=== PATIENT | female | born 1955 | race African-American/Black ===

== ENCOUNTER 2018-03-04 00:37 | Observation (INO) | payer OTHER, MEDICARE ==
[2018-03-04] MEDS: VANCOMYCIN 2 GM in IV 1/2 NORMAL SALINE 500 ML IV (02:30)
[2018-03-04] MEDS: PIPERACILLIN/TAZOBACTAM 2.25 GM in IV NORMAL SALINE 50ML 50 ML IV (02:57)
[2018-03-04 02:59] LABS: ADD MAN DIFF? NO
[2018-03-04 03:10] LABS: ANION GAP 14 (6-14); BLOOD UREA NITROGEN 23 mg/dL (7-20); BUN/CREATININE RATIO 3 (6-20); CALCIUM 8.3 mg/dL (8.5-10.1); CARBON DIOXIDE 25 mmol/L (21-32); CHLORIDE 91 mmol/L (98-107); CREATININE 8.9 mg/dL (0.6-1.0); GFR 5.4; GLUCOSE 99 mg/dL (70-99); POTASSIUM 3.1 mmol/L (3.5-5.1); SODIUM 130 mmol/L (136-145)
[2018-03-04 03:16] LABS: ALBUMIN 2.6 g/dL (3.4-5.0); ALBUMIN/GLOBULIN RATIO 0.5 (1.0-1.7); ALK PHOS 208 U/L (46-116); ALT (SGPT) 28 U/L (14-59); AST (SGOT) 81 U/L (15-37); TOTAL PROTEIN 7.9 g/dL (6.4-8.2)
[2018-03-04 03:21] LABS: TROPONINI < 0.017 ng/mL (0.000-0.055)
[2018-03-04 03:22] LABS: LACTIC ACID 2.6 mmol/L (0.4-2.0); NT-PRO BNP 4986 pg/mL (0-124)
[2018-03-04 03:28] LABS: BASO % 1 % (0-3); EOS # 0.1 x10^3/uL (0.0-0.7); EOS % 3 % (0-3); HEMATOCRIT 24.4 % (36.0-47.0); HEMOGLOBIN 8.5 g/dL (12.0-15.5); LYMPH # 0.8 x10^3/uL (1.0-4.8); LYMPH % 22 % (24-48); MEAN CORPUSCULAR HEMOGLOBIN 36 pg (25-35); MEAN CORPUSCULAR HGB CONC 35 g/dL (31-37); MEAN CORPUSCULAR VOLUME 105 fL (79-100); MONO # 0.5 x10^3/uL (0.0-1.1); MONO % 12 % (0-9); NEUT # 2.4 x10^3uL (1.8-7.7); NEUT % 62 % (31-73); PLATELET COUNT 186 x10^3/uL (140-400); RED BLOOD COUNT 2.33 x10^6/uL (3.50-5.40); RED CELL DISTRIBUTION WIDTH 16.4 % (11.5-14.5); WHITE BLOOD COUNT 3.8 x10^3/uL (4.0-11.0)
[2018-03-04 03:41] LABS: PROCALCITONIN 1.23 ng/mL (0.00-0.10)
[2018-03-04] MEDS: VANCOMYCIN PER PHARMACY MC (03:44)
[2018-03-04 07:56] LABS: LACTIC ACID 2.1 mmol/L (0.4-2.0)
[2018-03-04] MEDS: LACTOBACILLUS RHAMNOSUS GG 1 CAPSULE. PO ×2 (08:56→21:29)
[2018-03-04] MEDS: ONDANSETRON PF 4 MG/2 ML VIAL. IV (12:30)
[2018-03-04] MEDS ORDERED: IV NORMAL SALINE 1000ML BAG 1,000 ML IV (14:52)
[2018-03-04] MEDS ORDERED: DIALYSIS PATIENT. MC ×2 (15:00)
[2018-03-04 16:10] LABS: LIPASE 302 U/L (73-393)
[2018-03-04 16:10] LABS: CHOLESTEROL 148 mg/dL (0-200); HDLC 85 mg/dL (40-60); LDLC 45 mg/dL (0-100); NON-HDL CHOLESTEROL 63 mg/dL (0-129); TRIGLYCERIDES 88 mg/dL (0-150); VLDLC 18 mg/dL (0-40)
[2018-03-04 16:25] LABS: CHOLESTEROL/HDL RATIO 1.7
[2018-03-04] MEDS: amLODIPine BESYLATE 10 MG TABLET PO (18:06)
[2018-03-04] MEDS: PANTOPRAZOLE 40 MG TABLET.DR. PO (18:06)
[2018-03-04] MEDS: fentaNYL PF VIAL 100 MCG/2 ML VIAL IV ×2 (18:07→18:43)
[2018-03-05] MEDS: ONDANSETRON PF 4 MG/2 ML VIAL. IV (02:56)
[2018-03-05 03:54] LABS: HEMATOCRIT 24.7 % (36.0-47.0); HEMOGLOBIN 8.5 g/dL (12.0-15.5); MEAN CORPUSCULAR HEMOGLOBIN 37 pg (25-35); MEAN CORPUSCULAR HGB CONC 35 g/dL (31-37); MEAN CORPUSCULAR VOLUME 106 fL (79-100); PLATELET COUNT 129 x10^3/uL (140-400); RED BLOOD COUNT 2.33 x10^6/uL (3.50-5.40); RED CELL DISTRIBUTION WIDTH 16.2 % (11.5-14.5); WHITE BLOOD COUNT 4.5 x10^3/uL (4.0-11.0)
[2018-03-05 05:32] LABS: ALBUMIN 2.4 g/dL (3.4-5.0); ALBUMIN/GLOBULIN RATIO 0.5 (1.0-1.7); ALK PHOS 167 U/L (46-116); ALT (SGPT) 26 U/L (14-59); ANION GAP 8 (6-14); AST (SGOT) 78 U/L (15-37); BLOOD UREA NITROGEN 10 mg/dL (7-20); BUN/CREATININE RATIO 2 (6-20); CALCIUM 8.3 mg/dL (8.5-10.1); CARBON DIOXIDE 30 mmol/L (21-32); CHLORIDE 99 mmol/L (98-107); CREATININE 4.5 mg/dL (0.6-1.0); GFR 11.9; GLUCOSE 85 mg/dL (70-99); LIPASE 306 U/L (73-393); POTASSIUM 3.9 mmol/L (3.5-5.1); SODIUM 137 mmol/L (136-145); TOTAL BILIRUBIN 1.2 mg/dL (0.2-1.0); TOTAL PROTEIN 7.3 g/dL (6.4-8.2)
[2018-03-05 07:38] LABS: SEDIMENTATION RATE 86 (0-25)
[2018-03-05] MEDS: LACTOBACILLUS RHAMNOSUS GG 1 CAPSULE. PO ×2 (09:47→20:56)
[2018-03-05] MEDS: PANTOPRAZOLE 40 MG TABLET.DR. PO (09:47)
[2018-03-05] MEDS: CARVEDILOL 12.5 MG TABLET. PO (09:47)
[2018-03-05] MEDS: amLODIPine BESYLATE 10 MG TABLET PO (09:47)
[2018-03-05] MEDS: fentaNYL PF VIAL 100 MCG/2 ML VIAL IV (21:21)
[2018-03-06] MEDS: VANCOMYCIN RANDOM LEVEL. MC (02:30)
[2018-03-06 04:53] LABS: ANION GAP 8 (6-14); BLOOD UREA NITROGEN 17 mg/dL (7-20); CALCIUM 8.9 mg/dL (8.5-10.1); CARBON DIOXIDE 31 mmol/L (21-32); CHLORIDE 98 mmol/L (98-107); GFR 8.6; GLUCOSE 108 mg/dL (70-99); POTASSIUM 3.3 mmol/L (3.5-5.1); SODIUM 137 mmol/L (136-145)
[2018-03-06] MEDS: CARVEDILOL 12.5 MG TABLET. PO (08:57)
[2018-03-06] MEDS: LACTOBACILLUS RHAMNOSUS GG 1 CAPSULE. PO (08:57)
[2018-03-06] MEDS: PANTOPRAZOLE 40 MG TABLET.DR. PO (08:58)
[2018-03-06] MEDS: amLODIPine BESYLATE 10 MG TABLET PO (08:58)
[2018-03-06] MEDS ORDERED: diphenhydrAMINE 50 MG/ML VIAL IV ×2 (09:00)
[2018-03-06] MEDS ORDERED: DIALYSIS PATIENT. MC (09:00)
[2018-03-06] MEDS ORDERED: IV NORMAL SALINE 1000ML BAG 1,000 ML IV (09:00)
[2018-03-06] MEDS: VANCOMYCIN PER PHARMACY MC (10:09)
[2018-03-06] MEDS ORDERED: VANCOMYCIN 500 MG in IV NORMAL SALINE 100ML 100 ML IV (16:00)
== END 2018-03-06 14:00 | disposition home or self-care (01) ==
LOC: ER 00:37 → 5 SOUTH 01:45
DX: K80.10 Calculus of gallbladder with chronic cholecystitis without obstruction (principal); N18.6 End stage renal disease; I12.0 Hypertensive chronic kidney disease with stage 5 chronic kidney disease or end stage renal disease; J18.9 Pneumonia, unspecified organism; K76.0 Fatty (change of) liver, not elsewhere classified; E11.22 Type 2 diabetes mellitus with diabetic chronic kidney disease; B19.20 Unspecified viral hepatitis C without hepatic coma; K21.9 Gastro-esophageal reflux disease without esophagitis; E78.5 Hyperlipidemia, unspecified; Z99.2 Dependence on renal dialysis
CPT/HCPCS: 36415; 71045; 74176; 76700; 80048; 80053; 80061; 80202; 83605; 83690; 83880; 84145; 84484; 85025; 85027; 85651; 87040; 93005; 96365; 96366; 96368; 96375; 96376; 99285-25; G0378; G0379; J2405; J2543; J3010; J3370

== ENCOUNTER 2018-03-10 14:41 | Emergency (ER) | payer MEDICARE, OTHER ==
[2018-03-10 15:51] LABS: FECAL OB PT POSITIVE (NEG); NEG OBC FOB NEG; POS OBC FOB POS
== END 2018-03-10 18:16 | disposition home or self-care (01) ==
LOC: ER 14:41
DX: K64.9 Unspecified hemorrhoids (principal); E11.9 Type 2 diabetes mellitus without complications; I10 Essential (primary) hypertension; N19 Unspecified kidney failure; Z99.2 Dependence on renal dialysis; Z90.710 Acquired absence of both cervix and uterus
CPT/HCPCS: 82274; 99283

== ENCOUNTER 2018-03-12 10:25 | Inpatient (IN) | payer OTHER, MEDICARE ==
[~2018-03-12 10:25] MED LIST: IV RINGERS,LACTATED 1000ML 1,000 ML IV; LIDOCAINE 1% PF 2 ML VIAL. ID; MORPHINE SULFATE 4 MG/ML DISP.SYRIN. IV; ONDANSETRON PF 4 MG/2 ML VIAL. IV; PROCHLORPERAZINE 10 MG/2 ML VIAL. IV; fentaNYL PF VIAL 100 MCG/2 ML VIAL IV
[2018-03-12 11:28] LABS: ADD MAN DIFF? NO
[2018-03-12] MEDS ORDERED: LIDOCAINE 1% Multi-Dose 50 ML VIAL. (11:37)
[2018-03-12 11:38] LABS: BASO # 0.1 x10^3/uL (0.0-0.2); BASO % 1 % (0-3); EOS # 0.1 x10^3/uL (0.0-0.7); EOS % 1 % (0-3); HEMATOCRIT 28.2 % (36.0-47.0); HEMOGLOBIN 9.8 g/dL (12.0-15.5); LYMPH # 1.1 x10^3/uL (1.0-4.8); LYMPH % 14 % (24-48); MEAN CORPUSCULAR HEMOGLOBIN 37 pg (25-35); MEAN CORPUSCULAR HGB CONC 35 g/dL (31-37); MEAN CORPUSCULAR VOLUME 106 fL (79-100); MONO # 0.6 x10^3/uL (0.0-1.1); MONO % 9 % (0-9); NEUT # 5.6 x10^3uL (1.8-7.7); NEUT % 75 % (31-73); PLATELET COUNT 180 x10^3/uL (140-400); RED BLOOD COUNT 2.65 x10^6/uL (3.50-5.40); RED CELL DISTRIBUTION WIDTH 15.7 % (11.5-14.5); WHITE BLOOD COUNT 7.5 x10^3/uL (4.0-11.0)
[2018-03-12 11:41] LABS: ANION GAP 9 (6-14); BLOOD UREA NITROGEN 14 mg/dL (7-20); CALCIUM 9.2 mg/dL (8.5-10.1); CARBON DIOXIDE 30 mmol/L (21-32); CHLORIDE 93 mmol/L (98-107); CREATININE 5.8 mg/dL (0.6-1.0); GFR 8.9; GLUCOSE 134 mg/dL (70-99); POTASSIUM 3.5 mmol/L (3.5-5.1); SODIUM 132 mmol/L (136-145)
[2018-03-12 11:47] LABS: ALBUMIN 3.1 g/dL (3.4-5.0); TOTAL BILIRUBIN 1.1 mg/dL (0.2-1.0)
[2018-03-12] MEDS ORDERED: SEVOFLURANE 61 TO 120 MINUTES. IH (11:51)
[2018-03-12] MEDS ORDERED: ROCURONIUM 50 MG/5 ML VIAL. (11:52)
[2018-03-12] MEDS ORDERED: MIDAZOLAM HCL/PF 2 MG/2 ML VIAL. (11:52)
[2018-03-12] MEDS ORDERED: NEOSTIGMINE METHYLSULFATE 5 MG/5 ML SYRINGE. (11:52)
[2018-03-12] MEDS ORDERED: GLYCOPYRROLATE 1 MG/5 ML VIAL. (11:52)
[2018-03-12] MEDS ORDERED: fentaNYL PF VIAL 100 MCG/2 ML VIAL (11:52)
[2018-03-12] MEDS ORDERED: PROPOFOL 20 ML IV (11:53)
[2018-03-12] MEDS ORDERED: LIDOCAINE 2% PF Vial for OR 5 ML VIAL. (11:53)
[2018-03-12] MEDS ORDERED: KETOROLAC 30 MG/ML INJ FOR OR. INJ (11:53)
[2018-03-12] MEDS ORDERED: DEXAMETHASONE SOD PHOS 20 MG/5 ML VIAL. (11:53)
[2018-03-12] MEDS ORDERED: ONDANSETRON PF 4 MG/2 ML VIAL. (11:53)
[2018-03-12 11:55] LABS: INR 1.2 (0.8-1.1); PARTIAL THROMBOPLASTIN TIME 29 SEC (24-38); PROTHROMBIN TIME PATIENT 14.4 SEC (11.7-14.0)
[2018-03-12] MEDS ORDERED: ceFAZolin 2GM PREMIX 2 GM/50 ML BAG IV (12:00)
[2018-03-12] MEDS: IV RINGERS,LACTATED 1000ML 1,000 ML IV (12:00)
[2018-03-12] MEDS: IOHEXOL 300 MG/ML 100ML VIAL. (14:45)
[2018-03-12] MEDS: BUPIVAC MPF-EPI 0.5%-1:200000 30 ML VIAL. INJ (14:45)
[2018-03-12] MEDS ORDERED: PHENYLEPHRINE in 0.9% NACL PF 1 MG/10 ML SYRINGE. IV (14:48)
[2018-03-12] MEDS: SURGICEL HEMOSTAT 4X8 EACH. (15:19)
[2018-03-12 16:06] LABS: POC GLUCOSE 120 mg/dL (70-99)
[2018-03-12] MEDS ORDERED: hydrALAZINE 20 MG/ML VIAL. (16:42)
[2018-03-12] MEDS: hydrALAZINE 20 MG/ML VIAL. IVP ×2 (16:45→17:07)
[2018-03-12] MEDS ORDERED: 0.9 % SODIUM CHLORIDE 10 ML DISP.SYRIN. IV (16:45)
[2018-03-12] MEDS ORDERED: diphenhydrAMINE 50 MG/ML VIAL IV (16:45)
[2018-03-12] MEDS ORDERED: MORPHINE SULFATE 2 MG/ML DISP.SYRIN. IV (16:45)
[2018-03-12] MEDS ORDERED: DEXTROSE 50% 25 GM / 50ML DISP.SYRIN. IV (16:45)
[2018-03-12] MEDS ORDERED: ONDANSETRON PF 4 MG/2 ML VIAL. IV (16:45)
[2018-03-12] MEDS: fentaNYL PF VIAL 100 MCG/2 ML VIAL IV (17:06)
[2018-03-12] MEDS: IV 1/2 NORMAL SALINE 1,000 ML IV (18:00)
[2018-03-12] MEDS: CARVEDILOL 12.5 MG TABLET. PO (18:14)
[2018-03-12] MEDS: HYDROcodone/APAP 5/325MG 1 TAB TABLET PO ×2 (18:15→22:23)
[2018-03-12 19:11] LABS: POC GLUCOSE 139 mg/dL (70-99)
[2018-03-12 20:26] LABS: POC GLUCOSE 141 mg/dL (70-99)
[2018-03-12] MEDS: LACTOBACILLUS RHAMNOSUS GG 1 CAPSULE. PO (22:23)
[2018-03-13] MEDS: PANTOPRAZOLE 40 MG TABLET.DR. PO (06:52)
[2018-03-13] MEDS: HYDROcodone/APAP 5/325MG 1 TAB TABLET PO ×3 (06:52→23:09)
[2018-03-13] MEDS: HEPARIN PF for SUB-Q USE 5,000 UNIT/0.5 ML VIAL. SQ ×3 (06:58→23:16)
[2018-03-13 08:19] LABS: POC GLUCOSE 134 mg/dL (70-99)
[2018-03-13] MEDS: LACTOBACILLUS RHAMNOSUS GG 1 CAPSULE. PO ×2 (08:55→21:32)
[2018-03-13] MEDS: CARVEDILOL 12.5 MG TABLET. PO ×2 (08:55→18:02)
[2018-03-13] MEDS: amLODIPine BESYLATE 10 MG TABLET PO (08:56)
[2018-03-13] MEDS ORDERED: NON FORMULARY ITEM (Metoprolol Succinate (Toprol Xl) 1 TAB) PO (09:00)
[2018-03-13] MEDS ORDERED: IV NORMAL SALINE 1000ML BAG 1,000 ML IV ×2 (12:20)
[2018-03-13 12:21] LABS: POC GLUCOSE 126 mg/dL (70-99)
[2018-03-13] MEDS ORDERED: DIALYSIS PATIENT. MC ×2 (12:30)
[2018-03-13] MEDS: IV 1/2 NORMAL SALINE 1,000 ML IV (14:00)
[2018-03-13] MEDS ORDERED: MORPHINE SULFATE 4 MG/ML DISP.SYRIN. IV (17:23)
[2018-03-13 18:27] LABS: POC GLUCOSE 117 mg/dL (70-99)
[2018-03-13] MEDS ORDERED: PHENYLEPH/MINERAL OIL/PETROLAT RECTAL OINTMENT 28GM TUBE. RC (19:45)
[2018-03-13] MEDS: diphenhydrAMINE HCL 25 MG CAPSULE PO (21:32)
[2018-03-14] MEDS: PANTOPRAZOLE 40 MG TABLET.DR. PO (06:15)
[2018-03-14] MEDS: HYDROcodone/APAP 5/325MG 1 TAB TABLET PO ×2 (06:16→10:30)
[2018-03-14] MEDS: HEPARIN PF for SUB-Q USE 5,000 UNIT/0.5 ML VIAL. SQ ×2 (06:19→14:00)
[2018-03-14] MEDS: CARVEDILOL 12.5 MG TABLET. PO (08:00)
[2018-03-14] MEDS: LACTOBACILLUS RHAMNOSUS GG 1 CAPSULE. PO (08:09)
[2018-03-14] MEDS: diphenhydrAMINE HCL 25 MG CAPSULE PO (08:09)
[2018-03-14] MEDS: amLODIPine BESYLATE 10 MG TABLET PO (09:12)
[2018-03-14] MEDS: IV 1/2 NORMAL SALINE 1,000 ML IV (10:00)
== END 2018-03-14 15:00 | disposition home or self-care (01) | DRG 417 ==
LOC: SURG 10:25 → 4 NORTH 17:42
PROC: 0FT44ZZ Resection of Gallbladder, Percutaneous Endoscopic Approach (ICD-10-PCS; principal; 2018-03-12 13:00)
DX: K80.20 Calculus of gallbladder without cholecystitis without obstruction (principal); N18.6 End stage renal disease; E11.22 Type 2 diabetes mellitus with diabetic chronic kidney disease; I12.0 Hypertensive chronic kidney disease with stage 5 chronic kidney disease or end stage renal disease; E78.5 Hyperlipidemia, unspecified; K21.9 Gastro-esophageal reflux disease without esophagitis; E66.9 Obesity, unspecified; E21.3 Hyperparathyroidism, unspecified; M06.9 Rheumatoid arthritis, unspecified; Z90.710 Acquired absence of both cervix and uterus; Z99.2 Dependence on renal dialysis
CPT/HCPCS: 36415; 80048; 82040; 82247; 82962; 85025; 85610; 85730; 88304; 97116-GP; 97162-GP; 97165-GO; A7015; J0360; J0690; J1100; J1885; J2250; J2370; J2405; J2704; J2710; J3010; J3490; J7030; Q0163; Q9967

== ENCOUNTER 2018-05-27 15:42 | Inpatient (IN) | payer OTHER ==
[2018-05-27 16:06] LABS: BILIRUBIN,URINE NEGATIVE (NEG); CLARITY,URINE TURBID; COLOR,URINE YELLOW; GLUCOSE,URINE NEGATIVE (NEG); NITRITE,URINE NEGATIVE (NEG); PROTEIN,URINE 100 mg/dL (NEG-TRACE); UROBILINOGEN,URINE 0.2 mg/dL (0.2 mg/dL)
[2018-05-27 16:13] LABS: BACTERIA,URINE MANY /HPF (0-FEW); SQUAMOUS EPITHELIAL CELL,UR MANY /LPF; WBC,URINE >40 /HPF (0-4)
[2018-05-27] MEDS: ONDANSETRON PF 4 MG/2 ML VIAL. IV (16:26)
[2018-05-27 16:32] LABS: ADD MAN DIFF? NO
[2018-05-27 16:36] LABS: BASO # 0.1 x10^3/uL (0.0-0.2); BASO % 1 % (0-3); EOS % 1 % (0-3); HEMOGLOBIN 11.3 g/dL (12.0-15.5); LYMPH # 0.9 x10^3/uL (1.0-4.8); LYMPH % 19 % (24-48); MEAN CORPUSCULAR HEMOGLOBIN 37 pg (25-35); MEAN CORPUSCULAR HGB CONC 34 g/dL (31-37); MEAN CORPUSCULAR VOLUME 110 fL (79-100); MONO # 0.4 x10^3/uL (0.0-1.1); MONO % 9 % (0-9); NEUT # 3.4 x10^3uL (1.8-7.7); NEUT % 71 % (31-73); PLATELET COUNT 178 x10^3/uL (140-400); RED BLOOD COUNT 3.01 x10^6/uL (3.50-5.40); WHITE BLOOD COUNT 4.8 x10^3/uL (4.0-11.0)
[2018-05-27 16:51] LABS: ANION GAP 12 (6-14); BLOOD UREA NITROGEN 17 mg/dL (7-20); BUN/CREATININE RATIO 2 (6-20); CALCIUM 9.3 mg/dL (8.5-10.1); CARBON DIOXIDE 28 mmol/L (21-32); CHLORIDE 87 mmol/L (98-107); CREATININE 7.8 mg/dL (0.6-1.0); GFR 6.3; GLUCOSE 103 mg/dL (70-99); POTASSIUM 3.8 mmol/L (3.5-5.1); SODIUM 127 mmol/L (136-145)
[2018-05-27 16:57] LABS: ALBUMIN 2.5 g/dL (3.4-5.0); ALBUMIN/GLOBULIN RATIO 0.4 (1.0-1.7); ALK PHOS 224 U/L (46-116); AST (SGOT) 59 U/L (15-37); TOTAL BILIRUBIN 0.7 mg/dL (0.2-1.0); TOTAL PROTEIN 8.1 g/dL (6.4-8.2)
[2018-05-27 17:15] LABS: ALT (SGPT) 25 U/L (14-59)
[2018-05-27] MEDS: fentaNYL PF VIAL 100 MCG/2 ML VIAL IV ×2 (17:25→21:38)
[2018-05-27] MEDS ORDERED: ACETAMINOPHEN 500 MG TABLET PO (17:30)
[2018-05-27] MEDS ORDERED: ONDANSETRON PF 4 MG/2 ML VIAL. IV (17:30)
[2018-05-27] MEDS ORDERED: LABETALOL 20 MG/4 ML DISP.SYRIN. IVP (17:30)
[2018-05-27] MEDS: IV NORMAL SALINE 1000ML BAG 1,000 ML IV (18:10)
[2018-05-27] MEDS: LACTOBACILLUS RHAMNOSUS GG 1 CAPSULE. PO (21:40)
[2018-05-28] MEDS: ACETAMINOPHEN/CODEINE 300/30MG TABLET. PO ×2 (00:38→08:53)
[2018-05-28] MEDS: IV NORMAL SALINE 1000ML BAG 1,000 ML IV ×3 (05:33→23:45)
[2018-05-28 06:37] LABS: ADD MAN DIFF? NO
[2018-05-28 07:03] LABS: ANION GAP 11 (6-14); BASO % 1 % (0-3); BLOOD UREA NITROGEN 21 mg/dL (7-20); CALCIUM 8.3 mg/dL (8.5-10.1); CARBON DIOXIDE 27 mmol/L (21-32); CHLORIDE 90 mmol/L (98-107); CREATININE 7.9 mg/dL (0.6-1.0); EOS # 0.1 x10^3/uL (0.0-0.7); EOS % 2 % (0-3); GFR 6.2; GLUCOSE 83 mg/dL (70-99); HEMATOCRIT 31.2 % (36.0-47.0); HEMOGLOBIN 10.8 g/dL (12.0-15.5); LYMPH % 25 % (24-48); MEAN CORPUSCULAR HEMOGLOBIN 38 pg (25-35); MEAN CORPUSCULAR HGB CONC 35 g/dL (31-37); MEAN CORPUSCULAR VOLUME 110 fL (79-100); MONO # 0.4 x10^3/uL (0.0-1.1); MONO % 11 % (0-9); NEUT # 2.4 x10^3uL (1.8-7.7); NEUT % 61 % (31-73); PLATELET COUNT 157 x10^3/uL (140-400); RED BLOOD COUNT 2.83 x10^6/uL (3.50-5.40); RED CELL DISTRIBUTION WIDTH 17.2 % (11.5-14.5); SODIUM 128 mmol/L (136-145)
[2018-05-28 08:07] LABS: ANISOCYTOSIS PRESENT
[2018-05-28 08:30] LABS: PLT ESTIMATE ADEQUATE (ADEQUATE)
[2018-05-28 08:40] LABS: POC GLUCOSE 82 mg/dL (70-99)
[2018-05-28] MEDS: amLODIPine BESYLATE 10 MG TABLET PO (08:53)
[2018-05-28] MEDS: LACTOBACILLUS RHAMNOSUS GG 1 CAPSULE. PO ×2 (08:53→20:45)
[2018-05-28] MEDS: PANTOPRAZOLE 40 MG TABLET.DR. PO (08:53)
[2018-05-28] MEDS: CARVEDILOL 12.5 MG TABLET. PO ×2 (08:54→17:01)
[2018-05-28] MEDS: HYDROcodone/APAP 5/325MG 1 TAB TABLET PO ×2 (08:58→19:54)
[2018-05-28] MEDS ORDERED: NON FORMULARY ITEM (Metoprolol Succinate (Toprol Xl) 1 TAB) PO (09:00)
[2018-05-28 12:11] LABS: POC GLUCOSE 125 mg/dL (70-99)
[2018-05-28] MEDS: cefTRIAXone IV Push 2 GM VIAL. IVP (17:02)
[2018-05-28 17:25] LABS: POC GLUCOSE 127 mg/dL (70-99)
[2018-05-28] MEDS ORDERED: CEFTRIAXONE SODIUM IV (17:30)
[2018-05-28] MEDS ORDERED: DEXTROSE 5% IV (17:30)
[2018-05-28 21:23] LABS: POC GLUCOSE 122 mg/dL (70-99)
[2018-05-29] MEDS: HYDROcodone/APAP 5/325MG 1 TAB TABLET PO ×2 (01:48→08:38)
[2018-05-29] MEDS: ONDANSETRON PF 4 MG/2 ML VIAL. IV (06:47)
[2018-05-29 07:50] LABS: ADD MAN DIFF? NO
[2018-05-29 08:10] LABS: BASO % 1 % (0-3); EOS # 0.1 x10^3/uL (0.0-0.7); EOS % 3 % (0-3); HEMATOCRIT 33.6 % (36.0-47.0); HEMOGLOBIN 11.3 g/dL (12.0-15.5); LYMPH # 0.7 x10^3/uL (1.0-4.8); LYMPH % 22 % (24-48); MEAN CORPUSCULAR HEMOGLOBIN 38 pg (25-35); MEAN CORPUSCULAR HGB CONC 34 g/dL (31-37); MEAN CORPUSCULAR VOLUME 112 fL (79-100); MONO # 0.3 x10^3/uL (0.0-1.1); MONO % 9 % (0-9); NEUT % 66 % (31-73); PLATELET COUNT 129 x10^3/uL (140-400); RED BLOOD COUNT 3.01 x10^6/uL (3.50-5.40); RED CELL DISTRIBUTION WIDTH 16.5 % (11.5-14.5)
[2018-05-29 08:18] LABS: ANION GAP 13 (6-14); BLOOD UREA NITROGEN 26 mg/dL (7-20); CALCIUM 8.2 mg/dL (8.5-10.1); CARBON DIOXIDE 22 mmol/L (21-32); CHLORIDE 93 mmol/L (98-107); CREATININE 8.5 mg/dL (0.6-1.0); GFR 5.7; GLUCOSE 109 mg/dL (70-99); POTASSIUM 3.8 mmol/L (3.5-5.1); SODIUM 128 mmol/L (136-145)
[2018-05-29] MEDS ORDERED: IV NORMAL SALINE 1000ML BAG 1,000 ML IV ×2 (08:23)
[2018-05-29] MEDS ORDERED: DIALYSIS PATIENT. MC (08:30)
[2018-05-29] MEDS ORDERED: diphenhydrAMINE 50 MG/ML VIAL IV ×2 (08:30)
[2018-05-29] MEDS ORDERED: 0.9 % SODIUM CHLORIDE 10 ML DISP.SYRIN. IV ×2 (08:30)
[2018-05-29] MEDS: PROCHLORPERAZINE 10 MG/2 ML VIAL. IV (08:37)
[2018-05-29] MEDS: PANTOPRAZOLE 40 MG TABLET.DR. PO (08:38)
[2018-05-29] MEDS: LACTOBACILLUS RHAMNOSUS GG 1 CAPSULE. PO ×2 (08:38→20:55)
[2018-05-29] MEDS: IV NORMAL SALINE 1000ML BAG 1,000 ML IV (09:45)
[2018-05-29 11:22] LABS: POC GLUCOSE 102 mg/dL (70-99)
[2018-05-29 11:25] LABS: POC GLUCOSE 98 mg/dL (70-99)
[2018-05-29] MEDS: amLODIPine BESYLATE 10 MG TABLET PO (14:32)
[2018-05-29] MEDS: CARVEDILOL 12.5 MG TABLET. PO ×2 (14:33→15:19)
[2018-05-29] MEDS: cefTRIAXone IV Push 2 GM VIAL. IVP (16:58)
[2018-05-29 17:15] LABS: POC GLUCOSE 124 mg/dL (70-99)
[2018-05-29] MEDS: BISACODYL 10 MG SUPP.RECT. PR (19:41)
[2018-05-29 21:11] LABS: POC GLUCOSE 77 mg/dL (70-99)
[2018-05-30] MEDS: HYDROcodone/APAP 5/325MG 1 TAB TABLET PO (01:36)
[2018-05-30 06:07] LABS: ADD MAN DIFF? NO
[2018-05-30 06:26] LABS: BASO % 1 % (0-3); EOS # 0.1 x10^3/uL (0.0-0.7); EOS % 2 % (0-3); HEMATOCRIT 29.4 % (36.0-47.0); HEMOGLOBIN 9.9 g/dL (12.0-15.5); LYMPH # 1.1 x10^3/uL (1.0-4.8); LYMPH % 22 % (24-48); MEAN CORPUSCULAR HEMOGLOBIN 38 pg (25-35); MEAN CORPUSCULAR HGB CONC 34 g/dL (31-37); MEAN CORPUSCULAR VOLUME 113 fL (79-100); MONO # 0.6 x10^3/uL (0.0-1.1); MONO % 12 % (0-9); NEUT % 63 % (31-73); PLATELET COUNT 107 x10^3/uL (140-400); RED BLOOD COUNT 2.61 x10^6/uL (3.50-5.40); RED CELL DISTRIBUTION WIDTH 16.7 % (11.5-14.5); WHITE BLOOD COUNT 4.8 x10^3/uL (4.0-11.0)
[2018-05-30 06:43] LABS: ANION GAP 7 (6-14); BLOOD UREA NITROGEN 12 mg/dL (7-20); CALCIUM 8.2 mg/dL (8.5-10.1); CARBON DIOXIDE 30 mmol/L (21-32); CHLORIDE 98 mmol/L (98-107); GFR 10.5; GLUCOSE 106 mg/dL (70-99); POTASSIUM 3.7 mmol/L (3.5-5.1); SODIUM 135 mmol/L (136-145)
[2018-05-30 08:21] LABS: POC GLUCOSE 101 mg/dL (70-99)
== END 2018-05-30 09:45 | disposition home or self-care (01) | DRG 689 ==
LOC: ER 15:42 → 6 SOUTH 17:23
PROC: 5A1D70Z Performance of Urinary Filtration, Intermittent, Less than 6 Hours Per Day (ICD-10-PCS; principal; 2018-05-29)
DX: N39.0 Urinary tract infection, site not specified (principal); N18.6 End stage renal disease; K22.6 Gastro-esophageal laceration-hemorrhage syndrome; K76.6 Portal hypertension; E87.1 Hypo-osmolality and hyponatremia; I12.0 Hypertensive chronic kidney disease with stage 5 chronic kidney disease or end stage renal disease; D63.1 Anemia in chronic kidney disease; E11.22 Type 2 diabetes mellitus with diabetic chronic kidney disease; E21.3 Hyperparathyroidism, unspecified; E66.9 Obesity, unspecified; E78.5 Hyperlipidemia, unspecified; E86.0 Dehydration; G89.29 Other chronic pain; I25.10 Atherosclerotic heart disease of native coronary artery without angina pectoris; K21.9 Gastro-esophageal reflux disease without esophagitis; K42.9 Umbilical hernia without obstruction or gangrene; K59.00 Constipation, unspecified; K74.60 Unspecified cirrhosis of liver; K76.0 Fatty (change of) liver, not elsewhere classified; M06.9 Rheumatoid arthritis, unspecified; N20.0 Calculus of kidney; Z68.34 Body mass index [BMI] 34.0-34.9, adult; Z83.3 Family history of diabetes mellitus; Z90.710 Acquired absence of both cervix and uterus; Z91.15 Patient's noncompliance with renal dialysis; Z99.2 Dependence on renal dialysis
CPT/HCPCS: 36415; 74176; 80048; 80053; 81001; 82533; 82962; 85025; 87086; 96361; 96365; 96366; 96375; 97161-GP; 97166-GO; 99285; 99285-25; J0690; J0696; J0780; J2405; J3010; J7030

== ENCOUNTER 2018-09-30 09:39 | Inpatient (IN) | payer OTHER ==
[~2018-09-30] VITALS: Ht 160 cm; Wt 82.6 kg
[~2018-09-30 09:39] MED LIST changes: +AMLO10TA6 PO; +AMOX1TAB61 PO; +CARV25TA PO; +CARV25TA2 PO; +CIPR250T30 PO; +FERR325T72 PO; +HYDR-2761 PO; -IV RINGERS,LACTATED 1000ML 1,000 ML IV; +LACT1CAP19 PO; -LIDOCAINE 1% PF 2 ML VIAL. ID; +METO-269 PO; -MORPHINE SULFATE 4 MG/ML DISP.SYRIN. IV; -ONDANSETRON PF 4 MG/2 ML VIAL. IV; +OXYC1TAB19 PO; +PANT40TA5 PO; +POLY17PO29 PO; -PROCHLORPERAZINE 10 MG/2 ML VIAL. IV; +Pantoprazole PO; +VIT1TABL57 PO; -fentaNYL PF VIAL 100 MCG/2 ML VIAL IV
--- NOTE | 2018-09-30 09:56 | PHYS DOC ---
Past Medical History Past Medical History: Diabetes-Type II, GI Bleed, Hypertension, Renal Failure, Other Additional Past Medical Histor: DIARRHEA Past Surgical History: Hysterectomy, Tonsillectomy Additional Past Surgical Histo: RT KNEE, SHUNT RIGHT CHEST, dialysis graft Alcohol Use: Occasionally Drug Use: None Adult General HPI HPI Patient is a 63-year-old female with a past history of hypertension, as well as ESRD on hemodialysis Saturday and Saturday. She states that for the past 24 hours she has had several episodes of vomiting and diarrhea, as well as abdominal distention and generalized abdominal discomfort. She has not had any bloody emesis or stools. She denies any chest pain or shortness of breath. She has not had any fevers or chills, and denies a cough. There are no alleviating or exacerbating factors to the patient's symptoms. The patient did, however, missed her last dialysis on Saturday. Her last actual dialysis session was this past . She was due for hemodialysis today. Review of Systems Review of Systems Constitutional: Denies fever or chills [] Eyes: Denies change in visual acuity, redness, or eye pain [] HENT: Denies nasal congestion or sore throat [] Respiratory: Denies cough or shortness of breath [] Cardiovascular: The patient denies any shortness of breath, chest pain, palpitations, or orthopnea [] GI: No additional information not addressed in HPI [] : Denies dysuria or hematuria [] Musculoskeletal: Denies back pain or joint pain [] Integument: Denies rash or skin lesions [] Neurologic: Denies headache, focal weakness or sensory changes [] Endocrine: Denies polyuria or polydipsia [] All other systems were reviewed and found to be within normal limits, except as documented in this note. Current Medications Current Medications Current Medications Medications (Trade) Dose Ordered Sig/Kimberly Start Time Stop Time Status Last Admin Dose Admin Iohexol (Omnipaque 300 Mg/ml) 60 ml 1X ONCE 09/30/18 10:45 09/30/18 10:47 DC 09/30/18 10:42 60 ML Ondansetron HCl (Zofran) 4 mg 1X ONCE 09/30/18 10:00 09/30/18 10:02 DC 09/30/18 10:13 4 MG Sodium Chloride 250 ml @ 250 mls/hr 1X ONCE 09/30/18 10:00 09/30/18 10:59 DC 09/30/18 10:13 250 MLS/HR Allergies Allergies Allergies Coded Allergies Type Severity Reaction Last Updated Verified No Known Drug Allergies 03/12/18 No Physical Exam Physical Exam PHYSICAL EXAM: CONSTITUTIONAL: Well developed, well nourished HEAD: normocephalic, atraumatic EENT: PERRL, EOMI. Conjunctivae normal color, sclerae non-icteric; moist mucous membranes. NECK: Supple, non-tender; no meningismus. LUNGS: Lungs CTA, breathing even and unlabored. Normal air movement. HEART: Regular rate and rhythm, no murmur CHEST: No deformity; non-tender ABDOMEN: The abdomen is soft, moderately distended, with slightly diminished and questionably high-pitched bowel sounds, diffusely tender, without focal tenderness, rebound, or guarding, no masses or bruits. EXTREM: Normal ROM; no deformity, no calf tenderness. Normal pulses palpable in all extremities. There is mild bilateral pedal edema. SKIN: No rash; no diaphoresis NEURO: Alert; normal speech and cognition; CN's grossly intact; strength grossly intact without focal deficit. BACK: No CVA TTP. Current Patient Data Vital Signs Vital Signs Date Time Temp Pulse Resp B/P (MAP) Pulse Ox O2 Delivery O2 Flow Rate FiO2 09/30/18 09:41 98.3 110 22 195/96 (129) 95 Room Air 98.3 Lab Values Laboratory Tests Test 09/30/18 10:03 09/30/18 10:45 POC Hemoglobin 10.2 g/dL (12-15) L POC Hematocrit 30 % (36-40) L POC Sodium 123 mmol/L (135-145) L POC Potassium 4.1 mmol/L (3.5-5.0) POC Chloride 84 mmol/L (98-110) L POC Total CO2 28 mmol/L (23-32) Anion Gap 17 mmol/L (6-14) H 13 (6-14) POC Blood Urea Nitrogen 40 mg/dL (8-26) H POC Creatinine 8.3 mg/dL (0.5-1.4) H Glucose Level 121 mg/dL (70-99) H 109 mg/dL (70-99) H POC Ionized Calcium (Hayde) 0.97 mmol/L (1.13-1.32) L White Blood Count 6.5 x10^3/uL (4.0-11.0) Red Blood Count 2.38 x10^6/uL (3.50-5.40) L Hemoglobin 9.3 g/dL (12.0-15.5) L Hematocrit 26.2 % (36.0-47.0) L Mean Corpuscular Volume 110 fL (79-100) H Mean Corpuscular Hemoglobin 39 pg (25-35) H Mean Corpuscular Hemoglobin Concent 35 g/dL (31-37) Red Cell Distribution Width 15.5 % (11.5-14.5) H Platelet Count 120 x10^3/uL (140-400) L Neutrophils (%) (Auto) 83 % (31-73) H Lymphocytes (%) (Auto) 8 % (24-48) L Monocytes (%) (Auto) 8 % (0-9) Eosinophils (%) (Auto) 0 % (0-3) Basophils (%) (Auto) 1 % (0-3) Neutrophils # (Auto) 5.4 x10^3uL (1.8-7.7) Lymphocytes # (Auto) 0.5 x10^3/uL (1.0-4.8) L Monocytes # (Auto) 0.5 x10^3/uL (0.0-1.1) Eosinophils # (Auto) 0.0 x10^3/uL (0.0-0.7) Basophils # (Auto) 0.0 x10^3/uL (0.0-0.2) Platelet Estimate Decreased (ADEQUATE) Large Platelets Occ Anisocytosis Slight Macrocytosis Slight Prothrombin Time 13.9 SEC (11.7-14.0) Prothrombin Time INR 1.1 (0.8-1.1) Sodium Level 124 mmol/L (136-145) L Potassium Level 3.8 mmol/L (3.5-5.1) Chloride Level 86 mmol/L (98-107) L Carbon Dioxide Level 25 mmol/L (21-32) Blood Urea Nitrogen 37 mg/dL (7-20) H Creatinine 8.1 mg/dL (0.6-1.0) H Estimated GFR (Cockcroft-Gault) 6.0 BUN/Creatinine Ratio 5 (6-20) L Calcium Level 8.6 mg/dL (8.5-10.1) Total Bilirubin 1.1 mg/dL (0.2-1.0) H Aspartate Amino Transferase (AST) 71 U/L (15-37) H Alanine Aminotransferase (ALT) 22 U/L (14-59) Alkaline Phosphatase 253 U/L (46-116) H Creatine Kinase 66 U/L (26-192) Creatine Kinase MB (Mass) 1.2 ng/mL (0.0-3.6) Creatine Kinase MB Relative Index % (0-4) Troponin I Quantitative < 0.017 ng/mL (0.000-0.055) Total Protein 8.3 g/dL (6.4-8.2) H Albumin 2.6 g/dL (3.4-5.0) L Albumin/Globulin Ratio 0.5 (1.0-1.7) L Lipase 118 U/L (73-393) Laboratory Tests 09/30/18 10:45 Laboratory Tests 09/30/18 10:03 09/30/18 10:45 EKG EKG [Sinus tachycardia at a rate of 108 bpm, normal axis, normal intervals, normal T waves, there are no acute ischemic ST/T changes] Radiology/Procedures Radiology/Procedures [PROCEDURE: PORTABLE CHEST 1V Portable chest, 09/30/2018: HISTORY: Weakness, nausea and vomiting Comparison is made to a study from 04/21/2018. The heart is at the upper limits of normal in size. There is calcific plaquing of the aorta. The pulmonary vascularity is at the upper limits of normal. No pulmonary infiltrate is seen. There is no evidence of pleural fluid. IMPRESSION: No acute cardiopulmonary abnormality is detected.] PROCEDURE: CT ABD PELV W/ IV CONTRST ONLY CT of the abdomen and pelvis with contrast, 09/30/2018: HISTORY: Abdominal pain, vomiting, diarrhea Multidetector CT imaging was performed following an IV bolus injection of iodinated contrast material. No oral contrast material was administered for this study. Comparison is made to an exam from 05/27/2018. Small bilateral pleural effusions have developed. The hepatic contour is irregular compatible with cirrhosis. No hepatic mass is evident. The gallbladder is surgically absent. There is a recanalized umbilical vein with mild anterior abdominal wall varices. There is minimal ascites in the abdomen and pelvis. No pancreatic mass is evident. The spleen is of normal size. The kidneys show no evidence of obstruction. There is a small nonobstructing calculus in the lower pole of the right kidney. There is mild bilateral perinephric edema, similar to that seen on 05/27/2018. Aortoiliac calcific plaquing is present without evidence of aneurysm. No abdominal or pelvic adenopathy is seen. The bowel loops are not dilated. A portion of the appendix is visualized and it is unremarkable. There is mild streaky edema in the mesentery. No free air is evident in the abdomen or pelvis. A small fat-containing umbilical hernia is again noted. There are moderate scattered degenerative changes in the spine. An intramedullary fermin is present in the right femur. IMPRESSION: 1. Small bilateral pleural effusions have developed. 2. Hepatic cirrhosis with recanalized umbilical vein collateral vessels in the anterior abdominal wall. 3. Mild streaky mesenteric edema with a small amount of ascites in the abdomen and pelvis likely secondary to liver disease with portal hypertension. 4. Nonobstructing right intrarenal calculus. 5. Small fat-containing umbilical hernia. Course & Med Decision Making Course & Med Decision Making Pertinent Labs and Imaging studies reviewed. (See chart for details) [11:30 AM:The patient's condition remains stable. I spoke with the hospitalist , who accepted the patient to the hospital for further evaluation and treatment. ] Dragon Disclaimer Dragon Disclaimer This electronic medical record was generated, in whole or in part, using a voice recognition dictation system. Departure Departure Impression: Primary Impression: Nausea vomiting and diarrhea Additional Impressions: Hyponatremia ESRD (end stage renal disease) Disposition: ADMITTED INPATIENT Admitting Physician: Douglas Jacobo Condition: STABLE Referrals: NO PCP (PCP) Problem Qualifiers JANETT GARCIA MD Sep 30, 2018 09:56
[2018-09-30] MEDS ORDERED: ONDANSETRON PF 4 MG/2 ML VIAL. IV ONE (10:00)
[2018-09-30] MEDS ORDERED: IV NORMAL SALINE 500ML BAG 250 ML IV ONE (10:00)
[2018-09-30 10:09] LABS: CREATININE ISTAT 8.3 mg/dL (0.5-1.4); HEMOGLOBIN ISTAT 10.2 g/dL (12-15); ION CA ISTAT 0.97 mmol/L (1.13-1.32); POTASSIUM ISTAT 4.1 mmol/L (3.5-5.0)
--- NOTE | 2018-09-30 10:11 | EKG ---
[facility] [address] [place] [address] Test Date: 2018-09-30 Test Time: 09:54:59 Pat Name: CESAR AGEE Department: Room: Gender: F Inspector Balance Bridge: DIANE : 1955 Requested By: JANETT GARCIA Order Number: [id number] Reading MD: Measurements Intervals Vanduser Rate: 108 P: 52 FL: 164 QRS: 51 QRSD: 78 T: 41 QT: 344 QTc: 465 Interpretive Statements SINUS TACHYCARDIA NO SPECIFIC ECG ABNORMALITIES RI6.01 No previous ECG available for comparison
--- NOTE | 2018-09-30 10:37 | RAD ---
Portable chest, 09/30/2018: HISTORY: Weakness, nausea and vomiting Comparison is made to a study from 04/21/2018. The heart is at the upper limits of normal in size. There is calcific plaquing of the aorta. The pulmonary vascularity is at the upper limits of normal. No pulmonary infiltrate is seen. There is no evidence of pleural fluid. IMPRESSION: No acute cardiopulmonary abnormality is detected. Electronically signed by: King Cordero MD (09/30/2018 10:33 AM) [facility]
[2018-09-30] MEDS ORDERED: IOHEXOL 300 MG/ML 100ML VIAL. IV ONE (10:45)
[2018-09-30 11:14] LABS: BASO % 1 % (0-3); EOS % 0 % (0-3); HEMATOCRIT 26.2 % (36.0-47.0); HEMOGLOBIN 9.3 g/dL (12.0-15.5); LYMPH # 0.5 x10^3/uL (1.0-4.8); LYMPH % 8 % (24-48); MEAN CORPUSCULAR HEMOGLOBIN 39 pg (25-35); MEAN CORPUSCULAR HGB CONC 35 g/dL (31-37); MEAN CORPUSCULAR VOLUME 110 fL (79-100); MONO # 0.5 x10^3/uL (0.0-1.1); MONO % 8 % (0-9); NEUT # 5.4 x10^3uL (1.8-7.7); NEUT % 83 % (31-73); PLATELET COUNT 120 x10^3/uL (140-400); RED BLOOD COUNT 2.38 x10^6/uL (3.50-5.40); RED CELL DISTRIBUTION WIDTH 15.5 % (11.5-14.5); WHITE BLOOD COUNT 6.5 x10^3/uL (4.0-11.0)
--- NOTE | 2018-09-30 11:23 | RAD ---
CT of the abdomen and pelvis with contrast, 09/30/2018: HISTORY: Abdominal pain, vomiting, diarrhea Multidetector CT imaging was performed following an IV bolus injection of iodinated contrast material. No oral contrast material was administered for this study. Comparison is made to an exam from 05/27/2018. Small bilateral pleural effusions have developed. The hepatic contour is irregular compatible with cirrhosis. No hepatic mass is evident. The gallbladder is surgically absent. There is a recanalized umbilical vein with mild anterior abdominal wall varices. There is minimal ascites in the abdomen and pelvis. No pancreatic mass is evident. The spleen is of normal size. The kidneys show no evidence of obstruction. There is a small nonobstructing calculus in the lower pole of the right kidney. There is mild bilateral perinephric edema, similar to that seen on 05/27/2018. Aortoiliac calcific plaquing is present without evidence of aneurysm. No abdominal or pelvic adenopathy is seen. The bowel loops are not dilated. A portion of the appendix is visualized and it is unremarkable. There is mild streaky edema in the mesentery. No free air is evident in the abdomen or pelvis. A small fat-containing umbilical hernia is again noted. There are moderate scattered degenerative changes in the spine. An intramedullary fermin is present in the right femur. IMPRESSION: 1. Small bilateral pleural effusions have developed. 2. Hepatic cirrhosis with recanalized umbilical vein collateral vessels in the anterior abdominal wall. 3. Mild streaky mesenteric edema with a small amount of ascites in the abdomen and pelvis likely secondary to liver disease with portal hypertension. 4. Nonobstructing right intrarenal calculus. 5. Small fat-containing umbilical hernia. PQRS Compliance Statement: One or more of the following individualized dose reduction techniques were utilized for this examination: 1. Automated exposure control 2. Adjustment of the mA and/or kV according to patient size 3. Use of iterative reconstruction technique Electronically signed by: King Cordero MD (09/30/2018 11:19 AM) [facility]
[2018-09-30 11:26] LABS: CALCIUM 8.6 mg/dL (8.5-10.1); CREATININE 8.1 mg/dL (0.6-1.0); POTASSIUM 3.8 mmol/L (3.5-5.1); PROTHROMBIN TIME PATIENT 13.9 SEC (11.7-14.0)
[2018-09-30 11:32] LABS: ALBUMIN 2.6 g/dL (3.4-5.0); TOTAL PROTEIN 8.3 g/dL (6.4-8.2)
[2018-09-30 11:33] LABS: ALBUMIN/GLOBULIN RATIO 0.5 (1.0-1.7); TOTAL BILIRUBIN 1.1 mg/dL (0.2-1.0)
[2018-09-30 11:45] LABS: CREATINE KINASE 66 U/L (26-192)
[2018-09-30 11:56] LABS: ANISOCYTOSIS SLIGHT; PLT ESTIMATE DECREASED (ADEQUATE)
--- NOTE | 2018-09-30 12:08 | HP ---
ADMIT DATE: 09/30/2018 CHIEF COMPLAINT: Severe episodes of abdominal pain and vomiting and diarrhea. End-stage renal disease, unable to dialyze. HISTORY OF PRESENT ILLNESS: The patient is a pleasant elderly female well known to our service. She basically is on dialysis and she has been having nausea, vomiting, diarrhea, was unable to tolerate dialysis. I think they did try, but she is just too ill. Rates her symptoms as 7/10. Has associated shortness of breath. She tried increasing her home meds, but that did not seem to help. She took some [id number] meds, that did not help either. Her last dialysis was Saturday. While in the ER, she was noted to be anemic with hemoglobin of 9.3 and hyponatremic with sodium of 123. Her BUN is 37, creatinine 8.1. Basically, she has severe hyponatremia and [id number] renal failure and anemia. We are going to admit the patient and consult Nephrology. PAST MEDICAL HISTORY: End-stage renal disease, on dialysis; diabetes; hypertension; hyperlipidemia; hysterectomy; tonsillectomy; right knee surgery; right chest shunt dialysis graft. ALLERGIES: None. FAMILY HISTORY: Diabetes and end-stage renal disease. SOCIAL HISTORY: She does not drink, smoke or take drugs. MEDICATIONS: Reviewed. She is on Augmentin, Coreg. Toprol, amlodipine, hydrocodone, Percocet, MiraLax, lactobacillus and Protonix. REVIEW OF SYSTEMS: GENERAL: No history of weight change, weakness or fevers. SKIN: No bruising, hair changes or rashes. EYES: No blurred, double or loss of vision. NOSE AND THROAT: No history of nosebleeds, hoarseness or sore throat. HEART: No history of palpitations, chest pain or shortness of breath on exertion. LUNGS: Denies cough, hemoptysis, wheezing or shortness of breath. GASTROINTESTINAL: She complains of severe abdominal pain. GENITOURINARY: No history of frequency, urgency, hesitancy or nocturia. NEUROLOGIC: Denies history of numbness, tingling, tremor or weakness. PSYCHIATRIC: No history of panic, anxiety or depression. ENDOCRINE: No history of heat or cold intolerance, polyuria or polydipsia. EXTREMITIES: Denies muscle weakness, joint pain, pain on walking or stiffness. PHYSICAL EXAMINATION: VITAL SIGNS: Temperature afebrile, pulse 90, respirations 18, blood pressure 200/110. GENERAL: She is alert, cooperative, complaining of abdominal pain. HEART: Normal S1, S2. LUNGS: Clear. ABDOMEN: Soft, distended, tender. EXTREMITIES: 1+ edema. SKIN: Frail and thin. No rashes. ENDOCRINE: No thyromegaly. LYMPHATICS: No cervical nodes. HEMATOPOIETIC: No bruising. GENITOURINARY: Normal. PSYCHIATRIC: She is depressed and anxious. NECK: No jugular venous distention. LABORATORY DATA: Sodium is 123. Hemoglobin is 9.3. BUN 37, creatinine 8.1. Glucose 109. ASSESSMENT AND PLAN: Severe abdominal pain, diarrhea, vomiting, hyponatremia, anemia and azotemia. The patient has been admitted. We will consult GI and Nephrology. Suspect she is going to need dialysis soon. Fluid restriction for now, p.r.n. morphine, p.r.n. Zofran. Home meds. Cardiac monitoring. Full code. CT of the abdomen and pelvis with contrast. Urine culture, serial cardiac enzymes, continuous pulse oximetry, p.r.n. Zofran, consult Cardiology. PROGNOSIS: Guarded. VIKAS GAMEZ DO DR: CAMMIE/danial JOB#: [id number] / [id number]
--- NOTE | 2018-09-30 14:03 | PDOC2 ---
GI CONSULT Reason For Consult: Abd pain HPI: HPI: 63 y/o female seen w/ Dr. Faulkner in the ER. Ill since Saturday w/ abd cramping, diarrhea, and "a little" vomiting. Precipitated by a few days of coughing, sneezy, aching. Missed dialysis on Saturday as a result. H/o GERD on Prilosec QD. Denies dysphagia. Typically no issues w/ diarrhea or constipation. Denies hematemesis and hematochezia but says stools look black. Cirrhosis on imaging (as below) - h/o heavy alcohol use and Hep C (genotype 1a - possibly failed treatment in the past). H/o C Diff. EGD (Dr. Faulkner) 04/2016 (for melena/anemia): Grade 1 esophagitis, small MW tear w/o meaningful bleeding, alcoholic gastritis. Last colonoscopy reportedly normal ~6 years ago @ . S/p cholecystectomy 02/2018 (Dr. Rowe). Saw GI for similar symptoms (missed dialysis, n/v, abd pain) in 05/2018 - quick improvement. PMH: PMH: HTN, HLD, ESRD on HD, GERD, C Diff, cirrhosis, RA, DM, hyperparathyroidism partial hysterectomy (lap assisted/vaginal), cholecystectomy FH: Family History: DM Social History: Smoke: No ALCOHOL: other (heavy in the past) Drugs: None ROS: GEN: Denies fevers, chills, sweats HEENT: Denies blurred vision, sore throat CV: Denies chest pain RESP: Denies shortness of air, cough GI: Per HPI : Denies hematuria, dysuria ENDO: Denies weight changes NEURO: Denies confusion, dizziness MSK: Denies weakness, joint pain/swelling SKIN: Denies jaundice, pruritus Vitals: Vitals: Vital Signs Date Time Temp Pulse Resp B/P (MAP) Pulse Ox O2 Delivery O2 Flow Rate FiO2 09/30/18 13:21 200/88 (125) Room Air 09/30/18 12:51 102 23 96 09/30/18 09:41 98.3 98.3 Labs: Labs: Laboratory Tests Test 09/30/18 10:03 09/30/18 10:45 Bedside Hemoglobin 10.2 g/dL (12-15) Bedside Hematocrit 30 % (36-40) Bedside Sodium 123 mmol/L (135-145) Bedside Potassium 4.1 mmol/L (3.5-5.0) Bedside Chloride 84 mmol/L (98-110) Bedside Total CO2 28 mmol/L (23-32) Anion Gap 17 mmol/L (6-14) 13 (6-14) Bedside Blood Urea Nitrogen 40 mg/dL (8-26) Bedside Creatinine 8.3 mg/dL (0.5-1.4) Glucose Level 121 mg/dL (70-99) 109 mg/dL (70-99) Bedside Ionized Calcium (Hayde) 0.97 mmol/L (1.13-1.32) White Blood Count 6.5 x10^3/uL (4.0-11.0) Red Blood Count 2.38 x10^6/uL (3.50-5.40) Hemoglobin 9.3 g/dL (12.0-15.5) Hematocrit 26.2 % (36.0-47.0) Mean Corpuscular Volume 110 fL (79-100) Mean Corpuscular Hemoglobin 39 pg (25-35) Mean Corpuscular Hemoglobin Concent 35 g/dL (31-37) Red Cell Distribution Width 15.5 % (11.5-14.5) Platelet Count 120 x10^3/uL (140-400) Neutrophils (%) (Auto) 83 % (31-73) Lymphocytes (%) (Auto) 8 % (24-48) Monocytes (%) (Auto) 8 % (0-9) Eosinophils (%) (Auto) 0 % (0-3) Basophils (%) (Auto) 1 % (0-3) Neutrophils # (Auto) 5.4 x10^3uL (1.8-7.7) Lymphocytes # (Auto) 0.5 x10^3/uL (1.0-4.8) Monocytes # (Auto) 0.5 x10^3/uL (0.0-1.1) Eosinophils # (Auto) 0.0 x10^3/uL (0.0-0.7) Basophils # (Auto) 0.0 x10^3/uL (0.0-0.2) Platelet Estimate Decreased (ADEQUATE) Large Platelets Occ Anisocytosis Slight Macrocytosis Slight Prothrombin Time 13.9 SEC (11.7-14.0) Prothromb Time International Ratio 1.1 (0.8-1.1) Sodium Level 124 mmol/L (136-145) Potassium Level 3.8 mmol/L (3.5-5.1) Chloride Level 86 mmol/L (98-107) Carbon Dioxide Level 25 mmol/L (21-32) Blood Urea Nitrogen 37 mg/dL (7-20) Creatinine 8.1 mg/dL (0.6-1.0) Estimated GFR (Cockcroft-Gault) 6.0 BUN/Creatinine Ratio 5 (6-20) Calcium Level 8.6 mg/dL (8.5-10.1) Total Bilirubin 1.1 mg/dL (0.2-1.0) Aspartate Amino Transf (AST/SGOT) 71 U/L (15-37) Alanine Aminotransferase (ALT/SGPT) 22 U/L (14-59) Alkaline Phosphatase 253 U/L (46-116) Creatine Kinase 66 U/L (26-192) Creatine Kinase MB (Mass) 1.2 ng/mL (0.0-3.6) Creatine Kinase MB Relative Index % (0-4) Troponin I Quantitative < 0.017 ng/mL (0.000-0.055) Total Protein 8.3 g/dL (6.4-8.2) Albumin 2.6 g/dL (3.4-5.0) Albumin/Globulin Ratio 0.5 (1.0-1.7) Lipase 118 U/L (73-393) Allergies: Coded Allergies: No Known Drug Allergies (Unverified , 03/12/18) Medications: Current Medications Medications (Trade) Dose Ordered Sig/Kimberly Route PRN Reason Start Time Stop Time Status Last Admin Dose Admin Ondansetron HCl (Zofran) 4 mg 1X ONCE IV 09/30/18 10:00 09/30/18 10:02 DC 09/30/18 10:13 Sodium Chloride 250 ml @ 250 mls/hr 1X ONCE IV 09/30/18 10:00 09/30/18 10:59 DC 09/30/18 10:13 Iohexol (Omnipaque 300 Mg/ml) 60 ml 1X ONCE IV 09/30/18 10:45 09/30/18 10:47 DC 09/30/18 10:42 Imaging: Imaging: CXR IMPRESSION: No acute cardiopulmonary abnormality is detected. CT A/P IMPRESSION: 1. Small bilateral pleural effusions have developed. 2. Hepatic cirrhosis with recanalized umbilical vein collateral vessels in the anterior abdominal wall. 3. Mild streaky mesenteric edema with a small amount of ascites in the abdomen and pelvis likely secondary to liver disease with portal hypertension. 4. Nonobstructing right intrarenal calculus. 5. Small fat-containing umbilical hernia. PE: GEN: uncomfortable HEENT: Atraumatic, PERRL LUNGS: CTAB HEART: RRR ABD: round, hyperactive BS, tender (epigastrium, periumbilical) EXTREMITY: No edema SKIN: No rashes, no jaundice NEURO/PSYCH: A & O 3 A/P: A/P: Vomiting, abd pain, diarrhea HTN ESRD on HD, hyponatremia - last dialyzed on 09/25 GERD - on PPI, last EGD 04/2016 CRC screen - reportedly normal @ [facility] ~6 years ago H/o C Diff S/p cholecystectomy Cirrhosis - alcohol, Hep C; portal hypertension on CT Chronic anemia - Hgb around average -- ?infectious/viral Supportive care, resume PPI. Has renal diet ordered - okay to try. IRIS SZYMANSKI Sep 30, 2018 14:03
[2018-09-30] MEDS ORDERED: IV NORMAL SALINE 1000ML BAG 1,000 ML IV PRN ×2 (14:30)
[2018-09-30 15:00] VITALS: BP 193/95
[2018-09-30] MEDS ORDERED: ONDANSETRON PF 4 MG/2 ML VIAL. IV PRN (15:30)
[2018-09-30] MEDS: HYDROcodone/APAP 5/325MG 1 TAB TABLET PO PRN ×2 (16:05→21:01)
[2018-09-30] MEDS: CARVEDILOL 12.5 MG TABLET. PO SCH (18:05)
[2018-09-30 19:00] VITALS: BP 150/70
[2018-09-30] MEDS ORDERED: DIALYSIS PATIENT. MC PRN ×2 (19:00)
[2018-09-30] MEDS ORDERED: ZOLPIDEM 5 MG TABLET. PO PRN (20:30)
[2018-09-30] MEDS: LACTOBACILLUS RHAMNOSUS GG 1 CAPSULE. PO SCH (21:01)
[2018-09-30 23:00] VITALS: BP 130/71
[2018-10-01 03:00] VITALS: BP 130/74
[2018-10-01 07:00] VITALS: BP 159/71
[2018-10-01] MEDS ORDERED: PANTOPRAZOLE 40 MG TABLET.DR. PO SCH (07:30)
[2018-10-01] MEDS ORDERED: METOPROLOL SUCC 24HR ER 50 MG TAB.ER.24H. PO SCH (09:00)
[2018-10-01] MEDS ORDERED: MORPHINE SULFATE 2 MG/ML VIAL. IV PRN (09:00)
[2018-10-01] MEDS ORDERED: traMADol 50 MG TABLET PO PRN (09:00)
[2018-10-01] MEDS ORDERED: DOCUSATE SODIUM 100 MG CAPSULE. PO PRN (09:00)
[2018-10-01] MEDS ORDERED: ACETAMINOPHEN 325 MG TABLET. PO PRN (09:00)
[2018-10-01] MEDS ORDERED: POLYETHYLENE GLYCOL 3350 17 GM PACKET. PO PRN (09:00)
[2018-10-01] MEDS ORDERED: ONDANSETRON PF 4 MG/2 ML VIAL. IV PRN (09:00)
--- NOTE | 2018-10-01 10:15 | PDOC ---
Subjective: Subjective: Tolerated some eggs and toast for breakfast w/o n/v. Some remaining abd pain but better. Still having diarrhea. Scratched some of the skin off around her hip. Objective: Objective: Watery diarrhea per RNAram Diff was sent. Reviewed notes - bedbugs at home? Vital Signs: Vital Signs Date Time Temp Pulse Resp B/P (MAP) Pulse Ox O2 Delivery O2 Flow Rate FiO2 10/01/18 07:00 97.5 76 18 159/71 (100) 97 Room Air 97.5 Labs: Laboratory Tests Test 09/30/18 10:45 09/30/18 16:48 09/30/18 20:47 10/01/18 07:26 White Blood Count 6.5 x10^3/uL Red Blood Count 2.38 x10^6/uL Hemoglobin 9.3 g/dL Hematocrit 26.2 % Mean Corpuscular Volume 110 fL Mean Corpuscular Hemoglobin 39 pg Mean Corpuscular Hemoglobin Concent 35 g/dL Red Cell Distribution Width 15.5 % Platelet Count 120 x10^3/uL Neutrophils (%) (Auto) 83 % Lymphocytes (%) (Auto) 8 % Monocytes (%) (Auto) 8 % Eosinophils (%) (Auto) 0 % Basophils (%) (Auto) 1 % Neutrophils # (Auto) 5.4 x10^3uL Lymphocytes # (Auto) 0.5 x10^3/uL Monocytes # (Auto) 0.5 x10^3/uL Eosinophils # (Auto) 0.0 x10^3/uL Basophils # (Auto) 0.0 x10^3/uL Platelet Estimate Decreased Large Platelets Occ Anisocytosis Slight Macrocytosis Slight Prothrombin Time 13.9 SEC Prothromb Time International Ratio 1.1 Sodium Level 124 mmol/L Potassium Level 3.8 mmol/L Chloride Level 86 mmol/L Carbon Dioxide Level 25 mmol/L Anion Gap 13 Blood Urea Nitrogen 37 mg/dL Creatinine 8.1 mg/dL Estimated GFR (Cockcroft-Gault) 6.0 BUN/Creatinine Ratio 5 Glucose Level 109 mg/dL Calcium Level 8.6 mg/dL Total Bilirubin 1.1 mg/dL Aspartate Amino Transf (AST/SGOT) 71 U/L Alanine Aminotransferase (ALT/SGPT) 22 U/L Alkaline Phosphatase 253 U/L Creatine Kinase 66 U/L Creatine Kinase MB (Mass) 1.2 ng/mL Creatine Kinase MB Relative Index % Troponin I Quantitative < 0.017 ng/mL Total Protein 8.3 g/dL Albumin 2.6 g/dL Albumin/Globulin Ratio 0.5 Lipase 118 U/L Hepatitis B Surface Antigen Nonreactive Hepatitis B Surface Antibody Nonreactive Glucose (Fingerstick) 91 mg/dL 117 mg/dL 110 mg/dL PE: GEN: NAD LUNGS: CTAB HEART: RRR ABD: NABS, S/ND/NT NEURO/PSYCH: A & O 3 A/P: Vomiting (resolved), abd pain (better), diarrhea (persists) ESRD on HD, HTN, chronic anemia -- Tolerating PO. Continue PPI, await C Diff. IRIS SZYMANSKI Oct 01, 2018 10:15
[2018-10-01] MEDS: CARVEDILOL 12.5 MG TABLET. PO SCH ×2 (10:29→17:28)
[2018-10-01] MEDS: PANTOPRAZOLE 40 MG TABLET.DR. PO SCH (10:29)
[2018-10-01] MEDS: amLODIPine BESYLATE 10 MG TABLET PO SCH (10:30)
[2018-10-01] MEDS: LACTOBACILLUS RHAMNOSUS GG 1 CAPSULE. PO SCH ×2 (10:30→21:01)
[2018-10-01] MEDS: diphenhydrAMINE HCL 25 MG CAPSULE PO PRN (10:31)
[2018-10-01 11:00] VITALS: BP 137/80
[2018-10-01] MEDS: ALBUTEROL SULFATE 2.5 MG/3 ML NEBU. NEB PRN (11:03)
[2018-10-01 11:15] LABS: BASO # 0.1 x10^3/uL (0.0-0.2); BASO % 1 % (0-3); EOS % 1 % (0-3); HEMATOCRIT 23.4 % (36.0-47.0); HEMOGLOBIN 8.1 g/dL (12.0-15.5); LYMPH # 0.6 x10^3/uL (1.0-4.8); LYMPH % 13 % (24-48); MEAN CORPUSCULAR HEMOGLOBIN 39 pg (25-35); MEAN CORPUSCULAR HGB CONC 35 g/dL (31-37); MEAN CORPUSCULAR VOLUME 111 fL (79-100); MONO # 0.4 x10^3/uL (0.0-1.1); MONO % 9 % (0-9); NEUT # 3.5 x10^3uL (1.8-7.7); NEUT % 77 % (31-73); PLATELET COUNT 91 x10^3/uL (140-400); RED CELL DISTRIBUTION WIDTH 15.3 % (11.5-14.5); WHITE BLOOD COUNT 4.6 x10^3/uL (4.0-11.0)
[2018-10-01 11:27] LABS: CALCIUM 8.6 mg/dL (8.5-10.1); CREATININE 6.2 mg/dL (0.6-1.0); GFR 8.2; POTASSIUM 4.2 mmol/L (3.5-5.1)
[2018-10-01] MEDS: HYDROcodone/APAP 5/325MG 1 TAB TABLET PO PRN ×2 (12:01→21:16)
--- NOTE | 2018-10-01 12:48 | PDOC ---
PROGRESS NOTES Chief Complaint Chief Complaint gastraenteritis with diarrhea, n/v, viral infection likely End-stage renal disease, on dialysis TTSat diabetes with diet control only hypertension; hyperlipidemia; morbid obesity h/o hep c, EARly cirrhosis plan: fu with gi, on renal diet already, has nausea today, watch closely cont HD tts cont home meds, on amlodipine , coreg, dc metoprolol cdiff pending dvt ppx FC desposition: home when better History of Present Illness History of Present Illness ROS: no fever, chills, sob or chest pain has some nausea, but eats regular food has 2 times looSE BM today, cdiff pending wanna go home Vitals Vitals Vital Signs Date Time Temp Pulse Resp B/P (MAP) Pulse Ox O2 Delivery O2 Flow Rate FiO2 10/01/18 12:01 20 97 Room Air 10/01/18 11:00 97.5 81 137/80 (99) 97.5 Physical Exam General: Alert, Oriented X3, Cooperative Heart: Regular rate, Normal S1, Normal S2 Lungs: Clear Abdomen: Normal bowel sounds, Soft, No tenderness Extremities: No clubbing, No cyanosis Skin: No rashes Labs LABS Laboratory Tests Test 09/30/18 16:48 09/30/18 20:47 10/01/18 07:26 10/01/18 10:50 Glucose (Fingerstick) 91 mg/dL (70-99) 117 mg/dL (70-99) 110 mg/dL (70-99) White Blood Count 4.6 x10^3/uL (4.0-11.0) Red Blood Count 2.10 x10^6/uL (3.50-5.40) Hemoglobin 8.1 g/dL (12.0-15.5) Hematocrit 23.4 % (36.0-47.0) Mean Corpuscular Volume 111 fL (79-100) Mean Corpuscular Hemoglobin 39 pg (25-35) Mean Corpuscular Hemoglobin Concent 35 g/dL (31-37) Red Cell Distribution Width 15.3 % (11.5-14.5) Platelet Count 91 x10^3/uL (140-400) Neutrophils (%) (Auto) 77 % (31-73) Lymphocytes (%) (Auto) 13 % (24-48) Monocytes (%) (Auto) 9 % (0-9) Eosinophils (%) (Auto) 1 % (0-3) Basophils (%) (Auto) 1 % (0-3) Neutrophils # (Auto) 3.5 x10^3uL (1.8-7.7) Lymphocytes # (Auto) 0.6 x10^3/uL (1.0-4.8) Monocytes # (Auto) 0.4 x10^3/uL (0.0-1.1) Eosinophils # (Auto) 0.0 x10^3/uL (0.0-0.7) Basophils # (Auto) 0.1 x10^3/uL (0.0-0.2) Sodium Level 135 mmol/L (136-145) Potassium Level 4.2 mmol/L (3.5-5.1) Chloride Level 97 mmol/L (98-107) Carbon Dioxide Level 30 mmol/L (21-32) Anion Gap 8 (6-14) Blood Urea Nitrogen 30 mg/dL (7-20) Creatinine 6.2 mg/dL (0.6-1.0) Estimated GFR (Cockcroft-Gault) 8.2 Glucose Level 112 mg/dL (70-99) Calcium Level 8.6 mg/dL (8.5-10.1) Test 10/01/18 11:16 Glucose (Fingerstick) 103 mg/dL (70-99) Assessment and Plan Assessmemt and Plan Problems Medical Problems: (1) ESRD (end stage renal disease) Status: Acute (2) Hyponatremia Status: Acute (3) Nausea vomiting and diarrhea Status: Acute Comment Review of Relevant I have reviewed the following items tamika (where applicable) has been applied. Labs Laboratory Tests Test 09/30/18 10:03 09/30/18 10:45 09/30/18 16:48 09/30/18 20:47 Bedside Hemoglobin 10.2 g/dL (12-15) Bedside Hematocrit 30 % (36-40) Bedside Sodium 123 mmol/L (135-145) Bedside Potassium 4.1 mmol/L (3.5-5.0) Bedside Chloride 84 mmol/L (98-110) Bedside Total CO2 28 mmol/L (23-32) Anion Gap 17 mmol/L (6-14) 13 (6-14) Bedside Blood Urea Nitrogen 40 mg/dL (8-26) Bedside Creatinine 8.3 mg/dL (0.5-1.4) Glucose Level 121 mg/dL (70-99) 109 mg/dL (70-99) Bedside Ionized Calcium (Hayde) 0.97 mmol/L (1.13-1.32) White Blood Count 6.5 x10^3/uL (4.0-11.0) Red Blood Count 2.38 x10^6/uL (3.50-5.40) Hemoglobin 9.3 g/dL (12.0-15.5) Hematocrit 26.2 % (36.0-47.0) Mean Corpuscular Volume 110 fL (79-100) Mean Corpuscular Hemoglobin 39 pg (25-35) Mean Corpuscular Hemoglobin Concent 35 g/dL (31-37) Red Cell Distribution Width 15.5 % (11.5-14.5) Platelet Count 120 x10^3/uL (140-400) Neutrophils (%) (Auto) 83 % (31-73) Lymphocytes (%) (Auto) 8 % (24-48) Monocytes (%) (Auto) 8 % (0-9) Eosinophils (%) (Auto) 0 % (0-3) Basophils (%) (Auto) 1 % (0-3) Neutrophils # (Auto) 5.4 x10^3uL (1.8-7.7) Lymphocytes # (Auto) 0.5 x10^3/uL (1.0-4.8) Monocytes # (Auto) 0.5 x10^3/uL (0.0-1.1) Eosinophils # (Auto) 0.0 x10^3/uL (0.0-0.7) Basophils # (Auto) 0.0 x10^3/uL (0.0-0.2) Platelet Estimate Decreased (ADEQUATE) Large Platelets Occ Anisocytosis Slight Macrocytosis Slight Prothrombin Time 13.9 SEC (11.7-14.0) Prothromb Time International Ratio 1.1 (0.8-1.1) Sodium Level 124 mmol/L (136-145) Potassium Level 3.8 mmol/L (3.5-5.1) Chloride Level 86 mmol/L (98-107) Carbon Dioxide Level 25 mmol/L (21-32) Blood Urea Nitrogen 37 mg/dL (7-20) Creatinine 8.1 mg/dL (0.6-1.0) Estimated GFR (Cockcroft-Gault) 6.0 BUN/Creatinine Ratio 5 (6-20) Calcium Level 8.6 mg/dL (8.5-10.1) Total Bilirubin 1.1 mg/dL (0.2-1.0) Aspartate Amino Transf (AST/SGOT) 71 U/L (15-37) Alanine Aminotransferase (ALT/SGPT) 22 U/L (14-59) Alkaline Phosphatase 253 U/L (46-116) Creatine Kinase 66 U/L (26-192) Creatine Kinase MB (Mass) 1.2 ng/mL (0.0-3.6) Creatine Kinase MB Relative Index % (0-4) Troponin I Quantitative < 0.017 ng/mL (0.000-0.055) Total Protein 8.3 g/dL (6.4-8.2) Albumin 2.6 g/dL (3.4-5.0) Albumin/Globulin Ratio 0.5 (1.0-1.7) Lipase 118 U/L (73-393) Hepatitis B Surface Antigen Nonreactive (Nonreactive) Hepatitis B Surface Antibody Nonreactive Glucose (Fingerstick) 91 mg/dL (70-99) 117 mg/dL (70-99) Test 10/01/18 07:26 10/01/18 10:50 10/01/18 11:16 Glucose (Fingerstick) 110 mg/dL (70-99) 103 mg/dL (70-99) White Blood Count 4.6 x10^3/uL (4.0-11.0) Red Blood Count 2.10 x10^6/uL (3.50-5.40) Hemoglobin 8.1 g/dL (12.0-15.5) Hematocrit 23.4 % (36.0-47.0) Mean Corpuscular Volume 111 fL (79-100) Mean Corpuscular Hemoglobin 39 pg (25-35) Mean Corpuscular Hemoglobin Concent 35 g/dL (31-37) Red Cell Distribution Width 15.3 % (11.5-14.5) Platelet Count 91 x10^3/uL (140-400) Neutrophils (%) (Auto) 77 % (31-73) Lymphocytes (%) (Auto) 13 % (24-48) Monocytes (%) (Auto) 9 % (0-9) Eosinophils (%) (Auto) 1 % (0-3) Basophils (%) (Auto) 1 % (0-3) Neutrophils # (Auto) 3.5 x10^3uL (1.8-7.7) Lymphocytes # (Auto) 0.6 x10^3/uL (1.0-4.8) Monocytes # (Auto) 0.4 x10^3/uL (0.0-1.1) Eosinophils # (Auto) 0.0 x10^3/uL (0.0-0.7) Basophils # (Auto) 0.1 x10^3/uL (0.0-0.2) Sodium Level 135 mmol/L (136-145) Potassium Level 4.2 mmol/L (3.5-5.1) Chloride Level 97 mmol/L (98-107) Carbon Dioxide Level 30 mmol/L (21-32) Anion Gap 8 (6-14) Blood Urea Nitrogen 30 mg/dL (7-20) Creatinine 6.2 mg/dL (0.6-1.0) Estimated GFR (Cockcroft-Gault) 8.2 Glucose Level 112 mg/dL (70-99) Calcium Level 8.6 mg/dL (8.5-10.1) Laboratory Tests Test 09/30/18 16:48 09/30/18 20:47 10/01/18 07:26 10/01/18 10:50 Glucose (Fingerstick) 91 mg/dL (70-99) 117 mg/dL (70-99) 110 mg/dL (70-99) White Blood Count 4.6 x10^3/uL (4.0-11.0) Red Blood Count 2.10 x10^6/uL (3.50-5.40) Hemoglobin 8.1 g/dL (12.0-15.5) Hematocrit 23.4 % (36.0-47.0) Mean Corpuscular Volume 111 fL (79-100) Mean Corpuscular Hemoglobin 39 pg (25-35) Mean Corpuscular Hemoglobin Concent 35 g/dL (31-37) Red Cell Distribution Width 15.3 % (11.5-14.5) Platelet Count 91 x10^3/uL (140-400) Neutrophils (%) (Auto) 77 % (31-73) Lymphocytes (%) (Auto) 13 % (24-48) Monocytes (%) (Auto) 9 % (0-9) Eosinophils (%) (Auto) 1 % (0-3) Basophils (%) (Auto) 1 % (0-3) Neutrophils # (Auto) 3.5 x10^3uL (1.8-7.7) Lymphocytes # (Auto) 0.6 x10^3/uL (1.0-4.8) Monocytes # (Auto) 0.4 x10^3/uL (0.0-1.1) Eosinophils # (Auto) 0.0 x10^3/uL (0.0-0.7) Basophils # (Auto) 0.1 x10^3/uL (0.0-0.2) Sodium Level 135 mmol/L (136-145) Potassium Level 4.2 mmol/L (3.5-5.1) Chloride Level 97 mmol/L (98-107) Carbon Dioxide Level 30 mmol/L (21-32) Anion Gap 8 (6-14) Blood Urea Nitrogen 30 mg/dL (7-20) Creatinine 6.2 mg/dL (0.6-1.0) Estimated GFR (Cockcroft-Gault) 8.2 Glucose Level 112 mg/dL (70-99) Calcium Level 8.6 mg/dL (8.5-10.1) Test 10/01/18 11:16 Glucose (Fingerstick) 103 mg/dL (70-99) Medications Current Medications Ondansetron HCl (Zofran) 4 mg 1X ONCE IV Last administered on 09/30/18at 10:13 ; Start 09/30/18 at 10:00; Stop 09/30/18 at 10:02; Status DC Sodium Chloride 250 ml @ 250 mls/hr 1X ONCE IV Last administered on at 10:13; Start 09/30/18 at 10:00; Stop 09/30/18 at 10:59; Status DC Iohexol (Omnipaque 300 Mg/ml) 60 ml 1X ONCE IV Last administered on 09/30/18at 10:42; Start 09/30/18 at 10:45; Stop 09/30/18 at 10:47; Status DC Pantoprazole Sodium (Protonix) 40 mg DAILYAC PO Last administered on 10/01/18at 10:29; Start 10/01/18 at 07:30 Acetaminophen/ Hydrocodone Bitart (Lortab 5/325) 1 tab PRN Q4HRS PRN PO PAIN Last administered on 10/01/18at 12:01; Start 09/30/18 at 15:30 Ondansetron HCl (Zofran) 4 mg PRN Q6HRS PRN IV NAUSEA/VOMITING Last administered on 09/30/18at 16:00; Start 09/30/18 at 15:30 Amlodipine Besylate (Norvasc) 10 mg DAILY PO Last administered on 10/01/18 10: 30; Start 10/01/18 at 09:00 Lactobacillus Rhamnosus (Culturelle) 1 cap BID PO Last administered on 10:30; Start 09/30/18 at 21:00 Carvedilol (Coreg) 25 mg BIDWMEALS PO Last administered on 10/01/18at 10:29; Start 09/30/18 at 17:00 Metoprolol Succinate (Toprol Xl) 50 mg DAILY PO ; Start 10/01/18 at 09:00; Stop 10/01/18 at 09:00; Status DC Polyethylene Glycol (miraLAX PACKET) 17 gm PRN DAILY PRN PO CONSTIPATION (2nd Choice); Start 10/01/18 at 09:00 Pantoprazole Sodium (Protonix) 40 mg DAILYAC PO ; Start 10/01/18 at 07:30; Status Cancel Sodium Chloride 1,000 ml @ 1,000 mls/hr Q1H PRN IV hypotension; Start 09/30/18 at 14:30; Stop 09/30/18 at 20:29; Status DC Sodium Chloride 1,000 ml @ 400 mls/hr Q2H30M PRN IV PATENCY; Start 09/30/18 at 14:30; Stop 10/01/18 at 02:29; Status DC Info (PHARMACY MONITORING -- do not chart) 1 each PRN DAILY PRN MC SEE COMMENTS ; Start 09/30/18 at 19:00 Info (PHARMACY MONITORING -- do not chart) 1 each PRN DAILY PRN MC SEE COMMENTS ; Start 09/30/18 at 19:00; Status UNV Zolpidem Tartrate (Ambien) 5 mg PRN QHS PRN PO INSOMNIA Last administered on at 21:01; Start 09/30/18 at 20:30 Acetaminophen (Tylenol) 650 mg PRN Q6HRS PRN PO FEVER; Start 10/01/18 at 09:00 Ondansetron HCl (Zofran) 4 mg PRN Q6HRS PRN IV NAUSEA/VOMITING; Start 10/01/18 at 09:00 Morphine Sulfate (Morphine Sulfate) 2 mg PRN Q2HR PRN IV MODERATE TO SEVERE PAIN; Start 10/01/18 at 09:00 Tramadol HCl (Ultram) 50 mg PRN Q6HRS PRN PO MILD TO MODERATE PAIN; Start 10/01 at 09:00 Docusate Sodium (Colace) 100 mg PRN DAILY PRN PO CONSTIPATION (1st Choice); Start 10/01/18 at 09:00 Diphenhydramine HCl (Benadryl) 25 mg PRN Q6HRS PRN PO ITCHING Last administered on 10/01/18at 10:31; Start 10/01/18 at 09:15 Albuterol Sulfate (Ventolin Neb Soln) 2.5 mg PRN Q4HRS PRN NEB SHORTNESS OF BREATH Last administered on 10/01/18at 11:03; Start 10/01/18 at 09:15 Active Scripts Active Culturelle (Lactobacillus Rhamnosus Gg) 1 Each Cap.sprink 1 Cap PO BID 14 Days [Pantoprazole] 40 MG Tablet.dr 40 Mg PO DAILYAC 30 Days Reported Miralax (Polyethylene Glycol 3350) 17 Gm Powd.pack 1 Packet PO PRN DAILY PRN Coreg (Carvedilol) 25 Mg Tablet 25 Mg PO BIDWMEALS Amlodipine Besylate 10 Mg Tablet 10 Mg PO DAILY Toprol Xl (Metoprolol Succinate) 50 Mg Tab.er.24h 1 Tab PO DAILY Vitals/I & O Vital Sign - Last 24 Hours 09/30/18 09/30/18 09/30/18 09/30/18 12:51 13:16 13:21 14:30 Pulse 102 Resp 23 B/P (MAP) 222/91 (134) 226/94 (138) 200/88 (125) Pulse Ox 96 O2 Delivery Room Air Room Air Room Air Room Air 12/409/30/18 09/30/18 09/30/18 15:00 16:05 18:05 19:00 Temp 98.2 98.2 98.2 98.2 Pulse 106 112 83 Resp 20 20 18 B/P (MAP) 193/95 (127) 190/80 150/70 (96) Pulse Ox 97 96 92 O2 Delivery Room Air Room Air Room Air 09/30/18 09/30/18 09/30/18 09/30/18 20:00 21:01 22:01 23:00 Temp 98.7 98.7 Pulse 83 Resp 16 16 18 B/P (MAP) 130/71 (90) Pulse Ox 96 94 94 O2 Delivery Room Air Room Air Room Air Room Air 10/01/18 10/01/18 10/01/18 10/01/18 03:00 07:00 10:29 10:30 Temp 97.8 97.5 97.8 97.5 Pulse 76 76 76 76 Resp 18 18 B/P (MAP) 130/74 (92) 159/71 (100) 159/71 159/71 Pulse Ox 97 97 O2 Delivery Room Air Room Air 10/01/18 10/01/18 10/01/18 11:00 11:05 12:01 Temp 97.5 97.5 Pulse 81 Resp 17 20 B/P (MAP) 137/80 (99) Pulse Ox 95 97 97 O2 Delivery Room Air Room Air Room Air Intake and Output 09/30/18 09/30/18 10/01/18 15:00 23:00 07:00 Intake Total 530 ml 120 ml Balance 530 ml 120 ml ALEX CASTRO MD Oct 01, 2018 12:48
[2018-10-01] MEDS: HEPARIN for SUB-Q USE 5,000 UNIT/ML VIAL. SQ SCH ×2 (14:00→21:01)
[2018-10-01 15:00] VITALS: BP 121/61
--- NOTE | 2018-10-01 16:02 | PDOC2 ---
CONSULT Date of Consult Date of Consult DATE: 10/01/18 TIME: 15:54 Reason for Consult Reason for Consult: ESRD Source Source: Chart review, Patient History of Present Illness Reason for Visit: 63 y/o AA female ESRD on HD TTS - presented with c/o bd cramping, diarrhea, and vomiting. She has been coughing, sneezy, aching for past few days . She Missed dialysis on Saturday as was not feeling well She was Dialyzed Yesterday . Currently No acute concerns She has Hx of GERD on Prilosec ,Cirrhosis on imaging - h/o heavy alcohol use and Hep C (genotype 1a - possibly failed treatment in the past). Past Medical History Cardiovascular: HTN, Hyperlipidemia Pulmonary: No pertinent hx GI: Constipation, GERD, GI bleed Heme/Onc: Anemia NOS Hepatobiliary: No pertinent hx, Hep A/B/C Psych: Addictions Rheumatologic: Rheumatoid arthritis Infectious disease: No pertinent hx Renal/: Chronic renal failure, Hematuria Endocrine: Diabetes, Hyperparathyroidism Past Surgical History Past Surgical History: Cholecystectomy, Tonsillectomy, Hysterectomy, Other Family History Family History: High Cholestrol, Hypertension, Family History Unknown Social History No ALCOHOL: other (heavy in the past) Drugs: None Current Problem List Problem List Problems Medical Problems: (1) ESRD (end stage renal disease) Status: Acute (2) Hyponatremia Status: Acute (3) Nausea vomiting and diarrhea Status: Acute Current Medications Current Medications Current Medications Ondansetron HCl (Zofran) 4 mg 1X ONCE IV Last administered on 09/30/18at 10:13 ; Start 09/30/18 at 10:00; Stop 09/30/18 at 10:02; Status DC Sodium Chloride 250 ml @ 250 mls/hr 1X ONCE IV Last administered on at 10:13; Start 09/30/18 at 10:00; Stop 09/30/18 at 10:59; Status DC Iohexol (Omnipaque 300 Mg/ml) 60 ml 1X ONCE IV Last administered on 09/30/18at 10:42; Start 09/30/18 at 10:45; Stop 09/30/18 at 10:47; Status DC Pantoprazole Sodium (Protonix) 40 mg DAILYAC PO Last administered on 10/01/18at 10:29; Start 10/01/18 at 07:30 Acetaminophen/ Hydrocodone Bitart (Lortab 5/325) 1 tab PRN Q4HRS PRN PO SEVERE PAIN Last administered on 10/01/18at 12:01; Start 09/30/18 at 15:30 Ondansetron HCl (Zofran) 4 mg PRN Q6HRS PRN IV NAUSEA/VOMITING Last administered on 09/30/18at 16:00; Start 09/30/18 at 15:30; Stop 10/01/18 at 14:13 ; Status DC Amlodipine Besylate (Norvasc) 10 mg DAILY PO Last administered on 10/01/18at 10: 30; Start 10/01/18 at 09:00 Lactobacillus Rhamnosus (Culturelle) 1 cap BID PO Last administered on at 10:30; Start 09/30/18 at 21:00 Carvedilol (Coreg) 25 mg BIDWMEALS PO Last administered on 10/01/18at 10:29; Start 09/30/18 at 17:00 Metoprolol Succinate (Toprol Xl) 50 mg DAILY PO ; Start 10/01/18 at 09:00; Stop 10/01/18 at 09:00; Status DC Polyethylene Glycol (miraLAX PACKET) 17 gm PRN DAILY PRN PO CONSTIPATION (2nd Choice); Start 10/01/18 at 09:00 Pantoprazole Sodium (Protonix) 40 mg DAILYAC PO ; Start 10/01/18 at 07:30; Status Cancel Sodium Chloride 1,000 ml @ 1,000 mls/hr Q1H PRN IV hypotension; Start 09/30/18 at 14:30; Stop 09/30/18 at 20:29; Status DC Sodium Chloride 1,000 ml @ 400 mls/hr Q2H30M PRN IV PATENCY; Start 09/30/18 at 14:30; Stop 10/01/18 at 02:29; Status DC Info (PHARMACY MONITORING -- do not chart) 1 each PRN DAILY PRN MC SEE COMMENTS ; Start 09/30/18 at 19:00 Info (PHARMACY MONITORING -- do not chart) 1 each PRN DAILY PRN MC SEE COMMENTS ; Start 09/30/18 at 19:00; Status UNV Zolpidem Tartrate (Ambien) 5 mg PRN QHS PRN PO INSOMNIA Last administered on at 21:01; Start 09/30/18 at 20:30 Acetaminophen (Tylenol) 650 mg PRN Q6HRS PRN PO FEVER; Start 10/01/18 at 09:00 Ondansetron HCl (Zofran) 4 mg PRN Q6HRS PRN IV NAUSEA/VOMITING; Start 10/01/18 at 09:00 Morphine Sulfate (Morphine Sulfate) 2 mg PRN Q2HR PRN IV MODERATE TO SEVERE PAIN; Start 10/01/18 at 09:00 Tramadol HCl (Ultram) 50 mg PRN Q6HRS PRN PO MILD TO MODERATE PAIN; Start 10/01 at 09:00 Docusate Sodium (Colace) 100 mg PRN DAILY PRN PO CONSTIPATION (1st Choice); Start 10/01/18 at 09:00 Diphenhydramine HCl (Benadryl) 25 mg PRN Q6HRS PRN PO ITCHING Last administered on 10/01/18at 10:31; Start 10/01/18 at 09:15 Albuterol Sulfate (Ventolin Neb Soln) 2.5 mg PRN Q4HRS PRN NEB SHORTNESS OF BREATH Last administered on 10/01/18at 11:03; Start 10/01/18 at 09:15 Heparin Sodium (Porcine) (Heparin Sodium) 5,000 unit Q8HRS SQ ; Start 10/01/18 at 14:00 Vancomycin HCl (Vancomycin Oral Solution) 125 mg [id number] PO ; Start 10/01/18 at 17:00 Vancomycin HCl (Vancomycin Oral Solution) 125 mg [id number] PO ; Start 10/01/18 at 17:00; Status UNV Active Scripts Active Culturelle (Lactobacillus Rhamnosus Gg) 1 Each Cap.sprink 1 Cap PO BID 14 Days [Pantoprazole] 40 MG Tablet.dr 40 Mg PO DAILYAC 30 Days Reported Miralax (Polyethylene Glycol 3350) 17 Gm Powd.pack 1 Packet PO PRN DAILY PRN Coreg (Carvedilol) 25 Mg Tablet 25 Mg PO BIDWMEALS Amlodipine Besylate 10 Mg Tablet 10 Mg PO DAILY Toprol Xl (Metoprolol Succinate) 50 Mg Tab.er.24h 1 Tab PO DAILY Allergies Allergies: Coded Allergies: No Known Drug Allergies (Unverified , 03/12/18) ROS Review of System As per HPI Physical Exam Physical Exam GENERAL: She is alert, nad HEART: Normal S1, S2. Neck Supple LUNGS: Clear. ABDOMEN: Soft, distended, tender. EXTREMITIES: trace edema. SKIN: No rashes. GENITOURINARY: No shaw NECK: No jugular venous distention. Vital Signs Vital Signs Date Time Temp Pulse Resp B/P (MAP) Pulse Ox O2 Delivery O2 Flow Rate FiO2 10/01/18 15:00 93.4 72 17 121/61 (81) 96 Room Air 93.4 Assessment & Plan ESRD- TTS Dialyzed Yesterday , missed her Last OP HD on saturday Labs Stable, cliniclaly stable HD Tomorrow as per her schedule Abdominal Pain /- GI following Diabetes - Diet controlled Hypertension; h/o hep c, EARly cirrhosis- Failed Treatment GI following ANemia - Aranesp as per protocol Hyponatremia- improved Mildly Low Na DW Pt and RN Labs Labs Laboratory Tests Test 09/30/18 10:03 09/30/18 10:45 09/30/18 16:48 09/30/18 20:47 Bedside Hemoglobin 10.2 g/dL (12-15) Bedside Hematocrit 30 % (36-40) Bedside Sodium 123 mmol/L (135-145) Bedside Potassium 4.1 mmol/L (3.5-5.0) Bedside Chloride 84 mmol/L (98-110) Bedside Total CO2 28 mmol/L (23-32) Anion Gap 17 mmol/L (6-14) 13 (6-14) Bedside Blood Urea Nitrogen 40 mg/dL (8-26) Bedside Creatinine 8.3 mg/dL (0.5-1.4) Glucose Level 121 mg/dL (70-99) 109 mg/dL (70-99) Bedside Ionized Calcium (Hayde) 0.97 mmol/L (1.13-1.32) White Blood Count 6.5 x10^3/uL (4.0-11.0) Red Blood Count 2.38 x10^6/uL (3.50-5.40) Hemoglobin 9.3 g/dL (12.0-15.5) Hematocrit 26.2 % (36.0-47.0) Mean Corpuscular Volume 110 fL (79-100) Mean Corpuscular Hemoglobin 39 pg (25-35) Mean Corpuscular Hemoglobin Concent 35 g/dL (31-37) Red Cell Distribution Width 15.5 % (11.5-14.5) Platelet Count 120 x10^3/uL (140-400) Neutrophils (%) (Auto) 83 % (31-73) Lymphocytes (%) (Auto) 8 % (24-48) Monocytes (%) (Auto) 8 % (0-9) Eosinophils (%) (Auto) 0 % (0-3) Basophils (%) (Auto) 1 % (0-3) Neutrophils # (Auto) 5.4 x10^3uL (1.8-7.7) Lymphocytes # (Auto) 0.5 x10^3/uL (1.0-4.8) Monocytes # (Auto) 0.5 x10^3/uL (0.0-1.1) Eosinophils # (Auto) 0.0 x10^3/uL (0.0-0.7) Basophils # (Auto) 0.0 x10^3/uL (0.0-0.2) Platelet Estimate Decreased (ADEQUATE) Large Platelets Occ Anisocytosis Slight Macrocytosis Slight Prothrombin Time 13.9 SEC (11.7-14.0) Prothromb Time International Ratio 1.1 (0.8-1.1) Sodium Level 124 mmol/L (136-145) Potassium Level 3.8 mmol/L (3.5-5.1) Chloride Level 86 mmol/L (98-107) Carbon Dioxide Level 25 mmol/L (21-32) Blood Urea Nitrogen 37 mg/dL (7-20) Creatinine 8.1 mg/dL (0.6-1.0) Estimated GFR (Cockcroft-Gault) 6.0 BUN/Creatinine Ratio 5 (6-20) Calcium Level 8.6 mg/dL (8.5-10.1) Total Bilirubin 1.1 mg/dL (0.2-1.0) Aspartate Amino Transf (AST/SGOT) 71 U/L (15-37) Alanine Aminotransferase (ALT/SGPT) 22 U/L (14-59) Alkaline Phosphatase 253 U/L (46-116) Creatine Kinase 66 U/L (26-192) Creatine Kinase MB (Mass) 1.2 ng/mL (0.0-3.6) Creatine Kinase MB Relative Index % (0-4) Troponin I Quantitative < 0.017 ng/mL (0.000-0.055) Total Protein 8.3 g/dL (6.4-8.2) Albumin 2.6 g/dL (3.4-5.0) Albumin/Globulin Ratio 0.5 (1.0-1.7) Lipase 118 U/L (73-393) Hepatitis B Surface Antigen Nonreactive (Nonreactive) Hepatitis B Surface Antibody Nonreactive Glucose (Fingerstick) 91 mg/dL (70-99) 117 mg/dL (70-99) Test 10/01/18 06:45 10/01/18 07:26 10/01/18 10:50 10/01/18 11:16 Clostridium difficile Toxin B Gene Positive (Negative) Glucose (Fingerstick) 110 mg/dL (70-99) 103 mg/dL (70-99) White Blood Count 4.6 x10^3/uL (4.0-11.0) Red Blood Count 2.10 x10^6/uL (3.50-5.40) Hemoglobin 8.1 g/dL (12.0-15.5) Hematocrit 23.4 % (36.0-47.0) Mean Corpuscular Volume 111 fL (79-100) Mean Corpuscular Hemoglobin 39 pg (25-35) Mean Corpuscular Hemoglobin Concent 35 g/dL (31-37) Red Cell Distribution Width 15.3 % (11.5-14.5) Platelet Count 91 x10^3/uL (140-400) Neutrophils (%) (Auto) 77 % (31-73) Lymphocytes (%) (Auto) 13 % (24-48) Monocytes (%) (Auto) 9 % (0-9) Eosinophils (%) (Auto) 1 % (0-3) Basophils (%) (Auto) 1 % (0-3) Neutrophils # (Auto) 3.5 x10^3uL (1.8-7.7) Lymphocytes # (Auto) 0.6 x10^3/uL (1.0-4.8) Monocytes # (Auto) 0.4 x10^3/uL (0.0-1.1) Eosinophils # (Auto) 0.0 x10^3/uL (0.0-0.7) Basophils # (Auto) 0.1 x10^3/uL (0.0-0.2) Sodium Level 135 mmol/L (136-145) Potassium Level 4.2 mmol/L (3.5-5.1) Chloride Level 97 mmol/L (98-107) Carbon Dioxide Level 30 mmol/L (21-32) Anion Gap 8 (6-14) Blood Urea Nitrogen 30 mg/dL (7-20) Creatinine 6.2 mg/dL (0.6-1.0) Estimated GFR (Cockcroft-Gault) 8.2 Glucose Level 112 mg/dL (70-99) Calcium Level 8.6 mg/dL (8.5-10.1) Laboratory Tests Test 09/30/18 16:48 09/30/18 20:47 10/01/18 06:45 10/01/18 07:26 Glucose (Fingerstick) 91 mg/dL (70-99) 117 mg/dL (70-99) 110 mg/dL (70-99) Clostridium difficile Toxin B Gene Positive (Negative) Test 10/01/18 10:50 10/01/18 11:16 White Blood Count 4.6 x10^3/uL (4.0-11.0) Red Blood Count 2.10 x10^6/uL (3.50-5.40) Hemoglobin 8.1 g/dL (12.0-15.5) Hematocrit 23.4 % (36.0-47.0) Mean Corpuscular Volume 111 fL (79-100) Mean Corpuscular Hemoglobin 39 pg (25-35) Mean Corpuscular Hemoglobin Concent 35 g/dL (31-37) Red Cell Distribution Width 15.3 % (11.5-14.5) Platelet Count 91 x10^3/uL (140-400) Neutrophils (%) (Auto) 77 % (31-73) Lymphocytes (%) (Auto) 13 % (24-48) Monocytes (%) (Auto) 9 % (0-9) Eosinophils (%) (Auto) 1 % (0-3) Basophils (%) (Auto) 1 % (0-3) Neutrophils # (Auto) 3.5 x10^3uL (1.8-7.7) Lymphocytes # (Auto) 0.6 x10^3/uL (1.0-4.8) Monocytes # (Auto) 0.4 x10^3/uL (0.0-1.1) Eosinophils # (Auto) 0.0 x10^3/uL (0.0-0.7) Basophils # (Auto) 0.1 x10^3/uL (0.0-0.2) Sodium Level 135 mmol/L (136-145) Potassium Level 4.2 mmol/L (3.5-5.1) Chloride Level 97 mmol/L (98-107) Carbon Dioxide Level 30 mmol/L (21-32) Anion Gap 8 (6-14) Blood Urea Nitrogen 30 mg/dL (7-20) Creatinine 6.2 mg/dL (0.6-1.0) Estimated GFR (Cockcroft-Gault) 8.2 Glucose Level 112 mg/dL (70-99) Calcium Level 8.6 mg/dL (8.5-10.1) Glucose (Fingerstick) 103 mg/dL (70-99) Review All relevant outside records, renal labs, imaging studies, telemetry/EKG's were reviewed. GINO TAN MD Oct 01, 2018 16:02
[2018-10-01] MEDS ORDERED: VANCOMYCIN 125 MG/2.5 ML ORAL SOLUTION. PO SCH (17:00)
[2018-10-01] MEDS: VANCOMYCIN 125 MG/2.5 ML ORAL SOLUTION. PO SCH ×2 (17:28→21:01)
[2018-10-01 19:00] VITALS: BP 103/61
[2018-10-01 23:00] VITALS: BP 109/57
[2018-10-02] MEDS: ALBUTEROL SULFATE 2.5 MG/3 ML NEBU. NEB PRN ×2 (02:00→13:04)
[2018-10-02 03:00] VITALS: BP 118/65
[2018-10-02 04:17] LABS: BASO % 1 % (0-3); EOS # 0.1 x10^3/uL (0.0-0.7); EOS % 2 % (0-3); HEMATOCRIT 23.6 % (36.0-47.0); HEMOGLOBIN 8.1 g/dL (12.0-15.5); LYMPH # 0.6 x10^3/uL (1.0-4.8); LYMPH % 14 % (24-48); MEAN CORPUSCULAR HEMOGLOBIN 38 pg (25-35); MEAN CORPUSCULAR HGB CONC 34 g/dL (31-37); MEAN CORPUSCULAR VOLUME 112 fL (79-100); MONO # 0.4 x10^3/uL (0.0-1.1); MONO % 10 % (0-9); NEUT # 3.1 x10^3uL (1.8-7.7); NEUT % 73 % (31-73); PLATELET COUNT 87 x10^3/uL (140-400); RED BLOOD COUNT 2.12 x10^6/uL (3.50-5.40); RED CELL DISTRIBUTION WIDTH 15.3 % (11.5-14.5); WHITE BLOOD COUNT 4.3 x10^3/uL (4.0-11.0)
[2018-10-02] MEDS: HEPARIN for SUB-Q USE 5,000 UNIT/ML VIAL. SQ SCH ×2 (04:18→12:40)
[2018-10-02] MEDS: diphenhydrAMINE HCL 25 MG CAPSULE PO PRN ×2 (04:18→10:02)
[2018-10-02 04:45] LABS: CALCIUM 8.5 mg/dL (8.5-10.1); CREATININE 7.1 mg/dL (0.6-1.0); POTASSIUM 4.1 mmol/L (3.5-5.1)
[2018-10-02 07:00] VITALS: BP 113/56
[2018-10-02] MEDS: PANTOPRAZOLE 40 MG TABLET.DR. PO SCH (07:40)
[2018-10-02] MEDS: CARVEDILOL 12.5 MG TABLET. PO SCH (08:00)
[2018-10-02] MEDS ORDERED: TRAM50TA PO (08:26)
[2018-10-02] MEDS ORDERED: VANC500V PO (08:26)
[2018-10-02] MEDS: LACTOBACILLUS RHAMNOSUS GG 1 CAPSULE. PO SCH (08:35)
[2018-10-02] MEDS: VANCOMYCIN 125 MG/2.5 ML ORAL SOLUTION. PO SCH ×2 (08:35→13:30)
[2018-10-02] MEDS: amLODIPine BESYLATE 10 MG TABLET PO SCH (09:00)
[2018-10-02] MEDS ORDERED: IV NORMAL SALINE 1000ML BAG 1,000 ML IV PRN ×2 (09:33)
[2018-10-02] MEDS ORDERED: DIALYSIS PATIENT. MC PRN (09:45)
--- NOTE | 2018-10-02 10:56 | PDOC ---
Subjective: Subjective: Feels better. Now says her sister was sick on Thanksgiving (n/v, diarrhea), wonders if she got sick from being around her. Tolerating PO, no n/v, less abd pain, diarrhea slowing. Objective: Objective: Per RN - possible DC. Vital Signs: Vital Signs Date Time Temp Pulse Resp B/P (MAP) Pulse Ox O2 Delivery O2 Flow Rate FiO2 10/02/18 08:00 Room Air 10/02/18 07:00 97.9 75 113/56 (75) 95 97.9 10/02/18 03:00 20 Labs: Laboratory Tests Test 10/01/18 11:16 10/01/18 20:12 Glucose (Fingerstick) 103 mg/dL (70-99) 127 mg/dL (70-99) PE: GEN: dialyzing LUNGS: CTAB HEART: RRR ABD: soft, less tender NEURO/PSYCH: A & O 3 A/P: C Diff - diarrhea slowing, on vanco GERD, Hep C/cirrhosis -- Improved GI-hernandez, DC per primary. ?change/stop PPI w/ recurrent C Diff IRIS SZYMANSKI Oct 02, 2018 10:56
--- NOTE | 2018-10-02 11:24 | PDOC ---
SUBJECTIVE ROS No complaints, seen on HD OBJECTIVE Vital Signs Vital Signs Date Time Temp Pulse Resp B/P (MAP) Pulse Ox O2 Delivery O2 Flow Rate FiO2 10/02/18 08:00 Room Air 10/02/18 07:00 97.9 75 113/56 (75) 95 97.9 10/02/18 03:00 20 I & 0 Intake and Output 10/02/18 07:00 Intake Total 1420 ml Balance 1420 ml Intake Oral 1420 ml # Voids 2 # Bowel Movements 1 PHYSICAL EXAM Physical Exam GENERAL: She is alert, nad HEART: Normal S1, S2. Neck Supple LUNGS: Clear. ABDOMEN: Soft, distended, tender. EXTREMITIES: trace edema. SKIN: No rashes. GENITOURINARY: No shaw NECK: No jugular venous distention. 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 COMMENT/RELEVANT DATA Meds Current Medications Medications (Trade) Dose Ordered Sig/Kimberly Start Time Stop Time Status Last Admin Dose Admin Acetaminophen (Tylenol) 650 mg PRN Q6HRS PRN 10/01/18 09:00 Acetaminophen/ Hydrocodone Bitart (Lortab 5/325) 1 tab PRN Q4HRS PRN 09/30/18 15:30 10/01/18 21:16 1 TAB Albuterol Sulfate (Ventolin Neb Soln) 2.5 mg PRN Q4HRS PRN 10/01/18 09:15 10/02/18 02:00 2.5 MG Amlodipine Besylate (Norvasc) 10 mg DAILY 10/01/18 09:00 10/01/18 10:30 10 MG Carvedilol (Coreg) 25 mg BIDWMEALS 09/30/18 17:00 10/01/18 17:28 25 MG Diphenhydramine HCl (Benadryl) 25 mg PRN Q6HRS PRN 10/01/18 09:15 10/02/18 10:02 25 MG Docusate Sodium (Colace) 100 mg PRN DAILY PRN 10/01/18 09:00 Heparin Sodium (Porcine) (Heparin Sodium) 5,000 unit Q8HRS 10/01/18 14:00 Info (PHARMACY MONITORING -- do not chart) 1 each PRN DAILY PRN 10/02/18 09:45 Iohexol (Omnipaque 300 Mg/ml) 60 ml 1X ONCE 09/30/18 10:45 09/30/18 10:47 DC 09/30/18 10:42 60 ML Lactobacillus Rhamnosus (Culturelle) 1 cap BID 09/30/18 21:00 10/02/18 08:35 1 CAP Metoprolol Succinate (Toprol Xl) 50 mg DAILY 10/01/18 09:00 10/01/18 09:00 DC Morphine Sulfate (Morphine Sulfate) 2 mg PRN Q2HR PRN 10/01/18 09:00 Ondansetron HCl (Zofran) 4 mg PRN Q6HRS PRN 10/01/18 09:00 Pantoprazole Sodium (Protonix) 40 mg DAILYAC 10/01/18 07:30 Cancel Polyethylene Glycol (miraLAX PACKET) 17 gm PRN DAILY PRN 10/01/18 09:00 Sodium Chloride 1,000 ml @ 400 mls/hr Q2H30M PRN 10/02/18 09:33 10/02/18 21:32 Tramadol HCl (Ultram) 50 mg PRN Q6HRS PRN 10/01/18 09:00 Vancomycin HCl (Vancomycin Oral Solution) 125 mg [id number] 10/01/18 17:00 UNV Zolpidem Tartrate (Ambien) 5 mg PRN QHS PRN 09/30/18 20:30 09/30/18 21:01 5 MG Lab Laboratory Tests Test 10/01/18 20:12 10/02/18 04:00 Glucose (Fingerstick) 127 mg/dL (70-99) White Blood Count 4.3 x10^3/uL (4.0-11.0) Red Blood Count 2.12 x10^6/uL (3.50-5.40) Hemoglobin 8.1 g/dL (12.0-15.5) Hematocrit 23.6 % (36.0-47.0) Mean Corpuscular Volume 112 fL (79-100) Mean Corpuscular Hemoglobin 38 pg (25-35) Mean Corpuscular Hemoglobin Concent 34 g/dL (31-37) Red Cell Distribution Width 15.3 % (11.5-14.5) Platelet Count 87 x10^3/uL (140-400) Neutrophils (%) (Auto) 73 % (31-73) Lymphocytes (%) (Auto) 14 % (24-48) Monocytes (%) (Auto) 10 % (0-9) Eosinophils (%) (Auto) 2 % (0-3) Basophils (%) (Auto) 1 % (0-3) Neutrophils # (Auto) 3.1 x10^3uL (1.8-7.7) Lymphocytes # (Auto) 0.6 x10^3/uL (1.0-4.8) Monocytes # (Auto) 0.4 x10^3/uL (0.0-1.1) Eosinophils # (Auto) 0.1 x10^3/uL (0.0-0.7) Basophils # (Auto) 0.0 x10^3/uL (0.0-0.2) Sodium Level 134 mmol/L (136-145) Potassium Level 4.1 mmol/L (3.5-5.1) Chloride Level 96 mmol/L (98-107) Carbon Dioxide Level 30 mmol/L (21-32) Anion Gap 8 (6-14) Blood Urea Nitrogen 39 mg/dL (7-20) Creatinine 7.1 mg/dL (0.6-1.0) Estimated GFR (Cockcroft-Gault) 7.0 Glucose Level 127 mg/dL (70-99) Calcium Level 8.5 mg/dL (8.5-10.1) Results All relevant outside records, renal labs, imaging studies, telemetry/EKG's were reviewed. GINO TAN MD Oct 02, 2018 11:24
--- NOTE | 2018-10-02 13:31 | PDOC3 ---
Discharge Summary [facility] Date of Admission: Sep 30, 2018 Discharge Date: Oct 02, 2018 Admitting Diagnosis gastraenteritis with diarrhea, n/v,cdiff colitis End-stage renal disease, on dialysis TTSat diabetes with diet control only hypertension; hyperlipidemia; morbid obesity h/o hep c, EARly cirrhosis Final Diagnosis CONSULTS gi Brief Hospital Course Ms. Fernandez is a 63 old F, on HD FOR ESRD, came for N/V, diarrhea. + cdiff. pt's diarrhea resolved from yesterday, no N/V, eats well. stable to go home, dc with vanco 125mg po qid x14ds. dc protonix since cdiff now. dc metoprolol , cont coreg and amlodipine. dc time 35min. General: Alert, Oriented X3, Cooperative Heart: Regular rate, Normal S1, Normal S2 Lungs: Clear Abdomen: Normal bowel sounds, Soft, No tenderness Extremities: No clubbing, No cyanosis Skin: No rashes Patient History: Family history: Diabetes mellitus (situation) G8 DAUGHTER G8 DAUGHTER Family history: Gastrointestinal disease (situation) 32 MOTHER ( of pancreatic cancer) Family history: Hypertension (situation) G8 BROTHER Disposition home CONDITION AT DISCHARGE: Improved, Stable Scheduled Amlodipine Besylate (Amlodipine Besylate), 10 MG PO DAILY, (Reported) Carvedilol (Coreg), 25 MG PO BIDWMEALS, (Reported) Lactobacillus Rhamnosus Gg (Culturelle), 1 CAP PO BID Vancomycin Hcl (Vancomycin Hcl), 125 MG PO [id number] Scheduled PRN Polyethylene Glycol 3350 (Miralax), 1 PACKET PO PRN DAILY PRN for CONSTIPATION, (Reported) Tramadol Hcl (Tramadol Hcl), 50 MG PO PRN Q6HRS PRN for MILD TO MODERATE PAIN Discontinued Medications Metoprolol Succinate (Toprol Xl), 1 TAB PO DAILY, (Reported) ALEX CASTRO MD Oct 02, 2018 13:31
[2018-10-02 15:00] VITALS: BP 105/49
== END 2018-10-02 15:45 | disposition home or self-care (01) | DRG 371 ==
LOC: ER 09:39 → 5 NORTH 11:40
PROVIDERS: ADMIT Internal Medicine; ATTEND Internal Medicine
PROC: 5A1D70Z Performance of Urinary Filtration, Intermittent, Less than 6 Hours Per Day (ICD-10-PCS; principal; 2018-10-01)
PROC: 5A1D70Z Performance of Urinary Filtration, Intermittent, Less than 6 Hours Per Day (ICD-10-PCS; 2018-10-01)
DX: A04.71 Enterocolitis due to Clostridium difficile, recurrent (principal); N18.6 End stage renal disease; K76.6 Portal hypertension; I12.0 Hypertensive chronic kidney disease with stage 5 chronic kidney disease or end stage renal disease; E87.1 Hypo-osmolality and hyponatremia; E11.22 Type 2 diabetes mellitus with diabetic chronic kidney disease; D64.9 Anemia, unspecified; K21.9 Gastro-esophageal reflux disease without esophagitis; E78.5 Hyperlipidemia, unspecified; M06.9 Rheumatoid arthritis, unspecified; B18.2 Chronic viral hepatitis C; K70.30 Alcoholic cirrhosis of liver without ascites; E21.3 Hyperparathyroidism, unspecified; E66.01 Morbid (severe) obesity due to excess calories; Z90.710 Acquired absence of both cervix and uterus; Z99.2 Dependence on renal dialysis; Z83.3 Family history of diabetes mellitus; Z91.15 Patient's noncompliance with renal dialysis; Z90.49 Acquired absence of other specified parts of digestive tract; Z87.19 Personal history of other diseases of the digestive system; Z82.49 Family history of ischemic heart disease and other diseases of the circulatory system; Z80.0 Family history of malignant neoplasm of digestive organs; Z68.32 Body mass index [BMI] 32.0-32.9, adult
CPT/HCPCS: 36415; 71045; 74177; 80047; 80048; 80053; 82553; 82962; 83690; 84484; 85025; 85610; 86706; 87340; 87493; 93005; 94640; 96374; J2405; J7040; J7613; Q0163; Q9967; 99285-25

== ENCOUNTER 2019-02-14 14:15 | Inpatient (IN) | payer OTHER ==
[~2019-02-14] VITALS: Ht 157.5 cm; Wt 82.7 kg
[2019-02-14] VITALS (8 sets, daily range): BP systolic 112–139; BP diastolic 48–77
[~2019-02-14 14:15] MED LIST changes: -AMLO10TA6 PO; +AMLO10TA8 PO; +CALC667T4 PO; +FOLI0.8T3 PO; +FOLI1TAB16 PO; +PANT20TA2 PO; +TRAM50TA PO; +VANC500V PO
[2019-02-14] MEDS ORDERED: ONDANSETRON PF 4 MG/2 ML VIAL. IV ONE (14:30)
[2019-02-14] MEDS ORDERED: PANTOPRAZOLE IV PUSH 40 MG VIAL. IVP ONE (14:30)
[2019-02-14] MEDS: fentaNYL PF VIAL 100 MCG/2 ML VIAL IV PRN ×3 (14:56→19:54)
[2019-02-14 14:58] LABS: BASO # 0.1 x10^3/uL (0.0-0.2); BASO % 1 % (0-3); EOS # 0.1 x10^3/uL (0.0-0.7); EOS % 1 % (0-3); LYMPH % 14 % (24-48); MEAN CORPUSCULAR HEMOGLOBIN 35 pg (25-35); MEAN CORPUSCULAR HGB CONC 34 g/dL (31-37); MEAN CORPUSCULAR VOLUME 104 fL (79-100); MONO # 0.8 x10^3/uL (0.0-1.1); MONO % 12 % (0-9); NEUT # 5.3 x10^3uL (1.8-7.7); NEUT % 73 % (31-73); PLATELET COUNT 198 x10^3/uL (140-400); RED CELL DISTRIBUTION WIDTH 16.7 % (11.5-14.5); WHITE BLOOD COUNT 7.3 x10^3/uL (4.0-11.0)
[2019-02-14 15:01] LABS: HEMATOCRIT 15.5 % (36.0-47.0); HEMOGLOBIN 5.2 g/dL (12.0-15.5)
[2019-02-14 15:08] LABS: CALCIUM 8.6 mg/dL (8.5-10.1); CREATININE 3.3 mg/dL (0.6-1.0); POTASSIUM 3.2 mmol/L (3.5-5.1); PROTHROMBIN TIME PATIENT 15.1 SEC (11.7-14.0)
[2019-02-14 15:14] LABS: ALBUMIN 2.5 g/dL (3.4-5.0); ALBUMIN/GLOBULIN RATIO 0.5 (1.0-1.7); MAGNESIUM 1.6 mg/dL (1.8-2.4); TOTAL BILIRUBIN 0.5 mg/dL (0.2-1.0); TOTAL PROTEIN 7.6 g/dL (6.4-8.2)
[2019-02-14] MEDS ORDERED: ONDANSETRON PF 4 MG/2 ML VIAL. IV PRN (15:30)
[2019-02-14] MEDS ORDERED: POTASSIUM CHLORIDE 20 MEQ TABLET.ER. PO ONE (15:30)
[2019-02-14] MEDS: PANTOPRAZOLE SODIUM IV DRIP 80 MG in IV NORMAL SALINE 100ML 100 ML IV SCH (15:38)
--- NOTE | 2019-02-14 15:53 | PDOC1 ---
History and Physical Date of Admission Date of Admission DATE: 02/14/19 TIME: 15:51 Identification/Chief Complaint Chief Complaint Hematemesis Source Source: Chart review, Patient History of Present Illness History of Present Illness Ms Fernandez is a 63yo F with PMHx HTN, HLD, ESRD on HD, GERD, C Diff, cirrhosis , RA, DM, hyperparathyroidism who p/w dark vomit and hematochezia. Found with hemoccult positive stool and Hb of 5.2 in ED. Says last dialyzed today where this occurred. Denies change in medications. No acute findings on CT. On PPI drip per ER. She is asking for a diet and pain medication but cannot localize any pain in her body. Past Medical History Cardiovascular: HTN, Hyperlipidemia Pulmonary: No pertinent hx GI: Constipation, GERD, GI bleed Heme/Onc: Anemia NOS Hepatobiliary: No pertinent hx, Hep A/B/C Psych: Addictions Rheumatologic: Rheumatoid arthritis Infectious disease: No pertinent hx Renal/: Chronic renal failure, Hematuria Endocrine: Diabetes, Hyperparathyroidism Past Surgical History Past Surgical History: Cholecystectomy, Tonsillectomy, Hysterectomy, Other Family History Family History: High Cholestrol, Hypertension, Family History Unknown Social History ALCOHOL: other Drugs: None Current Medications Current Medications Current Medications Fentanyl Citrate (Fentanyl 2ml Vial) 50 mcg PRN Q15MIN PRN IV PAIN GREATER THAN 3/10 Last administered on 02/14/19at 14:56; Start 02/14/19 at 14:30; Stop at 14:29 Pantoprazole Sodium (PROTONIX VIAL for IV PUSH) 40 mg 1X ONCE IVP Last administered on 02/14/19at 14:56; Start 02/14/19 at 14:30; Stop 02/14/19 at 14:36 ; Status DC Ondansetron HCl (Zofran) 4 mg 1X ONCE IV Last administered on 02/14/19at 14:56 ; Start 02/14/19 at 14:30; Stop 02/14/19 at 14:36; Status DC Potassium Chloride (Klor-Con) 40 meq 1X ONCE PO Last administered on at 15:41; Start 02/14/19 at 15:30; Stop 02/14/19 at 15:31; Status DC Pantoprazole Sodium 80 mg/ Sodium Chloride 100 ml @ 10 mls/hr Q10H IV Last administered on 02/14/19at 15:38; Start 02/14/19 at 15:30 Ondansetron HCl (Zofran) 4 mg PRN Q8HRS PRN IV NAUSEA/VOMITING; Start 02/14/19 at 15:30; Stop 02/15/19 at 15:29 Fentanyl Citrate (Fentanyl 2ml Vial) 50 mcg PRN Q4HRS PRN IV PAIN; Start at 15:30 Active Scripts Active Protonix (Pantoprazole Sodium) 20 Mg Tablet.dr 40 Tab PO DAILY Tramadol Hcl 50 Mg Tablet 50 Mg PO PRN Q6HRS PRN Vancomycin Hcl 500 Mg Vial 125 Mg PO [id number] 13 Days Culturelle (Lactobacillus Rhamnosus Gg) 1 Each Cap.sprink 1 Cap PO BID 14 Days Reported Nephro-Edward Tablet (Folic Acid/Vitamin B Comp W-C) 0.8 Mg Tablet 1 Tab PO DAILY Calcium Acetate 667 Mg Tablet 667 Mg PO TIDWMEALS Carvedilol 25 Mg Tablet 25 Mg PO BID Folic Acid 1 Mg Tablet 1 Mg PO DAILY Miralax (Polyethylene Glycol 3350) 17 Gm Powd.pack 1 Packet PO PRN DAILY PRN Amlodipine Besylate 10 Mg Tablet 10 Mg PO DAILY Allergies Allergies: Coded Allergies: I S O L A T I O N *CONTACT* (Verified Allergy, Unknown, 11/04/18) chronic C.diff acetaminophen (Verified Adverse Reaction, Intermediate, Nausea and Vomiting, 11/05/18) ROS General: YES: Fatigue, Malaise, Appetite; No: Chills, Night Sweats, Other PSYCHOLOGICAL ROS: YES: Anxiety; No: Behavioral Disorder, Concentration difficultie, Decreased libido, Depression, Disorientation, Hallucinations, Hostility, Irritablity, Memory difficulties, Mood Swings, Obsessive thoughts, Physical abuse, Sexual abuse, Sleep disturbances, Suicidal ideation, Other Eyes: No Blurry vision, No Decreased vision, No Double vision, No Dry eyes, No Excessive tearing, No Eye Pain, No Itchy Eyes, No Loss of vision, No Photophobia , No Scotomata, No Uses contacts, No Uses glasses, No Other HEENT: No: Heacaches, Visual Changes, Hearing change, Nasal congestion, Nasal discharge, Oral lesions, Sinus pain, Sore Throat, Epistaxis, Sneezing, Snoring, Tinnitus, Vertigo, Vocal changes, Other ALLERGY AND IMMUNOLOGY: No: Hives, Insect Bite Sensitivity, Itchy/Watery Eyes, Nasal Congestion, Post Nasal Drip, Seasonal Allergies, Other Hematological and Lymphatic: YES: Bleeding Problems, Blood Transfusions; No: Blood Clots, Brusing, Night Sweats, Pallor, Swollen Lymph Nodes, Other ENDOCRINE: No: Breast Changes, Galactorrhea, Hair Pattern Changes, Hot Flashes , Malaise/lethargy, Mood Swings, Palpitations, Polydipsia/polyuria, Skin Changes , Temperature Intolerance, Unexpected Weight Changes, Other Breast: No New/Changing Breast Lumps, No Nipple changes, No Nipple discharge, No Other Respiratory: No: Cough, Hemoptysis, Orthopnea, Pleuritic Pain, Shortness of breath, SOB with excertion, Sputum Changes, Stridor, Tachypnea, Wheezing, Other Cardiovascular: yes Chest Pain; No Palpitations, No Orthopnea, No Paroxysmal Noc. Dyspnea, No Edema, No Lt Headedness, No Other Gastrointestinal: Yes Nausea, Yes Vomiting, Yes Abdominal Pain, Yes Melena; No Diarrhea, No Constipation, No Hematochezia, No Other Genitourinary: No Dysuria, No Frequency, No Incontinence, No Hematuria, No Retention, No Discharge, No Urgency, No Pain, No Flank Pain, No Other, No , No , No , No , No , No , No Musculoskeletal: No Gait Disturbance, No Joint Pain, No Joint Stiffness, No Joint Swelling, No Muscle Pain, No Muscular Weakness, No Pain In:, No Swelling In:, No Other Neurological: No Behavorial Changes, No Bowel/Bladder ControlChng, No Confusion , No Dizziness, No Gait Disturbance, No Headaches, No Impaired Coord/balance, No Memory Loss, No Numbness/Tingling, No Seizures, No Speech Problems, No Tremors, No Visual Changes, No Weakness, No Other Skin: No Dry Skin, No Eczema, No Hair Changes, No Lumps, No Mole Changes, No Mottling, No Nail Changes, No Pruritus, No Rash, No Skin Lesion Changes, No Other, No Acne Physical Exam General: Alert, Oriented X3, Cooperative, No acute distress HEENT: Atraumatic, PERRLA, EOMI, Mucous membr. moist/pink Lungs: Clear to auscultation, Normal air movement Heart: S1S2, RRR, no gallops Abdomen: Normal bowel sounds, Soft, No tenderness, No hepatosplenomegaly, No masses Extremities: No clubbing, No cyanosis, No edema, Normal pulses, No tenderness/ swelling Skin: No rashes, No breakdown, No significant lesion Neuro: Normal gait, Normal speech, Strength at 5/5 X4 ext, Normal tone, Sensation intact, Cranial nerves 3-12 NL, Reflexes 2+ Psych/Mental Status: Mental status NL, Mood NL Vitals Vitals Vital Signs Date Time Temp Pulse Resp B/P (MAP) Pulse Ox O2 Delivery O2 Flow Rate FiO2 02/14/19 15:26 18 02/14/19 14:19 97.8 93 118/56 (76) 99 Room Air 97.8 Labs Labs Laboratory Tests Test 02/14/19 14:50 White Blood Count 7.3 x10^3/uL (4.0-11.0) Red Blood Count 1.50 x10^6/uL (3.50-5.40) Hemoglobin 5.2 g/dL (12.0-15.5) Hematocrit 15.5 % (36.0-47.0) Mean Corpuscular Volume 104 fL (79-100) Mean Corpuscular Hemoglobin 35 pg (25-35) Mean Corpuscular Hemoglobin Concent 34 g/dL (31-37) Red Cell Distribution Width 16.7 % (11.5-14.5) Platelet Count 198 x10^3/uL (140-400) Neutrophils (%) (Auto) 73 % (31-73) Lymphocytes (%) (Auto) 14 % (24-48) Monocytes (%) (Auto) 12 % (0-9) Eosinophils (%) (Auto) 1 % (0-3) Basophils (%) (Auto) 1 % (0-3) Neutrophils # (Auto) 5.3 x10^3uL (1.8-7.7) Lymphocytes # (Auto) 1.0 x10^3/uL (1.0-4.8) Monocytes # (Auto) 0.8 x10^3/uL (0.0-1.1) Eosinophils # (Auto) 0.1 x10^3/uL (0.0-0.7) Basophils # (Auto) 0.1 x10^3/uL (0.0-0.2) Prothrombin Time 15.1 SEC (11.7-14.0) Prothromb Time International Ratio 1.2 (0.8-1.1) Activated Partial Thromboplast Time 26 SEC (24-38) Sodium Level 134 mmol/L (136-145) Potassium Level 3.2 mmol/L (3.5-5.1) Chloride Level 93 mmol/L (98-107) Carbon Dioxide Level 33 mmol/L (21-32) Anion Gap 8 (6-14) Blood Urea Nitrogen 28 mg/dL (7-20) Creatinine 3.3 mg/dL (0.6-1.0) Estimated GFR (Cockcroft-Gault) 17.0 BUN/Creatinine Ratio 8 (6-20) Glucose Level 113 mg/dL (70-99) Calcium Level 8.6 mg/dL (8.5-10.1) Magnesium Level 1.6 mg/dL (1.8-2.4) Total Bilirubin 0.5 mg/dL (0.2-1.0) Aspartate Amino Transf (AST/SGOT) 45 U/L (15-37) Alanine Aminotransferase (ALT/SGPT) 15 U/L (14-59) Alkaline Phosphatase 153 U/L (46-116) Troponin I Quantitative 0.463 ng/mL (0.000-0.055) WT-Qvl-L-Type Natriuretic Peptide 57471 pg/mL (0-124) Total Protein 7.6 g/dL (6.4-8.2) Albumin 2.5 g/dL (3.4-5.0) Albumin/Globulin Ratio 0.5 (1.0-1.7) Lipase 119 U/L (73-393) Laboratory Tests Test 02/14/19 14:50 White Blood Count 7.3 x10^3/uL (4.0-11.0) Red Blood Count 1.50 x10^6/uL (3.50-5.40) Hemoglobin 5.2 g/dL (12.0-15.5) Hematocrit 15.5 % (36.0-47.0) Mean Corpuscular Volume 104 fL (79-100) Mean Corpuscular Hemoglobin 35 pg (25-35) Mean Corpuscular Hemoglobin Concent 34 g/dL (31-37) Red Cell Distribution Width 16.7 % (11.5-14.5) Platelet Count 198 x10^3/uL (140-400) Neutrophils (%) (Auto) 73 % (31-73) Lymphocytes (%) (Auto) 14 % (24-48) Monocytes (%) (Auto) 12 % (0-9) Eosinophils (%) (Auto) 1 % (0-3) Basophils (%) (Auto) 1 % (0-3) Neutrophils # (Auto) 5.3 x10^3uL (1.8-7.7) Lymphocytes # (Auto) 1.0 x10^3/uL (1.0-4.8) Monocytes # (Auto) 0.8 x10^3/uL (0.0-1.1) Eosinophils # (Auto) 0.1 x10^3/uL (0.0-0.7) Basophils # (Auto) 0.1 x10^3/uL (0.0-0.2) Prothrombin Time 15.1 SEC (11.7-14.0) Prothromb Time International Ratio 1.2 (0.8-1.1) Activated Partial Thromboplast Time 26 SEC (24-38) Sodium Level 134 mmol/L (136-145) Potassium Level 3.2 mmol/L (3.5-5.1) Chloride Level 93 mmol/L (98-107) Carbon Dioxide Level 33 mmol/L (21-32) Anion Gap 8 (6-14) Blood Urea Nitrogen 28 mg/dL (7-20) Creatinine 3.3 mg/dL (0.6-1.0) Estimated GFR (Cockcroft-Gault) 17.0 BUN/Creatinine Ratio 8 (6-20) Glucose Level 113 mg/dL (70-99) Calcium Level 8.6 mg/dL (8.5-10.1) Magnesium Level 1.6 mg/dL (1.8-2.4) Total Bilirubin 0.5 mg/dL (0.2-1.0) Aspartate Amino Transf (AST/SGOT) 45 U/L (15-37) Alanine Aminotransferase (ALT/SGPT) 15 U/L (14-59) Alkaline Phosphatase 153 U/L (46-116) Troponin I Quantitative 0.463 ng/mL (0.000-0.055) JO-Bta-A-Type Natriuretic Peptide 40931 pg/mL (0-124) Total Protein 7.6 g/dL (6.4-8.2) Albumin 2.5 g/dL (3.4-5.0) Albumin/Globulin Ratio 0.5 (1.0-1.7) Lipase 119 U/L (73-393) Images Images CT abdomen/pelvis - 1. No acute abdominal or pelvic abnormality. 2. Hepatic cirrhosis. 3. Stable nonobstructing right renal calculus. VTE Prophylaxis Ordered VTE Prophylaxis Devices: Yes VTE Pharmacological Prophylaxi: No Assessment/Plan Assessment/Plan A/P: Acute blood loss anemia - possibly multiple etiologies with h/o ETOH gastritis and cirrhosis, will consult GI. Cont PPI gtt. S/p 2u PRBC per ED ESRD on HD - will consult nephrology for dialysis inpatient H/o GERD on Prilosec QD. Denies dysphagia. Cirrhosis - h/o heavy alcohol use and Hep C (genotype 1a - possibly failed treatment in the past). Consulted GI H/o C Diff - will repeat toxin gene today H/o Rupal Hauser tear - S/p EGD (Dr. Faulkner) 04/2016 (for melena/anemia): Grade 1 esophagitis, alcoholic gastritis. For repeat EGD today likely Chronic anemia - Hgb usually in 8-9 range. HTN - will monitor HLD - stable, statin RA - will cont pain control DM - sliding scale, home meds Hyperparathyroidism - will defer to nephro for calcium, phos, vitamin d regulation FEN - Renal ADA, npo after midnight PPX - SCDs, ppi GTT FULL CODE Inpatient for acute blood loss for at least 2 midnights. MELY OLVERA MD Feb 14, 2019 15:52
--- NOTE | 2019-02-14 15:56 | RAD ---
PQRS Compliance Statement: One or more of the following individualized dose reduction techniques were utilized for this examination: 1. Automated exposure control 2. Adjustment of the mA and/or kV according to patient size 3. Use of iterative reconstruction technique CT ABDOMEN PELVIS WO CONTRAST Clinical Indication: LLQ pain, vomiting blood Comparison: CT abdomen and pelvis without contrast, March or 2018. Technique: Helical CT imaging of the abdomen and pelvis is performed without IV or oral contrast. Findings: Evaluation of solid organs and bowel is limited without oral and IV contrast, decreasing sensitivity for detection of pathology. Lung bases are clear. Calcified granulomas left lower lobe. Mitral valve prosthesis. Cardiac size normal. Cirrhotic liver. Recanalized paraumbilical vein. Cholecystectomy. No focal hepatic lesion, limited sensitivity with noncontrast CT. There are a few calcified granulomas in the spleen. Spleen size is normal. The pancreas is homogeneous. Adrenal glands normal. Nonobstructing right renal calculus redemonstrated. Moderate bilateral perinephric stranding. There is no hydronephrosis. Stomach unremarkable. No dilated small bowel. Small fat-containing umbilical hernia. No colon wall thickening. The appendix is normal. No abdominal adenopathy or free fluid. Urinary bladder is not well distended, otherwise normal. Hysterectomy. No pelvic free fluid. Intramedullary fermin of the right femur. Grade 1 anterolisthesis of L4 on L5. Vacuum disc phenomenon in the lumbar spine. IMPRESSION: 1. No acute abdominal or pelvic abnormality. 2. Hepatic cirrhosis. 3. Stable nonobstructing right renal calculus. Electronically signed by: Dilan Johnson MD (02/14/2019 3:53 PM) [facility] [place]
--- NOTE | 2019-02-14 16:06 | PHYS DOC ---
Past Medical History Past Medical History: Diabetes-Type II, High Cholesterol, Heart Disease, Hypertension, Renal Failure Additional Past Medical Histor: DIARRHEA Past Surgical History: Cholecystectomy Additional Past Surgical Histo: RT KNEE, SHUNT RIGHT CHEST, dialysis graft Alcohol Use: Occasionally Drug Use: None Adult General Chief Complaint Chief Complaint: ABDOMINAL PAIN HPI HPI Patient is a 63 year old female with a history of hypertension, diabetes type 2 end-stage renal disease on dialysis Saturday, , Saturday who presents today from dialysis, patient states 30 minutes before her session was over she started vomiting dark bloody emesis and developed left sided abdominal pain, patient describes the abdominal pain as mild and cramping. She states she's had similar episode before and had to be admitted and received some blood. Denies any bloody stools. Review of Systems Review of Systems Constitutional: Denies fever or chills [] Eyes: Denies change in visual acuity, redness, or eye pain [] HENT: Denies nasal congestion or sore throat [] Respiratory: Denies cough or shortness of breath [] Cardiovascular: No additional information not addressed in HPI [] GI: Reports vomiting blood. Reports left sided abdominal pain. Denies bloody stools or diarrhea [] : Denies dysuria or hematuria [] Musculoskeletal: Denies back pain or joint pain [] Integument: Denies rash or skin lesions [] Neurologic: Denies headache, focal weakness or sensory changes [] All other systems were reviewed and found to be within normal limits, except as documented in this note. Current Medications Current Medications Current Medications Medications (Trade) Dose Ordered Sig/Kimberly Start Time Stop Time Status Last Admin Dose Admin Fentanyl Citrate (Fentanyl 2ml Vial) 50 mcg PRN Q4HRS PRN 02/14/19 15:30 Ondansetron HCl (Zofran) 4 mg PRN Q8HRS PRN 02/14/19 15:30 02/15/19 15:29 Pantoprazole Sodium (PROTONIX VIAL for IV PUSH) 40 mg 1X ONCE 02/14/19 14:30 02/14/19 14:36 DC 02/14/19 14:56 40 MG Pantoprazole Sodium 80 mg/ Sodium Chloride 100 ml @ 10 mls/hr Q10H 02/14/19 15:30 02/14/19 15:38 10 MLS/HR Potassium Chloride (Klor-Con) 40 meq 1X ONCE 02/14/19 15:30 02/14/19 15:31 DC 02/14/19 15:41 40 MEQ Allergies Allergies Allergies Coded Allergies Type Severity Reaction Last Updated Verified I S O L A T I O N *CONTACT* Allergy Unknown 11/04/18 Yes acetaminophen Adverse Reaction Intermediate Nausea and Vomiting 11/05/18 Yes Physical Exam Physical Exam Constitutional: Well developed, well nourished, no acute distress, non-toxic appearance. [] HENT: Normocephalic, atraumatic, bilateral external ears normal, oropharynx moist, no oral exudates, nose normal. [] Exterior lips with dark emesis. Slight discoloration on the tongue suspicious of vomiting blood Eyes: PERRLA, EOMI, conjunctiva normal, no discharge. [] Neck: Normal range of motion, no tenderness, supple, no stridor. [] Cardiovascular:Heart rate regular rhythm, no murmur [] Lungs & Thorax: Bilateral breath sounds clear to auscultation [] Abdomen: Bowel sounds normal, soft, diffuse tenderness to the left side of the abdomen, no right upper quadrant or right lower quadrant tenderness, no masses, no pulsatile masses. [] Skin: Warm, dry, no erythema, no rash. [] Back: No tenderness, no CVA tenderness. [] Extremities: No tenderness, no cyanosis, no clubbing, ROM intact, no edema. [] Neurologic: Alert and oriented X 3, normal motor function, normal sensory function, no focal deficits noted. [] Psychologic: Affect normal, judgement normal, mood normal. [] Current Patient Data Vital Signs Vital Signs Date Time Temp Pulse Resp B/P (MAP) Pulse Ox O2 Delivery O2 Flow Rate FiO2 02/14/19 15:26 18 02/14/19 14:19 97.8 93 118/56 (76) 99 Room Air 97.8 Lab Values Laboratory Tests Test 02/14/19 14:50 White Blood Count 7.3 x10^3/uL (4.0-11.0) Red Blood Count 1.50 x10^6/uL (3.50-5.40) L Hemoglobin 5.2 g/dL (12.0-15.5) *L Hematocrit 15.5 % (36.0-47.0) *L Mean Corpuscular Volume 104 fL (79-100) H Mean Corpuscular Hemoglobin 35 pg (25-35) Mean Corpuscular Hemoglobin Concent 34 g/dL (31-37) Red Cell Distribution Width 16.7 % (11.5-14.5) H Platelet Count 198 x10^3/uL (140-400) Neutrophils (%) (Auto) 73 % (31-73) Lymphocytes (%) (Auto) 14 % (24-48) L Monocytes (%) (Auto) 12 % (0-9) H Eosinophils (%) (Auto) 1 % (0-3) Basophils (%) (Auto) 1 % (0-3) Neutrophils # (Auto) 5.3 x10^3uL (1.8-7.7) Lymphocytes # (Auto) 1.0 x10^3/uL (1.0-4.8) Monocytes # (Auto) 0.8 x10^3/uL (0.0-1.1) Eosinophils # (Auto) 0.1 x10^3/uL (0.0-0.7) Basophils # (Auto) 0.1 x10^3/uL (0.0-0.2) Prothrombin Time 15.1 SEC (11.7-14.0) H Prothrombin Time INR 1.2 (0.8-1.1) H PTT 26 SEC (24-38) Sodium Level 134 mmol/L (136-145) L Potassium Level 3.2 mmol/L (3.5-5.1) L Chloride Level 93 mmol/L (98-107) L Carbon Dioxide Level 33 mmol/L (21-32) H Anion Gap 8 (6-14) Blood Urea Nitrogen 28 mg/dL (7-20) H Creatinine 3.3 mg/dL (0.6-1.0) H Estimated GFR (Cockcroft-Gault) 17.0 BUN/Creatinine Ratio 8 (6-20) Glucose Level 113 mg/dL (70-99) H Calcium Level 8.6 mg/dL (8.5-10.1) Magnesium Level 1.6 mg/dL (1.8-2.4) L Total Bilirubin 0.5 mg/dL (0.2-1.0) Aspartate Amino Transferase (AST) 45 U/L (15-37) H Alanine Aminotransferase (ALT) 15 U/L (14-59) Alkaline Phosphatase 153 U/L (46-116) H Troponin I Quantitative 0.463 ng/mL (0.000-0.055) TK-Gdm-F-Type Natriuretic Peptide 10399 pg/mL (0-124) H Total Protein 7.6 g/dL (6.4-8.2) Albumin 2.5 g/dL (3.4-5.0) L Albumin/Globulin Ratio 0.5 (1.0-1.7) L Lipase 119 U/L (73-393) Laboratory Tests 02/14/19 14:50 Laboratory Tests 02/14/19 14:50 EKG EKG 15:[address] Chou sinus rate them heart rate 94 no STEMI[] Radiology/Procedures Radiology/Procedures []PROCEDURE: CT ABDOMEN PELVIS WO CONTRAST PQRS Compliance Statement: One or more of the following individualized dose reduction techniques were utilized for this examination: 1. Automated exposure control 2. Adjustment of the mA and/or kV according to patient size 3. Use of iterative reconstruction technique CT ABDOMEN PELVIS WO CONTRAST Clinical Indication: LLQ pain, vomiting blood Comparison: CT abdomen and pelvis without contrast, March or 2018. Technique: Helical CT imaging of the abdomen and pelvis is performed without IV or oral contrast. Findings: Evaluation of solid organs and bowel is limited without oral and IV contrast, decreasing sensitivity for detection of pathology. Lung bases are clear. Calcified granulomas left lower lobe. Mitral valve prosthesis. Cardiac size normal. Cirrhotic liver. Recanalized paraumbilical vein. Cholecystectomy. No focal hepatic lesion, limited sensitivity with noncontrast CT. There are a few calcified granulomas in the spleen. Spleen size is normal. The pancreas is homogeneous. Adrenal glands normal. Nonobstructing right renal calculus redemonstrated. Moderate bilateral perinephric stranding. There is no hydronephrosis. Stomach unremarkable. No dilated small bowel. Small fat-containing umbilical hernia. No colon wall thickening. The appendix is normal. No abdominal adenopathy or free fluid. Urinary bladder is not well distended, otherwise normal. Hysterectomy. No pelvic free fluid. Intramedullary fermin of the right femur. Grade 1 anterolisthesis of L4 on L5. Vacuum disc phenomenon in the lumbar spine. IMPRESSION: 1. No acute abdominal or pelvic abnormality. 2. Hepatic cirrhosis. 3. Stable nonobstructing right renal calculus. Electronically signed by: Dilan Johnson MD (02/14/2019 3:53 PM) [facility] [place] and SIGNED BY: DILAN JOHNSON MD DATE: 02/14/19 1553 Course & Med Decision Making Course & Med Decision Making Pertinent Labs and Imaging studies reviewed. (See chart for details) This is a 63-year-old female patient presenting to the ED today from dialysis for vomiting blood. On arrival to the ED lab work was done, patient was started on Protonix IV push. Hemoglobin 5.2 hematocrit 15.5, potassium 3.2, patient was given oral potassium replacement, creatinine 3.3, BUN 28. Troponin 0.463 patient has not chest pain no previous hx of elevated troponin CT of the abdomen and pelvic is negative for any acute findings. 2 units of blood were ordered, and Protonix drip. 15:[address] Mala BURTON who will follow-up with patient 15:28 spoke with Fredi 15:[address] Mcintyre who accepted patient for admission. Routine consult placed for nephrology Dragon Disclaimer Dragon Disclaimer This electronic medical record was generated, in whole or in part, using a voice recognition dictation system. Departure Departure Impression: Primary Impression: ESRD (end stage renal disease) on dialysis Additional Impressions: Anemia Elevated troponin Abdominal pain Disposition: 09 ADMITTED INPATIENT Condition: STABLE Referrals: UNKNOWN PCP NAME (PCP) Problem Qualifiers Additional Impressions: Anemia Anemia type: unspecified type Qualified Codes: D64.9 - Anemia, unspecified Abdominal pain Abdominal location: left lower quadrant Qualified Codes: R10.32 - Left lower quadrant pain ANNA MORENO [employer] Feb 14, 2019 16:06
--- NOTE | 2019-02-14 17:35 | NUR ---
Unable to obtain a line for blood administration after multiple attempts at insertion. Anesthesia paged to see if they would attempt to find access. They will be arriving shortly to attempt a peripheral.
--- NOTE | 2019-02-14 17:58 | NUR ---
Dilan from anesthesia here to see patient.
--- NOTE | 2019-02-14 18:01 | NUR ---
Spoke with Dr. Mcintyre by phone. Wants patient to be NPO except sips with meds. OK for central line if anesthesia is unable to obtain access for blood administration.
--- NOTE | 2019-02-14 23:42 | PDOC2 ---
CARDIOLOGY CONSULT NOTE CHEIF COMPLAINT: Elevated troponin evaluation per ER HPI: 63 y.o woman with pmhx as noted below presents to the hospital with hematemesis and severe anemia with Hgb of 5.2. For unclear reasons, a troponin was checked. Cardiology asked to see the patient to assess for ischemia. Patient at baseline is admitting to heavy alcohol use. She denies any chest pain. No syncope or palpitations. Does not recall any prior cardiac interventions. PMHX: ESRD HTN DLP Heavy alcohol use SOCHX: No smoking or illicit drug use. FAMHX: NC CURRENT MEDS: Current Medications Medications (Trade) Dose Ordered Sig/Kimberly Start Time Stop Time Status Last Admin Dose Admin Fentanyl Citrate (Fentanyl 2ml Vial) 50 mcg PRN Q4HRS PRN 02/14/19 15:30 02/14/19 19:54 50 MCG Ondansetron HCl (Zofran) 4 mg PRN Q8HRS PRN 02/14/19 15:30 02/15/19 15:29 Pantoprazole Sodium (PROTONIX VIAL for IV PUSH) 40 mg 1X ONCE 02/14/19 14:30 02/14/19 14:36 DC 02/14/19 14:56 40 MG Pantoprazole Sodium 80 mg/ Sodium Chloride 100 ml @ 10 mls/hr Q10H 02/14/19 15:30 02/14/19 15:38 10 MLS/HR Potassium Chloride (Klor-Con) 40 meq 1X ONCE 02/14/19 15:30 02/14/19 15:31 DC 02/14/19 15:41 40 MEQ ALLERGIES: Allergies Coded Allergies Type Severity Reaction Last Updated Verified I S O L A T I O N *CONTACT* Allergy Unknown 11/04/18 Yes acetaminophen Adverse Reaction Intermediate Nausea and Vomiting 11/05/18 Yes ROS: Negative unless otherwise noted above in HPI PHYSICAL EXAM: Vital Signs: Vital Signs Date Time Temp Pulse Resp B/P (MAP) Pulse Ox O2 Delivery O2 Flow Rate FiO2 02/14/19 23:00 100 17 127/50 (75) 98 Room Air 02/14/19 21:00 2.0 02/14/19 20:00 98.8 98.8 Physical Exam: GEN.: No apparent distress. Alert and oriented. HEENT: Head is normocephalic, atraumatic NECK: Supple. LUNGS: Clear to auscultation. HEART: RRR, S1, S2 present. Peripheral pulses intact, soft systolic murmur ABDOMEN: Soft, nontender. Positive bowel sounds. EXTREMITIES: Without any cyanosis. NEUROLOGIC: Normal speech, normal tone PSYCHIATRIC: Normal affect, normal mood. SKIN: No ulcerations DIAGNOSTIC TESTING: Trop at 0.4 EKG with non-specific st/t changes. Hgb less than 6 ASSESSMENT: 1. Elevated troponin - Type 2. 2. HTN 3. ESRD 4. Probable chronic diastolic HF 5. GIB 6. Alcohol abuse. PLAN: 1. Will obtain routine echo to rule out any significant CMP from her multiple risk factors. 2. Continue HD per renal team 3. No further troponins to be checked, discussed with nursing. Supportive care. If she has significant CMP, consider outpt w/u when anemia issues stabilized. Thanks GASTON JACKSON MD Feb 14, 2019 23:42
[2019-02-15] VITALS (29 sets, daily range): BP systolic 115–173; BP diastolic 40–74
[2019-02-15] MEDS: fentaNYL PF VIAL 100 MCG/2 ML VIAL IV PRN ×4 (01:45→20:21)
[2019-02-15] MEDS: PANTOPRAZOLE SODIUM IV DRIP 80 MG in IV NORMAL SALINE 100ML 100 ML IV SCH ×3 (02:30→21:30)
[2019-02-15 04:05] LABS: BASO # 0.1 x10^3/uL (0.0-0.2); BASO % 1 % (0-3); EOS # 0.1 x10^3/uL (0.0-0.7); EOS % 1 % (0-3); LYMPH # 1.2 x10^3/uL (1.0-4.8); LYMPH % 20 % (24-48); MEAN CORPUSCULAR HEMOGLOBIN 31 pg (25-35); MEAN CORPUSCULAR HGB CONC 34 g/dL (31-37); MEAN CORPUSCULAR VOLUME 92 fL (79-100); MONO # 0.6 x10^3/uL (0.0-1.1); MONO % 11 % (0-9); NEUT # 3.9 x10^3uL (1.8-7.7); NEUT % 67 % (31-73); PLATELET COUNT 157 x10^3/uL (140-400); RED BLOOD COUNT 2.06 x10^6/uL (3.50-5.40); RED CELL DISTRIBUTION WIDTH 24.4 % (11.5-14.5); WHITE BLOOD COUNT 5.9 x10^3/uL (4.0-11.0)
[2019-02-15 04:12] LABS: HEMATOCRIT 18.9 % (36.0-47.0); HEMOGLOBIN 6.4 g/dL (12.0-15.5)
[2019-02-15 04:17] LABS: ALBUMIN 2.1 g/dL (3.4-5.0); ALBUMIN/GLOBULIN RATIO 0.5 (1.0-1.7); CALCIUM 8.6 mg/dL (8.5-10.1); CREATININE 4.2 mg/dL (0.6-1.0); GFR 12.9; POTASSIUM 4.1 mmol/L (3.5-5.1); TOTAL BILIRUBIN 0.6 mg/dL (0.2-1.0); TOTAL PROTEIN 6.6 g/dL (6.4-8.2)
--- NOTE | 2019-02-15 04:25 | NUR ---
critically low H/H this morning, Dr Mcintyre paged and notified. no new orders at this time. will pass on in report, will continue to closely monitor.
--- NOTE | 2019-02-15 09:55 | PDOC ---
CARDIOLOGY PROGRESS NOTE SUBJECTIVE: No acute events overnight. Continues to have anemia despite transfusion. OBJECTIVE: Vital SIgns: Vital Signs Date Time Temp Pulse Resp B/P (MAP) Pulse Ox O2 Delivery O2 Flow Rate FiO2 02/15/19 09:00 93 16 144/50 (81) 94 Room Air 02/15/19 08:00 98.7 98.7 02/14/19 21:00 2.0 I & O Intake and Output 02/15/19 07:00 Intake Total 1157.5 ml Balance 1157.5 ml Intake Oral 0 ml IV Total 147.5 ml Blood Product 700 ml Blood Product IV Normal Saline Flush 310 ml Objective: Resting in bed comfortably. No acute distress Normal S1-S2 with a 3/6 systolic murmur unchanged from prior Soft abdomen No significant edema. Left upper extremity fistula is within normal limits. CURRENT MEDICATIONS: Current Medications Medications (Trade) Dose Ordered Sig/Kimberly Start Time Stop Time Status Last Admin Dose Admin Fentanyl Citrate (Fentanyl 2ml Vial) 50 mcg PRN Q4HRS PRN 02/14/19 15:30 02/15/19 01:45 50 MCG Ondansetron HCl (Zofran) 4 mg PRN Q8HRS PRN 02/14/19 15:30 02/15/19 15:29 Pantoprazole Sodium (PROTONIX VIAL for IV PUSH) 40 mg 1X ONCE 02/14/19 14:30 02/14/19 14:36 DC 02/14/19 14:56 40 MG Pantoprazole Sodium 80 mg/ Sodium Chloride 100 ml @ 10 mls/hr Q10H 02/14/19 15:30 02/15/19 08:54 10 MLS/HR Potassium Chloride (Klor-Con) 40 meq 1X ONCE 02/14/19 15:30 02/14/19 15:31 DC 02/14/19 15:41 40 MEQ DIAGNOSTIC TESTING: Hemoglobin 6.4 ASSESSMENT: 1. Anemia likely mixture of anemia of chronic disease and GI blood loss: Patient had an EGD in October 2018 at [facility] which revealed gastric ulcers 2. End-stage renal disease 3. Elevated troponin likely secondary to severe stress, type II 4. Hypertension currently well controlled PLAN: 1. Continue supportive care. Transfuse as needed to keep hemoglobin above 7. 2. Await echocardiogram. If echo is within normal limits no further cardiac intervention necessary. If she has significant LV dysfunction could consider ischemic evaluation in the form of stress test on an outpatient basis 3. When she's able to take oral medicines reinstate her antihypertensives when blood pressure and anemia more stable. We will follow along peripherally. Pls call with questions GASTON JACKSON MD Feb 15, 2019 09:55
--- NOTE | 2019-02-15 11:49 | PDOC2 ---
CONSULT Date of Consult Date of Consult DATE: 02/15/19 TIME: 11:47 Reason for Consult Reason for Consult: Hematemesis/chronic illness anemia Past Medical History Cardiovascular: HTN, Hyperlipidemia Pulmonary: No pertinent hx GI: Constipation, GERD, GI bleed Heme/Onc: Anemia NOS Hepatobiliary: No pertinent hx, Hep A/B/C Psych: Addictions Rheumatologic: Rheumatoid arthritis Infectious disease: No pertinent hx Renal/: Chronic renal failure, Hematuria Endocrine: Diabetes, Hyperparathyroidism Past Surgical History Past Surgical History: Cholecystectomy, Tonsillectomy, Hysterectomy, Other Family History Family History: High Cholestrol, Hypertension, Family History Unknown Social History ALCOHOL: other Drugs: None Current Problem List Problem List Problems Medical Problems: (1) Abdominal pain Status: Acute (2) Anemia Status: Acute (3) Elevated troponin Status: Acute Current Medications Current Medications Current Medications Fentanyl Citrate (Fentanyl 2ml Vial) 50 mcg PRN Q15MIN PRN IV PAIN GREATER THAN 3/10 Last administered on 02/14/19at 16:22; Start 02/14/19 at 14:30; Stop at 14:29 Pantoprazole Sodium (PROTONIX VIAL for IV PUSH) 40 mg 1X ONCE IVP Last administered on 02/14/19at 14:56; Start 02/14/19 at 14:30; Stop 02/14/19 at 14:36 ; Status DC Ondansetron HCl (Zofran) 4 mg 1X ONCE IV Last administered on 02/14/19at 14:56 ; Start 02/14/19 at 14:30; Stop 02/14/19 at 14:36; Status DC Potassium Chloride (Klor-Con) 40 meq 1X ONCE PO Last administered on at 15:41; Start 02/14/19 at 15:30; Stop 02/14/19 at 15:31; Status DC Pantoprazole Sodium 80 mg/ Sodium Chloride 100 ml @ 10 mls/hr Q10H IV Last administered on 02/15/19at 08:54; Start 02/14/19 at 15:30 Ondansetron HCl (Zofran) 4 mg PRN Q8HRS PRN IV NAUSEA/VOMITING; Start 02/14/19 at 15:30; Stop 02/15/19 at 15:29 Fentanyl Citrate (Fentanyl 2ml Vial) 50 mcg PRN Q4HRS PRN IV PAIN Last administered on 02/15/19at 11:37; Start 02/14/19 at 15:30 Active Scripts Active Protonix (Pantoprazole Sodium) 20 Mg Tablet.dr 40 Tab PO DAILY Tramadol Hcl 50 Mg Tablet 50 Mg PO PRN Q6HRS PRN Vancomycin Hcl 500 Mg Vial 125 Mg PO [id number] Days Culturelle (Lactobacillus Rhamnosus Gg) 1 Each Cap.sprink 1 Cap PO BID 14 Days Reported Nephro-Edward Tablet (Folic Acid/Vitamin B Comp W-C) 0.8 Mg Tablet 1 Tab PO DAILY Calcium Acetate 667 Mg Tablet 667 Mg PO TIDWMEALS Carvedilol 25 Mg Tablet 25 Mg PO BID Folic Acid 1 Mg Tablet 1 Mg PO DAILY Miralax (Polyethylene Glycol 3350) 17 Gm Powd.pack 1 Packet PO PRN DAILY PRN Amlodipine Besylate 10 Mg Tablet 10 Mg PO DAILY Allergies Allergies: Coded Allergies: I S O L A T I O N *CONTACT* (Verified Allergy, Unknown, 11/04/18) chronic C.diff acetaminophen (Verified Adverse Reaction, Intermediate, Nausea and Vomiting, 11/05/18) Vitals VITALS Vital Signs Date Time Temp Pulse Resp B/P (MAP) Pulse Ox O2 Delivery O2 Flow Rate FiO2 02/15/19 11:37 18 99 Room Air 02/15/19 11:00 99 136/62 (86) 02/15/19 08:00 98.7 98.7 02/14/19 21:00 2.0 Labs Labs Laboratory Tests Test 02/14/19 14:50 02/15/19 03:15 White Blood Count 7.3 x10^3/uL (4.0-11.0) 5.9 x10^3/uL (4.0-11.0) Red Blood Count 1.50 x10^6/uL (3.50-5.40) 2.06 x10^6/uL (3.50-5.40) Hemoglobin 5.2 g/dL (12.0-15.5) 6.4 g/dL (12.0-15.5) Hematocrit 15.5 % (36.0-47.0) 18.9 % (36.0-47.0) Mean Corpuscular Volume 104 fL (79-100) 92 fL (79-100) Mean Corpuscular Hemoglobin 35 pg (25-35) 31 pg (25-35) Mean Corpuscular Hemoglobin Concent 34 g/dL (31-37) 34 g/dL (31-37) Red Cell Distribution Width 16.7 % (11.5-14.5) 24.4 % (11.5-14.5) Platelet Count 198 x10^3/uL (140-400) 157 x10^3/uL (140-400) Neutrophils (%) (Auto) 73 % (31-73) 67 % (31-73) Lymphocytes (%) (Auto) 14 % (24-48) 20 % (24-48) Monocytes (%) (Auto) 12 % (0-9) 11 % (0-9) Eosinophils (%) (Auto) 1 % (0-3) 1 % (0-3) Basophils (%) (Auto) 1 % (0-3) 1 % (0-3) Neutrophils # (Auto) 5.3 x10^3uL (1.8-7.7) 3.9 x10^3uL (1.8-7.7) Lymphocytes # (Auto) 1.0 x10^3/uL (1.0-4.8) 1.2 x10^3/uL (1.0-4.8) Monocytes # (Auto) 0.8 x10^3/uL (0.0-1.1) 0.6 x10^3/uL (0.0-1.1) Eosinophils # (Auto) 0.1 x10^3/uL (0.0-0.7) 0.1 x10^3/uL (0.0-0.7) Basophils # (Auto) 0.1 x10^3/uL (0.0-0.2) 0.1 x10^3/uL (0.0-0.2) Prothrombin Time 15.1 SEC (11.7-14.0) Prothromb Time International Ratio 1.2 (0.8-1.1) Activated Partial Thromboplast Time 26 SEC (24-38) Sodium Level 134 mmol/L (136-145) 134 mmol/L (136-145) Potassium Level 3.2 mmol/L (3.5-5.1) 4.1 mmol/L (3.5-5.1) Chloride Level 93 mmol/L (98-107) 96 mmol/L (98-107) Carbon Dioxide Level 33 mmol/L (21-32) 33 mmol/L (21-32) Anion Gap 8 (6-14) 5 (6-14) Blood Urea Nitrogen 28 mg/dL (7-20) 37 mg/dL (7-20) Creatinine 3.3 mg/dL (0.6-1.0) 4.2 mg/dL (0.6-1.0) Estimated GFR (Cockcroft-Gault) 17.0 12.9 BUN/Creatinine Ratio 8 (6-20) 9 (6-20) Glucose Level 113 mg/dL (70-99) 88 mg/dL (70-99) Calcium Level 8.6 mg/dL (8.5-10.1) 8.6 mg/dL (8.5-10.1) Magnesium Level 1.6 mg/dL (1.8-2.4) Total Bilirubin 0.5 mg/dL (0.2-1.0) 0.6 mg/dL (0.2-1.0) Aspartate Amino Transf (AST/SGOT) 45 U/L (15-37) 40 U/L (15-37) Alanine Aminotransferase (ALT/SGPT) 15 U/L (14-59) 11 U/L (14-59) Alkaline Phosphatase 153 U/L (46-116) 122 U/L (46-116) Troponin I Quantitative 0.463 ng/mL (0.000-0.055) GS-Bmq-Y-Type Natriuretic Peptide 63489 pg/mL (0-124) Total Protein 7.6 g/dL (6.4-8.2) 6.6 g/dL (6.4-8.2) Albumin 2.5 g/dL (3.4-5.0) 2.1 g/dL (3.4-5.0) Albumin/Globulin Ratio 0.5 (1.0-1.7) 0.5 (1.0-1.7) Lipase 119 U/L (73-393) Laboratory Tests Test 02/14/19 14:50 02/15/19 03:15 White Blood Count 7.3 x10^3/uL (4.0-11.0) 5.9 x10^3/uL (4.0-11.0) Red Blood Count 1.50 x10^6/uL (3.50-5.40) 2.06 x10^6/uL (3.50-5.40) Hemoglobin 5.2 g/dL (12.0-15.5) 6.4 g/dL (12.0-15.5) Hematocrit 15.5 % (36.0-47.0) 18.9 % (36.0-47.0) Mean Corpuscular Volume 104 fL (79-100) 92 fL (79-100) Mean Corpuscular Hemoglobin 35 pg (25-35) 31 pg (25-35) Mean Corpuscular Hemoglobin Concent 34 g/dL (31-37) 34 g/dL (31-37) Red Cell Distribution Width 16.7 % (11.5-14.5) 24.4 % (11.5-14.5) Platelet Count 198 x10^3/uL (140-400) 157 x10^3/uL (140-400) Neutrophils (%) (Auto) 73 % (31-73) 67 % (31-73) Lymphocytes (%) (Auto) 14 % (24-48) 20 % (24-48) Monocytes (%) (Auto) 12 % (0-9) 11 % (0-9) Eosinophils (%) (Auto) 1 % (0-3) 1 % (0-3) Basophils (%) (Auto) 1 % (0-3) 1 % (0-3) Neutrophils # (Auto) 5.3 x10^3uL (1.8-7.7) 3.9 x10^3uL (1.8-7.7) Lymphocytes # (Auto) 1.0 x10^3/uL (1.0-4.8) 1.2 x10^3/uL (1.0-4.8) Monocytes # (Auto) 0.8 x10^3/uL (0.0-1.1) 0.6 x10^3/uL (0.0-1.1) Eosinophils # (Auto) 0.1 x10^3/uL (0.0-0.7) 0.1 x10^3/uL (0.0-0.7) Basophils # (Auto) 0.1 x10^3/uL (0.0-0.2) 0.1 x10^3/uL (0.0-0.2) Prothrombin Time 15.1 SEC (11.7-14.0) Prothromb Time International Ratio 1.2 (0.8-1.1) Activated Partial Thromboplast Time 26 SEC (24-38) Sodium Level 134 mmol/L (136-145) 134 mmol/L (136-145) Potassium Level 3.2 mmol/L (3.5-5.1) 4.1 mmol/L (3.5-5.1) Chloride Level 93 mmol/L (98-107) 96 mmol/L (98-107) Carbon Dioxide Level 33 mmol/L (21-32) 33 mmol/L (21-32) Anion Gap 8 (6-14) 5 (6-14) Blood Urea Nitrogen 28 mg/dL (7-20) 37 mg/dL (7-20) Creatinine 3.3 mg/dL (0.6-1.0) 4.2 mg/dL (0.6-1.0) Estimated GFR (Cockcroft-Gault) 17.0 12.9 BUN/Creatinine Ratio 8 (6-20) 9 (6-20) Glucose Level 113 mg/dL (70-99) 88 mg/dL (70-99) Calcium Level 8.6 mg/dL (8.5-10.1) 8.6 mg/dL (8.5-10.1) Magnesium Level 1.6 mg/dL (1.8-2.4) Total Bilirubin 0.5 mg/dL (0.2-1.0) 0.6 mg/dL (0.2-1.0) Aspartate Amino Transf (AST/SGOT) 45 U/L (15-37) 40 U/L (15-37) Alanine Aminotransferase (ALT/SGPT) 15 U/L (14-59) 11 U/L (14-59) Alkaline Phosphatase 153 U/L (46-116) 122 U/L (46-116) Troponin I Quantitative 0.463 ng/mL (0.000-0.055) VY-Ejj-G-Type Natriuretic Peptide 69587 pg/mL (0-124) Total Protein 7.6 g/dL (6.4-8.2) 6.6 g/dL (6.4-8.2) Albumin 2.5 g/dL (3.4-5.0) 2.1 g/dL (3.4-5.0) Albumin/Globulin Ratio 0.5 (1.0-1.7) 0.5 (1.0-1.7) Lipase 119 U/L (73-393) Assessment/Plan Assessment/Plan Hematemesis- with history ESRD and gastric uclers diagnosed in October at [facility]. Most likely UGI bleed. Recurrent ulcer off PPI therapy, varices, malignancy, and /or MW tear in differential. plan PPI therapy transfusions to maintian Hg >7 with increased troponin EGD Saturday per patient request Full note dictated SPENCER REYES MD Feb 15, 2019 11:49
--- NOTE | 2019-02-15 12:26 | PDOC ---
PROGRESS NOTES Chief Complaint Chief Complaint A/P: Acute blood loss anemia - possibly multiple etiologies with h/o ETOH gastritis and cirrhosis, will consult GI. Cont PPI gtt. S/p 2u PRBC per ED, will give further ESRD on HD - will consult nephrology for dialysis inpatient H/o GERD on Prilosec QD. Denies dysphagia. Cirrhosis - h/o heavy alcohol use and Hep C (genotype 1a - possibly failed treatment in the past). Consulted GI H/o C Diff - will repeat toxin gene today H/o Rupal Hauser tear - S/p EGD (Dr. Faulkner) 04/2016 (for melena/anemia): Grade 1 esophagitis, alcoholic gastritis. For repeat EGD tomorrow likely Chronic anemia - Hgb usually in 8-9 range. HTN - will monitor HLD - stable, statin RA - will cont pain control DM - sliding scale, home meds Hyperparathyroidism - will defer to nephro for calcium, phos, vitamin d regulation FEN - Renal ADA, npo after midnight PPX - SCDs, ppi GTT FULL CODE Inpatient for acute blood loss for at least 2 midnights. History of Present Illness History of Present Illness Ms Fernandez is a 63yo F with PMHx HTN, HLD, ESRD on HD, GERD, C Diff, cirrhosis , RA, DM, hyperparathyroidism who p/w dark vomit and hematochezia. Found with hemoccult positive stool and Hb of 5.2 in ED. Says last dialyzed today where this occurred. Denies change in medications. No acute findings on CT. On PPI drip per ER. She is asking for a diet and pain medication but cannot localize any pain in her body. Hb only up to 6 with transfusion x2. D/w nephrology, ok for 2 additional units with dialysis and NPO after midnight for EGD tomorrow. Vitals Vitals Vital Signs Date Time Temp Pulse Resp B/P (MAP) Pulse Ox O2 Delivery O2 Flow Rate FiO2 02/15/19 11:37 18 99 Room Air 02/15/19 11:00 99 136/62 (86) 02/15/19 08:00 98.7 98.7 02/14/19 21:00 2.0 Physical Exam General: Alert, Oriented X3, Cooperative, No acute distress Lungs: Clear Abdomen: Normal bowel sounds, Soft, No tenderness, No hepatosplenomegaly, No masses Extremities: No clubbing, No cyanosis, No edema, Normal pulses, No tenderness/ swelling Skin: No rashes, No breakdown, No significant lesion Labs LABS Laboratory Tests Test 02/14/19 14:50 02/15/19 03:15 White Blood Count 7.3 x10^3/uL (4.0-11.0) 5.9 x10^3/uL (4.0-11.0) Red Blood Count 1.50 x10^6/uL (3.50-5.40) 2.06 x10^6/uL (3.50-5.40) Hemoglobin 5.2 g/dL (12.0-15.5) 6.4 g/dL (12.0-15.5) Hematocrit 15.5 % (36.0-47.0) 18.9 % (36.0-47.0) Mean Corpuscular Volume 104 fL (79-100) 92 fL (79-100) Mean Corpuscular Hemoglobin 35 pg (25-35) 31 pg (25-35) Mean Corpuscular Hemoglobin Concent 34 g/dL (31-37) 34 g/dL (31-37) Red Cell Distribution Width 16.7 % (11.5-14.5) 24.4 % (11.5-14.5) Platelet Count 198 x10^3/uL (140-400) 157 x10^3/uL (140-400) Neutrophils (%) (Auto) 73 % (31-73) 67 % (31-73) Lymphocytes (%) (Auto) 14 % (24-48) 20 % (24-48) Monocytes (%) (Auto) 12 % (0-9) 11 % (0-9) Eosinophils (%) (Auto) 1 % (0-3) 1 % (0-3) Basophils (%) (Auto) 1 % (0-3) 1 % (0-3) Neutrophils # (Auto) 5.3 x10^3uL (1.8-7.7) 3.9 x10^3uL (1.8-7.7) Lymphocytes # (Auto) 1.0 x10^3/uL (1.0-4.8) 1.2 x10^3/uL (1.0-4.8) Monocytes # (Auto) 0.8 x10^3/uL (0.0-1.1) 0.6 x10^3/uL (0.0-1.1) Eosinophils # (Auto) 0.1 x10^3/uL (0.0-0.7) 0.1 x10^3/uL (0.0-0.7) Basophils # (Auto) 0.1 x10^3/uL (0.0-0.2) 0.1 x10^3/uL (0.0-0.2) Prothrombin Time 15.1 SEC (11.7-14.0) Prothromb Time International Ratio 1.2 (0.8-1.1) Activated Partial Thromboplast Time 26 SEC (24-38) Sodium Level 134 mmol/L (136-145) 134 mmol/L (136-145) Potassium Level 3.2 mmol/L (3.5-5.1) 4.1 mmol/L (3.5-5.1) Chloride Level 93 mmol/L (98-107) 96 mmol/L (98-107) Carbon Dioxide Level 33 mmol/L (21-32) 33 mmol/L (21-32) Anion Gap 8 (6-14) 5 (6-14) Blood Urea Nitrogen 28 mg/dL (7-20) 37 mg/dL (7-20) Creatinine 3.3 mg/dL (0.6-1.0) 4.2 mg/dL (0.6-1.0) Estimated GFR (Cockcroft-Gault) 17.0 12.9 BUN/Creatinine Ratio 8 (6-20) 9 (6-20) Glucose Level 113 mg/dL (70-99) 88 mg/dL (70-99) Calcium Level 8.6 mg/dL (8.5-10.1) 8.6 mg/dL (8.5-10.1) Magnesium Level 1.6 mg/dL (1.8-2.4) Total Bilirubin 0.5 mg/dL (0.2-1.0) 0.6 mg/dL (0.2-1.0) Aspartate Amino Transf (AST/SGOT) 45 U/L (15-37) 40 U/L (15-37) Alanine Aminotransferase (ALT/SGPT) 15 U/L (14-59) 11 U/L (14-59) Alkaline Phosphatase 153 U/L (46-116) 122 U/L (46-116) Troponin I Quantitative 0.463 ng/mL (0.000-0.055) LU-Qyr-W-Type Natriuretic Peptide 65239 pg/mL (0-124) Total Protein 7.6 g/dL (6.4-8.2) 6.6 g/dL (6.4-8.2) Albumin 2.5 g/dL (3.4-5.0) 2.1 g/dL (3.4-5.0) Albumin/Globulin Ratio 0.5 (1.0-1.7) 0.5 (1.0-1.7) Lipase 119 U/L (73-393) Assessment and Plan Assessmemt and Plan Problems Medical Problems: (1) Abdominal pain Status: Acute (2) Anemia Status: Acute (3) Elevated troponin Status: Acute Comment Review of Relevant I have reviewed the following items tamika (where applicable) has been applied. Labs Laboratory Tests Test 02/14/19 14:50 02/15/19 03:15 White Blood Count 7.3 x10^3/uL (4.0-11.0) 5.9 x10^3/uL (4.0-11.0) Red Blood Count 1.50 x10^6/uL (3.50-5.40) 2.06 x10^6/uL (3.50-5.40) Hemoglobin 5.2 g/dL (12.0-15.5) 6.4 g/dL (12.0-15.5) Hematocrit 15.5 % (36.0-47.0) 18.9 % (36.0-47.0) Mean Corpuscular Volume 104 fL (79-100) 92 fL (79-100) Mean Corpuscular Hemoglobin 35 pg (25-35) 31 pg (25-35) Mean Corpuscular Hemoglobin Concent 34 g/dL (31-37) 34 g/dL (31-37) Red Cell Distribution Width 16.7 % (11.5-14.5) 24.4 % (11.5-14.5) Platelet Count 198 x10^3/uL (140-400) 157 x10^3/uL (140-400) Neutrophils (%) (Auto) 73 % (31-73) 67 % (31-73) Lymphocytes (%) (Auto) 14 % (24-48) 20 % (24-48) Monocytes (%) (Auto) 12 % (0-9) 11 % (0-9) Eosinophils (%) (Auto) 1 % (0-3) 1 % (0-3) Basophils (%) (Auto) 1 % (0-3) 1 % (0-3) Neutrophils # (Auto) 5.3 x10^3uL (1.8-7.7) 3.9 x10^3uL (1.8-7.7) Lymphocytes # (Auto) 1.0 x10^3/uL (1.0-4.8) 1.2 x10^3/uL (1.0-4.8) Monocytes # (Auto) 0.8 x10^3/uL (0.0-1.1) 0.6 x10^3/uL (0.0-1.1) Eosinophils # (Auto) 0.1 x10^3/uL (0.0-0.7) 0.1 x10^3/uL (0.0-0.7) Basophils # (Auto) 0.1 x10^3/uL (0.0-0.2) 0.1 x10^3/uL (0.0-0.2) Prothrombin Time 15.1 SEC (11.7-14.0) Prothromb Time International Ratio 1.2 (0.8-1.1) Activated Partial Thromboplast Time 26 SEC (24-38) Sodium Level 134 mmol/L (136-145) 134 mmol/L (136-145) Potassium Level 3.2 mmol/L (3.5-5.1) 4.1 mmol/L (3.5-5.1) Chloride Level 93 mmol/L (98-107) 96 mmol/L (98-107) Carbon Dioxide Level 33 mmol/L (21-32) 33 mmol/L (21-32) Anion Gap 8 (6-14) 5 (6-14) Blood Urea Nitrogen 28 mg/dL (7-20) 37 mg/dL (7-20) Creatinine 3.3 mg/dL (0.6-1.0) 4.2 mg/dL (0.6-1.0) Estimated GFR (Cockcroft-Gault) 17.0 12.9 BUN/Creatinine Ratio 8 (6-20) 9 (6-20) Glucose Level 113 mg/dL (70-99) 88 mg/dL (70-99) Calcium Level 8.6 mg/dL (8.5-10.1) 8.6 mg/dL (8.5-10.1) Magnesium Level 1.6 mg/dL (1.8-2.4) Total Bilirubin 0.5 mg/dL (0.2-1.0) 0.6 mg/dL (0.2-1.0) Aspartate Amino Transf (AST/SGOT) 45 U/L (15-37) 40 U/L (15-37) Alanine Aminotransferase (ALT/SGPT) 15 U/L (14-59) 11 U/L (14-59) Alkaline Phosphatase 153 U/L (46-116) 122 U/L (46-116) Troponin I Quantitative 0.463 ng/mL (0.000-0.055) EX-Ttt-M-Type Natriuretic Peptide 13070 pg/mL (0-124) Total Protein 7.6 g/dL (6.4-8.2) 6.6 g/dL (6.4-8.2) Albumin 2.5 g/dL (3.4-5.0) 2.1 g/dL (3.4-5.0) Albumin/Globulin Ratio 0.5 (1.0-1.7) 0.5 (1.0-1.7) Lipase 119 U/L (73-393) Laboratory Tests Test 02/14/19 14:50 02/15/19 03:15 White Blood Count 7.3 x10^3/uL (4.0-11.0) 5.9 x10^3/uL (4.0-11.0) Red Blood Count 1.50 x10^6/uL (3.50-5.40) 2.06 x10^6/uL (3.50-5.40) Hemoglobin 5.2 g/dL (12.0-15.5) 6.4 g/dL (12.0-15.5) Hematocrit 15.5 % (36.0-47.0) 18.9 % (36.0-47.0) Mean Corpuscular Volume 104 fL (79-100) 92 fL (79-100) Mean Corpuscular Hemoglobin 35 pg (25-35) 31 pg (25-35) Mean Corpuscular Hemoglobin Concent 34 g/dL (31-37) 34 g/dL (31-37) Red Cell Distribution Width 16.7 % (11.5-14.5) 24.4 % (11.5-14.5) Platelet Count 198 x10^3/uL (140-400) 157 x10^3/uL (140-400) Neutrophils (%) (Auto) 73 % (31-73) 67 % (31-73) Lymphocytes (%) (Auto) 14 % (24-48) 20 % (24-48) Monocytes (%) (Auto) 12 % (0-9) 11 % (0-9) Eosinophils (%) (Auto) 1 % (0-3) 1 % (0-3) Basophils (%) (Auto) 1 % (0-3) 1 % (0-3) Neutrophils # (Auto) 5.3 x10^3uL (1.8-7.7) 3.9 x10^3uL (1.8-7.7) Lymphocytes # (Auto) 1.0 x10^3/uL (1.0-4.8) 1.2 x10^3/uL (1.0-4.8) Monocytes # (Auto) 0.8 x10^3/uL (0.0-1.1) 0.6 x10^3/uL (0.0-1.1) Eosinophils # (Auto) 0.1 x10^3/uL (0.0-0.7) 0.1 x10^3/uL (0.0-0.7) Basophils # (Auto) 0.1 x10^3/uL (0.0-0.2) 0.1 x10^3/uL (0.0-0.2) Prothrombin Time 15.1 SEC (11.7-14.0) Prothromb Time International Ratio 1.2 (0.8-1.1) Activated Partial Thromboplast Time 26 SEC (24-38) Sodium Level 134 mmol/L (136-145) 134 mmol/L (136-145) Potassium Level 3.2 mmol/L (3.5-5.1) 4.1 mmol/L (3.5-5.1) Chloride Level 93 mmol/L (98-107) 96 mmol/L (98-107) Carbon Dioxide Level 33 mmol/L (21-32) 33 mmol/L (21-32) Anion Gap 8 (6-14) 5 (6-14) Blood Urea Nitrogen 28 mg/dL (7-20) 37 mg/dL (7-20) Creatinine 3.3 mg/dL (0.6-1.0) 4.2 mg/dL (0.6-1.0) Estimated GFR (Cockcroft-Gault) 17.0 12.9 BUN/Creatinine Ratio 8 (6-20) 9 (6-20) Glucose Level 113 mg/dL (70-99) 88 mg/dL (70-99) Calcium Level 8.6 mg/dL (8.5-10.1) 8.6 mg/dL (8.5-10.1) Magnesium Level 1.6 mg/dL (1.8-2.4) Total Bilirubin 0.5 mg/dL (0.2-1.0) 0.6 mg/dL (0.2-1.0) Aspartate Amino Transf (AST/SGOT) 45 U/L (15-37) 40 U/L (15-37) Alanine Aminotransferase (ALT/SGPT) 15 U/L (14-59) 11 U/L (14-59) Alkaline Phosphatase 153 U/L (46-116) 122 U/L (46-116) Troponin I Quantitative 0.463 ng/mL (0.000-0.055) CS-Tcj-H-Type Natriuretic Peptide 83821 pg/mL (0-124) Total Protein 7.6 g/dL (6.4-8.2) 6.6 g/dL (6.4-8.2) Albumin 2.5 g/dL (3.4-5.0) 2.1 g/dL (3.4-5.0) Albumin/Globulin Ratio 0.5 (1.0-1.7) 0.5 (1.0-1.7) Lipase 119 U/L (73-393) Medications Current Medications Fentanyl Citrate (Fentanyl 2ml Vial) 50 mcg PRN Q15MIN PRN IV PAIN GREATER THAN 3/10 Last administered on 02/14/19at 16:22; Start 02/14/19 at 14:30; Stop at 14:29 Pantoprazole Sodium (PROTONIX VIAL for IV PUSH) 40 mg 1X ONCE IVP Last administered on 02/14/19at 14:56; Start 02/14/19 at 14:30; Stop 02/14/19 at 14:36 ; Status DC Ondansetron HCl (Zofran) 4 mg 1X ONCE IV Last administered on 02/14/19at 14:56 ; Start 02/14/19 at 14:30; Stop 02/14/19 at 14:36; Status DC Potassium Chloride (Klor-Con) 40 meq 1X ONCE PO Last administered on at 15:41; Start 02/14/19 at 15:30; Stop 02/14/19 at 15:31; Status DC Pantoprazole Sodium 80 mg/ Sodium Chloride 100 ml @ 10 mls/hr Q10H IV Last administered on 02/15/19at 08:54; Start 02/14/19 at 15:30 Ondansetron HCl (Zofran) 4 mg PRN Q8HRS PRN IV NAUSEA/VOMITING; Start 02/14/19 at 15:30; Stop 02/15/19 at 15:29 Fentanyl Citrate (Fentanyl 2ml Vial) 50 mcg PRN Q4HRS PRN IV PAIN Last administered on 02/15/19at 11:37; Start 02/14/19 at 15:30 Active Scripts Active Protonix (Pantoprazole Sodium) 20 Mg Tablet.dr 40 Tab PO DAILY Tramadol Hcl 50 Mg Tablet 50 Mg PO PRN Q6HRS PRN Vancomycin Hcl 500 Mg Vial 125 Mg PO [id number] 13 Days Culturelle (Lactobacillus Rhamnosus Gg) 1 Each Cap.sprink 1 Cap PO BID 14 Days Reported Nephro-Edward Tablet (Folic Acid/Vitamin B Comp W-C) 0.8 Mg Tablet 1 Tab PO DAILY Calcium Acetate 667 Mg Tablet 667 Mg PO TIDWMEALS Carvedilol 25 Mg Tablet 25 Mg PO BID Folic Acid 1 Mg Tablet 1 Mg PO DAILY Miralax (Polyethylene Glycol 3350) 17 Gm Powd.pack 1 Packet PO PRN DAILY PRN Amlodipine Besylate 10 Mg Tablet 10 Mg PO DAILY Vitals/I & O Vital Sign - Last 24 Hours 02/14/19 02/14/19 02/14/19 02/14/19 14:19 14:56 16:22 16:33 Temp 97.8 97.8 Pulse 93 93 Resp 18 18 16 18 B/P (MAP) 118/56 (76) 122/56 (78) Pulse Ox 99 100 O2 Delivery Room Air 02/14/19 02/14/19 02/14/19 02/14/19 16:51 17:00 18:00 18:41 Temp 98.3 98.3 98.3 98.3 Pulse 96 100 99 Resp 20 B/P (MAP) 129/69 (89) 120/50 (73) 112/48 Pulse Ox 100 96 O2 Delivery Room Air Room Air 02/14/19 02/14/19 02/14/19 02/14/19 19:00 19:54 20:00 20:33 Temp 98.8 98.8 Pulse 100 99 Resp 15 B/P (MAP) 139/52 (81) 137/77 (97) Pulse Ox 97 96 100 100 O2 Delivery Room Air Room Air Nasal Cannula O2 Flow Rate 2.0 2.0 02/14/19 02/14/19 02/14/19 02/15/19 21:00 22:00 23:00 00:00 Temp 98.5 98.5 Pulse 100 100 100 101 Resp 17 18 B/P (MAP) 112/49 (70) 128/56 (80) 127/50 (75) 125/58 (80) Pulse Ox 100 99 98 96 O2 Delivery Nasal Cannula Room Air Room Air Room Air O2 Flow Rate 2.0 02/15/19 02/15/19 02/15/19 02/15/19 01:00 01:45 02:00 02:30 Pulse 101 90 Resp 19 B/P (MAP) 135/60 (85) 115/40 (65) Pulse Ox 97 97 90 O2 Delivery Room Air Room Air Room Air Room Air 02/15/19 02/15/19 02/15/19 02/15/19 03:00 04:00 05:00 06:00 Temp 98.5 98.5 Pulse 96 96 96 96 Resp 17 22 20 16 B/P (MAP) 123/48 (73) 120/53 (75) 131/59 (83) 165/58 (93) Pulse Ox 96 96 99 98 O2 Delivery Room Air Room Air Room Air Room Air 02/15/19 02/15/19 02/15/19 02/15/19 07:00 08:00 09:00 10:00 Temp 98.7 98.7 Pulse 95 94 93 94 Resp 16 16 16 16 B/P (MAP) 153/45 (81) 145/59 (87) 144/50 (81) 119/65 (83) Pulse Ox 94 95 94 95 O2 Delivery Room Air Room Air Room Air Room Air 02/15/19 02/15/19 11:00 11:37 Pulse 99 Resp 19 18 B/P (MAP) 136/62 (86) Pulse Ox 100 99 O2 Delivery Room Air Room Air Intake and Output 02/14/19 02/14/19 02/15/19 15:00 23:00 07:00 Intake Total 310 ml 847.5 ml Balance 310 ml 847.5 ml MELY OLVERA MD Feb 15, 2019 12:26
--- NOTE | 2019-02-15 12:30 | EKG ---
[facility] [address] [place] [address] Test Date: 2019-02-14 Test Time: 15:06:19 Pat Name: CESAR AGEE Department: Room: 103 1 Gender: Female [employer]: : 1955 Requested By: ANNA MORENO Order Number: [id number] Reading MD: Kalin Rai MD Measurements Intervals [place] Rate: 94 P: 41 NM: 130 QRS: 41 QRSD: 74 T: 8 QT: 408 QTc: 516 Interpretive Statements SINUS RHYTHM NON-SPECIFIC ST/T CHANGES Electronically Signed On 02-20-2019 14:44:39 CDT by Kalin Rai MD
[2019-02-16] VITALS (18 sets, daily range): BP systolic 127–183; BP diastolic 54–81
--- NOTE | 2019-02-16 02:01 | CONS ---
DATE OF CONSULTATION: REASON FOR CONSULTATION: Renal failure with hematemesis. REQUESTING PHYSICIAN: Hospitalist. HISTORY OF PRESENT ILLNESS: This is a 63-year-old female with a history of end-stage renal disease secondary to diabetic nephropathy, hypertension and nephrosclerosis. She follows with Dr. Redd Mercado of our practice and undergoes dialysis on Saturday, and Saturday schedule. She now is admitted with hemoglobin of 5.2 in the setting of hematochezia and hematemesis. Specifics are difficult to ascertain as to how often this has happened. She has had one episode of prolonged bleeding at dialysis. She is undergoing transfusion of packed red blood cells. She did complete all but 30 minutes of her dialysis on the day prior to this consultation. The patient currently has no chest pain or shortness of breath. PAST MEDICAL HISTORY: 1. Diabetes mellitus. 2. Hypertension. 3. End-stage renal disease, hemodialysis dependent on Saturday, and Saturday. 4. Hyperlipidemia. 5. GE reflux disease. 6. Clostridium difficile colitis. 7. Cirrhosis. 8. Rheumatoid arthritis. 9. Secondary hyperparathyroidism, renal disease. 10. Chronic kidney disease. ALLERGIES: ACETAMINOPHEN, MEDICATIONS: Reviewed per medication list. FAMILY HISTORY: Noncontributory for renal disease. SOCIAL HISTORY: The patient resides with assistance from family. REVIEW OF SYSTEMS: No headache, sinus problem, nasal drainage, epistaxis, change in vision or hearing or difficulty swallowing. No fever, chills, cough, sputum production or hemoptysis. No chest pain, shortness of breath, PND, orthopnea, dyspnea on exertion. No abdominal pain. She has had hematemesis and hematochezia. No seizure or malignancies. PHYSICAL EXAMINATION: GENERAL APPEARANCE: The patient is awake and conversant. HEENT: Clear. NECK: No increased JVD. No thyromegaly, mass or adenopathy. LUNGS: Clear. CARDIAC: Without S3 or rub. ABDOMEN: Obese, bowel sounds present and nontender. EXTREMITIES: Trace lower extremity edema bilaterally. NEUROLOGIC: Nonfocal, nonlocalized. PSYCHIATRIC: Reduced attention to detail and appropriate affect. LABORATORY DATA: Hemoglobin currently 6.4, hematocrit 18.9. Potassium 4.1, CO2 of 33, creatinine 4.2 and GFR 12.9. IMPRESSION: 1. End-stage renal disease secondary to diabetic nephropathy, hypertension and nephrosclerosis -- dialysis dependent, Saturday, and Saturday. 2. Hematochezia and hematemesis with anemia. RECOMMENDATIONS: 1. Ongoing dialysis on Saturday, and Saturday. May need dialysis again tomorrow pending response to transfusion of packed red blood cells. 2. Transfuse packed red blood cells. 3. GI has been consulted and planning on endoscopy. HAYDER LEZAMA MD DR: DEREK/danial JOB#: [id number] / [id number]
[2019-02-16] MEDS: PANTOPRAZOLE SODIUM IV DRIP 80 MG in IV NORMAL SALINE 100ML 100 ML IV SCH (05:41)
[2019-02-16 06:42] LABS: BASO % 1 % (0-3); EOS # 0.1 x10^3/uL (0.0-0.7); EOS % 2 % (0-3); HEMATOCRIT 26.8 % (36.0-47.0); HEMOGLOBIN 9.2 g/dL (12.0-15.5); LYMPH # 0.9 x10^3/uL (1.0-4.8); LYMPH % 21 % (24-48); MEAN CORPUSCULAR HEMOGLOBIN 31 pg (25-35); MEAN CORPUSCULAR HGB CONC 34 g/dL (31-37); MEAN CORPUSCULAR VOLUME 92 fL (79-100); MONO # 0.5 x10^3/uL (0.0-1.1); MONO % 11 % (0-9); NEUT # 2.6 x10^3uL (1.8-7.7); NEUT % 65 % (31-73); PLATELET COUNT 176 x10^3/uL (140-400); RED BLOOD COUNT 2.93 x10^6/uL (3.50-5.40); RED CELL DISTRIBUTION WIDTH 20.9 % (11.5-14.5)
[2019-02-16 06:54] LABS: ALBUMIN 2.4 g/dL (3.4-5.0); ALBUMIN/GLOBULIN RATIO 0.5 (1.0-1.7); CREATININE 5.8 mg/dL (0.6-1.0); GFR 8.9; POTASSIUM 4.2 mmol/L (3.5-5.1); TOTAL BILIRUBIN 0.7 mg/dL (0.2-1.0); TOTAL PROTEIN 7.1 g/dL (6.4-8.2)
--- NOTE | 2019-02-16 07:31 | CONS ---
DATE OF CONSULTATION: 02/15/2019 REASON FOR CONSULTATION: Hematemesis and chronic illness anemia. HISTORY OF PRESENT ILLNESS: A 63-year-old -[place] female with past medical history significant for hypertension, hyperlipidemia, end-stage renal disease, C. diff, RA, diabetes, hypothyroidism and recently diagnosed gastric ulcers at in October is admitted to [facility] after two episodes of hematemesis one on and one yesterday with approximately 50 mL-75 mL of blood. She had been on her medicines until she ran out, has not had interval upper endoscopy to confirm healing. Denies any dysphagia or odynophagia. Denies any change in her weight or appetite, otherwise without additional complaints and requests to eat. PAST MEDICAL HISTORY: Hypertension, hyperlipidemia, rheumatoid arthritis, diabetes, hyperparathyroidism, history of gastric ulcers and end-stage renal disease. PAST SURGICAL HISTORY: Status post cholecystectomy, tonsillectomy, hysterectomy. FAMILY HISTORY: Significant for hyperlipidemia and hypertension. SOCIAL HISTORY: She is not a drinker or smoker at this time. MEDICATIONS: Include pantoprazole 80 mg drip, fentanyl. REVIEW OF SYSTEMS: As per records. PHYSICAL EXAMINATION: GENERAL: Reveals a well-nourished, well-developed -[place] female who is alert, cooperative, in no acute distress. VITAL SIGNS: Pulse is 94, blood pressure is 130/82 and respiratory rate is 18. HEENT: Reveals normocephalic and atraumatic head. Pupils and extraocular muscles are not tested. Sclerae anicteric. NECK: Supple. LUNGS: Clear. CARDIOVASCULAR: Reveals S1, S2 without S3, S4 or appreciable murmur. ABDOMEN: Reveals soft abdomen, normal bowel sounds, without appreciable hepatosplenomegaly. Multiple surgical incisions. EXTREMITIES: Reveals no cyanosis, clubbing or edema. LABORATORY STUDIES: Sodium 134, potassium 4.1, chloride 98, bicarbonate 33, BUN 37, creatinine 4.2, glucose is 88, calcium is 8.8, total bilirubin 0.6, AST of 40, ALT of 11, alkaline phosphatase 122. Troponin was 0.463. Total protein 6.6 and albumin 2.1. Hemoglobin 6.2, hematocrit 18.9, white count is 5.9 and platelet count is 157,000. INR is 1.2. CT of the abdomen and pelvis reveals cirrhosis, fat containing umbilical hernia and no evidence of varices. IMPRESSION: Hematemesis with chronic illness anemia, history of gastric ulcers, upper GI source is likely varices, peptic ulcer disease, malignancy, Stanley's, Rupal-Hauser tear all in differential. We will recommend PPI therapy, transfusional support to maintain hemoglobin greater than 7. Per the patient's request, EGD tomorrow as opposed to today that she is presently stable. Risks and benefits have been discussed with the patient including risk of hemorrhage and perforation. She is willing to proceed as scheduled. SPENCER REYES MD DR: NATALY/danial JOB#: [id number] / [id number] MELY Sexton MD
[2019-02-16 10:05] LABS: PLT ESTIMATE ADEQUATE (ADEQUATE); POLYCHROMASIA PRESENT
--- NOTE | 2019-02-16 10:18 | PDOC ---
PROGRESS NOTES Chief Complaint Chief Complaint Acute blood loss anemia - possibly multiple etiologies with h/o ETOH gastritis and cirrhosis, s/p PPI and BT ESRD on HD - H/o GERD and pUD - KU, on Prilosec QD. Cirrhosis - h/o heavy alcohol use and Hep C (genotype 1a - H/o C Diff - no diarrhea H/o Rupal Hauser tear - S/p EGD (Dr. Faulkner) 04/2016 (for melena/anemia): Grade 1 esophagitis, alcoholic gastritis. Chronic anemia - Hgb usually in 8-9 range. HTN - HLD - stable, statin RA - DM - sliding scale, home meds Hyperparathyroidism - in ESRD History of Present Illness History of Present Illness No complaints She ambulates with a walker and came from home She is agreeable to rehabilitation if needed She has been to rehabilitation before Blood pressure on the high side with mild tachycardia. ESRD numbers, sodium 132. Hemoglobin 9.2 better Troponin 0.4 BNP 1300 with no chest pain Not having diarrhea-history C. difficile Plan: EGD later candidate to transfer out of ICU pending EGD results Vitals Vitals Vital Signs Date Time Temp Pulse Resp B/P (MAP) Pulse Ox O2 Delivery O2 Flow Rate FiO2 02/16/19 09:00 93 20 156/68 (97) 97 Room Air 02/16/19 08:00 98.1 98.1 02/16/19 06:00 2.0 Physical Exam General: Alert, Oriented X3, Cooperative, No acute distress Lungs: Clear Abdomen: Normal bowel sounds, Soft, No tenderness, No hepatosplenomegaly, No masses Extremities: No clubbing, No cyanosis, No edema, Normal pulses, No tenderness/ swelling Skin: No rashes, No breakdown, No significant lesion Labs LABS Laboratory Tests Test 02/15/19 21:10 02/16/19 06:15 Hemoglobin 8.6 g/dL (12.0-15.5) 9.2 g/dL (12.0-15.5) White Blood Count 4.0 x10^3/uL (4.0-11.0) Red Blood Count 2.93 x10^6/uL (3.50-5.40) Hematocrit 26.8 % (36.0-47.0) Mean Corpuscular Volume 92 fL (79-100) Mean Corpuscular Hemoglobin 31 pg (25-35) Mean Corpuscular Hemoglobin Concent 34 g/dL (31-37) Red Cell Distribution Width 20.9 % (11.5-14.5) Platelet Count 176 x10^3/uL (140-400) Neutrophils (%) (Auto) 65 % (31-73) Lymphocytes (%) (Auto) 21 % (24-48) Monocytes (%) (Auto) 11 % (0-9) Eosinophils (%) (Auto) 2 % (0-3) Basophils (%) (Auto) 1 % (0-3) Neutrophils # (Auto) 2.6 x10^3uL (1.8-7.7) Lymphocytes # (Auto) 0.9 x10^3/uL (1.0-4.8) Monocytes # (Auto) 0.5 x10^3/uL (0.0-1.1) Eosinophils # (Auto) 0.1 x10^3/uL (0.0-0.7) Basophils # (Auto) 0.0 x10^3/uL (0.0-0.2) Platelet Estimate Adequate (ADEQUATE) Polychromasia Present Basophilic Stippling Present Sodium Level 132 mmol/L (136-145) Potassium Level 4.2 mmol/L (3.5-5.1) Chloride Level 94 mmol/L (98-107) Carbon Dioxide Level 31 mmol/L (21-32) Anion Gap 7 (6-14) Blood Urea Nitrogen 45 mg/dL (7-20) Creatinine 5.8 mg/dL (0.6-1.0) Estimated GFR (Cockcroft-Gault) 8.9 BUN/Creatinine Ratio 8 (6-20) Glucose Level 93 mg/dL (70-99) Calcium Level 9.0 mg/dL (8.5-10.1) Total Bilirubin 0.7 mg/dL (0.2-1.0) Aspartate Amino Transf (AST/SGOT) 42 U/L (15-37) Alanine Aminotransferase (ALT/SGPT) 11 U/L (14-59) Alkaline Phosphatase 125 U/L (46-116) Total Protein 7.1 g/dL (6.4-8.2) Albumin 2.4 g/dL (3.4-5.0) Albumin/Globulin Ratio 0.5 (1.0-1.7) Review of Systems Review of Systems A 14 point ROS was completed with the following noted as positive: Other systems reviewed and negative. \CONSTITUTIONAL: No fever or chills EYES: No recent changes SKIN: No rash or itching CARDIOVASCULAR: No chest pain, syncope, palpitations, or edema RESPIRATORY: No SOB or cough GASTROINTESTINAL: No nausea, vomiting or abdominal pain NEUROLOGICAL: No headaches or weakness ENDOCRINE: No cold or heat intolerance GENITOURINARY: No urgency or frequency of urination MUSCULOSKELETAL: No back pain or joint pain LYMPHATICS: No enlarged lymph nodes PSYCHIATRIC: No anxiety or depression Assessment and Plan Assessmemt and Plan Problems Medical Problems: (1) Abdominal pain Status: Acute (2) Anemia Status: Acute (3) Elevated troponin Status: Acute Comment Review of Relevant I have reviewed the following items tamika (where applicable) has been applied. Labs Laboratory Tests Test 02/14/19 14:50 02/14/19 16:55 02/15/19 03:15 02/15/19 21:10 White Blood Count 7.3 x10^3/uL (4.0-11.0) 5.9 x10^3/uL (4.0-11.0) Red Blood Count 1.50 x10^6/uL (3.50-5.40) 2.06 x10^6/uL (3.50-5.40) Hemoglobin 5.2 g/dL (12.0-15.5) 6.4 g/dL (12.0-15.5) 8.6 g/dL (12.0-15.5) Hematocrit 15.5 % (36.0-47.0) 18.9 % (36.0-47.0) Mean Corpuscular Volume 104 fL (79-100) 92 fL (79-100) Mean Corpuscular Hemoglobin 35 pg (25-35) 31 pg (25-35) Mean Corpuscular Hemoglobin Concent 34 g/dL (31-37) 34 g/dL (31-37) Red Cell Distribution Width 16.7 % (11.5-14.5) 24.4 % (11.5-14.5) Platelet Count 198 x10^3/uL (140-400) 157 x10^3/uL (140-400) Neutrophils (%) (Auto) 73 % (31-73) 67 % (31-73) Lymphocytes (%) (Auto) 14 % (24-48) 20 % (24-48) Monocytes (%) (Auto) 12 % (0-9) 11 % (0-9) Eosinophils (%) (Auto) 1 % (0-3) 1 % (0-3) Basophils (%) (Auto) 1 % (0-3) 1 % (0-3) Neutrophils # (Auto) 5.3 x10^3uL (1.8-7.7) 3.9 x10^3uL (1.8-7.7) Lymphocytes # (Auto) 1.0 x10^3/uL (1.0-4.8) 1.2 x10^3/uL (1.0-4.8) Monocytes # (Auto) 0.8 x10^3/uL (0.0-1.1) 0.6 x10^3/uL (0.0-1.1) Eosinophils # (Auto) 0.1 x10^3/uL (0.0-0.7) 0.1 x10^3/uL (0.0-0.7) Basophils # (Auto) 0.1 x10^3/uL (0.0-0.2) 0.1 x10^3/uL (0.0-0.2) Prothrombin Time 15.1 SEC (11.7-14.0) Prothromb Time International Ratio 1.2 (0.8-1.1) Activated Partial Thromboplast Time 26 SEC (24-38) Sodium Level 134 mmol/L (136-145) 134 mmol/L (136-145) Potassium Level 3.2 mmol/L (3.5-5.1) 4.1 mmol/L (3.5-5.1) Chloride Level 93 mmol/L (98-107) 96 mmol/L (98-107) Carbon Dioxide Level 33 mmol/L (21-32) 33 mmol/L (21-32) Anion Gap 8 (6-14) 5 (6-14) Blood Urea Nitrogen 28 mg/dL (7-20) 37 mg/dL (7-20) Creatinine 3.3 mg/dL (0.6-1.0) 4.2 mg/dL (0.6-1.0) Estimated GFR (Cockcroft-Gault) 17.0 12.9 BUN/Creatinine Ratio 8 (6-20) 9 (6-20) Glucose Level 113 mg/dL (70-99) 88 mg/dL (70-99) Calcium Level 8.6 mg/dL (8.5-10.1) 8.6 mg/dL (8.5-10.1) Magnesium Level 1.6 mg/dL (1.8-2.4) Total Bilirubin 0.5 mg/dL (0.2-1.0) 0.6 mg/dL (0.2-1.0) Aspartate Amino Transf (AST/SGOT) 45 U/L (15-37) 40 U/L (15-37) Alanine Aminotransferase (ALT/SGPT) 15 U/L (14-59) 11 U/L (14-59) Alkaline Phosphatase 153 U/L (46-116) 122 U/L (46-116) Troponin I Quantitative 0.463 ng/mL (0.000-0.055) CH-Usb-V-Type Natriuretic Peptide 55073 pg/mL (0-124) Total Protein 7.6 g/dL (6.4-8.2) 6.6 g/dL (6.4-8.2) Albumin 2.5 g/dL (3.4-5.0) 2.1 g/dL (3.4-5.0) Albumin/Globulin Ratio 0.5 (1.0-1.7) 0.5 (1.0-1.7) Lipase 119 U/L (73-393) Nasal Screen MRSA (PCR) Negative (Negative) Test 02/16/19 06:15 White Blood Count 4.0 x10^3/uL (4.0-11.0) Red Blood Count 2.93 x10^6/uL (3.50-5.40) Hemoglobin 9.2 g/dL (12.0-15.5) Hematocrit 26.8 % (36.0-47.0) Mean Corpuscular Volume 92 fL (79-100) Mean Corpuscular Hemoglobin 31 pg (25-35) Mean Corpuscular Hemoglobin Concent 34 g/dL (31-37) Red Cell Distribution Width 20.9 % (11.5-14.5) Platelet Count 176 x10^3/uL (140-400) Neutrophils (%) (Auto) 65 % (31-73) Lymphocytes (%) (Auto) 21 % (24-48) Monocytes (%) (Auto) 11 % (0-9) Eosinophils (%) (Auto) 2 % (0-3) Basophils (%) (Auto) 1 % (0-3) Neutrophils # (Auto) 2.6 x10^3uL (1.8-7.7) Lymphocytes # (Auto) 0.9 x10^3/uL (1.0-4.8) Monocytes # (Auto) 0.5 x10^3/uL (0.0-1.1) Eosinophils # (Auto) 0.1 x10^3/uL (0.0-0.7) Basophils # (Auto) 0.0 x10^3/uL (0.0-0.2) Platelet Estimate Adequate (ADEQUATE) Polychromasia Present Basophilic Stippling Present Sodium Level 132 mmol/L (136-145) Potassium Level 4.2 mmol/L (3.5-5.1) Chloride Level 94 mmol/L (98-107) Carbon Dioxide Level 31 mmol/L (21-32) Anion Gap 7 (6-14) Blood Urea Nitrogen 45 mg/dL (7-20) Creatinine 5.8 mg/dL (0.6-1.0) Estimated GFR (Cockcroft-Gault) 8.9 BUN/Creatinine Ratio 8 (6-20) Glucose Level 93 mg/dL (70-99) Calcium Level 9.0 mg/dL (8.5-10.1) Total Bilirubin 0.7 mg/dL (0.2-1.0) Aspartate Amino Transf (AST/SGOT) 42 U/L (15-37) Alanine Aminotransferase (ALT/SGPT) 11 U/L (14-59) Alkaline Phosphatase 125 U/L (46-116) Total Protein 7.1 g/dL (6.4-8.2) Albumin 2.4 g/dL (3.4-5.0) Albumin/Globulin Ratio 0.5 (1.0-1.7) Laboratory Tests Test 02/15/19 21:10 02/16/19 06:15 Hemoglobin 8.6 g/dL (12.0-15.5) 9.2 g/dL (12.0-15.5) White Blood Count 4.0 x10^3/uL (4.0-11.0) Red Blood Count 2.93 x10^6/uL (3.50-5.40) Hematocrit 26.8 % (36.0-47.0) Mean Corpuscular Volume 92 fL (79-100) Mean Corpuscular Hemoglobin 31 pg (25-35) Mean Corpuscular Hemoglobin Concent 34 g/dL (31-37) Red Cell Distribution Width 20.9 % (11.5-14.5) Platelet Count 176 x10^3/uL (140-400) Neutrophils (%) (Auto) 65 % (31-73) Lymphocytes (%) (Auto) 21 % (24-48) Monocytes (%) (Auto) 11 % (0-9) Eosinophils (%) (Auto) 2 % (0-3) Basophils (%) (Auto) 1 % (0-3) Neutrophils # (Auto) 2.6 x10^3uL (1.8-7.7) Lymphocytes # (Auto) 0.9 x10^3/uL (1.0-4.8) Monocytes # (Auto) 0.5 x10^3/uL (0.0-1.1) Eosinophils # (Auto) 0.1 x10^3/uL (0.0-0.7) Basophils # (Auto) 0.0 x10^3/uL (0.0-0.2) Platelet Estimate Adequate (ADEQUATE) Polychromasia Present Basophilic Stippling Present Sodium Level 132 mmol/L (136-145) Potassium Level 4.2 mmol/L (3.5-5.1) Chloride Level 94 mmol/L (98-107) Carbon Dioxide Level 31 mmol/L (21-32) Anion Gap 7 (6-14) Blood Urea Nitrogen 45 mg/dL (7-20) Creatinine 5.8 mg/dL (0.6-1.0) Estimated GFR (Cockcroft-Gault) 8.9 BUN/Creatinine Ratio 8 (6-20) Glucose Level 93 mg/dL (70-99) Calcium Level 9.0 mg/dL (8.5-10.1) Total Bilirubin 0.7 mg/dL (0.2-1.0) Aspartate Amino Transf (AST/SGOT) 42 U/L (15-37) Alanine Aminotransferase (ALT/SGPT) 11 U/L (14-59) Alkaline Phosphatase 125 U/L (46-116) Total Protein 7.1 g/dL (6.4-8.2) Albumin 2.4 g/dL (3.4-5.0) Albumin/Globulin Ratio 0.5 (1.0-1.7) Medications Current Medications Fentanyl Citrate (Fentanyl 2ml Vial) 50 mcg PRN Q15MIN PRN IV PAIN GREATER THAN 3/10 Last administered on 02/14/19 16:22; Start 02/14/19 at 14:30; Stop at 14:29; Status DC Pantoprazole Sodium (PROTONIX VIAL for IV PUSH) 40 mg 1X ONCE IVP Last administered on 02/14/19 14:56; Start 02/14/19 at 14:30; Stop 02/14/19 at 14:36 ; Status DC Ondansetron HCl (Zofran) 4 mg 1X ONCE IV Last administered on 02/14/19 14:56 ; Start 02/14/19 at 14:30; Stop 02/14/19 at 14:36; Status DC Potassium Chloride (Klor-Con) 40 meq 1X ONCE PO Last administered on at 15:41; Start 02/14/19 at 15:30; Stop 02/14/19 at 15:31; Status DC Pantoprazole Sodium 80 mg/ Sodium Chloride 100 ml @ 10 mls/hr Q10H IV Last administered on 02/16/19at 05:41; Start 02/14/19 at 15:30 Ondansetron HCl (Zofran) 4 mg PRN Q8HRS PRN IV NAUSEA/VOMITING; Start 02/14/19 at 15:30; Stop 02/15/19 at 15:29; Status DC Fentanyl Citrate (Fentanyl 2ml Vial) 50 mcg PRN Q4HRS PRN IV PAIN Last administered on 02/15/19at 20:21; Start 02/14/19 at 15:30 Active Scripts Active Protonix (Pantoprazole Sodium) 20 Mg Tablet.dr 40 Tab PO DAILY Tramadol Hcl 50 Mg Tablet 50 Mg PO PRN Q6HRS PRN Vancomycin Hcl 500 Mg Vial 125 Mg PO [id number] 13 Days Culturelle (Lactobacillus Rhamnosus Gg) 1 Each Cap.sprink 1 Cap PO BID 14 Days Reported Nephro-Edward Tablet (Folic Acid/Vitamin B Comp W-C) 0.8 Mg Tablet 1 Tab PO DAILY Calcium Acetate 667 Mg Tablet 667 Mg PO TIDWMEALS Carvedilol 25 Mg Tablet 25 Mg PO BID Folic Acid 1 Mg Tablet 1 Mg PO DAILY Miralax (Polyethylene Glycol 3350) 17 Gm Powd.pack 1 Packet PO PRN DAILY PRN Amlodipine Besylate 10 Mg Tablet 10 Mg PO DAILY Vitals/I & O Vital Sign - Last 24 Hours 02/15/19 02/15/19 02/15/19 02/15/19 11:00 11:37 12:00 13:00 Temp 98.6 98.6 Pulse 99 90 101 Resp 19 18 15 18 B/P (MAP) 136/62 (86) 136/62 (86) 128/72 (90) Pulse Ox 100 99 99 96 O2 Delivery Room Air Room Air Room Air Room Air 02/15/19 02/15/19 02/15/19 02/15/19 13:25 13:40 14:00 15:00 Temp 98.1 98.2 98.1 98.2 Pulse 93 93 92 93 Resp 18 16 16 18 B/P (MAP) 153/65 142/64 131/71 (91) 156/65 (95) Pulse Ox 96 96 O2 Delivery Room Air Room Air 02/15/19 02/15/19 02/15/19 02/15/19 16:00 16:02 16:13 16:16 Temp 98.1 98.1 98.1 98.1 Pulse 92 88 90 Resp 19 20 15 B/P (MAP) 160/72 (101) 161/58 157/67 Pulse Ox 94 96 O2 Delivery Room Air Room Air 02/15/19 02/15/19 02/15/19 02/15/19 16:30 16:32 17:00 18:00 Temp 98.2 98.2 Pulse 90 93 92 Resp 18 18 16 21 B/P (MAP) 167/58 167/56 (93) 165/52 (89) Pulse Ox 94 93 O2 Delivery Room Air Room Air 02/15/19 02/15/19 02/15/19 02/15/19 19:00 20:00 20:00 20:21 Temp 98.3 98.3 Pulse 87 90 Resp 21 15 B/P (MAP) 173/55 (94) 166/58 (94) Pulse Ox 97 99 97 O2 Delivery Room Air Room Air Room Air O2 Flow Rate 2.0 02/15/19 02/15/19 02/15/19 02/15/19 20:51 21:00 22:00 23:00 Pulse 88 85 88 Resp 24 B/P (MAP) 156/74 (101) 154/58 (90) 150/48 (82) Pulse Ox 98 97 98 98 O2 Delivery Nasal Cannula Nasal Cannula Nasal Cannula Nasal Cannula O2 Flow Rate 2.0 2.0 2.0 2.0 02/16/19 02/16/19 02/16/19 02/16/19 00:00 00:01 01:00 02:00 Temp 98.6 98.6 Pulse 89 88 90 Resp 15 30 18 B/P (MAP) 140/78 (98) 147/54 (85) 149/62 (91) Pulse Ox 99 95 95 O2 Delivery Nasal Cannula Nasal Cannula Nasal Cannula Nasal Cannula O2 Flow Rate 2.0 2.0 2.0 2.0 02/16/19 02/16/19 02/16/19 02/16/19 03:00 04:00 04:00 05:00 Pulse 88 92 92 Resp 18 24 16 B/P (MAP) 158/75 (102) 148/58 (88) 149/73 (98) Pulse Ox 95 94 96 O2 Delivery Nasal Cannula Nasal Cannula Nasal Cannula Nasal Cannula O2 Flow Rate 2.0 2.0 2.0 2.0 02/16/19 02/16/19 02/16/19 02/16/19 06:00 07:00 08:00 08:00 Temp 98.1 98.1 Pulse 91 93 90 Resp 16 18 20 B/P (MAP) 162/77 (105) 153/68 (96) 155/72 (99) Pulse Ox 96 94 96 O2 Delivery Nasal Cannula Room Air Room Air Room Air O2 Flow Rate 2.0 02/16/19 09:00 Pulse 93 Resp 20 B/P (MAP) 156/68 (97) Pulse Ox 97 O2 Delivery Room Air Intake and Output 02/15/19 02/15/19 02/16/19 15:00 23:00 07:00 Intake Total 0 ml 1554 ml 111 ml Output Total 0 ml Balance 0 ml 1554 ml 111 ml ELSY UNDERWOOD MD Feb 16, 2019 10:18
--- NOTE | 2019-02-16 11:06 | PDOC ---
Renal-Progress Notes Subjective Notes Notes FEELING BETTER History of Present Illness Hx of present illness STABLE Vitals Vitals Vital Signs Date Time Temp Pulse Resp B/P (MAP) Pulse Ox O2 Delivery O2 Flow Rate FiO2 02/16/19 10:00 92 24 155/77 (103) 96 Room Air 02/16/19 08:00 98.1 98.1 02/16/19 06:00 2.0 Weight Weight [ ] I.O. Intake and Output Intake and Output 02/16/19 06:59 Intake Total 1665 ml Output Total 0 ml Balance 1665 ml Intake Oral 0 ml IV Total 235 ml Blood Product 700 ml Blood Product IV Normal Saline Flush 730 ml Output Urine Total 0 ml Labs Labs Laboratory Tests Test 02/15/19 21:10 02/16/19 06:15 Hemoglobin 8.6 g/dL (12.0-15.5) 9.2 g/dL (12.0-15.5) White Blood Count 4.0 x10^3/uL (4.0-11.0) Red Blood Count 2.93 x10^6/uL (3.50-5.40) Hematocrit 26.8 % (36.0-47.0) Mean Corpuscular Volume 92 fL (79-100) Mean Corpuscular Hemoglobin 31 pg (25-35) Mean Corpuscular Hemoglobin Concent 34 g/dL (31-37) Red Cell Distribution Width 20.9 % (11.5-14.5) Platelet Count 176 x10^3/uL (140-400) Neutrophils (%) (Auto) 65 % (31-73) Lymphocytes (%) (Auto) 21 % (24-48) Monocytes (%) (Auto) 11 % (0-9) Eosinophils (%) (Auto) 2 % (0-3) Basophils (%) (Auto) 1 % (0-3) Neutrophils # (Auto) 2.6 x10^3uL (1.8-7.7) Lymphocytes # (Auto) 0.9 x10^3/uL (1.0-4.8) Monocytes # (Auto) 0.5 x10^3/uL (0.0-1.1) Eosinophils # (Auto) 0.1 x10^3/uL (0.0-0.7) Basophils # (Auto) 0.0 x10^3/uL (0.0-0.2) Platelet Estimate Adequate (ADEQUATE) Polychromasia Present Basophilic Stippling Present Sodium Level 132 mmol/L (136-145) Potassium Level 4.2 mmol/L (3.5-5.1) Chloride Level 94 mmol/L (98-107) Carbon Dioxide Level 31 mmol/L (21-32) Anion Gap 7 (6-14) Blood Urea Nitrogen 45 mg/dL (7-20) Creatinine 5.8 mg/dL (0.6-1.0) Estimated GFR (Cockcroft-Gault) 8.9 BUN/Creatinine Ratio 8 (6-20) Glucose Level 93 mg/dL (70-99) Calcium Level 9.0 mg/dL (8.5-10.1) Total Bilirubin 0.7 mg/dL (0.2-1.0) Aspartate Amino Transf (AST/SGOT) 42 U/L (15-37) Alanine Aminotransferase (ALT/SGPT) 11 U/L (14-59) Alkaline Phosphatase 125 U/L (46-116) Total Protein 7.1 g/dL (6.4-8.2) Albumin 2.4 g/dL (3.4-5.0) Albumin/Globulin Ratio 0.5 (1.0-1.7) Review of Systems Constitutional: yes: weakness, alert, oriented Ears/Nose/Throat: Yes: no symptom reported Eyes: Yes: no symptom reported Pulmonary: Yes no symptom reported Cardiovascular: Yes no symptom reported Gastrointestional: Yes: hematemesis Genitourinary: Yes: no symptom reported Musculoskeletal: Yes: muscle stiffness Skin: Yes no symptom reported Psychiatric/Neurological: Yes: no symptom reported Endocrine: Yes: no symptom reported Physical Exam General Appearance: no apparent distress Skin: warm Respiratory: decreased breath sounds Heart: S1S2 Abdomen: soft, bowel sounds present Genitourinary: bladder flat Extremities: pulses present Neurology: alert, oriented Assessment Assessment IMP ANEMIA DUE TO BLOOD LOSS ANEMIA OF ESRD DM II HTN LIVER CIRRHOSIS HEP C HX OFETOH ABUSE ESRD on HD - TTS PLAN GI EVAL ARANESP PRBC NEEDED HD TOMORROW UPDATED FAMILY LINNEA SHULTZ MD Feb 16, 2019 11:06
[2019-02-16] MEDS: fentaNYL PF VIAL 100 MCG/2 ML VIAL IV PRN ×3 (12:01→21:22)
[2019-02-16] MEDS ORDERED: LABETALOL 20 MG/4 ML DISP.SYRIN. IVP PRN (12:15)
[2019-02-16] MEDS ORDERED: IV NORMAL SALINE 1000ML BAG 1,000 ML IV SCH (13:45)
[2019-02-16] MEDS ORDERED: MIDAZOLAM HCL/PF 2 MG/2 ML VIAL. IV PRN (13:45)
[2019-02-16] MEDS ORDERED: LIDOCAINE 1% PF 2 ML VIAL. ID PRN (13:45)
[2019-02-16] MEDS ORDERED: fentaNYL PF VIAL 100 MCG/2 ML VIAL IV PRN ×2 (13:45)
[2019-02-16] MEDS ORDERED: PROPOFOL 20 ML IV ONE (14:28)
--- NOTE | 2019-02-16 14:59 | PDOC4 ---
PROCEDURE Procedure EGD Indication: hematemesis/melena Meds: per anesthesia Findings: E--Partly healed esophagitis distally. No varices. G--8-10mm ulcer posterior wall prepyloric area similar to October. No signs of recent bleeding. No varices. D--Patchy erythema, bulb. Second portion normal. Obdulio well. IMP: GERD Persistent , looks benign though and benign in October. REC: continue PPI, PO OK Can eat. random gastric level. Thanks. HAYDER MARLOW MD Feb 16, 2019 14:59
--- NOTE | 2019-02-16 16:03 | NUR ---
SS following for discharge planning. SS reviewed pt chart. Pt is from home and is currently on room air. No discharge needs noted at this time. SS will continue to follow for pending discharge needs.
[2019-02-16] MEDS ORDERED: hydrALAZINE 20 MG/ML VIAL. IVP PRN (17:00)
[2019-02-16] MEDS ORDERED: hydrALAZINE 20 MG/ML VIAL. IVP ONE (17:00)
[2019-02-16] MEDS ORDERED: cloNIDine HCL 0.1 MG TABLET PO PRN (17:00)
[2019-02-16] MEDS ORDERED: DARBEPOETIN ALFA 60 MCG/0.3 ML DISP.SYRIN. SQ SCH (21:00)
[2019-02-16] MEDS: TEMAZEPAM 7.5 MG CAPSULE PO PRN (22:56)
[2019-02-17 03:00] VITALS: BP 157/62
[2019-02-17 05:56] LABS: HEMATOCRIT 25.8 % (36.0-47.0); HEMOGLOBIN 8.8 g/dL (12.0-15.5); RED BLOOD COUNT 2.81 x10^6/uL (3.50-5.40); RED CELL DISTRIBUTION WIDTH 20.4 % (11.5-14.5); WHITE BLOOD COUNT 3.9 x10^3/uL (4.0-11.0)
[2019-02-17 06:06] LABS: CALCIUM 8.9 mg/dL (8.5-10.1); CREATININE 6.8 mg/dL (0.6-1.0); GFR 7.4; POTASSIUM 4.2 mmol/L (3.5-5.1)
[2019-02-17 07:00] VITALS: BP 164/74
[2019-02-17] MEDS: PANTOPRAZOLE 40 MG TABLET.DR. PO SCH (07:26)
[2019-02-17] MEDS ORDERED: IV NORMAL SALINE 1000ML BAG 1,000 ML IV PRN ×2 (07:44)
[2019-02-17] MEDS ORDERED: DIALYSIS PATIENT. MC PRN (07:45)
[2019-02-17] MEDS ORDERED: diphenhydrAMINE 50 MG/ML VIAL IV PRN ×2 (07:45)
--- NOTE | 2019-02-17 11:07 | PDOC ---
Subjective: Subjective: No bleeding, no pain. Tolerated "just liquids" yesterday. Loose stools. Objective: Objective: In C Diff precautions - can't see that C Diff ordered, 1 stool charted. Vital Signs: Vital Signs Date Time Temp Pulse Resp B/P (MAP) Pulse Ox O2 Delivery O2 Flow Rate FiO2 02/17/19 08:00 Room Air 2.0 02/17/19 07:00 97.8 85 18 164/74 (104) 94 97.8 Labs: Laboratory Tests Test 02/16/19 16:43 02/16/19 17:17 02/16/19 20:36 02/17/19 07:21 Glucose (Fingerstick) 68 mg/dL (70-99) 98 mg/dL (70-99) 92 mg/dL (70-99) 109 mg/dL (70-99) Imaging: EGD 02/16 E--Partly healed esophagitis distally. No varices. G--8-10mm ulcer posterior wall prepyloric area similar to October. No signs of recent bleeding. No varices. D--Patchy erythema, bulb. Second portion normal. IMP: GERD Persistent , looks benign though and benign in October. PE: GEN: dialyzing LUNGS: CTAB HEART: RRR ABD: NABS, S/ND/NT NEURO/PSYCH: A & O 3 A/P: Hematemesis/melena - no recurrence GERD, persistent - path benign in 10/2018, gastrin level pending Chronic anemia - stable Cirrhosis w/ h/o alcohol and Hep C H/o C Diff ESRD on HD -- Continue PPI, await gastrin, check C Diff. IRIS SZYMANSKI Feb 17, 2019 11:07
--- NOTE | 2019-02-17 11:25 | PDOC ---
PROGRESS NOTES Chief Complaint Chief Complaint Hematemesis History of Present Illness History of Present Illness The patient was seen in dialysis today. She is doing well. She has dialysis on Saturday, , and Saturdays. She denies any diarrhea (mostly just melena) or hematemesis currently. Vitals Vitals Vital Signs Date Time Temp Pulse Resp B/P (MAP) Pulse Ox O2 Delivery O2 Flow Rate FiO2 02/17/19 08:00 Room Air 2.0 02/17/19 07:00 97.8 85 18 164/74 (104) 94 97.8 Physical Exam General: Alert, Oriented X3, Cooperative, No acute distress Heart: Regular rate, Normal S1, Normal S2, No murmurs Lungs: Clear (No wheezes, rales, or rhonci) Abdomen: Soft, No tenderness, No masses Extremities: No edema, Normal pulses, No tenderness/swelling Skin: No rashes, No breakdown, No significant lesion Labs LABS Laboratory Tests Test 02/16/19 16:43 02/16/19 17:17 02/16/19 20:36 02/17/19 05:20 Glucose (Fingerstick) 68 mg/dL (70-99) 98 mg/dL (70-99) 92 mg/dL (70-99) White Blood Count 3.9 x10^3/uL (4.0-11.0) Red Blood Count 2.81 x10^6/uL (3.50-5.40) Hemoglobin 8.8 g/dL (12.0-15.5) Hematocrit 25.8 % (36.0-47.0) Mean Corpuscular Volume 92 fL (79-100) Mean Corpuscular Hemoglobin 31 pg (25-35) Mean Corpuscular Hemoglobin Concent 34 g/dL (31-37) Red Cell Distribution Width 20.4 % (11.5-14.5) Platelet Count 171 x10^3/uL (140-400) Sodium Level 134 mmol/L (136-145) Potassium Level 4.2 mmol/L (3.5-5.1) Chloride Level 96 mmol/L (98-107) Carbon Dioxide Level 30 mmol/L (21-32) Anion Gap 8 (6-14) Blood Urea Nitrogen 53 mg/dL (7-20) Creatinine 6.8 mg/dL (0.6-1.0) Estimated GFR (Cockcroft-Gault) 7.4 Glucose Level 114 mg/dL (70-99) Calcium Level 8.9 mg/dL (8.5-10.1) Test 02/17/19 07:21 Glucose (Fingerstick) 109 mg/dL (70-99) Review of Systems Review of Systems Patient is having melena. She denies fevers, chills, N/V, CP, SOB, and diarrhea. Assessment and Plan Assessmemt and Plan Problems Medical Problems: (1) Abdominal pain Status: Acute (2) Anemia Status: Acute (3) Elevated troponin Status: Acute Assessment: Acute blood loss anemia ESRD on HD H/o GERD and pUD Cirrhosis - h/o heavy alcohol use and Hep C (genotype 1a) H/o C Diff H/o Rupal Hauser tear - S/p EGD (Dr. Faulkner) 04/2016 (for melena/anemia): Grade 1 esophagitis, alcoholic gastritis. Chronic anemia - Hgb usually in 8-9 range. HTN HLD RA DM Hyperparathyroidism Plan: PPI Hemodialysis Tuesdays, , and Saturdays EGD showed 8-10mm stomach ulcer with no recent bleeding 02/16 Awaiting c diff results Trend Hgb (5.2 -> 6.4 -> 8.6 -> 9.2 -> 8.8 4 units of prbc given) Await gastrin level Nephrology consult GI consult PT/OT F/u labs Continue home meds DVT prophylaxis DC when ok with subspecialist Comment Review of Relevant I have reviewed the following items tamika (where applicable) has been applied. Labs Laboratory Tests Test 02/15/19 21:10 02/16/19 06:15 02/16/19 16:43 02/16/19 17:17 Hemoglobin 8.6 g/dL (12.0-15.5) 9.2 g/dL (12.0-15.5) White Blood Count 4.0 x10^3/uL (4.0-11.0) Red Blood Count 2.93 x10^6/uL (3.50-5.40) Hematocrit 26.8 % (36.0-47.0) Mean Corpuscular Volume 92 fL (79-100) Mean Corpuscular Hemoglobin 31 pg (25-35) Mean Corpuscular Hemoglobin Concent 34 g/dL (31-37) Red Cell Distribution Width 20.9 % (11.5-14.5) Platelet Count 176 x10^3/uL (140-400) Neutrophils (%) (Auto) 65 % (31-73) Lymphocytes (%) (Auto) 21 % (24-48) Monocytes (%) (Auto) 11 % (0-9) Eosinophils (%) (Auto) 2 % (0-3) Basophils (%) (Auto) 1 % (0-3) Neutrophils # (Auto) 2.6 x10^3uL (1.8-7.7) Lymphocytes # (Auto) 0.9 x10^3/uL (1.0-4.8) Monocytes # (Auto) 0.5 x10^3/uL (0.0-1.1) Eosinophils # (Auto) 0.1 x10^3/uL (0.0-0.7) Basophils # (Auto) 0.0 x10^3/uL (0.0-0.2) Platelet Estimate Adequate (ADEQUATE) Polychromasia Present Basophilic Stippling Present Sodium Level 132 mmol/L (136-145) Potassium Level 4.2 mmol/L (3.5-5.1) Chloride Level 94 mmol/L (98-107) Carbon Dioxide Level 31 mmol/L (21-32) Anion Gap 7 (6-14) Blood Urea Nitrogen 45 mg/dL (7-20) Creatinine 5.8 mg/dL (0.6-1.0) Estimated GFR (Cockcroft-Gault) 8.9 BUN/Creatinine Ratio 8 (6-20) Glucose Level 93 mg/dL (70-99) Calcium Level 9.0 mg/dL (8.5-10.1) Total Bilirubin 0.7 mg/dL (0.2-1.0) Aspartate Amino Transf (AST/SGOT) 42 U/L (15-37) Alanine Aminotransferase (ALT/SGPT) 11 U/L (14-59) Alkaline Phosphatase 125 U/L (46-116) Total Protein 7.1 g/dL (6.4-8.2) Albumin 2.4 g/dL (3.4-5.0) Albumin/Globulin Ratio 0.5 (1.0-1.7) Glucose (Fingerstick) 68 mg/dL (70-99) 98 mg/dL (70-99) Test 02/16/19 20:36 02/17/19 05:20 02/17/19 07:21 Glucose (Fingerstick) 92 mg/dL (70-99) 109 mg/dL (70-99) White Blood Count 3.9 x10^3/uL (4.0-11.0) Red Blood Count 2.81 x10^6/uL (3.50-5.40) Hemoglobin 8.8 g/dL (12.0-15.5) Hematocrit 25.8 % (36.0-47.0) Mean Corpuscular Volume 92 fL (79-100) Mean Corpuscular Hemoglobin 31 pg (25-35) Mean Corpuscular Hemoglobin Concent 34 g/dL (31-37) Red Cell Distribution Width 20.4 % (11.5-14.5) Platelet Count 171 x10^3/uL (140-400) Sodium Level 134 mmol/L (136-145) Potassium Level 4.2 mmol/L (3.5-5.1) Chloride Level 96 mmol/L (98-107) Carbon Dioxide Level 30 mmol/L (21-32) Anion Gap 8 (6-14) Blood Urea Nitrogen 53 mg/dL (7-20) Creatinine 6.8 mg/dL (0.6-1.0) Estimated GFR (Cockcroft-Gault) 7.4 Glucose Level 114 mg/dL (70-99) Calcium Level 8.9 mg/dL (8.5-10.1) Laboratory Tests Test 02/16/19 16:43 02/16/19 17:17 02/16/19 20:36 02/17/19 05:20 Glucose (Fingerstick) 68 mg/dL (70-99) 98 mg/dL (70-99) 92 mg/dL (70-99) White Blood Count 3.9 x10^3/uL (4.0-11.0) Red Blood Count 2.81 x10^6/uL (3.50-5.40) Hemoglobin 8.8 g/dL (12.0-15.5) Hematocrit 25.8 % (36.0-47.0) Mean Corpuscular Volume 92 fL (79-100) Mean Corpuscular Hemoglobin 31 pg (25-35) Mean Corpuscular Hemoglobin Concent 34 g/dL (31-37) Red Cell Distribution Width 20.4 % (11.5-14.5) Platelet Count 171 x10^3/uL (140-400) Sodium Level 134 mmol/L (136-145) Potassium Level 4.2 mmol/L (3.5-5.1) Chloride Level 96 mmol/L (98-107) Carbon Dioxide Level 30 mmol/L (21-32) Anion Gap 8 (6-14) Blood Urea Nitrogen 53 mg/dL (7-20) Creatinine 6.8 mg/dL (0.6-1.0) Estimated GFR (Cockcroft-Gault) 7.4 Glucose Level 114 mg/dL (70-99) Calcium Level 8.9 mg/dL (8.5-10.1) Test 02/17/19 07:21 Glucose (Fingerstick) 109 mg/dL (70-99) Medications Current Medications Fentanyl Citrate (Fentanyl 2ml Vial) 50 mcg PRN Q15MIN PRN IV PAIN GREATER THAN 3/10 Last administered on 02/14/19at 16:22; Start 02/14/19 at 14:30; Stop 02/15/19 at 14:29; Status DC Pantoprazole Sodium (PROTONIX VIAL for IV PUSH) 40 mg 1X ONCE IVP Last administered on 02/14/19at 14:56; Start 02/14/19 at 14:30; Stop 02/14/19 at 14:36; Status DC Ondansetron HCl (Zofran) 4 mg 1X ONCE IV Last administered on 02/14/19at 14:56; Start 02/14/19 at 14:30; Stop 02/14/19 at 14:36; Status DC Potassium Chloride (Klor-Con) 40 meq 1X ONCE PO Last administered on 02/14/19at 15:41; Start 02/14/19 at 15:30; Stop 02/14/19 at 15:31; Status DC Pantoprazole Sodium 80 mg/ Sodium Chloride 100 ml @ 10 mls/hr Q10H IV Last administered on 02/16/19at 05:41; Start 02/14/19 at 15:30; Stop 02/16/19 at 15:01; Status DC Ondansetron HCl (Zofran) 4 mg PRN Q8HRS PRN IV NAUSEA/VOMITING; Start 02/14/19 at 15:30; Stop 02/15/19 at 15:29; Status DC Fentanyl Citrate (Fentanyl 2ml Vial) 50 mcg PRN Q4HRS PRN IV PAIN Last administered on 02/16/19at 21:22; Start 02/14/19 at 15:30 Darbepoetin Bolivar (Aranesp) 60 mcg WEEKLYHS SQ Last administered on 02/16/19at 21:57; Start 02/16/19 at 21:00 Labetalol HCl (Normodyne Iv Push) 20 mg PRN Q4HRS PRN IVP HYPERTENSION, 2ND CHOICE; Start 02/16/19 at 12:15 Midazolam HCl (Versed) 2 mg PRN 1X PRN IV PRIOR TO PROCEDURE; Start 02/16/19 at 13:45; Stop 02/17/19 at 13:44 Fentanyl Citrate (Fentanyl 2ml Vial) 25 mcg PRN Q5MIN PRN IV X 2 DOSES FOR PAIN; Start 02/16/19 at 13:45; Stop 02/17/19 at 13:44 Fentanyl Citrate (Fentanyl 2ml Vial) 50 mcg PRN Q5MIN PRN IV X 2 DOSES FOR PAIN; Start 02/16/19 at 13:45; Stop 02/17/19 at 13:44 Sodium Chloride 1,000 ml @ 125 mls/hr Q8H IV Last administered on 02/16/19at 13:45; Start 02/16/19 at 13:45; Stop 02/17/19 at 01:44; Status DC Lidocaine HCl (Xylocaine-Mpf 1% 2ml Vial) 2 ml 1X PRN PRN ID IV START; Start 02/16/19 at 13:45; Stop 02/17/19 at 13:44 Propofol 20 ml @ As Directed STK-MED ONCE IV ; Start 02/16/19 at 14:28; Stop 02/16/19 at 14:29; Status DC Pantoprazole Sodium (Protonix) 40 mg DAILYAC PO Last administered on 02/17/19at 07:26; Start 02/17/19 at 07:30 Clonidine HCl (Catapres) 0.1 mg PRN Q1HR PRN PO HYPERTENSION, SEE COMMENTS Last administered on 02/16/19at 17:19; Start 02/16/19 at 17:00 Hydralazine HCl (Apresoline Inj) 10 mg PRN Q4HRS PRN IVP ELEVATED BP, 1ST CHOICE; Start 02/16/19 at 17:00 Hydralazine HCl (Apresoline Inj) 10 mg 1X ONCE IVP ; Start 02/16/19 at 17:00; Stop 02/16/19 at 17:13; Status DC Temazepam (Restoril) 7.5 mg PRN QHS PRN PO INSOMNIA Last administered on 02/16/19at 22:56; Start 02/16/19 at 22:30 Sodium Chloride 1,000 ml @ 1,000 mls/hr Q1H PRN IV hypotension; Start 02/17/19 at 07:44; Stop 02/17/19 at 13:43 Diphenhydramine HCl (Benadryl) 25 mg 1X PRN PRN IV ITCHING; Start 02/17/19 at 07:45; Stop 02/18/19 at 07:44 Diphenhydramine HCl (Benadryl) 25 mg 1X PRN PRN IV ITCHING; Start 02/17/19 at 07:45; Stop 02/18/19 at 07:44 Sodium Chloride 1,000 ml @ 400 mls/hr Q2H30M PRN IV PATENCY; Start 02/17/19 at 07:44; Stop 02/17/19 at 19:43 Info (PHARMACY MONITORING -- do not chart) 1 each PRN DAILY PRN MC SEE COMMENTS; Start 02/17/19 at 07:45 Active Scripts Active Protonix (Pantoprazole Sodium) 20 Mg Tablet.dr 40 Tab PO DAILY Tramadol Hcl 50 Mg Tablet 50 Mg PO PRN Q6HRS PRN Vancomycin Hcl 500 Mg Vial 125 Mg PO [id number] Days Culturelle (Lactobacillus Rhamnosus Gg) 1 Each Cap.sprink 1 Cap PO BID 14 Days Reported Nephro-Edward Tablet (Folic Acid/Vitamin B Comp W-C) 0.8 Mg Tablet 1 Tab PO DAILY Calcium Acetate 667 Mg Tablet 667 Mg PO TIDWMEALS Carvedilol 25 Mg Tablet 25 Mg PO BID Folic Acid 1 Mg Tablet 1 Mg PO DAILY Miralax (Polyethylene Glycol 3350) 17 Gm Powd.pack 1 Packet PO PRN DAILY PRN Amlodipine Besylate 10 Mg Tablet 10 Mg PO DAILY Vitals/I & O Vital Sign - Last 24 Hours 02/16/19 02/16/19 02/16/19 02/16/19 12:00 12:00 12:01 13:00 Temp 98.1 98.1 Pulse 92 90 Resp 16 35 B/P (MAP) 164/67 (99) 146/66 (92) Pulse Ox 94 99 98 O2 Delivery Room Air Room Air Room Air Room Air 02/16/19 02/16/19 02/16/19 02/16/19 13:40 13:44 14:58 15:05 Temp 97.8 98.7 97.8 98.7 Pulse 90 91 90 Resp 18 16 18 B/P (MAP) 187/79 155/70 Pulse Ox 93 99 99 O2 Delivery Room Air Nasal Cannula Nasal Cannula O2 Flow Rate 2.0 2 2 02/16/19 02/16/19 02/16/19 02/16/19 15:18 15:23 15:30 16:30 Temp 98.0 97.9 98.0 97.9 Pulse 89 90 88 89 Resp 16 16 18 18 B/P (MAP) 161/72 165/72 161/70 (100) 183/81 (115) Pulse Ox 97 97 97 94 O2 Delivery Room Air Room Air Room Air Room Air 02/16/19 02/16/19 02/16/19 02/16/19 17:19 17:20 18:00 19:00 Temp 98.8 98.8 Pulse 89 79 Resp 18 B/P (MAP) 183/81 127/57 (80) Pulse Ox 94 100 O2 Delivery Room Air Room Air O2 Flow Rate 2.0 2.0 02/16/19 02/16/19 02/16/19 02/16/19 20:00 21:22 21:52 23:00 Temp 98.6 98.6 Pulse 83 Resp 20 20 16 B/P (MAP) 139/61 (87) Pulse Ox 100 100 100 O2 Delivery Room Air Room Air Room Air Room Air 02/17/19 02/17/19 02/17/19 03:00 07:00 08:00 Temp 97.8 97.8 97.8 97.8 Pulse 89 85 Resp 18 18 B/P (MAP) 157/62 (93) 164/74 (104) Pulse Ox 100 94 O2 Delivery Room Air Room Air Room Air O2 Flow Rate 2.0 Intake and Output 4/22/19 4/22/19 4/23/19 14:59 22:59 06:59 Intake Total 0 ml 540 ml 0 ml Output Total 0 ml Balance 0 ml 540 ml 0 ml VIKAS GAMEZ III DO Feb 17, 2019 11:25
--- NOTE | 2019-02-17 12:12 | PDOC ---
Renal-Progress Notes Subjective Notes Notes FEELING TIRED History of Present Illness Hx of present illness STABLE Vitals Vitals Vital Signs Date Time Temp Pulse Resp B/P (MAP) Pulse Ox O2 Delivery O2 Flow Rate FiO2 02/17/19 08:00 Room Air 2.0 02/17/19 07:00 97.8 85 18 164/74 (104) 94 97.8 Weight Weight [ ] I.O. Intake and Output Intake and Output 02/17/19 07:00 Intake Total 540 ml Output Total 0 ml Balance 540 ml Intake Oral 540 ml Output Urine Total 0 ml # Voids 2 # Bowel Movements 1 Labs Labs Laboratory Tests Test 02/16/19 16:43 02/16/19 17:17 02/16/19 20:36 02/17/19 05:20 Glucose (Fingerstick) 68 mg/dL (70-99) 98 mg/dL (70-99) 92 mg/dL (70-99) White Blood Count 3.9 x10^3/uL (4.0-11.0) Red Blood Count 2.81 x10^6/uL (3.50-5.40) Hemoglobin 8.8 g/dL (12.0-15.5) Hematocrit 25.8 % (36.0-47.0) Mean Corpuscular Volume 92 fL (79-100) Mean Corpuscular Hemoglobin 31 pg (25-35) Mean Corpuscular Hemoglobin Concent 34 g/dL (31-37) Red Cell Distribution Width 20.4 % (11.5-14.5) Platelet Count 171 x10^3/uL (140-400) Sodium Level 134 mmol/L (136-145) Potassium Level 4.2 mmol/L (3.5-5.1) Chloride Level 96 mmol/L (98-107) Carbon Dioxide Level 30 mmol/L (21-32) Anion Gap 8 (6-14) Blood Urea Nitrogen 53 mg/dL (7-20) Creatinine 6.8 mg/dL (0.6-1.0) Estimated GFR (Cockcroft-Gault) 7.4 Glucose Level 114 mg/dL (70-99) Calcium Level 8.9 mg/dL (8.5-10.1) Test 02/17/19 07:21 Glucose (Fingerstick) 109 mg/dL (70-99) Review of Systems Constitutional: yes: weakness, alert, oriented Ears/Nose/Throat: Yes: no symptom reported Eyes: Yes: no symptom reported Pulmonary: Yes no symptom reported Cardiovascular: Yes no symptom reported Gastrointestional: Yes: hematemesis Genitourinary: Yes: no symptom reported Musculoskeletal: Yes: muscle stiffness Skin: Yes no symptom reported Psychiatric/Neurological: Yes: no symptom reported Endocrine: Yes: no symptom reported Physical Exam General Appearance: no apparent distress Skin: warm Respiratory: decreased breath sounds Heart: S1S2 Abdomen: soft, bowel sounds present Genitourinary: bladder flat Extremities: pulses present Neurology: alert, oriented Assessment Assessment IMP ANEMIA DUE TO BLOOD LOSS- ANEMIA OF ESRD DM II HTN LIVER CIRRHOSIS HEP C HX OFETOH ABUSE ESRD on HD - TTS PLAN GI EVAL ARANESP HD TODAY UF TO DW LINNEA SHULTZ MD Feb 17, 2019 12:12
[2019-02-17] MEDS: fentaNYL PF VIAL 100 MCG/2 ML VIAL IV PRN (13:08)
[2019-02-17 15:00] VITALS: BP 156/70
[2019-02-17 18:53] VITALS: BP 155/74
[2019-02-17] MEDS: TEMAZEPAM 7.5 MG CAPSULE PO PRN (22:06)
[2019-02-17 23:00] VITALS: BP 160/81
[2019-02-18] MEDS: fentaNYL PF VIAL 100 MCG/2 ML VIAL IV PRN ×2 (01:30→09:39)
[2019-02-18 02:52] VITALS: BP 156/73
[2019-02-18 07:00] VITALS: BP 151/76
[2019-02-18] MEDS: PANTOPRAZOLE 40 MG TABLET.DR. PO SCH (07:38)
[2019-02-18 08:26] LABS: BASO % 1 % (0-3); EOS # 0.1 x10^3/uL (0.0-0.7); EOS % 3 % (0-3); HEMATOCRIT 26.3 % (36.0-47.0); HEMOGLOBIN 9.1 g/dL (12.0-15.5); LYMPH # 0.7 x10^3/uL (1.0-4.8); LYMPH % 20 % (24-48); MEAN CORPUSCULAR HEMOGLOBIN 32 pg (25-35); MEAN CORPUSCULAR HGB CONC 35 g/dL (31-37); MEAN CORPUSCULAR VOLUME 93 fL (79-100); MONO # 0.5 x10^3/uL (0.0-1.1); MONO % 14 % (0-9); NEUT # 2.3 x10^3uL (1.8-7.7); NEUT % 63 % (31-73); PLATELET COUNT 159 x10^3/uL (140-400); RED BLOOD COUNT 2.85 x10^6/uL (3.50-5.40); RED CELL DISTRIBUTION WIDTH 20.1 % (11.5-14.5); WHITE BLOOD COUNT 3.7 x10^3/uL (4.0-11.0)
[2019-02-18 08:44] LABS: CREATININE 4.8 mg/dL (0.6-1.0); GFR 11.1; POTASSIUM 3.7 mmol/L (3.5-5.1)
[2019-02-18 10:48] VITALS: BP 156/72
--- NOTE | 2019-02-18 11:04 | PDOC ---
Subjective: Subjective: Having an echocardiogram. Doing better, eating okay. Objective: Vital Signs: Vital Signs Date Time Temp Pulse Resp B/P (MAP) Pulse Ox O2 Delivery O2 Flow Rate FiO2 02/18/19 10:48 98.3 85 18 156/72 (100) 93 Room Air 98.3 02/18/19 09:39 2.0 Labs: Laboratory Tests Test 02/17/19 16:50 02/18/19 07:15 02/18/19 07:43 Glucose (Fingerstick) 82 mg/dL 100 mg/dL White Blood Count 3.7 x10^3/uL Red Blood Count 2.85 x10^6/uL Hemoglobin 9.1 g/dL Hematocrit 26.3 % Mean Corpuscular Volume 93 fL Mean Corpuscular Hemoglobin 32 pg Mean Corpuscular Hemoglobin Concent 35 g/dL Red Cell Distribution Width 20.1 % Platelet Count 159 x10^3/uL Neutrophils (%) (Auto) 63 % Lymphocytes (%) (Auto) 20 % Monocytes (%) (Auto) 14 % Eosinophils (%) (Auto) 3 % Basophils (%) (Auto) 1 % Neutrophils # (Auto) 2.3 x10^3uL Lymphocytes # (Auto) 0.7 x10^3/uL Monocytes # (Auto) 0.5 x10^3/uL Eosinophils # (Auto) 0.1 x10^3/uL Basophils # (Auto) 0.0 x10^3/uL Sodium Level 137 mmol/L Potassium Level 3.7 mmol/L Chloride Level 97 mmol/L Carbon Dioxide Level 34 mmol/L Anion Gap 6 Blood Urea Nitrogen 22 mg/dL Creatinine 4.8 mg/dL Estimated GFR (Cockcroft-Gault) 11.1 Glucose Level 107 mg/dL Calcium Level 9.0 mg/dL Imaging: Echocardiogram 02/18 pending PE: GEN: NAD - having echocardiogram LUNGS: room air ABD: soft, non-tender NEURO/PSYCH: A & O 3 A/P: Hematemesis/melena - no recurrence, chronic anemia stable GERD, persistent on EGD 02/16 -- Gastrin level pending. Can cancel C Diff - no longer having diarrhea. Continue PPI. IRIS SZYMANSKI Feb 18, 2019 11:04
--- NOTE | 2019-02-18 12:07 | PDOC ---
PROGRESS NOTES Chief Complaint Chief Complaint Hematemesis History of Present Illness History of Present Illness The patient was seen sleeping in bed today. She is doing well. She denies any diarrhea or hematemesis currently. She has no complaints Vitals Vitals Vital Signs Date Time Temp Pulse Resp B/P (MAP) Pulse Ox O2 Delivery O2 Flow Rate FiO2 02/18/19 10:48 98.3 85 18 156/72 (100) 93 Room Air 98.3 02/18/19 09:39 2.0 Physical Exam General: Alert, Oriented X3, Cooperative, No acute distress Heart: Regular rate, Normal S1, Normal S2, No murmurs Lungs: Clear (No wheezes, rales, or rhonci) Abdomen: Soft, No tenderness, No masses Extremities: No edema, Normal pulses, No tenderness/swelling Skin: No rashes, No breakdown, No significant lesion Labs LABS Laboratory Tests Test 02/17/19 16:50 02/18/19 07:15 02/18/19 07:43 02/18/19 11:14 Glucose (Fingerstick) 82 mg/dL (70-99) 100 mg/dL (70-99) 151 mg/dL (70-99) White Blood Count 3.7 x10^3/uL (4.0-11.0) Red Blood Count 2.85 x10^6/uL (3.50-5.40) Hemoglobin 9.1 g/dL (12.0-15.5) Hematocrit 26.3 % (36.0-47.0) Mean Corpuscular Volume 93 fL (79-100) Mean Corpuscular Hemoglobin 32 pg (25-35) Mean Corpuscular Hemoglobin Concent 35 g/dL (31-37) Red Cell Distribution Width 20.1 % (11.5-14.5) Platelet Count 159 x10^3/uL (140-400) Neutrophils (%) (Auto) 63 % (31-73) Lymphocytes (%) (Auto) 20 % (24-48) Monocytes (%) (Auto) 14 % (0-9) Eosinophils (%) (Auto) 3 % (0-3) Basophils (%) (Auto) 1 % (0-3) Neutrophils # (Auto) 2.3 x10^3uL (1.8-7.7) Lymphocytes # (Auto) 0.7 x10^3/uL (1.0-4.8) Monocytes # (Auto) 0.5 x10^3/uL (0.0-1.1) Eosinophils # (Auto) 0.1 x10^3/uL (0.0-0.7) Basophils # (Auto) 0.0 x10^3/uL (0.0-0.2) Sodium Level 137 mmol/L (136-145) Potassium Level 3.7 mmol/L (3.5-5.1) Chloride Level 97 mmol/L (98-107) Carbon Dioxide Level 34 mmol/L (21-32) Anion Gap 6 (6-14) Blood Urea Nitrogen 22 mg/dL (7-20) Creatinine 4.8 mg/dL (0.6-1.0) Estimated GFR (Cockcroft-Gault) 11.1 Glucose Level 107 mg/dL (70-99) Calcium Level 9.0 mg/dL (8.5-10.1) Review of Systems Review of Systems Patient denies fevers, chills, N/V, CP, SOB, diarrhea. Assessment and Plan Assessmemt and Plan Problems Medical Problems: (1) Abdominal pain Status: Acute (2) Anemia Status: Acute (3) Elevated troponin Status: Acute Assessment: Acute blood loss anemia ESRD on HD Saturday, , Saturday H/o GERD and PUD Cirrhosis - h/o heavy alcohol use and Hep C (genotype 1a) H/o C Diff H/o Rupal Hauser tear - S/p EGD (Dr. Faulkner) 04/2016 (for melena/anemia): Grade 1 esophagitis, alcoholic gastritis. Chronic anemia - Hgb usually in 8-9 range. HTN HLD RA DM Hyperparathyroidism Plan: PPI Hemodialysis Tuesdays, , and Saturdays EGD showed 8-10mm stomach ulcer with no recent bleeding 02/16 C diff results canceled- patient is no longer having diarrhea Trend Hgb (5.2 -> 6.4 -> 8.6 -> 9.2 -> 8.8 -> 9.1 4 units of prbc given) Await gastrin level Nephrology consult GI consult PT/OT F/u labs Continue home meds DVT prophylaxis Comment Review of Relevant I have reviewed the following items tamika (where applicable) has been applied. Labs Laboratory Tests Test 02/16/19 16:43 02/16/19 17:17 02/16/19 20:36 02/17/19 05:20 Glucose (Fingerstick) 68 mg/dL (70-99) 98 mg/dL (70-99) 92 mg/dL (70-99) White Blood Count 3.9 x10^3/uL (4.0-11.0) Red Blood Count 2.81 x10^6/uL (3.50-5.40) Hemoglobin 8.8 g/dL (12.0-15.5) Hematocrit 25.8 % (36.0-47.0) Mean Corpuscular Volume 92 fL (79-100) Mean Corpuscular Hemoglobin 31 pg (25-35) Mean Corpuscular Hemoglobin Concent 34 g/dL (31-37) Red Cell Distribution Width 20.4 % (11.5-14.5) Platelet Count 171 x10^3/uL (140-400) Sodium Level 134 mmol/L (136-145) Potassium Level 4.2 mmol/L (3.5-5.1) Chloride Level 96 mmol/L (98-107) Carbon Dioxide Level 30 mmol/L (21-32) Anion Gap 8 (6-14) Blood Urea Nitrogen 53 mg/dL (7-20) Creatinine 6.8 mg/dL (0.6-1.0) Estimated GFR (Cockcroft-Gault) 7.4 Glucose Level 114 mg/dL (70-99) Calcium Level 8.9 mg/dL (8.5-10.1) Test 02/17/19 07:21 02/17/19 16:50 02/18/19 07:15 02/18/19 07:43 Glucose (Fingerstick) 109 mg/dL (70-99) 82 mg/dL (70-99) 100 mg/dL (70-99) White Blood Count 3.7 x10^3/uL (4.0-11.0) Red Blood Count 2.85 x10^6/uL (3.50-5.40) Hemoglobin 9.1 g/dL (12.0-15.5) Hematocrit 26.3 % (36.0-47.0) Mean Corpuscular Volume 93 fL (79-100) Mean Corpuscular Hemoglobin 32 pg (25-35) Mean Corpuscular Hemoglobin Concent 35 g/dL (31-37) Red Cell Distribution Width 20.1 % (11.5-14.5) Platelet Count 159 x10^3/uL (140-400) Neutrophils (%) (Auto) 63 % (31-73) Lymphocytes (%) (Auto) 20 % (24-48) Monocytes (%) (Auto) 14 % (0-9) Eosinophils (%) (Auto) 3 % (0-3) Basophils (%) (Auto) 1 % (0-3) Neutrophils # (Auto) 2.3 x10^3uL (1.8-7.7) Lymphocytes # (Auto) 0.7 x10^3/uL (1.0-4.8) Monocytes # (Auto) 0.5 x10^3/uL (0.0-1.1) Eosinophils # (Auto) 0.1 x10^3/uL (0.0-0.7) Basophils # (Auto) 0.0 x10^3/uL (0.0-0.2) Sodium Level 137 mmol/L (136-145) Potassium Level 3.7 mmol/L (3.5-5.1) Chloride Level 97 mmol/L (98-107) Carbon Dioxide Level 34 mmol/L (21-32) Anion Gap 6 (6-14) Blood Urea Nitrogen 22 mg/dL (7-20) Creatinine 4.8 mg/dL (0.6-1.0) Estimated GFR (Cockcroft-Gault) 11.1 Glucose Level 107 mg/dL (70-99) Calcium Level 9.0 mg/dL (8.5-10.1) Test 02/18/19 11:14 Glucose (Fingerstick) 151 mg/dL (70-99) Laboratory Tests Test 02/17/19 16:50 02/18/19 07:15 02/18/19 07:43 02/18/19 11:14 Glucose (Fingerstick) 82 mg/dL (70-99) 100 mg/dL (70-99) 151 mg/dL (70-99) White Blood Count 3.7 x10^3/uL (4.0-11.0) Red Blood Count 2.85 x10^6/uL (3.50-5.40) Hemoglobin 9.1 g/dL (12.0-15.5) Hematocrit 26.3 % (36.0-47.0) Mean Corpuscular Volume 93 fL (79-100) Mean Corpuscular Hemoglobin 32 pg (25-35) Mean Corpuscular Hemoglobin Concent 35 g/dL (31-37) Red Cell Distribution Width 20.1 % (11.5-14.5) Platelet Count 159 x10^3/uL (140-400) Neutrophils (%) (Auto) 63 % (31-73) Lymphocytes (%) (Auto) 20 % (24-48) Monocytes (%) (Auto) 14 % (0-9) Eosinophils (%) (Auto) 3 % (0-3) Basophils (%) (Auto) 1 % (0-3) Neutrophils # (Auto) 2.3 x10^3uL (1.8-7.7) Lymphocytes # (Auto) 0.7 x10^3/uL (1.0-4.8) Monocytes # (Auto) 0.5 x10^3/uL (0.0-1.1) Eosinophils # (Auto) 0.1 x10^3/uL (0.0-0.7) Basophils # (Auto) 0.0 x10^3/uL (0.0-0.2) Sodium Level 137 mmol/L (136-145) Potassium Level 3.7 mmol/L (3.5-5.1) Chloride Level 97 mmol/L (98-107) Carbon Dioxide Level 34 mmol/L (21-32) Anion Gap 6 (6-14) Blood Urea Nitrogen 22 mg/dL (7-20) Creatinine 4.8 mg/dL (0.6-1.0) Estimated GFR (Cockcroft-Gault) 11.1 Glucose Level 107 mg/dL (70-99) Calcium Level 9.0 mg/dL (8.5-10.1) Medications Current Medications Fentanyl Citrate (Fentanyl 2ml Vial) 50 mcg PRN Q15MIN PRN IV PAIN GREATER THAN 3/10 Last administered on 02/14/19at 16:22; Start 02/14/19 at 14:30; Stop 02/15/19 at 14:29; Status DC Pantoprazole Sodium (PROTONIX VIAL for IV PUSH) 40 mg 1X ONCE IVP Last administered on 02/14/19at 14:56; Start 02/14/19 at 14:30; Stop 02/14/19 at 14:36; Status DC Ondansetron HCl (Zofran) 4 mg 1X ONCE IV Last administered on 02/14/19at 14:56; Start 02/14/19 at 14:30; Stop 02/14/19 at 14:36; Status DC Potassium Chloride (Klor-Con) 40 meq 1X ONCE PO Last administered on 02/14/19at 15:41; Start 02/14/19 at 15:30; Stop 02/14/19 at 15:31; Status DC Pantoprazole Sodium 80 mg/ Sodium Chloride 100 ml @ 10 mls/hr Q10H IV Last administered on 02/16/19at 05:41; Start 02/14/19 at 15:30; Stop 02/16/19 at 15:01; Status DC Ondansetron HCl (Zofran) 4 mg PRN Q8HRS PRN IV NAUSEA/VOMITING; Start 02/14/19 at 15:30; Stop 02/15/19 at 15:29; Status DC Fentanyl Citrate (Fentanyl 2ml Vial) 50 mcg PRN Q4HRS PRN IV PAIN Last administered on 02/18/19at 09:39; Start 02/14/19 at 15:30 Darbepoetin Bolivar (Aranesp) 60 mcg WEEKLYHS SQ Last administered on 02/16/19at 21:57; Start 02/16/19 at 21:00 Labetalol HCl (Normodyne Iv Push) 20 mg PRN Q4HRS PRN IVP HYPERTENSION, 2ND CHOICE; Start 02/16/19 at 12:15 Midazolam HCl (Versed) 2 mg PRN 1X PRN IV PRIOR TO PROCEDURE; Start 02/16/19 at 13:45; Stop 02/17/19 at 13:44; Status DC Fentanyl Citrate (Fentanyl 2ml Vial) 25 mcg PRN Q5MIN PRN IV X 2 DOSES FOR PAIN; Start 02/16/19 at 13:45; Stop 02/17/19 at 13:44; Status DC Fentanyl Citrate (Fentanyl 2ml Vial) 50 mcg PRN Q5MIN PRN IV X 2 DOSES FOR PAIN; Start 02/16/19 at 13:45; Stop 02/17/19 at 13:44; Status DC Sodium Chloride 1,000 ml @ 125 mls/hr Q8H IV Last administered on 02/16/19at 13:45; Start 02/16/19 at 13:45; Stop 02/17/19 at 01:44; Status DC Lidocaine HCl (Xylocaine-Mpf 1% 2ml Vial) 2 ml 1X PRN PRN ID IV START; Start 02/16/19 at 13:45; Stop 02/17/19 at 13:44; Status DC Propofol 20 ml @ As Directed STK-MED ONCE IV ; Start 02/16/19 at 14:28; Stop 02/16/19 at 14:29; Status DC Pantoprazole Sodium (Protonix) 40 mg DAILYAC PO Last administered on 02/18/19at 07:38; Start 02/17/19 at 07:30 Clonidine HCl (Catapres) 0.1 mg PRN Q1HR PRN PO HYPERTENSION, SEE COMMENTS Last administered on 02/16/19at 17:19; Start 02/16/19 at 17:00 Hydralazine HCl (Apresoline Inj) 10 mg PRN Q4HRS PRN IVP ELEVATED BP, 1ST CHOICE; Start 02/16/19 at 17:00 Hydralazine HCl (Apresoline Inj) 10 mg 1X ONCE IVP ; Start 02/16/19 at 17:00; Stop 02/16/19 at 17:13; Status DC Temazepam (Restoril) 7.5 mg PRN QHS PRN PO INSOMNIA Last administered on 02/17/19at 22:06; Start 02/16/19 at 22:30 Sodium Chloride 1,000 ml @ 1,000 mls/hr Q1H PRN IV hypotension; Start 02/17/19 at 07:44; Stop 02/17/19 at 13:43; Status DC Diphenhydramine HCl (Benadryl) 25 mg 1X PRN PRN IV ITCHING; Start 02/17/19 at 07:45; Stop 02/18/19 at 07:44; Status DC Diphenhydramine HCl (Benadryl) 25 mg 1X PRN PRN IV ITCHING; Start 02/17/19 at 07:45; Stop 02/18/19 at 07:44; Status DC Sodium Chloride 1,000 ml @ 400 mls/hr Q2H30M PRN IV PATENCY; Start 02/17/19 at 07:44; Stop 02/17/19 at 19:43; Status DC Info (PHARMACY MONITORING -- do not chart) 1 each PRN DAILY PRN EPIFANIO VELEZ; Start 02/17/19 at 07:45 Active Scripts Active Protonix (Pantoprazole Sodium) 20 Mg Tablet.dr 40 Tab PO DAILY Tramadol Hcl 50 Mg Tablet 50 Mg PO PRN Q6HRS PRN Vancomycin Hcl 500 Mg Vial 125 Mg PO [id number] 13 Days Culturelle (Lactobacillus Rhamnosus Gg) 1 Each Cap.sprink 1 Cap PO BID 14 Days Reported Nephro-Edward Tablet (Folic Acid/Vitamin B Comp W-C) 0.8 Mg Tablet 1 Tab PO DAILY Calcium Acetate 667 Mg Tablet 667 Mg PO TIDWMEALS Carvedilol 25 Mg Tablet 25 Mg PO BID Folic Acid 1 Mg Tablet 1 Mg PO DAILY Miralax (Polyethylene Glycol 3350) 17 Gm Powd.pack 1 Packet PO PRN DAILY PRN Amlodipine Besylate 10 Mg Tablet 10 Mg PO DAILY Vitals/I & O Vital Sign - Last 24 Hours 02/17/19 02/17/19 02/17/19 02/17/19 13:08 15:00 18:53 20:00 Temp 97.8 97.8 97.8 97.8 Pulse 87 94 Resp 20 18 18 B/P (MAP) 156/70 (98) 155/74 (101) Pulse Ox 94 94 95 O2 Delivery Room Air Room Air Room Air Room Air O2 Flow Rate 2.0 02/17/19 02/18/19 02/18/19 02/18/19 23:00 01:30 02:52 07:00 Temp 98.6 97.5 98.6 97.5 Pulse 91 88 88 Resp 18 20 18 18 B/P (MAP) 160/81 (107) 156/73 (100) 151/76 (101) Pulse Ox 91 91 91 92 O2 Delivery Room Air Room Air Room Air Room Air O2 Flow Rate 2.0 2.0 02/18/19 02/18/19 02/18/19 08:07 09:39 10:48 Temp 98.3 98.3 Pulse 85 Resp 18 18 18 B/P (MAP) 156/72 (100) Pulse Ox 91 91 93 O2 Delivery Room Air Room Air Room Air O2 Flow Rate 2.0 2.0 Intake and Output 02/17/19 02/17/19 02/18/19 15:00 23:00 07:00 Intake Total 240 ml 50 ml Balance 240 ml 50 ml VIKAS GAMEZ III DO Feb 18, 2019 12:07
--- NOTE | 2019-02-18 12:29 | PDOC ---
Renal-Progress Notes Subjective Notes Notes STABLE History of Present Illness Hx of present illness IMPROVED Vitals Vitals Vital Signs Date Time Temp Pulse Resp B/P (MAP) Pulse Ox O2 Delivery O2 Flow Rate FiO2 02/18/19 10:48 98.3 85 18 156/72 (100) 93 Room Air 98.3 02/18/19 09:39 2.0 Weight Weight [ ] I.O. Intake and Output Intake and Output 02/18/19 07:00 Intake Total 290 ml Balance 290 ml Intake Oral 290 ml Labs Labs Laboratory Tests Test 02/17/19 16:50 02/18/19 07:15 02/18/19 07:43 02/18/19 11:14 Glucose (Fingerstick) 82 mg/dL (70-99) 100 mg/dL (70-99) 151 mg/dL (70-99) White Blood Count 3.7 x10^3/uL (4.0-11.0) Red Blood Count 2.85 x10^6/uL (3.50-5.40) Hemoglobin 9.1 g/dL (12.0-15.5) Hematocrit 26.3 % (36.0-47.0) Mean Corpuscular Volume 93 fL (79-100) Mean Corpuscular Hemoglobin 32 pg (25-35) Mean Corpuscular Hemoglobin Concent 35 g/dL (31-37) Red Cell Distribution Width 20.1 % (11.5-14.5) Platelet Count 159 x10^3/uL (140-400) Neutrophils (%) (Auto) 63 % (31-73) Lymphocytes (%) (Auto) 20 % (24-48) Monocytes (%) (Auto) 14 % (0-9) Eosinophils (%) (Auto) 3 % (0-3) Basophils (%) (Auto) 1 % (0-3) Neutrophils # (Auto) 2.3 x10^3uL (1.8-7.7) Lymphocytes # (Auto) 0.7 x10^3/uL (1.0-4.8) Monocytes # (Auto) 0.5 x10^3/uL (0.0-1.1) Eosinophils # (Auto) 0.1 x10^3/uL (0.0-0.7) Basophils # (Auto) 0.0 x10^3/uL (0.0-0.2) Sodium Level 137 mmol/L (136-145) Potassium Level 3.7 mmol/L (3.5-5.1) Chloride Level 97 mmol/L (98-107) Carbon Dioxide Level 34 mmol/L (21-32) Anion Gap 6 (6-14) Blood Urea Nitrogen 22 mg/dL (7-20) Creatinine 4.8 mg/dL (0.6-1.0) Estimated GFR (Cockcroft-Gault) 11.1 Glucose Level 107 mg/dL (70-99) Calcium Level 9.0 mg/dL (8.5-10.1) Review of Systems Constitutional: yes: weakness, alert, oriented Ears/Nose/Throat: Yes: no symptom reported Eyes: Yes: no symptom reported Pulmonary: Yes no symptom reported Cardiovascular: Yes no symptom reported Gastrointestional: Yes: hematemesis Genitourinary: Yes: no symptom reported Musculoskeletal: Yes: muscle stiffness Skin: Yes no symptom reported Psychiatric/Neurological: Yes: no symptom reported Endocrine: Yes: no symptom reported Physical Exam General Appearance: no apparent distress Skin: warm Respiratory: decreased breath sounds Heart: S1S2 Abdomen: soft, bowel sounds present Genitourinary: bladder flat Extremities: pulses present Neurology: alert, oriented Assessment Assessment IMP ANEMIA DUE TO BLOOD LOSS- ANEMIA OF ESRD-HGB STABLE DM II HTN LIVER CIRRHOSIS HEP C HX OFETOH ABUSE ESRD on HD - TTS PLAN GI EVAL ARANESP HD TOMORROW LINNEA SHULTZ MD Feb 18, 2019 12:29
--- NOTE | 2019-02-18 14:36 | CARD ---
MR#: [id number] Date of Study: 02/18/2019 Ordering Physician: GASTON JACKSON, Referring Physician: MELY OLVERA, Tech: Sunshine Sears APPROVED REPORT EXAM: Two-dimensional and M-mode echocardiogram with Doppler and color Doppler. Other Information Quality : AverageHR: 87bpm INDICATION Elevated Troponin 2D DIMENSIONS RVDd3.2 (2.9-3.5cm)Left Atrium(2D)3.6 (1.6-4.0cm) IVSd1.4 (0.7-1.1cm)Aortic Root(2D)2.7 (2.0-3.7cm) LVDd4.8 (3.9-5.9cm)LVOT Diameter1.8 (1.8-2.4cm) PWd1.0 (0.7-1.1cm)LVDs3.1 (2.5-4.0cm) FS (%) 36.1 %SV70.0 ml LVEF(%)65.7 (>50%) Aortic Valve AoV Peak Jeff.181.4cm/sAoV VTI37.5cm AO Peak GR.13.2mmHgLVOT VTI 24.20cm AO Mean GR.8mmHg Mitral Valve MV E Nedatkdo083.9cm/sMV DECEL [id number] MV A Zqozbgom182.1cm/sE/A Ratio1.6 TDI Lateral E' P. V7.92cm/sMedial E' P. V9.20cm/s E/Lateral E'19.9E/Medial E'17.2 Tricuspid Valve TR P. Iigeshgx844qg/sRAP [id number] TR Peak Gr.22dsJtCRQB34spVu Pulmonary Vein S1 Tsnpgbje53.5cm/sS2 Jxnwfugx98.21cm/s D2 Ejghodtk81.2cm/sPVa [id number] LEFT VENTRICLE The left ventricle is normal size. There is mild to moderate concentric left ventricular hypertrophy. The left ventricular systolic function is normal. The Ejection Fraction is 60-65%. There is normal L V segmental wall motion. The left ventricular diastolic function and filling is normal for age. RIGHT VENTRICLE The right ventricle is normal size. There is normal right ventricular wall thickness. The right ventr icular systolic function is normal. ATRIA The left atrium size is normal. The right atrium is mildly dilated. The interatrial septum is intact with no evidence for an atrial septal defect or patent foramen ovale as noted on 2-D or Doppler imagi ng. AORTIC VALVE The aortic valve is calcified but opens well. Doppler and Color Flow revealed trace aortic regurgitat ion. There is no significant aortic valvular stenosis. MITRAL VALVE The mitral valve is moderately thickened. There is no evidence of mitral valve prolapse. There is no mitral valve stenosis. Doppler and Color-flow revealed trace mitral regurgitation. TRICUSPID VALVE The tricuspid valve is normal in structure and function. Doppler and Color Flow revealed trace tricus pid regurgitation with an estimated PAP of 52 mmHg. There is moderate pulmonary hypertension. There i s no tricuspid valve stenosis. PULMONIC VALVE The pulmonary valve is normal in structure and function. Doppler and Color Flow revealed no pulmonic valvular regurgitation. GREAT VESSELS The aortic root is normal in size. The IVC is normal in size and collapses >50% with inspiration. PERICARDIAL EFFUSION There is no evidence of significant pericardial effusion. Critical Notification Critical Value: No <Conclusion> The left ventricular systolic function is normal. The Ejection Fraction is 60-65%. There is normal LV segmental wall motion. Trace mitral regurgitation. Trace tricuspid regurgitation with an estimated PAP of 52 mmHg. There is no evidence of significant pericardial effusion. Signed by : Binu Castro, Electronically Approved : 02/18/2019 14:35:25
[2019-02-18 15:00] VITALS: BP 158/68
[2019-02-18 19:00] VITALS: BP 171/71
[2019-02-18] MEDS: NYSTATIN TOPICAL POWDER 15GM BOTTLE. TP SCH (20:38)
[2019-02-18] MEDS: TEMAZEPAM 7.5 MG CAPSULE PO PRN (20:38)
[2019-02-18 22:39] VITALS: BP 161/74
[2019-02-19 03:00] VITALS: BP 176/80
[2019-02-19 04:22] LABS: BASO % 1 % (0-3); EOS # 0.1 x10^3/uL (0.0-0.7); EOS % 3 % (0-3); HEMATOCRIT 26.1 % (36.0-47.0); HEMOGLOBIN 8.5 g/dL (12.0-15.5); LYMPH # 0.8 x10^3/uL (1.0-4.8); LYMPH % 20 % (24-48); MEAN CORPUSCULAR HEMOGLOBIN 30 pg (25-35); MEAN CORPUSCULAR HGB CONC 33 g/dL (31-37); MEAN CORPUSCULAR VOLUME 93 fL (79-100); MONO # 0.5 x10^3/uL (0.0-1.1); MONO % 12 % (0-9); NEUT # 2.7 x10^3uL (1.8-7.7); NEUT % 64 % (31-73); PLATELET COUNT 155 x10^3/uL (140-400); RED BLOOD COUNT 2.81 x10^6/uL (3.50-5.40); RED CELL DISTRIBUTION WIDTH 20.1 % (11.5-14.5); WHITE BLOOD COUNT 4.2 x10^3/uL (4.0-11.0)
[2019-02-19 04:35] LABS: CALCIUM 8.8 mg/dL (8.5-10.1); CREATININE 5.6 mg/dL (0.6-1.0); GFR 9.3; POTASSIUM 3.6 mmol/L (3.5-5.1)
[2019-02-19 07:00] VITALS: BP 164/74
[2019-02-19] MEDS ORDERED: IV NORMAL SALINE 1000ML BAG 1,000 ML IV PRN ×2 (07:00)
[2019-02-19] MEDS: PANTOPRAZOLE 40 MG TABLET.DR. PO SCH (07:30)
[2019-02-19] MEDS: NYSTATIN TOPICAL POWDER 15GM BOTTLE. TP SCH (08:00)
[2019-02-19] MEDS ORDERED: DIALYSIS PATIENT. MC PRN ×2 (09:15)
--- NOTE | 2019-02-19 09:33 | PDOC ---
PROGRESS NOTES Chief Complaint Chief Complaint Hematemesis History of Present Illness History of Present Illness The patient was seen in hemodialysis today. She is doing well. She denies any diarrhea or hematemesis currently. She has no complaints Vitals Vitals Vital Signs Date Time Temp Pulse Resp B/P (MAP) Pulse Ox O2 Delivery O2 Flow Rate FiO2 02/19/19 07:00 98.5 91 14 164/74 (104) 95 Room Air 98.5 02/18/19 10:09 2.0 Physical Exam General: Alert, Oriented X3, Cooperative, No acute distress Heart: Regular rate, Normal S1, Normal S2, No murmurs Lungs: Clear (No wheezes, rales, or rhonci) Abdomen: Soft, No tenderness, No masses Extremities: No edema, Normal pulses, No tenderness/swelling Skin: No rashes, No breakdown, No significant lesion Labs LABS Laboratory Tests Test 02/18/19 11:14 02/18/19 16:24 02/18/19 20:26 02/19/19 03:10 Glucose (Fingerstick) 151 mg/dL (70-99) 84 mg/dL (70-99) 110 mg/dL (70-99) White Blood Count 4.2 x10^3/uL (4.0-11.0) Red Blood Count 2.81 x10^6/uL (3.50-5.40) Hemoglobin 8.5 g/dL (12.0-15.5) Hematocrit 26.1 % (36.0-47.0) Mean Corpuscular Volume 93 fL (79-100) Mean Corpuscular Hemoglobin 30 pg (25-35) Mean Corpuscular Hemoglobin Concent 33 g/dL (31-37) Red Cell Distribution Width 20.1 % (11.5-14.5) Platelet Count 155 x10^3/uL (140-400) Neutrophils (%) (Auto) 64 % (31-73) Lymphocytes (%) (Auto) 20 % (24-48) Monocytes (%) (Auto) 12 % (0-9) Eosinophils (%) (Auto) 3 % (0-3) Basophils (%) (Auto) 1 % (0-3) Neutrophils # (Auto) 2.7 x10^3uL (1.8-7.7) Lymphocytes # (Auto) 0.8 x10^3/uL (1.0-4.8) Monocytes # (Auto) 0.5 x10^3/uL (0.0-1.1) Eosinophils # (Auto) 0.1 x10^3/uL (0.0-0.7) Basophils # (Auto) 0.0 x10^3/uL (0.0-0.2) Sodium Level 134 mmol/L (136-145) Potassium Level 3.6 mmol/L (3.5-5.1) Chloride Level 96 mmol/L (98-107) Carbon Dioxide Level 32 mmol/L (21-32) Anion Gap 6 (6-14) Blood Urea Nitrogen 26 mg/dL (7-20) Creatinine 5.6 mg/dL (0.6-1.0) Estimated GFR (Cockcroft-Gault) 9.3 Glucose Level 100 mg/dL (70-99) Calcium Level 8.8 mg/dL (8.5-10.1) Test 02/19/19 07:16 Glucose (Fingerstick) 99 mg/dL (70-99) Review of Systems Review of Systems Patient denies fevers, chills, N/V, CP, SOB, diarrhea. Assessment and Plan Assessmemt and Plan Problems Medical Problems: (1) Abdominal pain Status: Acute (2) Anemia Status: Acute (3) Elevated troponin Status: Acute Assessment: Acute blood loss anemia ESRD on HD Saturday, , Saturday H/o GERD and PUD Cirrhosis - h/o heavy alcohol use and Hep C (genotype 1a) H/o C Diff H/o Rupal Hauser tear - S/p EGD (Dr. Faulkner) 04/2016 (for melena/anemia): Grade 1 esophagitis, alcoholic gastritis. Chronic anemia - Hgb usually in 8-9 range. HTN HLD RA DM Hyperparathyroidism Plan: PPI Hemodialysis Tuesdays, , and Saturdays EGD showed 8-10mm stomach ulcer with no recent bleeding 02/16, gastrin level 130 C diff results canceled- patient is no longer having diarrhea Trend Hgb (5.2 -> 6.4 -> 8.6 -> 9.2 -> 8.8 -> 9.1 -> 8.5 4 units of prbc given) on darbepoetin Echo- EF 60-65% Nephrology consult GI consult Soft diet PT/OT F/u labs Continue home meds DVT prophylaxis DC today if ok with subspecialists Comment Review of Relevant I have reviewed the following items tamika (where applicable) has been applied. Labs Laboratory Tests Test 02/17/19 16:50 02/18/19 07:15 02/18/19 07:43 02/18/19 11:14 Glucose (Fingerstick) 82 mg/dL (70-99) 100 mg/dL (70-99) 151 mg/dL (70-99) White Blood Count 3.7 x10^3/uL (4.0-11.0) Red Blood Count 2.85 x10^6/uL (3.50-5.40) Hemoglobin 9.1 g/dL (12.0-15.5) Hematocrit 26.3 % (36.0-47.0) Mean Corpuscular Volume 93 fL (79-100) Mean Corpuscular Hemoglobin 32 pg (25-35) Mean Corpuscular Hemoglobin Concent 35 g/dL (31-37) Red Cell Distribution Width 20.1 % (11.5-14.5) Platelet Count 159 x10^3/uL (140-400) Neutrophils (%) (Auto) 63 % (31-73) Lymphocytes (%) (Auto) 20 % (24-48) Monocytes (%) (Auto) 14 % (0-9) Eosinophils (%) (Auto) 3 % (0-3) Basophils (%) (Auto) 1 % (0-3) Neutrophils # (Auto) 2.3 x10^3uL (1.8-7.7) Lymphocytes # (Auto) 0.7 x10^3/uL (1.0-4.8) Monocytes # (Auto) 0.5 x10^3/uL (0.0-1.1) Eosinophils # (Auto) 0.1 x10^3/uL (0.0-0.7) Basophils # (Auto) 0.0 x10^3/uL (0.0-0.2) Sodium Level 137 mmol/L (136-145) Potassium Level 3.7 mmol/L (3.5-5.1) Chloride Level 97 mmol/L (98-107) Carbon Dioxide Level 34 mmol/L (21-32) Anion Gap 6 (6-14) Blood Urea Nitrogen 22 mg/dL (7-20) Creatinine 4.8 mg/dL (0.6-1.0) Estimated GFR (Cockcroft-Gault) 11.1 Glucose Level 107 mg/dL (70-99) Calcium Level 9.0 mg/dL (8.5-10.1) Test 02/18/19 16:24 02/18/19 20:26 02/19/19 03:10 02/19/19 07:16 Glucose (Fingerstick) 84 mg/dL (70-99) 110 mg/dL (70-99) 99 mg/dL (70-99) White Blood Count 4.2 x10^3/uL (4.0-11.0) Red Blood Count 2.81 x10^6/uL (3.50-5.40) Hemoglobin 8.5 g/dL (12.0-15.5) Hematocrit 26.1 % (36.0-47.0) Mean Corpuscular Volume 93 fL (79-100) Mean Corpuscular Hemoglobin 30 pg (25-35) Mean Corpuscular Hemoglobin Concent 33 g/dL (31-37) Red Cell Distribution Width 20.1 % (11.5-14.5) Platelet Count 155 x10^3/uL (140-400) Neutrophils (%) (Auto) 64 % (31-73) Lymphocytes (%) (Auto) 20 % (24-48) Monocytes (%) (Auto) 12 % (0-9) Eosinophils (%) (Auto) 3 % (0-3) Basophils (%) (Auto) 1 % (0-3) Neutrophils # (Auto) 2.7 x10^3uL (1.8-7.7) Lymphocytes # (Auto) 0.8 x10^3/uL (1.0-4.8) Monocytes # (Auto) 0.5 x10^3/uL (0.0-1.1) Eosinophils # (Auto) 0.1 x10^3/uL (0.0-0.7) Basophils # (Auto) 0.0 x10^3/uL (0.0-0.2) Sodium Level 134 mmol/L (136-145) Potassium Level 3.6 mmol/L (3.5-5.1) Chloride Level 96 mmol/L (98-107) Carbon Dioxide Level 32 mmol/L (21-32) Anion Gap 6 (6-14) Blood Urea Nitrogen 26 mg/dL (7-20) Creatinine 5.6 mg/dL (0.6-1.0) Estimated GFR (Cockcroft-Gault) 9.3 Glucose Level 100 mg/dL (70-99) Calcium Level 8.8 mg/dL (8.5-10.1) Laboratory Tests Test 02/18/19 11:14 02/18/19 16:24 02/18/19 20:26 02/19/19 03:10 Glucose (Fingerstick) 151 mg/dL (70-99) 84 mg/dL (70-99) 110 mg/dL (70-99) White Blood Count 4.2 x10^3/uL (4.0-11.0) Red Blood Count 2.81 x10^6/uL (3.50-5.40) Hemoglobin 8.5 g/dL (12.0-15.5) Hematocrit 26.1 % (36.0-47.0) Mean Corpuscular Volume 93 fL (79-100) Mean Corpuscular Hemoglobin 30 pg (25-35) Mean Corpuscular Hemoglobin Concent 33 g/dL (31-37) Red Cell Distribution Width 20.1 % (11.5-14.5) Platelet Count 155 x10^3/uL (140-400) Neutrophils (%) (Auto) 64 % (31-73) Lymphocytes (%) (Auto) 20 % (24-48) Monocytes (%) (Auto) 12 % (0-9) Eosinophils (%) (Auto) 3 % (0-3) Basophils (%) (Auto) 1 % (0-3) Neutrophils # (Auto) 2.7 x10^3uL (1.8-7.7) Lymphocytes # (Auto) 0.8 x10^3/uL (1.0-4.8) Monocytes # (Auto) 0.5 x10^3/uL (0.0-1.1) Eosinophils # (Auto) 0.1 x10^3/uL (0.0-0.7) Basophils # (Auto) 0.0 x10^3/uL (0.0-0.2) Sodium Level 134 mmol/L (136-145) Potassium Level 3.6 mmol/L (3.5-5.1) Chloride Level 96 mmol/L (98-107) Carbon Dioxide Level 32 mmol/L (21-32) Anion Gap 6 (6-14) Blood Urea Nitrogen 26 mg/dL (7-20) Creatinine 5.6 mg/dL (0.6-1.0) Estimated GFR (Cockcroft-Gault) 9.3 Glucose Level 100 mg/dL (70-99) Calcium Level 8.8 mg/dL (8.5-10.1) Test 02/19/19 07:16 Glucose (Fingerstick) 99 mg/dL (70-99) Medications Current Medications Fentanyl Citrate (Fentanyl 2ml Vial) 50 mcg PRN Q15MIN PRN IV PAIN GREATER THAN 3/10 Last administered on 02/14/19at 16:22; Start 02/14/19 at 14:30; Stop 02/15/19 at 14:29; Status DC Pantoprazole Sodium (PROTONIX VIAL for IV PUSH) 40 mg 1X ONCE IVP Last administered on 02/14/19at 14:56; Start 02/14/19 at 14:30; Stop 02/14/19 at 14:36; Status DC Ondansetron HCl (Zofran) 4 mg 1X ONCE IV Last administered on 02/14/19at 14:56; Start 02/14/19 at 14:30; Stop 02/14/19 at 14:36; Status DC Potassium Chloride (Klor-Con) 40 meq 1X ONCE PO Last administered on 02/14/19at 15:41; Start 02/14/19 at 15:30; Stop 02/14/19 at 15:31; Status DC Pantoprazole Sodium 80 mg/ Sodium Chloride 100 ml @ 10 mls/hr Q10H IV Last administered on 02/16/19at 05:41; Start 02/14/19 at 15:30; Stop 02/16/19 at 15:01; Status DC Ondansetron HCl (Zofran) 4 mg PRN Q8HRS PRN IV NAUSEA/VOMITING; Start 02/14/19 at 15:30; Stop 02/15/19 at 15:29; Status DC Fentanyl Citrate (Fentanyl 2ml Vial) 50 mcg PRN Q4HRS PRN IV PAIN Last administered on 02/18/19at 09:39; Start 02/14/19 at 15:30 Darbepoetin Bolivar (Aranesp) 60 mcg WEEKLYHS SQ Last administered on 02/16/19at 21:57; Start 02/16/19 at 21:00 Labetalol HCl (Normodyne Iv Push) 20 mg PRN Q4HRS PRN IVP HYPERTENSION, 2ND CHOICE; Start 02/16/19 at 12:15 Midazolam HCl (Versed) 2 mg PRN 1X PRN IV PRIOR TO PROCEDURE; Start 02/16/19 at 13:45; Stop 02/17/19 at 13:44; Status DC Fentanyl Citrate (Fentanyl 2ml Vial) 25 mcg PRN Q5MIN PRN IV X 2 DOSES FOR PAIN; Start 02/16/19 at 13:45; Stop 02/17/19 at 13:44; Status DC Fentanyl Citrate (Fentanyl 2ml Vial) 50 mcg PRN Q5MIN PRN IV X 2 DOSES FOR PAIN; Start 02/16/19 at 13:45; Stop 02/17/19 at 13:44; Status DC Sodium Chloride 1,000 ml @ 125 mls/hr Q8H IV Last administered on 02/16/19at 13:45; Start 02/16/19 at 13:45; Stop 02/17/19 at 01:44; Status DC Lidocaine HCl (Xylocaine-Mpf 1% 2ml Vial) 2 ml 1X PRN PRN ID IV START; Start 02/16/19 at 13:45; Stop 02/17/19 at 13:44; Status DC Propofol 20 ml @ As Directed STK-MED ONCE IV ; Start 02/16/19 at 14:28; Stop 02/16/19 at 14:29; Status DC Pantoprazole Sodium (Protonix) 40 mg DAILYAC PO Last administered on 02/18/19at 07:38; Start 02/17/19 at 07:30 Clonidine HCl (Catapres) 0.1 mg PRN Q1HR PRN PO HYPERTENSION, SEE COMMENTS Last administered on 02/16/19at 17:19; Start 02/16/19 at 17:00 Hydralazine HCl (Apresoline Inj) 10 mg PRN Q4HRS PRN IVP ELEVATED BP, 1ST CHOICE; Start 02/16/19 at 17:00 Hydralazine HCl (Apresoline Inj) 10 mg 1X ONCE IVP ; Start 02/16/19 at 17:00; Stop 02/16/19 at 17:13; Status DC Temazepam (Restoril) 7.5 mg PRN QHS PRN PO INSOMNIA Last administered on 02/18/19at 20:38; Start 02/16/19 at 22:30 Sodium Chloride 1,000 ml @ 1,000 mls/hr Q1H PRN IV hypotension; Start 02/17/19 at 07:44; Stop 02/17/19 at 13:43; Status DC Diphenhydramine HCl (Benadryl) 25 mg 1X PRN PRN IV ITCHING; Start 02/17/19 at 07:45; Stop 02/18/19 at 07:44; Status DC Diphenhydramine HCl (Benadryl) 25 mg 1X PRN PRN IV ITCHING; Start 02/17/19 at 07:45; Stop 02/18/19 at 07:44; Status DC Sodium Chloride 1,000 ml @ 400 mls/hr Q2H30M PRN IV PATENCY; Start 02/17/19 at 07:44; Stop 02/17/19 at 19:43; Status DC Info (PHARMACY MONITORING -- do not chart) 1 each PRN DAILY PRN MC SEE COMMENTS; Start 02/17/19 at 07:45 Nystatin (Nystop) 1 leonila BID TP Last administered on 02/18/19at 20:38; Start 02/18/19 at 21:00 Sodium Chloride 1,000 ml @ 1,000 mls/hr Q1H PRN IV hypotension; Start 02/19/19 at 07:00; Stop 02/19/19 at 12:59 Sodium Chloride 1,000 ml @ 400 mls/hr Q2H30M PRN IV PATENCY; Start 02/19/19 at 07:00; Stop 02/19/19 at 18:59 Info (PHARMACY MONITORING -- do not chart) 1 each PRN DAILY PRN MC SEE COMMENTS; Start 02/19/19 at 09:15; Status UNV Info (PHARMACY MONITORING -- do not chart) 1 each PRN DAILY PRN MC SEE COMMENTS; Start 02/19/19 at 09:15 Active Scripts Active Protonix (Pantoprazole Sodium) 20 Mg Tablet.dr 40 Tab PO DAILY Tramadol Hcl 50 Mg Tablet 50 Mg PO PRN Q6HRS PRN Vancomycin Hcl 500 Mg Vial 125 Mg PO [id number] 13 Days Culturelle (Lactobacillus Rhamnosus Gg) 1 Each Cap.sprink 1 Cap PO BID 14 Days Reported Nephro-Edward Tablet (Folic Acid/Vitamin B Comp W-C) 0.8 Mg Tablet 1 Tab PO DAILY Calcium Acetate 667 Mg Tablet 667 Mg PO TIDWMEALS Carvedilol 25 Mg Tablet 25 Mg PO BID Folic Acid 1 Mg Tablet 1 Mg PO DAILY Miralax (Polyethylene Glycol 3350) 17 Gm Powd.pack 1 Packet PO PRN DAILY PRN Amlodipine Besylate 10 Mg Tablet 10 Mg PO DAILY Vitals/I & O Vital Sign - Last 24 Hours 02/18/19 02/18/19 02/18/19 02/18/19 09:39 10:09 10:48 15:00 Temp 98.3 98.4 98.3 98.4 Pulse 85 92 Resp 18 18 18 18 B/P (MAP) 156/72 (100) 158/68 (98) Pulse Ox 91 93 93 96 O2 Delivery Room Air Room Air Room Air Room Air O2 Flow Rate 2.0 2.0 02/18/19 02/18/19 02/18/19 02/19/19 19:00 20:01 22:39 03:00 Temp 98.4 98.7 98.6 98.4 98.7 98.6 Pulse 92 92 94 Resp 18 18 18 B/P (MAP) 171/71 (104) 161/74 (103) 176/80 (112) Pulse Ox 94 91 94 O2 Delivery Room Air Room Air Room Air Room Air 02/19/19 07:00 Temp 98.5 98.5 Pulse 91 Resp 14 B/P (MAP) 164/74 (104) Pulse Ox 95 O2 Delivery Room Air Intake and Output 02/18/19 02/18/19 02/19/19 15:00 23:00 07:00 Intake Total 600 ml 640 ml 0 ml Balance 600 ml 640 ml 0 ml VIKAS GAMEZ III DO Feb 19, 2019 09:33
--- NOTE | 2019-02-19 10:41 | PDOC3 ---
[facility]-Discharge Summary Date of Admission: Date of Admission: Feb 14, 2019 Date of Discharge: Date of Discharge: Feb 19, 2019 Admission Diagnosis: Admitting Diagnosis: Hematemesis Problems: (1) Upper GI bleed (2) Back pain (3) Ureteral colic (4) Kidney stone (5) Essential hypertension (6) Hematuria (7) Fluid volume excess (8) Dyspnea (9) Edema (10) Dialysis AV fistula malfunction (11) ESRD (end stage renal disease) on dialysis (12) Cholelithiasis (13) Symptomatic cholelithiasis (14) Obesity (BMI 30.0-34.9) (15) End stage renal disease (16) Volume overload (17) C. difficile colitis (18) GI bleed (19) GI bleed Discharge Diagnosis: Discharge Diagnosis: Solving peptic ulcer disease (patient had a 1 cm peptic ulcer on EGD) Consults: Consults: GI Nephrology Procedures: Procedures: EGD and dialysis Hospital Course: Hospital Course: Mrs. Fernandez is an elderly -Turkmen female who is on dialysis she was admitted with hematemesis We consult GI and nephrology She was taken for EGD which did show a 1 cm recurrent peptic ulcer We also did dialysis We checked a gastrin level which was a little high at 130 This morning I saw her and examined her heart tones were normal her lungs were clear she was on dialysis and doing well I discussed case with the nurse overall she seems to be at her baseline with pain to discharge if okay with GI Disposition: Disposition/Orders: D/C to Home Activity: Activity: Resume previous activity Diet: Diet: Renal Medications: Home Meds Active Scripts Pantoprazole Sodium (PROTONIX) 20 Mg Tablet.dr, 40 TAB PO DAILY for PUD, #30 TAB Prov:ELSY UNDERWOOD MD 11/06/18 Tramadol Hcl (TRAMADOL HCL) 50 Mg Tablet, 50 MG PO PRN Q6HRS PRN for MILD TO MODERATE PAIN, #10 TAB Prov:ALEX CASTRO MD 10/02/18 Vancomycin Hcl (VANCOMYCIN HCL) 500 Mg Vial, 125 MG PO [id number] for cdiff for 13 Days, EACH Prov:ALEX CASTRO MD 10/02/18 Lactobacillus Rhamnosus Gg (CULTURELLE) 1 Each Cap.sprink, 1 CAP PO BID for 14 Days, #28 CAP Prov:NORA KNIGHT MD 03/06/18 Reported Medications Folic Acid/Vitamin B Comp W-C (NEPHRO-NAKUL TABLET) 0.8 Mg Tablet, 1 TAB PO DAILY for VITAMIN 11/03/18 Calcium Acetate (CALCIUM ACETATE) 667 Mg Tablet, 667 MG PO TIDWMEALS for PHOSPHORUS BINDER 11/03/18 Carvedilol (CARVEDILOL) 25 Mg Tablet, 25 MG PO BID for HYPERTENSION 11/03/18 Folic Acid (FOLIC ACID) 1 Mg Tablet, 1 MG PO DAILY for VITAMIN 11/03/18 Polyethylene Glycol 3350 (MIRALAX) 17 Gm Powd.pack, 1 PACKET PO PRN DAILY PRN for CONSTIPATION, #30 PACKET 3 Refills 05/30/18 Amlodipine Besylate (AMLODIPINE BESYLATE) 10 Mg Tablet, 10 MG PO DAILY for htn, TAB 09/28/16 Scheduled Amlodipine Besylate (Amlodipine Besylate), 10 MG PO DAILY, (Reported) Calcium Acetate (Calcium Acetate), 667 MG PO TIDWMEALS, (Reported) Carvedilol (Carvedilol), 25 MG PO BID, (Reported) Folic Acid (Folic Acid), 1 MG PO DAILY, (Reported) Folic Acid/Vitamin B Comp W-C (Nephro-Nakul Tablet), 1 TAB PO DAILY, (Reported) Lactobacillus Rhamnosus Gg (Culturelle), 1 CAP PO BID Pantoprazole Sodium (Protonix), 40 TAB PO DAILY Vancomycin Hcl (Vancomycin Hcl), 125 MG PO [id number] Scheduled PRN Polyethylene Glycol 3350 (Miralax), 1 PACKET PO PRN DAILY PRN for CONSTIPATION, (Reported) Tramadol Hcl (Tramadol Hcl), 50 MG PO PRN Q6HRS PRN for MILD TO MODERATE PAIN Total Time: Total Time: 36 minutes VIKAS GAMEZ III DO Feb 19, 2019 10:41
[2019-02-19 11:00] VITALS: BP 137/69
--- NOTE | 2019-02-19 11:52 | PDOC ---
Renal-Progress Notes Subjective Notes Notes FEELING BETTER History of Present Illness Hx of present illness BETTER, HGB STABLE AND IMPROVING Vitals Vitals Vital Signs Date Time Temp Pulse Resp B/P (MAP) Pulse Ox O2 Delivery O2 Flow Rate FiO2 02/19/19 08:00 Room Air 2.0 02/19/19 07:00 98.5 91 14 164/74 (104) 95 98.5 Weight Weight [ ] I.O. Intake and Output Intake and Output 02/19/19 07:00 Intake Total 1240 ml Balance 1240 ml Intake Oral 1240 ml Labs Labs Laboratory Tests Test 02/18/19 16:24 02/18/19 20:26 02/19/19 03:10 02/19/19 07:16 Glucose (Fingerstick) 84 mg/dL (70-99) 110 mg/dL (70-99) 99 mg/dL (70-99) White Blood Count 4.2 x10^3/uL (4.0-11.0) Red Blood Count 2.81 x10^6/uL (3.50-5.40) Hemoglobin 8.5 g/dL (12.0-15.5) Hematocrit 26.1 % (36.0-47.0) Mean Corpuscular Volume 93 fL (79-100) Mean Corpuscular Hemoglobin 30 pg (25-35) Mean Corpuscular Hemoglobin Concent 33 g/dL (31-37) Red Cell Distribution Width 20.1 % (11.5-14.5) Platelet Count 155 x10^3/uL (140-400) Neutrophils (%) (Auto) 64 % (31-73) Lymphocytes (%) (Auto) 20 % (24-48) Monocytes (%) (Auto) 12 % (0-9) Eosinophils (%) (Auto) 3 % (0-3) Basophils (%) (Auto) 1 % (0-3) Neutrophils # (Auto) 2.7 x10^3uL (1.8-7.7) Lymphocytes # (Auto) 0.8 x10^3/uL (1.0-4.8) Monocytes # (Auto) 0.5 x10^3/uL (0.0-1.1) Eosinophils # (Auto) 0.1 x10^3/uL (0.0-0.7) Basophils # (Auto) 0.0 x10^3/uL (0.0-0.2) Sodium Level 134 mmol/L (136-145) Potassium Level 3.6 mmol/L (3.5-5.1) Chloride Level 96 mmol/L (98-107) Carbon Dioxide Level 32 mmol/L (21-32) Anion Gap 6 (6-14) Blood Urea Nitrogen 26 mg/dL (7-20) Creatinine 5.6 mg/dL (0.6-1.0) Estimated GFR (Cockcroft-Gault) 9.3 Glucose Level 100 mg/dL (70-99) Calcium Level 8.8 mg/dL (8.5-10.1) Review of Systems Constitutional: yes: weakness, alert, oriented Ears/Nose/Throat: Yes: no symptom reported Eyes: Yes: no symptom reported Pulmonary: Yes no symptom reported Cardiovascular: Yes no symptom reported Gastrointestional: Yes: hematemesis Genitourinary: Yes: no symptom reported Musculoskeletal: Yes: muscle stiffness Skin: Yes no symptom reported Psychiatric/Neurological: Yes: no symptom reported Endocrine: Yes: no symptom reported Physical Exam General Appearance: no apparent distress Skin: warm Respiratory: decreased breath sounds Heart: S1S2 Abdomen: soft, bowel sounds present Genitourinary: bladder flat Extremities: pulses present Neurology: alert, oriented Assessment Assessment IMP ANEMIA DUE TO BLOOD LOSS- ANEMIA OF ESRD-HGB STABLE DM II HTN LIVER CIRRHOSIS HEP C HX OFETOH ABUSE ESRD on HD - TTS PLAN GI EVAL ARANESP HD TODAY UF TO DW LINNEA SHULTZ MD Feb 19, 2019 11:52
--- NOTE | 2019-02-19 11:56 | PDOC ---
Subjective: Subjective: Wants something to help her sleep. Had a little abd discomfort this morning that resolved. Going home today. Objective: Vital Signs: Vital Signs Date Time Temp Pulse Resp B/P (MAP) Pulse Ox O2 Delivery O2 Flow Rate FiO2 02/19/19 08:00 Room Air 2.0 02/19/19 07:00 98.5 91 14 164/74 (104) 95 98.5 Labs: Laboratory Tests Test 02/18/19 16:24 02/18/19 20:26 02/19/19 03:10 02/19/19 07:16 Glucose (Fingerstick) 84 mg/dL 110 mg/dL 99 mg/dL White Blood Count 4.2 x10^3/uL Red Blood Count 2.81 x10^6/uL Hemoglobin 8.5 g/dL Hematocrit 26.1 % Mean Corpuscular Volume 93 fL Mean Corpuscular Hemoglobin 30 pg Mean Corpuscular Hemoglobin Concent 33 g/dL Red Cell Distribution Width 20.1 % Platelet Count 155 x10^3/uL Neutrophils (%) (Auto) 64 % Lymphocytes (%) (Auto) 20 % Monocytes (%) (Auto) 12 % Eosinophils (%) (Auto) 3 % Basophils (%) (Auto) 1 % Neutrophils # (Auto) 2.7 x10^3uL Lymphocytes # (Auto) 0.8 x10^3/uL Monocytes # (Auto) 0.5 x10^3/uL Eosinophils # (Auto) 0.1 x10^3/uL Basophils # (Auto) 0.0 x10^3/uL Sodium Level 134 mmol/L Potassium Level 3.6 mmol/L Chloride Level 96 mmol/L Carbon Dioxide Level 32 mmol/L Anion Gap 6 Blood Urea Nitrogen 26 mg/dL Creatinine 5.6 mg/dL Estimated GFR (Cockcroft-Gault) 9.3 Glucose Level 100 mg/dL Calcium Level 8.8 mg/dL Test 02/19/19 11:34 Glucose (Fingerstick) 90 mg/dL Imaging: Echocardiogram <Conclusion> The left ventricular systolic function is normal. The Ejection Fraction is 60-65%. There is normal LV segmental wall motion. Trace mitral regurgitation. Trace tricuspid regurgitation with an estimated PAP of 52 mmHg. There is no evidence of significant pericardial effusion. PE: GEN: NAD - finished dialysis LUNGS: CTAB HEART: RRR ABD: NABS, S/ND/NT NEURO/PSYCH: A & O 3 A/P: GERD, persistent on EGD 02/16 - barely abnormal gastrin, ?PPI non-compliance -- Note discharge plans. Counseled re: use of PPI and left Rx w/ RN. IRIS SZYMANSKI Feb 19, 2019 11:56
--- NOTE | 2019-02-19 14:49 | NUR ---
Patient is dressed, IV discontinued without complications, ready to discharge, and is waiting on her ride. Called and spoke with the daughter Isabella [phone] who will be coming to pick her up shortly.
[2019-02-19 15:00] VITALS: BP 154/63
--- NOTE | 2019-02-19 15:20 | NUR ---
Patient was discharged in stable condition and escorted via wheelchair out of the facility for transport by private vehicle, accompanied by family.
== END 2019-02-19 15:20 | disposition home or self-care (01) | DRG 377 ==
LOC: ER 14:15 → 1 WEST ICU 15:42 → 5 NORTH 02-16 16:39
PROVIDERS: ADMIT Internal Medicine; ATTEND Internal Medicine
PROC: 30233N1 Transfusion of Nonautologous Red Blood Cells into Peripheral Vein, Percutaneous Approach (ICD-10-PCS; 2019-02-14)
PROC: 0DJ08ZZ Inspection of Upper Intestinal Tract, Via Natural or Artificial Opening Endoscopic (ICD-10-PCS; principal; 2019-02-16 15:00)
PROC: 5A1D70Z Performance of Urinary Filtration, Intermittent, Less than 6 Hours Per Day (ICD-10-PCS; 2019-02-17)
PROC: 5A1D70Z Performance of Urinary Filtration, Intermittent, Less than 6 Hours Per Day (ICD-10-PCS; 2019-02-19)
DX: K25.4 Chronic or unspecified gastric ulcer with hemorrhage (principal); N18.6 End stage renal disease; D62 Acute posthemorrhagic anemia; N25.81 Secondary hyperparathyroidism of renal origin; I12.0 Hypertensive chronic kidney disease with stage 5 chronic kidney disease or end stage renal disease; E11.22 Type 2 diabetes mellitus with diabetic chronic kidney disease; E11.21 Type 2 diabetes mellitus with diabetic nephropathy; E78.00 Pure hypercholesterolemia, unspecified; E78.5 Hyperlipidemia, unspecified; M06.9 Rheumatoid arthritis, unspecified; F10.10 Alcohol abuse, uncomplicated; E03.9 Hypothyroidism, unspecified; D63.1 Anemia in chronic kidney disease; B19.20 Unspecified viral hepatitis C without hepatic coma; Z90.49 Acquired absence of other specified parts of digestive tract; Z99.2 Dependence on renal dialysis; Z88.6 Allergy status to analgesic agent; Z90.710 Acquired absence of both cervix and uterus; Z82.49 Family history of ischemic heart disease and other diseases of the circulatory system; Z87.19 Personal history of other diseases of the digestive system; Z87.11 Personal history of peptic ulcer disease; Z91.19 Patient's noncompliance with other medical treatment and regimen; K70.30 Alcoholic cirrhosis of liver without ascites; K21.0 Gastro-esophageal reflux disease with esophagitis
CPT/HCPCS: 36415; 36430; 43235; 74176; 80048; 80053; 82941; 82962; 83690; 83735; 83880; 84484; 85018; 85025; 85027; 85610; 85730; 86850; 86900; 86901; 86920; 87641; 93005; 93306; 96374; 96375; 96376; C9113; J0881; J2405; J2704; J3010; J7030; P9016; 99285-25

== ENCOUNTER 2019-02-25 10:27 | Inpatient (IN) | payer OTHER ==
[~2019-02-25] VITALS: Ht 157.5 cm; Wt 84.9 kg
[2019-02-25] MEDS ORDERED: LIDO:MAALOX 1:1 20 ML SINGLE DOSE. PO STA (11:06)
[2019-02-25] MEDS ORDERED: fentaNYL PF VIAL 100 MCG/2 ML VIAL IV ONE (11:15)
[2019-02-25] MEDS ORDERED: ONDANSETRON PF 4 MG/2 ML VIAL. IV ONE (11:15)
[2019-02-25] MEDS ORDERED: DICYCLOMINE HCL 10 MG CAPSULE PO STA (11:16)
[2019-02-25 11:20] LABS: BASO % 1 % (0-3); EOS % 0 % (0-3); HEMATOCRIT 31.2 % (36.0-47.0); HEMOGLOBIN 10.2 g/dL (12.0-15.5); LYMPH # 0.5 x10^3/uL (1.0-4.8); LYMPH % 9 % (24-48); MEAN CORPUSCULAR HEMOGLOBIN 30 pg (25-35); MEAN CORPUSCULAR HGB CONC 33 g/dL (31-37); MEAN CORPUSCULAR VOLUME 93 fL (79-100); MONO # 0.3 x10^3/uL (0.0-1.1); MONO % 6 % (0-9); NEUT # 4.9 x10^3uL (1.8-7.7); NEUT % 85 % (31-73); PLATELET COUNT 200 x10^3/uL (140-400); RED BLOOD COUNT 3.37 x10^6/uL (3.50-5.40); WHITE BLOOD COUNT 5.8 x10^3/uL (4.0-11.0)
[2019-02-25 11:31] LABS: CREATININE 7.6 mg/dL (0.6-1.0); GFR 6.5; POTASSIUM 5.7 mmol/L (3.5-5.1)
[2019-02-25 11:42] LABS: ALBUMIN/GLOBULIN RATIO 0.5 (1.0-1.7); TOTAL BILIRUBIN 1.1 mg/dL (0.2-1.0); TOTAL PROTEIN 8.6 g/dL (6.4-8.2)
[2019-02-25] MEDS ORDERED: MORPHINE SULFATE 4 MG/ML VIAL. IV ONE (12:15)
--- NOTE | 2019-02-25 12:17 | RAD ---
CT study of the abdomen and pelvis without contrast Clinical indications: Acute abdominal pain and distention. At technique: Noncontrast helical CT scanning of the abdomen and pelvis performed. Without contrast, the sensitivity to detect organ pathology and GI tract pathology is decreased. PQRS compliance Statement One or more of the following individualized dose reduction techniques were utilized for this study: 1. Automated exposure control 2. Adjustment of the mA and/or kV according to patient size 3. Use of iterative reconstruction technique FINDINGS: The liver contour is corrugated which may be seen with cirrhosis. Recanalization of the umbilical vein this is seen. No hepatic mass is seen on this noncontrast study. The spleen measures 11.2 cm in length. The pancreas is homogeneous in appearance on this noncontrast study. There is peripancreatic edema which is new. The gallbladder is surgically absent. No extrahepatic biliary ductal dilatation is seen. No adrenal mass is evident. Small nonobstructing punctate stone of the lower pole right kidney is seen. No hydronephrosis or hydroureter is seen. Urinary bladder is not abnormally distended. Chronic perinephric inflammatory stranding is seen. No focal aneurysmal dilatation of the abdominal aorta is seen. No enlarged abdominal or pelvic lymphadenopathy is evident. There is a small amount of ascites present. This has developed since the previous study. There is wall thickening of the body of the stomach. However the stomach is not distended with air. No obstructive bowel pattern is evident. The colon is not distended. The appendix appears normal. Terminal ileum is unremarkable. No free air is seen. Small left-sided pleural effusion is seen. Associated left lung base atelectasis is seen. Cardiomegaly is evident. No lytic process is seen. IMPRESSION: New finding of peripancreatic inflammation and ascites. This may be seen with pancreatitis. 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 Wall thickening of the stomach and colon but the stomach and colon are not distended with air. Therefore, this may be secondary to gastritis or colitis or could be due to inadequate distention. No obstructive bowel pattern is evident. No free air is seen. Small left-sided pleural effusion and cardiomegaly. Electronically signed by: Bernardo Boswell MD (02/25/2019 12:14 PM) [id number]
[2019-02-25 12:43] LABS: BILIRUBIN,URINE NEGATIVE (NEG); CLARITY,URINE CLEAR; COLOR,URINE YELLOW; NITRITE,URINE NEGATIVE (NEG); PROTEIN,URINE 30 mg/dL (NEG-TRACE); UROBILINOGEN,URINE 0.2 mg/dL (0.2 mg/dL)
--- NOTE | 2019-02-25 12:47 | PDOC1 ---
History and Physical Date of Admission: Date of Admission DATE: 02/25/19 TIME: 12:42 Chief Complaint: Problems: (1) Anemia (2) Elevated troponin (3) Abdominal pain (4) ESRD (end stage renal disease) on dialysis (5) Cholelithiasis (6) Fluid volume excess (7) End stage renal disease (8) Kidney stone (9) Ureteral colic (10) Hematuria (11) Essential hypertension (12) Back pain (13) Dyspnea (14) Edema (15) GI bleed (16) GI bleed (17) Upper GI bleed (18) ESRD (end stage renal disease) on dialysis (19) Volume overload (20) C. difficile colitis (21) Symptomatic cholelithiasis (22) Obesity (BMI 30.0-34.9) (23) Dialysis AV fistula malfunction Chief Complain: Abdominal pain History of Present Illness: HPI: Mrs. Fernandez is a pleasant middle-aged -[place] female who presented to the ER with abdominal pain. She was on dialysis today and only got about mcc through and just really couldn't finish it When she presented to the ER which check some labs her potassium is high at 5.7 and she also has pancreatitis rates her symptoms as 10 out of 10 I discussed the case with the ER physician recommended patient consult GI and nephrology should be noted that she describes her pain as agonizing and food makes it worse. Past Medical/Surgical History: PMH/PSH: Hypertension hyperlipidemia ESRD GERD C. 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 Allergies: Allergies: Coded Allergies: I S O L A T I O N *CONTACT* (Verified Allergy, Unknown, 11/04/18) chronic C.diff acetaminophen (Verified Adverse Reaction, Intermediate, Nausea and Vomiting, 02/16/19) Family History: Family History: Hypertension Social History: Social Hisoty: She drinks at least a pint of gin every day she is a social smoker no drugs Current Medications: Current Medications Current Medications Ondansetron HCl (Zofran) 4 mg 1X ONCE IV Last administered on 02/25/19at 11:18; Start 02/25/19 at 11:15; Stop 02/25/19 at 11:16; Status DC Fentanyl Citrate (Fentanyl 2ml Vial) 50 mcg 1X ONCE IV Last administered on 02/25/19at 11:18; Start 02/25/19 at 11:15; Stop 02/25/19 at 11:16; Status DC Multi-Ingredient Mouthwash/Gargle (Gi Cocktail) 20 ml 1X STAT PO Last administered on 02/25/19at 11:18; Start 02/25/19 at 11:06; Stop 02/25/19 at 11:11; Status DC Dicyclomine HCl (Bentyl) 10 mg 1X STAT PO Last administered on 02/25/19at 12:19; Start 02/25/19 at 11:16; Stop 02/25/19 at 11:17; Status DC Morphine Sulfate (Morphine Sulfate) 4 mg 1X ONCE IV Last administered on 02/25/19at 12:20; Start 02/25/19 at 12:15; Stop 02/25/19 at 12:16; Status DC Active Scripts Active Protonix (Pantoprazole Sodium) 20 Mg Tablet.dr 40 Tab PO DAILY Tramadol Hcl 50 Mg Tablet 50 Mg PO PRN Q6HRS PRN Vancomycin Hcl 500 Mg Vial 125 Mg PO [id number] 13 Days Culturelle (Lactobacillus Rhamnosus Gg) 1 Each Cap.sprink 1 Cap PO BID 14 Days Reported Nephro-Edward Tablet (Folic Acid/Vitamin B Comp W-C) 0.8 Mg Tablet 1 Tab PO DAILY Calcium Acetate 667 Mg Tablet 667 Mg PO TIDWMEALS Carvedilol 25 Mg Tablet 25 Mg PO BID Folic Acid 1 Mg Tablet 1 Mg PO DAILY Miralax (Polyethylene Glycol 3350) 17 Gm Powd.pack 1 Packet PO PRN DAILY PRN Amlodipine Besylate 10 Mg Tablet 10 Mg PO DAILY ROS: Review of Systems Review of System REVIEW OF SYSTEMS: GENERAL: Denies weakness SKIN: No bruising, hair changes or rashes. EYES: No blurred, double or loss of vision. NOSE AND THROAT: No history of nosebleeds, hoarseness or sore throat. HEART: No history of palpitations, chest pain or shortness of breath on exertion. LUNGS: Denies cough, hemoptysis, wheezing or shortness of breath. GASTROINTESTINAL: Denies changes in appetite, nausea, vomiting, diarrhea or constipation. GENITOURINARY: No history of frequency, urgency, hesitancy or nocturia. NEUROLOGIC: Denies history of numbness, tingling, tremor or weakness. PSYCHIATRIC: No history of panic, anxiety or depression. ENDOCRINE: No history of heat or cold intolerance, polyuria or polydipsia. EXTREMITIES: Denies muscle weakness, joint pain, pain on walking or stiffness. Physical Exam: Vital Signs: Vital Signs Date Time Temp Pulse Resp B/P (MAP) Pulse Ox O2 Delivery O2 Flow Rate FiO2 02/25/19 10:35 98.3 99 20 197/87 (123) 99 Room Air 98.3 Physcial Exam: GEN.: No apparent distress. Alert and oriented. HEENT: Head is normocephalic, atraumatic NECK: Supple, no JVD LUNGS: Clear to auscultation without rhonchi or wheezing HEART: RRR, S1, S2 present. Peripheral pulses intact ABDOMEN: Soft, tender. Positive bowel sounds no organomegaly obese EXTREMITIES: Without any cyanosis, clubbing, or edema. Pedal pulses intact NEUROLOGIC: Normal speech, normal tone. A&O x 3 PSYCHIATRIC: Normal affect, normal mood. Stable SKIN: No ulcerations or rashes Labs: Labs: Laboratory Tests Test 02/25/19 10:50 White Blood Count 5.8 x10^3/uL (4.0-11.0) Red Blood Count 3.37 x10^6/uL (3.50-5.40) Hemoglobin 10.2 g/dL (12.0-15.5) Hematocrit 31.2 % (36.0-47.0) Mean Corpuscular Volume 93 fL (79-100) Mean Corpuscular Hemoglobin 30 pg (25-35) Mean Corpuscular Hemoglobin Concent 33 g/dL (31-37) Red Cell Distribution Width 20.0 % (11.5-14.5) Platelet Count 200 x10^3/uL (140-400) Neutrophils (%) (Auto) 85 % (31-73) Lymphocytes (%) (Auto) 9 % (24-48) Monocytes (%) (Auto) 6 % (0-9) Eosinophils (%) (Auto) 0 % (0-3) Basophils (%) (Auto) 1 % (0-3) Neutrophils # (Auto) 4.9 x10^3uL (1.8-7.7) Lymphocytes # (Auto) 0.5 x10^3/uL (1.0-4.8) Monocytes # (Auto) 0.3 x10^3/uL (0.0-1.1) Eosinophils # (Auto) 0.0 x10^3/uL (0.0-0.7) Basophils # (Auto) 0.0 x10^3/uL (0.0-0.2) Sodium Level 130 mmol/L (136-145) Potassium Level 5.7 mmol/L (3.5-5.1) Chloride Level 92 mmol/L (98-107) Carbon Dioxide Level 25 mmol/L (21-32) Anion Gap 13 (6-14) Blood Urea Nitrogen 35 mg/dL (7-20) Creatinine 7.6 mg/dL (0.6-1.0) Estimated GFR (Cockcroft-Gault) 6.5 BUN/Creatinine Ratio 5 (6-20) Glucose Level 117 mg/dL (70-99) Calcium Level 10.0 mg/dL (8.5-10.1) Total Bilirubin 1.1 mg/dL (0.2-1.0) Aspartate Amino Transf (AST/SGOT) 70 U/L (15-37) Alanine Aminotransferase (ALT/SGPT) 19 U/L (14-59) Alkaline Phosphatase 216 U/L (46-116) Troponin I Quantitative 0.019 ng/mL (0.000-0.055) Total Protein 8.6 g/dL (6.4-8.2) Albumin 3.0 g/dL (3.4-5.0) Albumin/Globulin Ratio 0.5 (1.0-1.7) Lipase 182 U/L (73-393) Laboratory Tests Test 02/25/19 10:50 White Blood Count 5.8 x10^3/uL (4.0-11.0) Red Blood Count 3.37 x10^6/uL (3.50-5.40) Hemoglobin 10.2 g/dL (12.0-15.5) Hematocrit 31.2 % (36.0-47.0) Mean Corpuscular Volume 93 fL (79-100) Mean Corpuscular Hemoglobin 30 pg (25-35) Mean Corpuscular Hemoglobin Concent 33 g/dL (31-37) Red Cell Distribution Width 20.0 % (11.5-14.5) Platelet Count 200 x10^3/uL (140-400) Neutrophils (%) (Auto) 85 % (31-73) Lymphocytes (%) (Auto) 9 % (24-48) Monocytes (%) (Auto) 6 % (0-9) Eosinophils (%) (Auto) 0 % (0-3) Basophils (%) (Auto) 1 % (0-3) Neutrophils # (Auto) 4.9 x10^3uL (1.8-7.7) Lymphocytes # (Auto) 0.5 x10^3/uL (1.0-4.8) Monocytes # (Auto) 0.3 x10^3/uL (0.0-1.1) Eosinophils # (Auto) 0.0 x10^3/uL (0.0-0.7) Basophils # (Auto) 0.0 x10^3/uL (0.0-0.2) Sodium Level 130 mmol/L (136-145) Potassium Level 5.7 mmol/L (3.5-5.1) Chloride Level 92 mmol/L (98-107) Carbon Dioxide Level 25 mmol/L (21-32) Anion Gap 13 (6-14) Blood Urea Nitrogen 35 mg/dL (7-20) Creatinine 7.6 mg/dL (0.6-1.0) Estimated GFR (Cockcroft-Gault) 6.5 BUN/Creatinine Ratio 5 (6-20) Glucose Level 117 mg/dL (70-99) Calcium Level 10.0 mg/dL (8.5-10.1) Total Bilirubin 1.1 mg/dL (0.2-1.0) Aspartate Amino Transf (AST/SGOT) 70 U/L (15-37) Alanine Aminotransferase (ALT/SGPT) 19 U/L (14-59) Alkaline Phosphatase 216 U/L (46-116) Troponin I Quantitative 0.019 ng/mL (0.000-0.055) Total Protein 8.6 g/dL (6.4-8.2) Albumin 3.0 g/dL (3.4-5.0) Albumin/Globulin Ratio 0.5 (1.0-1.7) Lipase 182 U/L (73-393) Assessment/Plan Assessment/Plan Hyperkalemia and pancreatitis secondary to alcohol abuse and LH female who has multiple comorbidities including end-stage renal disease on dialysis Plan Patient is being admitted to the medical floor with a air sampling and monitoring consult nephrology consult GI hemodialysis Saturday home meds frequent labs DVT prophylaxis full code long-term prognosis guarded VIKAS GAMEZ III DO February 25, 2019 12:47
[2019-02-25 12:55] LABS: BACTERIA,URINE FEW /HPF (0-FEW)
--- NOTE | 2019-02-25 12:56 | PDOC1 ---
History and Physical Date of Admission: Date of Admission DATE: 02/25/19 TIME: 12:50 Chief Complaint: Problems: (1) Cholelithiasis (2) Fluid volume excess (3) End stage renal disease (4) Kidney stone (5) Ureteral colic (6) Hematuria (7) Essential hypertension (8) Anemia (9) Back pain (10) Dyspnea (11) Edema (12) Abdominal pain (13) GI bleed (14) GI bleed (15) Upper GI bleed (16) Elevated troponin (17) ESRD (end stage renal disease) on dialysis (18) ESRD (end stage renal disease) on dialysis (19) Volume overload (20) C. difficile colitis (21) Symptomatic cholelithiasis (22) Obesity (BMI 30.0-34.9) (23) Dialysis AV fistula malfunction Chief Complain: Shortness of breath History of Present Illness: HPI: Mrs. 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 Her daughter states she put bleach on everything She presented to the ER with shortness of breath was given several rounds of breathing treatments but that didn't seem to work She is now been intubated We placed her on propofol at that dropped her pressure from 150-80 With now stopped that Her switching to Versed I discussed the case with ER physician and the family Patient is being admitted to the ICU on the vent with consultation to pulmonary medicine Past Medical/Surgical History: PMH/PSH: COPD multiple intubations stomach surgery Allergies: Allergies: Coded Allergies: I S O L A T I O N *CONTACT* (Verified Allergy, Unknown, 11/04/18) chronic C.diff acetaminophen (Verified Adverse Reaction, Intermediate, Nausea and Vomiting, 02/16/19) Family History: Family History: Diabetes Social History: Social Hisoty: She never smoked was exposed to a lot of chemicals including a lot of bleach her family thinks is what caused her COPD she does not drink or take drugs she has a significant other and he is here They have been together for greater than 40 years Current Medications: Current Medications Current Medications Ondansetron HCl (Zofran) 4 mg 1X ONCE IV Last administered on 02/25/19at 11:18; Start 02/25/19 at 11:15; Stop 02/25/19 at 11:16; Status DC Fentanyl Citrate (Fentanyl 2ml Vial) 50 mcg 1X ONCE IV Last administered on 02/25/19at 11:18; Start 02/25/19 at 11:15; Stop 02/25/19 at 11:16; Status DC Multi-Ingredient Mouthwash/Gargle (Gi Cocktail) 20 ml 1X STAT PO Last administered on 02/25/19at 11:18; Start 02/25/19 at 11:06; Stop 02/25/19 at 11:11; Status DC Dicyclomine HCl (Bentyl) 10 mg 1X STAT PO Last administered on 02/25/19at 12:19; Start 02/25/19 at 11:16; Stop 02/25/19 at 11:17; Status DC Morphine Sulfate (Morphine Sulfate) 4 mg 1X ONCE IV Last administered on 9at 12:20; Start 02/25/19 at 12:15; Stop 02/25/19 at 12:16; Status DC Active Scripts Active Protonix (Pantoprazole Sodium) 20 Mg Tablet.dr 40 Tab PO DAILY Tramadol Hcl 50 Mg Tablet 50 Mg PO PRN Q6HRS PRN Vancomycin Hcl 500 Mg Vial 125 Mg PO [id number] 13 Days Culturelle (Lactobacillus Rhamnosus Gg) 1 Each Cap.sprink 1 Cap PO BID 14 Days Reported Nephro-Edward Tablet (Folic Acid/Vitamin B Comp W-C) 0.8 Mg Tablet 1 Tab PO DAILY Calcium Acetate 667 Mg Tablet 667 Mg PO TIDWMEALS Carvedilol 25 Mg Tablet 25 Mg PO BID Folic Acid 1 Mg Tablet 1 Mg PO DAILY Miralax (Polyethylene Glycol 3350) 17 Gm Powd.pack 1 Packet PO PRN DAILY PRN Amlodipine Besylate 10 Mg Tablet 10 Mg PO DAILY ROS: Review of Systems Unable to obtain the patient is on the ventilator Physical Exam: Vital Signs: Vital Signs Date Time Temp Pulse Resp B/P (MAP) Pulse Ox O2 Delivery O2 Flow Rate FiO2 02/25/19 10:35 98.3 99 20 197/87 (123) 99 Room Air 98.3 Physcial Exam: GEN.: She is intubated HEENT: Head is normocephalic, atraumatic NECK: Supple, no JVD LUNGS: Diffuse wheezing HEART: RRR, S1, S2 present. Peripheral pulses intact ABDOMEN: Soft, nontender. Positive bowel sounds no organomegaly EXTREMITIES: Without any cyanosis, clubbing, or edema. Pedal pulses intact NEUROLOGIC: Sedated PSYCHIATRIC: Unable to assess SKIN: No ulcerations or rashes Labs: Labs: Laboratory Tests Test 02/25/19 10:50 White Blood Count 5.8 x10^3/uL (4.0-11.0) Red Blood Count 3.37 x10^6/uL (3.50-5.40) Hemoglobin 10.2 g/dL (12.0-15.5) Hematocrit 31.2 % (36.0-47.0) Mean Corpuscular Volume 93 fL (79-100) Mean Corpuscular Hemoglobin 30 pg (25-35) Mean Corpuscular Hemoglobin Concent 33 g/dL (31-37) Red Cell Distribution Width 20.0 % (11.5-14.5) Platelet Count 200 x10^3/uL (140-400) Neutrophils (%) (Auto) 85 % (31-73) Lymphocytes (%) (Auto) 9 % (24-48) Monocytes (%) (Auto) 6 % (0-9) Eosinophils (%) (Auto) 0 % (0-3) Basophils (%) (Auto) 1 % (0-3) Neutrophils # (Auto) 4.9 x10^3uL (1.8-7.7) Lymphocytes # (Auto) 0.5 x10^3/uL (1.0-4.8) Monocytes # (Auto) 0.3 x10^3/uL (0.0-1.1) Eosinophils # (Auto) 0.0 x10^3/uL (0.0-0.7) Basophils # (Auto) 0.0 x10^3/uL (0.0-0.2) Sodium Level 130 mmol/L (136-145) Potassium Level 5.7 mmol/L (3.5-5.1) Chloride Level 92 mmol/L (98-107) Carbon Dioxide Level 25 mmol/L (21-32) Anion Gap 13 (6-14) Blood Urea Nitrogen 35 mg/dL (7-20) Creatinine 7.6 mg/dL (0.6-1.0) Estimated GFR (Cockcroft-Gault) 6.5 BUN/Creatinine Ratio 5 (6-20) Glucose Level 117 mg/dL (70-99) Calcium Level 10.0 mg/dL (8.5-10.1) Total Bilirubin 1.1 mg/dL (0.2-1.0) Aspartate Amino Transf (AST/SGOT) 70 U/L (15-37) Alanine Aminotransferase (ALT/SGPT) 19 U/L (14-59) Alkaline Phosphatase 216 U/L (46-116) Troponin I Quantitative 0.019 ng/mL (0.000-0.055) Total Protein 8.6 g/dL (6.4-8.2) Albumin 3.0 g/dL (3.4-5.0) Albumin/Globulin Ratio 0.5 (1.0-1.7) Lipase 182 U/L (73-393) Laboratory Tests Test 02/25/19 10:50 White Blood Count 5.8 x10^3/uL (4.0-11.0) Red Blood Count 3.37 x10^6/uL (3.50-5.40) Hemoglobin 10.2 g/dL (12.0-15.5) Hematocrit 31.2 % (36.0-47.0) Mean Corpuscular Volume 93 fL (79-100) Mean Corpuscular Hemoglobin 30 pg (25-35) Mean Corpuscular Hemoglobin Concent 33 g/dL (31-37) Red Cell Distribution Width 20.0 % (11.5-14.5) Platelet Count 200 x10^3/uL (140-400) Neutrophils (%) (Auto) 85 % (31-73) Lymphocytes (%) (Auto) 9 % (24-48) Monocytes (%) (Auto) 6 % (0-9) Eosinophils (%) (Auto) 0 % (0-3) Basophils (%) (Auto) 1 % (0-3) Neutrophils # (Auto) 4.9 x10^3uL (1.8-7.7) Lymphocytes # (Auto) 0.5 x10^3/uL (1.0-4.8) Monocytes # (Auto) 0.3 x10^3/uL (0.0-1.1) Eosinophils # (Auto) 0.0 x10^3/uL (0.0-0.7) Basophils # (Auto) 0.0 x10^3/uL (0.0-0.2) Sodium Level 130 mmol/L (136-145) Potassium Level 5.7 mmol/L (3.5-5.1) Chloride Level 92 mmol/L (98-107) Carbon Dioxide Level 25 mmol/L (21-32) Anion Gap 13 (6-14) Blood Urea Nitrogen 35 mg/dL (7-20) Creatinine 7.6 mg/dL (0.6-1.0) Estimated GFR (Cockcroft-Gault) 6.5 BUN/Creatinine Ratio 5 (6-20) Glucose Level 117 mg/dL (70-99) Calcium Level 10.0 mg/dL (8.5-10.1) Total Bilirubin 1.1 mg/dL (0.2-1.0) Aspartate Amino Transf (AST/SGOT) 70 U/L (15-37) Alanine Aminotransferase (ALT/SGPT) 19 U/L (14-59) Alkaline Phosphatase 216 U/L (46-116) Troponin I Quantitative 0.019 ng/mL (0.000-0.055) Total Protein 8.6 g/dL (6.4-8.2) Albumin 3.0 g/dL (3.4-5.0) Albumin/Globulin Ratio 0.5 (1.0-1.7) Lipase 182 U/L (73-393) Images: Images Chest x-ray shows COPD Assessment/Plan Assessment/Plan Respiratory failure secondary to COPD Plan ICU admission Consult pulmonary IV steroids Duo nebs IV fluids Empiric IV antibiotics if pulmonary agrees Home meds Frequent labs Vent weaning This is a critically ill patient I discussed the case with the patient's significant other and daughter Total time 32 minutes VIKAS GAMEZ III, DO February 25, 2019 12:56
[2019-02-25] MEDS: MORPHINE SULFATE 4 MG/ML VIAL. IV PRN ×2 (13:29→15:40)
--- NOTE | 2019-02-25 14:23 | EKG ---
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
--- NOTE | 2019-02-25 14:26 | PDOC2 ---
GI CONSULT Reason For Consult: Pancreatitis HPI: HPI: 63 y/o female known to GI. Missed dialysis yesterday due to transportation issues, then developed diarrhea (can't really elaborate - currently on bedpan in ER, uncomfortable), nausea, and abd pain. We've seen her several times in the past for similar issues (n/v and abd pain after missing dialysis). H/o GERD - still not taking PPI - "they said one of my pills cost $103." Denies dysphagia, vomiting, hematochezia, melena, and constipation. EGD 04/2016 (for melena/anemia): Grade 1 esophagitis, small MW tear w/o me aningful bleeding, alcoholic gastritis. EGD 10/2018 (for hematemesis/melena): desquamating changes 25-35cm due to emesis, friability and erosions at 35cm/GEJ c/w with Grade B reflux esophagitis, no varices or MW tear, no gastric varices, no hiatal hernia, diffuse nodularity throughout stomach, 1 cm ulcer posterior wall mid-antrum with hematin staining - no clot, visible vessel, or active bleeding (and negative for H. pylori), non- specific erythema in duodenal bulb. EGD 02/16/19 (for hematemesis/melena): partly healed esophagitis distally, no varices, 8-10mm ulcer posterior wall prepyloric area similar to October - no signs of recent bleeding and no varices, patchy erythema in duodenal bulb, second portion normal. Gastrin level very minimally elevated - suspected non- compliance w/ PPI. I wrote her a prescription for pantoprazole 40mg QD w/ refills. Last colonoscopy reportedly normal <10 years ago @ . H/o cirrhosis - heavy alcohol use (says was drinking 1/2 pint of gin daily until last admission) and Hep C (genotype 1a - possibly failed treatment in the past). H/o C Diff. S/p cholecystectomy 02/2018 (Dr. Rowe). PMH: PMH: HTN, HLD, ESRD on HD, GERD, C Diff, cirrhosis, RA, DM, hyperparathyroidism partial hysterectomy (lap assisted/vaginal), cholecystectomy FH: Family History: No pertinent hx, DM Social History: Smoke: No ALCOHOL: heavy Drugs: None ROS: GEN: Denies fevers, chills, sweats HEENT: Denies blurred vision, sore throat CV: Denies chest pain RESP: Denies shortness of air, cough GI: Per HPI : Denies hematuria, dysuria ENDO: Denies weight changes NEURO: Denies confusion, dizziness MSK: Denies weakness, joint pain/swelling SKIN: Denies jaundice, pruritus Vitals: Vitals: Vital Signs Date Time Temp Pulse Resp B/P (MAP) Pulse Ox O2 Delivery O2 Flow Rate FiO2 02/25/19 10:35 98.3 99 20 197/87 (123) 99 Room Air 98.3 Labs: Labs: Laboratory Tests Test 02/25/19 10:50 02/25/19 12:20 White Blood Count 5.8 x10^3/uL (4.0-11.0) Red Blood Count 3.37 x10^6/uL (3.50-5.40) Hemoglobin 10.2 g/dL (12.0-15.5) Hematocrit 31.2 % (36.0-47.0) Mean Corpuscular Volume 93 fL (79-100) Mean Corpuscular Hemoglobin 30 pg (25-35) Mean Corpuscular Hemoglobin Concent 33 g/dL (31-37) Red Cell Distribution Width 20.0 % (11.5-14.5) Platelet Count 200 x10^3/uL (140-400) Neutrophils (%) (Auto) 85 % (31-73) Lymphocytes (%) (Auto) 9 % (24-48) Monocytes (%) (Auto) 6 % (0-9) Eosinophils (%) (Auto) 0 % (0-3) Basophils (%) (Auto) 1 % (0-3) Neutrophils # (Auto) 4.9 x10^3uL (1.8-7.7) Lymphocytes # (Auto) 0.5 x10^3/uL (1.0-4.8) Monocytes # (Auto) 0.3 x10^3/uL (0.0-1.1) Eosinophils # (Auto) 0.0 x10^3/uL (0.0-0.7) Basophils # (Auto) 0.0 x10^3/uL (0.0-0.2) Sodium Level 130 mmol/L (136-145) Potassium Level 5.7 mmol/L (3.5-5.1) Chloride Level 92 mmol/L (98-107) Carbon Dioxide Level 25 mmol/L (21-32) Anion Gap 13 (6-14) Blood Urea Nitrogen 35 mg/dL (7-20) Creatinine 7.6 mg/dL (0.6-1.0) Estimated GFR (Cockcroft-Gault) 6.5 BUN/Creatinine Ratio 5 (6-20) Glucose Level 117 mg/dL (70-99) Calcium Level 10.0 mg/dL (8.5-10.1) Total Bilirubin 1.1 mg/dL (0.2-1.0) Aspartate Amino Transf (AST/SGOT) 70 U/L (15-37) Alanine Aminotransferase (ALT/SGPT) 19 U/L (14-59) Alkaline Phosphatase 216 U/L (46-116) Troponin I Quantitative 0.019 ng/mL (0.000-0.055) Total Protein 8.6 g/dL (6.4-8.2) Albumin 3.0 g/dL (3.4-5.0) Albumin/Globulin Ratio 0.5 (1.0-1.7) Lipase 182 U/L (73-393) Urine Collection Type U cath Urine Color Yellow Urine Clarity Clear Urine pH 8.0 Urine Specific [place] 1.010 Urine Protein 30 mg/dL (NEG-TRACE) Urine Glucose (UA) Negative mg/dL (NEG) Urine Ketones (Stick) Negative mg/dL (NEG) Urine Blood Small (NEG) Urine Nitrite Negative (NEG) Urine Bilirubin Negative (NEG) Urine Urobilinogen Dipstick 0.2 mg/dL (0.2 mg/dL) Urine Leukocyte Esterase Moderate (NEG) Urine RBC 1-2 /HPF (0-2) Urine WBC 11-20 /HPF (0-4) Urine Bacteria Few /HPF (0-FEW) Allergies: Coded Allergies: I S O L A T I O N *CONTACT* (Verified Allergy, Unknown, 11/04/18) chronic C.diff acetaminophen (Verified Adverse Reaction, Intermediate, Nausea and Vomiting, 02/16/19) Medications: Current Medications Medications (Trade) Dose Ordered Sig/Kimberly Route PRN Reason Start Time Stop Time Status Last Admin Dose Admin Ondansetron HCl (Zofran) 4 mg 1X ONCE IV 02/25/19 11:15 02/25/19 11:16 DC 02/25/19 11:18 Fentanyl Citrate (Fentanyl 2ml Vial) 50 mcg 1X ONCE IV 02/25/19 11:15 02/25/19 11:16 DC 02/25/19 11:18 Multi-Ingredient Mouthwash/Gargle (Gi Cocktail) 20 ml 1X STAT PO 02/25/19 11:06 02/25/19 11:11 DC 02/25/19 11:18 Dicyclomine HCl (Bentyl) 10 mg 1X STAT PO 02/25/19 11:16 02/25/19 11:17 DC 02/25/19 12:19 Morphine Sulfate (Morphine Sulfate) 4 mg 1X ONCE IV 02/25/19 12:15 02/25/19 12:16 DC 02/25/19 12:20 Morphine Sulfate (Morphine Sulfate) 4 mg PRN Q2HR PRN IV PAIN 02/25/19 13:30 02/26/19 13:29 02/25/19 13:29 Imaging: Imaging: CT A/P w/o contrast 02/25/19 FINDINGS: The liver contour is corrugated which may be seen with cirrhosis. Recanalization of the umbilical vein this is seen. No hepatic mass is seen on this noncontrast study. The spleen measures 11.2 cm in length. The pancreas is homogeneous in appearance on this noncontrast study. There is peripancreatic edema which is new. The gallbladder is surgically absen t. No extrahepatic biliary ductal dilatation is seen. No adrenal mass is evident. Small nonobstructing punctate stone of the lower pole right kidney is seen. No hydronephrosis or hydroureter is seen. Urinary bladder is not abnormally distended. Chronic perinephric inflammatory stranding is seen. No focal aneurysmal dilatation of the abdominal aorta is seen. No enlarged abdominal or pelvic lymphadenopathy is evident. There is a small amount of ascites present. This has developed since the previous study. There is wall thickening of the body of the stomach. However the stomach is not distended with air. No obstructive bowel pattern is evident. The colon is not distended. The appendix appears normal. Terminal ileum is unremarkable. No free air is seen. Small left-sided pleural effusion is seen. Associated left lung base atelectasis is seen. Cardiomegaly is evident. No lytic process is seen. IMPRESSION: New finding of peripancreatic inflammation and ascites. This may be seen with pancreatitis. 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 Wall thickening of the stomach and colon but the stomach and colon are not distended with air. Therefore, this may be secondary to gastritis or colitis or could be due to inadequate distention. No obstructive bowel pattern is evident. No free air is seen. Small left-sided pleural effusion and cardiomegaly. PE: GEN: uncomfortable on bedpan in ER HEENT: Atraumatic, PERRL LUNGS: CTAB HEART: RRR ABD: distended, quiet, soft, tender epigastrium to LUQ, some periumbilical EXTREMITY: BLE edema SKIN: No rashes, no jaundice NEURO/PSYCH: A & O 3 A/P: A/P: Recurrent nausea, abd pain, diarrhea Abnormal CT - peripancreatic inflammation, ascites, wall thickening of the stomach and colon (reports says non distension vs gastritis/colitis) Chronic anemia - Hgb 10.5 compared to 8.5 when discharged last week HTN, ESRD on HD - missed dialysis yesterday GERD, - non-compliant w/ PPI, EGD last week Cirrhosis - alcohol (says last drink prior to last admission), Hep C CRC screen - reportedly UTD (<10 years ago @ [facility]) H/o C Diff S/p cholecystectomy -- Nausea and abd pain likely multi-factorial - non-compliance w/ dialysis, PPI, recent heavy alcohol use, etc. NPO for now, resume PPI (though in short supply so will give IV H2 beth). Can check C Diff if having diarrhea. ?dialysis today SEGUNDO-IRIS COOK February 25, 2019 14:26
[2019-02-25] MEDS: HYDROmorphone 2 MG/ML VIAL IV PRN (16:07)
--- NOTE | 2019-02-25 17:51 | PHYS DOC ---
Past Medical History Past Medical History: Diabetes-Type II, High Cholesterol, Heart Disease, Hypertension, Renal Failure Additional Past Medical Histor: DIARRHEA Past Surgical History: Cholecystectomy Additional Past Surgical Histo: RT KNEE, SHUNT RIGHT CHEST, dialysis graft Additional Information: past smoker Alcohol Use: Occasionally Drug Use: None Adult General Chief Complaint Chief Complaint: ABDOMINAL PAIN HPI HPI Patient is a 63-year-old female who presents to the ER with abdominal pain since 7 PM last night. Patient describes the pain as an achy pain and puts on a severity of 10 out of 10. She reports associated symptoms of nausea and diarrhea symptoms started at the same time. Has a history of ulcers and is also a dialysis patient. Patient did not go to dialysis yesterday when she normally gets it. She's also had her gallbladder taken out. Patient states that she was in the hospital here last week. Review of Systems Review of Systems Constitutional: Denies fever or chills [] Eyes: Denies change in visual acuity, redness, or eye pain [] HENT: Denies nasal congestion or sore throat [] Respiratory: Denies cough or shortness of breath [] Cardiovascular: Denies Chest pain or syncope. GI: Reports abdominal pain, nausea, and diarrhea [] : Denies dysuria or hematuria [] Musculoskeletal: Reports low back pain denies joint pain [] Integument: Denies rash or skin lesions [] Neurologic: Denies headache, focal weakness or sensory changes [] Endocrine: Denies polyuria or polydipsia [] Complete systems were reviewed and found to be within normal limits, except as documented in this note. Current Medications Current Medications Current Medications Medications (Trade) Dose Ordered Sig/Kimberly Start Time Stop Time Status Last Admin Dose Admin Dicyclomine HCl (Bentyl) 10 mg 1X STAT 02/25/19 11:16 02/25/19 11:17 DC 02/25/19 12:19 10 MG Fentanyl Citrate (Fentanyl 2ml Vial) 50 mcg 1X ONCE 02/25/19 11:15 02/25/19 11:16 DC 02/25/19 11:18 50 MCG Morphine Sulfate (Morphine Sulfate) 4 mg 1X ONCE 02/25/19 12:15 02/25/19 12:16 DC 02/25/19 12:20 4 MG Multi-Ingredient Mouthwash/Gargle (Gi Cocktail) 20 ml 1X STAT 02/25/19 11:06 02/25/19 11:11 DC 02/25/19 11:18 20 ML Ondansetron HCl (Zofran) 4 mg 1X ONCE 02/25/19 11:15 02/25/19 11:16 DC 02/25/19 11:18 4 MG Allergies Allergies Allergies Coded Allergies Type Severity Reaction Last Updated Verified I S O L A T I O N *CONTACT* Allergy Unknown 11/04/18 Yes acetaminophen Adverse Reaction Intermediate Nausea and Vomiting 02/16/19 Yes Physical Exam Physical Exam Constitutional: Well developed, well nourished, no acute distress, non-toxic appearance. [] HENT: Normocephalic, atraumatic, oropharynx dry, no oral exudates, nose normal. [] Eyes: PERRLA, EOMI, conjunctiva jaundiced, no discharge. [] Neck: Normal range of motion, no tenderness, supple, no stridor. [] Cardiovascular:Heart rate regular rhythm, no murmur [] Lungs & Thorax: Bilateral breath sounds clear to auscultation [] Abdomen: Bowel sounds hypoactive, distended, tenderness to the RUQ, no masses, no pulsatile masses. [] Skin: Warm, dry, no erythema, no rash. [] Back: Low back tenderness, no CVA tenderness. [] Extremities: No tenderness, no cyanosis, no clubbing, ROM intact, no edema. [] Neurologic: Alert and oriented X 3, normal motor function, normal sensory function, no focal deficits noted. [] Psychologic: Affect normal, judgement normal, mood normal. [] Current Patient Data Vital Signs Vital Signs Date Time Temp Pulse Resp B/P (MAP) Pulse Ox O2 Delivery O2 Flow Rate FiO2 02/25/19 12:00 96 190/81 (117) 95 Nasal Cannula 02/25/19 10:35 98.3 20 98.3 Lab Values Laboratory Tests Test 02/25/19 10:50 02/25/19 12:20 White Blood Count 5.8 x10^3/uL (4.0-11.0) Red Blood Count 3.37 x10^6/uL (3.50-5.40) L Hemoglobin 10.2 g/dL (12.0-15.5) L Hematocrit 31.2 % (36.0-47.0) L Mean Corpuscular Volume 93 fL (79-100) Mean Corpuscular Hemoglobin 30 pg (25-35) Mean Corpuscular Hemoglobin Concent 33 g/dL (31-37) Red Cell Distribution Width 20.0 % (11.5-14.5) H Platelet Count 200 x10^3/uL (140-400) Neutrophils (%) (Auto) 85 % (31-73) H Lymphocytes (%) (Auto) 9 % (24-48) L Monocytes (%) (Auto) 6 % (0-9) Eosinophils (%) (Auto) 0 % (0-3) Basophils (%) (Auto) 1 % (0-3) Neutrophils # (Auto) 4.9 x10^3uL (1.8-7.7) Lymphocytes # (Auto) 0.5 x10^3/uL (1.0-4.8) L Monocytes # (Auto) 0.3 x10^3/uL (0.0-1.1) Eosinophils # (Auto) 0.0 x10^3/uL (0.0-0.7) Basophils # (Auto) 0.0 x10^3/uL (0.0-0.2) Sodium Level 130 mmol/L (136-145) L Potassium Level 5.7 mmol/L (3.5-5.1) H Chloride Level 92 mmol/L (98-107) L Carbon Dioxide Level 25 mmol/L (21-32) Anion Gap 13 (6-14) Blood Urea Nitrogen 35 mg/dL (7-20) H Creatinine 7.6 mg/dL (0.6-1.0) H Estimated GFR (Cockcroft-Gault) 6.5 BUN/Creatinine Ratio 5 (6-20) L Glucose Level 117 mg/dL (70-99) H Calcium Level 10.0 mg/dL (8.5-10.1) Total Bilirubin 1.1 mg/dL (0.2-1.0) H Aspartate Amino Transferase (AST) 70 U/L (15-37) H Alanine Aminotransferase (ALT) 19 U/L (14-59) Alkaline Phosphatase 216 U/L (46-116) H Troponin I Quantitative 0.019 ng/mL (0.000-0.055) Total Protein 8.6 g/dL (6.4-8.2) H Albumin 3.0 g/dL (3.4-5.0) L Albumin/Globulin Ratio 0.5 (1.0-1.7) L Lipase 182 U/L (73-393) Urine Collection Type U cath Urine Color Yellow Urine Clarity Clear Urine pH 8.0 Urine Specific [place] 1.010 Urine Protein 30 mg/dL (NEG-TRACE) Urine Glucose (UA) Negative mg/dL (NEG) Urine Ketones (Stick) Negative mg/dL (NEG) Urine Blood Small (NEG) Urine Nitrite Negative (NEG) Urine Bilirubin Negative (NEG) Urine Urobilinogen Dipstick 0.2 mg/dL (0.2 mg/dL) Urine Leukocyte Esterase Moderate (NEG) Urine RBC 1-2 /HPF (0-2) Urine WBC 11-20 /HPF (0-4) Urine Bacteria Few /HPF (0-FEW) Urine Opiates Screen Neg (NEG) Urine Methadone Screen Neg (NEG) Urine Barbiturates Neg (NEG) Urine Phencyclidine Screen Neg (NEG) Urine Amphetamine/Methamphetamine Neg (NEG) Urine Benzodiazepines Screen Pos (NEG) Urine Cocaine Screen Neg (NEG) Urine Cannabinoids Screen Neg (NEG) Urine Ethyl Alcohol Neg (NEG) Laboratory Tests 02/25/19 10:50 Laboratory Tests 02/25/19 10:50 EKG EKG EKG interpreted by Dr. Jones. No STEMI noted. Sinus Tachycardia with rate of 101. [] Radiology/Procedures Radiology/Procedures []PATIENT: CESAR AGEE AACCOUNT: [id number]#: [id number] : 1955 LOCATION: ER AGE: 63 SEX: F EXAM STATUS: REG ER ORD. PHYSICIAN: HAYDER VIGIL APRN REASON: acute abd distention and pain PROCEDURE: CT ABDOMEN PELVIS WO CONTRAST CT study of the abdomen and pelvis without contrast Clinical indications: Acute abdominal pain and distention. At technique: Noncontrast helical CT scanning of the abdomen and pelvis performed. Without contrast, the sensitivity to detect organ pathology and GI tract pathology is decreased. PQRS compliance Statement One or more of the following individualized dose reduction techniques were utilized for this study: 1. Automated exposure control 2. Adjustment of the mA and/or kV according to patient size 3. Use of iterative reconstruction technique FINDINGS: The liver contour is corrugated which may be seen with cirrhosis. Recanalization of the umbilical vein this is seen. No hepatic mass is seen on this noncontrast study. The spleen measures 11.2 cm in length. The pancreas is homogeneous in appearance on this noncontrast study. There is peripancreatic edema which is new. The gallbladder is surgically absent. No extrahepatic biliary ductal dilatation is seen. No adrenal mass is evident. Small nonobstructing punctate stone of the lower pole right kidney is seen. No hydronephrosis or hydroureter is seen. Urinary bladder is not abnormally distended. Chronic perinephric inflammatory stranding is seen. No focal aneurysmal dilatation of the abdominal aorta is seen. No enlarged abdominal or pelvic lymphadenopathy is evident. There is a small amount of ascites present. This has developed since the previous study. There is wall thickening of the body of the stomach. However the stomach is not distended with air. No obstructive bowel pattern is evident. The colon is not distended. The appendix appears normal. Terminal ileum is unremarkable. No free air is seen. Small left-sided pleural effusion is seen. Associated left lung base atelectasis is seen. Cardiomegaly is evident. No lytic process is seen. IMPRESSION: New finding of peripancreatic inflammation and ascites. This may be seen with pancreatitis. 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 Wall thickening of the stomach and colon but the stomach and colon are not distended with air. Therefore, this may be secondary to gastritis or colitis or could be due to inadequate distention. No obstructive bowel pattern is evident. No free air is seen. Small left-sided pleural effusion and cardiomegaly. Electronically signed by: Bernardo Boswell MD (02/25/2019 12:14 PM) [id number] Course & Med Decision Making Course & Med Decision Making Pertinent Labs and Imaging studies reviewed. (See chart for details) Discussed with patient her symptoms. Will order labs, urine, CT w/o contrast due to kidney status. Will also give nausea and pain medication. Patient is agreeable to plan of care. Patient workup shows Hyperkalemia and Pancreatitis. Patient is agreeable to admission. Talked to Dr. Jacobo @ [id number]. Dr. Jacobo agrees to admission. Dragon Disclaimer Dragon Disclaimer This electronic medical record was generated, in whole or in part, using a voice recognition dictation system. Departure Departure Impression: Primary Impression: Hyperkalemia Additional Impression: Pancreatitis Disposition: 09 ADMITTED INPATIENT Condition: STABLE Referrals: UNKNOWN PCP NAME (PCP) Problem Qualifiers Additional Impression: Pancreatitis Chronicity: acute Pancreatitis type: alcohol induced Acute pancreatitis complication: unspecified Qualified Codes: K85.20 - Alcohol induced acute pancreatitis without necrosis or infection HAYDER VIGIL APRN February 25, 2019 17:51
[2019-02-25 18:34] LABS: BARBITURATES NEG (NEG); BENZODIAZEPINES POS (NEG); CANNABINOIDS NEG (NEG); COCAINE NEG (NEG); METHADONE NEG (NEG); OPIATES NEG (NEG); PHENCYCLIDINE NEG (NEG)
[2019-02-25 18:35] LABS: AMPHETAMINE/METHAMPHETAMINE NEG (NEG)
[2019-02-25 18:45] VITALS: BP 151/72
[2019-02-25] MEDS ORDERED: NAPR1TAB25 PO (20:37)
[2019-02-25] MEDS ORDERED: FAMOTIDINE 20 MG/2 ML VIAL IVP SCH (21:00)
[2019-02-25] MEDS: DEXTROSE 50% 25 GM / 50ML DISP.SYRIN. IV PRN (21:01)
[2019-02-25 23:13] VITALS: BP 130/66
[2019-02-26] MEDS: DEXTROSE 50% 25 GM / 50ML DISP.SYRIN. IV PRN ×2 (03:15→09:43)
[2019-02-26 03:46] VITALS: BP 142/70
[2019-02-26 04:18] LABS: HEMATOCRIT 26.6 % (36.0-47.0); HEMOGLOBIN 8.8 g/dL (12.0-15.5); RED BLOOD COUNT 2.87 x10^6/uL (3.50-5.40); RED CELL DISTRIBUTION WIDTH 19.5 % (11.5-14.5); WHITE BLOOD COUNT 4.4 x10^3/uL (4.0-11.0)
[2019-02-26 04:38] LABS: ALBUMIN 2.3 g/dL (3.4-5.0); ALBUMIN/GLOBULIN RATIO 0.5 (1.0-1.7); CREATININE 8.3 mg/dL (0.6-1.0); GFR 5.9; POTASSIUM 4.9 mmol/L (3.5-5.1); TOTAL BILIRUBIN 0.9 mg/dL (0.2-1.0); TOTAL PROTEIN 6.8 g/dL (6.4-8.2)
[2019-02-26 07:55] VITALS: BP 147/66
[2019-02-26] MEDS ORDERED: C.DIFF MED SCREEN BY RX. MC ONE (09:00)
--- NOTE | 2019-02-26 10:04 | PDOC2 ---
CONSULT Date of Consult Date of Consult DATE: 02/26/19 TIME: 09:45 Reason for Consult Reason for Consult: ESRD Source Source: Chart review, Patient History of Present Illness Reason for Visit: Pt is a 63 yo -[place] female who presented to the ER with abdominal pain. She reports that she is goes to dialysis TTS but missed Saturday as her ride didin't come to pick her up . She c/o diarrhea , nausea, and abd pain in the ED . Has been seen by GI in the past several times for similar issues (n/v and abd pain after missing dialysis). Denies any CP, SOB. No F/C. Past Medical History Cardiovascular: HTN, Hyperlipidemia Pulmonary: No pertinent hx GI: Constipation, GERD, GI bleed Heme/Onc: Anemia NOS Hepatobiliary: No pertinent hx, Hep A/B/C Psych: Addictions Rheumatologic: Rheumatoid arthritis Infectious disease: No pertinent hx Renal/: Chronic renal failure, Hematuria Endocrine: Diabetes, Hyperparathyroidism Past Surgical History Past Surgical History: Cholecystectomy, Tonsillectomy, Hysterectomy, Other Family History Family History: High Cholestrol, Hypertension, Family History Unknown Social History No ALCOHOL: heavy Drugs: None Current Medications Current Medications Current Medications Ondansetron HCl (Zofran) 4 mg 1X ONCE IV Last administered on 02/25/19at 11:18; Start 02/25/19 at 11:15; Stop 02/25/19 at 11:16; Status DC Fentanyl Citrate (Fentanyl 2ml Vial) 50 mcg 1X ONCE IV Last administered on 02/25/19at 11:18; Start 02/25/19 at 11:15; Stop 02/25/19 at 11:16; Status DC Multi-Ingredient Mouthwash/Gargle (Gi Cocktail) 20 ml 1X STAT PO Last administered on 02/25/19at 11:18; Start 02/25/19 at 11:06; Stop 02/25/19 at 11:11; Status DC Dicyclomine HCl (Bentyl) 10 mg 1X STAT PO Last administered on 02/25/19at 12:19; Start 02/25/19 at 11:16; Stop 02/25/19 at 11:17; Status DC Morphine Sulfate (Morphine Sulfate) 4 mg 1X ONCE IV Last administered on 02/25/19at 12:20; Start 02/25/19 at 12:15; Stop 02/25/19 at 12:16; Status DC Morphine Sulfate (Morphine Sulfate) 4 mg PRN Q2HR PRN IV PAIN Last administered on 02/25/19at 15:40; Start 02/25/19 at 13:30; Stop 02/26/19 at 13:29 Famotidine (Pepcid Vial) 20 mg QHS IVP Last administered on 02/25/19at 21:01; Start 02/25/19 at 21:00 Hydromorphone HCl (Dilaudid) 2 mg PRN Q4HRS PRN IV PAIN Last administered on 02/25/19at 16:07; Start 02/25/19 at 16:00 Dextrose (Dextrose 50%-Water Syringe) 12.5 gm PRN Q15MIN PRN IV SEE COMMENTS Last administered on 02/26/19at 09:43; Start 02/25/19 at 21:00 Pharmacy Consult (C.diff Med Screen By Rx) 1 each 1X ONCE MC Last administered on 02/26/19at 09:00; Start 02/26/19 at 09:00; Stop 02/26/19 at 09:01; Status DC Active Scripts Active Protonix (Pantoprazole Sodium) 20 Mg Tablet.dr 40 Tab PO DAILY Vancomycin Hcl 500 Mg Vial 125 Mg PO [id number] 13 Days Culturelle (Lactobacillus Rhamnosus Gg) 1 Each Cap.sprink 1 Cap PO BID 14 Days Reported Aleve Pm Caplet (Naproxen Na-Diphenhydramin HCl) 1 Each Tablet 1 Each PO HS PRN Nephro-Edward Tablet (Folic Acid/Vitamin B Comp W-C) 0.8 Mg Tablet 1 Tab PO DAILY Calcium Acetate 667 Mg Tablet 667 Mg PO TIDWMEALS Carvedilol 25 Mg Tablet 25 Mg PO BID Folic Acid 1 Mg Tablet 1 Mg PO DAILY Miralax (Polyethylene Glycol 3350) 17 Gm Powd.pack 1 Packet PO PRN DAILY PRN Amlodipine Besylate 10 Mg Tablet 10 Mg PO DAILY Allergies Allergies: Coded Allergies: I S O L A T I O N *CONTACT* (Verified Allergy, Unknown, 11/04/18) chronic C.diff acetaminophen (Verified Adverse Reaction, Intermediate, Nausea and Vomiting, 02/16/19) ROS Review of System As per HPI Physical Exam Physical Exam GEN: NAD HEEN: OM moist NECK: Supple, CVS: S1S2, RRR RESP: No Rales, No Rhonchi,No Acc. 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 Hyperkalemia- Mild Resolved Recurrent nausea,abd pain diarrhea- GI Following CT - peripancreatic inflammation, ascites, wall thickening of the stomach and colon Anemia - Hgb from 10.5 to 8.8 If GI huerta negative , start Aranesp q week HTN -On antihypertensives at Home GERD - non-compliant w/ PPI, /On Naproxen per home med list Cirrhosis - ETOH , Hep C Labs Labs Laboratory Tests Test 02/25/19 10:50 02/25/19 12:20 02/25/19 20:48 02/25/19 21:54 White Blood Count 5.8 x10^3/uL (4.0-11.0) Red Blood Count 3.37 x10^6/uL (3.50-5.40) Hemoglobin 10.2 g/dL (12.0-15.5) Hematocrit 31.2 % (36.0-47.0) Mean Corpuscular Volume 93 fL (79-100) Mean Corpuscular Hemoglobin 30 pg (25-35) Mean Corpuscular Hemoglobin Concent 33 g/dL (31-37) Red Cell Distribution Width 20.0 % (11.5-14.5) Platelet Count 200 x10^3/uL (140-400) Neutrophils (%) (Auto) 85 % (31-73) Lymphocytes (%) (Auto) 9 % (24-48) Monocytes (%) (Auto) 6 % (0-9) Eosinophils (%) (Auto) 0 % (0-3) Basophils (%) (Auto) 1 % (0-3) Neutrophils # (Auto) 4.9 x10^3uL (1.8-7.7) Lymphocytes # (Auto) 0.5 x10^3/uL (1.0-4.8) Monocytes # (Auto) 0.3 x10^3/uL (0.0-1.1) Eosinophils # (Auto) 0.0 x10^3/uL (0.0-0.7) Basophils # (Auto) 0.0 x10^3/uL (0.0-0.2) Sodium Level 130 mmol/L (136-145) Potassium Level 5.7 mmol/L (3.5-5.1) Chloride Level 92 mmol/L (98-107) Carbon Dioxide Level 25 mmol/L (21-32) Anion Gap 13 (6-14) Blood Urea Nitrogen 35 mg/dL (7-20) Creatinine 7.6 mg/dL (0.6-1.0) Estimated GFR (Cockcroft-Gault) 6.5 BUN/Creatinine Ratio 5 (6-20) Glucose Level 117 mg/dL (70-99) Calcium Level 10.0 mg/dL (8.5-10.1) Total Bilirubin 1.1 mg/dL (0.2-1.0) Aspartate Amino Transf (AST/SGOT) 70 U/L (15-37) Alanine Aminotransferase (ALT/SGPT) 19 U/L (14-59) Alkaline Phosphatase 216 U/L (46-116) Troponin I Quantitative 0.019 ng/mL (0.000-0.055) Total Protein 8.6 g/dL (6.4-8.2) Albumin 3.0 g/dL (3.4-5.0) Albumin/Globulin Ratio 0.5 (1.0-1.7) Lipase 182 U/L (73-393) Urine Collection Type U cath Urine Color Yellow Urine Clarity Clear Urine pH 8.0 Urine Specific Harriet 1.010 Urine Protein 30 mg/dL (NEG-TRACE) Urine Glucose (UA) Negative mg/dL (NEG) Urine Ketones (Stick) Negative mg/dL (NEG) Urine Blood Small (NEG) Urine Nitrite Negative (NEG) Urine Bilirubin Negative (NEG) Urine Urobilinogen Dipstick 0.2 mg/dL (0.2 mg/dL) Urine Leukocyte Esterase Moderate (NEG) Urine RBC 1-2 /HPF (0-2) Urine WBC 11-20 /HPF (0-4) Urine Bacteria Few /HPF (0-FEW) Urine Opiates Screen Neg (NEG) Urine Methadone Screen Neg (NEG) Urine Barbiturates Neg (NEG) Urine Phencyclidine Screen Neg (NEG) Urine Amphetamine/Methamphetamine Neg (NEG) Urine Benzodiazepines Screen Pos (NEG) Urine Cocaine Screen Neg (NEG) Urine Cannabinoids Screen Neg (NEG) Urine Ethyl Alcohol Neg (NEG) Glucose (Fingerstick) 69 mg/dL (70-99) 103 mg/dL (70-99) Test 02/26/19 03:02 02/26/19 03:55 02/26/19 08:32 Glucose (Fingerstick) 69 mg/dL (70-99) 66 mg/dL (70-99) White Blood Count 4.4 x10^3/uL (4.0-11.0) Red Blood Count 2.87 x10^6/uL (3.50-5.40) Hemoglobin 8.8 g/dL (12.0-15.5) Hematocrit 26.6 % (36.0-47.0) Mean Corpuscular Volume 93 fL (79-100) Mean Corpuscular Hemoglobin 31 pg (25-35) Mean Corpuscular Hemoglobin Concent 33 g/dL (31-37) Red Cell Distribution Width 19.5 % (11.5-14.5) Platelet Count 156 x10^3/uL (140-400) Sodium Level 132 mmol/L (136-145) Potassium Level 4.9 mmol/L (3.5-5.1) Chloride Level 96 mmol/L (98-107) Carbon Dioxide Level 28 mmol/L (21-32) Anion Gap 8 (6-14) Blood Urea Nitrogen 40 mg/dL (7-20) Creatinine 8.3 mg/dL (0.6-1.0) Estimated GFR (Cockcroft-Gault) 5.9 BUN/Creatinine Ratio 5 (6-20) Glucose Level 98 mg/dL (70-99) Calcium Level 9.0 mg/dL (8.5-10.1) Total Bilirubin 0.9 mg/dL (0.2-1.0) Aspartate Amino Transf (AST/SGOT) 44 U/L (15-37) Alanine Aminotransferase (ALT/SGPT) 15 U/L (14-59) Alkaline Phosphatase 155 U/L (46-116) Total Protein 6.8 g/dL (6.4-8.2) Albumin 2.3 g/dL (3.4-5.0) Albumin/Globulin Ratio 0.5 (1.0-1.7) Laboratory Tests Test 02/25/19 10:50 02/25/19 12:20 02/25/19 20:48 02/25/19 21:54 White Blood Count 5.8 x10^3/uL (4.0-11.0) Red Blood Count 3.37 x10^6/uL (3.50-5.40) Hemoglobin 10.2 g/dL (12.0-15.5) Hematocrit 31.2 % (36.0-47.0) Mean Corpuscular Volume 93 fL (79-100) Mean Corpuscular Hemoglobin 30 pg (25-35) Mean Corpuscular Hemoglobin Concent 33 g/dL (31-37) Red Cell Distribution Width 20.0 % (11.5-14.5) Platelet Count 200 x10^3/uL (140-400) Neutrophils (%) (Auto) 85 % (31-73) Lymphocytes (%) (Auto) 9 % (24-48) Monocytes (%) (Auto) 6 % (0-9) Eosinophils (%) (Auto) 0 % (0-3) Basophils (%) (Auto) 1 % (0-3) Neutrophils # (Auto) 4.9 x10^3uL (1.8-7.7) Lymphocytes # (Auto) 0.5 x10^3/uL (1.0-4.8) Monocytes # (Auto) 0.3 x10^3/uL (0.0-1.1) Eosinophils # (Auto) 0.0 x10^3/uL (0.0-0.7) Basophils # (Auto) 0.0 x10^3/uL (0.0-0.2) Sodium Level 130 mmol/L (136-145) Potassium Level 5.7 mmol/L (3.5-5.1) Chloride Level 92 mmol/L (98-107) Carbon Dioxide Level 25 mmol/L (21-32) Anion Gap 13 (6-14) Blood Urea Nitrogen 35 mg/dL (7-20) Creatinine 7.6 mg/dL (0.6-1.0) Estimated GFR (Cockcroft-Gault) 6.5 BUN/Creatinine Ratio 5 (6-20) Glucose Level 117 mg/dL (70-99) Calcium Level 10.0 mg/dL (8.5-10.1) Total Bilirubin 1.1 mg/dL (0.2-1.0) Aspartate Amino Transf (AST/SGOT) 70 U/L (15-37) Alanine Aminotransferase (ALT/SGPT) 19 U/L (14-59) Alkaline Phosphatase 216 U/L (46-116) Troponin I Quantitative 0.019 ng/mL (0.000-0.055) Total Protein 8.6 g/dL (6.4-8.2) Albumin 3.0 g/dL (3.4-5.0) Albumin/Globulin Ratio 0.5 (1.0-1.7) Lipase 182 U/L (73-393) Urine Collection Type U cath Urine Color Yellow Urine Clarity Clear Urine pH 8.0 Urine Specific Harriet 1.010 Urine Protein 30 mg/dL (NEG-TRACE) Urine Glucose (UA) Negative mg/dL (NEG) Urine Ketones (Stick) Negative mg/dL (NEG) Urine Blood Small (NEG) Urine Nitrite Negative (NEG) Urine Bilirubin Negative (NEG) Urine Urobilinogen Dipstick 0.2 mg/dL (0.2 mg/dL) Urine Leukocyte Esterase Moderate (NEG) Urine RBC 1-2 /HPF (0-2) Urine WBC 11-20 /HPF (0-4) Urine Bacteria Few /HPF (0-FEW) Urine Opiates Screen Neg (NEG) Urine Methadone Screen Neg (NEG) Urine Barbiturates Neg (NEG) Urine Phencyclidine Screen Neg (NEG) Urine Amphetamine/Methamphetamine Neg (NEG) Urine Benzodiazepines Screen Pos (NEG) Urine Cocaine Screen Neg (NEG) Urine Cannabinoids Screen Neg (NEG) Urine Ethyl Alcohol Neg (NEG) Glucose (Fingerstick) 69 mg/dL (70-99) 103 mg/dL (70-99) Test 02/26/19 03:02 02/26/19 03:55 02/26/19 08:32 Glucose (Fingerstick) 69 mg/dL (70-99) 66 mg/dL (70-99) White Blood Count 4.4 x10^3/uL (4.0-11.0) Red Blood Count 2.87 x10^6/uL (3.50-5.40) Hemoglobin 8.8 g/dL (12.0-15.5) Hematocrit 26.6 % (36.0-47.0) Mean Corpuscular Volume 93 fL (79-100) Mean Corpuscular Hemoglobin 31 pg (25-35) Mean Corpuscular Hemoglobin Concent 33 g/dL (31-37) Red Cell Distribution Width 19.5 % (11.5-14.5) Platelet Count 156 x10^3/uL (140-400) Sodium Level 132 mmol/L (136-145) Potassium Level 4.9 mmol/L (3.5-5.1) Chloride Level 96 mmol/L (98-107) Carbon Dioxide Level 28 mmol/L (21-32) Anion Gap 8 (6-14) Blood Urea Nitrogen 40 mg/dL (7-20) Creatinine 8.3 mg/dL (0.6-1.0) Estimated GFR (Cockcroft-Gault) 5.9 BUN/Creatinine Ratio 5 (6-20) Glucose Level 98 mg/dL (70-99) Calcium Level 9.0 mg/dL (8.5-10.1) Total Bilirubin 0.9 mg/dL (0.2-1.0) Aspartate Amino Transf (AST/SGOT) 44 U/L (15-37) Alanine Aminotransferase (ALT/SGPT) 15 U/L (14-59) Alkaline Phosphatase 155 U/L (46-116) Total Protein 6.8 g/dL (6.4-8.2) Albumin 2.3 g/dL (3.4-5.0) Albumin/Globulin Ratio 0.5 (1.0-1.7) Review All relevant outside records, renal labs, imaging studies, telemetry/EKG's were reviewed. Images Images CT abdomen-- The liver contour is corrugated which may be seen with cirrhosis. Recanalization of the umbilical vein this is seen. No hepatic mass is seen on this noncontrast study. The spleen measures 11.2 cm in length. The pancreas is homogeneous in appearance on this noncontrast study. There is peripancreatic edema which is new. The gallbladder is surgically absent. No extrahepatic biliary ductal dilatation is seen. No adrenal mass is evident. Small nonobstructing punctate stone of the lower pole right kidney is seen. No hydronephrosis or hydroureter is seen. Urinary bladder is not abnormally distended. Chronic perinephric inflammatory stranding is seen. No focal aneurysmal dilatation of the abdominal aorta is seen. No enlarged abdominal or pelvic lymphadenopathy is evident. There is a small amount of ascites present. This has developed since the previous study. There is wall thickening of the body of the stomach. However the stomach is not distended with air. No obstructive bowel pattern is evident. The colon is not distended. The appendix appears normal. Terminal ileum is unremarkable. No free air is seen. Small left-sided pleural effusion is seen. Associated left lung base atelectasis is seen. Cardiomegaly is evident. No lytic process is seen. IMPRESSION: New finding of peripancreatic inflammation and ascites. This may be seen with pancreatitis. 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 Wall thickening of the stomach and colon but the stomach and colon are not distended with air. Therefore, this may be secondary to gastritis or colitis or could be due to inadequate distention. No obstructive bowel pattern is evident. No free air is seen. Small left-sided pleural effusion and cardiomegaly. GINO TAN MD February 26, 2019 10:04
[2019-02-26 11:59] VITALS: BP 163/78
--- NOTE | 2019-02-26 12:35 | PDOC ---
Subjective: Subjective: Denies n/v, abd pain, and diarrhea. Has been NPO, wants "real food." Awaiting dialysis. Objective: Vital Signs: Vital Signs Date Time Temp Pulse Resp B/P (MAP) Pulse Ox O2 Delivery O2 Flow Rate FiO2 02/26/19 11:59 97.6 78 17 163/78 (106) 97 Room Air 97.6 Labs: Laboratory Tests Test 02/25/19 20:48 02/25/19 21:54 02/26/19 03:02 02/26/19 03:55 Glucose (Fingerstick) 69 mg/dL 103 mg/dL 69 mg/dL White Blood Count 4.4 x10^3/uL Red Blood Count 2.87 x10^6/uL Hemoglobin 8.8 g/dL Hematocrit 26.6 % Mean Corpuscular Volume 93 fL Mean Corpuscular Hemoglobin 31 pg Mean Corpuscular Hemoglobin Concent 33 g/dL Red Cell Distribution Width 19.5 % Platelet Count 156 x10^3/uL Sodium Level 132 mmol/L Potassium Level 4.9 mmol/L Chloride Level 96 mmol/L Carbon Dioxide Level 28 mmol/L Anion Gap 8 Blood Urea Nitrogen 40 mg/dL Creatinine 8.3 mg/dL Estimated GFR (Cockcroft-Gault) 5.9 BUN/Creatinine Ratio 5 Glucose Level 98 mg/dL Calcium Level 9.0 mg/dL Total Bilirubin 0.9 mg/dL Aspartate Amino Transf (AST/SGOT) 44 U/L Alanine Aminotransferase (ALT/SGPT) 15 U/L Alkaline Phosphatase 155 U/L Total Protein 6.8 g/dL Albumin 2.3 g/dL Albumin/Globulin Ratio 0.5 Test 02/26/19 08:32 02/26/19 11:54 Glucose (Fingerstick) 66 mg/dL 60 mg/dL PE: GEN: NAD - talking and laughing on the phone LUNGS: CTAB HEART: RRR ABD: soft, non-tender NEURO/PSYCH: A & O 3 A/P: Recurrent nausea, abd pain, diarrhea - quick resolution per usual when misses dialysis ?pancreatitis - h/o alcohol overuse H/o GERD and - non-compliant w/ PPI Chronic anemia - stable -- Okay for renal diet - d/w RN who will order now per pt request. PO PPI - could send home w/ Rx for omeprazole instead of pantoprazole. IRIS SZYMANSKI February 26, 2019 12:35
[2019-02-26] MEDS ORDERED: IV NORMAL SALINE 1000ML BAG 1,000 ML IV PRN ×2 (13:08)
[2019-02-26] MEDS ORDERED: DIALYSIS PATIENT. MC PRN ×5 (13:15)
[2019-02-26] MEDS ORDERED: ALBUMIN HUMAN 25% 200 ML IV PRN (13:15)
--- NOTE | 2019-02-26 13:33 | PDOC ---
PROGRESS NOTES Chief Complaint Chief Complaint Pancreatitis- Nausea, abdominal pain, diarrhea HTN, ESRD on HD - missed dialysis yesterday Chronic anemia GERD- non-compliant w/ PPI, EGD last week Cirrhosis H/o C Diff S/p cholecystectomy History of Present Illness History of Present Illness Patient seen and examined. Patient in NAD with largest complaint being hunger. Talked with patient about slowly advancing diet when GI states it is okay Vitals Vitals Vital Signs Date Time Temp Pulse Resp B/P (MAP) Pulse Ox O2 Delivery O2 Flow Rate FiO2 02/26/19 11:59 97.6 78 17 163/78 (106) 97 Room Air 97.6 Physical Exam General: Alert, Oriented X3, Cooperative, No acute distress Heart: Regular rate, Normal S1, Normal S2 Lungs: Clear Extremities: No clubbing, No cyanosis, No edema Skin: No rashes, No significant lesion Labs LABS Laboratory Tests Test 02/25/19 20:48 02/25/19 21:54 02/26/19 03:02 02/26/19 03:55 Glucose (Fingerstick) 69 mg/dL (70-99) 103 mg/dL (70-99) 69 mg/dL (70-99) White Blood Count 4.4 x10^3/uL (4.0-11.0) Red Blood Count 2.87 x10^6/uL (3.50-5.40) Hemoglobin 8.8 g/dL (12.0-15.5) Hematocrit 26.6 % (36.0-47.0) Mean Corpuscular Volume 93 fL (79-100) Mean Corpuscular Hemoglobin 31 pg (25-35) Mean Corpuscular Hemoglobin Concent 33 g/dL (31-37) Red Cell Distribution Width 19.5 % (11.5-14.5) Platelet Count 156 x10^3/uL (140-400) Sodium Level 132 mmol/L (136-145) Potassium Level 4.9 mmol/L (3.5-5.1) Chloride Level 96 mmol/L (98-107) Carbon Dioxide Level 28 mmol/L (21-32) Anion Gap 8 (6-14) Blood Urea Nitrogen 40 mg/dL (7-20) Creatinine 8.3 mg/dL (0.6-1.0) Estimated GFR (Cockcroft-Gault) 5.9 BUN/Creatinine Ratio 5 (6-20) Glucose Level 98 mg/dL (70-99) Calcium Level 9.0 mg/dL (8.5-10.1) Total Bilirubin 0.9 mg/dL (0.2-1.0) Aspartate Amino Transf (AST/SGOT) 44 U/L (15-37) Alanine Aminotransferase (ALT/SGPT) 15 U/L (14-59) Alkaline Phosphatase 155 U/L (46-116) Total Protein 6.8 g/dL (6.4-8.2) Albumin 2.3 g/dL (3.4-5.0) Albumin/Globulin Ratio 0.5 (1.0-1.7) Test 02/26/19 08:32 02/26/19 11:54 Glucose (Fingerstick) 66 mg/dL (70-99) 60 mg/dL (70-99) Review of Systems Review of Systems Patient complains of Hunger Patient denies CHU Assessment and Plan Assessmemt and Plan Assessment: Pancreatitis- Nausea, abdominal pain, diarrhea HTN, ESRD on HD - missed dialysis yesterday Chronic anemia GERD- non-compliant w/ PPI, EGD last week Cirrhosis H/o C Diff S/p cholecystectomy Plan: Pain management: IV Morphine 4mg prn Q2H, IV Hydromorphone 2mg Prn Q4H HD T,,S (Dialysis today) Labs w/ daily lipase PT/OT Hope to advance diet if GI agrees GI and Nephro are following Comment Review of Relevant I have reviewed the following items tamika (where applicable) has been applied. Labs Laboratory Tests Test 02/25/19 10:50 02/25/19 12:20 02/25/19 20:48 02/25/19 21:54 White Blood Count 5.8 x10^3/uL (4.0-11.0) Red Blood Count 3.37 x10^6/uL (3.50-5.40) Hemoglobin 10.2 g/dL (12.0-15.5) Hematocrit 31.2 % (36.0-47.0) Mean Corpuscular Volume 93 fL (79-100) Mean Corpuscular Hemoglobin 30 pg (25-35) Mean Corpuscular Hemoglobin Concent 33 g/dL (31-37) Red Cell Distribution Width 20.0 % (11.5-14.5) Platelet Count 200 x10^3/uL (140-400) Neutrophils (%) (Auto) 85 % (31-73) Lymphocytes (%) (Auto) 9 % (24-48) Monocytes (%) (Auto) 6 % (0-9) Eosinophils (%) (Auto) 0 % (0-3) Basophils (%) (Auto) 1 % (0-3) Neutrophils # (Auto) 4.9 x10^3uL (1.8-7.7) Lymphocytes # (Auto) 0.5 x10^3/uL (1.0-4.8) Monocytes # (Auto) 0.3 x10^3/uL (0.0-1.1) Eosinophils # (Auto) 0.0 x10^3/uL (0.0-0.7) Basophils # (Auto) 0.0 x10^3/uL (0.0-0.2) Sodium Level 130 mmol/L (136-145) Potassium Level 5.7 mmol/L (3.5-5.1) Chloride Level 92 mmol/L (98-107) Carbon Dioxide Level 25 mmol/L (21-32) Anion Gap 13 (6-14) Blood Urea Nitrogen 35 mg/dL (7-20) Creatinine 7.6 mg/dL (0.6-1.0) Estimated GFR (Cockcroft-Gault) 6.5 BUN/Creatinine Ratio 5 (6-20) Glucose Level 117 mg/dL (70-99) Calcium Level 10.0 mg/dL (8.5-10.1) Total Bilirubin 1.1 mg/dL (0.2-1.0) Aspartate Amino Transf (AST/SGOT) 70 U/L (15-37) Alanine Aminotransferase (ALT/SGPT) 19 U/L (14-59) Alkaline Phosphatase 216 U/L (46-116) Troponin I Quantitative 0.019 ng/mL (0.000-0.055) Total Protein 8.6 g/dL (6.4-8.2) Albumin 3.0 g/dL (3.4-5.0) Albumin/Globulin Ratio 0.5 (1.0-1.7) Lipase 182 U/L (73-393) Urine Collection Type U cath Urine Color Yellow Urine Clarity Clear Urine pH 8.0 Urine Specific [place] 1.010 Urine Protein 30 mg/dL (NEG-TRACE) Urine Glucose (UA) Negative mg/dL (NEG) Urine Ketones (Stick) Negative mg/dL (NEG) Urine Blood Small (NEG) Urine Nitrite Negative (NEG) Urine Bilirubin Negative (NEG) Urine Urobilinogen Dipstick 0.2 mg/dL (0.2 mg/dL) Urine Leukocyte Esterase Moderate (NEG) Urine RBC 1-2 /HPF (0-2) Urine WBC 11-20 /HPF (0-4) Urine Bacteria Few /HPF (0-FEW) Urine Opiates Screen Neg (NEG) Urine Methadone Screen Neg (NEG) Urine Barbiturates Neg (NEG) Urine Phencyclidine Screen Neg (NEG) Urine Amphetamine/Methamphetamine Neg (NEG) Urine Benzodiazepines Screen Pos (NEG) Urine Cocaine Screen Neg (NEG) Urine Cannabinoids Screen Neg (NEG) Urine Ethyl Alcohol Neg (NEG) Glucose (Fingerstick) 69 mg/dL (70-99) 103 mg/dL (70-99) Test 02/26/19 03:02 02/26/19 03:55 02/26/19 08:32 02/26/19 11:54 Glucose (Fingerstick) 69 mg/dL (70-99) 66 mg/dL (70-99) 60 mg/dL (70-99) White Blood Count 4.4 x10^3/uL (4.0-11.0) Red Blood Count 2.87 x10^6/uL (3.50-5.40) Hemoglobin 8.8 g/dL (12.0-15.5) Hematocrit 26.6 % (36.0-47.0) Mean Corpuscular Volume 93 fL (79-100) Mean Corpuscular Hemoglobin 31 pg (25-35) Mean Corpuscular Hemoglobin Concent 33 g/dL (31-37) Red Cell Distribution Width 19.5 % (11.5-14.5) Platelet Count 156 x10^3/uL (140-400) Sodium Level 132 mmol/L (136-145) Potassium Level 4.9 mmol/L (3.5-5.1) Chloride Level 96 mmol/L (98-107) Carbon Dioxide Level 28 mmol/L (21-32) Anion Gap 8 (6-14) Blood Urea Nitrogen 40 mg/dL (7-20) Creatinine 8.3 mg/dL (0.6-1.0) Estimated GFR (Cockcroft-Gault) 5.9 BUN/Creatinine Ratio 5 (6-20) Glucose Level 98 mg/dL (70-99) Calcium Level 9.0 mg/dL (8.5-10.1) Total Bilirubin 0.9 mg/dL (0.2-1.0) Aspartate Amino Transf (AST/SGOT) 44 U/L (15-37) Alanine Aminotransferase (ALT/SGPT) 15 U/L (14-59) Alkaline Phosphatase 155 U/L (46-116) Total Protein 6.8 g/dL (6.4-8.2) Albumin 2.3 g/dL (3.4-5.0) Albumin/Globulin Ratio 0.5 (1.0-1.7) Laboratory Tests Test 02/25/19 20:48 02/25/19 21:54 02/26/19 03:02 02/26/19 03:55 Glucose (Fingerstick) 69 mg/dL (70-99) 103 mg/dL (70-99) 69 mg/dL (70-99) White Blood Count 4.4 x10^3/uL (4.0-11.0) Red Blood Count 2.87 x10^6/uL (3.50-5.40) Hemoglobin 8.8 g/dL (12.0-15.5) Hematocrit 26.6 % (36.0-47.0) Mean Corpuscular Volume 93 fL (79-100) Mean Corpuscular Hemoglobin 31 pg (25-35) Mean Corpuscular Hemoglobin Concent 33 g/dL (31-37) Red Cell Distribution Width 19.5 % (11.5-14.5) Platelet Count 156 x10^3/uL (140-400) Sodium Level 132 mmol/L (136-145) Potassium Level 4.9 mmol/L (3.5-5.1) Chloride Level 96 mmol/L (98-107) Carbon Dioxide Level 28 mmol/L (21-32) Anion Gap 8 (6-14) Blood Urea Nitrogen 40 mg/dL (7-20) Creatinine 8.3 mg/dL (0.6-1.0) Estimated GFR (Cockcroft-Gault) 5.9 BUN/Creatinine Ratio 5 (6-20) Glucose Level 98 mg/dL (70-99) Calcium Level 9.0 mg/dL (8.5-10.1) Total Bilirubin 0.9 mg/dL (0.2-1.0) Aspartate Amino Transf (AST/SGOT) 44 U/L (15-37) Alanine Aminotransferase (ALT/SGPT) 15 U/L (14-59) Alkaline Phosphatase 155 U/L (46-116) Total Protein 6.8 g/dL (6.4-8.2) Albumin 2.3 g/dL (3.4-5.0) Albumin/Globulin Ratio 0.5 (1.0-1.7) Test 02/26/19 08:32 02/26/19 11:54 Glucose (Fingerstick) 66 mg/dL (70-99) 60 mg/dL (70-99) Medications Current Medications Ondansetron HCl (Zofran) 4 mg 1X ONCE IV Last administered on 02/25/19at 11:18; Start 02/25/19 at 11:15; Stop 02/25/19 at 11:16; Status DC Fentanyl Citrate (Fentanyl 2ml Vial) 50 mcg 1X ONCE IV Last administered on 02/25/19at 11:18; Start 02/25/19 at 11:15; Stop 02/25/19 at 11:16; Status DC Multi-Ingredient Mouthwash/Gargle (Gi Cocktail) 20 ml 1X STAT PO Last administered on 02/25/19at 11:18; Start 02/25/19 at 11:06; Stop 02/25/19 at 11:11; Status DC Dicyclomine HCl (Bentyl) 10 mg 1X STAT PO Last administered on 02/25/19at 12:19; Start 02/25/19 at 11:16; Stop 02/25/19 at 11:17; Status DC Morphine Sulfate (Morphine Sulfate) 4 mg 1X ONCE IV Last administered on 02/25/19at 12:20; Start 02/25/19 at 12:15; Stop 02/25/19 at 12:16; Status DC Morphine Sulfate (Morphine Sulfate) 4 mg PRN Q2HR PRN IV PAIN Last administered on 02/25/19at 15:40; Start 02/25/19 at 13:30; Stop 02/26/19 at 13:29 Famotidine (Pepcid Vial) 20 mg QHS IVP Last administered on 02/25/19at 21:01; Start 02/25/19 at 21:00; Stop 02/26/19 at 12:34; Status DC Hydromorphone HCl (Dilaudid) 2 mg PRN Q4HRS PRN IV PAIN Last administered on 02/25/19at 16:07; Start 02/25/19 at 16:00 Dextrose (Dextrose 50%-Water Syringe) 12.5 gm PRN Q15MIN PRN IV SEE COMMENTS Last administered on 02/26/19at 09:43; Start 02/25/19 at 21:00 Pharmacy Consult (C.diff Med Screen By Rx) 1 each 1X ONCE MC Last administered on 02/26/19at 09:00; Start 02/26/19 at 09:00; Stop 02/26/19 at 09:01; Status DC Pantoprazole Sodium (Protonix) 40 mg DAILYAC PO ; Start 02/26/19 at 13:00 Info (PHARMACY MONITORING -- do not chart) 1 each PRN DAILY PRN MC SEE COMMENTS; Start 02/26/19 at 13:15; Status UNV Info (PHARMACY MONITORING -- do not chart) 1 each PRN DAILY PRN MC SEE C OMMENTS; Start 02/26/19 at 13:15; Status UNV Info (PHARMACY MONITORING -- do not chart) 1 each PRN DAILY PRN MC SEE COMMENTS; Start 02/26/19 at 13:15; Status UNV Active Scripts Active Protonix (Pantoprazole Sodium) 20 Mg Tablet.dr 40 Tab PO DAILY Vancomycin Hcl 500 Mg Vial 125 Mg PO [id number] 13 Days Culturelle (Lactobacillus Rhamnosus Gg) 1 Each Cap.sprink 1 Cap PO BID 14 Days Reported Aleve Pm Caplet (Naproxen Na-Diphenhydramin HCl) 1 Each Tablet 1 Each PO HS PRN Nephro-Edwadr Tablet (Folic Acid/Vitamin B Comp W-C) 0.8 Mg Tablet 1 Tab PO DAILY Calcium Acetate 667 Mg Tablet 667 Mg PO TIDWMEALS Carvedilol 25 Mg Tablet 25 Mg PO BID Folic Acid 1 Mg Tablet 1 Mg PO DAILY Miralax (Polyethylene Glycol 3350) 17 Gm Powd.pack 1 Packet PO PRN DAILY PRN Amlodipine Besylate 10 Mg Tablet 10 Mg PO DAILY Vitals/I & O Vital Sign - Last 24 Hours 02/25/19 02/25/19 02/25/19 02/25/19 14:00 15:00 15:30 16:30 Pulse 98 100 100 92 B/P (MAP) 188/85 (119) 184/84 (117) 172/81 (111) 186/80 (115) Pulse Ox 96 95 95 O2 Delivery Nasal Cannula Nasal Cannula Nasal Cannula 02/25/19 02/25/19 02/25/19 02/25/19 17:00 18:00 18:45 20:10 Temp 97.6 97.6 Pulse 92 92 86 Resp 16 B/P (MAP) 175/71 (105) 149/65 (93) 151/72 (98) Pulse Ox 94 94 96 O2 Delivery Nasal Cannula Nasal Cannula Room Air Room Air 02/25/19 02/26/19 02/26/19 02/26/19 23:13 03:46 07:55 08:00 Temp 98.2 97.6 97.4 98.2 97.6 97.4 Pulse 83 78 80 Resp 16 20 16 B/P (MAP) 130/66 (87) 142/70 (94) 147/66 (93) Pulse Ox 100 98 97 O2 Delivery Room Air Room Air Room Air Room Air 02/26/19 11:59 Temp 97.6 97.6 Pulse 78 Resp 17 B/P (MAP) 163/78 (106) Pulse Ox 97 O2 Delivery Room Air Intake and Output 02/25/19 02/25/19 02/26/19 14:59 22:59 06:59 Intake Total 0 ml 20 ml Output Total 0 ml Balance 0 ml 20 ml VIKAS GAMEZ III DO February 26, 2019 13:33
[2019-02-26 17:08] VITALS: BP 143/68
[2019-02-26] MEDS: PANTOPRAZOLE 40 MG TABLET.DR. PO SCH (17:59)
[2019-02-26 19:00] VITALS: BP 151/66
[2019-02-26] MEDS: HYDROmorphone 2 MG/ML VIAL IV PRN (21:03)
[2019-02-26 23:00] VITALS: BP 129/65
[2019-02-27 03:00] VITALS: BP 129/72
[2019-02-27] MEDS: HYDROmorphone 2 MG/ML VIAL IV PRN ×2 (04:12→15:13)
[2019-02-27 04:53] LABS: BASO % 1 % (0-3); EOS # 0.1 x10^3/uL (0.0-0.7); EOS % 3 % (0-3); HEMATOCRIT 29.4 % (36.0-47.0); HEMOGLOBIN 9.5 g/dL (12.0-15.5); LYMPH # 0.8 x10^3/uL (1.0-4.8); LYMPH % 21 % (24-48); MEAN CORPUSCULAR HEMOGLOBIN 30 pg (25-35); MEAN CORPUSCULAR HGB CONC 32 g/dL (31-37); MEAN CORPUSCULAR VOLUME 93 fL (79-100); MONO # 0.4 x10^3/uL (0.0-1.1); MONO % 10 % (0-9); NEUT # 2.6 x10^3uL (1.8-7.7); NEUT % 65 % (31-73); PLATELET COUNT 144 x10^3/uL (140-400); RED BLOOD COUNT 3.15 x10^6/uL (3.50-5.40); RED CELL DISTRIBUTION WIDTH 19.6 % (11.5-14.5); WHITE BLOOD COUNT 3.9 x10^3/uL (4.0-11.0)
[2019-02-27 05:12] LABS: CALCIUM 8.6 mg/dL (8.5-10.1); CREATININE 6.3 mg/dL (0.6-1.0); GFR 8.1; POTASSIUM 4.8 mmol/L (3.5-5.1)
[2019-02-27 07:55] VITALS: BP 134/74
[2019-02-27] MEDS: PANTOPRAZOLE 40 MG TABLET.DR. PO SCH (08:19)
[2019-02-27 11:22] VITALS: BP 136/57
--- NOTE | 2019-02-27 12:17 | PDOC ---
PROGRESS NOTES Chief Complaint Chief Complaint Pancreatitis- Nausea, abdominal pain, diarrhea HTN, ESRD on HD - missed dialysis yesterday Chronic anemia GERD- non-compliant w/ PPI, EGD last week Cirrhosis H/o C Diff S/p cholecystectomy History of Present Illness History of Present Illness Patient seen and examined. Patient in NAD and pleasantly eating. Placed on Renal diet States she is feeling well with no complaints and desires to go home Vitals Vitals Vital Signs Date Time Temp Pulse Resp B/P (MAP) Pulse Ox O2 Delivery O2 Flow Rate FiO2 02/27/19 11:22 97.6 88 19 136/57 (83) 98 Room Air 97.6 Physical Exam General: Alert, Oriented X3, Cooperative, No acute distress Heart: Regular rate, Normal S1, Normal S2 Lungs: Clear Extremities: No clubbing, No cyanosis, No edema Skin: No rashes, No significant lesion Labs LABS Laboratory Tests Test 02/26/19 17:00 02/27/19 04:00 02/27/19 08:21 02/27/19 11:14 Glucose (Fingerstick) 76 mg/dL (70-99) 73 mg/dL (70-99) 88 mg/dL (70-99) White Blood Count 3.9 x10^3/uL (4.0-11.0) Red Blood Count 3.15 x10^6/uL (3.50-5.40) Hemoglobin 9.5 g/dL (12.0-15.5) Hematocrit 29.4 % (36.0-47.0) Mean Corpuscular Volume 93 fL (79-100) Mean Corpuscular Hemoglobin 30 pg (25-35) Mean Corpuscular Hemoglobin Concent 32 g/dL (31-37) Red Cell Distribution Width 19.6 % (11.5-14.5) Platelet Count 144 x10^3/uL (140-400) Neutrophils (%) (Auto) 65 % (31-73) Lymphocytes (%) (Auto) 21 % (24-48) Monocytes (%) (Auto) 10 % (0-9) Eosinophils (%) (Auto) 3 % (0-3) Basophils (%) (Auto) 1 % (0-3) Neutrophils # (Auto) 2.6 x10^3uL (1.8-7.7) Lymphocytes # (Auto) 0.8 x10^3/uL (1.0-4.8) Monocytes # (Auto) 0.4 x10^3/uL (0.0-1.1) Eosinophils # (Auto) 0.1 x10^3/uL (0.0-0.7) Basophils # (Auto) 0.0 x10^3/uL (0.0-0.2) Sodium Level 136 mmol/L (136-145) Potassium Level 4.8 mmol/L (3.5-5.1) Chloride Level 99 mmol/L (98-107) Carbon Dioxide Level 29 mmol/L (21-32) Anion Gap 8 (6-14) Blood Urea Nitrogen 24 mg/dL (7-20) Creatinine 6.3 mg/dL (0.6-1.0) Estimated GFR (Cockcroft-Gault) 8.1 Glucose Level 91 mg/dL (70-99) Calcium Level 8.6 mg/dL (8.5-10.1) Amylase Level 56 U/L (25-115) Review of Systems Review of Systems Denies abdominal pain Denies head ache Assessment and Plan Assessmemt and Plan Assessment: Pancreatitis- Nausea, abdominal pain, diarrhea HTN, ESRD on HD - missed dialysis yesterday Chronic anemia GERD- non-compliant w/ PPI, EGD last week Cirrhosis H/o C Diff S/p cholecystectomy Plan: Pain management: IV Morphine 4mg prn Q2H, IV Hydromorphone 2mg Prn Q4H HD T,TH,S (Dialysis today) Labs w/ daily lipase PT/OT Continue renal diet Discharge Dispo: Discharge today if GI and Nephro agree GI and Nephro are following Comment Review of Relevant I have reviewed the following items tamika (where applicable) has been applied. Labs Laboratory Tests Test 02/25/19 12:20 02/25/19 20:48 02/25/19 21:54 02/26/19 03:02 Urine Collection Type U cath Urine Color Yellow Urine Clarity Clear Urine pH 8.0 Urine Specific [place] 1.010 Urine Protein 30 mg/dL (NEG-TRACE) Urine Glucose (UA) Negative mg/dL (NEG) Urine Ketones (Stick) Negative mg/dL (NEG) Urine Blood Small (NEG) Urine Nitrite Negative (NEG) Urine Bilirubin Negative (NEG) Urine Urobilinogen Dipstick 0.2 mg/dL (0.2 mg/dL) Urine Leukocyte Esterase Moderate (NEG) Urine RBC 1-2 /HPF (0-2) Urine WBC 11-20 /HPF (0-4) Urine Bacteria Few /HPF (0-FEW) Urine Opiates Screen Neg (NEG) Urine Methadone Screen Neg (NEG) Urine Barbiturates Neg (NEG) Urine Phencyclidine Screen Neg (NEG) Urine Amphetamine/Methamphetamine Neg (NEG) Urine Benzodiazepines Screen Pos (NEG) Urine Cocaine Screen Neg (NEG) Urine Cannabinoids Screen Neg (NEG) Urine Ethyl Alcohol Neg (NEG) Glucose (Fingerstick) 69 mg/dL (70-99) 103 mg/dL (70-99) 69 mg/dL (70-99) Test 02/26/19 03:55 02/26/19 08:32 02/26/19 11:54 02/26/19 17:00 White Blood Count 4.4 x10^3/uL (4.0-11.0) Red Blood Count 2.87 x10^6/uL (3.50-5.40) Hemoglobin 8.8 g/dL (12.0-15.5) Hematocrit 26.6 % (36.0-47.0) Mean Corpuscular Volume 93 fL (79-100) Mean Corpuscular Hemoglobin 31 pg (25-35) Mean Corpuscular Hemoglobin Concent 33 g/dL (31-37) Red Cell Distribution Width 19.5 % (11.5-14.5) Platelet Count 156 x10^3/uL (140-400) Sodium Level 132 mmol/L (136-145) Potassium Level 4.9 mmol/L (3.5-5.1) Chloride Level 96 mmol/L (98-107) Carbon Dioxide Level 28 mmol/L (21-32) Anion Gap 8 (6-14) Blood Urea Nitrogen 40 mg/dL (7-20) Creatinine 8.3 mg/dL (0.6-1.0) Estimated GFR (Cockcroft-Gault) 5.9 BUN/Creatinine Ratio 5 (6-20) Glucose Level 98 mg/dL (70-99) Calcium Level 9.0 mg/dL (8.5-10.1) Total Bilirubin 0.9 mg/dL (0.2-1.0) Aspartate Amino Transf (AST/SGOT) 44 U/L (15-37) Alanine Aminotransferase (ALT/SGPT) 15 U/L (14-59) Alkaline Phosphatase 155 U/L (46-116) Total Protein 6.8 g/dL (6.4-8.2) Albumin 2.3 g/dL (3.4-5.0) Albumin/Globulin Ratio 0.5 (1.0-1.7) Glucose (Fingerstick) 66 mg/dL (70-99) 60 mg/dL (70-99) 76 mg/dL (70-99) Test 02/27/19 04:00 02/27/19 08:21 02/27/19 11:14 White Blood Count 3.9 x10^3/uL (4.0-11.0) Red Blood Count 3.15 x10^6/uL (3.50-5.40) Hemoglobin 9.5 g/dL (12.0-15.5) Hematocrit 29.4 % (36.0-47.0) Mean Corpuscular Volume 93 fL (79-100) Mean Corpuscular Hemoglobin 30 pg (25-35) Mean Corpuscular Hemoglobin Concent 32 g/dL (31-37) Red Cell Distribution Width 19.6 % (11.5-14.5) Platelet Count 144 x10^3/uL (140-400) Neutrophils (%) (Auto) 65 % (31-73) Lymphocytes (%) (Auto) 21 % (24-48) Monocytes (%) (Auto) 10 % (0-9) Eosinophils (%) (Auto) 3 % (0-3) Basophils (%) (Auto) 1 % (0-3) Neutrophils # (Auto) 2.6 x10^3uL (1.8-7.7) Lymphocytes # (Auto) 0.8 x10^3/uL (1.0-4.8) Monocytes # (Auto) 0.4 x10^3/uL (0.0-1.1) Eosinophils # (Auto) 0.1 x10^3/uL (0.0-0.7) Basophils # (Auto) 0.0 x10^3/uL (0.0-0.2) Sodium Level 136 mmol/L (136-145) Potassium Level 4.8 mmol/L (3.5-5.1) Chloride Level 99 mmol/L (98-107) Carbon Dioxide Level 29 mmol/L (21-32) Anion Gap 8 (6-14) Blood Urea Nitrogen 24 mg/dL (7-20) Creatinine 6.3 mg/dL (0.6-1.0) Estimated GFR (Cockcroft-Gault) 8.1 Glucose Level 91 mg/dL (70-99) Calcium Level 8.6 mg/dL (8.5-10.1) Amylase Level 56 U/L (25-115) Glucose (Fingerstick) 73 mg/dL (70-99) 88 mg/dL (70-99) Laboratory Tests Test 02/26/19 17:00 02/27/19 04:00 02/27/19 08:21 02/27/19 11:14 Glucose (Fingerstick) 76 mg/dL (70-99) 73 mg/dL (70-99) 88 mg/dL (70-99) White Blood Count 3.9 x10^3/uL (4.0-11.0) Red Blood Count 3.15 x10^6/uL (3.50-5.40) Hemoglobin 9.5 g/dL (12.0-15.5) Hematocrit 29.4 % (36.0-47.0) Mean Corpuscular Volume 93 fL (79-100) Mean Corpuscular Hemoglobin 30 pg (25-35) Mean Corpuscular Hemoglobin Concent 32 g/dL (31-37) Red Cell Distribution Width 19.6 % (11.5-14.5) Platelet Count 144 x10^3/uL (140-400) Neutrophils (%) (Auto) 65 % (31-73) Lymphocytes (%) (Auto) 21 % (24-48) Monocytes (%) (Auto) 10 % (0-9) Eosinophils (%) (Auto) 3 % (0-3) Basophils (%) (Auto) 1 % (0-3) Neutrophils # (Auto) 2.6 x10^3uL (1.8-7.7) Lymphocytes # (Auto) 0.8 x10^3/uL (1.0-4.8) Monocytes # (Auto) 0.4 x10^3/uL (0.0-1.1) Eosinophils # (Auto) 0.1 x10^3/uL (0.0-0.7) Basophils # (Auto) 0.0 x10^3/uL (0.0-0.2) Sodium Level 136 mmol/L (136-145) Potassium Level 4.8 mmol/L (3.5-5.1) Chloride Level 99 mmol/L (98-107) Carbon Dioxide Level 29 mmol/L (21-32) Anion Gap 8 (6-14) Blood Urea Nitrogen 24 mg/dL (7-20) Creatinine 6.3 mg/dL (0.6-1.0) Estimated GFR (Cockcroft-Gault) 8.1 Glucose Level 91 mg/dL (70-99) Calcium Level 8.6 mg/dL (8.5-10.1) Amylase Level 56 U/L (25-115) Medications Current Medications Ondansetron HCl (Zofran) 4 mg 1X ONCE IV Last administered on 02/25/19at 11:18; Start 02/25/19 at 11:15; Stop 02/25/19 at 11:16; Status DC Fentanyl Citrate (Fentanyl 2ml Vial) 50 mcg 1X ONCE IV Last administered on 02/25/19at 11:18; Start 02/25/19 at 11:15; Stop 02/25/19 at 11:16; Status DC Multi-Ingredient Mouthwash/Gargle (Gi Cocktail) 20 ml 1X STAT PO Last administered on 02/25/19at 11:18; Start 02/25/19 at 11:06; Stop 02/25/19 at 11:11; Status DC Dicyclomine HCl (Bentyl) 10 mg 1X STAT PO Last administered on 02/25/19at 12:19; Start 02/25/19 at 11:16; Stop 02/25/19 at 11:17; Status DC Morphine Sulfate (Morphine Sulfate) 4 mg 1X ONCE IV Last administered on 02/25/19at 12:20; Start 02/25/19 at 12:15; Stop 02/25/19 at 12:16; Status DC Morphine Sulfate (Morphine Sulfate) 4 mg PRN Q2HR PRN IV PAIN Last administered on 02/25/19at 15:40; Start 02/25/19 at 13:30; Stop 02/26/19 at 13:29; Status DC Famotidine (Pepcid Vial) 20 mg QHS IVP Last administered on 02/25/19at 21:01; Start 02/25/19 at 21:00; Stop 02/26/19 at 12:34; Status DC Hydromorphone HCl (Dilaudid) 2 mg PRN Q4HRS PRN IV PAIN Last administered on 02/27/19at 04:12; Start 02/25/19 at 16:00 Dextrose (Dextrose 50%-Water Syringe) 12.5 gm PRN Q15MIN PRN IV SEE COMMENTS Last administered on 02/26/19at 09:43; Start 02/25/19 at 21:00 Pharmacy Consult (C.diff Med Screen By Rx) 1 each 1X ONCE MC Last administered on 02/26/19at 09:00; Start 02/26/19 at 09:00; Stop 02/26/19 at 09:01; Status DC Pantoprazole Sodium (Protonix) 40 mg DAILYAC PO Last administered on 02/27/19at 08:19; Start 02/26/19 at 13:00 Info (PHARMACY MONITORING -- do not chart) 1 each PRN DAILY PRN MC SEE COMMENTS; Start 02/26/19 at 13:15 Info (PHARMACY MONITORING -- do not chart) 1 each PRN DAILY PRN MC SEE COMMENTS; Start 02/26/19 at 13:15; Status UNV Info (PHARMACY MONITORING -- do not chart) 1 each PRN DAILY PRN MC SEE COMMENTS; Start 02/26/19 at 13:15; Status UNV Sodium Chloride 1,000 ml @ 1,000 mls/hr Q1H PRN IV hypotension; Start 02/26/19 at 13:08; Stop 02/26/19 at 19:07; Status DC Albumin Human 200 ml @ 200 mls/hr 1X PRN PRN IV Hypotension; Start 02/26/19 at 13:15; Stop 02/26/19 at 19:14; Status DC Sodium Chloride 1,000 ml @ 400 mls/hr Q2H30M PRN IV PATENCY; Start 02/26/19 at 13:08; Stop 02/27/19 at 01:07; Status DC Info (PHARMACY MONITORING -- do not chart) 1 each PRN DAILY PRN MC SEE COMMENTS; Start 02/26/19 at 13:15; Status UNV Info (PHARMACY MONITORING -- do not chart) 1 each PRN DAILY PRN MC SEE COMMENTS; Start 02/26/19 at 13:15; Status UNV Active Scripts Active Protonix (Pantoprazole Sodium) 20 Mg Tablet.dr 40 Tab PO DAILY Vancomycin Hcl 500 Mg Vial 125 Mg PO [id number] 13 Days Culturelle (Lactobacillus Rhamnosus Gg) 1 Each Cap.sprink 1 Cap PO BID 14 Days Reported Aleve Pm Caplet (Naproxen Na-Diphenhydramin HCl) 1 Each Tablet 1 Each PO HS PRN Nephro-Edward Tablet (Folic Acid/Vitamin B Comp W-C) 0.8 Mg Tablet 1 Tab PO DAILY Calcium Acetate 667 Mg Tablet 667 Mg PO TIDWMEALS Carvedilol 25 Mg Tablet 25 Mg PO BID Folic Acid 1 Mg Tablet 1 Mg PO DAILY Miralax (Polyethylene Glycol 3350) 17 Gm Powd.pack 1 Packet PO PRN DAILY PRN Amlodipine Besylate 10 Mg Tablet 10 Mg PO DAILY Vitals/I & O Vital Sign - Last 24 Hours 02/26/19 02/26/19 02/26/19 02/26/19 17:08 19:00 19:45 21:03 Temp 97.7 97.5 97.7 97.5 Pulse 90 89 Resp 17 20 22 B/P (MAP) 143/68 (93) 151/66 (94) Pulse Ox 95 96 O2 Delivery Room Air Room Air Room Air Room Air 02/26/19 02/27/19 02/27/19 02/27/19 23:00 03:00 04:12 04:47 Temp 98.1 98.2 98.1 98.2 Pulse 83 85 Resp 18 18 14 16 B/P (MAP) 129/65 (86) 129/72 (91) Pulse Ox 96 97 O2 Delivery Room Air Room Air Room Air Room Air 02/27/19 02/27/19 07:55 11:22 Temp 97.7 97.6 97.7 97.6 Pulse 82 88 Resp 17 19 B/P (MAP) 134/74 (94) 136/57 (83) Pulse Ox 94 98 O2 Delivery Room Air Room Air Intake and Output 02/26/19 02/26/19 02/27/19 15:00 23:00 07:00 Intake Total 0 ml 200 ml 500 ml Output Total 0 ml Balance 0 ml 200 ml 500 ml CASTLE,NIAL K III DO February 27, 2019 12:17
--- NOTE | 2019-02-27 12:24 | NUR ---
SW following pt for anticipated dc needs. Chart reviewed. Pt lives at home alone and is on HD. Pt dialyzes at [facility] on Saturday, and Saturday at 1045. No other needs noted.
--- NOTE | 2019-02-27 15:02 | PDOC ---
G I PROGRESS NOTE Subjective Ate well w/o pain. Eager to go home. Physical Exam Lungs clear. RRR Abdomen soft, not tender nor distended. Review of Relevant I have reviewed the following items tamika (where applicable) has been applied. Labs Laboratory Tests Test 02/25/19 20:48 02/25/19 21:54 02/26/19 03:02 02/26/19 03:55 Glucose (Fingerstick) 69 mg/dL (70-99) 103 mg/dL (70-99) 69 mg/dL (70-99) White Blood Count 4.4 x10^3/uL (4.0-11.0) Red Blood Count 2.87 x10^6/uL (3.50-5.40) Hemoglobin 8.8 g/dL (12.0-15.5) Hematocrit 26.6 % (36.0-47.0) Mean Corpuscular Volume 93 fL (79-100) Mean Corpuscular Hemoglobin 31 pg (25-35) Mean Corpuscular Hemoglobin Concent 33 g/dL (31-37) Red Cell Distribution Width 19.5 % (11.5-14.5) Platelet Count 156 x10^3/uL (140-400) Sodium Level 132 mmol/L (136-145) Potassium Level 4.9 mmol/L (3.5-5.1) Chloride Level 96 mmol/L (98-107) Carbon Dioxide Level 28 mmol/L (21-32) Anion Gap 8 (6-14) Blood Urea Nitrogen 40 mg/dL (7-20) Creatinine 8.3 mg/dL (0.6-1.0) Estimated GFR (Cockcroft-Gault) 5.9 BUN/Creatinine Ratio 5 (6-20) Glucose Level 98 mg/dL (70-99) Calcium Level 9.0 mg/dL (8.5-10.1) Total Bilirubin 0.9 mg/dL (0.2-1.0) Aspartate Amino Transf (AST/SGOT) 44 U/L (15-37) Alanine Aminotransferase (ALT/SGPT) 15 U/L (14-59) Alkaline Phosphatase 155 U/L (46-116) Total Protein 6.8 g/dL (6.4-8.2) Albumin 2.3 g/dL (3.4-5.0) Albumin/Globulin Ratio 0.5 (1.0-1.7) Test 02/26/19 08:32 02/26/19 11:54 02/26/19 17:00 02/27/19 04:00 Glucose (Fingerstick) 66 mg/dL (70-99) 60 mg/dL (70-99) 76 mg/dL (70-99) White Blood Count 3.9 x10^3/uL (4.0-11.0) Red Blood Count 3.15 x10^6/uL (3.50-5.40) Hemoglobin 9.5 g/dL (12.0-15.5) Hematocrit 29.4 % (36.0-47.0) Mean Corpuscular Volume 93 fL (79-100) Mean Corpuscular Hemoglobin 30 pg (25-35) Mean Corpuscular Hemoglobin Concent 32 g/dL (31-37) Red Cell Distribution Width 19.6 % (11.5-14.5) Platelet Count 144 x10^3/uL (140-400) Neutrophils (%) (Auto) 65 % (31-73) Lymphocytes (%) (Auto) 21 % (24-48) Monocytes (%) (Auto) 10 % (0-9) Eosinophils (%) (Auto) 3 % (0-3) Basophils (%) (Auto) 1 % (0-3) Neutrophils # (Auto) 2.6 x10^3uL (1.8-7.7) Lymphocytes # (Auto) 0.8 x10^3/uL (1.0-4.8) Monocytes # (Auto) 0.4 x10^3/uL (0.0-1.1) Eosinophils # (Auto) 0.1 x10^3/uL (0.0-0.7) Basophils # (Auto) 0.0 x10^3/uL (0.0-0.2) Sodium Level 136 mmol/L (136-145) Potassium Level 4.8 mmol/L (3.5-5.1) Chloride Level 99 mmol/L (98-107) Carbon Dioxide Level 29 mmol/L (21-32) Anion Gap 8 (6-14) Blood Urea Nitrogen 24 mg/dL (7-20) Creatinine 6.3 mg/dL (0.6-1.0) Estimated GFR (Cockcroft-Gault) 8.1 Glucose Level 91 mg/dL (70-99) Calcium Level 8.6 mg/dL (8.5-10.1) Amylase Level 56 U/L (25-115) Test 02/27/19 08:21 02/27/19 11:14 Glucose (Fingerstick) 73 mg/dL (70-99) 88 mg/dL (70-99) Laboratory Tests Test 02/26/19 17:00 02/27/19 04:00 02/27/19 08:21 02/27/19 11:14 Glucose (Fingerstick) 76 mg/dL (70-99) 73 mg/dL (70-99) 88 mg/dL (70-99) White Blood Count 3.9 x10^3/uL (4.0-11.0) Red Blood Count 3.15 x10^6/uL (3.50-5.40) Hemoglobin 9.5 g/dL (12.0-15.5) Hematocrit 29.4 % (36.0-47.0) Mean Corpuscular Volume 93 fL (79-100) Mean Corpuscular Hemoglobin 30 pg (25-35) Mean Corpuscular Hemoglobin Concent 32 g/dL (31-37) Red Cell Distribution Width 19.6 % (11.5-14.5) Platelet Count 144 x10^3/uL (140-400) Neutrophils (%) (Auto) 65 % (31-73) Lymphocytes (%) (Auto) 21 % (24-48) Monocytes (%) (Auto) 10 % (0-9) Eosinophils (%) (Auto) 3 % (0-3) Basophils (%) (Auto) 1 % (0-3) Neutrophils # (Auto) 2.6 x10^3uL (1.8-7.7) Lymphocytes # (Auto) 0.8 x10^3/uL (1.0-4.8) Monocytes # (Auto) 0.4 x10^3/uL (0.0-1.1) Eosinophils # (Auto) 0.1 x10^3/uL (0.0-0.7) Basophils # (Auto) 0.0 x10^3/uL (0.0-0.2) Sodium Level 136 mmol/L (136-145) Potassium Level 4.8 mmol/L (3.5-5.1) Chloride Level 99 mmol/L (98-107) Carbon Dioxide Level 29 mmol/L (21-32) Anion Gap 8 (6-14) Blood Urea Nitrogen 24 mg/dL (7-20) Creatinine 6.3 mg/dL (0.6-1.0) Estimated GFR (Cockcroft-Gault) 8.1 Glucose Level 91 mg/dL (70-99) Calcium Level 8.6 mg/dL (8.5-10.1) Amylase Level 56 U/L (25-115) Vitals/I & O Vital Sign - Last 24 Hours 02/26/19 02/26/19 02/26/19 02/26/19 17:08 19:00 19:45 21:03 Temp 97.7 97.5 97.7 97.5 Pulse 90 89 Resp 17 20 22 B/P (MAP) 143/68 (93) 151/66 (94) Pulse Ox 95 96 O2 Delivery Room Air Room Air Room Air Room Air 02/26/19 02/27/19 02/27/19 02/27/19 23:00 03:00 04:12 04:47 Temp 98.1 98.2 98.1 98.2 Pulse 83 85 Resp 18 18 14 16 B/P (MAP) 129/65 (86) 129/72 (91) Pulse Ox 96 97 O2 Delivery Room Air Room Air Room Air Room Air 02/27/19 02/27/19 02/27/19 07:55 08:00 11:22 Temp 97.7 97.6 97.7 97.6 Pulse 82 88 Resp 17 19 B/P (MAP) 134/74 (94) 136/57 (83) Pulse Ox 94 98 O2 Delivery Room Air Room Air Room Air Intake and Output 02/26/19 02/26/19 02/27/19 14:59 22:59 06:59 Intake Total 0 ml 200 ml 500 ml Output Total 0 ml Balance 0 ml 200 ml 500 ml Assessment Abdominal pain, pancreatitis? Better regardless. Seems related to dialysis or lack thereof. Plan of Care Note Continue as now. OK to dismiss at your discretion. HAYDER MARLOW MD February 27, 2019 15:02
--- NOTE | 2019-02-27 17:20 | NUR ---
Discharge Note: CESAR AGEE [address] Discharge instructions and discharge home medications reviewed with patient and a copy given. All questions have been answered and understanding verbalized. The following instructions and handouts were given: Hemodialysis tomorrow as scheduled. Hyperkalemia handout. Do not take amlodipine and carvedilol prior to dialysis. FF up with PCP in a week. Discontinued lines and drains: peripheral IV intact, patient tolerated removal, no complications noted. Patient discharged to home accompanied by family member via wheelchair at 1715.
--- NOTE | 2019-02-27 20:36 | DS ---
DATE OF DISCHARGE: 02/27/2019 ADMISSION DIAGNOSES: Hyperkalemia, pancreatitis and end-stage renal disease. DISCHARGE DIAGNOSES: Resolving hyperkalemia, resolving pancreatitis, alcohol abuse (she quit drinking now, she was drinking gin), chronic back pain, edema, previous gastrointestinal bleed, end-stage renal disease on dialysis, volume overload, Clostridium difficile, cholelithiasis, obesity, arteriovenous shunt. CONSULTS: Nephrology. PROCEDURES: Dialysis. HOSPITAL COURSE: The patient is a pleasant middle-aged female who is on dialysis. She has been drinking gin. Basically, she presented with abdominal pain. She was noted to have pancreatitis with elevations of her lipase. She also had hyperkalemia of 5.7. She was admitted. We dialyzed her, gave her IV fluids and p.r.n. antiemetics. Over the past couple of days, she has returned to baseline. This morning, she was up, eaten scrambled eggs. States she wants to go home. Her heart tones were normal. Her lungs were clear. We plan to discharge with close outpatient followup. DISPOSITION: Home. ACTIVITY: As tolerated. DIET: Renal. MEDICATIONS: Please see the MRAD. I did just resume her home meds and we made no changes. TOTAL TIME: 31 minutes. VIKAS GAMEZ DO DR: CAMMIE/danial JOB#: [id number] / [id number]
== END 2019-02-27 17:00 | disposition home or self-care (01) | DRG 438 ==
LOC: ER 10:27 → ED HOLD 12:30 → 6 SOUTH 18:47
PROVIDERS: ADMIT Internal Medicine; ATTEND Internal Medicine
PROC: 5A1D70Z Performance of Urinary Filtration, Intermittent, Less than 6 Hours Per Day (ICD-10-PCS; principal; 2019-02-26)
DX: K85.20 Alcohol induced acute pancreatitis without necrosis or infection (principal); N18.6 End stage renal disease; I12.0 Hypertensive chronic kidney disease with stage 5 chronic kidney disease or end stage renal disease; R18.8 Other ascites; E87.5 Hyperkalemia; D64.9 Anemia, unspecified; E11.22 Type 2 diabetes mellitus with diabetic chronic kidney disease; K74.60 Unspecified cirrhosis of liver; E78.00 Pure hypercholesterolemia, unspecified; M06.9 Rheumatoid arthritis, unspecified; F10.10 Alcohol abuse, uncomplicated; E78.5 Hyperlipidemia, unspecified; K21.9 Gastro-esophageal reflux disease without esophagitis; B19.20 Unspecified viral hepatitis C without hepatic coma; E87.70 Fluid overload, unspecified; E21.3 Hyperparathyroidism, unspecified; G89.29 Other chronic pain; E66.9 Obesity, unspecified; Z91.19 Patient's noncompliance with other medical treatment and regimen; Z91.15 Patient's noncompliance with renal dialysis; Z99.2 Dependence on renal dialysis; Z90.49 Acquired absence of other specified parts of digestive tract; Z87.891 Personal history of nicotine dependence; Z88.6 Allergy status to analgesic agent; Z82.49 Family history of ischemic heart disease and other diseases of the circulatory system; Z90.711 Acquired absence of uterus with remaining cervical stump; Z87.19 Personal history of other diseases of the digestive system; Z68.34 Body mass index [BMI] 34.0-34.9, adult
CPT/HCPCS: 36415; 74176; 80048; 80053; 80307; 81001; 82150; 82962; 83690; 84484; 85025; 85027; 93005; 96374; 96375; 96376; J1170; J2270; J2405; J3010; J3490; J7042; 97535; 99285-25

== ENCOUNTER 2019-06-30 22:13 | Inpatient (IN) | payer OTHER, MEDICAID ==
[~2019-06-30] VITALS: Ht 157.5 cm; Wt 93.2 kg
[~2019-06-30 22:13] MED LIST changes: +NAPR1TAB25 PO; -PANT40TA5 PO; +PANT40TA77 PO
[2019-06-30 22:53] LABS: PROTHROMBIN TIME PATIENT 14.5 SEC (11.7-14.0)
[2019-06-30] MEDS ORDERED: PANTOPRAZOLE IV PUSH 40 MG VIAL. IVP ONE ×2 (23:00→23:45)
[2019-06-30] MEDS ORDERED: ONDANSETRON PF 4 MG/2 ML VIAL. IV ONE (23:00)
[2019-06-30 23:15] LABS: BASO % 1 % (0-3); EOS # 0.1 x10^3/uL (0.0-0.7); EOS % 2 % (0-3); LYMPH # 1.8 x10^3/uL (1.0-4.8); LYMPH % 21 % (24-48); MEAN CORPUSCULAR HEMOGLOBIN 34 pg (25-35); MEAN CORPUSCULAR HGB CONC 34 g/dL (31-37); MEAN CORPUSCULAR VOLUME 100 fL (79-100); MONO # 0.9 x10^3/uL (0.0-1.1); MONO % 10 % (0-9); NEUT # 5.8 x10^3/uL (1.8-7.7); NEUT % 67 % (31-73); PLATELET COUNT 233 x10^3/uL (140-400); RED BLOOD COUNT 1.33 x10^6/uL (3.50-5.40); RED CELL DISTRIBUTION WIDTH 21.8 % (11.5-14.5); WHITE BLOOD COUNT 8.7 x10^3/uL (4.0-11.0)
[2019-06-30 23:17] LABS: GASTRIC OB PAT POSITIVE (NEG)
[2019-06-30 23:19] LABS: HEMOGLOBIN 4.5 g/dL (12.0-15.5)
[2019-06-30 23:20] LABS: HEMATOCRIT 13.4 % (36.0-47.0)
[2019-06-30 23:24] LABS: FECAL OB PT POSITIVE (NEG)
[2019-06-30 23:27] LABS: CALCIUM 8.1 mg/dL (8.5-10.1); CREATININE 7.9 mg/dL (0.6-1.0); GFR 6.2; POTASSIUM 4.1 mmol/L (3.5-5.1)
[2019-06-30 23:32] LABS: ALBUMIN 2.3 g/dL (3.4-5.0); ALBUMIN/GLOBULIN RATIO 0.5 (1.0-1.7); TOTAL BILIRUBIN 0.4 mg/dL (0.2-1.0); TOTAL PROTEIN 6.5 g/dL (6.4-8.2)
[2019-06-30 23:57] LABS: ANISOCYTOSIS MOD; PLT ESTIMATE ADEQUATE (ADEQUATE); POLYCHROMASIA SLIGHT
[2019-07-01] VITALS (31 sets, daily range): BP systolic 95–180; BP diastolic 40–88
[2019-07-01] MEDS ORDERED: LIDOCAINE 2% 20 ML VIAL. ONE (01:27)
[2019-07-01] MEDS ORDERED: 0.9 % SOD CHL for STERILE FIELD 10 ML DISP.SYRIN. ONE ×2 (01:27→03:34)
[2019-07-01] MEDS ORDERED: fentaNYL PF VIAL 100 MCG/2 ML VIAL IM ONE (01:30)
--- NOTE | 2019-07-01 01:44 | PHYS DOC ---
Past Medical History Past Medical History: Diabetes-Type II, High Cholesterol, Heart Disease, Hypertension, Renal Failure Additional Past Medical Histor: DIARRHEA Past Surgical History: Cholecystectomy Additional Past Surgical Histo: RT KNEE, SHUNT RIGHT CHEST, dialysis graft Alcohol Use: Occasionally Drug Use: None Adult General Chief Complaint Chief Complaint: HEMATEMESIS/VOMITING BLOOD [facility] HPI Patient is a 64 year old female with history of end stage renal disease on hemodialysis previous GI bleeding who presents with complaining of vomiting blood. Patient states she had 2 episodes of vomiting blood prior to arrival to ER as a dark colored blood about half cup of blood during episodes of vomiting. Patient states she has had episodes of black stool for the last 5 days that usually happen once or twice a day without vomiting until today. Patient had history of blood transfusion and GI bleed previously. Patient denies chest pain, shortness of breath, fever and chills, focal neuro deficit. Patient complaining of chronic back pain and mild abdominal pain. Review of Systems Review of Systems Constitutional: Denies fever or chills [] Eyes: Denies change in visual acuity, redness, or eye pain [] HENT: Denies nasal congestion or sore throat [] Respiratory: Denies cough or shortness of breath [] Cardiovascular: No additional information not addressed in HPI [] GI: Denies abdominal pain, nausea, vomiting, bloody stools or diarrhea [] : Denies dysuria or hematuria [] Musculoskeletal: Denies back pain or joint pain [] Integument: Denies rash or skin lesions [] Neurologic: Denies headache, focal weakness or sensory changes [] Endocrine: Denies polyuria or polydipsia [] All other systems were reviewed and found to be within normal limits, except as documented in this note. Current Medications Current Medications Current Medications Medications (Trade) Dose Ordered Sig/Kimberly Start Time Stop Time Status Last Admin Dose Admin Ondansetron HCl (Zofran) 4 mg 1X ONCE 06/30/19 23:00 06/30/19 23:01 DC 07/01/19 05:25 4 MG Pantoprazole Sodium (PROTONIX VIAL for IV PUSH) 40 mg 1X ONCE 06/30/19 23:00 06/30/19 23:29 DC Allergies Allergies Allergies Coded Allergies Type Severity Reaction Last Updated Verified I S O L A T I O N *CONTACT* Allergy Unknown 11/04/18 Yes acetaminophen Adverse Reaction Intermediate Nausea and Vomiting 02/16/19 Yes Physical Exam Physical Exam Constitutional: Well developed, well nourished, no acute distress, non-toxic appearance. [] HENT: Normocephalic, atraumatic, bilateral external ears normal, oropharynx moist, no oral exudates, nose normal. [] Eyes: PERRLA, EOMI, conjunctiva normal, no discharge. [] Neck: Normal range of motion, no tenderness, supple, no stridor. [] Cardiovascular:Heart rate regular rhythm, no murmur [] Lungs & Thorax: Bilateral breath sounds clear to auscultation [] Abdomen: Bowel sounds normal, soft, no tenderness, no masses, no pulsatile masses. [] Skin: Warm, dry, no erythema, no rash. [] Back: No tenderness, no CVA tenderness. [] Extremities: No tenderness, no cyanosis, no clubbing, ROM intact, no edema. [] Neurologic: Alert and oriented X 3, normal motor function, normal sensory function, no focal deficits noted. [] Psychologic: Affect normal, judgement normal, mood normal. [] Current Patient Data Vital Signs Vital Signs Date Time Temp Pulse Resp B/P (MAP) Pulse Ox O2 Delivery O2 Flow Rate FiO2 06/30/19 22:13 98.2 90 20 121/77 (92) 95 Room Air 98.2 Lab Values Laboratory Tests Test 06/30/19 22:35 06/30/19 22:55 06/30/19 23:00 Prothrombin Time 14.5 SEC (11.7-14.0) H Prothrombin Time INR 1.2 (0.8-1.1) H Activated Partial Thromboplast Time 25 SEC (24-38) Gastric Fluid Occult Blood Positive (NEG) Stool Occult Blood Positive (NEG) White Blood Count 8.7 x10^3/uL (4.0-11.0) Red Blood Count 1.33 x10^6/uL (3.50-5.40) L Hemoglobin 4.5 g/dL (12.0-15.5) *L Hematocrit 13.4 % (36.0-47.0) *L Mean Corpuscular Volume 100 fL (79-100) Mean Corpuscular Hemoglobin 34 pg (25-35) Mean Corpuscular Hemoglobin Concent 34 g/dL (31-37) Red Cell Distribution Width 21.8 % (11.5-14.5) H Platelet Count 233 x10^3/uL (140-400) Neutrophils (%) (Auto) 67 % (31-73) Lymphocytes (%) (Auto) 21 % (24-48) L Monocytes (%) (Auto) 10 % (0-9) H Eosinophils (%) (Auto) 2 % (0-3) Basophils (%) (Auto) 1 % (0-3) Neutrophils # (Auto) 5.8 x10^3/uL (1.8-7.7) Lymphocytes # (Auto) 1.8 x10^3/uL (1.0-4.8) Monocytes # (Auto) 0.9 x10^3/uL (0.0-1.1) Eosinophils # (Auto) 0.1 x10^3/uL (0.0-0.7) Basophils # (Auto) 0.0 x10^3/uL (0.0-0.2) Platelet Estimate Adequate (ADEQUATE) Polychromasia Slight Anisocytosis Mod Sodium Level 132 mmol/L (136-145) L Potassium Level 4.1 mmol/L (3.5-5.1) Chloride Level 91 mmol/L (98-107) L Carbon Dioxide Level 29 mmol/L (21-32) Anion Gap 12 (6-14) Blood Urea Nitrogen 78 mg/dL (7-20) H Creatinine 7.9 mg/dL (0.6-1.0) H Estimated GFR (Cockcroft-Gault) 6.2 BUN/Creatinine Ratio 10 (6-20) Glucose Level 185 mg/dL (70-99) H Calcium Level 8.1 mg/dL (8.5-10.1) L Total Bilirubin 0.4 mg/dL (0.2-1.0) Aspartate Amino Transferase (AST) 54 U/L (15-37) H Alanine Aminotransferase (ALT) 19 U/L (14-59) Alkaline Phosphatase 220 U/L (46-116) H Total Protein 6.5 g/dL (6.4-8.2) Albumin 2.3 g/dL (3.4-5.0) L Albumin/Globulin Ratio 0.5 (1.0-1.7) L Laboratory Tests 06/30/19 23:00 Laboratory Tests 06/30/19 23:00 EKG EKG [] Radiology/Procedures Radiology/Procedures [][facility] [address] [place] [address] IMAGING REPORT Signed PATIENT: CESAR AGEE AACCOUNT: [id number] : 1955 LOCATION: [address] [place] [address] AGE: 64 SEX: F EXAM STATUS: ADM IN ORD. PHYSICIAN: RNEY NAVARRO MD REASON: abdominal pain and GI bleeding PROCEDURE: CT ABDOMEN PELVIS WO CONTRAST CT abdomen pelvis without contrast. HISTORY: Abdominal pain, GI bleeding CT scan of the abdomen and pelvis was done without contrast. There is mild linear atelectasis in the lung bases without other infiltrates. A liver lesion is not identified. The patient's had a cholecystectomy. Spleen is unremarkable. There is a 9 mm nodule in the left adrenal gland, an adrenal adenoma is most likely, the pattern is unchanged compared to the prior studies. There is no mass or hydronephrosis in the kidneys. There is a right renal calculus without change. Stomach is distended. There is no bowel obstruction. There is a hernia at the umbilicus. Appendix is normal. Patient's had a hysterectomy. There are degenerative change and facet arthritis in the lumbar spine. There is spinal stenosis at L4-5. There is a fracture with possible bony destructive at the pubic bone. There is a fracture the inferior pubic ramus. Pubic bone has changed compared to the CT from February. There are degenerative and hypertrophic changes in the lumbar spine. IMPRESSION: 1. Comminuted fracture versus pathologic fracture at the pubic bone on the right. 2. Distended stomach. 3. No other acute finding in the abdomen or pelvis. PQRS Compliance Statement: One or more of the following individualized dose reduction techniques were utilized for this examination: 1. Automated exposure control 2. Adjustment of the mA and/or kV according to patient size 3. Use of iterative reconstruction technique Electronically signed by: Darell Foss MD (07/01/2019 2:24 AM) [facility] DICTATED and SIGNED BY: DARELL FOSS MD DATE: 07/01/19 0224 Course & Med Decision Making Course & Med Decision Making Pertinent Labs and Imaging studies reviewed. (See chart for details) Evaluation of patient in ER showed 64-year-old female patient with complaining of episode of melena for 5 days and 2 episodes of hematemesis today. Patient had a stable vital signs. Tenderness of abdomen. Patient had 1 episodes of small amount of hematemesis and melena while she was in ER without drop of blood pressure or tachycardia. Patient did not have IV access with multiple tries. I tried to insert central line in right shoulder pain and unable to advance the guidewire in the jugular vein. On-call anesthesiologist Dr. Corral was consulted at 0330 and presented to ER and was not able to insert a central line also. Patient had another episode of hematemesis and melena without drop of b lood pressure or having tachycardia. Finally patient had peripheral IV line in the right AC with 18-gauge and had Protonix bolus and drip and blood transfusion. Patient did not get IV fluids because of renal failure on dialysis and lack of hypotension. She was alert and oriented while she was in ER. Patient was admitted to ICU. 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 Dennis was consulted at 00 31.Patient requiring admission for further evaluation and treatment. Discussed with Dr. Jacobo who is in agreement with admission. Discussed findings and plan with patient and family, who acknowledge understanding and agreement. Dragon Disclaimer Dragon Disclaimer This electronic medical record was generated, in whole or in part, using a voice recognition dictation system. Departure Departure Impression: Primary Impression: Upper GI bleeding Additional Impressions: Anemia ESRD (end stage renal disease) on dialysis Hyponatremia Hyperglycemia Hypoalbuminemia Disposition: ADMITTED INPATIENT Admitting Physician: BRYANT (Dr. Jacobo accepted admission) Condition: GUARDED Referrals: NO PCP (PCP) Critical Care Time Critical care time was 150 minutes exclusive of procedures. CENTRAL LINE INSERTION CENTRAL LINE INSERTION: Location: Right jugular vein Date of Insertion: 07/01/2019 at 0315 PICC Land Survey Technician?: No Central Line Indications: Poor peripheral access Hand Hygiene Performed?: Yes Maximal sterile barriers used: Mask, Sterile gown, Sterile gloves, Large sterile drape, Cap Skin Preperation: (Check All): Chlorhexidine gluconate Prep dry @ skin punture?: Yes Patient is less than 2 months: No Known allergy to CHG?: No Insertion Site: Jugular Antimicrobial catheter used?: No Central Line catheter type: Non-tunneled Successful Placement?: No (was able to puncture jugular vein but was not able to advaced the guide w) Problem Qualifiers Additional Impressions: Anemia Anemia type: unspecified type Qualified Codes: D64.9 - Anemia, unspecified RENY NAVARRO MD Jul 01, 2019 01:44
--- NOTE | 2019-07-01 02:27 | RAD ---
CT abdomen pelvis without contrast. HISTORY: Abdominal pain, GI bleeding CT scan of the abdomen and pelvis was done without contrast. There is mild linear atelectasis in the lung bases without other infiltrates. A liver lesion is not identified. The patient's had a cholecystectomy. Spleen is unremarkable. There is a 9 mm nodule in the left adrenal gland, an adrenal adenoma is most likely, the pattern is unchanged compared to the prior studies. There is no mass or hydronephrosis in the kidneys. There is a right renal calculus without change. Stomach is distended. There is no bowel obstruction. There is a hernia at the umbilicus. Appendix is normal. Patient's had a hysterectomy. There are degenerative change and facet arthritis in the lumbar spine. There is spinal stenosis at L4-5. There is a fracture with possible bony destructive at the pubic bone. There is a fracture the inferior pubic ramus. Pubic bone has changed compared to the CT from February. There are degenerative and hypertrophic changes in the lumbar spine. IMPRESSION: 1. Comminuted fracture versus pathologic fracture at the pubic bone on the right. 2. Distended stomach. 3. No other acute finding in the abdomen or pelvis. PQRS Compliance Statement: One or more of the following individualized dose reduction techniques were utilized for this examination: 1. Automated exposure control 2. Adjustment of the mA and/or kV according to patient size 3. Use of iterative reconstruction technique Electronically signed by: Darell Foss MD (07/01/2019 2:24 AM) [facility]
[2019-07-01] MEDS ORDERED: PANTOPRAZOLE IV PUSH 40 MG VIAL. IVP ONE (05:19)
[2019-07-01] MEDS ORDERED: ONDANSETRON PF 4 MG/2 ML VIAL. ONE (05:20)
[2019-07-01] MEDS: PANTOPRAZOLE SODIUM IV DRIP 80 MG in IV NORMAL SALINE 100ML 100 ML IV SCH ×2 (05:25→17:35)
[2019-07-01 05:35] LABS: RED BLOOD COUNT 1.02 x10^6/uL (3.50-5.40); RED CELL DISTRIBUTION WIDTH 21.9 % (11.5-14.5); WHITE BLOOD COUNT 7.1 x10^3/uL (4.0-11.0)
[2019-07-01 05:53] LABS: HEMOGLOBIN 3.5 g/dL (12.0-15.5)
[2019-07-01 05:54] LABS: HEMATOCRIT 10.3 % (36.0-47.0)
--- NOTE | 2019-07-01 07:22 | NUR ---
Pt arrived at 0550 to ICU on bed brought by 2 ED nurses. Transferred to bed in room 111 with 4x assist. Pt sleeping but arousable. A&Ox4. Pt receiving 1st unit of blood and Protonix IV at this time. VSS. Coarseness auscultated on expiration in all lobes. SPO2 99% on RA. Received call of critical Hgb, HCT. MD not paged; tranfusion order already in place. Pt has had no emesis or bowel movements since arrival to ICU. Pt oriented to room and call light is within reach. Received call from Dr. Medeiros. This RN updated MD on pt status. Received order to tranfuse blood until Hgb >7. Order entered into system. Will pass on to oncoming shift.
--- NOTE | 2019-07-01 08:37 | NUR ---
SS following for discharge planning. SS reviewed pt chart. Pt is from home and is currently on room air. Pt has OPHD in the community at [facility], Saturday, , and Saturdays. No discharge needs noted at this time. SS will continue to follow for discharge planning.
--- NOTE | 2019-07-01 09:39 | PDOC2 ---
GI CONSULT Reason For Consult: UGI bleed HPI: HPI: 64 y/o female known to us. Have seen several times in the past for diarrhea, n/v, abd pain, hematemesis, and melena - often after missing dialysis. D/w nurse and reviewed chart - admitted this time w/ hematemesis and melena. Has chronic anemia (hgb averages in 8-9 range); this time, Hgb 4.5 to 3.5 - has since transfused two units pRBCs, currently awaiting recheck of labs. Gastric and stool occult positive. Per pt (who falls asleep during interview - ill since Saturday, not sure about precipitating events, can't tell me when bleeding began, didn't go to dialysis Saturday or Saturday. H/o GERD - issues w/ PPI compliance in the past. Unclear if she takes now, but does recall "a little yellow one" (?pantoprazole). EGD 04/2016 (for melena/anemia): Grade 1 esophagitis, small MW tear w/o meaningful bleeding, alcoholic gastritis. EGD 10/2018 (for hematemesis/melena): desquamating changes 25-35cm due to emesis, friability and erosions at 35cm/GEJ c/w with Grade B reflux esophagitis, no varices or MW tear, no gastric varices, no hiatal hernia, diffuse nodularity throughout stomach, 1 cm ulcer posterior wall mid-antrum with hematin staining - no clot, visible vessel, or active bleeding (and negative for H. pylori), non- specific erythema in duodenal bulb. EGD 02/16/19 (for hematemesis/melena): partly healed esophagitis distally, no varices, 8-10mm ulcer posterior wall prepyloric area similar to October - no s igns of recent bleeding and no varices, patchy erythema in duodenal bulb, second portion normal. Gastrin level very minimally elevated - suspected non- compliance w/ PPI. I wrote her a prescription for pantoprazole 40mg QD w/ refills. Last colonoscopy reportedly normal <10 years ago @ . H/o cirrhosis - heavy alcohol use (two encounters ago told me was drinking 1/2 pint of gin daily) and Hep C (genotype 1a - possibly failed treatment in the past). H/o C Diff. S/p cholecystectomy 02/2018 (Dr. Rowe). PMH: PMH: HTN, HLD, ESRD on HD, GERD, , C Diff, cirrhosis, RA, DM, hyperparathyroidism, ?pancreatitis partial hysterectomy (lap assisted/vaginal), cholecystectomy FH: Family History: No pertinent hx, DM Social History: Smoke: No ALCOHOL: heavy Drugs: None ROS: Difficult to obtain. Vitals: Vitals: Vital Signs Date Time Temp Pulse Resp B/P (MAP) Pulse Ox O2 Delivery O2 Flow Rate FiO2 07/01/19 08:30 98.3 92 20 168/76 98.3 07/01/19 06:30 98 Room Air 07/01/19 04:50 2.0 Labs: Labs: Laboratory Tests Test 06/30/19 22:35 06/30/19 22:55 06/30/19 23:00 07/01/19 05:13 Prothrombin Time 14.5 SEC (11.7-14.0) Prothromb Time International Ratio 1.2 (0.8-1.1) Activated Partial Thromboplast Time 25 SEC (24-38) Gastric Fluid Occult Blood Positive (NEG) Stool Occult Blood Positive (NEG) White Blood Count 8.7 x10^3/uL (4.0-11.0) 7.1 x10^3/uL (4.0-11.0) Red Blood Count 1.33 x10^6/uL (3.50-5.40) 1.02 x10^6/uL (3.50-5.40) Hemoglobin 4.5 g/dL (12.0-15.5) 3.5 g/dL (12.0-15.5) Hematocrit 13.4 % (36.0-47.0) 10.3 % (36.0-47.0) Mean Corpuscular Volume 100 fL (79-100) 101 fL (79-100) Mean Corpuscular Hemoglobin 34 pg (25-35) 34 pg (25-35) Mean Corpuscular Hemoglobin Concent 34 g/dL (31-37) 34 g/dL (31-37) Red Cell Distribution Width 21.8 % (11.5-14.5) 21.9 % (11.5-14.5) Platelet Count 233 x10^3/uL (140-400) 196 x10^3/uL (140-400) Neutrophils (%) (Auto) 67 % (31-73) Lymphocytes (%) (Auto) 21 % (24-48) Monocytes (%) (Auto) 10 % (0-9) Eosinophils (%) (Auto) 2 % (0-3) Basophils (%) (Auto) 1 % (0-3) Neutrophils # (Auto) 5.8 x10^3/uL (1.8-7.7) Lymphocytes # (Auto) 1.8 x10^3/uL (1.0-4.8) Monocytes # (Auto) 0.9 x10^3/uL (0.0-1.1) Eosinophils # (Auto) 0.1 x10^3/uL (0.0-0.7) Basophils # (Auto) 0.0 x10^3/uL (0.0-0.2) Platelet Estimate Adequate (ADEQUATE) Polychromasia Slight Anisocytosis Mod Sodium Level 132 mmol/L (136-145) Potassium Level 4.1 mmol/L (3.5-5.1) Chloride Level 91 mmol/L (98-107) Carbon Dioxide Level 29 mmol/L (21-32) Anion Gap 12 (6-14) Blood Urea Nitrogen 78 mg/dL (7-20) Creatinine 7.9 mg/dL (0.6-1.0) Estimated GFR (Cockcroft-Gault) 6.2 BUN/Creatinine Ratio 10 (6-20) Glucose Level 185 mg/dL (70-99) Calcium Level 8.1 mg/dL (8.5-10.1) Total Bilirubin 0.4 mg/dL (0.2-1.0) Aspartate Amino Transf (AST/SGOT) 54 U/L (15-37) Alanine Aminotransferase (ALT/SGPT) 19 U/L (14-59) Alkaline Phosphatase 220 U/L (46-116) Total Protein 6.5 g/dL (6.4-8.2) Albumin 2.3 g/dL (3.4-5.0) Albumin/Globulin Ratio 0.5 (1.0-1.7) Allergies: Coded Allergies: I S O L A T I O N *CONTACT* (Verified Allergy, Unknown, 11/04/18) chronic C.diff acetaminophen (Verified Adverse Reaction, Intermediate, Nausea and Vomiting, 02/16/19) Medications: Current Medications Medications (Trade) Dose Ordered Sig/Kimberly Route PRN Reason Start Time Stop Time Status Last Admin Dose Admin Ondansetron HCl (Zofran) 4 mg 1X ONCE IV 06/30/19 23:00 06/30/19 23:01 DC 07/01/19 05:25 Pantoprazole Sodium (PROTONIX VIAL for IV PUSH) 80 mg 1X ONCE IVP 06/30/19 23:45 06/30/19 23:46 DC 07/01/19 05:25 Pantoprazole Sodium 80 mg/ Sodium Chloride 100 ml @ 10 mls/hr Q10H IV 07/01/19 00:00 07/02/19 00:00 07/01/19 05:25 Fentanyl Citrate (Fentanyl 2ml Vial) 50 mcg 1X ONCE IM 07/01/19 01:30 07/01/19 01:31 DC 07/01/19 05:25 Imaging: Imaging: CT A/P w/o contrast There is mild linear atelectasis in the lung bases without other infiltrates. A liver lesion is not identified. The patient's had a cholecystectomy. Spleen is unremarkable. There is a 9 mm nodule in the left adrenal gland, an adrenal adeno ma is most likely, the pattern is unchanged compared to the prior studies. There is no mass or hydronephrosis in the kidneys. There is a right renal calculus without change. Stomach is distended. There is no bowel obstruction. There is a hernia at the umbilicus. Appendix is normal. Patient's had a hysterectomy. There are degenerative change and facet arthritis in the lumbar spine. There is spinal stenosis at L4-5. There is a fracture with possible bony destructive at the pubic bone. There is a fracture the inferior pubic ramus. Pubic bone has changed compared to the CT from February. There are degenerative and hypertrophic changes in the lumbar spine. IMPRESSION: 1. Comminuted fracture versus pathologic fracture at the pubic bone on the right. 2. Distended stomach. 3. No other acute finding in the abdomen or pelvis. PE: GEN: NAD HEENT: Atraumatic, keeps eyes closed LUNGS: CTAB HEART: RRR ABD: NABS, S/ND, epigastric discomfort EXTREMITY: No edema SKIN: No rashes, no jaundice NEURO/PSYCH: drowsy A/P: A/P: Hematemesis, melena - h/o recurrent n/v, abd pain, and diarrhea Chronic anemia - Hgb worse this time ESRD on HD w/ non-compliance GERD, h/o - ?PPI compliance Cirrhosis - alcohol, Hep C CRC screen - reportedly UTD (<10 years @ [facility]) H/o C Diff S/p cholecystectomy -- Recurrent symptoms w/ several recent investigations - Hgb lower this time. Reviewed w/ Dr. Faulkner - EGD this morning. Await Hgb recheck and transfuse as needed. Continue PPI. IRIS SZYMANSKI Jul 01, 2019 09:39
--- NOTE | 2019-07-01 09:49 | PDOC2 ---
CONSULT Date of Consult Date of Consult DATE: 07/01/19 TIME: 09:39 Reason for Consult Reason for Consult: ESRD Source Source: Chart review History of Present Illness Reason for Visit: Patient is a 64 year old female with history of end stage renal disease on hemodialysis previous GI bleeding who presents with complaining of vomiting blood. Patient states she had 2 episodes of vomiting blood prior to arrival to ER as a dark colored blood about half cup of blood during episodes of vomiting. Patient states she has had episodes of black stool for the last 5 days that usually happen once or twice a day without vomiting until today. Patient had history of blood transfusion and GI bleed previously. Patient denies chest pain, shortness of breath, fever and chills, focal neuro deficit. Patient complaining of chronic back pain and mild abdominal pain. She missed HD Saturday, last HD was on Saturday . Hgb 4.5 in ED receiving PRBC Past Medical History Cardiovascular: HTN, Hyperlipidemia Pulmonary: No pertinent hx GI: Constipation, GERD, GI bleed Heme/Onc: Anemia NOS Hepatobiliary: No pertinent hx, Hep A/B/C Psych: Addictions Rheumatologic: Rheumatoid arthritis Infectious disease: No pertinent hx Renal/: Chronic renal failure, Hematuria Endocrine: Diabetes, Hyperparathyroidism Past Surgical History Past Surgical History: Cholecystectomy, Tonsillectomy, Hysterectomy, Other Family History Family History: High Cholestrol, Hypertension, Family History Unknown Social History ALCOHOL: heavy Drugs: None Current Problem List Problem List Problems Medical Problems: (1) Anemia Status: Acute (2) Hyperglycemia Status: Acute (3) Hypoalbuminemia Status: Acute (4) Hyponatremia Status: Acute (5) Upper GI bleeding Status: Acute Current Medications Current Medications Current Medications Ondansetron HCl (Zofran) 4 mg 1X ONCE IV Last administered on 07/01/19at 05:25; Start 06/30/19 at 23:00; Stop 06/30/19 at 23:01; Status DC Pantoprazole Sodium (PROTONIX VIAL for IV PUSH) 40 mg 1X ONCE IVP ; Start 06/30/19 at 23:00; Stop 06/30/19 at 23:29; Status DC Pantoprazole Sodium (PROTONIX VIAL for IV PUSH) 80 mg 1X ONCE IVP Last administered on 07/01/19at 05:25; Start 06/30/19 at 23:45; Stop 06/30/19 at 23:46; Status DC Pantoprazole Sodium 80 mg/ Sodium Chloride 100 ml @ 10 mls/hr Q10H IV Last administered on 07/01/19at 05:25; Start 07/01/19 at 00:00; Stop 07/02/19 at 00:00 Fentanyl Citrate (Fentanyl 2ml Vial) 50 mcg 1X ONCE IM Last administered on 07/01/19at 05:25; Start 07/01/19 at 01:30; Stop 07/01/19 at 01:31; Status DC Lidocaine HCl 20 ml STK-MED ONCE .ROUTE ; Start 07/01/19 at 01:27; Stop 07/01/19 at 01:27; Status DC Sodium Chloride (NORMAL SALINE FLUSH for STERILE FIELD) 10 ml STK-MED ONCE .ROUTE ; Start 07/01/19 at 01:27; Stop 07/01/19 at 01:27; Status DC Sodium Chloride (NORMAL SALINE FLUSH for STERILE FIELD) 10 ml STK-MED ONCE .ROUTE ; Start 07/01/19 at 03:34; Stop 07/01/19 at 03:36; Status DC Pantoprazole Sodium (PROTONIX VIAL for IV PUSH) 40 mg STK-MED ONCE IVP ; Start 07/01/19 at 05:19; Stop 07/01/19 at 05:20; Status DC Ondansetron HCl (Zofran) 4 mg STK-MED ONCE .ROUTE ; Start 07/01/19 at 05:20; Stop 07/01/19 at 05:20; Status DC Active Scripts Active Protonix (Pantoprazole Sodium) 20 Mg Tablet.dr 40 Tab PO DAILY Vancomycin Hcl 500 Mg Vial 125 Mg PO [id number] 13 Days Culturelle (Lactobacillus Rhamnosus Gg) 1 Each Cap.sprink 1 Cap PO BID 14 Days Reported Aleve Pm Caplet (Naproxen Na-Diphenhydramin HCl) 1 Each Tablet 1 Each PO HS PRN Nephro-Edward Tablet (Folic Acid/Vitamin B Comp W-C) 0.8 Mg Tablet 1 Tab PO DAILY Calcium Acetate 667 Mg Tablet 667 Mg PO TIDWMEALS Carvedilol 25 Mg Tablet 25 Mg PO BID Folic Acid 1 Mg Tablet 1 Mg PO DAILY Miralax (Polyethylene Glycol 3350) 17 Gm Powd.pack 1 Packet PO PRN DAILY PRN Amlodipine Besylate 10 Mg Tablet 10 Mg PO DAILY Allergies Allergies: Coded Allergies: I S O L A T I O N *CONTACT* (Verified Allergy, Unknown, 11/04/18) chronic C.diff acetaminophen (Verified Adverse Reaction, Intermediate, Nausea and Vomiting, 02/16/19) ROS Review of System Per HPI Physical Exam Physical Exam GEN: NAD HEEN: OM moist, On RA NECK: Supple, CVS: S1S2, RRR RESP: No Rales, No Rhonchi,No Acc. Muscle Use GI: BS + ve, NO Bruit, Non Tender, : No CVA tenderness, No Suprapubic Tenderness, No shaw NEURO- Grossly normal SKIN- No rash EXT- No edema Vital Signs Vital Signs Date Time Temp Pulse Resp B/P (MAP) Pulse Ox O2 Delivery O2 Flow Rate FiO2 07/01/19 08:30 98.3 92 20 168/76 98.3 07/01/19 06:30 98 Room Air 07/01/19 04:50 2.0 Assessment & Plan ESRD- On HD TTS Missed Saturday,Last HD was on Saturday Dialysis today as ordered, [facility] icer Severe Anemia - Hgb 4.5 , receiving PRBC Hematemesis GI Consulted ,Scope today HTN -On antihypertensives at Home GERD - non-compliant w/ PPI, /On Naproxen per home med list Cirrhosis - ETOH , Hep C Labs Labs Laboratory Tests Test 06/30/19 22:35 06/30/19 22:55 06/30/19 23:00 07/01/19 05:13 Prothrombin Time 14.5 SEC (11.7-14.0) Prothromb Time International Ratio 1.2 (0.8-1.1) Activated Partial Thromboplast Time 25 SEC (24-38) Gastric Fluid Occult Blood Positive (NEG) Stool Occult Blood Positive (NEG) White Blood Count 8.7 x10^3/uL (4.0-11.0) 7.1 x10^3/uL (4.0-11.0) Red Blood Count 1.33 x10^6/uL (3.50-5.40) 1.02 x10^6/uL (3.50-5.40) Hemoglobin 4.5 g/dL (12.0-15.5) 3.5 g/dL (12.0-15.5) Hematocrit 13.4 % (36.0-47.0) 10.3 % (36.0-47.0) Mean Corpuscular Volume 100 fL (79-100) 101 fL (79-100) Mean Corpuscular Hemoglobin 34 pg (25-35) 34 pg (25-35) Mean Corpuscular Hemoglobin Concent 34 g/dL (31-37) 34 g/dL (31-37) Red Cell Distribution Width 21.8 % (11.5-14.5) 21.9 % (11.5-14.5) Platelet Count 233 x10^3/uL (140-400) 196 x10^3/uL (140-400) Neutrophils (%) (Auto) 67 % (31-73) Lymphocytes (%) (Auto) 21 % (24-48) Monocytes (%) (Auto) 10 % (0-9) Eosinophils (%) (Auto) 2 % (0-3) Basophils (%) (Auto) 1 % (0-3) Neutrophils # (Auto) 5.8 x10^3/uL (1.8-7.7) Lymphocytes # (Auto) 1.8 x10^3/uL (1.0-4.8) Monocytes # (Auto) 0.9 x10^3/uL (0.0-1.1) Eosinophils # (Auto) 0.1 x10^3/uL (0.0-0.7) Basophils # (Auto) 0.0 x10^3/uL (0.0-0.2) Platelet Estimate Adequate (ADEQUATE) Polychromasia Slight Anisocytosis Mod Sodium Level 132 mmol/L (136-145) Potassium Level 4.1 mmol/L (3.5-5.1) Chloride Level 91 mmol/L (98-107) Carbon Dioxide Level 29 mmol/L (21-32) Anion Gap 12 (6-14) Blood Urea Nitrogen 78 mg/dL (7-20) Creatinine 7.9 mg/dL (0.6-1.0) Estimated GFR (Cockcroft-Gault) 6.2 BUN/Creatinine Ratio 10 (6-20) Glucose Level 185 mg/dL (70-99) Calcium Level 8.1 mg/dL (8.5-10.1) Total Bilirubin 0.4 mg/dL (0.2-1.0) Aspartate Amino Transf (AST/SGOT) 54 U/L (15-37) Alanine Aminotransferase (ALT/SGPT) 19 U/L (14-59) Alkaline Phosphatase 220 U/L (46-116) Total Protein 6.5 g/dL (6.4-8.2) Albumin 2.3 g/dL (3.4-5.0) Albumin/Globulin Ratio 0.5 (1.0-1.7) Laboratory Tests Test 06/30/19 22:35 06/30/19 22:55 06/30/19 23:00 07/01/19 05:13 Prothrombin Time 14.5 SEC (11.7-14.0) Prothromb Time International Ratio 1.2 (0.8-1.1) Activated Partial Thromboplast Time 25 SEC (24-38) Gastric Fluid Occult Blood Positive (NEG) Stool Occult Blood Positive (NEG) White Blood Count 8.7 x10^3/uL (4.0-11.0) 7.1 x10^3/uL (4.0-11.0) Red Blood Count 1.33 x10^6/uL (3.50-5.40) 1.02 x10^6/uL (3.50-5.40) Hemoglobin 4.5 g/dL (12.0-15.5) 3.5 g/dL (12.0-15.5) Hematocrit 13.4 % (36.0-47.0) 10.3 % (36.0-47.0) Mean Corpuscular Volume 100 fL (79-100) 101 fL (79-100) Mean Corpuscular Hemoglobin 34 pg (25-35) 34 pg (25-35) Mean Corpuscular Hemoglobin Concent 34 g/dL (31-37) 34 g/dL (31-37) Red Cell Distribution Width 21.8 % (11.5-14.5) 21.9 % (11.5-14.5) Platelet Count 233 x10^3/uL (140-400) 196 x10^3/uL (140-400) Neutrophils (%) (Auto) 67 % (31-73) Lymphocytes (%) (Auto) 21 % (24-48) Monocytes (%) (Auto) 10 % (0-9) Eosinophils (%) (Auto) 2 % (0-3) Basophils (%) (Auto) 1 % (0-3) Neutrophils # (Auto) 5.8 x10^3/uL (1.8-7.7) Lymphocytes # (Auto) 1.8 x10^3/uL (1.0-4.8) Monocytes # (Auto) 0.9 x10^3/uL (0.0-1.1) Eosinophils # (Auto) 0.1 x10^3/uL (0.0-0.7) Basophils # (Auto) 0.0 x10^3/uL (0.0-0.2) Platelet Estimate Adequate (ADEQUATE) Polychromasia Slight Anisocytosis Mod Sodium Level 132 mmol/L (136-145) Potassium Level 4.1 mmol/L (3.5-5.1) Chloride Level 91 mmol/L (98-107) Carbon Dioxide Level 29 mmol/L (21-32) Anion Gap 12 (6-14) Blood Urea Nitrogen 78 mg/dL (7-20) Creatinine 7.9 mg/dL (0.6-1.0) Estimated GFR (Cockcroft-Gault) 6.2 BUN/Creatinine Ratio 10 (6-20) Glucose Level 185 mg/dL (70-99) Calcium Level 8.1 mg/dL (8.5-10.1) Total Bilirubin 0.4 mg/dL (0.2-1.0) Aspartate Amino Transf (AST/SGOT) 54 U/L (15-37) Alanine Aminotransferase (ALT/SGPT) 19 U/L (14-59) Alkaline Phosphatase 220 U/L (46-116) Total Protein 6.5 g/dL (6.4-8.2) Albumin 2.3 g/dL (3.4-5.0) Albumin/Globulin Ratio 0.5 (1.0-1.7) Review All relevant outside records, renal labs, imaging studies, telemetry/EKG's were reviewed. GINO TAN MD Jul 01, 2019 09:49
--- NOTE | 2019-07-01 10:10 | PDOC1 ---
History and Physical Date of Admission Date of Admission DATE: 07/01/19 TIME: 10:08 Identification/Chief Complaint Chief Complaint SEEN IN ER 64 year old female with history of end stage renal disease on hemodialysis previous GI bleeding who presents with complaining of vomiting blood. Patient states she had 2 episodes of vomiting blood prior to arrival to ER as a dark colored blood about half cup of blood during episodes of vomiting. Patient states she has had episodes of black stool for the last 5 days that usually happen once or twice a day without vomiting EGD THIS AM PT ADMITS TO continued alcohol abuse Past Medical History Past Medical History Past Medical History Past Medical History Past Medical History: Diabetes-Type II, High Cholesterol, Heart Disease, Hypertension, Renal Failure Additional Past Medical Histor: DIARRHEA Past Surgical History: Cholecystectomy Additional Past Surgical Histo: RT KNEE, SHUNT RIGHT CHEST, dialysis graft Alcohol Use: Occasionally Drug Use: None FHX OBESITY PMH: PMH: HTN, HLD, ESRD on HD, GERD, , C Diff, cirrhosis, RA, DM, hyperparathyroidism, ?pancreatitis partial hysterectomy (lap assisted/vaginal), cholecystectomy FH: Family History: No pertinent hx, DM Social History: Smoke: No ALCOHOL: heavy Drugs: None Cardiovascular: HTN, Hyperlipidemia Pulmonary: No pertinent hx GI: Constipation, GERD, GI bleed Heme/Onc: Anemia NOS Hepatobiliary: No pertinent hx, Hep A/B/C Psych: Addictions Rheumatologic: Rheumatoid arthritis Infectious disease: No pertinent hx Renal/: Chronic renal failure, Hematuria Endocrine: Diabetes, Hyperparathyroidism Past Surgical History Past Surgical History: Cholecystectomy, Tonsillectomy, Hysterectomy, Other Family History Family History: Alcohol Abuse, High Cholestrol, Hypertension, Family History Unknown Social History Smoke: <1 pack per day ALCOHOL: heavy Drugs: None Current Problem List Problem List Problems Medical Problems: (1) Anemia Status: Acute (2) Hyperglycemia Status: Acute (3) Hypoalbuminemia Status: Acute (4) Hyponatremia Status: Acute (5) Upper GI bleeding Status: Acute Current Medications Current Medications Current Medications Ondansetron HCl (Zofran) 4 mg 1X ONCE IV Last administered on 07/01/19at 05:25; Start 06/30/19 at 23:00; Stop 06/30/19 at 23:01; Status DC Pantoprazole Sodium (PROTONIX VIAL for IV PUSH) 40 mg 1X ONCE IVP ; Start 06/30/19 at 23:00; Stop 06/30/19 at 23:29; Status DC Pantoprazole Sodium (PROTONIX VIAL for IV PUSH) 80 mg 1X ONCE IVP Last administered on 07/01/19at 05:25; Start 06/30/19 at 23:45; Stop 06/30/19 at 23:46; Status DC Pantoprazole Sodium 80 mg/ Sodium Chloride 100 ml @ 10 mls/hr Q10H IV Last administered on 07/01/19at 05:25; Start 07/01/19 at 00:00; Stop 07/02/19 at 00:00 Fentanyl Citrate (Fentanyl 2ml Vial) 50 mcg 1X ONCE IM Last administered on 07/01/19at 05:25; Start 07/01/19 at 01:30; Stop 07/01/19 at 01:31; Status DC Lidocaine HCl 20 ml STK-MED ONCE .ROUTE ; Start 07/01/19 at 01:27; Stop 07/01/19 at 01:27; Status DC Sodium Chloride (NORMAL SALINE FLUSH for STERILE FIELD) 10 ml STK-MED ONCE .ROUTE ; Start 07/01/19 at 01:27; Stop 07/01/19 at 01:27; Status DC Sodium Chloride (NORMAL SALINE FLUSH for STERILE FIELD) 10 ml STK-MED ONCE .ROUTE ; Start 07/01/19 at 03:34; Stop 07/01/19 at 03:36; Status DC Pantoprazole Sodium (PROTONIX VIAL for IV PUSH) 40 mg STK-MED ONCE IVP ; Start 07/01/19 at 05:19; Stop 07/01/19 at 05:20; Status DC Ondansetron HCl (Zofran) 4 mg STK-MED ONCE .ROUTE ; Start 07/01/19 at 05:20; Stop 07/01/19 at 05:20; Status DC Active Scripts Active Protonix (Pantoprazole Sodium) 20 Mg Tablet.dr 40 Tab PO DAILY Vancomycin Hcl 500 Mg Vial 125 Mg PO [id number] 13 Days Culturelle (Lactobacillus Rhamnosus Gg) 1 Each Cap.sprink 1 Cap PO BID 14 Days Reported Aleve Pm Caplet (Naproxen Na-Diphenhydramin HCl) 1 Each Tablet 1 Each PO HS PRN Nephro-Edward Tablet (Folic Acid/Vitamin B Comp W-C) 0.8 Mg Tablet 1 Tab PO DAILY Calcium Acetate 667 Mg Tablet 667 Mg PO TIDWMEALS Carvedilol 25 Mg Tablet 25 Mg PO BID Folic Acid 1 Mg Tablet 1 Mg PO DAILY Miralax (Polyethylene Glycol 3350) 17 Gm Powd.pack 1 Packet PO PRN DAILY PRN Amlodipine Besylate 10 Mg Tablet 10 Mg PO DAILY Allergies Allergies: Coded Allergies: I S O L A T I O N *CONTACT* (Verified Allergy, Unknown, 07/01/19) chronic C.diff acetaminophen (Verified Adverse Reaction, Intermediate, Nausea and Vomiting, 07/01/19) ROS Review of System Review of Systems Review of Systems Constitutional: Denies fever or chills [] Eyes: Denies change in visual acuity, redness, or eye pain [] HENT: Denies nasal congestion or sore throat [] Respiratory: Denies cough or shortness of breath [] Cardiovascular: No additional information not addressed in HPI [] GI: Denies abdominal pain, nausea, POS vomiting BLOOD , NO bloody stools or diarrhea [] : Denies dysuria or hematuria [] Musculoskeletal: Denies back pain or joint pain [] Integument: Denies rash or skin lesions [] Neurologic: Denies headache, focal weakness or sensory changes [] Endocrine: Denies polyuria or polydipsia [] 14 PT systems were reviewed and found to be within normal limits, except as documented General: YES: Fatigue PSYCHOLOGICAL ROS: YES: Anxiety Gastrointestinal: Yes Vomiting Musculoskeletal: Yes Gait Disturbance, Yes Joint Pain, Yes Joint Stiffness Neurological: Yes Dizziness, Yes Gait Disturbance Physical Exam Physical Exam Physical Exam Physical Exam Constitutional: Well developed, well nourished, no acute distress, non-toxic appearance. [] HENT: Normocephalic, atraumatic, bilateral external ears normal, oropharynx moist, no oral exudates, nose normal. [] Eyes: PERRLA, EOMI, conjunctiva normal, no discharge. [] Neck: Normal range of motion, no tenderness, supple, no stridor. [] Cardiovascular:Heart rate regular rhythm, no murmur [] Lungs & Thorax: Bilateral breath sounds clear to auscultation [] Abdomen: Bowel sounds normal, soft, no tenderness, no masses, no pulsatile mini s. [] Skin: Warm, dry, no erythema, no rash. [] Back: No tenderness, no CVA tenderness. [] Extremities: No tenderness, no cyanosis, no clubbing, ROM intact, no edema. [] Neurologic: Alert and oriented X 3, normal motor function, normal sensory function, no focal deficits noted. [] Psychologic: Affect normal, judgement normal, mood normal. [] General: Alert, Oriented X3, Cooperative, No acute distress HEENT: EOMI Lungs: Clear to auscultation, Normal air movement Heart: RRR Breasts: Not examined Abdomen: Soft PELVIC: Examination not indicated Neuro: Normal speech, Cranial nerves 3-12 NL Vitals Vitals Vital Signs Date Time Temp Pulse Resp B/P (MAP) Pulse Ox O2 Delivery O2 Flow Rate FiO2 07/01/19 08:30 98.3 92 20 168/76 98.3 07/01/19 06:30 98 Room Air 07/01/19 04:50 2.0 Labs Labs Laboratory Tests Test 06/30/19 22:35 06/30/19 22:55 06/30/19 23:00 07/01/19 05:13 Prothrombin Time 14.5 SEC (11.7-14.0) Prothromb Time International Ratio 1.2 (0.8-1.1) Activated Partial Thromboplast Time 25 SEC (24-38) Gastric Fluid Occult Blood Positive (NEG) Stool Occult Blood Positive (NEG) White Blood Count 8.7 x10^3/uL (4.0-11.0) 7.1 x10^3/uL (4.0-11.0) Red Blood Count 1.33 x10^6/uL (3.50-5.40) 1.02 x10^6/uL (3.50-5.40) Hemoglobin 4.5 g/dL (12.0-15.5) 3.5 g/dL (12.0-15.5) Hematocrit 13.4 % (36.0-47.0) 10.3 % (36.0-47.0) Mean Corpuscular Volume 100 fL (79-100) 101 fL (79-100) Mean Corpuscular Hemoglobin 34 pg (25-35) 34 pg (25-35) Mean Corpuscular Hemoglobin Concent 34 g/dL (31-37) 34 g/dL (31-37) Red Cell Distribution Width 21.8 % (11.5-14.5) 21.9 % (11.5-14.5) Platelet Count 233 x10^3/uL (140-400) 196 x10^3/uL (140-400) Neutrophils (%) (Auto) 67 % (31-73) Lymphocytes (%) (Auto) 21 % (24-48) Monocytes (%) (Auto) 10 % (0-9) Eosinophils (%) (Auto) 2 % (0-3) Basophils (%) (Auto) 1 % (0-3) Neutrophils # (Auto) 5.8 x10^3/uL (1.8-7.7) Lymphocytes # (Auto) 1.8 x10^3/uL (1.0-4.8) Monocytes # (Auto) 0.9 x10^3/uL (0.0-1.1) Eosinophils # (Auto) 0.1 x10^3/uL (0.0-0.7) Basophils # (Auto) 0.0 x10^3/uL (0.0-0.2) Platelet Estimate Adequate (ADEQUATE) Polychromasia Slight Anisocytosis Mod Sodium Level 132 mmol/L (136-145) Potassium Level 4.1 mmol/L (3.5-5.1) Chloride Level 91 mmol/L (98-107) Carbon Dioxide Level 29 mmol/L (21-32) Anion Gap 12 (6-14) Blood Urea Nitrogen 78 mg/dL (7-20) Creatinine 7.9 mg/dL (0.6-1.0) Estimated GFR (Cockcroft-Gault) 6.2 BUN/Creatinine Ratio 10 (6-20) Glucose Level 185 mg/dL (70-99) Calcium Level 8.1 mg/dL (8.5-10.1) Total Bilirubin 0.4 mg/dL (0.2-1.0) Aspartate Amino Transf (AST/SGOT) 54 U/L (15-37) Alanine Aminotransferase (ALT/SGPT) 19 U/L (14-59) Alkaline Phosphatase 220 U/L (46-116) Total Protein 6.5 g/dL (6.4-8.2) Albumin 2.3 g/dL (3.4-5.0) Albumin/Globulin Ratio 0.5 (1.0-1.7) Laboratory Tests Test 06/30/19 22:35 06/30/19 22:55 06/30/19 23:00 07/01/19 05:13 Prothrombin Time 14.5 SEC (11.7-14.0) Prothromb Time International Ratio 1.2 (0.8-1.1) Activated Partial Thromboplast Time 25 SEC (24-38) Gastric Fluid Occult Blood Positive (NEG) Stool Occult Blood Positive (NEG) White Blood Count 8.7 x10^3/uL (4.0-11.0) 7.1 x10^3/uL (4.0-11.0) Red Blood Count 1.33 x10^6/uL (3.50-5.40) 1.02 x10^6/uL (3.50-5.40) Hemoglobin 4.5 g/dL (12.0-15.5) 3.5 g/dL (12.0-15.5) Hematocrit 13.4 % (36.0-47.0) 10.3 % (36.0-47.0) Mean Corpuscular Volume 100 fL (79-100) 101 fL (79-100) Mean Corpuscular Hemoglobin 34 pg (25-35) 34 pg (25-35) Mean Corpuscular Hemoglobin Concent 34 g/dL (31-37) 34 g/dL (31-37) Red Cell Distribution Width 21.8 % (11.5-14.5) 21.9 % (11.5-14.5) Platelet Count 233 x10^3/uL (140-400) 196 x10^3/uL (140-400) Neutrophils (%) (Auto) 67 % (31-73) Lymphocytes (%) (Auto) 21 % (24-48) Monocytes (%) (Auto) 10 % (0-9) Eosinophils (%) (Auto) 2 % (0-3) Basophils (%) (Auto) 1 % (0-3) Neutrophils # (Auto) 5.8 x10^3/uL (1.8-7.7) Lymphocytes # (Auto) 1.8 x10^3/uL (1.0-4.8) Monocytes # (Auto) 0.9 x10^3/uL (0.0-1.1) Eosinophils # (Auto) 0.1 x10^3/uL (0.0-0.7) Basophils # (Auto) 0.0 x10^3/uL (0.0-0.2) Platelet Estimate Adequate (ADEQUATE) Polychromasia Slight Anisocytosis Mod Sodium Level 132 mmol/L (136-145) Potassium Level 4.1 mmol/L (3.5-5.1) Chloride Level 91 mmol/L (98-107) Carbon Dioxide Level 29 mmol/L (21-32) Anion Gap 12 (6-14) Blood Urea Nitrogen 78 mg/dL (7-20) Creatinine 7.9 mg/dL (0.6-1.0) Estimated GFR (Cockcroft-Gault) 6.2 BUN/Creatinine Ratio 10 (6-20) Glucose Level 185 mg/dL (70-99) Calcium Level 8.1 mg/dL (8.5-10.1) Total Bilirubin 0.4 mg/dL (0.2-1.0) Aspartate Amino Transf (AST/SGOT) 54 U/L (15-37) Alanine Aminotransferase (ALT/SGPT) 19 U/L (14-59) Alkaline Phosphatase 220 U/L (46-116) Total Protein 6.5 g/dL (6.4-8.2) Albumin 2.3 g/dL (3.4-5.0) Albumin/Globulin Ratio 0.5 (1.0-1.7) Images Images EXAM: Right knee, 2 views; bilateral knees, standing view. HISTORY: Pain. COMPARISON: None. FINDINGS: A frontal standing view both knees and lateral and sunrise views of the right knee are obtained. There is internal fixation of healed distal femoral metadiaphyseal and proximal tibial metaphyseal fractures. There is a healed proximal fibular fracture. No acute fracture is seen. There is bilateral medial and lateral compartment joint space narrowing and spurring. There is also right patellofemoral compartment spurring and a trace right knee effusion. There are vascular calcifications. There is suspected bone demineralization. There may be slight left genu varus. IMPRESSION: 1. Internal fixation of healed right distal femoral and proximal tibial fractures. 2. Mild bilateral knee osteoarthritis with suspected trace right knee effusion. Electronically signed by: Renetta Hardin MD (06/01/2019 4:34 PM) [place] [id number] DICTATED and SIGNED BY: RENETTA HARDIN MD DATE: 06/01/[address] abdomen pelvis without contrast. HISTORY: Abdominal pain, GI bleeding CT scan of the abdomen and pelvis was done without contrast. There is mild linear atelectasis in the lung bases without other infiltrates. A liver lesion is not identified. The patient's had a cholecystectomy. Spleen is unremarkable. There is a 9 mm nodule in the left adrenal gland, an adrenal adenoma is most likely, the pattern is unchanged compared to the prior studies. There is no mass or hydronephrosis in the kidneys. There is a right renal calculus without change. Stomach is distended. There is no bowel obstruction. There is a hernia at the umbilicus. Appendix is normal. Patient's had a hysterectomy. There are degenerative change and facet arthritis in the lumbar spine. There is spinal stenosis at L4-5. There is a fracture with possible bony destructive at the pubic bone. There is a fracture the inferior pubic ramus. Pubic bone has changed compared to the CT from February. There are degenerative and hypertrophic changes in the lumbar spine. IMPRESSION: 1. Comminuted fracture versus pathologic fracture at the pubic bone on the right. 2. Distended stomach. 3. No other acute finding in the abdomen or pelvis. VTE Prophylaxis Ordered VTE Prophylaxis Devices: Yes VTE Pharmacological Prophylaxi: Contraindicated Assessment/Plan Assessment/Plan IMPRESSION: ACUTE ugi bleeding, pre-pyloric ulcer Internal fixation of healed right distal femoral and proximal tibial fractures. Mild bilateral knee osteoarthritis with suspected trace right knee effusion. Comminuted fracture versus pathologic fracture at the pubic bone on the right. HX alcohol abuse (was drinking gin), chronic back pain, previous gastrointestinal bleed, end-stage renal disease on dialysis, HX Clostridium difficile, cholelithiasis, obesity, Trace tricuspid regurgitation with an estimated PAP of 52 mmHg. arteriovenous shunt.HX prepyloric ulcer with active "ooze"; unable to control endoscopically. Reflux PLAN : IR consulted to attempt embolization GD artery. Continue PPI NPO. ORTHO CONSULT alcohol withdrawal precautions protonix drip 114 MIN CC TIME ASHIA MOSS MD Jul 01, 2019 10:10
[2019-07-01 10:15] LABS: HEMATOCRIT 19.7 % (36.0-47.0); HEMOGLOBIN 6.9 g/dL (12.0-15.5)
[2019-07-01] MEDS ORDERED: IV RINGERS,LACTATED 1000ML 1,000 ML IV ONE (10:45)
[2019-07-01] MEDS: IV NORMAL SALINE 1000ML BAG 1,000 ML IV SCH ×2 (10:50→21:00)
[2019-07-01] MEDS ORDERED: EPINEPHrine SYRINGE 1 MG/10 ML SYRINGE SQ ONE (11:03)
--- NOTE | 2019-07-01 11:31 | PDOC4 ---
PROCEDURE Procedure EGD/epi/BICAP Indication: UGI bleeding Meds: per anesthesia Findings: E--Grade A reflux/no varices or M-W. G--Blood upper body/part of fundus. No varices seen. Prepyloric ulcer , posterior wall with clot/ooze from beneath. D--Blood in lumen, otherwise OK to second portion. --Placed clip near ulcer to tamika for IR. Epi injected around and into ulcer, maybe slowed some. Attempted BICAP, but only tangentially. Continued ooze. Further attempts abandoned. Obdulio. well. IMP: prepyloric ulcer with active "ooze"; unable to control endoscopically. Reflux REC: IR consulted to attempt embolization GD artery. Continue PPI NPO. HAYDER MARLOW MD Jul 01, 2019 11:31
[2019-07-01] MEDS ORDERED: EPINEPHrine SYRINGE 1 MG/10 ML SYRINGE ONE (11:53)
[2019-07-01] MEDS ORDERED: IOHEXOL 240 MG/ML 100 ML VIAL. ONE (12:01)
[2019-07-01] MEDS ORDERED: LIDOCAINE WITH 8.4% SOD BICARB 3 ML DISP.SYRIN. ONE (12:02)
[2019-07-01] MEDS ORDERED: HEPARIN for ARTERIAL LINE 1,500 ML ONE (12:02)
[2019-07-01] MEDS ORDERED: IOHEXOL 240 MG/ML 50ML VIAL. ONE ×2 (12:02→12:46)
[2019-07-01] MEDS ORDERED: IOHEXOL 300 MG/ML 100ML VIAL. ONE (13:03)
[2019-07-01 13:08] LABS: HEMATOCRIT 21.8 % (36.0-47.0); HEMOGLOBIN 7.8 g/dL (12.0-15.5); RED BLOOD COUNT 2.48 x10^6/uL (3.50-5.40); RED CELL DISTRIBUTION WIDTH 16.5 % (11.5-14.5); WHITE BLOOD COUNT 6.7 x10^3/uL (4.0-11.0)
[2019-07-01] MEDS ORDERED: LIDOCAINE WITH 8.4% SOD BICARB 3 ML DISP.SYRIN. IJ ONE (13:15)
[2019-07-01] MEDS ORDERED: CONTRAST GIVEN. MC PRN (13:15)
[2019-07-01] MEDS ORDERED: diphenhydrAMINE 50 MG/ML VIAL IVP PRN (13:15)
[2019-07-01] MEDS ORDERED: cloNIDine HCL 0.1 MG TABLET PO PRN (13:15)
[2019-07-01] MEDS ORDERED: 0.9 % SODIUM CHLORIDE 10 ML DISP.SYRIN. IV PRN (13:15)
[2019-07-01] MEDS ORDERED: ACETAMINOPHEN 325 MG TABLET. PO PRN (13:15)
[2019-07-01] MEDS ORDERED: LORazepam 1 MG TABLET PO PRN ×2 (13:15)
[2019-07-01] MEDS ORDERED: IOHEXOL 240 MG/ML 50ML VIAL. IART ONE (13:15)
[2019-07-01] MEDS ORDERED: HALOPERIDOL LACTATE 5 MG/ML VIAL. IVP PRN (13:15)
[2019-07-01] MEDS ORDERED: IOHEXOL 240 MG/ML 100 ML VIAL. INT ART ONE (13:15)
[2019-07-01] MEDS ORDERED: POLYETHYLENE GLYCOL 3350 17 GM PACKET. PO PRN (13:30)
[2019-07-01] MEDS ORDERED: fentaNYL PF VIAL 100 MCG/2 ML VIAL ONE (14:04)
[2019-07-01] MEDS ORDERED: fentaNYL PF VIAL 100 MCG/2 ML VIAL IV ONE (14:15)
[2019-07-01] MEDS: ONDANSETRON PF 4 MG/2 ML VIAL. IV PRN (15:32)
[2019-07-01 16:36] LABS: HEMATOCRIT 22.6 % (36.0-47.0); HEMOGLOBIN 7.8 g/dL (12.0-15.5)
[2019-07-01] MEDS: CALCIUM ACETATE 667 MG CAPSULE PO SCH (17:00)
[2019-07-01] MEDS: CARVEDILOL 12.5 MG TABLET. PO SCH (17:00)
[2019-07-01] MEDS: MULTIVIT INFUSN,ADULT 4,VIT K 10 ML, THIAMINE INJ 100 MG, FOLIC ACID INJ 1 MG in IV NOR... IV SCH (17:12)
[2019-07-01 18:03] LABS: BASO % 1 % (0-3); EOS % 0 % (0-3); HEMOGLOBIN 7.2 g/dL (12.0-15.5); LYMPH # 0.8 x10^3/uL (1.0-4.8); LYMPH % 10 % (24-48); MEAN CORPUSCULAR HEMOGLOBIN 31 pg (25-35); MEAN CORPUSCULAR HGB CONC 35 g/dL (31-37); MEAN CORPUSCULAR VOLUME 88 fL (79-100); MONO # 1.1 x10^3/uL (0.0-1.1); MONO % 14 % (0-9); NEUT # 6.4 x10^3/uL (1.8-7.7); NEUT % 76 % (31-73); PLATELET COUNT 175 x10^3/uL (140-400); RED BLOOD COUNT 2.32 x10^6/uL (3.50-5.40); RED CELL DISTRIBUTION WIDTH 17.1 % (11.5-14.5); WHITE BLOOD COUNT 8.5 x10^3/uL (4.0-11.0)
[2019-07-01 18:10] LABS: HEMATOCRIT 20.4 % (36.0-47.0)
[2019-07-01] MEDS: LACTOBACILLUS RHAMNOSUS GG 1 CAPSULE. PO SCH (20:09)
[2019-07-01 21:06] LABS: HEMATOCRIT 19.2 % (36.0-47.0); HEMOGLOBIN 6.7 g/dL (12.0-15.5)
[2019-07-02] VITALS (15 sets, daily range): BP systolic 104–184; BP diastolic 45–72
[2019-07-02] MEDS ORDERED: PANTOPRAZOLE SODIUM IV DRIP 80 MG in IV NORMAL SALINE 100ML 100 ML IV SCH (02:00)
[2019-07-02] MEDS: PANTOPRAZOLE SODIUM IV DRIP 80 MG in IV NORMAL SALINE 100ML 100 ML IV SCH (03:30)
[2019-07-02 04:55] LABS: BASO % 0 % (0-3); EOS % 0 % (0-3); HEMATOCRIT 21.8 % (36.0-47.0); HEMOGLOBIN 7.6 g/dL (12.0-15.5); LYMPH # 1.3 x10^3/uL (1.0-4.8); LYMPH % 11 % (24-48); MEAN CORPUSCULAR HEMOGLOBIN 31 pg (25-35); MEAN CORPUSCULAR HGB CONC 35 g/dL (31-37); MEAN CORPUSCULAR VOLUME 89 fL (79-100); MONO # 1.4 x10^3/uL (0.0-1.1); MONO % 12 % (0-9); NEUT % 77 % (31-73); PLATELET COUNT 154 x10^3/uL (140-400); RED BLOOD COUNT 2.44 x10^6/uL (3.50-5.40); RED CELL DISTRIBUTION WIDTH 16.4 % (11.5-14.5); WHITE BLOOD COUNT 11.8 x10^3/uL (4.0-11.0)
[2019-07-02 05:31] LABS: CALCIUM 7.5 mg/dL (8.5-10.1); CREATININE 8.9 mg/dL (0.6-1.0); GFR 5.4; PHOSPHORUS 5.7 mg/dL (2.6-4.7)
[2019-07-02 05:36] LABS: POTASSIUM 5.5 mmol/L (3.5-5.1)
[2019-07-02] MEDS ORDERED: IV NORMAL SALINE 1000ML BAG 1,000 ML IV PRN ×2 (07:00)
[2019-07-02] MEDS: CALCIUM ACETATE 667 MG CAPSULE PO SCH ×3 (08:00→17:42)
[2019-07-02] MEDS ORDERED: DIALYSIS PATIENT. MC PRN ×2 (08:15)
--- NOTE | 2019-07-02 08:39 | PDOC ---
PROGRESS NOTES History of Present Illness History of Present Illness IMPRESSION: 1. Comminuted fracture versus pathologic fracture at the pubic bone on the right. 2. Distended stomach. 3. No other acute finding in the abdomen or pelvis. VTE Prophylaxis Ordered VTE Prophylaxis Devices: Yes VTE Pharmacological Prophylaxi: Contraindicated Assessment/Plan Assessment/Plan IMPRESSION: ACUTE ugi bleeding, pre-pyloric ulcer Internal fixation of healed right distal femoral and proximal tibial fractures. Mild bilateral knee osteoarthritis with suspected trace right knee effusion. Comminuted fracture versus pathologic fracture at the pubic bone on the right. HX alcohol abuse (was drinking gin), chronic back pain, previous gastrointestinal bleed, end-stage renal disease on dialysis, HX Clostridium difficile, cholelithiasis, obesity, Trace tricuspid regurgitation with an estimated PAP of 52 mmHg. arteriovenous shunt.HX prepyloric ulcer with active "ooze"; unable to control endoscopically. hx Reflux PLAN : IR consulted to attempt embolization GD artery. Continue PPI NPO. ORTHO CONSULT pending alcohol withdrawal precautions protonix drip abdominal sono 37 MIN CC TIME Vitals Vitals Vital Signs Date Time Temp Pulse Resp B/P (MAP) Pulse Ox O2 Delivery O2 Flow Rate FiO2 07/02/19 07:49 Nasal Cannula 2.0 07/02/19 07:00 98.7 94 16 156/60 (92) 100 98.7 Physical Exam General: Alert, Oriented X3, Cooperative, No acute distress Heart: Regular rate Lungs: Clear Abdomen: Normal bowel sounds, Soft Extremities: No cyanosis Labs LABS ABDOMEN COMPLETE History: Abdominal pain Comparison: September 28, 2016 Findings: Multiple sonographic images of the abdomen are submitted. Pancreas is not well-visualized due to bowel gas. Pancreatic duct is visualized at 0.3 cm. There is coarsening of the echotexture of liver, no focal hepatic lesion demonstrated. Abdominal aorta is poorly visualized due to bowel gas, estimated distally at 1.4 cm. Right lobe of the liver measured 23 cm longitudinal. Gallbladder is present, likely mild pericholecystic fluid. There is some internal echogenicity likely due to cholelithiasis and sludge. Gallbladder wall is thickened up to 0.5 cm. Right kidney measured 10.4 x 4.7 x 5 cm, no hydronephrosis. Left kidney measured 9.1 x 5.1 x 4.4 cm, no hydronephrosis. There is a small hypoechoic lesion of the mid to inferior left kidney about 1.6 cm in size, more likely a cyst. Spleen is estimated at 10.6 cm. Common bile duct is within normal limits at 0.5 cm. Impression: 1. There is cholelithiasis and sludge, nonspecific gallbladder wall thickening which was present previously, although also pericholecystic fluid. Cholecystitis is not excluded. There is no significant biliary ductal dilatation. 2. There is hepatic steatosis and hepatomegaly. 3. There is probable small cyst of the left kidney. 4. There is nonspecific visualization pancreatic duct. Electronically signed by: Ed Rodriguez MD (03/04/2018 10:25 PM) [facility] EXAM: Two-dimensional and M-mode echocardiogram with Doppler and color Doppler. Other Information Quality : Average HR: 87bpm INDICATION Elevated Troponin 2D DIMENSIONS RVDd 3.2 (2.9-3.5cm) Left Atrium(2D) 3.6 (1.6-4.0cm) IVSd 1.4 (0.7-1.1cm) Aortic Root(2D) 2.7 (2.0-3.7cm) LVDd 4.8 (3.9-5.9cm) LVOT Diameter 1.8 (1.8-2.4cm) PWd 1.0 (0.7-1.1cm) LVDs 3.1 (2.5-4.0cm) FS (%) 36.1 % SV 70.0 ml LVEF(%) 65.7 (>50%) Aortic Valve AoV Peak Jeff. 181.4cm/s AoV VTI 37.5cm AO Peak GR. 13.2mmHg LVOT VTI 24.20cm AO Mean GR. 8mmHg Mitral Valve MV E Velocity 157.9cm/s MV DECEL TIME 167ms MV A Velocity 101.1cm/s E/A Ratio 1.6 TDI Lateral E' P. V 7.92cm/s Medial E' P. V 9.20cm/s E/Lateral E' 19.9 E/Medial E' 17.2 Tricuspid Valve TR P. Velocity 348cm/s RAP ESTIMATE 3mmHg TR Peak Gr. 49mmHg RVSP 52mmHg Pulmonary Vein S1 Velocity 51.5cm/s S2 Velocity 53.21cm/s D2 Velocity 53.2cm/s PVa duration 119msec LEFT VENTRICLE The left ventricle is normal size. There is mild to moderate concentric left ventricular hypertrophy. The left ventricular systolic function is normal. The Ejection Fraction is 60-65%. There is normal LV segmental wall motion. The left ventricular diastolic function and filling is normal for age. RIGHT VENTRICLE The right ventricle is normal size. There is normal right ventricular wall thickness. The right ventricular systolic function is normal. ATRIA The left atrium size is normal. The right atrium is mildly dilated. The interatrial septum is intact with no evidence for an atrial septal defect or patent foramen ovale as noted on 2-D or Doppler imaging. AORTIC VALVE The aortic valve is calcified but opens well. Doppler and Color Flow revealed trace aortic regurgitation. There is no significant aortic valvular stenosis. MITRAL VALVE The mitral valve is moderately thickened. There is no evidence of mitral valve prolapse. There is no mitral valve stenosis. Doppler and Color-flow revealed trace mitral regurgitation. TRICUSPID VALVE The tricuspid valve is normal in structure and function. Doppler and Color Flow revealed trace tricuspid regurgitation with an estimated PAP of 52 mmHg. There is moderate pulmonary hypertension. There is no tricuspid valve stenosis. PULMONIC VALVE The pulmonary valve is normal in structure and function. Doppler and Color Flow revealed no pulmonic valvular regurgitation. GREAT VESSELS The aortic root is normal in size. The IVC is normal in size and collapses >50% with inspiration. PERICARDIAL EFFUSION There is no evidence of significant pericardial effusion. Critical Notification Critical Value: No <Conclusion> The left ventricular systolic function is normal. The Ejection Fraction is 60-65%. There is normal LV segmental wall motion. Trace mitral regurgitation. Trace tricuspid regurgitation with an estimated PAP of 52 mmHg. There is no evidence of significant pericardial effusion. Signed by : Binu Castro, Electronically Approved : 02/18/2019 14:35:25 CT abdomen pelvis without contrast. HISTORY: Abdominal pain, GI bleeding CT scan of the abdomen and pelvis was done without contrast. There is mild linear atelectasis in the lung bases without other infiltrates. A liver lesion is not identified. The patient's had a cholecystectomy. Spleen is unremarkable. There is a 9 mm nodule in the left adrenal gland, an adrenal adenoma is most likely, the pattern is unchanged compared to the prior studies. There is no mass or hydronephrosis in the kidneys. There is a right renal calculus without change. Stomach is distended. There is no bowel obstruction. There is a hernia at the umbilicus. Appendix is normal. Patient's had a hysterectomy. There are degenerative change and facet arthritis in the lumbar spine. There is spinal stenosis at L4-5. There is a fracture with possible bony destructive at the pubic bone. There is a fracture the inferior pubic ramus. Pubic bone has changed compared to the CT from February. There are degenerative and hypertrophic changes in the lumbar spine. IMPRESSION: 1. Comminuted fracture versus pathologic fracture at the pubic bone on the right. 2. Distended stomach. 3. No other acute finding in the abdomen or pelvis. PQRS Compliance Statement: One or more of the following individualized dose reduction techniques were utilized for this examination: 1. Automated exposure control 2. Adjustment of the mA and/or kV according to patient size 3. Use of iterative reconstruction technique Electronically signed by: Darell Foss MD (07/01/2019 2:24 AM) [id number] Laboratory Tests Test 07/01/19 09:00 07/01/19 12:38 07/01/19 16:30 07/01/19 17:50 Hemoglobin 6.9 g/dL (12.0-15.5) 7.8 g/dL (12.0-15.5) 7.8 g/dL (12.0-15.5) 7.2 g/dL (12.0-15.5) Hematocrit 19.7 % (36.0-47.0) 21.8 % (36.0-47.0) 22.6 % (36.0-47.0) 20.4 % (36.0-47.0) White Blood Count 6.7 x10^3/uL (4.0-11.0) 8.5 x10^3/uL (4.0-11.0) Red Blood Count 2.48 x10^6/uL (3.50-5.40) 2.32 x10^6/uL (3.50-5.40) Mean Corpuscular Volume 88 fL (79-100) 88 fL (79-100) Mean Corpuscular Hemoglobin 31 pg (25-35) 31 pg (25-35) Mean Corpuscular Hemoglobin Concent 36 g/dL (31-37) 35 g/dL (31-37) Red Cell Distribution Width 16.5 % (11.5-14.5) 17.1 % (11.5-14.5) Platelet Count 166 x10^3/uL (140-400) 175 x10^3/uL (140-400) Neutrophils (%) (Auto) 76 % (31-73) Lymphocytes (%) (Auto) 10 % (24-48) Monocytes (%) (Auto) 14 % (0-9) Eosinophils (%) (Auto) 0 % (0-3) Basophils (%) (Auto) 1 % (0-3) Neutrophils # (Auto) 6.4 x10^3/uL (1.8-7.7) Lymphocytes # (Auto) 0.8 x10^3/uL (1.0-4.8) Monocytes # (Auto) 1.1 x10^3/uL (0.0-1.1) Eosinophils # (Auto) 0.0 x10^3/uL (0.0-0.7) Basophils # (Auto) 0.0 x10^3/uL (0.0-0.2) Test 07/01/19 20:50 07/02/19 04:30 Hemoglobin 6.7 g/dL (12.0-15.5) 7.6 g/dL (12.0-15.5) Hematocrit 19.2 % (36.0-47.0) 21.8 % (36.0-47.0) White Blood Count 11.8 x10^3/uL (4.0-11.0) Red Blood Count 2.44 x10^6/uL (3.50-5.40) Mean Corpuscular Volume 89 fL (79-100) Mean Corpuscular Hemoglobin 31 pg (25-35) Mean Corpuscular Hemoglobin Concent 35 g/dL (31-37) Red Cell Distribution Width 16.4 % (11.5-14.5) Platelet Count 154 x10^3/uL (140-400) Neutrophils (%) (Auto) 77 % (31-73) Lymphocytes (%) (Auto) 11 % (24-48) Monocytes (%) (Auto) 12 % (0-9) Eosinophils (%) (Auto) 0 % (0-3) Basophils (%) (Auto) 0 % (0-3) Neutrophils # (Auto) 9.0 x10^3/uL (1.8-7.7) Lymphocytes # (Auto) 1.3 x10^3/uL (1.0-4.8) Monocytes # (Auto) 1.4 x10^3/uL (0.0-1.1) Eosinophils # (Auto) 0.0 x10^3/uL (0.0-0.7) Basophils # (Auto) 0.0 x10^3/uL (0.0-0.2) Sodium Level 137 mmol/L (136-145) Potassium Level 5.5 mmol/L (3.5-5.1) Chloride Level 98 mmol/L (98-107) Carbon Dioxide Level 28 mmol/L (21-32) Anion Gap 11 (6-14) Blood Urea Nitrogen 115 mg/dL (7-20) Creatinine 8.9 mg/dL (0.6-1.0) Estimated GFR (Cockcroft-Gault) 5.4 Glucose Level 141 mg/dL (70-99) Calcium Level 7.5 mg/dL (8.5-10.1) Phosphorus Level 5.7 mg/dL (2.6-4.7) Albumin 2.0 g/dL (3.4-5.0) Assessment and Plan Assessmemt and Plan Problems Medical Problems: (1) Anemia Status: Acute (2) Hyperglycemia Status: Acute (3) Hypoalbuminemia Status: Acute (4) Hyponatremia Status: Acute (5) Upper GI bleeding Status: Acute Trace tricuspid regurgitation with an estimated PAP of 52 mmHg. Comment Review of Relevant I have reviewed the following items tamika (where applicable) has been applied. Labs Laboratory Tests Test 06/30/19 22:35 06/30/19 22:55 06/30/19 23:00 07/01/19 05:13 Prothrombin Time 14.5 SEC (11.7-14.0) Prothromb Time International Ratio 1.2 (0.8-1.1) Activated Partial Thromboplast Time 25 SEC (24-38) Gastric Fluid Occult Blood Positive (NEG) Stool Occult Blood Positive (NEG) White Blood Count 8.7 x10^3/uL (4.0-11.0) 7.1 x10^3/uL (4.0-11.0) Red Blood Count 1.33 x10^6/uL (3.50-5.40) 1.02 x10^6/uL (3.50-5.40) Hemoglobin 4.5 g/dL (12.0-15.5) 3.5 g/dL (12.0-15.5) Hematocrit 13.4 % (36.0-47.0) 10.3 % (36.0-47.0) Mean Corpuscular Volume 100 fL (79-100) 101 fL (79-100) Mean Corpuscular Hemoglobin 34 pg (25-35) 34 pg (25-35) Mean Corpuscular Hemoglobin Concent 34 g/dL (31-37) 34 g/dL (31-37) Red Cell Distribution Width 21.8 % (11.5-14.5) 21.9 % (11.5-14.5) Platelet Count 233 x10^3/uL (140-400) 196 x10^3/uL (140-400) Neutrophils (%) (Auto) 67 % (31-73) Lymphocytes (%) (Auto) 21 % (24-48) Monocytes (%) (Auto) 10 % (0-9) Eosinophils (%) (Auto) 2 % (0-3) Basophils (%) (Auto) 1 % (0-3) Neutrophils # (Auto) 5.8 x10^3/uL (1.8-7.7) Lymphocytes # (Auto) 1.8 x10^3/uL (1.0-4.8) Monocytes # (Auto) 0.9 x10^3/uL (0.0-1.1) Eosinophils # (Auto) 0.1 x10^3/uL (0.0-0.7) Basophils # (Auto) 0.0 x10^3/uL (0.0-0.2) Platelet Estimate Adequate (ADEQUATE) Polychromasia Slight Anisocytosis Mod Sodium Level 132 mmol/L (136-145) Potassium Level 4.1 mmol/L (3.5-5.1) Chloride Level 91 mmol/L (98-107) Carbon Dioxide Level 29 mmol/L (21-32) Anion Gap 12 (6-14) Blood Urea Nitrogen 78 mg/dL (7-20) Creatinine 7.9 mg/dL (0.6-1.0) Estimated GFR (Cockcroft-Gault) 6.2 BUN/Creatinine Ratio 10 (6-20) Glucose Level 185 mg/dL (70-99) Calcium Level 8.1 mg/dL (8.5-10.1) Total Bilirubin 0.4 mg/dL (0.2-1.0) Aspartate Amino Transf (AST/SGOT) 54 U/L (15-37) Alanine Aminotransferase (ALT/SGPT) 19 U/L (14-59) Alkaline Phosphatase 220 U/L (46-116) Total Protein 6.5 g/dL (6.4-8.2) Albumin 2.3 g/dL (3.4-5.0) Albumin/Globulin Ratio 0.5 (1.0-1.7) Test 07/01/19 09:00 07/01/19 12:38 07/01/19 16:30 07/01/19 17:50 Hemoglobin 6.9 g/dL (12.0-15.5) 7.8 g/dL (12.0-15.5) 7.8 g/dL (12.0-15.5) 7.2 g/dL (12.0-15.5) Hematocrit 19.7 % (36.0-47.0) 21.8 % (36.0-47.0) 22.6 % (36.0-47.0) 20.4 % (36.0-47.0) White Blood Count 6.7 x10^3/uL (4.0-11.0) 8.5 x10^3/uL (4.0-11.0) Red Blood Count 2.48 x10^6/uL (3.50-5.40) 2.32 x10^6/uL (3.50-5.40) Mean Corpuscular Volume 88 fL (79-100) 88 fL (79-100) Mean Corpuscular Hemoglobin 31 pg (25-35) 31 pg (25-35) Mean Corpuscular Hemoglobin Concent 36 g/dL (31-37) 35 g/dL (31-37) Red Cell Distribution Width 16.5 % (11.5-14.5) 17.1 % (11.5-14.5) Platelet Count 166 x10^3/uL (140-400) 175 x10^3/uL (140-400) Neutrophils (%) (Auto) 76 % (31-73) Lymphocytes (%) (Auto) 10 % (24-48) Monocytes (%) (Auto) 14 % (0-9) Eosinophils (%) (Auto) 0 % (0-3) Basophils (%) (Auto) 1 % (0-3) Neutrophils # (Auto) 6.4 x10^3/uL (1.8-7.7) Lymphocytes # (Auto) 0.8 x10^3/uL (1.0-4.8) Monocytes # (Auto) 1.1 x10^3/uL (0.0-1.1) Eosinophils # (Auto) 0.0 x10^3/uL (0.0-0.7) Basophils # (Auto) 0.0 x10^3/uL (0.0-0.2) Test 07/01/19 20:50 07/02/19 04:30 Hemoglobin 6.7 g/dL (12.0-15.5) 7.6 g/dL (12.0-15.5) Hematocrit 19.2 % (36.0-47.0) 21.8 % (36.0-47.0) White Blood Count 11.8 x10^3/uL (4.0-11.0) Red Blood Count 2.44 x10^6/uL (3.50-5.40) Mean Corpuscular Volume 89 fL (79-100) Mean Corpuscular Hemoglobin 31 pg (25-35) Mean Corpuscular Hemoglobin Concent 35 g/dL (31-37) Red Cell Distribution Width 16.4 % (11.5-14.5) Platelet Count 154 x10^3/uL (140-400) Neutrophils (%) (Auto) 77 % (31-73) Lymphocytes (%) (Auto) 11 % (24-48) Monocytes (%) (Auto) 12 % (0-9) Eosinophils (%) (Auto) 0 % (0-3) Basophils (%) (Auto) 0 % (0-3) Neutrophils # (Auto) 9.0 x10^3/uL (1.8-7.7) Lymphocytes # (Auto) 1.3 x10^3/uL (1.0-4.8) Monocytes # (Auto) 1.4 x10^3/uL (0.0-1.1) Eosinophils # (Auto) 0.0 x10^3/uL (0.0-0.7) Basophils # (Auto) 0.0 x10^3/uL (0.0-0.2) Sodium Level 137 mmol/L (136-145) Potassium Level 5.5 mmol/L (3.5-5.1) Chloride Level 98 mmol/L (98-107) Carbon Dioxide Level 28 mmol/L (21-32) Anion Gap 11 (6-14) Blood Urea Nitrogen 115 mg/dL (7-20) Creatinine 8.9 mg/dL (0.6-1.0) Estimated GFR (Cockcroft-Gault) 5.4 Glucose Level 141 mg/dL (70-99) Calcium Level 7.5 mg/dL (8.5-10.1) Phosphorus Level 5.7 mg/dL (2.6-4.7) Albumin 2.0 g/dL (3.4-5.0) Laboratory Tests Test 07/01/19 09:00 07/01/19 12:38 07/01/19 16:30 07/01/19 17:50 Hemoglobin 6.9 g/dL (12.0-15.5) 7.8 g/dL (12.0-15.5) 7.8 g/dL (12.0-15.5) 7.2 g/dL (12.0-15.5) Hematocrit 19.7 % (36.0-47.0) 21.8 % (36.0-47.0) 22.6 % (36.0-47.0) 20.4 % (36.0-47.0) White Blood Count 6.7 x10^3/uL (4.0-11.0) 8.5 x10^3/uL (4.0-11.0) Red Blood Count 2.48 x10^6/uL (3.50-5.40) 2.32 x10^6/uL (3.50-5.40) Mean Corpuscular Volume 88 fL (79-100) 88 fL (79-100) Mean Corpuscular Hemoglobin 31 pg (25-35) 31 pg (25-35) Mean Corpuscular Hemoglobin Concent 36 g/dL (31-37) 35 g/dL (31-37) Red Cell Distribution Width 16.5 % (11.5-14.5) 17.1 % (11.5-14.5) Platelet Count 166 x10^3/uL (140-400) 175 x10^3/uL (140-400) Neutrophils (%) (Auto) 76 % (31-73) Lymphocytes (%) (Auto) 10 % (24-48) Monocytes (%) (Auto) 14 % (0-9) Eosinophils (%) (Auto) 0 % (0-3) Basophils (%) (Auto) 1 % (0-3) Neutrophils # (Auto) 6.4 x10^3/uL (1.8-7.7) Lymphocytes # (Auto) 0.8 x10^3/uL (1.0-4.8) Monocytes # (Auto) 1.1 x10^3/uL (0.0-1.1) Eosinophils # (Auto) 0.0 x10^3/uL (0.0-0.7) Basophils # (Auto) 0.0 x10^3/uL (0.0-0.2) Test 07/01/19 20:50 07/02/19 04:30 Hemoglobin 6.7 g/dL (12.0-15.5) 7.6 g/dL (12.0-15.5) Hematocrit 19.2 % (36.0-47.0) 21.8 % (36.0-47.0) White Blood Count 11.8 x10^3/uL (4.0-11.0) Red Blood Count 2.44 x10^6/uL (3.50-5.40) Mean Corpuscular Volume 89 fL (79-100) Mean Corpuscular Hemoglobin 31 pg (25-35) Mean Corpuscular Hemoglobin Concent 35 g/dL (31-37) Red Cell Distribution Width 16.4 % (11.5-14.5) Platelet Count 154 x10^3/uL (140-400) Neutrophils (%) (Auto) 77 % (31-73) Lymphocytes (%) (Auto) 11 % (24-48) Monocytes (%) (Auto) 12 % (0-9) Eosinophils (%) (Auto) 0 % (0-3) Basophils (%) (Auto) 0 % (0-3) Neutrophils # (Auto) 9.0 x10^3/uL (1.8-7.7) Lymphocytes # (Auto) 1.3 x10^3/uL (1.0-4.8) Monocytes # (Auto) 1.4 x10^3/uL (0.0-1.1) Eosinophils # (Auto) 0.0 x10^3/uL (0.0-0.7) Basophils # (Auto) 0.0 x10^3/uL (0.0-0.2) Sodium Level 137 mmol/L (136-145) Potassium Level 5.5 mmol/L (3.5-5.1) Chloride Level 98 mmol/L (98-107) Carbon Dioxide Level 28 mmol/L (21-32) Anion Gap 11 (6-14) Blood Urea Nitrogen 115 mg/dL (7-20) Creatinine 8.9 mg/dL (0.6-1.0) Estimated GFR (Cockcroft-Gault) 5.4 Glucose Level 141 mg/dL (70-99) Calcium Level 7.5 mg/dL (8.5-10.1) Phosphorus Level 5.7 mg/dL (2.6-4.7) Albumin 2.0 g/dL (3.4-5.0) Medications Current Medications Ondansetron HCl (Zofran) 4 mg 1X ONCE IV Last administered on 07/01/19at 05:25; Start 06/30/19 at 23:00; Stop 06/30/19 at 23:01; Status DC Pantoprazole Sodium (PROTONIX VIAL for IV PUSH) 40 mg 1X ONCE IVP ; Start 06/30/19 at 23:00; Stop 06/30/19 at 23:29; Status DC Pantoprazole Sodium (PROTONIX VIAL for IV PUSH) 80 mg 1X ONCE IVP Last administered on 07/01/19at 05:25; Start 06/30/19 at 23:45; Stop 06/30/19 at 23:46; Status DC Pantoprazole Sodium 80 mg/ Sodium Chloride 100 ml @ 10 mls/hr Q10H IV Last administered on 07/01/19at 17:36; Start 07/01/19 at 00:00; Stop 07/01/19 at 20:24; Status DC Fentanyl Citrate (Fentanyl 2ml Vial) 50 mcg 1X ONCE IM Last administered on 07/01/19at 05:25; Start 07/01/19 at 01:30; Stop 07/01/19 at 01:31; Status DC Lidocaine HCl 20 ml STK-MED ONCE .ROUTE ; Start 07/01/19 at 01:27; Stop 07/01/19 at 01:27; Status DC Sodium Chloride (NORMAL SALINE FLUSH for STERILE FIELD) 10 ml STK-MED ONCE .ROUTE ; Start 07/01/19 at 01:27; Stop 07/01/19 at 01:27; Status DC Sodium Chloride (NORMAL SALINE FLUSH for STERILE FIELD) 10 ml STK-MED ONCE .ROUTE ; Start 07/01/19 at 03:34; Stop 07/01/19 at 03:36; Status DC Pantoprazole Sodium (PROTONIX VIAL for IV PUSH) 40 mg STK-MED ONCE IVP ; Start 07/01/19 at 05:19; Stop 07/01/19 at 05:20; Status DC Ondansetron HCl (Zofran) 4 mg STK-MED ONCE .ROUTE ; Start 07/01/19 at 05:20; Stop 07/01/19 at 05:20; Status DC Ringer's Solution 1,000 ml @ 75 mls/hr 1X ONCE IV ; Start 07/01/19 at 10:45; Stop 07/02/19 at 00:04; Status DC Sodium Chloride 1,000 ml @ 100 mls/hr Q10H IV Last administered on 07/01/19at 10:50; Start 07/01/19 at 11:00 Epinephrine HCl (EPINEPHrine SYRINGE) 6 mg STK-MED ONCE SQ Last administered on 07/01/19at 11:15; Start 07/01/19 at 11:03; Stop 07/01/19 at 11:15; Status DC Epinephrine HCl (EPINEPHrine SYRINGE) 1 mg STK-MED ONCE .ROUTE ; Start 07/01/19 at 11:53; Stop 07/01/19 at 11:53; Status DC Iohexol (Omnipaque 240 Mg/ml) 100 ml STK-MED ONCE .ROUTE ; Start 07/01/19 at 12:01; Stop 07/01/19 at 12:02; Status DC Lidocaine/Sodium Bicarbonate (Buffered Lidocaine 1%) 3 ml STK-MED ONCE .ROUTE ; Start 07/01/19 at 12:02; Stop 07/01/19 at 12:02; Status DC Heparin Sodium/ Sodium Chloride 1,500 ml @ As Directed STK-MED ONCE .ROUTE ; Start 07/01/19 at 12:02; Stop 07/01/19 at 12:02; Status DC Iohexol (Omnipaque 240 Mg/ml) 50 ml STK-MED ONCE .ROUTE ; Start 07/01/19 at 12:02; Stop 07/01/19 at 12:02; Status DC Iohexol (Omnipaque 240 Mg/ml) 50 ml STK-MED ONCE .ROUTE ; Start 07/01/19 at 12:46; Stop 07/01/19 at 12:46; Status DC Heparin Sodium/ Sodium Chloride (HEPARIN for ARTERIAL LINE FLUSH) 2,000 unit 1X ONCE IART Last administered on 07/01/19at 14:20; Start 07/01/19 at 13:15; Stop 07/01/19 at 13:17; Status DC Heparin Sodium/ Sodium Chloride (HEPARIN for ARTERIAL LINE FLUSH) 1,000 unit 1X ONCE IART Last administered on 07/01/19at 14:20; Start 07/01/19 at 13:15; Stop 07/01/19 at 13:17; Status DC Lidocaine/Sodium Bicarbonate (Buffered Lidocaine 1%) 3 ml 1X ONCE IJ Last administered on 07/01/19at 14:20; Start 07/01/19 at 13:15; Stop 07/01/19 at 13:17; Status DC Iohexol (Omnipaque 240 Mg/ml) 50 ml 1X ONCE IART ; Start 07/01/19 at 13:15; Stop 07/01/19 at 13:17; Status DC Iohexol (Omnipaque 240 Mg/ml) 100 ml 1X ONCE INT ART Last administered on 07/01/19at 14:20; Start 07/01/19 at 13:15; Stop 07/01/19 at 13:17; Status DC Iohexol (Omnipaque 300 Mg/ml) 100 ml STK-MED ONCE .ROUTE ; Start 07/01/19 at 13:03; Stop 07/01/19 at 13:03; Status DC Info (CONTRAST GIVEN -- Rx MONITORING) 1 each PRN DAILY PRN MC SEE COMMENTS; Start 07/01/19 at 13:15; Stop 07/03/19 at 13:14 Multivitamins 10 ml/Thiamine HCl 100 mg/Folic Acid 1 mg/Sodium Chloride 1,011.2 ml @ 100 mls/ hr DAILY IV Last administered on 07/01/19at 17:12; Start 07/01/19 at 14:00; Stop 07/05/19 at 19:07 Multivitamins (Thera M Plus) 1 tab DAILY PO ; Start 07/06/19 at 09:00 Folic Acid (Folic Acid) 1 mg DAILY PO ; Start 07/06/19 at 09:00 Thiamine HCl 100 mg/Dextrose 51 ml @ 100 mls/hr DAILY IV ; Start 07/06/19 at 09:00; Stop 07/10/19 at 09:31 Lorazepam (Ativan) 4 mg PRN Q1HR PRN PO For CIWA 8-14; Start 07/01/19 at 13:15 Lorazepam (Ativan) 8 mg PRN Q1HR PRN PO For CIWA 15 or greater; Start 07/01/19 at 13:15 Lorazepam (Ativan Inj) 2 mg PRN Q1HR PRN IV For CIWA 8-14 Last administered on 07/01/19at 17:12; Start 07/01/19 at 13:15 Lorazepam (Ativan Inj) 4 mg PRN Q1HR PRN IV For CIWA 15 or greater; Start 07/01/19 at 13:15 Haloperidol Lactate (Haldol Inj) 5 mg PRN Q4HRS PRN IVP Hallucinatns,Confusn,Delirium; Start 07/01/19 at 13:15 Diphenhydramine HCl (Benadryl) 25 mg PRN Q15MIN PRN IVP EPS symptoms 2'Haldol admin; Start 07/01/19 at 13:15 Clonidine HCl (Catapres) 0.1 mg PRN Q1HR PRN PO SBP > 180 or DBP > 100, MRX3; Start 07/01/19 at 13:15 Lorazepam (Ativan Inj) 2 mg PRN Q15MIN PRN IV SEE COMMENTS; Start 07/01/19 at 13:15 Lorazepam (Ativan Inj) 4 mg PRN Q15MIN PRN IV SEE COMMENTS; Start 07/01/19 at 13:15 Acetaminophen (Tylenol) 650 mg PRN Q6HRS PRN PO Headaches, Temp > 101.5'; Start 07/01/19 at 13:15 Lorazepam (Ativan Inj) 0.5 mg PRN Q6HRS PRN IV ANXIETY / AGITATION; Start at 13:15 Ondansetron HCl (Zofran) 4 mg PRN Q6HRS PRN IV NAUSEA/VOMITING Last administered on 07/01/19at 15:32; Start 07/01/19 at 13:15 Sodium Chloride (Normal Saline Flush) 3 ml QSHIFT PRN IV AFTER MEDS AND BLOOD DRAWS; Start 07/01/19 at 13:15 Lactobacillus Rhamnosus (Culturelle) 1 cap BID PO ; Start 07/01/19 at 21:00 Polyethylene Glycol (miraLAX PACKET) 17 gm PRN DAILY PRN PO CONSTIPATION; Start 07/01/19 at 13:30 Calcium Acetate (Phoslo) 667 mg TIDWMEALS PO ; Start 07/01/19 at 17:00 Carvedilol (Coreg) 25 mg BIDWMEALS PO ; Start 07/01/19 at 17:00 Fentanyl Citrate (Fentanyl 2ml Vial) 100 mcg STK-MED ONCE .ROUTE ; Start 07/01/19 at 14:04; Stop 07/01/19 at 14:04; Status DC Fentanyl Citrate (Fentanyl 2ml Vial) 100 mcg 1X ONCE IV ; Start 07/01/19 at 14:15; Stop 07/01/19 at 14:18; Status DC Pantoprazole Sodium 80 mg/ Sodium Chloride 100 ml @ 10 mls/hr Q10H IV Last administered on 07/02/19at 03:43; Start 07/02/19 at 02:00 Sodium Chloride 1,000 ml @ 1,000 mls/hr Q1H PRN IV hypotension; Start 07/02/19 at 07:00; Stop 07/02/19 at 12:59 Sodium Chloride 1,000 ml @ 400 mls/hr Q2H30M PRN IV PATENCY; Start 07/02/19 at 07:00; Stop 07/02/19 at 18:59 Info (PHARMACY MONITORING -- do not chart) 1 each PRN DAILY PRN MC SEE COMMENTS; Start 07/02/19 at 08:15; Status UNV Info (PHARMACY MONITORING -- do not chart) 1 each PRN DAILY PRN MC SEE COMMENTS; Start 07/02/19 at 08:15 Active Scripts Active Protonix (Pantoprazole Sodium) 20 Mg Tablet.dr 40 Tab PO DAILY Vancomycin Hcl 500 Mg Vial 125 Mg PO [id number] 13 Days Culturelle (Lactobacillus Rhamnosus Gg) 1 Each Cap.sprink 1 Cap PO BID 14 Days Reported Aleve Pm Caplet (Naproxen Na-Diphenhydramin HCl) 1 Each Tablet 1 Each PO HS PRN Nephro-Edward Tablet (Folic Acid/Vitamin B Comp W-C) 0.8 Mg Tablet 1 Tab PO DAILY Calcium Acetate 667 Mg Tablet 667 Mg PO TIDWMEALS Carvedilol 25 Mg Tablet 25 Mg PO BID Folic Acid 1 Mg Tablet 1 Mg PO DAILY Miralax (Polyethylene Glycol 3350) 17 Gm Powd.pack 1 Packet PO PRN DAILY PRN Amlodipine Besylate 10 Mg Tablet 10 Mg PO DAILY Vitals/I & O Vital Sign - Last 24 Hours 07/01/19 07/01/19 07/01/19 07/01/19 09:00 10:00 10:35 10:50 Temp 98.7 98.7 Pulse 92 92 89 Resp 20 B/P (MAP) 161/64 (96) 148/61 (90) 95/40 Pulse Ox 98 99 O2 Delivery Room Air Room Air Room Air O2 Flow Rate 2.0 07/01/19 07/01/19 07/01/19 07/01/19 11:22 11:37 11:52 12:00 Temp 98.0 98.0 Pulse 97 98 110 Resp 20 B/P (MAP) 167/74 171/64 174/74 Pulse Ox 97 99 94 O2 Delivery Nasal Cannula Nasal Cannula Nasal Cannula Nasal Cannula O2 Flow Rate 2 2.0 07/01/19 07/01/19 07/01/19 07/01/19 12:00 12:20 14:26 15:00 Temp 98.6 98.6 98.6 98.6 Pulse 94 93 97 94 Resp 16 18 B/P (MAP) 178/59 (98) 180/88 150/74 (99) Pulse Ox 99 100 O2 Delivery Nasal Cannula Nasal Cannula Nasal Cannula O2 Flow Rate 2.0 2.0 2.0 9/4/07/01/19 07/01/19 07/01/19 15:15 15:30 15:45 16:00 Temp 99.0 99.0 Pulse 94 94 94 94 Resp 16 16 18 B/P (MAP) 150/56 (87) 168/59 (95) 162/59 (93) 153/63 (93) Pulse Ox 100 99 100 100 O2 Delivery Nasal Cannula Nasal Cannula Nasal Cannula Nasal Cannula O2 Flow Rate 2.0 2.0 2.0 2.0 07/01/19 07/01/19 07/01/19 07/01/19 16:30 16:46 17:00 18:00 Pulse 94 94 100 Resp 18 28 B/P (MAP) 144/63 (90) 155/49 (84) 138/66 (90) Pulse Ox 100 100 100 O2 Delivery Nasal Cannula Nasal Cannula Nasal Cannula Nasal Cannula O2 Flow Rate 2.0 2.0 2.0 2.0 07/01/19 07/01/19 07/01/19 07/01/19 19:00 20:00 20:00 21:00 Temp 98.9 98.9 Pulse 101 102 101 Resp B/P (MAP) 152/54 (86) 137/54 (81) 166/53 (90) Pulse Ox 100 100 100 O2 Delivery Nasal Cannula Nasal Cannula Nasal Cannula Nasal Cannula O2 Flow Rate 2.0 2.0 2.0 2.0 07/01/19 07/01/19 07/01/19 07/01/19 22:00 22:00 22:15 23:00 Temp 98.8 98.8 98.8 98.8 98.8 98.8 Pulse 100 101 100 99 Resp B/P (MAP) 165/62 (96) 171/64 165/62 166/81 (109) Pulse Ox 100 100 O2 Delivery Nasal Cannula Nasal Cannula O2 Flow Rate 2.0 2.0 07/01/19 07/02/19 07/02/19 07/02/19 23:00 00:00 00:00 00:00 Temp 98.8 98.9 98.9 98.8 98.9 98.9 Pulse 99 98 98 Resp B/P (MAP) 166/81 164/72 164/72 (102) Pulse Ox 100 O2 Delivery Nasal Cannula Nasal Cannula O2 Flow Rate 2.0 2.0 07/02/19 07/02/19 07/02/19 07/02/19 01:00 01:00 02:00 03:00 Temp 98.5 98.5 98.5 98.5 Pulse 98 98 97 98 Resp 17 17 28 28 B/P (MAP) 168/69 (102) 168/69 184/69 (107) 163/58 (93) Pulse Ox 100 100 100 O2 Delivery Nasal Cannula Nasal Cannula Nasal Cannula O2 Flow Rate 2.0 2.0 2.0 07/02/19 07/02/19 07/02/19 07/02/19 04:00 04:00 05:00 06:00 Temp 98.6 98.6 Pulse 94 95 100 Resp 32 28 28 B/P (MAP) 167/69 (101) 152/60 (90) 150/58 (88) Pulse Ox 100 100 100 O2 Delivery Nasal Cannula Nasal Cannula Nasal Cannula Nasal Cannula O2 Flow Rate 2.0 2.0 2.0 2.0 07/02/19 07/02/19 07:00 07:49 Temp 98.7 98.7 Pulse 94 Resp 16 B/P (MAP) 156/60 (92) Pulse Ox 100 O2 Delivery Nasal Cannula Nasal Cannula O2 Flow Rate 2.0 2.0 Intake and Output 07/01/19 07/01/19 07/02/19 15:00 23:00 07:00 Intake Total 50 ml 1463 ml 0 ml Output Total 654 ml 1 ml Balance 50 ml 809 ml -1 ml ASHIA MOSS MD Jul 02, 2019 08:39
--- NOTE | 2019-07-02 08:58 | PDOC2 ---
CONSULT Date of Consult Date of Consult DATE: 07/02/19 TIME: 08:54 Reason for Consult Reason for Consult: Right-sided pelvis fracture Referring Physician Referring Physician: Amanda Identification/Chief Complaint Chief Complaint Unobtainable Source Source: Chart review History of Present Illness Reason for Visit: Patient is a 64-year-old female admitted for a new GI bleed. She has history of end-stage renal disease. She is not able to provide him information regarding any falls. She responds very minimally to questions. Past Medical History Cardiovascular: HTN, Hyperlipidemia Pulmonary: No pertinent hx GI: Constipation, GERD, GI bleed Heme/Onc: Anemia NOS Hepatobiliary: No pertinent hx, Hep A/B/C Psych: Addictions Rheumatologic: Rheumatoid arthritis Infectious disease: No pertinent hx Renal/: Chronic renal failure, Hematuria Endocrine: Diabetes, Hyperparathyroidism Past Surgical History Past Surgical History: Cholecystectomy, Tonsillectomy, Hysterectomy, Other Family History Family History: Alcohol Abuse, High Cholestrol, Hypertension, Family History Unknown Social History <1 pack per day ALCOHOL: heavy Drugs: None Current Problem List Problem List Problems Medical Problems: (1) Anemia Status: Acute (2) Hyperglycemia Status: Acute (3) Hypoalbuminemia Status: Acute (4) Hyponatremia Status: Acute (5) Upper GI bleeding Status: Acute Current Medications Current Medications Current Medications Ondansetron HCl (Zofran) 4 mg 1X ONCE IV Last administered on 07/01/19at 05:25; Start 06/30/19 at 23:00; Stop 06/30/19 at 23:01; Status DC Pantoprazole Sodium (PROTONIX VIAL for IV PUSH) 40 mg 1X ONCE IVP ; Start 06/30/19 at 23:00; Stop 06/30/19 at 23:29; Status DC Pantoprazole Sodium (PROTONIX VIAL for IV PUSH) 80 mg 1X ONCE IVP Last administered on 07/01/19at 05:25; Start 06/30/19 at 23:45; Stop 06/30/19 at 23:46; Status DC Pantoprazole Sodium 80 mg/ Sodium Chloride 100 ml @ 10 mls/hr Q10H IV Last administered on 07/01/19at 17:36; Start 07/01/19 at 00:00; Stop 07/01/19 at 20:24; Status DC Fentanyl Citrate (Fentanyl 2ml Vial) 50 mcg 1X ONCE IM Last administered on 07/01/19at 05:25; Start 07/01/19 at 01:30; Stop 07/01/19 at 01:31; Status DC Lidocaine HCl 20 ml STK-MED ONCE .ROUTE ; Start 07/01/19 at 01:27; Stop 07/01/19 at 01:27; Status DC Sodium Chloride (NORMAL SALINE FLUSH for STERILE FIELD) 10 ml STK-MED ONCE .ROUTE ; Start 07/01/19 at 01:27; Stop 07/01/19 at 01:27; Status DC Sodium Chloride (NORMAL SALINE FLUSH for STERILE FIELD) 10 ml STK-MED ONCE .ROUTE ; Start 07/01/19 at 03:34; Stop 07/01/19 at 03:36; Status DC Pantoprazole Sodium (PROTONIX VIAL for IV PUSH) 40 mg STK-MED ONCE IVP ; Start 07/01/19 at 05:19; Stop 07/01/19 at 05:20; Status DC Ondansetron HCl (Zofran) 4 mg STK-MED ONCE .ROUTE ; Start 07/01/19 at 05:20; Stop 07/01/19 at 05:20; Status DC Ringer's Solution 1,000 ml @ 75 mls/hr 1X ONCE IV ; Start 07/01/19 at 10:45; Stop 07/02/19 at 00:04; Status DC Sodium Chloride 1,000 ml @ 100 mls/hr Q10H IV Last administered on 07/01/19at 10:50; Start 07/01/19 at 11:00 Epinephrine HCl (EPINEPHrine SYRINGE) 6 mg STK-MED ONCE SQ Last administered on 07/01/19at 11:15; Start 07/01/19 at 11:03; Stop 07/01/19 at 11:15; Status DC Epinephrine HCl (EPINEPHrine SYRINGE) 1 mg STK-MED ONCE .ROUTE ; Start 07/01/19 at 11:53; Stop 07/01/19 at 11:53; Status DC Iohexol (Omnipaque 240 Mg/ml) 100 ml STK-MED ONCE .ROUTE ; Start 07/01/19 at 12:01; Stop 07/01/19 at 12:02; Status DC Lidocaine/Sodium Bicarbonate (Buffered Lidocaine 1%) 3 ml STK-MED ONCE .ROUTE ; Start 07/01/19 at 12:02; Stop 07/01/19 at 12:02; Status DC Heparin Sodium/ Sodium Chloride 1,500 ml @ As Directed STK-MED ONCE .ROUTE ; Start 07/01/19 at 12:02; Stop 07/01/19 at 12:02; Status DC Iohexol (Omnipaque 240 Mg/ml) 50 ml STK-MED ONCE .ROUTE ; Start 07/01/19 at 12:02; Stop 07/01/19 at 12:02; Status DC Iohexol (Omnipaque 240 Mg/ml) 50 ml STK-MED ONCE .ROUTE ; Start 07/01/19 at 12:46; Stop 07/01/19 at 12:46; Status DC Heparin Sodium/ Sodium Chloride (HEPARIN for ARTERIAL LINE FLUSH) 2,000 unit 1X ONCE IART Last administered on 07/01/19at 14:20; Start 07/01/19 at 13:15; Stop 07/01/19 at 13:17; Status DC Heparin Sodium/ Sodium Chloride (HEPARIN for ARTERIAL LINE FLUSH) 1,000 unit 1X ONCE IART Last administered on 07/01/19at 14:20; Start 07/01/19 at 13:15; Stop 07/01/19 at 13:17; Status DC Lidocaine/Sodium Bicarbonate (Buffered Lidocaine 1%) 3 ml 1X ONCE IJ Last administered on 07/01/19at 14:20; Start 07/01/19 at 13:15; Stop 07/01/19 at 13:17; Status DC Iohexol (Omnipaque 240 Mg/ml) 50 ml 1X ONCE IART ; Start 07/01/19 at 13:15; Stop 07/01/19 at 13:17; Status DC Iohexol (Omnipaque 240 Mg/ml) 100 ml 1X ONCE INT ART Last administered on 07/01/19at 14:20; Start 07/01/19 at 13:15; Stop 07/01/19 at 13:17; Status DC Iohexol (Omnipaque 300 Mg/ml) 100 ml STK-MED ONCE .ROUTE ; Start 07/01/19 at 13:03; Stop 07/01/19 at 13:03; Status DC Info (CONTRAST GIVEN -- Rx MONITORING) 1 each PRN DAILY PRN MC SEE COMMENTS; Start 07/01/19 at 13:15; Stop 07/03/19 at 13:14 Multivitamins 10 ml/Thiamine HCl 100 mg/Folic Acid 1 mg/Sodium Chloride 1,011.2 ml @ 100 mls/ hr DAILY IV Last administered on 07/01/19at 17:12; Start 07/01/19 at 14:00; Stop 07/05/19 at 19:07 Multivitamins (Thera M Plus) 1 tab DAILY PO ; Start 07/06/19 at 09:00 Folic Acid (Folic Acid) 1 mg DAILY PO ; Start 07/06/19 at 09:00 Thiamine HCl 100 mg/Dextrose 51 ml @ 100 mls/hr DAILY IV ; Start 07/06/19 at 09:00; Stop 07/10/19 at 09:31 Lorazepam (Ativan) 4 mg PRN Q1HR PRN PO For CIWA 8-14; Start 07/01/19 at 13:15 Lorazepam (Ativan) 8 mg PRN Q1HR PRN PO For CIWA 15 or greater; Start 07/01/19 at 13:15 Lorazepam (Ativan Inj) 2 mg PRN Q1HR PRN IV For CIWA 8-14 Last administered on 07/01/19at 17:12; Start 07/01/19 at 13:15 Lorazepam (Ativan Inj) 4 mg PRN Q1HR PRN IV For CIWA 15 or greater; Start 07/01/19 at 13:15 Haloperidol Lactate (Haldol Inj) 5 mg PRN Q4HRS PRN IVP Hallucinatns,Confusn,Delirium; Start 07/01/19 at 13:15 Diphenhydramine HCl (Benadryl) 25 mg PRN Q15MIN PRN IVP EPS symptoms 2'Haldol admin; Start 07/01/19 at 13:15 Clonidine HCl (Catapres) 0.1 mg PRN Q1HR PRN PO SBP > 180 or DBP > 100, MRX3; Start 07/01/19 at 13:15 Lorazepam (Ativan Inj) 2 mg PRN Q15MIN PRN IV SEE COMMENTS; Start 07/01/19 at 13:15 Lorazepam (Ativan Inj) 4 mg PRN Q15MIN PRN IV SEE COMMENTS; Start 07/01/19 at 13:15 Acetaminophen (Tylenol) 650 mg PRN Q6HRS PRN PO Headaches, Temp > 101.5'; Start 07/01/19 at 13:15 Lorazepam (Ativan Inj) 0.5 mg PRN Q6HRS PRN IV ANXIETY / AGITATION; Start 07/01/19 at 13:15 Ondansetron HCl (Zofran) 4 mg PRN Q6HRS PRN IV NAUSEA/VOMITING Last ad ministered on 07/01/19at 15:32; Start 07/01/19 at 13:15 Sodium Chloride (Normal Saline Flush) 3 ml QSHIFT PRN IV AFTER MEDS AND BLOOD DRAWS; Start 07/01/19 at 13:15 Lactobacillus Rhamnosus (Culturelle) 1 cap BID PO ; Start 07/01/19 at 21:00 Polyethylene Glycol (miraLAX PACKET) 17 gm PRN DAILY PRN PO CONSTIPATION; Start 07/01/19 at 13:30 Calcium Acetate (Phoslo) 667 mg TIDWMEALS PO ; Start 07/01/19 at 17:00 Carvedilol (Coreg) 25 mg BIDWMEALS PO ; Start 07/01/19 at 17:00 Fentanyl Citrate (Fentanyl 2ml Vial) 100 mcg STK-MED ONCE .ROUTE ; Start 07/01/19 at 14:04; Stop 07/01/19 at 14:04; Status DC Fentanyl Citrate (Fentanyl 2ml Vial) 100 mcg 1X ONCE IV ; Start 07/01/19 at 14:15; Stop 07/01/19 at 14:18; Status DC Pantoprazole Sodium 80 mg/ Sodium Chloride 100 ml @ 10 mls/hr Q10H IV Last administered on 07/02/19at 03:43; Start 07/02/19 at 02:00 Sodium Chloride 1,000 ml @ 1,000 mls/hr Q1H PRN IV hypotension; Start 07/02/19 at 07:00; Stop 07/02/19 at 12:59 Sodium Chloride 1,000 ml @ 400 mls/hr Q2H30M PRN IV PATENCY; Start 07/02/19 at 07:00; Stop 07/02/19 at 18:59 Info (PHARMACY MONITORING -- do not chart) 1 each PRN DAILY PRN MC SEE COMMENTS; Start 07/02/19 at 08:15; Status UNV Info (PHARMACY MONITORING -- do not chart) 1 each PRN DAILY PRN MC SEE COMMENTS; Start 07/02/19 at 08:15 Active Scripts Active Protonix (Pantoprazole Sodium) 20 Mg Tablet.dr 40 Tab PO DAILY Vancomycin Hcl 500 Mg Vial 125 Mg PO [id number] 13 Days Culturelle (Lactobacillus Rhamnosus Gg) 1 Each Cap.sprink 1 Cap PO BID 14 Days Reported Aleve Pm Caplet (Naproxen Na-Diphenhydramin HCl) 1 Each Tablet 1 Each PO HS PRN Nephro-Edward Tablet (Folic Acid/Vitamin B Comp W-C) 0.8 Mg Tablet 1 Tab PO DAILY Calcium Acetate 667 Mg Tablet 667 Mg PO TIDWMEALS Carvedilol 25 Mg Tablet 25 Mg PO BID Folic Acid 1 Mg Tablet 1 Mg PO DAILY Miralax (Polyethylene Glycol 3350) 17 Gm Powd.pack 1 Packet PO PRN DAILY PRN Amlodipine Besylate 10 Mg Tablet 10 Mg PO DAILY Allergies Allergies: Coded Allergies: I S O L A T I O N *CONTACT* (Verified Allergy, Unknown, 07/01/19) chronic C.diff acetaminophen (Verified Adverse Reaction, Intermediate, Nausea and Vomiting, 07/01/19) ROS Review of System Review of systems is unobtainable secondary to patient's drowsiness Physical Exam General: No acute distress, Other (she responds minimally to yes and no questions) HEENT: Atraumatic, EOMI Lungs: Other (respirations aren't labored with symmetric chest rise) Heart: Regular rate Abdomen: Soft, No tenderness Extremities: No edema, Other (dorsalis pedis 1+) Neuro: Strength at 5/5 X4 ext, Sensation intact Psych/Mental Status: Other (she is drowsy, she follows some simple commands and answers some yes and no questions, has trouble keeping her eyes open) MUSCULOSKELETAL: Other (examination of her bilateral lower extremities reveals no gross deformity. She has tenderness over her right hip region and lower abdomen. She has pain with moving the right hip. No tenderness to knees feet or ankles.) Vitals VITALS Vital Signs Date Time Temp Pulse Resp B/P (MAP) Pulse Ox O2 Delivery O2 Flow Rate FiO2 07/02/19 07:49 Nasal Cannula 2.0 07/02/19 07:00 98.7 94 16 156/60 (92) 100 98.7 Labs Labs Laboratory Tests Test 06/30/19 22:35 06/30/19 22:55 06/30/19 23:00 07/01/19 05:13 Prothrombin Time 14.5 SEC (11.7-14.0) Prothromb Time International Ratio 1.2 (0.8-1.1) Activated Partial Thromboplast Time 25 SEC (24-38) Gastric Fluid Occult Blood Positive (NEG) Stool Occult Blood Positive (NEG) White Blood Count 8.7 x10^3/uL (4.0-11.0) 7.1 x10^3/uL (4.0-11.0) Red Blood Count 1.33 x10^6/uL (3.50-5.40) 1.02 x10^6/uL (3.50-5.40) Hemoglobin 4.5 g/dL (12.0-15.5) 3.5 g/dL (12.0-15.5) Hematocrit 13.4 % (36.0-47.0) 10.3 % (36.0-47.0) Mean Corpuscular Volume 100 fL (79-100) 101 fL (79-100) Mean Corpuscular Hemoglobin 34 pg (25-35) 34 pg (25-35) Mean Corpuscular Hemoglobin Concent 34 g/dL (31-37) 34 g/dL (31-37) Red Cell Distribution Width 21.8 % (11.5-14.5) 21.9 % (11.5-14.5) Platelet Count 233 x10^3/uL (140-400) 196 x10^3/uL (140-400) Neutrophils (%) (Auto) 67 % (31-73) Lymphocytes (%) (Auto) 21 % (24-48) Monocytes (%) (Auto) 10 % (0-9) Eosinophils (%) (Auto) 2 % (0-3) Basophils (%) (Auto) 1 % (0-3) Neutrophils # (Auto) 5.8 x10^3/uL (1.8-7.7) Lymphocytes # (Auto) 1.8 x10^3/uL (1.0-4.8) Monocytes # (Auto) 0.9 x10^3/uL (0.0-1.1) Eosinophils # (Auto) 0.1 x10^3/uL (0.0-0.7) Basophils # (Auto) 0.0 x10^3/uL (0.0-0.2) Platelet Estimate Adequate (ADEQUATE) Polychromasia Slight Anisocytosis Mod Sodium Level 132 mmol/L (136-145) Potassium Level 4.1 mmol/L (3.5-5.1) Chloride Level 91 mmol/L (98-107) Carbon Dioxide Level 29 mmol/L (21-32) Anion Gap 12 (6-14) Blood Urea Nitrogen 78 mg/dL (7-20) Creatinine 7.9 mg/dL (0.6-1.0) Estimated GFR (Cockcroft-Gault) 6.2 BUN/Creatinine Ratio 10 (6-20) Glucose Level 185 mg/dL (70-99) Calcium Level 8.1 mg/dL (8.5-10.1) Total Bilirubin 0.4 mg/dL (0.2-1.0) Aspartate Amino Transf (AST/SGOT) 54 U/L (15-37) Alanine Aminotransferase (ALT/SGPT) 19 U/L (14-59) Alkaline Phosphatase 220 U/L (46-116) Total Protein 6.5 g/dL (6.4-8.2) Albumin 2.3 g/dL (3.4-5.0) Albumin/Globulin Ratio 0.5 (1.0-1.7) Test 07/01/19 09:00 07/01/19 12:38 07/01/19 16:30 07/01/19 17:50 Hemoglobin 6.9 g/dL (12.0-15.5) 7.8 g/dL (12.0-15.5) 7.8 g/dL (12.0-15.5) 7.2 g/dL (12.0-15.5) Hematocrit 19.7 % (36.0-47.0) 21.8 % (36.0-47.0) 22.6 % (36.0-47.0) 20.4 % (36.0-47.0) White Blood Count 6.7 x10^3/uL (4.0-11.0) 8.5 x10^3/uL (4.0-11.0) Red Blood Count 2.48 x10^6/uL (3.50-5.40) 2.32 x10^6/uL (3.50-5.40) Mean Corpuscular Volume 88 fL (79-100) 88 fL (79-100) Mean Corpuscular Hemoglobin 31 pg (25-35) 31 pg (25-35) Mean Corpuscular Hemoglobin Concent 36 g/dL (31-37) 35 g/dL (31-37) Red Cell Distribution Width 16.5 % (11.5-14.5) 17.1 % (11.5-14.5) Platelet Count 166 x10^3/uL (140-400) 175 x10^3/uL (140-400) Neutrophils (%) (Auto) 76 % (31-73) Lymphocytes (%) (Auto) 10 % (24-48) Monocytes (%) (Auto) 14 % (0-9) Eosinophils (%) (Auto) 0 % (0-3) Basophils (%) (Auto) 1 % (0-3) Neutrophils # (Auto) 6.4 x10^3/uL (1.8-7.7) Lymphocytes # (Auto) 0.8 x10^3/uL (1.0-4.8) Monocytes # (Auto) 1.1 x10^3/uL (0.0-1.1) Eosinophils # (Auto) 0.0 x10^3/uL (0.0-0.7) Basophils # (Auto) 0.0 x10^3/uL (0.0-0.2) Test 07/01/19 20:50 07/02/19 04:30 Hemoglobin 6.7 g/dL (12.0-15.5) 7.6 g/dL (12.0-15.5) Hematocrit 19.2 % (36.0-47.0) 21.8 % (36.0-47.0) White Blood Count 11.8 x10^3/uL (4.0-11.0) Red Blood Count 2.44 x10^6/uL (3.50-5.40) Mean Corpuscular Volume 89 fL (79-100) Mean Corpuscular Hemoglobin 31 pg (25-35) Mean Corpuscular Hemoglobin Concent 35 g/dL (31-37) Red Cell Distribution Width 16.4 % (11.5-14.5) Platelet Count 154 x10^3/uL (140-400) Neutrophils (%) (Auto) 77 % (31-73) Lymphocytes (%) (Auto) 11 % (24-48) Monocytes (%) (Auto) 12 % (0-9) Eosinophils (%) (Auto) 0 % (0-3) Basophils (%) (Auto) 0 % (0-3) Neutrophils # (Auto) 9.0 x10^3/uL (1.8-7.7) Lymphocytes # (Auto) 1.3 x10^3/uL (1.0-4.8) Monocytes # (Auto) 1.4 x10^3/uL (0.0-1.1) Eosinophils # (Auto) 0.0 x10^3/uL (0.0-0.7) Basophils # (Auto) 0.0 x10^3/uL (0.0-0.2) Sodium Level 137 mmol/L (136-145) Potassium Level 5.5 mmol/L (3.5-5.1) Chloride Level 98 mmol/L (98-107) Carbon Dioxide Level 28 mmol/L (21-32) Anion Gap 11 (6-14) Blood Urea Nitrogen 115 mg/dL (7-20) Creatinine 8.9 mg/dL (0.6-1.0) Estimated GFR (Cockcroft-Gault) 5.4 Glucose Level 141 mg/dL (70-99) Calcium Level 7.5 mg/dL (8.5-10.1) Phosphorus Level 5.7 mg/dL (2.6-4.7) Albumin 2.0 g/dL (3.4-5.0) Laboratory Tests Test 07/01/19 09:00 07/01/19 12:38 07/01/19 16:30 07/01/19 17:50 Hemoglobin 6.9 g/dL (12.0-15.5) 7.8 g/dL (12.0-15.5) 7.8 g/dL (12.0-15.5) 7.2 g/dL (12.0-15.5) Hematocrit 19.7 % (36.0-47.0) 21.8 % (36.0-47.0) 22.6 % (36.0-47.0) 20.4 % (36.0-47.0) White Blood Count 6.7 x10^3/uL (4.0-11.0) 8.5 x10^3/uL (4.0-11.0) Red Blood Count 2.48 x10^6/uL (3.50-5.40) 2.32 x10^6/uL (3.50-5.40) Mean Corpuscular Volume 88 fL (79-100) 88 fL (79-100) Mean Corpuscular Hemoglobin 31 pg (25-35) 31 pg (25-35) Mean Corpuscular Hemoglobin Concent 36 g/dL (31-37) 35 g/dL (31-37) Red Cell Distribution Width 16.5 % (11.5-14.5) 17.1 % (11.5-14.5) Platelet Count 166 x10^3/uL (140-400) 175 x10^3/uL (140-400) Neutrophils (%) (Auto) 76 % (31-73) Lymphocytes (%) (Auto) 10 % (24-48) Monocytes (%) (Auto) 14 % (0-9) Eosinophils (%) (Auto) 0 % (0-3) Basophils (%) (Auto) 1 % (0-3) Neutrophils # (Auto) 6.4 x10^3/uL (1.8-7.7) Lymphocytes # (Auto) 0.8 x10^3/uL (1.0-4.8) Monocytes # (Auto) 1.1 x10^3/uL (0.0-1.1) Eosinophils # (Auto) 0.0 x10^3/uL (0.0-0.7) Basophils # (Auto) 0.0 x10^3/uL (0.0-0.2) Test 07/01/19 20:50 07/02/19 04:30 Hemoglobin 6.7 g/dL (12.0-15.5) 7.6 g/dL (12.0-15.5) Hematocrit 19.2 % (36.0-47.0) 21.8 % (36.0-47.0) White Blood Count 11.8 x10^3/uL (4.0-11.0) Red Blood Count 2.44 x10^6/uL (3.50-5.40) Mean Corpuscular Volume 89 fL (79-100) Mean Corpuscular Hemoglobin 31 pg (25-35) Mean Corpuscular Hemoglobin Concent 35 g/dL (31-37) Red Cell Distribution Width 16.4 % (11.5-14.5) Platelet Count 154 x10^3/uL (140-400) Neutrophils (%) (Auto) 77 % (31-73) Lymphocytes (%) (Auto) 11 % (24-48) Monocytes (%) (Auto) 12 % (0-9) Eosinophils (%) (Auto) 0 % (0-3) Basophils (%) (Auto) 0 % (0-3) Neutrophils # (Auto) 9.0 x10^3/uL (1.8-7.7) Lymphocytes # (Auto) 1.3 x10^3/uL (1.0-4.8) Monocytes # (Auto) 1.4 x10^3/uL (0.0-1.1) Eosinophils # (Auto) 0.0 x10^3/uL (0.0-0.7) Basophils # (Auto) 0.0 x10^3/uL (0.0-0.2) Sodium Level 137 mmol/L (136-145) Potassium Level 5.5 mmol/L (3.5-5.1) Chloride Level 98 mmol/L (98-107) Carbon Dioxide Level 28 mmol/L (21-32) Anion Gap 11 (6-14) Blood Urea Nitrogen 115 mg/dL (7-20) Creatinine 8.9 mg/dL (0.6-1.0) Estimated GFR (Cockcroft-Gault) 5.4 Glucose Level 141 mg/dL (70-99) Calcium Level 7.5 mg/dL (8.5-10.1) Phosphorus Level 5.7 mg/dL (2.6-4.7) Albumin 2.0 g/dL (3.4-5.0) Images Images CAT scan was interpreted by myself. Report was reviewed. She has a right pubic rami fracture Assessment/Plan Assessment/Plan Closed right-sided pelvis fracture, pubic rami fracture. From my standpoint she can be mobilized and weightbearing as tolerated when this is appropriate. She can work with PT and OT, would anticipate using a walker, when she is able to do so from the other providers standpoints. She should follow up with me in clinic in 2 weeks. Please do not hesitate to call should you have any other questions or concerns ANIYAH MOREAU II, MD Jul 02, 2019 08:57
[2019-07-02] MEDS: MULTIVIT INFUSN,ADULT 4,VIT K 10 ML, THIAMINE INJ 100 MG, FOLIC ACID INJ 1 MG in IV NOR... IV SCH (09:03)
--- NOTE | 2019-07-02 09:53 | PDOC ---
SUBJECTIVE ROS Seen on HD, tolerating well IR consulted to attempt embolization GD artery. OBJECTIVE Vital Signs Vital Signs Date Time Temp Pulse Resp B/P (MAP) Pulse Ox O2 Delivery O2 Flow Rate FiO2 07/02/19 09:00 96 16 118/52 (74) 100 Nasal Cannula 2.0 07/02/19 07:00 98.7 98.7 I & 0 Intake and Output 07/02/19 07:00 Intake Total 1513 ml Output Total 655 ml Balance 858 ml Intake Oral 0 ml IV Total 233 ml Blood Product 1025 ml Blood Product IV Normal Saline Flush 255 ml Output Urine Total 1 ml Stool Total 4 ml Emesis 150 ml Estimated Blood Loss 500 ml # Voids 1 # Bowel Movements 2 PHYSICAL EXAM Physical Exam GEN: NAD HEEN: OM moist, On RA NECK: Supple, CVS: S1S2, RRR RESP: No Rales, No Rhonchi,No Acc. 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 IR consulted to attempt embolization GD artery. Closed right-sided pelvis fracture, pubic rami fracture. HTN -On antihypertensives at Home GERD - non-compliant w/ PPI, /On Naproxen per home med list Cirrhosis - ETOH , Hep C COMMENT/RELEVANT DATA Meds Current Medications Medications (Trade) Dose Ordered Sig/Kimberly Start Time Stop Time Status Last Admin Dose Admin Acetaminophen (Tylenol) 650 mg PRN Q6HRS PRN 07/01/19 13:15 Calcium Acetate (Phoslo) 667 mg TIDWMEALS 07/01/19 17:00 Carvedilol (Coreg) 25 mg BIDWMEALS 07/01/19 17:00 Clonidine HCl (Catapres) 0.1 mg PRN Q1HR PRN 07/01/19 13:15 Diphenhydramine HCl (Benadryl) 25 mg PRN Q15MIN PRN 07/01/19 13:15 Epinephrine HCl (EPINEPHrine SYRINGE) 1 mg STK-MED ONCE 07/01/19 11:53 07/01/19 11:53 DC Fentanyl Citrate (Fentanyl 2ml Vial) 100 mcg 1X ONCE 07/01/19 14:15 07/01/19 14:18 DC Folic Acid (Folic Acid) 1 mg DAILY 07/06/19 09:00 Haloperidol Lactate (Haldol Inj) 5 mg PRN Q4HRS PRN 07/01/19 13:15 Heparin Sodium/ Sodium Chloride (HEPARIN for ARTERIAL LINE FLUSH) 1,000 unit 1X ONCE 07/01/19 13:15 07/01/19 13:17 DC 07/01/19 14:20 1,000 UNIT Info (CONTRAST GIVEN -- Rx MONITORING) 1 each PRN DAILY PRN 07/01/19 13:15 07/03/19 13:14 Info (PHARMACY MONITORING -- do not chart) 1 each PRN DAILY PRN 07/02/19 08:15 Iohexol (Omnipaque 240 Mg/ml) 100 ml 1X ONCE 07/01/19 13:15 07/01/19 13:17 DC 07/01/19 14:20 82 ML Iohexol (Omnipaque 300 Mg/ml) 100 ml STK-MED ONCE 07/01/19 13:03 07/01/19 13:03 DC Lactobacillus Rhamnosus (Culturelle) 1 cap BID 07/01/19 21:00 Lidocaine HCl 20 ml STK-MED ONCE 07/01/19 01:27 07/01/19 01:27 DC Lidocaine/Sodium Bicarbonate (Buffered Lidocaine 1%) 3 ml 1X ONCE 07/01/19 13:15 07/01/19 13:17 DC 07/01/19 14:20 8 ML Lorazepam (Ativan Inj) 0.5 mg PRN Q6HRS PRN 07/01/19 13:15 Lorazepam (Ativan) 8 mg PRN Q1HR PRN 07/01/19 13:15 Multivitamins (Thera M Plus) 1 tab DAILY 07/06/19 09:00 Multivitamins 10 ml/Thiamine HCl 100 mg/Folic Acid 1 mg/Sodium Chloride 1,011.2 ml @ 100 mls/ hr DAILY 07/01/19 14:00 07/05/19 19:07 07/02/19 09:03 100 MLS/HR Ondansetron HCl (Zofran) 4 mg PRN Q6HRS PRN 07/01/19 13:15 07/01/19 15:32 4 MG Pantoprazole Sodium (PROTONIX VIAL for IV PUSH) 40 mg STK-MED ONCE 07/01/19 05:19 07/01/19 05:20 DC Pantoprazole Sodium 80 mg/ Sodium Chloride 100 ml @ 10 mls/hr Q10H 07/02/19 02:00 07/02/19 03:43 10 MLS/HR Polyethylene Glycol (miraLAX PACKET) 17 gm PRN DAILY PRN 07/01/19 13:30 Ringer's Solution 1,000 ml @ 75 mls/hr 1X ONCE 07/01/19 10:45 07/02/19 00:04 DC Sodium Chloride 1,000 ml @ 400 mls/hr Q2H30M PRN 07/02/19 07:00 07/02/19 18:59 Sodium Chloride (NORMAL SALINE FLUSH for STERILE FIELD) 10 ml STK-MED ONCE 07/01/19 03:34 07/01/19 03:36 DC Sodium Chloride (Normal Saline Flush) 3 ml QSHIFT PRN 07/01/19 13:15 Thiamine HCl 100 mg/Dextrose 51 ml @ 100 mls/hr DAILY 07/06/19 09:00 07/10/19 09:31 Lab Laboratory Tests Test 07/01/19 12:38 07/01/19 16:30 07/01/19 17:50 07/01/19 20:50 White Blood Count 6.7 x10^3/uL (4.0-11.0) 8.5 x10^3/uL (4.0-11.0) Red Blood Count 2.48 x10^6/uL (3.50-5.40) 2.32 x10^6/uL (3.50-5.40) Hemoglobin 7.8 g/dL (12.0-15.5) 7.8 g/dL (12.0-15.5) 7.2 g/dL (12.0-15.5) 6.7 g/dL (12.0-15.5) Hematocrit 21.8 % (36.0-47.0) 22.6 % (36.0-47.0) 20.4 % (36.0-47.0) 19.2 % (36.0-47.0) Mean Corpuscular Volume 88 fL (79-100) 88 fL (79-100) Mean Corpuscular Hemoglobin 31 pg (25-35) 31 pg (25-35) Mean Corpuscular Hemoglobin Concent 36 g/dL (31-37) 35 g/dL (31-37) Red Cell Distribution Width 16.5 % (11.5-14.5) 17.1 % (11.5-14.5) Platelet Count 166 x10^3/uL (140-400) 175 x10^3/uL (140-400) Neutrophils (%) (Auto) 76 % (31-73) Lymphocytes (%) (Auto) 10 % (24-48) Monocytes (%) (Auto) 14 % (0-9) Eosinophils (%) (Auto) 0 % (0-3) Basophils (%) (Auto) 1 % (0-3) Neutrophils # (Auto) 6.4 x10^3/uL (1.8-7.7) Lymphocytes # (Auto) 0.8 x10^3/uL (1.0-4.8) Monocytes # (Auto) 1.1 x10^3/uL (0.0-1.1) Eosinophils # (Auto) 0.0 x10^3/uL (0.0-0.7) Basophils # (Auto) 0.0 x10^3/uL (0.0-0.2) Test 07/02/19 04:30 White Blood Count 11.8 x10^3/uL (4.0-11.0) Red Blood Count 2.44 x10^6/uL (3.50-5.40) Hemoglobin 7.6 g/dL (12.0-15.5) Hematocrit 21.8 % (36.0-47.0) Mean Corpuscular Volume 89 fL (79-100) Mean Corpuscular Hemoglobin 31 pg (25-35) Mean Corpuscular Hemoglobin Concent 35 g/dL (31-37) Red Cell Distribution Width 16.4 % (11.5-14.5) Platelet Count 154 x10^3/uL (140-400) Neutrophils (%) (Auto) 77 % (31-73) Lymphocytes (%) (Auto) 11 % (24-48) Monocytes (%) (Auto) 12 % (0-9) Eosinophils (%) (Auto) 0 % (0-3) Basophils (%) (Auto) 0 % (0-3) Neutrophils # (Auto) 9.0 x10^3/uL (1.8-7.7) Lymphocytes # (Auto) 1.3 x10^3/uL (1.0-4.8) Monocytes # (Auto) 1.4 x10^3/uL (0.0-1.1) Eosinophils # (Auto) 0.0 x10^3/uL (0.0-0.7) Basophils # (Auto) 0.0 x10^3/uL (0.0-0.2) Sodium Level 137 mmol/L (136-145) Potassium Level 5.5 mmol/L (3.5-5.1) Chloride Level 98 mmol/L (98-107) Carbon Dioxide Level 28 mmol/L (21-32) Anion Gap 11 (6-14) Blood Urea Nitrogen 115 mg/dL (7-20) Creatinine 8.9 mg/dL (0.6-1.0) Estimated GFR (Cockcroft-Gault) 5.4 Glucose Level 141 mg/dL (70-99) Calcium Level 7.5 mg/dL (8.5-10.1) Phosphorus Level 5.7 mg/dL (2.6-4.7) Albumin 2.0 g/dL (3.4-5.0) Results All relevant outside records, renal labs, imaging studies, telemetry/EKG's were reviewed. GINO TAN MD Jul 02, 2019 09:53
--- NOTE | 2019-07-02 10:13 | PDOC ---
Subjective: Subjective: Feels okay. Objective: Objective: Nurse reports coiling w/ IR yesterday. No bleeding. Vital Signs: Vital Signs Date Time Temp Pulse Resp B/P (MAP) Pulse Ox O2 Delivery O2 Flow Rate FiO2 07/02/19 09:00 96 16 118/52 (74) 100 Nasal Cannula 2.0 07/02/19 07:00 98.7 98.7 Labs: Laboratory Tests Test 07/01/19 12:38 07/01/19 16:30 07/01/19 17:50 07/01/19 20:50 White Blood Count 6.7 x10^3/uL 8.5 x10^3/uL Red Blood Count 2.48 x10^6/uL 2.32 x10^6/uL Hemoglobin 7.8 g/dL 7.8 g/dL 7.2 g/dL 6.7 g/dL Hematocrit 21.8 % 22.6 % 20.4 % 19.2 % Mean Corpuscular Volume 88 fL 88 fL Mean Corpuscular Hemoglobin 31 pg 31 pg Mean Corpuscular Hemoglobin Concent 36 g/dL 35 g/dL Red Cell Distribution Width 16.5 % 17.1 % Platelet Count 166 x10^3/uL 175 x10^3/uL Neutrophils (%) (Auto) 76 % Lymphocytes (%) (Auto) 10 % Monocytes (%) (Auto) 14 % Eosinophils (%) (Auto) 0 % Basophils (%) (Auto) 1 % Neutrophils # (Auto) 6.4 x10^3/uL Lymphocytes # (Auto) 0.8 x10^3/uL Monocytes # (Auto) 1.1 x10^3/uL Eosinophils # (Auto) 0.0 x10^3/uL Basophils # (Auto) 0.0 x10^3/uL Test 07/02/19 04:30 White Blood Count 11.8 x10^3/uL Red Blood Count 2.44 x10^6/uL Hemoglobin 7.6 g/dL Hematocrit 21.8 % Mean Corpuscular Volume 89 fL Mean Corpuscular Hemoglobin 31 pg Mean Corpuscular Hemoglobin Concent 35 g/dL Red Cell Distribution Width 16.4 % Platelet Count 154 x10^3/uL Neutrophils (%) (Auto) 77 % Lymphocytes (%) (Auto) 11 % Monocytes (%) (Auto) 12 % Eosinophils (%) (Auto) 0 % Basophils (%) (Auto) 0 % Neutrophils # (Auto) 9.0 x10^3/uL Lymphocytes # (Auto) 1.3 x10^3/uL Monocytes # (Auto) 1.4 x10^3/uL Eosinophils # (Auto) 0.0 x10^3/uL Basophils # (Auto) 0.0 x10^3/uL Sodium Level 137 mmol/L Potassium Level 5.5 mmol/L Chloride Level 98 mmol/L Carbon Dioxide Level 28 mmol/L Anion Gap 11 Blood Urea Nitrogen 115 mg/dL Creatinine 8.9 mg/dL Estimated GFR (Cockcroft-Gault) 5.4 Glucose Level 141 mg/dL Calcium Level 7.5 mg/dL Phosphorus Level 5.7 mg/dL Albumin 2.0 g/dL Imaging: EGD 07/01 E--Grade A reflux/no varices or M-W. G--Blood upper body/part of fundus. No varices seen. Prepyloric ulcer , posterior wall with clot/ooze from beneath. D--Blood in lumen, otherwise OK to second portion. --Placed clip near ulcer to tamika for IR. Epi injected around and into ulcer, maybe slowed some. Attempted BICAP, but only tangentially. Continued ooze. Further attempts abandoned. IMP: prepyloric ulcer with active "ooze"; unable to control endoscopically. Reflux Visceral Angio 07/01 pending PE: GEN: dialyzing LUNGS: NC 2L HEART: RRR ABD: S/ND/NT NEURO/PSYCH: drowsy A/P: Hematemesis, melena - resolved Prepyloric ulcer w/ oozing s/p endotherapy, now s/p IR embolization Chronic anemia - Hgb improved w/ transfusions (4 units pRBCs so far) ESRD on HD, cirrhosis, GERD -- Reviewed w/ Dr. Kaushik rico for clears. IRIS SZYMANSKI Jul 02, 2019 10:13
[2019-07-02 11:12] LABS: BASO % 0 % (0-3); EOS % 1 % (0-3); HEMATOCRIT 21.2 % (36.0-47.0); HEMOGLOBIN 7.4 g/dL (12.0-15.5); LYMPH # 0.9 x10^3/uL (1.0-4.8); LYMPH % 9 % (24-48); MEAN CORPUSCULAR HEMOGLOBIN 31 pg (25-35); MEAN CORPUSCULAR HGB CONC 35 g/dL (31-37); MEAN CORPUSCULAR VOLUME 89 fL (79-100); MONO % 10 % (0-9); NEUT # 7.9 x10^3/uL (1.8-7.7); NEUT % 80 % (31-73); PLATELET COUNT 147 x10^3/uL (140-400); RED BLOOD COUNT 2.39 x10^6/uL (3.50-5.40); WHITE BLOOD COUNT 9.8 x10^3/uL (4.0-11.0)
[2019-07-02] MEDS: CARVEDILOL 12.5 MG TABLET. PO SCH ×2 (12:43→17:43)
[2019-07-02] MEDS: LACTOBACILLUS RHAMNOSUS GG 1 CAPSULE. PO SCH ×2 (12:43→21:00)
--- NOTE | 2019-07-02 17:00 | NUR ---
pt sitting in chair next to bed. pt has had 3 incontinent dark maroon colored stools. pt c/o being cold. pt with warm blanket on and sitting in sun shining through window.
[2019-07-03] VITALS (11 sets, daily range): BP systolic 104–135; BP diastolic 42–66
--- NOTE | 2019-07-03 00:30 | NUR ---
TRANSFER NOTE Pt arrived to room 582 via wheelchair accompanied by ICU staff. Pt transferred self to bed with no visible difficulty. Bed low, locked, call light within reach. Reviewed head to toe assessment by prior RN - agree with assessment. Pt has no complaints at this time. Will continue to monitor.
--- NOTE | 2019-07-03 04:59 | NUR ---
NURSING NOTE Pt complaining of pain. Offered ordered Tylenol. Pt accepted despite documented adverse reaction history. Continuing to monitor.
[2019-07-03] MEDS: fentaNYL PF VIAL 100 MCG/2 ML VIAL IV PRN ×2 (05:19→18:11)
[2019-07-03] MEDS: ONDANSETRON PF 4 MG/2 ML VIAL. IV PRN (05:19)
[2019-07-03 05:37] LABS: BASO % 1 % (0-3); EOS % 1 % (0-3); LYMPH # 0.8 x10^3/uL (1.0-4.8); LYMPH % 17 % (24-48); MEAN CORPUSCULAR HEMOGLOBIN 32 pg (25-35); MEAN CORPUSCULAR HGB CONC 35 g/dL (31-37); MEAN CORPUSCULAR VOLUME 91 fL (79-100); MONO # 0.6 x10^3/uL (0.0-1.1); MONO % 13 % (0-9); NEUT # 3.3 x10^3/uL (1.8-7.7); NEUT % 69 % (31-73); PLATELET COUNT 131 x10^3/uL (140-400); RED BLOOD COUNT 2.04 x10^6/uL (3.50-5.40); RED CELL DISTRIBUTION WIDTH 17.3 % (11.5-14.5); WHITE BLOOD COUNT 4.8 x10^3/uL (4.0-11.0)
[2019-07-03 05:42] LABS: HEMATOCRIT 18.6 % (36.0-47.0); HEMOGLOBIN 6.5 g/dL (12.0-15.5)
[2019-07-03 05:56] LABS: ALBUMIN/GLOBULIN RATIO 0.6 (1.0-1.7); CREATININE 4.8 mg/dL (0.6-1.0); POTASSIUM 3.9 mmol/L (3.5-5.1); TOTAL BILIRUBIN 0.5 mg/dL (0.2-1.0); TOTAL PROTEIN 5.3 g/dL (6.4-8.2)
[2019-07-03] MEDS: PANTOPRAZOLE 40 MG TABLET.DR. PO SCH (07:48)
[2019-07-03] MEDS: CALCIUM ACETATE 667 MG CAPSULE PO SCH ×3 (08:15→17:18)
[2019-07-03] MEDS: CARVEDILOL 12.5 MG TABLET. PO SCH ×2 (08:16→17:19)
[2019-07-03] MEDS: LACTOBACILLUS RHAMNOSUS GG 1 CAPSULE. PO SCH ×2 (08:16→21:06)
[2019-07-03] MEDS: HYDROcodone/APAP 5/325MG 1 TAB TABLET PO PRN ×2 (08:17→17:19)
[2019-07-03] MEDS: MULTIVIT INFUSN,ADULT 4,VIT K 10 ML, THIAMINE INJ 100 MG, FOLIC ACID INJ 1 MG in IV NOR... IV SCH (08:18)
--- NOTE | 2019-07-03 09:58 | NUR ---
Patient verb. understanding POC transfuse one unit packed red blood cells, S&S reaction to report. See orders and transfusion record. Blood infusing right should #18 gauge IV without difficulty.
--- NOTE | 2019-07-03 12:51 | PDOC ---
SUBJECTIVE ROS Stable, transferred out of ICU OBJECTIVE Vital Signs Vital Signs Date Time Temp Pulse Resp B/P (MAP) Pulse Ox O2 Delivery O2 Flow Rate FiO2 07/03/19 12:09 97.9 72 18 113/52 97.9 07/03/19 11:00 99 Room Air 07/03/19 03:00 2.0 I & 0 Intake and Output 07/03/19 06:59 Intake Total 1683 ml Output Total 0 ml Balance 1683 ml Intake Oral 360 ml IV Total 1323 ml Output Urine Total 0 ml # Bowel Movements 4 PHYSICAL EXAM Physical Exam GEN: NAD HEEN: OM moist, On RA NECK: Supple, CVS: S1S2, RRR RESP: No Rales, No Rhonchi,No Acc. Muscle Use GI: BS + ve, NO Bruit, Non Tender, : No CVA tenderness, No Suprapubic Tenderness, No shaw NEURO- Grossly normal SKIN- No rash EXT- No edema DIAGNOSIS/ASSESSMENT Assessment & Plan ESRD- On HD TTS No indication for HD today Severe Anemia - Hgb 4.5 at presentation ,post PRBC (x4) Hgb < 7 this am, PRBC today as well per primary UGI bleed - s/p EGD 07/01 Per GI- prepyloric ulcer with oozing s/p IR embolization Closed right-sided pelvis fracture, pubic rami fracture. HTN -On antihypertensives at Home GERD - non-compliant w/ PPI, /On Naproxen per home med list Cirrhosis - ETOH , Hep C COMMENT/RELEVANT DATA Meds Current Medications Medications (Trade) Dose Ordered Sig/Kimberly Start Time Stop Time Status Last Admin Dose Admin Acetaminophen (Tylenol) 650 mg PRN Q6HRS PRN 07/01/19 13:15 07/03/19 01:11 650 MG Acetaminophen/ Hydrocodone Bitart (Lortab 5/325) 1 tab PRN Q6HRS PRN 07/03/19 05:15 07/03/19 08:22 1 TAB Calcium Acetate (Phoslo) 667 mg TIDWMEALS 07/01/19 17:00 07/03/19 12:19 667 MG Carvedilol (Coreg) 25 mg BIDWMEALS 07/01/19 17:00 07/03/19 08:22 25 MG Clonidine HCl (Catapres) 0.1 mg PRN Q1HR PRN 07/01/19 13:15 Diphenhydramine HCl (Benadryl) 25 mg PRN Q15MIN PRN 07/01/19 13:15 Epinephrine HCl (EPINEPHrine SYRINGE) 1 mg STK-MED ONCE 07/01/19 11:53 07/01/19 11:53 DC Fentanyl Citrate (Fentanyl 2ml Vial) 25 mcg PRN Q4HRS PRN 07/03/19 05:15 07/03/19 05:19 25 MCG Folic Acid (Folic Acid) 1 mg DAILY 07/06/19 09:00 Haloperidol Lactate (Haldol Inj) 5 mg PRN Q4HRS PRN 07/01/19 13:15 Heparin Sodium/ Sodium Chloride (HEPARIN for ARTERIAL LINE FLUSH) 1,000 unit 1X ONCE 07/01/19 13:15 07/01/19 13:17 DC 07/01/19 14:20 1,000 UNIT Info (CONTRAST GIVEN -- Rx MONITORING) 1 each PRN DAILY PRN 07/01/19 13:15 07/03/19 13:14 Info (PHARMACY MONITORING -- do not chart) 1 each PRN DAILY PRN 07/02/19 08:15 Iohexol (Omnipaque 240 Mg/ml) 100 ml 1X ONCE 07/01/19 13:15 07/01/19 13:17 DC 07/01/19 14:20 82 ML Iohexol (Omnipaque 300 Mg/ml) 100 ml STK-MED ONCE 07/01/19 13:03 07/01/19 13:03 DC Lactobacillus Rhamnosus (Culturelle) 1 cap BID 07/01/19 21:00 07/03/19 08:22 1 CAP Lidocaine HCl 20 ml STK-MED ONCE 07/01/19 01:27 07/01/19 01:27 DC Lidocaine/Sodium Bicarbonate (Buffered Lidocaine 1%) 3 ml 1X ONCE 07/01/19 13:15 07/01/19 13:17 DC 07/01/19 14:20 8 ML Lorazepam (Ativan Inj) 0.5 mg PRN Q6HRS PRN 07/01/19 13:15 Lorazepam (Ativan) 8 mg PRN Q1HR PRN 07/01/19 13:15 Multivitamins (Thera M Plus) 1 tab DAILY 07/06/19 09:00 Multivitamins 10 ml/Thiamine HCl 100 mg/Folic Acid 1 mg/Sodium Chloride 1,011.2 ml @ 100 mls/ hr DAILY 07/01/19 14:00 07/05/19 19:07 07/03/19 08:22 100 MLS/HR Ondansetron HCl (Zofran) 4 mg PRN Q6HRS PRN 07/01/19 13:15 07/03/19 05:19 4 MG Pantoprazole Sodium (PROTONIX VIAL for IV PUSH) 40 mg STK-MED ONCE 07/01/19 05:19 07/01/19 05:20 DC Pantoprazole Sodium (Protonix) 40 mg DAILYAC 07/03/19 07:30 07/03/19 07:50 40 MG Pantoprazole Sodium 80 mg/ Sodium Chloride 100 ml @ 10 mls/hr Q10H 07/02/19 02:00 07/02/19 10:16 DC 07/02/19 03:43 10 MLS/HR Polyethylene Glycol (miraLAX PACKET) 17 gm PRN DAILY PRN 07/01/19 13:30 Ringer's Solution 1,000 ml @ 75 mls/hr 1X ONCE 07/01/19 10:45 07/02/19 00:04 DC Sodium Chloride 1,000 ml @ 400 mls/hr Q2H30M PRN 07/02/19 07:00 07/02/19 18:59 DC Sodium Chloride (NORMAL SALINE FLUSH for STERILE FIELD) 10 ml STK-MED ONCE 07/01/19 03:34 07/01/19 03:36 DC Sodium Chloride (Normal Saline Flush) 3 ml QSHIFT PRN 07/01/19 13:15 Thiamine HCl 100 mg/Dextrose 51 ml @ 100 mls/hr DAILY 07/06/19 09:00 07/10/19 09:31 Lab Laboratory Tests Test 07/02/19 17:08 07/03/19 05:05 07/03/19 08:19 07/03/19 11:20 Glucose (Fingerstick) 109 mg/dL (70-99) 121 mg/dL (70-99) 154 mg/dL (70-99) White Blood Count 4.8 x10^3/uL (4.0-11.0) Red Blood Count 2.04 x10^6/uL (3.50-5.40) Hemoglobin 6.5 g/dL (12.0-15.5) Hematocrit 18.6 % (36.0-47.0) Mean Corpuscular Volume 91 fL (79-100) Mean Corpuscular Hemoglobin 32 pg (25-35) Mean Corpuscular Hemoglobin Concent 35 g/dL (31-37) Red Cell Distribution Width 17.3 % (11.5-14.5) Platelet Count 131 x10^3/uL (140-400) Neutrophils (%) (Auto) 69 % (31-73) Lymphocytes (%) (Auto) 17 % (24-48) Monocytes (%) (Auto) 13 % (0-9) Eosinophils (%) (Auto) 1 % (0-3) Basophils (%) (Auto) 1 % (0-3) Neutrophils # (Auto) 3.3 x10^3/uL (1.8-7.7) Lymphocytes # (Auto) 0.8 x10^3/uL (1.0-4.8) Monocytes # (Auto) 0.6 x10^3/uL (0.0-1.1) Eosinophils # (Auto) 0.0 x10^3/uL (0.0-0.7) Basophils # (Auto) 0.0 x10^3/uL (0.0-0.2) Sodium Level 140 mmol/L (136-145) Potassium Level 3.9 mmol/L (3.5-5.1) Chloride Level 102 mmol/L (98-107) Carbon Dioxide Level 29 mmol/L (21-32) Anion Gap 9 (6-14) Blood Urea Nitrogen 44 mg/dL (7-20) Creatinine 4.8 mg/dL (0.6-1.0) Estimated GFR (Cockcroft-Gault) 11.0 BUN/Creatinine Ratio 9 (6-20) Glucose Level 124 mg/dL (70-99) Calcium Level 8.0 mg/dL (8.5-10.1) Phosphorus Level 4.7 mg/dL (2.6-4.7) Total Bilirubin 0.5 mg/dL (0.2-1.0) Aspartate Amino Transf (AST/SGOT) 41 U/L (15-37) Alanine Aminotransferase (ALT/SGPT) 11 U/L (14-59) Alkaline Phosphatase 129 U/L (46-116) Total Protein 5.3 g/dL (6.4-8.2) Albumin 2.0 g/dL (3.4-5.0) Albumin/Globulin Ratio 0.6 (1.0-1.7) Results All relevant outside records, renal labs, imaging studies, telemetry/EKG's were reviewed. GINO TAN MD Jul 03, 2019 12:51
--- NOTE | 2019-07-03 13:36 | NUR ---
See transfusion record, no reaction with transfusion one unit packed red blood cells.
--- NOTE | 2019-07-03 14:06 | PDOC ---
Subjective: Subjective: Feeling better. Thinks stooled after breakfast but was told was without blood. Objective: Objective: D/w nurse - transfused 1 unit, no bleeding, not having diarrhea but in C Diff precautions. CBC to rechecked later. Vital Signs: Vital Signs Date Time Temp Pulse Resp B/P (MAP) Pulse Ox O2 Delivery O2 Flow Rate FiO2 07/03/19 13:10 97.5 73 18 131/56 97.5 07/03/19 11:00 99 Room Air 07/03/19 03:00 2.0 Labs: Laboratory Tests Test 07/02/19 17:08 07/03/19 05:05 07/03/19 08:19 07/03/19 11:20 Glucose (Fingerstick) 109 mg/dL 121 mg/dL 154 mg/dL White Blood Count 4.8 x10^3/uL Red Blood Count 2.04 x10^6/uL Hemoglobin 6.5 g/dL Hematocrit 18.6 % Mean Corpuscular Volume 91 fL Mean Corpuscular Hemoglobin 32 pg Mean Corpuscular Hemoglobin Concent 35 g/dL Red Cell Distribution Width 17.3 % Platelet Count 131 x10^3/uL Neutrophils (%) (Auto) 69 % Lymphocytes (%) (Auto) 17 % Monocytes (%) (Auto) 13 % Eosinophils (%) (Auto) 1 % Basophils (%) (Auto) 1 % Neutrophils # (Auto) 3.3 x10^3/uL Lymphocytes # (Auto) 0.8 x10^3/uL Monocytes # (Auto) 0.6 x10^3/uL Eosinophils # (Auto) 0.0 x10^3/uL Basophils # (Auto) 0.0 x10^3/uL Sodium Level 140 mmol/L Potassium Level 3.9 mmol/L Chloride Level 102 mmol/L Carbon Dioxide Level 29 mmol/L Anion Gap 9 Blood Urea Nitrogen 44 mg/dL Creatinine 4.8 mg/dL Estimated GFR (Cockcroft-Gault) 11.0 BUN/Creatinine Ratio 9 Glucose Level 124 mg/dL Calcium Level 8.0 mg/dL Phosphorus Level 4.7 mg/dL Total Bilirubin 0.5 mg/dL Aspartate Amino Transf (AST/SGOT) 41 U/L Alanine Aminotransferase (ALT/SGPT) 11 U/L Alkaline Phosphatase 129 U/L Total Protein 5.3 g/dL Albumin 2.0 g/dL Albumin/Globulin Ratio 0.6 PE: GEN: NAD LUNGS: CTAB HEART: RRR ABD: soft, non-tender NEURO/PSYCH: A & O �3 - more awake today A/P: Hematemesis, melena - resolved Prepyloric ulcer w/ oozing s/p endotherapy and IR embolization Chronic anemia - transfused 5th unit this morning ESRD on HD, cirrhosis, GERD, h/o C Diff -- ?advance diet Is on PO PPI. IRIS SZYMANSKI Jul 03, 2019 14:06
--- NOTE | 2019-07-03 16:15 | PDOC ---
PROGRESS NOTES Chief Complaint Chief Complaint Assessment/Plan Pubic rami fracture - seen by ortho. this is not operative. Pain control ACUTE ugi bleeding, pre-pyloric ulcer Internal fixation of healed right distal femoral and proximal tibial fractures. Mild bilateral knee osteoarthritis with suspected trace right knee effusion. HX alcohol abuse (was drinking gin), Chronic back pain, Previous gastrointestinal bleed, End-stage renal disease on dialysis, She missed HD Saturday, last HD was on Saturday . HX Clostridium difficile, Cholelithiasis, Obesity, Trace tricuspid regurgitation with an estimated PAP of 52 mmHg. Arteriovenous shunt. PLAN : IR consulted to attempt embolization GD artery. Continue PPI NPO. ORTHO CONSULT pending alcohol withdrawal precautions protonix drip abdominal sono History of Present Illness History of Present Illness Ms Fernandez is a 64 year old female with history of end stage renal disease on hemodialysis previous GI bleeding who presents with complaining of vomiting blood. Patient states she had 2 episodes of vomiting blood prior to arrival to ER as a dark colored blood about half cup of blood during episodes of vomiting. Patient states she has had episodes of black stool for the last 5 days prior to admit that usually happen once or twice a day without vomiting. Hgb 4.5 in ED received PRBC and dialysis on 07/01. EGD found pre-pyloric ulcer oozing on 07/02/19. Hb below 7 this morning. Ordered 1u PRBC for dialysis. She is eating a bit of ice cream. Feels somewhat improved. No CP or SOB Vitals Vitals Vital Signs Date Time Temp Pulse Resp B/P (MAP) Pulse Ox O2 Delivery O2 Flow Rate FiO2 07/03/19 15:00 97.9 76 18 135/49 (77) 98 Room Air 97.9 07/03/19 03:00 2.0 Physical Exam General: Alert, Cooperative, No acute distress, Other (she responds minimally to yes and no questions) Heart: Regular rate Lungs: Clear Abdomen: Normal bowel sounds, Soft Extremities: No cyanosis Labs LABS Laboratory Tests Test 07/02/19 17:08 07/03/19 05:05 07/03/19 08:19 07/03/19 11:20 Glucose (Fingerstick) 109 mg/dL (70-99) 121 mg/dL (70-99) 154 mg/dL (70-99) White Blood Count 4.8 x10^3/uL (4.0-11.0) Red Blood Count 2.04 x10^6/uL (3.50-5.40) Hemoglobin 6.5 g/dL (12.0-15.5) Hematocrit 18.6 % (36.0-47.0) Mean Corpuscular Volume 91 fL (79-100) Mean Corpuscular Hemoglobin 32 pg (25-35) Mean Corpuscular Hemoglobin Concent 35 g/dL (31-37) Red Cell Distribution Width 17.3 % (11.5-14.5) Platelet Count 131 x10^3/uL (140-400) Neutrophils (%) (Auto) 69 % (31-73) Lymphocytes (%) (Auto) 17 % (24-48) Monocytes (%) (Auto) 13 % (0-9) Eosinophils (%) (Auto) 1 % (0-3) Basophils (%) (Auto) 1 % (0-3) Neutrophils # (Auto) 3.3 x10^3/uL (1.8-7.7) Lymphocytes # (Auto) 0.8 x10^3/uL (1.0-4.8) Monocytes # (Auto) 0.6 x10^3/uL (0.0-1.1) Eosinophils # (Auto) 0.0 x10^3/uL (0.0-0.7) Basophils # (Auto) 0.0 x10^3/uL (0.0-0.2) Sodium Level 140 mmol/L (136-145) Potassium Level 3.9 mmol/L (3.5-5.1) Chloride Level 102 mmol/L (98-107) Carbon Dioxide Level 29 mmol/L (21-32) Anion Gap 9 (6-14) Blood Urea Nitrogen 44 mg/dL (7-20) Creatinine 4.8 mg/dL (0.6-1.0) Estimated GFR (Cockcroft-Gault) 11.0 BUN/Creatinine Ratio 9 (6-20) Glucose Level 124 mg/dL (70-99) Calcium Level 8.0 mg/dL (8.5-10.1) Phosphorus Level 4.7 mg/dL (2.6-4.7) Total Bilirubin 0.5 mg/dL (0.2-1.0) Aspartate Amino Transf (AST/SGOT) 41 U/L (15-37) Alanine Aminotransferase (ALT/SGPT) 11 U/L (14-59) Alkaline Phosphatase 129 U/L (46-116) Total Protein 5.3 g/dL (6.4-8.2) Albumin 2.0 g/dL (3.4-5.0) Albumin/Globulin Ratio 0.6 (1.0-1.7) Assessment and Plan Assessmemt and Plan Problems Medical Problems: (1) Anemia Status: Chronic (2) Cirrhosis Status: Chronic (3) Hyperglycemia Status: Acute (4) Hypoalbuminemia Status: Acute (5) Hyponatremia Status: Acute Comment Review of Relevant I have reviewed the following items tamika (where applicable) has been applied. Labs Laboratory Tests Test 07/01/19 16:30 07/01/19 17:50 07/01/19 20:50 07/02/19 04:30 Hemoglobin 7.8 g/dL (12.0-15.5) 7.2 g/dL (12.0-15.5) 6.7 g/dL (12.0-15.5) 7.6 g/dL (12.0-15.5) Hematocrit 22.6 % (36.0-47.0) 20.4 % (36.0-47.0) 19.2 % (36.0-47.0) 21.8 % (36.0-47.0) White Blood Count 8.5 x10^3/uL (4.0-11.0) 11.8 x10^3/uL (4.0-11.0) Red Blood Count 2.32 x10^6/uL (3.50-5.40) 2.44 x10^6/uL (3.50-5.40) Mean Corpuscular Volume 88 fL (79-100) 89 fL (79-100) Mean Corpuscular Hemoglobin 31 pg (25-35) 31 pg (25-35) Mean Corpuscular Hemoglobin Concent 35 g/dL (31-37) 35 g/dL (31-37) Red Cell Distribution Width 17.1 % (11.5-14.5) 16.4 % (11.5-14.5) Platelet Count 175 x10^3/uL (140-400) 154 x10^3/uL (140-400) Neutrophils (%) (Auto) 76 % (31-73) 77 % (31-73) Lymphocytes (%) (Auto) 10 % (24-48) 11 % (24-48) Monocytes (%) (Auto) 14 % (0-9) 12 % (0-9) Eosinophils (%) (Auto) 0 % (0-3) 0 % (0-3) Basophils (%) (Auto) 1 % (0-3) 0 % (0-3) Neutrophils # (Auto) 6.4 x10^3/uL (1.8-7.7) 9.0 x10^3/uL (1.8-7.7) Lymphocytes # (Auto) 0.8 x10^3/uL (1.0-4.8) 1.3 x10^3/uL (1.0-4.8) Monocytes # (Auto) 1.1 x10^3/uL (0.0-1.1) 1.4 x10^3/uL (0.0-1.1) Eosinophils # (Auto) 0.0 x10^3/uL (0.0-0.7) 0.0 x10^3/uL (0.0-0.7) Basophils # (Auto) 0.0 x10^3/uL (0.0-0.2) 0.0 x10^3/uL (0.0-0.2) Sodium Level 137 mmol/L (136-145) Potassium Level 5.5 mmol/L (3.5-5.1) Chloride Level 98 mmol/L (98-107) Carbon Dioxide Level 28 mmol/L (21-32) Anion Gap 11 (6-14) Blood Urea Nitrogen 115 mg/dL (7-20) Creatinine 8.9 mg/dL (0.6-1.0) Estimated GFR (Cockcroft-Gault) 5.4 Glucose Level 141 mg/dL (70-99) Calcium Level 7.5 mg/dL (8.5-10.1) Phosphorus Level 5.7 mg/dL (2.6-4.7) Albumin 2.0 g/dL (3.4-5.0) Test 07/02/19 10:58 07/02/19 12:38 07/02/19 17:08 07/03/19 05:05 White Blood Count 9.8 x10^3/uL (4.0-11.0) 4.8 x10^3/uL (4.0-11.0) Red Blood Count 2.39 x10^6/uL (3.50-5.40) 2.04 x10^6/uL (3.50-5.40) Hemoglobin 7.4 g/dL (12.0-15.5) 6.5 g/dL (12.0-15.5) Hematocrit 21.2 % (36.0-47.0) 18.6 % (36.0-47.0) Mean Corpuscular Volume 89 fL (79-100) 91 fL (79-100) Mean Corpuscular Hemoglobin 31 pg (25-35) 32 pg (25-35) Mean Corpuscular Hemoglobin Concent 35 g/dL (31-37) 35 g/dL (31-37) Red Cell Distribution Width 17.0 % (11.5-14.5) 17.3 % (11.5-14.5) Platelet Count 147 x10^3/uL (140-400) 131 x10^3/uL (140-400) Neutrophils (%) (Auto) 80 % (31-73) 69 % (31-73) Lymphocytes (%) (Auto) 9 % (24-48) 17 % (24-48) Monocytes (%) (Auto) 10 % (0-9) 13 % (0-9) Eosinophils (%) (Auto) 1 % (0-3) 1 % (0-3) Basophils (%) (Auto) 0 % (0-3) 1 % (0-3) Neutrophils # (Auto) 7.9 x10^3/uL (1.8-7.7) 3.3 x10^3/uL (1.8-7.7) Lymphocytes # (Auto) 0.9 x10^3/uL (1.0-4.8) 0.8 x10^3/uL (1.0-4.8) Monocytes # (Auto) 1.0 x10^3/uL (0.0-1.1) 0.6 x10^3/uL (0.0-1.1) Eosinophils # (Auto) 0.0 x10^3/uL (0.0-0.7) 0.0 x10^3/uL (0.0-0.7) Basophils # (Auto) 0.0 x10^3/uL (0.0-0.2) 0.0 x10^3/uL (0.0-0.2) Glucose (Fingerstick) 95 mg/dL (70-99) 109 mg/dL (70-99) Sodium Level 140 mmol/L (136-145) Potassium Level 3.9 mmol/L (3.5-5.1) Chloride Level 102 mmol/L (98-107) Carbon Dioxide Level 29 mmol/L (21-32) Anion Gap 9 (6-14) Blood Urea Nitrogen 44 mg/dL (7-20) Creatinine 4.8 mg/dL (0.6-1.0) Estimated GFR (Cockcroft-Gault) 11.0 BUN/Creatinine Ratio 9 (6-20) Glucose Level 124 mg/dL (70-99) Calcium Level 8.0 mg/dL (8.5-10.1) Phosphorus Level 4.7 mg/dL (2.6-4.7) Total Bilirubin 0.5 mg/dL (0.2-1.0) Aspartate Amino Transf (AST/SGOT) 41 U/L (15-37) Alanine Aminotransferase (ALT/SGPT) 11 U/L (14-59) Alkaline Phosphatase 129 U/L (46-116) Total Protein 5.3 g/dL (6.4-8.2) Albumin 2.0 g/dL (3.4-5.0) Albumin/Globulin Ratio 0.6 (1.0-1.7) Test 07/03/19 08:19 07/03/19 11:20 Glucose (Fingerstick) 121 mg/dL (70-99) 154 mg/dL (70-99) Laboratory Tests Test 07/02/19 17:08 07/03/19 05:05 07/03/19 08:19 07/03/19 11:20 Glucose (Fingerstick) 109 mg/dL (70-99) 121 mg/dL (70-99) 154 mg/dL (70-99) White Blood Count 4.8 x10^3/uL (4.0-11.0) Red Blood Count 2.04 x10^6/uL (3.50-5.40) Hemoglobin 6.5 g/dL (12.0-15.5) Hematocrit 18.6 % (36.0-47.0) Mean Corpuscular Volume 91 fL (79-100) Mean Corpuscular Hemoglobin 32 pg (25-35) Mean Corpuscular Hemoglobin Concent 35 g/dL (31-37) Red Cell Distribution Width 17.3 % (11.5-14.5) Platelet Count 131 x10^3/uL (140-400) Neutrophils (%) (Auto) 69 % (31-73) Lymphocytes (%) (Auto) 17 % (24-48) Monocytes (%) (Auto) 13 % (0-9) Eosinophils (%) (Auto) 1 % (0-3) Basophils (%) (Auto) 1 % (0-3) Neutrophils # (Auto) 3.3 x10^3/uL (1.8-7.7) Lymphocytes # (Auto) 0.8 x10^3/uL (1.0-4.8) Monocytes # (Auto) 0.6 x10^3/uL (0.0-1.1) Eosinophils # (Auto) 0.0 x10^3/uL (0.0-0.7) Basophils # (Auto) 0.0 x10^3/uL (0.0-0.2) Sodium Level 140 mmol/L (136-145) Potassium Level 3.9 mmol/L (3.5-5.1) Chloride Level 102 mmol/L (98-107) Carbon Dioxide Level 29 mmol/L (21-32) Anion Gap 9 (6-14) Blood Urea Nitrogen 44 mg/dL (7-20) Creatinine 4.8 mg/dL (0.6-1.0) Estimated GFR (Cockcroft-Gault) 11.0 BUN/Creatinine Ratio 9 (6-20) Glucose Level 124 mg/dL (70-99) Calcium Level 8.0 mg/dL (8.5-10.1) Phosphorus Level 4.7 mg/dL (2.6-4.7) Total Bilirubin 0.5 mg/dL (0.2-1.0) Aspartate Amino Transf (AST/SGOT) 41 U/L (15-37) Alanine Aminotransferase (ALT/SGPT) 11 U/L (14-59) Alkaline Phosphatase 129 U/L (46-116) Total Protein 5.3 g/dL (6.4-8.2) Albumin 2.0 g/dL (3.4-5.0) Albumin/Globulin Ratio 0.6 (1.0-1.7) Medications Current Medications Ondansetron HCl (Zofran) 4 mg 1X ONCE IV Last administered on 07/01/19at 05:25; Start 06/30/19 at 23:00; Stop 06/30/19 at 23:01; Status DC Pantoprazole Sodium (PROTONIX VIAL for IV PUSH) 40 mg 1X ONCE IVP ; Start 06/30/19 at 23:00; Stop 06/30/19 at 23:29; Status DC Pantoprazole Sodium (PROTONIX VIAL for IV PUSH) 80 mg 1X ONCE IVP Last administered on 07/01/19at 05:25; Start 06/30/19 at 23:45; Stop 06/30/19 at 23:46; Status DC Pantoprazole Sodium 80 mg/ Sodium Chloride 100 ml @ 10 mls/hr Q10H IV Last administered on 07/01/19at 17:36; Start 07/01/19 at 00:00; Stop 07/01/19 at 20:24; Status DC Fentanyl Citrate (Fentanyl 2ml Vial) 50 mcg 1X ONCE IM Last administered on 07/01/19at 05:25; Start 07/01/19 at 01:30; Stop 07/01/19 at 01:31; Status DC Lidocaine HCl 20 ml STK-MED ONCE .ROUTE ; Start 07/01/19 at 01:27; Stop 07/01/19 at 01:27; Status DC Sodium Chloride (NORMAL SALINE FLUSH for STERILE FIELD) 10 ml STK-MED ONCE .ROUTE ; Start 07/01/19 at 01:27; Stop 07/01/19 at 01:27; Status DC Sodium Chloride (NORMAL SALINE FLUSH for STERILE FIELD) 10 ml STK-MED ONCE .R OUTE ; Start 07/01/19 at 03:34; Stop 07/01/19 at 03:36; Status DC Pantoprazole Sodium (PROTONIX VIAL for IV PUSH) 40 mg STK-MED ONCE IVP ; Start 07/01/19 at 05:19; Stop 07/01/19 at 05:20; Status DC Ondansetron HCl (Zofran) 4 mg STK-MED ONCE .ROUTE ; Start 07/01/19 at 05:20; Stop 07/01/19 at 05:20; Status DC Ringer's Solution 1,000 ml @ 75 mls/hr 1X ONCE IV ; Start 07/01/19 at 10:45; Stop 07/02/19 at 00:04; Status DC Sodium Chloride 1,000 ml @ 100 mls/hr Q10H IV Last administered on 07/01/19at 10:50; Start 07/01/19 at 11:00; Stop 07/02/19 at 09:28; Status DC Epinephrine HCl (EPINEPHrine SYRINGE) 6 mg STK-MED ONCE SQ Last administered on 07/01/19at 11:15; Start 07/01/19 at 11:03; Stop 07/01/19 at 11:15; Status DC Epinephrine HCl (EPINEPHrine SYRINGE) 1 mg STK-MED ONCE .ROUTE ; Start 07/01/19 at 11:53; Stop 07/01/19 at 11:53; Status DC Iohexol (Omnipaque 240 Mg/ml) 100 ml STK-MED ONCE .ROUTE ; Start 07/01/19 at 12:01; Stop 07/01/19 at 12:02; Status DC Lidocaine/Sodium Bicarbonate (Buffered Lidocaine 1%) 3 ml STK-MED ONCE .ROUTE ; Start 07/01/19 at 12:02; Stop 07/01/19 at 12:02; Status DC Heparin Sodium/ Sodium Chloride 1,500 ml @ As Directed STK-MED ONCE .ROUTE ; Start 07/01/19 at 12:02; Stop 07/01/19 at 12:02; Status DC Iohexol (Omnipaque 240 Mg/ml) 50 ml STK-MED ONCE .ROUTE ; Start 07/01/19 at 12:02; Stop 07/01/19 at 12:02; Status DC Iohexol (Omnipaque 240 Mg/ml) 50 ml STK-MED ONCE .ROUTE ; Start 07/01/19 at 12:46; Stop 07/01/19 at 12:46; Status DC Heparin Sodium/ Sodium Chloride (HEPARIN for ARTERIAL LINE FLUSH) 2,000 unit 1X ONCE IART Last administered on 07/01/19at 14:20; Start 07/01/19 at 13:15; Stop 07/01/19 at 13:17; Status DC Heparin Sodium/ Sodium Chloride (HEPARIN for ARTERIAL LINE FLUSH) 1,000 unit 1X ONCE IART Last administered on 07/01/19at 14:20; Start 07/01/19 at 13:15; Stop 07/01/19 at 13:17; Status DC Lidocaine/Sodium Bicarbonate (Buffered Lidocaine 1%) 3 ml 1X ONCE IJ Last administered on 07/01/19at 14:20; Start 07/01/19 at 13:15; Stop 07/01/19 at 13:17; Status DC Iohexol (Omnipaque 240 Mg/ml) 50 ml 1X ONCE IART ; Start 07/01/19 at 13:15; Stop 07/01/19 at 13:17; Status DC Iohexol (Omnipaque 240 Mg/ml) 100 ml 1X ONCE INT ART Last administered on 07/01/19at 14:20; Start 07/01/19 at 13:15; Stop 07/01/19 at 13:17; Status DC Iohexol (Omnipaque 300 Mg/ml) 100 ml STK-MED ONCE .ROUTE ; Start 07/01/19 at 13:03; Stop 07/01/19 at 13:03; Status DC Info (CONTRAST GIVEN -- Rx MONITORING) 1 each PRN DAILY PRN MC SEE COMMENTS; Start 07/01/19 at 13:15; Stop 07/03/19 at 13:14; Status DC Multivitamins 10 ml/Thiamine HCl 100 mg/Folic Acid 1 mg/Sodium Chloride 1,011.2 ml @ 100 mls/ hr DAILY IV Last administered on 07/03/19at 08:22; Start 07/01/19 at 14:00; Stop 07/05/19 at 19:07 Multivitamins (Thera M Plus) 1 tab DAILY PO ; Start 07/06/19 at 09:00 Folic Acid (Folic Acid) 1 mg DAILY PO ; Start 07/06/19 at 09:00 Thiamine HCl 100 mg/Dextrose 51 ml @ 100 mls/hr DAILY IV ; Start 07/06/19 at 09:00; Stop 07/10/19 at 09:31 Lorazepam (Ativan) 4 mg PRN Q1HR PRN PO For CIWA 8-14; Start 07/01/19 at 13:15 Lorazepam (Ativan) 8 mg PRN Q1HR PRN PO For CIWA 15 or greater; Start 07/01/19 at 13:15 Lorazepam (Ativan Inj) 2 mg PRN Q1HR PRN IV For CIWA 8-14 Last administered on 07/01/19at 17:12; Start 07/01/19 at 13:15 Lorazepam (Ativan Inj) 4 mg PRN Q1HR PRN IV For CIWA 15 or greater; Start 07/01/19 at 13:15 Haloperidol Lactate (Haldol Inj) 5 mg PRN Q4HRS PRN IVP Hallucinatns,Confusn,Delirium; Start 07/01/19 at 13:15 Diphenhydramine HCl (Benadryl) 25 mg PRN Q15MIN PRN IVP EPS symptoms 2'Haldol admin; Start 07/01/19 at 13:15 Clonidine HCl (Catapres) 0.1 mg PRN Q1HR PRN PO SBP > 180 or DBP > 100, MRX3; Start 07/01/19 at 13:15 Lorazepam (Ativan Inj) 2 mg PRN Q15MIN PRN IV SEE COMMENTS; Start 07/01/19 at 13:15 Lorazepam (Ativan Inj) 4 mg PRN Q15MIN PRN IV SEE COMMENTS; Start 07/01/19 at 13:15 Acetaminophen (Tylenol) 650 mg PRN Q6HRS PRN PO Headaches, Temp > 101.5' Last administered on 07/03/19at 01:11; Start 07/01/19 at 13:15 Lorazepam (Ativan Inj) 0.5 mg PRN Q6HRS PRN IV ANXIETY / AGITATION; Start 07/01/19 at 13:15 Ondansetron HCl (Zofran) 4 mg PRN Q6HRS PRN IV NAUSEA/VOMITING Last administered on 07/03/19at 05:19; Start 07/01/19 at 13:15 Sodium Chloride (Normal Saline Flush) 3 ml QSHIFT PRN IV AFTER MEDS AND BLOOD DRAWS; Start 07/01/19 at 13:15 Lactobacillus Rhamnosus (Culturelle) 1 cap BID PO Last administered on 07/03/19at 08:22; Start 07/01/19 at 21:00 Polyethylene Glycol (miraLAX PACKET) 17 gm PRN DAILY PRN PO CONSTIPATION; Start 07/01/19 at 13:30 Calcium Acetate (Phoslo) 667 mg TIDWMEALS PO Last administered on 07/03/19at 12:19; Start 07/01/19 at 17:00 Carvedilol (Coreg) 25 mg BIDWMEALS PO Last administered on 07/03/19at 08:22; Start 07/01/19 at 17:00 Fentanyl Citrate (Fentanyl 2ml Vial) 100 mcg STK-MED ONCE .ROUTE ; Start 07/01/19 at 14:04; Stop 07/01/19 at 14:04; Status DC Fentanyl Citrate (Fentanyl 2ml Vial) 100 mcg 1X ONCE IV ; Start 07/01/19 at 14:15; Stop 07/01/19 at 14:18; Status DC Pantoprazole Sodium 80 mg/ Sodium Chloride 100 ml @ 10 mls/hr Q10H IV Last administered on 07/02/19at 03:43; Start 07/02/19 at 02:00; Stop 07/02/19 at 10:16; Status DC Sodium Chloride 1,000 ml @ 1,000 mls/hr Q1H PRN IV hypotension; Start 07/02/19 at 07:00; Stop 07/02/19 at 12:59; Status DC Sodium Chloride 1,000 ml @ 400 mls/hr Q2H30M PRN IV PATENCY; Start 07/02/19 at 07:00; Stop 07/02/19 at 18:59; Status DC Info (PHARMACY MONITORING -- do not chart) 1 each PRN DAILY PRN MC SEE COMMENTS; Start 07/02/19 at 08:15; Status UNV Info (PHARMACY MONITORING -- do not chart) 1 each PRN DAILY PRN MC SEE COMMENTS; Start 07/02/19 at 08:15 Pantoprazole Sodium (Protonix) 40 mg DAILYAC PO Last administered on 07/03/19at 07:50; Start 07/03/19 at 07:30 Acetaminophen/ Hydrocodone Bitart (Lortab 5/325) 1 tab PRN Q6HRS PRN PO PAIN Last administered on 07/03/19at 08:22; Start 07/03/19 at 05:15 Fentanyl Citrate (Fentanyl 2ml Vial) 25 mcg PRN Q4HRS PRN IV SEVERE PAIN 7-10 L ast administered on 07/03/19at 05:19; Start 07/03/19 at 05:15 Active Scripts Active Protonix (Pantoprazole Sodium) 20 Mg Tablet.dr 40 Tab PO DAILY Vancomycin Hcl 500 Mg Vial 125 Mg PO [id number] 13 Days Culturelle (Lactobacillus Rhamnosus Gg) 1 Each Cap.sprink 1 Cap PO BID 14 Days Reported Aleve Pm Caplet (Naproxen Na-Diphenhydramin HCl) 1 Each Tablet 1 Each PO HS PRN Nephro-Edward Tablet (Folic Acid/Vitamin B Comp W-C) 0.8 Mg Tablet 1 Tab PO DAILY Calcium Acetate 667 Mg Tablet 667 Mg PO TIDWMEALS Carvedilol 25 Mg Tablet 25 Mg PO BID Folic Acid 1 Mg Tablet 1 Mg PO DAILY Miralax (Polyethylene Glycol 3350) 17 Gm Powd.pack 1 Packet PO PRN DAILY PRN Amlodipine Besylate 10 Mg Tablet 10 Mg PO DAILY Vitals/I & O Vital Sign - Last 24 Hours 07/02/19 07/02/19 07/02/19 07/02/19 17:43 19:00 20:00 23:00 Temp 98.4 98.4 Pulse 80 75 71 B/P (MAP) 132/51 111/45 (67) 104/47 (66) Pulse Ox 100 100 O2 Delivery Nasal Cannula Nasal Cannula Nasal Cannula O2 Flow Rate 2.0 2.0 2.0 07/03/19 07/03/19 07/03/19 07/03/19 03:00 05:19 06:28 07:00 Temp 98.0 98.1 98.0 98.1 Pulse 74 75 Resp 19 18 B/P (MAP) 116/55 (75) 128/66 (86) Pulse Ox 96 98 O2 Delivery Nasal Cannula Room Air Room Air Room Air O2 Flow Rate 2.0 07/03/19 07/03/19 07/03/19 07/03/19 08:00 08:22 08:22 09:54 Temp 98.1 98.1 Pulse 75 74 Resp 18 18 B/P (MAP) 116/42 O2 Delivery Room Air Room Air 07/03/19 07/03/19 07/03/19 07/03/19 10:09 10:29 11:00 11:09 Temp 96.8 97.9 97.9 96.8 97.9 97.9 Pulse 68 69 72 Resp 18 18 18 18 B/P (MAP) 112/46 130/52 (78) 120/54 Pulse Ox 99 O2 Delivery Room Air Room Air 07/03/19 07/03/19 07/03/19 12:09 13:10 15:00 Temp 97.9 97.5 97.9 97.9 97.5 97.9 Pulse 72 73 76 Resp 18 18 18 B/P (MAP) 113/52 131/56 135/49 (77) Pulse Ox 98 O2 Delivery Room Air Intake and Output 07/02/19 07/02/19 07/03/19 15:00 23:00 07:00 Intake Total 373 ml 1310 ml Output Total 0 ml Balance 373 ml [address] pelvis - 1. Comminuted fracture versus pathologic fracture at the pubic bone on the right. 2. Distended stomach. 3. No other acute finding in the abdomen or pelvis. MELY OLVERA MD Jul 03, 2019 16:15
[2019-07-03 19:39] LABS: BASO % 1 % (0-3); EOS # 0.1 x10^3/uL (0.0-0.7); EOS % 2 % (0-3); HEMOGLOBIN 7.1 g/dL (12.0-15.5); LYMPH # 0.7 x10^3/uL (1.0-4.8); LYMPH % 18 % (24-48); MEAN CORPUSCULAR HEMOGLOBIN 33 pg (25-35); MEAN CORPUSCULAR HGB CONC 35 g/dL (31-37); MEAN CORPUSCULAR VOLUME 93 fL (79-100); MONO # 0.6 x10^3/uL (0.0-1.1); MONO % 16 % (0-9); NEUT # 2.4 x10^3/uL (1.8-7.7); NEUT % 64 % (31-73); PLATELET COUNT 135 x10^3/uL (140-400); RED BLOOD COUNT 2.16 x10^6/uL (3.50-5.40); RED CELL DISTRIBUTION WIDTH 16.3 % (11.5-14.5); WHITE BLOOD COUNT 3.8 x10^3/uL (4.0-11.0)
[2019-07-03 19:47] LABS: HEMATOCRIT 20.1 % (36.0-47.0)
[2019-07-04] MEDS: HYDROcodone/APAP 5/325MG 1 TAB TABLET PO PRN (00:01)
[2019-07-04 03:00] VITALS: BP 120/54
[2019-07-04 06:47] LABS: BASO % 1 % (0-3); EOS # 0.1 x10^3/uL (0.0-0.7); EOS % 2 % (0-3); HEMOGLOBIN 7.1 g/dL (12.0-15.5); LYMPH # 0.8 x10^3/uL (1.0-4.8); LYMPH % 22 % (24-48); MEAN CORPUSCULAR HEMOGLOBIN 32 pg (25-35); MEAN CORPUSCULAR HGB CONC 35 g/dL (31-37); MEAN CORPUSCULAR VOLUME 93 fL (79-100); MONO # 0.5 x10^3/uL (0.0-1.1); MONO % 14 % (0-9); NEUT # 2.2 x10^3/uL (1.8-7.7); NEUT % 61 % (31-73); PLATELET COUNT 147 x10^3/uL (140-400); RED BLOOD COUNT 2.22 x10^6/uL (3.50-5.40); RED CELL DISTRIBUTION WIDTH 16.4 % (11.5-14.5); WHITE BLOOD COUNT 3.6 x10^3/uL (4.0-11.0)
[2019-07-04 07:00] VITALS: BP 122/57
[2019-07-04 07:02] LABS: HEMATOCRIT 20.7 % (36.0-47.0)
[2019-07-04 07:06] LABS: CALCIUM 7.7 mg/dL (8.5-10.1); CREATININE 5.9 mg/dL (0.6-1.0); GFR 8.7; PHOSPHORUS 5.5 mg/dL (2.6-4.7); POTASSIUM 4.1 mmol/L (3.5-5.1)
[2019-07-04] MEDS ORDERED: IV NORMAL SALINE 1000ML BAG 1,000 ML IV PRN ×4 (07:52→08:30)
[2019-07-04] MEDS: fentaNYL PF VIAL 100 MCG/2 ML VIAL IV PRN (07:59)
[2019-07-04] MEDS: CALCIUM ACETATE 667 MG CAPSULE PO SCH ×2 (08:00→13:16)
[2019-07-04] MEDS ORDERED: DIALYSIS PATIENT. MC PRN ×4 (08:00→09:00)
[2019-07-04] MEDS ORDERED: ALBUMIN HUMAN 25% 200 ML IV PRN ×2 (08:00→08:30)
[2019-07-04] MEDS ORDERED: diphenhydrAMINE 50 MG/ML VIAL IV PRN (08:30)
--- NOTE | 2019-07-04 11:20 | PDOC ---
Dialysis Progress Note Dialysis Note Dialysis Note Seen on Hemodialysis, tolerating treatment Okay for now Well Vitals on Hemodialysis: 114/54 69 afeb General Appearance: Awake: Alert Oriented x 2 Neck: No JVD or JVP Chest: CTA [place] Heart: S1 S2 Abdomen - Soft NTND Extremities - No Edema ESRD: Dialysis as below F 180 NR 3.5 Hrs 3 K 2.5 Ca 140 Na 35 HC03 Qb 350 + Qd 500+ Heparin 0 Units Uf 2 Kgs or to dry weight as tolerated May give 25-50 gms of 25% Albumin if needed to maintain Hemodynamic stability Treatment plan reviewed and discussed with inside polisher Vitals Vital Signs Vital Signs Date Time Temp Pulse Resp B/P (MAP) Pulse Ox O2 Delivery O2 Flow Rate FiO2 07/04/19 08:01 Room Air 07/04/19 07:00 97.9 74 18 122/57 (78) 100 97.9 07/03/19 03:00 2.0 Labs Last Labs Laboratory Tests Test 07/02/19 12:38 07/02/19 17:08 07/03/19 05:05 07/03/19 08:19 Glucose (Fingerstick) 95 mg/dL (70-99) 109 mg/dL (70-99) 121 mg/dL (70-99) White Blood Count 4.8 x10^3/uL (4.0-11.0) Red Blood Count 2.04 x10^6/uL (3.50-5.40) Hemoglobin 6.5 g/dL (12.0-15.5) Hematocrit 18.6 % (36.0-47.0) Mean Corpuscular Volume 91 fL (79-100) Mean Corpuscular Hemoglobin 32 pg (25-35) Mean Corpuscular Hemoglobin Concent 35 g/dL (31-37) Red Cell Distribution Width 17.3 % (11.5-14.5) Platelet Count 131 x10^3/uL (140-400) Neutrophils (%) (Auto) 69 % (31-73) Lymphocytes (%) (Auto) 17 % (24-48) Monocytes (%) (Auto) 13 % (0-9) Eosinophils (%) (Auto) 1 % (0-3) Basophils (%) (Auto) 1 % (0-3) Neutrophils # (Auto) 3.3 x10^3/uL (1.8-7.7) Lymphocytes # (Auto) 0.8 x10^3/uL (1.0-4.8) Monocytes # (Auto) 0.6 x10^3/uL (0.0-1.1) Eosinophils # (Auto) 0.0 x10^3/uL (0.0-0.7) Basophils # (Auto) 0.0 x10^3/uL (0.0-0.2) Sodium Level 140 mmol/L (136-145) Potassium Level 3.9 mmol/L (3.5-5.1) Chloride Level 102 mmol/L (98-107) Carbon Dioxide Level 29 mmol/L (21-32) Anion Gap 9 (6-14) Blood Urea Nitrogen 44 mg/dL (7-20) Creatinine 4.8 mg/dL (0.6-1.0) Estimated GFR (Cockcroft-Gault) 11.0 BUN/Creatinine Ratio 9 (6-20) Glucose Level 124 mg/dL (70-99) Calcium Level 8.0 mg/dL (8.5-10.1) Phosphorus Level 4.7 mg/dL (2.6-4.7) Total Bilirubin 0.5 mg/dL (0.2-1.0) Aspartate Amino Transf (AST/SGOT) 41 U/L (15-37) Alanine Aminotransferase (ALT/SGPT) 11 U/L (14-59) Alkaline Phosphatase 129 U/L (46-116) Total Protein 5.3 g/dL (6.4-8.2) Albumin 2.0 g/dL (3.4-5.0) Albumin/Globulin Ratio 0.6 (1.0-1.7) Test 07/03/19 11:20 07/03/19 16:40 07/03/19 19:00 07/03/19 20:43 Glucose (Fingerstick) 154 mg/dL (70-99) 130 mg/dL (70-99) 121 mg/dL (70-99) White Blood Count 3.8 x10^3/uL (4.0-11.0) Red Blood Count 2.16 x10^6/uL (3.50-5.40) Hemoglobin 7.1 g/dL (12.0-15.5) Hematocrit 20.1 % (36.0-47.0) Mean Corpuscular Volume 93 fL (79-100) Mean Corpuscular Hemoglobin 33 pg (25-35) Mean Corpuscular Hemoglobin Concent 35 g/dL (31-37) Red Cell Distribution Width 16.3 % (11.5-14.5) Platelet Count 135 x10^3/uL (140-400) Neutrophils (%) (Auto) 64 % (31-73) Lymphocytes (%) (Auto) 18 % (24-48) Monocytes (%) (Auto) 16 % (0-9) Eosinophils (%) (Auto) 2 % (0-3) Basophils (%) (Auto) 1 % (0-3) Neutrophils # (Auto) 2.4 x10^3/uL (1.8-7.7) Lymphocytes # (Auto) 0.7 x10^3/uL (1.0-4.8) Monocytes # (Auto) 0.6 x10^3/uL (0.0-1.1) Eosinophils # (Auto) 0.1 x10^3/uL (0.0-0.7) Basophils # (Auto) 0.0 x10^3/uL (0.0-0.2) Test 07/04/19 06:15 07/04/19 07:37 White Blood Count 3.6 x10^3/uL (4.0-11.0) Red Blood Count 2.22 x10^6/uL (3.50-5.40) Hemoglobin 7.1 g/dL (12.0-15.5) Hematocrit 20.7 % (36.0-47.0) Mean Corpuscular Volume 93 fL (79-100) Mean Corpuscular Hemoglobin 32 pg (25-35) Mean Corpuscular Hemoglobin Concent 35 g/dL (31-37) Red Cell Distribution Width 16.4 % (11.5-14.5) Platelet Count 147 x10^3/uL (140-400) Neutrophils (%) (Auto) 61 % (31-73) Lymphocytes (%) (Auto) 22 % (24-48) Monocytes (%) (Auto) 14 % (0-9) Eosinophils (%) (Auto) 2 % (0-3) Basophils (%) (Auto) 1 % (0-3) Neutrophils # (Auto) 2.2 x10^3/uL (1.8-7.7) Lymphocytes # (Auto) 0.8 x10^3/uL (1.0-4.8) Monocytes # (Auto) 0.5 x10^3/uL (0.0-1.1) Eosinophils # (Auto) 0.1 x10^3/uL (0.0-0.7) Basophils # (Auto) 0.0 x10^3/uL (0.0-0.2) Sodium Level 141 mmol/L (136-145) Potassium Level 4.1 mmol/L (3.5-5.1) Chloride Level 103 mmol/L (98-107) Carbon Dioxide Level 28 mmol/L (21-32) Anion Gap 10 (6-14) Blood Urea Nitrogen 47 mg/dL (7-20) Creatinine 5.9 mg/dL (0.6-1.0) Estimated GFR (Cockcroft-Gault) 8.7 Glucose Level 120 mg/dL (70-99) Calcium Level 7.7 mg/dL (8.5-10.1) Phosphorus Level 5.5 mg/dL (2.6-4.7) Albumin 2.0 g/dL (3.4-5.0) Glucose (Fingerstick) 121 mg/dL (70-99) Laboratory Tests Test 07/03/19 11:20 07/03/19 16:40 07/03/19 19:00 07/03/19 20:43 Glucose (Fingerstick) 154 mg/dL (70-99) 130 mg/dL (70-99) 121 mg/dL (70-99) White Blood Count 3.8 x10^3/uL (4.0-11.0) Red Blood Count 2.16 x10^6/uL (3.50-5.40) Hemoglobin 7.1 g/dL (12.0-15.5) Hematocrit 20.1 % (36.0-47.0) Mean Corpuscular Volume 93 fL (79-100) Mean Corpuscular Hemoglobin 33 pg (25-35) Mean Corpuscular Hemoglobin Concent 35 g/dL (31-37) Red Cell Distribution Width 16.3 % (11.5-14.5) Platelet Count 135 x10^3/uL (140-400) Neutrophils (%) (Auto) 64 % (31-73) Lymphocytes (%) (Auto) 18 % (24-48) Monocytes (%) (Auto) 16 % (0-9) Eosinophils (%) (Auto) 2 % (0-3) Basophils (%) (Auto) 1 % (0-3) Neutrophils # (Auto) 2.4 x10^3/uL (1.8-7.7) Lymphocytes # (Auto) 0.7 x10^3/uL (1.0-4.8) Monocytes # (Auto) 0.6 x10^3/uL (0.0-1.1) Eosinophils # (Auto) 0.1 x10^3/uL (0.0-0.7) Basophils # (Auto) 0.0 x10^3/uL (0.0-0.2) Test 07/04/19 06:15 07/04/19 07:37 White Blood Count 3.6 x10^3/uL (4.0-11.0) Red Blood Count 2.22 x10^6/uL (3.50-5.40) Hemoglobin 7.1 g/dL (12.0-15.5) Hematocrit 20.7 % (36.0-47.0) Mean Corpuscular Volume 93 fL (79-100) Mean Corpuscular Hemoglobin 32 pg (25-35) Mean Corpuscular Hemoglobin Concent 35 g/dL (31-37) Red Cell Distribution Width 16.4 % (11.5-14.5) Platelet Count 147 x10^3/uL (140-400) Neutrophils (%) (Auto) 61 % (31-73) Lymphocytes (%) (Auto) 22 % (24-48) Monocytes (%) (Auto) 14 % (0-9) Eosinophils (%) (Auto) 2 % (0-3) Basophils (%) (Auto) 1 % (0-3) Neutrophils # (Auto) 2.2 x10^3/uL (1.8-7.7) Lymphocytes # (Auto) 0.8 x10^3/uL (1.0-4.8) Monocytes # (Auto) 0.5 x10^3/uL (0.0-1.1) Eosinophils # (Auto) 0.1 x10^3/uL (0.0-0.7) Basophils # (Auto) 0.0 x10^3/uL (0.0-0.2) Sodium Level 141 mmol/L (136-145) Potassium Level 4.1 mmol/L (3.5-5.1) Chloride Level 103 mmol/L (98-107) Carbon Dioxide Level 28 mmol/L (21-32) Anion Gap 10 (6-14) Blood Urea Nitrogen 47 mg/dL (7-20) Creatinine 5.9 mg/dL (0.6-1.0) Estimated GFR (Cockcroft-Gault) 8.7 Glucose Level 120 mg/dL (70-99) Calcium Level 7.7 mg/dL (8.5-10.1) Phosphorus Level 5.5 mg/dL (2.6-4.7) Albumin 2.0 g/dL (3.4-5.0) Glucose (Fingerstick) 121 mg/dL (70-99) Assessment Assessment Problems Medical Problems: (1) Anemia Status: Chronic (2) Cirrhosis Status: Chronic (3) Hyperglycemia Status: Acute (4) Hypoalbuminemia Status: Acute (5) Hyponatremia Status: Acute Plan Plan of Care Problems Medical Problems: (1) Anemia Status: Chronic (2) Cirrhosis Status: Chronic (3) Hyperglycemia Status: Acute (4) Hypoalbuminemia Status: Acute (5) Hyponatremia Status: Acute PAYTON MORALES MD Jul 04, 2019 11:19
[2019-07-04 13:00] VITALS: BP 129/68
[2019-07-04] MEDS: LACTOBACILLUS RHAMNOSUS GG 1 CAPSULE. PO SCH (13:16)
[2019-07-04] MEDS: PANTOPRAZOLE 40 MG TABLET.DR. PO SCH (13:16)
[2019-07-04] MEDS: CARVEDILOL 12.5 MG TABLET. PO SCH (13:16)
[2019-07-04] MEDS: MULTIVIT INFUSN,ADULT 4,VIT K 10 ML, THIAMINE INJ 100 MG, FOLIC ACID INJ 1 MG in IV NOR... IV SCH (13:17)
[2019-07-04 14:33] LABS: BASO % 1 % (0-3); EOS % 1 % (0-3); HEMATOCRIT 21.9 % (36.0-47.0); HEMOGLOBIN 7.7 g/dL (12.0-15.5); LYMPH # 0.6 x10^3/uL (1.0-4.8); LYMPH % 17 % (24-48); MEAN CORPUSCULAR HEMOGLOBIN 32 pg (25-35); MEAN CORPUSCULAR HGB CONC 35 g/dL (31-37); MEAN CORPUSCULAR VOLUME 92 fL (79-100); MONO # 0.5 x10^3/uL (0.0-1.1); MONO % 13 % (0-9); NEUT # 2.5 x10^3/uL (1.8-7.7); NEUT % 69 % (31-73); PLATELET COUNT 161 x10^3/uL (140-400); RED BLOOD COUNT 2.37 x10^6/uL (3.50-5.40); RED CELL DISTRIBUTION WIDTH 16.6 % (11.5-14.5); WHITE BLOOD COUNT 3.6 x10^3/uL (4.0-11.0)
--- NOTE | 2019-07-04 14:53 | PDOC3 ---
Discharge Summary Visit Information Date of Admission: Jun 30, 2019 Date of Discharge: Jul 04, 2019 Admitting Diagnosis: Hematemesis Final Diagnosis Problems Medical Problems: (1) Anemia Status: Chronic (2) Cirrhosis Status: Chronic (3) Hyperglycemia Status: Acute (4) Hypoalbuminemia Status: Acute (5) Hyponatremia Status: Acute Brief Hospital Course Allergies Allergies Coded Allergies Type Severity Reaction Last Updated Verified I S O L A T I O N *CONTACT* Allergy Unknown 07/01/19 Yes acetaminophen Adverse Reaction Intermediate Nausea and Vomiting 07/01/19 Yes Vital Signs Vital Signs Date Time Temp Pulse Resp B/P (MAP) Pulse Ox O2 Delivery O2 Flow Rate FiO2 07/04/19 13:17 75 129/68 07/04/19 13:00 97.9 18 97 Room Air 97.9 Lab Results Laboratory Tests Test 07/02/19 17:08 07/03/19 05:05 07/03/19 08:19 07/03/19 11:20 Glucose (Fingerstick) 109 mg/dL (70-99) 121 mg/dL (70-99) 154 mg/dL (70-99) White Blood Count 4.8 x10^3/uL (4.0-11.0) Red Blood Count 2.04 x10^6/uL (3.50-5.40) Hemoglobin 6.5 g/dL (12.0-15.5) Hematocrit 18.6 % (36.0-47.0) Mean Corpuscular Volume 91 fL (79-100) Mean Corpuscular Hemoglobin 32 pg (25-35) Mean Corpuscular Hemoglobin Concent 35 g/dL (31-37) Red Cell Distribution Width 17.3 % (11.5-14.5) Platelet Count 131 x10^3/uL (140-400) Neutrophils (%) (Auto) 69 % (31-73) Lymphocytes (%) (Auto) 17 % (24-48) Monocytes (%) (Auto) 13 % (0-9) Eosinophils (%) (Auto) 1 % (0-3) Basophils (%) (Auto) 1 % (0-3) Neutrophils # (Auto) 3.3 x10^3/uL (1.8-7.7) Lymphocytes # (Auto) 0.8 x10^3/uL (1.0-4.8) Monocytes # (Auto) 0.6 x10^3/uL (0.0-1.1) Eosinophils # (Auto) 0.0 x10^3/uL (0.0-0.7) Basophils # (Auto) 0.0 x10^3/uL (0.0-0.2) Sodium Level 140 mmol/L (136-145) Potassium Level 3.9 mmol/L (3.5-5.1) Chloride Level 102 mmol/L (98-107) Carbon Dioxide Level 29 mmol/L (21-32) Anion Gap 9 (6-14) Blood Urea Nitrogen 44 mg/dL (7-20) Creatinine 4.8 mg/dL (0.6-1.0) Estimated GFR (Cockcroft-Gault) 11.0 BUN/Creatinine Ratio 9 (6-20) Glucose Level 124 mg/dL (70-99) Calcium Level 8.0 mg/dL (8.5-10.1) Phosphorus Level 4.7 mg/dL (2.6-4.7) Total Bilirubin 0.5 mg/dL (0.2-1.0) Aspartate Amino Transf (AST/SGOT) 41 U/L (15-37) Alanine Aminotransferase (ALT/SGPT) 11 U/L (14-59) Alkaline Phosphatase 129 U/L (46-116) Total Protein 5.3 g/dL (6.4-8.2) Albumin 2.0 g/dL (3.4-5.0) Albumin/Globulin Ratio 0.6 (1.0-1.7) Test 07/03/19 16:40 07/03/19 19:00 07/03/19 20:43 07/04/19 06:15 Glucose (Fingerstick) 130 mg/dL (70-99) 121 mg/dL (70-99) White Blood Count 3.8 x10^3/uL (4.0-11.0) 3.6 x10^3/uL (4.0-11.0) Red Blood Count 2.16 x10^6/uL (3.50-5.40) 2.22 x10^6/uL (3.50-5.40) Hemoglobin 7.1 g/dL (12.0-15.5) 7.1 g/dL (12.0-15.5) Hematocrit 20.1 % (36.0-47.0) 20.7 % (36.0-47.0) Mean Corpuscular Volume 93 fL (79-100) 93 fL (79-100) Mean Corpuscular Hemoglobin 33 pg (25-35) 32 pg (25-35) Mean Corpuscular Hemoglobin Concent 35 g/dL (31-37) 35 g/dL (31-37) Red Cell Distribution Width 16.3 % (11.5-14.5) 16.4 % (11.5-14.5) Platelet Count 135 x10^3/uL (140-400) 147 x10^3/uL (140-400) Neutrophils (%) (Auto) 64 % (31-73) 61 % (31-73) Lymphocytes (%) (Auto) 18 % (24-48) 22 % (24-48) Monocytes (%) (Auto) 16 % (0-9) 14 % (0-9) Eosinophils (%) (Auto) 2 % (0-3) 2 % (0-3) Basophils (%) (Auto) 1 % (0-3) 1 % (0-3) Neutrophils # (Auto) 2.4 x10^3/uL (1.8-7.7) 2.2 x10^3/uL (1.8-7.7) Lymphocytes # (Auto) 0.7 x10^3/uL (1.0-4.8) 0.8 x10^3/uL (1.0-4.8) Monocytes # (Auto) 0.6 x10^3/uL (0.0-1.1) 0.5 x10^3/uL (0.0-1.1) Eosinophils # (Auto) 0.1 x10^3/uL (0.0-0.7) 0.1 x10^3/uL (0.0-0.7) Basophils # (Auto) 0.0 x10^3/uL (0.0-0.2) 0.0 x10^3/uL (0.0-0.2) Sodium Level 141 mmol/L (136-145) Potassium Level 4.1 mmol/L (3.5-5.1) Chloride Level 103 mmol/L (98-107) Carbon Dioxide Level 28 mmol/L (21-32) Anion Gap 10 (6-14) Blood Urea Nitrogen 47 mg/dL (7-20) Creatinine 5.9 mg/dL (0.6-1.0) Estimated GFR (Cockcroft-Gault) 8.7 Glucose Level 120 mg/dL (70-99) Calcium Level 7.7 mg/dL (8.5-10.1) Phosphorus Level 5.5 mg/dL (2.6-4.7) Albumin 2.0 g/dL (3.4-5.0) Test 07/04/19 07:37 07/04/19 12:15 Glucose (Fingerstick) 121 mg/dL (70-99) White Blood Count 3.6 x10^3/uL (4.0-11.0) Red Blood Count 2.37 x10^6/uL (3.50-5.40) Hemoglobin 7.7 g/dL (12.0-15.5) Hematocrit 21.9 % (36.0-47.0) Mean Corpuscular Volume 92 fL (79-100) Mean Corpuscular Hemoglobin 32 pg (25-35) Mean Corpuscular Hemoglobin Concent 35 g/dL (31-37) Red Cell Distribution Width 16.6 % (11.5-14.5) Platelet Count 161 x10^3/uL (140-400) Neutrophils (%) (Auto) 69 % (31-73) Lymphocytes (%) (Auto) 17 % (24-48) Monocytes (%) (Auto) 13 % (0-9) Eosinophils (%) (Auto) 1 % (0-3) Basophils (%) (Auto) 1 % (0-3) Neutrophils # (Auto) 2.5 x10^3/uL (1.8-7.7) Lymphocytes # (Auto) 0.6 x10^3/uL (1.0-4.8) Monocytes # (Auto) 0.5 x10^3/uL (0.0-1.1) Eosinophils # (Auto) 0.0 x10^3/uL (0.0-0.7) Basophils # (Auto) 0.0 x10^3/uL (0.0-0.2) Laboratory Tests Test 07/03/19 16:40 07/03/19 19:00 9/6/19 20:43 07/04/19 06:15 Glucose (Fingerstick) 130 mg/dL (70-99) 121 mg/dL (70-99) White Blood Count 3.8 x10^3/uL (4.0-11.0) 3.6 x10^3/uL (4.0-11.0) Red Blood Count 2.16 x10^6/uL (3.50-5.40) 2.22 x10^6/uL (3.50-5.40) Hemoglobin 7.1 g/dL (12.0-15.5) 7.1 g/dL (12.0-15.5) Hematocrit 20.1 % (36.0-47.0) 20.7 % (36.0-47.0) Mean Corpuscular Volume 93 fL (79-100) 93 fL (79-100) Mean Corpuscular Hemoglobin 33 pg (25-35) 32 pg (25-35) Mean Corpuscular Hemoglobin Concent 35 g/dL (31-37) 35 g/dL (31-37) Red Cell Distribution Width 16.3 % (11.5-14.5) 16.4 % (11.5-14.5) Platelet Count 135 x10^3/uL (140-400) 147 x10^3/uL (140-400) Neutrophils (%) (Auto) 64 % (31-73) 61 % (31-73) Lymphocytes (%) (Auto) 18 % (24-48) 22 % (24-48) Monocytes (%) (Auto) 16 % (0-9) 14 % (0-9) Eosinophils (%) (Auto) 2 % (0-3) 2 % (0-3) Basophils (%) (Auto) 1 % (0-3) 1 % (0-3) Neutrophils # (Auto) 2.4 x10^3/uL (1.8-7.7) 2.2 x10^3/uL (1.8-7.7) Lymphocytes # (Auto) 0.7 x10^3/uL (1.0-4.8) 0.8 x10^3/uL (1.0-4.8) Monocytes # (Auto) 0.6 x10^3/uL (0.0-1.1) 0.5 x10^3/uL (0.0-1.1) Eosinophils # (Auto) 0.1 x10^3/uL (0.0-0.7) 0.1 x10^3/uL (0.0-0.7) Basophils # (Auto) 0.0 x10^3/uL (0.0-0.2) 0.0 x10^3/uL (0.0-0.2) Sodium Level 141 mmol/L (136-145) Potassium Level 4.1 mmol/L (3.5-5.1) Chloride Level 103 mmol/L (98-107) Carbon Dioxide Level 28 mmol/L (21-32) Anion Gap 10 (6-14) Blood Urea Nitrogen 47 mg/dL (7-20) Creatinine 5.9 mg/dL (0.6-1.0) Estimated GFR (Cockcroft-Gault) 8.7 Glucose Level 120 mg/dL (70-99) Calcium Level 7.7 mg/dL (8.5-10.1) Phosphorus Level 5.5 mg/dL (2.6-4.7) Albumin 2.0 g/dL (3.4-5.0) Test 07/04/19 07:37 07/04/19 12:15 Glucose (Fingerstick) 121 mg/dL (70-99) White Blood Count 3.6 x10^3/uL (4.0-11.0) Red Blood Count 2.37 x10^6/uL (3.50-5.40) Hemoglobin 7.7 g/dL (12.0-15.5) Hematocrit 21.9 % (36.0-47.0) Mean Corpuscular Volume 92 fL (79-100) Mean Corpuscular Hemoglobin 32 pg (25-35) Mean Corpuscular Hemoglobin Concent 35 g/dL (31-37) Red Cell Distribution Width 16.6 % (11.5-14.5) Platelet Count 161 x10^3/uL (140-400) Neutrophils (%) (Auto) 69 % (31-73) Lymphocytes (%) (Auto) 17 % (24-48) Monocytes (%) (Auto) 13 % (0-9) Eosinophils (%) (Auto) 1 % (0-3) Basophils (%) (Auto) 1 % (0-3) Neutrophils # (Auto) 2.5 x10^3/uL (1.8-7.7) Lymphocytes # (Auto) 0.6 x10^3/uL (1.0-4.8) Monocytes # (Auto) 0.5 x10^3/uL (0.0-1.1) Eosinophils # (Auto) 0.0 x10^3/uL (0.0-0.7) Basophils # (Auto) 0.0 x10^3/uL (0.0-0.2) Brief Hospital Course Ms Fernandez is a 64 year old female with history of end stage renal disease on hemodialysis previous GI bleeding who presents with complaining of vomiting blood. Patient states she had 2 episodes of vomiting blood prior to arrival to ER as a dark colored blood about half cup of blood during episodes of vomiting. Patient states she has had episodes of black stool for the last 5 days prior to admit that usually happen once or twice a day without vomiting. Hgb 4.5 in ED received PRBC and dialysis on 07/01. EGD found pre-pyloric ulcer oozing on 07/02/19. Hb to 7.7 this morning after dialysis. S/p 1u PRBC on 07/03. She is eating a bit of ice cream. Feels somewhat improved. No CP or SOB. Wishes to go home to see h er grandchild. Vitals Vital Signs Date Time Temp Pulse Resp B/P (MAP) Pulse Ox O2 Delivery O2 Flow Rate FiO2 07/03/19 15:00 97.9 76 18 135/49 (77) 98 Room Air 97.9 07/03/19 03:00 2.0 Physical Exam General: Alert, Cooperative, No acute distress, Other (she responds minimally to yes and no questions) Heart: Regular rate Lungs: Clear Abdomen: Normal bowel sounds, Soft Extremities: No cyanosis Pubic rami fracture - seen by ortho. this is not operative. Pain control ACUTE ugi bleeding, pre-pyloric ulcer Internal fixation of healed right distal femoral and proximal tibial fractures. Mild bilateral knee osteoarthritis with suspected trace right knee effusion. HX alcohol abuse (was drinking gin), Chronic back pain, Previous gastrointestinal bleed, End-stage renal disease on dialysis, She missed HD Saturday, last HD was on Saturday . HX Clostridium difficile, Cholelithiasis, Obesity, Trace tricuspid regurgitation with an estimated PAP of 52 mmHg. Arteriovenous shunt. Greater than 30 minutes spent on d/c Discharge Information Condition at Discharge: Improved Follow Up: Weeks (1) Disposition/Orders: D/C to Home Scheduled Amlodipine Besylate (Amlodipine Besylate) 10 Mg Tablet, 10 MG PO DAILY for htn, (Reported) Entered as Reported by: KRISS MOISE on 09/28/16 1356 Last Action: HELD on 07/01/191318 by ASHIA MOSS MD Calcium Acetate (Calcium Acetate) 667 Mg Tablet, 667 MG PO TIDWMEALS for PHOSPHORUS BINDER, (Reported) Entered as Reported by: HENRI MCCOY RN on 11/03/181202 Last Action: Converted on 07/01/191318 by ASHIA MOSS MD Carvedilol (Carvedilol) 25 Mg Tablet, 25 MG PO BID for HYPERTENSION, (Reported) Entered as Reported by: HENRI MCCOY RN on 11/03/181202 Last Action: Converted on 07/01/191318 by ASHIA MOSS MD Folic Acid (Folic Acid) 1 Mg Tablet, 1 MG PO DAILY for VITAMIN, (Reported) Entered as Reported by: HENRI MCCOY RN on 11/03/181202 Last Action: HELD on 07/01/191318 by ASHIA MOSS MD Folic Acid/Vitamin B Comp W-C (Nephro-Edward Tablet) 0.8 Mg Tablet, 1 TAB PO DAILY for VITAMIN, (Reported) Entered as Reported by: HENRI MCCOY RN on 11/03/181202 Last Action: HELD on 07/01/191318 by ASHIA MOSS MD Lactobacillus Rhamnosus Gg (Culturelle) 1 Each Cap.sprink, 1 CAP PO BID for 14 Days, #28 Prescribed by: NORA KNIGHT on 03/06/18 1039 Last Action: Continued on 07/01/191318 by ASHIA MOSS MD Pantoprazole Sodium (Protonix) 20 Mg Tablet.dr, 40 TAB PO DAILY for PUD, #30 Prescribed by: ELSY UNDERWOOD on 11/06/18 0902 Last Action: HELD on 07/01/191318 by ASHIA MOSS MD Vancomycin Hcl (Vancomycin Hcl) 500 Mg Vial, 125 MG PO [id number] for cdiff for 13 Days Prescribed by: ALEX CASTRO MD on 10/02/18 0826 Scheduled PRN Naproxen Na-Diphenhydramin HCl (Aleve Pm Caplet) 1 Each Tablet, 1 EACH PO HS PRN for INSOMNIA, (Reported) Entered as Reported by: ANAY ORANTES on 02/25/192036 Last Action: HELD on 07/01/191318 by ASHIA MOSS MD Polyethylene Glycol 3350 (Miralax) 17 Gm Powd.pack, 1 PACKET PO PRN DAILY PRN for CONSTIPATION, #30 Ref 3 (Reported) Entered as Reported by: Mat Retana on 05/30/18 0940 Last Action: Continued on 07/01/191318 by MD WADE CÁRDENAS CHRISTOPHER S MD Jul 04, 2019 14:53
[2019-07-04] MEDS ORDERED: HYDR-2761 PO (14:57)
[2019-07-04] MEDS ORDERED: PANT40TA77 PO (14:57)
[2019-07-04 15:00] VITALS: BP 131/48
--- NOTE | 2019-07-04 16:44 | NUR ---
Discharge Note: Patient was discharged home with self care. Patients IV was discontinued without any complications per RN. Patient was given discharge summary/instructions, follow-ups, prescriptions and educational material. Patient did not have any further questions or concerns. Patient was taken to main entrance via wheelchair with all personal belongings, accompanied by BRIDGET Elmore, where her family was waiting her to take her home.
[2019-07-06] MEDS ORDERED: FOLIC ACID 1 MG TABLET. PO SCH (09:00)
[2019-07-06] MEDS ORDERED: THIAMINE INJ 100 MG in IV DEXTROSE 5% 50 ML IV SCH (09:00)
[2019-07-06] MEDS ORDERED: MULTIVITAMIN with MINERAL TABLET. PO SCH (09:00)
== END 2019-07-04 16:51 | disposition home health service (06) | DRG 377 ==
LOC: ER 22:13 → 1 WEST ICU 23:30 → 5 SOUTH 07-03 00:20
PROVIDERS: ADMIT Internal Medicine; ATTEND Internal Medicine
PROC: 05HY33Z Insertion of Infusion Device into Upper Vein, Percutaneous Approach (ICD-10-PCS; 2019-06-30)
PROC: 3E0G8GC Introduction of Other Therapeutic Substance into Upper GI, Via Natural or Artificial Opening Endoscopic (ICD-10-PCS; 2019-07-01)
PROC: 0W3P8ZZ Control Bleeding in Gastrointestinal Tract, Via Natural or Artificial Opening Endoscopic (ICD-10-PCS; 2019-07-01)
PROC: 30233N1 Transfusion of Nonautologous Red Blood Cells into Peripheral Vein, Percutaneous Approach (ICD-10-PCS; principal; 2019-07-01 11:00)
PROC: 5A1D70Z Performance of Urinary Filtration, Intermittent, Less than 6 Hours Per Day (ICD-10-PCS; 2019-07-03)
PROC: 5A1D70Z Performance of Urinary Filtration, Intermittent, Less than 6 Hours Per Day (ICD-10-PCS; 2019-07-04)
DX: K25.0 Acute gastric ulcer with hemorrhage (principal); N18.6 End stage renal disease; M84.454A Pathological fracture, pelvis, initial encounter for fracture; E87.1 Hypo-osmolality and hyponatremia; I12.0 Hypertensive chronic kidney disease with stage 5 chronic kidney disease or end stage renal disease; J98.11 Atelectasis; M17.0 Bilateral primary osteoarthritis of knee; D64.9 Anemia, unspecified; E11.22 Type 2 diabetes mellitus with diabetic chronic kidney disease; E11.65 Type 2 diabetes mellitus with hyperglycemia; E21.3 Hyperparathyroidism, unspecified; E66.9 Obesity, unspecified; E78.00 Pure hypercholesterolemia, unspecified; F10.10 Alcohol abuse, uncomplicated; F17.210 Nicotine dependence, cigarettes, uncomplicated; G89.29 Other chronic pain; E78.5 Hyperlipidemia, unspecified; K21.0 Gastro-esophageal reflux disease with esophagitis; K25.4 Chronic or unspecified gastric ulcer with hemorrhage; K59.00 Constipation, unspecified; K74.60 Unspecified cirrhosis of liver; K76.0 Fatty (change of) liver, not elsewhere classified; K80.20 Calculus of gallbladder without cholecystitis without obstruction; M06.9 Rheumatoid arthritis, unspecified; M46.96 Unspecified inflammatory spondylopathy, lumbar region; N20.0 Calculus of kidney; N28.1 Cyst of kidney, acquired; Z87.11 Personal history of peptic ulcer disease; Z87.19 Personal history of other diseases of the digestive system; Z90.49 Acquired absence of other specified parts of digestive tract; Z90.711 Acquired absence of uterus with remaining cervical stump; Z99.2 Dependence on renal dialysis; Z88.8 Allergy status to other drugs, medicaments and biological substances; Z91.15 Patient's noncompliance with renal dialysis; Z68.37 Body mass index [BMI] 37.0-37.9, adult
CPT/HCPCS: 36415; 36556; 37244; 43255; 74176; 75726; 76937; 80053; 80069; 82271; 82274; 82962; 84100; 85014; 85018; 85025; 85027; 85610; 85730; 86850; 86900; 86901; 86920; 96372; 96374; 96375; 99292; C1713; C1760; C1769; C1887; C1892; C1894; C9113; G0269; J0171; J1644; J2060; J2405; J3010; J7030; P9016; Q9966; 97116; 99291-25; G0378

== ENCOUNTER 2019-07-21 08:16 | Inpatient (IN) | payer OTHER, MEDICAID ==
[~2019-07-21] VITALS: Ht 157.5 cm; Wt 94.0 kg
[2019-07-21] VITALS (24 sets, daily range): BP systolic 103–154; BP diastolic 47–68
[2019-07-21] MEDS ORDERED: PANTOPRAZOLE IV PUSH 40 MG VIAL. IVP ONE (08:30)
[2019-07-21] MEDS ORDERED: MORPHINE SULFATE 2 MG/ML VIAL. IV/SQ PRN (08:30)
--- NOTE | 2019-07-21 08:36 | PHYS DOC ---
Past Medical History Past Medical History: Diabetes-Type II, High Cholesterol, Heart Disease, Hypertension, Renal Failure Additional Past Medical Histor: DIARRHEA Past Surgical History: Cholecystectomy, Hysterectomy, Tonsillectomy Additional Past Surgical Histo: RT KNEE, SHUNT RIGHT CHEST, dialysis graft, RT femur repair with fermin Alcohol Use: Occasionally Drug Use: None Adult General Chief Complaint Chief Complaint: BLOODY STOOL HPI HPI Patient is a 64 year old female with history of diabetes type 2, hypertension, high cholesterol, end-stage kidney disease on dialysis Saturday last dialyzed on Saturday who presents to the ED today complaining of vomiting blood and rectal bleeding with clots that began this morning. Patient is complaining of mild diffuse abdominal pain worse on pushing her abdomen. She states she feels her abdomen is distended as well. Denies any fever. Denies any chest pain or shortness of breath. She states she had a similar episode around July 01, 2019 and they did an EGD which showed she had a bleeding ulcer. Review of Systems Review of Systems Constitutional: Denies fever or chills [] Eyes: Denies change in visual acuity, redness, or eye pain [] HENT: Denies nasal congestion or sore throat [] Respiratory: Denies cough or shortness of breath [] Cardiovascular: No additional information not addressed in HPI [] GI: Reports vomiting blood, rectal bleeding, generalized abdominal pain. : Denies dysuria or hematuria [] Musculoskeletal: Denies back pain or joint pain [] Integument: Denies rash or skin lesions [] Neurologic: Denies headache, focal weakness or sensory changes [] Endocrine: End-stage kidney disease on dialysis All other systems were reviewed and found to be within normal limits, except as documented in this note. Current Medications Current Medications Current Medications Medications (Trade) Dose Ordered Sig/Kimberly Start Time Stop Time Status Last Admin Dose Admin Morphine Sulfate (Morphine Sulfate) 2 mg PRN Q15MIN PRN 07/21/19 08:30 07/22/19 08:29 07/21/19 09:46 2 MG Ondansetron HCl (Zofran) 4 mg 1X ONCE 07/21/19 09:45 07/21/19 09:46 DC 07/21/19 09:46 4 MG Pantoprazole Sodium (PROTONIX VIAL for IV PUSH) 40 mg 1X ONCE 07/21/19 08:30 07/21/19 08:32 DC 07/21/19 09:18 40 MG Pantoprazole Sodium 80 mg/ Sodium Chloride 100 ml @ 10 mls/hr Q10H 07/21/19 09:45 07/21/19 10:06 10 MLS/HR Allergies Allergies Allergies Coded Allergies Type Severity Reaction Last Updated Verified I S O L A T I O N *CONTACT* Allergy Unknown 07/01/19 Yes acetaminophen Adverse Reaction Intermediate Nausea and Vomiting 07/01/19 Yes Physical Exam Physical Exam Constitutional: Well developed, well nourished, no acute distress, non-toxic appearance. [] HENT: Normocephalic, atraumatic, bilateral external ears normal, oropharynx moist, no oral exudates, nose normal. [] Eyes: PERRLA, EOMI, conjunctiva normal, no discharge. [] Neck: Normal range of motion, no tenderness, supple, no stridor. [] Cardiovascular:Heart rate regular rhythm, no murmur [] Lungs & Thorax: Bilateral breath sounds clear to auscultation [] Abdomen: Rounded distended abdomen. Bowel sounds normal, soft, diffuse tenderness throughout the abdomen, no masses, no pulsatile masses. [] Skin: Warm, dry, no erythema, no rash. Dialysis fistula noted on the left upper extremity with positive bruit and thrill Back: No tenderness, no CVA tenderness. [] Extremities: No tenderness, no cyanosis, no clubbing, ROM intact, no edema. [] Neurologic: Alert and oriented X 3, normal motor function, normal sensory function, no focal deficits noted. [] Psychologic: Affect normal, judgement normal, mood normal. [] Current Patient Data Vital Signs Vital Signs Date Time Temp Pulse Resp B/P (MAP) Pulse Ox O2 Delivery O2 Flow Rate FiO2 07/21/19 09:46 18 98 Room Air 07/21/19 09:40 73 131/60 (83) 07/21/19 08:22 97.9 97.9 Lab Values Laboratory Tests Test 07/21/19 08:55 07/21/19 09:15 Gastric Fluid Occult Blood Positive (NEG) White Blood Count 4.7 x10^3/uL (4.0-11.0) Red Blood Count 1.63 x10^6/uL (3.50-5.40) L Hemoglobin 5.4 g/dL (12.0-15.5) *L Hematocrit 16.0 % (36.0-47.0) *L Mean Corpuscular Volume 98 fL (79-100) Mean Corpuscular Hemoglobin 33 pg (25-35) Mean Corpuscular Hemoglobin Concent 34 g/dL (31-37) Red Cell Distribution Width 21.0 % (11.5-14.5) H Platelet Count 141 x10^3/uL (140-400) Neutrophils (%) (Auto) 70 % (31-73) Lymphocytes (%) (Auto) 17 % (24-48) L Monocytes (%) (Auto) 12 % (0-9) H Eosinophils (%) (Auto) 1 % (0-3) Basophils (%) (Auto) 1 % (0-3) Neutrophils # (Auto) 3.3 x10^3/uL (1.8-7.7) Lymphocytes # (Auto) 0.8 x10^3/uL (1.0-4.8) L Monocytes # (Auto) 0.5 x10^3/uL (0.0-1.1) Eosinophils # (Auto) 0.0 x10^3/uL (0.0-0.7) Basophils # (Auto) 0.0 x10^3/uL (0.0-0.2) Platelet Estimate Adequate (ADEQUATE) Polychromasia Present Anisocytosis Mod Macrocytosis Slight Prothrombin Time 16.1 SEC (11.7-14.0) H Prothrombin Time INR 1.3 (0.8-1.1) H Activated Partial Thromboplast Time 32 SEC (24-38) Sodium Level 134 mmol/L (136-145) L Potassium Level 6.4 mmol/L (3.5-5.1) *H Chloride Level 94 mmol/L (98-107) L Carbon Dioxide Level 29 mmol/L (21-32) Anion Gap 11 (6-14) Blood Urea Nitrogen 66 mg/dL (7-20) H Creatinine 10.6 mg/dL (0.6-1.0) H Estimated GFR (Cockcroft-Gault) 4.4 BUN/Creatinine Ratio 6 (6-20) Glucose Level 133 mg/dL (70-99) H Calcium Level 8.2 mg/dL (8.5-10.1) L Magnesium Level 1.8 mg/dL (1.8-2.4) Total Bilirubin 0.4 mg/dL (0.2-1.0) Aspartate Amino Transferase (AST) 33 U/L (15-37) Alanine Aminotransferase (ALT) 14 U/L (14-59) Alkaline Phosphatase 200 U/L (46-116) H Creatine Kinase 64 U/L (26-192) Creatine Kinase MB (Mass) 1.9 ng/mL (0.0-3.6) Creatine Kinase MB Relative Index % (0-4) Total Protein 6.2 g/dL (6.4-8.2) L Albumin 2.2 g/dL (3.4-5.0) L Albumin/Globulin Ratio 0.6 (1.0-1.7) L Lipase 127 U/L (73-393) Laboratory Tests 07/21/19 09:15 Laboratory Tests 07/21/19 09:15 EKG EKG [address] Jones sinus rhythm HR 78 no STEMI[] Radiology/Procedures Radiology/Procedures [] Course & Med Decision Making Course & Med Decision Making Pertinent Labs and Imaging studies reviewed. (See chart for details) This is a 64-year-old female patient presenting to the ED today complaining of rectal bleeding and vomiting blood that began this morning. Patient had a similar episode around July 01, 2019 EGD was done and she was noted to have a bleeding ulcer. Vitals on the ED temperature 97.9, heart rate and 5, respiration 20 room air, blood pressure 135/62, O2 sats 96%. CBC with a hemoglobin of 5.4, hematocrit 16.0-2 units of blood ordered CMP with potassium of 6.4, glucose 133, sodium 1, creatinine 10.6, BUN 66. Positive gastric content and fecal Hemoccult [address] Pride who accepted patient for admission [address] Kaushik BURTON, he requested we contact Thu AL and she can arrange with interventional radiology for upper GI series or bleeding scan 09-Thu AL was given the information When patient's potassium came back I contacted -concerning patient's potassium of 6.4, he requested patient to have dialysis before he can go for the GI scan Spoke with Thu AL again and informed her patient needs to be dialyzed before they can do a GI bleeding scan Dragon Disclaimer Dragon Disclaimer This electronic medical record was generated, in whole or in part, using a voice recognition dictation system. Departure Departure Impression: Primary Impression: Upper GI bleed Additional Impressions: Rectal bleeding Hyperkalemia ESRD (end stage renal disease) on dialysis Anemia Disposition: ADMITTED INPATIENT Condition: STABLE Referrals: NO PCP (PCP) Problem Qualifiers Additional Impressions: Anemia Anemia type: unspecified type Qualified Codes: D64.9 - Anemia, unspecified ANNA MORENO BINDERY MACHINE SETTER/SET UP OPERATOR Jul 21, 2019 08:36
--- NOTE | 2019-07-21 08:53 | EKG ---
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
[2019-07-21 09:11] LABS: GASTRIC OB PAT POSITIVE (NEG)
[2019-07-21 09:34] LABS: BASO % 1 % (0-3); EOS % 1 % (0-3); LYMPH # 0.8 x10^3/uL (1.0-4.8); LYMPH % 17 % (24-48); MEAN CORPUSCULAR HEMOGLOBIN 33 pg (25-35); MEAN CORPUSCULAR HGB CONC 34 g/dL (31-37); MEAN CORPUSCULAR VOLUME 98 fL (79-100); MONO # 0.5 x10^3/uL (0.0-1.1); MONO % 12 % (0-9); NEUT # 3.3 x10^3/uL (1.8-7.7); NEUT % 70 % (31-73); PLATELET COUNT 141 x10^3/uL (140-400); RED BLOOD COUNT 1.63 x10^6/uL (3.50-5.40); WHITE BLOOD COUNT 4.7 x10^3/uL (4.0-11.0)
[2019-07-21 09:39] LABS: HEMOGLOBIN 5.4 g/dL (12.0-15.5)
[2019-07-21 09:42] LABS: PROTHROMBIN TIME PATIENT 16.1 SEC (11.7-14.0)
[2019-07-21] MEDS ORDERED: ONDANSETRON PF 4 MG/2 ML VIAL. IV ONE (09:45)
[2019-07-21 09:50] LABS: ALBUMIN 2.2 g/dL (3.4-5.0); ALBUMIN/GLOBULIN RATIO 0.6 (1.0-1.7); CALCIUM 8.2 mg/dL (8.5-10.1); CREATININE 10.6 mg/dL (0.6-1.0); GFR 4.4; MAGNESIUM 1.8 mg/dL (1.8-2.4); TOTAL BILIRUBIN 0.4 mg/dL (0.2-1.0); TOTAL PROTEIN 6.2 g/dL (6.4-8.2)
[2019-07-21 09:52] LABS: POTASSIUM 6.4 mmol/L (3.5-5.1)
[2019-07-21 09:57] LABS: CREATINE KINASE 64 U/L (26-192)
[2019-07-21] MEDS: PANTOPRAZOLE SODIUM IV DRIP 80 MG in IV NORMAL SALINE 100ML 100 ML IV SCH ×2 (10:06→19:20)
--- NOTE | 2019-07-21 10:06 | RAD ---
Examination: CT ABDOMEN PELVIS WO CONTRAST History: Vomiting blood, bloody stools Comparison/Correlation: 07/01/2019 CT abdomen and pelvis without contrast Findings: Axial images of the abdomen and pelvis were obtained without contrast. Sagittal and coronal reformatted images were provided. The visualized bases are clear. Minimal perihepatic ascites is noted. Cholecystectomy is noted. Spleen is unremarkable. Liver is unremarkable. Surgical clips related artifact on the upper abdomen noted. Spleen is unremarkable. Pancreas is normal. Adrenal glands are normal. Right renal inferior pole 0.3 cm calyceal calculus is present. There are no radiopaque left collecting system calculi. Urinary bladder is mostly decompressed. No enlarged abdominal or pelvic lymph nodes. No bowel obstruction or extraluminal gas. No ascites or pelvic fluid. Anasarca suggested. Hysterectomy noted. Destructive findings of the right symphysis pubis noted similar to previous exam. Right inferior pubic ramus fracture is noted with callus formation in the interval. Slightly displaced appearance in the interval suggested. Multilevel vacuum phenomenon of the disc spaces of the lumbar spine noted. Spinal stenosis at L4-5. Impression: Minimal perihepatic ascites. No bowel obstruction or extraluminal gas. Nonobstructive right renal calculus. Obstructive findings involving the right symphysis pubis again seen. Right inferior pubic ramus fracture noted. PQRS Compliance Statement: One or more of the following individualized dose reduction techniques were utilized for this examination: 1. Automated exposure control 2. Adjustment of the mA and/or kV according to patient size 3. Use of iterative reconstruction technique Electronically signed by: Roger Solis MD (07/21/2019 10:03 AM) [facility]
[2019-07-21 10:07] LABS: PLT ESTIMATE ADEQUATE (ADEQUATE)
[2019-07-21 10:08] LABS: ANISOCYTOSIS MOD; POLYCHROMASIA PRESENT
--- NOTE | 2019-07-21 10:23 | PDOC2 ---
GI CONSULT Reason For Consult: GI bleed HPI: HPI: 64 y/o female well known to us. Have seen several times in the past for diarrhea, n/v, abd pain, hematemesis, and melena - often after missing dialysis. Earlier this month attempted endoscopic treatment for oozing prepyloric ulcer - ultimately had embolization of GDA and PDA w/ IR. Called by ER ANIMAL DAMAGE CONTROL AGENT Nessa this morning - reports GI bleed and possible need for IR involvement. Pt says she vomited red and black blood and started passing dark red blood per rectum at 5:00 a.m. Chronic anemia, Hgb 5.4 today, gastric and stool occult positive. Skipped dialysis on Saturday for back pain and nausea. BUN 66, Cr 10.6, K 6.4. H/o GERD - issues w/ compliance in the past, now says she's been taking pantoprazole QD - "I take whatever they give me." EGD 04/2016 (for melena/anemia): Grade 1 esophagitis, small MW tear w/o meaningful bleeding, alcoholic gastritis. EGD 10/2018 (for hematemesis/melena): desquamating changes 25-35cm due to emesis, friability and erosions at 35cm/GEJ c/w with Grade B reflux esophagitis, no varices or MW tear, no gastric varices, no hiatal hernia, diffuse nodularity throughout stomach, 1 cm ulcer posterior wall mid-antrum with hematin staining - no clot, visible vessel, or active bleeding (and negative for H. pylori), non- specific erythema in duodenal bulb. EGD 01/2019 (for hematemesis/melena): partly healed esophagitis distally, no varices, 8-10mm ulcer posterior wall prepyloric area similar to October - no signs of recent bleeding and no varices, patchy erythema in duodenal bulb, second portion normal. Gastrin level very minimally elevated - suspected non- compliance w/ PPI. I wrote her a prescription for pantoprazole 40mg QD w/ refills. EGD 07/01/19: Grade A reflux/no esophageal varices or M-W, blood upper body/part of fundus, no gastric varices, prepyloric ulcer - posterior wall with clot/ooze from beneath, blood in duodenal lumen. Placed clip near ulcer to tamika for IR. Epi injected around and into ulcer, maybe slowed some. Attempted BICAP, but only tangentially - continued ooze. Same day visceral angio w/ IR: coil embolization of the gastroduodenal artery and pancreaticoduodenal artery. Last colonoscopy reportedly normal <10 years ago @ [facility]. H/o cirrhosis - heavy alcohol use (?still drinking) and Hep C (genotype 1a - possibly failed treatment in the past). H/o C Diff. S/p cholecystectomy 02/2018 (Dr. Rowe). PMH: PMH: HTN, HLD, ESRD on HD, GERD, , C Diff, cirrhosis, RA, DM, hyperparathyroidism, ?pancreatitis partial hysterectomy (lap assisted/vaginal), cholecystectomy FH: Family History: No pertinent hx, DM Social History: Smoke: No ALCOHOL: other (ehavy in the past - ?still) Drugs: None ROS: Difficult to obtain. Vitals: Vitals: Vital Signs Date Time Temp Pulse Resp B/P (MAP) Pulse Ox O2 Delivery O2 Flow Rate FiO2 07/21/19 10:09 16 97 Room Air 07/21/19 09:40 73 131/60 (83) 07/21/19 08:22 97.9 97.9 Labs: Labs: Laboratory Tests Test 07/21/19 08:55 07/21/19 09:15 Gastric Fluid Occult Blood Positive (NEG) White Blood Count 4.7 x10^3/uL (4.0-11.0) Red Blood Count 1.63 x10^6/uL (3.50-5.40) Hemoglobin 5.4 g/dL (12.0-15.5) Hematocrit 16.0 % (36.0-47.0) Mean Corpuscular Volume 98 fL (79-100) Mean Corpuscular Hemoglobin 33 pg (25-35) Mean Corpuscular Hemoglobin Concent 34 g/dL (31-37) Red Cell Distribution Width 21.0 % (11.5-14.5) Platelet Count 141 x10^3/uL (140-400) Neutrophils (%) (Auto) 70 % (31-73) Lymphocytes (%) (Auto) 17 % (24-48) Monocytes (%) (Auto) 12 % (0-9) Eosinophils (%) (Auto) 1 % (0-3) Basophils (%) (Auto) 1 % (0-3) Neutrophils # (Auto) 3.3 x10^3/uL (1.8-7.7) Lymphocytes # (Auto) 0.8 x10^3/uL (1.0-4.8) Monocytes # (Auto) 0.5 x10^3/uL (0.0-1.1) Eosinophils # (Auto) 0.0 x10^3/uL (0.0-0.7) Basophils # (Auto) 0.0 x10^3/uL (0.0-0.2) Platelet Estimate Adequate (ADEQUATE) Polychromasia Present Anisocytosis Mod Macrocytosis Slight Prothrombin Time 16.1 SEC (11.7-14.0) Prothromb Time International Ratio 1.3 (0.8-1.1) Activated Partial Thromboplast Time 32 SEC (24-38) Sodium Level 134 mmol/L (136-145) Potassium Level 6.4 mmol/L (3.5-5.1) Chloride Level 94 mmol/L (98-107) Carbon Dioxide Level 29 mmol/L (21-32) Anion Gap 11 (6-14) Blood Urea Nitrogen 66 mg/dL (7-20) Creatinine 10.6 mg/dL (0.6-1.0) Estimated GFR (Cockcroft-Gault) 4.4 BUN/Creatinine Ratio 6 (6-20) Glucose Level 133 mg/dL (70-99) Calcium Level 8.2 mg/dL (8.5-10.1) Magnesium Level 1.8 mg/dL (1.8-2.4) Total Bilirubin 0.4 mg/dL (0.2-1.0) Aspartate Amino Transf (AST/SGOT) 33 U/L (15-37) Alanine Aminotransferase (ALT/SGPT) 14 U/L (14-59) Alkaline Phosphatase 200 U/L (46-116) Creatine Kinase 64 U/L (26-192) Creatine Kinase MB (Mass) 1.9 ng/mL (0.0-3.6) Creatine Kinase MB Relative Index % (0-4) Total Protein 6.2 g/dL (6.4-8.2) Albumin 2.2 g/dL (3.4-5.0) Albumin/Globulin Ratio 0.6 (1.0-1.7) Lipase 127 U/L (73-393) Allergies: Coded Allergies: I S O L A T I O N *CONTACT* (Verified Allergy, Unknown, 07/01/19) chronic C.diff acetaminophen (Verified Adverse Reaction, Intermediate, Nausea and Vomiting, 07/01/19) Medications: Current Medications Medications (Trade) Dose Ordered Sig/Kimberly Route PRN Reason Start Time Stop Time Status Last Admin Dose Admin Morphine Sulfate (Morphine Sulfate) 2 mg PRN Q15MIN PRN IV/SQ PAIN GREATER THAN 3/10 07/21/19 08:30 07/22/19 08:29 07/21/19 09:46 Pantoprazole Sodium (PROTONIX VIAL for IV PUSH) 40 mg 1X ONCE IVP 07/21/19 08:30 07/21/19 08:32 DC 07/21/19 09:18 Ondansetron HCl (Zofran) 4 mg 1X ONCE IV 07/21/19 09:45 07/21/19 09:46 DC 07/21/19 09:46 Pantoprazole Sodium 80 mg/ Sodium Chloride 100 ml @ 10 mls/hr Q10H IV 07/21/19 09:45 07/21/19 10:06 Imaging: Imaging: CT A/P 07/21 Impression: Minimal perihepatic ascites. No bowel obstruction or extraluminal gas. Nonobstructive right renal calculus. Obstructive findings involving the right symphysis pubis again seen. Right inferior pubic ramus fracture noted. PE: GEN: uncomfortable - staff cleaning her, getting her off of bed pa HEENT: Atraumatic, PERRLA LUNGS: room air HEART: RRR ABD: BS+, some distention, diffusely tender SKIN: No rashes, no jaundice NEURO/PSYCH: A & O 3, moaning, tearful A/P: A/P: Hematemesis, hematochezia/melena H/o prepyloric ulcer s/p endotherapy and IR embolization 07/01/19 Chronic anemia - Hgb worse this time ESRD on HD w/ non-compliance, hypokalemia GERD Cirrhosis - alcohol, Hep C CRC screen - reportedly UTD (<10 years @ [facility]) H/o C Diff S/p cholecystectomy -- D/w Dr. Faulkner and Haylie in IR who spoke w/ Dr. Garcia - no IR recs considering previous embolization of GDA and PDA - recommend urgent EGD. Initial plans for for bleeding scan STAT, admit to ICU, then EGD. Received another call from ER - Dr. Mercado recommends dialysis first w/ hyperkalemia so will hold on bleeding scan and EGD for now - tentatively plan for EGD around 4:00 p.m. today. D/w ICU nurses and GI lab. Agree w/ PPI. Has transfusion orders. IRIS SZYMANSKI Jul 21, 2019 10:23
[2019-07-21 10:39] LABS: FECAL OB PT POSITIVE (NEG)
--- NOTE | 2019-07-21 10:47 | HP ---
ADMIT DATE: 07/21/2019 CHIEF COMPLAINT: Hematemesis. HISTORY OF PRESENT ILLNESS: The patient is a pleasant elderly female who presented with hematemesis. It has been occurring for several hours. She also has bloody stools. When she got to the ER, her hemoglobin was 5.4. She also has end-stage renal disease and she is on dialysis on Saturday, and Saturday. I discussed the case with ER physician. We are going to admit the patient and consult GI and transfuse several units of blood. PAST MEDICAL HISTORY: End-stage renal disease, on dialysis; diabetes; hypertension; hyperlipidemia; cholecystectomy; hysterectomy; tonsillectomy; right knee surgery; right chest shunt dialysis graft; right femur repair with rods. ALLERGIES: TYLENOL. FAMILY HISTORY: Coronary disease. SOCIAL HISTORY: She does not drink, smoke or take drugs. MEDICATIONS: Reviewed. Please refer to the MRAD. REVIEW OF SYSTEMS: GENERAL: No history of weight change, weakness or fevers. SKIN: No bruising, hair changes or rashes. EYES: No blurred, double or loss of vision. NOSE AND THROAT: No history of nosebleeds, hoarseness or sore throat. HEART: No history of palpitations, chest pain or shortness of breath on exertion. LUNGS: Denies cough, hemoptysis, wheezing or shortness of breath. GASTROINTESTINAL: She complains of bloody stool and hematemesis. GENITOURINARY: No history of frequency, urgency, hesitancy or nocturia. NEUROLOGIC: Denies history of numbness, tingling, tremor or weakness. PSYCHIATRIC: No history of panic, anxiety or depression. ENDOCRINE: No history of heat or cold intolerance, polyuria or polydipsia. EXTREMITIES: Denies muscle weakness, joint pain, pain on walking or stiffness. PHYSICAL EXAMINATION: VITALS: Within normal limits and are stable. GENERAL: No apparent distress. Alert and oriented. HEENT: Head is normocephalic, atraumatic, pupils were equally round and reactive to light and accommodation. NECK: Supple, no JVD, no thyromegaly was noted. LUNGS: Clear to auscultation in all lung chaudhry without rhonchi or wheezing. HEART: RRR, S1, S2 present. Peripheral pulses intact, no obvious murmurs were noted. ABDOMEN: Soft, nontender. Positive bowel sounds no organomegaly, normal bowel sounds. EXTREMITIES: Without any cyanosis, clubbing, or edema. Pedal pulses intact, Homans sign is negative. NEUROLOGIC: Normal speech, normal tone. A & O x3, moves all extremities, no obvious focal deficits. PSYCHIATRIC: Normal affect, normal mood. Stable. SKIN: No ulcerations or rashes, good skin turgor, no jaundice. VASCULAR: Good capillary refill, neurovascular bundle appears to be intact. LABORATORY DATA: Hemoglobin is 5.4. Electrolytes: Sodium 144, potassium 6.4, chloride 94, bicarbonate 29, BUN 66, creatinine 10.6, glucose 132. Albumin is low at 2.2. ASSESSMENT AND PLAN: Gastrointestinal bleed with incidental finding of hyperkalemia, severe azotemia, chronic renal failure, on dialysis and malnutrition. The patient is being admitted. We will transfuse 2 units of packed red blood cells. Consult Gastroenterology. Consult Nephrology. Deep venous thrombosis prophylaxis. Home medications. Full code. PROGNOSIS: Guarded. VIKAS GAMEZ DO DR: CAMMIE/danial JOB#: [id number] / [id number]
[2019-07-21] MEDS ORDERED: HEPARIN for NUC MED 500 UNIT/5 ML DISP.SYRIN. IV ONE (11:00)
[2019-07-21] MEDS ORDERED: IV NORMAL SALINE 1000ML BAG 1,000 ML IV PRN (11:47)
[2019-07-21] MEDS ORDERED: DIALYSIS PATIENT. MC PRN ×2 (12:00)
[2019-07-21] MEDS ORDERED: ONDANSETRON PF 4 MG/2 ML VIAL. IV PRN ×2 (12:15)
[2019-07-21] MEDS: MORPHINE SULFATE 2 MG/ML VIAL. IV PRN ×2 (12:19→20:00)
--- NOTE | 2019-07-21 13:06 | PDOC2 ---
CONSULT Date of Consult Date of Consult DATE: 07/21/19 TIME: 13:02 Reason for Consult Reason for Consult: HIGH K AND ESRD Referring Physician Referring Physician: VERA Identification/Chief Complaint Chief Complaint THROWING UP BLOOD Source Source: Chart review, Patient History of Present Illness Reason for Visit: THIS IS A 64 YR OLD WITH HX OF THROWING UP BLOOD. HAS HX OF . HGB OF 5.4 AND K OF 6.4. SHE HAS ESRD AND IS ON HD ON TTS. ESRD IS DUE TO HTN. HEMODYNAMICALLY STABLE. LABS ARE C/W HER ESRD STATUS. SHE HAS HAD PROBLEMS WITH IN THE PAST. SOME SOB ALSO REPORTED. SHE HAS AN AVF FOR HD Past Medical History Cardiovascular: HTN, Hyperlipidemia Pulmonary: No pertinent hx GI: Constipation, GERD, GI bleed Heme/Onc: Anemia NOS Hepatobiliary: No pertinent hx, Hep A/B/C Psych: Addictions Rheumatologic: Rheumatoid arthritis Infectious disease: No pertinent hx Renal/: Chronic renal failure, Hematuria Endocrine: Diabetes, Hyperparathyroidism Past Surgical History Past Surgical History: Cholecystectomy, Tonsillectomy, Hysterectomy, Other Family History Family History: Alcohol Abuse, High Cholestrol, Hypertension, Family History Unknown Social History No ALCOHOL: other (ehavy in the past - ?still) Drugs: None Current Problem List Problem List Problems Medical Problems: (1) Anemia Status: Chronic (2) ESRD (end stage renal disease) on dialysis Status: Chronic (3) Rectal bleeding Status: Acute (4) Upper GI bleed Status: Acute Current Medications Current Medications Current Medications Morphine Sulfate (Morphine Sulfate) 2 mg PRN Q15MIN PRN IV/SQ PAIN GREATER THAN 3/10 Last administered on 07/21/19at 09:46; Start 07/21/19 at 08:30; Stop 07/21/19 at 12:07; Status DC Pantoprazole Sodium (PROTONIX VIAL for IV PUSH) 40 mg 1X ONCE IVP Last administered on 07/21/19at 09:18; Start 07/21/19 at 08:30; Stop 07/21/19 at 08:32; Status DC Ondansetron HCl (Zofran) 4 mg 1X ONCE IV Last administered on 07/21/19at 09:46; Start 07/21/19 at 09:45; Stop 07/21/19 at 09:46; Status DC Pantoprazole Sodium 80 mg/ Sodium Chloride 100 ml @ 10 mls/hr Q10H IV Last a dministered on 07/21/19at 10:06; Start 07/21/19 at 09:45 Heparin Sodium (Porcine) (HEPARIN for NUC MED) 100 unit 1X ONCE IV ; Start 07/21/19 at 11:00; Stop 07/21/19 at 11:01; Status DC Sodium Chloride 1,000 ml @ 1,000 mls/hr Q1H PRN IV hypotension; Start 07/21/19 at 11:47; Stop 07/21/19 at 17:46 Info (PHARMACY MONITORING -- do not chart) 1 each PRN DAILY PRN MC SEE COMMENTS; Start 07/21/19 at 12:00; Stop 07/21/19 at 12:12; Status DC Info (PHARMACY MONITORING -- do not chart) 1 each PRN DAILY PRN MC SEE COMMENTS; Start 07/21/19 at 12:00 Morphine Sulfate (Morphine Sulfate) 2 mg PRN Q2HR PRN IV PAIN Last administered on 07/21/19at 12:19; Start 07/21/19 at 12:15 Ondansetron HCl (Zofran) 4 mg PRN Q6HRS PRN IV NAUSEA/VOMITING; Start 07/21/19 at 12:15 Ondansetron HCl (Zofran) 4 mg PRN Q8HRS PRN IV NAUSEA/VOMITING; Start 07/21/19 at 12:15; Stop 07/22/19 at 12:14 Active Scripts Active Hydrocodone-Apap 5-325 (Hydrocodone Bit/Acetaminophen) 1 Tab Tablet 1 Tab PO PRN Q6HRS PRN 6 Days Pantoprazole Sodium (Pantoprazole Sodium) 40 Mg Tablet.dr 40 Mg PO DAILYAC 30 Days Culturelle (Lactobacillus Rhamnosus Gg) 1 Each Cap.sprink 1 Cap PO BID 14 Days Reported Nephro-Edward Tablet (Folic Acid/Vitamin B Comp W-C) 0.8 Mg Tablet 1 Tab PO DAILY Calcium Acetate 667 Mg Tablet 667 Mg PO TIDWMEALS Carvedilol 25 Mg Tablet 25 Mg PO BID Folic Acid 1 Mg Tablet 1 Mg PO DAILY Miralax (Polyethylene Glycol 3350) 17 Gm Powd.pack 1 Packet PO PRN DAILY PRN Allergies Allergies: Coded Allergies: I S O L A T I O N *CONTACT* (Verified Allergy, Unknown, 07/01/19) chronic C.diff acetaminophen (Verified Adverse Reaction, Intermediate, Nausea and Vomiting, 07/01/19) ROS General: YES: Fatigue, Malaise, Appetite HEENT: YES: Heacaches Respiratory: YES: Cough, Shortness of breath Cardiovascular: yes Orthopnea Gastrointestinal: Yes Nausea, Yes Vomiting Genitourinary: YES Other (ANURIA) Musculoskeletal: Yes Muscular Weakness Neurological: Yes Weakness Skin: Yes Dry Skin Physical Exam Physical Exam AV ACCESS HAS GOOD THRILL AND BRUIT General: Alert, Oriented X3, Cooperative, No acute distress HEENT: Atraumatic, PERRLA, EOMI Lungs: Clear to auscultation Heart: Regular rate, Normal S1, Normal S2 Abdomen: Normal bowel sounds, No tenderness Extremities: No clubbing Skin: No rashes Neuro: Normal speech, Sensation intact Psych/Mental Status: Mental status NL MUSCULOSKELETAL: No joint tenderness, No deformity, No swelling Vitals VITALS Vital Signs Date Time Temp Pulse Resp B/P (MAP) Pulse Ox O2 Delivery O2 Flow Rate FiO2 07/21/19 12:47 98.5 70 18 145/60 98.5 07/21/19 12:19 100 Room Air 07/21/19 11:38 98.0 Labs Labs Laboratory Tests Test 07/21/19 08:55 07/21/19 09:15 07/21/19 10:20 Gastric Fluid Occult Blood Positive (NEG) White Blood Count 4.7 x10^3/uL (4.0-11.0) Red Blood Count 1.63 x10^6/uL (3.50-5.40) Hemoglobin 5.4 g/dL (12.0-15.5) Hematocrit 16.0 % (36.0-47.0) Mean Corpuscular Volume 98 fL (79-100) Mean Corpuscular Hemoglobin 33 pg (25-35) Mean Corpuscular Hemoglobin Concent 34 g/dL (31-37) Red Cell Distribution Width 21.0 % (11.5-14.5) Platelet Count 141 x10^3/uL (140-400) Neutrophils (%) (Auto) 70 % (31-73) Lymphocytes (%) (Auto) 17 % (24-48) Monocytes (%) (Auto) 12 % (0-9) Eosinophils (%) (Auto) 1 % (0-3) Basophils (%) (Auto) 1 % (0-3) Neutrophils # (Auto) 3.3 x10^3/uL (1.8-7.7) Lymphocytes # (Auto) 0.8 x10^3/uL (1.0-4.8) Monocytes # (Auto) 0.5 x10^3/uL (0.0-1.1) Eosinophils # (Auto) 0.0 x10^3/uL (0.0-0.7) Basophils # (Auto) 0.0 x10^3/uL (0.0-0.2) Platelet Estimate Adequate (ADEQUATE) Polychromasia Present Anisocytosis Mod Macrocytosis Slight Prothrombin Time 16.1 SEC (11.7-14.0) Prothromb Time International Ratio 1.3 (0.8-1.1) Activated Partial Thromboplast Time 32 SEC (24-38) Sodium Level 134 mmol/L (136-145) Potassium Level 6.4 mmol/L (3.5-5.1) Chloride Level 94 mmol/L (98-107) Carbon Dioxide Level 29 mmol/L (21-32) Anion Gap 11 (6-14) Blood Urea Nitrogen 66 mg/dL (7-20) Creatinine 10.6 mg/dL (0.6-1.0) Estimated GFR (Cockcroft-Gault) 4.4 BUN/Creatinine Ratio 6 (6-20) Glucose Level 133 mg/dL (70-99) Calcium Level 8.2 mg/dL (8.5-10.1) Magnesium Level 1.8 mg/dL (1.8-2.4) Total Bilirubin 0.4 mg/dL (0.2-1.0) Aspartate Amino Transf (AST/SGOT) 33 U/L (15-37) Alanine Aminotransferase (ALT/SGPT) 14 U/L (14-59) Alkaline Phosphatase 200 U/L (46-116) Creatine Kinase 64 U/L (26-192) Creatine Kinase MB (Mass) 1.9 ng/mL (0.0-3.6) Creatine Kinase MB Relative Index % (0-4) Total Protein 6.2 g/dL (6.4-8.2) Albumin 2.2 g/dL (3.4-5.0) Albumin/Globulin Ratio 0.6 (1.0-1.7) Lipase 127 U/L (73-393) Stool Occult Blood Positive (NEG) Laboratory Tests Test 07/21/19 08:55 07/21/19 09:15 07/21/19 10:20 Gastric Fluid Occult Blood Positive (NEG) White Blood Count 4.7 x10^3/uL (4.0-11.0) Red Blood Count 1.63 x10^6/uL (3.50-5.40) Hemoglobin 5.4 g/dL (12.0-15.5) Hematocrit 16.0 % (36.0-47.0) Mean Corpuscular Volume 98 fL (79-100) Mean Corpuscular Hemoglobin 33 pg (25-35) Mean Corpuscular Hemoglobin Concent 34 g/dL (31-37) Red Cell Distribution Width 21.0 % (11.5-14.5) Platelet Count 141 x10^3/uL (140-400) Neutrophils (%) (Auto) 70 % (31-73) Lymphocytes (%) (Auto) 17 % (24-48) Monocytes (%) (Auto) 12 % (0-9) Eosinophils (%) (Auto) 1 % (0-3) Basophils (%) (Auto) 1 % (0-3) Neutrophils # (Auto) 3.3 x10^3/uL (1.8-7.7) Lymphocytes # (Auto) 0.8 x10^3/uL (1.0-4.8) Monocytes # (Auto) 0.5 x10^3/uL (0.0-1.1) Eosinophils # (Auto) 0.0 x10^3/uL (0.0-0.7) Basophils # (Auto) 0.0 x10^3/uL (0.0-0.2) Platelet Estimate Adequate (ADEQUATE) Polychromasia Present Anisocytosis Mod Macrocytosis Slight Prothrombin Time 16.1 SEC (11.7-14.0) Prothromb Time International Ratio 1.3 (0.8-1.1) Activated Partial Thromboplast Time 32 SEC (24-38) Sodium Level 134 mmol/L (136-145) Potassium Level 6.4 mmol/L (3.5-5.1) Chloride Level 94 mmol/L (98-107) Carbon Dioxide Level 29 mmol/L (21-32) Anion Gap 11 (6-14) Blood Urea Nitrogen 66 mg/dL (7-20) Creatinine 10.6 mg/dL (0.6-1.0) Estimated GFR (Cockcroft-Gault) 4.4 BUN/Creatinine Ratio 6 (6-20) Glucose Level 133 mg/dL (70-99) Calcium Level 8.2 mg/dL (8.5-10.1) Magnesium Level 1.8 mg/dL (1.8-2.4) Total Bilirubin 0.4 mg/dL (0.2-1.0) Aspartate Amino Transf (AST/SGOT) 33 U/L (15-37) Alanine Aminotransferase (ALT/SGPT) 14 U/L (14-59) Alkaline Phosphatase 200 U/L (46-116) Creatine Kinase 64 U/L (26-192) Creatine Kinase MB (Mass) 1.9 ng/mL (0.0-3.6) Creatine Kinase MB Relative Index % (0-4) Total Protein 6.2 g/dL (6.4-8.2) Albumin 2.2 g/dL (3.4-5.0) Albumin/Globulin Ratio 0.6 (1.0-1.7) Lipase 127 U/L (73-393) Stool Occult Blood Positive (NEG) Assessment/Plan Assessment/Plan IMP HYPERKALEMIA ANEMIA WITH GI BLEED ESRD HTN PLAN ARANESP HD TODAY UF TO DW PRBC GI EVAL AND TX HAVE D/W GI WILL FOLLOW LINNEA SHULTZ MD Jul 21, 2019 13:06
[2019-07-21 15:49] LABS: HEMOGLOBIN 6.8 g/dL (12.0-15.5)
[2019-07-21 15:50] LABS: HEMATOCRIT 19.3 % (36.0-47.0)
[2019-07-21] MEDS: IV RINGERS,LACTATED 1000ML 1,000 ML IV SCH (16:45)
[2019-07-21] MEDS ORDERED: MIDAZOLAM HCL/PF 5 MG/5 ML VIAL. ONE (17:14)
[2019-07-21] MEDS ORDERED: fentaNYL PF VIAL 100 MCG/2 ML VIAL ONE (17:14)
[2019-07-21] MEDS ORDERED: fentaNYL PF VIAL 100 MCG/2 ML VIAL IV ONE ×2 (17:35→17:38)
[2019-07-21] MEDS ORDERED: MIDAZOLAM HCL/PF 5 MG/5 ML VIAL. IV ONE ×2 (17:35→17:37)
--- NOTE | 2019-07-21 17:56 | PDOC4 ---
PROCEDURE Procedure EGD Indication: hematemesis/melena Meds: Fentanyl 50mcg, Versed 2mg IV Findings: E--Normal. No varices nor M-W tear. G--Old to fresher blood from proximal to distal. Oozing of blood from prepyloric area near site of prior ulcer. Unable to wash clean enough to visualize discrete site of bleeding. Seemed to be a hole breaching the mucosa at least, but with blood unable to clearly see. D--Blood from bulb to second portion, but no active bleeding site. Obdulio. well. \\ IMP: Bleeding again from prepyloric area; unable to visualize exact nature of lesion. Possible old, confined perf? To account for the "hole"? REC: NPO Continue PPI gtt, CT w/o contrast re: extraluminal air? Will discuss with IR and obtain surgical opinion. Monitor hemoglobin and transfuse prn. Has had prior not too abnormal gastrin, so not Z-E syndrome. HAYDER MARLOW MD Jul 21, 2019 17:56
[2019-07-21] MEDS ORDERED: IV DEXTROSE 5% 250 ML BAG. IV PRN (18:45)
--- NOTE | 2019-07-21 20:04 | PDOC2 ---
CONSULT Date of Consult Date of Consult DATE: 07/21/19 TIME: 19:58 Reason for Consult Reason for Consult: UGI bleed Referring Physician Referring Physician: Dr. Faulkner Identification/Chief Complaint Chief Complaint hematemesis Source Source: Chart review, Patient History of Present Illness Reason for Visit: 64 yo F admitted with upper GI bleed. Multiple recent episodes. Previously requiring IR embolization and multiple scopes. Noted to have blood in emesis and stool. Pt notes 2 shots of Etoh on 07/19 during game prior to problems. Currently reports doing well and denies pain except with movement. Past Medical History Cardiovascular: HTN, Hyperlipidemia Pulmonary: No pertinent hx GI: Constipation, GERD, GI bleed Heme/Onc: Anemia NOS Hepatobiliary: No pertinent hx, Hep A/B/C Psych: Addictions Rheumatologic: Rheumatoid arthritis Infectious disease: No pertinent hx Renal/: Chronic renal failure, Hematuria Endocrine: Diabetes, Hyperparathyroidism Past Surgical History Past Surgical History: Cholecystectomy, Tonsillectomy, Hysterectomy, Other Family History Family History: Alcohol Abuse, High Cholestrol, Hypertension, Family History Unknown Social History No ALCOHOL: heavy Drugs: None Current Problem List Problem List Problems Medical Problems: (1) Anemia Status: Chronic (2) ESRD (end stage renal disease) on dialysis Status: Chronic (3) Rectal bleeding Status: Acute (4) Upper GI bleed Status: Acute Current Medications Current Medications Current Medications Morphine Sulfate (Morphine Sulfate) 2 mg PRN Q15MIN PRN IV/SQ PAIN GREATER THAN 3/10 Last administered on 07/21/19at 09:46; Start 07/21/19 at 08:30; Stop 07/21/19 at 12:07; Status DC Pantoprazole Sodium (PROTONIX VIAL for IV PUSH) 40 mg 1X ONCE IVP Last administered on 07/21/19at 09:18; Start 07/21/19 at 08:30; Stop 07/21/19 at 08:32; Status DC Ondansetron HCl (Zofran) 4 mg 1X ONCE IV Last administered on 07/21/19at 09:46; Start 07/21/19 at 09:45; Stop 07/21/19 at 09:46; Status DC Pantoprazole Sodium 80 mg/ Sodium Chloride 100 ml @ 10 mls/hr Q10H IV Last administered on 07/21/19at 19:20; Start 07/21/19 at 09:45 Heparin Sodium (Porcine) (HEPARIN for NUC MED) 100 unit 1X ONCE IV ; Start 07/21/19 at 11:00; Stop 07/21/19 at 11:01; Status DC Sodium Chloride 1,000 ml @ 1,000 mls/hr Q1H PRN IV hypotension; Start 07/21/19 at 11:47; Stop 07/21/19 at 17:46; Status DC Info (PHARMACY MONITORING -- do not chart) 1 each PRN DAILY PRN MC SEE COMMENTS; Start 07/21/19 at 12:00; Stop 07/21/19 at 12:12; Status DC Info (PHARMACY MONITORING -- do not chart) 1 each PRN DAILY PRN MC SEE COMMENTS; Start 07/21/19 at 12:00 Morphine Sulfate (Morphine Sulfate) 2 mg PRN Q2HR PRN IV PAIN Last administered on 07/21/19at 12:19; Start 07/21/19 at 12:15 Ondansetron HCl (Zofran) 4 mg PRN Q6HRS PRN IV NAUSEA/VOMITING; Start 07/21/19 at 12:15 Ondansetron HCl (Zofran) 4 mg PRN Q8HRS PRN IV NAUSEA/VOMITING; Start 07/21/19 at 12:15; Stop 07/22/19 at 12:14 Darbepoetin [place] (ARANESP for DIALYSIS PTS) 60 mcg WEEKLYHS SQ ; Start 07/21/19 at 21:00 Ringer's Solution 1,000 ml @ 100 mls/hr Q10H IV ; Start 07/21/19 at 16:45 Midazolam HCl (Versed) 5 mg STK-MED ONCE .ROUTE ; Start 07/21/19 at 17:14; Stop 07/21/19 at 17:14; Status DC Fentanyl Citrate (Fentanyl 2ml Vial) 100 mcg STK-MED ONCE .ROUTE ; Start 07/21/19 at 17:14; Stop 07/21/19 at 17:14; Status DC Midazolam HCl (Versed) 5 mg STK-MED ONCE IV Last administered on 07/21/19at 17:37; Start 07/21/19 at 17:35; Stop 07/21/19 at 17:37; Status DC Fentanyl Citrate (Fentanyl 2ml Vial) 100 mcg STK-MED ONCE IV Last administered on 07/21/19at 17:37; Start 07/21/19 at 17:35; Stop 07/21/19 at 17:37; Status DC Midazolam HCl (Versed) 5 mg STK-MED ONCE IV Last administered on 07/21/19at 17:39; Start 07/21/19 at 17:37; Stop 07/21/19 at 17:39; Status DC Fentanyl Citrate (Fentanyl 2ml Vial) 100 mcg STK-MED ONCE IV Last administered on 07/21/19at 17:40; Start 07/21/19 at 17:38; Stop 07/21/19 at 17:40; Status DC Dextrose (Dextrose 50%-Water Syringe) 12.5 gm PRN Q15MIN PRN IV SEE COMMENTS; Start 07/21/19 at 18:45 Dextrose 250 ml PRN Q15MIN PRN IV SEE COMMENTS; Start 07/21/19 at 18:45 Active Scripts Active Hydrocodone-Apap 5-325 (Hydrocodone Bit/Acetaminophen) 1 Tab Tablet 1 Tab PO PRN Q6HRS PRN 6 Days Pantoprazole Sodium (Pantoprazole Sodium) 40 Mg Tablet.dr 40 Mg PO DAILYAC 30 Days Culturelle (Lactobacillus Rhamnosus Gg) 1 Each Cap.sprink 1 Cap PO BID 14 Days Reported Nephro-Edward Tablet (Folic Acid/Vitamin B Comp W-C) 0.8 Mg Tablet 1 Tab PO DAILY Calcium Acetate 667 Mg Tablet 667 Mg PO TIDWMEALS Carvedilol 25 Mg Tablet 25 Mg PO BID Folic Acid 1 Mg Tablet 1 Mg PO DAILY Miralax (Polyethylene Glycol 3350) 17 Gm Powd.pack 1 Packet PO PRN DAILY PRN Allergies Allergies: Coded Allergies: I S O L A T I O N *CONTACT* (Verified Allergy, Unknown, 07/21/19) chronic C.diff acetaminophen (Verified Adverse Reaction, Intermediate, Nausea and Vomiting, 07/21/19) ROS Gastrointestinal: Yes Vomiting Physical Exam General: Alert, Oriented X3, Cooperative, No acute distress HEENT: EOMI Lungs: Normal air movement Abdomen: Soft, No tenderness Extremities: No clubbing, No cyanosis Skin: No rashes, No breakdown Neuro: Normal speech, Sensation intact Psych/Mental Status: Mental status NL, Mood NL Vitals VITALS Vital Signs Date Time Temp Pulse Resp B/P (MAP) Pulse Ox O2 Delivery O2 Flow Rate FiO2 07/21/19 19:00 87 20 138/57 (84) 100 Nasal Cannula 2.0 07/21/19 18:02 99.1 99.1 Labs Labs Laboratory Tests Test 07/21/19 08:55 07/21/19 09:15 07/21/19 10:20 07/21/19 15:32 Gastric Fluid Occult Blood Positive (NEG) White Blood Count 4.7 x10^3/uL (4.0-11.0) Red Blood Count 1.63 x10^6/uL (3.50-5.40) Hemoglobin 5.4 g/dL (12.0-15.5) 6.8 g/dL (12.0-15.5) Hematocrit 16.0 % (36.0-47.0) 19.3 % (36.0-47.0) Mean Corpuscular Volume 98 fL (79-100) Mean Corpuscular Hemoglobin 33 pg (25-35) Mean Corpuscular Hemoglobin Concent 34 g/dL (31-37) 35 g/dL (31-37) Red Cell Distribution Width 21.0 % (11.5-14.5) Platelet Count 141 x10^3/uL (140-400) Neutrophils (%) (Auto) 70 % (31-73) Lymphocytes (%) (Auto) 17 % (24-48) Monocytes (%) (Auto) 12 % (0-9) Eosinophils (%) (Auto) 1 % (0-3) Basophils (%) (Auto) 1 % (0-3) Neutrophils # (Auto) 3.3 x10^3/uL (1.8-7.7) Lymphocytes # (Auto) 0.8 x10^3/uL (1.0-4.8) Monocytes # (Auto) 0.5 x10^3/uL (0.0-1.1) Eosinophils # (Auto) 0.0 x10^3/uL (0.0-0.7) Basophils # (Auto) 0.0 x10^3/uL (0.0-0.2) Platelet Estimate Adequate (ADEQUATE) Polychromasia Present Anisocytosis Mod Macrocytosis Slight Prothrombin Time 16.1 SEC (11.7-14.0) Prothromb Time International Ratio 1.3 (0.8-1.1) Activated Partial Thromboplast Time 32 SEC (24-38) Sodium Level 134 mmol/L (136-145) Potassium Level 6.4 mmol/L (3.5-5.1) Chloride Level 94 mmol/L (98-107) Carbon Dioxide Level 29 mmol/L (21-32) Anion Gap 11 (6-14) Blood Urea Nitrogen 66 mg/dL (7-20) Creatinine 10.6 mg/dL (0.6-1.0) Estimated GFR (Cockcroft-Gault) 4.4 BUN/Creatinine Ratio 6 (6-20) Glucose Level 133 mg/dL (70-99) Calcium Level 8.2 mg/dL (8.5-10.1) Magnesium Level 1.8 mg/dL (1.8-2.4) Total Bilirubin 0.4 mg/dL (0.2-1.0) Aspartate Amino Transf (AST/SGOT) 33 U/L (15-37) Alanine Aminotransferase (ALT/SGPT) 14 U/L (14-59) Alkaline Phosphatase 200 U/L (46-116) Creatine Kinase 64 U/L (26-192) Creatine Kinase MB (Mass) 1.9 ng/mL (0.0-3.6) Creatine Kinase MB Relative Index % (0-4) Total Protein 6.2 g/dL (6.4-8.2) Albumin 2.2 g/dL (3.4-5.0) Albumin/Globulin Ratio 0.6 (1.0-1.7) Lipase 127 U/L (73-393) Stool Occult Blood Positive (NEG) Test 07/21/19 18:07 Glucose (Fingerstick) 70 mg/dL (70-99) Laboratory Tests Test 07/21/19 08:55 07/21/19 09:15 07/21/19 10:20 07/21/19 15:32 Gastric Fluid Occult Blood Positive (NEG) White Blood Count 4.7 x10^3/uL (4.0-11.0) Red Blood Count 1.63 x10^6/uL (3.50-5.40) Hemoglobin 5.4 g/dL (12.0-15.5) 6.8 g/dL (12.0-15.5) Hematocrit 16.0 % (36.0-47.0) 19.3 % (36.0-47.0) Mean Corpuscular Volume 98 fL (79-100) Mean Corpuscular Hemoglobin 33 pg (25-35) Mean Corpuscular Hemoglobin Concent 34 g/dL (31-37) 35 g/dL (31-37) Red Cell Distribution Width 21.0 % (11.5-14.5) Platelet Count 141 x10^3/uL (140-400) Neutrophils (%) (Auto) 70 % (31-73) Lymphocytes (%) (Auto) 17 % (24-48) Monocytes (%) (Auto) 12 % (0-9) Eosinophils (%) (Auto) 1 % (0-3) Basophils (%) (Auto) 1 % (0-3) Neutrophils # (Auto) 3.3 x10^3/uL (1.8-7.7) Lymphocytes # (Auto) 0.8 x10^3/uL (1.0-4.8) Monocytes # (Auto) 0.5 x10^3/uL (0.0-1.1) Eosinophils # (Auto) 0.0 x10^3/uL (0.0-0.7) Basophils # (Auto) 0.0 x10^3/uL (0.0-0.2) Platelet Estimate Adequate (ADEQUATE) Polychromasia Present Anisocytosis Mod Macrocytosis Slight Prothrombin Time 16.1 SEC (11.7-14.0) Prothromb Time International Ratio 1.3 (0.8-1.1) Activated Partial Thromboplast Time 32 SEC (24-38) Sodium Level 134 mmol/L (136-145) Potassium Level 6.4 mmol/L (3.5-5.1) Chloride Level 94 mmol/L (98-107) Carbon Dioxide Level 29 mmol/L (21-32) Anion Gap 11 (6-14) Blood Urea Nitrogen 66 mg/dL (7-20) Creatinine 10.6 mg/dL (0.6-1.0) Estimated GFR (Cockcroft-Gault) 4.4 BUN/Creatinine Ratio 6 (6-20) Glucose Level 133 mg/dL (70-99) Calcium Level 8.2 mg/dL (8.5-10.1) Magnesium Level 1.8 mg/dL (1.8-2.4) Total Bilirubin 0.4 mg/dL (0.2-1.0) Aspartate Amino Transf (AST/SGOT) 33 U/L (15-37) Alanine Aminotransferase (ALT/SGPT) 14 U/L (14-59) Alkaline Phosphatase 200 U/L (46-116) Creatine Kinase 64 U/L (26-192) Creatine Kinase MB (Mass) 1.9 ng/mL (0.0-3.6) Creatine Kinase MB Relative Index % (0-4) Total Protein 6.2 g/dL (6.4-8.2) Albumin 2.2 g/dL (3.4-5.0) Albumin/Globulin Ratio 0.6 (1.0-1.7) Lipase 127 U/L (73-393) Stool Occult Blood Positive (NEG) Test 07/21/19 18:07 Glucose (Fingerstick) 70 mg/dL (70-99) Images Images EGD report reviewed-bleeding near pylorus, previous CT with concern for cirrhosis and portal hypertension Assessment/Plan Assessment/Plan UGI bleed agree with PPI and transfuse as needed with supportive care encouraged Etoh cessation. Suspect pt is poor surgical candidate, given cirrhosis. Also complicated by renal failure and obesity. Would avoid surgery, which would be antrectomy, if possible. Thanks for consult! LILLIE TERRY MD Jul 21, 2019 20:04
[2019-07-21] MEDS ORDERED: DARBEPOETIN ALFA 60 MCG/0.3 ML DISP.SYRIN. SQ SCH (21:00)
[2019-07-21] MEDS: HYDROmorphone 2 MG/ML VIAL IV PRN (22:08)
--- NOTE | 2019-07-21 23:02 | NUR ---
Dr. Clemente came and saw pt this evening at approx 2000 after receiving consult. MD stated we were going to correct pt labs and then further POC. MD asked to be updated with 2200 Hgb level. At approx 2130, pt was crying out in pain, rating it 9/10. Call placed to Dr. Jacobo. Received call back from on-call MD, Dr. Allred. Updated MD on pt status. Received order for Dilaudid 1mg PRN Q3hrs. Order entered into system. Pt incontinent of bowel and changed at approx 2200. Large amount of clotted blood passed in stool. Received call from lab at 2245 with critical Hgb of 6.3. Call placed to Dr. Clemente at approx 2251 per physician request and notified of Hgb. Received order to transfuse one more unit now then recheck Hgb in the am if no other major pt status changes occur. Order entered into system to transfuse unit. Continuing to monitor pt. Pt currently resting with eyes closed and call light within reach.
[2019-07-22] VITALS (31 sets, daily range): BP systolic 89–136; BP diastolic 43–66
[2019-07-22] MEDS: IV RINGERS,LACTATED 1000ML 1,000 ML IV SCH ×2 (02:45→14:36)
[2019-07-22 06:17] LABS: HEMOGLOBIN 7.2 g/dL (12.0-15.5); RED BLOOD COUNT 2.24 x10^6/uL (3.50-5.40); RED CELL DISTRIBUTION WIDTH 14.2 % (11.5-14.5); WHITE BLOOD COUNT 5.9 x10^3/uL (4.0-11.0)
[2019-07-22] MEDS: PANTOPRAZOLE SODIUM IV DRIP 80 MG in IV NORMAL SALINE 100ML 100 ML IV SCH ×2 (06:18→18:05)
[2019-07-22 06:32] LABS: CALCIUM 8.1 mg/dL (8.5-10.1); CREATININE 6.2 mg/dL (0.6-1.0); GFR 8.2; POTASSIUM 4.5 mmol/L (3.5-5.1)
[2019-07-22 07:02] LABS: HEMATOCRIT 20.8 % (36.0-47.0)
--- NOTE | 2019-07-22 07:10 | NUR ---
Received call with critical Hct of 20.[address] Clemente paged at 0705. returned call. Stated "Continue to watch patient. No need to transfuse blood at this time." Pt currently resting with eyes closed and call light within reach.
--- NOTE | 2019-07-22 10:20 | PDOC ---
Renal-Progress Notes Subjective Notes Notes HAS ABD PAIN History of Present Illness Hx of present illness STABLE Vitals Vitals Vital Signs Date Time Temp Pulse Resp B/P (MAP) Pulse Ox O2 Delivery O2 Flow Rate FiO2 07/22/19 08:00 83 18 98/52 (67) 100 Nasal Cannula 2.0 07/22/19 07:00 98.7 98.7 Weight Weight [ ] Stability Assess. Comments STABLE I.O. Intake and Output Intake and Output 07/22/19 07:00 Intake Total 2519.06 ml Output Total 0 ml Balance 2519.06 ml Intake Oral 0 ml IV Total 199.06 ml Blood Product 600 ml Blood Product IV Normal Saline Flush 1720 ml Output Urine Total 0 ml # Bowel Movements 2 Labs Labs Laboratory Tests Test 07/21/19 10:20 07/21/19 15:32 07/21/19 18:07 07/21/19 22:10 Stool Occult Blood Positive (NEG) Hemoglobin 6.8 g/dL (12.0-15.5) 6.3 g/dL (12.0-15.5) Hematocrit 19.3 % (36.0-47.0) Mean Corpuscular Hemoglobin Concent 35 g/dL (31-37) Glucose (Fingerstick) 70 mg/dL (70-99) Test 07/21/19 22:17 07/22/19 06:00 Glucose (Fingerstick) 115 mg/dL (70-99) White Blood Count 5.9 x10^3/uL (4.0-11.0) Red Blood Count 2.24 x10^6/uL (3.50-5.40) Hemoglobin 7.2 g/dL (12.0-15.5) Hematocrit 20.8 % (36.0-47.0) Mean Corpuscular Volume 93 fL (79-100) Mean Corpuscular Hemoglobin 32 pg (25-35) Mean Corpuscular Hemoglobin Concent 35 g/dL (31-37) Red Cell Distribution Width 14.2 % (11.5-14.5) Platelet Count 87 x10^3/uL (140-400) Sodium Level 138 mmol/L (136-145) Potassium Level 4.5 mmol/L (3.5-5.1) Chloride Level 102 mmol/L (98-107) Carbon Dioxide Level 32 mmol/L (21-32) Anion Gap 4 (6-14) Blood Urea Nitrogen 42 mg/dL (7-20) Creatinine 6.2 mg/dL (0.6-1.0) Estimated GFR (Cockcroft-Gault) 8.2 Glucose Level 99 mg/dL (70-99) Calcium Level 8.1 mg/dL (8.5-10.1) Review of Systems Constitutional: yes: alert, oriented Ears/Nose/Throat: Yes: no symptom reported Cardiovascular: Yes no symptom reported Gastrointestional: Yes: abdominal pain Genitourinary: Yes: no symptom reported Musculoskeletal: Yes: no symptom reported Skin: Yes no symptom reported Psychiatric/Neurological: Yes: no symptom reported Endocrine: Yes: no symptom reported Physical Exam General Appearance: no apparent distress Skin: warm Respiratory: bilateral CTA Heart: S1S2, RRR Abdomen: soft, bowel sounds present Extremities: pulses present Neurology: alert, oriented Assessment Assessment IMP HYPERKALEMIA-RESOLVED ANEMIA WITH GI BLEED ESRD HTN PLAN ARANESP HD TOMORROW PRBC NEEDED GI EVAL AND TX HAVE D/W GI SURGICAL EVALUATION WILL FOLLOW LINNEA SHULTZ MD Jul 22, 2019 10:20
[2019-07-22] MEDS: HYDROmorphone 2 MG/ML VIAL IV PRN ×2 (10:40→18:50)
--- NOTE | 2019-07-22 11:19 | PDOC ---
Subjective: Subjective: Crampy pain from navel to suprapubic area. Last episode of bleeding last night. Wants water. Feels better overall. Objective: Objective: Reviewed surgery note - UGI bleed Suspect pt is poor surgical candidate, given cirrhosis. Also complicated by renal failure and obesity. Would avoid surgery, which would be antrectomy, if possible. Vital Signs: Vital Signs Date Time Temp Pulse Resp B/P (MAP) Pulse Ox O2 Delivery O2 Flow Rate FiO2 07/22/19 08:00 83 18 98/52 (67) 100 Nasal Cannula 2.0 07/22/19 07:00 98.7 98.7 Labs: Laboratory Tests Test 07/21/19 15:32 07/21/19 18:07 07/21/19 22:10 07/21/19 22:17 Hemoglobin 6.8 g/dL 6.3 g/dL Hematocrit 19.3 % Mean Corpuscular Hemoglobin Concent 35 g/dL Glucose (Fingerstick) 70 mg/dL 115 mg/dL Test 07/22/19 06:00 White Blood Count 5.9 x10^3/uL Red Blood Count 2.24 x10^6/uL Hemoglobin 7.2 g/dL Hematocrit 20.8 % Mean Corpuscular Volume 93 fL Mean Corpuscular Hemoglobin 32 pg Mean Corpuscular Hemoglobin Concent 35 g/dL Red Cell Distribution Width 14.2 % Platelet Count 87 x10^3/uL Sodium Level 138 mmol/L Potassium Level 4.5 mmol/L Chloride Level 102 mmol/L Carbon Dioxide Level 32 mmol/L Anion Gap 4 Blood Urea Nitrogen 42 mg/dL Creatinine 6.2 mg/dL Estimated GFR (Cockcroft-Gault) 8.2 Glucose Level 99 mg/dL Calcium Level 8.1 mg/dL Imaging: EGD 07/21/19 E--Normal. No varices nor M-W tear. G--Old to fresher blood from proximal to distal. Oozing of blood from prepyloric area near site of prior ulcer. Unable to wash clean enough to visualize discrete site of bleeding. Seemed to be a hole breaching the mucosa at least, but with blood unable to clearly see. D--Blood from bulb to second portion, but no active bleeding site. IMP: Bleeding again from prepyloric area; unable to visualize exact nature of lesion. Possible old, confined perf? To account for the "hole"? REC: NPO Continue PPI gtt. Will discuss with IR and obtain surgical opinion. Monitor hemoglobin and transfuse prn. Has had prior not too abnormal gastrin, so not Z-E syndrome. Reviewed CT from this AM; no extraluminal air mentioned. PE: GEN: NAD LUNGS: NC 2L HEART: RRR ABD: soft, periumbilical discomfort - mild NEURO/PSYCH: A & O 3 A/P: Hematemesis, hematochezia/melena - ?slowing H/o prepyloric ulcer s/p endotherapy and IR embolization 07/01/19 - repeat EGD yesterday as above w/ bleeding again from prepyloric area w/ possible old, confined perf Chronic anemia - requiring transfusions ESRD on HD GERD, cirrhosis -- Continue NPO w/ PPI for now. IRIS SZYMANSKI Jul 22, 2019 11:18
--- NOTE | 2019-07-22 13:47 | PDOC ---
[employer] PROGRESS NOTE Chief Complaint Chief Complaint Upper GI bleed Hematemesis ESRD Obesity Cirrhosis History of Present Illness History of Present Illness 07/22/19 Pt was seen and examined in the ICU Was alert but weak DW RN No bleeding as of today Says that she drinks 2 shots of whiskey everyday Vitals/I&O Vitals/I&O: Vital Signs Date Time Temp Pulse Resp B/P (MAP) Pulse Ox O2 Delivery O2 Flow Rate FiO2 07/22/19 11:00 82 18 113/56 (75) 100 Nasal Cannula 2.0 07/22/19 07:00 98.7 98.7 I & O 07/21/19 07/21/19 07/22/19 15:00 23:00 07:00 Intake Total 1720 ml 680 ml 119.06 ml Output Total 0 ml 0 ml 0 ml Balance 1720 ml 680 ml 119.06 ml Physical Exam Physical Exam: General Appearance: no apparent distress Skin: warm Respiratory: bilateral CTA Heart: S1S2, RRR Abdomen: soft, bowel sounds present Extremities: pulses present Neurology: alert, oriented General: Alert, Oriented X3, Cooperative, No acute distress Heart: Regular rate, Normal S1, Normal S2 Lungs: Clear Abdomen: Soft, No tenderness Extremities: No clubbing, No cyanosis Skin: No rashes, No breakdown Labs Labs: Laboratory Tests Test 07/21/19 15:32 07/21/19 18:07 07/21/19 22:10 07/21/19 22:17 Hemoglobin 6.8 g/dL (12.0-15.5) 6.3 g/dL (12.0-15.5) Hematocrit 19.3 % (36.0-47.0) Mean Corpuscular Hemoglobin Concent 35 g/dL (31-37) Glucose (Fingerstick) 70 mg/dL (70-99) 115 mg/dL (70-99) Test 07/22/19 06:00 White Blood Count 5.9 x10^3/uL (4.0-11.0) Red Blood Count 2.24 x10^6/uL (3.50-5.40) Hemoglobin 7.2 g/dL (12.0-15.5) Hematocrit 20.8 % (36.0-47.0) Mean Corpuscular Volume 93 fL (79-100) Mean Corpuscular Hemoglobin 32 pg (25-35) Mean Corpuscular Hemoglobin Concent 35 g/dL (31-37) Red Cell Distribution Width 14.2 % (11.5-14.5) Platelet Count 87 x10^3/uL (140-400) Sodium Level 138 mmol/L (136-145) Potassium Level 4.5 mmol/L (3.5-5.1) Chloride Level 102 mmol/L (98-107) Carbon Dioxide Level 32 mmol/L (21-32) Anion Gap 4 (6-14) Blood Urea Nitrogen 42 mg/dL (7-20) Creatinine 6.2 mg/dL (0.6-1.0) Estimated GFR (Cockcroft-Gault) 8.2 Glucose Level 99 mg/dL (70-99) Calcium Level 8.1 mg/dL (8.5-10.1) Review of Systems Review of Systems: No nausea, no vomiting No chest pain, no shortness of breath Assessment and Plan Assessmemt and Plan Problems Medical Problems: (1) Anemia Status: Chronic (2) Cirrhosis Status: Chronic (3) ESRD (end stage renal disease) on dialysis Status: Chronic (4) Rectal bleeding Status: Acute (5) Upper GI bleed Status: Acute Assessment Hematemesis Upper GI bleed ESRD Cirrhosis Anemia Plan ICU monitoring Appreciate surgical consult Trend Hgb DVT prophylaxis Full code Monitor for EtOH withdrawal NPO Continue PPIs Consult GI Advise patient to avoid EtOH intake Comment Review of Relevant I have reviewed the following items tamika (where applicable) has been applied. Medications: Current Medications Medications (Trade) Dose Ordered Sig/Kimberly Route PRN Reason Start Time Stop Time Status Last Admin Dose Admin Darbepoetin [place] (ARANESP for DIALYSIS PTS) 60 mcg WEEKLYHS SQ 07/21/19 21:00 07/21/19 22:15 Midazolam HCl (Versed) 5 mg STK-MED ONCE IV 07/21/19 17:35 07/21/19 17:37 DC 07/21/19 17:37 Fentanyl Citrate (Fentanyl 2ml Vial) 100 mcg STK-MED ONCE IV 07/21/19 17:35 07/21/19 17:37 DC 07/21/19 17:37 Midazolam HCl (Versed) 5 mg STK-MED ONCE IV 07/21/19 17:37 07/21/19 17:39 DC 07/21/19 17:39 Fentanyl Citrate (Fentanyl 2ml Vial) 100 mcg STK-MED ONCE IV 07/21/19 17:38 07/21/19 17:40 DC 07/21/19 17:40 Hydromorphone HCl (Dilaudid) 1 mg PRN Q3HRS PRN IV PAIN 07/21/19 21:45 07/22/19 10:40 VIKAS GAMEZ III DO Jul 22, 2019 13:47
[2019-07-22] MEDS: NYSTATIN TOPICAL POWDER 15GM BOTTLE. TP SCH ×2 (14:30→21:17)
--- NOTE | 2019-07-22 14:36 | PDOC ---
SURGICAL PROGRESS NOTE Subjective Pt feels better today, no n/v Vital Signs Vital Signs Date Time Temp Pulse Resp B/P (MAP) Pulse Ox O2 Delivery O2 Flow Rate FiO2 07/22/19 11:00 82 18 113/56 (75) 100 Nasal Cannula 2.0 07/22/19 07:00 98.7 98.7 I&O Intake and Output 07/22/19 07:00 Intake Total 2519.06 ml Output Total 0 ml Balance 2519.06 ml Intake Oral 0 ml IV Total 199.06 ml Blood Product 600 ml Blood Product IV Normal Saline Flush 1720 ml Output Urine Total 0 ml # Bowel Movements 2 General: Alert, Oriented X3, Cooperative, No acute distress Abdomen: Soft, No tenderness Labs Laboratory Tests Test 07/21/19 08:55 07/21/19 09:15 07/21/19 10:20 07/21/19 15:32 Gastric Fluid Occult Blood Positive (NEG) White Blood Count 4.7 x10^3/uL (4.0-11.0) Red Blood Count 1.63 x10^6/uL (3.50-5.40) Hemoglobin 5.4 g/dL (12.0-15.5) 6.8 g/dL (12.0-15.5) Hematocrit 16.0 % (36.0-47.0) 19.3 % (36.0-47.0) Mean Corpuscular Volume 98 fL (79-100) Mean Corpuscular Hemoglobin 33 pg (25-35) Mean Corpuscular Hemoglobin Concent 34 g/dL (31-37) 35 g/dL (31-37) Red Cell Distribution Width 21.0 % (11.5-14.5) Platelet Count 141 x10^3/uL (140-400) Neutrophils (%) (Auto) 70 % (31-73) Lymphocytes (%) (Auto) 17 % (24-48) Monocytes (%) (Auto) 12 % (0-9) Eosinophils (%) (Auto) 1 % (0-3) Basophils (%) (Auto) 1 % (0-3) Neutrophils # (Auto) 3.3 x10^3/uL (1.8-7.7) Lymphocytes # (Auto) 0.8 x10^3/uL (1.0-4.8) Monocytes # (Auto) 0.5 x10^3/uL (0.0-1.1) Eosinophils # (Auto) 0.0 x10^3/uL (0.0-0.7) Basophils # (Auto) 0.0 x10^3/uL (0.0-0.2) Platelet Estimate Adequate (ADEQUATE) Polychromasia Present Anisocytosis Mod Macrocytosis Slight Prothrombin Time 16.1 SEC (11.7-14.0) Prothromb Time International Ratio 1.3 (0.8-1.1) Activated Partial Thromboplast Time 32 SEC (24-38) Sodium Level 134 mmol/L (136-145) Potassium Level 6.4 mmol/L (3.5-5.1) Chloride Level 94 mmol/L (98-107) Carbon Dioxide Level 29 mmol/L (21-32) Anion Gap 11 (6-14) Blood Urea Nitrogen 66 mg/dL (7-20) Creatinine 10.6 mg/dL (0.6-1.0) Estimated GFR (Cockcroft-Gault) 4.4 BUN/Creatinine Ratio 6 (6-20) Glucose Level 133 mg/dL (70-99) Calcium Level 8.2 mg/dL (8.5-10.1) Magnesium Level 1.8 mg/dL (1.8-2.4) Total Bilirubin 0.4 mg/dL (0.2-1.0) Aspartate Amino Transf (AST/SGOT) 33 U/L (15-37) Alanine Aminotransferase (ALT/SGPT) 14 U/L (14-59) Alkaline Phosphatase 200 U/L (46-116) Creatine Kinase 64 U/L (26-192) Creatine Kinase MB (Mass) 1.9 ng/mL (0.0-3.6) Creatine Kinase MB Relative Index % (0-4) Total Protein 6.2 g/dL (6.4-8.2) Albumin 2.2 g/dL (3.4-5.0) Albumin/Globulin Ratio 0.6 (1.0-1.7) Lipase 127 U/L (73-393) Stool Occult Blood Positive (NEG) Test 07/21/19 18:07 07/21/19 22:10 07/21/19 22:17 07/22/19 06:00 Glucose (Fingerstick) 70 mg/dL (70-99) 115 mg/dL (70-99) Hemoglobin 6.3 g/dL (12.0-15.5) 7.2 g/dL (12.0-15.5) White Blood Count 5.9 x10^3/uL (4.0-11.0) Red Blood Count 2.24 x10^6/uL (3.50-5.40) Hematocrit 20.8 % (36.0-47.0) Mean Corpuscular Volume 93 fL (79-100) Mean Corpuscular Hemoglobin 32 pg (25-35) Mean Corpuscular Hemoglobin Concent 35 g/dL (31-37) Red Cell Distribution Width 14.2 % (11.5-14.5) Platelet Count 87 x10^3/uL (140-400) Sodium Level 138 mmol/L (136-145) Potassium Level 4.5 mmol/L (3.5-5.1) Chloride Level 102 mmol/L (98-107) Carbon Dioxide Level 32 mmol/L (21-32) Anion Gap 4 (6-14) Blood Urea Nitrogen 42 mg/dL (7-20) Creatinine 6.2 mg/dL (0.6-1.0) Estimated GFR (Cockcroft-Gault) 8.2 Glucose Level 99 mg/dL (70-99) Calcium Level 8.1 mg/dL (8.5-10.1) Laboratory Tests Test 07/21/19 15:32 07/21/19 18:07 07/21/19 22:10 07/21/19 22:17 Hemoglobin 6.8 g/dL (12.0-15.5) 6.3 g/dL (12.0-15.5) Hematocrit 19.3 % (36.0-47.0) Mean Corpuscular Hemoglobin Concent 35 g/dL (31-37) Glucose (Fingerstick) 70 mg/dL (70-99) 115 mg/dL (70-99) Test 07/22/19 06:00 White Blood Count 5.9 x10^3/uL (4.0-11.0) Red Blood Count 2.24 x10^6/uL (3.50-5.40) Hemoglobin 7.2 g/dL (12.0-15.5) Hematocrit 20.8 % (36.0-47.0) Mean Corpuscular Volume 93 fL (79-100) Mean Corpuscular Hemoglobin 32 pg (25-35) Mean Corpuscular Hemoglobin Concent 35 g/dL (31-37) Red Cell Distribution Width 14.2 % (11.5-14.5) Platelet Count 87 x10^3/uL (140-400) Sodium Level 138 mmol/L (136-145) Potassium Level 4.5 mmol/L (3.5-5.1) Chloride Level 102 mmol/L (98-107) Carbon Dioxide Level 32 mmol/L (21-32) Anion Gap 4 (6-14) Blood Urea Nitrogen 42 mg/dL (7-20) Creatinine 6.2 mg/dL (0.6-1.0) Estimated GFR (Cockcroft-Gault) 8.2 Glucose Level 99 mg/dL (70-99) Calcium Level 8.1 mg/dL (8.5-10.1) Problem List Problems Medical Problems: (1) Anemia Status: Chronic (2) Cirrhosis Status: Chronic (3) ESRD (end stage renal disease) on dialysis Status: Chronic (4) Rectal bleeding Status: Acute (5) Upper GI bleed Status: Acute Assessment/Plan UGI bleeding appears to be improving cont supportive care no surgical plans currently LILLIE TERRY MD Jul 22, 2019 14:36
--- NOTE | 2019-07-22 15:38 | NUR ---
SS following for discharge planning. SS reviewed pt chart. Pt is from home and is currently on room air. Pt has OPHD in the community at [facility], Saturday, , and Saturdays. SS will continue to follow for discharge planning.
[2019-07-22 19:57] LABS: HEMOGLOBIN 6.9 g/dL (12.0-15.5)
--- NOTE | 2019-07-22 20:29 | NUR ---
Critical Hgb of 6.9 reported to this RN at approx 1958. Page sent out to Dr. Jacobo at 1999. Received call back at 2019. Updated MD on pt critical lab and condition. Received order to transfuse 1 unit PRBC at this time. Orders entered into system. Will transfuse blood as soon as available and continue to monitor pt. Pt currently resting with eyes closed and call light within reach.
[2019-07-22] MEDS: DEXTROSE 50% 25 GM / 50ML DISP.SYRIN. IV PRN (23:52)
[2019-07-23] VITALS (25 sets, daily range): BP systolic 101–153; BP diastolic 47–66
[2019-07-23] MEDS: HYDROmorphone 2 MG/ML VIAL IV PRN ×2 (00:21→19:08)
[2019-07-23 01:10] LABS: HEMATOCRIT 21.3 % (36.0-47.0); HEMOGLOBIN 7.3 g/dL (12.0-15.5); RED BLOOD COUNT 2.33 x10^6/uL (3.50-5.40); RED CELL DISTRIBUTION WIDTH 15.4 % (11.5-14.5); WHITE BLOOD COUNT 5.6 x10^3/uL (4.0-11.0)
[2019-07-23] MEDS: IV RINGERS,LACTATED 1000ML 1,000 ML IV SCH ×2 (04:46→14:33)
[2019-07-23] MEDS: PANTOPRAZOLE SODIUM IV DRIP 80 MG in IV NORMAL SALINE 100ML 100 ML IV SCH ×2 (04:58→17:30)
[2019-07-23 05:02] LABS: HEMATOCRIT 22.7 % (36.0-47.0); HEMOGLOBIN 7.8 g/dL (12.0-15.5); RED BLOOD COUNT 2.47 x10^6/uL (3.50-5.40); RED CELL DISTRIBUTION WIDTH 15.6 % (11.5-14.5); WHITE BLOOD COUNT 5.7 x10^3/uL (4.0-11.0)
[2019-07-23 05:12] LABS: CALCIUM 8.4 mg/dL (8.5-10.1); CREATININE 7.3 mg/dL (0.6-1.0); GFR 6.8; POTASSIUM 4.9 mmol/L (3.5-5.1)
[2019-07-23] MEDS: MORPHINE SULFATE 2 MG/ML VIAL. IV PRN ×3 (06:48→16:35)
--- NOTE | 2019-07-23 10:05 | PDOC ---
Subjective: Subjective: No pain, wants something to drink. Thinks bleeding slowing. Objective: Objective: D/w nurse - last night passed dark red blood - "running out of her" - then "smears" overnight. Vital Signs: Vital Signs Date Time Temp Pulse Resp B/P (MAP) Pulse Ox O2 Delivery O2 Flow Rate FiO2 07/23/19 07:00 81 16 119/59 (79) 100 Room Air 07/23/19 04:00 97.9 97.9 07/22/19 11:00 2.0 Labs: Laboratory Tests Test 07/22/19 19:45 07/22/19 23:47 07/23/19 00:09 07/23/19 00:50 Hemoglobin 6.9 g/dL 7.3 g/dL Hematocrit 20.0 % 21.3 % Mean Corpuscular Hemoglobin Concent 35 g/dL 34 g/dL Glucose (Fingerstick) 68 mg/dL 108 mg/dL White Blood Count 5.6 x10^3/uL Red Blood Count 2.33 x10^6/uL Mean Corpuscular Volume 92 fL Mean Corpuscular Hemoglobin 31 pg Red Cell Distribution Width 15.4 % Platelet Count 101 x10^3/uL Test 07/23/19 04:30 White Blood Count 5.7 x10^3/uL Red Blood Count 2.47 x10^6/uL Hemoglobin 7.8 g/dL Hematocrit 22.7 % Mean Corpuscular Volume 92 fL Mean Corpuscular Hemoglobin 31 pg Mean Corpuscular Hemoglobin Concent 34 g/dL Red Cell Distribution Width 15.6 % Platelet Count 112 x10^3/uL Sodium Level 139 mmol/L Potassium Level 4.9 mmol/L Chloride Level 101 mmol/L Carbon Dioxide Level 28 mmol/L Anion Gap 10 Blood Urea Nitrogen 52 mg/dL Creatinine 7.3 mg/dL Estimated GFR (Cockcroft-Gault) 6.8 Glucose Level 85 mg/dL Calcium Level 8.4 mg/dL PE: GEN: NAD - up to chair LUNGS: CTAB HEART: RRR ABD: round, soft, less tender NEURO/PSYCH: A & O 3 A/P: Hematochezia/melena - H/o prepyloric ulcer s/p endotherapy and IR embolization 07/01/19 - repeat EGD 07/21/29 w/ bleeding from prepyloric area w/ possible old/confined perf Chronic anemia - required 5 units pRBCs this admission ESRD on HD GERD, cirrhosis -- Continue ice chips and IV PPI for now, consider second-look EGD at some point. IRIS SZYMANSKI Jul 23, 2019 10:05
[2019-07-23] MEDS ORDERED: IV NORMAL SALINE 1000ML BAG 1,000 ML IV PRN ×2 (10:56)
[2019-07-23] MEDS ORDERED: DIALYSIS PATIENT. MC PRN ×2 (11:00)
--- NOTE | 2019-07-23 11:14 | PDOC ---
[employer] PROGRESS NOTE Chief Complaint Chief Complaint Upper GI bleed Hematemesis ESRD Obesity Cirrhosis History of Present Illness History of Present Illness 07/23/19 Pt was seen and examined in the ICU Pt was sitting up in chair and watching television Asked if she could have chicken broth DW RN Had occult blood in stool; needs to be kept NPO Approved transfer to medical floor 07/22/19 Pt was seen and examined in the ICU Was alert but weak DW RN No bleeding as of today Says that she drinks 2 shots of whiskey everyday Vitals/I&O Vitals/I&O: Vital Signs Date Time Temp Pulse Resp B/P (MAP) Pulse Ox O2 Delivery O2 Flow Rate FiO2 07/23/19 08:00 Room Air 07/23/19 07:00 81 16 119/59 (79) 100 07/23/19 04:00 97.9 97.9 07/22/19 11:00 2.0 I & O 07/22/19 07/22/19 07/23/19 15:00 23:00 07:00 Intake Total 0 ml 240 ml 1329.19 ml Output Total 0 ml 0 ml 0 ml Balance 0 ml 240 ml 1329.19 ml Physical Exam Physical Exam: General Appearance: no apparent distress Skin: warm Respiratory: bilateral CTA Heart: S1S2, RRR Abdomen: soft, bowel sounds present Extremities: pulses present Neurology: alert, oriented General: Alert, Oriented X3, Cooperative, No acute distress Heart: Regular rate, Normal S1, Normal S2 Lungs: Clear Abdomen: Soft, No tenderness Extremities: No clubbing, No cyanosis Skin: No rashes, No breakdown Labs Labs: Laboratory Tests Test 07/22/19 19:45 07/22/19 23:47 07/23/19 00:09 07/23/19 00:50 Hemoglobin 6.9 g/dL (12.0-15.5) 7.3 g/dL (12.0-15.5) Hematocrit 20.0 % (36.0-47.0) 21.3 % (36.0-47.0) Mean Corpuscular Hemoglobin Concent 35 g/dL (31-37) 34 g/dL (31-37) Glucose (Fingerstick) 68 mg/dL (70-99) 108 mg/dL (70-99) White Blood Count 5.6 x10^3/uL (4.0-11.0) Red Blood Count 2.33 x10^6/uL (3.50-5.40) Mean Corpuscular Volume 92 fL (79-100) Mean Corpuscular Hemoglobin 31 pg (25-35) Red Cell Distribution Width 15.4 % (11.5-14.5) Platelet Count 101 x10^3/uL (140-400) Test 07/23/19 04:30 White Blood Count 5.7 x10^3/uL (4.0-11.0) Red Blood Count 2.47 x10^6/uL (3.50-5.40) Hemoglobin 7.8 g/dL (12.0-15.5) Hematocrit 22.7 % (36.0-47.0) Mean Corpuscular Volume 92 fL (79-100) Mean Corpuscular Hemoglobin 31 pg (25-35) Mean Corpuscular Hemoglobin Concent 34 g/dL (31-37) Red Cell Distribution Width 15.6 % (11.5-14.5) Platelet Count 112 x10^3/uL (140-400) Sodium Level 139 mmol/L (136-145) Potassium Level 4.9 mmol/L (3.5-5.1) Chloride Level 101 mmol/L (98-107) Carbon Dioxide Level 28 mmol/L (21-32) Anion Gap 10 (6-14) Blood Urea Nitrogen 52 mg/dL (7-20) Creatinine 7.3 mg/dL (0.6-1.0) Estimated GFR (Cockcroft-Gault) 6.8 Glucose Level 85 mg/dL (70-99) Calcium Level 8.4 mg/dL (8.5-10.1) Review of Systems Review of Systems: No nausea, no vomiting No headache, no loss of vision Assessment and Plan Assessmemt and Plan Problems Medical Problems: (1) Anemia Status: Chronic (2) Cirrhosis Status: Chronic (3) ESRD (end stage renal disease) on dialysis Status: Chronic (4) Rectal bleeding Status: Acute (5) Upper GI bleed Status: Acute Assessment Upper GI bleed Cirrhosis ESRD Anemia Rectal bleeding Plan ICU monitoring Trend Hgb EtOH cessation NPO per GI Transfer to medical floor Continue monitoring Discharge when approved by GI Comment Review of Relevant I have reviewed the following items tamika (where applicable) has been applied. Medications: Current Medications Medications (Trade) Dose Ordered Sig/Kimberly Route PRN Reason Start Time Stop Time Status Last Admin Dose Admin Nystatin (Nystop) 1 leonila BID TP 07/22/19 12:00 07/22/19 21:17 VIKAS GAMEZ III DO Jul 23, 2019 11:14
[2019-07-23] MEDS: NYSTATIN TOPICAL POWDER 15GM BOTTLE. TP SCH ×2 (11:21→21:40)
--- NOTE | 2019-07-23 11:55 | PDOC ---
Renal-Progress Notes Subjective Notes Notes FEELING BETTER History of Present Illness Hx of present illness STABLE Vitals Vitals Vital Signs Date Time Temp Pulse Resp B/P (MAP) Pulse Ox O2 Delivery O2 Flow Rate FiO2 07/23/19 08:00 Room Air 07/23/19 07:00 81 16 119/59 (79) 100 07/23/19 04:00 97.9 97.9 07/22/19 11:00 2.0 Weight Weight [ ] I.O. Intake and Output Intake and Output 07/23/19 07:00 Intake Total 1569.19 ml Output Total 0 ml Balance 1569.19 ml Intake Oral 0 ml IV Total 1464.19 ml Blood Product IV Normal Saline Flush 105 ml Output Urine Total 0 ml # Bowel Movements 2 Labs Labs Laboratory Tests Test 07/22/19 19:45 07/22/19 23:47 07/23/19 00:09 07/23/19 00:50 Hemoglobin 6.9 g/dL (12.0-15.5) 7.3 g/dL (12.0-15.5) Hematocrit 20.0 % (36.0-47.0) 21.3 % (36.0-47.0) Mean Corpuscular Hemoglobin Concent 35 g/dL (31-37) 34 g/dL (31-37) Glucose (Fingerstick) 68 mg/dL (70-99) 108 mg/dL (70-99) White Blood Count 5.6 x10^3/uL (4.0-11.0) Red Blood Count 2.33 x10^6/uL (3.50-5.40) Mean Corpuscular Volume 92 fL (79-100) Mean Corpuscular Hemoglobin 31 pg (25-35) Red Cell Distribution Width 15.4 % (11.5-14.5) Platelet Count 101 x10^3/uL (140-400) Test 07/23/19 04:30 White Blood Count 5.7 x10^3/uL (4.0-11.0) Red Blood Count 2.47 x10^6/uL (3.50-5.40) Hemoglobin 7.8 g/dL (12.0-15.5) Hematocrit 22.7 % (36.0-47.0) Mean Corpuscular Volume 92 fL (79-100) Mean Corpuscular Hemoglobin 31 pg (25-35) Mean Corpuscular Hemoglobin Concent 34 g/dL (31-37) Red Cell Distribution Width 15.6 % (11.5-14.5) Platelet Count 112 x10^3/uL (140-400) Sodium Level 139 mmol/L (136-145) Potassium Level 4.9 mmol/L (3.5-5.1) Chloride Level 101 mmol/L (98-107) Carbon Dioxide Level 28 mmol/L (21-32) Anion Gap 10 (6-14) Blood Urea Nitrogen 52 mg/dL (7-20) Creatinine 7.3 mg/dL (0.6-1.0) Estimated GFR (Cockcroft-Gault) 6.8 Glucose Level 85 mg/dL (70-99) Calcium Level 8.4 mg/dL (8.5-10.1) Review of Systems Constitutional: yes: alert, oriented Ears/Nose/Throat: Yes: no symptom reported Cardiovascular: Yes no symptom reported Gastrointestional: Yes: abdominal pain Genitourinary: Yes: no symptom reported Musculoskeletal: Yes: no symptom reported Skin: Yes no symptom reported Psychiatric/Neurological: Yes: no symptom reported Endocrine: Yes: no symptom reported Physical Exam General Appearance: no apparent distress Skin: warm Respiratory: bilateral CTA Heart: S1S2, RRR Abdomen: soft, bowel sounds present Extremities: pulses present Neurology: alert, oriented Assessment Assessment IMP HYPERKALEMIA-RESOLVED ANEMIA WITH GI BLEED ESRD HTN PLAN ARANESP HD TODAY UF TO DW PRBC NEEDED GI EVAL AND TX HAVE D/W GI SURGICAL EVALUATION WILL FOLLOW LINNEA SHULTZ MD Jul 23, 2019 11:54
--- NOTE | 2019-07-23 12:03 | PDOC ---
SURGICAL PROGRESS NOTE Subjective Jae for Dr Clemente pt says she "feels a little better" than when she came in pain improved Vital Signs Vital Signs Date Time Temp Pulse Resp B/P (MAP) Pulse Ox O2 Delivery O2 Flow Rate FiO2 07/23/19 08:00 Room Air 07/23/19 07:00 81 16 119/59 (79) 100 07/23/19 04:00 97.9 97.9 07/22/19 11:00 2.0 I&O Intake and Output 07/23/19 06:59 Intake Total 1569.19 ml Output Total 0 ml Balance 1569.19 ml Intake Oral 0 ml IV Total 1464.19 ml Blood Product IV Normal Saline Flush 105 ml Output Urine Total 0 ml # Bowel Movements 2 General: Alert Abdomen: Soft, Other (minimally TTP) Labs Laboratory Tests Test 07/21/19 15:32 07/21/19 18:07 07/21/19 22:10 07/21/19 22:17 Hemoglobin 6.8 g/dL (12.0-15.5) 6.3 g/dL (12.0-15.5) Hematocrit 19.3 % (36.0-47.0) Mean Corpuscular Hemoglobin Concent 35 g/dL (31-37) Glucose (Fingerstick) 70 mg/dL (70-99) 115 mg/dL (70-99) Test 07/22/19 06:00 07/22/19 19:45 07/22/19 23:47 07/23/19 00:09 White Blood Count 5.9 x10^3/uL (4.0-11.0) Red Blood Count 2.24 x10^6/uL (3.50-5.40) Hemoglobin 7.2 g/dL (12.0-15.5) 6.9 g/dL (12.0-15.5) Hematocrit 20.8 % (36.0-47.0) 20.0 % (36.0-47.0) Mean Corpuscular Volume 93 fL (79-100) Mean Corpuscular Hemoglobin 32 pg (25-35) Mean Corpuscular Hemoglobin Concent 35 g/dL (31-37) 35 g/dL (31-37) Red Cell Distribution Width 14.2 % (11.5-14.5) Platelet Count 87 x10^3/uL (140-400) Sodium Level 138 mmol/L (136-145) Potassium Level 4.5 mmol/L (3.5-5.1) Chloride Level 102 mmol/L (98-107) Carbon Dioxide Level 32 mmol/L (21-32) Anion Gap 4 (6-14) Blood Urea Nitrogen 42 mg/dL (7-20) Creatinine 6.2 mg/dL (0.6-1.0) Estimated GFR (Cockcroft-Gault) 8.2 Glucose Level 99 mg/dL (70-99) Calcium Level 8.1 mg/dL (8.5-10.1) Glucose (Fingerstick) 68 mg/dL (70-99) 108 mg/dL (70-99) Test 07/23/19 00:50 07/23/19 04:30 White Blood Count 5.6 x10^3/uL (4.0-11.0) 5.7 x10^3/uL (4.0-11.0) Red Blood Count 2.33 x10^6/uL (3.50-5.40) 2.47 x10^6/uL (3.50-5.40) Hemoglobin 7.3 g/dL (12.0-15.5) 7.8 g/dL (12.0-15.5) Hematocrit 21.3 % (36.0-47.0) 22.7 % (36.0-47.0) Mean Corpuscular Volume 92 fL (79-100) 92 fL (79-100) Mean Corpuscular Hemoglobin 31 pg (25-35) 31 pg (25-35) Mean Corpuscular Hemoglobin Concent 34 g/dL (31-37) 34 g/dL (31-37) Red Cell Distribution Width 15.4 % (11.5-14.5) 15.6 % (11.5-14.5) Platelet Count 101 x10^3/uL (140-400) 112 x10^3/uL (140-400) Sodium Level 139 mmol/L (136-145) Potassium Level 4.9 mmol/L (3.5-5.1) Chloride Level 101 mmol/L (98-107) Carbon Dioxide Level 28 mmol/L (21-32) Anion Gap 10 (6-14) Blood Urea Nitrogen 52 mg/dL (7-20) Creatinine 7.3 mg/dL (0.6-1.0) Estimated GFR (Cockcroft-Gault) 6.8 Glucose Level 85 mg/dL (70-99) Calcium Level 8.4 mg/dL (8.5-10.1) Laboratory Tests Test 07/22/19 19:45 07/22/19 23:47 07/23/19 00:09 07/23/19 00:50 Hemoglobin 6.9 g/dL (12.0-15.5) 7.3 g/dL (12.0-15.5) Hematocrit 20.0 % (36.0-47.0) 21.3 % (36.0-47.0) Mean Corpuscular Hemoglobin Concent 35 g/dL (31-37) 34 g/dL (31-37) Glucose (Fingerstick) 68 mg/dL (70-99) 108 mg/dL (70-99) White Blood Count 5.6 x10^3/uL (4.0-11.0) Red Blood Count 2.33 x10^6/uL (3.50-5.40) Mean Corpuscular Volume 92 fL (79-100) Mean Corpuscular Hemoglobin 31 pg (25-35) Red Cell Distribution Width 15.4 % (11.5-14.5) Platelet Count 101 x10^3/uL (140-400) Test 07/23/19 04:30 White Blood Count 5.7 x10^3/uL (4.0-11.0) Red Blood Count 2.47 x10^6/uL (3.50-5.40) Hemoglobin 7.8 g/dL (12.0-15.5) Hematocrit 22.7 % (36.0-47.0) Mean Corpuscular Volume 92 fL (79-100) Mean Corpuscular Hemoglobin 31 pg (25-35) Mean Corpuscular Hemoglobin Concent 34 g/dL (31-37) Red Cell Distribution Width 15.6 % (11.5-14.5) Platelet Count 112 x10^3/uL (140-400) Sodium Level 139 mmol/L (136-145) Potassium Level 4.9 mmol/L (3.5-5.1) Chloride Level 101 mmol/L (98-107) Carbon Dioxide Level 28 mmol/L (21-32) Anion Gap 10 (6-14) Blood Urea Nitrogen 52 mg/dL (7-20) Creatinine 7.3 mg/dL (0.6-1.0) Estimated GFR (Cockcroft-Gault) 6.8 Glucose Level 85 mg/dL (70-99) Calcium Level 8.4 mg/dL (8.5-10.1) Problem List Problems Medical Problems: (1) Anemia Status: Chronic (2) Cirrhosis Status: Chronic (3) ESRD (end stage renal disease) on dialysis Status: Chronic (4) Rectal bleeding Status: Acute (5) Upper GI bleed Status: Acute Assessment/Plan UGI bleeding, probable PUD no new surgical recs continue supportive care JULIO BUSCH MD Jul 23, 2019 12:03
[2019-07-23] MEDS: DICLOFENAC SODIUM 1% TOPICAL GEL 100GM TUBE. TP SCH (18:34)
--- NOTE | 2019-07-23 19:22 | RAD ---
Indication:Pain and tingling. TECHNIQUE: 2 views of left hand COMPARISON: None FINDINGS/ impression: Osteopenia. No acute fracture or dislocation. 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 Vascular calcifications. Correlate for symptoms of peripheral arterial disease. Electronically signed by: Esteban Del Rio DO (07/23/2019 7:19 PM) [facility]
[2019-07-23] MEDS: DEXTROSE 50% 25 GM / 50ML DISP.SYRIN. IV PRN (23:39)
[2019-07-24] VITALS (16 sets, daily range): BP systolic 114–171; BP diastolic 43–67
[2019-07-24] MEDS: IV RINGERS,LACTATED 1000ML 1,000 ML IV SCH ×4 (00:38→14:45)
[2019-07-24] MEDS: PANTOPRAZOLE SODIUM IV DRIP 80 MG in IV NORMAL SALINE 100ML 100 ML IV SCH ×2 (05:11→07:45)
[2019-07-24 05:47] LABS: CALCIUM 8.3 mg/dL (8.5-10.1); CREATININE 4.3 mg/dL (0.6-1.0); GFR 12.5; POTASSIUM 4.1 mmol/L (3.5-5.1)
[2019-07-24 05:49] LABS: RED BLOOD COUNT 2.2 x10^6/uL (3.50-5.40); WHITE BLOOD COUNT 3.9 x10^3/uL (4.0-11.0)
[2019-07-24 05:58] LABS: HEMATOCRIT 20.4 % (36.0-47.0); HEMOGLOBIN 6.9 g/dL (12.0-15.5)
--- NOTE | 2019-07-24 06:12 | NUR ---
Critical hemoglobin of 6.9 called to this RN at 0561. Page sent out to Dr. Jacobo at 0545. Received call back from Dr. Jaiden MD on-call. Updated MD on pt diagnoses, status, and critical lab. Received order to transfuse 1 unit PRBCs and then recheck Hgb one hour after transfusion. Order entered into system. Pt updated on lab results. Pt currently resting in bed with call light within reach.
[2019-07-24] MEDS: DICLOFENAC SODIUM 1% TOPICAL GEL 100GM TUBE. TP SCH ×2 (08:48→20:40)
[2019-07-24] MEDS: HYDROmorphone 2 MG/ML VIAL IV PRN (08:48)
[2019-07-24] MEDS: NYSTATIN TOPICAL POWDER 15GM BOTTLE. TP SCH ×2 (08:48→20:39)
--- NOTE | 2019-07-24 10:14 | PDOC ---
SURGICAL PROGRESS NOTE Subjective Pt without c/o, feels better, no N/V, notes no bleeding, reports pain improved. Hungry. Vital Signs Vital Signs Date Time Temp Pulse Resp B/P (MAP) Pulse Ox O2 Delivery O2 Flow Rate FiO2 07/24/19 09:00 82 16 154/61 (92) 99 Room Air 07/24/19 09:00 98.5 98.5 I&O Intake and Output 07/24/19 07:00 Intake Total 2542.38 ml Output Total 0 ml Balance 2542.38 ml Intake Oral 0 ml IV Total 2542.38 ml Output Urine Total 0 ml General: Alert, Oriented X3, Cooperative, No acute distress Abdomen: Soft, No tenderness Labs Laboratory Tests Test 07/22/19 19:45 07/22/19 23:47 07/23/19 00:09 07/23/19 00:50 Hemoglobin 6.9 g/dL (12.0-15.5) 7.3 g/dL (12.0-15.5) Hematocrit 20.0 % (36.0-47.0) 21.3 % (36.0-47.0) Mean Corpuscular Hemoglobin Concent 35 g/dL (31-37) 34 g/dL (31-37) Glucose (Fingerstick) 68 mg/dL (70-99) 108 mg/dL (70-99) White Blood Count 5.6 x10^3/uL (4.0-11.0) Red Blood Count 2.33 x10^6/uL (3.50-5.40) Mean Corpuscular Volume 92 fL (79-100) Mean Corpuscular Hemoglobin 31 pg (25-35) Red Cell Distribution Width 15.4 % (11.5-14.5) Platelet Count 101 x10^3/uL (140-400) Test 07/23/19 04:30 07/23/19 23:31 07/24/19 00:17 07/24/19 05:00 White Blood Count 5.7 x10^3/uL (4.0-11.0) 3.9 x10^3/uL (4.0-11.0) Red Blood Count 2.47 x10^6/uL (3.50-5.40) 2.20 x10^6/uL (3.50-5.40) Hemoglobin 7.8 g/dL (12.0-15.5) 6.9 g/dL (12.0-15.5) Hematocrit 22.7 % (36.0-47.0) 20.4 % (36.0-47.0) Mean Corpuscular Volume 92 fL (79-100) 93 fL (79-100) Mean Corpuscular Hemoglobin 31 pg (25-35) 32 pg (25-35) Mean Corpuscular Hemoglobin Concent 34 g/dL (31-37) 34 g/dL (31-37) Red Cell Distribution Width 15.6 % (11.5-14.5) 16.0 % (11.5-14.5) Platelet Count 112 x10^3/uL (140-400) 103 x10^3/uL (140-400) Sodium Level 139 mmol/L (136-145) 138 mmol/L (136-145) Potassium Level 4.9 mmol/L (3.5-5.1) 4.1 mmol/L (3.5-5.1) Chloride Level 101 mmol/L (98-107) 100 mmol/L (98-107) Carbon Dioxide Level 28 mmol/L (21-32) 29 mmol/L (21-32) Anion Gap 10 (6-14) 9 (6-14) Blood Urea Nitrogen 52 mg/dL (7-20) 22 mg/dL (7-20) Creatinine 7.3 mg/dL (0.6-1.0) 4.3 mg/dL (0.6-1.0) Estimated GFR (Cockcroft-Gault) 6.8 12.5 Glucose Level 85 mg/dL (70-99) 79 mg/dL (70-99) Calcium Level 8.4 mg/dL (8.5-10.1) 8.3 mg/dL (8.5-10.1) Glucose (Fingerstick) 67 mg/dL (70-99) 89 mg/dL (70-99) Laboratory Tests Test 07/23/19 23:31 07/24/19 00:17 07/24/19 05:00 Glucose (Fingerstick) 67 mg/dL (70-99) 89 mg/dL (70-99) White Blood Count 3.9 x10^3/uL (4.0-11.0) Red Blood Count 2.20 x10^6/uL (3.50-5.40) Hemoglobin 6.9 g/dL (12.0-15.5) Hematocrit 20.4 % (36.0-47.0) Mean Corpuscular Volume 93 fL (79-100) Mean Corpuscular Hemoglobin 32 pg (25-35) Mean Corpuscular Hemoglobin Concent 34 g/dL (31-37) Red Cell Distribution Width 16.0 % (11.5-14.5) Platelet Count 103 x10^3/uL (140-400) Sodium Level 138 mmol/L (136-145) Potassium Level 4.1 mmol/L (3.5-5.1) Chloride Level 100 mmol/L (98-107) Carbon Dioxide Level 29 mmol/L (21-32) Anion Gap 9 (6-14) Blood Urea Nitrogen 22 mg/dL (7-20) Creatinine 4.3 mg/dL (0.6-1.0) Estimated GFR (Cockcroft-Gault) 12.5 Glucose Level 79 mg/dL (70-99) Calcium Level 8.3 mg/dL (8.5-10.1) Problem List Problems Medical Problems: (1) Anemia Status: Chronic (2) Cirrhosis Status: Chronic (3) ESRD (end stage renal disease) on dialysis Status: Chronic (4) Rectal bleeding Status: Acute (5) Upper GI bleed Status: Acute Assessment/Plan UGI bleed transfused again, but suspect mobilization of fluid, as clinically she appears improved. Will start clears and need to consider ADAT, once OK with GI. LILLIE TERRY MD Jul 24, 2019 10:14
--- NOTE | 2019-07-24 10:53 | PDOC ---
Subjective: Subjective: Feels better, just really hungry and wants food. Objective: Objective: Threatened to leave AMA so was given broth. No bleeding. Vital Signs: Vital Signs Date Time Temp Pulse Resp B/P (MAP) Pulse Ox O2 Delivery O2 Flow Rate FiO2 07/24/19 10:41 87 18 171/67 07/24/19 09:00 99 Room Air 07/24/19 09:00 98.5 98.5 Labs: Laboratory Tests Test 07/23/19 23:31 07/24/19 00:17 07/24/19 05:00 Glucose (Fingerstick) 67 mg/dL 89 mg/dL White Blood Count 3.9 x10^3/uL Red Blood Count 2.20 x10^6/uL Hemoglobin 6.9 g/dL Hematocrit 20.4 % Mean Corpuscular Volume 93 fL Mean Corpuscular Hemoglobin 32 pg Mean Corpuscular Hemoglobin Concent 34 g/dL Red Cell Distribution Width 16.0 % Platelet Count 103 x10^3/uL Sodium Level 138 mmol/L Potassium Level 4.1 mmol/L Chloride Level 100 mmol/L Carbon Dioxide Level 29 mmol/L Anion Gap 9 Blood Urea Nitrogen 22 mg/dL Creatinine 4.3 mg/dL Estimated GFR (Cockcroft-Gault) 12.5 Glucose Level 79 mg/dL Calcium Level 8.3 mg/dL PE: GEN: NAD, up to chair LUNGS: CTAB HEART: RRR ABD: S/ND/NT NEURO/PSYCH: A & O 3 A/P: Hematochezia/melena - resolved H/o prepyloric ulcer s/p endotherapy and IR embolization 07/01/19 - repeat EGD 07/21/29 w/ bleeding from prepyloric area w/ possible old/confined perf Chronic anemia - still needing transfusions ESRD on HD, GERD, cirrhosis (still drinks) -- Reviewed w/ Dr. Faulkner - back to NPO for EGD this afternoon. Okay to transfer out of ICU. IRIS SZYMANSKI Jul 24, 2019 10:53
[2019-07-24] MEDS ORDERED: POLYETHYLENE GLYCOL 3350 17 GM PACKET. PO PRN (11:15)
--- NOTE | 2019-07-24 11:24 | PDOC ---
Renal-Progress Notes Subjective Notes Notes FEELING BETTER History of Present Illness Hx of present illness IMPROVED Vitals Vitals Vital Signs Date Time Temp Pulse Resp B/P (MAP) Pulse Ox O2 Delivery O2 Flow Rate FiO2 07/24/19 10:41 87 18 171/67 07/24/19 10:00 99 Room Air 07/24/19 09:00 98.5 98.5 Weight Weight [ ] I.O. Intake and Output Intake and Output 07/24/19 07:00 Intake Total 2542.38 ml Output Total 0 ml Balance 2542.38 ml Intake Oral 0 ml IV Total 2542.38 ml Output Urine Total 0 ml Labs Labs Laboratory Tests Test 07/23/19 23:31 07/24/19 00:17 07/24/19 05:00 Glucose (Fingerstick) 67 mg/dL (70-99) 89 mg/dL (70-99) White Blood Count 3.9 x10^3/uL (4.0-11.0) Red Blood Count 2.20 x10^6/uL (3.50-5.40) Hemoglobin 6.9 g/dL (12.0-15.5) Hematocrit 20.4 % (36.0-47.0) Mean Corpuscular Volume 93 fL (79-100) Mean Corpuscular Hemoglobin 32 pg (25-35) Mean Corpuscular Hemoglobin Concent 34 g/dL (31-37) Red Cell Distribution Width 16.0 % (11.5-14.5) Platelet Count 103 x10^3/uL (140-400) Sodium Level 138 mmol/L (136-145) Potassium Level 4.1 mmol/L (3.5-5.1) Chloride Level 100 mmol/L (98-107) Carbon Dioxide Level 29 mmol/L (21-32) Anion Gap 9 (6-14) Blood Urea Nitrogen 22 mg/dL (7-20) Creatinine 4.3 mg/dL (0.6-1.0) Estimated GFR (Cockcroft-Gault) 12.5 Glucose Level 79 mg/dL (70-99) Calcium Level 8.3 mg/dL (8.5-10.1) Review of Systems Constitutional: yes: alert, oriented Ears/Nose/Throat: Yes: no symptom reported Cardiovascular: Yes no symptom reported Gastrointestional: Yes: abdominal pain Genitourinary: Yes: no symptom reported Musculoskeletal: Yes: no symptom reported Skin: Yes no symptom reported Psychiatric/Neurological: Yes: no symptom reported Endocrine: Yes: no symptom reported Physical Exam General Appearance: no apparent distress Skin: warm Respiratory: bilateral CTA Heart: S1S2, RRR Abdomen: soft, bowel sounds present Extremities: pulses present Neurology: alert, oriented Assessment Assessment IMP HYPERKALEMIA-RESOLVED ANEMIA WITH GI BLEED ESRD-TTS HTN PLAN ARANESP HD TOMORROW PRBC NEEDED GI EVAL AND TX WILL FOLLOW LINNEA SHULTZ MD Jul 24, 2019 11:24
[2019-07-24] MEDS: CARVEDILOL 12.5 MG TABLET. PO SCH ×2 (12:00→15:59)
[2019-07-24] MEDS: CALCIUM ACETATE 667 MG CAPSULE PO SCH ×2 (12:00→15:59)
[2019-07-24] MEDS: FOLIC ACID 1 MG TABLET. PO SCH (12:00)
[2019-07-24] MEDS: LACTOBACILLUS RHAMNOSUS GG 1 CAPSULE. PO SCH ×2 (12:00→20:39)
[2019-07-24] MEDS: FOLIC/VIT B COMP W-C (RENAL) TABLET. PO SCH (12:00)
--- NOTE | 2019-07-24 12:16 | PDOC ---
[facility] [facility] PROGRESS NOTE Chief Complaint Chief Complaint Upper GI bleed Hematemesis ESRD Obesity Cirrhosis History of Present Illness History of Present Illness 07/24/19 Pt was seen and examined in the ICU Pt was watching television while in chair Pt is scheduled for an EGD at 3pm today Charts and labs reviewed WBC is 3.9, down from 5.7 Hb is 6.9, down from 7.8 BUN is 22, down from 52 Cr is 4.3, down from 22 D/w RN 07/23/19 Pt was seen and examined in the ICU Pt was sitting up in chair and watching television Asked if she could have chicken broth EPI RN Had occult blood in stool; needs to be kept NPO Approved transfer to medical floor 07/22/19 Pt was seen and examined in the ICU Was alert but weak EPI RN No bleeding as of today Says that she drinks 2 shots of whiskey everyday Vitals/I&O Vitals/I&O: Vital Signs Date Time Temp Pulse Resp B/P (MAP) Pulse Ox O2 Delivery O2 Flow Rate FiO2 07/24/19 10:41 87 18 171/67 07/24/19 10:00 99 Room Air 07/24/19 09:00 98.5 98.5 I & O 0 07/23/19 07/23/19 07/24/19 15:00 23:00 07:00 Intake Total 0 ml 0 ml 2542.38 ml Output Total 0 ml 0 ml 0 ml Balance 0 ml 0 ml 2542.38 ml Physical Exam Physical Exam: General Appearance: no apparent distress Skin: warm Respiratory: bilateral CTA Heart: S1S2, RRR Abdomen: soft, bowel sounds present Extremities: pulses present Neurology: alert, oriented General: Alert, Oriented X3, Cooperative, No acute distress Heart: Regular rate, Normal S1, Normal S2 Lungs: Clear Abdomen: Soft, No tenderness Extremities: No clubbing, No cyanosis Skin: No rashes, No breakdown Labs Labs: Laboratory Tests Test 07/23/19 23:31 07/24/19 00:17 07/24/19 05:00 Glucose (Fingerstick) 67 mg/dL (70-99) 89 mg/dL (70-99) White Blood Count 3.9 x10^3/uL (4.0-11.0) Red Blood Count 2.20 x10^6/uL (3.50-5.40) Hemoglobin 6.9 g/dL (12.0-15.5) Hematocrit 20.4 % (36.0-47.0) Mean Corpuscular Volume 93 fL (79-100) Mean Corpuscular Hemoglobin 32 pg (25-35) Mean Corpuscular Hemoglobin Concent 34 g/dL (31-37) Red Cell Distribution Width 16.0 % (11.5-14.5) Platelet Count 103 x10^3/uL (140-400) Sodium Level 138 mmol/L (136-145) Potassium Level 4.1 mmol/L (3.5-5.1) Chloride Level 100 mmol/L (98-107) Carbon Dioxide Level 29 mmol/L (21-32) Anion Gap 9 (6-14) Blood Urea Nitrogen 22 mg/dL (7-20) Creatinine 4.3 mg/dL (0.6-1.0) Estimated GFR (Cockcroft-Gault) 12.5 Glucose Level 79 mg/dL (70-99) Calcium Level 8.3 mg/dL (8.5-10.1) Review of Systems Review of Systems: Pt denies CHU Pt denies fever Assessment and Plan Assessmemt and Plan Problems Medical Problems: (1) Anemia Status: Chronic (2) Cirrhosis Status: Chronic (3) ESRD (end stage renal disease) on dialysis Status: Chronic (4) Rectal bleeding Status: Acute (5) Upper GI bleed Status: Acute Assessment Upper GI bleed Cirrhosis ESRD Anemia Rectal bleeding Plan ICU monitoring Trend Hgb EtOH cessation NPO per GI HD per Nephro Home meds reconciled Continue monitoring Discharge when approved by GI Comment Review of Relevant I have reviewed the following items tamika (where applicable) has been applied. Medications: Current Medications Medications (Trade) Dose Ordered Sig/Kimberly Route PRN Reason Start Time Stop Time Status Last Admin Dose Admin Diclofenac Sodium (Voltaren) 1 leonila BID TP 07/23/19 21:00 07/24/19 08:48 Hydromorphone HCl (Dilaudid) 0.5 mg PRN Q1HR PRN IV pain 07/23/19 19:00 07/24/19 08:48 VIKAS GAMEZ III DO Jul 24, 2019 12:16
[2019-07-24] MEDS: MORPHINE SULFATE 2 MG/ML VIAL. IV PRN (12:56)
[2019-07-24] MEDS ORDERED: PROPOFOL 20 ML IV ONE (14:44)
[2019-07-24] MEDS ORDERED: IV NORMAL SALINE 1000ML BAG 1,000 ML IV SCH (14:45)
--- NOTE | 2019-07-24 15:01 | PDOC4 ---
PROCEDURE Procedure EGD/biopsies Indication: recurrent UGI bleeding/source unclear Meds: per anesthesia Findings: E--Healed reflux at 39 cm. G--clean-based ulcer, prepyloric in same location as last times. Biopsied rim, though appears w/o mass. Pylorus deformed, but passable. D--normal to second portion. Obdulio. well. IMP: Refractory ulcer, biopsies pending. Healed reflux. REC: Await biopsies. PO PPI bid. Would not go above full liquids this weekend. Seems ulcer will not be dealt with medically. Reconsider OR? Off the weekend. Dr. Jain covering. HAYDER MARLOW MD Jul 24, 2019 15:01
[2019-07-24] MEDS: PANTOPRAZOLE 40 MG TABLET.DR. PO SCH (15:59)
[2019-07-24] MEDS: HYDROcodone/APAP 5/325MG 1 TAB TABLET PO PRN ×2 (16:00→23:21)
[2019-07-24] MEDS ORDERED: diphenhydrAMINE HCL 25 MG CAPSULE PO PRN (21:15)
[2019-07-25] MEDS: IV RINGERS,LACTATED 1000ML 1,000 ML IV SCH ×2 (00:45→04:05)
[2019-07-25 03:00] VITALS: BP 114/50
[2019-07-25 05:41] LABS: BASO % 1 % (0-3); EOS # 0.1 x10^3/uL (0.0-0.7); EOS % 4 % (0-3); HEMATOCRIT 22.5 % (36.0-47.0); HEMOGLOBIN 7.6 g/dL (12.0-15.5); LYMPH # 0.7 x10^3/uL (1.0-4.8); LYMPH % 29 % (24-48); MEAN CORPUSCULAR HEMOGLOBIN 30 pg (25-35); MEAN CORPUSCULAR HGB CONC 34 g/dL (31-37); MEAN CORPUSCULAR VOLUME 91 fL (79-100); MONO # 0.3 x10^3/uL (0.0-1.1); MONO % 14 % (0-9); NEUT # 1.3 x10^3/uL (1.8-7.7); NEUT % 52 % (31-73); PLATELET COUNT 93 x10^3/uL (140-400); RED BLOOD COUNT 2.48 x10^6/uL (3.50-5.40); WHITE BLOOD COUNT 2.5 x10^3/uL (4.0-11.0)
[2019-07-25 05:57] LABS: CALCIUM 8.2 mg/dL (8.5-10.1); CREATININE 5.3 mg/dL (0.6-1.0); GFR 9.8; POTASSIUM 4.2 mmol/L (3.5-5.1)
[2019-07-25] MEDS: PANTOPRAZOLE 40 MG TABLET.DR. PO SCH ×2 (06:57→16:36)
[2019-07-25 07:00] VITALS: BP 199/51
[2019-07-25] MEDS ORDERED: PANTOPRAZOLE 40 MG TABLET.DR. PO SCH (07:30)
[2019-07-25] MEDS: CALCIUM ACETATE 667 MG CAPSULE PO SCH ×3 (08:00→17:00)
[2019-07-25] MEDS: HYDROcodone/APAP 5/325MG 1 TAB TABLET PO PRN ×3 (08:14→21:17)
[2019-07-25] MEDS ORDERED: DIALYSIS PATIENT. MC PRN ×2 (08:15)
--- NOTE | 2019-07-25 08:52 | PDOC ---
PROGRESS NOTES Chief Complaint Chief Complaint Upper GI bleed Hematemesis ESRD Obesity Cirrhosis History of Present Illness History of Present Illness 07/25/19 IMPRESSION Pt was seen and examined bedside Pt was watching television EGD 07/24 Charts and labs reviewed WBC is 3.9, down from 5.7 Hb is 7.6 D/w RN 38 MIN PT EXAM, CHART REVIEW, > 50% OF TIME SPENT WITH EXAM, CHART REVIEW, PT CARE COORDINATION 07/23/19 Pt was seen and examined in the ICU Pt was sitting up in chair and watching television Asked if she could have chicken broth DW RN Had occult blood in stool; needs to be kept NPO Approved transfer to medical floor 07/22/19 Pt was seen and examined in the ICU Was alert but weak EPI RN No bleeding as of today Says that she drinks 2 shots of whiskey everyday Procedure EGD/biopsies Indication: recurrent UGI bleeding/source unclear Meds: per anesthesia Findings: E--Healed reflux at 39 cm. G--clean-based ulcer, prepyloric in same location as last times. Biopsied rim, though appears w/o mass. Pylorus deformed, but passable. D--normal to second portion. Obdulio. well. IMP: Refractory ulcer, biopsies pending. Healed reflux. REC: Await biopsies. PO PPI bid. Would not go above full liquids this weekend. Seems ulcer will not be dealt with medically. Reconsider OR? surgery consulted Vitals Vitals Vital Signs Date Time Temp Pulse Resp B/P (MAP) Pulse Ox O2 Delivery O2 Flow Rate FiO2 07/25/19 08:14 20 94 Room Air 07/25/19 07:00 98.0 71 199/51 (100) 98.0 07/24/19 20:00 2.0 Physical Exam Physical Exam General Appearance: no apparent distress Skin: warm Respiratory: bilateral CTA Heart: S1S2, RRR Abdomen: soft, bowel sounds present Extremities: pulses present Neurology: alert, oriented General: Alert, Oriented X3, Cooperative, No acute distress Heart: Regular rate, Normal S1, Normal S2 Lungs: Clear Abdomen: Soft, No tenderness Extremities: No clubbing, No cyanosis Skin: No rashes, No breakdown Labs LABS Laboratory Tests Test 07/24/19 16:50 07/24/19 20:36 07/25/19 04:43 07/25/19 07:39 Glucose (Fingerstick) 103 mg/dL (70-99) 127 mg/dL (70-99) 108 mg/dL (70-99) White Blood Count 2.5 x10^3/uL (4.0-11.0) Red Blood Count 2.48 x10^6/uL (3.50-5.40) Hemoglobin 7.6 g/dL (12.0-15.5) Hematocrit 22.5 % (36.0-47.0) Mean Corpuscular Volume 91 fL (79-100) Mean Corpuscular Hemoglobin 30 pg (25-35) Mean Corpuscular Hemoglobin Concent 34 g/dL (31-37) Red Cell Distribution Width 17.0 % (11.5-14.5) Platelet Count 93 x10^3/uL (140-400) Neutrophils (%) (Auto) 52 % (31-73) Lymphocytes (%) (Auto) 29 % (24-48) Monocytes (%) (Auto) 14 % (0-9) Eosinophils (%) (Auto) 4 % (0-3) Basophils (%) (Auto) 1 % (0-3) Neutrophils # (Auto) 1.3 x10^3/uL (1.8-7.7) Lymphocytes # (Auto) 0.7 x10^3/uL (1.0-4.8) Monocytes # (Auto) 0.3 x10^3/uL (0.0-1.1) Eosinophils # (Auto) 0.1 x10^3/uL (0.0-0.7) Basophils # (Auto) 0.0 x10^3/uL (0.0-0.2) Sodium Level 138 mmol/L (136-145) Potassium Level 4.2 mmol/L (3.5-5.1) Chloride Level 103 mmol/L (98-107) Carbon Dioxide Level 29 mmol/L (21-32) Anion Gap 6 (6-14) Blood Urea Nitrogen 25 mg/dL (7-20) Creatinine 5.3 mg/dL (0.6-1.0) Estimated GFR (Cockcroft-Gault) 9.8 Glucose Level 100 mg/dL (70-99) Calcium Level 8.2 mg/dL (8.5-10.1) Assessment and Plan Assessmemt and Plan Problems Medical Problems: (1) Anemia Status: Chronic (2) Cirrhosis Status: Chronic (3) ESRD (end stage renal disease) on dialysis Status: Chronic (4) Rectal bleeding Status: Acute (5) Upper GI bleed Status: Acute Comment Review of Relevant I have reviewed the following items tamika (where applicable) has been applied. Labs Laboratory Tests Test 07/23/19 23:31 07/24/19 00:17 07/24/19 05:00 07/24/19 16:50 Glucose (Fingerstick) 67 mg/dL (70-99) 89 mg/dL (70-99) 103 mg/dL (70-99) White Blood Count 3.9 x10^3/uL (4.0-11.0) Red Blood Count 2.20 x10^6/uL (3.50-5.40) Hemoglobin 6.9 g/dL (12.0-15.5) Hematocrit 20.4 % (36.0-47.0) Mean Corpuscular Volume 93 fL (79-100) Mean Corpuscular Hemoglobin 32 pg (25-35) Mean Corpuscular Hemoglobin Concent 34 g/dL (31-37) Red Cell Distribution Width 16.0 % (11.5-14.5) Platelet Count 103 x10^3/uL (140-400) Sodium Level 138 mmol/L (136-145) Potassium Level 4.1 mmol/L (3.5-5.1) Chloride Level 100 mmol/L (98-107) Carbon Dioxide Level 29 mmol/L (21-32) Anion Gap 9 (6-14) Blood Urea Nitrogen 22 mg/dL (7-20) Creatinine 4.3 mg/dL (0.6-1.0) Estimated GFR (Cockcroft-Gault) 12.5 Glucose Level 79 mg/dL (70-99) Calcium Level 8.3 mg/dL (8.5-10.1) Test 07/24/19 20:36 07/25/19 04:43 07/25/19 07:39 Glucose (Fingerstick) 127 mg/dL (70-99) 108 mg/dL (70-99) White Blood Count 2.5 x10^3/uL (4.0-11.0) Red Blood Count 2.48 x10^6/uL (3.50-5.40) Hemoglobin 7.6 g/dL (12.0-15.5) Hematocrit 22.5 % (36.0-47.0) Mean Corpuscular Volume 91 fL (79-100) Mean Corpuscular Hemoglobin 30 pg (25-35) Mean Corpuscular Hemoglobin Concent 34 g/dL (31-37) Red Cell Distribution Width 17.0 % (11.5-14.5) Platelet Count 93 x10^3/uL (140-400) Neutrophils (%) (Auto) 52 % (31-73) Lymphocytes (%) (Auto) 29 % (24-48) Monocytes (%) (Auto) 14 % (0-9) Eosinophils (%) (Auto) 4 % (0-3) Basophils (%) (Auto) 1 % (0-3) Neutrophils # (Auto) 1.3 x10^3/uL (1.8-7.7) Lymphocytes # (Auto) 0.7 x10^3/uL (1.0-4.8) Monocytes # (Auto) 0.3 x10^3/uL (0.0-1.1) Eosinophils # (Auto) 0.1 x10^3/uL (0.0-0.7) Basophils # (Auto) 0.0 x10^3/uL (0.0-0.2) Sodium Level 138 mmol/L (136-145) Potassium Level 4.2 mmol/L (3.5-5.1) Chloride Level 103 mmol/L (98-107) Carbon Dioxide Level 29 mmol/L (21-32) Anion Gap 6 (6-14) Blood Urea Nitrogen 25 mg/dL (7-20) Creatinine 5.3 mg/dL (0.6-1.0) Estimated GFR (Cockcroft-Gault) 9.8 Glucose Level 100 mg/dL (70-99) Calcium Level 8.2 mg/dL (8.5-10.1) Laboratory Tests Test 07/24/19 16:50 07/24/19 20:36 07/25/19 04:43 07/25/19 07:39 Glucose (Fingerstick) 103 mg/dL (70-99) 127 mg/dL (70-99) 108 mg/dL (70-99) White Blood Count 2.5 x10^3/uL (4.0-11.0) Red Blood Count 2.48 x10^6/uL (3.50-5.40) Hemoglobin 7.6 g/dL (12.0-15.5) Hematocrit 22.5 % (36.0-47.0) Mean Corpuscular Volume 91 fL (79-100) Mean Corpuscular Hemoglobin 30 pg (25-35) Mean Corpuscular Hemoglobin Concent 34 g/dL (31-37) Red Cell Distribution Width 17.0 % (11.5-14.5) Platelet Count 93 x10^3/uL (140-400) Neutrophils (%) (Auto) 52 % (31-73) Lymphocytes (%) (Auto) 29 % (24-48) Monocytes (%) (Auto) 14 % (0-9) Eosinophils (%) (Auto) 4 % (0-3) Basophils (%) (Auto) 1 % (0-3) Neutrophils # (Auto) 1.3 x10^3/uL (1.8-7.7) Lymphocytes # (Auto) 0.7 x10^3/uL (1.0-4.8) Monocytes # (Auto) 0.3 x10^3/uL (0.0-1.1) Eosinophils # (Auto) 0.1 x10^3/uL (0.0-0.7) Basophils # (Auto) 0.0 x10^3/uL (0.0-0.2) Sodium Level 138 mmol/L (136-145) Potassium Level 4.2 mmol/L (3.5-5.1) Chloride Level 103 mmol/L (98-107) Carbon Dioxide Level 29 mmol/L (21-32) Anion Gap 6 (6-14) Blood Urea Nitrogen 25 mg/dL (7-20) Creatinine 5.3 mg/dL (0.6-1.0) Estimated GFR (Cockcroft-Gault) 9.8 Glucose Level 100 mg/dL (70-99) Calcium Level 8.2 mg/dL (8.5-10.1) Medications Current Medications Morphine Sulfate (Morphine Sulfate) 2 mg PRN Q15MIN PRN IV/SQ PAIN GREATER THAN 3/10 Last administered on 07/21/19at 09:46; Start 07/21/19 at 08:30; Stop 07/21/19 at 12:07; Status DC Pantoprazole Sodium (PROTONIX VIAL for IV PUSH) 40 mg 1X ONCE IVP Last administered on 07/21/19at 09:18; Start 07/21/19 at 08:30; Stop 07/21/19 at 08:32; Status DC Ondansetron HCl (Zofran) 4 mg 1X ONCE IV Last administered on 07/21/19at 09:46; Start 07/21/19 at 09:45; Stop 07/21/19 at 09:46; Status DC Pantoprazole Sodium 80 mg/ Sodium Chloride 100 ml @ 10 mls/hr Q10H IV Last administered on 07/24/19at 05:11; Start 07/21/19 at 09:45; Stop 07/24/19 at 15:05; Status DC Heparin Sodium (Porcine) (HEPARIN for NUC MED) 100 unit 1X ONCE IV ; Start 07/21/19 at 11:00; Stop 07/21/19 at 11:01; Status DC Sodium Chloride 1,000 ml @ 1,000 mls/hr Q1H PRN IV hypotension; Start 07/21/19 at 11:47; Stop 07/21/19 at 17:46; Status DC Info (PHARMACY MONITORING -- do not chart) 1 each PRN DAILY PRN MC SEE COMMENTS; Start 07/21/19 at 12:00; Stop 07/21/19 at 12:12; Status DC Info (PHARMACY MONITORING -- do not chart) 1 each PRN DAILY PRN MC SEE COMMENTS; Start 07/21/19 at 12:00 Morphine Sulfate (Morphine Sulfate) 2 mg PRN Q2HR PRN IV PAIN, 2ND CHOICE Last administered on 07/24/19at 12:56; Start 07/21/19 at 12:15 Ondansetron HCl (Zofran) 4 mg PRN Q6HRS PRN IV NAUSEA/VOMITING; Start 07/21/19 at 12:15 Ondansetron HCl (Zofran) 4 mg PRN Q8HRS PRN IV NAUSEA/VOMITING; Start 07/21/19 at 12:15; Stop 07/22/19 at 12:14; Status DC Darbepoetin [place] (ARANESP for DIALYSIS PTS) 60 mcg WEEKLYHS SQ Last administered on 07/21/19at 22:15; Start 07/21/19 at 21:00 Ringer's Solution 1,000 ml @ 100 mls/hr Q10H IV Last administered on 07/24/19at 00:38; Start 07/21/19 at 16:45; Stop 07/25/19 at 07:57; Status DC Midazolam HCl (Versed) 5 mg STK-MED ONCE .ROUTE ; Start 07/21/19 at 17:14; Stop 07/21/19 at 17:14; Status DC Fentanyl Citrate (Fentanyl 2ml Vial) 100 mcg STK-MED ONCE .ROUTE ; Start 07/21/19 at 17:14; Stop 07/21/19 at 17:14; Status DC Midazolam HCl (Versed) 5 mg STK-MED ONCE IV Last administered on 07/21/19at 17:37; Start 07/21/19 at 17:35; Stop 07/21/19 at 17:37; Status DC Fentanyl Citrate (Fentanyl 2ml Vial) 100 mcg STK-MED ONCE IV Last administered on 07/21/19at 17:37; Start 07/21/19 at 17:35; Stop 07/21/19 at 17:37; Status DC Midazolam HCl (Versed) 5 mg STK-MED ONCE IV Last administered on 07/21/19at 17:39; Start 07/21/19 at 17:37; Stop 07/21/19 at 17:39; Status DC Fentanyl Citrate (Fentanyl 2ml Vial) 100 mcg STK-MED ONCE IV Last administered on 07/21/19at 17:40; Start 07/21/19 at 17:38; Stop 07/21/19 at 17:40; Status DC Dextrose (Dextrose 50%-Water Syringe) 12.5 gm PRN Q15MIN PRN IV SEE COMMENTS Last administered on 07/23/19at 23:39; Start 07/21/19 at 18:45 Dextrose 250 ml PRN Q15MIN PRN IV SEE COMMENTS; Start 07/21/19 at 18:45 Hydromorphone HCl (Dilaudid) 1 mg PRN Q3HRS PRN IV PAIN, 1ST CHOICE Last administered on 07/23/19at 00:21; Start 07/21/19 at 21:45; Stop 07/23/19 at 18:58; Status DC Nystatin (Nystop) 1 leonila BID TP Last administered on 07/24/19at 20:39; Start 07/22/19 at 12:00 Sodium Chloride 1,000 ml @ 1,000 mls/hr Q1H PRN IV hypotension; Start 07/23/19 at 10:56; Stop 07/23/19 at 16:55; Status DC Sodium Chloride 1,000 ml @ 400 mls/hr Q2H30M PRN IV PATENCY; Start 07/23/19 at 10:56; Stop 07/23/19 at 22:55; Status DC Info (PHARMACY MONITORING -- do not chart) 1 each PRN DAILY PRN MC SEE COMMENTS; Start 07/23/19 at 11:00; Status UNV Info (PHARMACY MONITORING -- do not chart) 1 each PRN DAILY PRN MC SEE COMMENTS; Start 07/23/19 at 11:00; Status Cancel Diclofenac Sodium (Voltaren) 1 leonila BID TP Last administered on 07/24/19at 08:48; Start 07/23/19 at 21:00 Hydromorphone HCl (Dilaudid) 0.5 mg PRN Q1HR PRN IV pain Last administered on 07/24/19at 08:48; Start 07/23/19 at 19:00 Folic Acid (Folic Acid) 1 mg DAILY PO ; Start 07/24/19 at 12:00 Vitamin B Complex/ Vitamin C (Yara-Edward) 1 tab DAILY PO ; Start 07/24/19 at 12:00 Acetaminophen/ Hydrocodone Bitart (Lortab 5/325) 1 tab PRN Q6HRS PRN PO PAIN Last administered on 07/25/19at 08:14; Start 07/24/19 at 11:15 Lactobacillus Rhamnosus (Culturelle) 1 cap BID PO Last administered on 07/24/19at 20:39; Start 07/24/19 at 12:00 Pantoprazole Sodium (Protonix) 40 mg DAILYAC PO ; Start 07/25/19 at 07:30; Status UNV Polyethylene Glycol (miraLAX PACKET) 17 gm PRN DAILY PRN PO CONSTIPATION; Start 07/24/19 at 11:15 Calcium Acetate (Phoslo) 667 mg TIDWMEALS PO Last administered on 07/24/19at 15:59; Start 07/24/19 at 12:00 Carvedilol (Coreg) 25 mg BIDWMEALS PO Last administered on 07/24/19at 15:59; Start 07/24/19 at 12:00 Ringer's Solution 1,000 ml @ 75 mls/hr [id number] IV ; Start 07/24/19 at 14:45; Stop 07/25/19 at 07:57; Status DC Propofol 20 ml @ As Directed STK-MED ONCE IV ; Start 07/24/19 at 14:44; Stop 07/24/19 at 14:44; Status DC Sodium Chloride 1,000 ml @ 30 mls/hr Q24H IV Last administered on 07/24/19at 14:47; Start 07/24/19 at 14:45; Stop 07/25/19 at 07:57; Status DC Pantoprazole Sodium (Protonix) 40 mg BIDAC PO Last administered on 07/25/19at 06:57; Start 07/24/19 at 16:30 Diphenhydramine HCl (Benadryl) 50 mg PRN QHS PRN PO INSOMNIA; Start 07/24/19 at 21:15 Info (PHARMACY MONITORING -- do not chart) 1 each PRN DAILY PRN MC SEE COMMENTS; Start 07/25/19 at 08:15 Info (PHARMACY MONITORING -- do not chart) 1 each PRN DAILY PRN MC SEE COMMENTS; Start 07/25/19 at 08:15; Status UNV Active Scripts Active Hydrocodone-Apap 5-325 (Hydrocodone Bit/Acetaminophen) 1 Tab Tablet 1 Tab PO PRN Q6HRS PRN 6 Days Pantoprazole Sodium (Pantoprazole Sodium) 40 Mg Tablet.dr 40 Mg PO DAILYAC 30 Days Culturelle (Lactobacillus Rhamnosus Gg) 1 Each Cap.sprink 1 Cap PO BID 14 Days Reported Nephro-Edward Tablet (Folic Acid/Vitamin B Comp W-C) 0.8 Mg Tablet 1 Tab PO DAILY Calcium Acetate 667 Mg Tablet 667 Mg PO TIDWMEALS Carvedilol 25 Mg Tablet 25 Mg PO BID Folic Acid 1 Mg Tablet 1 Mg PO DAILY Miralax (Polyethylene Glycol 3350) 17 Gm Powd.pack 1 Packet PO PRN DAILY PRN Vitals/I & O Vital Sign - Last 24 Hours 07/24/19 07/24/19 07/24/19 07/24/19 09:00 09:00 10:00 10:41 Temp 98.5 98.5 Pulse 85 82 84 87 Resp 16 16 16 18 B/P (MAP) 154/61 154/61 (92) 171/67 (101) 171/67 Pulse Ox 99 99 O2 Delivery Room Air Room Air 07/24/19 07/24/19 07/24/19 07/24/19 12:00 12:56 13:33 14:13 Temp 98.5 98.5 Pulse 72 Resp 18 B/P (MAP) 139/66 (90) Pulse Ox 100 O2 Delivery Room Air Room Air Room Air Room Air 07/24/19 07/24/19 07/24/19 07/24/19 14:34 14:34 14:57 15:12 Temp 98.7 98.8 98.7 98.8 Pulse 84 83 84 Resp 18 18 18 B/P (MAP) 125/62 136/66 Pulse Ox 99 100 100 O2 Delivery Room Air Room Air Nasal Cannula O2 Flow Rate 2.0 3 3 07/24/19 07/24/19 07/24/19 07/24/19 15:19 15:59 16:00 17:27 Pulse 86 86 Resp 18 B/P (MAP) 148/68 148/68 Pulse Ox 98 O2 Delivery Room Air Room Air Room Air 07/24/19 07/24/19 07/24/19 07/24/19 19:00 20:00 23:00 23:21 Temp 98.4 98.4 98.4 98.4 Pulse 68 68 Resp 18 18 20 B/P (MAP) 119/58 (78) 114/43 (66) Pulse Ox 97 94 97 O2 Delivery Room Air Room Air Room Air Room Air O2 Flow Rate 2.0 07/25/19 07/25/19 07/25/19 07/25/19 00:21 03:00 07:00 08:14 Temp 98.4 98.0 98.4 98.0 Pulse 71 Resp 16 18 18 20 B/P (MAP) 114/50 (71) 199/51 (100) Pulse Ox 94 94 92 94 O2 Delivery Room Air Room Air Room Air Room Air Intake and Output 07/24/19 07/24/19 07/25/19 14:59 22:59 06:59 Intake Total 515 ml 250 ml 120 ml Output Total 0 ml 0 ml Balance 515 ml 250 ml 120 ml ASHIA MOSS MD Jul 25, 2019 08:52
--- NOTE | 2019-07-25 11:21 | PDOC ---
GI PROGRESS NOTES Date Date/Time DATE: 07/25/19 TIME: 11:17 Subjective Subjective in dialysis feels alittle better tolerating diet EGD yesterday- no further bleeding but persistant ulcer Objective Vitals Vital Signs Date Time Temp Pulse Resp B/P (MAP) Pulse Ox O2 Delivery O2 Flow Rate FiO2 07/25/19 08:14 20 94 Room Air 07/25/19 07:00 98.0 71 18 199/51 (100) 92 Room Air 98.0 07/25/19 03:00 98.4 18 114/50 (71) 94 Room Air 98.4 07/25/19 00:21 16 94 Room Air 07/24/19 23:21 20 97 Room Air 07/24/19 23:00 98.4 68 18 114/43 (66) 94 Room Air 98.4 07/24/19 20:00 Room Air 2.0 07/24/19 19:00 98.4 68 18 119/58 (78) 97 Room Air 98.4 07/24/19 17:27 Room Air 07/24/19 16:00 Room Air 07/24/19 15:59 86 148/68 07/24/19 15:19 86 18 148/68 98 Room Air 07/24/19 15:12 84 18 136/66 100 Nasal Cannula 3 07/24/19 14:57 98.8 83 18 125/62 100 Room Air 3 98.8 07/24/19 14:34 98.7 84 18 99 98.7 07/24/19 14:34 Room Air 2.0 07/24/19 14:13 Room Air 07/24/19 13:33 Room Air 07/24/19 12:56 Room Air 07/24/19 12:00 98.5 72 18 139/66 (90) 100 Room Air 98.5 Labs Labs Laboratory Tests Test 07/24/19 16:50 07/24/19 20:36 07/25/19 04:43 07/25/19 07:39 Glucose (Fingerstick) 103 mg/dL (70-99) 127 mg/dL (70-99) 108 mg/dL (70-99) White Blood Count 2.5 x10^3/uL (4.0-11.0) Red Blood Count 2.48 x10^6/uL (3.50-5.40) Hemoglobin 7.6 g/dL (12.0-15.5) Hematocrit 22.5 % (36.0-47.0) Mean Corpuscular Volume 91 fL (79-100) Mean Corpuscular Hemoglobin 30 pg (25-35) Mean Corpuscular Hemoglobin Concent 34 g/dL (31-37) Red Cell Distribution Width 17.0 % (11.5-14.5) Platelet Count 93 x10^3/uL (140-400) Neutrophils (%) (Auto) 52 % (31-73) Lymphocytes (%) (Auto) 29 % (24-48) Monocytes (%) (Auto) 14 % (0-9) Eosinophils (%) (Auto) 4 % (0-3) Basophils (%) (Auto) 1 % (0-3) Neutrophils # (Auto) 1.3 x10^3/uL (1.8-7.7) Lymphocytes # (Auto) 0.7 x10^3/uL (1.0-4.8) Monocytes # (Auto) 0.3 x10^3/uL (0.0-1.1) Eosinophils # (Auto) 0.1 x10^3/uL (0.0-0.7) Basophils # (Auto) 0.0 x10^3/uL (0.0-0.2) Sodium Level 138 mmol/L (136-145) Potassium Level 4.2 mmol/L (3.5-5.1) Chloride Level 103 mmol/L (98-107) Carbon Dioxide Level 29 mmol/L (21-32) Anion Gap 6 (6-14) Blood Urea Nitrogen 25 mg/dL (7-20) Creatinine 5.3 mg/dL (0.6-1.0) Estimated GFR (Cockcroft-Gault) 9.8 Glucose Level 100 mg/dL (70-99) Calcium Level 8.2 mg/dL (8.5-10.1) Physical Exam Physical Exam chest- clear cor- RRR abd- soft NON tender good bowel sounds Assessment Assessment recurrent no healing pre-pyloric gastric ulcer- with negative bx in Oct,. and IR embolization a few weeks ago for recurrent bleeding from ulcer- Hgb stable today- awaiting repeat bx results- looking for other reasons for poor healing ulcer- but clearly chronic med issues, ESRD, cirrhosis, alcohol and non compliance high on the list Plan Plan continue present plans CARLOS MCCALL MD Jul 25, 2019 11:21
--- NOTE | 2019-07-25 12:37 | PDOC ---
JUAN RAMON AARON VESSEL LINER 07/25/19 1237: SURGICAL PROGRESS NOTE Subjective back from dialysis ate some liquids Vital Signs Vital Signs Date Time Temp Pulse Resp B/P (MAP) Pulse Ox O2 Delivery O2 Flow Rate FiO2 07/25/19 08:14 20 94 Room Air 07/25/19 07:00 98.0 71 199/51 (100) 98.0 07/24/19 20:00 2.0 I&O Intake and Output 07/25/19 07:00 Intake Total 885 ml Output Total 0 ml Balance 885 ml Intake Oral 420 ml IV Total 100 ml Blood Product IV Normal Saline Flush 365 ml Output Urine Total 0 ml General: Alert, Oriented X3, Cooperative, No acute distress Abdomen: Soft, Other (ND) Labs Laboratory Tests Test 07/23/19 23:31 07/24/19 00:17 07/24/19 05:00 07/24/19 16:50 Glucose (Fingerstick) 67 mg/dL (70-99) 89 mg/dL (70-99) 103 mg/dL (70-99) White Blood Count 3.9 x10^3/uL (4.0-11.0) Red Blood Count 2.20 x10^6/uL (3.50-5.40) Hemoglobin 6.9 g/dL (12.0-15.5) Hematocrit 20.4 % (36.0-47.0) Mean Corpuscular Volume 93 fL (79-100) Mean Corpuscular Hemoglobin 32 pg (25-35) Mean Corpuscular Hemoglobin Concent 34 g/dL (31-37) Red Cell Distribution Width 16.0 % (11.5-14.5) Platelet Count 103 x10^3/uL (140-400) Sodium Level 138 mmol/L (136-145) Potassium Level 4.1 mmol/L (3.5-5.1) Chloride Level 100 mmol/L (98-107) Carbon Dioxide Level 29 mmol/L (21-32) Anion Gap 9 (6-14) Blood Urea Nitrogen 22 mg/dL (7-20) Creatinine 4.3 mg/dL (0.6-1.0) Estimated GFR (Cockcroft-Gault) 12.5 Glucose Level 79 mg/dL (70-99) Calcium Level 8.3 mg/dL (8.5-10.1) Test 07/24/19 20:36 07/25/19 04:43 07/25/19 07:39 Glucose (Fingerstick) 127 mg/dL (70-99) 108 mg/dL (70-99) White Blood Count 2.5 x10^3/uL (4.0-11.0) Red Blood Count 2.48 x10^6/uL (3.50-5.40) Hemoglobin 7.6 g/dL (12.0-15.5) Hematocrit 22.5 % (36.0-47.0) Mean Corpuscular Volume 91 fL (79-100) Mean Corpuscular Hemoglobin 30 pg (25-35) Mean Corpuscular Hemoglobin Concent 34 g/dL (31-37) Red Cell Distribution Width 17.0 % (11.5-14.5) Platelet Count 93 x10^3/uL (140-400) Neutrophils (%) (Auto) 52 % (31-73) Lymphocytes (%) (Auto) 29 % (24-48) Monocytes (%) (Auto) 14 % (0-9) Eosinophils (%) (Auto) 4 % (0-3) Basophils (%) (Auto) 1 % (0-3) Neutrophils # (Auto) 1.3 x10^3/uL (1.8-7.7) Lymphocytes # (Auto) 0.7 x10^3/uL (1.0-4.8) Monocytes # (Auto) 0.3 x10^3/uL (0.0-1.1) Eosinophils # (Auto) 0.1 x10^3/uL (0.0-0.7) Basophils # (Auto) 0.0 x10^3/uL (0.0-0.2) Sodium Level 138 mmol/L (136-145) Potassium Level 4.2 mmol/L (3.5-5.1) Chloride Level 103 mmol/L (98-107) Carbon Dioxide Level 29 mmol/L (21-32) Anion Gap 6 (6-14) Blood Urea Nitrogen 25 mg/dL (7-20) Creatinine 5.3 mg/dL (0.6-1.0) Estimated GFR (Cockcroft-Gault) 9.8 Glucose Level 100 mg/dL (70-99) Calcium Level 8.2 mg/dL (8.5-10.1) Laboratory Tests Test 07/24/19 16:50 07/24/19 20:36 07/25/19 04:43 07/25/19 07:39 Glucose (Fingerstick) 103 mg/dL (70-99) 127 mg/dL (70-99) 108 mg/dL (70-99) White Blood Count 2.5 x10^3/uL (4.0-11.0) Red Blood Count 2.48 x10^6/uL (3.50-5.40) Hemoglobin 7.6 g/dL (12.0-15.5) Hematocrit 22.5 % (36.0-47.0) Mean Corpuscular Volume 91 fL (79-100) Mean Corpuscular Hemoglobin 30 pg (25-35) Mean Corpuscular Hemoglobin Concent 34 g/dL (31-37) Red Cell Distribution Width 17.0 % (11.5-14.5) Platelet Count 93 x10^3/uL (140-400) Neutrophils (%) (Auto) 52 % (31-73) Lymphocytes (%) (Auto) 29 % (24-48) Monocytes (%) (Auto) 14 % (0-9) Eosinophils (%) (Auto) 4 % (0-3) Basophils (%) (Auto) 1 % (0-3) Neutrophils # (Auto) 1.3 x10^3/uL (1.8-7.7) Lymphocytes # (Auto) 0.7 x10^3/uL (1.0-4.8) Monocytes # (Auto) 0.3 x10^3/uL (0.0-1.1) Eosinophils # (Auto) 0.1 x10^3/uL (0.0-0.7) Basophils # (Auto) 0.0 x10^3/uL (0.0-0.2) Sodium Level 138 mmol/L (136-145) Potassium Level 4.2 mmol/L (3.5-5.1) Chloride Level 103 mmol/L (98-107) Carbon Dioxide Level 29 mmol/L (21-32) Anion Gap 6 (6-14) Blood Urea Nitrogen 25 mg/dL (7-20) Creatinine 5.3 mg/dL (0.6-1.0) Estimated GFR (Cockcroft-Gault) 9.8 Glucose Level 100 mg/dL (70-99) Calcium Level 8.2 mg/dL (8.5-10.1) Problem List Problems Medical Problems: (1) Anemia Status: Chronic (2) Cirrhosis Status: Chronic (3) ESRD (end stage renal disease) on dialysis Status: Chronic (4) Rectal bleeding Status: Acute (5) Upper GI bleed Status: Acute Assessment/Plan supportive measures hgb improved some LILLIE TERRY MD 07/25/192139: SURGICAL PROGRESS NOTE Assessment/Plan Pt seen and examined. Agree with Ms. Aaron's note Pt taiwo clears, denies pain, hungry abd soft, ND, NTTP cont care per GI pt is poor surgical candidate. JUAN RAMON AARON APRN Jul 25, 2019 12:37 LILLIE TERRY MD Jul 25, 2019 21:40
[2019-07-25] MEDS: LACTOBACILLUS RHAMNOSUS GG 1 CAPSULE. PO SCH ×2 (13:53→21:16)
[2019-07-25] MEDS: CARVEDILOL 12.5 MG TABLET. PO SCH ×2 (13:53→17:00)
[2019-07-25] MEDS: FOLIC ACID 1 MG TABLET. PO SCH (13:54)
[2019-07-25] MEDS: NYSTATIN TOPICAL POWDER 15GM BOTTLE. TP SCH ×2 (13:54→21:16)
[2019-07-25] MEDS: FOLIC/VIT B COMP W-C (RENAL) TABLET. PO SCH (13:54)
[2019-07-25] MEDS: DICLOFENAC SODIUM 1% TOPICAL GEL 100GM TUBE. TP SCH ×2 (13:55→21:17)
[2019-07-25 15:00] VITALS: BP 125/78
--- NOTE | 2019-07-25 15:02 | PDOC ---
PROGRESS NOTES Subjective Subjective SEEN IN FOLLOW UP OF ESRD Objective Objective Vital Signs Date Time Temp Pulse Resp B/P (MAP) Pulse Ox O2 Delivery O2 Flow Rate FiO2 07/25/19 13:53 71 199/51 07/25/19 08:14 20 94 Room Air 07/25/19 07:00 98.0 98.0 07/24/19 20:00 2.0 Intake and Output 07/25/19 07:00 Intake Total 885 ml Output Total 0 ml Balance 885 ml Intake Oral 420 ml IV Total 100 ml Blood Product IV Normal Saline Flush 365 ml Output Urine Total 0 ml Physical Exam Abdomen: Normal bowel sounds, Soft, No tenderness, No hepatosplenomegaly, No masses Heart: Regular rate, Normal S1, Normal S2, No murmurs, Gallops Extremities: No clubbing, No cyanosis, No edema, Normal pulses, No tenderness/swelling General: Alert, Oriented X3, Cooperative, No acute distress Lungs: Clear to auscultation, Normal air movement Psych/Mental Status: Mental status NL, Mood NL Diagnosis RENAL FAILURE: ESRD Assessment Assessment Problems Medical Problems: (1) Anemia Status: Chronic (2) Cirrhosis Status: Chronic (3) ESRD (end stage renal disease) on dialysis Status: Chronic (4) Rectal bleeding Status: Acute (5) Upper GI bleed Status: Acute Plan Plan of Care DIALYSIS TODAY AND TOLERATED WELL. CONT TREATMENT OF GI BLEED Comment Review of Relevant I have reviewed the following items tamika (where applicable) has been applied. Labs Laboratory Tests Test 07/23/19 23:31 07/24/19 00:17 07/24/19 05:00 07/24/19 16:50 Glucose (Fingerstick) 67 mg/dL (70-99) 89 mg/dL (70-99) 103 mg/dL (70-99) White Blood Count 3.9 x10^3/uL (4.0-11.0) Red Blood Count 2.20 x10^6/uL (3.50-5.40) Hemoglobin 6.9 g/dL (12.0-15.5) Hematocrit 20.4 % (36.0-47.0) Mean Corpuscular Volume 93 fL (79-100) Mean Corpuscular Hemoglobin 32 pg (25-35) Mean Corpuscular Hemoglobin Concent 34 g/dL (31-37) Red Cell Distribution Width 16.0 % (11.5-14.5) Platelet Count 103 x10^3/uL (140-400) Sodium Level 138 mmol/L (136-145) Potassium Level 4.1 mmol/L (3.5-5.1) Chloride Level 100 mmol/L (98-107) Carbon Dioxide Level 29 mmol/L (21-32) Anion Gap 9 (6-14) Blood Urea Nitrogen 22 mg/dL (7-20) Creatinine 4.3 mg/dL (0.6-1.0) Estimated GFR (Cockcroft-Gault) 12.5 Glucose Level 79 mg/dL (70-99) Calcium Level 8.3 mg/dL (8.5-10.1) Test 07/24/19 20:36 07/25/19 04:43 07/25/19 07:39 Glucose (Fingerstick) 127 mg/dL (70-99) 108 mg/dL (70-99) White Blood Count 2.5 x10^3/uL (4.0-11.0) Red Blood Count 2.48 x10^6/uL (3.50-5.40) Hemoglobin 7.6 g/dL (12.0-15.5) Hematocrit 22.5 % (36.0-47.0) Mean Corpuscular Volume 91 fL (79-100) Mean Corpuscular Hemoglobin 30 pg (25-35) Mean Corpuscular Hemoglobin Concent 34 g/dL (31-37) Red Cell Distribution Width 17.0 % (11.5-14.5) Platelet Count 93 x10^3/uL (140-400) Neutrophils (%) (Auto) 52 % (31-73) Lymphocytes (%) (Auto) 29 % (24-48) Monocytes (%) (Auto) 14 % (0-9) Eosinophils (%) (Auto) 4 % (0-3) Basophils (%) (Auto) 1 % (0-3) Neutrophils # (Auto) 1.3 x10^3/uL (1.8-7.7) Lymphocytes # (Auto) 0.7 x10^3/uL (1.0-4.8) Monocytes # (Auto) 0.3 x10^3/uL (0.0-1.1) Eosinophils # (Auto) 0.1 x10^3/uL (0.0-0.7) Basophils # (Auto) 0.0 x10^3/uL (0.0-0.2) Sodium Level 138 mmol/L (136-145) Potassium Level 4.2 mmol/L (3.5-5.1) Chloride Level 103 mmol/L (98-107) Carbon Dioxide Level 29 mmol/L (21-32) Anion Gap 6 (6-14) Blood Urea Nitrogen 25 mg/dL (7-20) Creatinine 5.3 mg/dL (0.6-1.0) Estimated GFR (Cockcroft-Gault) 9.8 Glucose Level 100 mg/dL (70-99) Calcium Level 8.2 mg/dL (8.5-10.1) Laboratory Tests Test 07/24/19 16:50 07/24/19 20:36 07/25/19 04:43 07/25/19 07:39 Glucose (Fingerstick) 103 mg/dL (70-99) 127 mg/dL (70-99) 108 mg/dL (70-99) White Blood Count 2.5 x10^3/uL (4.0-11.0) Red Blood Count 2.48 x10^6/uL (3.50-5.40) Hemoglobin 7.6 g/dL (12.0-15.5) Hematocrit 22.5 % (36.0-47.0) Mean Corpuscular Volume 91 fL (79-100) Mean Corpuscular Hemoglobin 30 pg (25-35) Mean Corpuscular Hemoglobin Concent 34 g/dL (31-37) Red Cell Distribution Width 17.0 % (11.5-14.5) Platelet Count 93 x10^3/uL (140-400) Neutrophils (%) (Auto) 52 % (31-73) Lymphocytes (%) (Auto) 29 % (24-48) Monocytes (%) (Auto) 14 % (0-9) Eosinophils (%) (Auto) 4 % (0-3) Basophils (%) (Auto) 1 % (0-3) Neutrophils # (Auto) 1.3 x10^3/uL (1.8-7.7) Lymphocytes # (Auto) 0.7 x10^3/uL (1.0-4.8) Monocytes # (Auto) 0.3 x10^3/uL (0.0-1.1) Eosinophils # (Auto) 0.1 x10^3/uL (0.0-0.7) Basophils # (Auto) 0.0 x10^3/uL (0.0-0.2) Sodium Level 138 mmol/L (136-145) Potassium Level 4.2 mmol/L (3.5-5.1) Chloride Level 103 mmol/L (98-107) Carbon Dioxide Level 29 mmol/L (21-32) Anion Gap 6 (6-14) Blood Urea Nitrogen 25 mg/dL (7-20) Creatinine 5.3 mg/dL (0.6-1.0) Estimated GFR (Cockcroft-Gault) 9.8 Glucose Level 100 mg/dL (70-99) Calcium Level 8.2 mg/dL (8.5-10.1) Medications Current Medications Morphine Sulfate (Morphine Sulfate) 2 mg PRN Q15MIN PRN IV/SQ PAIN GREATER THAN 3/10 Last administered on 07/21/19at 09:46; Start 07/21/19 at 08:30; Stop 07/21/19 at 12:07; Status DC Pantoprazole Sodium (PROTONIX VIAL for IV PUSH) 40 mg 1X ONCE IVP Last administered on 07/21/19at 09:18; Start 07/21/19 at 08:30; Stop 07/21/19 at 08:32; Status DC Ondansetron HCl (Zofran) 4 mg 1X ONCE IV Last administered on 07/21/19at 09:46; Start 07/21/19 at 09:45; Stop 07/21/19 at 09:46; Status DC Pantoprazole Sodium 80 mg/ Sodium Chloride 100 ml @ 10 mls/hr Q10H IV Last administered on 07/24/19at 05:11; Start 07/21/19 at 09:45; Stop 07/24/19 at 15:05; Status DC Heparin Sodium (Porcine) (HEPARIN for NUC MED) 100 unit 1X ONCE IV ; Start 07/21/19 at 11:00; Stop 07/21/19 at 11:01; Status DC Sodium Chloride 1,000 ml @ 1,000 mls/hr Q1H PRN IV hypotension; Start 07/21/19 at 11:47; Stop 07/21/19 at 17:46; Status DC Info (PHARMACY MONITORING -- do not chart) 1 each PRN DAILY PRN MC SEE COMMENTS; Start 07/21/19 at 12:00; Stop 07/21/19 at 12:12; Status DC Info (PHARMACY MONITORING -- do not chart) 1 each PRN DAILY PRN MC SEE COMMENTS; Start 07/21/19 at 12:00 Morphine Sulfate (Morphine Sulfate) 2 mg PRN Q2HR PRN IV PAIN, 2ND CHOICE Last administered on 07/24/19at 12:56; Start 07/21/19 at 12:15 Ondansetron HCl (Zofran) 4 mg PRN Q6HRS PRN IV NAUSEA/VOMITING; Start 07/21/19 at 12:15 Ondansetron HCl (Zofran) 4 mg PRN Q8HRS PRN IV NAUSEA/VOMITING; Start 07/21/19 at 12:15; Stop 07/22/19 at 12:14; Status DC Darbepoetin [place] (ARANESP for DIALYSIS PTS) 60 mcg WEEKLYHS SQ Last administered on 07/21/19at 22:15; Start 07/21/19 at 21:00 Ringer's Solution 1,000 ml @ 100 mls/hr Q10H IV Last administered on 07/24/19at 00:38; Start 07/21/19 at 16:45; Stop 07/25/19 at 07:57; Status DC Midazolam HCl (Versed) 5 mg STK-MED ONCE .ROUTE ; Start 07/21/19 at 17:14; Stop 07/21/19 at 17:14; Status DC Fentanyl Citrate (Fentanyl 2ml Vial) 100 mcg STK-MED ONCE .ROUTE ; Start 07/21/19 at 17:14; Stop 07/21/19 at 17:14; Status DC Midazolam HCl (Versed) 5 mg STK-MED ONCE IV Last administered on 07/21/19at 17:37; Start 07/21/19 at 17:35; Stop 07/21/19 at 17:37; Status DC Fentanyl Citrate (Fentanyl 2ml Vial) 100 mcg STK-MED ONCE IV Last administered on 07/21/19at 17:37; Start 07/21/19 at 17:35; Stop 07/21/19 at 17:37; Status DC Midazolam HCl (Versed) 5 mg STK-MED ONCE IV Last administered on 07/21/19at 17:39; Start 07/21/19 at 17:37; Stop 07/21/19 at 17:39; Status DC Fentanyl Citrate (Fentanyl 2ml Vial) 100 mcg STK-MED ONCE IV Last administered on 07/21/19at 17:40; Start 07/21/19 at 17:38; Stop 07/21/19 at 17:40; Status DC Dextrose (Dextrose 50%-Water Syringe) 12.5 gm PRN Q15MIN PRN IV SEE COMMENTS Last administered on 07/23/19at 23:39; Start 07/21/19 at 18:45 Dextrose 250 ml PRN Q15MIN PRN IV SEE COMMENTS; Start 07/21/19 at 18:45 Hydromorphone HCl (Dilaudid) 1 mg PRN Q3HRS PRN IV PAIN, 1ST CHOICE Last administered on 07/23/19at 00:21; Start 07/21/19 at 21:45; Stop 07/23/19 at 18:58; Status DC Nystatin (Nystop) 1 leonila BID TP Last administered on 07/25/19at 13:54; Start 07/22/19 at 12:00 Sodium Chloride 1,000 ml @ 1,000 mls/hr Q1H PRN IV hypotension; Start 07/23/19 at 10:56; Stop 07/23/19 at 16:55; Status DC Sodium Chloride 1,000 ml @ 400 mls/hr Q2H30M PRN IV PATENCY; Start 07/23/19 at 10:56; Stop 07/23/19 at 22:55; Status DC Info (PHARMACY MONITORING -- do not chart) 1 each PRN DAILY PRN MC SEE COMMENTS; Start 07/23/19 at 11:00; Status UNV Info (PHARMACY MONITORING -- do not chart) 1 each PRN DAILY PRN MC SEE COMMENTS; Start 07/23/19 at 11:00; Status Cancel Diclofenac Sodium (Voltaren) 1 leonila BID TP Last administered on 07/25/19at 13:55; Start 07/23/19 at 21:00 Hydromorphone HCl (Dilaudid) 0.5 mg PRN Q1HR PRN IV pain Last administered on at 08:48; Start 07/23/19 at 19:00 Folic Acid (Folic Acid) 1 mg DAILY PO Last administered on 07/25/19at 13:54; Start 07/24/19 at 12:00 Vitamin B Complex/ Vitamin C (Yara-Edward) 1 tab DAILY PO Last administered on 07/25/19at 13:54; Start 07/24/19 at 12:00 Acetaminophen/ Hydrocodone Bitart (Lortab 5/325) 1 tab PRN Q6HRS PRN PO PAIN Last administered on 07/25/19at 08:14; Start 07/24/19 at 11:15 Lactobacillus Rhamnosus (Culturelle) 1 cap BID PO Last administered on 07/25/19 13:53; Start 07/24/19 at 12:00 Pantoprazole Sodium (Protonix) 40 mg DAILYAC PO ; Start 07/25/19 at 07:30; Status UNV Polyethylene Glycol (miraLAX PACKET) 17 gm PRN DAILY PRN PO CONSTIPATION; Start 07/24/19 at 11:15 Calcium Acetate (Phoslo) 667 mg TIDWMEALS PO Last administered on 07/24/19at 15:59; Start 07/24/19 at 12:00 Carvedilol (Coreg) 25 mg BIDWMEALS PO Last administered on 07/25/19at 13:53; Start 07/24/19 at 12:00 Ringer's Solution 1,000 ml @ 75 mls/hr [id number] IV ; Start 07/24/19 at 14:45; Stop 07/25/19 at 07:57; Status DC Propofol 20 ml @ As Directed STK-MED ONCE IV ; Start 07/24/19 at 14:44; Stop 07/24/19 at 14:44; Status DC Sodium Chloride 1,000 ml @ 30 mls/hr Q24H IV Last administered on 07/24/19at 14:47; Start 07/24/19 at 14:45; Stop 07/25/19 at 07:57; Status DC Pantoprazole Sodium (Protonix) 40 mg BIDAC PO Last administered on 07/25/19at 06:57; Start 07/24/19 at 16:30 Diphenhydramine HCl (Benadryl) 50 mg PRN QHS PRN PO INSOMNIA; Start 07/24/19 at 21:15 Info (PHARMACY MONITORING -- do not chart) 1 each PRN DAILY PRN MC SEE COMMENTS; Start 07/25/19 at 08:15 Info (PHARMACY MONITORING -- do not chart) 1 each PRN DAILY PRN MC SEE COMMENTS; Start 07/25/19 at 08:15; Status UNV Active Scripts Active Hydrocodone-Apap 5-325 (Hydrocodone Bit/Acetaminophen) 1 Tab Tablet 1 Tab PO PRN Q6HRS PRN 6 Days Pantoprazole Sodium (Pantoprazole Sodium) 40 Mg Tablet.dr 40 Mg PO DAILYAC 30 Days Culturelle (Lactobacillus Rhamnosus Gg) 1 Each Cap.sprink 1 Cap PO BID 14 Days Reported Nephro-Edward Tablet (Folic Acid/Vitamin B Comp W-C) 0.8 Mg Tablet 1 Tab PO DAILY Calcium Acetate 667 Mg Tablet 667 Mg PO TIDWMEALS Carvedilol 25 Mg Tablet 25 Mg PO BID Folic Acid 1 Mg Tablet 1 Mg PO DAILY Miralax (Polyethylene Glycol 3350) 17 Gm Powd.pack 1 Packet PO PRN DAILY PRN Vitals/I & O Vital Sign - Last 24 Hours 07/24/19 07/24/19 07/24/19 07/24/19 15:12 15:19 15:59 16:00 Pulse 84 86 86 Resp 18 18 B/P (MAP) 136/66 148/68 148/68 Pulse Ox 100 98 O2 Delivery Nasal Cannula Room Air Room Air O2 Flow Rate 3 07/24/19 07/24/19 07/24/19 07/24/19 17:27 19:00 20:00 23:00 Temp 98.4 98.4 98.4 98.4 Pulse 68 68 Resp 18 18 B/P (MAP) 119/58 (78) 114/43 (66) Pulse Ox 97 94 O2 Delivery Room Air Room Air Room Air Room Air O2 Flow Rate 2.0 07/24/19 07/25/19 07/25/19 07/25/19 23:21 00:21 03:00 07:00 Temp 98.4 98.0 98.4 98.0 Pulse 71 Resp 20 16 18 18 B/P (MAP) 114/50 (71) 199/51 (100) Pulse Ox 97 94 94 92 O2 Delivery Room Air Room Air Room Air Room Air 07/25/19 07/25/19 08:14 13:53 Pulse 71 Resp 20 B/P (MAP) 199/51 Pulse Ox 94 O2 Delivery Room Air Intake and Output 07/24/19 07/24/19 07/25/19 15:00 23:00 07:00 Intake Total 515 ml 250 ml 120 ml Output Total 0 ml 0 ml Balance 515 ml 250 ml 120 ml HAYDER LEZAMA MD Jul 25, 2019 15:02
[2019-07-25] MEDS: MORPHINE SULFATE 2 MG/ML VIAL. IV PRN (16:41)
[2019-07-25 19:00] VITALS: BP 118/38
[2019-07-25 23:00] VITALS: BP 126/49
[2019-07-26 03:06] VITALS: BP 136/54
[2019-07-26 05:37] LABS: BASO % 1 % (0-3); EOS # 0.1 x10^3/uL (0.0-0.7); EOS % 4 % (0-3); HEMATOCRIT 24.1 % (36.0-47.0); HEMOGLOBIN 8.1 g/dL (12.0-15.5); LYMPH # 0.7 x10^3/uL (1.0-4.8); LYMPH % 32 % (24-48); MEAN CORPUSCULAR HEMOGLOBIN 31 pg (25-35); MEAN CORPUSCULAR HGB CONC 34 g/dL (31-37); MEAN CORPUSCULAR VOLUME 92 fL (79-100); MONO # 0.3 x10^3/uL (0.0-1.1); MONO % 14 % (0-9); NEUT # 1.1 x10^3/uL (1.8-7.7); NEUT % 50 % (31-73); PLATELET COUNT 100 x10^3/uL (140-400); RED BLOOD COUNT 2.63 x10^6/uL (3.50-5.40); RED CELL DISTRIBUTION WIDTH 17.5 % (11.5-14.5); WHITE BLOOD COUNT 2.2 x10^3/uL (4.0-11.0)
[2019-07-26 05:55] LABS: ALBUMIN 2.2 g/dL (3.4-5.0); CALCIUM 8.4 mg/dL (8.5-10.1); CREATININE 3.8 mg/dL (0.6-1.0); GFR 14.4; PHOSPHORUS 3.7 mg/dL (2.6-4.7); POTASSIUM 3.8 mmol/L (3.5-5.1)
[2019-07-26 07:00] VITALS: BP 123/52
[2019-07-26] MEDS: PANTOPRAZOLE 40 MG TABLET.DR. PO SCH ×2 (07:21→16:55)
[2019-07-26] MEDS: FOLIC/VIT B COMP W-C (RENAL) TABLET. PO SCH (08:43)
[2019-07-26] MEDS: CARVEDILOL 12.5 MG TABLET. PO SCH ×2 (08:43→16:56)
[2019-07-26] MEDS: CALCIUM ACETATE 667 MG CAPSULE PO SCH ×3 (08:43→16:55)
[2019-07-26] MEDS: FOLIC ACID 1 MG TABLET. PO SCH (08:43)
[2019-07-26] MEDS: LACTOBACILLUS RHAMNOSUS GG 1 CAPSULE. PO SCH ×2 (08:43→20:34)
[2019-07-26] MEDS: HYDROcodone/APAP 5/325MG 1 TAB TABLET PO PRN ×2 (08:43→14:59)
[2019-07-26] MEDS: NYSTATIN TOPICAL POWDER 15GM BOTTLE. TP SCH ×3 (08:44→20:34)
[2019-07-26] MEDS: DICLOFENAC SODIUM 1% TOPICAL GEL 100GM TUBE. TP SCH ×2 (08:44→20:34)
--- NOTE | 2019-07-26 09:21 | PDOC ---
SURGICAL PROGRESS NOTE Subjective Pt without c/o, except for hunger, taiwo clears, no n/v, pain resolved. Vital Signs Vital Signs Date Time Temp Pulse Resp B/P (MAP) Pulse Ox O2 Delivery O2 Flow Rate FiO2 07/26/19 08:43 71 123/52 07/26/19 08:43 Room Air 07/26/19 07:00 97.8 18 96 97.8 07/25/19 08:00 2.0 I&O Intake and Output 07/26/19 07:00 Intake Total 720 ml Output Total 0 ml Balance 720 ml Intake Oral 720 ml Output Urine Total 0 ml # Voids 1 # Bowel Movements 1 General: Alert, Oriented X3, Cooperative, No acute distress Abdomen: Soft, No tenderness Labs Laboratory Tests Test 07/24/19 16:50 07/24/19 20:36 07/25/19 04:43 07/25/19 07:39 Glucose (Fingerstick) 103 mg/dL (70-99) 127 mg/dL (70-99) 108 mg/dL (70-99) White Blood Count 2.5 x10^3/uL (4.0-11.0) Red Blood Count 2.48 x10^6/uL (3.50-5.40) Hemoglobin 7.6 g/dL (12.0-15.5) Hematocrit 22.5 % (36.0-47.0) Mean Corpuscular Volume 91 fL (79-100) Mean Corpuscular Hemoglobin 30 pg (25-35) Mean Corpuscular Hemoglobin Concent 34 g/dL (31-37) Red Cell Distribution Width 17.0 % (11.5-14.5) Platelet Count 93 x10^3/uL (140-400) Neutrophils (%) (Auto) 52 % (31-73) Lymphocytes (%) (Auto) 29 % (24-48) Monocytes (%) (Auto) 14 % (0-9) Eosinophils (%) (Auto) 4 % (0-3) Basophils (%) (Auto) 1 % (0-3) Neutrophils # (Auto) 1.3 x10^3/uL (1.8-7.7) Lymphocytes # (Auto) 0.7 x10^3/uL (1.0-4.8) Monocytes # (Auto) 0.3 x10^3/uL (0.0-1.1) Eosinophils # (Auto) 0.1 x10^3/uL (0.0-0.7) Basophils # (Auto) 0.0 x10^3/uL (0.0-0.2) Sodium Level 138 mmol/L (136-145) Potassium Level 4.2 mmol/L (3.5-5.1) Chloride Level 103 mmol/L (98-107) Carbon Dioxide Level 29 mmol/L (21-32) Anion Gap 6 (6-14) Blood Urea Nitrogen 25 mg/dL (7-20) Creatinine 5.3 mg/dL (0.6-1.0) Estimated GFR (Cockcroft-Gault) 9.8 Glucose Level 100 mg/dL (70-99) Calcium Level 8.2 mg/dL (8.5-10.1) Test 07/25/19 16:46 07/25/19 20:27 07/26/19 04:15 07/26/19 07:34 Glucose (Fingerstick) 109 mg/dL (70-99) 159 mg/dL (70-99) 85 mg/dL (70-99) White Blood Count 2.2 x10^3/uL (4.0-11.0) Red Blood Count 2.63 x10^6/uL (3.50-5.40) Hemoglobin 8.1 g/dL (12.0-15.5) Hematocrit 24.1 % (36.0-47.0) Mean Corpuscular Volume 92 fL (79-100) Mean Corpuscular Hemoglobin 31 pg (25-35) Mean Corpuscular Hemoglobin Concent 34 g/dL (31-37) Red Cell Distribution Width 17.5 % (11.5-14.5) Platelet Count 100 x10^3/uL (140-400) Neutrophils (%) (Auto) 50 % (31-73) Lymphocytes (%) (Auto) 32 % (24-48) Monocytes (%) (Auto) 14 % (0-9) Eosinophils (%) (Auto) 4 % (0-3) Basophils (%) (Auto) 1 % (0-3) Neutrophils # (Auto) 1.1 x10^3/uL (1.8-7.7) Lymphocytes # (Auto) 0.7 x10^3/uL (1.0-4.8) Monocytes # (Auto) 0.3 x10^3/uL (0.0-1.1) Eosinophils # (Auto) 0.1 x10^3/uL (0.0-0.7) Basophils # (Auto) 0.0 x10^3/uL (0.0-0.2) Sodium Level 142 mmol/L (136-145) Potassium Level 3.8 mmol/L (3.5-5.1) Chloride Level 104 mmol/L (98-107) Carbon Dioxide Level 31 mmol/L (21-32) Anion Gap 7 (6-14) Blood Urea Nitrogen 13 mg/dL (7-20) Creatinine 3.8 mg/dL (0.6-1.0) Estimated GFR (Cockcroft-Gault) 14.4 Glucose Level 91 mg/dL (70-99) Calcium Level 8.4 mg/dL (8.5-10.1) Phosphorus Level 3.7 mg/dL (2.6-4.7) Albumin 2.2 g/dL (3.4-5.0) Laboratory Tests Test 07/25/19 16:46 07/25/19 20:27 07/26/19 04:15 07/26/19 07:34 Glucose (Fingerstick) 109 mg/dL (70-99) 159 mg/dL (70-99) 85 mg/dL (70-99) White Blood Count 2.2 x10^3/uL (4.0-11.0) Red Blood Count 2.63 x10^6/uL (3.50-5.40) Hemoglobin 8.1 g/dL (12.0-15.5) Hematocrit 24.1 % (36.0-47.0) Mean Corpuscular Volume 92 fL (79-100) Mean Corpuscular Hemoglobin 31 pg (25-35) Mean Corpuscular Hemoglobin Concent 34 g/dL (31-37) Red Cell Distribution Width 17.5 % (11.5-14.5) Platelet Count 100 x10^3/uL (140-400) Neutrophils (%) (Auto) 50 % (31-73) Lymphocytes (%) (Auto) 32 % (24-48) Monocytes (%) (Auto) 14 % (0-9) Eosinophils (%) (Auto) 4 % (0-3) Basophils (%) (Auto) 1 % (0-3) Neutrophils # (Auto) 1.1 x10^3/uL (1.8-7.7) Lymphocytes # (Auto) 0.7 x10^3/uL (1.0-4.8) Monocytes # (Auto) 0.3 x10^3/uL (0.0-1.1) Eosinophils # (Auto) 0.1 x10^3/uL (0.0-0.7) Basophils # (Auto) 0.0 x10^3/uL (0.0-0.2) Sodium Level 142 mmol/L (136-145) Potassium Level 3.8 mmol/L (3.5-5.1) Chloride Level 104 mmol/L (98-107) Carbon Dioxide Level 31 mmol/L (21-32) Anion Gap 7 (6-14) Blood Urea Nitrogen 13 mg/dL (7-20) Creatinine 3.8 mg/dL (0.6-1.0) Estimated GFR (Cockcroft-Gault) 14.4 Glucose Level 91 mg/dL (70-99) Calcium Level 8.4 mg/dL (8.5-10.1) Phosphorus Level 3.7 mg/dL (2.6-4.7) Albumin 2.2 g/dL (3.4-5.0) Problem List Problems Medical Problems: (1) Anemia Status: Chronic (2) Cirrhosis Status: Chronic (3) ESRD (end stage renal disease) on dialysis Status: Chronic (4) Rectal bleeding Status: Acute (5) Upper GI bleed Status: Acute Assessment/Plan UGI, appears stabilized clinically and by labs. Will start soft diet, given several days of low nutrition cont PPI pt is poor surgical candidate, given concern for liver disease. LILLIE TERRY MD Jul 26, 2019 09:21
--- NOTE | 2019-07-26 10:45 | PDOC ---
PROGRESS NOTES Chief Complaint Chief Complaint Upper GI bleed Hematemesis ESRD Obesity Cirrhosis History of Present Illness History of Present Illness 07/26/19 IMPRESSION Pt was seen and examined bedside Pt was watching television EGD 07/24 Charts and labs reviewed WBC is 3.9, down from 5.7 Hb is 8.1 await bx D/w RN cont PPI pt is poor surgical candidate, given concern for liver disease. 28 MIN PT EXAM, CHART REVIEW, > 50% OF TIME SPENT WITH EXAM, CHART REVIEW, PT CARE COORDINATION 07/23/19 Pt was seen and examined in the ICU Pt was sitting up in chair and watching television Asked if she could have chicken broth EPI RN Had occult blood in stool; needs to be kept NPO Approved transfer to medical floor 07/22/19 Pt was seen and examined in the ICU Was alert but weak EPI RN No bleeding as of today Says that she drinks 2 shots of whiskey everyday Procedure EGD/biopsies Indication: recurrent UGI bleeding/source unclear Meds: per anesthesia Findings: E--Healed reflux at 39 cm. G--clean-based ulcer, prepyloric in same location as last times. Biopsied rim, though appears w/o mass. Pylorus deformed, but passable. D--normal to second portion. Obdulio. well. IMP: Refractory ulcer, biopsies pending. Healed reflux. REC: Await biopsies. PO PPI bid. Would not go above full liquids this weekend. Seems ulcer will not be dealt with medically. Reconsider OR? surgery consulted Vitals Vitals Vital Signs Date Time Temp Pulse Resp B/P (MAP) Pulse Ox O2 Delivery O2 Flow Rate FiO2 07/26/19 08:43 71 123/52 07/26/19 08:43 Room Air 07/26/19 07:00 97.8 18 96 97.8 07/25/19 08:00 2.0 Physical Exam Physical Exam General Appearance: no apparent distress Skin: warm Respiratory: bilateral CTA Heart: S1S2, RRR Abdomen: soft, bowel sounds present Extremities: pulses present Neurology: alert, oriented General: Alert, Oriented X3, Cooperative, No acute distress Heart: Regular rate, Normal S1, Normal S2, No murmurs, Gallops Lungs: Clear Abdomen: Normal bowel sounds, Soft, No tenderness Extremities: No clubbing, No cyanosis, No edema, Normal pulses, No tenderness/swelling Skin: No rashes, No breakdown Labs LABS Laboratory Tests Test 07/25/19 16:46 07/25/19 20:27 07/26/19 04:15 07/26/19 07:34 Glucose (Fingerstick) 109 mg/dL (70-99) 159 mg/dL (70-99) 85 mg/dL (70-99) White Blood Count 2.2 x10^3/uL (4.0-11.0) Red Blood Count 2.63 x10^6/uL (3.50-5.40) Hemoglobin 8.1 g/dL (12.0-15.5) Hematocrit 24.1 % (36.0-47.0) Mean Corpuscular Volume 92 fL (79-100) Mean Corpuscular Hemoglobin 31 pg (25-35) Mean Corpuscular Hemoglobin Concent 34 g/dL (31-37) Red Cell Distribution Width 17.5 % (11.5-14.5) Platelet Count 100 x10^3/uL (140-400) Neutrophils (%) (Auto) 50 % (31-73) Lymphocytes (%) (Auto) 32 % (24-48) Monocytes (%) (Auto) 14 % (0-9) Eosinophils (%) (Auto) 4 % (0-3) Basophils (%) (Auto) 1 % (0-3) Neutrophils # (Auto) 1.1 x10^3/uL (1.8-7.7) Lymphocytes # (Auto) 0.7 x10^3/uL (1.0-4.8) Monocytes # (Auto) 0.3 x10^3/uL (0.0-1.1) Eosinophils # (Auto) 0.1 x10^3/uL (0.0-0.7) Basophils # (Auto) 0.0 x10^3/uL (0.0-0.2) Sodium Level 142 mmol/L (136-145) Potassium Level 3.8 mmol/L (3.5-5.1) Chloride Level 104 mmol/L (98-107) Carbon Dioxide Level 31 mmol/L (21-32) Anion Gap 7 (6-14) Blood Urea Nitrogen 13 mg/dL (7-20) Creatinine 3.8 mg/dL (0.6-1.0) Estimated GFR (Cockcroft-Gault) 14.4 Glucose Level 91 mg/dL (70-99) Calcium Level 8.4 mg/dL (8.5-10.1) Phosphorus Level 3.7 mg/dL (2.6-4.7) Albumin 2.2 g/dL (3.4-5.0) Assessment and Plan Assessmemt and Plan Problems Medical Problems: (1) Anemia Status: Chronic (2) Cirrhosis Status: Chronic (3) ESRD (end stage renal disease) on dialysis Status: Chronic (4) Rectal bleeding Status: Acute (5) Upper GI bleed Status: Acute Comment Review of Relevant I have reviewed the following items tamika (where applicable) has been applied. Labs Laboratory Tests Test 07/24/19 16:50 07/24/19 20:36 07/25/19 04:43 07/25/19 07:39 Glucose (Fingerstick) 103 mg/dL (70-99) 127 mg/dL (70-99) 108 mg/dL (70-99) White Blood Count 2.5 x10^3/uL (4.0-11.0) Red Blood Count 2.48 x10^6/uL (3.50-5.40) Hemoglobin 7.6 g/dL (12.0-15.5) Hematocrit 22.5 % (36.0-47.0) Mean Corpuscular Volume 91 fL (79-100) Mean Corpuscular Hemoglobin 30 pg (25-35) Mean Corpuscular Hemoglobin Concent 34 g/dL (31-37) Red Cell Distribution Width 17.0 % (11.5-14.5) Platelet Count 93 x10^3/uL (140-400) Neutrophils (%) (Auto) 52 % (31-73) Lymphocytes (%) (Auto) 29 % (24-48) Monocytes (%) (Auto) 14 % (0-9) Eosinophils (%) (Auto) 4 % (0-3) Basophils (%) (Auto) 1 % (0-3) Neutrophils # (Auto) 1.3 x10^3/uL (1.8-7.7) Lymphocytes # (Auto) 0.7 x10^3/uL (1.0-4.8) Monocytes # (Auto) 0.3 x10^3/uL (0.0-1.1) Eosinophils # (Auto) 0.1 x10^3/uL (0.0-0.7) Basophils # (Auto) 0.0 x10^3/uL (0.0-0.2) Sodium Level 138 mmol/L (136-145) Potassium Level 4.2 mmol/L (3.5-5.1) Chloride Level 103 mmol/L (98-107) Carbon Dioxide Level 29 mmol/L (21-32) Anion Gap 6 (6-14) Blood Urea Nitrogen 25 mg/dL (7-20) Creatinine 5.3 mg/dL (0.6-1.0) Estimated GFR (Cockcroft-Gault) 9.8 Glucose Level 100 mg/dL (70-99) Calcium Level 8.2 mg/dL (8.5-10.1) Test 07/25/19 16:46 07/25/19 20:27 07/26/19 04:15 07/26/19 07:34 Glucose (Fingerstick) 109 mg/dL (70-99) 159 mg/dL (70-99) 85 mg/dL (70-99) White Blood Count 2.2 x10^3/uL (4.0-11.0) Red Blood Count 2.63 x10^6/uL (3.50-5.40) Hemoglobin 8.1 g/dL (12.0-15.5) Hematocrit 24.1 % (36.0-47.0) Mean Corpuscular Volume 92 fL (79-100) Mean Corpuscular Hemoglobin 31 pg (25-35) Mean Corpuscular Hemoglobin Concent 34 g/dL (31-37) Red Cell Distribution Width 17.5 % (11.5-14.5) Platelet Count 100 x10^3/uL (140-400) Neutrophils (%) (Auto) 50 % (31-73) Lymphocytes (%) (Auto) 32 % (24-48) Monocytes (%) (Auto) 14 % (0-9) Eosinophils (%) (Auto) 4 % (0-3) Basophils (%) (Auto) 1 % (0-3) Neutrophils # (Auto) 1.1 x10^3/uL (1.8-7.7) Lymphocytes # (Auto) 0.7 x10^3/uL (1.0-4.8) Monocytes # (Auto) 0.3 x10^3/uL (0.0-1.1) Eosinophils # (Auto) 0.1 x10^3/uL (0.0-0.7) Basophils # (Auto) 0.0 x10^3/uL (0.0-0.2) Sodium Level 142 mmol/L (136-145) Potassium Level 3.8 mmol/L (3.5-5.1) Chloride Level 104 mmol/L (98-107) Carbon Dioxide Level 31 mmol/L (21-32) Anion Gap 7 (6-14) Blood Urea Nitrogen 13 mg/dL (7-20) Creatinine 3.8 mg/dL (0.6-1.0) Estimated GFR (Cockcroft-Gault) 14.4 Glucose Level 91 mg/dL (70-99) Calcium Level 8.4 mg/dL (8.5-10.1) Phosphorus Level 3.7 mg/dL (2.6-4.7) Albumin 2.2 g/dL (3.4-5.0) Laboratory Tests Test 07/25/19 16:46 07/25/19 20:27 07/26/19 04:15 07/26/19 07:34 Glucose (Fingerstick) 109 mg/dL (70-99) 159 mg/dL (70-99) 85 mg/dL (70-99) White Blood Count 2.2 x10^3/uL (4.0-11.0) Red Blood Count 2.63 x10^6/uL (3.50-5.40) Hemoglobin 8.1 g/dL (12.0-15.5) Hematocrit 24.1 % (36.0-47.0) Mean Corpuscular Volume 92 fL (79-100) Mean Corpuscular Hemoglobin 31 pg (25-35) Mean Corpuscular Hemoglobin Concent 34 g/dL (31-37) Red Cell Distribution Width 17.5 % (11.5-14.5) Platelet Count 100 x10^3/uL (140-400) Neutrophils (%) (Auto) 50 % (31-73) Lymphocytes (%) (Auto) 32 % (24-48) Monocytes (%) (Auto) 14 % (0-9) Eosinophils (%) (Auto) 4 % (0-3) Basophils (%) (Auto) 1 % (0-3) Neutrophils # (Auto) 1.1 x10^3/uL (1.8-7.7) Lymphocytes # (Auto) 0.7 x10^3/uL (1.0-4.8) Monocytes # (Auto) 0.3 x10^3/uL (0.0-1.1) Eosinophils # (Auto) 0.1 x10^3/uL (0.0-0.7) Basophils # (Auto) 0.0 x10^3/uL (0.0-0.2) Sodium Level 142 mmol/L (136-145) Potassium Level 3.8 mmol/L (3.5-5.1) Chloride Level 104 mmol/L (98-107) Carbon Dioxide Level 31 mmol/L (21-32) Anion Gap 7 (6-14) Blood Urea Nitrogen 13 mg/dL (7-20) Creatinine 3.8 mg/dL (0.6-1.0) Estimated GFR (Cockcroft-Gault) 14.4 Glucose Level 91 mg/dL (70-99) Calcium Level 8.4 mg/dL (8.5-10.1) Phosphorus Level 3.7 mg/dL (2.6-4.7) Albumin 2.2 g/dL (3.4-5.0) Medications Current Medications Morphine Sulfate (Morphine Sulfate) 2 mg PRN Q15MIN PRN IV/SQ PAIN GREATER THAN 3/10 Last administered on 07/21/19at 09:46; Start 07/21/19 at 08:30; Stop 07/21/19 at 12:07; Status DC Pantoprazole Sodium (PROTONIX VIAL for IV PUSH) 40 mg 1X ONCE IVP Last administered on 07/21/19at 09:18; Start 07/21/19 at 08:30; Stop 07/21/19 at 08:32; Status DC Ondansetron HCl (Zofran) 4 mg 1X ONCE IV Last administered on 07/21/19at 09:46; Start 07/21/19 at 09:45; Stop 07/21/19 at 09:46; Status DC Pantoprazole Sodium 80 mg/ Sodium Chloride 100 ml @ 10 mls/hr Q10H IV Last administered on 07/24/19at 05:11; Start 07/21/19 at 09:45; Stop 07/24/19 at 15:05; Status DC Heparin Sodium (Porcine) (HEPARIN for NUC MED) 100 unit 1X ONCE IV ; Start 07/21/19 at 11:00; Stop 07/21/19 at 11:01; Status DC Sodium Chloride 1,000 ml @ 1,000 mls/hr Q1H PRN IV hypotension; Start 07/21/19 at 11:47; Stop 07/21/19 at 17:46; Status DC Info (PHARMACY MONITORING -- do not chart) 1 each PRN DAILY PRN MC SEE COMMENTS; Start 07/21/19 at 12:00; Stop 07/21/19 at 12:12; Status DC Info (PHARMACY MONITORING -- do not chart) 1 each PRN DAILY PRN MC SEE COMMENTS; Start 07/21/19 at 12:00; Stop 07/25/19 at 16:28; Status DC Morphine Sulfate (Morphine Sulfate) 2 mg PRN Q2HR PRN IV PAIN, 2ND CHOICE Last administered on 07/25/19at 16:41; Start 07/21/19 at 12:15 Ondansetron HCl (Zofran) 4 mg PRN Q6HRS PRN IV NAUSEA/VOMITING; Start 07/21/19 at 12:15 Ondansetron HCl (Zofran) 4 mg PRN Q8HRS PRN IV NAUSEA/VOMITING; Start 07/21/19 at 12:15; Stop 07/22/19 at 12:14; Status DC Darbepoetin [place] (ARANESP for DIALYSIS PTS) 60 mcg WEEKLYHS SQ Last adm inistered on 07/21/19at 22:15; Start 07/21/19 at 21:00 Ringer's Solution 1,000 ml @ 100 mls/hr Q10H IV Last administered on 07/24/19at 00:38; Start 07/21/19 at 16:45; Stop 07/25/19 at 07:57; Status DC Midazolam HCl (Versed) 5 mg STK-MED ONCE .ROUTE ; Start 07/21/19 at 17:14; Stop 07/21/19 at 17:14; Status DC Fentanyl Citrate (Fentanyl 2ml Vial) 100 mcg STK-MED ONCE .ROUTE ; Start 07/21/19 at 17:14; Stop 07/21/19 at 17:14; Status DC Midazolam HCl (Versed) 5 mg STK-MED ONCE IV Last administered on 07/21/19at 17:37; Start 07/21/19 at 17:35; Stop 07/21/19 at 17:37; Status DC Fentanyl Citrate (Fentanyl 2ml Vial) 100 mcg STK-MED ONCE IV Last administered on 07/21/19at 17:37; Start 07/21/19 at 17:35; Stop 07/21/19 at 17:37; Status DC Midazolam HCl (Versed) 5 mg STK-MED ONCE IV Last administered on 07/21/19at 17:39; Start 07/21/19 at 17:37; Stop 07/21/19 at 17:39; Status DC Fentanyl Citrate (Fentanyl 2ml Vial) 100 mcg STK-MED ONCE IV Last administered on 07/21/19at 17:40; Start 07/21/19 at 17:38; Stop 07/21/19 at 17:40; Status DC Dextrose (Dextrose 50%-Water Syringe) 12.5 gm PRN Q15MIN PRN IV SEE COMMENTS Last administered on 07/23/19at 23:39; Start 07/21/19 at 18:45 Dextrose 250 ml PRN Q15MIN PRN IV SEE COMMENTS; Start 07/21/19 at 18:45 Hydromorphone HCl (Dilaudid) 1 mg PRN Q3HRS PRN IV PAIN, 1ST CHOICE Last administered on 07/23/19at 00:21; Start 07/21/19 at 21:45; Stop 07/23/19 at 1 8:58; Status DC Nystatin (Nystop) 1 leonila BID TP Last administered on 07/25/19at 21:16; Start 07/22/19 at 12:00 Sodium Chloride 1,000 ml @ 1,000 mls/hr Q1H PRN IV hypotension; Start 07/23/19 at 10:56; Stop 07/23/19 at 16:55; Status DC Sodium Chloride 1,000 ml @ 400 mls/hr Q2H30M PRN IV PATENCY; Start 07/23/19 at 10:56; Stop 07/23/19 at 22:55; Status DC Info (PHARMACY MONITORING -- do not chart) 1 each PRN DAILY PRN MC SEE COMMENTS; Start 07/23/19 at 11:00; Status UNV Info (PHARMACY MONITORING -- do not chart) 1 each PRN DAILY PRN MC SEE COMMENTS; Start 07/23/19 at 11:00; Status Cancel Diclofenac Sodium (Voltaren) 1 leonila BID TP Last administered on 07/26/19 08:44; Start 07/23/19 at 21:00 Hydromorphone HCl (Dilaudid) 0.5 mg PRN Q1HR PRN IV pain Last administered on 07/24/19 08:48; Start 07/23/19 at 19:00 Folic Acid (Folic Acid) 1 mg DAILY PO Last administered on 07/26/19 08:43; Start 07/24/19 at 12:00 Vitamin B Complex/ Vitamin C (Yara-Edward) 1 tab DAILY PO Last administered on 07/26/19 08:43; Start 07/24/19 at 12:00 Acetaminophen/ Hydrocodone Bitart (Lortab 5/325) 1 tab PRN Q6HRS PRN PO PAIN Last administered on 07/26/19 08:43; Start 07/24/19 at 11:15 Lactobacillus Rhamnosus (Culturelle) 1 cap BID PO Last administered on 07/26/19 08:43; Start 07/24/19 at 12:00 Pantoprazole Sodium (Protonix) 40 mg DAILYAC PO ; Start 07/25/19 at 07:30; Status UNV Polyethylene Glycol (miraLAX PACKET) 17 gm PRN DAILY PRN PO CONSTIPATION; Start 07/24/19 at 11:15 Calcium Acetate (Phoslo) 667 mg TIDWMEALS PO Last administered on 07/26/19 08:43; Start 07/24/19 at 12:00 Carvedilol (Coreg) 25 mg BIDWMEALS PO Last administered on 07/26/19 08:43; Start 07/24/19 at 12:00 Ringer's Solution 1,000 ml @ 75 mls/hr [id number] IV ; Start 07/24/19 at 14:45; Stop 07/25/19 at 07:57; Status DC Propofol 20 ml @ As Directed STK-MED ONCE IV ; Start 07/24/19 at 14:44; Stop 07/24/19 at 14:44; Status DC Sodium Chloride 1,000 ml @ 30 mls/hr Q24H IV Last administered on 07/24/19at 14:47; Start 07/24/19 at 14:45; Stop 07/25/19 at 07:57; Status DC Pantoprazole Sodium (Protonix) 40 mg BIDAC PO Last administered on 07/26/19at 07:21; Start 07/24/19 at 16:30 Diphenhydramine HCl (Benadryl) 50 mg PRN QHS PRN PO INSOMNIA Last administered on 07/25/19at 21:19; Start 07/24/19 at 21:15 Info (PHARMACY MONITORING -- do not chart) 1 each PRN DAILY PRN MC SEE COMMENTS; Start 07/25/19 at 08:15 Info (PHARMACY MONITORING -- do not chart) 1 each PRN DAILY PRN MC SEE COMMENTS; Start 07/25/19 at 08:15; Status UNV Active Scripts Active Hydrocodone-Apap 5-325 (Hydrocodone Bit/Acetaminophen) 1 Tab Tablet 1 Tab PO PRN Q6HRS PRN 6 Days Pantoprazole Sodium (Pantoprazole Sodium) 40 Mg Tablet.dr 40 Mg PO DAILYAC 30 Days Culturelle (Lactobacillus Rhamnosus Gg) 1 Each Cap.sprink 1 Cap PO BID 14 Days Reported Nephro-Edward Tablet (Folic Acid/Vitamin B Comp W-C) 0.8 Mg Tablet 1 Tab PO DAILY Calcium Acetate 667 Mg Tablet 667 Mg PO TIDWMEALS Carvedilol 25 Mg Tablet 25 Mg PO BID Folic Acid 1 Mg Tablet 1 Mg PO DAILY Miralax (Polyethylene Glycol 3350) 17 Gm Powd.pack 1 Packet PO PRN DAILY PRN Vitals/I & O Vital Sign - Last 24 Hours 07/25/19 07/25/19 07/25/19 07/25/19 13:53 15:00 15:06 16:06 Temp 98.1 98.1 Pulse 71 65 Resp 18 20 20 B/P (MAP) 199/51 125/78 (94) Pulse Ox 98 94 94 O2 Delivery Room Air Room Air Room Air 07/25/19 07/25/19 07/25/19 07/25/19 16:41 17:00 17:11 19:00 Temp 97.5 97.5 Pulse 65 71 Resp 20 20 20 B/P (MAP) 125/78 118/38 (64) Pulse Ox 94 94 96 O2 Delivery Room Air Room Air Room Air 07/25/19 07/25/19 07/25/19 07/25/19 19:00 20:00 21:17 22:17 Temp 97.5 97.5 Pulse 71 Resp 20 20 20 B/P (MAP) 118/38 (64) Pulse Ox 96 98 O2 Delivery Room Air Room Air Room Air 07/25/19 07/26/19 07/26/19 07/26/19 23:00 03:06 07:00 08:43 Temp 98.3 98.4 97.8 98.3 98.4 97.8 Pulse 66 70 71 Resp 20 20 18 B/P (MAP) 126/49 (74) 136/54 (81) 123/52 (75) Pulse Ox 98 98 96 O2 Delivery Room Air Room Air Room Air Room Air 07/26/19 08:43 Pulse 71 B/P (MAP) 123/52 Intake and Output 07/25/19 07/25/19 07/26/19 15:00 23:00 07:00 Intake Total 600 ml 120 ml Output Total 0 ml Balance 600 ml 120 ml 0 ml ASHIA MOSS MD Jul 26, 2019 10:45
[2019-07-26 11:00] VITALS: BP 117/56
--- NOTE | 2019-07-26 11:01 | PDOC ---
GI PROGRESS NOTES Date Date/Time DATE: 07/26/19 TIME: 11:00 Subjective Subjective In her room, feeling well and tolerating diet. No further overt bleeding reported Objective Vitals Vital Signs Date Time Temp Pulse Resp B/P (MAP) Pulse Ox O2 Delivery O2 Flow Rate FiO2 07/26/19 08:43 71 123/52 07/26/19 08:43 Room Air 07/26/19 07:00 97.8 71 18 123/52 (75) 96 Room Air 97.8 07/26/19 03:06 98.4 70 20 136/54 (81) 98 Room Air 98.4 07/25/19 23:00 98.3 66 20 126/49 (74) 98 Room Air 98.3 07/25/19 22:17 20 98 Room Air 07/25/19 21:17 20 96 Room Air 07/25/19 20:00 Room Air 07/25/19 19:00 97.5 71 20 118/38 (64) 97.5 07/25/19 19:00 97.5 71 20 118/38 (64) 96 Room Air 97.5 07/25/19 17:11 20 94 Room Air 07/25/19 17:00 65 125/78 07/25/19 16:41 20 94 Room Air 07/25/19 16:06 20 94 Room Air 07/25/19 15:06 20 94 Room Air 07/25/19 15:00 98.1 65 18 125/78 (94) 98 Room Air 98.1 07/25/19 13:53 71 199/51 Labs Labs Laboratory Tests Test 07/25/19 16:46 07/25/19 20:27 07/26/19 04:15 07/26/19 07:34 Glucose (Fingerstick) 109 mg/dL (70-99) 159 mg/dL (70-99) 85 mg/dL (70-99) White Blood Count 2.2 x10^3/uL (4.0-11.0) Red Blood Count 2.63 x10^6/uL (3.50-5.40) Hemoglobin 8.1 g/dL (12.0-15.5) Hematocrit 24.1 % (36.0-47.0) Mean Corpuscular Volume 92 fL (79-100) Mean Corpuscular Hemoglobin 31 pg (25-35) Mean Corpuscular Hemoglobin Concent 34 g/dL (31-37) Red Cell Distribution Width 17.5 % (11.5-14.5) Platelet Count 100 x10^3/uL (140-400) Neutrophils (%) (Auto) 50 % (31-73) Lymphocytes (%) (Auto) 32 % (24-48) Monocytes (%) (Auto) 14 % (0-9) Eosinophils (%) (Auto) 4 % (0-3) Basophils (%) (Auto) 1 % (0-3) Neutrophils # (Auto) 1.1 x10^3/uL (1.8-7.7) Lymphocytes # (Auto) 0.7 x10^3/uL (1.0-4.8) Monocytes # (Auto) 0.3 x10^3/uL (0.0-1.1) Eosinophils # (Auto) 0.1 x10^3/uL (0.0-0.7) Basophils # (Auto) 0.0 x10^3/uL (0.0-0.2) Sodium Level 142 mmol/L (136-145) Potassium Level 3.8 mmol/L (3.5-5.1) Chloride Level 104 mmol/L (98-107) Carbon Dioxide Level 31 mmol/L (21-32) Anion Gap 7 (6-14) Blood Urea Nitrogen 13 mg/dL (7-20) Creatinine 3.8 mg/dL (0.6-1.0) Estimated GFR (Cockcroft-Gault) 14.4 Glucose Level 91 mg/dL (70-99) Calcium Level 8.4 mg/dL (8.5-10.1) Phosphorus Level 3.7 mg/dL (2.6-4.7) Albumin 2.2 g/dL (3.4-5.0) Physical Exam Physical Exam chest- clear cor- RRR abd- soft NON tender good bowel sounds Assessment Assessment recurrent no healing pre-pyloric gastric ulcer- with negative bx in Oct,. and IR embolization a few weeks ago for recurrent bleeding from ulcer- Hgb stable today- awaiting repeat bx results- looking for other reasons for poor healing ulcer- but clearly chronic med issues, ESRD, cirrhosis, alcohol and non compliance high on the list Clinically stable without obvious rebleeding at the present time. Plan Plan continue present plans CARLOS MCCALL MD Jul 26, 2019 11:01
[2019-07-26 15:00] VITALS: BP 130/66
[2019-07-26] MEDS: MORPHINE SULFATE 2 MG/ML VIAL. IV PRN (17:01)
[2019-07-26 19:00] VITALS: BP 125/78
[2019-07-26 23:00] VITALS: BP 125/78
[2019-07-27] MEDS: MORPHINE SULFATE 2 MG/ML VIAL. IV PRN (00:57)
[2019-07-27 03:00] VITALS: BP 130/56
[2019-07-27 07:00] VITALS: BP 147/56
[2019-07-27] MEDS: PANTOPRAZOLE 40 MG TABLET.DR. PO SCH (07:20)
[2019-07-27 07:27] LABS: BASO % 1 % (0-3); EOS # 0.1 x10^3/uL (0.0-0.7); EOS % 4 % (0-3); HEMATOCRIT 25.2 % (36.0-47.0); HEMOGLOBIN 8.4 g/dL (12.0-15.5); LYMPH # 0.8 x10^3/uL (1.0-4.8); LYMPH % 29 % (24-48); MEAN CORPUSCULAR HEMOGLOBIN 31 pg (25-35); MEAN CORPUSCULAR HGB CONC 33 g/dL (31-37); MEAN CORPUSCULAR VOLUME 93 fL (79-100); MONO # 0.4 x10^3/uL (0.0-1.1); MONO % 15 % (0-9); NEUT # 1.5 x10^3/uL (1.8-7.7); NEUT % 51 % (31-73); PLATELET COUNT 107 x10^3/uL (140-400); RED BLOOD COUNT 2.72 x10^6/uL (3.50-5.40); WHITE BLOOD COUNT 2.9 x10^3/uL (4.0-11.0)
[2019-07-27] MEDS: CARVEDILOL 12.5 MG TABLET. PO SCH (08:18)
[2019-07-27] MEDS: FOLIC ACID 1 MG TABLET. PO SCH (08:18)
[2019-07-27] MEDS: CALCIUM ACETATE 667 MG CAPSULE PO SCH ×2 (08:18→11:54)
[2019-07-27] MEDS: NYSTATIN TOPICAL POWDER 15GM BOTTLE. TP SCH (08:18)
[2019-07-27] MEDS: FOLIC/VIT B COMP W-C (RENAL) TABLET. PO SCH (08:18)
[2019-07-27] MEDS: LACTOBACILLUS RHAMNOSUS GG 1 CAPSULE. PO SCH (08:18)
--- NOTE | 2019-07-27 08:38 | PDOC ---
PROGRESS NOTES Chief Complaint Chief Complaint Upper GI bleed active bleeding in the stomach, adjacent to endoscopic clips. Subsequent coil embolization of the gastroduodenal artery and pancreaticoduodenal artery supplying this area of the stomach 07/09/19 Hematemesis ESRD Obesity Cirrhosis nonhealing ulcer hypoglycemia 07/27, monitor History of Present Illness History of Present Illness 07/27/19 IMPRESSION Pt was seen and examined bedside Pt was watching television EGD 07/24 Charts and labs reviewed WBC is 3.9, down from 5.7 Hb is 8.1 await bx active bleeding in the stomach, adjacent to endoscopic clips. Subsequent coil embolization of the gastroduodenal artery and pancreaticoduodenal artery supplying this area of the stomach 07/09 hypoglycemia noted cont PPI continue accuchecks pt is poor surgical candidate, given /// liver disease. 26 MIN PT EXAM, CHART REVIEW, > 50% OF TIME SPENT WITH EXAM, CHART REVIEW, PT CARE COORDINATION 07/23/19 Pt was seen and examined in the ICU Pt was sitting up in chair and watching television Asked if she could have chicken broth EPI RN Had occult blood in stool; needs to be kept NPO Approved transfer to medical floor 07/22/19 Pt was seen and examined in the ICU Was alert but weak EPI RN No bleeding as of today Says that she drinks 2 shots of whiskey everyday Procedure EGD/biopsies Indication: recurrent UGI bleeding/source unclear Meds: per anesthesia Findings: E--Healed reflux at 39 cm. G--clean-based ulcer, prepyloric in same location as last times. Biopsied rim, though appears w/o mass. Pylorus deformed, but passable. D--normal to second portion. Obdulio. well. IMP: Refractory ulcer, biopsies pending. Healed reflux. REC: Await biopsies. PO PPI bid. Would not go above full liquids this weekend. Seems ulcer will not be dealt with medically. Reconsider OR? surgery consulted Vitals Vitals Vital Signs Date Time Temp Pulse Resp B/P (MAP) Pulse Ox O2 Delivery O2 Flow Rate FiO2 07/27/19 08:18 76 147/56 07/27/19 07:00 97.9 18 96 Room Air 97.9 07/26/19 23:00 2.0 Physical Exam Physical Exam General Appearance: no apparent distress Skin: warm Respiratory: bilateral CTA Heart: S1S2, RRR Abdomen: soft, bowel sounds present Extremities: pulses present Neurology: alert, oriented General: Alert, Oriented X3, Cooperative, No acute distress Heart: Regular rate, Normal S1, Normal S2, No murmurs, Gallops Lungs: Clear Abdomen: Normal bowel sounds, Soft, No tenderness Extremities: No clubbing, No cyanosis, No edema, Normal pulses, No tenderness/swelling Skin: No rashes, No breakdown Labs LABS SEX: F EXAM STATUS: DIS IN ORD. PHYSICIAN: HAYDER MARLOW MD REASON: Bleeding prepyloric ulcer/failure of endoscopic treatment PROCEDURE: [id number] ANGIO [facility]ISCER[facility] 07/02/2019 6:40 AM Procedure: 1. Mesenteric angiography 2. Coil embolization of the gastroduodenal artery proximal pancreaticoduodenal artery Clinical Indication: Bleeding prepyloric ulcer/failure of endoscopic treatment Discussion: The procedure was explained in its entirety to the patient or the patients designated abrasives sales representative by a member of the treatment team, including a discussion of the risks, benefits and commonly accepted alternatives to the procedure, as well as the expected consequences of no therapy whatsoever. Discussion of the risks included, but was not limited to, those that are most frequent and those that are rare but possibly severe or life-threatening, as well as the possibility of unforeseen complications. All elements of maximal sterile barrier technique including the use of a cap, mask, sterile gown, sterile gloves, large sterile sheet, appropriate hand hygiene, and 2% chlorhexidine for cutaneous antisepsis (or acceptable alternative antiseptic per current guidelines) were followed for this procedure. The right groin was prepped and draped using the aforementioned sterile technique. Ultrasound evaluation demonstrates the right common femoral artery to be patent. 1% lidocaine was administered for local anesthesia. The right common femoral artery was accessed under direct ultrasound guidance, using micropuncture technique. A 5 Cambodian vascular sheath was placed. Reference ultrasound images were saved medical record. A Cobra 2 catheter was used to select to the celiac artery. Angiography was performed which is grossly unremarkable. Tortuous course of the gastroduodenal artery was noted. A microcatheter was used to select the gastroduodenal artery. Angiography was performed again demonstrating a possible small focus of extravasation adjacent to the endoscopically placed clip projecting over the expected region of the distal stomach. The microcatheter was advanced into the pancreaticoduodenal artery and subsequent angiograms obtained. These demonstrated active extravasation sedation of contrast surrounding the clip consistent with active GI bleeding. Supplying the gastroduodenal and pancreaticoduodenal arteries were embolized with coils. No further bleeding was identified. Collateralization between the SMA and gastroduodenal artery was identified. SMA injection was performed again no active bleeding was identified. Catheters and sheaths were removed. A closure device was used to achieve hemostasis the right common femoral puncture site. Sterile dressings were applied. No immediate complications were identified. Total fluoroscopy time: 24.6 min Dose area product: 717 Gycm2 The procedures performed under conscious sedation including continuous cardiopulmonary monitoring via dedicated sedation nurse. [id number] sedation time: 85 minutes Impression: Active bleeding in the stomach, adjacent to endoscopic clips. Subsequent coil embolization of the gastroduodenal artery and pancreaticoduodenal artery supplying this area of the stomach DICTATED and SIGNED BY: DIONISIO NOVAK MD DATE: 07/09/191424 Laboratory Tests Test 07/26/19 10:36 07/26/19 15:54 07/26/19 20:34 07/27/19 06:30 Glucose (Fingerstick) 112 mg/dL (70-99) 114 mg/dL (70-99) 141 mg/dL (70-99) White Blood Count 2.9 x10^3/uL (4.0-11.0) Red Blood Count 2.72 x10^6/uL (3.50-5.40) Hemoglobin 8.4 g/dL (12.0-15.5) Hematocrit 25.2 % (36.0-47.0) Mean Corpuscular Volume 93 fL (79-100) Mean Corpuscular Hemoglobin 31 pg (25-35) Mean Corpuscular Hemoglobin Concent 33 g/dL (31-37) Red Cell Distribution Width 18.0 % (11.5-14.5) Platelet Count 107 x10^3/uL (140-400) Neutrophils (%) (Auto) 51 % (31-73) Lymphocytes (%) (Auto) 29 % (24-48) Monocytes (%) (Auto) 15 % (0-9) Eosinophils (%) (Auto) 4 % (0-3) Basophils (%) (Auto) 1 % (0-3) Neutrophils # (Auto) 1.5 x10^3/uL (1.8-7.7) Lymphocytes # (Auto) 0.8 x10^3/uL (1.0-4.8) Monocytes # (Auto) 0.4 x10^3/uL (0.0-1.1) Eosinophils # (Auto) 0.1 x10^3/uL (0.0-0.7) Basophils # (Auto) 0.0 x10^3/uL (0.0-0.2) Test 07/27/19 07:39 Glucose (Fingerstick) 61 mg/dL (70-99) Assessment and Plan Assessmemt and Plan Problems Medical Problems: (1) Anemia Status: Chronic (2) Cirrhosis Status: Chronic (3) ESRD (end stage renal disease) on dialysis Status: Chronic (4) Rectal bleeding Status: Acute (5) Upper GI bleed Status: Acute Comment Review of Relevant I have reviewed the following items tamika (where applicable) has been applied. Labs Laboratory Tests Test 07/25/19 16:46 07/25/19 20:27 07/26/19 04:15 07/26/19 07:34 Glucose (Fingerstick) 109 mg/dL (70-99) 159 mg/dL (70-99) 85 mg/dL (70-99) White Blood Count 2.2 x10^3/uL (4.0-11.0) Red Blood Count 2.63 x10^6/uL (3.50-5.40) Hemoglobin 8.1 g/dL (12.0-15.5) Hematocrit 24.1 % (36.0-47.0) Mean Corpuscular Volume 92 fL (79-100) Mean Corpuscular Hemoglobin 31 pg (25-35) Mean Corpuscular Hemoglobin Concent 34 g/dL (31-37) Red Cell Distribution Width 17.5 % (11.5-14.5) Platelet Count 100 x10^3/uL (140-400) Neutrophils (%) (Auto) 50 % (31-73) Lymphocytes (%) (Auto) 32 % (24-48) Monocytes (%) (Auto) 14 % (0-9) Eosinophils (%) (Auto) 4 % (0-3) Basophils (%) (Auto) 1 % (0-3) Neutrophils # (Auto) 1.1 x10^3/uL (1.8-7.7) Lymphocytes # (Auto) 0.7 x10^3/uL (1.0-4.8) Monocytes # (Auto) 0.3 x10^3/uL (0.0-1.1) Eosinophils # (Auto) 0.1 x10^3/uL (0.0-0.7) Basophils # (Auto) 0.0 x10^3/uL (0.0-0.2) Sodium Level 142 mmol/L (136-145) Potassium Level 3.8 mmol/L (3.5-5.1) Chloride Level 104 mmol/L (98-107) Carbon Dioxide Level 31 mmol/L (21-32) Anion Gap 7 (6-14) Blood Urea Nitrogen 13 mg/dL (7-20) Creatinine 3.8 mg/dL (0.6-1.0) Estimated GFR (Cockcroft-Gault) 14.4 Glucose Level 91 mg/dL (70-99) Calcium Level 8.4 mg/dL (8.5-10.1) Phosphorus Level 3.7 mg/dL (2.6-4.7) Albumin 2.2 g/dL (3.4-5.0) Test 07/26/19 10:36 07/26/19 15:54 07/26/19 20:34 07/27/19 06:30 Glucose (Fingerstick) 112 mg/dL (70-99) 114 mg/dL (70-99) 141 mg/dL (70-99) White Blood Count 2.9 x10^3/uL (4.0-11.0) Red Blood Count 2.72 x10^6/uL (3.50-5.40) Hemoglobin 8.4 g/dL (12.0-15.5) Hematocrit 25.2 % (36.0-47.0) Mean Corpuscular Volume 93 fL (79-100) Mean Corpuscular Hemoglobin 31 pg (25-35) Mean Corpuscular Hemoglobin Concent 33 g/dL (31-37) Red Cell Distribution Width 18.0 % (11.5-14.5) Platelet Count 107 x10^3/uL (140-400) Neutrophils (%) (Auto) 51 % (31-73) Lymphocytes (%) (Auto) 29 % (24-48) Monocytes (%) (Auto) 15 % (0-9) Eosinophils (%) (Auto) 4 % (0-3) Basophils (%) (Auto) 1 % (0-3) Neutrophils # (Auto) 1.5 x10^3/uL (1.8-7.7) Lymphocytes # (Auto) 0.8 x10^3/uL (1.0-4.8) Monocytes # (Auto) 0.4 x10^3/uL (0.0-1.1) Eosinophils # (Auto) 0.1 x10^3/uL (0.0-0.7) Basophils # (Auto) 0.0 x10^3/uL (0.0-0.2) Test 07/27/19 07:39 Glucose (Fingerstick) 61 mg/dL (70-99) Laboratory Tests Test 07/26/19 10:36 07/26/19 15:54 07/26/19 20:34 07/27/19 06:30 Glucose (Fingerstick) 112 mg/dL (70-99) 114 mg/dL (70-99) 141 mg/dL (70-99) White Blood Count 2.9 x10^3/uL (4.0-11.0) Red Blood Count 2.72 x10^6/uL (3.50-5.40) Hemoglobin 8.4 g/dL (12.0-15.5) Hematocrit 25.2 % (36.0-47.0) Mean Corpuscular Volume 93 fL (79-100) Mean Corpuscular Hemoglobin 31 pg (25-35) Mean Corpuscular Hemoglobin Concent 33 g/dL (31-37) Red Cell Distribution Width 18.0 % (11.5-14.5) Platelet Count 107 x10^3/uL (140-400) Neutrophils (%) (Auto) 51 % (31-73) Lymphocytes (%) (Auto) 29 % (24-48) Monocytes (%) (Auto) 15 % (0-9) Eosinophils (%) (Auto) 4 % (0-3) Basophils (%) (Auto) 1 % (0-3) Neutrophils # (Auto) 1.5 x10^3/uL (1.8-7.7) Lymphocytes # (Auto) 0.8 x10^3/uL (1.0-4.8) Monocytes # (Auto) 0.4 x10^3/uL (0.0-1.1) Eosinophils # (Auto) 0.1 x10^3/uL (0.0-0.7) Basophils # (Auto) 0.0 x10^3/uL (0.0-0.2) Test 07/27/19 07:39 Glucose (Fingerstick) 61 mg/dL (70-99) Medications Current Medications Morphine Sulfate (Morphine Sulfate) 2 mg PRN Q15MIN PRN IV/SQ PAIN GREATER THAN 3/10 Last administered on 07/21/19at 09:46; Start 07/21/19 at 08:30; Stop 07/21/19 at 12:07; Status DC Pantoprazole Sodium (PROTONIX VIAL for IV PUSH) 40 mg 1X ONCE IVP Last administered on 07/21/19at 09:18; Start 07/21/19 at 08:30; Stop 07/21/19 at 08:32; Status DC Ondansetron HCl (Zofran) 4 mg 1X ONCE IV Last administered on 07/21/19at 09:46; Start 07/21/19 at 09:45; Stop 07/21/19 at 09:46; Status DC Pantoprazole Sodium 80 mg/ Sodium Chloride 100 ml @ 10 mls/hr Q10H IV Last administered on 07/24/19at 05:11; Start 07/21/19 at 09:45; Stop 07/24/19 at 15:05; Status DC Heparin Sodium (Porcine) (HEPARIN for NUC MED) 100 unit 1X ONCE IV ; Start 07/21/19 at 11:00; Stop 07/21/19 at 11:01; Status DC Sodium Chloride 1,000 ml @ 1,000 mls/hr Q1H PRN IV hypotension; Start 07/21/19 at 11:47; Stop 07/21/19 at 17:46; Status DC Info (PHARMACY MONITORING -- do not chart) 1 each PRN DAILY PRN MC SEE COMMENTS; Start 07/21/19 at 12:00; Stop 07/21/19 at 12:12; Status DC Info (PHARMACY MONITORING -- do not chart) 1 each PRN DAILY PRN MC SEE COMMENTS; Start 07/21/19 at 12:00; Stop 07/25/19 at 16:28; Status DC Morphine Sulfate (Morphine Sulfate) 2 mg PRN Q2HR PRN IV PAIN, 2ND CHOICE Last administered on 07/27/19at 00:57; Start 07/21/19 at 12:15 Ondansetron HCl (Zofran) 4 mg PRN Q6HRS PRN IV NAUSEA/VOMITING Last administered on 07/27/19at 00:47; Start 07/21/19 at 12:15 Ondansetron HCl (Zofran) 4 mg PRN Q8HRS PRN IV NAUSEA/VOMITING; Start 07/21/19 at 12:15; Stop 07/22/19 at 12:14; Status DC Darbepoetin [place] (ARANESP for DIALYSIS PTS) 60 mcg WEEKLYHS SQ Last administered on 07/21/19at 22:15; Start 07/21/19 at 21:00 Ringer's Solution 1,000 ml @ 100 mls/hr Q10H IV Last administered on 07/24/19at 00:38; Start 07/21/19 at 16:45; Stop 07/25/19 at 07:57; Status DC Midazolam HCl (Versed) 5 mg STK-MED ONCE .ROUTE ; Start 07/21/19 at 17:14; Stop 07/21/19 at 17:14; Status DC Fentanyl Citrate (Fentanyl 2ml Vial) 100 mcg STK-MED ONCE .ROUTE ; Start 07/21/19 at 17:14; Stop 07/21/19 at 17:14; Status DC Midazolam HCl (Versed) 5 mg STK-MED ONCE IV Last administered on 07/21/19at 17:37; Start 07/21/19 at 17:35; Stop 07/21/19 at 17:37; Status DC Fentanyl Citrate (Fentanyl 2ml Vial) 100 mcg STK-MED ONCE IV Last administered on 07/21/19at 17:37; Start 07/21/19 at 17:35; Stop 07/21/19 at 17:37; Status DC Midazolam HCl (Versed) 5 mg STK-MED ONCE IV Last administered on 07/21/19at 17:39; Start 07/21/19 at 17:37; Stop 07/21/19 at 17:39; Status DC Fentanyl Citrate (Fentanyl 2ml Vial) 100 mcg STK-MED ONCE IV Last administered on 07/21/19at 17:40; Start 07/21/19 at 17:38; Stop 07/21/19 at 17:40; Status DC Dextrose (Dextrose 50%-Water Syringe) 12.5 gm PRN Q15MIN PRN IV SEE COMMENTS Last administered on 07/23/19at 23:39; Start 07/21/19 at 18:45 Dextrose 250 ml PRN Q15MIN PRN IV SEE COMMENTS; Start 07/21/19 at 18:45 Hydromorphone HCl (Dilaudid) 1 mg PRN Q3HRS PRN IV PAIN, 1ST CHOICE Last administered on 07/23/19at 00:21; Start 07/21/19 at 21:45; Stop 07/23/19 at 18:58; Status DC Nystatin (Nystop) 1 leonila BID TP Last administered on 07/27/19at 08:18; Start 07/22/19 at 12:00 Sodium Chloride 1,000 ml @ 1,000 mls/hr Q1H PRN IV hypotension; Start 07/23/19 at 10:56; Stop 07/23/19 at 16:55; Status DC Sodium Chloride 1,000 ml @ 400 mls/hr Q2H30M PRN IV PATENCY; Start 07/23/19 at 10:56; Stop 07/23/19 at 22:55; Status DC Info (PHARMACY MONITORING -- do not chart) 1 each PRN DAILY PRN MC SEE COMMENTS; Start 07/23/19 at 11:00; Status UNV Info (PHARMACY MONITORING -- do not chart) 1 each PRN DAILY PRN MC SEE COMMENTS; Start 07/23/19 at 11:00; Status Cancel Diclofenac Sodium (Voltaren) 1 leonila BID TP Last administered on 07/26/19at 20:34; Start 07/23/19 at 21:00 Hydromorphone HCl (Dilaudid) 0.5 mg PRN Q1HR PRN IV pain Last administered on 07/24/19at 08:48; Start 07/23/19 at 19:00 Folic Acid (Folic Acid) 1 mg DAILY PO Last administered on 07/27/19at 08:18; Start 07/24/19 at 12:00 Vitamin B Complex/ Vitamin C (Yara-Edward) 1 tab DAILY PO Last administered on 07/27/19 08:18; Start 07/24/19 at 12:00 Acetaminophen/ Hydrocodone Bitart (Lortab 5/325) 1 tab PRN Q6HRS PRN PO PAIN Last administered on 07/26/19 14:59; Start 07/24/19 at 11:15 Lactobacillus Rhamnosus (Culturelle) 1 cap BID PO Last administered on 07/27/19 08:18; Start 07/24/19 at 12:00 Pantoprazole Sodium (Protonix) 40 mg DAILYAC PO ; Start 07/25/19 at 07:30; Status UNV Polyethylene Glycol (miraLAX PACKET) 17 gm PRN DAILY PRN PO CONSTIPATION; Start 07/24/19 at 11:15 Calcium Acetate (Phoslo) 667 mg TIDWMEALS PO Last administered on 07/27/19 08:18; Start 07/24/19 at 12:00 Carvedilol (Coreg) 25 mg BIDWMEALS PO Last administered on 07/27/19 08:18; Start 07/24/19 at 12:00 Ringer's Solution 1,000 ml @ 75 mls/hr [id number] IV ; Start 07/24/19 at 14:45; Stop 07/25/19 at 07:57; Status DC Propofol 20 ml @ As Directed STK-MED ONCE IV ; Start 07/24/19 at 14:44; Stop 07/24/19 at 14:44; Status DC Sodium Chloride 1,000 ml @ 30 mls/hr Q24H IV Last administered on 07/24/19at 14:47; Start 07/24/19 at 14:45; Stop 07/25/19 at 07:57; Status DC Pantoprazole Sodium (Protonix) 40 mg BIDAC PO Last administered on 07/27/19 07:20; Start 07/24/19 at 16:30 Diphenhydramine HCl (Benadryl) 50 mg PRN QHS PRN PO INSOMNIA Last administered on 07/25/19at 21:19; Start 07/24/19 at 21:15 Info (PHARMACY MONITORING -- do not chart) 1 each PRN DAILY PRN MC SEE COMMENTS; Start 07/25/19 at 08:15 Info (PHARMACY MONITORING -- do not chart) 1 each PRN DAILY PRN MC SEE COMMENTS; Start 07/25/19 at 08:15; Status UNV Active Scripts Active Hydrocodone-Apap 5-325 (Hydrocodone Bit/Acetaminophen) 1 Tab Tablet 1 Tab PO PRN Q6HRS PRN 6 Days Pantoprazole Sodium (Pantoprazole Sodium) 40 Mg Tablet.dr 40 Mg PO DAILYAC 30 Days Culturelle (Lactobacillus Rhamnosus Gg) 1 Each Cap.sprink 1 Cap PO BID 14 Days Reported Nephro-Edward Tablet (Folic Acid/Vitamin B Comp W-C) 0.8 Mg Tablet 1 Tab PO DAILY Calcium Acetate 667 Mg Tablet 667 Mg PO TIDWMEALS Carvedilol 25 Mg Tablet 25 Mg PO BID Folic Acid 1 Mg Tablet 1 Mg PO DAILY Miralax (Polyethylene Glycol 3350) 17 Gm Powd.pack 1 Packet PO PRN DAILY PRN Vitals/I & O Vital Sign - Last 24 Hours 07/26/19 07/26/19 07/26/19 07/26/19 08:43 08:43 09:43 11:00 Temp 98.1 98.1 Pulse 71 63 Resp 18 B/P (MAP) 123/52 117/56 (76) Pulse Ox 99 O2 Delivery Room Air Room Air Room Air 07/26/19 07/26/19 07/26/19 07/26/19 14:59 15:00 16:56 17:01 Temp 97.3 97.3 Pulse 71 71 Resp 18 B/P (MAP) 130/66 (87) 130/66 Pulse Ox 97 O2 Delivery Room Air Room Air Room Air 07/26/19 07/26/19 07/26/19 07/26/19 17:31 19:00 20:00 23:00 Temp 98.0 98.0 98.0 98.0 Pulse 68 68 Resp 18 18 B/P (MAP) 125/78 (94) 125/78 (94) Pulse Ox 97 97 O2 Delivery Room Air Room Air Room Air Room Air O2 Flow Rate 2.0 07/27/19 07/27/19 07/27/19 07/27/19 00:57 01:27 03:00 07:00 Temp 98.6 97.9 98.6 97.9 Pulse 69 76 Resp 18 18 18 18 B/P (MAP) 130/56 (80) 147/56 (86) Pulse Ox 97 96 96 96 O2 Delivery Room Air Room Air Room Air Room Air 07/27/19 08:18 Pulse 76 B/P (MAP) 147/56 Intake and Output 0 07/26/19 07/26/19 07/27/19 15:00 23:00 07:00 Intake Total 420 ml 120 ml 240 ml Balance 420 ml 120 ml 240 ml ASHIA MOSS MD Jul 27, 2019 08:38
[2019-07-27] MEDS: DICLOFENAC SODIUM 1% TOPICAL GEL 100GM TUBE. TP SCH (09:50)
--- NOTE | 2019-07-27 09:51 | PDOC ---
SURGICAL PROGRESS NOTE Subjective Pt appears to be doing well, taiwo diet, no evidence of bleeding Vital Signs Vital Signs Date Time Temp Pulse Resp B/P (MAP) Pulse Ox O2 Delivery O2 Flow Rate FiO2 07/27/19 08:18 76 147/56 07/27/19 08:00 Room Air 07/27/19 07:00 97.9 18 96 97.9 07/26/19 23:00 2.0 I&O Intake and Output 07/27/19 07:00 Intake Total 780 ml Balance 780 ml Intake Oral 780 ml # Voids 1 General: Alert, Oriented X3, Cooperative, No acute distress Abdomen: Soft, No tenderness Labs Laboratory Tests Test 07/25/19 16:46 07/25/19 20:27 07/26/19 04:15 07/26/19 07:34 Glucose (Fingerstick) 109 mg/dL (70-99) 159 mg/dL (70-99) 85 mg/dL (70-99) White Blood Count 2.2 x10^3/uL (4.0-11.0) Red Blood Count 2.63 x10^6/uL (3.50-5.40) Hemoglobin 8.1 g/dL (12.0-15.5) Hematocrit 24.1 % (36.0-47.0) Mean Corpuscular Volume 92 fL (79-100) Mean Corpuscular Hemoglobin 31 pg (25-35) Mean Corpuscular Hemoglobin Concent 34 g/dL (31-37) Red Cell Distribution Width 17.5 % (11.5-14.5) Platelet Count 100 x10^3/uL (140-400) Neutrophils (%) (Auto) 50 % (31-73) Lymphocytes (%) (Auto) 32 % (24-48) Monocytes (%) (Auto) 14 % (0-9) Eosinophils (%) (Auto) 4 % (0-3) Basophils (%) (Auto) 1 % (0-3) Neutrophils # (Auto) 1.1 x10^3/uL (1.8-7.7) Lymphocytes # (Auto) 0.7 x10^3/uL (1.0-4.8) Monocytes # (Auto) 0.3 x10^3/uL (0.0-1.1) Eosinophils # (Auto) 0.1 x10^3/uL (0.0-0.7) Basophils # (Auto) 0.0 x10^3/uL (0.0-0.2) Sodium Level 142 mmol/L (136-145) Potassium Level 3.8 mmol/L (3.5-5.1) Chloride Level 104 mmol/L (98-107) Carbon Dioxide Level 31 mmol/L (21-32) Anion Gap 7 (6-14) Blood Urea Nitrogen 13 mg/dL (7-20) Creatinine 3.8 mg/dL (0.6-1.0) Estimated GFR (Cockcroft-Gault) 14.4 Glucose Level 91 mg/dL (70-99) Calcium Level 8.4 mg/dL (8.5-10.1) Phosphorus Level 3.7 mg/dL (2.6-4.7) Albumin 2.2 g/dL (3.4-5.0) Test 07/26/19 10:36 07/26/19 15:54 07/26/19 20:34 07/27/19 06:30 Glucose (Fingerstick) 112 mg/dL (70-99) 114 mg/dL (70-99) 141 mg/dL (70-99) White Blood Count 2.9 x10^3/uL (4.0-11.0) Red Blood Count 2.72 x10^6/uL (3.50-5.40) Hemoglobin 8.4 g/dL (12.0-15.5) Hematocrit 25.2 % (36.0-47.0) Mean Corpuscular Volume 93 fL (79-100) Mean Corpuscular Hemoglobin 31 pg (25-35) Mean Corpuscular Hemoglobin Concent 33 g/dL (31-37) Red Cell Distribution Width 18.0 % (11.5-14.5) Platelet Count 107 x10^3/uL (140-400) Neutrophils (%) (Auto) 51 % (31-73) Lymphocytes (%) (Auto) 29 % (24-48) Monocytes (%) (Auto) 15 % (0-9) Eosinophils (%) (Auto) 4 % (0-3) Basophils (%) (Auto) 1 % (0-3) Neutrophils # (Auto) 1.5 x10^3/uL (1.8-7.7) Lymphocytes # (Auto) 0.8 x10^3/uL (1.0-4.8) Monocytes # (Auto) 0.4 x10^3/uL (0.0-1.1) Eosinophils # (Auto) 0.1 x10^3/uL (0.0-0.7) Basophils # (Auto) 0.0 x10^3/uL (0.0-0.2) Test 07/27/19 07:39 07/27/19 09:08 Glucose (Fingerstick) 61 mg/dL (70-99) 187 mg/dL (70-99) Laboratory Tests Test 07/26/19 10:36 07/26/19 15:54 07/26/19 20:34 07/27/19 06:30 Glucose (Fingerstick) 112 mg/dL (70-99) 114 mg/dL (70-99) 141 mg/dL (70-99) White Blood Count 2.9 x10^3/uL (4.0-11.0) Red Blood Count 2.72 x10^6/uL (3.50-5.40) Hemoglobin 8.4 g/dL (12.0-15.5) Hematocrit 25.2 % (36.0-47.0) Mean Corpuscular Volume 93 fL (79-100) Mean Corpuscular Hemoglobin 31 pg (25-35) Mean Corpuscular Hemoglobin Concent 33 g/dL (31-37) Red Cell Distribution Width 18.0 % (11.5-14.5) Platelet Count 107 x10^3/uL (140-400) Neutrophils (%) (Auto) 51 % (31-73) Lymphocytes (%) (Auto) 29 % (24-48) Monocytes (%) (Auto) 15 % (0-9) Eosinophils (%) (Auto) 4 % (0-3) Basophils (%) (Auto) 1 % (0-3) Neutrophils # (Auto) 1.5 x10^3/uL (1.8-7.7) Lymphocytes # (Auto) 0.8 x10^3/uL (1.0-4.8) Monocytes # (Auto) 0.4 x10^3/uL (0.0-1.1) Eosinophils # (Auto) 0.1 x10^3/uL (0.0-0.7) Basophils # (Auto) 0.0 x10^3/uL (0.0-0.2) Test 07/27/19 07:39 07/27/19 09:08 Glucose (Fingerstick) 61 mg/dL (70-99) 187 mg/dL (70-99) Problem List Problems Medical Problems: (1) Anemia Status: Chronic (2) Cirrhosis Status: Chronic (3) ESRD (end stage renal disease) on dialysis Status: Chronic (4) Rectal bleeding Status: Acute (5) Upper GI bleed Status: Acute Assessment/Plan UGI bleed appears stabilized. OK to work on d/c pt is poor surgical candidate LILLIE TERRY MD Jul 27, 2019 09:51
[2019-07-27 11:00] VITALS: BP 127/54
--- NOTE | 2019-07-27 11:34 | PDOC ---
Subjective: Subjective: Had a dark stool. Feeling better, tolerating diet. Asks what surgery would involve. Using Voltaren on hands, also has some right lower back pain. Objective: Vital Signs: Vital Signs Date Time Temp Pulse Resp B/P (MAP) Pulse Ox O2 Delivery O2 Flow Rate FiO2 07/27/19 08:18 76 147/56 07/27/19 08:00 Room Air 07/27/19 07:00 97.9 18 96 97.9 07/26/19 23:00 2.0 Labs: Laboratory Tests Test 07/26/19 15:54 07/26/19 20:34 07/27/19 06:30 07/27/19 07:39 Glucose (Fingerstick) 114 mg/dL 141 mg/dL 61 mg/dL White Blood Count 2.9 x10^3/uL Red Blood Count 2.72 x10^6/uL Hemoglobin 8.4 g/dL Hematocrit 25.2 % Mean Corpuscular Volume 93 fL Mean Corpuscular Hemoglobin 31 pg Mean Corpuscular Hemoglobin Concent 33 g/dL Red Cell Distribution Width 18.0 % Platelet Count 107 x10^3/uL Neutrophils (%) (Auto) 51 % Lymphocytes (%) (Auto) 29 % Monocytes (%) (Auto) 15 % Eosinophils (%) (Auto) 4 % Basophils (%) (Auto) 1 % Neutrophils # (Auto) 1.5 x10^3/uL Lymphocytes # (Auto) 0.8 x10^3/uL Monocytes # (Auto) 0.4 x10^3/uL Eosinophils # (Auto) 0.1 x10^3/uL Basophils # (Auto) 0.0 x10^3/uL Test 07/27/19 09:08 Glucose (Fingerstick) 187 mg/dL Imaging: EGD 07/24 E--Healed reflux at 39 cm. G--clean-based ulcer, prepyloric in same location as last times. Biopsied rim, though appears w/o mass. Pylorus deformed, but passable. D--normal to second portion. IMP: Refractory ulcer, biopsies pending. Healed reflux. REC: Await biopsies. PO PPI bid. Would not go above full liquids this weekend. Seems ulcer will not be dealt with medically. Reconsider OR? PE: GEN: NAD LUNGS: CTAB HEART: RRR ABD: S/ND/NT NEURO/PSYCH: A & O 3 A/P: Recurrent/non-healing pre-pyloric gastric ulcer - two admissions this month for bleeding (three EGDs and previous IR embolization), on BID PPI here ESRD on HD, GERD, cirrhosis (Hep C, alcohol - still drinks) -- Bleeding resolving, Hgb improved. Path pending. Dr. Clemente following - poor surgical candidate. ?another option besides Voltaren/NSAID for pain - defer to primary SEGUNDO-IRIS COOK Jul 27, 2019 11:34
--- NOTE | 2019-07-27 13:35 | PDOC3 ---
Discharge Summary Date of Admission: Jul 21, 2019 Date of Discharge: Jul 27, 2019 Follow-Up: 3-5 days Admitting Diagnosis comment: discharge dx pt insists on d/c today despite low glucose earlier 07/27 Chief Complaint Upper GI bleed active bleeding in the stomach, adjacent to endoscopic clips. Subsequent coil embolization of the gastroduodenal artery and pancreaticoduodenal artery supplying this area of the stomach 07/09/19 Hematemesis ESRD Obesity Cirrhosis nonhealing ulcer hypoglycemia 07/27, monitor History of Present Illness History of Present Illness 07/27/19 IMPRESSION Pt was seen and examined bedside Pt was watching television EGD 07/24 Charts and labs reviewed WBC is 3.9, down from 5.7 Hb is 8.1 await bx active bleeding in the stomach, adjacent to endoscopic clips. Subsequent coil embolization of the gastroduodenal artery and pancreaticoduodenal artery supplying this area of the stomach 07/09 hypoglycemia noted cont PPI continue accuchecks pt is poor surgical candidate, given /// liver disease. 26 MIN PT EXAM, CHART REVIEW d/c planning , > 50% OF TIME SPENT WITH EXAM, CHART REVIEW, PT CARE COORDINATION 07/23/19 Pt was seen and examined in the ICU Pt was sitting up in chair and watching television Asked if she could have chicken broth EPI RN Had occult blood in stool; needs to be kept NPO Approved transfer to medical floor 07/22/19 Pt was seen and examined in the ICU Was alert but weak EPI RN No bleeding as of today Says that she drinks 2 shots of whiskey everyday Procedure EGD/biopsies Indication: recurrent UGI bleeding/source unclear Meds: per anesthesia Findings: E--Healed reflux at 39 cm. G--clean-based ulcer, prepyloric in same location as last times. Biopsied rim, though appears w/o mass. Pylorus deformed, but passable. D--normal to second portion. Obdulio. well. IMP: Refractory ulcer, biopsies pending. Healed reflux. REC: Await biopsies. PO PPI bid. Would not go above full liquids this weekend. Seems ulcer will not be dealt with medically. Reconsider OR? surgery consulted Vitals Vitals Vital Signs Date Time Temp Pulse Resp B/P (MAP) Pulse Ox O2 Delivery O2 Flow Rate FiO2 07/27/19 08:18 76 147/56 9/30/19 07:00 97.9 18 96 Room Air 97.9 07/26/19 23:00 2.0 Physical Exam Physical Exam General Appearance: no apparent distress Skin: warm Respiratory: bilateral CTA Heart: S1S2, RRR Abdomen: soft, bowel sounds present Extremities: pulses present Neurology: alert, oriented General: Alert, Oriented X3, Cooperative, No acute distress Heart: Regular rate, Normal S1, Normal S2, No murmurs, Gallops Lungs: Clear Abdomen: Normal bowel sounds, Soft, No tenderness Extremities: No clubbing, No cyanosis, No edema, Normal pulses, No tenderness/swelling Skin: No rashes, No breakdown Labs LABS SEX: F EXAM STATUS: DIS IN ORD. PHYSICIAN: HAYDER MARLOW MD REASON: Bleeding prepyloric ulcer/failure of endoscopic treatment PROCEDURE: [id number] ANGIO VISCER[facility] 07/02/2019 6:40 AM Procedure: 1. Mesenteric angiography 2. Coil embolization of the gastroduodenal artery proximal pancreaticoduodenal artery Clinical Indication: Bleeding prepyloric ulcer/failure of endoscopic treatment Discussion: The procedure was explained in its entirety to the patient or the patients designated wine sales representative by a member of the treatment team, including a discussion of the risks, benefits and commonly accepted alternatives to the procedure, as well as the expected consequences of no therapy whatsoever. Discussion of the risks included, but was not limited to, those that are most frequent and those that are rare but possibly severe or life-threatening, as well as the possibility of unforeseen complications. All elements of maximal sterile barrier technique including the use of a cap, mask, sterile gown, sterile gloves, large sterile sheet, appropriate hand hygiene, and 2% chlorhexidine for cutaneous antisepsis (or acceptable alternative antiseptic per current guidelines) were followed for this procedure. The right groin was prepped and draped using the aforementioned sterile technique. Ultrasound evaluation demonstrates the right common femoral artery to be patent. 1% lidocaine was administered for local anesthesia. The right common femoral artery was accessed under direct ultrasound guidance, using micropuncture technique. A 5 Sinhala vascular sheath was placed. Reference ultrasound images were saved medical record. A Cobra 2 catheter was used to select to the celiac artery. Angiography was performed which is grossly unremarkable. Tortuous course of the gastroduodenal artery was noted. A microcatheter was used to select the gastroduodenal artery. Angiography was performed again demonstrating a possible small focus of extravasation adjacent to the endoscopically placed clip projecting over the expected region of the distal stomach. The microcatheter was advanced into the pancreaticoduodenal artery and subsequent angiograms obtained. These demonstrated active extravasation sedation of contrast surrounding the clip consistent with active GI bleeding. Supplying the gastroduodenal and pancreaticoduodenal arteries were embolized with coils. No further bleeding was identified. Collateralization between the SMA and gastroduodenal artery was identified. SMA injection was performed again no active bleeding was identified. Catheters and sheaths were removed. A closure device was used to achieve hemostasis the right common femoral puncture site. Sterile dressings were applied. No immediate complications were identified. Total fluoroscopy time: 24.6 min Dose area product: 717 Gycm2 The procedures performed under conscious sedation including continuous cardiopulmonary monitoring via dedicated sedation nurse. Icau-re-glde sedation time: 85 minutes Impression: Active bleeding in the stomach, adjacent to endoscopic clips. Subsequent coil embolization of the gastroduodenal artery and pancreaticoduodenal artery supplying this area of the stomach FINAL DIAGNOSIS Problems Medical Problems: (1) Anemia Status: Chronic (2) Cirrhosis Status: Chronic (3) ESRD (end stage renal disease) on dialysis Status: Chronic (4) Rectal bleeding Status: Acute (5) Upper GI bleed Status: Acute Brief Hospital Course Ms. Fernandez is a 64 old [sex] who presented with [active gi bleed ] CONDITION AT DISCHARGE: Improved Discharge Medications Current Medications Morphine Sulfate (Morphine Sulfate) 2 mg PRN Q15MIN PRN IV/SQ PAIN GREATER THAN 3/10 Last administered on 07/21/19at 09:46; Start 07/21/19 at 08:30; Stop 07/21/19 at 12:07; Status DC Pantoprazole Sodium (PROTONIX VIAL for IV PUSH) 40 mg 1X ONCE IVP Last administered on 07/21/19at 09:18; Start 07/21/19 at 08:30; Stop 07/21/19 at 08:32; Status DC Ondansetron HCl (Zofran) 4 mg 1X ONCE IV Last administered on 07/21/19at 09:46; Start 07/21/19 at 09:45; Stop 07/21/19 at 09:46; Status DC Pantoprazole Sodium 80 mg/ Sodium Chloride 100 ml @ 10 mls/hr Q10H IV Last administered on 07/24/19at 05:11; Start 07/21/19 at 09:45; Stop 07/24/19 at 15:05; Status DC Heparin Sodium (Porcine) (HEPARIN for NUC MED) 100 unit 1X ONCE IV ; Start 07/21/19 at 11:00; Stop 07/21/19 at 11:01; Status DC Sodium Chloride 1,000 ml @ 1,000 mls/hr Q1H PRN IV hypotension; Start 07/21/19 at 11:47; Stop 07/21/19 at 17:46; Status DC Info (PHARMACY MONITORING -- do not chart) 1 each PRN DAILY PRN MC SEE COMMENTS; Start 07/21/19 at 12:00; Stop 07/21/19 at 12:12; Status DC Info (PHARMACY MONITORING -- do not chart) 1 each PRN DAILY PRN MC SEE COMMENTS; Start 07/21/19 at 12:00; Stop 07/25/19 at 16:28; Status DC Morphine Sulfate (Morphine Sulfate) 2 mg PRN Q2HR PRN IV PAIN, 2ND CHOICE Last administered on 07/27/19at 00:57; Start 07/21/19 at 12:15 Ondansetron HCl (Zofran) 4 mg PRN Q6HRS PRN IV NAUSEA/VOMITING Last administered on 07/27/19at 00:47; Start 07/21/19 at 12:15 Ondansetron HCl (Zofran) 4 mg PRN Q8HRS PRN IV NAUSEA/VOMITING; Start 07/21/19 at 12:15; Stop 07/22/19 at 12:14; Status DC Darbepoetin Bol[place]ar (ARANESP for DIALYSIS PTS) 60 mcg WEEKLYHS SQ Last administered on 07/21/19at 22:15; Start 07/21/19 at 21:00 Ringer's Solution 1,000 ml @ 100 mls/hr Q10H IV Last administered on 07/24/19at 00:38; Start 07/21/19 at 16:45; Stop 07/25/19 at 07:57; Status DC Midazolam HCl (Versed) 5 mg STK-MED ONCE .ROUTE ; Start 07/21/19 at 17:14; Stop 07/21/19 at 17:14; Status DC Fentanyl Citrate (Fentanyl 2ml Vial) 100 mcg STK-MED ONCE .ROUTE ; Start 07/21/19 at 17:14; Stop 07/21/19 at 17:14; Status DC Midazolam HCl (Versed) 5 mg STK-MED ONCE IV Last administered on 07/21/19at 17:37; Start 07/21/19 at 17:35; Stop 07/21/19 at 17:37; Status DC Fentanyl Citrate (Fentanyl 2ml Vial) 100 mcg STK-MED ONCE IV Last administered on 07/21/19at 17:37; Start 07/21/19 at 17:35; Stop 07/21/19 at 17:37; Status DC Midazolam HCl (Versed) 5 mg STK-MED ONCE IV Last administered on 07/21/19at 17:39; Start 07/21/19 at 17:37; Stop 07/21/19 at 17:39; Status DC Fentanyl Citrate (Fentanyl 2ml Vial) 100 mcg STK-MED ONCE IV Last administered on 07/21/19at 17:40; Start 07/21/19 at 17:38; Stop 07/21/19 at 17:40; Status DC Dextrose (Dextrose 50%-Water Syringe) 12.5 gm PRN Q15MIN PRN IV SEE COMMENTS Last administered on 07/23/19at 23:39; Start 07/21/19 at 18:45 Dextrose 250 ml PRN Q15MIN PRN IV SEE COMMENTS; Start 07/21/19 at 18:45 Hydromorphone HCl (Dilaudid) 1 mg PRN Q3HRS PRN IV PAIN, 1ST CHOICE Last administered on 07/23/19at 00:21; Start 07/21/19 at 21:45; Stop 07/23/19 at 18:58; Status DC Nystatin (Nystop) 1 leonila BID TP Last administered on 07/27/19at 08:18; Start 07/22/19 at 12:00 Sodium Chloride 1,000 ml @ 1,000 mls/hr Q1H PRN IV hypotension; Start 07/23/19 at 10:56; Stop 07/23/19 at 16:55; Status DC Sodium Chloride 1,000 ml @ 400 mls/hr Q2H30M PRN IV PATENCY; Start 07/23/19 at 10:56; Stop 07/23/19 at 22:55; Status DC Info (PHARMACY MONITORING -- do not chart) 1 each PRN DAILY PRN MC SEE COMMENTS; Start 07/23/19 at 11:00; Status UNV Info (PHARMACY MONITORING -- do not chart) 1 each PRN DAILY PRN MC SEE COMMENTS; Start 07/23/19 at 11:00; Status Cancel Diclofenac Sodium (Voltaren) 1 leonila BID TP Last administered on 07/27/19at 09:50; Start 07/23/19 at 21:00 Hydromorphone HCl (Dilaudid) 0.5 mg PRN Q1HR PRN IV pain Last administered on 07/24/19 08:48; Start 07/23/19 at 19:00 Folic Acid (Folic Acid) 1 mg DAILY PO Last administered on 07/27/19 08:18; Start 07/24/19 at 12:00 Vitamin B Complex/ Vitamin C (Yara-Edward) 1 tab DAILY PO Last administered on 07/27/19 08:18; Start 07/24/19 at 12:00 Acetaminophen/ Hydrocodone Bitart (Lortab 5/325) 1 tab PRN Q6HRS PRN PO PAIN Last administered on 07/26/19 14:59; Start 07/24/19 at 11:15 Lactobacillus Rhamnosus (Culturelle) 1 cap BID PO Last administered on 07/27/19 08:18; Start 07/24/19 at 12:00 Pantoprazole Sodium (Protonix) 40 mg DAILYAC PO ; Start 07/25/19 at 07:30; Status UNV Polyethylene Glycol (miraLAX PACKET) 17 gm PRN DAILY PRN PO CONSTIPATION; Start 07/24/19 at 11:15 Calcium Acetate (Phoslo) 667 mg TIDWMEALS PO Last administered on 07/27/19 11:54; Start 07/24/19 at 12:00 Carvedilol (Coreg) 25 mg BIDWMEALS PO Last administered on 07/27/19 08:18; Start 07/24/19 at 12:00 Ringer's Solution 1,000 ml @ 75 mls/hr [id number] IV ; Start 07/24/19 at 14:45; Stop 07/25/19 at 07:57; Status DC Propofol 20 ml @ As Directed STK-MED ONCE IV ; Start 07/24/19 at 14:44; Stop 07/24/19 at 14:44; Status DC Sodium Chloride 1,000 ml @ 30 mls/hr Q24H IV Last administered on 07/24/19at 14:47; Start 07/24/19 at 14:45; Stop 07/25/19 at 07:57; Status DC Pantoprazole Sodium (Protonix) 40 mg BIDAC PO Last administered on 07/27/19at 07:20; Start 07/24/19 at 16:30 Diphenhydramine HCl (Benadryl) 50 mg PRN QHS PRN PO INSOMNIA Last administered on 07/25/19at 21:19; Start 07/24/19 at 21:15 Info (PHARMACY MONITORING -- do not chart) 1 each PRN DAILY PRN MC SEE COMMENTS; Start 07/25/19 at 08:15 Info (PHARMACY MONITORING -- do not chart) 1 each PRN DAILY PRN MC SEE COMMENTS; Start 07/25/19 at 08:15; Status UNV Active Scripts Active Hydrocodone-Apap 5-325 (Hydrocodone Bit/Acetaminophen) 1 Tab Tablet 1 Tab PO PRN Q6HRS PRN 6 Days Pantoprazole Sodium (Pantoprazole Sodium) 40 Mg Tablet.dr 40 Mg PO DAILYAC 30 Days Culturelle (Lactobacillus Rhamnosus Gg) 1 Each Cap.sprink 1 Cap PO BID 14 Days Reported Nephro-Edward Tablet (Folic Acid/Vitamin B Comp W-C) 0.8 Mg Tablet 1 Tab PO DAILY Calcium Acetate 667 Mg Tablet 667 Mg PO TIDWMEALS Carvedilol 25 Mg Tablet 25 Mg PO BID Folic Acid 1 Mg Tablet 1 Mg PO DAILY Miralax (Polyethylene Glycol 3350) 17 Gm Powd.pack 1 Packet PO PRN DAILY PRN Vital Signs Vital Signs Date Time Temp Pulse Resp B/P (MAP) Pulse Ox O2 Delivery O2 Flow Rate FiO2 07/27/19 11:00 97.9 98 18 127/54 (78) 96 Room Air 97.9 07/26/19 23:00 2.0 Labs Laboratory Tests Test 07/25/19 16:46 07/25/19 20:27 07/26/19 04:15 07/26/19 07:34 Glucose (Fingerstick) 109 mg/dL (70-99) 159 mg/dL (70-99) 85 mg/dL (70-99) White Blood Count 2.2 x10^3/uL (4.0-11.0) Red Blood Count 2.63 x10^6/uL (3.50-5.40) Hemoglobin 8.1 g/dL (12.0-15.5) Hematocrit 24.1 % (36.0-47.0) Mean Corpuscular Volume 92 fL (79-100) Mean Corpuscular Hemoglobin 31 pg (25-35) Mean Corpuscular Hemoglobin Concent 34 g/dL (31-37) Red Cell Distribution Width 17.5 % (11.5-14.5) Platelet Count 100 x10^3/uL (140-400) Neutrophils (%) (Auto) 50 % (31-73) Lymphocytes (%) (Auto) 32 % (24-48) Monocytes (%) (Auto) 14 % (0-9) Eosinophils (%) (Auto) 4 % (0-3) Basophils (%) (Auto) 1 % (0-3) Neutrophils # (Auto) 1.1 x10^3/uL (1.8-7.7) Lymphocytes # (Auto) 0.7 x10^3/uL (1.0-4.8) Monocytes # (Auto) 0.3 x10^3/uL (0.0-1.1) Eosinophils # (Auto) 0.1 x10^3/uL (0.0-0.7) Basophils # (Auto) 0.0 x10^3/uL (0.0-0.2) Sodium Level 142 mmol/L (136-145) Potassium Level 3.8 mmol/L (3.5-5.1) Chloride Level 104 mmol/L (98-107) Carbon Dioxide Level 31 mmol/L (21-32) Anion Gap 7 (6-14) Blood Urea Nitrogen 13 mg/dL (7-20) Creatinine 3.8 mg/dL (0.6-1.0) Estimated GFR (Cockcroft-Gault) 14.4 Glucose Level 91 mg/dL (70-99) Calcium Level 8.4 mg/dL (8.5-10.1) Phosphorus Level 3.7 mg/dL (2.6-4.7) Albumin 2.2 g/dL (3.4-5.0) Test 07/26/19 10:36 07/26/19 15:54 07/26/19 20:34 07/27/19 06:30 Glucose (Fingerstick) 112 mg/dL (70-99) 114 mg/dL (70-99) 141 mg/dL (70-99) White Blood Count 2.9 x10^3/uL (4.0-11.0) Red Blood Count 2.72 x10^6/uL (3.50-5.40) Hemoglobin 8.4 g/dL (12.0-15.5) Hematocrit 25.2 % (36.0-47.0) Mean Corpuscular Volume 93 fL (79-100) Mean Corpuscular Hemoglobin 31 pg (25-35) Mean Corpuscular Hemoglobin Concent 33 g/dL (31-37) Red Cell Distribution Width 18.0 % (11.5-14.5) Platelet Count 107 x10^3/uL (140-400) Neutrophils (%) (Auto) 51 % (31-73) Lymphocytes (%) (Auto) 29 % (24-48) Monocytes (%) (Auto) 15 % (0-9) Eosinophils (%) (Auto) 4 % (0-3) Basophils (%) (Auto) 1 % (0-3) Neutrophils # (Auto) 1.5 x10^3/uL (1.8-7.7) Lymphocytes # (Auto) 0.8 x10^3/uL (1.0-4.8) Monocytes # (Auto) 0.4 x10^3/uL (0.0-1.1) Eosinophils # (Auto) 0.1 x10^3/uL (0.0-0.7) Basophils # (Auto) 0.0 x10^3/uL (0.0-0.2) Test 07/27/19 07:39 07/27/19 09:08 07/27/19 11:31 Glucose (Fingerstick) 61 mg/dL (70-99) 187 mg/dL (70-99) 141 mg/dL (70-99) Laboratory Tests Test 07/26/19 15:54 07/26/19 20:34 07/27/19 06:30 07/27/19 07:39 Glucose (Fingerstick) 114 mg/dL (70-99) 141 mg/dL (70-99) 61 mg/dL (70-99) White Blood Count 2.9 x10^3/uL (4.0-11.0) Red Blood Count 2.72 x10^6/uL (3.50-5.40) Hemoglobin 8.4 g/dL (12.0-15.5) Hematocrit 25.2 % (36.0-47.0) Mean Corpuscular Volume 93 fL (79-100) Mean Corpuscular Hemoglobin 31 pg (25-35) Mean Corpuscular Hemoglobin Concent 33 g/dL (31-37) Red Cell Distribution Width 18.0 % (11.5-14.5) Platelet Count 107 x10^3/uL (140-400) Neutrophils (%) (Auto) 51 % (31-73) Lymphocytes (%) (Auto) 29 % (24-48) Monocytes (%) (Auto) 15 % (0-9) Eosinophils (%) (Auto) 4 % (0-3) Basophils (%) (Auto) 1 % (0-3) Neutrophils # (Auto) 1.5 x10^3/uL (1.8-7.7) Lymphocytes # (Auto) 0.8 x10^3/uL (1.0-4.8) Monocytes # (Auto) 0.4 x10^3/uL (0.0-1.1) Eosinophils # (Auto) 0.1 x10^3/uL (0.0-0.7) Basophils # (Auto) 0.0 x10^3/uL (0.0-0.2) Test 07/27/19 09:08 07/27/19 11:31 Glucose (Fingerstick) 187 mg/dL (70-99) 141 mg/dL (70-99) Allergies Allergies Coded Allergies Type Severity Reaction Last Updated Verified acetaminophen Adverse Reaction Intermediate Nausea and Vomiting 07/24/19 Yes Disposition/Orders: D/C to Home, D/C to Home w/ HH Patient Instructions d./c planning 26 min ASHIA MOSS MD Jul 27, 2019 13:35
[2019-07-27] MEDS ORDERED: NYST60PO TP (13:36)
--- NOTE | 2019-07-27 13:39 | SNU/HH DC ---
DISCHARGE WITH HOME HEALTH DISCHARGE INFORMATION: Final Diagnosis: Problems Medical Problems: (1) Anemia Status: Chronic (2) Cirrhosis Status: Chronic (3) ESRD (end stage renal disease) on dialysis Status: Chronic (4) Rectal bleeding Status: Acute (5) Upper GI bleed Status: Acute Condition on Discharge: Stable CODE STATUS: Code Status: Full HOME HEALTH: Face to Face: I certify this patient is under my care and that I, or a nurse practitioner or physician's graduate research assistant working with me, had a face to face encounter that meets the physician face to face encounter requirements with this patient on []. RN For Eval/Treatment: Yes Physical Therapy For: Evalulation/Treatment Occupational Therapy For: Evaluation/Treatment Home Health Aide For: Self-care RAIL TRANSPORTATION TABELER For: Community Resources Pt Meets Homebound Status: Unsteady balance w/ amb,, Fatigue w/ amb. POST DISCHARGE ORDERS: Activity Instructions for Disc: Activity as tolerated Weight Bearing Status after Di: As tolerated DIET AFTER DISCHARGE: ADA Wound/Incision Care: No wound care needed CHECKS AFTER DISCHARGE: Checks after discharge: Check blood press - daily, Check blood sugar, ac/hs, Check your Temp as needed, Weigh Yourself Daily TREATMENT/EQUIPMENT ORDERS: Adaptive Equipment Issued: None CERTIFICATION STATEMENT: Certification Statement: Certification Statement: Based on the above finding, I certify that this patient is confined to the home and needs intermittent half-way care, physical therapy and/or speech therapy, or continues to need occupational therapy.~ This patient is under my care, and I have initiated the establishment of the plan of care.~ This patient will be followed by myself or a community physician who will periodically review the plan of care. Home Meds Active Scripts Nystatin (NYSTOP) 60 Gm Powder, 1 DAWNA TP BID for rash for 14 Days, #60 MISC Prov:ASHIA MOSS MD 07/27/19 Pantoprazole Sodium (PANTOPRAZOLE SODIUM ) 40 Mg Tablet.dr, 40 MG PO DAILYAC for Bleeding ulcer for 30 Days, #30 TAB.SR 5 Refills Prov:MELY OLVERA MD 07/04/19 Lactobacillus Rhamnosus Gg (CULTURELLE) 1 Each Cap.sprink, 1 CAP PO BID for 14 Days, #28 CAP Prov:NORA KNIGHT MD 03/06/18 Reported Medications Folic Acid/Vitamin B Comp W-C (NEPHRO-NAKUL TABLET) 0.8 Mg Tablet, 1 TAB PO DAILY for VITAMIN 11/03/18 Calcium Acetate (CALCIUM ACETATE) 667 Mg Tablet, 667 MG PO TIDWMEALS for PHOSPHORUS BINDER 11/03/18 Carvedilol (CARVEDILOL) 25 Mg Tablet, 25 MG PO BID for HYPERTENSION 11/03/18 Folic Acid (FOLIC ACID) 1 Mg Tablet, 1 MG PO DAILY for VITAMIN 11/03/18 Polyethylene Glycol 3350 (MIRALAX) 17 Gm Powd.pack, 1 PACKET PO PRN DAILY PRN for CONSTIPATION, #30 PACKET 3 Refills 05/30/18 Discontinued Scripts Hydrocodone Bit/Acetaminophen (HYDROCODONE-APAP 5-325 ) 1 Tab Tablet, 1 TAB PO PRN Q6HRS PRN for PAIN for 6 Days, #15 TAB Prov:MELY OLVERA MD 07/04/19 ASHIA MOSS MD Jul 27, 2019 13:39
[2019-07-27] MEDS: HYDROcodone/APAP 5/325MG 1 TAB TABLET PO PRN (14:06)
--- NOTE | 2019-07-27 16:06 | NUR ---
Discharge Note: [facility] [address] Discharge instructions and discharge home medications reviewed with Patient and a copy given. All questions have been answered and understanding verbalized. The following instructions and handouts were given: discharge instructions, education and follow up recommendations. Discontinued lines and drains: Peripheral IV discontinued intact. Patient discharged to Home w/services with self in cab via Wheelchair off unit by VACUUM METALIZER OPERATOR.
--- NOTE | 2019-07-28 15:07 | PATHOLOGY ---
[facility] Accession Number: [id number] . 01 Material submitted: . stomach - GASTRIC ULCER BIOPSY . 01 Clinical history: . GI bleed . 02 Diagnosis: Gastric biopsies, gastric ulcer: - Reactive gastropathy with focal mild acute and chronic inflammation. (JPM:bettye; 07/28/2019) QMS 07/28/2019 0916 Local . 02 Comment: Sections of the gastric ulcer biopsy reveal segments of gastric antral mucosa which show foveolar hyperplasia, focal edema, and focal mild acute and chronic inflammation. A properly controlled immunoperoxidase stain for Helicobacter is negative for Helicobacter organisms. The findings are consistent with a reactive gastropathy showing focal mild acute and chronic inflammation. There is no evidence of malignancy. (JPM:bettye; 07/28/2019) . . Special stain performed: Immunoperoxidase stain for Helicobacter. . 02 Electronically signed: . Huy Guidry MD, Pathologist NPI- [id number] . 01 Gross description: . The specimen is received in formalin, labeled "Jim, Pam, gastric ulcer" and consists of multiple fragments of soft sandoval tissue measuring 1.2 x 0.6 x 0.3 cm in aggregate which are entirely submitted in A1. (SDY; 07/27/2019) SYU/SYU 07/28/2019 0913 Local . 02 Pathologist provided ICD-10: K29.00, K29.50, K31.9 . 02 CPT . 767440, F64418 Specimen Comment: A courtesy copy of this report has been sent to Specimen Comment: [phone], , . Specimen Comment: Report sent to ,DR GAMEZ / DR MORENO Specimen Comment: Report sent to Performed at: 01 [facility] [address], [place], [place] [id number] MD Toro Santos MD Phone: [phone] Performed at: 02 [facility] [address] [place], [place] [id number] MD Huy Guidry MD Phone: [phone]
[2019-09-08] MEDS ORDERED: HYDR-2761 PO (13:00)
== END 2019-07-27 16:08 | disposition home health service (06) | DRG 377 ==
LOC: ER 08:16 → ED HOLD 09:50 → 1 WEST ICU 12:28 → 5 SOUTH 07-24 12:45
PROVIDERS: ADMIT Internal Medicine; ATTEND Internal Medicine
PROC: 30233N1 Transfusion of Nonautologous Red Blood Cells into Peripheral Vein, Percutaneous Approach (ICD-10-PCS; 2019-07-21)
PROC: 5A1D70Z Performance of Urinary Filtration, Intermittent, Less than 6 Hours Per Day (ICD-10-PCS; 2019-07-21)
PROC: 0DJ08ZZ Inspection of Upper Intestinal Tract, Via Natural or Artificial Opening Endoscopic (ICD-10-PCS; principal; 2019-07-21 16:30)
PROC: 5A1D70Z Performance of Urinary Filtration, Intermittent, Less than 6 Hours Per Day (ICD-10-PCS; 2019-07-23)
PROC: 0DB68ZX Excision of Stomach, Via Natural or Artificial Opening Endoscopic, Diagnostic (ICD-10-PCS; 2019-07-24)
PROC: 5A1D70Z Performance of Urinary Filtration, Intermittent, Less than 6 Hours Per Day (ICD-10-PCS; 2019-07-25)
PROC: 5A1D70Z Performance of Urinary Filtration, Intermittent, Less than 6 Hours Per Day (ICD-10-PCS; 2019-07-27)
DX: K25.4 Chronic or unspecified gastric ulcer with hemorrhage (principal); N18.6 End stage renal disease; S32.591A Other specified fracture of right pubis, initial encounter for closed fracture; E46 Unspecified protein-calorie malnutrition; I12.0 Hypertensive chronic kidney disease with stage 5 chronic kidney disease or end stage renal disease; E78.00 Pure hypercholesterolemia, unspecified; E11.22 Type 2 diabetes mellitus with diabetic chronic kidney disease; E78.5 Hyperlipidemia, unspecified; E87.5 Hyperkalemia; K21.0 Gastro-esophageal reflux disease with esophagitis; N20.0 Calculus of kidney; D64.9 Anemia, unspecified; M06.9 Rheumatoid arthritis, unspecified; E21.3 Hyperparathyroidism, unspecified; E11.649 Type 2 diabetes mellitus with hypoglycemia without coma; K74.60 Unspecified cirrhosis of liver; E66.9 Obesity, unspecified; B19.20 Unspecified viral hepatitis C without hepatic coma; Z68.37 Body mass index [BMI] 37.0-37.9, adult; Z88.8 Allergy status to other drugs, medicaments and biological substances; Z90.711 Acquired absence of uterus with remaining cervical stump; Z99.2 Dependence on renal dialysis; Z91.19 Patient's noncompliance with other medical treatment and regimen
CPT/HCPCS: 36415; 43235; 43239; 73120; 74176; 80048; 80053; 80069; 82271; 82274; 82553; 82962; 83690; 83735; 85014; 85018; 85025; 85027; 85610; 85730; 86850; 86900; 86901; 86920; 88305; 88342; 93005; 96374; 96375; C9113; G0500; J0882; J1170; J2250; J2270; J2405; J2704; J3010; J7030; J7042; J7120; P9016; Q0163; 99285-25; G0378

== ENCOUNTER 2019-09-21 16:03 | Inpatient (IN) | payer OTHER, MEDICAID ==
[~2019-09-21] VITALS: Ht 157.5 cm; Wt 83.9 kg
[2019-09-21] VITALS (7 sets, daily range): BP systolic 187–199; BP diastolic 80–90
[~2019-09-21 16:03] MED LIST changes: +NYST60PO TP
--- NOTE | 2019-09-21 16:53 | PHYS DOC ---
Past Medical History Past Medical History: Diabetes-Type II, High Cholesterol, Heart Disease, Hypertension, Renal Failure Additional Past Medical Histor: DIARRHEA Past Surgical History: Cholecystectomy, Hysterectomy, Tonsillectomy Additional Past Surgical Histo: RT KNEE, SHUNT RIGHT CHEST, dialysis graft, RT femur repair with fermin Alcohol Use: Occasionally Drug Use: None Adult General Chief Complaint Chief Complaint: ABDOMINAL PAIN HPI HPI Patient is a 64 year old female who presents with nausea and abdominal pain that started yesterday around 6 clock p.m. However the patient states that she does still this chronically. The patient is a dialysis patient and also has a history of bleeding ulcers. Patient rates her pain as 10 out of 10 in severity. The patient states that she's been feeling nauseous been unable to throw up. States that she last had dialysis on Saturday. The patient was supposed go to dialysis today but did not go. Patient also states she did not take her medications today. Review of Systems Review of Systems Constitutional: Denies fever or chills [] Eyes: Denies change in visual acuity, redness, or eye pain [] HENT: Denies nasal congestion or sore throat [] Respiratory: Denies cough or shortness of breath [] Cardiovascular: No additional information not addressed in HPI [] GI: Reports abdominal pain, nausea, Denies vomiting, bloody stools or diarrhea [] : Denies dysuria or hematuria [] Musculoskeletal: Denies back pain or joint pain [] Integument: Denies rash or skin lesions [] Neurologic: Denies headache, focal weakness or sensory changes [] Endocrine: Denies polyuria or polydipsia [] Complete systems were reviewed and found to be within normal limits, except as documented in this note. Current Medications Current Medications Current Medications Medications (Trade) Dose Ordered Sig/Kimberly Start Time Stop Time Status Last Admin Dose Admin Fentanyl Citrate (Fentanyl 2ml Vial) 50 mcg PRN Q1HR PRN 09/21/19 19:00 09/22/19 18:59 Labetalol HCl (Normodyne Iv Push) 20 mg 1X STAT 09/21/19 18:51 09/21/19 18:52 DC 09/21/19 19:12 20 MG Ondansetron HCl (Zofran) 4 mg PRN Q8HRS PRN 09/21/19 19:00 09/22/19 18:59 Allergies Allergies Allergies Coded Allergies Type Severity Reaction Last Updated Verified acetaminophen Adverse Reaction Intermediate Nausea and Vomiting 07/24/19 Yes Physical Exam Physical Exam Constitutional: Well developed, well nourished, no acute distress, non-toxic appearance. [] HENT: Normocephalic, atraumatic, bilateral external ears normal, oropharynx moist, no oral exudates, nose normal. [] Eyes: PERRLA, EOMI, conjunctiva normal, no discharge. [] Neck: Normal range of motion, no tenderness, supple, no stridor. [] Cardiovascular:Heart rate regular rhythm, no murmur [] Lungs & Thorax: Bilateral breath sounds clear to auscultation [] Abdomen: Bowel sounds normal, soft, diffuse tenderness, no masses, no pulsatile masses. [] Skin: Warm, dry, no erythema, no rash. [] Back: No tenderness, no CVA tenderness. [] Extremities: No tenderness, no cyanosis, no clubbing, ROM intact, no edema. [] Neurologic: Alert and oriented X 3, normal motor function, normal sensory function, no focal deficits noted. [] Psychologic: Affect normal, judgement normal, mood normal. [] Current Patient Data Vital Signs Vital Signs Date Time Temp Pulse Resp B/P (MAP) Pulse Ox O2 Delivery O2 Flow Rate FiO2 09/21/19 19:12 93 221/94 09/21/19 19:02 Room Air 09/21/19 16:20 98.2 16 96 98.2 Lab Values Laboratory Tests Test 09/21/19 16:26 09/21/19 17:30 White Blood Count 3.3 x10^3/uL (4.0-11.0) L Red Blood Count 2.12 x10^6/uL (3.50-5.40) L Hemoglobin 6.5 g/dL (12.0-15.5) *L Hematocrit 20.0 % (36.0-47.0) *L Mean Corpuscular Volume 94 fL (79-100) Mean Corpuscular Hemoglobin 31 pg (25-35) Mean Corpuscular Hemoglobin Concent 33 g/dL (31-37) Red Cell Distribution Width 18.6 % (11.5-14.5) H Platelet Count 192 x10^3/uL (140-400) Neutrophils (%) (Auto) 77 % (31-73) H Lymphocytes (%) (Auto) 13 % (24-48) L Monocytes (%) (Auto) 9 % (0-9) Eosinophils (%) (Auto) 0 % (0-3) Basophils (%) (Auto) 1 % (0-3) Neutrophils # (Auto) 2.5 x10^3/uL (1.8-7.7) Lymphocytes # (Auto) 0.4 x10^3/uL (1.0-4.8) L Monocytes # (Auto) 0.3 x10^3/uL (0.0-1.1) Eosinophils # (Auto) 0.0 x10^3/uL (0.0-0.7) Basophils # (Auto) 0.0 x10^3/uL (0.0-0.2) Lactic Acid Level 1.2 mmol/L (0.4-2.0) Troponin I Quantitative < 0.017 ng/mL (0.000-0.055) Sodium Level 132 mmol/L (136-145) L Potassium Level 3.6 mmol/L (3.5-5.1) Chloride Level 90 mmol/L (98-107) L Carbon Dioxide Level 32 mmol/L (21-32) Anion Gap 10 (6-14) Blood Urea Nitrogen 31 mg/dL (7-20) H Creatinine 5.4 mg/dL (0.6-1.0) H Estimated GFR (Cockcroft-Gault) 9.6 BUN/Creatinine Ratio 6 (6-20) Glucose Level 118 mg/dL (70-99) H Calcium Level 9.3 mg/dL (8.5-10.1) Total Bilirubin 0.8 mg/dL (0.2-1.0) Aspartate Amino Transferase (AST) 46 U/L (15-37) H Alanine Aminotransferase (ALT) 18 U/L (14-59) Alkaline Phosphatase 164 U/L (46-116) H Total Protein 8.8 g/dL (6.4-8.2) H Albumin 3.4 g/dL (3.4-5.0) Albumin/Globulin Ratio 0.6 (1.0-1.7) L Lipase 127 U/L (73-393) Laboratory Tests 09/21/19 16:26 Laboratory Tests 09/21/19 17:30 EKG EKG EKG interpreted by Dr. Deysi Ace with rate of 95, No STEMI. Radiology/Procedures Radiology/Procedures [][facility] [address] [place] [address] IMAGING REPORT Signed PATIENT: CESAR AGEECOUNT: [id number] : 1955 LOCATION: ER AGE: 64 SEX: F EXAM STATUS: REG ER ORD. PHYSICIAN: HAYDER VIGIL APRN REASON: nausea, abdominal pain. PROCEDURE: CT ABDOMEN PELVIS WO CONTRAST Exam: CT abdomen and pelvis without contrast INDICATION: Nausea, abdominal pain TECHNIQUE: Sequential axial images through the abdomen and pelvis obtained without IV contrast. Sagittal and coronal reformatted images were reconstructed from the axial data and reviewed. Comparisons: 09/06/2019 FINDINGS: Heart is enlarged. No pericardial effusion. Mitral annular calcifications are noted. No pericardial effusion. Linear bandlike opacities are noted at the lung bases bilaterally, likely representing atelectasis. Small bilateral pleural effusions. Evaluation of the solid organs is limited secondary to noncontrast technique. Question micronodular contour the liver. Liver is enlarged. Spleen and adrenals are unremarkable. Diffuse inflammatory changes surrounding the pancreas. No discrete fluid collection is identified. No perinephric inflammation or hydronephrosis. Nonobstructing 3 mm calculus at the mid right kidney. No ureteral calculi. Bladder is decompressed not well evaluated. Uterus is absent. No abnormal adnexal mass. Abdominal aorta has a normal course and caliber. Several calcified right common iliac lymph nodes are noted. Redemonstration of fracture deformity at the right pubis and inferior pubic rami. No suspicious osseous lesions or acute fractures. IMPRESSION: 1. Redemonstrated inflammatory changes surrounding the pancreas favored represent edematous pancreatitis. No discrete peripancreatic fluid collection is identified. 2. Moderate amount of free fluid within the abdomen, may be reactive to the prior process. Question micronodular contour the liver. Correlate with LFTs this may relate to underlying cirrhosis. 3. Redemonstration of fracture deformity involving the right pubic ramus. 4. Other stable chronic findings described above. Exposure: One or more of the following in the visualized dose reduction techniques were utilized for this examination: 1. Automated exposure control 2. Adjustment of the MA and/or KV according to patient size 3. Use of iterative of reconstructive technique Electronically signed by: Ross Hirsch MD (09/21/2019 5:36 PM) [facility] DICTATED and SIGNED BY: ROSS HIRSCH MD DATE: 09/21/19 1734 Course & Med Decision Making Course & Med Decision Making Pertinent Labs and Imaging studies reviewed. (See chart for details) Will get CT w/o contrast (Dialysis patient), labs, and UA. Will give supportive care. CT: IMPRESSION: 1. Redemonstrated inflammatory changes surrounding the pancreas favored represent edematous pancreatitis. No discrete peripancreatic fluid collection is identified. 2. Moderate amount of free fluid within the abdomen, may be reactive to the prior process. Question micronodular contour the liver. Correlate with LFTs this may relate to underlying cirrhosis. 3. Redemonstration of fracture deformity involving the right pubic ramus. 4. Other stable chronic findings described above. Labs: WBC 3.3, Lactic 1.2, Lipase 127, AST 46, Hemoglobin is 6.5 Although lipase is negative based on clinical symptoms and CT patient appears to have edematous pancreatitis. Will page Nephrology to determine plan of care on patient. Nephrology recommends 1 unit of blood and dialysis tomorrow. Discussed with Dr. Mcintyre who accepts admission. Dragon Disclaimer Dragon Disclaimer This electronic medical record was generated, in whole or in part, using a voice recognition dictation system. Departure Departure Impression: Primary Impression: Acute pancreatitis Additional Impressions: Missed dialysis Accelerated hypertension Anemia Disposition: 09 ADMITTED INPATIENT Admitting Physician: HIMS Condition: GUARDED Referrals: NO PCP (PCP) Problem Qualifiers Additional Impressions: Anemia Anemia type: unspecified type Qualified Codes: D64.9 - Anemia, unspecified HAYDER VIGIL MANAGER [facility] Sep 21, 2019 16:53
[2019-09-21 16:59] LABS: BASO % 1 % (0-3); EOS % 0 % (0-3); LYMPH # 0.4 x10^3/uL (1.0-4.8); LYMPH % 13 % (24-48); MEAN CORPUSCULAR HEMOGLOBIN 31 pg (25-35); MEAN CORPUSCULAR HGB CONC 33 g/dL (31-37); MEAN CORPUSCULAR VOLUME 94 fL (79-100); MONO # 0.3 x10^3/uL (0.0-1.1); MONO % 9 % (0-9); NEUT # 2.5 x10^3/uL (1.8-7.7); NEUT % 77 % (31-73); PLATELET COUNT 192 x10^3/uL (140-400); RED BLOOD COUNT 2.12 x10^6/uL (3.50-5.40); RED CELL DISTRIBUTION WIDTH 18.6 % (11.5-14.5); WHITE BLOOD COUNT 3.3 x10^3/uL (4.0-11.0)
[2019-09-21] MEDS ORDERED: fentaNYL PF VIAL 100 MCG/2 ML VIAL IV ONE (17:00)
[2019-09-21] MEDS ORDERED: ONDANSETRON PF 4 MG/2 ML VIAL. IV ONE (17:00)
[2019-09-21 17:05] LABS: HEMOGLOBIN 6.5 g/dL (12.0-15.5)
--- NOTE | 2019-09-21 17:39 | RAD ---
Exam: CT abdomen and pelvis without contrast INDICATION: Nausea, abdominal pain TECHNIQUE: Sequential axial images through the abdomen and pelvis obtained without IV contrast. Sagittal and coronal reformatted images were reconstructed from the axial data and reviewed. Comparisons: 09/06/2019 FINDINGS: Heart is enlarged. No pericardial effusion. Mitral annular calcifications are noted. No pericardial effusion. Linear bandlike opacities are noted at the lung bases bilaterally, likely representing atelectasis. Small bilateral pleural effusions. Evaluation of the solid organs is limited secondary to noncontrast technique. Question micronodular contour the liver. Liver is enlarged. Spleen and adrenals are unremarkable. Diffuse inflammatory changes surrounding the pancreas. No discrete fluid collection is identified. No perinephric inflammation or hydronephrosis. Nonobstructing 3 mm calculus at the mid right kidney. No ureteral calculi. Bladder is decompressed not well evaluated. Uterus is absent. No abnormal adnexal mass. Abdominal aorta has a normal course and caliber. Several calcified right common iliac lymph nodes are noted. Redemonstration of fracture deformity at the right pubis and inferior pubic rami. No suspicious osseous lesions or acute fractures. IMPRESSION: 1. Redemonstrated inflammatory changes surrounding the pancreas favored represent edematous pancreatitis. No discrete peripancreatic fluid collection is identified. 2. Moderate amount of free fluid within the abdomen, may be reactive to the prior process. Question micronodular contour the liver. Correlate with LFTs this may relate to underlying cirrhosis. 3. Redemonstration of fracture deformity involving the right pubic ramus. 4. Other stable chronic findings described above. Exposure: One or more of the following in the visualized dose reduction techniques were utilized for this examination: 1. Automated exposure control 2. Adjustment of the MA and/or KV according to patient size 3. Use of iterative of reconstructive technique Electronically signed by: Ross Vergara MD (09/21/2019 5:36 PM) [facility] [id number]
[2019-09-21 17:47] LABS: CALCIUM 9.3 mg/dL (8.5-10.1); CREATININE 5.4 mg/dL (0.6-1.0); GFR 9.6; POTASSIUM 3.6 mmol/L (3.5-5.1)
[2019-09-21 18:01] LABS: ALBUMIN 3.4 g/dL (3.4-5.0); ALBUMIN/GLOBULIN RATIO 0.6 (1.0-1.7); TOTAL BILIRUBIN 0.8 mg/dL (0.2-1.0); TOTAL PROTEIN 8.8 g/dL (6.4-8.2)
[2019-09-21] MEDS ORDERED: fentaNYL PF VIAL 100 MCG/2 ML VIAL IV STA (18:33)
[2019-09-21] MEDS ORDERED: LABETALOL 20 MG/4 ML DISP.SYRIN. IVP STA (18:51)
[2019-09-21] MEDS ORDERED: ONDANSETRON PF 4 MG/2 ML VIAL. IV PRN (19:00)
--- NOTE | 2019-09-21 19:15 | EKG ---
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
[2019-09-21] MEDS ORDERED: POLYETHYLENE GLYCOL 3350 17 GM PACKET. PO PRN (21:15)
--- NOTE | 2019-09-21 22:00 | NUR ---
The patient, CESAR AGEE, 64 y/o, F admitted by MELY OLVERA MD, was given written information regarding hospital policies, unit procedures and contact persons. Valuables were checked and noted. Patient denies pain at this time. Patient is currently laying in bed with eyes closed. 1 unit of blood is currently hanging, it was started in the ED. This RN will continue to monitor the patient at this time.
--- NOTE | 2019-09-21 23:47 | RAD ---
PA and lateral chest radiographs 09/21/2019 CLINCAL HISTORY: Epigastric pain. PA and lateral digital radiographs of the chest were obtained. Comparison study is dated 11/03/2018. The cardiac silhouette is mildly enlarged. The thoracic aorta is tortuous. Atherosclerotic calcification of the thoracic aorta is seen. There are small bilateral pleural effusions. Prominence of the pulmonary vasculature and interstitial markings in both lungs is seen consistent with mild to moderate CHF. No pneumothorax is noted. Degenerative changes are seen involving the thoracic spine. Surgical clips are seen within the upper abdomen. IMPRESSION: Findings consistent with mild to moderate CHF. Electronically signed by: Leonardo Guerrero MD (09/21/2019 11:44 PM) [facility]
[2019-09-22] MEDS: fentaNYL PF VIAL 100 MCG/2 ML VIAL IV PRN ×5 (00:45→17:42)
[2019-09-22 00:48] VITALS: BP 167/77
[2019-09-22 03:55] VITALS: BP 191/88
[2019-09-22 07:00] VITALS: BP 171/83
[2019-09-22] MEDS ORDERED: PANTOPRAZOLE 40 MG TABLET.DR. PO SCH (07:30)
[2019-09-22] MEDS: CALCIUM ACETATE 667 MG CAPSULE PO SCH ×3 (08:00→17:00)
[2019-09-22] MEDS: CARVEDILOL 12.5 MG TABLET. PO SCH ×2 (08:00→17:00)
--- NOTE | 2019-09-22 08:13 | PDOC1 ---
History and Physical Date of Admission Date of Admission DATE: 09/22/19 TIME: 08:13 Identification/Chief Complaint Chief Complaint SEEN IN ER , 64 year old female who presents with nausea and abdominal pain that started yesterday around 6 clock p.m 09/21. However the patient states that she does still this chronically. The patient is a dialysis patient and also has a history of bleeding ulcers. Patient rates her pain as 10 out of 10 in severity. The patient states that she's been feeling nauseous been unable to throw up. States that she last had dialysis on Saturday. The patient was supposed go to dialysis 09/21 but did not go DRANK GIN THIS WEEKEND Past Medical History Past Medical History Past Medical History Past Medical History Past Medical History: Diabetes-Type II, High Cholesterol, Heart Disease, Hypertension, Renal Failure Additional Past Medical Histor: DIARRHEA Past Surgical History: Cholecystectomy, Hysterectomy, Tonsillectomy Additional Past Surgical Histo: RT KNEE, SHUNT RIGHT CHEST, dialysis graft, RT femur repair with fermin Alcohol Use: Occasionally Drug Use: None FHX HTN Cardiovascular: HTN, Hyperlipidemia Pulmonary: No pertinent hx GI: Constipation, GERD, GI bleed Heme/Onc: Anemia NOS Hepatobiliary: No pertinent hx, Hep A/B/C Psych: Addictions Rheumatologic: Rheumatoid arthritis Infectious disease: No pertinent hx Renal/: Chronic renal failure, Hematuria Endocrine: Diabetes, Hyperparathyroidism Past Surgical History Past Surgical History: Cholecystectomy, Tonsillectomy, Hysterectomy, Other Family History Family History: Alcohol Abuse, High Cholestrol, Hypertension, Family History Unknown Social History Smoke: No ALCOHOL: occassional Drugs: None Current Problem List Problem List Problems Medical Problems: (1) Accelerated hypertension Status: Acute (2) Acute pancreatitis Status: Acute (3) Anemia Status: Chronic (4) Missed dialysis Status: Acute Current Medications Current Medications Current Medications Ondansetron HCl (Zofran) 4 mg 1X ONCE IV Last administered on 09/21/19at 17:04; Start 09/21/19 at 17:00; Stop 09/21/19 at 17:01; Status DC Fentanyl Citrate (Fentanyl 2ml Vial) 50 mcg 1X ONCE IV Last administered on 09/21/19at 17:04; Start 09/21/19 at 17:00; Stop 09/21/19 at 17:01; Status DC Fentanyl Citrate (Fentanyl 2ml Vial) 50 mcg 1X STAT IV Last administered on 09/21/19at 19:02; Start 09/21/19 at 18:33; Stop 09/21/19 at 18:36; Status DC Labetalol HCl (Normodyne Iv Push) 20 mg 1X STAT IVP Last administered on 09/21/19at 19:12; Start 09/21/19 at 18:51; Stop 09/21/19 at 18:52; Status DC Ondansetron HCl (Zofran) 4 mg PRN Q8HRS PRN IV NAUSEA/VOMITING Last administered on 09/22/19at 04:57; Start 09/21/19 at 19:00; Stop 09/22/19 at 18:59 Fentanyl Citrate (Fentanyl 2ml Vial) 50 mcg PRN Q1HR PRN IV PAIN Last administered on 09/22/19at 05:58; Start 09/21/19 at 19:00; Stop 09/22/19 at 18:59 Folic Acid (Folic Acid) 1 mg DAILY PO ; Start 09/22/19 at 09:00 Vitamin B Complex/ Vitamin C (Yara-Edward) 1 tab DAILY PO ; Start 09/22/19 at 09:00 Lactobacillus Rhamnosus (Culturelle) 1 cap BID PO ; Start 09/22/19 at 09:00 Pantoprazole Sodium (Protonix) 40 mg DAILYAC PO ; Start 09/22/19 at 07:30 Polyethylene Glycol (miraLAX PACKET) 17 gm PRN DAILY PRN PO CONSTIPATION 1ST CHOICE; Start 09/21/19 at 21:15 Carvedilol (Coreg) 25 mg BIDWMEALS PO ; Start 09/22/19 at 08:00 Calcium Acetate (Phoslo) 667 mg TIDWMEALS PO ; Start 09/22/19 at 08:00 Active Scripts Active Pantoprazole Sodium (Pantoprazole Sodium) 40 Mg Tablet.dr 40 Mg PO DAILYAC 30 Days Culturelle (Lactobacillus Rhamnosus Gg) 1 Each Cap.sprink 1 Cap PO BID 14 Days Reported Nephro-Edward Tablet (Folic Acid/Vitamin B Comp W-C) 0.8 Mg Tablet 1 Tab PO DAILY Calcium Acetate 667 Mg Tablet 667 Mg PO TIDWMEALS Carvedilol 25 Mg Tablet 25 Mg PO BID Folic Acid 1 Mg Tablet 1 Mg PO DAILY Miralax (Polyethylene Glycol 3350) 17 Gm Powd.pack 1 Packet PO PRN DAILY PRN Allergies Allergies: Coded Allergies: acetaminophen (Verified Adverse Reaction, Intermediate, Nausea and Vomiting, 07/24/19) ROS Review of System Review of Systems Review of Systems Constitutional: Denies fever or chills [] Eyes: Denies change in visual acuity, redness, or eye pain [] HENT: Denies nasal congestion or sore throat [] Respiratory: Denies cough or shortness of breath [] Cardiovascular: No additional information not addressed in HPI [] GI: Reports abdominal pain, nausea, Denies vomiting, bloody stools or diarrhea [] : Denies dysuria or hematuria [] Musculoskeletal: Denies back pain or joint pain [] Integument: Denies rash or skin lesions [] Neurologic: Denies headache, focal weakness or sensory changes [] Endocrine: Denies polyuria or polydipsia [] 14 PT systems were reviewed and found to be within normal limits, except as documented ALLERGY AND IMMUNOLOGY: No: Hives, Insect Bite Sensitivity, Itchy/Watery Eyes, Nasal Congestion, Post Nasal Drip, Seasonal Allergies, Other Physical Exam Physical Exam Physical Exam Physical Exam Constitutional: Well developed, well nourished, no acute distress, non-toxic appearance. [] HENT: Normocephalic, atraumatic, bilateral external ears normal, oropharynx moist, no oral exudates, nose normal. [] Eyes: PERRLA, EOMI, conjunctiva normal, no discharge. [] Neck: Normal range of motion, no tenderness, supple, no stridor. [] Cardiovascular:Heart rate regular rhythm, no murmur [] Lungs & Thorax: Bilateral breath sounds clear to auscultation [] Abdomen: Bowel sounds normal, soft, diffuse tenderness, no masses, no pulsatile masses. [] Skin: Warm, dry, no erythema, no rash. [] Back: No tenderness, no CVA tenderness. [] Extremities: No tenderness, no cyanosis, no clubbing, ROM intact, no edema. [] Neurologic: Alert and oriented X 3, normal motor function, normal sensory function, no focal deficits noted. [] Psychologic: Affect normal, judgement normal, mood normal. [] General: Alert, Oriented X3, Cooperative, No acute distress HEENT: EOMI Lungs: Normal air movement Heart: no thrills Breasts: Not examined Rectal Exam: not examined Neuro: Normal speech, Cranial nerves 3-12 NL Psych/Mental Status: Mental status NL, Mood NL Vitals Vitals Vital Signs Date Time Temp Pulse Resp B/P (MAP) Pulse Ox O2 Delivery O2 Flow Rate FiO2 09/22/19 07:00 98.4 90 18 171/83 (112) 94 Nasal Cannula 2.0 98.4 Labs Labs Laboratory Tests Test 09/21/19 16:26 09/21/19 17:30 White Blood Count 3.3 x10^3/uL (4.0-11.0) Red Blood Count 2.12 x10^6/uL (3.50-5.40) Hemoglobin 6.5 g/dL (12.0-15.5) Hematocrit 20.0 % (36.0-47.0) Mean Corpuscular Volume 94 fL (79-100) Mean Corpuscular Hemoglobin 31 pg (25-35) Mean Corpuscular Hemoglobin Concent 33 g/dL (31-37) Red Cell Distribution Width 18.6 % (11.5-14.5) Platelet Count 192 x10^3/uL (140-400) Neutrophils (%) (Auto) 77 % (31-73) Lymphocytes (%) (Auto) 13 % (24-48) Monocytes (%) (Auto) 9 % (0-9) Eosinophils (%) (Auto) 0 % (0-3) Basophils (%) (Auto) 1 % (0-3) Neutrophils # (Auto) 2.5 x10^3/uL (1.8-7.7) Lymphocytes # (Auto) 0.4 x10^3/uL (1.0-4.8) Monocytes # (Auto) 0.3 x10^3/uL (0.0-1.1) Eosinophils # (Auto) 0.0 x10^3/uL (0.0-0.7) Basophils # (Auto) 0.0 x10^3/uL (0.0-0.2) Lactic Acid Level 1.2 mmol/L (0.4-2.0) Troponin I Quantitative < 0.017 ng/mL (0.000-0.055) Sodium Level 132 mmol/L (136-145) Potassium Level 3.6 mmol/L (3.5-5.1) Chloride Level 90 mmol/L (98-107) Carbon Dioxide Level 32 mmol/L (21-32) Anion Gap 10 (6-14) Blood Urea Nitrogen 31 mg/dL (7-20) Creatinine 5.4 mg/dL (0.6-1.0) Estimated GFR (Cockcroft-Gault) 9.6 BUN/Creatinine Ratio 6 (6-20) Glucose Level 118 mg/dL (70-99) Calcium Level 9.3 mg/dL (8.5-10.1) Total Bilirubin 0.8 mg/dL (0.2-1.0) Aspartate Amino Transf (AST/SGOT) 46 U/L (15-37) Alanine Aminotransferase (ALT/SGPT) 18 U/L (14-59) Alkaline Phosphatase 164 U/L (46-116) Total Protein 8.8 g/dL (6.4-8.2) Albumin 3.4 g/dL (3.4-5.0) Albumin/Globulin Ratio 0.6 (1.0-1.7) Lipase 127 U/L (73-393) Laboratory Tests Test 09/21/19 16:26 09/21/19 17:30 White Blood Count 3.3 x10^3/uL (4.0-11.0) Red Blood Count 2.12 x10^6/uL (3.50-5.40) Hemoglobin 6.5 g/dL (12.0-15.5) Hematocrit 20.0 % (36.0-47.0) Mean Corpuscular Volume 94 fL (79-100) Mean Corpuscular Hemoglobin 31 pg (25-35) Mean Corpuscular Hemoglobin Concent 33 g/dL (31-37) Red Cell Distribution Width 18.6 % (11.5-14.5) Platelet Count 192 x10^3/uL (140-400) Neutrophils (%) (Auto) 77 % (31-73) Lymphocytes (%) (Auto) 13 % (24-48) Monocytes (%) (Auto) 9 % (0-9) Eosinophils (%) (Auto) 0 % (0-3) Basophils (%) (Auto) 1 % (0-3) Neutrophils # (Auto) 2.5 x10^3/uL (1.8-7.7) Lymphocytes # (Auto) 0.4 x10^3/uL (1.0-4.8) Monocytes # (Auto) 0.3 x10^3/uL (0.0-1.1) Eosinophils # (Auto) 0.0 x10^3/uL (0.0-0.7) Basophils # (Auto) 0.0 x10^3/uL (0.0-0.2) Lactic Acid Level 1.2 mmol/L (0.4-2.0) Troponin I Quantitative < 0.017 ng/mL (0.000-0.055) Sodium Level 132 mmol/L (136-145) Potassium Level 3.6 mmol/L (3.5-5.1) Chloride Level 90 mmol/L (98-107) Carbon Dioxide Level 32 mmol/L (21-32) Anion Gap 10 (6-14) Blood Urea Nitrogen 31 mg/dL (7-20) Creatinine 5.4 mg/dL (0.6-1.0) Estimated GFR (Cockcroft-Gault) 9.6 BUN/Creatinine Ratio 6 (6-20) Glucose Level 118 mg/dL (70-99) Calcium Level 9.3 mg/dL (8.5-10.1) Total Bilirubin 0.8 mg/dL (0.2-1.0) Aspartate Amino Transf (AST/SGOT) 46 U/L (15-37) Alanine Aminotransferase (ALT/SGPT) 18 U/L (14-59) Alkaline Phosphatase 164 U/L (46-116) Total Protein 8.8 g/dL (6.4-8.2) Albumin 3.4 g/dL (3.4-5.0) Albumin/Globulin Ratio 0.6 (1.0-1.7) Lipase 127 U/L (73-393) Images Images INDICATION: Nausea, abdominal pain TECHNIQUE: Sequential axial images through the abdomen and pelvis obtained without IV contrast. Sagittal and coronal reformatted images were reconstructed from the axial data and reviewed. Comparisons: 09/06/2019 FINDINGS: Heart is enlarged. No pericardial effusion. Mitral annular calcifications are noted. No pericardial effusion. Linear bandlike opacities are noted at the lung bases bilaterally, likely representing atelectasis. Small bilateral pleural effusions. Evaluation of the solid organs is limited secondary to noncontrast technique. Question micronodular contour the liver. Liver is enlarged. Spleen and adrenals are unremarkable. Diffuse inflammatory changes surrounding the pancreas. No discrete fluid collection is identified. No perinephric inflammation or hydronephrosis. Nonobstructing 3 mm calculus at the mid right kidney. No ureteral calculi. Bladder is decompressed not well evaluated. Uterus is absent. No abnormal adnexal mass. Abdominal aorta has a normal course and caliber. Several calcified right common iliac lymph nodes are noted. Redemonstration of fracture deformity at the right pubis and inferior pubic rami. No suspicious osseous lesions or acute fractures. IMPRESSION: 1. Redemonstrated inflammatory changes surrounding the pancreas favored represent edematous pancreatitis. No discrete peripancreatic fluid collection is identified. 2. Moderate amount of free fluid within the abdomen, may be reactive to the prior process. Question micronodular contour the liver. Correlate with LFTs this may relate to underlying cirrhosis. 3. Redemonstration of fracture deformity involving the right pubic ramus. 4. Other stable chronic findings described above. Exposure: One or more of the following in the visualized dose reduction techniques were utilized for this examination: 1. Automated exposure control 2. Adjustment of the MA and/or KV according to patient size 3. Use of iterative of reconstructive technique Electronically signed by: Ross Vergara MD (09/21/2019 5:36 PM) [facility] VTE Prophylaxis Ordered VTE Prophylaxis Devices: Contraindicated VTE Pharmacological Prophylaxi: Contraindicated Assessment/Plan Assessment/Plan Impression: Acute pancreatitis ON CT ABD inflammatory changes surrounding the pancreas favored represent edematous pancreatitis. No discrete peripancreatic fluid collection is identified. Moderate amount of free fluid within the abdomen, may be reactive to the prior process. Question micronodular contour the liver. Correlate with LFTs this may relate to underlying cirrhosis. fracture deformity involving the right pubic ramus. NAUSEA., INTRACTABLE ESRD ON DIALYSIS Missed dialysis 09/21 Accelerated hypertension Anemia R SHOULDER PAIN CXR consistent with mild to moderate CHF.POA ADMITTED NEPHROLOGY CONSULT GI CONSULT DVT PROPHYLAXIIS BP CONTROL DIALYSIS SHANNON GI REST ORTHO CONSULT 56 MIN PT EXAM, CHART REVIEW, > 50% OF TIME SPENT WITH EXAM, CHART REVIEW, PT CARE COORDINATION ASHIA MOSS MD Sep 22, 2019 08:13
[2019-09-22] MEDS: FOLIC ACID 1 MG TABLET. PO SCH (08:22)
[2019-09-22] MEDS: FOLIC/VIT B COMP W-C (RENAL) TABLET. PO SCH (08:22)
[2019-09-22] MEDS: LACTOBACILLUS RHAMNOSUS GG 1 CAPSULE. PO SCH ×2 (08:22→21:23)
--- NOTE | 2019-09-22 08:25 | NUR ---
C/O severe pain to left shoulder, unable to rate, crying, restless. Movement intact, states fingers are numb, severe pain with movement. Thrill and bruit at shunt site present. States it is swollen this morning which is a new symptom for her. States fentanyl is not working. Will advise provider. Will continue to monitor.
[2019-09-22 09:22] LABS: BASO % 1 % (0-3); EOS % 1 % (0-3); HEMATOCRIT 21.6 % (36.0-47.0); HEMOGLOBIN 7.3 g/dL (12.0-15.5); LYMPH # 0.6 x10^3/uL (1.0-4.8); LYMPH % 16 % (24-48); MEAN CORPUSCULAR HEMOGLOBIN 31 pg (25-35); MEAN CORPUSCULAR HGB CONC 34 g/dL (31-37); MEAN CORPUSCULAR VOLUME 92 fL (79-100); MONO # 0.4 x10^3/uL (0.0-1.1); MONO % 11 % (0-9); NEUT # 2.6 x10^3/uL (1.8-7.7); NEUT % 72 % (31-73); PLATELET COUNT 146 x10^3/uL (140-400); RED BLOOD COUNT 2.36 x10^6/uL (3.50-5.40); RED CELL DISTRIBUTION WIDTH 19.4 % (11.5-14.5); WHITE BLOOD COUNT 3.5 x10^3/uL (4.0-11.0)
[2019-09-22 09:48] LABS: ALBUMIN 3.3 g/dL (3.4-5.0); ALBUMIN/GLOBULIN RATIO 0.6 (1.0-1.7); CALCIUM 9.2 mg/dL (8.5-10.1); CREATININE 6.4 mg/dL (0.6-1.0); GFR 7.9; POTASSIUM 3.9 mmol/L (3.5-5.1); TOTAL BILIRUBIN 0.8 mg/dL (0.2-1.0); TOTAL PROTEIN 8.4 g/dL (6.4-8.2)
--- NOTE | 2019-09-22 10:08 | PDOC2 ---
GI CONSULT Reason For Consult: Acute pancreatitis HPI: HPI: 64 y/o female well known to us. Have seen many times in the past for diarrhea, n/v, abd pain - often after missing dialysis. This time, drank on Saturday which "probably set it all off" - abd pain and nausea - missed dialysis, didn't take meds "except I've been taking my stomach pill," has a headache, has been hypertensive. Currently very uncomfortable, wants something different for pain. NO bleeding. EGD 04/2016 (for melena/anemia): Grade 1 esophagitis, small MW tear w/o meaningful bleeding, alcoholic gastritis. EGD 10/2018 (for hematemesis/melena): desquamating changes 25-35cm due to emesis, friability and erosions at 35cm/GEJ c/w with Grade B reflux esophagitis, no varices or MW tear, no gastric varices, no hiatal hernia, diffuse nodularity throughout stomach, 1 cm ulcer posterior wall mid-antrum with hematin staining - no clot, visible vessel, or active bleeding (and negative for H. pylori), non- specific erythema in duodenal bulb. EGD 01/2019 (for hematemesis/melena): partly healed esophagitis distally, no varices, 8-10mm ulcer posterior wall prepyloric area similar to October - no signs of recent bleeding and no varices, patchy erythema in duodenal bulb, second portion normal. Gastrin level very minimally elevated - suspected non- compliance w/ PPI. I wrote her a prescription for pantoprazole 40mg QD w/ refills. EGD 07/01/19: Grade A reflux/no esophageal varices or M-W, blood upper body/part of fundus, no gastric varices, prepyloric ulcer - posterior wall with clot/ooze from beneath, blood in duodenal lumen. Placed clip near ulcer to tamika for IR. Epi injected around and into ulcer, maybe slowed some. Attempted BICAP, but only tangentially - continued ooze. Same day visceral angio w/ IR: coil embolization of the gastroduodenal artery and pancreaticoduodenal artery. EGD 07/21/19: bleeding again from prepyloric area; unable to visualize exact nature of lesion, possible old/confined perf? EGD 07/24/19: healed reflux, refractory prepyloric ulcer (no H. pylori or malignancy on biopsy), deformed pylorus, normal duodenum. Last colonoscopy reportedly normal <10 years ago @ [facility]. H/o cirrhosis - heavy alcohol use (still drinking) and Hep C (genotype 1a - possibly failed treatment in the past). H/o C Diff. S/p cholecystectomy 02/2018 (Dr. Rowe). H/o pancreatitis on past imaging. PMH: PMH: HTN, HLD, ESRD on HD, RA, DM, hyperparathyroidism partial hysterectomy (lap assisted/vaginal) FH: Family History: No pertinent hx, DM Social History: ALCOHOL: other Drugs: None ROS: Per HPI. Vitals: Vitals: Vital Signs Date Time Temp Pulse Resp B/P (MAP) Pulse Ox O2 Delivery O2 Flow Rate FiO2 09/22/19 07:00 98.4 90 18 171/83 (112) 94 Nasal Cannula 2.0 98.4 Labs: Labs: Laboratory Tests Test 09/21/19 16:26 09/21/19 17:30 09/22/19 09:00 White Blood Count 3.3 x10^3/uL (4.0-11.0) 3.5 x10^3/uL (4.0-11.0) Red Blood Count 2.12 x10^6/uL (3.50-5.40) 2.36 x10^6/uL (3.50-5.40) Hemoglobin 6.5 g/dL (12.0-15.5) 7.3 g/dL (12.0-15.5) Hematocrit 20.0 % (36.0-47.0) 21.6 % (36.0-47.0) Mean Corpuscular Volume 94 fL (79-100) 92 fL (79-100) Mean Corpuscular Hemoglobin 31 pg (25-35) 31 pg (25-35) Mean Corpuscular Hemoglobin Concent 33 g/dL (31-37) 34 g/dL (31-37) Red Cell Distribution Width 18.6 % (11.5-14.5) 19.4 % (11.5-14.5) Platelet Count 192 x10^3/uL (140-400) 146 x10^3/uL (140-400) Neutrophils (%) (Auto) 77 % (31-73) 72 % (31-73) Lymphocytes (%) (Auto) 13 % (24-48) 16 % (24-48) Monocytes (%) (Auto) 9 % (0-9) 11 % (0-9) Eosinophils (%) (Auto) 0 % (0-3) 1 % (0-3) Basophils (%) (Auto) 1 % (0-3) 1 % (0-3) Neutrophils # (Auto) 2.5 x10^3/uL (1.8-7.7) 2.6 x10^3/uL (1.8-7.7) Lymphocytes # (Auto) 0.4 x10^3/uL (1.0-4.8) 0.6 x10^3/uL (1.0-4.8) Monocytes # (Auto) 0.3 x10^3/uL (0.0-1.1) 0.4 x10^3/uL (0.0-1.1) Eosinophils # (Auto) 0.0 x10^3/uL (0.0-0.7) 0.0 x10^3/uL (0.0-0.7) Basophils # (Auto) 0.0 x10^3/uL (0.0-0.2) 0.0 x10^3/uL (0.0-0.2) Lactic Acid Level 1.2 mmol/L (0.4-2.0) Troponin I Quantitative < 0.017 ng/mL (0.000-0.055) Sodium Level 132 mmol/L (136-145) 132 mmol/L (136-145) Potassium Level 3.6 mmol/L (3.5-5.1) 3.9 mmol/L (3.5-5.1) Chloride Level 90 mmol/L (98-107) 90 mmol/L (98-107) Carbon Dioxide Level 32 mmol/L (21-32) 30 mmol/L (21-32) Anion Gap 10 (6-14) 12 (6-14) Blood Urea Nitrogen 31 mg/dL (7-20) 37 mg/dL (7-20) Creatinine 5.4 mg/dL (0.6-1.0) 6.4 mg/dL (0.6-1.0) Estimated GFR (Cockcroft-Gault) 9.6 7.9 BUN/Creatinine Ratio 6 (6-20) 6 (6-20) Glucose Level 118 mg/dL (70-99) 117 mg/dL (70-99) Calcium Level 9.3 mg/dL (8.5-10.1) 9.2 mg/dL (8.5-10.1) Total Bilirubin 0.8 mg/dL (0.2-1.0) 0.8 mg/dL (0.2-1.0) Aspartate Amino Transf (AST/SGOT) 46 U/L (15-37) 41 U/L (15-37) Alanine Aminotransferase (ALT/SGPT) 18 U/L (14-59) 17 U/L (14-59) Alkaline Phosphatase 164 U/L (46-116) 141 U/L (46-116) Total Protein 8.8 g/dL (6.4-8.2) 8.4 g/dL (6.4-8.2) Albumin 3.4 g/dL (3.4-5.0) 3.3 g/dL (3.4-5.0) Albumin/Globulin Ratio 0.6 (1.0-1.7) 0.6 (1.0-1.7) Lipase 127 U/L (73-393) Allergies: Coded Allergies: acetaminophen (Verified Adverse Reaction, Intermediate, Nausea and Vomiting, 07/24/19) Medications: Current Medications Medications (Trade) Dose Ordered Sig/Kimberly Route PRN Reason Start Time Stop Time Status Last Admin Dose Admin Ondansetron HCl (Zofran) 4 mg 1X ONCE IV 09/21/19 17:00 09/21/19 17:01 DC 09/21/19 17:04 Fentanyl Citrate (Fentanyl 2ml Vial) 50 mcg 1X ONCE IV 09/21/19 17:00 09/21/19 17:01 DC 09/21/19 17:04 Fentanyl Citrate (Fentanyl 2ml Vial) 50 mcg 1X STAT IV 09/21/19 18:33 09/21/19 18:36 DC 09/21/19 19:02 Labetalol HCl (Normodyne Iv Push) 20 mg 1X STAT IVP 09/21/19 18:51 09/21/19 18:52 DC 09/21/19 19:12 Ondansetron HCl (Zofran) 4 mg PRN Q8HRS PRN IV NAUSEA/VOMITING 09/21/19 19:00 09/22/19 18:59 09/22/19 04:57 Fentanyl Citrate (Fentanyl 2ml Vial) 50 mcg PRN Q1HR PRN IV PAIN 09/21/19 19:00 09/22/19 18:59 09/22/19 05:58 Imaging: Imaging: CT A/P IMPRESSION: 1. Redemonstrated inflammatory changes surrounding the pancreas favored represent edematous pancreatitis. No discrete peripancreatic fluid collection is identified. 2. Moderate amount of free fluid within the abdomen, may be reactive to the prior process. Question micronodular contour the liver. Correlate with LFTs this may relate to underlying cirrhosis. 3. Redemonstration of fracture deformity involving the right pubic ramus. 4. Other stable chronic findings described above. PE: GEN: uncomfortable HEENT: Atraumatic, PERRL LUNGS: CTAB HEART: RRR ABD: some distention, soft, epigastric to LUQ discomfort EXTREMITY: No edema SKIN: No rashes, no jaundice NEURO/PSYCH: A & O 3 A/P: A/P: Abd pain, nausea Chronic anemia, HTN, ESRD on HD, non-compliance Abnormal CT - inflammatory changes surrounding the pancreas GERD, refractory PUD Cirrhosis - alcohol, Hep C CRC screen - reportedly <10 years ago @ [facility] H/o C Diff S/p cholecystectomy -- Asked nurse to call primary re: IVF. Might keep to sips of water for now until pain/nausea improved. IV PPI for now. ?HD today IRIS SZYMANSKI Sep 22, 2019 10:08
[2019-09-22 11:00] VITALS: BP 165/63
[2019-09-22] MEDS: PANTOPRAZOLE IV PUSH 40 MG VIAL. IVP SCH (11:49)
--- NOTE | 2019-09-22 12:06 | PDOC2 ---
CONSULT Date of Consult Date of Consult DATE: 09/22/19 TIME: 12:00 Reason for Consult Reason for Consult: ESRD Referring Physician Referring Physician: WADE Source Source: Chart review, Patient History of Present Illness Reason for Visit: THIS IS A 64 YR OLD ESRD PT. WAS TO HAVE HD YESTERDAY BUT DID NOT GO AND CAME HERE DUE TO ABD PAIN AND NAUSEA. HAS HAD HX OF PANCREATITIS. APPARENTLY DRANK THIS WEEKEND. HAS HAD HX OF ANEMIA OF BLOOD LOSS WELL. GI EVALUATION IS ONGOING. HAS AV ACCESS LEFT ARM FOR HER HD. BP WAS ALSO VERY HIGH ON ADMIT DUE TO NOT TAKING HER MEDICATIONS. HAS HX OF NON COMPLIANCE WITH MEDS AND HD. LABS ARE C/W HER ESRD. ESRD DUE TO HTN AND DM II Past Medical History Cardiovascular: HTN, Hyperlipidemia Pulmonary: No pertinent hx GI: Constipation, GERD, GI bleed Heme/Onc: Anemia NOS Hepatobiliary: No pertinent hx, Hep A/B/C Psych: Addictions Rheumatologic: Rheumatoid arthritis Infectious disease: No pertinent hx Renal/: Chronic renal failure, Hematuria Endocrine: Diabetes, Hyperparathyroidism Past Surgical History Past Surgical History: Cholecystectomy, Tonsillectomy, Hysterectomy, Other Family History Family History: Alcohol Abuse, High Cholestrol, Hypertension, Family History Unknown Social History ALCOHOL: other Drugs: None Current Problem List Problem List Problems Medical Problems: (1) Accelerated hypertension Status: Acute (2) Acute pancreatitis Status: Acute (3) Anemia Status: Chronic (4) Missed dialysis Status: Acute Current Medications Current Medications Current Medications Ondansetron HCl (Zofran) 4 mg 1X ONCE IV Last administered on 09/21/19at 17:04; Start 09/21/19 at 17:00; Stop 09/21/19 at 17:01; Status DC Fentanyl Citrate (Fentanyl 2ml Vial) 50 mcg 1X ONCE IV Last administered on 09/21/19at 17:04; Start 09/21/19 at 17:00; Stop 09/21/19 at 17:01; Status DC Fentanyl Citrate (Fentanyl 2ml Vial) 50 mcg 1X STAT IV Last administered on 09/21/19at 19:02; Start 09/21/19 at 18:33; Stop 09/21/19 at 18:36; Status DC Labetalol HCl (Normodyne Iv Push) 20 mg 1X STAT IVP Last administered on 09/21/19at 19:12; Start 09/21/19 at 18:51; Stop 09/21/19 at 18:52; Status DC Ondansetron HCl (Zofran) 4 mg PRN Q8HRS PRN IV NAUSEA/VOMITING Last administered on 09/22/19at 04:57; Start 09/21/19 at 19:00; Stop 09/22/19 at 18:59 Fentanyl Citrate (Fentanyl 2ml Vial) 50 mcg PRN Q1HR PRN IV PAIN Last admi nistered on 09/22/19at 11:46; Start 09/21/19 at 19:00; Stop 09/22/19 at 18:59 Folic Acid (Folic Acid) 1 mg DAILY PO ; Start 09/22/19 at 09:00 Vitamin B Complex/ Vitamin C (Yara-Edward) 1 tab DAILY PO ; Start 09/22/19 at 09:00 Lactobacillus Rhamnosus (Culturelle) 1 cap BID PO ; Start 09/22/19 at 09:00 Pantoprazole Sodium (Protonix) 40 mg DAILYAC PO ; Start 09/22/19 at 07:30; St op 09/22/19 at 10:40; Status DC Polyethylene Glycol (miraLAX PACKET) 17 gm PRN DAILY PRN PO CONSTIPATION 1ST CHOICE; Start 09/21/19 at 21:15 Carvedilol (Coreg) 25 mg BIDWMEALS PO ; Start 09/22/19 at 08:00 Calcium Acetate (Phoslo) 667 mg TIDWMEALS PO ; Start 09/22/19 at 08:00 Pantoprazole Sodium (PROTONIX VIAL for IV PUSH) 40 mg DAILYAC IVP Last administered on 09/22/19at 11:49; Start 09/22/19 at 11:30 Active Scripts Active Pantoprazole Sodium (Pantoprazole Sodium) 40 Mg Tablet.dr 40 Mg PO DAILYAC 30 Days Culturelle (Lactobacillus Rhamnosus Gg) 1 Each Cap.sprink 1 Cap PO BID 14 Days Reported Nephro-Edward Tablet (Folic Acid/Vitamin B Comp W-C) 0.8 Mg Tablet 1 Tab PO DAILY Calcium Acetate 667 Mg Tablet 667 Mg PO TIDWMEALS Carvedilol 25 Mg Tablet 25 Mg PO BID Folic Acid 1 Mg Tablet 1 Mg PO DAILY Miralax (Polyethylene Glycol 3350) 17 Gm Powd.pack 1 Packet PO PRN DAILY PRN Allergies Allergies: Coded Allergies: acetaminophen (Verified Adverse Reaction, Intermediate, Nausea and Vomiting, 07/24/19) ROS General: YES: Fatigue, Malaise, Appetite PSYCHOLOGICAL ROS: YES: Depression Eyes: Yes Decreased vision HEENT: YES: Heacaches Respiratory: YES: Cough Gastrointestinal: Yes Nausea, Yes Abdominal Pain Genitourinary: YES Other (ANURIA) Musculoskeletal: Yes Muscular Weakness Neurological: Yes Weakness Skin: Yes Dry Skin Physical Exam Physical Exam AV ACCESS WITH GOOD THRILL AND BRUIT General: Alert, Cooperative, mild distress HEENT: Atraumatic, PERRLA Lungs: Clear to auscultation Heart: Regular rate Abdomen: Normal bowel sounds, Other (EPIGASTRIC PAIN ON PALPATION) Extremities: No clubbing Skin: No breakdown Neuro: Normal speech, Cranial nerves 3-12 NL MUSCULOSKELETAL: No deformity, No swelling Vitals VITALS Vital Signs Date Time Temp Pulse Resp B/P (MAP) Pulse Ox O2 Delivery O2 Flow Rate FiO2 09/22/19 11:46 24 Room Air 09/22/19 11:00 98.4 88 165/63 (97) 94 2.0 98.4 Labs Labs Laboratory Tests Test 09/21/19 16:26 09/21/19 17:30 09/22/19 09:00 White Blood Count 3.3 x10^3/uL (4.0-11.0) 3.5 x10^3/uL (4.0-11.0) Red Blood Count 2.12 x10^6/uL (3.50-5.40) 2.36 x10^6/uL (3.50-5.40) Hemoglobin 6.5 g/dL (12.0-15.5) 7.3 g/dL (12.0-15.5) Hematocrit 20.0 % (36.0-47.0) 21.6 % (36.0-47.0) Mean Corpuscular Volume 94 fL (79-100) 92 fL (79-100) Mean Corpuscular Hemoglobin 31 pg (25-35) 31 pg (25-35) Mean Corpuscular Hemoglobin Concent 33 g/dL (31-37) 34 g/dL (31-37) Red Cell Distribution Width 18.6 % (11.5-14.5) 19.4 % (11.5-14.5) Platelet Count 192 x10^3/uL (140-400) 146 x10^3/uL (140-400) Neutrophils (%) (Auto) 77 % (31-73) 72 % (31-73) Lymphocytes (%) (Auto) 13 % (24-48) 16 % (24-48) Monocytes (%) (Auto) 9 % (0-9) 11 % (0-9) Eosinophils (%) (Auto) 0 % (0-3) 1 % (0-3) Basophils (%) (Auto) 1 % (0-3) 1 % (0-3) Neutrophils # (Auto) 2.5 x10^3/uL (1.8-7.7) 2.6 x10^3/uL (1.8-7.7) Lymphocytes # (Auto) 0.4 x10^3/uL (1.0-4.8) 0.6 x10^3/uL (1.0-4.8) Monocytes # (Auto) 0.3 x10^3/uL (0.0-1.1) 0.4 x10^3/uL (0.0-1.1) Eosinophils # (Auto) 0.0 x10^3/uL (0.0-0.7) 0.0 x10^3/uL (0.0-0.7) Basophils # (Auto) 0.0 x10^3/uL (0.0-0.2) 0.0 x10^3/uL (0.0-0.2) Lactic Acid Level 1.2 mmol/L (0.4-2.0) Troponin I Quantitative < 0.017 ng/mL (0.000-0.055) Sodium Level 132 mmol/L (136-145) 132 mmol/L (136-145) Potassium Level 3.6 mmol/L (3.5-5.1) 3.9 mmol/L (3.5-5.1) Chloride Level 90 mmol/L (98-107) 90 mmol/L (98-107) Carbon Dioxide Level 32 mmol/L (21-32) 30 mmol/L (21-32) Anion Gap 10 (6-14) 12 (6-14) Blood Urea Nitrogen 31 mg/dL (7-20) 37 mg/dL (7-20) Creatinine 5.4 mg/dL (0.6-1.0) 6.4 mg/dL (0.6-1.0) Estimated GFR (Cockcroft-Gault) 9.6 7.9 BUN/Creatinine Ratio 6 (6-20) 6 (6-20) Glucose Level 118 mg/dL (70-99) 117 mg/dL (70-99) Calcium Level 9.3 mg/dL (8.5-10.1) 9.2 mg/dL (8.5-10.1) Total Bilirubin 0.8 mg/dL (0.2-1.0) 0.8 mg/dL (0.2-1.0) Aspartate Amino Transf (AST/SGOT) 46 U/L (15-37) 41 U/L (15-37) Alanine Aminotransferase (ALT/SGPT) 18 U/L (14-59) 17 U/L (14-59) Alkaline Phosphatase 164 U/L (46-116) 141 U/L (46-116) Total Protein 8.8 g/dL (6.4-8.2) 8.4 g/dL (6.4-8.2) Albumin 3.4 g/dL (3.4-5.0) 3.3 g/dL (3.4-5.0) Albumin/Globulin Ratio 0.6 (1.0-1.7) 0.6 (1.0-1.7) Lipase 127 U/L (73-393) Laboratory Tests Test 09/21/19 16:26 09/21/19 17:30 09/22/19 09:00 White Blood Count 3.3 x10^3/uL (4.0-11.0) 3.5 x10^3/uL (4.0-11.0) Red Blood Count 2.12 x10^6/uL (3.50-5.40) 2.36 x10^6/uL (3.50-5.40) Hemoglobin 6.5 g/dL (12.0-15.5) 7.3 g/dL (12.0-15.5) Hematocrit 20.0 % (36.0-47.0) 21.6 % (36.0-47.0) Mean Corpuscular Volume 94 fL (79-100) 92 fL (79-100) Mean Corpuscular Hemoglobin 31 pg (25-35) 31 pg (25-35) Mean Corpuscular Hemoglobin Concent 33 g/dL (31-37) 34 g/dL (31-37) Red Cell Distribution Width 18.6 % (11.5-14.5) 19.4 % (11.5-14.5) Platelet Count 192 x10^3/uL (140-400) 146 x10^3/uL (140-400) Neutrophils (%) (Auto) 77 % (31-73) 72 % (31-73) Lymphocytes (%) (Auto) 13 % (24-48) 16 % (24-48) Monocytes (%) (Auto) 9 % (0-9) 11 % (0-9) Eosinophils (%) (Auto) 0 % (0-3) 1 % (0-3) Basophils (%) (Auto) 1 % (0-3) 1 % (0-3) Neutrophils # (Auto) 2.5 x10^3/uL (1.8-7.7) 2.6 x10^3/uL (1.8-7.7) Lymphocytes # (Auto) 0.4 x10^3/uL (1.0-4.8) 0.6 x10^3/uL (1.0-4.8) Monocytes # (Auto) 0.3 x10^3/uL (0.0-1.1) 0.4 x10^3/uL (0.0-1.1) Eosinophils # (Auto) 0.0 x10^3/uL (0.0-0.7) 0.0 x10^3/uL (0.0-0.7) Basophils # (Auto) 0.0 x10^3/uL (0.0-0.2) 0.0 x10^3/uL (0.0-0.2) Lactic Acid Level 1.2 mmol/L (0.4-2.0) Troponin I Quantitative < 0.017 ng/mL (0.000-0.055) Sodium Level 132 mmol/L (136-145) 132 mmol/L (136-145) Potassium Level 3.6 mmol/L (3.5-5.1) 3.9 mmol/L (3.5-5.1) Chloride Level 90 mmol/L (98-107) 90 mmol/L (98-107) Carbon Dioxide Level 32 mmol/L (21-32) 30 mmol/L (21-32) Anion Gap 10 (6-14) 12 (6-14) Blood Urea Nitrogen 31 mg/dL (7-20) 37 mg/dL (7-20) Creatinine 5.4 mg/dL (0.6-1.0) 6.4 mg/dL (0.6-1.0) Estimated GFR (Cockcroft-Gault) 9.6 7.9 BUN/Creatinine Ratio 6 (6-20) 6 (6-20) Glucose Level 118 mg/dL (70-99) 117 mg/dL (70-99) Calcium Level 9.3 mg/dL (8.5-10.1) 9.2 mg/dL (8.5-10.1) Total Bilirubin 0.8 mg/dL (0.2-1.0) 0.8 mg/dL (0.2-1.0) Aspartate Amino Transf (AST/SGOT) 46 U/L (15-37) 41 U/L (15-37) Alanine Aminotransferase (ALT/SGPT) 18 U/L (14-59) 17 U/L (14-59) Alkaline Phosphatase 164 U/L (46-116) 141 U/L (46-116) Total Protein 8.8 g/dL (6.4-8.2) 8.4 g/dL (6.4-8.2) Albumin 3.4 g/dL (3.4-5.0) 3.3 g/dL (3.4-5.0) Albumin/Globulin Ratio 0.6 (1.0-1.7) 0.6 (1.0-1.7) Lipase 127 U/L (73-393) Assessment/Plan Assessment/Plan IMP ESRD ANEMIA ABD PAIN AND NAUSEA ETOH ABUSE PROB PANCREATITIS VS GASTRITIS CIRRHOSIS PLAN GI EVAL AND TX CHECK IRON START ARANESP HD TODAY UF TO DW WILL FOLLOW LINNEA SHULTZ MD Sep 22, 2019 12:05
[2019-09-22] MEDS ORDERED: BARIUM SULFATE 60% 355 ML SUSP PO ONE (13:00)
[2019-09-22] MEDS ORDERED: IV NORMAL SALINE 1000ML BAG 1,000 ML IV PRN ×2 (14:10)
[2019-09-22] MEDS ORDERED: DIALYSIS PATIENT. MC PRN ×2 (14:15)
[2019-09-22] MEDS ORDERED: ALBUMIN HUMAN 25% 200 ML IV PRN (14:15)
--- NOTE | 2019-09-22 15:26 | RAD ---
EXAM: 3 Views Left Shoulder DATE: 09/22/2019 3:42 PM INDICATION: Left shoulder pain, decreased range of motion. COMPARISON: No Prior FINDINGS: There is no evidence for acute fracture or dislocation. AC joint is congruent. Glenohumeral joint degenerative changes are seen with subchondral cystic change and inferior projecting osteophytes.. Humeral head is not high riding. IMPRESSION: 1. No acute fracture or dislocation. 2. Severe left glenohumeral joint osteoarthritis with prominent subchondral cystic change and inferior projecting osteophytes. Electronically signed by: Jarod Hawkins MD (09/22/2019 3:23 PM) [id number]
--- NOTE | 2019-09-22 16:20 | NUR ---
SW following pt for dc planning. Chart reviewed and spoke with HD RN at [facility], , fax: [phone] on , , S. Pt is also a readmit <30days, hx of non compliance. Pt apparently had missed HD on 09/21 and Drank gin. Pt has chronic ETOH use. SW will continue to follow.
--- NOTE | 2019-09-22 18:55 | RAD ---
Study: CR upper GI series with air/barium - no KUB INDICATION: Persistent prepyloric ulcer. Concern for penetration or perforation. COMPARISON: Correlation is made to the CT abdomen/pelvis from 09/21/2019 TECHNIQUE: Real-time fluoroscopic evaluation of the upper GI tract from the esophagus through the ligament of Treitz. Watered-down barium was administered. The patient was imaged in multiple projections both upright and supine/prone. FINDINGS: Fluoroscopy time: 2.3 minutes Fluoroscopic dose: 89.9 mGy No mucosal abnormality, stricture or mass was seen throughout the esophagus. No large hiatal hernia. No significant reflux of contrast from the stomach into the esophagus during the study was visualized. Maintained stripping wave with clearance of ingested contrast rapidly from the esophagus into the stomach. Vascular coils noted along the undersurface of the distal stomach in the region of the antrum/pylorus. Real-time evaluation of the stomach and duodenum revealed no extravasation of ingested contrast to suggest a perforated ulcer. No outpouching of contrast was definitively seen to suggest a perforating ulceration as well. The distal antrum/pyloric region was not seen to distend normally throughout the course of the study which could represent a manifestation of edematous/inflamed mucosa. Despite this finding, contrast passed normally and rapidly into the duodenum and into the proximal small bowel. IMPRESSION: 1. No fluoroscopic evidence for a perforated or penetrating gastric ulcer. Diminished luminal caliber at the distal antrum/pylorus raising the question of edematous/heaped up mucosa in this region but without associated stenosis as contrast passed normally into the duodenum. 2. No concerning abnormality throughout the esophagus Electronically signed by: KEHINDE STEWART MD (09/22/2019 6:52 PM) [facility]
[2019-09-22 19:30] VITALS: BP 177/78
[2019-09-22] MEDS ORDERED: DARBEPOETIN ALFA 60 MCG/0.3 ML DISP.SYRIN. SQ SCH (21:00)
[2019-09-22] MEDS: fentaNYL PF VIAL 100 MCG/2 ML VIAL IVP PRN (21:23)
[2019-09-22 23:00] VITALS: BP 170/73
[2019-09-23] MEDS: fentaNYL PF VIAL 100 MCG/2 ML VIAL IVP PRN ×8 (00:19→21:59)
[2019-09-23 03:00] VITALS: BP 187/79
[2019-09-23 04:04] LABS: HEMATOCRIT 21.2 % (36.0-47.0); HEMOGLOBIN 7.1 g/dL (12.0-15.5); RED BLOOD COUNT 2.25 x10^6/uL (3.50-5.40); RED CELL DISTRIBUTION WIDTH 19.8 % (11.5-14.5); WHITE BLOOD COUNT 3.1 x10^3/uL (4.0-11.0)
[2019-09-23 04:24] LABS: CALCIUM 8.9 mg/dL (8.5-10.1); CREATININE 3.4 mg/dL (0.6-1.0); GFR 16.4
[2019-09-23 04:36] LABS: BILIRUBIN,URINE NEGATIVE (NEG); CLARITY,URINE CLOUDY; COLOR,URINE YELLOW; NITRITE,URINE NEGATIVE (NEG); PH,URINE 7.5; PROTEIN,URINE 100 mg/dL (NEG-TRACE); UROBILINOGEN,URINE 0.2 mg/dL (0.2 mg/dL)
[2019-09-23 04:55] LABS: SQUAMOUS EPITHELIAL CELL,UR MANY /LPF
[2019-09-23 04:56] LABS: BACTERIA,URINE MANY /HPF (0-FEW); WBC,URINE 20-40 /HPF (0-4)
[2019-09-23 05:00] VITALS: BP 184/74
[2019-09-23] MEDS ORDERED: hydrALAZINE 20 MG/ML VIAL. IVP ONE (05:00)
[2019-09-23 07:00] VITALS: BP_SYST 104; BP_SYST 113; BP_DIAS 69; BP_DIAS 74
[2019-09-23] MEDS ORDERED: IV NORMAL SALINE 1000ML BAG 1,000 ML IV PRN ×2 (07:00)
--- NOTE | 2019-09-23 07:38 | PDOC2 ---
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 Referring Physician Referring Physician: Dr Donahue Identification/Chief Complaint Chief Complaint Orthopedic complaint of right shoulder pain Source Source: Chart review, Patient History of Present Illness Reason for Visit: No history of injury to left shoulder. Past Medical History Cardiovascular: HTN, Hyperlipidemia Pulmonary: No pertinent hx GI: Constipation, GERD, GI bleed Heme/Onc: Anemia NOS Hepatobiliary: No pertinent hx, Hep A/B/C Psych: Addictions Rheumatologic: Rheumatoid arthritis Infectious disease: No pertinent hx Renal/: Chronic renal failure, Hematuria Endocrine: Diabetes, Hyperparathyroidism Past Surgical History Past Surgical History: Cholecystectomy, Tonsillectomy, Hysterectomy, Other Family History Family History: Alcohol Abuse, High Cholestrol, Hypertension, Family History Unknown Social History No ALCOHOL: occassional Drugs: None Current Problem List Problem List Problems Medical Problems: (1) Accelerated hypertension Status: Acute (2) Acute pancreatitis Status: Acute (3) Anemia Status: Chronic (4) Missed dialysis Status: Acute Current Medications Current Medications Current Medications Ondansetron HCl (Zofran) 4 mg 1X ONCE IV Last administered on 09/21/19at 17:04; Start 09/21/19 at 17:00; Stop 09/21/19 at 17:01; Status DC Fentanyl Citrate (Fentanyl 2ml Vial) 50 mcg 1X ONCE IV Last administered on 09/21/19at 17:04; Start 09/21/19 at 17:00; Stop 09/21/19 at 17:01; Status DC Fentanyl Citrate (Fentanyl 2ml Vial) 50 mcg 1X STAT IV Last administered on 09/21/19at 19:02; Start 09/21/19 at 18:33; Stop 09/21/19 at 18:36; Status DC Labetalol HCl (Normodyne Iv Push) 20 mg 1X STAT IVP Last administered on 09/21/19at 19:12; Start 09/21/19 at 18:51; Stop 09/21/19 at 18:52; Status DC Ondansetron HCl (Zofran) 4 mg PRN Q8HRS PRN IV NAUSEA/VOMITING Last admini stered on 09/22/19at 04:57; Start 09/21/19 at 19:00; Stop 09/22/19 at 18:59; Status DC Fentanyl Citrate (Fentanyl 2ml Vial) 50 mcg PRN Q1HR PRN IV PAIN Last administered on 09/22/19at 17:42; Start 09/21/19 at 19:00; Stop 09/22/19 at 18:59; Status DC Folic Acid (Folic Acid) 1 mg DAILY PO ; Start 09/22/19 at 09:00 Vitamin B Complex/ Vitamin C (Yara-Edward) 1 tab DAILY PO ; Start 09/22/19 at 09:00 Lactobacillus Rhamnosus (Culturelle) 1 cap BID PO Last administered on 09/22/19at 21:23; Start 09/22/19 at 09:00 Pantoprazole Sodium (Protonix) 40 mg DAILYAC PO ; Start 09/22/19 at 07:30; Stop 09/22/19 at 10:40; Status DC Polyethylene Glycol (miraLAX PACKET) 17 gm PRN DAILY PRN PO CONSTIPATION 1ST CHOICE; Start 09/21/19 at 21:15 Carvedilol (Coreg) 25 mg BIDWMEALS PO ; Start 09/22/19 at 08:00 Calcium Acetate (Phoslo) 667 mg TIDWMEALS PO ; Start 09/22/19 at 08:00 Pantoprazole Sodium (PROTONIX VIAL for IV PUSH) 40 mg DAILYAC IVP Last administered on 09/22/19at 11:49; Start 09/22/19 at 11:30 Darbepoetin Bol[place]ar (ARANESP for DIALYSIS PTS) 60 mcg WEEKLYHS SQ Last administered on 09/22/19at 18:08; Start 09/22/19 at 21:00 Barium Sulfate (Liquid E-Z Paque) 355 ml 1X ONCE PO Last administered on 09/22/19at 13:00; Start 09/22/19 at 13:00; Stop 09/22/19 at 13:01; Status DC Sodium Chloride 1,000 ml @ 1,000 mls/hr Q1H PRN IV hypotension; Start 09/22/19 at 14:10; Stop 09/22/19 at 20:09; Status DC Albumin Human 200 ml @ 200 mls/hr 1X PRN PRN IV Hypotension; Start 09/22/19 at 14:15 Sodium Chloride 1,000 ml @ 400 mls/hr Q2H30M PRN IV PATENCY; Start 09/22/19 at 14:10; Stop 09/23/19 at 02:09; Status DC Info (PHARMACY MONITORING -- do not chart) 1 each PRN DAILY PRN MC SEE COMMENTS; Start 09/22/19 at 14:15; Status UNV Info (PHARMACY MONITORING -- do not chart) 1 each PRN DAILY PRN MC SEE COMMENTS; Start 09/22/19 at 14:15 Fentanyl Citrate (Fentanyl 2ml Vial) 50 mcg PRN Q1HR PRN IVP SEVERE PAIN 7-10 Last administered on 09/23/19at 04:17; Start 09/22/19 at 21:00 Hydralazine HCl (Apresoline Inj) 10 mg 1X ONCE IVP Last administered on 09/23/19at 05:00; Start 09/23/19 at 05:00; Stop 09/23/19 at 05:01; Status DC Active Scripts Active Pantoprazole Sodium (Pantoprazole Sodium) 40 Mg Tablet.dr 40 Mg PO DAILYAC 30 Days Culturelle (Lactobacillus Rhamnosus Gg) 1 Each Cap.sprink 1 Cap PO BID 14 Days Reported Nephro-Edward Tablet (Folic Acid/Vitamin B Comp W-C) 0.8 Mg Tablet 1 Tab PO DAILY Calcium Acetate 667 Mg Tablet 667 Mg PO TIDWMEALS Carvedilol 25 Mg Tablet 25 Mg PO BID Folic Acid 1 Mg Tablet 1 Mg PO DAILY Miralax (Polyethylene Glycol 3350) 17 Gm Powd.pack 1 Packet PO PRN DAILY PRN Allergies Allergies: Coded Allergies: acetaminophen (Verified Adverse Reaction, Intermediate, Nausea and Vomiting, 07/24/19) Physical Exam General: Alert, Oriented X3 MUSCULOSKELETAL: Abnormal exam of left (Left shoilder pain on movement only. No tenderness to palpation. Patient points to lateral left shoulder globally for pain area. Patient has pain with attemplted abduction and forward flexion and belly press test. Decreased strength against resisted abduction. Patient with RTC symptoms not tender over the A/C joint) Vitals VITALS Vital Signs Date Time Temp Pulse Resp B/P (MAP) Pulse Ox O2 Delivery O2 Flow Rate FiO2 09/23/19 05:00 70 184/74 (110) 09/23/19 04:47 93 Nasal Cannula 09/23/19 04:17 19 11/27/19 03:00 98.4 98.4 09/22/19 11:00 2.0 Labs Labs Laboratory Tests Test 09/21/19 16:26 09/21/19 17:30 09/22/19 09:00 09/23/19 03:20 White Blood Count 3.3 x10^3/uL (4.0-11.0) 3.5 x10^3/uL (4.0-11.0) 3.1 x10^3/uL (4.0-11.0) Red Blood Count 2.12 x10^6/uL (3.50-5.40) 2.36 x10^6/uL (3.50-5.40) 2.25 x10^6/uL (3.50-5.40) Hemoglobin 6.5 g/dL (12.0-15.5) 7.3 g/dL (12.0-15.5) 7.1 g/dL (12.0-15.5) Hematocrit 20.0 % (36.0-47.0) 21.6 % (36.0-47.0) 21.2 % (36.0-47.0) Mean Corpuscular Volume 94 fL (79-100) 92 fL (79-100) 94 fL (79-100) Mean Corpuscular Hemoglobin 31 pg (25-35) 31 pg (25-35) 32 pg (25-35) Mean Corpuscular Hemoglobin Concent 33 g/dL (31-37) 34 g/dL (31-37) 34 g/dL (31-37) Red Cell Distribution Width 18.6 % (11.5-14.5) 19.4 % (11.5-14.5) 19.8 % (11.5-14.5) Platelet Count 192 x10^3/uL (140-400) 146 x10^3/uL (140-400) 146 x10^3/uL (140-400) Neutrophils (%) (Auto) 77 % (31-73) 72 % (31-73) Lymphocytes (%) (Auto) 13 % (24-48) 16 % (24-48) Monocytes (%) (Auto) 9 % (0-9) 11 % (0-9) Eosinophils (%) (Auto) 0 % (0-3) 1 % (0-3) Basophils (%) (Auto) 1 % (0-3) 1 % (0-3) Neutrophils # (Auto) 2.5 x10^3/uL (1.8-7.7) 2.6 x10^3/uL (1.8-7.7) Lymphocytes # (Auto) 0.4 x10^3/uL (1.0-4.8) 0.6 x10^3/uL (1.0-4.8) Monocytes # (Auto) 0.3 x10^3/uL (0.0-1.1) 0.4 x10^3/uL (0.0-1.1) Eosinophils # (Auto) 0.0 x10^3/uL (0.0-0.7) 0.0 x10^3/uL (0.0-0.7) Basophils # (Auto) 0.0 x10^3/uL (0.0-0.2) 0.0 x10^3/uL (0.0-0.2) Lactic Acid Level 1.2 mmol/L (0.4-2.0) Troponin I Quantitative < 0.017 ng/mL (0.000-0.055) Sodium Level 132 mmol/L (136-145) 132 mmol/L (136-145) 135 mmol/L (136-145) Potassium Level 3.6 mmol/L (3.5-5.1) 3.9 mmol/L (3.5-5.1) 4.0 mmol/L (3.5-5.1) Chloride Level 90 mmol/L (98-107) 90 mmol/L (98-107) 96 mmol/L (98-107) Carbon Dioxide Level 32 mmol/L (21-32) 30 mmol/L (21-32) 32 mmol/L (21-32) Anion Gap 10 (6-14) 12 (6-14) 7 (6-14) Blood Urea Nitrogen 31 mg/dL (7-20) 37 mg/dL (7-20) 15 mg/dL (7-20) Creatinine 5.4 mg/dL (0.6-1.0) 6.4 mg/dL (0.6-1.0) 3.4 mg/dL (0.6-1.0) Estimated GFR (Cockcroft-Gault) 9.6 7.9 16.4 BUN/Creatinine Ratio 6 (6-20) 6 (6-20) Glucose Level 118 mg/dL (70-99) 117 mg/dL (70-99) 104 mg/dL (70-99) Calcium Level 9.3 mg/dL (8.5-10.1) 9.2 mg/dL (8.5-10.1) 8.9 mg/dL (8.5-10.1) Total Bilirubin 0.8 mg/dL (0.2-1.0) 0.8 mg/dL (0.2-1.0) Aspartate Amino Transf (AST/SGOT) 46 U/L (15-37) 41 U/L (15-37) Alanine Aminotransferase (ALT/SGPT) 18 U/L (14-59) 17 U/L (14-59) Alkaline Phosphatase 164 U/L (46-116) 141 U/L (46-116) Total Protein 8.8 g/dL (6.4-8.2) 8.4 g/dL (6.4-8.2) Albumin 3.4 g/dL (3.4-5.0) 3.3 g/dL (3.4-5.0) Albumin/Globulin Ratio 0.6 (1.0-1.7) 0.6 (1.0-1.7) Lipase 127 U/L (73-393) Iron Level 37 ug/dL (50-170) Total Iron Binding Capacity 232 ug/dL (250-450) Iron Saturation 16 % (15-34) Test 09/23/19 03:30 Urine Collection Type Unknown Urine Color Yellow Urine Clarity Cloudy Urine pH 7.5 Urine Specific [place] 1.010 Urine Protein 100 mg/dL (NEG-TRACE) Urine Glucose (UA) Negative mg/dL (NEG) Urine Ketones (Stick) Negative mg/dL (NEG) Urine Blood Large (NEG) Urine Nitrite Negative (NEG) Urine Bilirubin Negative (NEG) Urine Urobilinogen Dipstick 0.2 mg/dL (0.2 mg/dL) Urine Leukocyte Esterase Large (NEG) Urine RBC 6-10 /HPF (0-2) Urine WBC 20-40 /HPF (0-4) Urine Squamous Epithelial Cells Many /LPF Urine Bacteria Many /HPF (0-FEW) Urine Mucus Slight /LPF Laboratory Tests Test 09/22/19 09:00 09/23/19 03:20 09/23/19 03:30 White Blood Count 3.5 x10^3/uL (4.0-11.0) 3.1 x10^3/uL (4.0-11.0) Red Blood Count 2.36 x10^6/uL (3.50-5.40) 2.25 x10^6/uL (3.50-5.40) Hemoglobin 7.3 g/dL (12.0-15.5) 7.1 g/dL (12.0-15.5) Hematocrit 21.6 % (36.0-47.0) 21.2 % (36.0-47.0) Mean Corpuscular Volume 92 fL (79-100) 94 fL (79-100) Mean Corpuscular Hemoglobin 31 pg (25-35) 32 pg (25-35) Mean Corpuscular Hemoglobin Concent 34 g/dL (31-37) 34 g/dL (31-37) Red Cell Distribution Width 19.4 % (11.5-14.5) 19.8 % (11.5-14.5) Platelet Count 146 x10^3/uL (140-400) 146 x10^3/uL (140-400) Neutrophils (%) (Auto) 72 % (31-73) Lymphocytes (%) (Auto) 16 % (24-48) Monocytes (%) (Auto) 11 % (0-9) Eosinophils (%) (Auto) 1 % (0-3) Basophils (%) (Auto) 1 % (0-3) Neutrophils # (Auto) 2.6 x10^3/uL (1.8-7.7) Lymphocytes # (Auto) 0.6 x10^3/uL (1.0-4.8) Monocytes # (Auto) 0.4 x10^3/uL (0.0-1.1) Eosinophils # (Auto) 0.0 x10^3/uL (0.0-0.7) Basophils # (Auto) 0.0 x10^3/uL (0.0-0.2) Sodium Level 132 mmol/L (136-145) 135 mmol/L (136-145) Potassium Level 3.9 mmol/L (3.5-5.1) 4.0 mmol/L (3.5-5.1) Chloride Level 90 mmol/L (98-107) 96 mmol/L (98-107) Carbon Dioxide Level 30 mmol/L (21-32) 32 mmol/L (21-32) Anion Gap 12 (6-14) 7 (6-14) Blood Urea Nitrogen 37 mg/dL (7-20) 15 mg/dL (7-20) Creatinine 6.4 mg/dL (0.6-1.0) 3.4 mg/dL (0.6-1.0) Estimated GFR (Cockcroft-Gault) 7.9 16.4 BUN/Creatinine Ratio 6 (6-20) Glucose Level 117 mg/dL (70-99) 104 mg/dL (70-99) Calcium Level 9.2 mg/dL (8.5-10.1) 8.9 mg/dL (8.5-10.1) Total Bilirubin 0.8 mg/dL (0.2-1.0) Aspartate Amino Transf (AST/SGOT) 41 U/L (15-37) Alanine Aminotransferase (ALT/SGPT) 17 U/L (14-59) Alkaline Phosphatase 141 U/L (46-116) Total Protein 8.4 g/dL (6.4-8.2) Albumin 3.3 g/dL (3.4-5.0) Albumin/Globulin Ratio 0.6 (1.0-1.7) Iron Level 37 ug/dL (50-170) Total Iron Binding Capacity 232 ug/dL (250-450) Iron Saturation 16 % (15-34) Urine Collection Type Unknown Urine Color Yellow Urine Clarity Cloudy Urine pH 7.5 Urine Specific [place] 1.010 Urine Protein 100 mg/dL (NEG-TRACE) Urine Glucose (UA) Negative mg/dL (NEG) Urine Ketones (Stick) Negative mg/dL (NEG) Urine Blood Large (NEG) Urine Nitrite Negative (NEG) Urine Bilirubin Negative (NEG) Urine Urobilinogen Dipstick 0.2 mg/dL (0.2 mg/dL) Urine Leukocyte Esterase Large (NEG) Urine RBC 6-10 /HPF (0-2) Urine WBC 20-40 /HPF (0-4) Urine Squamous Epithelial Cells Many /LPF Urine Bacteria Many /HPF (0-FEW) Urine Mucus Slight /LPF Images Images Studies show old healing pubic rami fracture from fall in December. Left shoulder with degenerative changes in glenohumeral joint, with humeral head positioned appropriately. No fracture or dislocation. Assessment/Plan Assessment/Plan Patient unable to fully participate in examination of left shoulder r/t abdominal pain. Possible rotator cuff strain vs tear. Would need MRI for further evaluation. Would recommend steroid injection to evaluate pain relief with physical therapy for increased strength and ROM. Will discuss with Dr Min for injection. ANIYAH MIN II, MD 09/23/19 0957: CONSULT History of Present Illness Reason for Visit: Patient complaining more of left shoulder pain lately, diffuse, worse with any movement. Shes had this for awhile now, but worse lately. She has not had any treatment to her shoulder yet. pain doesnt radiate Physical Exam General: No acute distress HEENT: Atraumatic, EOMI Lungs: Other (resp unlabored wit hsymm chest rise) Heart: Regular rate Abdomen: Normal bowel sounds, Soft Extremities: Normal pulses Neuro: Normal speech, Strength at 5/5 X4 ext, Sensation intact Psych/Mental Status: Mental status NL, Mood NL Assessment/Plan Assessment/Plan Patient seen and examined by myself. Imaging reviewed by myself. F/u in clinic for injection once recovered TAMEKA SZYMANSKI APRN Sep 23, 2019 07:38 ANIYAH MIN II, MD Sep 23, 2019 09:57
--- NOTE | 2019-09-23 07:48 | PDOC ---
PROGRESS NOTES History of Present Illness History of Present Illness VTE Prophylaxis Ordered VTE Prophylaxis Devices: Contraindicated VTE Pharmacological Prophylaxi: Contraindicated Assessment/Plan Assessment/Plan Impression: Acute pancreatitis ON CT ABD inflammatory changes surrounding the pancreas favored represent edematous pancreatitis. No discrete peripancreatic fluid collection is identified. Moderate amount of free fluid within the abdomen, may be reactive to the prior process. Question micronodular contour the liver. Correlate with LFTs this may relate to underlying cirrhosis. fracture deformity involving the right pubic ramus. NAUSEA., INTRACTABLE ESRD ON DIALYSIS Missed dialysis 09/21 Accelerated hypertension Anemia R SHOULDER PAIN CXR consistent with mild to moderate CHF.POA ADMITTED NEPHROLOGY CONSULT GI CONSULT DVT PROPHYLAXIIS BP CONTROL DIALYSIS SHANNON GI REST ORTHO CONSULT UGI w/o GOO or evidence for perf/penetration of ulcer 38 MIN PT EXAM, CHART REVIEW, > 50% OF TIME SPENT WITH EXAM, CHART REVIEW, PT CARE COORDINATION Vitals Vitals Vital Signs Date Time Temp Pulse Resp B/P (MAP) Pulse Ox O2 Delivery O2 Flow Rate FiO2 09/23/19 05:00 70 184/74 (110) 09/23/19 04:47 93 Nasal Cannula 09/23/19 04:17 19 09/23/19 03:00 98.4 98.4 09/22/19 11:00 2.0 Physical Exam General: Alert, Oriented X3 Heart: Regular rate Lungs: Clear Abdomen: Normal bowel sounds, Other Extremities: No clubbing Skin: No breakdown Labs LABS Laboratory Tests Test 09/22/19 09:00 09/23/19 03:20 09/23/19 03:30 White Blood Count 3.5 x10^3/uL (4.0-11.0) 3.1 x10^3/uL (4.0-11.0) Red Blood Count 2.36 x10^6/uL (3.50-5.40) 2.25 x10^6/uL (3.50-5.40) Hemoglobin 7.3 g/dL (12.0-15.5) 7.1 g/dL (12.0-15.5) Hematocrit 21.6 % (36.0-47.0) 21.2 % (36.0-47.0) Mean Corpuscular Volume 92 fL (79-100) 94 fL (79-100) Mean Corpuscular Hemoglobin 31 pg (25-35) 32 pg (25-35) Mean Corpuscular Hemoglobin Concent 34 g/dL (31-37) 34 g/dL (31-37) Red Cell Distribution Width 19.4 % (11.5-14.5) 19.8 % (11.5-14.5) Platelet Count 146 x10^3/uL (140-400) 146 x10^3/uL (140-400) Neutrophils (%) (Auto) 72 % (31-73) Lymphocytes (%) (Auto) 16 % (24-48) Monocytes (%) (Auto) 11 % (0-9) Eosinophils (%) (Auto) 1 % (0-3) Basophils (%) (Auto) 1 % (0-3) Neutrophils # (Auto) 2.6 x10^3/uL (1.8-7.7) Lymphocytes # (Auto) 0.6 x10^3/uL (1.0-4.8) Monocytes # (Auto) 0.4 x10^3/uL (0.0-1.1) Eosinophils # (Auto) 0.0 x10^3/uL (0.0-0.7) Basophils # (Auto) 0.0 x10^3/uL (0.0-0.2) Sodium Level 132 mmol/L (136-145) 135 mmol/L (136-145) Potassium Level 3.9 mmol/L (3.5-5.1) 4.0 mmol/L (3.5-5.1) Chloride Level 90 mmol/L (98-107) 96 mmol/L (98-107) Carbon Dioxide Level 30 mmol/L (21-32) 32 mmol/L (21-32) Anion Gap 12 (6-14) 7 (6-14) Blood Urea Nitrogen 37 mg/dL (7-20) 15 mg/dL (7-20) Creatinine 6.4 mg/dL (0.6-1.0) 3.4 mg/dL (0.6-1.0) Estimated GFR (Cockcroft-Gault) 7.9 16.4 BUN/Creatinine Ratio 6 (6-20) Glucose Level 117 mg/dL (70-99) 104 mg/dL (70-99) Calcium Level 9.2 mg/dL (8.5-10.1) 8.9 mg/dL (8.5-10.1) Total Bilirubin 0.8 mg/dL (0.2-1.0) Aspartate Amino Transf (AST/SGOT) 41 U/L (15-37) Alanine Aminotransferase (ALT/SGPT) 17 U/L (14-59) Alkaline Phosphatase 141 U/L (46-116) Total Protein 8.4 g/dL (6.4-8.2) Albumin 3.3 g/dL (3.4-5.0) Albumin/Globulin Ratio 0.6 (1.0-1.7) Iron Level 37 ug/dL (50-170) Total Iron Binding Capacity 232 ug/dL (250-450) Iron Saturation 16 % (15-34) Urine Collection Type Unknown Urine Color Yellow Urine Clarity Cloudy Urine pH 7.5 Urine Specific [place] 1.010 Urine Protein 100 mg/dL (NEG-TRACE) Urine Glucose (UA) Negative mg/dL (NEG) Urine Ketones (Stick) Negative mg/dL (NEG) Urine Blood Large (NEG) Urine Nitrite Negative (NEG) Urine Bilirubin Negative (NEG) Urine Urobilinogen Dipstick 0.2 mg/dL (0.2 mg/dL) Urine Leukocyte Esterase Large (NEG) Urine RBC 6-10 /HPF (0-2) Urine WBC 20-40 /HPF (0-4) Urine Squamous Epithelial Cells Many /LPF Urine Bacteria Many /HPF (0-FEW) Urine Mucus Slight /LPF Assessment and Plan Assessmemt and Plan Problems Medical Problems: (1) Accelerated hypertension Status: Acute (2) Acute pancreatitis Status: Acute (3) Anemia Status: Chronic (4) Missed dialysis Status: Acute Comment Review of Relevant I have reviewed the following items tamika (where applicable) has been applied. Labs Laboratory Tests Test 09/21/19 16:26 09/21/19 17:30 09/22/19 09:00 09/23/19 03:20 White Blood Count 3.3 x10^3/uL (4.0-11.0) 3.5 x10^3/uL (4.0-11.0) 3.1 x10^3/uL (4.0-11.0) Red Blood Count 2.12 x10^6/uL (3.50-5.40) 2.36 x10^6/uL (3.50-5.40) 2.25 x10^6/uL (3.50-5.40) Hemoglobin 6.5 g/dL (12.0-15.5) 7.3 g/dL (12.0-15.5) 7.1 g/dL (12.0-15.5) Hematocrit 20.0 % (36.0-47.0) 21.6 % (36.0-47.0) 21.2 % (36.0-47.0) Mean Corpuscular Volume 94 fL (79-100) 92 fL (79-100) 94 fL (79-100) Mean Corpuscular Hemoglobin 31 pg (25-35) 31 pg (25-35) 32 pg (25-35) Mean Corpuscular Hemoglobin Concent 33 g/dL (31-37) 34 g/dL (31-37) 34 g/dL (31-37) Red Cell Distribution Width 18.6 % (11.5-14.5) 19.4 % (11.5-14.5) 19.8 % (11.5-14.5) Platelet Count 192 x10^3/uL (140-400) 146 x10^3/uL (140-400) 146 x10^3/uL (140-400) Neutrophils (%) (Auto) 77 % (31-73) 72 % (31-73) Lymphocytes (%) (Auto) 13 % (24-48) 16 % (24-48) Monocytes (%) (Auto) 9 % (0-9) 11 % (0-9) Eosinophils (%) (Auto) 0 % (0-3) 1 % (0-3) Basophils (%) (Auto) 1 % (0-3) 1 % (0-3) Neutrophils # (Auto) 2.5 x10^3/uL (1.8-7.7) 2.6 x10^3/uL (1.8-7.7) Lymphocytes # (Auto) 0.4 x10^3/uL (1.0-4.8) 0.6 x10^3/uL (1.0-4.8) Monocytes # (Auto) 0.3 x10^3/uL (0.0-1.1) 0.4 x10^3/uL (0.0-1.1) Eosinophils # (Auto) 0.0 x10^3/uL (0.0-0.7) 0.0 x10^3/uL (0.0-0.7) Basophils # (Auto) 0.0 x10^3/uL (0.0-0.2) 0.0 x10^3/uL (0.0-0.2) Lactic Acid Level 1.2 mmol/L (0.4-2.0) Troponin I Quantitative < 0.017 ng/mL (0.000-0.055) Sodium Level 132 mmol/L (136-145) 132 mmol/L (136-145) 135 mmol/L (136-145) Potassium Level 3.6 mmol/L (3.5-5.1) 3.9 mmol/L (3.5-5.1) 4.0 mmol/L (3.5-5.1) Chloride Level 90 mmol/L (98-107) 90 mmol/L (98-107) 96 mmol/L (98-107) Carbon Dioxide Level 32 mmol/L (21-32) 30 mmol/L (21-32) 32 mmol/L (21-32) Anion Gap 10 (6-14) 12 (6-14) 7 (6-14) Blood Urea Nitrogen 31 mg/dL (7-20) 37 mg/dL (7-20) 15 mg/dL (7-20) Creatinine 5.4 mg/dL (0.6-1.0) 6.4 mg/dL (0.6-1.0) 3.4 mg/dL (0.6-1.0) Estimated GFR (Cockcroft-Gault) 9.6 7.9 16.4 BUN/Creatinine Ratio 6 (6-20) 6 (6-20) Glucose Level 118 mg/dL (70-99) 117 mg/dL (70-99) 104 mg/dL (70-99) Calcium Level 9.3 mg/dL (8.5-10.1) 9.2 mg/dL (8.5-10.1) 8.9 mg/dL (8.5-10.1) Total Bilirubin 0.8 mg/dL (0.2-1.0) 0.8 mg/dL (0.2-1.0) Aspartate Amino Transf (AST/SGOT) 46 U/L (15-37) 41 U/L (15-37) Alanine Aminotransferase (ALT/SGPT) 18 U/L (14-59) 17 U/L (14-59) Alkaline Phosphatase 164 U/L (46-116) 141 U/L (46-116) Total Protein 8.8 g/dL (6.4-8.2) 8.4 g/dL (6.4-8.2) Albumin 3.4 g/dL (3.4-5.0) 3.3 g/dL (3.4-5.0) Albumin/Globulin Ratio 0.6 (1.0-1.7) 0.6 (1.0-1.7) Lipase 127 U/L (73-393) Iron Level 37 ug/dL (50-170) Total Iron Binding Capacity 232 ug/dL (250-450) Iron Saturation 16 % (15-34) Test 09/23/19 03:30 Urine Collection Type Unknown Urine Color Yellow Urine Clarity Cloudy Urine pH 7.5 Urine Specific [place] 1.010 Urine Protein 100 mg/dL (NEG-TRACE) Urine Glucose (UA) Negative mg/dL (NEG) Urine Ketones (Stick) Negative mg/dL (NEG) Urine Blood Large (NEG) Urine Nitrite Negative (NEG) Urine Bilirubin Negative (NEG) Urine Urobilinogen Dipstick 0.2 mg/dL (0.2 mg/dL) Urine Leukocyte Esterase Large (NEG) Urine RBC 6-10 /HPF (0-2) Urine WBC 20-40 /HPF (0-4) Urine Squamous Epithelial Cells Many /LPF Urine Bacteria Many /HPF (0-FEW) Urine Mucus Slight /LPF Laboratory Tests Test 09/22/19 09:00 09/23/19 03:20 09/23/19 03:30 White Blood Count 3.5 x10^3/uL (4.0-11.0) 3.1 x10^3/uL (4.0-11.0) Red Blood Count 2.36 x10^6/uL (3.50-5.40) 2.25 x10^6/uL (3.50-5.40) Hemoglobin 7.3 g/dL (12.0-15.5) 7.1 g/dL (12.0-15.5) Hematocrit 21.6 % (36.0-47.0) 21.2 % (36.0-47.0) Mean Corpuscular Volume 92 fL (79-100) 94 fL (79-100) Mean Corpuscular Hemoglobin 31 pg (25-35) 32 pg (25-35) Mean Corpuscular Hemoglobin Concent 34 g/dL (31-37) 34 g/dL (31-37) Red Cell Distribution Width 19.4 % (11.5-14.5) 19.8 % (11.5-14.5) Platelet Count 146 x10^3/uL (140-400) 146 x10^3/uL (140-400) Neutrophils (%) (Auto) 72 % (31-73) Lymphocytes (%) (Auto) 16 % (24-48) Monocytes (%) (Auto) 11 % (0-9) Eosinophils (%) (Auto) 1 % (0-3) Basophils (%) (Auto) 1 % (0-3) Neutrophils # (Auto) 2.6 x10^3/uL (1.8-7.7) Lymphocytes # (Auto) 0.6 x10^3/uL (1.0-4.8) Monocytes # (Auto) 0.4 x10^3/uL (0.0-1.1) Eosinophils # (Auto) 0.0 x10^3/uL (0.0-0.7) Basophils # (Auto) 0.0 x10^3/uL (0.0-0.2) Sodium Level 132 mmol/L (136-145) 135 mmol/L (136-145) Potassium Level 3.9 mmol/L (3.5-5.1) 4.0 mmol/L (3.5-5.1) Chloride Level 90 mmol/L (98-107) 96 mmol/L (98-107) Carbon Dioxide Level 30 mmol/L (21-32) 32 mmol/L (21-32) Anion Gap 12 (6-14) 7 (6-14) Blood Urea Nitrogen 37 mg/dL (7-20) 15 mg/dL (7-20) Creatinine 6.4 mg/dL (0.6-1.0) 3.4 mg/dL (0.6-1.0) Estimated GFR (Cockcroft-Gault) 7.9 16.4 BUN/Creatinine Ratio 6 (6-20) Glucose Level 117 mg/dL (70-99) 104 mg/dL (70-99) Calcium Level 9.2 mg/dL (8.5-10.1) 8.9 mg/dL (8.5-10.1) Total Bilirubin 0.8 mg/dL (0.2-1.0) Aspartate Amino Transf (AST/SGOT) 41 U/L (15-37) Alanine Aminotransferase (ALT/SGPT) 17 U/L (14-59) Alkaline Phosphatase 141 U/L (46-116) Total Protein 8.4 g/dL (6.4-8.2) Albumin 3.3 g/dL (3.4-5.0) Albumin/Globulin Ratio 0.6 (1.0-1.7) Iron Level 37 ug/dL (50-170) Total Iron Binding Capacity 232 ug/dL (250-450) Iron Saturation 16 % (15-34) Urine Collection Type Unknown Urine Color Yellow Urine Clarity Cloudy Urine pH 7.5 Urine Specific [place] 1.010 Urine Protein 100 mg/dL (NEG-TRACE) Urine Glucose (UA) Negative mg/dL (NEG) Urine Ketones (Stick) Negative mg/dL (NEG) Urine Blood Large (NEG) Urine Nitrite Negative (NEG) Urine Bilirubin Negative (NEG) Urine Urobilinogen Dipstick 0.2 mg/dL (0.2 mg/dL) Urine Leukocyte Esterase Large (NEG) Urine RBC 6-10 /HPF (0-2) Urine WBC 20-40 /HPF (0-4) Urine Squamous Epithelial Cells Many /LPF Urine Bacteria Many /HPF (0-FEW) Urine Mucus Slight /LPF Medications Current Medications Ondansetron HCl (Zofran) 4 mg 1X ONCE IV Last administered on 09/21/19at 17:04; Start 09/21/19 at 17:00; Stop 09/21/19 at 17:01; Status DC Fentanyl Citrate (Fentanyl 2ml Vial) 50 mcg 1X ONCE IV Last administered on 09/21/19at 17:04; Start 09/21/19 at 17:00; Stop 09/21/19 at 17:01; Status DC Fentanyl Citrate (Fentanyl 2ml Vial) 50 mcg 1X STAT IV Last administered on 09/21/19 19:02; Start 09/21/19 at 18:33; Stop 09/21/19 at 18:36; Status DC Labetalol HCl (Normodyne Iv Push) 20 mg 1X STAT IVP Last administered on 09/21/19at 19:12; Start 09/21/19 at 18:51; Stop 09/21/19 at 18:52; Status DC Ondansetron HCl (Zofran) 4 mg PRN Q8HRS PRN IV NAUSEA/VOMITING Last administered on 09/22/19at 04:57; Start 09/21/19 at 19:00; Stop 09/22/19 at 18:59; Status DC Fentanyl Citrate (Fentanyl 2ml Vial) 50 mcg PRN Q1HR PRN IV PAIN Last administered on 09/22/19at 17:42; Start 09/21/19 at 19:00; Stop 09/22/19 at 18:59; Status DC Folic Acid (Folic Acid) 1 mg DAILY PO ; Start 09/22/19 at 09:00 Vitamin B Complex/ Vitamin C (Yara-Edward) 1 tab DAILY PO ; Start 09/22/19 at 09:00 Lactobacillus Rhamnosus (Culturelle) 1 cap BID PO Last administered on 11/22/18at 21:23; Start 09/22/19 at 09:00 Pantoprazole Sodium (Protonix) 40 mg DAILYAC PO ; Start 09/22/19 at 07:30; Stop 09/22/19 at 10:40; Status DC Polyethylene Glycol (miraLAX PACKET) 17 gm PRN DAILY PRN PO CONSTIPATION 1ST CHOICE; Start 09/21/19 at 21:15 Carvedilol (Coreg) 25 mg BIDWMEALS PO ; Start 09/22/19 at 08:00 Calcium Acetate (Phoslo) 667 mg TIDWMEALS PO ; Start 09/22/19 at 08:00 Pantoprazole Sodium (PROTONIX VIAL for IV PUSH) 40 mg DAILYAC IVP Last administered on 09/22/19at 11:49; Start 09/22/19 at 11:30 Darbepoetin [place] (ARANESP for DIALYSIS PTS) 60 mcg WEEKLYHS SQ Last administered on 09/22/19at 18:08; Start 09/22/19 at 21:00 Barium Sulfate (Liquid E-Z Paque) 355 ml 1X ONCE PO Last administered on 09/22/19at 13:00; Start 09/22/19 at 13:00; Stop 09/22/19 at 13:01; Status DC Sodium Chloride 1,000 ml @ 1,000 mls/hr Q1H PRN IV hypotension; Start 09/22/19 at 14:10; Stop 09/22/19 at 20:09; Status DC Albumin Human 200 ml @ 200 mls/hr 1X PRN PRN IV Hypotension; Start 09/22/19 at 14:15 Sodium Chloride 1,000 ml @ 400 mls/hr Q2H30M PRN IV PATENCY; Start 09/22/19 at 14:10; Stop 09/23/19 at 02:09; Status DC Info (PHARMACY MONITORING -- do not chart) 1 each PRN DAILY PRN MC SEE COMMENTS; Start 09/22/19 at 14:15; Status UNV Info (PHARMACY MONITORING -- do not chart) 1 each PRN DAILY PRN MC SEE COMMENTS; Start 09/22/19 at 14:15 Fentanyl Citrate (Fentanyl 2ml Vial) 50 mcg PRN Q1HR PRN IVP SEVERE PAIN 7-10 Last administered on 09/23/19at 04:17; Start 09/22/19 at 21:00 Hydralazine HCl (Apresoline Inj) 10 mg 1X ONCE IVP Last administered on 09/23/19at 05:00; Start 09/23/19 at 05:00; Stop 09/23/19 at 05:01; Status DC Active Scripts Active Pantoprazole Sodium (Pantoprazole Sodium) 40 Mg Tablet.dr 40 Mg PO DAILYAC 30 Days Culturelle (Lactobacillus Rhamnosus Gg) 1 Each Cap.sprink 1 Cap PO BID 14 Days Reported Nephro-Edward Tablet (Folic Acid/Vitamin B Comp W-C) 0.8 Mg Tablet 1 Tab PO DAILY Calcium Acetate 667 Mg Tablet 667 Mg PO TIDWMEALS Carvedilol 25 Mg Tablet 25 Mg PO BID Folic Acid 1 Mg Tablet 1 Mg PO DAILY Miralax (Polyethylene Glycol 3350) 17 Gm Powd.pack 1 Packet PO PRN DAILY PRN Vitals/I & O Vital Sign - Last 24 Hours 11/26/19 11/26/19 11/26/19 11/26/19 11:00 11:46 12:16 15:54 Temp 98.4 98.4 Pulse 88 Resp 18 24 20 16 B/P (MAP) 165/63 (97) Pulse Ox 94 O2 Delivery Nasal Cannula Room Air Room Air Room Air O2 Flow Rate 2.0 09/22/19 09/22/19 09/22/19 09/22/19 17:42 18:06 19:30 21:23 Temp 98.6 98.6 Pulse 90 Resp 18 14 18 B/P (MAP) 177/78 (111) Pulse Ox 99 99 93 94 O2 Delivery Room Air Room Air Room Air Room Air 09/22/19 09/22/19 09/23/19 09/23/19 21:53 23:00 00:19 00:49 Temp 98.3 98.3 Pulse 89 Resp 19 18 B/P (MAP) 170/73 (105) Pulse Ox 94 95 95 95 O2 Delivery Nasal Cannula Room Air Nasal Cannula Nasal Cannula 09/23/19 09/23/19 09/23/19 09/23/19 03:00 04:17 04:47 05:00 Temp 98.4 98.4 Pulse 89 70 Resp 18 19 B/P (MAP) 187/79 (115) 184/74 Pulse Ox 92 93 O2 Delivery Room Air Nasal Cannula 09/23/19 05:00 Pulse 70 B/P (MAP) 184/74 (110) Intake and Output 09/22/19 09/22/19 09/23/19 15:00 23:00 07:00 Intake Total 0 ml 0 ml Output Total 50 ml Balance 0 ml -50 ml ASHIA MOSS MD Sep 23, 2019 07:48
[2019-09-23] MEDS: PANTOPRAZOLE IV PUSH 40 MG VIAL. IVP SCH (07:53)
[2019-09-23] MEDS ORDERED: methylPREDNISolone ACETATE 80 MG/ML VIAL. INT ART ONE (08:00)
[2019-09-23] MEDS: CALCIUM ACETATE 667 MG CAPSULE PO SCH ×3 (08:00→18:13)
[2019-09-23] MEDS ORDERED: LIDOCAINE 1% PF 5 ML VIAL. INJ ONE (08:00)
[2019-09-23] MEDS ORDERED: DIALYSIS PATIENT. MC PRN ×2 (10:30)
--- NOTE | 2019-09-23 10:42 | PDOC ---
Subjective: Subjective: Didn't eat yesterday, hungry today, still has stomach pain - has moved lower to middle of abdomen. Constant, some nausea. Shoulder pain. Objective: Objective: D/w dialysis nurse - abd pain overnight per floor nurse, now having more shoulder pain than abd pain. Vital Signs: Vital Signs Date Time Temp Pulse Resp B/P (MAP) Pulse Ox O2 Delivery O2 Flow Rate FiO2 09/23/19 09:28 18 100 Room Air 09/23/19 07:00 98.4 95 104/74 (84) 98.4 09/22/19 11:00 2.0 Labs: Laboratory Tests Test 09/23/19 03:20 09/23/19 03:30 White Blood Count 3.1 x10^3/uL Red Blood Count 2.25 x10^6/uL Hemoglobin 7.1 g/dL Hematocrit 21.2 % Mean Corpuscular Volume 94 fL Mean Corpuscular Hemoglobin 32 pg Mean Corpuscular Hemoglobin Concent 34 g/dL Red Cell Distribution Width 19.8 % Platelet Count 146 x10^3/uL Sodium Level 135 mmol/L Potassium Level 4.0 mmol/L Chloride Level 96 mmol/L Carbon Dioxide Level 32 mmol/L Anion Gap 7 Blood Urea Nitrogen 15 mg/dL Creatinine 3.4 mg/dL Estimated GFR (Cockcroft-Gault) 16.4 Glucose Level 104 mg/dL Calcium Level 8.9 mg/dL Iron Level 37 ug/dL Total Iron Binding Capacity 232 ug/dL Iron Saturation 16 % Urine Collection Type Unknown Urine Color Yellow Urine Clarity Cloudy Urine pH 7.5 Urine Specific [place] 1.010 Urine Protein 100 mg/dL Urine Glucose (UA) Negative mg/dL Urine Ketones (Stick) Negative mg/dL Urine Blood Large Urine Nitrite Negative Urine Bilirubin Negative Urine Urobilinogen Dipstick 0.2 mg/dL Urine Leukocyte Esterase Large Urine RBC 6-10 /HPF Urine WBC 20-40 /HPF Urine Squamous Epithelial Cells Many /LPF Urine Bacteria Many /HPF Urine Mucus Slight /LPF Imaging: UGI IMPRESSION: 1. No fluoroscopic evidence for a perforated or penetrating gastric ulcer. Diminished luminal caliber at the distal antrum/pylorus raising the question of edematous/heaped up mucosa in this region but without associated stenosis as contrast passed normally into the duodenum. 2. No concerning abnormality throughout the esophagus. Shoulder X-Ray IMPRESSION: 1. No acute fracture or dislocation. 2. Severe left glenohumeral joint osteoarthritis with prominent subchondral cystic change and inferior projecting osteophytes. PE: GEN: dialyzing LUNGS: room air HEART: RRR ABD: quiet BS, soft, vaguely tender periumbilical NEURO/PSYCH: A & O 3, was asleep A/P: Abd pain, nausea H/o PUD, GERD, ?pancreatitis, cirrhosis Left shoulder pain Chronic anemia, ESRD on HD -- She'd like to try some liquids, will order clears. Continue PPI. IRIS SZYMANSKI Sep 23, 2019 10:42
--- NOTE | 2019-09-23 11:55 | PDOC ---
Renal-Progress Notes Subjective Notes Notes BETTER BUT STILL HAS SOME ABD PAIN History of Present Illness Hx of present illness STABLE Vitals Vitals Vital Signs Date Time Temp Pulse Resp B/P (MAP) Pulse Ox O2 Delivery O2 Flow Rate FiO2 09/23/19 11:32 18 100 09/23/19 09:28 Room Air 09/23/19 07:00 98.4 95 104/74 (84) 98.4 09/22/19 11:00 2.0 Weight Weight [ ] I.O. Intake and Output Intake and Output 09/23/19 07:00 Intake Total 0 ml Output Total 50 ml Balance -50 ml Intake Oral 0 ml Output Urine Total 50 ml Labs Labs Laboratory Tests Test 09/23/19 03:20 09/23/19 03:30 White Blood Count 3.1 x10^3/uL (4.0-11.0) Red Blood Count 2.25 x10^6/uL (3.50-5.40) Hemoglobin 7.1 g/dL (12.0-15.5) Hematocrit 21.2 % (36.0-47.0) Mean Corpuscular Volume 94 fL (79-100) Mean Corpuscular Hemoglobin 32 pg (25-35) Mean Corpuscular Hemoglobin Concent 34 g/dL (31-37) Red Cell Distribution Width 19.8 % (11.5-14.5) Platelet Count 146 x10^3/uL (140-400) Sodium Level 135 mmol/L (136-145) Potassium Level 4.0 mmol/L (3.5-5.1) Chloride Level 96 mmol/L (98-107) Carbon Dioxide Level 32 mmol/L (21-32) Anion Gap 7 (6-14) Blood Urea Nitrogen 15 mg/dL (7-20) Creatinine 3.4 mg/dL (0.6-1.0) Estimated GFR (Cockcroft-Gault) 16.4 Glucose Level 104 mg/dL (70-99) Calcium Level 8.9 mg/dL (8.5-10.1) Iron Level 37 ug/dL (50-170) Total Iron Binding Capacity 232 ug/dL (250-450) Iron Saturation 16 % (15-34) Urine Collection Type Unknown Urine Color Yellow Urine Clarity Cloudy Urine pH 7.5 Urine Specific [place] 1.010 Urine Protein 100 mg/dL (NEG-TRACE) Urine Glucose (UA) Negative mg/dL (NEG) Urine Ketones (Stick) Negative mg/dL (NEG) Urine Blood Large (NEG) Urine Nitrite Negative (NEG) Urine Bilirubin Negative (NEG) Urine Urobilinogen Dipstick 0.2 mg/dL (0.2 mg/dL) Urine Leukocyte Esterase Large (NEG) Urine RBC 6-10 /HPF (0-2) Urine WBC 20-40 /HPF (0-4) Urine Squamous Epithelial Cells Many /LPF Urine Bacteria Many /HPF (0-FEW) Urine Mucus Slight /LPF Review of Systems Constitutional: yes: malaise, weakness, alert Ears/Nose/Throat: Yes: no symptom reported Eyes: Yes: no symptom reported Pulmonary: Yes no symptom reported Cardiovascular: Yes no symptom reported Gastrointestional: Yes: epigastric pain Genitourinary: Yes: no symptom reported Musculoskeletal: Yes: no symptom reported Skin: Yes no symptom reported Endocrine: Yes: no symptom reported Physical Exam General Appearance: no apparent distress Skin: warm Respiratory: bilateral CTA Heart: S1S2 Abdomen: soft, bowel sounds present Genitourinary: bladder flat Extremities: pulses present Neurology: alert, oriented Assessment Assessment IMP ESRD ANEMIA ABD PAIN AND NAUSEA ETOH ABUSE PROB PANCREATITIS VS GASTRITIS CIRRHOSIS PLAN GI EVAL AND TX STARTED ARANESP HD TODAY UF TO DW WILL FOLLOW ENC COMPLIANCE ENC ETOH ABSTINENCE LINNEA SHULTZ MD Sep 23, 2019 11:55
[2019-09-23] MEDS: CARVEDILOL 12.5 MG TABLET. PO SCH ×2 (13:10→18:13)
[2019-09-23] MEDS: FOLIC/VIT B COMP W-C (RENAL) TABLET. PO SCH (13:10)
[2019-09-23] MEDS: FOLIC ACID 1 MG TABLET. PO SCH (13:11)
[2019-09-23] MEDS: LACTOBACILLUS RHAMNOSUS GG 1 CAPSULE. PO SCH ×2 (13:11→22:00)
[2019-09-23] MEDS ORDERED: hydrALAZINE 20 MG/ML VIAL. IVP PRN (14:30)
[2019-09-23 15:00] VITALS: BP 144/48
[2019-09-23 19:45] VITALS: BP 140/53
[2019-09-23 23:44] VITALS: BP 136/48
[2019-09-24] MEDS: fentaNYL PF VIAL 100 MCG/2 ML VIAL IVP PRN ×4 (00:56→17:30)
[2019-09-24 03:48] VITALS: BP 149/65
[2019-09-24] MEDS: PANTOPRAZOLE IV PUSH 40 MG VIAL. IVP SCH (05:58)
[2019-09-24 07:00] VITALS: BP 146/60
--- NOTE | 2019-09-24 08:21 | PDOC ---
PROGRESS NOTES History of Present Illness History of Present Illness VTE Prophylaxis Ordered VTE Prophylaxis Devices: Contraindicated VTE Pharmacological Prophylaxi: Contraindicated Assessment/Plan Assessment/Plan Impression: Acute pancreatitis ON CT ABD inflammatory changes surrounding the pancreas favored represent edematous pancreatitis. No discrete peripancreatic fluid collection is identified. Moderate amount of free fluid within the abdomen, may be reactive to the prior process. Question micronodular contour the liver. Correlate with LFTs this may relate to underlying cirrhosis. fracture deformity involving the right pubic ramus. NAUSEA., INTRACTABLE ESRD ON DIALYSIS Missed dialysis 09/21 Accelerated hypertension Anemia R SHOULDER PAIN CXR consistent with mild to moderate CHF.POA INTRACTABLE PAIN PRE-PYLORIC ULCER ugi -swallow No fluoroscopic evidence for a perforated or penetrating gastric ulcer.Diminished luminal caliber at the distal antrum/pylorus raising the question of edematous/heaped up mucosa in this region but without associated stenosis as contrast passed normally into the duodenum. ADMITTED NEPHROLOGY CONSULT GI CONSULT DVT PROPHYLAXIIS BP CONTROL DIALYSIS [facility] GI REST ORTHO CONSULT UGI w/o GOO or evidence for perf/penetration of ulcer IV PAIN CONTROL 37 MIN PT EXAM, CHART REVIEW, > 50% OF TIME SPENT WITH EXAM, CHART REVIEW, PT CARE COORDINATION Vitals Vitals Vital Signs Date Time Temp Pulse Resp B/P (MAP) Pulse Ox O2 Delivery O2 Flow Rate FiO2 09/24/19 07:00 98.2 88 20 146/60 (88) 97 Room Air 98.2 09/23/19 19:32 2.0 Physical Exam General: No acute distress Heart: Regular rate Lungs: Clear Abdomen: Normal bowel sounds, Soft Extremities: Normal pulses Skin: No breakdown Labs LABS Study: CR upper GI series with air/barium - no KUB INDICATION: Persistent prepyloric ulcer. Concern for penetration or perforation. COMPARISON: Correlation is made to the CT abdomen/pelvis from 09/21/2019 TECHNIQUE: Real-time fluoroscopic evaluation of the upper GI tract from the esophagus through the ligament of Treitz. Watered-down barium was administered. The patient was imaged in multiple projections both upright and supine/prone. FINDINGS: Fluoroscopy time: 2.3 minutes Fluoroscopic dose: 89.9 mGy No mucosal abnormality, stricture or mass was seen throughout the esophagus. No large hiatal hernia. No significant reflux of contrast from the stomach into the esophagus during the study was visualized. Maintained stripping wave with clearance of ingested contrast rapidly from the esophagus into the stomach. Vascular coils noted along the undersurface of the distal stomach in the region of the antrum/pylorus. Real-time evaluation of the stomach and duodenum revealed no extravasation of ingested contrast to suggest a perforated ulcer. No outpouching of contrast was definitively seen to suggest a perforating ulceration as well. The distal antrum/pyloric region was not seen to distend normally throughout the course of the study which could represent a manifestation of edematous/inflamed mucosa. Despite this finding, contrast passed normally and rapidly into the duodenum and into the proximal small bowel. IMPRESSION: 1. No fluoroscopic evidence for a perforated or penetrating gastric ulcer. Diminished luminal caliber at the distal antrum/pylorus raising the question of edematous/heaped up mucosa in this region but without associated stenosis as contrast passed normally into the duodenum. 2. No concerning abnormality throughout the esophagus Electronically signed by: KEHINDE STEWART MD (09/22/2019 6:52 PM) [facility] DICTATED and SIGNED BY: KEHINDE STEWART MD DATE: 09/22/191851 Assessment and Plan Assessmemt and Plan Problems Medical Problems: (1) Accelerated hypertension Status: Acute (2) Acute pancreatitis Status: Acute (3) Anemia Status: Chronic (4) Missed dialysis Status: Acute Comment Review of Relevant I have reviewed the following items tamika (where applicable) has been applied. Labs Laboratory Tests Test 09/22/19 09:00 09/23/19 03:20 09/23/19 03:30 White Blood Count 3.5 x10^3/uL (4.0-11.0) 3.1 x10^3/uL (4.0-11.0) Red Blood Count 2.36 x10^6/uL (3.50-5.40) 2.25 x10^6/uL (3.50-5.40) Hemoglobin 7.3 g/dL (12.0-15.5) 7.1 g/dL (12.0-15.5) Hematocrit 21.6 % (36.0-47.0) 21.2 % (36.0-47.0) Mean Corpuscular Volume 92 fL (79-100) 94 fL (79-100) Mean Corpuscular Hemoglobin 31 pg (25-35) 32 pg (25-35) Mean Corpuscular Hemoglobin Concent 34 g/dL (31-37) 34 g/dL (31-37) Red Cell Distribution Width 19.4 % (11.5-14.5) 19.8 % (11.5-14.5) Platelet Count 146 x10^3/uL (140-400) 146 x10^3/uL (140-400) Neutrophils (%) (Auto) 72 % (31-73) Lymphocytes (%) (Auto) 16 % (24-48) Monocytes (%) (Auto) 11 % (0-9) Eosinophils (%) (Auto) 1 % (0-3) Basophils (%) (Auto) 1 % (0-3) Neutrophils # (Auto) 2.6 x10^3/uL (1.8-7.7) Lymphocytes # (Auto) 0.6 x10^3/uL (1.0-4.8) Monocytes # (Auto) 0.4 x10^3/uL (0.0-1.1) Eosinophils # (Auto) 0.0 x10^3/uL (0.0-0.7) Basophils # (Auto) 0.0 x10^3/uL (0.0-0.2) Sodium Level 132 mmol/L (136-145) 135 mmol/L (136-145) Potassium Level 3.9 mmol/L (3.5-5.1) 4.0 mmol/L (3.5-5.1) Chloride Level 90 mmol/L (98-107) 96 mmol/L (98-107) Carbon Dioxide Level 30 mmol/L (21-32) 32 mmol/L (21-32) Anion Gap 12 (6-14) 7 (6-14) Blood Urea Nitrogen 37 mg/dL (7-20) 15 mg/dL (7-20) Creatinine 6.4 mg/dL (0.6-1.0) 3.4 mg/dL (0.6-1.0) Estimated GFR (Cockcroft-Gault) 7.9 16.4 BUN/Creatinine Ratio 6 (6-20) Glucose Level 117 mg/dL (70-99) 104 mg/dL (70-99) Calcium Level 9.2 mg/dL (8.5-10.1) 8.9 mg/dL (8.5-10.1) Total Bilirubin 0.8 mg/dL (0.2-1.0) Aspartate Amino Transf (AST/SGOT) 41 U/L (15-37) Alanine Aminotransferase (ALT/SGPT) 17 U/L (14-59) Alkaline Phosphatase 141 U/L (46-116) Total Protein 8.4 g/dL (6.4-8.2) Albumin 3.3 g/dL (3.4-5.0) Albumin/Globulin Ratio 0.6 (1.0-1.7) Iron Level 37 ug/dL (50-170) Total Iron Binding Capacity 232 ug/dL (250-450) Iron Saturation 16 % (15-34) Urine Collection Type Unknown Urine Color Yellow Urine Clarity Cloudy Urine pH 7.5 Urine Specific [place] 1.010 Urine Protein 100 mg/dL (NEG-TRACE) Urine Glucose (UA) Negative mg/dL (NEG) Urine Ketones (Stick) Negative mg/dL (NEG) Urine Blood Large (NEG) Urine Nitrite Negative (NEG) Urine Bilirubin Negative (NEG) Urine Urobilinogen Dipstick 0.2 mg/dL (0.2 mg/dL) Urine Leukocyte Esterase Large (NEG) Urine RBC 6-10 /HPF (0-2) Urine WBC 20-40 /HPF (0-4) Urine Squamous Epithelial Cells Many /LPF Urine Bacteria Many /HPF (0-FEW) Urine Mucus Slight /LPF Medications Current Medications Ondansetron HCl (Zofran) 4 mg 1X ONCE IV Last administered on 09/21/19at 17:04; Start 09/21/19 at 17:00; Stop 09/21/19 at 17:01; Status DC Fentanyl Citrate (Fentanyl 2ml Vial) 50 mcg 1X ONCE IV Last administered on 09/21/19at 17:04; Start 09/21/19 at 17:00; Stop 09/21/19 at 17:01; Status DC Fentanyl Citrate (Fentanyl 2ml Vial) 50 mcg 1X STAT IV Last administered on 09/21/19at 19:02; Start 09/21/19 at 18:33; Stop 09/21/19 at 18:36; Status DC Labetalol HCl (Normodyne Iv Push) 20 mg 1X STAT IVP Last administered on 09/21/19at 19:12; Start 09/21/19 at 18:51; Stop 09/21/19 at 18:52; Status DC Ondansetron HCl (Zofran) 4 mg PRN Q8HRS PRN IV NAUSEA/VOMITING Last administered on 09/22/19 04:57; Start 09/21/19 at 19:00; Stop 09/22/19 at 18:59; Status DC Fentanyl Citrate (Fentanyl 2ml Vial) 50 mcg PRN Q1HR PRN IV PAIN Last administered on 09/22/19 17:42; Start 09/21/19 at 19:00; Stop 09/22/19 at 18:59; Status DC Folic Acid (Folic Acid) 1 mg DAILY PO Last administered on 09/23/19 13:11; Start 09/22/19 at 09:00 Vitamin B Complex/ Vitamin C (Yara-Edward) 1 tab DAILY PO Last administered on 09/23/19 13:10; Start 09/22/19 at 09:00 Lactobacillus Rhamnosus (Culturelle) 1 cap BID PO Last administered on 09/23/19 22:00; Start 09/22/19 at 09:00 Pantoprazole Sodium (Protonix) 40 mg DAILYAC PO ; Start 09/22/19 at 07:30; Stop 09/22/19 at 10:40; Status DC Polyethylene Glycol (miraLAX PACKET) 17 gm PRN DAILY PRN PO CONSTIPATION 1ST CHOICE; Start 09/21/19 at 21:15 Carvedilol (Coreg) 25 mg BIDWMEALS PO Last administered on 09/23/19 18:13; Start 09/22/19 at 08:00 Calcium Acetate (Phoslo) 667 mg TIDWMEALS PO Last administered on 09/23/19 18:13; Start 09/22/19 at 08:00 Pantoprazole Sodium (PROTONIX VIAL for IV PUSH) 40 mg DAILYAC IVP Last administered on 09/24/19 05:58; Start 09/22/19 at 11:30 Darbepoetin Bolivar (ARANESP for DIALYSIS PTS) 60 mcg WEEKLYHS SQ Last administered on 09/22/19 18:08; Start 09/22/19 at 21:00 Barium Sulfate (Liquid E-Z Paque) 355 ml 1X ONCE PO Last administered on 11/26/19at 13:00; Start 09/22/19 at 13:00; Stop 09/22/19 at 13:01; Status DC Sodium Chloride 1,000 ml @ 1,000 mls/hr Q1H PRN IV hypotension; Start 09/22/19 at 14:10; Stop 09/22/19 at 20:09; Status DC Albumin Human 200 ml @ 200 mls/hr 1X PRN PRN IV Hypotension; Start 09/22/19 at 14:15 Sodium Chloride 1,000 ml @ 400 mls/hr Q2H30M PRN IV PATENCY; Start 09/22/19 at 14:10; Stop 09/23/19 at 02:09; Status DC Info (PHARMACY MONITORING -- do not chart) 1 each PRN DAILY PRN MC SEE COMMENTS; Start 09/22/19 at 14:15; Status UNV Info (PHARMACY MONITORING -- do not chart) 1 each PRN DAILY PRN MC SEE COMMENTS; Start 09/22/19 at 14:15 Fentanyl Citrate (Fentanyl 2ml Vial) 50 mcg PRN Q1HR PRN IVP SEVERE PAIN 7-10 Last administered on 09/23/19at 11:32; Start 09/22/19 at 21:00; Stop 09/23/19 at 14:29; Status DC Hydralazine HCl (Apresoline Inj) 10 mg 1X ONCE IVP Last administered on 08/29 05/15at 05:00; Start 09/23/19 at 05:00; Stop 09/23/19 at 05:01; Status DC Methylprednisolone Acetate (DEPO-Medrol 80MG VIAL) 80 mg 1X ONCE INT ART ; Start 09/23/19 at 08:00; Stop 09/23/19 at 08:09; Status DC Lidocaine HCl (Xylocaine-Mpf 1% 5ml Vial) 5 ml 1X ONCE INJ ; Start 09/23/19 at 08:00; Stop 09/23/19 at 08:09; Status DC Sodium Chloride 1,000 ml @ 1,000 mls/hr Q1H PRN IV hypotension; Start 09/23/19 at 07:00; Stop 09/23/19 at 12:59; Status DC Sodium Chloride 1,000 ml @ 400 mls/hr Q2H30M PRN IV PATENCY; Start 09/23/19 at 07:00; Stop 09/23/19 at 18:59; Status DC Info (PHARMACY MONITORING -- do not chart) 1 each PRN DAILY PRN MC SEE COMMENTS; Start 09/23/19 at 10:30; Status UNV Info (PHARMACY MONITORING -- do not chart) 1 each PRN DAILY PRN MC SEE COMMENTS; Start 09/23/19 at 10:30; Status UNV Fentanyl Citrate (Fentanyl 2ml Vial) 75 mcg PRN Q3HRS PRN IVP PAIN Last administered on 09/24/19at 00:56; Start 09/23/19 at 14:30 Hydralazine HCl (Apresoline Inj) 10 mg PRN Q4HRS PRN IVP ELEVATED BP, SEE COMMENTS; Start 09/23/19 at 14:30 Active Scripts Active Pantoprazole Sodium (Pantoprazole Sodium) 40 Mg Tablet.dr 40 Mg PO DAILYAC 30 Days Culturelle (Lactobacillus Rhamnosus Gg) 1 Each Cap.sprink 1 Cap PO BID 14 Days Reported Nephro-Edward Tablet (Folic Acid/Vitamin B Comp W-C) 0.8 Mg Tablet 1 Tab PO DAILY Calcium Acetate 667 Mg Tablet 667 Mg PO TIDWMEALS Carvedilol 25 Mg Tablet 25 Mg PO BID Folic Acid 1 Mg Tablet 1 Mg PO DAILY Miralax (Polyethylene Glycol 3350) 17 Gm Powd.pack 1 Packet PO PRN DAILY PRN Vitals/I & O Vital Sign - Last 24 Hours 09/23/19 09/23/19 09/23/19 09/23/19 09:22 09:28 10:00 11:32 Resp 18 18 16 18 Pulse Ox 100 100 100 O2 Delivery Room Air Room Air Room Air 09/23/19 09/23/19 09/23/19 09/23/19 12:02 13:10 14:38 15:00 Temp 98.4 98.4 Pulse 95 71 Resp 17 17 18 B/P (MAP) 104/74 144/48 (80) Pulse Ox 96 O2 Delivery Room Air Room Air Room Air 09/23/19 09/23/19 09/23/19 09/23/19 15:10 18:13 18:14 18:50 Pulse 71 Resp 16 17 16 B/P (MAP) 144/48 O2 Delivery Room Air Room Air 09/23/19 09/23/19 09/23/19 09/23/19 19:32 19:45 21:59 22:19 Temp 99.0 99.0 Pulse 74 Resp 20 B/P (MAP) 140/53 (82) Pulse Ox 94 O2 Delivery Nasal Cannula Room Air Room Air Room Air O2 Flow Rate 2.0 09/23/19 09/24/19 09/24/19 09/24/19 23:44 00:56 01:14 03:48 Temp 98.5 98.5 98.5 98.5 Pulse 68 72 Resp 20 20 B/P (MAP) 136/48 (77) 149/65 (93) Pulse Ox 96 94 O2 Delivery Room Air Room Air Room Air Room Air 09/24/19 07:00 Temp 98.2 98.2 Pulse 88 Resp 20 B/P (MAP) 146/60 (88) Pulse Ox 97 O2 Delivery Room Air Intake and Output 09/23/19 09/23/19 09/24/19 15:00 23:00 07:00 Intake Total 200 ml 540 ml Balance 200 ml 540 ml ASHIA MOSS MD Sep 24, 2019 08:21
[2019-09-24] MEDS: LACTOBACILLUS RHAMNOSUS GG 1 CAPSULE. PO SCH ×2 (08:26→21:43)
[2019-09-24] MEDS: FOLIC/VIT B COMP W-C (RENAL) TABLET. PO SCH (08:26)
[2019-09-24] MEDS: CALCIUM ACETATE 667 MG CAPSULE PO SCH ×3 (08:26→17:29)
[2019-09-24] MEDS: FOLIC ACID 1 MG TABLET. PO SCH (08:27)
[2019-09-24] MEDS: CARVEDILOL 12.5 MG TABLET. PO SCH ×2 (08:27→17:29)
--- NOTE | 2019-09-24 10:48 | PDOC ---
SUBJECTIVE ROS Follow-up for ESRD on hemodialysis Saturday Patient tells me she has no complaints and wants to go home today for Thanksgiving CVS: no Orthopnea, no CP RESP: no SOB, no CORTES GI: no Nausea, no Vomiting : no Dysuria, no Urgency OBJECTIVE Vital Signs Vital Signs Date Time Temp Pulse Resp B/P (MAP) Pulse Ox O2 Delivery O2 Flow Rate FiO2 09/24/19 09:06 97 Room Air 09/24/19 08:27 88 146/60 09/24/19 07:00 98.2 20 98.2 09/23/19 19:32 2.0 I & 0 Intake and Output 09/24/19 07:00 Intake Total 740 ml Balance 740 ml Intake Oral 740 ml # Voids 2 # Bowel Movements 3 PHYSICAL EXAM Physical Exam GEN: Awake, Oriented x 3, In no distress EYES: Vision Unchanged, Conjunctiva Normal EN: No EN Drainage, Mucous Membranes moist NECK: no JVD, no JVP, Supple, no Thyromegaly CVS: S1S2, soft Murmur, No Gallop, No Rub,no Edema RESP: no Rales, no Rhonchi,no Acc. Muscle Use GI: BS + ve, NO Bruit, Non Tender, Non Distended : no CVA tenderness, no Suprapubic Tenderness DIAGNOSIS/ASSESSMENT Assessment & Plan ESRD: Current fluid and E-lyte status does not necessitate emergent need for dialysis. Will re-evaluate for dialysis in the am and continue on TTSat schedule. Patient was dialyzed yesterday and will be going to outpatient dialysis on Saturday ANEMIA; continue Aranap as ordered, Transfuse with next HD as needed. She may benefit from IV iron also HTN: Current BP meds as reviewed. See orders for changes. BONE & MINERAL: Follow phosphorus levels and alter binder regimen as needed. Discussed Plan of Care with family [] at bedside [] over the phone COMMENT/RELEVANT DATA Meds Current Medications Medications (Trade) Dose Ordered Sig/Kimberly Start Time Stop Time Status Last Admin Dose Admin Albumin Human 200 ml @ 200 mls/hr 1X PRN PRN 09/22/19 14:15 Barium Sulfate (Liquid E-Z Paque) 355 ml 1X ONCE 09/22/19 13:00 09/22/19 13:01 DC 09/22/19 13:00 355 ML Calcium Acetate (Phoslo) 667 mg TIDWMEALS 09/22/19 08:00 09/24/19 08:26 667 MG Carvedilol (Coreg) 25 mg BIDWMEALS 09/22/19 08:00 09/24/19 08:27 25 MG Darbepoetin Bolivar (ARANESP for DIALYSIS PTS) 60 mcg WEEKLYHS 09/22/19 21:00 09/22/19 18:08 60 MCG Fentanyl Citrate (Fentanyl 2ml Vial) 75 mcg PRN Q3HRS PRN 09/23/19 14:30 09/24/19 08:32 75 MCG Folic Acid (Folic Acid) 1 mg DAILY 09/22/19 09:00 09/24/19 08:27 1 MG Hydralazine HCl (Apresoline Inj) 10 mg PRN Q4HRS PRN 09/23/19 14:30 Info (PHARMACY MONITORING -- do not chart) 1 each PRN DAILY PRN 09/23/19 10:30 UNV Labetalol HCl (Normodyne Iv Push) 20 mg 1X STAT 09/21/19 18:51 09/21/19 18:52 DC 09/21/19 19:12 20 MG Lactobacillus Rhamnosus (Culturelle) 1 cap BID 09/22/19 09:00 09/24/19 08:26 1 CAP Lidocaine HCl (Xylocaine-Mpf 1% 5ml Vial) 5 ml 1X ONCE 09/23/19 08:00 09/23/19 08:09 DC Methylprednisolone Acetate (DEPO-Medrol 80MG VIAL) 80 mg 1X ONCE 09/23/19 08:00 09/23/19 08:09 DC Ondansetron HCl (Zofran) 4 mg PRN Q8HRS PRN 09/21/19 19:00 09/22/19 18:59 DC 09/22/19 04:57 4 MG Pantoprazole Sodium (PROTONIX VIAL for IV PUSH) 40 mg DAILYAC 09/22/19 11:30 09/24/19 05:58 40 MG Pantoprazole Sodium (Protonix) 40 mg DAILYAC 09/22/19 07:30 09/22/19 10:40 DC Polyethylene Glycol (miraLAX PACKET) 17 gm PRN DAILY PRN 09/21/19 21:15 Sodium Chloride 1,000 ml @ 400 mls/hr Q2H30M PRN 09/23/19 07:00 09/23/19 18:59 DC Vitamin B Complex/ Vitamin C (Yara-Edward) 1 tab DAILY 09/22/19 09:00 09/24/19 08:26 1 TAB Results All relevant outside records, renal labs, imaging studies, telemetry/EKG's were reviewed. PAYTON MORALES MD Sep 24, 2019 10:48
[2019-09-24 10:58] VITALS: BP 139/37
[2019-09-24 14:49] VITALS: BP 153/69
[2019-09-24 19:40] VITALS: BP 149/54
[2019-09-24 23:30] VITALS: BP 152/56
[2019-09-25] MEDS ORDERED: ALBUTEROL SULFATE 2.5 MG/3 ML NEBU. NEB PRN (01:00)
[2019-09-25] MEDS ORDERED: traZODone 50 MG TABLET. PO PRN (02:45)
[2019-09-25 03:45] VITALS: BP 121/49
[2019-09-25 05:47] LABS: BASO % 1 % (0-3); EOS # 0.1 x10^3/uL (0.0-0.7); EOS % 4 % (0-3); LYMPH # 0.5 x10^3/uL (1.0-4.8); LYMPH % 22 % (24-48); MEAN CORPUSCULAR HEMOGLOBIN 31 pg (25-35); MEAN CORPUSCULAR HGB CONC 33 g/dL (31-37); MEAN CORPUSCULAR VOLUME 96 fL (79-100); MONO # 0.4 x10^3/uL (0.0-1.1); MONO % 15 % (0-9); NEUT # 1.4 x10^3/uL (1.8-7.7); NEUT % 58 % (31-73); PLATELET COUNT 128 x10^3/uL (140-400); RED BLOOD COUNT 2.14 x10^6/uL (3.50-5.40); RED CELL DISTRIBUTION WIDTH 19.8 % (11.5-14.5); WHITE BLOOD COUNT 2.4 x10^3/uL (4.0-11.0)
[2019-09-25 05:57] LABS: HEMATOCRIT 20.5 % (36.0-47.0); HEMOGLOBIN 6.7 g/dL (12.0-15.5)
[2019-09-25 06:07] LABS: ALBUMIN 3.1 g/dL (3.4-5.0); ALBUMIN/GLOBULIN RATIO 0.6 (1.0-1.7); CALCIUM 9.1 mg/dL (8.5-10.1); CREATININE 4.3 mg/dL (0.6-1.0); GFR 12.5; POTASSIUM 3.8 mmol/L (3.5-5.1); TOTAL BILIRUBIN 0.5 mg/dL (0.2-1.0); TOTAL PROTEIN 8.2 g/dL (6.4-8.2)
--- NOTE | 2019-09-25 07:32 | PDOC ---
PROGRESS NOTES History of Present Illness History of Present Illness VTE Prophylaxis Ordered VTE Prophylaxis Devices: Contraindicated VTE Pharmacological Prophylaxi: Contraindicated Assessment/Plan Assessment/Plan Impression: Acute pancreatitis ON CT ABD inflammatory changes surrounding the pancreas favored represent edematous pancreatitis. No discrete peripancreatic fluid collection is identified. Moderate amount of free fluid within the abdomen, may be reactive to the prior process. Question micronodular contour the liver. Correlate with LFTs this may relate to underlying cirrhosis. fracture deformity involving the right pubic ramus. NAUSEA., INTRACTABLE ESRD ON DIALYSIS Missed dialysis 09/21 Accelerated hypertension Anemia R SHOULDER PAIN CXR consistent with mild to moderate CHF.POA INTRACTABLE PAIN PRE-PYLORIC ULCER ugi -swallow No fluoroscopic evidence for a perforated or penetrating gastric ulcer.Diminished luminal caliber at the distal antrum/pylorus raising the question of edematous/heaped up mucosa in this region but without associated stenosis as contrast passed normally into the duodenum. WORSENING ANEMIA, TRANSFUSION 09/25 ADMITTED NEPHROLOGY CONSULT GI CONSULT DVT PROPHYLAXIIS BP CONTROL DIALYSIS SHANNON GI REST ORTHO CONSULT UGI w/o GOO or evidence for perf/penetration of ulcer IV PAIN CONTROL 38 MIN PT EXAM, CHART REVIEW, > 50% OF TIME SPENT WITH EXAM, CHART REVIEW, PT CARE COORDINATION Vitals Vitals Vital Signs Date Time Temp Pulse Resp B/P (MAP) Pulse Ox O2 Delivery O2 Flow Rate FiO2 09/25/19 03:45 97.7 71 18 121/49 (73) 96 Room Air 97.7 09/24/19 19:30 2.0 Physical Exam General: No acute distress Heart: Regular rate Lungs: Clear Abdomen: Normal bowel sounds, Soft Extremities: Normal pulses Skin: No breakdown Labs LABS Laboratory Tests Test 09/25/19 04:43 09/25/19 04:45 Sodium Level 137 mmol/L (136-145) Potassium Level 3.8 mmol/L (3.5-5.1) Chloride Level 98 mmol/L (98-107) Carbon Dioxide Level 31 mmol/L (21-32) Anion Gap 8 (6-14) Blood Urea Nitrogen 18 mg/dL (7-20) Creatinine 4.3 mg/dL (0.6-1.0) Estimated GFR (Cockcroft-Gault) 12.5 BUN/Creatinine Ratio 4 (6-20) Glucose Level 108 mg/dL (70-99) Calcium Level 9.1 mg/dL (8.5-10.1) Total Bilirubin 0.5 mg/dL (0.2-1.0) Aspartate Amino Transf (AST/SGOT) 31 U/L (15-37) Alanine Aminotransferase (ALT/SGPT) 13 U/L (14-59) Alkaline Phosphatase 130 U/L (46-116) Total Protein 8.2 g/dL (6.4-8.2) Albumin 3.1 g/dL (3.4-5.0) Albumin/Globulin Ratio 0.6 (1.0-1.7) White Blood Count 2.4 x10^3/uL (4.0-11.0) Red Blood Count 2.14 x10^6/uL (3.50-5.40) Hemoglobin 6.7 g/dL (12.0-15.5) Hematocrit 20.5 % (36.0-47.0) Mean Corpuscular Volume 96 fL (79-100) Mean Corpuscular Hemoglobin 31 pg (25-35) Mean Corpuscular Hemoglobin Concent 33 g/dL (31-37) Red Cell Distribution Width 19.8 % (11.5-14.5) Platelet Count 128 x10^3/uL (140-400) Neutrophils (%) (Auto) 58 % (31-73) Lymphocytes (%) (Auto) 22 % (24-48) Monocytes (%) (Auto) 15 % (0-9) Eosinophils (%) (Auto) 4 % (0-3) Basophils (%) (Auto) 1 % (0-3) Neutrophils # (Auto) 1.4 x10^3/uL (1.8-7.7) Lymphocytes # (Auto) 0.5 x10^3/uL (1.0-4.8) Monocytes # (Auto) 0.4 x10^3/uL (0.0-1.1) Eosinophils # (Auto) 0.1 x10^3/uL (0.0-0.7) Basophils # (Auto) 0.0 x10^3/uL (0.0-0.2) Assessment and Plan Assessmemt and Plan Problems Medical Problems: (1) Accelerated hypertension Status: Acute (2) Acute pancreatitis Status: Acute (3) Anemia Status: Chronic (4) Missed dialysis Status: Acute Comment Review of Relevant I have reviewed the following items tamika (where applicable) has been applied. Labs Laboratory Tests Test 09/25/19 04:43 09/25/19 04:45 Sodium Level 137 mmol/L (136-145) Potassium Level 3.8 mmol/L (3.5-5.1) Chloride Level 98 mmol/L (98-107) Carbon Dioxide Level 31 mmol/L (21-32) Anion Gap 8 (6-14) Blood Urea Nitrogen 18 mg/dL (7-20) Creatinine 4.3 mg/dL (0.6-1.0) Estimated GFR (Cockcroft-Gault) 12.5 BUN/Creatinine Ratio 4 (6-20) Glucose Level 108 mg/dL (70-99) Calcium Level 9.1 mg/dL (8.5-10.1) Total Bilirubin 0.5 mg/dL (0.2-1.0) Aspartate Amino Transf (AST/SGOT) 31 U/L (15-37) Alanine Aminotransferase (ALT/SGPT) 13 U/L (14-59) Alkaline Phosphatase 130 U/L (46-116) Total Protein 8.2 g/dL (6.4-8.2) Albumin 3.1 g/dL (3.4-5.0) Albumin/Globulin Ratio 0.6 (1.0-1.7) White Blood Count 2.4 x10^3/uL (4.0-11.0) Red Blood Count 2.14 x10^6/uL (3.50-5.40) Hemoglobin 6.7 g/dL (12.0-15.5) Hematocrit 20.5 % (36.0-47.0) Mean Corpuscular Volume 96 fL (79-100) Mean Corpuscular Hemoglobin 31 pg (25-35) Mean Corpuscular Hemoglobin Concent 33 g/dL (31-37) Red Cell Distribution Width 19.8 % (11.5-14.5) Platelet Count 128 x10^3/uL (140-400) Neutrophils (%) (Auto) 58 % (31-73) Lymphocytes (%) (Auto) 22 % (24-48) Monocytes (%) (Auto) 15 % (0-9) Eosinophils (%) (Auto) 4 % (0-3) Basophils (%) (Auto) 1 % (0-3) Neutrophils # (Auto) 1.4 x10^3/uL (1.8-7.7) Lymphocytes # (Auto) 0.5 x10^3/uL (1.0-4.8) Monocytes # (Auto) 0.4 x10^3/uL (0.0-1.1) Eosinophils # (Auto) 0.1 x10^3/uL (0.0-0.7) Basophils # (Auto) 0.0 x10^3/uL (0.0-0.2) Laboratory Tests Test 09/25/19 04:43 09/25/19 04:45 Sodium Level 137 mmol/L (136-145) Potassium Level 3.8 mmol/L (3.5-5.1) Chloride Level 98 mmol/L (98-107) Carbon Dioxide Level 31 mmol/L (21-32) Anion Gap 8 (6-14) Blood Urea Nitrogen 18 mg/dL (7-20) Creatinine 4.3 mg/dL (0.6-1.0) Estimated GFR (Cockcroft-Gault) 12.5 BUN/Creatinine Ratio 4 (6-20) Glucose Level 108 mg/dL (70-99) Calcium Level 9.1 mg/dL (8.5-10.1) Total Bilirubin 0.5 mg/dL (0.2-1.0) Aspartate Amino Transf (AST/SGOT) 31 U/L (15-37) Alanine Aminotransferase (ALT/SGPT) 13 U/L (14-59) Alkaline Phosphatase 130 U/L (46-116) Total Protein 8.2 g/dL (6.4-8.2) Albumin 3.1 g/dL (3.4-5.0) Albumin/Globulin Ratio 0.6 (1.0-1.7) White Blood Count 2.4 x10^3/uL (4.0-11.0) Red Blood Count 2.14 x10^6/uL (3.50-5.40) Hemoglobin 6.7 g/dL (12.0-15.5) Hematocrit 20.5 % (36.0-47.0) Mean Corpuscular Volume 96 fL (79-100) Mean Corpuscular Hemoglobin 31 pg (25-35) Mean Corpuscular Hemoglobin Concent 33 g/dL (31-37) Red Cell Distribution Width 19.8 % (11.5-14.5) Platelet Count 128 x10^3/uL (140-400) Neutrophils (%) (Auto) 58 % (31-73) Lymphocytes (%) (Auto) 22 % (24-48) Monocytes (%) (Auto) 15 % (0-9) Eosinophils (%) (Auto) 4 % (0-3) Basophils (%) (Auto) 1 % (0-3) Neutrophils # (Auto) 1.4 x10^3/uL (1.8-7.7) Lymphocytes # (Auto) 0.5 x10^3/uL (1.0-4.8) Monocytes # (Auto) 0.4 x10^3/uL (0.0-1.1) Eosinophils # (Auto) 0.1 x10^3/uL (0.0-0.7) Basophils # (Auto) 0.0 x10^3/uL (0.0-0.2) Microbiology 09/23/19 Urine Culture - Final, Complete 09/23/19 Urine Culture Result 1 (SANJUANITA) - Final, Complete Medications Current Medications Ondansetron HCl (Zofran) 4 mg 1X ONCE IV Last administered on 09/21/19at 17:04; Start 09/21/19 at 17:00; Stop 09/21/19 at 17:01; Status DC Fentanyl Citrate (Fentanyl 2ml Vial) 50 mcg 1X ONCE IV Last administered on 09/21/19at 17:04; Start 09/21/19 at 17:00; Stop 09/21/19 at 17:01; Status DC Fentanyl Citrate (Fentanyl 2ml Vial) 50 mcg 1X STAT IV Last administered on 09/21/19at 19:02; Start 09/21/19 at 18:33; Stop 09/21/19 at 18:36; Status DC Labetalol HCl (Normodyne Iv Push) 20 mg 1X STAT IVP Last administered on 09/21/19at 19:12; Start 09/21/19 at 18:51; Stop 09/21/19 at 18:52; Status DC Ondansetron HCl (Zofran) 4 mg PRN Q8HRS PRN IV NAUSEA/VOMITING Last administered on 09/22/19at 04:57; Start 09/21/19 at 19:00; Stop 09/22/19 at 18:59; Status DC Fentanyl Citrate (Fentanyl 2ml Vial) 50 mcg PRN Q1HR PRN IV PAIN Last administered on 09/22/19 17:42; Start 09/21/19 at 19:00; Stop 09/22/19 at 18:59; Status DC Folic Acid (Folic Acid) 1 mg DAILY PO Last administered on 09/24/19 08:27; Start 09/22/19 at 09:00 Vitamin B Complex/ Vitamin C (Yara-Edward) 1 tab DAILY PO Last administered on 09/24/19 08:26; Start 09/22/19 at 09:00 Lactobacillus Rhamnosus (Culturelle) 1 cap BID PO Last administered on 09/24/19 21:43; Start 09/22/19 at 09:00 Pantoprazole Sodium (Protonix) 40 mg DAILYAC PO ; Start 09/22/19 at 07:30; Stop 09/22/19 at 10:40; Status DC Polyethylene Glycol (miraLAX PACKET) 17 gm PRN DAILY PRN PO CONSTIPATION 1ST CHOICE; Start 09/21/19 at 21:15 Carvedilol (Coreg) 25 mg BIDWMEALS PO Last administered on 09/24/19 17:29; Start 09/22/19 at 08:00 Calcium Acetate (Phoslo) 667 mg TIDWMEALS PO Last administered on 09/24/19 17:29; Start 09/22/19 at 08:00 Pantoprazole Sodium (PROTONIX VIAL for IV PUSH) 40 mg DAILYAC IVP Last administered on 09/24/19at 05:58; Start 09/22/19 at 11:30 Darbepoetin Bolivar (ARANESP for DIALYSIS PTS) 60 mcg WEEKLYHS SQ Last administered on 09/22/19 18:08; Start 09/22/19 at 21:00 Barium Sulfate (Liquid E-Z Paque) 355 ml 1X ONCE PO Last administered on 09/22/19at 13:00; Start 09/22/19 at 13:00; Stop 09/22/19 at 13:01; Status DC Sodium Chloride 1,000 ml @ 1,000 mls/hr Q1H PRN IV hypotension; Start 09/22/19 at 14:10; Stop 09/22/19 at 20:09; Status DC Albumin Human 200 ml @ 200 mls/hr 1X PRN PRN IV Hypotension; Start 09/22/19 at 14:15 Sodium Chloride 1,000 ml @ 400 mls/hr Q2H30M PRN IV PATENCY; Start 09/22/19 at 14:10; Stop 09/23/19 at 02:09; Status DC Info (PHARMACY MONITORING -- do not chart) 1 each PRN DAILY PRN MC SEE COMMENTS; Start 09/22/19 at 14:15; Status UNV Info (PHARMACY MONITORING -- do not chart) 1 each PRN DAILY PRN MC SEE COMMENTS; Start 09/22/19 at 14:15 Fentanyl Citrate (Fentanyl 2ml Vial) 50 mcg PRN Q1HR PRN IVP SEVERE PAIN 7-10 Last administered on 09/23/19at 11:32; Start 09/22/19 at 21:00; Stop 09/23/19 at 14:29; Status DC Hydralazine HCl (Apresoline Inj) 10 mg 1X ONCE IVP Last administered on 09/23/19at 05:00; Start 09/23/19 at 05:00; Stop 09/23/19 at 05:01; Status DC Methylprednisolone Acetate (DEPO-Medrol 80MG VIAL) 80 mg 1X ONCE INT ART ; St art 09/23/19 at 08:00; Stop 09/23/19 at 08:09; Status DC Lidocaine HCl (Xylocaine-Mpf 1% 5ml Vial) 5 ml 1X ONCE INJ ; Start 09/23/19 at 08:00; Stop 09/23/19 at 08:09; Status DC Sodium Chloride 1,000 ml @ 1,000 mls/hr Q1H PRN IV hypotension; Start 09/23/19 at 07:00; Stop 09/23/19 at 12:59; Status DC Sodium Chloride 1,000 ml @ 400 mls/hr Q2H30M PRN IV PATENCY; Start 09/23/19 at 07:00; Stop 09/23/19 at 18:59; Status DC Info (PHARMACY MONITORING -- do not chart) 1 each PRN DAILY PRN MC SEE JYOTI TS; Start 09/23/19 at 10:30; Status UNV Info (PHARMACY MONITORING -- do not chart) 1 each PRN DAILY PRN MC SEE COMMENTS; Start 09/23/19 at 10:30; Status UNV Fentanyl Citrate (Fentanyl 2ml Vial) 75 mcg PRN Q3HRS PRN IVP PAIN Last administered on 09/24/19at 17:30; Start 09/23/19 at 14:30 Hydralazine HCl (Apresoline Inj) 10 mg PRN Q4HRS PRN IVP ELEVATED BP, SEE COMMENTS; Start 09/23/19 at 14:30 Trazodone HCl (Desyrel) 150 mg QHS PO ; Start 09/25/19 at 21:00 Albuterol Sulfate (Ventolin Neb Soln) 2.5 mg PRN Q2HRS PRN NEB SOB / WHILE AWAKE; Start 09/25/19 at 01:00 Trazodone HCl (Desyrel) 150 mg 1X PRN PO HICCUPS Last administered on 09/25/19at 02:52; Start 09/25/19 at 02:45 Active Scripts Active Pantoprazole Sodium (Pantoprazole Sodium) 40 Mg Tablet.dr 40 Mg PO DAILYAC 30 Days Culturelle (Lactobacillus Rhamnosus Gg) 1 Each Cap.sprink 1 Cap PO BID 14 Days Reported Nephro-Edward Tablet (Folic Acid/Vitamin B Comp W-C) 0.8 Mg Tablet 1 Tab PO DAILY Calcium Acetate 667 Mg Tablet 667 Mg PO TIDWMEALS Carvedilol 25 Mg Tablet 25 Mg PO BID Folic Acid 1 Mg Tablet 1 Mg PO DAILY Miralax (Polyethylene Glycol 3350) 17 Gm Powd.pack 1 Packet PO PRN DAILY PRN Vitals/I & O Vital Sign - Last 24 Hours 09/24/19 09/24/19 09/24/19 09/24/19 08:00 08:27 08:32 09:06 Pulse 88 B/P (MAP) 146/60 Pulse Ox 97 97 O2 Delivery Room Air Room Air Room Air 09/24/19 09/24/19 09/24/19 09/24/19 10:58 12:01 12:34 14:49 Temp 98.4 98.5 98.4 98.5 Pulse 71 81 Resp 20 18 B/P (MAP) 139/37 (71) 153/69 (97) Pulse Ox 97 97 97 98 O2 Delivery Room Air Room Air Room Air Room Air 09/24/19 09/24/19 09/24/1919 17:29 17:30 18:08 19:30 Pulse 81 B/P (MAP) 153/69 Pulse Ox 98 98 O2 Delivery Room Air Room Air Nasal Cannula O2 Flow Rate 2.0 09/24/19 09/24/19 09/25/19 19:40 23:30 03:45 Temp 99.0 98.4 97.7 99.0 98.4 97.7 Pulse 71 70 71 Resp 18 18 18 B/P (MAP) 149/54 (85) 152/56 (88) 121/49 (73) Pulse Ox 95 100 96 O2 Delivery Room Air Room Air Room Air Intake and Output 09/24/19 09/24/19 09/25/19 15:00 23:00 07:00 Intake Total 480 ml 500 ml 550 ml Balance 480 ml 500 ml 550 ml ASHIA MOSS MD Sep 25, 2019 07:32
[2019-09-25 07:41] VITALS: BP 166/59
[2019-09-25] MEDS: CALCIUM ACETATE 667 MG CAPSULE PO SCH ×3 (08:21→16:31)
[2019-09-25] MEDS: FOLIC/VIT B COMP W-C (RENAL) TABLET. PO SCH (08:21)
[2019-09-25] MEDS: LACTOBACILLUS RHAMNOSUS GG 1 CAPSULE. PO SCH ×2 (08:21→19:58)
[2019-09-25] MEDS: CARVEDILOL 12.5 MG TABLET. PO SCH ×2 (08:21→16:32)
[2019-09-25] MEDS: FOLIC ACID 1 MG TABLET. PO SCH (08:22)
[2019-09-25] MEDS: PANTOPRAZOLE IV PUSH 40 MG VIAL. IVP SCH (08:22)
[2019-09-25] MEDS: fentaNYL PF VIAL 100 MCG/2 ML VIAL IVP PRN ×3 (08:27→19:58)
[2019-09-25 10:56] VITALS: BP 122/42
--- NOTE | 2019-09-25 13:22 | PDOC ---
SUBJECTIVE ROS Follow-up for ESRD on hemodialysis Saturday Patient denies signs of active bleeding CVS: no Orthopnea, no CP RESP: no SOB, no CORTES GI: no Nausea, no Vomiting : no Dysuria, no Urgency OBJECTIVE Vital Signs Vital Signs Date Time Temp Pulse Resp B/P (MAP) Pulse Ox O2 Delivery O2 Flow Rate FiO2 09/25/19 12:38 Room Air 09/25/19 10:56 98.6 65 18 122/42 (68) 97 98.6 09/24/19 19:30 2.0 I & 0 Intake and Output 09/25/19 07:00 Intake Total 1530 ml Balance 1530 ml Intake Oral 1530 ml # Voids 2 PHYSICAL EXAM Physical Exam GEN: Awake, Oriented x 3, In no distress EYES: Vision Unchanged, Conjunctiva Normal EN: No EN Drainage, Mucous Membranes moist NECK: no JVD, no JVP, Supple, no Thyromegaly CVS: S1S2, soft Murmur, No Gallop, No Rub,no Edema RESP: no Rales, no Rhonchi,no Acc. Muscle Use GI: BS + ve, NO Bruit, Non Tender, Non Distended : no CVA tenderness, no Suprapubic Tenderness DIAGNOSIS/ASSESSMENT Assessment & Plan ESRD: Current fluid and E-lyte status does not necessitate emergent need for dialysis. Will re-evaluate for dialysis in the am and continue on TTSat schedule. ANEMIA in the setting of ESRD; evaluation for blood loss will be deferred to GI and primary team. continue Aranap as ordered, Transfuse with next HD as needed. She may benefit from IV iron also HTN: Current BP meds as reviewed. See orders for changes. BONE & MINERAL: Follow phosphorus levels and alter binder regimen as needed. Discussed Plan of Care with patient at bedside DIAGNOSIS/ASSESSMENT Assessment & Plan ESRD/ARF: Current fluid and E-lyte status does not necessitate emergent need for dialysis. Will re-evaluate for dialysis in the am and continue on [] schedule. ANEMIA; [] Aranap as ordered, [] Transfuse [] with next HD as needed HTN: Current BP meds as reviewed. See orders for changes. BONE & MINERAL: [] Discussed Plan of Care with family [] at bedside [] over the phone COMMENT/RELEVANT DATA Meds Current Medications Medications (Trade) Dose Ordered Sig/Kimberly Start Time Stop Time Status Last Admin Dose Admin Albumin Human 200 ml @ 200 mls/hr 1X PRN PRN 09/22/19 14:15 Albuterol Sulfate (Ventolin Neb Soln) 2.5 mg PRN Q2HRS PRN 09/25/19 01:00 Barium Sulfate (Liquid E-Z Paque) 355 ml 1X ONCE 09/22/19 13:00 09/22/19 13:01 DC 09/22/19 13:00 355 ML Calcium Acetate (Phoslo) 667 mg TIDWMEALS 09/22/19 08:00 09/25/19 12:37 667 MG Carvedilol (Coreg) 25 mg BIDWMEALS 09/22/19 08:00 09/25/19 08:21 25 MG Darbepoetin Bolivar (ARANESP for DIALYSIS PTS) 60 mcg WEEKLYHS 09/22/19 21:00 09/22/19 18:08 60 MCG Fentanyl Citrate (Fentanyl 2ml Vial) 75 mcg PRN Q3HRS PRN 09/23/19 14:30 09/25/19 12:38 75 MCG Folic Acid (Folic Acid) 1 mg DAILY 09/22/19 09:00 09/25/19 08:22 1 MG Hydralazine HCl (Apresoline Inj) 10 mg PRN Q4HRS PRN 09/23/19 14:30 Info (PHARMACY MONITORING -- do not chart) 1 each PRN DAILY PRN 09/23/19 10:30 UNV Labetalol HCl (Normodyne Iv Push) 20 mg 1X STAT 09/21/19 18:51 09/21/19 18:52 DC 09/21/19 19:12 20 MG Lactobacillus Rhamnosus (Culturelle) 1 cap BID 09/22/19 09:00 09/25/19 08:21 1 CAP Lidocaine HCl (Xylocaine-Mpf 1% 5ml Vial) 5 ml 1X ONCE 09/23/19 08:00 09/23/19 08:09 DC Methylprednisolone Acetate (DEPO-Medrol 80MG VIAL) 80 mg 1X ONCE 09/23/19 08:00 09/23/19 08:09 DC Ondansetron HCl (Zofran) 4 mg PRN Q8HRS PRN 09/21/19 19:00 09/22/19 18:59 DC 09/22/19 04:57 4 MG Pantoprazole Sodium (PROTONIX VIAL for IV PUSH) 40 mg DAILYAC 09/22/19 11:30 09/25/19 08:22 40 MG Pantoprazole Sodium (Protonix) 40 mg DAILYAC 09/22/19 07:30 09/22/19 10:40 DC Polyethylene Glycol (miraLAX PACKET) 17 gm PRN DAILY PRN 09/21/19 21:15 Sodium Chloride 1,000 ml @ 400 mls/hr Q2H30M PRN 09/23/19 07:00 09/23/19 18:59 DC Trazodone HCl (Desyrel) 150 mg 1X PRN 09/25/19 02:45 09/25/19 02:52 150 MG Vitamin B Complex/ Vitamin C (Yara-Edward) 1 tab DAILY 09/22/19 09:00 09/25/19 08:21 1 TAB Lab Laboratory Tests Test 09/25/19 04:43 09/25/19 04:45 Sodium Level 137 mmol/L (136-145) Potassium Level 3.8 mmol/L (3.5-5.1) Chloride Level 98 mmol/L (98-107) Carbon Dioxide Level 31 mmol/L (21-32) Anion Gap 8 (6-14) Blood Urea Nitrogen 18 mg/dL (7-20) Creatinine 4.3 mg/dL (0.6-1.0) Estimated GFR (Cockcroft-Gault) 12.5 BUN/Creatinine Ratio 4 (6-20) Glucose Level 108 mg/dL (70-99) Calcium Level 9.1 mg/dL (8.5-10.1) Total Bilirubin 0.5 mg/dL (0.2-1.0) Aspartate Amino Transf (AST/SGOT) 31 U/L (15-37) Alanine Aminotransferase (ALT/SGPT) 13 U/L (14-59) Alkaline Phosphatase 130 U/L (46-116) Total Protein 8.2 g/dL (6.4-8.2) Albumin 3.1 g/dL (3.4-5.0) Albumin/Globulin Ratio 0.6 (1.0-1.7) White Blood Count 2.4 x10^3/uL (4.0-11.0) Red Blood Count 2.14 x10^6/uL (3.50-5.40) Hemoglobin 6.7 g/dL (12.0-15.5) Hematocrit 20.5 % (36.0-47.0) Mean Corpuscular Volume 96 fL (79-100) Mean Corpuscular Hemoglobin 31 pg (25-35) Mean Corpuscular Hemoglobin Concent 33 g/dL (31-37) Red Cell Distribution Width 19.8 % (11.5-14.5) Platelet Count 128 x10^3/uL (140-400) Neutrophils (%) (Auto) 58 % (31-73) Lymphocytes (%) (Auto) 22 % (24-48) Monocytes (%) (Auto) 15 % (0-9) Eosinophils (%) (Auto) 4 % (0-3) Basophils (%) (Auto) 1 % (0-3) Neutrophils # (Auto) 1.4 x10^3/uL (1.8-7.7) Lymphocytes # (Auto) 0.5 x10^3/uL (1.0-4.8) Monocytes # (Auto) 0.4 x10^3/uL (0.0-1.1) Eosinophils # (Auto) 0.1 x10^3/uL (0.0-0.7) Basophils # (Auto) 0.0 x10^3/uL (0.0-0.2) Results All relevant outside records, renal labs, imaging studies, telemetry/EKG's were reviewed. PAYTON MORALES MD Sep 25, 2019 13:22
[2019-09-25 15:15] VITALS: BP 147/64
[2019-09-25] MEDS: HYDROcodone/APAP 7.5/325MG 1 TAB TABLET PO PRN (15:15)
[2019-09-25 19:10] VITALS: BP 154/66
[2019-09-25] MEDS: traZODone 50 MG TABLET. PO SCH (19:59)
[2019-09-25 23:29] VITALS: BP 151/72
[2019-09-26] VITALS (8 sets, daily range): BP systolic 138–169; BP diastolic 45–74
[2019-09-26] MEDS: HYDROcodone/APAP 7.5/325MG 1 TAB TABLET PO PRN ×3 (03:28→20:18)
[2019-09-26] MEDS: fentaNYL PF VIAL 100 MCG/2 ML VIAL IVP PRN ×3 (09:01→17:31)
[2019-09-26] MEDS ORDERED: IV NORMAL SALINE 1000ML BAG 1,000 ML IV PRN ×2 (09:24)
[2019-09-26] MEDS ORDERED: DIALYSIS PATIENT. MC PRN (09:30)
[2019-09-26] MEDS ORDERED: ALBUMIN HUMAN 25% 200 ML IV PRN (09:30)
[2019-09-26 09:33] LABS: ALBUMIN 3.1 g/dL (3.4-5.0); CALCIUM 8.8 mg/dL (8.5-10.1); CREATININE 6.1 mg/dL (0.6-1.0); GFR 8.4; PHOSPHORUS 3.6 mg/dL (2.6-4.7); POTASSIUM 4.1 mmol/L (3.5-5.1)
--- NOTE | 2019-09-26 09:33 | PDOC ---
Dialysis Progress Note Dialysis Note Dialysis Note Seen on Hemodialysis, tolerating treatment Well so far Vitals on Hemodialysis: 128/65 66 96.8 General Appearance: Awake: Alert Oriented x 2-3 Neck: No JVD or JVP Chest: CTA [place] Heart: S1 S2 Abdomen - Soft NTND Extremities - No Edema ESRD: Dialysis as below F 180 NR 3.5 Hrs 3 K 2.5 Ca 140 Na 30 HC03 Qb 350 + Qd 500+ Heparin 0 Units Uf 2 Kgs or to dry weight as tolerated Transfuse 1-2 Units PRCBC's on HD May give 25-50 gms of 25% Albumin if needed to maintain Hemodynamic stability Treatment plan reviewed and discussed with research and development engineer Vitals Vital Signs Vital Signs Date Time Temp Pulse Resp B/P (MAP) Pulse Ox O2 Delivery O2 Flow Rate FiO2 09/26/19 09:01 94 Room Air 2.0 09/26/19 07:00 98.0 67 14 150/53 (85) 98.0 Labs Last Labs Laboratory Tests Test 09/25/19 04:43 09/25/19 04:45 Sodium Level 137 mmol/L (136-145) Potassium Level 3.8 mmol/L (3.5-5.1) Chloride Level 98 mmol/L (98-107) Carbon Dioxide Level 31 mmol/L (21-32) Anion Gap 8 (6-14) Blood Urea Nitrogen 18 mg/dL (7-20) Creatinine 4.3 mg/dL (0.6-1.0) Estimated GFR (Cockcroft-Gault) 12.5 BUN/Creatinine Ratio 4 (6-20) Glucose Level 108 mg/dL (70-99) Calcium Level 9.1 mg/dL (8.5-10.1) Total Bilirubin 0.5 mg/dL (0.2-1.0) Aspartate Amino Transf (AST/SGOT) 31 U/L (15-37) Alanine Aminotransferase (ALT/SGPT) 13 U/L (14-59) Alkaline Phosphatase 130 U/L (46-116) Total Protein 8.2 g/dL (6.4-8.2) Albumin 3.1 g/dL (3.4-5.0) Albumin/Globulin Ratio 0.6 (1.0-1.7) White Blood Count 2.4 x10^3/uL (4.0-11.0) Red Blood Count 2.14 x10^6/uL (3.50-5.40) Hemoglobin 6.7 g/dL (12.0-15.5) Hematocrit 20.5 % (36.0-47.0) Mean Corpuscular Volume 96 fL (79-100) Mean Corpuscular Hemoglobin 31 pg (25-35) Mean Corpuscular Hemoglobin Concent 33 g/dL (31-37) Red Cell Distribution Width 19.8 % (11.5-14.5) Platelet Count 128 x10^3/uL (140-400) Neutrophils (%) (Auto) 58 % (31-73) Lymphocytes (%) (Auto) 22 % (24-48) Monocytes (%) (Auto) 15 % (0-9) Eosinophils (%) (Auto) 4 % (0-3) Basophils (%) (Auto) 1 % (0-3) Neutrophils # (Auto) 1.4 x10^3/uL (1.8-7.7) Lymphocytes # (Auto) 0.5 x10^3/uL (1.0-4.8) Monocytes # (Auto) 0.4 x10^3/uL (0.0-1.1) Eosinophils # (Auto) 0.1 x10^3/uL (0.0-0.7) Basophils # (Auto) 0.0 x10^3/uL (0.0-0.2) Assessment Assessment Problems Medical Problems: (1) Accelerated hypertension Status: Acute (2) Acute pancreatitis Status: Acute (3) Anemia Status: Chronic (4) Missed dialysis Status: Acute Plan Plan of Care Problems Medical Problems: (1) Accelerated hypertension Status: Acute (2) Acute pancreatitis Status: Acute (3) Anemia Status: Chronic (4) Missed dialysis Status: Acute PAYTON MORALES MD Sep 26, 2019 09:33
[2019-09-26 09:50] LABS: BASO # 0.1 x10^3/uL (0.0-0.2); BASO % 2 % (0-3); EOS # 0.1 x10^3/uL (0.0-0.7); EOS % 3 % (0-3); HEMATOCRIT 21.2 % (36.0-47.0); LYMPH # 0.6 x10^3/uL (1.0-4.8); LYMPH % 21 % (24-48); MEAN CORPUSCULAR HEMOGLOBIN 31 pg (25-35); MEAN CORPUSCULAR HGB CONC 32 g/dL (31-37); MEAN CORPUSCULAR VOLUME 95 fL (79-100); MONO # 0.3 x10^3/uL (0.0-1.1); MONO % 11 % (0-9); NEUT # 1.7 x10^3/uL (1.8-7.7); NEUT % 63 % (31-73); PLATELET COUNT 127 x10^3/uL (140-400); RED BLOOD COUNT 2.22 x10^6/uL (3.50-5.40); RED CELL DISTRIBUTION WIDTH 19.6 % (11.5-14.5); WHITE BLOOD COUNT 2.7 x10^3/uL (4.0-11.0)
[2019-09-26 09:58] LABS: HEMOGLOBIN 6.9 g/dL (12.0-15.5)
--- NOTE | 2019-09-26 11:23 | PDOC ---
PROGRESS NOTES History of Present Illness History of Present Illness VTE Prophylaxis Ordered VTE Prophylaxis Devices: Contraindicated VTE Pharmacological Prophylaxi: Contraindicated Assessment/Plan Assessment/Plan Impression: Acute pancreatitis ON CT ABD inflammatory changes surrounding the pancreas favored represent edematous pancreatitis. No discrete peripancreatic fluid collection is identified. Moderate amount of free fluid within the abdomen, may be reactive to the prior process. Question micronodular contour the liver. Correlate with LFTs this may relate to underlying cirrhosis. fracture deformity involving the right pubic ramus. NAUSEA., INTRACTABLE ESRD ON DIALYSIS Missed dialysis 09/21 Accelerated hypertension Anemia R SHOULDER PAIN CXR consistent with mild to moderate CHF.POA INTRACTABLE PAIN PRE-PYLORIC ULCER ugi -swallow No fluoroscopic evidence for a perforated or penetrating gastric ulcer.Diminished luminal caliber at the distal antrum/pylorus raising the question of edematous/heaped up mucosa in this region but without associated stenosis as contrast passed normally into the duodenum. WORSENING ANEMIA, TRANSFUSION 09/26 ADMITTED NEPHROLOGY CONSULT GI CONSULT DVT PROPHYLAXIIS BP CONTROL DIALYSIS SHANNON GI REST ORTHO CONSULT UGI w/o GOO or evidence for perf/penetration of ulcer IV PAIN CONTROL TRANSFUSE TODAY 1 UNIT PRBC'S 39 MIN PT EXAM, CHART REVIEW, > 50% OF TIME SPENT WITH EXAM, CHART REVIEW, PT CARE COORDINATION Vitals Vitals Vital Signs Date Time Temp Pulse Resp B/P (MAP) Pulse Ox O2 Delivery O2 Flow Rate FiO2 09/26/19 09:01 94 Room Air 2.0 09/26/19 07:00 98.0 67 14 150/53 (85) 98.0 Physical Exam General: Alert, Oriented X3, Cooperative, No acute distress, mild distress Heart: Regular rate, Normal S1 Lungs: Clear Abdomen: Normal bowel sounds, Soft Extremities: Normal pulses Skin: No breakdown Labs LABS MAZIN GALLEGO MD ORDERED: URINE CULTURE Procedure Result URINE CULTURE Final Final report URINE CULTURE RES 1 Final Comment Mixed urogenital lowell 50,000-100,000 colony forming units per mL Performed at: - [facility] [place] [address], [place], [place] [id number] Lapel Padder Blindstitch: TAMIE Julio MD, Phone: [phone] Laboratory Tests Test 09/26/19 07:05 White Blood Count 2.7 x10^3/uL (4.0-11.0) Red Blood Count 2.22 x10^6/uL (3.50-5.40) Hemoglobin 6.9 g/dL (12.0-15.5) Hematocrit 21.2 % (36.0-47.0) Mean Corpuscular Volume 95 fL (79-100) Mean Corpuscular Hemoglobin 31 pg (25-35) Mean Corpuscular Hemoglobin Concent 32 g/dL (31-37) Red Cell Distribution Width 19.6 % (11.5-14.5) Platelet Count 127 x10^3/uL (140-400) Neutrophils (%) (Auto) 63 % (31-73) Lymphocytes (%) (Auto) 21 % (24-48) Monocytes (%) (Auto) 11 % (0-9) Eosinophils (%) (Auto) 3 % (0-3) Basophils (%) (Auto) 2 % (0-3) Neutrophils # (Auto) 1.7 x10^3/uL (1.8-7.7) Lymphocytes # (Auto) 0.6 x10^3/uL (1.0-4.8) Monocytes # (Auto) 0.3 x10^3/uL (0.0-1.1) Eosinophils # (Auto) 0.1 x10^3/uL (0.0-0.7) Basophils # (Auto) 0.1 x10^3/uL (0.0-0.2) Sodium Level 136 mmol/L (136-145) Potassium Level 4.1 mmol/L (3.5-5.1) Chloride Level 98 mmol/L (98-107) Carbon Dioxide Level 28 mmol/L (21-32) Anion Gap 10 (6-14) Blood Urea Nitrogen 26 mg/dL (7-20) Creatinine 6.1 mg/dL (0.6-1.0) Estimated GFR (Cockcroft-Gault) 8.4 Glucose Level 165 mg/dL (70-99) Calcium Level 8.8 mg/dL (8.5-10.1) Phosphorus Level 3.6 mg/dL (2.6-4.7) Albumin 3.1 g/dL (3.4-5.0) Assessment and Plan Assessmemt and Plan Problems Medical Problems: (1) Accelerated hypertension Status: Acute (2) Acute pancreatitis Status: Acute (3) Anemia Status: Chronic (4) Missed dialysis Status: Acute Comment Review of Relevant I have reviewed the following items tamika (where applicable) has been applied. Labs Laboratory Tests Test 09/25/19 04:43 09/25/19 04:45 09/26/19 07:05 Sodium Level 137 mmol/L (136-145) 136 mmol/L (136-145) Potassium Level 3.8 mmol/L (3.5-5.1) 4.1 mmol/L (3.5-5.1) Chloride Level 98 mmol/L (98-107) 98 mmol/L (98-107) Carbon Dioxide Level 31 mmol/L (21-32) 28 mmol/L (21-32) Anion Gap 8 (6-14) 10 (6-14) Blood Urea Nitrogen 18 mg/dL (7-20) 26 mg/dL (7-20) Creatinine 4.3 mg/dL (0.6-1.0) 6.1 mg/dL (0.6-1.0) Estimated GFR (Cockcroft-Gault) 12.5 8.4 BUN/Creatinine Ratio 4 (6-20) Glucose Level 108 mg/dL (70-99) 165 mg/dL (70-99) Calcium Level 9.1 mg/dL (8.5-10.1) 8.8 mg/dL (8.5-10.1) Total Bilirubin 0.5 mg/dL (0.2-1.0) Aspartate Amino Transf (AST/SGOT) 31 U/L (15-37) Alanine Aminotransferase (ALT/SGPT) 13 U/L (14-59) Alkaline Phosphatase 130 U/L (46-116) Total Protein 8.2 g/dL (6.4-8.2) Albumin 3.1 g/dL (3.4-5.0) 3.1 g/dL (3.4-5.0) Albumin/Globulin Ratio 0.6 (1.0-1.7) White Blood Count 2.4 x10^3/uL (4.0-11.0) 2.7 x10^3/uL (4.0-11.0) Red Blood Count 2.14 x10^6/uL (3.50-5.40) 2.22 x10^6/uL (3.50-5.40) Hemoglobin 6.7 g/dL (12.0-15.5) 6.9 g/dL (12.0-15.5) Hematocrit 20.5 % (36.0-47.0) 21.2 % (36.0-47.0) Mean Corpuscular Volume 96 fL (79-100) 95 fL (79-100) Mean Corpuscular Hemoglobin 31 pg (25-35) 31 pg (25-35) Mean Corpuscular Hemoglobin Concent 33 g/dL (31-37) 32 g/dL (31-37) Red Cell Distribution Width 19.8 % (11.5-14.5) 19.6 % (11.5-14.5) Platelet Count 128 x10^3/uL (140-400) 127 x10^3/uL (140-400) Neutrophils (%) (Auto) 58 % (31-73) 63 % (31-73) Lymphocytes (%) (Auto) 22 % (24-48) 21 % (24-48) Monocytes (%) (Auto) 15 % (0-9) 11 % (0-9) Eosinophils (%) (Auto) 4 % (0-3) 3 % (0-3) Basophils (%) (Auto) 1 % (0-3) 2 % (0-3) Neutrophils # (Auto) 1.4 x10^3/uL (1.8-7.7) 1.7 x10^3/uL (1.8-7.7) Lymphocytes # (Auto) 0.5 x10^3/uL (1.0-4.8) 0.6 x10^3/uL (1.0-4.8) Monocytes # (Auto) 0.4 x10^3/uL (0.0-1.1) 0.3 x10^3/uL (0.0-1.1) Eosinophils # (Auto) 0.1 x10^3/uL (0.0-0.7) 0.1 x10^3/uL (0.0-0.7) Basophils # (Auto) 0.0 x10^3/uL (0.0-0.2) 0.1 x10^3/uL (0.0-0.2) Phosphorus Level 3.6 mg/dL (2.6-4.7) Laboratory Tests Test 09/26/19 07:05 White Blood Count 2.7 x10^3/uL (4.0-11.0) Red Blood Count 2.22 x10^6/uL (3.50-5.40) Hemoglobin 6.9 g/dL (12.0-15.5) Hematocrit 21.2 % (36.0-47.0) Mean Corpuscular Volume 95 fL (79-100) Mean Corpuscular Hemoglobin 31 pg (25-35) Mean Corpuscular Hemoglobin Concent 32 g/dL (31-37) Red Cell Distribution Width 19.6 % (11.5-14.5) Platelet Count 127 x10^3/uL (140-400) Neutrophils (%) (Auto) 63 % (31-73) Lymphocytes (%) (Auto) 21 % (24-48) Monocytes (%) (Auto) 11 % (0-9) Eosinophils (%) (Auto) 3 % (0-3) Basophils (%) (Auto) 2 % (0-3) Neutrophils # (Auto) 1.7 x10^3/uL (1.8-7.7) Lymphocytes # (Auto) 0.6 x10^3/uL (1.0-4.8) Monocytes # (Auto) 0.3 x10^3/uL (0.0-1.1) Eosinophils # (Auto) 0.1 x10^3/uL (0.0-0.7) Basophils # (Auto) 0.1 x10^3/uL (0.0-0.2) Sodium Level 136 mmol/L (136-145) Potassium Level 4.1 mmol/L (3.5-5.1) Chloride Level 98 mmol/L (98-107) Carbon Dioxide Level 28 mmol/L (21-32) Anion Gap 10 (6-14) Blood Urea Nitrogen 26 mg/dL (7-20) Creatinine 6.1 mg/dL (0.6-1.0) Estimated GFR (Cockcroft-Gault) 8.4 Glucose Level 165 mg/dL (70-99) Calcium Level 8.8 mg/dL (8.5-10.1) Phosphorus Level 3.6 mg/dL (2.6-4.7) Albumin 3.1 g/dL (3.4-5.0) Microbiology 09/23/19 Urine Culture - Final, Complete 09/23/19 Urine Culture Result 1 (SANJUANITA) - Final, Complete Medications Current Medications Ondansetron HCl (Zofran) 4 mg 1X ONCE IV Last administered on 09/21/19at 17:04; Start 09/21/19 at 17:00; Stop 09/21/19 at 17:01; Status DC Fentanyl Citrate (Fentanyl 2ml Vial) 50 mcg 1X ONCE IV Last administered on 09/21/19at 17:04; Start 09/21/19 at 17:00; Stop 09/21/19 at 17:01; Status DC Fentanyl Citrate (Fentanyl 2ml Vial) 50 mcg 1X STAT IV Last administered on 09/21/19at 19:02; Start 09/21/19 at 18:33; Stop 09/21/19 at 18:36; Status DC Labetalol HCl (Normodyne Iv Push) 20 mg 1X STAT IVP Last administered on 09/21/19at 19:12; Start 09/21/19 at 18:51; Stop 09/21/19 at 18:52; Status DC Ondansetron HCl (Zofran) 4 mg PRN Q8HRS PRN IV NAUSEA/VOMITING Last administered on 09/22/19 04:57; Start 09/21/19 at 19:00; Stop 09/22/19 at 18:59; Status DC Fentanyl Citrate (Fentanyl 2ml Vial) 50 mcg PRN Q1HR PRN IV PAIN Last administered on 09/22/19 17:42; Start 09/21/19 at 19:00; Stop 09/22/19 at 18:59; Status DC Folic Acid (Folic Acid) 1 mg DAILY PO Last administered on 09/25/19 08:22; Start 09/22/19 at 09:00 Vitamin B Complex/ Vitamin C (Yara-Edward) 1 tab DAILY PO Last administered on 09/25/19 08:21; Start 09/22/19 at 09:00 Lactobacillus Rhamnosus (Culturelle) 1 cap BID PO Last administered on 09/25/19 19:58; Start 09/22/19 at 09:00 Pantoprazole Sodium (Protonix) 40 mg DAILYAC PO ; Start 09/22/19 at 07:30; Stop 09/22/19 at 10:40; Status DC Polyethylene Glycol (miraLAX PACKET) 17 gm PRN DAILY PRN PO CONSTIPATION 1ST CHOICE Last administered on 09/26/19 03:41; Start 09/21/19 at 21:15 Carvedilol (Coreg) 25 mg BIDWMEALS PO Last administered on 09/25/19 16:32; Start 09/22/19 at 08:00 Calcium Acetate (Phoslo) 667 mg TIDWMEALS PO Last administered on 09/25/19 16:31; Start 09/22/19 at 08:00 Pantoprazole Sodium (PROTONIX VIAL for IV PUSH) 40 mg DAILYAC IVP Last administered on 09/25/19 08:22; Start 09/22/19 at 11:30 Darbepoetin Bolivar (ARANESP for DIALYSIS PTS) 60 mcg WEEKLYHS SQ Last administered on 09/22/19 18:08; Start 09/22/19 at 21:00 Barium Sulfate (Liquid E-Z Paque) 355 ml 1X ONCE PO Last administered on 09/22/19at 13:00; Start 09/22/19 at 13:00; Stop 09/22/19 at 13:01; Status DC Sodium Chloride 1,000 ml @ 1,000 mls/hr Q1H PRN IV hypotension; Start 09/22/19 at 14:10; Stop 09/22/19 at 20:09; Status DC Albumin Human 200 ml @ 200 mls/hr 1X PRN PRN IV Hypotension; Start 09/22/19 at 14:15 Sodium Chloride 1,000 ml @ 400 mls/hr Q2H30M PRN IV PATENCY; Start 09/22/19 at 14:10; Stop 09/23/19 at 02:09; Status DC Info (PHARMACY MONITORING -- do not chart) 1 each PRN DAILY PRN MC SEE COMMENTS; Start 09/22/19 at 14:15; Status UNV Info (PHARMACY MONITORING -- do not chart) 1 each PRN DAILY PRN MC SEE COMME NTS; Start 09/22/19 at 14:15 Fentanyl Citrate (Fentanyl 2ml Vial) 50 mcg PRN Q1HR PRN IVP SEVERE PAIN 7-10 Last administered on 09/23/19at 11:32; Start 09/22/19 at 21:00; Stop 09/23/19 at 14:29; Status DC Hydralazine HCl (Apresoline Inj) 10 mg 1X ONCE IVP Last administered on 09/23/19at 05:00; Start 09/23/19 at 05:00; Stop 09/23/19 at 05:01; Status DC Methylprednisolone Acetate (DEPO-Medrol 80MG VIAL) 80 mg 1X ONCE INT ART ; Start 09/23/19 at 08:00; Stop 09/23/19 at 08:09; Status DC Lidocaine HCl (Xylocaine-Mpf 1% 5ml Vial) 5 ml 1X ONCE INJ ; Start 09/23/19 at 08:00; Stop 09/23/19 at 08:09; Status DC Sodium Chloride 1,000 ml @ 1,000 mls/hr Q1H PRN IV hypotension; Start 09/23/19 at 07:00; Stop 09/23/19 at 12:59; Status DC Sodium Chloride 1,000 ml @ 400 mls/hr Q2H30M PRN IV PATENCY; Start 09/23/19 at 07:00; Stop 09/23/19 at 18:59; Status DC Info (PHARMACY MONITORING -- do not chart) 1 each PRN DAILY PRN MC SEE COMMENTS; Start 09/23/19 at 10:30; Status UNV Info (PHARMACY MONITORING -- do not chart) 1 each PRN DAILY PRN MC SEE COMMENTS; Start 09/23/19 at 10:30; Status UNV Fentanyl Citrate (Fentanyl 2ml Vial) 75 mcg PRN Q3HRS PRN IVP PAIN Last administered on 09/26/19at 09:01; Start 09/23/19 at 14:30 Hydralazine HCl (Apresoline Inj) 10 mg PRN Q4HRS PRN IVP ELEVATED BP, SEE COMMENTS; Start 09/23/19 at 14:30 Trazodone HCl (Desyrel) 150 mg QHS PO Last administered on 09/25/19at 19:59; Start 09/25/19 at 21:00 Albuterol Sulfate (Ventolin Neb Soln) 2.5 mg PRN Q2HRS PRN NEB SOB / WHILE AWAKE; Start 09/25/19 at 01:00 Trazodone HCl (Desyrel) 150 mg 1X PRN PO HICCUPS Last administered on 09/25/19at 02:52; Start 09/25/19 at 02:45 Acetaminophen/ Hydrocodone Bitart (Lortab 7.5/325) 1 tab PRN Q6HRS PRN PO MODERATE PAIN Last administered on 09/26/19at 03:28; Start 09/25/19 at 14:00 Sodium Chloride 1,000 ml @ 1,000 mls/hr Q1H PRN IV hypotension; Start 09/26/19 at 09:24; Stop 09/26/19 at 15:23 Albumin Human 200 ml @ 200 mls/hr 1X PRN PRN IV Hypotension; Start 09/26/19 at 09:30; Stop 09/26/19 at 15:29 Sodium Chloride 1,000 ml @ 400 mls/hr Q2H30M PRN IV PATENCY; Start 09/26/19 at 09:24; Stop 09/26/19 at 21:23 Info (PHARMACY MONITORING -- do not chart) 1 each PRN DAILY PRN MC SEE COMMENTS; Start 09/26/19 at 09:30 Active Scripts Active Pantoprazole Sodium (Pantoprazole Sodium) 40 Mg Tablet.dr 40 Mg PO DAILYAC 30 Days Culturelle (Lactobacillus Rhamnosus Gg) 1 Each Cap.sprink 1 Cap PO BID 14 Days Reported Nephro-Edward Tablet (Folic Acid/Vitamin B Comp W-C) 0.8 Mg Tablet 1 Tab PO DAILY Calcium Acetate 667 Mg Tablet 667 Mg PO TIDWMEALS Carvedilol 25 Mg Tablet 25 Mg PO BID Folic Acid 1 Mg Tablet 1 Mg PO DAILY Miralax (Polyethylene Glycol 3350) 17 Gm Powd.pack 1 Packet PO PRN DAILY PRN Vitals/I & O Vital Sign - Last 24 Hours 09/25/19 09/25/19 09/25/19 09/25/19 12:38 13:08 15:15 15:15 Temp 98.8 98.8 Pulse 91 Resp 18 B/P (MAP) 147/64 (91) Pulse Ox 96 O2 Delivery Room Air Room Air Room Air Room Air 09/25/19 09/25/19 09/25/19 09/25/19 16:15 16:32 19:10 20:00 Temp 98.2 98.2 Pulse 91 72 Resp 20 B/P (MAP) 147/64 154/66 (95) Pulse Ox 93 O2 Delivery Room Air Room Air Room Air 09/25/19 09/25/19 09/26/19 09/26/19 20:28 23:29 03:37 05:08 Temp 98.7 98.7 98.7 98.7 Pulse 70 71 Resp 18 20 B/P (MAP) 151/72 (98) 138/74 (95) Pulse Ox 93 92 99 O2 Delivery Room Air Room Air Room Air 09/26/19 09/26/19 07:00 09:01 Temp 98.0 98.0 Pulse 67 Resp 14 B/P (MAP) 150/53 (85) Pulse Ox 94 94 O2 Delivery Nasal Cannula Room Air O2 Flow Rate 2.0 Intake and Output 09/25/19 09/25/19 09/26/19 15:00 23:00 07:00 Intake Total 600 ml 400 ml 300 ml Balance 600 ml 400 ml 300 ml ASHIA MOSS MD Sep 26, 2019 11:23
[2019-09-26] MEDS: CALCIUM ACETATE 667 MG CAPSULE PO SCH ×3 (12:00→17:31)
[2019-09-26] MEDS: PANTOPRAZOLE IV PUSH 40 MG VIAL. IVP SCH (13:32)
[2019-09-26] MEDS: FOLIC/VIT B COMP W-C (RENAL) TABLET. PO SCH (13:32)
[2019-09-26] MEDS: LACTOBACILLUS RHAMNOSUS GG 1 CAPSULE. PO SCH ×2 (13:33→20:18)
[2019-09-26] MEDS: CARVEDILOL 12.5 MG TABLET. PO SCH ×2 (13:33→17:31)
[2019-09-26] MEDS: FOLIC ACID 1 MG TABLET. PO SCH (13:34)
--- NOTE | 2019-09-26 13:50 | PDOC ---
G I PROGRESS NOTE Subjective Seen in dialysis. Denies abd pain, N, V. Wonders when can go home. Physical Exam Lungs clear. RRR Abdomen soft, not tender nor distended. Review of Relevant I have reviewed the following items tamika (where applicable) has been applied. Labs Laboratory Tests Test 09/25/19 04:43 09/25/19 04:45 09/26/19 07:05 Sodium Level 137 mmol/L (136-145) 136 mmol/L (136-145) Potassium Level 3.8 mmol/L (3.5-5.1) 4.1 mmol/L (3.5-5.1) Chloride Level 98 mmol/L (98-107) 98 mmol/L (98-107) Carbon Dioxide Level 31 mmol/L (21-32) 28 mmol/L (21-32) Anion Gap 8 (6-14) 10 (6-14) Blood Urea Nitrogen 18 mg/dL (7-20) 26 mg/dL (7-20) Creatinine 4.3 mg/dL (0.6-1.0) 6.1 mg/dL (0.6-1.0) Estimated GFR (Cockcroft-Gault) 12.5 8.4 BUN/Creatinine Ratio 4 (6-20) Glucose Level 108 mg/dL (70-99) 165 mg/dL (70-99) Calcium Level 9.1 mg/dL (8.5-10.1) 8.8 mg/dL (8.5-10.1) Total Bilirubin 0.5 mg/dL (0.2-1.0) Aspartate Amino Transf (AST/SGOT) 31 U/L (15-37) Alanine Aminotransferase (ALT/SGPT) 13 U/L (14-59) Alkaline Phosphatase 130 U/L (46-116) Total Protein 8.2 g/dL (6.4-8.2) Albumin 3.1 g/dL (3.4-5.0) 3.1 g/dL (3.4-5.0) Albumin/Globulin Ratio 0.6 (1.0-1.7) White Blood Count 2.4 x10^3/uL (4.0-11.0) 2.7 x10^3/uL (4.0-11.0) Red Blood Count 2.14 x10^6/uL (3.50-5.40) 2.22 x10^6/uL (3.50-5.40) Hemoglobin 6.7 g/dL (12.0-15.5) 6.9 g/dL (12.0-15.5) Hematocrit 20.5 % (36.0-47.0) 21.2 % (36.0-47.0) Mean Corpuscular Volume 96 fL (79-100) 95 fL (79-100) Mean Corpuscular Hemoglobin 31 pg (25-35) 31 pg (25-35) Mean Corpuscular Hemoglobin Concent 33 g/dL (31-37) 32 g/dL (31-37) Red Cell Distribution Width 19.8 % (11.5-14.5) 19.6 % (11.5-14.5) Platelet Count 128 x10^3/uL (140-400) 127 x10^3/uL (140-400) Neutrophils (%) (Auto) 58 % (31-73) 63 % (31-73) Lymphocytes (%) (Auto) 22 % (24-48) 21 % (24-48) Monocytes (%) (Auto) 15 % (0-9) 11 % (0-9) Eosinophils (%) (Auto) 4 % (0-3) 3 % (0-3) Basophils (%) (Auto) 1 % (0-3) 2 % (0-3) Neutrophils # (Auto) 1.4 x10^3/uL (1.8-7.7) 1.7 x10^3/uL (1.8-7.7) Lymphocytes # (Auto) 0.5 x10^3/uL (1.0-4.8) 0.6 x10^3/uL (1.0-4.8) Monocytes # (Auto) 0.4 x10^3/uL (0.0-1.1) 0.3 x10^3/uL (0.0-1.1) Eosinophils # (Auto) 0.1 x10^3/uL (0.0-0.7) 0.1 x10^3/uL (0.0-0.7) Basophils # (Auto) 0.0 x10^3/uL (0.0-0.2) 0.1 x10^3/uL (0.0-0.2) Phosphorus Level 3.6 mg/dL (2.6-4.7) Laboratory Tests Test 09/26/19 07:05 White Blood Count 2.7 x10^3/uL (4.0-11.0) Red Blood Count 2.22 x10^6/uL (3.50-5.40) Hemoglobin 6.9 g/dL (12.0-15.5) Hematocrit 21.2 % (36.0-47.0) Mean Corpuscular Volume 95 fL (79-100) Mean Corpuscular Hemoglobin 31 pg (25-35) Mean Corpuscular Hemoglobin Concent 32 g/dL (31-37) Red Cell Distribution Width 19.6 % (11.5-14.5) Platelet Count 127 x10^3/uL (140-400) Neutrophils (%) (Auto) 63 % (31-73) Lymphocytes (%) (Auto) 21 % (24-48) Monocytes (%) (Auto) 11 % (0-9) Eosinophils (%) (Auto) 3 % (0-3) Basophils (%) (Auto) 2 % (0-3) Neutrophils # (Auto) 1.7 x10^3/uL (1.8-7.7) Lymphocytes # (Auto) 0.6 x10^3/uL (1.0-4.8) Monocytes # (Auto) 0.3 x10^3/uL (0.0-1.1) Eosinophils # (Auto) 0.1 x10^3/uL (0.0-0.7) Basophils # (Auto) 0.1 x10^3/uL (0.0-0.2) Sodium Level 136 mmol/L (136-145) Potassium Level 4.1 mmol/L (3.5-5.1) Chloride Level 98 mmol/L (98-107) Carbon Dioxide Level 28 mmol/L (21-32) Anion Gap 10 (6-14) Blood Urea Nitrogen 26 mg/dL (7-20) Creatinine 6.1 mg/dL (0.6-1.0) Estimated GFR (Cockcroft-Gault) 8.4 Glucose Level 165 mg/dL (70-99) Calcium Level 8.8 mg/dL (8.5-10.1) Phosphorus Level 3.6 mg/dL (2.6-4.7) Albumin 3.1 g/dL (3.4-5.0) Microbiology 09/23/19 Urine Culture - Final, Complete 09/23/19 Urine Culture Result 1 (SANJUANITA) - Final, Complete Vitals/I & O Vital Sign - Last 24 Hours 09/25/19 09/25/19 09/25/19 09/25/19 15:15 15:15 16:15 16:32 Temp 98.8 98.8 Pulse 91 91 Resp 18 B/P (MAP) 147/64 (91) 147/64 Pulse Ox 96 O2 Delivery Room Air Room Air Room Air 09/25/19 09/25/19 09/25/19 09/25/19 19:10 20:00 20:28 23:29 Temp 98.2 98.7 98.2 98.7 Pulse 72 70 Resp 20 18 B/P (MAP) 154/66 (95) 151/72 (98) Pulse Ox 93 93 92 O2 Delivery Room Air Room Air Room Air 09/26/19 09/26/19 09/26/19 09/26/19 03:37 05:08 07:00 08:00 Temp 98.7 98.0 98.7 98.0 Pulse 71 67 Resp 20 14 B/P (MAP) 138/74 (95) 150/53 (85) Pulse Ox 99 94 O2 Delivery Room Air Room Air Nasal Cannula Room Air O2 Flow Rate 2.0 09/26/19 09/26/19 09/26/19 09/26/19 09:01 11:00 11:39 12:00 Temp 99.3 98.0 98.0 99.3 98.0 98.0 Pulse 69 64 65 Resp 18 20 20 B/P (MAP) 163/57 (92) 169/71 154/69 Pulse Ox 94 96 O2 Delivery Room Air O2 Flow Rate 2.0 09/26/19 09/26/19 09/26/19 13:33 13:35 13:41 Pulse 65 B/P (MAP) 154/69 Pulse Ox 94 96 O2 Delivery Room Air Room Air O2 Flow Rate 2.0 2.0 Intake and Output 09/25/19 09/25/19 09/26/19 15:00 23:00 07:00 Intake Total 600 ml 400 ml 300 ml Balance 600 ml 400 ml 300 ml Problem List Problems Medical Problems: (1) Accelerated hypertension Status: Acute (2) Acute pancreatitis Status: Acute (3) Anemia Status: Chronic (4) Missed dialysis Status: Acute Assessment Pancreatitis? Maybe, but better regardless. , seems stable on PPI. H/o HCV/cirrhosis on imaging. Plan of Care: Continue current Tx, Mgmt Plan of Care Note Po PPI. Home at your discretion. Would appreciate f/u with me w/in the month after discharge. HAYDER MARLOW MD Sep 26, 2019 13:50
[2019-09-26] MEDS: PANTOPRAZOLE 40 MG TABLET.DR. PO SCH (17:31)
[2019-09-26] MEDS: traZODone 50 MG TABLET. PO SCH (20:18)
[2019-09-27 03:30] VITALS: BP 153/67
[2019-09-27 05:27] LABS: BASO % 1 % (0-3); EOS # 0.1 x10^3/uL (0.0-0.7); EOS % 4 % (0-3); HEMOGLOBIN 7.9 g/dL (12.0-15.5); LYMPH # 0.6 x10^3/uL (1.0-4.8); LYMPH % 21 % (24-48); MEAN CORPUSCULAR HEMOGLOBIN 31 pg (25-35); MEAN CORPUSCULAR HGB CONC 33 g/dL (31-37); MEAN CORPUSCULAR VOLUME 94 fL (79-100); MONO # 0.3 x10^3/uL (0.0-1.1); MONO % 13 % (0-9); NEUT # 1.6 x10^3/uL (1.8-7.7); NEUT % 61 % (31-73); PLATELET COUNT 107 x10^3/uL (140-400); RED BLOOD COUNT 2.55 x10^6/uL (3.50-5.40); RED CELL DISTRIBUTION WIDTH 19.8 % (11.5-14.5); WHITE BLOOD COUNT 2.7 x10^3/uL (4.0-11.0)
[2019-09-27 05:41] LABS: ALBUMIN/GLOBULIN RATIO 0.6 (1.0-1.7); CALCIUM 9.1 mg/dL (8.5-10.1); CREATININE 4.1 mg/dL (0.6-1.0); GFR 13.2; POTASSIUM 4.1 mmol/L (3.5-5.1); TOTAL BILIRUBIN 0.5 mg/dL (0.2-1.0); TOTAL PROTEIN 8.1 g/dL (6.4-8.2)
[2019-09-27] MEDS ORDERED: ONDANSETRON PF 4 MG/2 ML VIAL. IVP PRN (06:15)
[2019-09-27] MEDS: fentaNYL PF VIAL 100 MCG/2 ML VIAL IVP PRN ×2 (06:17→15:42)
[2019-09-27 07:00] VITALS: BP 136/46
[2019-09-27] MEDS: LACTOBACILLUS RHAMNOSUS GG 1 CAPSULE. PO SCH (07:58)
[2019-09-27] MEDS: FOLIC/VIT B COMP W-C (RENAL) TABLET. PO SCH (07:59)
[2019-09-27] MEDS: FOLIC ACID 1 MG TABLET. PO SCH (07:59)
[2019-09-27] MEDS: CALCIUM ACETATE 667 MG CAPSULE PO SCH ×2 (07:59→12:09)
[2019-09-27] MEDS: PANTOPRAZOLE 40 MG TABLET.DR. PO SCH (07:59)
[2019-09-27] MEDS: CARVEDILOL 12.5 MG TABLET. PO SCH (08:03)
--- NOTE | 2019-09-27 08:35 | PDOC ---
PROGRESS NOTES History of Present Illness History of Present Illness VTE Prophylaxis Ordered VTE Prophylaxis Devices: Contraindicated VTE Pharmacological Prophylaxi: Contraindicated DISCHARGE DX Assessment/Plan Impression: Acute pancreatitis ON CT ABD inflammatory changes surrounding the pancreas favored represent edematous pancreatitis. No discrete peripancreatic fluid collection is identified. Moderate amount of free fluid within the abdomen, may be reactive to the prior process. Question micronodular contour the liver. Correlate with LFTs this may relate to underlying cirrhosis. fracture deformity involving the right pubic ramus. NAUSEA., INTRACTABLE RESOLVED 09/27 ESRD ON DIALYSIS Missed dialysis 09/21 Accelerated hypertension Anemia R SHOULDER PAIN CXR consistent with mild to moderate CHF.POA INTRACTABLE PAIN PRE-PYLORIC ULCER ugi -swallow No fluoroscopic evidence for a perforated or penetrating gastric ulcer.Diminished luminal caliber at the distal antrum/pylorus raising the question of edematous/heaped up mucosa in this region but without a ssociated stenosis as contrast passed normally into the duodenum. WORSENING ANEMIA, TRANSFUSION 09/26 ADMITTED NEPHROLOGY CONSULT GI CONSULT DVT PROPHYLAXIIS BP CONTROL DIALYSIS [facility] GI REST ORTHO CONSULT UGI w/o GOO or evidence for perf/penetration of ulcer IV PAIN CONTROL TRANSFUSE 09/26 1 UNIT PR[facility]'S 35 MIN PT EXAM, CHART REVIEW D/C PLANNING TIME , > 50% OF TIME SPENT WITH EXAM, CHART REVIEW, PT CARE COORDINATION Vitals Vitals Vital Signs Date Time Temp Pulse Resp B/P (MAP) Pulse Ox O2 Delivery O2 Flow Rate FiO2 09/27/19 08:03 60 136/46 09/27/19 06:47 16 Nasal Cannula 09/27/19 06:17 95 09/27/19 03:30 97.5 97.5 09/26/19 21:37 2.0 Physical Exam General: Alert, Oriented X3, Cooperative, No acute distress, mild distress Heart: Regular rate, Normal S1 Lungs: Clear Abdomen: Normal bowel sounds, Soft Extremities: Normal pulses Skin: No breakdown Labs LABS Laboratory Tests Test 09/27/19 04:45 White Blood Count 2.7 x10^3/uL (4.0-11.0) Red Blood Count 2.55 x10^6/uL (3.50-5.40) Hemoglobin 7.9 g/dL (12.0-15.5) Hematocrit 24.0 % (36.0-47.0) Mean Corpuscular Volume 94 fL (79-100) Mean Corpuscular Hemoglobin 31 pg (25-35) Mean Corpuscular Hemoglobin Concent 33 g/dL (31-37) Red Cell Distribution Width 19.8 % (11.5-14.5) Platelet Count 107 x10^3/uL (140-400) Neutrophils (%) (Auto) 61 % (31-73) Lymphocytes (%) (Auto) 21 % (24-48) Monocytes (%) (Auto) 13 % (0-9) Eosinophils (%) (Auto) 4 % (0-3) Basophils (%) (Auto) 1 % (0-3) Neutrophils # (Auto) 1.6 x10^3/uL (1.8-7.7) Lymphocytes # (Auto) 0.6 x10^3/uL (1.0-4.8) Monocytes # (Auto) 0.3 x10^3/uL (0.0-1.1) Eosinophils # (Auto) 0.1 x10^3/uL (0.0-0.7) Basophils # (Auto) 0.0 x10^3/uL (0.0-0.2) Sodium Level 136 mmol/L (136-145) Potassium Level 4.1 mmol/L (3.5-5.1) Chloride Level 100 mmol/L (98-107) Carbon Dioxide Level 28 mmol/L (21-32) Anion Gap 8 (6-14) Blood Urea Nitrogen 15 mg/dL (7-20) Creatinine 4.1 mg/dL (0.6-1.0) Estimated GFR (Cockcroft-Gault) 13.2 BUN/Creatinine Ratio 4 (6-20) Glucose Level 127 mg/dL (70-99) Calcium Level 9.1 mg/dL (8.5-10.1) Total Bilirubin 0.5 mg/dL (0.2-1.0) Aspartate Amino Transf (AST/SGOT) 33 U/L (15-37) Alanine Aminotransferase (ALT/SGPT) 14 U/L (14-59) Alkaline Phosphatase 136 U/L (46-116) Total Protein 8.1 g/dL (6.4-8.2) Albumin 3.0 g/dL (3.4-5.0) Albumin/Globulin Ratio 0.6 (1.0-1.7) Assessment and Plan Assessmemt and Plan Problems Medical Problems: (1) Accelerated hypertension Status: Acute (2) Acute pancreatitis Status: Acute (3) Anemia Status: Chronic (4) Missed dialysis Status: Acute Comment Review of Relevant I have reviewed the following items tamika (where applicable) has been applied. Labs Laboratory Tests Test 09/26/19 07:05 09/27/19 04:45 White Blood Count 2.7 x10^3/uL (4.0-11.0) 2.7 x10^3/uL (4.0-11.0) Red Blood Count 2.22 x10^6/uL (3.50-5.40) 2.55 x10^6/uL (3.50-5.40) Hemoglobin 6.9 g/dL (12.0-15.5) 7.9 g/dL (12.0-15.5) Hematocrit 21.2 % (36.0-47.0) 24.0 % (36.0-47.0) Mean Corpuscular Volume 95 fL (79-100) 94 fL (79-100) Mean Corpuscular Hemoglobin 31 pg (25-35) 31 pg (25-35) Mean Corpuscular Hemoglobin Concent 32 g/dL (31-37) 33 g/dL (31-37) Red Cell Distribution Width 19.6 % (11.5-14.5) 19.8 % (11.5-14.5) Platelet Count 127 x10^3/uL (140-400) 107 x10^3/uL (140-400) Neutrophils (%) (Auto) 63 % (31-73) 61 % (31-73) Lymphocytes (%) (Auto) 21 % (24-48) 21 % (24-48) Monocytes (%) (Auto) 11 % (0-9) 13 % (0-9) Eosinophils (%) (Auto) 3 % (0-3) 4 % (0-3) Basophils (%) (Auto) 2 % (0-3) 1 % (0-3) Neutrophils # (Auto) 1.7 x10^3/uL (1.8-7.7) 1.6 x10^3/uL (1.8-7.7) Lymphocytes # (Auto) 0.6 x10^3/uL (1.0-4.8) 0.6 x10^3/uL (1.0-4.8) Monocytes # (Auto) 0.3 x10^3/uL (0.0-1.1) 0.3 x10^3/uL (0.0-1.1) Eosinophils # (Auto) 0.1 x10^3/uL (0.0-0.7) 0.1 x10^3/uL (0.0-0.7) Basophils # (Auto) 0.1 x10^3/uL (0.0-0.2) 0.0 x10^3/uL (0.0-0.2) Sodium Level 136 mmol/L (136-145) 136 mmol/L (136-145) Potassium Level 4.1 mmol/L (3.5-5.1) 4.1 mmol/L (3.5-5.1) Chloride Level 98 mmol/L (98-107) 100 mmol/L (98-107) Carbon Dioxide Level 28 mmol/L (21-32) 28 mmol/L (21-32) Anion Gap 10 (6-14) 8 (6-14) Blood Urea Nitrogen 26 mg/dL (7-20) 15 mg/dL (7-20) Creatinine 6.1 mg/dL (0.6-1.0) 4.1 mg/dL (0.6-1.0) Estimated GFR (Cockcroft-Gault) 8.4 13.2 Glucose Level 165 mg/dL (70-99) 127 mg/dL (70-99) Calcium Level 8.8 mg/dL (8.5-10.1) 9.1 mg/dL (8.5-10.1) Phosphorus Level 3.6 mg/dL (2.6-4.7) Albumin 3.1 g/dL (3.4-5.0) 3.0 g/dL (3.4-5.0) BUN/Creatinine Ratio 4 (6-20) Total Bilirubin 0.5 mg/dL (0.2-1.0) Aspartate Amino Transf (AST/SGOT) 33 U/L (15-37) Alanine Aminotransferase (ALT/SGPT) 14 U/L (14-59) Alkaline Phosphatase 136 U/L (46-116) Total Protein 8.1 g/dL (6.4-8.2) Albumin/Globulin Ratio 0.6 (1.0-1.7) Laboratory Tests Test 09/27/19 04:45 White Blood Count 2.7 x10^3/uL (4.0-11.0) Red Blood Count 2.55 x10^6/uL (3.50-5.40) Hemoglobin 7.9 g/dL (12.0-15.5) Hematocrit 24.0 % (36.0-47.0) Mean Corpuscular Volume 94 fL (79-100) Mean Corpuscular Hemoglobin 31 pg (25-35) Mean Corpuscular Hemoglobin Concent 33 g/dL (31-37) Red Cell Distribution Width 19.8 % (11.5-14.5) Platelet Count 107 x10^3/uL (140-400) Neutrophils (%) (Auto) 61 % (31-73) Lymphocytes (%) (Auto) 21 % (24-48) Monocytes (%) (Auto) 13 % (0-9) Eosinophils (%) (Auto) 4 % (0-3) Basophils (%) (Auto) 1 % (0-3) Neutrophils # (Auto) 1.6 x10^3/uL (1.8-7.7) Lymphocytes # (Auto) 0.6 x10^3/uL (1.0-4.8) Monocytes # (Auto) 0.3 x10^3/uL (0.0-1.1) Eosinophils # (Auto) 0.1 x10^3/uL (0.0-0.7) Basophils # (Auto) 0.0 x10^3/uL (0.0-0.2) Sodium Level 136 mmol/L (136-145) Potassium Level 4.1 mmol/L (3.5-5.1) Chloride Level 100 mmol/L (98-107) Carbon Dioxide Level 28 mmol/L (21-32) Anion Gap 8 (6-14) Blood Urea Nitrogen 15 mg/dL (7-20) Creatinine 4.1 mg/dL (0.6-1.0) Estimated GFR (Cockcroft-Gault) 13.2 BUN/Creatinine Ratio 4 (6-20) Glucose Level 127 mg/dL (70-99) Calcium Level 9.1 mg/dL (8.5-10.1) Total Bilirubin 0.5 mg/dL (0.2-1.0) Aspartate Amino Transf (AST/SGOT) 33 U/L (15-37) Alanine Aminotransferase (ALT/SGPT) 14 U/L (14-59) Alkaline Phosphatase 136 U/L (46-116) Total Protein 8.1 g/dL (6.4-8.2) Albumin 3.0 g/dL (3.4-5.0) Albumin/Globulin Ratio 0.6 (1.0-1.7) Microbiology 09/23/19 Urine Culture - Final, Complete 09/23/19 Urine Culture Result 1 (SANJUANITA) - Final, Complete Medications Current Medications Ondansetron HCl (Zofran) 4 mg 1X ONCE IV Last administered on 09/21/19at 17:04; Start 09/21/19 at 17:00; Stop 09/21/19 at 17:01; Status DC Fentanyl Citrate (Fentanyl 2ml Vial) 50 mcg 1X ONCE IV Last administered on 09/21/19at 17:04; Start 09/21/19 at 17:00; Stop 09/21/19 at 17:01; Status DC Fentanyl Citrate (Fentanyl 2ml Vial) 50 mcg 1X STAT IV Last administered on 09/21/19at 19:02; Start 09/21/19 at 18:33; Stop 09/21/19 at 18:36; Status DC Labetalol HCl (Normodyne Iv Push) 20 mg 1X STAT IVP Last administered on 09/21/19at 19:12; Start 09/21/19 at 18:51; Stop 09/21/19 at 18:52; Status DC Ondansetron HCl (Zofran) 4 mg PRN Q8HRS PRN IV NAUSEA/VOMITING Last administered on 09/22/19at 04:57; Start 09/21/19 at 19:00; Stop 09/22/19 at 18:59; Status DC Fentanyl Citrate (Fentanyl 2ml Vial) 50 mcg PRN Q1HR PRN IV PAIN Last administered on 09/22/19at 17:42; Start 09/21/19 at 19:00; Stop 09/22/19 at 18:59; Status DC Folic Acid (Folic Acid) 1 mg DAILY PO Last administered on 09/27/19 07:59; Start 09/22/19 at 09:00 Vitamin B Complex/ Vitamin C (Yara-Edward) 1 tab DAILY PO Last administered on 09/27/19 07:59; Start 09/22/19 at 09:00 Lactobacillus Rhamnosus (Culturelle) 1 cap BID PO Last administered on 09/27/19 07:58; Start 09/22/19 at 09:00 Pantoprazole Sodium (Protonix) 40 mg DAILYAC PO ; Start 09/22/19 at 07:30; Stop 09/22/19 at 10:40; Status DC Polyethylene Glycol (miraLAX PACKET) 17 gm PRN DAILY PRN PO CONSTIPATION 1ST CHOICE Last administered on 09/26/19 03:41; Start 09/21/19 at 21:15 Carvedilol (Coreg) 25 mg BIDWMEALS PO Last administered on 09/27/19 08:03; Start 09/22/19 at 08:00 Calcium Acetate (Phoslo) 667 mg TIDWMEALS PO Last administered on 09/27/19 07:59; Start 09/22/19 at 08:00 Pantoprazole Sodium (PROTONIX VIAL for IV PUSH) 40 mg DAILYAC IVP Last administered on 09/26/19at 13:32; Start 09/22/19 at 11:30; Stop 09/26/19 at 13:51; Status DC Darbepoetin Bol[place]ar (ARANESP for DIALYSIS PTS) 60 mcg WEEKLYHS SQ Last administered on 09/22/19at 18:08; Start 09/22/19 at 21:00 Barium Sulfate (Liquid E-Z Paque) 355 ml 1X ONCE PO Last administered on 09/22/19at 13:00; Start 09/22/19 at 13:00; Stop 09/22/19 at 13:01; Status DC Sodium Chloride 1,000 ml @ 1,000 mls/hr Q1H PRN IV hypotension; Start 09/22/19 at 14:10; Stop 09/22/19 at 20:09; Status DC Albumin Human 200 ml @ 200 mls/hr 1X PRN PRN IV Hypotension; Start 09/22/19 at 14:15 Sodium Chloride 1,000 ml @ 400 mls/hr Q2H30M PRN IV PATENCY; Start 09/22/19 at 14:10; Stop 09/23/19 at 02:09; Status DC Info (PHARMACY MONITORING -- do not chart) 1 each PRN DAILY PRN MC SEE COMMENTS; Start 09/22/19 at 14:15; Status UNV Info (PHARMACY MONITORING -- do not chart) 1 each PRN DAILY PRN MC SEE COMMENTS; Start 09/22/19 at 14:15 Fentanyl Citrate (Fentanyl 2ml Vial) 50 mcg PRN Q1HR PRN IVP SEVERE PAIN 7-10 Last administered on 09/23/19at 11:32; Start 09/22/19 at 21:00; Stop 09/23/19 at 14:29; Status DC Hydralazine HCl (Apresoline Inj) 10 mg 1X ONCE IVP Last administered on 09/23/19at 05:00; Start 09/23/19 at 05:00; Stop 09/23/19 at 05:01; Status DC Methylprednisolone Acetate (DEPO-Medrol 80MG VIAL) 80 mg 1X ONCE INT ART ; Start 09/23/19 at 08:00; Stop 09/23/19 at 08:09; Status DC Lidocaine HCl (Xylocaine-Mpf 1% 5ml Vial) 5 ml 1X ONCE INJ ; Start 09/23/19 at 08:00; Stop 09/23/19 at 08:09; Status DC Sodium Chloride 1,000 ml @ 1,000 mls/hr Q1H PRN IV hypotension; Start 09/23/19 at 07:00; Stop 09/23/19 at 12:59; Status DC Sodium Chloride 1,000 ml @ 400 mls/hr Q2H30M PRN IV PATENCY; Start 09/23/19 at 07:00; Stop 09/23/19 at 18:59; Status DC Info (PHARMACY MONITORING -- do not chart) 1 each PRN DAILY PRN MC SEE COMMENTS; Start 09/23/19 at 10:30; Status UNV Info (PHARMACY MONITORING -- do not chart) 1 each PRN DAILY PRN MC SEE COMMENTS; Start 09/23/19 at 10:30; Status UNV Fentanyl Citrate (Fentanyl 2ml Vial) 75 mcg PRN Q3HRS PRN IVP PAIN Last admini stered on 09/27/19at 06:17; Start 09/23/19 at 14:30 Hydralazine HCl (Apresoline Inj) 10 mg PRN Q4HRS PRN IVP ELEVATED BP, SEE C OMMENTS; Start 09/23/19 at 14:30 Trazodone HCl (Desyrel) 150 mg QHS PO Last administered on 09/26/19at 20:18; Start 09/25/19 at 21:00 Albuterol Sulfate (Ventolin Neb Soln) 2.5 mg PRN Q2HRS PRN NEB SOB / WHILE AWAKE; Start 09/25/19 at 01:00 Trazodone HCl (Desyrel) 150 mg 1X PRN PO HICCUPS Last administered on 09/25/19at 02:52; Start 09/25/19 at 02:45 Acetaminophen/ Hydrocodone Bitart (Lortab 7.5/325) 1 tab PRN Q6HRS PRN PO MODERATE PAIN Last administered on 09/26/19at 20:18; Start 09/25/19 at 14:00 Sodium Chloride 1,000 ml @ 1,000 mls/hr Q1H PRN IV hypotension; Start 09/26/19 at 09:24; Stop 09/26/19 at 15:23; Status DC Albumin Human 200 ml @ 200 mls/hr 1X PRN PRN IV Hypotension; Start 09/26/19 at 09:30; Stop 09/26/19 at 15:29; Status DC Sodium Chloride 1,000 ml @ 400 mls/hr Q2H30M PRN IV PATENCY; Start 09/26/19 at 09:24; Stop 09/26/19 at 21:23; Status DC Info (PHARMACY MONITORING -- do not chart) 1 each PRN DAILY PRN MC SEE COMMENTS; Start 09/26/19 at 09:30 Pantoprazole Sodium (Protonix) 40 mg BIDAC PO Last administered on 09/27/19at 07:59; Start 09/26/19 at 16:30 Ondansetron HCl (Zofran) 4 mg PRN Q4HRS PRN IVP NAUSEA/VOMITING Last administered on 09/27/19at 06:17; Start 09/27/19 at 06:15 Active Scripts Active Pantoprazole Sodium (Pantoprazole Sodium) 40 Mg Tablet.dr 40 Mg PO DAILYAC 30 Days Culturelle (Lactobacillus Rhamnosus Gg) 1 Each Cap.sprink 1 Cap PO BID 14 Days Reported Nephro-Edward Tablet (Folic Acid/Vitamin B Comp W-C) 0.8 Mg Tablet 1 Tab PO DAILY Calcium Acetate 667 Mg Tablet 667 Mg PO TIDWMEALS Carvedilol 25 Mg Tablet 25 Mg PO BID Folic Acid 1 Mg Tablet 1 Mg PO DAILY Miralax (Polyethylene Glycol 3350) 17 Gm Powd.pack 1 Packet PO PRN DAILY PRN Vitals/I & O Vital Sign - Last 24 Hours 09/26/19 09/26/19 09/26/19 09/26/19 09:01 11:00 11:39 12:00 Temp 99.3 98.0 98.0 99.3 98.0 98.0 Pulse 69 64 65 Resp 18 20 20 B/P (MAP) 163/57 (92) 169/71 154/69 Pulse Ox 94 96 O2 Delivery Room Air O2 Flow Rate 2.0 09/26/19 09/26/19 09/26/19 09/26/19 13:33 13:35 13:41 15:00 Temp 98.0 98.0 Pulse 65 66 Resp 16 B/P (MAP) 154/69 146/67 (93) Pulse Ox 94 96 95 O2 Delivery Room Air Room Air Room Air O2 Flow Rate 2.0 2.0 09/26/19 09/26/19 09/26/19 09/26/19 17:31 17:31 19:05 20:00 Temp 98.4 98.4 Pulse 66 63 Resp 18 B/P (MAP) 146/67 147/45 (79) Pulse Ox 95 99 O2 Delivery Room Air Room Air Room Air O2 Flow Rate 2.0 09/26/19 09/26/19 09/26/19 09/27/19 20:18 21:37 23:15 03:30 Temp 98.4 97.5 98.4 97.5 Pulse 63 66 Resp 18 16 18 18 B/P (MAP) 143/53 (83) 153/67 (95) Pulse Ox 95 95 94 95 O2 Delivery Room Air Nasal Cannula Room Air Room Air O2 Flow Rate 2.0 2.0 09/27/19 09/27/19 09/27/19 06:17 06:47 08:03 Pulse 60 Resp 18 16 B/P (MAP) 136/46 Pulse Ox 95 O2 Delivery Room Air Nasal Cannula Intake and Output 09/26/19 09/26/19 09/27/19 15:00 23:00 07:00 Intake Total 50 ml 100 ml 150 ml Balance 50 ml 100 ml 150 ml ASHIA MOSS MD Sep 27, 2019 08:34
[2019-09-27 11:00] VITALS: BP 135/54
[2019-09-27] MEDS ORDERED: MAGNESIUM SULFATE 2GM 50 ML IV PRN (12:15)
--- NOTE | 2019-09-27 14:07 | PDOC ---
G I PROGRESS NOTE Subjective No GI complaints. Eating and stooling per her. Would love to go home. Physical Exam Lungs clear. RRR Abdomen soft, not tender nor distended. Review of Relevant I have reviewed the following items tamika (where applicable) has been applied. Labs Laboratory Tests Test 09/26/19 07:05 09/27/19 04:45 White Blood Count 2.7 x10^3/uL (4.0-11.0) 2.7 x10^3/uL (4.0-11.0) Red Blood Count 2.22 x10^6/uL (3.50-5.40) 2.55 x10^6/uL (3.50-5.40) Hemoglobin 6.9 g/dL (12.0-15.5) 7.9 g/dL (12.0-15.5) Hematocrit 21.2 % (36.0-47.0) 24.0 % (36.0-47.0) Mean Corpuscular Volume 95 fL (79-100) 94 fL (79-100) Mean Corpuscular Hemoglobin 31 pg (25-35) 31 pg (25-35) Mean Corpuscular Hemoglobin Concent 32 g/dL (31-37) 33 g/dL (31-37) Red Cell Distribution Width 19.6 % (11.5-14.5) 19.8 % (11.5-14.5) Platelet Count 127 x10^3/uL (140-400) 107 x10^3/uL (140-400) Neutrophils (%) (Auto) 63 % (31-73) 61 % (31-73) Lymphocytes (%) (Auto) 21 % (24-48) 21 % (24-48) Monocytes (%) (Auto) 11 % (0-9) 13 % (0-9) Eosinophils (%) (Auto) 3 % (0-3) 4 % (0-3) Basophils (%) (Auto) 2 % (0-3) 1 % (0-3) Neutrophils # (Auto) 1.7 x10^3/uL (1.8-7.7) 1.6 x10^3/uL (1.8-7.7) Lymphocytes # (Auto) 0.6 x10^3/uL (1.0-4.8) 0.6 x10^3/uL (1.0-4.8) Monocytes # (Auto) 0.3 x10^3/uL (0.0-1.1) 0.3 x10^3/uL (0.0-1.1) Eosinophils # (Auto) 0.1 x10^3/uL (0.0-0.7) 0.1 x10^3/uL (0.0-0.7) Basophils # (Auto) 0.1 x10^3/uL (0.0-0.2) 0.0 x10^3/uL (0.0-0.2) Sodium Level 136 mmol/L (136-145) 136 mmol/L (136-145) Potassium Level 4.1 mmol/L (3.5-5.1) 4.1 mmol/L (3.5-5.1) Chloride Level 98 mmol/L (98-107) 100 mmol/L (98-107) Carbon Dioxide Level 28 mmol/L (21-32) 28 mmol/L (21-32) Anion Gap 10 (6-14) 8 (6-14) Blood Urea Nitrogen 26 mg/dL (7-20) 15 mg/dL (7-20) Creatinine 6.1 mg/dL (0.6-1.0) 4.1 mg/dL (0.6-1.0) Estimated GFR (Cockcroft-Gault) 8.4 13.2 Glucose Level 165 mg/dL (70-99) 127 mg/dL (70-99) Calcium Level 8.8 mg/dL (8.5-10.1) 9.1 mg/dL (8.5-10.1) Phosphorus Level 3.6 mg/dL (2.6-4.7) Albumin 3.1 g/dL (3.4-5.0) 3.0 g/dL (3.4-5.0) BUN/Creatinine Ratio 4 (6-20) Total Bilirubin 0.5 mg/dL (0.2-1.0) Aspartate Amino Transf (AST/SGOT) 33 U/L (15-37) Alanine Aminotransferase (ALT/SGPT) 14 U/L (14-59) Alkaline Phosphatase 136 U/L (46-116) Total Protein 8.1 g/dL (6.4-8.2) Albumin/Globulin Ratio 0.6 (1.0-1.7) Laboratory Tests Test 09/27/19 04:45 White Blood Count 2.7 x10^3/uL (4.0-11.0) Red Blood Count 2.55 x10^6/uL (3.50-5.40) Hemoglobin 7.9 g/dL (12.0-15.5) Hematocrit 24.0 % (36.0-47.0) Mean Corpuscular Volume 94 fL (79-100) Mean Corpuscular Hemoglobin 31 pg (25-35) Mean Corpuscular Hemoglobin Concent 33 g/dL (31-37) Red Cell Distribution Width 19.8 % (11.5-14.5) Platelet Count 107 x10^3/uL (140-400) Neutrophils (%) (Auto) 61 % (31-73) Lymphocytes (%) (Auto) 21 % (24-48) Monocytes (%) (Auto) 13 % (0-9) Eosinophils (%) (Auto) 4 % (0-3) Basophils (%) (Auto) 1 % (0-3) Neutrophils # (Auto) 1.6 x10^3/uL (1.8-7.7) Lymphocytes # (Auto) 0.6 x10^3/uL (1.0-4.8) Monocytes # (Auto) 0.3 x10^3/uL (0.0-1.1) Eosinophils # (Auto) 0.1 x10^3/uL (0.0-0.7) Basophils # (Auto) 0.0 x10^3/uL (0.0-0.2) Sodium Level 136 mmol/L (136-145) Potassium Level 4.1 mmol/L (3.5-5.1) Chloride Level 100 mmol/L (98-107) Carbon Dioxide Level 28 mmol/L (21-32) Anion Gap 8 (6-14) Blood Urea Nitrogen 15 mg/dL (7-20) Creatinine 4.1 mg/dL (0.6-1.0) Estimated GFR (Cockcroft-Gault) 13.2 BUN/Creatinine Ratio 4 (6-20) Glucose Level 127 mg/dL (70-99) Calcium Level 9.1 mg/dL (8.5-10.1) Total Bilirubin 0.5 mg/dL (0.2-1.0) Aspartate Amino Transf (AST/SGOT) 33 U/L (15-37) Alanine Aminotransferase (ALT/SGPT) 14 U/L (14-59) Alkaline Phosphatase 136 U/L (46-116) Total Protein 8.1 g/dL (6.4-8.2) Albumin 3.0 g/dL (3.4-5.0) Albumin/Globulin Ratio 0.6 (1.0-1.7) Microbiology 09/23/19 Urine Culture - Final, Complete 09/23/19 Urine Culture Result 1 (SANJUANITA) - Final, Complete Vitals/I & O Vital Sign - Last 24 Hours 09/26/19 09/26/19 09/26/19 09/26/19 15:00 17:31 17:31 19:05 Temp 98.0 98.4 98.0 98.4 Pulse 66 66 63 Resp 16 18 B/P (MAP) 146/67 (93) 146/67 147/45 (79) Pulse Ox 95 95 99 O2 Delivery Room Air Room Air Room Air O2 Flow Rate 2.0 09/26/19 09/26/19 09/26/19 09/26/19 20:00 20:18 21:37 23:15 Temp 98.4 98.4 Pulse 63 Resp 18 16 18 B/P (MAP) 143/53 (83) Pulse Ox 95 95 94 O2 Delivery Room Air Room Air Nasal Cannula Room Air O2 Flow Rate 2.0 2.0 09/27/19 09/27/19 09/27/19 09/27/19 03:30 06:17 06:47 07:00 Temp 97.5 97.9 97.5 97.9 Pulse 66 59 Resp 18 18 16 16 B/P (MAP) 153/67 (95) 136/46 (76) Pulse Ox 95 95 96 O2 Delivery Room Air Room Air Nasal Cannula Nasal Cannula 09/27/19 09/27/19 09/27/19 08:00 08:03 11:00 Temp 97.8 97.8 Pulse 60 65 Resp 16 B/P (MAP) 136/46 135/54 (81) Pulse Ox 96 O2 Delivery Room Air Nasal Cannula O2 Flow Rate 2.0 Intake and Output 09/26/19 09/26/19 09/27/19 15:00 23:00 07:00 Intake Total 50 ml 100 ml 150 ml Balance 50 ml 100 ml 150 ml Problem List Problems Medical Problems: (1) Accelerated hypertension Status: Acute (2) Acute pancreatitis Status: Acute (3) Anemia Status: Chronic (4) Missed dialysis Status: Acute Assessment Pancreatitis, clinically resolved. , stable on PPI. Plan of Care: Continue current Tx, Mgmt Plan of Care Note From our standpoint, could go home any time. HAYDER MARLOW MD Sep 27, 2019 14:07
[2019-09-27] MEDS: HYDROcodone/APAP 7.5/325MG 1 TAB TABLET PO PRN (14:18)
[2019-09-27 15:00] VITALS: BP 138/47
--- NOTE | 2019-09-27 15:59 | PDOC3 ---
Discharge Summary Date of Admission: Sep 21, 2019 Date of Discharge: Sep 27, 2019 Follow-Up: 1-2 days Admitting Diagnosis comment: DISCHARGE DX Assessment/Plan Impression: Acute pancreatitis ON CT ABD inflammatory changes surrounding the pancreas favored represent edematous pancreatitis. No discrete peripancreatic fluid collection is identified. Moderate amount of free fluid within the abdomen, may be reactive to the prior process. Question micronodular contour the liver. Correlate with LFTs this may relate to underlying cirrhosis. fracture deformity involving the right pubic ramus. NAUSEA., INTRACTABLE RESOLVED 09/27 ESRD ON DIALYSIS Missed dialysis 09/21 Accelerated hypertension Anemia R SHOULDER PAIN CXR consistent with mild to moderate CHF.POA INTRACTABLE PAIN PRE-PYLORIC ULCER ugi -swallow No fluoroscopic evidence for a perforated or penetrating gastric ulcer.Diminished luminal caliber at the distal antrum/pylorus raising the question of edematous/heaped up mucosa in this region but without associated stenosis as contrast passed normally into the duodenum. WORSENING ANEMIA, TRANSFUSION 09/26 ADMITTED NEPHROLOGY CONSULT GI CONSULT DVT PROPHYLAXIIS BP CONTROL DIALYSIS [facility] GI REST ORTHO CONSULT UGI w/o GOO or evidence for perf/penetration of ulcer IV PAIN CONTROL TRANSFUSE 09/26 1 UNIT PRBC'S 35 MIN PT EXAM, CHART REVIEW D/C PLANNING TIME , > 50% OF TIME SPENT WITH EXAM, CHART REVIEW, PT CARE COORDINATION Vitals Vitals Vital Signs Date Time Temp Pulse Resp B/P (MAP) Pulse Ox O2 Delivery O2 Flow Rate FiO2 09/27/19 08:03 60 136/46 09/27/19 06:47 16 Nasal Cannula 09/27/19 06:17 95 09/27/19 03:30 97.5 97.5 09/26/19 21:37 2.0 Physical Exam General: Alert, Oriented X3, Cooperative, No acute distress, NO distress Heart: Regular rate, Normal S1 Lungs: Clear Abdomen: Normal bowel sounds, Soft Extremities: Normal pulses Skin: No breakdown FINAL DIAGNOSIS Problems Medical Problems: (1) Accelerated hypertension Status: Acute (2) Acute pancreatitis Status: Acute (3) Anemia Status: Chronic (4) Missed dialysis Status: Acute Brief Hospital Course Ms. Fernandez is a 64 old [sex] who presented with [ ACUTE PANCREATITIS] CONDITION AT DISCHARGE: Improved Discharge Medications Current Medications Ondansetron HCl (Zofran) 4 mg 1X ONCE IV Last administered on 09/21/19 17:04; Start 09/21/19 at 17:00; Stop 09/21/19 at 17:01; Status DC Fentanyl Citrate (Fentanyl 2ml Vial) 50 mcg 1X ONCE IV Last administered on 09/21/19 17:04; Start 09/21/19 at 17:00; Stop 09/21/19 at 17:01; Status DC Fentanyl Citrate (Fentanyl 2ml Vial) 50 mcg 1X STAT IV Last administered on 09/21/19 19:02; Start 09/21/19 at 18:33; Stop 09/21/19 at 18:36; Status DC Labetalol HCl (Normodyne Iv Push) 20 mg 1X STAT IVP Last administered on 09/21/19 19:12; Start 09/21/19 at 18:51; Stop 09/21/19 at 18:52; Status DC Ondansetron HCl (Zofran) 4 mg PRN Q8HRS PRN IV NAUSEA/VOMITING Last administered on 09/22/19 04:57; Start 09/21/19 at 19:00; Stop 09/22/19 at 18:59; Status DC Fentanyl Citrate (Fentanyl 2ml Vial) 50 mcg PRN Q1HR PRN IV PAIN Last administered on 09/22/19 17:42; Start 09/21/19 at 19:00; Stop 09/22/19 at 18:59; Status DC Folic Acid (Folic Acid) 1 mg DAILY PO Last administered on 09/27/19 07:59; Start 09/22/19 at 09:00 Vitamin B Complex/ Vitamin C (Yara-Edward) 1 tab DAILY PO Last administered on 09/27/19 07:59; Start 09/22/19 at 09:00 Lactobacillus Rhamnosus (Culturelle) 1 cap BID PO Last administered on 09/27/19 07:58; Start 09/22/19 at 09:00 Pantoprazole Sodium (Protonix) 40 mg DAILYAC PO ; Start 09/22/19 at 07:30; Stop 09/22/19 at 10:40; Status DC Polyethylene Glycol (miraLAX PACKET) 17 gm PRN DAILY PRN PO CONSTIPATION 1ST CHOICE Last administered on 09/26/19at 03:41; Start 09/21/19 at 21:15 Carvedilol (Coreg) 25 mg BIDWMEALS PO Last administered on 09/27/19at 08:03; Start 09/22/19 at 08:00 Calcium Acetate (Phoslo) 667 mg TIDWMEALS PO Last administered on 09/27/19at 12:09; Start 09/22/19 at 08:00 Pantoprazole Sodium (PROTONIX VIAL for IV PUSH) 40 mg DAILYAC IVP Last administered on 09/26/19at 13:32; Start 09/22/19 at 11:30; Stop 09/26/19 at 13:51; Status DC Darbepoetin Bol[place]ar (ARANESP for DIALYSIS PTS) 60 mcg WEEKLYHS SQ Last administered on 09/22/19at 18:08; Start 09/22/19 at 21:00 Barium Sulfate (Liquid E-Z Paque) 355 ml 1X ONCE PO Last administered on 09/22/19at 13:00; Start 09/22/19 at 13:00; Stop 09/22/19 at 13:01; Status DC Sodium Chloride 1,000 ml @ 1,000 mls/hr Q1H PRN IV hypotension; Start 09/22/19 at 14:10; Stop 09/22/19 at 20:09; Status DC Albumin Human 200 ml @ 200 mls/hr 1X PRN PRN IV Hypotension; Start 09/22/19 at 14:15 Sodium Chloride 1,000 ml @ 400 mls/hr Q2H30M PRN IV PATENCY; Start 09/22/19 at 14:10; Stop 09/23/19 at 02:09; Status DC Info (PHARMACY MONITORING -- do not chart) 1 each PRN DAILY PRN MC SEE JYOTI TS; Start 09/22/19 at 14:15; Status UNV Info (PHARMACY MONITORING -- do not chart) 1 each PRN DAILY PRN MC SEE COMMENTS; Start 09/22/19 at 14:15; Stop 09/27/19 at 14:59; Status DC Fentanyl Citrate (Fentanyl 2ml Vial) 50 mcg PRN Q1HR PRN IVP SEVERE PAIN 7-10 Last administered on 09/23/19at 11:32; Start 09/22/19 at 21:00; Stop 09/23/19 at 14:29; Status DC Hydralazine HCl (Apresoline Inj) 10 mg 1X ONCE IVP Last administered on 09/23/19at 05:00; Start 09/23/19 at 05:00; Stop 09/23/19 at 05:01; Status DC Methylprednisolone Acetate (DEPO-Medrol 80MG VIAL) 80 mg 1X ONCE INT ART ; Start 09/23/19 at 08:00; Stop 09/23/19 at 08:09; Status DC Lidocaine HCl (Xylocaine-Mpf 1% 5ml Vial) 5 ml 1X ONCE INJ ; Start 09/23/19 at 08:00; Stop 09/23/19 at 08:09; Status DC Sodium Chloride 1,000 ml @ 1,000 mls/hr Q1H PRN IV hypotension; Start 09/23/19 at 07:00; Stop 09/23/19 at 12:59; Status DC Sodium Chloride 1,000 ml @ 400 mls/hr Q2H30M PRN IV PATENCY; Start 09/23/19 at 07:00; Stop 09/23/19 at 18:59; Status DC Info (PHARMACY MONITORING -- do not chart) 1 each PRN DAILY PRN MC SEE COMMENTS; Start 09/23/19 at 10:30; Status UNV Info (PHARMACY MONITORING -- do not chart) 1 each PRN DAILY PRN MC SEE COMMENTS; Start 09/23/19 at 10:30; Status UNV Fentanyl Citrate (Fentanyl 2ml Vial) 75 mcg PRN Q3HRS PRN IVP PAIN Last administered on 09/27/19at 15:42; Start 09/23/19 at 14:30 Hydralazine HCl (Apresoline Inj) 10 mg PRN Q4HRS PRN IVP ELEVATED BP, SEE COMMENTS; Start 09/23/19 at 14:30 Trazodone HCl (Desyrel) 150 mg QHS PO Last administered on 09/26/19at 20:18; Start 09/25/19 at 21:00 Albuterol Sulfate (Ventolin Neb Soln) 2.5 mg PRN Q2HRS PRN NEB SOB / WHILE AWAKE; Start 09/25/19 at 01:00 Trazodone HCl (Desyrel) 150 mg 1X PRN PO HICCUPS Last administered on 09/25/19at 02:52; Start 09/25/19 at 02:45 Acetaminophen/ Hydrocodone Bitart (Lortab 7.5/325) 1 tab PRN Q6HRS PRN PO MODERATE PAIN Last administered on 09/27/19at 14:18; Start 09/25/19 at 14:00 Sodium Chloride 1,000 ml @ 1,000 mls/hr Q1H PRN IV hypotension; Start 09/26/19 at 09:24; Stop 09/26/19 at 15:23; Status DC Albumin Human 200 ml @ 200 mls/hr 1X PRN PRN IV Hypotension; Start 09/26/19 at 09:30; Stop 09/26/19 at 15:29; Status DC Sodium Chloride 1,000 ml @ 400 mls/hr Q2H30M PRN IV PATENCY; Start 09/26/19 at 09:24; Stop 09/26/19 at 21:23; Status DC Info (PHARMACY MONITORING -- do not chart) 1 each PRN DAILY PRN MC SEE COMMENTS; Start 09/26/19 at 09:30 Pantoprazole Sodium (Protonix) 40 mg BIDAC PO Last administered on 09/27/19at 07:59; Start 09/26/19 at 16:30 Ondansetron HCl (Zofran) 4 mg PRN Q4HRS PRN IVP NAUSEA/VOMITING Last administered on 09/27/19at 06:17; Start 09/27/19 at 06:15 Magnesium Sulfate 50 ml @ 25 mls/hr PRN DAILY PRN IV for Mag < 1.7 on am labs; Start 09/27/19 at 12:15 Active Scripts Active Pantoprazole Sodium (Pantoprazole Sodium) 40 Mg Tablet.dr 40 Mg PO DAILYAC 30 Days Culturelle (Lactobacillus Rhamnosus Gg) 1 Each Cap.sprink 1 Cap PO BID 14 Days Reported Nephro-Edward Tablet (Folic Acid/Vitamin B Comp W-C) 0.8 Mg Tablet 1 Tab PO DAILY Calcium Acetate 667 Mg Tablet 667 Mg PO TIDWMEALS Carvedilol 25 Mg Tablet 25 Mg PO BID Folic Acid 1 Mg Tablet 1 Mg PO DAILY Miralax (Polyethylene Glycol 3350) 17 Gm Powd.pack 1 Packet PO PRN DAILY PRN Vital Signs Vital Signs Date Time Temp Pulse Resp B/P (MAP) Pulse Ox O2 Delivery O2 Flow Rate FiO2 09/27/19 15:00 98.0 65 16 138/47 (77) 97 BiPAP/CPAP 98.0 09/27/19 08:00 2.0 Labs Laboratory Tests Test 09/26/19 07:05 09/27/19 04:45 White Blood Count 2.7 x10^3/uL (4.0-11.0) 2.7 x10^3/uL (4.0-11.0) Red Blood Count 2.22 x10^6/uL (3.50-5.40) 2.55 x10^6/uL (3.50-5.40) Hemoglobin 6.9 g/dL (12.0-15.5) 7.9 g/dL (12.0-15.5) Hematocrit 21.2 % (36.0-47.0) 24.0 % (36.0-47.0) Mean Corpuscular Volume 95 fL (79-100) 94 fL (79-100) Mean Corpuscular Hemoglobin 31 pg (25-35) 31 pg (25-35) Mean Corpuscular Hemoglobin Concent 32 g/dL (31-37) 33 g/dL (31-37) Red Cell Distribution Width 19.6 % (11.5-14.5) 19.8 % (11.5-14.5) Platelet Count 127 x10^3/uL (140-400) 107 x10^3/uL (140-400) Neutrophils (%) (Auto) 63 % (31-73) 61 % (31-73) Lymphocytes (%) (Auto) 21 % (24-48) 21 % (24-48) Monocytes (%) (Auto) 11 % (0-9) 13 % (0-9) Eosinophils (%) (Auto) 3 % (0-3) 4 % (0-3) Basophils (%) (Auto) 2 % (0-3) 1 % (0-3) Neutrophils # (Auto) 1.7 x10^3/uL (1.8-7.7) 1.6 x10^3/uL (1.8-7.7) Lymphocytes # (Auto) 0.6 x10^3/uL (1.0-4.8) 0.6 x10^3/uL (1.0-4.8) Monocytes # (Auto) 0.3 x10^3/uL (0.0-1.1) 0.3 x10^3/uL (0.0-1.1) Eosinophils # (Auto) 0.1 x10^3/uL (0.0-0.7) 0.1 x10^3/uL (0.0-0.7) Basophils # (Auto) 0.1 x10^3/uL (0.0-0.2) 0.0 x10^3/uL (0.0-0.2) Sodium Level 136 mmol/L (136-145) 136 mmol/L (136-145) Potassium Level 4.1 mmol/L (3.5-5.1) 4.1 mmol/L (3.5-5.1) Chloride Level 98 mmol/L (98-107) 100 mmol/L (98-107) Carbon Dioxide Level 28 mmol/L (21-32) 28 mmol/L (21-32) Anion Gap 10 (6-14) 8 (6-14) Blood Urea Nitrogen 26 mg/dL (7-20) 15 mg/dL (7-20) Creatinine 6.1 mg/dL (0.6-1.0) 4.1 mg/dL (0.6-1.0) Estimated GFR (Cockcroft-Gault) 8.4 13.2 Glucose Level 165 mg/dL (70-99) 127 mg/dL (70-99) Calcium Level 8.8 mg/dL (8.5-10.1) 9.1 mg/dL (8.5-10.1) Phosphorus Level 3.6 mg/dL (2.6-4.7) Albumin 3.1 g/dL (3.4-5.0) 3.0 g/dL (3.4-5.0) BUN/Creatinine Ratio 4 (6-20) Total Bilirubin 0.5 mg/dL (0.2-1.0) Aspartate Amino Transf (AST/SGOT) 33 U/L (15-37) Alanine Aminotransferase (ALT/SGPT) 14 U/L (14-59) Alkaline Phosphatase 136 U/L (46-116) Total Protein 8.1 g/dL (6.4-8.2) Albumin/Globulin Ratio 0.6 (1.0-1.7) Laboratory Tests Test 09/27/19 04:45 White Blood Count 2.7 x10^3/uL (4.0-11.0) Red Blood Count 2.55 x10^6/uL (3.50-5.40) Hemoglobin 7.9 g/dL (12.0-15.5) Hematocrit 24.0 % (36.0-47.0) Mean Corpuscular Volume 94 fL (79-100) Mean Corpuscular Hemoglobin 31 pg (25-35) Mean Corpuscular Hemoglobin Concent 33 g/dL (31-37) Red Cell Distribution Width 19.8 % (11.5-14.5) Platelet Count 107 x10^3/uL (140-400) Neutrophils (%) (Auto) 61 % (31-73) Lymphocytes (%) (Auto) 21 % (24-48) Monocytes (%) (Auto) 13 % (0-9) Eosinophils (%) (Auto) 4 % (0-3) Basophils (%) (Auto) 1 % (0-3) Neutrophils # (Auto) 1.6 x10^3/uL (1.8-7.7) Lymphocytes # (Auto) 0.6 x10^3/uL (1.0-4.8) Monocytes # (Auto) 0.3 x10^3/uL (0.0-1.1) Eosinophils # (Auto) 0.1 x10^3/uL (0.0-0.7) Basophils # (Auto) 0.0 x10^3/uL (0.0-0.2) Sodium Level 136 mmol/L (136-145) Potassium Level 4.1 mmol/L (3.5-5.1) Chloride Level 100 mmol/L (98-107) Carbon Dioxide Level 28 mmol/L (21-32) Anion Gap 8 (6-14) Blood Urea Nitrogen 15 mg/dL (7-20) Creatinine 4.1 mg/dL (0.6-1.0) Estimated GFR (Cockcroft-Gault) 13.2 BUN/Creatinine Ratio 4 (6-20) Glucose Level 127 mg/dL (70-99) Calcium Level 9.1 mg/dL (8.5-10.1) Total Bilirubin 0.5 mg/dL (0.2-1.0) Aspartate Amino Transf (AST/SGOT) 33 U/L (15-37) Alanine Aminotransferase (ALT/SGPT) 14 U/L (14-59) Alkaline Phosphatase 136 U/L (46-116) Total Protein 8.1 g/dL (6.4-8.2) Albumin 3.0 g/dL (3.4-5.0) Albumin/Globulin Ratio 0.6 (1.0-1.7) Allergies Allergies Coded Allergies Type Severity Reaction Last Updated Verified acetaminophen Adverse Reaction Intermediate Nausea and Vomiting 07/24/19 Yes Disposition/Orders: D/C to Home Patient Instructions D/C PLANNING 35 MIN ASHIA MOSS MD Sep 27, 2019 15:59
[2019-09-27] MEDS ORDERED: ALBU2.5V8 NEB (16:01)
--- NOTE | 2019-09-27 16:02 | DISCH ---
DISCHARGE INSTRUCTIONS Condition on Discharge Condition on Discharge: Stable Activity After Discharge Activity Instructions for Disc: Activity as tolerated Lifting Instructions after Dis: No heavy lifting, No pulling or pushing, Add. restrict see below Exercise Instruction after Dis: Exercise per therapy, Progress as tolerated Driving Instructions after Dis: Do not drive today Weight Bearing Status after Di: As tolerated Diet after Discharge Diet after Discharge: Renal Dialysis, Diabetic No Calorie Level Diet Texture: Regular Liquid Texture: Thin Liquid Swallowing Supervision: None needed Wound Incision Care Wound/Incision Care: No wound care needed Checks after Discharge Checks after discharge: Check blood press - daily, Check blood sugar, ac/hs, Check your Temp as needed, Weigh Yourself Daily Contacting the DR. after DC Call your doctor for: If your condition worsens Treatment/Equipment after DC Adaptive Equipment Issued: None ASHIA MOSS MD Sep 27, 2019 16:02
--- NOTE | 2019-09-27 17:00 | NUR ---
Discharge Note: CESAR AGEE [address] [place] [address] Discharge instructions and discharge home medications reviewed with Patient and a copy given. All questions have been answered and understanding verbalized. The following instructions and handouts were given: f/u with Dr. Mni and Dr. Faulkner within a month. Continue dialysis as scheduled. Discontinued lines and drains: Peripheral IV intact. Patient discharged to Home or Self Care with Family Member via Wheelchair.
== END 2019-09-27 17:00 | disposition home or self-care (01) | DRG 438 ==
LOC: ER 16:03 → ED HOLD 19:13 → 6 SOUTH 21:49
PROVIDERS: ADMIT Internal Medicine; ATTEND Internal Medicine
PROC: 30233N1 Transfusion of Nonautologous Red Blood Cells into Peripheral Vein, Percutaneous Approach (ICD-10-PCS; 2019-09-21)
PROC: 5A1D70Z Performance of Urinary Filtration, Intermittent, Less than 6 Hours Per Day (ICD-10-PCS; 2019-09-22)
PROC: 5A1D70Z Performance of Urinary Filtration, Intermittent, Less than 6 Hours Per Day (ICD-10-PCS; principal; 2019-09-23)
PROC: 5A1D70Z Performance of Urinary Filtration, Intermittent, Less than 6 Hours Per Day (ICD-10-PCS; 2019-09-26)
DX: K85.90 Acute pancreatitis without necrosis or infection, unspecified (principal); N18.6 End stage renal disease; I13.2 Hypertensive heart and chronic kidney disease with heart failure and with stage 5 chronic kidney disease, or end stage renal disease; F10.10 Alcohol abuse, uncomplicated; Z88.8 Allergy status to other drugs, medicaments and biological substances; Z79.899 Other long term (current) drug therapy; D64.9 Anemia, unspecified; E11.22 Type 2 diabetes mellitus with diabetic chronic kidney disease; E21.3 Hyperparathyroidism, unspecified; Z99.2 Dependence on renal dialysis; E78.00 Pure hypercholesterolemia, unspecified; E78.5 Hyperlipidemia, unspecified; I50.9 Heart failure, unspecified; K74.60 Unspecified cirrhosis of liver; M06.9 Rheumatoid arthritis, unspecified; M19.012 Primary osteoarthritis, left shoulder; Z82.49 Family history of ischemic heart disease and other diseases of the circulatory system; Z87.11 Personal history of peptic ulcer disease; Z87.19 Personal history of other diseases of the digestive system; Z90.49 Acquired absence of other specified parts of digestive tract; Z90.711 Acquired absence of uterus with remaining cervical stump; Z91.14 Patient's other noncompliance with medication regimen; K21.9 Gastro-esophageal reflux disease without esophagitis
CPT/HCPCS: 36415; 36430; 71046; 73030; 74176; 74246; 80048; 80053; 80069; 81001; 83540; 83550; 83605; 83690; 84484; 85025; 85027; 86850; 86900; 86901; 86920; 87086; 93005; 96374; 96375; C9113; J0360; J0882; J2405; J3010; J3490; P9016; 99285-25; G0378

== ENCOUNTER → 2019-12-10 | Outpatient (CLI) | payer OTHER, MEDICAID ==
[2019-12-10] VITALS (8 sets, daily range): BP systolic 163–201; BP diastolic 70–82
[~2019-12-10] VITALS: Ht 157.5 cm; Wt 78.5 kg
[~2019-12-10] MED LIST changes: +ALBU2.5V8 NEB; +OMEP40CA45
[2019-12-10 12:45] LABS: HEMATOCRIT 18.7 % (36.0-47.0); HEMOGLOBIN 6.3 g/dL (12.0-15.5)
--- NOTE | 2019-12-10 16:14 | NUR ---
patient came late today at 1130, her appts have been scheduled for the last 3 days in earlier am but she has not kept scheduled appts for blood transfusions because of ride transportation problems. today patients ride says he needs to leave in an hour and will not be able to come back tonight nor bring her tomorrow. i called Dr Mercado who says patient is symptomatic with fatique and needs 2 units of blood today, his orders to take her to emergency dept to be admitted under hospitalist with dx of severe anemia todays hemoglobin is 6.3. Emergency Dept.denied admission because of current diagnosis and situation. blood units now ready in Blood bank for transfusion, pt brought back to Outpatient Dept and transfusions started. ride home arrangements will be assessed later, cab voucher can be obtained if needed.
== END | disposition home or self-care (01) ==
LOC: LAB 11:55
PROVIDERS: ATTEND Nurse Practitioner Adult Health
DX: D64.9 Anemia, unspecified (principal); I13.2 Hypertensive heart and chronic kidney disease with heart failure and with stage 5 chronic kidney disease, or end stage renal disease; E11.22 Type 2 diabetes mellitus with diabetic chronic kidney disease; N18.6 End stage renal disease; I50.32 Chronic diastolic (congestive) heart failure; R53.83 Other fatigue; K21.9 Gastro-esophageal reflux disease without esophagitis; E78.5 Hyperlipidemia, unspecified; E78.00 Pure hypercholesterolemia, unspecified; G89.29 Other chronic pain; E66.9 Obesity, unspecified; Z68.31 Body mass index [BMI] 31.0-31.9, adult; Z90.710 Acquired absence of both cervix and uterus; Z90.49 Acquired absence of other specified parts of digestive tract; Z99.2 Dependence on renal dialysis
CPT/HCPCS: 36415; 36430; 85014; 85018; 86850; 86900; 86901; 86920; P9016

== ENCOUNTER 2020-03-05 14:54 | Inpatient (IN) | payer MEDICARE, MEDICAID ==
[~2020-03-05] VITALS: Ht 157.5 cm; Wt 84.9 kg
[~2020-03-05 14:54] MED LIST changes: +ACET500T68 PO
[2020-03-05 16:09] LABS: BASO % 1 % (0-3); EOS % 3 % (0-3); LYMPH # 0.5 x10^3/uL (1.0-4.8); LYMPH % 24 % (24-48); MEAN CORPUSCULAR HEMOGLOBIN 33 pg (25-35); MEAN CORPUSCULAR HGB CONC 33 g/dL (31-37); MEAN CORPUSCULAR VOLUME 99 fL (79-100); MONO % 16 % (0-9); NEUT # 1.2 x10^3/uL (1.8-7.7); NEUT % 57 % (31-73); PLATELET COUNT 162 x10^3/uL (140-400); RED BLOOD COUNT 1.77 x10^6/uL (3.50-5.40); RED CELL DISTRIBUTION WIDTH 18.9 % (11.5-14.5); WHITE BLOOD COUNT 2.1 x10^3/uL (4.0-11.0)
[2020-03-05 16:10] LABS: EOS # 0.1 x10^3/uL (0.0-0.7); MONO # 0.3 x10^3/uL (0.0-1.1)
[2020-03-05 16:11] LABS: HEMATOCRIT 17.5 % (36.0-47.0); HEMOGLOBIN 5.8 g/dL (12.0-15.5)
[2020-03-05 16:21] LABS: ALBUMIN/GLOBULIN RATIO 0.6 (1.0-1.7); TOTAL PROTEIN 8.1 g/dL (6.4-8.2)
[2020-03-05 16:22] LABS: CREATININE 6.2 mg/dL (0.6-1.0); GFR 8.2; POTASSIUM 3.6 mmol/L (3.5-5.1); TOTAL BILIRUBIN 0.5 mg/dL (0.2-1.0)
--- NOTE | 2020-03-05 16:36 | PHYS DOC ---
Past Medical History Past Medical History: Anemia, Diabetes-Type II, GERD, GI Bleed, Hypertension, Kidney Stone, Pancreatitis, Pneumonia, Renal Failure, Other Additional Past Medical Histor: Ulcers,ESRD,C-DIFF,CIRRHOSIS Past Surgical History: Cholecystectomy, Other Additional Past Surgical Histo: dialysis shunt ulcers Smoking Status: Never Smoker Alcohol Use: None Drug Use: None General Adult EDM: Chief Complaint: ABNORMAL LABS HPI: HPI: Patient is a 64-year-old female with multiple medical problems including chronic reoccurring anemia with end-stage renal disease on dialysis who presents secondary to low blood count. Patient states she was at her dialysis session today and they sent her out because her blood count was too low. She denies any shortness of breath. She is not had any palpitations dyspnea on exertion or orthopnea. [] Review of Systems: Review of Systems: Constitutional: Denies fever or chills. [] Eyes: Denies change in visual acuity. [] HENT: Denies nasal congestion or sore throat. [] Respiratory: Denies cough or shortness of breath. [] Cardiovascular: Denies chest pain or edema. [] GI: Denies any melena hematemesis or hematochezia. [] : Denies dysuria. [] Musculoskeletal: Denies back pain or joint pain. [] Integument: Denies rash. [] Neurologic: Denies headache, focal weakness or sensory changes. [] Endocrine: Denies polyuria or polydipsia. [] Lymphatic: Denies swollen glands. [] Psychiatric: Reports anxiety [] Heart Score: Risk Factors: Risk Factors: DM, Current or recent (<one month) smoker, HTN, HLP, family history of CAD, obesity. Risk Scores: Score 0 - 3: 2.5% MACE over next 6 weeks - Discharge Home Score 4 - 6: 20.3% MACE over next 6 weeks - Admit for Clinical Observation Score 7 - 10: 72.7% MACE over next 6 weeks - Early Invasive Strategies Allergies: Allergies: Allergies Coded Allergies Type Severity Reaction Last Updated Verified No Known Drug Allergies 12/30/19 No Physical Exam: PE: Constitutional: Frail female who appears older than her stated age [] HENT: Normocephalic, atraumatic, bilateral external ears normal, oropharynx moist, no oral exudates, nose normal. [] Eyes: PERRLA, EOMI, conjunctiva normal, no discharge. [] Neck: Normal range of motion, no tenderness, supple, no stridor. [] Cardiovascular:Heart rate regular rhythm, no murmur [] Lungs & Thorax: Bilateral breath sounds clear to auscultation [] Abdomen: Morbidly obese bowel sounds normal, soft, no tenderness, no masses, no pulsatile masses. [] Skin: Warm, dry, no erythema, no rash. [] Back: No tenderness, no CVA tenderness. [] Extremities: No tenderness, no cyanosis, no clubbing, ROM intact, no edema. [] Neurologic: Alert and oriented X 3, normal motor function, normal sensory funct ion, no focal deficits noted. [] Psychologic: Anxious l. [] Current Patient Data: Labs: Laboratory Tests Test 03/05/20 15:26 White Blood Count 2.1 x10^3/uL (4.0-11.0) L Red Blood Count 1.77 x10^6/uL (3.50-5.40) L Hemoglobin 5.8 g/dL (12.0-15.5) *L Hematocrit 17.5 % (36.0-47.0) *L Mean Corpuscular Volume 99 fL (79-100) Mean Corpuscular Hemoglobin 33 pg (25-35) Mean Corpuscular Hemoglobin Concent 33 g/dL (31-37) Red Cell Distribution Width 18.9 % (11.5-14.5) H Platelet Count 162 x10^3/uL (140-400) Neutrophils (%) (Auto) 57 % (31-73) Lymphocytes (%) (Auto) 24 % (24-48) Monocytes (%) (Auto) 16 % (0-9) H Eosinophils (%) (Auto) 3 % (0-3) Basophils (%) (Auto) 1 % (0-3) Neutrophils # (Auto) 1.2 x10^3/uL (1.8-7.7) L Lymphocytes # (Auto) 0.5 x10^3/uL (1.0-4.8) L Monocytes # (Auto) 0.3 x10^3/uL (0.0-1.1) Eosinophils # (Auto) 0.1 x10^3/uL (0.0-0.7) Basophils # (Auto) 0.0 x10^3/uL (0.0-0.2) Sodium Level 137 mmol/L (136-145) Potassium Level 3.6 mmol/L (3.5-5.1) Chloride Level 95 mmol/L (98-107) L Carbon Dioxide Level 31 mmol/L (21-32) Anion Gap 11 (6-14) Blood Urea Nitrogen 51 mg/dL (7-20) H Creatinine 6.2 mg/dL (0.6-1.0) H Estimated GFR (Cockcroft-Gault) 8.2 BUN/Creatinine Ratio 8 (6-20) Glucose Level 132 mg/dL (70-99) H Calcium Level 9.0 mg/dL (8.5-10.1) Total Bilirubin 0.5 mg/dL (0.2-1.0) Aspartate Amino Transferase (AST) 36 U/L (15-37) Alanine Aminotransferase (ALT) 14 U/L (14-59) Alkaline Phosphatase 181 U/L (46-116) H Total Protein 8.1 g/dL (6.4-8.2) Albumin 3.0 g/dL (3.4-5.0) L Albumin/Globulin Ratio 0.6 (1.0-1.7) L Laboratory Tests 03/05/20 15:26 Laboratory Tests 03/05/20 15:26 EKG: EKG: [] Radiology/Procedures: Radiology/Procedures: [] Course & Med Decision Making: Course & Med Decision Making Pertinent Labs and Imaging studies reviewed. (See chart for details) [] Dragon Disclaimer: Rishi Disclaimer: This electronic medical record was generated, in whole or in part, using a voice recognition dictation system. Departure Departure Impression: Primary Impression: Symptomatic anemia Additional Impression: ESRD (end stage renal disease) on dialysis Disposition: ADMITTED INPATIENT Admitting Physician: BRYANT Condition: STABLE Referrals: NO PCP (PCP) HENRY ESTEVES DO March 05, 2020 16:36
[2020-03-05] MEDS ORDERED: ONDANSETRON PF 4 MG/2 ML VIAL. IV PRN ×2 (16:45→17:00)
[2020-03-05] MEDS ORDERED: ACETAMINOPHEN 325 MG TABLET. PO PRN ×2 (16:45→17:00)
[2020-03-05] MEDS ORDERED: ZOLPIDEM 5 MG TABLET. PO PRN (17:00)
[2020-03-05] MEDS ORDERED: guaiFENesin ORAL 200 MG/10 ML LIQUID. PO PRN (17:00)
[2020-03-05] MEDS ORDERED: LORazepam 0.5 MG TABLET PO PRN (17:00)
[2020-03-05] MEDS ORDERED: DOCUSATE SODIUM 100 MG CAPSULE. PO PRN (17:00)
[2020-03-05] MEDS ORDERED: ACETAMINOPHEN 500 MG TABLET PO PRN (17:00)
[2020-03-05] MEDS ORDERED: ALBUTEROL SULFATE 2.5 MG/3 ML NEBU. NEB PRN ×2 (17:00)
[2020-03-05 17:59] VITALS: BP 109/76
[2020-03-05] MEDS: oxyCODONE/APAP 7.5/325 1 TAB TABLET PO PRN (18:26)
[2020-03-05] MEDS ORDERED: FOLI0.4T2 PO (18:47)
[2020-03-05] MEDS ORDERED: CARV25TA2 PO (18:48)
[2020-03-05 19:00] VITALS: BP 133/82
[2020-03-05] MEDS: CARVEDILOL 12.5 MG TABLET. PO SCH (21:40)
[2020-03-05 22:16] VITALS: BP 128/59
[2020-03-05 23:09] VITALS: BP 150/59
[2020-03-05 23:17] VITALS: BP 150/59
[2020-03-06] VITALS (13 sets, daily range): BP systolic 125–166; BP diastolic 53–77
[2020-03-06] MEDS: oxyCODONE/APAP 7.5/325 1 TAB TABLET PO PRN ×4 (01:39→21:01)
--- NOTE | 2020-03-06 04:48 | PDOC1 ---
History and Physical Date of Admission Date of Admission 03/05/2020 Identification/Chief Complaint Chief Complaint I was sent here Source Source: Chart review, Patient History of Present Illness History of Present Illness Patient is a 64 year old female with multiple comorbidities who was in her usual state of health and was going to her dialysis as scheduled when she was prompted to come to the ER for abnormal labs. She was found to have an anemia below 6 grams of hemoglobin reason why we were asked to admit the patient. She did not receive dialysis today, she does not have symptoms of pica, no headache no buzzing in the ears, no shortness of breath, no palpitations, no chest pain, no abdominal pain, no hematemesis, no hematochezia, no evidence of bleeding has been reported by the patient She is sittingon the bed in no acute distress. Plan of care discussed with isabell bonds and nursing staff at bedside. Discussed over the phone with nephrology reimbursement consultant. ER history : General Adult EDM: Chief Complaint: ABNORMAL LABS HPI: HPI: Patient is a 64-year-old female with multiple medical problems including chronic reoccurring anemia with end-stage renal disease on dialysis who presents secondary to low blood count. Patient states she was at her dialysis session today and they sent her out because her blood count was too low. She denies any shortness of breath. She is not had any palpitations dyspnea on exertion or orthopnea. [] Past Medical History Cardiovascular: HTN, Hyperlipidemia Pulmonary: No pertinent hx GI: Constipation, GERD, GI bleed Heme/Onc: Anemia NOS Hepatobiliary: No pertinent hx, Hep A/B/C Psych: Addictions Rheumatologic: Rheumatoid arthritis Infectious disease: No pertinent hx Renal/: Chronic renal failure, Hematuria Endocrine: Diabetes, Hyperparathyroidism Past Surgical History Past Surgical History: Cholecystectomy, Tonsillectomy, Hysterectomy, Other Family History Family History: Alcohol Abuse, High Cholestrol, Hypertension, Family History Unknown Social History ALCOHOL: other Drugs: None Current Problem List Problem List Problems Medical Problems: (1) ESRD (end stage renal disease) on dialysis Status: Chronic (2) Symptomatic anemia Status: Acute Current Medications Current Medications Current Medications Medications (Trade) Dose Ordered Sig/Kimberly Start Time Stop Time Status Last Admin Dose Admin Acetaminophen (Tylenol) 500 mg PRN Q6HRS PRN 03/05/20 17:00 UNV Albuterol Sulfate (Ventolin Neb Soln) 2.5 mg PRN Q2HRS PRN 03/05/20 17:00 Carvedilol (Coreg) 25 mg BIDWMEALS 03/05/20 20:00 03/05/20 21:40 25 MG Docusate Sodium (Colace) 100 mg PRN BID PRN 03/05/20 17:00 Folic Acid (Folic Acid) 1 mg DAILY 03/06/20 09:00 Guaifenesin (Robitussin) 200 mg PRN Q4HRS PRN 03/05/20 17:00 Lorazepam (Ativan) 0.5 mg PRN Q4HRS PRN 03/05/20 17:00 Ondansetron HCl (Zofran) 4 mg PRN Q4HRS PRN 03/05/20 17:00 Oxycodone/ Acetaminophen (Percocet 7.5/ 325) 1 tab PRN QID PRN 03/05/20 17:00 03/06/20 01:39 1 TAB Pantoprazole Sodium (Protonix) 40 mg DAILYAC 03/06/20 07:30 Zolpidem Tartrate (Ambien) 5 mg PRN QHS PRN 03/05/20 17:00 Allergies Allergies Allergies Coded Allergies Type Severity Reaction Last Updated Verified No Known Drug Allergies 12/30/19 No ROS Review of System CONSTITUTIONAL: No fever or chills EYES: No recent changes SKIN: No rash or itching CARDIOVASCULAR: No chest pain, syncope, palpitations, or edema RESPIRATORY: No SOB or cough GASTROINTESTINAL: No nausea, vomiting or abdominal pain NEUROLOGICAL: No headaches or weakness ENDOCRINE: No cold or heat intolerance GENITOURINARY: No urgency or frequency of urination MUSCULOSKELETAL: No back pain or joint pain LYMPHATICS: No enlarged lymph nodes PSYCHIATRIC: No anxiety or depression Physical Exam Physical Exam GEN.: No apparent distress. Alert and oriented. HEENT: Head is normocephalic, atraumatic NECK: Supple. LUNGS: Clear to auscultation. HEART: RRR, S1, S2 present. Peripheral pulses intact ABDOMEN: Soft, nontender. Positive bowel sounds. EXTREMITIES: Without any cyanosis. NEUROLOGIC: Normal speech, normal tone PSYCHIATRIC: Normal affect, normal mood. SKIN: No ulcerations Vitals Vitals Vital Signs Date Time Temp Pulse Resp B/P (MAP) Pulse Ox O2 Delivery O2 Flow Rate FiO2 03/06/20 02:46 Room Air 03/06/20 02:45 98.2 67 16 157/77 (103) 98 98.2 Labs Labs Laboratory Tests Test 03/05/20 15:26 03/05/20 20:10 White Blood Count 2.1 x10^3/uL (4.0-11.0) Red Blood Count 1.77 x10^6/uL (3.50-5.40) Hemoglobin 5.8 g/dL (12.0-15.5) Hematocrit 17.5 % (36.0-47.0) Mean Corpuscular Volume 99 fL (79-100) Mean Corpuscular Hemoglobin 33 pg (25-35) Mean Corpuscular Hemoglobin Concent 33 g/dL (31-37) Red Cell Distribution Width 18.9 % (11.5-14.5) Platelet Count 162 x10^3/uL (140-400) Neutrophils (%) (Auto) 57 % (31-73) Lymphocytes (%) (Auto) 24 % (24-48) Monocytes (%) (Auto) 16 % (0-9) Eosinophils (%) (Auto) 3 % (0-3) Basophils (%) (Auto) 1 % (0-3) Neutrophils # (Auto) 1.2 x10^3/uL (1.8-7.7) Lymphocytes # (Auto) 0.5 x10^3/uL (1.0-4.8) Monocytes # (Auto) 0.3 x10^3/uL (0.0-1.1) Eosinophils # (Auto) 0.1 x10^3/uL (0.0-0.7) Basophils # (Auto) 0.0 x10^3/uL (0.0-0.2) Sodium Level 137 mmol/L (136-145) Potassium Level 3.6 mmol/L (3.5-5.1) Chloride Level 95 mmol/L (98-107) Carbon Dioxide Level 31 mmol/L (21-32) Anion Gap 11 (6-14) Blood Urea Nitrogen 51 mg/dL (7-20) Creatinine 6.2 mg/dL (0.6-1.0) Estimated GFR (Cockcroft-Gault) 8.2 BUN/Creatinine Ratio 8 (6-20) Glucose Level 132 mg/dL (70-99) Calcium Level 9.0 mg/dL (8.5-10.1) Total Bilirubin 0.5 mg/dL (0.2-1.0) Aspartate Amino Transf (AST/SGOT) 36 U/L (15-37) Alanine Aminotransferase (ALT/SGPT) 14 U/L (14-59) Alkaline Phosphatase 181 U/L (46-116) Total Protein 8.1 g/dL (6.4-8.2) Albumin 3.0 g/dL (3.4-5.0) Albumin/Globulin Ratio 0.6 (1.0-1.7) Glucose (Fingerstick) 134 mg/dL (70-99) Laboratory Tests Test 03/05/20 15:26 03/05/20 20:10 White Blood Count 2.1 x10^3/uL (4.0-11.0) Red Blood Count 1.77 x10^6/uL (3.50-5.40) Hemoglobin 5.8 g/dL (12.0-15.5) Hematocrit 17.5 % (36.0-47.0) Mean Corpuscular Volume 99 fL (79-100) Mean Corpuscular Hemoglobin 33 pg (25-35) Mean Corpuscular Hemoglobin Concent 33 g/dL (31-37) Red Cell Distribution Width 18.9 % (11.5-14.5) Platelet Count 162 x10^3/uL (140-400) Neutrophils (%) (Auto) 57 % (31-73) Lymphocytes (%) (Auto) 24 % (24-48) Monocytes (%) (Auto) 16 % (0-9) Eosinophils (%) (Auto) 3 % (0-3) Basophils (%) (Auto) 1 % (0-3) Neutrophils # (Auto) 1.2 x10^3/uL (1.8-7.7) Lymphocytes # (Auto) 0.5 x10^3/uL (1.0-4.8) Monocytes # (Auto) 0.3 x10^3/uL (0.0-1.1) Eosinophils # (Auto) 0.1 x10^3/uL (0.0-0.7) Basophils # (Auto) 0.0 x10^3/uL (0.0-0.2) Sodium Level 137 mmol/L (136-145) Potassium Level 3.6 mmol/L (3.5-5.1) Chloride Level 95 mmol/L (98-107) Carbon Dioxide Level 31 mmol/L (21-32) Anion Gap 11 (6-14) Blood Urea Nitrogen 51 mg/dL (7-20) Creatinine 6.2 mg/dL (0.6-1.0) Estimated GFR (Cockcroft-Gault) 8.2 BUN/Creatinine Ratio 8 (6-20) Glucose Level 132 mg/dL (70-99) Calcium Level 9.0 mg/dL (8.5-10.1) Total Bilirubin 0.5 mg/dL (0.2-1.0) Aspartate Amino Transf (AST/SGOT) 36 U/L (15-37) Alanine Aminotransferase (ALT/SGPT) 14 U/L (14-59) Alkaline Phosphatase 181 U/L (46-116) Total Protein 8.1 g/dL (6.4-8.2) Albumin 3.0 g/dL (3.4-5.0) Albumin/Globulin Ratio 0.6 (1.0-1.7) Glucose (Fingerstick) 134 mg/dL (70-99) VTE Prophylaxis Ordered VTE Prophylaxis Devices: Yes VTE Pharmacological Prophylaxi: No Assessment/Plan Assessment/Plan Microcytic Anemia most likely iron deficiency, doubt hemolytic anemia, may need to check levels of vitamin b12, patient iron profile was not requested since it will be skewed in light of his transfusion History of Diabetes-Type II, History of GERD and GI Bleed currently asymptomatic Essential Hypertension, History of Ulcers, ESRD on HD Plan: admit to medical floor transfuse 2 units of PRBCs dialysis as per nephrology resume home medications further recommendations based on clinical course labs after transfusion reassess in the am DVT prophylaxis: SCD AJ FELTON MD March 06, 2020 04:47
[2020-03-06 07:22] LABS: BASO % 1 % (0-3); EOS # 0.1 x10^3/uL (0.0-0.7); EOS % 3 % (0-3); LYMPH # 0.5 x10^3/uL (1.0-4.8); LYMPH % 27 % (24-48); MEAN CORPUSCULAR HEMOGLOBIN 32 pg (25-35); MEAN CORPUSCULAR HGB CONC 34 g/dL (31-37); MEAN CORPUSCULAR VOLUME 96 fL (79-100); MONO # 0.3 x10^3/uL (0.0-1.1); MONO % 13 % (0-9); NEUT # 1.1 x10^3/uL (1.8-7.7); NEUT % 56 % (31-73); PLATELET COUNT 147 x10^3/uL (140-400); RED BLOOD COUNT 1.94 x10^6/uL (3.50-5.40)
[2020-03-06 07:27] LABS: ALBUMIN 2.8 g/dL (3.4-5.0); ALBUMIN/GLOBULIN RATIO 0.6 (1.0-1.7); CALCIUM 8.9 mg/dL (8.5-10.1); CREATININE 6.7 mg/dL (0.6-1.0); GFR 7.5; POTASSIUM 3.7 mmol/L (3.5-5.1); TOTAL BILIRUBIN 0.6 mg/dL (0.2-1.0); TOTAL PROTEIN 7.5 g/dL (6.4-8.2)
[2020-03-06 07:31] LABS: HEMATOCRIT 18.7 % (36.0-47.0); HEMOGLOBIN 6.3 g/dL (12.0-15.5)
[2020-03-06] MEDS: PANTOPRAZOLE 40 MG TABLET.DR. PO SCH (09:28)
[2020-03-06] MEDS: FOLIC ACID 1 MG TABLET. PO SCH (09:29)
[2020-03-06] MEDS: CARVEDILOL 12.5 MG TABLET. PO SCH ×2 (09:29→17:28)
--- NOTE | 2020-03-06 10:22 | PDOC ---
PROGRESS NOTES History of Present Illness History of Present Illness VTE Prophylaxis Ordered VTE Prophylaxis Devices: Yes VTE Pharmacological Prophylaxi: No impression ==== Assessment/Plan Microcytic Anemia most likely iron deficiency, doubt hemolytic anemia, may need to check levels of vitamin b12, patient iron profile was not requested since it will be skewed in light of his transfusion History of Diabetes-Type II, History of GERD and GI Bleed currently asymptomatic Essential Hypertension, History of Ulcers, ESRD on HD Plan: admit transfuse 2 units of PRBCs dialysis as per nephrology home medications labs after transfusion reassess in the am DVT prophylaxis: SCD D/W RN Vitals Vitals Vital Signs Date Time Temp Pulse Resp B/P (MAP) Pulse Ox O2 Delivery O2 Flow Rate FiO2 03/06/20 09:42 97.6 65 16 141/62 97.6 03/06/20 09:28 Room Air 03/06/20 07:00 98 Physical Exam Physical Exam HEENT: Head is normocephalic, atraumatic NECK: Supple. LUNGS: Clear to auscultation. HEART: RRR, S1, S2 present. Peripheral pulses intact ABDOMEN: Soft, nontender. Positive bowel sounds. EXTREMITIES: Without any cyanosis. NEUROLOGIC: Normal speech, normal tone PSYCHIATRIC: Normal affect, normal mood. SKIN: No ulcerations General: Alert, Oriented X3, Cooperative, No acute distress Heart: Regular rate Lungs: Wheezing Abdomen: Soft, No tenderness Extremities: No cyanosis Labs LABS Laboratory Tests Test 03/05/20 15:26 03/05/20 20:10 03/06/20 05:40 03/06/20 07:08 White Blood Count 2.1 x10^3/uL (4.0-11.0) 2.0 x10^3/uL (4.0-11.0) Red Blood Count 1.77 x10^6/uL (3.50-5.40) 1.94 x10^6/uL (3.50-5.40) Hemoglobin 5.8 g/dL (12.0-15.5) 6.3 g/dL (12.0-15.5) Hematocrit 17.5 % (36.0-47.0) 18.7 % (36.0-47.0) Mean Corpuscular Volume 99 fL (79-100) 96 fL (79-100) Mean Corpuscular Hemoglobin 33 pg (25-35) 32 pg (25-35) Mean Corpuscular Hemoglobin Concent 33 g/dL (31-37) 34 g/dL (31-37) Red Cell Distribution Width 18.9 % (11.5-14.5) 19.0 % (11.5-14.5) Platelet Count 162 x10^3/uL (140-400) 147 x10^3/uL (140-400) Neutrophils (%) (Auto) 57 % (31-73) 56 % (31-73) Lymphocytes (%) (Auto) 24 % (24-48) 27 % (24-48) Monocytes (%) (Auto) 16 % (0-9) 13 % (0-9) Eosinophils (%) (Auto) 3 % (0-3) 3 % (0-3) Basophils (%) (Auto) 1 % (0-3) 1 % (0-3) Neutrophils # (Auto) 1.2 x10^3/uL (1.8-7.7) 1.1 x10^3/uL (1.8-7.7) Lymphocytes # (Auto) 0.5 x10^3/uL (1.0-4.8) 0.5 x10^3/uL (1.0-4.8) Monocytes # (Auto) 0.3 x10^3/uL (0.0-1.1) 0.3 x10^3/uL (0.0-1.1) Eosinophils # (Auto) 0.1 x10^3/uL (0.0-0.7) 0.1 x10^3/uL (0.0-0.7) Basophils # (Auto) 0.0 x10^3/uL (0.0-0.2) 0.0 x10^3/uL (0.0-0.2) Sodium Level 137 mmol/L (136-145) 135 mmol/L (136-145) Potassium Level 3.6 mmol/L (3.5-5.1) 3.7 mmol/L (3.5-5.1) Chloride Level 95 mmol/L (98-107) 94 mmol/L (98-107) Carbon Dioxide Level 31 mmol/L (21-32) 28 mmol/L (21-32) Anion Gap 11 (6-14) 13 (6-14) Blood Urea Nitrogen 51 mg/dL (7-20) 58 mg/dL (7-20) Creatinine 6.2 mg/dL (0.6-1.0) 6.7 mg/dL (0.6-1.0) Estimated GFR (Cockcroft-Gault) 8.2 7.5 BUN/Creatinine Ratio 8 (6-20) 9 (6-20) Glucose Level 132 mg/dL (70-99) 113 mg/dL (70-99) Calcium Level 9.0 mg/dL (8.5-10.1) 8.9 mg/dL (8.5-10.1) Total Bilirubin 0.5 mg/dL (0.2-1.0) 0.6 mg/dL (0.2-1.0) Aspartate Amino Transf (AST/SGOT) 36 U/L (15-37) 30 U/L (15-37) Alanine Aminotransferase (ALT/SGPT) 14 U/L (14-59) 12 U/L (14-59) Alkaline Phosphatase 181 U/L (46-116) 145 U/L (46-116) Total Protein 8.1 g/dL (6.4-8.2) 7.5 g/dL (6.4-8.2) Albumin 3.0 g/dL (3.4-5.0) 2.8 g/dL (3.4-5.0) Albumin/Globulin Ratio 0.6 (1.0-1.7) 0.6 (1.0-1.7) Glucose (Fingerstick) 134 mg/dL (70-99) 113 mg/dL (70-99) Assessment and Plan Assessmemt and Plan Problems Medical Problems: (1) ESRD (end stage renal disease) on dialysis Status: Chronic (2) Symptomatic anemia Status: Acute Comment Review of Relevant I have reviewed the following items tamika (where applicable) has been applied. Labs Laboratory Tests Test 03/05/20 15:26 03/05/20 20:10 03/06/20 05:40 03/06/20 07:08 White Blood Count 2.1 x10^3/uL (4.0-11.0) 2.0 x10^3/uL (4.0-11.0) Red Blood Count 1.77 x10^6/uL (3.50-5.40) 1.94 x10^6/uL (3.50-5.40) Hemoglobin 5.8 g/dL (12.0-15.5) 6.3 g/dL (12.0-15.5) Hematocrit 17.5 % (36.0-47.0) 18.7 % (36.0-47.0) Mean Corpuscular Volume 99 fL (79-100) 96 fL (79-100) Mean Corpuscular Hemoglobin 33 pg (25-35) 32 pg (25-35) Mean Corpuscular Hemoglobin Concent 33 g/dL (31-37) 34 g/dL (31-37) Red Cell Distribution Width 18.9 % (11.5-14.5) 19.0 % (11.5-14.5) Platelet Count 162 x10^3/uL (140-400) 147 x10^3/uL (140-400) Neutrophils (%) (Auto) 57 % (31-73) 56 % (31-73) Lymphocytes (%) (Auto) 24 % (24-48) 27 % (24-48) Monocytes (%) (Auto) 16 % (0-9) 13 % (0-9) Eosinophils (%) (Auto) 3 % (0-3) 3 % (0-3) Basophils (%) (Auto) 1 % (0-3) 1 % (0-3) Neutrophils # (Auto) 1.2 x10^3/uL (1.8-7.7) 1.1 x10^3/uL (1.8-7.7) Lymphocytes # (Auto) 0.5 x10^3/uL (1.0-4.8) 0.5 x10^3/uL (1.0-4.8) Monocytes # (Auto) 0.3 x10^3/uL (0.0-1.1) 0.3 x10^3/uL (0.0-1.1) Eosinophils # (Auto) 0.1 x10^3/uL (0.0-0.7) 0.1 x10^3/uL (0.0-0.7) Basophils # (Auto) 0.0 x10^3/uL (0.0-0.2) 0.0 x10^3/uL (0.0-0.2) Sodium Level 137 mmol/L (136-145) 135 mmol/L (136-145) Potassium Level 3.6 mmol/L (3.5-5.1) 3.7 mmol/L (3.5-5.1) Chloride Level 95 mmol/L (98-107) 94 mmol/L (98-107) Carbon Dioxide Level 31 mmol/L (21-32) 28 mmol/L (21-32) Anion Gap 11 (6-14) 13 (6-14) Blood Urea Nitrogen 51 mg/dL (7-20) 58 mg/dL (7-20) Creatinine 6.2 mg/dL (0.6-1.0) 6.7 mg/dL (0.6-1.0) Estimated GFR (Cockcroft-Gault) 8.2 7.5 BUN/Creatinine Ratio 8 (6-20) 9 (6-20) Glucose Level 132 mg/dL (70-99) 113 mg/dL (70-99) Calcium Level 9.0 mg/dL (8.5-10.1) 8.9 mg/dL (8.5-10.1) Total Bilirubin 0.5 mg/dL (0.2-1.0) 0.6 mg/dL (0.2-1.0) Aspartate Amino Transf (AST/SGOT) 36 U/L (15-37) 30 U/L (15-37) Alanine Aminotransferase (ALT/SGPT) 14 U/L (14-59) 12 U/L (14-59) Alkaline Phosphatase 181 U/L (46-116) 145 U/L (46-116) Total Protein 8.1 g/dL (6.4-8.2) 7.5 g/dL (6.4-8.2) Albumin 3.0 g/dL (3.4-5.0) 2.8 g/dL (3.4-5.0) Albumin/Globulin Ratio 0.6 (1.0-1.7) 0.6 (1.0-1.7) Glucose (Fingerstick) 134 mg/dL (70-99) 113 mg/dL (70-99) Laboratory Tests Test 03/05/20 15:26 5/9/20 20:10 03/06/20 05:40 03/06/20 07:08 White Blood Count 2.1 x10^3/uL (4.0-11.0) 2.0 x10^3/uL (4.0-11.0) Red Blood Count 1.77 x10^6/uL (3.50-5.40) 1.94 x10^6/uL (3.50-5.40) Hemoglobin 5.8 g/dL (12.0-15.5) 6.3 g/dL (12.0-15.5) Hematocrit 17.5 % (36.0-47.0) 18.7 % (36.0-47.0) Mean Corpuscular Volume 99 fL (79-100) 96 fL (79-100) Mean Corpuscular Hemoglobin 33 pg (25-35) 32 pg (25-35) Mean Corpuscular Hemoglobin Concent 33 g/dL (31-37) 34 g/dL (31-37) Red Cell Distribution Width 18.9 % (11.5-14.5) 19.0 % (11.5-14.5) Platelet Count 162 x10^3/uL (140-400) 147 x10^3/uL (140-400) Neutrophils (%) (Auto) 57 % (31-73) 56 % (31-73) Lymphocytes (%) (Auto) 24 % (24-48) 27 % (24-48) Monocytes (%) (Auto) 16 % (0-9) 13 % (0-9) Eosinophils (%) (Auto) 3 % (0-3) 3 % (0-3) Basophils (%) (Auto) 1 % (0-3) 1 % (0-3) Neutrophils # (Auto) 1.2 x10^3/uL (1.8-7.7) 1.1 x10^3/uL (1.8-7.7) Lymphocytes # (Auto) 0.5 x10^3/uL (1.0-4.8) 0.5 x10^3/uL (1.0-4.8) Monocytes # (Auto) 0.3 x10^3/uL (0.0-1.1) 0.3 x10^3/uL (0.0-1.1) Eosinophils # (Auto) 0.1 x10^3/uL (0.0-0.7) 0.1 x10^3/uL (0.0-0.7) Basophils # (Auto) 0.0 x10^3/uL (0.0-0.2) 0.0 x10^3/uL (0.0-0.2) Sodium Level 137 mmol/L (136-145) 135 mmol/L (136-145) Potassium Level 3.6 mmol/L (3.5-5.1) 3.7 mmol/L (3.5-5.1) Chloride Level 95 mmol/L (98-107) 94 mmol/L (98-107) Carbon Dioxide Level 31 mmol/L (21-32) 28 mmol/L (21-32) Anion Gap 11 (6-14) 13 (6-14) Blood Urea Nitrogen 51 mg/dL (7-20) 58 mg/dL (7-20) Creatinine 6.2 mg/dL (0.6-1.0) 6.7 mg/dL (0.6-1.0) Estimated GFR (Cockcroft-Gault) 8.2 7.5 BUN/Creatinine Ratio 8 (6-20) 9 (6-20) Glucose Level 132 mg/dL (70-99) 113 mg/dL (70-99) Calcium Level 9.0 mg/dL (8.5-10.1) 8.9 mg/dL (8.5-10.1) Total Bilirubin 0.5 mg/dL (0.2-1.0) 0.6 mg/dL (0.2-1.0) Aspartate Amino Transf (AST/SGOT) 36 U/L (15-37) 30 U/L (15-37) Alanine Aminotransferase (ALT/SGPT) 14 U/L (14-59) 12 U/L (14-59) Alkaline Phosphatase 181 U/L (46-116) 145 U/L (46-116) Total Protein 8.1 g/dL (6.4-8.2) 7.5 g/dL (6.4-8.2) Albumin 3.0 g/dL (3.4-5.0) 2.8 g/dL (3.4-5.0) Albumin/Globulin Ratio 0.6 (1.0-1.7) 0.6 (1.0-1.7) Glucose (Fingerstick) 134 mg/dL (70-99) 113 mg/dL (70-99) Medications Current Medications Ondansetron HCl (Zofran) 4 mg PRN Q8HRS PRN IV NAUSEA/VOMITING; Start 03/05/20 at 16:45; Stop 03/05/20 at 17:01; Status DC Acetaminophen (Tylenol) 650 mg PRN Q4HRS PRN PO FEVER > 100.3'F; Start 03/05/20 at 16:45; Stop 03/05/20 at 17:01; Status DC Ondansetron HCl (Zofran) 4 mg PRN Q4HRS PRN IV NAUSEA/VOMITING; Start 03/05/20 at 17:00 Zolpidem Tartrate (Ambien) 5 mg PRN QHS PRN PO INSOMNIA; Start 03/05/20 at 17:00 Acetaminophen (Tylenol) 650 mg PRN Q4HRS PRN PO TEMP OVER 100.4F OR MILD PAIN; Start 03/05/20 at 17:00 Docusate Sodium (Colace) 100 mg PRN BID PRN PO CONSTIPATION; Start 03/05/20 at 17:00 Albuterol Sulfate (Ventolin Neb Soln) 2.5 mg PRN Q4HRS PRN NEB SHORTNESS OF BREATH; Start 03/05/20 at 17:00; Stop 03/05/20 at 17:02; Status DC Guaifenesin (Robitussin) 200 mg PRN Q4HRS PRN PO COUGH; Start 03/05/20 at 17:00 Lorazepam (Ativan) 0.5 mg PRN Q4HRS PRN PO ANXIETY / AGITATION; Start 03/05/20 at 17:00 Acetaminophen (Tylenol) 500 mg PRN Q6HRS PRN PO pain or fever; Start 03/05/20 at 17:00; Status UNV Albuterol Sulfate (Ventolin Neb Soln) 2.5 mg PRN Q2HRS PRN NEB SOB / WHILE AWAKE; Start 03/05/20 at 17:00 Oxycodone/ Acetaminophen (Percocet 7.5/ 325) 1 tab PRN QID PRN PO PAIN Last administered on 03/06/20 09:28; Start 03/05/20 at 17:00 Pantoprazole Sodium (Protonix) 40 mg DAILYAC PO Last administered on 03/06/20 09:28; Start 03/06/20 at 07:30 Carvedilol (Coreg) 25 mg BIDWMEALS PO Last administered on 03/06/20 09:29; Start 03/05/20 at 20:00 Folic Acid (Folic Acid) 1 mg DAILY PO Last administered on 03/06/20at 09:29; Start 03/06/20 at 09:00 Active Scripts Active Proair Hfa (Albuterol Sulfate) 8.5 Gm Hfa.aer.ad 2.5 Mg NEB PRN Q2HRS PRN 30 Days Pantoprazole Sodium (Pantoprazole Sodium) 40 Mg Tablet.dr 40 Mg PO DAILYAC 30 Days Reported Carvedilol 25 Mg Tablet 25 Mg PO BIDWMEALS Folic Acid 0.4 Mg Tablet 0.4 Mg PO DAILY Acetaminophen 500 Mg Tablet 1 Tab PO PRN Q6HRS PRN 15 Days Percocet 7.5-325 Mg Tablet (Oxycodone/Acetaminophen) 1 Each Tablet 1 Tab PO PRN QID PRN MDD 3 Tablet(s) 5 Days Vitals/I & O Vital Sign - Last 24 Hours 03/05/20 03/05/20 03/05/20 03/05/20 15:05 17:59 18:26 19:00 Temp 98.1 98.0 98.7 98.1 98.0 98.7 Pulse 72 68 67 Resp 20 18 18 B/P (MAP) 117/62 (80) 109/76 (87) 133/82 (99) Pulse Ox 98 97 98 O2 Delivery Room Air Room Air Room Air Room Air 03/05/20 03/05/20 03/05/20 03/05/20 20:00 20:27 21:40 22:16 Temp 97.8 97.8 Pulse 66 63 Resp 16 B/P (MAP) 143/72 128/59 Pulse Ox 100 O2 Delivery Room Air Room Air 03/05/20 03/05/20 03/06/20 03/06/20 23:09 23:17 00:24 01:23 Temp 98.0 98.0 97.9 97.7 98.0 98.0 97.9 97.7 Pulse 64 64 63 66 Resp 16 16 14 18 B/P (MAP) 150/59 (89) 150/59 125/53 133/62 Pulse Ox 98 O2 Delivery Room Air 03/06/20 03/06/20 03/06/20 03/06/20 01:39 02:24 02:45 02:46 Temp 98.2 98.2 98.2 98.2 Pulse 67 67 Resp 16 16 B/P (MAP) 157/77 157/77 (103) Pulse Ox 98 O2 Delivery Room Air Room Air Room Air 03/06/20 03/06/20 03/06/20 03/06/20 07:00 09:26 09:28 09:29 Temp 97.8 97.7 97.8 97.7 Pulse 69 70 70 Resp 18 16 B/P (MAP) 133/62 (85) 152/71 152/71 Pulse Ox 98 O2 Delivery Room Air Room Air 03/06/20 09:42 Temp 97.6 97.6 Pulse 65 Resp 16 B/P (MAP) 141/62 Intake and Output 03/05/20 03/05/20 03/06/20 15:00 23:00 07:00 Intake Total 315 ml 650 ml Balance 315 ml 650 ml ASHIA MOSS MD March 06, 2020 10:21
[2020-03-06 15:24] LABS: HEMATOCRIT 21.5 % (36.0-47.0); HEMOGLOBIN 7.3 g/dL (12.0-15.5)
--- NOTE | 2020-03-06 19:06 | CONS ---
DATE OF CONSULTATION: REQUESTING PHYSICIAN: Hospitalist. REASON FOR CONSULTATION: End-stage renal disease for ongoing dialysis. HISTORY OF PRESENT ILLNESS: A 64-year-old female with history of end-stage renal disease in the setting of diabetes, diabetic nephropathy and hypertensive nephrosclerosis. She presented to the hospital with low hemoglobin. She received 2 units of packed red blood cells. She will need ongoing evaluation and management of comorbidities associated with dialysis with end-stage renal disease as well as ongoing dialysis. PAST MEDICAL HISTORY: Diabetes mellitus, hypertension, end-stage renal disease, hemodialysis dependent, anemia of chronic kidney disease, secondary hyperparathyroidism, renal disease, rheumatoid arthritis, hyperlipidemia, GE reflux disease, and constipation. ALLERGIES: None. MEDICATIONS: Reviewed per medication list. FAMILY HISTORY: Noncontributory. SOCIAL HISTORY: The patient resides with assistance. REVIEW OF SYSTEMS: No headache, sinus problem, nasal drainage, epistaxis, change in vision or hearing. No difficulty swallowing. No fever, chills, cough, sputum production, or hemoptysis. No abdominal pain. No nausea, vomiting, diarrhea. No upper or lower gastrointestinal blood loss. No seizures or malignancies. PHYSICAL EXAMINATION: GENERAL APPEARANCE: The patient is awake, conversant, appropriate. HEENT: Clear. NECK: No increased JVD. No thyromegaly, mass, or adenopathy. LUNGS: Clear. CARDIAC: Without S3 or rub. ABDOMEN: Soft, nontender, no bruits. EXTREMITIES: Without edema. NEUROLOGIC: Nonfocal, nonlocalized. PSYCHIATRIC: Good attention to detail, appropriate affect. LABORATORY DATA: Hemoglobin 6, hematocrit 18.7, platelets are 147, white count 2, potassium 3.7, creatinine 6.7, and GFR 7.5. IMPRESSION: 1. End-stage renal disease secondary to diabetes mellitus and hypertension, nephrosclerosis, hemodialysis dependent, Saturday, and Saturday. 2. Anemia -- No active gastrointestinal bleeding. Certainly has underlying anemia of chronic kidney disease, but has been on erythropoietic agents. RECOMMENDATIONS: 1. Ongoing dialysis Saturday, and Saturday. We will also dialyze tomorrow for missed treatment. 2. Transfuse 2 units of packed red blood cells tomorrow with dialysis. 3. Consider GI evaluation. HAYDER LEZAMA MD DR: DEREK/danial JOB#: [id number] / [id number]
[2020-03-07 03:00] VITALS: BP 124/65
[2020-03-07 04:58] LABS: BASO % 1 % (0-3); EOS # 0.1 x10^3/uL (0.0-0.7); EOS % 3 % (0-3); HEMATOCRIT 22.7 % (36.0-47.0); HEMOGLOBIN 7.7 g/dL (12.0-15.5); LYMPH # 0.6 x10^3/uL (1.0-4.8); LYMPH % 27 % (24-48); MEAN CORPUSCULAR HEMOGLOBIN 33 pg (25-35); MEAN CORPUSCULAR HGB CONC 34 g/dL (31-37); MEAN CORPUSCULAR VOLUME 96 fL (79-100); MONO # 0.3 x10^3/uL (0.0-1.1); MONO % 13 % (0-9); NEUT # 1.2 x10^3/uL (1.8-7.7); NEUT % 57 % (31-73); PLATELET COUNT 137 x10^3/uL (140-400); RED BLOOD COUNT 2.36 x10^6/uL (3.50-5.40); RED CELL DISTRIBUTION WIDTH 19.6 % (11.5-14.5); WHITE BLOOD COUNT 2.1 x10^3/uL (4.0-11.0)
[2020-03-07 05:32] LABS: ALBUMIN 2.9 g/dL (3.4-5.0); CREATININE 7.2 mg/dL (0.6-1.0); GFR 6.9
[2020-03-07 07:00] VITALS: BP 146/72
[2020-03-07] MEDS: PANTOPRAZOLE 40 MG TABLET.DR. PO SCH (07:30)
[2020-03-07] MEDS ORDERED: IV NORMAL SALINE 1000ML BAG 1,000 ML IV PRN ×2 (07:44)
[2020-03-07] MEDS: CARVEDILOL 12.5 MG TABLET. PO SCH ×2 (07:45→15:22)
[2020-03-07] MEDS ORDERED: ACETAMINOPHEN 500 MG TABLET PO PRN (07:45)
[2020-03-07] MEDS: FOLIC ACID 1 MG TABLET. PO SCH (07:45)
[2020-03-07] MEDS ORDERED: diphenhydrAMINE 50 MG/ML VIAL IV PRN ×2 (07:45)
[2020-03-07] MEDS ORDERED: DIALYSIS PATIENT. MC PRN (07:45)
--- NOTE | 2020-03-07 08:34 | NUR ---
SW following. Discussed with RN, pt from home does dialysis at [facility] (ph: [phone], fax: [phone]) Saturday, , Saturday. ANITA advised RN pt will need a COVID-19 test before being able to return to [facility]. Will have COVID swab today. SW will continue to follow.
[2020-03-07] MEDS: oxyCODONE/APAP 7.5/325 1 TAB TABLET PO PRN ×3 (08:41→21:14)
--- NOTE | 2020-03-07 10:04 | PDOC ---
SUBJECTIVE ROS Seen on HD, No complaints OBJECTIVE Vital Signs Vital Signs Date Time Temp Pulse Resp B/P (MAP) Pulse Ox O2 Delivery O2 Flow Rate FiO2 03/07/20 08:41 98 Room Air 03/07/20 07:00 97.7 63 18 146/72 (96) 97.7 I & 0 Intake and Output 03/07/20 07:00 Intake Total 1690 ml Balance 1690 ml Intake Oral 1340 ml Blood Product IV Normal Saline Flush 350 ml PHYSICAL EXAM Physical Exam GEN.: No apparent distress. HEENT: OM moist NECK: Supple. LUNGS: Clear to auscultation, non labored HEART: RRR, S1, S2 present. ABDOMEN: Soft, nontender. Positive bowel sounds. EXTREMITIES: No LE edema NEUROLOGIC: grossly normal SKIN: No rash No CVA or SP tenderness, No Carbajal DIAGNOSIS/ASSESSMENT Assessment & Plan ESRD 2/ 2 DM and HTN, On TTS schedule HD not done on Sat OP unit 2/2 Low Hgb , seen on HD today , tolerating well, Discussed with Kesha Anemia -- No active gastrointestinal bleeding, s/p PRBC Gets OSMIN as out patient on Dialysis Diabetes-Type II, History of GERD and GI Bleed Essential Hypertension- stable, antihypertensives COMMENT/RELEVANT DATA Meds Current Medications Medications (Trade) Dose Ordered Sig/Kimberly Start Time Stop Time Status Last Admin Dose Admin Acetaminophen (Tylenol) 500 mg 1X PRN PRN 03/07/20 07:45 03/08/20 07:44 Albuterol Sulfate (Ventolin Neb Soln) 2.5 mg PRN Q2HRS PRN 03/05/20 17:00 Carvedilol (Coreg) 25 mg BIDWMEALS 03/05/20 20:00 03/06/20 17:28 25 MG Diphenhydramine HCl (Benadryl) 25 mg 1X PRN PRN 03/07/20 07:45 03/08/20 07:44 Docusate Sodium (Colace) 100 mg PRN BID PRN 03/05/20 17:00 Folic Acid (Folic Acid) 1 mg DAILY 03/06/20 09:00 03/06/20 09:29 1 MG Guaifenesin (Robitussin) 200 mg PRN Q4HRS PRN 03/05/20 17:00 Info (PHARMACY MONITORING -- do not chart) 1 each PRN DAILY PRN 03/07/20 07:45 Lorazepam (Ativan) 0.5 mg PRN Q4HRS PRN 03/05/20 17:00 Ondansetron HCl (Zofran) 4 mg PRN Q4HRS PRN 03/05/20 17:00 03/06/20 14:30 4 MG Oxycodone/ Acetaminophen (Percocet 7.5/ 325) 1 tab PRN QID PRN 03/05/20 17:00 03/07/20 08:41 1 TAB Pantoprazole Sodium (Protonix) 40 mg DAILYAC 03/06/20 07:30 03/06/20 09:28 40 MG Sodium Chloride 1,000 ml @ 400 mls/hr Q2H30M PRN 03/07/20 07:44 03/07/20 19:43 Zolpidem Tartrate (Ambien) 5 mg PRN QHS PRN 03/05/20 17:00 Lab Laboratory Tests Test 03/06/20 11:25 03/06/20 14:50 03/06/20 16:37 03/06/20 19:59 Glucose (Fingerstick) 123 mg/dL (70-99) 92 mg/dL (70-99) 122 mg/dL (70-99) Hemoglobin 7.3 g/dL (12.0-15.5) Hematocrit 21.5 % (36.0-47.0) Mean Corpuscular Hemoglobin Concent 34 g/dL (31-37) Test 03/07/20 02:50 03/07/20 06:57 White Blood Count 2.1 x10^3/uL (4.0-11.0) Red Blood Count 2.36 x10^6/uL (3.50-5.40) Hemoglobin 7.7 g/dL (12.0-15.5) Hematocrit 22.7 % (36.0-47.0) Mean Corpuscular Volume 96 fL (79-100) Mean Corpuscular Hemoglobin 33 pg (25-35) Mean Corpuscular Hemoglobin Concent 34 g/dL (31-37) Red Cell Distribution Width 19.6 % (11.5-14.5) Platelet Count 137 x10^3/uL (140-400) Neutrophils (%) (Auto) 57 % (31-73) Lymphocytes (%) (Auto) 27 % (24-48) Monocytes (%) (Auto) 13 % (0-9) Eosinophils (%) (Auto) 3 % (0-3) Basophils (%) (Auto) 1 % (0-3) Neutrophils # (Auto) 1.2 x10^3/uL (1.8-7.7) Lymphocytes # (Auto) 0.6 x10^3/uL (1.0-4.8) Monocytes # (Auto) 0.3 x10^3/uL (0.0-1.1) Eosinophils # (Auto) 0.1 x10^3/uL (0.0-0.7) Basophils # (Auto) 0.0 x10^3/uL (0.0-0.2) Sodium Level 134 mmol/L (136-145) Potassium Level 4.0 mmol/L (3.5-5.1) Chloride Level 93 mmol/L (98-107) Carbon Dioxide Level 27 mmol/L (21-32) Anion Gap 14 (6-14) Blood Urea Nitrogen 62 mg/dL (7-20) Creatinine 7.2 mg/dL (0.6-1.0) Estimated GFR (Cockcroft-Gault) 6.9 Glucose Level 93 mg/dL (70-99) Calcium Level 9.0 mg/dL (8.5-10.1) Phosphorus Level 6.0 mg/dL (2.6-4.7) Albumin 2.9 g/dL (3.4-5.0) Glucose (Fingerstick) 100 mg/dL (70-99) Results All relevant outside records, renal labs, imaging studies, telemetry/EKG's were reviewed. GINO TAN MD March 07, 2020 10:04
--- NOTE | 2020-03-07 10:54 | PDOC ---
PROGRESS NOTES History of Present Illness History of Present Illness VTE Prophylaxis Ordered VTE Prophylaxis Devices: Yes VTE Pharmacological Prophylaxi: No impression ==== Assessment/Plan Microcytic Anemia most likely iron deficiency, doubt hemolytic anemia, may need to check levels of vitamin b12, patient iron profile was not requested since it will be skewed in light of his transfusion History of Diabetes-Type II, History of GERD and GI Bleed currently asymptomatic Essential Hypertension, History of Ulcers, ESRD on HD Plan: admit transfuse 2 units of PRBCs dialysis as per nephrology home medications labs after transfusion reassess in the am DVT prophylaxis: SCD GI CONSULT 37 min pt exam, chart review, > 50% of time spent with exam, chart review, pt care coordination D/W RN Vitals Vitals Vital Signs Date Time Temp Pulse Resp B/P (MAP) Pulse Ox O2 Delivery O2 Flow Rate FiO2 03/07/20 08:41 98 Room Air 03/07/20 07:00 97.7 63 18 146/72 (96) 97.7 Physical Exam Physical Exam HEENT: Head is normocephalic, atraumatic NECK: Supple. LUNGS: Clear to auscultation. HEART: RRR, S1, S2 present. Peripheral pulses intact ABDOMEN: Soft, nontender. Positive bowel sounds. EXTREMITIES: Without any cyanosis. NEUROLOGIC: Normal speech, normal tone PSYCHIATRIC: Normal affect, normal mood. SKIN: No ulcerations General: Alert, Oriented X3, Cooperative, No acute distress Heart: Regular rate, Normal S1 Lungs: Clear, Wheezing Abdomen: Soft, No tenderness Extremities: No clubbing, No cyanosis Skin: No significant lesion Labs LABS Laboratory Tests Test 03/06/20 11:25 03/06/20 14:50 03/06/20 16:37 03/06/20 19:59 Glucose (Fingerstick) 123 mg/dL (70-99) 92 mg/dL (70-99) 122 mg/dL (70-99) Hemoglobin 7.3 g/dL (12.0-15.5) Hematocrit 21.5 % (36.0-47.0) Mean Corpuscular Hemoglobin Concent 34 g/dL (31-37) Test 03/07/20 02:50 03/07/20 06:57 White Blood Count 2.1 x10^3/uL (4.0-11.0) Red Blood Count 2.36 x10^6/uL (3.50-5.40) Hemoglobin 7.7 g/dL (12.0-15.5) Hematocrit 22.7 % (36.0-47.0) Mean Corpuscular Volume 96 fL (79-100) Mean Corpuscular Hemoglobin 33 pg (25-35) Mean Corpuscular Hemoglobin Concent 34 g/dL (31-37) Red Cell Distribution Width 19.6 % (11.5-14.5) Platelet Count 137 x10^3/uL (140-400) Neutrophils (%) (Auto) 57 % (31-73) Lymphocytes (%) (Auto) 27 % (24-48) Monocytes (%) (Auto) 13 % (0-9) Eosinophils (%) (Auto) 3 % (0-3) Basophils (%) (Auto) 1 % (0-3) Neutrophils # (Auto) 1.2 x10^3/uL (1.8-7.7) Lymphocytes # (Auto) 0.6 x10^3/uL (1.0-4.8) Monocytes # (Auto) 0.3 x10^3/uL (0.0-1.1) Eosinophils # (Auto) 0.1 x10^3/uL (0.0-0.7) Basophils # (Auto) 0.0 x10^3/uL (0.0-0.2) Sodium Level 134 mmol/L (136-145) Potassium Level 4.0 mmol/L (3.5-5.1) Chloride Level 93 mmol/L (98-107) Carbon Dioxide Level 27 mmol/L (21-32) Anion Gap 14 (6-14) Blood Urea Nitrogen 62 mg/dL (7-20) Creatinine 7.2 mg/dL (0.6-1.0) Estimated GFR (Cockcroft-Gault) 6.9 Glucose Level 93 mg/dL (70-99) Calcium Level 9.0 mg/dL (8.5-10.1) Phosphorus Level 6.0 mg/dL (2.6-4.7) Albumin 2.9 g/dL (3.4-5.0) Glucose (Fingerstick) 100 mg/dL (70-99) Assessment and Plan Assessmemt and Plan Problems Medical Problems: (1) ESRD (end stage renal disease) on dialysis Status: Chronic (2) Symptomatic anemia Status: Acute Comment Review of Relevant I have reviewed the following items tamika (where applicable) has been applied. Labs Laboratory Tests Test 03/05/20 15:26 03/05/20 20:10 03/06/20 05:40 03/06/20 07:08 White Blood Count 2.1 x10^3/uL (4.0-11.0) 2.0 x10^3/uL (4.0-11.0) Red Blood Count 1.77 x10^6/uL (3.50-5.40) 1.94 x10^6/uL (3.50-5.40) Hemoglobin 5.8 g/dL (12.0-15.5) 6.3 g/dL (12.0-15.5) Hematocrit 17.5 % (36.0-47.0) 18.7 % (36.0-47.0) Mean Corpuscular Volume 99 fL (79-100) 96 fL (79-100) Mean Corpuscular Hemoglobin 33 pg (25-35) 32 pg (25-35) Mean Corpuscular Hemoglobin Concent 33 g/dL (31-37) 34 g/dL (31-37) Red Cell Distribution Width 18.9 % (11.5-14.5) 19.0 % (11.5-14.5) Platelet Count 162 x10^3/uL (140-400) 147 x10^3/uL (140-400) Neutrophils (%) (Auto) 57 % (31-73) 56 % (31-73) Lymphocytes (%) (Auto) 24 % (24-48) 27 % (24-48) Monocytes (%) (Auto) 16 % (0-9) 13 % (0-9) Eosinophils (%) (Auto) 3 % (0-3) 3 % (0-3) Basophils (%) (Auto) 1 % (0-3) 1 % (0-3) Neutrophils # (Auto) 1.2 x10^3/uL (1.8-7.7) 1.1 x10^3/uL (1.8-7.7) Lymphocytes # (Auto) 0.5 x10^3/uL (1.0-4.8) 0.5 x10^3/uL (1.0-4.8) Monocytes # (Auto) 0.3 x10^3/uL (0.0-1.1) 0.3 x10^3/uL (0.0-1.1) Eosinophils # (Auto) 0.1 x10^3/uL (0.0-0.7) 0.1 x10^3/uL (0.0-0.7) Basophils # (Auto) 0.0 x10^3/uL (0.0-0.2) 0.0 x10^3/uL (0.0-0.2) Sodium Level 137 mmol/L (136-145) 135 mmol/L (136-145) Potassium Level 3.6 mmol/L (3.5-5.1) 3.7 mmol/L (3.5-5.1) Chloride Level 95 mmol/L (98-107) 94 mmol/L (98-107) Carbon Dioxide Level 31 mmol/L (21-32) 28 mmol/L (21-32) Anion Gap 11 (6-14) 13 (6-14) Blood Urea Nitrogen 51 mg/dL (7-20) 58 mg/dL (7-20) Creatinine 6.2 mg/dL (0.6-1.0) 6.7 mg/dL (0.6-1.0) Estimated GFR (Cockcroft-Gault) 8.2 7.5 BUN/Creatinine Ratio 8 (6-20) 9 (6-20) Glucose Level 132 mg/dL (70-99) 113 mg/dL (70-99) Calcium Level 9.0 mg/dL (8.5-10.1) 8.9 mg/dL (8.5-10.1) Total Bilirubin 0.5 mg/dL (0.2-1.0) 0.6 mg/dL (0.2-1.0) Aspartate Amino Transf (AST/SGOT) 36 U/L (15-37) 30 U/L (15-37) Alanine Aminotransferase (ALT/SGPT) 14 U/L (14-59) 12 U/L (14-59) Alkaline Phosphatase 181 U/L (46-116) 145 U/L (46-116) Total Protein 8.1 g/dL (6.4-8.2) 7.5 g/dL (6.4-8.2) Albumin 3.0 g/dL (3.4-5.0) 2.8 g/dL (3.4-5.0) Albumin/Globulin Ratio 0.6 (1.0-1.7) 0.6 (1.0-1.7) Glucose (Fingerstick) 134 mg/dL (70-99) 113 mg/dL (70-99) Test 03/06/20 11:25 03/06/20 14:50 03/06/20 16:37 03/06/20 19:59 Glucose (Fingerstick) 123 mg/dL (70-99) 92 mg/dL (70-99) 122 mg/dL (70-99) Hemoglobin 7.3 g/dL (12.0-15.5) Hematocrit 21.5 % (36.0-47.0) Mean Corpuscular Hemoglobin Concent 34 g/dL (31-37) Test 03/07/20 02:50 03/07/20 06:57 White Blood Count 2.1 x10^3/uL (4.0-11.0) Red Blood Count 2.36 x10^6/uL (3.50-5.40) Hemoglobin 7.7 g/dL (12.0-15.5) Hematocrit 22.7 % (36.0-47.0) Mean Corpuscular Volume 96 fL (79-100) Mean Corpuscular Hemoglobin 33 pg (25-35) Mean Corpuscular Hemoglobin Concent 34 g/dL (31-37) Red Cell Distribution Width 19.6 % (11.5-14.5) Platelet Count 137 x10^3/uL (140-400) Neutrophils (%) (Auto) 57 % (31-73) Lymphocytes (%) (Auto) 27 % (24-48) Monocytes (%) (Auto) 13 % (0-9) Eosinophils (%) (Auto) 3 % (0-3) Basophils (%) (Auto) 1 % (0-3) Neutrophils # (Auto) 1.2 x10^3/uL (1.8-7.7) Lymphocytes # (Auto) 0.6 x10^3/uL (1.0-4.8) Monocytes # (Auto) 0.3 x10^3/uL (0.0-1.1) Eosinophils # (Auto) 0.1 x10^3/uL (0.0-0.7) Basophils # (Auto) 0.0 x10^3/uL (0.0-0.2) Sodium Level 134 mmol/L (136-145) Potassium Level 4.0 mmol/L (3.5-5.1) Chloride Level 93 mmol/L (98-107) Carbon Dioxide Level 27 mmol/L (21-32) Anion Gap 14 (6-14) Blood Urea Nitrogen 62 mg/dL (7-20) Creatinine 7.2 mg/dL (0.6-1.0) Estimated GFR (Cockcroft-Gault) 6.9 Glucose Level 93 mg/dL (70-99) Calcium Level 9.0 mg/dL (8.5-10.1) Phosphorus Level 6.0 mg/dL (2.6-4.7) Albumin 2.9 g/dL (3.4-5.0) Glucose (Fingerstick) 100 mg/dL (70-99) Laboratory Tests Test 03/06/20 11:25 03/06/20 14:50 03/06/20 16:37 03/06/20 19:59 Glucose (Fingerstick) 123 mg/dL (70-99) 92 mg/dL (70-99) 122 mg/dL (70-99) Hemoglobin 7.3 g/dL (12.0-15.5) Hematocrit 21.5 % (36.0-47.0) Mean Corpuscular Hemoglobin Concent 34 g/dL (31-37) Test 03/07/20 02:50 03/07/20 06:57 White Blood Count 2.1 x10^3/uL (4.0-11.0) Red Blood Count 2.36 x10^6/uL (3.50-5.40) Hemoglobin 7.7 g/dL (12.0-15.5) Hematocrit 22.7 % (36.0-47.0) Mean Corpuscular Volume 96 fL (79-100) Mean Corpuscular Hemoglobin 33 pg (25-35) Mean Corpuscular Hemoglobin Concent 34 g/dL (31-37) Red Cell Distribution Width 19.6 % (11.5-14.5) Platelet Count 137 x10^3/uL (140-400) Neutrophils (%) (Auto) 57 % (31-73) Lymphocytes (%) (Auto) 27 % (24-48) Monocytes (%) (Auto) 13 % (0-9) Eosinophils (%) (Auto) 3 % (0-3) Basophils (%) (Auto) 1 % (0-3) Neutrophils # (Auto) 1.2 x10^3/uL (1.8-7.7) Lymphocytes # (Auto) 0.6 x10^3/uL (1.0-4.8) Monocytes # (Auto) 0.3 x10^3/uL (0.0-1.1) Eosinophils # (Auto) 0.1 x10^3/uL (0.0-0.7) Basophils # (Auto) 0.0 x10^3/uL (0.0-0.2) Sodium Level 134 mmol/L (136-145) Potassium Level 4.0 mmol/L (3.5-5.1) Chloride Level 93 mmol/L (98-107) Carbon Dioxide Level 27 mmol/L (21-32) Anion Gap 14 (6-14) Blood Urea Nitrogen 62 mg/dL (7-20) Creatinine 7.2 mg/dL (0.6-1.0) Estimated GFR (Cockcroft-Gault) 6.9 Glucose Level 93 mg/dL (70-99) Calcium Level 9.0 mg/dL (8.5-10.1) Phosphorus Level 6.0 mg/dL (2.6-4.7) Albumin 2.9 g/dL (3.4-5.0) Glucose (Fingerstick) 100 mg/dL (70-99) Medications Current Medications Ondansetron HCl (Zofran) 4 mg PRN Q8HRS PRN IV NAUSEA/VOMITING; Start 03/05/20 at 16:45; Stop 03/05/20 at 17:01; Status DC Acetaminophen (Tylenol) 650 mg PRN Q4HRS PRN PO FEVER > 100.3'F; Start 03/05/20 at 16:45; Stop 03/05/20 at 17:01; Status DC Ondansetron HCl (Zofran) 4 mg PRN Q4HRS PRN IV NAUSEA/VOMITING Last administered on 03/06/20at 14:30; Start 03/05/20 at 17:00 Zolpidem Tartrate (Ambien) 5 mg PRN QHS PRN PO INSOMNIA; Start 03/05/20 at 17:00 Acetaminophen (Tylenol) 650 mg PRN Q4HRS PRN PO TEMP OVER 100.4F OR MILD PAIN; Start 03/05/20 at 17:00 Docusate Sodium (Colace) 100 mg PRN BID PRN PO CONSTIPATION; Start 03/05/20 at 17:00 Albuterol Sulfate (Ventolin Neb Soln) 2.5 mg PRN Q4HRS PRN NEB SHORTNESS OF BREATH; Start 03/05/20 at 17:00; Stop 03/05/20 at 17:02; Status DC Guaifenesin (Robitussin) 200 mg PRN Q4HRS PRN PO COUGH; Start 03/05/20 at 17:00 Lorazepam (Ativan) 0.5 mg PRN Q4HRS PRN PO ANXIETY / AGITATION; Start 03/05/20 at 17:00 Acetaminophen (Tylenol) 500 mg PRN Q6HRS PRN PO pain or fever; Start 03/05/20 at 17:00; Status UNV Albuterol Sulfate (Ventolin Neb Soln) 2.5 mg PRN Q2HRS PRN NEB SOB / WHILE AWAKE; Start 03/05/20 at 17:00 Oxycodone/ Acetaminophen (Percocet 7.5/ 325) 1 tab PRN QID PRN PO MODERATE - SEVERE PAIN Last administered on 03/07/20at 08:41; Start 03/05/20 at 17:00 Pantoprazole Sodium (Protonix) 40 mg DAILYAC PO Last administered on 03/06/20at 09:28; Start 03/06/20 at 07:30 Carvedilol (Coreg) 25 mg BIDWMEALS PO Last administered on 03/06/20at 17:28; Start 03/05/20 at 20:00 Folic Acid (Folic Acid) 1 mg DAILY PO Last administered on 03/06/20at 09:29; Start 03/06/20 at 09:00 Sodium Chloride 1,000 ml @ 1,000 mls/hr Q1H PRN IV hypotension; Start 03/07/20 at 07:44; Stop 03/07/20 at 13:43 Acetaminophen (Tylenol) 500 mg 1X PRN PRN PO MILD PAIN / TEMP > 100.3'F; Start 03/07/20 at 07:45; Stop 03/08/20 at 07:44 Diphenhydramine HCl (Benadryl) 25 mg 1X PRN PRN IV ITCHING; Start 03/07/20 at 07:45; Stop 03/08/20 at 07:44 Diphenhydramine HCl (Benadryl) 25 mg 1X PRN PRN IV ITCHING; Start 03/07/20 at 07:45; Stop 03/08/20 at 07:44 Sodium Chloride 1,000 ml @ 400 mls/hr Q2H30M PRN IV PATENCY; Start 03/07/20 at 07:44; Stop 03/07/20 at 19:43 Info (PHARMACY MONITORING -- do not chart) 1 each PRN DAILY PRN MC SEE COMMENTS; Start 03/07/20 at 07:45 Active Scripts Active Proair Hfa (Albuterol Sulfate) 8.5 Gm Hfa.aer.ad 2.5 Mg NEB PRN Q2HRS PRN 30 Days Pantoprazole Sodium (Pantoprazole Sodium) 40 Mg Tablet.dr 40 Mg PO DAILYAC 30 Days Reported Carvedilol 25 Mg Tablet 25 Mg PO BIDWMEALS Folic Acid 0.4 Mg Tablet 0.4 Mg PO DAILY Acetaminophen 500 Mg Tablet 1 Tab PO PRN Q6HRS PRN 15 Days Percocet 7.5-325 Mg Tablet (Oxycodone/Acetaminophen) 1 Each Tablet 1 Tab PO PRN QID PRN MDD 3 Tablet(s) 5 Days Vitals/I & O Vital Sign - Last 24 Hours 03/06/20 03/06/20 03/06/20 03/06/20 11:00 12:24 13:09 14:09 Temp 97.7 97.8 97.7 97.8 Pulse 72 65 Resp 18 16 B/P (MAP) 141/62 (88) 146/72 Pulse Ox 99 O2 Delivery Room Air Room Air Room Air 03/06/20 03/06/20 03/06/20 03/06/20 15:00 17:28 19:00 21:01 Temp 97.7 98.9 97.7 98.9 Pulse 70 70 67 Resp 18 18 17 B/P (MAP) 140/64 (89) 140/64 146/77 (100) Pulse Ox 99 99 99 O2 Delivery Room Air Room Air Room Air 03/06/20 03/06/20 03/07/20 03/07/20 22:01 23:00 03:00 07:00 Temp 98.9 97.3 97.7 98.9 97.3 97.7 Pulse 65 60 63 Resp 18 18 18 B/P (MAP) 140/60 (86) 124/65 (84) 146/72 (96) Pulse Ox 99 97 99 98 O2 Delivery Room Air Room Air Room Air Room Air 03/07/20 08:41 Pulse Ox 98 O2 Delivery Room Air Intake and Output 0 03/06/20 03/06/20 03/07/20 15:00 23:00 07:00 Intake Total 950 ml 540 ml 200 ml Balance 950 ml 540 ml 200 ml ASHIA MOSS MD March 07, 2020 10:54
--- NOTE | 2020-03-07 13:38 | PDOC2 ---
GI CONSULT Reason For Consult: Marked anemia HPI: HPI: 64 y/o female who we've seen many times. See GI consult from 02/11/20. Here since 03/05. Advised to go to ER based on dialysis labs, was told she needed a transfusion and then could go home. Really needs to go home today - supposed to have a phone meeting about social security - not sure what time she was told to call in because she left the paper at home, has been trying to call all morning. Does not want to stay for COVID testing needed prior to next HD. (Was negative last admission on 02/15/20). GI-hernandez has no complaints. Denies hematochezia, melena, n/v, abd pain, and diarrhea. Taking pantoprazole BID and using Benadryl for sleep instead of NSAID. PMH: PMH: HTN, HLD, ESRD on HD, RA, DM, hyperparathyroidism, OA partial hysterectomy FH: Family History: DM Social History: Smoke: No ALCOHOL: other (heavy in the past) Drugs: None ROS: GEN: Denies fevers, chills, sweats HEENT: Denies blurred vision, sore throat CV: Denies chest pain RESP: Denies shortness of air, cough GI: Per HPI : Denies hematuria, dysuria ENDO: Denies weight changes NEURO: Denies confusion, dizziness MSK: Denies weakness, joint pain/swelling SKIN: Denies jaundice, pruritus Vitals: Vitals: Vital Signs Date Time Temp Pulse Resp B/P (MAP) Pulse Ox O2 Delivery O2 Flow Rate FiO2 03/07/20 08:41 98 Room Air 03/07/20 07:00 97.7 63 18 146/72 (96) 97.7 Labs: Labs: Laboratory Tests Test 03/06/20 14:50 03/06/20 16:37 03/06/20 19:59 03/07/20 02:50 Hemoglobin 7.3 g/dL (12.0-15.5) 7.7 g/dL (12.0-15.5) Hematocrit 21.5 % (36.0-47.0) 22.7 % (36.0-47.0) Mean Corpuscular Hemoglobin Concent 34 g/dL (31-37) 34 g/dL (31-37) Glucose (Fingerstick) 92 mg/dL (70-99) 122 mg/dL (70-99) White Blood Count 2.1 x10^3/uL (4.0-11.0) Red Blood Count 2.38 x10^6/uL (3.50-5.70) Mean Corpuscular Volume 96 fL (79-100) Mean Corpuscular Hemoglobin 33 pg (25-35) Red Cell Distribution Width 19.6 % (11.5-14.5) Platelet Count 137 x10^3/uL (140-400) Neutrophils (%) (Auto) 57 % (31-73) Lymphocytes (%) (Auto) 27 % (24-48) Monocytes (%) (Auto) 13 % (0-9) Eosinophils (%) (Auto) 3 % (0-3) Basophils (%) (Auto) 1 % (0-3) Neutrophils # (Auto) 1.2 x10^3/uL (1.8-7.7) Lymphocytes # (Auto) 0.6 x10^3/uL (1.0-4.8) Monocytes # (Auto) 0.3 x10^3/uL (0.0-1.1) Eosinophils # (Auto) 0.1 x10^3/uL (0.0-0.7) Basophils # (Auto) 0.0 x10^3/uL (0.0-0.2) Absolute Reticulocyte Count 0.063 x10^6/uL (0.020-0.120) Percent Reticulocyte Count 2.7 % (0.5-2.3) Immature Reticulocyte Fraction 0.55 (0.20-0.60) Sodium Level 134 mmol/L (136-145) Potassium Level 4.0 mmol/L (3.5-5.1) Chloride Level 93 mmol/L (98-107) Carbon Dioxide Level 27 mmol/L (21-32) Anion Gap 14 (6-14) Blood Urea Nitrogen 62 mg/dL (7-20) Creatinine 7.2 mg/dL (0.6-1.0) Estimated GFR (Cockcroft-Gault) 6.9 Glucose Level 93 mg/dL (70-99) Calcium Level 9.0 mg/dL (8.5-10.1) Phosphorus Level 6.0 mg/dL (2.6-4.7) Albumin 2.9 g/dL (3.4-5.0) Test 03/07/20 06:57 Glucose (Fingerstick) 100 mg/dL (70-99) Allergies: Coded Allergies: No Known Drug Allergies (Unverified , 12/30/19) Imaging: Imaging: - PE: GEN: NAD, eating lunch - burger w/ double meat, broccoli, salad, cake - asks for a lemon [place] pop HEENT: Atraumatic, PERRL LUNGS: CTAB HEART: RRR ABD: NABS, S/ND/NT EXTREMITY: No edema SKIN: No rashes, no jaundice NEURO/PSYCH: A & O 3 A/P: A/P: Chronic anemia H/o recurrent UGI bleeding, refractory ulcer - H. pylori negative x 2, last endotherapy 01/11, past GDA embolization and surgical evals GERD, cirrhosis, Hep C, h/o C Diff, h/o pancreatitis CRC screen - last colonoscopy unremarkable at [facility] in 2019 ESRD on HD, h/o alcohol overuse, h/o NSAID use -- No obvious GI bleeding. Hgb improved w/ transfusions. Continue PPI. Defer her issues re: COVID testing and desire to DC to Dr. Patel. IRIS SZYMANSKI March 07, 2020 13:38
--- NOTE | 2020-03-07 13:49 | NUR ---
Received new order to test patient for Covid 19. Notified patient and she said "no, I'm not doing that". I educated her on the reasoning why she would need to be tested so she could attend dialysis when she discharges. Patient stated "I will think about it, I'll let you know, I'm not sure". Housing Director will continue to follow up with patient. Addendum: 03/07/20 at 1419 by BRIDGET CARSON RN Patient stated "I will take that test now". Housing Director obtained Covid 19 test and delivered to the lab.
[2020-03-07 14:50] VITALS: BP 145/81
[2020-03-07 19:00] VITALS: BP 131/45
[2020-03-07 23:00] VITALS: BP 127/55
[2020-03-08 03:00] VITALS: BP 134/55
[2020-03-08 04:48] LABS: BASO % 1 % (0-3); EOS # 0.1 x10^3/uL (0.0-0.7); EOS % 3 % (0-3); HEMATOCRIT 22.8 % (36.0-47.0); HEMOGLOBIN 7.6 g/dL (12.0-15.5); LYMPH # 0.5 x10^3/uL (1.0-4.8); LYMPH % 23 % (24-48); MEAN CORPUSCULAR HEMOGLOBIN 33 pg (25-35); MEAN CORPUSCULAR HGB CONC 33 g/dL (31-37); MEAN CORPUSCULAR VOLUME 98 fL (79-100); MONO # 0.3 x10^3/uL (0.0-1.1); MONO % 16 % (0-9); NEUT # 1.2 x10^3/uL (1.8-7.7); NEUT % 57 % (31-73); PLATELET COUNT 123 x10^3/uL (140-400); RED BLOOD COUNT 2.34 x10^6/uL (3.50-5.40); RED CELL DISTRIBUTION WIDTH 19.3 % (11.5-14.5)
[2020-03-08 05:15] LABS: ALBUMIN 2.9 g/dL (3.4-5.0); ALBUMIN/GLOBULIN RATIO 0.6 (1.0-1.7); CREATININE 4.5 mg/dL (0.6-1.0); GFR 11.9; POTASSIUM 3.9 mmol/L (3.5-5.1); TOTAL BILIRUBIN 0.5 mg/dL (0.2-1.0)
[2020-03-08] MEDS: PANTOPRAZOLE 40 MG TABLET.DR. PO SCH ×2 (06:33→09:05)
[2020-03-08 07:25] VITALS: BP 132/67
[2020-03-08] MEDS: FOLIC ACID 1 MG TABLET. PO SCH (09:05)
[2020-03-08] MEDS: CARVEDILOL 12.5 MG TABLET. PO SCH ×2 (09:06→16:53)
--- NOTE | 2020-03-08 09:40 | NUR ---
SW following. Discussed with RN, dialysis today. Awaiting COVID-19 result for return to dialysis at [facility], [place], [place] (ph: [phone], fax: [phone]). Pt having shoulder xrays today too. Pt wanting to go home. SW will continue to follow.
--- NOTE | 2020-03-08 09:53 | PDOC2 ---
CONSULT Date of Consult Date of Consult DATE: 03/08/20 TIME: 08:55 Consult: Hematology oncology, Dr. Carter Reason: Anemia HPI: She is a 64-year-old female with anemia, severe, chronic, admitted from HD due to Hb <7, improved w/ 2 unit transfusion, assoc w/ shoulder pain but no anemia sx. though plt and wbc low. She remains off NSAIDs, she did not f/u w/ her [facility] PCM though he called to get her scheduled. Past medical history: ASCUS History of hepatitis C Hepatitis A immune Cirrhosis Immature platelet fraction has been increased in the past Elevated IgG with negative SPEP and UPEP's in the past most recently 2014 Hypothyroidism Hypertension and diabetes versus cast nephropathy causing end-stage renal disease on dialysis Anemia with frequent transfusions and mild pancytopenia Obesity History of C. difficile Hyperparathyroidism History of alcohol and drug abuse Stanley's esophagus Anemia of renal insufficiency Rheumatoid arthritis GERD Hypertension Hyperlipidemia Carpal tunnel Varices with banding in the past Diabetes mellitus Depression and anxiety Dementia History of menorrhagia in the past History of pancreatitis insomnia Surgical history: EGD, many, in May 2019 she had NSAID induced ulcer Colonoscopy, 2019 Kidney biopsy Tonsillectomy Knee surgery Partial hysterectomy Right femur fracture surgery IR angio coil in the past Hemodialysis fistula section Allergies: No known drug allergies Medications: See list attached Family history: Mom with unknown cancer, father with lung cancer, also diabetes and hypertension and hyperlipidemia run in the family Social history: History of heavy alcohol in the past, no tobacco, lives at home, grandkids visit, now occas wine on celebrations Review of systems: She denies any bleeding, does have trouble sleeping, shoulder pain, itching, o/w rest of 10 pt ROS is negative. Physical exam: Vitals: reviewed, no fevers Gen: NAD, elderly black female, sitting in chair HEENT: some teething missing, nc/at Nodes: no palp LNs neck or axilla Lungs: breathing comfortably on RA w/ no resp distress Cardiac: RRR Abd: s/nt/nd Ext: edema BLE, symmetric skin: warm, dry Psych: pleasant mood and affect Neuro: A&Ox3 Labs: CBC shows wbc 2.0, Hb 7.6, plt 123, MCV 98 retic 2.7 ANC 1200 ALC 500 Cr 4.5 H. pylori negative in the stool May 2019 B12 470 recently ARNOLD negative in the past Normal folate in 2018 SPEP negative 2019 TSH 5.5 in Apr ferr 322, sat 10% in Apr Hemoglobin has been as low as 4.2 in the past Radiology: Chest x-ray shows chronic interstitial prominence, stable cardiac silhouette on Jan Labs and radiology reviewed, case discussed with patient, records reviewed in [facility] and her case was discussed with her PCM at recently Assessment and plan: She is a 64-year-old female with chronic recurrent anemia and many transfusions, >35 units of blood at least since January 2019, she also has a history of GI bleeding and in May 2019 NSAID induced ulcer and was told to stop NSAIDs and i do believe now, she is likely avoiding NSAIDs but now has pancytopenia mild, BMBx recommended, she declines today Anemia: f/u CBCs through nephro (unreliable f/u w/ PCM, she doesn't return appt requests), TSH sl elev, defer to primary, Fe sat low, defer epo and Fe to nephro since she's on HD, offered bone marrow biopsy again today, but she declines today, will think about it. History of GI bleeding in the past: Recommend no NSAIDs, GI is involved, defer scopes to them as needed End-stage renal disease: On dialysis, rec getting iron and Aranesp per nephrology Disposition: today? she may f/u w/ me prn, i do rec BMBx, she declines, tomorrow is my last day here, can work w/ new heme docs here or call [phone] to schedule and BMBx and f/u w/ me if she is amenable, i wrote my number on her board thank you kindly and please do not hesitate to call w/ further ?s. Past Medical History Cardiovascular: HTN, Hyperlipidemia Pulmonary: No pertinent hx GI: Constipation, GERD, GI bleed Heme/Onc: Anemia NOS Hepatobiliary: No pertinent hx, Hep A/B/C Psych: Addictions Rheumatologic: Rheumatoid arthritis Infectious disease: No pertinent hx Renal/: Chronic renal failure, Hematuria Endocrine: Diabetes, Hyperparathyroidism Past Surgical History Past Surgical History: Cholecystectomy, Tonsillectomy, Hysterectomy, Other Family History Family History: Alcohol Abuse, High Cholestrol, Hypertension, Family History Unknown Social History No ALCOHOL: other (heavy in the past) Drugs: None Current Problem List Problem List Problems Medical Problems: (1) ESRD (end stage renal disease) on dialysis Status: Chronic (2) Symptomatic anemia Status: Acute Current Medications Current Medications Current Medications Ondansetron HCl (Zofran) 4 mg PRN Q8HRS PRN IV NAUSEA/VOMITING; Start 03/05/20 at 16:45; Stop 03/05/20 at 17:01; Status DC Acetaminophen (Tylenol) 650 mg PRN Q4HRS PRN PO FEVER > 100.3'F; Start 03/05/20 at 16:45; Stop 03/05/20 at 17:01; Status DC Ondansetron HCl (Zofran) 4 mg PRN Q4HRS PRN IV NAUSEA/VOMITING Last administered on 03/06/20at 14:30; Start 03/05/20 at 17:00 Zolpidem Tartrate (Ambien) 5 mg PRN QHS PRN PO INSOMNIA; Start 03/05/20 at 17:00 Acetaminophen (Tylenol) 650 mg PRN Q4HRS PRN PO TEMP OVER 100.4F OR MILD PAIN; Start 03/05/20 at 17:00 Docusate Sodium (Colace) 100 mg PRN BID PRN PO CONSTIPATION; Start 03/05/20 at 17:00 Albuterol Sulfate (Ventolin Neb Soln) 2.5 mg PRN Q4HRS PRN NEB SHORTNESS OF BREATH; Start 03/05/20 at 17:00; Stop 03/05/20 at 17:02; Status DC Guaifenesin (Robitussin) 200 mg PRN Q4HRS PRN PO COUGH; Start 03/05/20 at 17:00 Lorazepam (Ativan) 0.5 mg PRN Q4HRS PRN PO ANXIETY / AGITATION; Start 03/05/20 at 17:00 Acetaminophen (Tylenol) 500 mg PRN Q6HRS PRN PO pain or fever; Start 03/05/20 at 17:00; Status UNV Albuterol Sulfate (Ventolin Neb Soln) 2.5 mg PRN Q2HRS PRN NEB SOB / WHILE AWAKE; Start 03/05/20 at 17:00 Oxycodone/ Acetaminophen (Percocet 7.5/ 325) 1 tab PRN QID PRN PO MODERATE - SEVERE PAIN Last administered on 03/07/20at 21:14; Start 03/05/20 at 17:00 Pantoprazole Sodium (Protonix) 40 mg DAILYAC PO Last administered on 03/08/20at 06:33; Start 03/06/20 at 07:30 Carvedilol (Coreg) 25 mg BIDWMEALS PO Last administered on 03/07/20at 15:22; Start 03/05/20 at 20:00 Folic Acid (Folic Acid) 1 mg DAILY PO Last administered on 03/06/20at 09:29; Start 03/06/20 at 09:00 Sodium Chloride 1,000 ml @ 1,000 mls/hr Q1H PRN IV hypotension; Start 03/07/20 at 07:44; Stop 03/07/20 at 13:43; Status DC Acetaminophen (Tylenol) 500 mg 1X PRN PRN PO MILD PAIN / TEMP > 100.3'F; Start 03/07/20 at 07:45; Stop 03/08/20 at 07:44; Status DC Diphenhydramine HCl (Benadryl) 25 mg 1X PRN PRN IV ITCHING; Start 03/07/20 at 07:45; Stop 03/08/20 at 07:44; Status DC Diphenhydramine HCl (Benadryl) 25 mg 1X PRN PRN IV ITCHING; Start 03/07/20 at 07:45; Stop 03/08/20 at 07:44; Status DC Sodium Chloride 1,000 ml @ 400 mls/hr Q2H30M PRN IV PATENCY; Start 03/07/20 at 07:44; Stop 03/07/20 at 19:43; Status DC Info (PHARMACY MONITORING -- do not chart) 1 each PRN DAILY PRN MC SEE COMMENTS; Start 03/07/20 at 07:45 Active Scripts Active Proair Hfa (Albuterol Sulfate) 8.5 Gm Hfa.aer.ad 2.5 Mg NEB PRN Q2HRS PRN 30 D ays Pantoprazole Sodium (Pantoprazole Sodium) 40 Mg Tablet.dr 40 Mg PO DAILYAC 30 Days Reported Carvedilol 25 Mg Tablet 25 Mg PO BIDWMEALS Folic Acid 0.4 Mg Tablet 0.4 Mg PO DAILY Acetaminophen 500 Mg Tablet 1 Tab PO PRN Q6HRS PRN 15 Days Percocet 7.5-325 Mg Tablet (Oxycodone/Acetaminophen) 1 Each Tablet 1 Tab PO PRN QID PRN MDD 3 Tablet(s) 5 Days Allergies Allergies: Coded Allergies: No Known Drug Allergies (Unverified , 12/30/19) Vitals VITALS Vital Signs Date Time Temp Pulse Resp B/P (MAP) Pulse Ox O2 Delivery O2 Flow Rate FiO2 03/08/20 07:58 98 Room Air 03/08/20 07:25 98.3 66 16 132/67 (88) 98.3 Labs Labs Laboratory Tests Test 03/06/20 11:25 03/06/20 14:50 03/06/20 16:37 03/06/20 19:59 Glucose (Fingerstick) 123 mg/dL (70-99) 92 mg/dL (70-99) 122 mg/dL (70-99) Hemoglobin 7.3 g/dL (12.0-15.5) Hematocrit 21.5 % (36.0-47.0) Mean Corpuscular Hemoglobin Concent 34 g/dL (31-37) Test 03/07/20 02:50 03/07/20 06:57 03/07/20 16:41 03/07/20 21:49 White Blood Count 2.1 x10^3/uL (4.0-11.0) Red Blood Count 2.38 x10^6/uL (3.50-5.70) Hemoglobin 7.7 g/dL (12.0-15.5) Hematocrit 22.7 % (36.0-47.0) Mean Corpuscular Volume 96 fL (79-100) Mean Corpuscular Hemoglobin 33 pg (25-35) Mean Corpuscular Hemoglobin Concent 34 g/dL (31-37) Red Cell Distribution Width 19.6 % (11.5-14.5) Platelet Count 137 x10^3/uL (140-400) Neutrophils (%) (Auto) 57 % (31-73) Lymphocytes (%) (Auto) 27 % (24-48) Monocytes (%) (Auto) 13 % (0-9) Eosinophils (%) (Auto) 3 % (0-3) Basophils (%) (Auto) 1 % (0-3) Neutrophils # (Auto) 1.2 x10^3/uL (1.8-7.7) Lymphocytes # (Auto) 0.6 x10^3/uL (1.0-4.8) Monocytes # (Auto) 0.3 x10^3/uL (0.0-1.1) Eosinophils # (Auto) 0.1 x10^3/uL (0.0-0.7) Basophils # (Auto) 0.0 x10^3/uL (0.0-0.2) Absolute Reticulocyte Count 0.063 x10^6/uL (0.020-0.120) Percent Reticulocyte Count 2.7 % (0.5-2.3) Immature Reticulocyte Fraction 0.55 (0.20-0.60) Sodium Level 134 mmol/L (136-145) Potassium Level 4.0 mmol/L (3.5-5.1) Chloride Level 93 mmol/L (98-107) Carbon Dioxide Level 27 mmol/L (21-32) Anion Gap 14 (6-14) Blood Urea Nitrogen 62 mg/dL (7-20) Creatinine 7.2 mg/dL (0.6-1.0) Estimated GFR (Cockcroft-Gault) 6.9 Glucose Level 93 mg/dL (70-99) Calcium Level 9.0 mg/dL (8.5-10.1) Phosphorus Level 6.0 mg/dL (2.6-4.7) Albumin 2.9 g/dL (3.4-5.0) Glucose (Fingerstick) 100 mg/dL (70-99) 159 mg/dL (70-99) 118 mg/dL (70-99) Test 03/08/20 03:50 03/08/20 07:25 White Blood Count 2.0 x10^3/uL (4.0-11.0) Red Blood Count 2.34 x10^6/uL (3.50-5.40) Hemoglobin 7.6 g/dL (12.0-15.5) Hematocrit 22.8 % (36.0-47.0) Mean Corpuscular Volume 98 fL (79-100) Mean Corpuscular Hemoglobin 33 pg (25-35) Mean Corpuscular Hemoglobin Concent 33 g/dL (31-37) Red Cell Distribution Width 19.3 % (11.5-14.5) Platelet Count 123 x10^3/uL (140-400) Neutrophils (%) (Auto) 57 % (31-73) Lymphocytes (%) (Auto) 23 % (24-48) Monocytes (%) (Auto) 16 % (0-9) Eosinophils (%) (Auto) 3 % (0-3) Basophils (%) (Auto) 1 % (0-3) Neutrophils # (Auto) 1.2 x10^3/uL (1.8-7.7) Lymphocytes # (Auto) 0.5 x10^3/uL (1.0-4.8) Monocytes # (Auto) 0.3 x10^3/uL (0.0-1.1) Eosinophils # (Auto) 0.1 x10^3/uL (0.0-0.7) Basophils # (Auto) 0.0 x10^3/uL (0.0-0.2) Sodium Level 136 mmol/L (136-145) Potassium Level 3.9 mmol/L (3.5-5.1) Chloride Level 96 mmol/L (98-107) Carbon Dioxide Level 32 mmol/L (21-32) Anion Gap 8 (6-14) Blood Urea Nitrogen 27 mg/dL (7-20) Creatinine 4.5 mg/dL (0.6-1.0) Estimated GFR (Cockcroft-Gault) 11.9 BUN/Creatinine Ratio 6 (6-20) Glucose Level 115 mg/dL (70-99) Calcium Level 9.0 mg/dL (8.5-10.1) Total Bilirubin 0.5 mg/dL (0.2-1.0) Aspartate Amino Transf (AST/SGOT) 31 U/L (15-37) Alanine Aminotransferase (ALT/SGPT) 12 U/L (14-59) Alkaline Phosphatase 162 U/L (46-116) Total Protein 8.0 g/dL (6.4-8.2) Albumin 2.9 g/dL (3.4-5.0) Albumin/Globulin Ratio 0.6 (1.0-1.7) Glucose (Fingerstick) 121 mg/dL (70-99) Laboratory Tests Test 03/07/20 16:41 03/07/20 21:49 03/08/20 03:50 03/08/20 07:25 Glucose (Fingerstick) 159 mg/dL (70-99) 118 mg/dL (70-99) 121 mg/dL (70-99) White Blood Count 2.0 x10^3/uL (4.0-11.0) Red Blood Count 2.34 x10^6/uL (3.50-5.40) Hemoglobin 7.6 g/dL (12.0-15.5) Hematocrit 22.8 % (36.0-47.0) Mean Corpuscular Volume 98 fL (79-100) Mean Corpuscular Hemoglobin 33 pg (25-35) Mean Corpuscular Hemoglobin Concent 33 g/dL (31-37) Red Cell Distribution Width 19.3 % (11.5-14.5) Platelet Count 123 x10^3/uL (140-400) Neutrophils (%) (Auto) 57 % (31-73) Lymphocytes (%) (Auto) 23 % (24-48) Monocytes (%) (Auto) 16 % (0-9) Eosinophils (%) (Auto) 3 % (0-3) Basophils (%) (Auto) 1 % (0-3) Neutrophils # (Auto) 1.2 x10^3/uL (1.8-7.7) Lymphocytes # (Auto) 0.5 x10^3/uL (1.0-4.8) Monocytes # (Auto) 0.3 x10^3/uL (0.0-1.1) Eosinophils # (Auto) 0.1 x10^3/uL (0.0-0.7) Basophils # (Auto) 0.0 x10^3/uL (0.0-0.2) Sodium Level 136 mmol/L (136-145) Potassium Level 3.9 mmol/L (3.5-5.1) Chloride Level 96 mmol/L (98-107) Carbon Dioxide Level 32 mmol/L (21-32) Anion Gap 8 (6-14) Blood Urea Nitrogen 27 mg/dL (7-20) Creatinine 4.5 mg/dL (0.6-1.0) Estimated GFR (Cockcroft-Gault) 11.9 BUN/Creatinine Ratio 6 (6-20) Glucose Level 115 mg/dL (70-99) Calcium Level 9.0 mg/dL (8.5-10.1) Total Bilirubin 0.5 mg/dL (0.2-1.0) Aspartate Amino Transf (AST/SGOT) 31 U/L (15-37) Alanine Aminotransferase (ALT/SGPT) 12 U/L (14-59) Alkaline Phosphatase 162 U/L (46-116) Total Protein 8.0 g/dL (6.4-8.2) Albumin 2.9 g/dL (3.4-5.0) Albumin/Globulin Ratio 0.6 (1.0-1.7) JESSICA CARTER MD March 08, 2020 09:52
--- NOTE | 2020-03-08 10:11 | PDOC ---
Subjective: Subjective: Still without GI complaints. Says she's going home today and considering bone biopsy. Objective: Vital Signs: Vital Signs Date Time Temp Pulse Resp B/P (MAP) Pulse Ox O2 Delivery O2 Flow Rate FiO2 03/08/20 09:06 66 132/67 03/08/20 07:58 98 Room Air 03/08/20 07:25 98.3 16 98.3 Labs: Laboratory Tests Test 03/07/20 16:41 03/07/20 21:49 03/08/20 03:50 03/08/20 07:25 Glucose (Fingerstick) 159 mg/dL 118 mg/dL 121 mg/dL White Blood Count 2.0 x10^3/uL Red Blood Count 2.34 x10^6/uL Hemoglobin 7.6 g/dL Hematocrit 22.8 % Mean Corpuscular Volume 98 fL Mean Corpuscular Hemoglobin 33 pg Mean Corpuscular Hemoglobin Concent 33 g/dL Red Cell Distribution Width 19.3 % Platelet Count 123 x10^3/uL Neutrophils (%) (Auto) 57 % Lymphocytes (%) (Auto) 23 % Monocytes (%) (Auto) 16 % Eosinophils (%) (Auto) 3 % Basophils (%) (Auto) 1 % Neutrophils # (Auto) 1.2 x10^3/uL Lymphocytes # (Auto) 0.5 x10^3/uL Monocytes # (Auto) 0.3 x10^3/uL Eosinophils # (Auto) 0.1 x10^3/uL Basophils # (Auto) 0.0 x10^3/uL Sodium Level 136 mmol/L Potassium Level 3.9 mmol/L Chloride Level 96 mmol/L Carbon Dioxide Level 32 mmol/L Anion Gap 8 Blood Urea Nitrogen 27 mg/dL Creatinine 4.5 mg/dL Estimated GFR (Cockcroft-Gault) 11.9 BUN/Creatinine Ratio 6 Glucose Level 115 mg/dL Calcium Level 9.0 mg/dL Total Bilirubin 0.5 mg/dL Aspartate Amino Transf (AST/SGOT) 31 U/L Alanine Aminotransferase (ALT/SGPT) 12 U/L Alkaline Phosphatase 162 U/L Total Protein 8.0 g/dL Albumin 2.9 g/dL Albumin/Globulin Ratio 0.6 Imaging: Shoulder X-Ray pending PE: GEN: NAD, dressed and in recliner LUNGS: CTAB HEART: RRR ABD: S/ND/NT NEURO/PSYCH: A & O 3 A/P: Chronic anemia H/o recurrent UGI bleeding, PUD -- DC per primary on PPI and iron. Hemodynamically unstable?: No Is patient in severe pain?: No Is NPO status required?: No IRIS SZYMANSKI March 08, 2020 10:11
[2020-03-08 10:39] VITALS: BP 131/55
[2020-03-08] MEDS: oxyCODONE/APAP 7.5/325 1 TAB TABLET PO PRN (10:40)
[2020-03-08] MEDS ORDERED: FERR325T72 PO (10:50)
--- NOTE | 2020-03-08 10:50 | RAD ---
SHOULDER BILAT 2+V History: Pain Technique: 3 views bilateral shoulders. Comparison: September 22, 2019. Findings: Left shoulder: Severe left glenohumeral DJD, similar compared to prior. Mild left acromioclavicular DJD. Lucent lesion within the left humeral head, may relate to subchondral cystic changes. Normal alignment of the left glenohumeral and acromioclavicular joints. No fracture. Soft tissues unremarkable. Right shoulder: Mild right acromioclavicular and glenohumeral DJD. Normal alignment of the right glenohumeral and acromioclavicular joints. No fracture. Soft tissues unremarkable. Impression: 1. No acute osseous abnormalities. 2. Severe left and mild right glenohumeral DJD. 3. Mild bilateral acromioclavicular DJD. Electronically signed by: Ori Colin DO (03/08/2020 10:47 AM) [id number]
--- NOTE | 2020-03-08 10:56 | NUR ---
IP: Pt is COVID negative.
--- NOTE | 2020-03-08 10:57 | PDOC3 ---
Discharge Summary Visit Information Date of Admission: March 06, 2020 Date of Discharge: March 08, 2020 Final Diagnosis Problems Medical Problems: (1) ESRD (end stage renal disease) on dialysis Status: Chronic (2) Symptomatic anemia Status: Acute Brief Hospital Course Allergies Allergies Coded Allergies Type Severity Reaction Last Updated Verified No Known Drug Allergies 12/30/19 No Vital Signs GENERAL: No apparent distress. Alert and oriented. HEENT: Head normocephalic, atraumatic. NECK: Supple LUNGS: Clear to auscultation. HEART: RRR, S1, S2 present, pulses intact ABDOMEN: Soft, positive bowel sounds. EXTREMITIES: No cyanosis or edema. NEUROLOGIC: Normal speech, normal tone PSYCHIATRIC: Normal affect, normal mood. SKIN: No ulceration. Vital Signs Date Time Temp Pulse Resp B/P (MAP) Pulse Ox O2 Delivery O2 Flow Rate FiO2 03/08/20 10:40 98 Room Air 03/08/20 10:39 98.5 67 17 131/55 (80) 98.5 Lab Results Laboratory Tests Test 03/06/20 11:25 03/06/20 14:50 03/06/20 16:37 03/06/20 19:59 Glucose (Fingerstick) 123 mg/dL (70-99) 92 mg/dL (70-99) 122 mg/dL (70-99) Hemoglobin 7.3 g/dL (12.0-15.5) Hematocrit 21.5 % (36.0-47.0) Mean Corpuscular Hemoglobin Concent 34 g/dL (31-37) Test 03/07/20 02:50 03/07/20 06:57 03/07/20 16:41 03/07/20 21:49 White Blood Count 2.1 x10^3/uL (4.0-11.0) Red Blood Count 2.38 x10^6/uL (3.50-5.70) Hemoglobin 7.7 g/dL (12.0-15.5) Hematocrit 22.7 % (36.0-47.0) Mean Corpuscular Volume 96 fL (79-100) Mean Corpuscular Hemoglobin 33 pg (25-35) Mean Corpuscular Hemoglobin Concent 34 g/dL (31-37) Red Cell Distribution Width 19.6 % (11.5-14.5) Platelet Count 137 x10^3/uL (140-400) Neutrophils (%) (Auto) 57 % (31-73) Lymphocytes (%) (Auto) 27 % (24-48) Monocytes (%) (Auto) 13 % (0-9) Eosinophils (%) (Auto) 3 % (0-3) Basophils (%) (Auto) 1 % (0-3) Neutrophils # (Auto) 1.2 x10^3/uL (1.8-7.7) Lymphocytes # (Auto) 0.6 x10^3/uL (1.0-4.8) Monocytes # (Auto) 0.3 x10^3/uL (0.0-1.1) Eosinophils # (Auto) 0.1 x10^3/uL (0.0-0.7) Basophils # (Auto) 0.0 x10^3/uL (0.0-0.2) Absolute Reticulocyte Count 0.063 x10^6/uL (0.020-0.120) Percent Reticulocyte Count 2.7 % (0.5-2.3) Immature Reticulocyte Fraction 0.55 (0.20-0.60) Sodium Level 134 mmol/L (136-145) Potassium Level 4.0 mmol/L (3.5-5.1) Chloride Level 93 mmol/L (98-107) Carbon Dioxide Level 27 mmol/L (21-32) Anion Gap 14 (6-14) Blood Urea Nitrogen 62 mg/dL (7-20) Creatinine 7.2 mg/dL (0.6-1.0) Estimated GFR (Cockcroft-Gault) 6.9 Glucose Level 93 mg/dL (70-99) Calcium Level 9.0 mg/dL (8.5-10.1) Phosphorus Level 6.0 mg/dL (2.6-4.7) Albumin 2.9 g/dL (3.4-5.0) Glucose (Fingerstick) 100 mg/dL (70-99) 159 mg/dL (70-99) 118 mg/dL (70-99) Test 03/08/20 03:50 03/08/20 07:25 White Blood Count 2.0 x10^3/uL (4.0-11.0) Red Blood Count 2.34 x10^6/uL (3.50-5.40) Hemoglobin 7.6 g/dL (12.0-15.5) Hematocrit 22.8 % (36.0-47.0) Mean Corpuscular Volume 98 fL (79-100) Mean Corpuscular Hemoglobin 33 pg (25-35) Mean Corpuscular Hemoglobin Concent 33 g/dL (31-37) Red Cell Distribution Width 19.3 % (11.5-14.5) Platelet Count 123 x10^3/uL (140-400) Neutrophils (%) (Auto) 57 % (31-73) Lymphocytes (%) (Auto) 23 % (24-48) Monocytes (%) (Auto) 16 % (0-9) Eosinophils (%) (Auto) 3 % (0-3) Basophils (%) (Auto) 1 % (0-3) Neutrophils # (Auto) 1.2 x10^3/uL (1.8-7.7) Lymphocytes # (Auto) 0.5 x10^3/uL (1.0-4.8) Monocytes # (Auto) 0.3 x10^3/uL (0.0-1.1) Eosinophils # (Auto) 0.1 x10^3/uL (0.0-0.7) Basophils # (Auto) 0.0 x10^3/uL (0.0-0.2) Sodium Level 136 mmol/L (136-145) Potassium Level 3.9 mmol/L (3.5-5.1) Chloride Level 96 mmol/L (98-107) Carbon Dioxide Level 32 mmol/L (21-32) Anion Gap 8 (6-14) Blood Urea Nitrogen 27 mg/dL (7-20) Creatinine 4.5 mg/dL (0.6-1.0) Estimated GFR (Cockcroft-Gault) 11.9 BUN/Creatinine Ratio 6 (6-20) Glucose Level 115 mg/dL (70-99) Calcium Level 9.0 mg/dL (8.5-10.1) Total Bilirubin 0.5 mg/dL (0.2-1.0) Aspartate Amino Transf (AST/SGOT) 31 U/L (15-37) Alanine Aminotransferase (ALT/SGPT) 12 U/L (14-59) Alkaline Phosphatase 162 U/L (46-116) Total Protein 8.0 g/dL (6.4-8.2) Albumin 2.9 g/dL (3.4-5.0) Albumin/Globulin Ratio 0.6 (1.0-1.7) Glucose (Fingerstick) 121 mg/dL (70-99) Laboratory Tests Test 03/07/20 16:41 03/07/20 21:49 03/08/20 03:50 03/08/20 07:25 Glucose (Fingerstick) 159 mg/dL (70-99) 118 mg/dL (70-99) 121 mg/dL (70-99) White Blood Count 2.0 x10^3/uL (4.0-11.0) Red Blood Count 2.34 x10^6/uL (3.50-5.40) Hemoglobin 7.6 g/dL (12.0-15.5) Hematocrit 22.8 % (36.0-47.0) Mean Corpuscular Volume 98 fL (79-100) Mean Corpuscular Hemoglobin 33 pg (25-35) Mean Corpuscular Hemoglobin Concent 33 g/dL (31-37) Red Cell Distribution Width 19.3 % (11.5-14.5) Platelet Count 123 x10^3/uL (140-400) Neutrophils (%) (Auto) 57 % (31-73) Lymphocytes (%) (Auto) 23 % (24-48) Monocytes (%) (Auto) 16 % (0-9) Eosinophils (%) (Auto) 3 % (0-3) Basophils (%) (Auto) 1 % (0-3) Neutrophils # (Auto) 1.2 x10^3/uL (1.8-7.7) Lymphocytes # (Auto) 0.5 x10^3/uL (1.0-4.8) Monocytes # (Auto) 0.3 x10^3/uL (0.0-1.1) Eosinophils # (Auto) 0.1 x10^3/uL (0.0-0.7) Basophils # (Auto) 0.0 x10^3/uL (0.0-0.2) Sodium Level 136 mmol/L (136-145) Potassium Level 3.9 mmol/L (3.5-5.1) Chloride Level 96 mmol/L (98-107) Carbon Dioxide Level 32 mmol/L (21-32) Anion Gap 8 (6-14) Blood Urea Nitrogen 27 mg/dL (7-20) Creatinine 4.5 mg/dL (0.6-1.0) Estimated GFR (Cockcroft-Gault) 11.9 BUN/Creatinine Ratio 6 (6-20) Glucose Level 115 mg/dL (70-99) Calcium Level 9.0 mg/dL (8.5-10.1) Total Bilirubin 0.5 mg/dL (0.2-1.0) Aspartate Amino Transf (AST/SGOT) 31 U/L (15-37) Alanine Aminotransferase (ALT/SGPT) 12 U/L (14-59) Alkaline Phosphatase 162 U/L (46-116) Total Protein 8.0 g/dL (6.4-8.2) Albumin 2.9 g/dL (3.4-5.0) Albumin/Globulin Ratio 0.6 (1.0-1.7) Brief Hospital Course 64-year-old female with chronic recurrent anemia and many transfusions, >35 units of blood at least since January 2019, she also has a history of GI bleeding and in May 2019 NSAID induced ulcer and was told to stop NSAIDs and i do believe now, she is likely avoiding NSAIDs. noted to have pancytopenia. patient received 2 units of blood during hospitalization here. Hb imprved to 7.6 after transfusion. defer to nephro regarding EPO. will provide with iron at discharge. she is to continue PPI therapy. seen by GI and no plans for scope. patient got HD while hospitalized. oncology saw patient and patient declined bone marrow bx. will follow up as outpatient. home meds restarted. noted sightly elevated TSH, will need to repeat as outpatient. patient reports bilateral shoulder pain and xray ordered prior to discharge. patient will be discharged following HD today with outpatient onc follow up. needs repeat Hb as outpatient. script for iron sent to pharmacy. apprec gi and onc consulations. stable for dc home. Discharge Information Condition at Discharge: Stable Disposition/Orders: D/C to Home Scheduled Carvedilol (Carvedilol) 25 Mg Tablet, 25 MG PO BIDWMEALS for CARDIAC, (Reported) Entered as Reported by: MY NÚÑEZ on 03/05/201847 Last Action: Converted on 03/05/201847 by MY NÚÑEZ Ferrous Sulfate (Feosol) 325 Mg Tablet, 325 MG PO BIDWMEALS for anemia for 60 Days, #120 Prescribed by: BERNARDO NG MD on 03/08/20 1050 Folic Acid (Folic Acid) 0.4 Mg Tablet, 0.4 MG PO DAILY for supplement, (Reported) Entered as Reported by: MY NÚÑEZ on 03/05/201846 Last Action: Converted on 03/05/201847 by MY NÚÑEZ Pantoprazole Sodium (Pantoprazole Sodium ) 40 Mg Tablet.dr, 40 MG PO DAILYAC for Bleeding ulcer for 30 Days, #30 Ref 5 Prescribed by: MELY OLVERA MD on 07/04/19 1457 Last Action: Continued on 03/05/201658 by AJ FELTON MD Scheduled PRN Acetaminophen (Acetaminophen) 500 Mg Tablet, 1 TAB PO PRN Q6HRS PRN for pain or fever for 15 Days, #60 Ref 0 (Reported) Entered as Reported by: VIOLETTA LINARES on 12/30/19 1038 Last Action: Continued on 03/05/201658 by AJ FELTON MD Albuterol Sulfate (Proair Hfa) 8.5 Gm Hfa.aer.ad, 2.5 MG NEB PRN Q2HRS PRN for SOB / WHILE AWAKE for 30 Days, #30 Prescribed by: ASHIA MOSS MD on 09/27/19 1601 Last Action: Continued on 03/05/201658 by AJ FELTON MD Oxycodone/Apap 7.5-325 (Percocet 7.5-325 Mg Tablet ) 1 Each Tablet, 1 TAB PO PRN QID PRN for PAIN MDD 3 Tablet(s) for 5 Days, #15 Ref 0 (Reported) Entered as Reported by: GILA GUTHRIE RN on 11/11/19 0566 Last Action: Continued on 03/05/201658 by AJ FELTON MD Hemodynamically unstable?: No Is patient in severe pain?: No Is NPO status required?: No BERNARDO NG MD March 08, 2020 10:57
[2020-03-08] MEDS ORDERED: IV NORMAL SALINE 1000ML BAG 1,000 ML IV PRN ×2 (11:00)
[2020-03-08] MEDS ORDERED: ALBUMIN HUMAN 25% 200 ML IV PRN (11:00)
[2020-03-08] MEDS ORDERED: DIALYSIS PATIENT. MC PRN ×2 (11:00)
--- NOTE | 2020-03-08 14:07 | PDOC ---
SUBJECTIVE ROS Seen on HD, No complaints OBJECTIVE Vital Signs Vital Signs Date Time Temp Pulse Resp B/P (MAP) Pulse Ox O2 Delivery O2 Flow Rate FiO2 03/08/20 11:32 98 Room Air 03/08/20 10:39 98.5 67 17 131/55 (80) 98.5 I & 0 Intake and Output 03/08/20 07:00 Intake Total 650 ml Balance 650 ml Intake Oral 650 ml PHYSICAL EXAM Physical Exam GEN.: No apparent distress. HEENT: OM moist NECK: Supple. LUNGS: Clear to auscultation, non labored HEART: RRR, S1, S2 present. ABDOMEN: Soft, nontender. Positive bowel sounds. EXTREMITIES: No LE edema NEUROLOGIC: grossly normal SKIN: No rash No CVA or SP tenderness, No Carbajal DIAGNOSIS/ASSESSMENT Assessment & Plan ESRD 2/ 2 DM and HTN, On TTS schedule seen on HD t , tolerating well, Discussed with Kesha Anemia -- No active gastrointestinal bleeding, s/p PRBC Gets OSMIN as out patient on Dialysis Diabetes-Type II, History of GERD and GI Bleed Essential Hypertension- stable, antihypertensives COMMENT/RELEVANT DATA Meds Current Medications Medications (Trade) Dose Ordered Sig/Kimberly Start Time Stop Time Status Last Admin Dose Admin Acetaminophen (Tylenol) 500 mg 1X PRN PRN 03/07/20 07:45 03/08/20 07:44 DC Albumin Human 200 ml @ 200 mls/hr 1X PRN PRN 03/08/20 11:00 03/08/20 16:59 Albuterol Sulfate (Ventolin Neb Soln) 2.5 mg PRN Q2HRS PRN 03/05/20 17:00 Carvedilol (Coreg) 25 mg BIDWMEALS 03/05/20 20:00 03/08/20 09:06 25 MG Diphenhydramine HCl (Benadryl) 25 mg 1X PRN PRN 03/07/20 07:45 03/08/20 07:44 DC Docusate Sodium (Colace) 100 mg PRN BID PRN 03/05/20 17:00 Ferrous Sulfate (Feosol) 325 mg BIDWMEALS 03/08/20 17:00 Folic Acid (Folic Acid) 1 mg DAILY 03/06/20 09:00 03/08/20 09:05 1 MG Guaifenesin (Robitussin) 200 mg PRN Q4HRS PRN 03/05/20 17:00 Info (PHARMACY MONITORING -- do not chart) 1 each PRN DAILY PRN 03/08/20 11:00 Lorazepam (Ativan) 0.5 mg PRN Q4HRS PRN 03/05/20 17:00 Ondansetron HCl (Zofran) 4 mg PRN Q4HRS PRN 03/05/20 17:00 03/06/20 14:30 4 MG Oxycodone/ Acetaminophen (Percocet 7.5/ 325) 1 tab PRN QID PRN 03/05/20 17:00 03/08/20 10:40 1 TAB Pantoprazole Sodium (Protonix) 40 mg DAILYAC 03/06/20 07:30 03/08/20 09:05 40 MG Sodium Chloride 1,000 ml @ 400 mls/hr Q2H30M PRN 03/08/20 11:00 03/08/20 22:59 Zolpidem Tartrate (Ambien) 5 mg PRN QHS PRN 03/05/20 17:00 Lab Laboratory Tests Test 03/07/20 14:10 03/07/20 16:41 03/07/20 21:49 03/08/20 03:50 Coronavirus (COVID-19)(PCR) See separate report Glucose (Fingerstick) 159 mg/dL (70-99) 118 mg/dL (70-99) White Blood Count 2.0 x10^3/uL (4.0-11.0) Red Blood Count 2.34 x10^6/uL (3.50-5.40) Hemoglobin 7.6 g/dL (12.0-15.5) Hematocrit 22.8 % (36.0-47.0) Mean Corpuscular Volume 98 fL (79-100) Mean Corpuscular Hemoglobin 33 pg (25-35) Mean Corpuscular Hemoglobin Concent 33 g/dL (31-37) Red Cell Distribution Width 19.3 % (11.5-14.5) Platelet Count 123 x10^3/uL (140-400) Neutrophils (%) (Auto) 57 % (31-73) Lymphocytes (%) (Auto) 23 % (24-48) Monocytes (%) (Auto) 16 % (0-9) Eosinophils (%) (Auto) 3 % (0-3) Basophils (%) (Auto) 1 % (0-3) Neutrophils # (Auto) 1.2 x10^3/uL (1.8-7.7) Lymphocytes # (Auto) 0.5 x10^3/uL (1.0-4.8) Monocytes # (Auto) 0.3 x10^3/uL (0.0-1.1) Eosinophils # (Auto) 0.1 x10^3/uL (0.0-0.7) Basophils # (Auto) 0.0 x10^3/uL (0.0-0.2) Sodium Level 136 mmol/L (136-145) Potassium Level 3.9 mmol/L (3.5-5.1) Chloride Level 96 mmol/L (98-107) Carbon Dioxide Level 32 mmol/L (21-32) Anion Gap 8 (6-14) Blood Urea Nitrogen 27 mg/dL (7-20) Creatinine 4.5 mg/dL (0.6-1.0) Estimated GFR (Cockcroft-Gault) 11.9 BUN/Creatinine Ratio 6 (6-20) Glucose Level 115 mg/dL (70-99) Calcium Level 9.0 mg/dL (8.5-10.1) Total Bilirubin 0.5 mg/dL (0.2-1.0) Aspartate Amino Transf (AST/SGOT) 31 U/L (15-37) Alanine Aminotransferase (ALT/SGPT) 12 U/L (14-59) Alkaline Phosphatase 162 U/L (46-116) Total Protein 8.0 g/dL (6.4-8.2) Albumin 2.9 g/dL (3.4-5.0) Albumin/Globulin Ratio 0.6 (1.0-1.7) Test 03/08/20 07:25 03/08/20 11:13 Glucose (Fingerstick) 121 mg/dL (70-99) 86 mg/dL (70-99) Results All relevant outside records, renal labs, imaging studies, telemetry/EKG's were reviewed. GINO TAN MD March 08, 2020 14:07
[2020-03-08] MEDS ORDERED: FERROUS SULFATE 325 MG TABLET. PO SCH (17:00)
--- NOTE | 2020-03-08 17:35 | NUR ---
Discharge Note: CESAR AGEE [place] Discharge instructions and discharge home medications reviewed with Patient and a copy given. All questions have been answered and understanding verbalized. The following instructions and handouts were given: information about follow up appointments, medications, plan of care, etc. Discontinued lines and drains: IV line in right forearm removed, catheter tip intact. Patient discharged to home with self care with family member, wheelchair used for mobility to discharge vehicle.
== END 2020-03-08 17:35 | disposition home or self-care (01) | DRG 808 ==
LOC: ER 14:54 → 4 NORTH 16:30 → OBSVTOIN 03-06 22:57
PROVIDERS: ADMIT Internal Medicine; ATTEND Internal Medicine
PROC: 30233N1 Transfusion of Nonautologous Red Blood Cells into Peripheral Vein, Percutaneous Approach (ICD-10-PCS; principal; 2020-03-06)
PROC: 5A1D70Z Performance of Urinary Filtration, Intermittent, Less than 6 Hours Per Day (ICD-10-PCS; 2020-03-07)
PROC: 5A1D70Z Performance of Urinary Filtration, Intermittent, Less than 6 Hours Per Day (ICD-10-PCS; 2020-03-08)
DX: D61.818 Other pancytopenia (principal); N18.6 End stage renal disease; I12.0 Hypertensive chronic kidney disease with stage 5 chronic kidney disease or end stage renal disease; N25.81 Secondary hyperparathyroidism of renal origin; D63.1 Anemia in chronic kidney disease; D72.819 Decreased white blood cell count, unspecified; E11.22 Type 2 diabetes mellitus with diabetic chronic kidney disease; E78.5 Hyperlipidemia, unspecified; F03.90 Unspecified dementia, unspecified severity, without behavioral disturbance, psychotic disturbance, mood disturbance, and anxiety; K22.70 Barrett's esophagus without dysplasia; K74.60 Unspecified cirrhosis of liver; M06.9 Rheumatoid arthritis, unspecified; Z83.3 Family history of diabetes mellitus; Z87.11 Personal history of peptic ulcer disease; Z87.442 Personal history of urinary calculi; Z90.711 Acquired absence of uterus with remaining cervical stump; Z99.2 Dependence on renal dialysis; E66.9 Obesity, unspecified; F32.9 Major depressive disorder, single episode, unspecified; F41.9 Anxiety disorder, unspecified; K21.9 Gastro-esophageal reflux disease without esophagitis; Z20.828 Contact with and (suspected) exposure to other viral communicable diseases
CPT/HCPCS: 36415; 80053; 80069; 82962; 85014; 85018; 85025; 85045; 86850; 86900; 86901; 86920; 87635; 94760; 99285; G0378; G0379; J2405; P9016; 73030-50

== ENCOUNTER 2020-04-04 08:24 | Inpatient (IN) | payer MEDICARE, MEDICAID ==
[~2020-04-04] VITALS: Ht 157.5 cm; Wt 86.4 kg
[2020-04-04] VITALS (10 sets, daily range): BP systolic 99–171; BP diastolic 42–74
[~2020-04-04 08:24] MED LIST changes: +FOLI0.4T2 PO
--- NOTE | 2020-04-04 08:54 | EKG ---
[facility] [address] [place] [address] Test Date: 2020-04-04 Test Time: 08:47:19 Pat Name: CESAR AGEE Department: Room: Gender: F [employer]: : 1955 Requested By: PAM PERALTA Order Number: [id number] Reading MD: Mitchel Vidal Measurements Intervals Warren Rate: 87 P: 90 CT: 186 QRS: 60 QRSD: 82 T: 16 QT: 376 QTc: 453 Interpretive Statements SINUS RHYTHM NONSPECIFIC ST-T WAVE CHANGES. Electronically Signed On 04-08-2020 15:59:59 CDT by Mitchel Vidal
[2020-04-04 09:02] LABS: BASO % 1 % (0-3); EOS % 2 % (0-3); LYMPH # 0.5 x10^3/uL (1.0-4.8); LYMPH % 20 % (24-48); MEAN CORPUSCULAR HEMOGLOBIN 35 pg (25-35); MEAN CORPUSCULAR HGB CONC 34 g/dL (31-37); MEAN CORPUSCULAR VOLUME 102 fL (79-100); MONO # 0.3 x10^3/uL (0.0-1.1); MONO % 11 % (0-9); NEUT # 1.7 x10^3/uL (1.8-7.7); NEUT % 66 % (31-73); PLATELET COUNT 154 x10^3/uL (140-400); RED BLOOD COUNT 1.33 x10^6/uL (3.50-5.40); RED CELL DISTRIBUTION WIDTH 21.4 % (11.5-14.5); WHITE BLOOD COUNT 2.6 x10^3/uL (4.0-11.0)
[2020-04-04 09:16] LABS: CALCIUM 8.8 mg/dL (8.5-10.1); CREATININE 8.4 mg/dL (0.6-1.0); GFR 5.8; POTASSIUM 4.9 mmol/L (3.5-5.1)
[2020-04-04 09:22] LABS: ALBUMIN 3.1 g/dL (3.4-5.0); ALBUMIN/GLOBULIN RATIO 0.6 (1.0-1.7); TOTAL BILIRUBIN 0.4 mg/dL (0.2-1.0); TOTAL PROTEIN 7.9 g/dL (6.4-8.2)
[2020-04-04 09:23] LABS: HEMATOCRIT 13.7 % (36.0-47.0); HEMOGLOBIN 4.7 g/dL (12.0-15.5)
--- NOTE | 2020-04-04 09:40 | RAD ---
EXAM: 3 Views Left Shoulder DATE: 04/04/2020 9:06 AM INDICATION: fall / Spl. Instructions: / History: COMPARISON: 09/22/2019 FINDINGS: There is no evidence for acute fracture or dislocation. AC joint is congruent. There is heterogeneous sclerosis of the left humeral head lucencies of the articular surface. In addition there is lucency within the glenoid. Humeral head is not high riding. Heart is enlarged. Aortic calcifications are seen. IMPRESSION: 1. No acute fracture or dislocation. 2. Large lucencies within the left humeral head and glenoid are favored to represent degenerative cystic change. However given the relatively rapid change compared to prior examination 09/22/2019, underlying infectious or erosive arthropathy is also a consideration. Electronically signed by: Jarod Hawkins MD (04/04/2020 9:37 AM) [id number]
--- NOTE | 2020-04-04 09:44 | RAD ---
AP portable chest radiograph 04/04/2020 Clinical History: Shortness of breath. An AP erect portable digital radiograph of the chest was obtained. Comparison study is dated 02/11/2020. The cardiac silhouette is mildly enlarged. The thoracic aorta is tortuous. Atherosclerotic calcification thoracic aorta is seen. No acute pulmonary infiltrate is noted. No pneumothorax or pleural effusion is seen. The osseous structures are unchanged. Impression: Cardiomegaly. No acute pulmonary infiltrate is seen. Electronically signed by: Leonardo Guerrero MD (04/04/2020 9:41 AM) [id number]
[2020-04-04 10:30] LABS: PROTHROMBIN TIME PATIENT 15.7 SEC (11.7-14.0)
--- NOTE | 2020-04-04 10:33 | PHYS DOC ---
Past Medical History Past Medical History: Anemia, Diabetes-Type II, GERD, GI Bleed, Hypertension, Kidney Stone, Pancreatitis, Pneumonia, Renal Failure, Other Additional Past Medical Histor: Ulcers,ESRD,C-DIFF,CIRRHOSIS Past Surgical History: Cholecystectomy, Other Additional Past Surgical Histo: dialysis shunt ulcers Smoking Status: Never Smoker Alcohol Use: Rarely Drug Use: None General Adult EDM: Chief Complaint: MULTIPLE COMPLAINTS HPI: HPI: 64-year-old female pmh esrd (MWF), DM, anemia (chronic and iron def), HTN and gerd, presents to the ED with multiple complaints including generalized weakness, exertional shortness of breath, with a fall on Saturday and complains of left shoulder pain. Patient states she missed dialysis on Saturday due to the fall. Ambulates with a walker. Reports she did not hit her head or lose consciousness. Has no routine primary care physician. Patient states "I feel so bad I just cannot move." States she started having dark stools yesterday. Poor historian-does not think she's on AC. EMR was reviewed and patient was discharged from the hospital March 08 for symptomatic anemia, has received over 35 blood transfusions in her lifetime. Does have a history of a GI bleed. ROS: Denies associated fever, chills, cough, hemoptysis, unilateral leg swelling, chest pain or pressure, nausea, vomiting, hematemesis, hematochezia, back pain, abdominal pain, headache, neck pain, syncope, diaphoresis. Review of Systems: Review of Systems: Constitutional: Denies fever or chills. [] Eyes: Denies change in visual acuity. [] HENT: Denies nasal congestion or sore throat. [] Respiratory: Denies cough or shortness of breath. [] Cardiovascular: Denies chest pain or edema. [] GI: Denies abdominal pain, nausea, vomiting, bloody stools or diarrhea. [] : Denies dysuria. [] Musculoskeletal: Denies back pain or joint pain. [] Integument: Denies rash. [] Neurologic: Denies headache, focal weakness or sensory changes. [] Endocrine: Denies polyuria or polydipsia. [] Lymphatic: Denies swollen glands. [] Psychiatric: Denies depression or anxiety. [] Heart Score: Risk Factors: Risk Factors: DM, Current or recent (<one month) smoker, HTN, HLP, family history of CAD, obesity. Risk Scores: Score 0 - 3: 2.5% MACE over next 6 weeks - Discharge Home Score 4 - 6: 20.3% MACE over next 6 weeks - Admit for Clinical Observation Score 7 - 10: 72.7% MACE over next 6 weeks - Early Invasive Strategies Allergies: Allergies: Allergies Coded Allergies Type Severity Reaction Last Updated Verified No Known Drug Allergies 12/30/19 No Physical Exam: PE: Constitutional: resting comfortably, non-toxic appearance, HENT: Normocephalic, atraumatic, bilateral external ears normal, oropharynx moist, no oral exudates, nose normal. [] Eyes: EOMI, conjunctiva normal, no discharge. [] Neck: Normal range of motion, no tenderness, supple, no stridor. [] Cardiovascular:Heart rate regular rhythm, no murmur [] Lungs & Thorax: Bilateral breath sounds clear to auscultation [] Abdomen: Bowel sounds normal, soft, no tenderness, no masses, no pulsatile masses. [] Skin: Warm, dry, no erythema, no rash. [] Back: No tenderness, no CVA tenderness. [] Extremities: No tenderness, no cyanosis, no clubbing, ROM intact, no edema. [] Neurologic: Alert and oriented X 3, normal motor function, normal sensory function, no focal deficits noted. [] Psychologic: Affect normal, judgement normal, mood normal. [] : External rectal exam normal, dark brown stool with ADONIS-scant in rectal vault Current Patient Data: Labs: Laboratory Tests Test 04/04/20 08:45 White Blood Count 2.6 x10^3/uL (4.0-11.0) L Red Blood Count 1.33 x10^6/uL (3.50-5.40) L Hemoglobin 4.7 g/dL (12.0-15.5) *L Hematocrit 13.7 % (36.0-47.0) *L Mean Corpuscular Volume 102 fL (79-100) H Mean Corpuscular Hemoglobin 35 pg (25-35) Mean Corpuscular Hemoglobin Concent 34 g/dL (31-37) Red Cell Distribution Width 21.4 % (11.5-14.5) H Platelet Count 154 x10^3/uL (140-400) Neutrophils (%) (Auto) 66 % (31-73) Lymphocytes (%) (Auto) 20 % (24-48) L Monocytes (%) (Auto) 11 % (0-9) H Eosinophils (%) (Auto) 2 % (0-3) Basophils (%) (Auto) 1 % (0-3) Neutrophils # (Auto) 1.7 x10^3/uL (1.8-7.7) L Lymphocytes # (Auto) 0.5 x10^3/uL (1.0-4.8) L Monocytes # (Auto) 0.3 x10^3/uL (0.0-1.1) Eosinophils # (Auto) 0.0 x10^3/uL (0.0-0.7) Basophils # (Auto) 0.0 x10^3/uL (0.0-0.2) Platelet Estimate Pending Sodium Level 128 mmol/L (136-145) L Potassium Level 4.9 mmol/L (3.5-5.1) Chloride Level 87 mmol/L (98-107) L Carbon Dioxide Level 28 mmol/L (21-32) Anion Gap 13 (6-14) Blood Urea Nitrogen 80 mg/dL (7-20) H Creatinine 8.4 mg/dL (0.6-1.0) H Estimated GFR (Cockcroft-Gault) 5.8 BUN/Creatinine Ratio 10 (6-20) Glucose Level 118 mg/dL (70-99) H Calcium Level 8.8 mg/dL (8.5-10.1) Total Bilirubin 0.4 mg/dL (0.2-1.0) Aspartate Amino Transferase (AST) 34 U/L (15-37) Alanine Aminotransferase (ALT) 14 U/L (14-59) Alkaline Phosphatase 153 U/L (46-116) H Creatine Kinase 102 U/L (26-192) Troponin I Quantitative 0.091 ng/mL (0.000-0.055) VZ-Yug-M-Type Natriuretic Peptide 87042 pg/mL (0-124) H Total Protein 7.9 g/dL (6.4-8.2) Albumin 3.1 g/dL (3.4-5.0) L Albumin/Globulin Ratio 0.6 (1.0-1.7) L Laboratory Tests 04/04/20 08:45 Laboratory Tests 04/04/20 08:45 Vital Signs: Vital Signs Date Time Temp Pulse Resp B/P (MAP) Pulse Ox O2 Delivery O2 Flow Rate FiO2 04/04/20 08:52 98.7 85 18 195/78 (117) 100 Room Air 98.7 EKG: EKG: Sinus rhythm at 87 bpm, no axis deviation, normal intervals, T wave inversion lead III, no ST elevations or ST depressions Radiology/Procedures: Radiology/Procedures: [ IMAGING REPORT Signed PATIENT: CESAR AGEE AACCOUNT: [id number] : 1955 LOCATION: ER AGE: 65 SEX: F EXAM STATUS: REG ER ORD. PHYSICIAN: PAM PERALTA DO REASON: soa PROCEDURE: PORTABLE CHEST 1V AP portable chest radiograph 04/04/2020 Clinical History: Shortness of breath. An AP erect portable digital radiograph of the chest was obtained. Comparison study is dated 02/11/2020. The cardiac silhouette is mildly enlarged. The thoracic aorta is tortuous. Atherosclerotic calcification thoracic aorta is seen. No acute pulmonary infiltrate is noted. No pneumothorax or pleural effusion is seen. The osseous structures are unchanged. Impression: Cardiomegaly. No acute pulmonary infiltrate is seen. Electronically signed by: Leonardo Guerrero MD (04/04/2020 9:41 AM) [id number] DICTATED and SIGNED BY: LEONARDO GUERRERO MD DATE: 04/04/20 0941 MAGING REPORT Signed PATIENT: CESAR AGEE AACCOUNT: [id number] : 1955 LOCATION: ER AGE: 65 SEX: F EXAM STATUS: REG ER ORD. PHYSICIAN: PAM PERALTA DO REASON: fall PROCEDURE: SHOULDER 2+V LEFT EXAM: 3 Views Left Shoulder DATE: 04/04/2020 9:06 AM INDICATION: fall / Spl. Instructions: / History: COMPARISON: 09/22/2019 FINDINGS: There is no evidence for acute fracture or dislocation. AC joint is congruent. There is heterogeneous sclerosis of the left humeral head lucencies of the articular surface. In addition there is lucency within the glenoid. Humeral head is not high riding. Heart is enlarged. Aortic calcifications are seen. IMPRESSION: 1. No acute fracture or dislocation. 2. Large lucencies within the left humeral head and glenoid are favored to represent degenerative cystic change. However given the relatively rapid change compared to prior examination 09/22/2019, underlying infectious or erosive arthropathy is also a consideration. Electronically signed by: Jarod Kaur MD (04/04/2020 9:37 AM) [id number] DICTATED and SIGNED BY: JAROD KAUR MD DATE: 04/04/20 0937 Impression: Concern for significant symptomatic anemia, blood products ordered in the ED, occult positive -will monitor for GIB (no active bleeding). Patient hemodynamically stable with unremarkable potassium in the setting of esrd, missed dialysis 2 days ago. CXR w/no fluid overload but cardiomegaly. Will admit for further medical management. Patient agrees with this plan was stable at time of admission. Course & Med Decision Making: Course & Med Decision Making Pertinent Labs and Imaging studies reviewed. (See chart for details) Concern for symptomatic anemia, decreased from prior admission. There is also an elevated troponin which is increased from prior (patient has no active chest pain), BNP is decreased from prior. Chest x-ray shows cardiomegaly. Occult stool signs, has no active GI bleed. Stool was dark in color. 2Uprbcs ordered and pending. Will admit to the telemetry unit for further care. Dragon Disclaimer: Dragon Disclaimer: This electronic medical record was generated, in whole or in part, using a voice recognition dictation system. Departure Departure Impression: Primary Impression: Macrocytic anemia Additional Impressions: Elevated troponin Cardiomegaly Occult blood positive stool Disposition: ADMITTED INPATIENT Admitting Physician: HIMS Condition: GUARDED Referrals: NO PCP (PCP) Justicifation of Admission Dx: Justifications for Admission: Justification of Admission Dx: Comment: (symptomatic anemia w/troponin elevation, GIB and cardiomegaly) PAM PERALTA DO Apr 04, 2020 10:33
[2020-04-04 11:15] LABS: ANISOCYTOSIS MOD; SCHISTOCYTES OCC
--- NOTE | 2020-04-04 11:23 | PDOC1 ---
History and Physical Date of Admission Date of Admission DATE: 04/04/20 TIME: 11:20 Identification/Chief Complaint Chief Complaint Weakness Source Source: Patient History of Present Illness History of Present Illness Ms Fernandez is a 64 yo F w/ PMHx ESRD on HD TuThSa, PUD with previous GI bleeding, hypertension, hyperlipidemia, GERD, constipation, rheumatoid arthri tis, diabetes, hyperparathyroidism, hep C, cirrhosis, and alcohol abuse p/w weakness, exertional shortness of breath with a fall on , complains of left shoulder pain. Patient states she missed dialysis on Saturday due to the fall. Ambulates with a walker. Reports she did not hit her head or lose consciousness. Has no routine primary care physician. Patient states "I feel so bad I just cannot move." States she started having dark stools yesterday. Hb 4.7 in ED, Na 128, BNP > 160K, called for admission for further care Past Medical History Cardiovascular: HTN, Hyperlipidemia Pulmonary: No pertinent hx GI: Constipation, GERD, GI bleed Heme/Onc: Anemia NOS Hepatobiliary: No pertinent hx, Hep A/B/C Psych: Addictions Rheumatologic: Rheumatoid arthritis Infectious disease: No pertinent hx Renal/: Chronic renal failure, Hematuria Endocrine: Diabetes, Hyperparathyroidism Past Surgical History Past Surgical History: Cholecystectomy, Tonsillectomy, Hysterectomy, Other Family History Family History: Alcohol Abuse, High Cholestrol, Hypertension, Family History Unknown Social History Smoke: No ALCOHOL: other Drugs: None Current Problem List Problem List Problems Medical Problems: (1) Cardiomegaly Status: Acute (2) Elevated troponin Status: Acute (3) Macrocytic anemia Status: Acute Current Medications Current Medications Active Scripts Active Feosol (Ferrous Sulfate) 325 Mg Tablet 325 Mg PO BIDWMEALS 60 Days Proair Hfa (Albuterol Sulfate) 8.5 Gm Hfa.aer.ad 2.5 Mg NEB PRN Q2HRS PRN 30 Days Pantoprazole Sodium (Pantoprazole Sodium) 40 Mg Tablet.dr 40 Mg PO DAILYAC 30 Days Reported Carvedilol 25 Mg Tablet 25 Mg PO BIDWMEALS Folic Acid 0.4 Mg Tablet 0.4 Mg PO DAILY Acetaminophen 500 Mg Tablet 1 Tab PO PRN Q6HRS PRN 15 Days Percocet 7.5-325 Mg Tablet (Oxycodone/Acetaminophen) 1 Each Tablet 1 Tab PO PRN QID PRN MDD 3 Tablet(s) 5 Days Allergies Allergies: Coded Allergies: No Known Drug Allergies (Unverified , 12/30/19) ROS General: YES: Fatigue, Malaise; No: Chills, Night Sweats, Appetite, Other PSYCHOLOGICAL ROS: YES: Anxiety; No: Behavioral Disorder, Concentration difficultie, Decreased libido, Depression, Disorientation, Hallucinations, Hostility, Irritablity, Memory difficulties, Mood Swings, Obsessive thoughts, Physical abuse, Sexual abuse, Sleep disturbances, Suicidal ideation, Other Eyes: No Blurry vision, No Decreased vision, No Double vision, No Dry eyes, No Excessive tearing, No Eye Pain, No Itchy Eyes, No Loss of vision, No Ph otophobia, No Scotomata, No Uses contacts, No Uses glasses, No Other HEENT: No: Heacaches, Visual Changes, Hearing change, Nasal congestion, Nasal discharge, Oral lesions, Sinus pain, Sore Throat, Epistaxis, Sneezing, Snoring, Tinnitus, Vertigo, Vocal changes, Other ALLERGY AND IMMUNOLOGY: No: Hives, Insect Bite Sensitivity, Itchy/Watery Eyes, Nasal Congestion, Post Nasal Drip, Seasonal Allergies, Other Hematological and Lymphatic: YES: Blood Transfusions; No: Bleeding Problems, Blood Clots, Brusing, Night Sweats, Pallor, Swollen Lymph Nodes, Other ENDOCRINE: No: Breast Changes, Galactorrhea, Hair Pattern Changes, Hot Flashes, Malaise/lethargy, Mood Swings, Palpitations, Polydipsia/polyuria, Skin Changes, Temperature Intolerance, Unexpected Weight Changes, Other Breast: No New/Changing Breast Lumps, No Nipple changes, No Nipple discharge, No Other Respiratory: No: Cough, Hemoptysis, Orthopnea, Pleuritic Pain, Shortness of breath, SOB with excertion, Sputum Changes, Stridor, Tachypnea, Wheezing, Other Cardiovascular: No Chest Pain, No Palpitations, No Orthopnea, No Paroxysmal Noc. Dyspnea, No Edema, No Lt Headedness, No Other Gastrointestinal: Yes Nausea, Yes Abdominal Pain, Yes Melena; No Vomiting, No Diarrhea, No Constipation, No Hematochezia, No Other Genitourinary: No Dysuria, No Frequency, No Incontinence, No Hematuria, No Retention, No Discharge, No Urgency, No Pain, No Flank Pain, No Other, No , No , No , No , No , No , No Musculoskeletal: No Gait Disturbance, No Joint Pain, No Joint Stiffness, No Joint Swelling, No Muscle Pain, No Muscular Weakness, No Pain In:, No Swelling In:, No Other Neurological: Yes Confusion, Yes Dizziness, Yes Gait Disturbance; No Behavorial Changes, No Bowel/Bladder ControlChng, No Headaches, No Impaired Coord/balance, No Memory Loss, No Numbness/Tingling, No Seizures, No Speech Problems, No Tremors, No Visual Changes, No Weakness, No Other Skin: No Dry Skin, No Eczema, No Hair Changes, No Lumps, No Mole Changes, No Mottling, No Nail Changes, No Pruritus, No Rash, No Skin Lesion Changes, No Other, No Acne Physical Exam General: Alert, Oriented X3, Cooperative, mild distress HEENT: Atraumatic, PERRLA, EOMI, Mucous membr. moist/pink Lungs: Clear to auscultation, Normal air movement Heart: S1S2, RRR, no thrills, no rubs Abdomen: Normal bowel sounds, Soft, No hepatosplenomegaly, No masses, Other (Epigastric tenderness) Extremities: No clubbing, No cyanosis, No edema, Normal pulses, No tenderness/swelling Skin: No rashes, No breakdown, No significant lesion Neuro: Normal speech, Strength at 5/5 X4 ext, Normal tone, Sensation intact, Cranial nerves 3-12 NL, Reflexes 2+ Psych/Mental Status: Mental status NL, Mood NL Vitals Vitals Vital Signs Date Time Temp Pulse Resp B/P (MAP) Pulse Ox O2 Delivery O2 Flow Rate FiO2 04/04/20 08:52 98.7 85 18 195/78 (117) 100 Room Air 98.7 Labs Labs Laboratory Tests Test 04/04/20 08:45 White Blood Count 2.6 x10^3/uL (4.0-11.0) Red Blood Count 1.33 x10^6/uL (3.50-5.40) Hemoglobin 4.7 g/dL (12.0-15.5) Hematocrit 13.7 % (36.0-47.0) Mean Corpuscular Volume 102 fL (79-100) Mean Corpuscular Hemoglobin 35 pg (25-35) Mean Corpuscular Hemoglobin Concent 34 g/dL (31-37) Red Cell Distribution Width 21.4 % (11.5-14.5) Platelet Count 154 x10^3/uL (140-400) Neutrophils (%) (Auto) 66 % (31-73) Lymphocytes (%) (Auto) 20 % (24-48) Monocytes (%) (Auto) 11 % (0-9) Eosinophils (%) (Auto) 2 % (0-3) Basophils (%) (Auto) 1 % (0-3) Neutrophils # (Auto) 1.7 x10^3/uL (1.8-7.7) Lymphocytes # (Auto) 0.5 x10^3/uL (1.0-4.8) Monocytes # (Auto) 0.3 x10^3/uL (0.0-1.1) Eosinophils # (Auto) 0.0 x10^3/uL (0.0-0.7) Basophils # (Auto) 0.0 x10^3/uL (0.0-0.2) Large Platelets Few Anisocytosis Mod Schistocytes Occ Prothrombin Time 15.7 SEC (11.7-14.0) Prothromb Time International Ratio 1.3 (0.8-1.1) Sodium Level 128 mmol/L (136-145) Potassium Level 4.9 mmol/L (3.5-5.1) Chloride Level 87 mmol/L (98-107) Carbon Dioxide Level 28 mmol/L (21-32) Anion Gap 13 (6-14) Blood Urea Nitrogen 80 mg/dL (7-20) Creatinine 8.4 mg/dL (0.6-1.0) Estimated GFR (Cockcroft-Gault) 5.8 BUN/Creatinine Ratio 10 (6-20) Glucose Level 118 mg/dL (70-99) Calcium Level 8.8 mg/dL (8.5-10.1) Total Bilirubin 0.4 mg/dL (0.2-1.0) Aspartate Amino Transf (AST/SGOT) 34 U/L (15-37) Alanine Aminotransferase (ALT/SGPT) 14 U/L (14-59) Alkaline Phosphatase 153 U/L (46-116) Creatine Kinase 102 U/L (26-192) Troponin I Quantitative 0.091 ng/mL (0.000-0.055) CP-See-P-Type Natriuretic Peptide 06630 pg/mL (0-124) Total Protein 7.9 g/dL (6.4-8.2) Albumin 3.1 g/dL (3.4-5.0) Albumin/Globulin Ratio 0.6 (1.0-1.7) Laboratory Tests Test 04/04/20 08:45 White Blood Count 2.6 x10^3/uL (4.0-11.0) Red Blood Count 1.33 x10^6/uL (3.50-5.40) Hemoglobin 4.7 g/dL (12.0-15.5) Hematocrit 13.7 % (36.0-47.0) Mean Corpuscular Volume 102 fL (79-100) Mean Corpuscular Hemoglobin 35 pg (25-35) Mean Corpuscular Hemoglobin Concent 34 g/dL (31-37) Red Cell Distribution Width 21.4 % (11.5-14.5) Platelet Count 154 x10^3/uL (140-400) Neutrophils (%) (Auto) 66 % (31-73) Lymphocytes (%) (Auto) 20 % (24-48) Monocytes (%) (Auto) 11 % (0-9) Eosinophils (%) (Auto) 2 % (0-3) Basophils (%) (Auto) 1 % (0-3) Neutrophils # (Auto) 1.7 x10^3/uL (1.8-7.7) Lymphocytes # (Auto) 0.5 x10^3/uL (1.0-4.8) Monocytes # (Auto) 0.3 x10^3/uL (0.0-1.1) Eosinophils # (Auto) 0.0 x10^3/uL (0.0-0.7) Basophils # (Auto) 0.0 x10^3/uL (0.0-0.2) Large Platelets Few Anisocytosis Mod Schistocytes Occ Prothrombin Time 15.7 SEC (11.7-14.0) Prothromb Time International Ratio 1.3 (0.8-1.1) Sodium Level 128 mmol/L (136-145) Potassium Level 4.9 mmol/L (3.5-5.1) Chloride Level 87 mmol/L (98-107) Carbon Dioxide Level 28 mmol/L (21-32) Anion Gap 13 (6-14) Blood Urea Nitrogen 80 mg/dL (7-20) Creatinine 8.4 mg/dL (0.6-1.0) Estimated GFR (Cockcroft-Gault) 5.8 BUN/Creatinine Ratio 10 (6-20) Glucose Level 118 mg/dL (70-99) Calcium Level 8.8 mg/dL (8.5-10.1) Total Bilirubin 0.4 mg/dL (0.2-1.0) Aspartate Amino Transf (AST/SGOT) 34 U/L (15-37) Alanine Aminotransferase (ALT/SGPT) 14 U/L (14-59) Alkaline Phosphatase 153 U/L (46-116) Creatine Kinase 102 U/L (26-192) Troponin I Quantitative 0.091 ng/mL (0.000-0.055) MB-Btv-W-Type Natriuretic Peptide 02260 pg/mL (0-124) Total Protein 7.9 g/dL (6.4-8.2) Albumin 3.1 g/dL (3.4-5.0) Albumin/Globulin Ratio 0.6 (1.0-1.7) Images Images CXR 04/04/20 Impression: Cardiomegaly. No acute pulmonary infiltrate is seen. Shoulder X-Ray 04/04/20 IMPRESSION: 1. No acute fracture or dislocation. 2. Large lucencies within the left humeral head and glenoid are favored to represent degenerative cystic change. However given the relatively rapid change compared to prior examination 09/22/2019, underlying infectious or erosive arthropathy is also a consideration. VTE Prophylaxis Ordered VTE Prophylaxis Devices: No VTE Pharmacological Prophylaxi: Contraindicated Assessment/Plan Assessment/Plan A/P: Shortness of breath - likely related to mild uremia, fluid overload, symptomatic anemia. Acute anemia - Hb 4.7. continuing GI bleed. 2u PRBC ordered End-stage renal disease on dialysis - Nephrology consulted H/o pancreatitis, alcoholic - wine drinker Mild bilateral knee osteoarthritis with suspected trace right knee effusion. Chronic back pain Previous gastrointestinal bleed HX Clostridium difficile Cholelithiasis Obesity Trace tricuspid regurgitation with an estimated PAP of 52 mmHg. Arteriovenous shunt Moderate protein calorie malnutrition - Albumin 2.8 Back and shoulder pain s/p fall - PT evaluation +Hemoccult H/o recurrent UGI bleeding, refractory ulcer - H. pylori negative x 2, last endotherapy 01/12/20 (has had 7 EGDs since 2016), past GDA embolization (poor surgical candidate) GERD cirrhosis Hep C FEN - Renal PPX - SCDs FULL CODE Dispo - inpatient Justicifation of Admission Dx: Justifications for Admission: Justification of Admission Dx: Yes Chronic Renal Failure: Hemodynamic Instability MELY OLVERA MD Apr 04, 2020 11:23
[2020-04-04 11:25] LABS: PLT ESTIMATE ADEQUATE (ADEQUATE)
[2020-04-04 11:39] LABS: FECAL OB PT POSITIVE (NEG)
[2020-04-04] MEDS ORDERED: MORPHINE SULFATE 4 MG/ML VIAL. ONE (11:54)
[2020-04-04] MEDS ORDERED: MORPHINE SULFATE 4 MG/ML VIAL. IV ONE (12:00)
[2020-04-04] MEDS ORDERED: ACETAMINOPHEN 500 MG TABLET PO PRN (14:30)
[2020-04-04] MEDS ORDERED: ALBUTEROL SULFATE 2.5 MG/3 ML NEBU. NEB PRN (14:30)
--- NOTE | 2020-04-04 15:20 | PDOC2 ---
GI CONSULT Reason For Consult: Hemoccult positive HPI: HPI: 64 y/o female who we've seen many times. Extensive GI eval documented per past notes. Last dialyzed on 03/31/20, was told she needed a transfusion then. On 04/02, fell over onto her back on carpet. Didn't go to dialysis that day because her back and shoulders hurt too much after fall. Then she couldn't find any non-NSAID pain medication to take so she took a couple Advil P.M. that night. At some point (first says 04/01, then 04/03) she noticed dark stools that possibly recurred the next day. Stools are always dark and formed because she has been taking iron, but now are dark and loose. No n/v but not eating because everything hurts. Abdomen is also sore - thinks that started after she fell. No hematochezia. "I'm taking everything I'm supposed to" - tells me taking pantoprazole BID. Wants some ice chips and a permanent fix to this problem. PMH: PMH: HTN, HLD, ESRD on HD, RA, DM, hyperparathyroidism, OA partial hysterectomy FH: Family History: DM Social History: Smoke: No ALCOHOL: other (h/o overuse - today says two drinks on her birthday) Drugs: None ROS: GEN: Denies fevers, chills, sweats HEENT: Denies blurred vision, sore throat CV: Denies chest pain RESP: Denies shortness of air, cough GI: Per HPI : Denies hematuria, dysuria ENDO: Denies weight changes NEURO: Denies confusion, dizziness MSK: shoulder and back pain SKIN: Denies jaundice, pruritus Vitals: Vitals: Vital Signs Date Time Temp Pulse Resp B/P (MAP) Pulse Ox O2 Delivery O2 Flow Rate FiO2 04/04/20 13:19 97.7 80 18 122/49 (73) 95 Room Air 97.7 Labs: Labs: Laboratory Tests Test 04/04/20 08:45 04/04/20 11:05 White Blood Count 2.6 x10^3/uL (4.0-11.0) Red Blood Count 1.33 x10^6/uL (3.50-5.40) Hemoglobin 4.7 g/dL (12.0-15.5) Hematocrit 13.7 % (36.0-47.0) Mean Corpuscular Volume 102 fL (79-100) Mean Corpuscular Hemoglobin 35 pg (25-35) Mean Corpuscular Hemoglobin Concent 34 g/dL (31-37) Red Cell Distribution Width 21.4 % (11.5-14.5) Platelet Count 154 x10^3/uL (140-400) Neutrophils (%) (Auto) 66 % (31-73) Lymphocytes (%) (Auto) 20 % (24-48) Monocytes (%) (Auto) 11 % (0-9) Eosinophils (%) (Auto) 2 % (0-3) Basophils (%) (Auto) 1 % (0-3) Neutrophils # (Auto) 1.7 x10^3/uL (1.8-7.7) Lymphocytes # (Auto) 0.5 x10^3/uL (1.0-4.8) Monocytes # (Auto) 0.3 x10^3/uL (0.0-1.1) Eosinophils # (Auto) 0.0 x10^3/uL (0.0-0.7) Basophils # (Auto) 0.0 x10^3/uL (0.0-0.2) Platelet Estimate Adequate (ADEQUATE) Large Platelets Few Anisocytosis Mod Schistocytes Occ Prothrombin Time 15.7 SEC (11.7-14.0) Prothromb Time International Ratio 1.3 (0.8-1.1) Sodium Level 128 mmol/L (136-145) Potassium Level 4.9 mmol/L (3.5-5.1) Chloride Level 87 mmol/L (98-107) Carbon Dioxide Level 28 mmol/L (21-32) Anion Gap 13 (6-14) Blood Urea Nitrogen 80 mg/dL (7-20) Creatinine 8.4 mg/dL (0.6-1.0) Estimated GFR (Cockcroft-Gault) 5.8 BUN/Creatinine Ratio 10 (6-20) Glucose Level 118 mg/dL (70-99) Calcium Level 8.8 mg/dL (8.5-10.1) Total Bilirubin 0.4 mg/dL (0.2-1.0) Aspartate Amino Transf (AST/SGOT) 34 U/L (15-37) Alanine Aminotransferase (ALT/SGPT) 14 U/L (14-59) Alkaline Phosphatase 153 U/L (46-116) Creatine Kinase 102 U/L (26-192) Troponin I Quantitative 0.091 ng/mL (0.000-0.055) ZH-Mrn-T-Type Natriuretic Peptide 79866 pg/mL (0-124) Total Protein 7.9 g/dL (6.4-8.2) Albumin 3.1 g/dL (3.4-5.0) Albumin/Globulin Ratio 0.6 (1.0-1.7) Stool Occult Blood Positive (NEG) Allergies: Coded Allergies: No Known Drug Allergies (Unverified , 12/30/19) Medications: Current Medications Medications (Trade) Dose Ordered Sig/Kimberly Route PRN Reason Start Time Stop Time Status Last Admin Dose Admin Morphine Sulfate (Morphine Sulfate) 8 mg 1X ONCE IV 04/04/20 12:00 04/04/20 12:01 DC 04/04/20 11:56 Imaging: Imaging: CXR 04/04/20 Impression: Cardiomegaly. No acute pulmonary infiltrate is seen. Shoulder X-Ray 04/04/20 IMPRESSION: 1. No acute fracture or dislocation. 2. Large lucencies within the left humeral head and glenoid are favored to represent degenerative cystic change. However given the relatively rapid change compared to prior examination 09/22/2019, underlying infectious or erosive arthropathy is also a consideration. PE: GEN: NAD, was asleep holding cell phone when I walked in HEENT: Atraumatic, PERRL LUNGS: CTAB anteriorly HEART: RRR ABD: NABS, some distention, diffuse vague tenderness though worst in RUQ/epigastrium EXTREMITY: No edema SKIN: No rashes, no jaundice NEURO/PSYCH: A & O 3 A/P: A/P: Back and shoulder pain s/p fall Dark stools (on iron), +Hemoccult (7/7 times since 2016), chronic anemia (worse - Hgb 4.7), chronic abdominal pain H/o recurrent UGI bleeding, refractory ulcer - H. pylori negative x 2, last endotherapy 01/12/20 (has had 7 EGDs since 2016), past GDA embolization by and surgical evals (poor surgical candidate) GERD, cirrhosis, Hep C, h/o C Diff, h/o pancreatitis CRC screen - last colonoscopy unremarkable at [facility] in 2018 ESRD on HD (h/o non-compliance, missed dialysis 04/02/20), h/o alcohol overuse (still drinks some), NSAID use -- D/w Dr. Faulkner. Transfusion in process. Monitor Hgb and for over bleeding. Agree w/ PPI - will increase to BID. No immediate plans to re-scope. Okay to try clears and observe. As discussed many times in the past, stop NSAIDs. IRIS SZYMANSKI Apr 04, 2020 15:20
[2020-04-04] MEDS ORDERED: diphenhydrAMINE 50 MG/ML VIAL IVP ONE (17:15)
[2020-04-04] MEDS: FERROUS SULFATE 325 MG TABLET. PO SCH (18:32)
[2020-04-04] MEDS: CARVEDILOL 12.5 MG TABLET. PO SCH (18:32)
[2020-04-04] MEDS: PANTOPRAZOLE 40 MG TABLET.DR. PO SCH (18:32)
[2020-04-05] VITALS (9 sets, daily range): BP systolic 86–144; BP diastolic 36–75
[2020-04-05] MEDS: oxyCODONE/APAP 7.5/325 1 TAB TABLET PO PRN ×3 (02:11→21:47)
[2020-04-05] MEDS ORDERED: diphenhydrAMINE HCL 25 MG CAPSULE PO PRN (02:15)
[2020-04-05] MEDS ORDERED: diphenhydrAMINE HCL 25 MG CAPSULE PO ONE (02:15)
[2020-04-05 05:43] LABS: BASO % 1 % (0-3); EOS % 1 % (0-3); LYMPH # 0.4 x10^3/uL (1.0-4.8); LYMPH % 19 % (24-48); MEAN CORPUSCULAR HEMOGLOBIN 33 pg (25-35); MEAN CORPUSCULAR HGB CONC 34 g/dL (31-37); MEAN CORPUSCULAR VOLUME 96 fL (79-100); MONO # 0.3 x10^3/uL (0.0-1.1); MONO % 15 % (0-9); NEUT # 1.4 x10^3/uL (1.8-7.7); NEUT % 64 % (31-73); PLATELET COUNT 130 x10^3/uL (140-400); RED BLOOD COUNT 1.84 x10^6/uL (3.50-5.40); RED CELL DISTRIBUTION WIDTH 21.4 % (11.5-14.5); WHITE BLOOD COUNT 2.2 x10^3/uL (4.0-11.0)
[2020-04-05 05:49] LABS: HEMOGLOBIN 6.1 g/dL (12.0-15.5)
[2020-04-05 05:50] LABS: CALCIUM 8.6 mg/dL (8.5-10.1); GFR 5.3; HEMATOCRIT 17.7 % (36.0-47.0)
[2020-04-05] MEDS ORDERED: IV NORMAL SALINE 1000ML BAG 1,000 ML IV PRN ×2 (07:02)
[2020-04-05] MEDS ORDERED: ACETAMINOPHEN 500 MG TABLET PO PRN (07:15)
[2020-04-05] MEDS ORDERED: DIALYSIS PATIENT. MC PRN ×2 (07:15)
[2020-04-05] MEDS ORDERED: diphenhydrAMINE 50 MG/ML VIAL IV PRN ×2 (07:15)
[2020-04-05] MEDS ORDERED: ALBUMIN HUMAN 25% 200 ML IV PRN (07:15)
[2020-04-05] MEDS ORDERED: PANTOPRAZOLE 40 MG TABLET.DR. PO SCH (07:30)
--- NOTE | 2020-04-05 10:47 | PDOC ---
Subjective: Subjective: No bleeding, no stools. Shoulder still hurts. Abdomen is better. Objective: Objective: No bleeding per nurse, plans for transfusion during dialysis. Vital Signs: Vital Signs Date Time Temp Pulse Resp B/P (MAP) Pulse Ox O2 Delivery O2 Flow Rate FiO2 04/05/20 10:33 97.9 66 16 138/72 97.9 04/05/20 07:54 94 Room Air Labs: Laboratory Tests Test 04/04/20 11:05 04/04/20 16:46 04/04/20 19:43 04/05/20 05:05 Stool Occult Blood Positive Glucose (Fingerstick) 72 mg/dL 112 mg/dL White Blood Count 2.2 x10^3/uL Red Blood Count 1.84 x10^6/uL Hemoglobin 6.1 g/dL Hematocrit 17.7 % Mean Corpuscular Volume 96 fL Mean Corpuscular Hemoglobin 33 pg Mean Corpuscular Hemoglobin Concent 34 g/dL Red Cell Distribution Width 21.4 % Platelet Count 130 x10^3/uL Neutrophils (%) (Auto) 64 % Lymphocytes (%) (Auto) 19 % Monocytes (%) (Auto) 15 % Eosinophils (%) (Auto) 1 % Basophils (%) (Auto) 1 % Neutrophils # (Auto) 1.4 x10^3/uL Lymphocytes # (Auto) 0.4 x10^3/uL Monocytes # (Auto) 0.3 x10^3/uL Eosinophils # (Auto) 0.0 x10^3/uL Basophils # (Auto) 0.0 x10^3/uL Sodium Level 129 mmol/L Potassium Level 5.0 mmol/L Chloride Level 89 mmol/L Carbon Dioxide Level 26 mmol/L Anion Gap 14 Blood Urea Nitrogen 86 mg/dL Creatinine 9.0 mg/dL Estimated GFR (Cockcroft-Gault) 5.3 Glucose Level 118 mg/dL Calcium Level 8.6 mg/dL Test 04/05/20 07:32 Glucose (Fingerstick) 103 mg/dL PE: GEN: dialyzing, was resting but then talking on the phone LUNGS: CTAB HEART: RRR ABD: less discomfort today NEURO/PSYCH: A & O 3 A/P: Chronic anemia, recurrent UGI bleeding/refractory ulcer - "dark stool" prior to admission, no recurrence Shoulder pain, chronic abd pain (better) ESRD on HD, non-compliance -- Continue same for now (BID PPI, clears), will review w/ Dr. Faulkner. Justicifation of Admission Dx: Justifications for Admission: Justification of Admission Dx: Yes Chronic Renal Failure: Hemodynamic Instability IRIS SZYMANSKI Apr 05, 2020 10:47
--- NOTE | 2020-04-05 11:48 | PDOC2 ---
CONSULT Date of Consult Date of Consult DATE: 04/05/20 TIME: 11:43 Reason for Consult Reason for Consult: ESRD AND ANEMIA Referring Physician Referring Physician: WADE Identification/Chief Complaint Chief Complaint SOB Source Source: Chart review History of Present Illness Reason for Visit: THIS IS A 64 YR OLD BF WITH ESRD ON TTS. HAS NOT BEEN TO HD SINCE SATURDAY AND MISSED HER SAT TX. HAS SOME NON COMPLIANCE. ESRD IS DUE TO DM II AND HTN. HAS SOB AND HGB OF 4.7 ON ADMIT. HAS HAD UGI BLEED. LABS ARE C/W ESRD Past Medical History Cardiovascular: HTN, Hyperlipidemia Pulmonary: No pertinent hx GI: Constipation, GERD, GI bleed Heme/Onc: Anemia NOS Hepatobiliary: No pertinent hx, Hep A/B/C Psych: Addictions Rheumatologic: Rheumatoid arthritis Infectious disease: No pertinent hx Renal/: Chronic renal failure, Hematuria Endocrine: Diabetes, Hyperparathyroidism Past Surgical History Past Surgical History: Cholecystectomy, Tonsillectomy, Hysterectomy, Other Family History Family History: Alcohol Abuse, High Cholestrol, Hypertension, Family History Unknown Social History No ALCOHOL: other (h/o overuse - today says two drinks on her birthday) Drugs: None Current Problem List Problem List Problems Medical Problems: (1) Cardiomegaly Status: Acute (2) Elevated troponin Status: Acute (3) Macrocytic anemia Status: Acute (4) Occult blood positive stool Status: Acute Current Medications Current Medications Current Medications Morphine Sulfate (Morphine Sulfate) 8 mg 1X ONCE IV Last administered on 04/04/20at 11:56; Start 04/04/20 at 12:00; Stop 04/04/20 at 12:01; Status DC Morphine Sulfate (Morphine Sulfate) 4 mg STK-MED ONCE .ROUTE ; Start 04/04/20 at 11:54; Stop 04/04/20 at 11:55; Status DC Acetaminophen (Tylenol) 500 mg PRN Q6HRS PRN PO MILD PAIN, FEVER; Start 04/04/20 at 14:30 Albuterol Sulfate (Ventolin Neb Soln) 2.5 mg PRN Q2HRS PRN NEB SOB / WHILE AWAKE; Start 04/04/20 at 14:30 Ferrous Sulfate (Feosol) 325 mg BIDWMEALS PO Last administered on 04/04/20at 18:32; Start 04/04/20 at 17:00 Oxycodone/ Acetaminophen (Percocet 7.5/ 325) 1 tab PRN QID PRN PO MODERATE- SEVERE PAIN Last administered on 04/05/20at 02:11; Start 04/04/20 at 14:30 Pantoprazole Sodium (Protonix) 40 mg DAILYAC PO ; Start 04/05/20 at 07:30; Stop 04/04/20 at 15:21; Status DC Carvedilol (Coreg) 25 mg BIDWMEALS PO Last administered on 04/04/20at 18:32; Start 04/04/20 at 17:00 Folic Acid (Folic Acid) 1 mg DAILY PO ; Start 04/05/20 at 09:00 Pantoprazole Sodium (Protonix) 40 mg BIDAC PO Last administered on 04/04/20at 18:32; Start 04/04/20 at 16:30 Diphenhydramine HCl (Benadryl) 25 mg 1X ONCE IVP ; Start 04/04/20 at 17:15; Stop 04/04/20 at 17:16; Status DC Diphenhydramine HCl (Benadryl) 50 mg 1X ONCE PO Last administered on 04/05/20at 02:10; Start 04/05/20 at 02:15; Stop 04/05/20 at 02:16; Status DC Diphenhydramine HCl (Benadryl) 25 mg PRN Q6HRS PRN PO ITCHING; Start 04/05/20 at 02:15 Sodium Chloride 1,000 ml @ 1,000 mls/hr Q1H PRN IV hypotension; Start 04/05/20 at 07:02; Stop 04/05/20 at 13:01 Albumin Human 200 ml @ 200 mls/hr 1X PRN PRN IV Hypotension; Start 04/05/20 at 07:15; Stop 04/05/20 at 13:14 Acetaminophen (Tylenol) 500 mg 1X PRN PRN PO MILD PAIN / TEMP > 100.3'F; Start 04/05/20 at 07:15; Stop 04/06/20 at 07:14 Diphenhydramine HCl (Benadryl) 25 mg 1X PRN PRN IV ITCHING; Start 04/05/20 at 07:15; Stop 04/06/20 at 07:14 Diphenhydramine HCl (Benadryl) 25 mg 1X PRN PRN IV ITCHING; Start 04/05/20 at 07:15; Stop 04/06/20 at 07:14 Sodium Chloride 1,000 ml @ 400 mls/hr Q2H30M PRN IV PATENCY; Start 04/05/20 at 07:02; Stop 04/05/20 at 19:01 Info (PHARMACY MONITORING -- do not chart) 1 each PRN DAILY PRN MC SEE COMMENTS; Start 04/05/20 at 07:15; Status UNV Info (PHARMACY MONITORING -- do not chart) 1 each PRN DAILY PRN MC SEE COMMENT S; Start 04/05/20 at 07:15 Active Scripts Active Feosol (Ferrous Sulfate) 325 Mg Tablet 325 Mg PO BIDWMEALS 60 Days Proair Hfa (Albuterol Sulfate) 8.5 Gm Hfa.aer.ad 2.5 Mg NEB PRN Q2HRS PRN 30 Days Pantoprazole Sodium (Pantoprazole Sodium) 40 Mg Tablet.dr 40 Mg PO DAILYAC 30 Days Reported Carvedilol 25 Mg Tablet 25 Mg PO BIDWMEALS Folic Acid 0.4 Mg Tablet 0.4 Mg PO DAILY Acetaminophen 500 Mg Tablet 1 Tab PO PRN Q6HRS PRN 15 Days Percocet 7.5-325 Mg Tablet (Oxycodone/Acetaminophen) 1 Each Tablet 1 Tab PO PRN QID PRN MDD 3 Tablet(s) 5 Days Allergies Allergies: Coded Allergies: No Known Drug Allergies (Unverified , 12/30/19) ROS General: YES: Fatigue, Malaise, Appetite Eyes: Yes Decreased vision HEENT: YES: Heacaches Respiratory: YES: Cough, Shortness of breath Gastrointestinal: Yes Nausea, Yes Abdominal Pain Genitourinary: YES Other (ANURIA) Musculoskeletal: Yes Muscular Weakness Neurological: Yes Confusion, Yes Weakness Skin: Yes Dry Skin Physical Exam General: Alert, Oriented X3, Cooperative, mild distress HEENT: PERRLA, EOMI, Mucous membr. moist/pink Lungs: Clear to auscultation Heart: Regular rate Abdomen: Normal bowel sounds, Soft, No tenderness Extremities: No cyanosis Skin: No breakdown Neuro: Normal speech Psych/Mental Status: Mental status NL, Mood NL MUSCULOSKELETAL: No joint tenderness, No deformity Vitals VITALS Vital Signs Date Time Temp Pulse Resp B/P (MAP) Pulse Ox O2 Delivery O2 Flow Rate FiO2 6/9/20 10:33 97.9 66 16 138/72 97.9 04/05/20 08:00 Room Air 04/05/20 07:54 94 Labs Labs Laboratory Tests Test 04/04/20 08:45 04/04/20 11:05 04/04/20 16:46 04/04/20 19:43 White Blood Count 2.6 x10^3/uL (4.0-11.0) Red Blood Count 1.33 x10^6/uL (3.50-5.40) Hemoglobin 4.7 g/dL (12.0-15.5) Hematocrit 13.7 % (36.0-47.0) Mean Corpuscular Volume 102 fL (79-100) Mean Corpuscular Hemoglobin 35 pg (25-35) Mean Corpuscular Hemoglobin Concent 34 g/dL (31-37) Red Cell Distribution Width 21.4 % (11.5-14.5) Platelet Count 154 x10^3/uL (140-400) Neutrophils (%) (Auto) 66 % (31-73) Lymphocytes (%) (Auto) 20 % (24-48) Monocytes (%) (Auto) 11 % (0-9) Eosinophils (%) (Auto) 2 % (0-3) Basophils (%) (Auto) 1 % (0-3) Neutrophils # (Auto) 1.7 x10^3/uL (1.8-7.7) Lymphocytes # (Auto) 0.5 x10^3/uL (1.0-4.8) Monocytes # (Auto) 0.3 x10^3/uL (0.0-1.1) Eosinophils # (Auto) 0.0 x10^3/uL (0.0-0.7) Basophils # (Auto) 0.0 x10^3/uL (0.0-0.2) Platelet Estimate Adequate (ADEQUATE) Large Platelets Few Anisocytosis Mod Schistocytes Occ Prothrombin Time 15.7 SEC (11.7-14.0) Prothromb Time International Ratio 1.3 (0.8-1.1) Sodium Level 128 mmol/L (136-145) Potassium Level 4.9 mmol/L (3.5-5.1) Chloride Level 87 mmol/L (98-107) Carbon Dioxide Level 28 mmol/L (21-32) Anion Gap 13 (6-14) Blood Urea Nitrogen 80 mg/dL (7-20) Creatinine 8.4 mg/dL (0.6-1.0) Estimated GFR (Cockcroft-Gault) 5.8 BUN/Creatinine Ratio 10 (6-20) Glucose Level 118 mg/dL (70-99) Calcium Level 8.8 mg/dL (8.5-10.1) Total Bilirubin 0.4 mg/dL (0.2-1.0) Aspartate Amino Transf (AST/SGOT) 34 U/L (15-37) Alanine Aminotransferase (ALT/SGPT) 14 U/L (14-59) Alkaline Phosphatase 153 U/L (46-116) Creatine Kinase 102 U/L (26-192) Troponin I Quantitative 0.091 ng/mL (0.000-0.055) SU-Jpt-[id number]-Type Natriuretic Peptide 52067 pg/mL (0-124) Total Protein 7.9 g/dL (6.4-8.2) Albumin 3.1 g/dL (3.4-5.0) Albumin/Globulin Ratio 0.6 (1.0-1.7) Stool Occult Blood Positive (NEG) Glucose (Fingerstick) 72 mg/dL (70-99) 112 mg/dL (70-99) Test 04/05/20 05:05 04/05/20 07:32 White Blood Count 2.2 x10^3/uL (4.0-11.0) Red Blood Count 1.84 x10^6/uL (3.50-5.40) Hemoglobin 6.1 g/dL (12.0-15.5) Hematocrit 17.7 % (36.0-47.0) Mean Corpuscular Volume 96 fL (79-100) Mean Corpuscular Hemoglobin 33 pg (25-35) Mean Corpuscular Hemoglobin Concent 34 g/dL (31-37) Red Cell Distribution Width 21.4 % (11.5-14.5) Platelet Count 130 x10^3/uL (140-400) Neutrophils (%) (Auto) 64 % (31-73) Lymphocytes (%) (Auto) 19 % (24-48) Monocytes (%) (Auto) 15 % (0-9) Eosinophils (%) (Auto) 1 % (0-3) Basophils (%) (Auto) 1 % (0-3) Neutrophils # (Auto) 1.4 x10^3/uL (1.8-7.7) Lymphocytes # (Auto) 0.4 x10^3/uL (1.0-4.8) Monocytes # (Auto) 0.3 x10^3/uL (0.0-1.1) Eosinophils # (Auto) 0.0 x10^3/uL (0.0-0.7) Basophils # (Auto) 0.0 x10^3/uL (0.0-0.2) Sodium Level 129 mmol/L (136-145) Potassium Level 5.0 mmol/L (3.5-5.1) Chloride Level 89 mmol/L (98-107) Carbon Dioxide Level 26 mmol/L (21-32) Anion Gap 14 (6-14) Blood Urea Nitrogen 86 mg/dL (7-20) Creatinine 9.0 mg/dL (0.6-1.0) Estimated GFR (Cockcroft-Gault) 5.3 Glucose Level 118 mg/dL (70-99) Calcium Level 8.6 mg/dL (8.5-10.1) Glucose (Fingerstick) 103 mg/dL (70-99) Laboratory Tests Test 04/04/20 16:46 04/04/20 19:43 04/05/20 05:05 04/05/20 07:32 Glucose (Fingerstick) 72 mg/dL (70-99) 112 mg/dL (70-99) 103 mg/dL (70-99) White Blood Count 2.2 x10^3/uL (4.0-11.0) Red Blood Count 1.84 x10^6/uL (3.50-5.40) Hemoglobin 6.1 g/dL (12.0-15.5) Hematocrit 17.7 % (36.0-47.0) Mean Corpuscular Volume 96 fL (79-100) Mean Corpuscular Hemoglobin 33 pg (25-35) Mean Corpuscular Hemoglobin Concent 34 g/dL (31-37) Red Cell Distribution Width 21.4 % (11.5-14.5) Platelet Count 130 x10^3/uL (140-400) Neutrophils (%) (Auto) 64 % (31-73) Lymphocytes (%) (Auto) 19 % (24-48) Monocytes (%) (Auto) 15 % (0-9) Eosinophils (%) (Auto) 1 % (0-3) Basophils (%) (Auto) 1 % (0-3) Neutrophils # (Auto) 1.4 x10^3/uL (1.8-7.7) Lymphocytes # (Auto) 0.4 x10^3/uL (1.0-4.8) Monocytes # (Auto) 0.3 x10^3/uL (0.0-1.1) Eosinophils # (Auto) 0.0 x10^3/uL (0.0-0.7) Basophils # (Auto) 0.0 x10^3/uL (0.0-0.2) Sodium Level 129 mmol/L (136-145) Potassium Level 5.0 mmol/L (3.5-5.1) Chloride Level 89 mmol/L (98-107) Carbon Dioxide Level 26 mmol/L (21-32) Anion Gap 14 (6-14) Blood Urea Nitrogen 86 mg/dL (7-20) Creatinine 9.0 mg/dL (0.6-1.0) Estimated GFR (Cockcroft-Gault) 5.3 Glucose Level 118 mg/dL (70-99) Calcium Level 8.6 mg/dL (8.5-10.1) Assessment/Plan Assessment/Plan IMP ESRD ANEMIA OF BLOOD LOSS-UGI ANEMIA OF ESRD NON COMPLIANCE DM II HTN DSYPNEA DUE TO ANEMIA PLAN HD TODAY UF TO DW PRBC MICHEAL CARMICHAEL WILL FOLLOW LINNEA SHULTZ MD Apr 05, 2020 11:48
[2020-04-05] MEDS: PANTOPRAZOLE 40 MG TABLET.DR. PO SCH ×2 (13:00→17:10)
[2020-04-05] MEDS: FERROUS SULFATE 325 MG TABLET. PO SCH ×2 (13:00→17:10)
[2020-04-05] MEDS: FOLIC ACID 1 MG TABLET. PO SCH (13:00)
[2020-04-05] MEDS: CARVEDILOL 12.5 MG TABLET. PO SCH ×2 (13:01→17:10)
--- NOTE | 2020-04-05 15:26 | PDOC ---
PROGRESS NOTES Chief Complaint Chief Complaint Shortness of breath - likely related to mild uremia, fluid overload, symptomatic anemia. Acute anemia - Hb 4.7. continuing GI bleed. 2u PRBC ordered End-stage renal disease on dialysis - Nephrology consulted H/o pancreatitis, alcoholic - wine drinker Mild bilateral knee osteoarthritis with suspected trace right knee effusion. Chronic back pain Previous gastrointestinal bleed HX Clostridium difficile Cholelithiasis Obesity Trace tricuspid regurgitation with an estimated PAP of 52 mmHg. Arteriovenous shunt Moderate protein calorie malnutrition - Albumin 2.8 Back and shoulder pain s/p fall - PT evaluation +Hemoccult H/o recurrent UGI bleeding, refractory ulcer - H. pylori negative x 2, last endotherapy 01/12/20 (has had 7 EGDs since 2016), past GDA embolization (poor surgical candidate) GERD cirrhosis Hep C FEN - Renal PPX - SCDs FULL CODE Dispo - inpatient History of Present Illness History of Present Illness Ms Fernandez is a 64 yo F w/ PMHx ESRD on HD TuThSa, PUD with previous GI bleeding, hypertension, hyperlipidemia, GERD, constipation, rheumatoid arthritis, diabetes, hyperparathyroidism, hep C, cirrhosis, and alcohol abuse p/w weakness, exertional shortness of breath with a fall on Saturday's, complains of left shoulder pain. Patient states she missed dialysis on Saturday due to the fall. Ambulates with a walker. Reports she did not hit her head or lose consciousness. Has no routine primary care physician. Patient states "I feel so bad I just cannot move." States she started having dark stools yesterday. Hb 4.7 in ED, Na 128, BNP > 160K, called for admission for further care 04/05/2020 Patient receiving 1 unit of packed red blood cell during dialysis. She denies chest pain she does feel weak tolerating dialysis well. Seems to be fluid overloaded and she will have at least 2 L taken off today. No complaints during my visit, GI testing consultant recommendations greatly appreciated, at this time there is no evidence of active bleeding and she has had significant GI work-up in the past with no evidence of active bleeding. Nephrology consultation has also been noted and appreciated Vitals Vitals Vital Signs Date Time Temp Pulse Resp B/P (MAP) Pulse Ox O2 Delivery O2 Flow Rate FiO2 04/05/20 15:05 98.1 70 20 144/71 (95) 96 Room Air 98.1 Physical Exam General: Alert, Oriented X3, Cooperative, mild distress Heart: Regular rate Lungs: Clear, Wheezing Abdomen: Normal bowel sounds, Soft, No tenderness Extremities: No cyanosis Skin: No breakdown Labs LABS Laboratory Tests Test 04/04/20 16:46 04/04/20 19:43 04/05/20 05:05 04/05/20 07:32 Glucose (Fingerstick) 72 mg/dL (70-99) 112 mg/dL (70-99) 103 mg/dL (70-99) White Blood Count 2.2 x10^3/uL (4.0-11.0) Red Blood Count 1.84 x10^6/uL (3.50-5.40) Hemoglobin 6.1 g/dL (12.0-15.5) Hematocrit 17.7 % (36.0-47.0) Mean Corpuscular Volume 96 fL (79-100) Mean Corpuscular Hemoglobin 33 pg (25-35) Mean Corpuscular Hemoglobin Concent 34 g/dL (31-37) Red Cell Distribution Width 21.4 % (11.5-14.5) Platelet Count 130 x10^3/uL (140-400) Neutrophils (%) (Auto) 64 % (31-73) Lymphocytes (%) (Auto) 19 % (24-48) Monocytes (%) (Auto) 15 % (0-9) Eosinophils (%) (Auto) 1 % (0-3) Basophils (%) (Auto) 1 % (0-3) Neutrophils # (Auto) 1.4 x10^3/uL (1.8-7.7) Lymphocytes # (Auto) 0.4 x10^3/uL (1.0-4.8) Monocytes # (Auto) 0.3 x10^3/uL (0.0-1.1) Eosinophils # (Auto) 0.0 x10^3/uL (0.0-0.7) Basophils # (Auto) 0.0 x10^3/uL (0.0-0.2) Sodium Level 129 mmol/L (136-145) Potassium Level 5.0 mmol/L (3.5-5.1) Chloride Level 89 mmol/L (98-107) Carbon Dioxide Level 26 mmol/L (21-32) Anion Gap 14 (6-14) Blood Urea Nitrogen 86 mg/dL (7-20) Creatinine 9.0 mg/dL (0.6-1.0) Estimated GFR (Cockcroft-Gault) 5.3 Glucose Level 118 mg/dL (70-99) Calcium Level 8.6 mg/dL (8.5-10.1) Review of Systems Review of Systems Positive as per HPI otherwise 10 point review of system is negative Assessment and Plan Assessmemt and Plan Problems Medical Problems: (1) Cardiomegaly Status: Acute (2) Elevated troponin Status: Acute (3) Macrocytic anemia Status: Acute (4) Occult blood positive stool Status: Acute Comment Review of Relevant I have reviewed the following items tamika (where applicable) has been applied. Labs Laboratory Tests Test 04/04/20 08:45 04/04/20 11:05 04/04/20 16:46 04/04/20 19:43 White Blood Count 2.6 x10^3/uL (4.0-11.0) Red Blood Count 1.33 x10^6/uL (3.50-5.40) Hemoglobin 4.7 g/dL (12.0-15.5) Hematocrit 13.7 % (36.0-47.0) Mean Corpuscular Volume 102 fL (79-100) Mean Corpuscular Hemoglobin 35 pg (25-35) Mean Corpuscular Hemoglobin Concent 34 g/dL (31-37) Red Cell Distribution Width 21.4 % (11.5-14.5) Platelet Count 154 x10^3/uL (140-400) Neutrophils (%) (Auto) 66 % (31-73) Lymphocytes (%) (Auto) 20 % (24-48) Monocytes (%) (Auto) 11 % (0-9) Eosinophils (%) (Auto) 2 % (0-3) Basophils (%) (Auto) 1 % (0-3) Neutrophils # (Auto) 1.7 x10^3/uL (1.8-7.7) Lymphocytes # (Auto) 0.5 x10^3/uL (1.0-4.8) Monocytes # (Auto) 0.3 x10^3/uL (0.0-1.1) Eosinophils # (Auto) 0.0 x10^3/uL (0.0-0.7) Basophils # (Auto) 0.0 x10^3/uL (0.0-0.2) Platelet Estimate Adequate (ADEQUATE) Large Platelets Few Anisocytosis Mod Schistocytes Occ Prothrombin Time 15.7 SEC (11.7-14.0) Prothromb Time International Ratio 1.3 (0.8-1.1) Sodium Level 128 mmol/L (136-145) Potassium Level 4.9 mmol/L (3.5-5.1) Chloride Level 87 mmol/L (98-107) Carbon Dioxide Level 28 mmol/L (21-32) Anion Gap 13 (6-14) Blood Urea Nitrogen 80 mg/dL (7-20) Creatinine 8.4 mg/dL (0.6-1.0) Estimated GFR (Cockcroft-Gault) 5.8 BUN/Creatinine Ratio 10 (6-20) Glucose Level 118 mg/dL (70-99) Calcium Level 8.8 mg/dL (8.5-10.1) Total Bilirubin 0.4 mg/dL (0.2-1.0) Aspartate Amino Transf (AST/SGOT) 34 U/L (15-37) Alanine Aminotransferase (ALT/SGPT) 14 U/L (14-59) Alkaline Phosphatase 153 U/L (46-116) Creatine Kinase 102 U/L (26-192) Troponin I Quantitative 0.091 ng/mL (0.000-0.055) VV-Boa-Q-Type Natriuretic Peptide 93086 pg/mL (0-124) Total Protein 7.9 g/dL (6.4-8.2) Albumin 3.1 g/dL (3.4-5.0) Albumin/Globulin Ratio 0.6 (1.0-1.7) Stool Occult Blood Positive (NEG) Glucose (Fingerstick) 72 mg/dL (70-99) 112 mg/dL (70-99) Test 04/05/20 05:05 04/05/20 07:32 White Blood Count 2.2 x10^3/uL (4.0-11.0) Red Blood Count 1.84 x10^6/uL (3.50-5.40) Hemoglobin 6.1 g/dL (12.0-15.5) Hematocrit 17.7 % (36.0-47.0) Mean Corpuscular Volume 96 fL (79-100) Mean Corpuscular Hemoglobin 33 pg (25-35) Mean Corpuscular Hemoglobin Concent 34 g/dL (31-37) Red Cell Distribution Width 21.4 % (11.5-14.5) Platelet Count 130 x10^3/uL (140-400) Neutrophils (%) (Auto) 64 % (31-73) Lymphocytes (%) (Auto) 19 % (24-48) Monocytes (%) (Auto) 15 % (0-9) Eosinophils (%) (Auto) 1 % (0-3) Basophils (%) (Auto) 1 % (0-3) Neutrophils # (Auto) 1.4 x10^3/uL (1.8-7.7) Lymphocytes # (Auto) 0.4 x10^3/uL (1.0-4.8) Monocytes # (Auto) 0.3 x10^3/uL (0.0-1.1) Eosinophils # (Auto) 0.0 x10^3/uL (0.0-0.7) Basophils # (Auto) 0.0 x10^3/uL (0.0-0.2) Sodium Level 129 mmol/L (136-145) Potassium Level 5.0 mmol/L (3.5-5.1) Chloride Level 89 mmol/L (98-107) Carbon Dioxide Level 26 mmol/L (21-32) Anion Gap 14 (6-14) Blood Urea Nitrogen 86 mg/dL (7-20) Creatinine 9.0 mg/dL (0.6-1.0) Estimated GFR (Cockcroft-Gault) 5.3 Glucose Level 118 mg/dL (70-99) Calcium Level 8.6 mg/dL (8.5-10.1) Glucose (Fingerstick) 103 mg/dL (70-99) Laboratory Tests Test 04/04/20 16:46 04/04/20 19:43 04/05/20 05:05 04/05/20 07:32 Glucose (Fingerstick) 72 mg/dL (70-99) 112 mg/dL (70-99) 103 mg/dL (70-99) White Blood Count 2.2 x10^3/uL (4.0-11.0) Red Blood Count 1.84 x10^6/uL (3.50-5.40) Hemoglobin 6.1 g/dL (12.0-15.5) Hematocrit 17.7 % (36.0-47.0) Mean Corpuscular Volume 96 fL (79-100) Mean Corpuscular Hemoglobin 33 pg (25-35) Mean Corpuscular Hemoglobin Concent 34 g/dL (31-37) Red Cell Distribution Width 21.4 % (11.5-14.5) Platelet Count 130 x10^3/uL (140-400) Neutrophils (%) (Auto) 64 % (31-73) Lymphocytes (%) (Auto) 19 % (24-48) Monocytes (%) (Auto) 15 % (0-9) Eosinophils (%) (Auto) 1 % (0-3) Basophils (%) (Auto) 1 % (0-3) Neutrophils # (Auto) 1.4 x10^3/uL (1.8-7.7) Lymphocytes # (Auto) 0.4 x10^3/uL (1.0-4.8) Monocytes # (Auto) 0.3 x10^3/uL (0.0-1.1) Eosinophils # (Auto) 0.0 x10^3/uL (0.0-0.7) Basophils # (Auto) 0.0 x10^3/uL (0.0-0.2) Sodium Level 129 mmol/L (136-145) Potassium Level 5.0 mmol/L (3.5-5.1) Chloride Level 89 mmol/L (98-107) Carbon Dioxide Level 26 mmol/L (21-32) Anion Gap 14 (6-14) Blood Urea Nitrogen 86 mg/dL (7-20) Creatinine 9.0 mg/dL (0.6-1.0) Estimated GFR (Cockcroft-Gault) 5.3 Glucose Level 118 mg/dL (70-99) Calcium Level 8.6 mg/dL (8.5-10.1) Medications Current Medications Morphine Sulfate (Morphine Sulfate) 8 mg 1X ONCE IV Last administered on 04/04/20at 11:56; Start 04/04/20 at 12:00; Stop 04/04/20 at 12:01; Status DC Morphine Sulfate (Morphine Sulfate) 4 mg STK-MED ONCE .ROUTE ; Start 04/04/20 at 11:54; Stop 04/04/20 at 11:55; Status DC Acetaminophen (Tylenol) 500 mg PRN Q6HRS PRN PO MILD PAIN, FEVER; Start 04/04/20 at 14:30 Albuterol Sulfate (Ventolin Neb Soln) 2.5 mg PRN Q2HRS PRN NEB SOB / WHILE AWAKE; Start 04/04/20 at 14:30 Ferrous Sulfate (Feosol) 325 mg BIDWMEALS PO Last administered on 04/05/20at 13:00; Start 04/04/20 at 17:00 Oxycodone/ Acetaminophen (Percocet 7.5/ 325) 1 tab PRN QID PRN PO MODERATE- SEVERE PAIN Last administered on 04/05/20at 14:34; Start 04/04/20 at 14:30 Pantoprazole Sodium (Protonix) 40 mg DAILYAC PO ; Start 04/05/20 at 07:30; Stop 04/04/20 at 15:21; Status DC Carvedilol (Coreg) 25 mg BIDWMEALS PO Last administered on 04/05/20at 13:01; Start 04/04/20 at 17:00 Folic Acid (Folic Acid) 1 mg DAILY PO Last administered on 04/05/20at 13:00; Start 04/05/20 at 09:00 Pantoprazole Sodium (Protonix) 40 mg BIDAC PO Last administered on 04/05/20at 13:00; Start 04/04/20 at 16:30 Diphenhydramine HCl (Benadryl) 25 mg 1X ONCE IVP ; Start 04/04/20 at 17:15; Stop 04/04/20 at 17:16; Status DC Diphenhydramine HCl (Benadryl) 50 mg 1X ONCE PO Last administered on 04/05/20at 02:10; Start 04/05/20 at 02:15; Stop 04/05/20 at 02:16; Status DC Diphenhydramine HCl (Benadryl) 25 mg PRN Q6HRS PRN PO ITCHING; Start 04/05/20 at 02:15 Sodium Chloride 1,000 ml @ 1,000 mls/hr Q1H PRN IV hypotension; Start 04/05/20 at 07:02; Stop 04/05/20 at 13:01; Status DC Albumin Human 200 ml @ 200 mls/hr 1X PRN PRN IV Hypotension; Start 04/05/20 at 07:15; Stop 04/05/20 at 13:14; Status DC Acetaminophen (Tylenol) 500 mg 1X PRN PRN PO MILD PAIN / TEMP > 100.3'F; Start 04/05/20 at 07:15; Stop 04/06/20 at 07:14 Diphenhydramine HCl (Benadryl) 25 mg 1X PRN PRN IV ITCHING; Start 04/05/20 at 07:15; Stop 04/06/20 at 07:14 Diphenhydramine HCl (Benadryl) 25 mg 1X PRN PRN IV ITCHING; Start 04/05/20 at 07:15; Stop 04/06/20 at 07:14 Sodium Chloride 1,000 ml @ 400 mls/hr Q2H30M PRN IV PATENCY; Start 04/05/20 at 07:02; Stop 04/05/20 at 19:01 Info (PHARMACY MONITORING -- do not chart) 1 each PRN DAILY PRN MC SEE COMMENTS; Start 04/05/20 at 07:15; Status UNV Info (PHARMACY MONITORING -- do not chart) 1 each PRN DAILY PRN MC SEE COMMENTS; Start 04/05/20 at 07:15 Darbepoetin [place] (ARANESP for DIALYSIS PTS) 60 mcg WEEKLYHS SQ ; Start 04/05/20 at 21:00 Active Scripts Active Feosol (Ferrous Sulfate) 325 Mg Tablet 325 Mg PO BIDWMEALS 60 Days Proair Hfa (Albuterol Sulfate) 8.5 Gm Hfa.aer.ad 2.5 Mg NEB PRN Q2HRS PRN 30 Days Pantoprazole Sodium (Pantoprazole Sodium) 40 Mg Tablet.dr 40 Mg PO DAILYAC 30 Days Reported Carvedilol 25 Mg Tablet 25 Mg PO BIDWMEALS Folic Acid 0.4 Mg Tablet 0.4 Mg PO DAILY Acetaminophen 500 Mg Tablet 1 Tab PO PRN Q6HRS PRN 15 Days Percocet 7.5-325 Mg Tablet (Oxycodone/Acetaminophen) 1 Each Tablet 1 Tab PO PRN QID PRN MDD 3 Tablet(s) 5 Days Vitals/I & O Vital Sign - Last 24 Hours 04/04/20 04/04/20 04/04/20/8/20 15:27 16:55 17:33 18:29 Temp 98.4 98.2 98.5 97.3 98.4 98.2 98.5 97.3 Pulse 76 78 78 81 Resp 18 18 B/P (MAP) 130/50 (76) 150/42 127/53 131/58 Pulse Ox 99 O2 Delivery Room Air 04/04/20 04/04/20 04/04/20 04/04/20 18:32 19:00 19:29 20:05 Temp 97.7 98.3 97.7 98.3 Pulse 81 76 69 Resp 18 B/P (MAP) 131/58 117/59 (78) 116/54 Pulse Ox 100 O2 Delivery Room Air Room Air 04/04/20 04/05/20 04/05/20 04/05/20 23:00 03:00 07:54 08:00 Temp 97.4 97.9 98.2 97.4 97.9 98.2 Pulse 66 63 91 Resp 18 B/P (MAP) 99/46 (63) 99/46 (63) 86/46 (59) Pulse Ox 100 95 94 O2 Delivery Room Air Room Air Room Air Room Air 04/05/20 04/05/20 04/05/20 04/05/20 08:35 08:52 09:10 10:33 Temp 97.4 97.9 97.7 97.9 97.4 97.9 97.7 97.9 Pulse 63 64 62 66 Resp 20 20 20 16 B/P (MAP) 114/75 107/65 106/62 138/72 04/05/20 04/05/20 13:01 15:05 Temp 98.1 98.1 Pulse 71 70 Resp 20 B/P (MAP) 136/31 144/71 (95) Pulse Ox 96 O2 Delivery Room Air Intake and Output 04/04/20 04/04/20 04/05/20 15:00 23:00 07:00 Intake Total 295 ml 736 ml Output Total 0 ml Balance 295 ml 736 ml 0 ml AJ FELTON MD Apr 05, 2020 15:26
[2020-04-05] MEDS ORDERED: tiZANidine 4 MG TABLET. PO PRN (15:30)
[2020-04-05] MEDS: MORPHINE SULFATE 2 MG/ML VIAL. IV PRN (15:36)
--- NOTE | 2020-04-05 17:35 | PDOC2 ---
CONSULT Date of Consult Date of Consult DATE: 04/05/20 TIME: 16:56 Reason for Consult Reason for Consult: Pancytopenia Referring Physician Referring Physician: VIELKA Goff Identification/Chief Complaint Chief Complaint Pancytopenia Source Source: Chart review, Patient History of Present Illness Reason for Visit: Mrs. Pam Fernandez is a 65 year-old female with PMH of ESRD, chronic iron- deficiency anemia, HTN, GERD, who presented to [facility] ED on 04/04/2020. She had complaints of generalized weakness, exertional shortness of breath, left shoulder pain secondary to fall on 04/02/2020. She denied hitting her head or loss of consciousness. She reported having dark stools on 04/03/2020. Per review of EMR, Pam was discharged from [facility] on 03/08/2020 for symptomatic anemia. She has reportedly received 35 blood transfusions in her lifetime. EGD by Dr. Branden Faulkner was performed on 07/21/19. It showed healed reflux at 39 cm, clean-based ulcer of prepyloric antrum, pylorus deformed, but passable. Biopsy was obtained. Pathology showed reactive gastropathy with focal mild acute and chronic inflammation. EGD was performed on 01/12/2020. It showed grade B esophagitis with some friability at GEJ. No varices. Ulcer in posterior wall of prepyloric antrum with minor amount of fresh blood in this area. Per review of EMR, Pam has had 7 EGDs since 2016, last on 01/12/[address] Branden Faulkner. She has history of recurrent UGI bleeding, refractory ulcer H. pylori negative x 2. Her last colonoscopy in 2019 at was reportedly unremarkable. Pam has been taking oral iron daily. Her Hgb was 4.7 on 04/04/2020 upon presentation to [facility]. She received transfusion 2 unit PRBCs on 04/04/2020, with improvement in Hgb up to 6.1 on 04/05/2020. She received an addition 1 unit PRBC's today, 04/05/2020. Today, Pam is being seen at the request of VIELKA Goff. Pam is being seen via telecommunications platform today. She reports feeling tired and weak. However, reports some mild improvement since receiving blood transfusions on 04/04/2020 and again today. Reports she has been on dialysis for a little more than 5 years. Denies any chest pains. Denies any nausea or vomiting. Denies any abdominal pain. Denies fevers, chills, or other signs of infection. Past Medical History Cardiovascular: HTN, Hyperlipidemia Pulmonary: No pertinent hx GI: Constipation, GERD, GI bleed Heme/Onc: Anemia NOS Hepatobiliary: No pertinent hx, Hep A/B/C Psych: Addictions Rheumatologic: Rheumatoid arthritis Infectious disease: No pertinent hx Renal/: Chronic renal failure, Hematuria Endocrine: Diabetes, Hyperparathyroidism Past Surgical History Past Surgical History: Cholecystectomy, Tonsillectomy, Hysterectomy, Other Family History Family History: Alcohol Abuse, High Cholestrol, Hypertension, Family History Unknown Social History No ALCOHOL: other (h/o overuse - today says two drinks on her birthday) Drugs: None Current Problem List Problem List Problems Medical Problems: (1) Cardiomegaly Status: Acute (2) Elevated troponin Status: Acute (3) Macrocytic anemia Status: Acute (4) Occult blood positive stool Status: Acute Current Medications Current Medications Current Medications Morphine Sulfate (Morphine Sulfate) 8 mg 1X ONCE IV Last administered on 04/04/20at 11:56; Start 04/04/20 at 12:00; Stop 04/04/20 at 12:01; Status DC Morphine Sulfate (Morphine Sulfate) 4 mg STK-MED ONCE .ROUTE ; Start 04/04/20 at 11:54; Stop 04/04/20 at 11:55; Status DC Acetaminophen (Tylenol) 500 mg PRN Q6HRS PRN PO MILD PAIN, FEVER; Start 04/04/20 at 14:30 Albuterol Sulfate (Ventolin Neb Soln) 2.5 mg PRN Q2HRS PRN NEB SOB / WHILE AWAKE; Start 04/04/20 at 14:30 Ferrous Sulfate (Feosol) 325 mg BIDWMEALS PO Last administered on 04/05/20at 13:00; Start 04/04/20 at 17:00 Oxycodone/ Acetaminophen (Percocet 7.5/ 325) 1 tab PRN QID PRN PO MODERATE- SEVERE PAIN Last administered on 04/05/20at 14:34; Start 04/04/20 at 14:30 Pantoprazole Sodium (Protonix) 40 mg DAILYAC PO ; Start 04/05/20 at 07:30; Stop 04/04/20 at 15:21; Status DC Carvedilol (Coreg) 25 mg BIDWMEALS PO Last administered on 04/05/20at 13:01; Start 04/04/20 at 17:00 Folic Acid (Folic Acid) 1 mg DAILY PO Last administered on 04/05/20at 13:00; Start 04/05/20 at 09:00 Pantoprazole Sodium (Protonix) 40 mg BIDAC PO Last administered on 04/05/20at 13:00; Start 04/04/20 at 16:30 Diphenhydramine HCl (Benadryl) 25 mg 1X ONCE IVP ; Start 04/04/20 at 17:15; Stop 04/04/20 at 17:16; Status DC Diphenhydramine HCl (Benadryl) 50 mg 1X ONCE PO Last administered on 04/05/20at 02:10; Start 04/05/20 at 02:15; Stop 04/05/20 at 02:16; Status DC Diphenhydramine HCl (Benadryl) 25 mg PRN Q6HRS PRN PO ITCHING; Start 04/05/20 at 02:15 Sodium Chloride 1,000 ml @ 1,000 mls/hr Q1H PRN IV hypotension; Start 04/05/20 at 07:02; Stop 04/05/20 at 13:01; Status DC Albumin Human 200 ml @ 200 mls/hr 1X PRN PRN IV Hypotension; Start 04/05/20 at 07:15; Stop 04/05/20 at 13:14; Status DC Acetaminophen (Tylenol) 500 mg 1X PRN PRN PO MILD PAIN / TEMP > 100.3'F; Start 04/05/20 at 07:15; Stop 04/06/20 at 07:14 Diphenhydramine HCl (Benadryl) 25 mg 1X PRN PRN IV ITCHING; Start 04/05/20 at 07:15; Stop 04/06/20 at 07:14 Diphenhydramine HCl (Benadryl) 25 mg 1X PRN PRN IV ITCHING; Start 04/05/20 at 07:15; Stop 04/06/20 at 07:14 Sodium Chloride 1,000 ml @ 400 mls/hr Q2H30M PRN IV PATENCY; Start 04/05/20 at 07:02; Stop 04/05/20 at 19:01 Info (PHARMACY MONITORING -- do not chart) 1 each PRN DAILY PRN MC SEE COMM ENTS; Start 04/05/20 at 07:15; Status UNV Info (PHARMACY MONITORING -- do not chart) 1 each PRN DAILY PRN MC SEE COMMENTS; Start 04/05/20 at 07:15 Darbepoetin [place] (ARANESP for DIALYSIS PTS) 60 mcg WEEKLYHS SQ ; Start 04/05/20 at 21:00 Morphine Sulfate (Morphine Sulfate) 2 mg PRN Q2HR PRN IV PAIN Last administered on 04/05/20at 15:36; Start 04/05/20 at 15:30 Tizanidine HCl (Zanaflex) 4 mg PRN Q8HRS PRN PO MUSCLE SPASMS; Start 04/05/20 at 15:30 Active Scripts Active Feosol (Ferrous Sulfate) 325 Mg Tablet 325 Mg PO BIDWMEALS 60 Days Proair Hfa (Albuterol Sulfate) 8.5 Gm Hfa.aer.ad 2.5 Mg NEB PRN Q2HRS PRN 30 Days Pantoprazole Sodium (Pantoprazole Sodium) 40 Mg Tablet.dr 40 Mg PO DAILYAC 30 Days Reported Carvedilol 25 Mg Tablet 25 Mg PO BIDWMEALS Folic Acid 0.4 Mg Tablet 0.4 Mg PO DAILY Acetaminophen 500 Mg Tablet 1 Tab PO PRN Q6HRS PRN 15 Days Percocet 7.5-325 Mg Tablet (Oxycodone/Acetaminophen) 1 Each Tablet 1 Tab PO PRN QID PRN MDD 3 Tablet(s) 5 Days Allergies Allergies: Coded Allergies: No Known Drug Allergies (Unverified , 12/30/19) Physical Exam General: Alert HEENT: Atraumatic Lungs: Clear to auscultation Heart: Regular rate Skin: No rashes, No breakdown, No significant lesion Neuro: Normal gait, Normal speech Psych/Mental Status: Mental status NL Vitals VITALS Vital Signs Date Time Temp Pulse Resp B/P (MAP) Pulse Ox O2 Delivery O2 Flow Rate FiO2 04/05/20 15:05 98.1 70 20 144/71 (95) 96 Room Air 98.1 Labs Labs Laboratory Tests Test 04/04/20 08:45 04/04/20 11:05 04/04/20 16:46 04/04/20 19:43 White Blood Count 2.6 x10^3/uL (4.0-11.0) Red Blood Count 1.33 x10^6/uL (3.50-5.40) Hemoglobin 4.7 g/dL (12.0-15.5) Hematocrit 13.7 % (36.0-47.0) Mean Corpuscular Volume 102 fL (79-100) Mean Corpuscular Hemoglobin 35 pg (25-35) Mean Corpuscular Hemoglobin Concent 34 g/dL (31-37) Red Cell Distribution Width 21.4 % (11.5-14.5) Platelet Count 154 x10^3/uL (140-400) Neutrophils (%) (Auto) 66 % (31-73) Lymphocytes (%) (Auto) 20 % (24-48) Monocytes (%) (Auto) 11 % (0-9) Eosinophils (%) (Auto) 2 % (0-3) Basophils (%) (Auto) 1 % (0-3) Neutrophils # (Auto) 1.7 x10^3/uL (1.8-7.7) Lymphocytes # (Auto) 0.5 x10^3/uL (1.0-4.8) Monocytes # (Auto) 0.3 x10^3/uL (0.0-1.1) Eosinophils # (Auto) 0.0 x10^3/uL (0.0-0.7) Basophils # (Auto) 0.0 x10^3/uL (0.0-0.2) Platelet Estimate Adequate (ADEQUATE) Large Platelets Few Anisocytosis Mod Schistocytes Occ Prothrombin Time 15.7 SEC (11.7-14.0) Prothromb Time International Ratio 1.3 (0.8-1.1) Sodium Level 128 mmol/L (136-145) Potassium Level 4.9 mmol/L (3.5-5.1) Chloride Level 87 mmol/L (98-107) Carbon Dioxide Level 28 mmol/L (21-32) Anion Gap 13 (6-14) Blood Urea Nitrogen 80 mg/dL (7-20) Creatinine 8.4 mg/dL (0.6-1.0) Estimated GFR (Cockcroft-Gault) 5.8 BUN/Creatinine Ratio 10 (6-20) Glucose Level 118 mg/dL (70-99) Calcium Level 8.8 mg/dL (8.5-10.1) Total Bilirubin 0.4 mg/dL (0.2-1.0) Aspartate Amino Transf (AST/SGOT) 34 U/L (15-37) Alanine Aminotransferase (ALT/SGPT) 14 U/L (14-59) Alkaline Phosphatase 153 U/L (46-116) Creatine Kinase 102 U/L (26-192) Troponin I Quantitative 0.091 ng/mL (0.000-0.055) VQ-Bul-W-Type Natriuretic Peptide 54512 pg/mL (0-124) Total Protein 7.9 g/dL (6.4-8.2) Albumin 3.1 g/dL (3.4-5.0) Albumin/Globulin Ratio 0.6 (1.0-1.7) Stool Occult Blood Positive (NEG) Glucose (Fingerstick) 72 mg/dL (70-99) 112 mg/dL (70-99) Test 04/05/20 05:05 04/05/20 07:32 04/05/20 16:06 White Blood Count 2.2 x10^3/uL (4.0-11.0) Red Blood Count 1.84 x10^6/uL (3.50-5.40) Hemoglobin 6.1 g/dL (12.0-15.5) Hematocrit 17.7 % (36.0-47.0) Mean Corpuscular Volume 96 fL (79-100) Mean Corpuscular Hemoglobin 33 pg (25-35) Mean Corpuscular Hemoglobin Concent 34 g/dL (31-37) Red Cell Distribution Width 21.4 % (11.5-14.5) Platelet Count 130 x10^3/uL (140-400) Neutrophils (%) (Auto) 64 % (31-73) Lymphocytes (%) (Auto) 19 % (24-48) Monocytes (%) (Auto) 15 % (0-9) Eosinophils (%) (Auto) 1 % (0-3) Basophils (%) (Auto) 1 % (0-3) Neutrophils # (Auto) 1.4 x10^3/uL (1.8-7.7) Lymphocytes # (Auto) 0.4 x10^3/uL (1.0-4.8) Monocytes # (Auto) 0.3 x10^3/uL (0.0-1.1) Eosinophils # (Auto) 0.0 x10^3/uL (0.0-0.7) Basophils # (Auto) 0.0 x10^3/uL (0.0-0.2) Sodium Level 129 mmol/L (136-145) Potassium Level 5.0 mmol/L (3.5-5.1) Chloride Level 89 mmol/L (98-107) Carbon Dioxide Level 26 mmol/L (21-32) Anion Gap 14 (6-14) Blood Urea Nitrogen 86 mg/dL (7-20) Creatinine 9.0 mg/dL (0.6-1.0) Estimated GFR (Cockcroft-Gault) 5.3 Glucose Level 118 mg/dL (70-99) Calcium Level 8.6 mg/dL (8.5-10.1) Glucose (Fingerstick) 103 mg/dL (70-99) 129 mg/dL (70-99) Laboratory Tests Test 04/04/20 19:43 04/05/20 05:05 04/05/20 07:32 04/05/20 16:06 Glucose (Fingerstick) 112 mg/dL (70-99) 103 mg/dL (70-99) 129 mg/dL (70-99) White Blood Count 2.2 x10^3/uL (4.0-11.0) Red Blood Count 1.84 x10^6/uL (3.50-5.40) Hemoglobin 6.1 g/dL (12.0-15.5) Hematocrit 17.7 % (36.0-47.0) Mean Corpuscular Volume 96 fL (79-100) Mean Corpuscular Hemoglobin 33 pg (25-35) Mean Corpuscular Hemoglobin Concent 34 g/dL (31-37) Red Cell Distribution Width 21.4 % (11.5-14.5) Platelet Count 130 x10^3/uL (140-400) Neutrophils (%) (Auto) 64 % (31-73) Lymphocytes (%) (Auto) 19 % (24-48) Monocytes (%) (Auto) 15 % (0-9) Eosinophils (%) (Auto) 1 % (0-3) Basophils (%) (Auto) 1 % (0-3) Neutrophils # (Auto) 1.4 x10^3/uL (1.8-7.7) Lymphocytes # (Auto) 0.4 x10^3/uL (1.0-4.8) Monocytes # (Auto) 0.3 x10^3/uL (0.0-1.1) Eosinophils # (Auto) 0.0 x10^3/uL (0.0-0.7) Basophils # (Auto) 0.0 x10^3/uL (0.0-0.2) Sodium Level 129 mmol/L (136-145) Potassium Level 5.0 mmol/L (3.5-5.1) Chloride Level 89 mmol/L (98-107) Carbon Dioxide Level 26 mmol/L (21-32) Anion Gap 14 (6-14) Blood Urea Nitrogen 86 mg/dL (7-20) Creatinine 9.0 mg/dL (0.6-1.0) Estimated GFR (Cockcroft-Gault) 5.3 Glucose Level 118 mg/dL (70-99) Calcium Level 8.6 mg/dL (8.5-10.1) Images Images 04/04/2020 3 Views Left Shoulder DATE: 04/04/2020 9:06 AM INDICATION: fall / Spl. Instructions: / History: COMPARISON: 09/22/2019 There is no evidence for acute fracture or dislocation. AC joint is congruent. There is heterogeneous sclerosis of the left humeral head lucencies of the articular surface. In addition there is lucency within the glenoid. Humeral head is not high riding. Heart is enlarged. Aortic calcifications are seen. IMPRESSION: 1. No acute fracture or dislocation. 2. Large lucencies within the left humeral head and glenoid are favored to represent degenerative cystic change. However given the relatively rapid change compared to prior examination 09/22/2019, underlying infectious or erosive arthropathy is also a consideration. 04/04/2020 AP portable chest radiograph 04/04/2020 Clinical History: Shortness of breath. An AP erect portable digital radiograph of the chest was obtained. Comparison study is dated 02/11/2020. The cardiac silhouette is mildly enlarged. The thoracic aorta is tortuous. Atherosclerotic calcification thoracic aorta is seen. No acute pulmonary infiltrate is noted. No pneumothorax or pleural effusion is seen. The osseous structures are unchanged. Impression: Cardiomegaly. No acute pulmonary infiltrate is seen. 03/08/2020 SHOULDER BILAT 2+V History: Pain Comparison: September 22, 2019. Left shoulder: Severe left glenohumeral DJD, similar compared to prior. Mild left acromioclavicular DJD. Lucent lesion within the left humeral head, may relate to subchondral cystic changes. Normal alignment of the left glenohumeral and acromioclavicular joints. No fracture. Soft tissues unremarkable. Right shoulder: Mild right acromioclavicular and glenohumeral DJD. Normal alignment of the right glenohumeral and acromioclavicular joints. No fracture. Soft tissues unremarkable. Impression: 1. No acute osseous abnormalities. 2. Severe left and mild right glenohumeral DJD. 3. Mild bilateral acromioclavicular DJD. 12/29/2019 CT ABDOMEN PELVIS WO CONTRAST Indication: Abdominal pain. Exposure: One or more of the following individualized dose reduction techniques were utilized for this examination: 1. Automated exposure control 2. Adjustment of the mA and/or kV according to patient size 3. Use of iterative reconstruction technique. Comparison: None are available. Evaluation of solid viscera, bowel and vasculature is compromised by the no ncontrast technique. Comparison: 09/21/2019. FINDINGS: Heart size is enlarged. Mild atelectasis or infiltrate in the right lung base. Mitral annular calcifications are again noted. No evidence of pericardial effusion. No focal hepatic lesion is seen. Liver again appears to be enlarged at 18.5 cm cephalocaudal. Spleen appears unremarkable. Pancreas is difficult to separate fr om some adjacent unopacified bowel loops, no definite pancreatic attenuation abnormality. There is stranding in the fat around the pancreas without fluid collection. No evidence of adrenal mass. Kidneys demonstrate no significant hydronephrosis. Small nonobstructive right lower pole renal calculus is again identified. Stranding in the perinephric fat is again seen bilaterally. Gallbladder is surgically absent. The aorta is calcified, without evidence of an aneurysm. No evidence of pathologic lymph node enlargement. There is distention of the inferior vena cava. Mild wall thickening of the duodenum, similar to the prior study. No significant small bowel distention. No evidence of acute colitis. Mild ascites is identified, although less than what was seen on the prior study. The ascites has a simple appearance with measurement of 17 Hounsfield units. Urinary bladder is not well distended but grossly unremarkable. There is diffuse stranding within the peritoneal fat, somewhat similar finding was seen previously. There is also generalized fascial thickening. Diffuse stranding within the subcutaneous fat. Vertebral body height and alignment are stable. Degenerative spondylosis. Ununited fractures of the right pubic rami and pubic bone are again identified. IMPRESSION: 1. Diffuse stranding throughout the peritoneal, retroperitoneal and subcutaneous fat, with fascial thickening, mild ascites and IVC distention. Note this is similar to what was seen on the prior study. Nonspecific, could be due to generalized edema or inflammatory process. Correlate for right ventricular failure. Note that inflammatory process such as pancreatitis or pyelonephritis could be considered depending on clinical concern. 2. Mild wall thickening of the duodenum, similar to prior study. 3. Mild infiltrate or atelectasis in lung bases. 4. Cardiomegaly again seen. 5. Nonobstructive right lower pole renal calculus is again seen. 09/22/19 Study: CR upper GI series with air/barium - no KUB INDICATION: Persistent prepyloric ulcer. Concern for penetration or perforation. COMPARISON: Correlation is made to the CT abdomen/pelvis from 09/21/2019. No mucosal abnormality, stricture or mass was seen throughout the esophagus. No large hiatal hernia. No significant reflux of contrast from the stomach into the esophagus during the study was visualized. Maintained stripping wave with clearance of ingested contrast rapidly from the esophagus into the stomach. Vascular coils noted along the undersurface of the distal stomach in the region of the antrum/pylorus. Real-time evaluation of the stomach and duodenum revealed no extravasation of ingested contrast to suggest a perforated ulcer. No outpouching of contrast was definitively seen to suggest a perforating ulceration as well. The distal antrum/pyloric region was not seen to distend normally throughout the course of the study which could represent a manifestation of edematous/inflamed mucosa. Despite this finding, contrast passed normally and rapidly into the duodenum and into the proximal small bowel. IMPRESSION: 1. No fluoroscopic evidence for a perforated or penetrating gastric ulcer. Diminished luminal caliber at the distal antrum/pylorus raising the question of edematous/heaped up mucosa in this region but without associated stenosis as contrast passed normally into the duodenum. 2. No concerning abnormality throughout the esophagus Assessment/Plan Assessment/Plan 65 year-old female with macrocytic anemia and evidence of upper GI bleeding in this patient with history of liver cirrhosis, ESRD, hepatitis C, alcohol abuse, obesity, and other chronic conditions. Iron saturation of 10% (serum iron 25, TIBC 258 as of 01/2020) is suggestive for iron deficiency. Elevated ferritin of 322 from 01/2020 is consistent with inflammation. In the past the patient had M-spike of 0 and normal vitamin B12 level. Differential diagnosis for macrocytic anemia is broad and includes liver disease, alcohol use, hemolysis, multiple myeloma, vitamin B12/folate defic iency, and others. Patients leukopenia and thrombocytopenia are secondary to liver cirrhosis. PLAN: 1. MMA, DUNG, serum VALENTINO/light chains, reticulocyte count, EPO level, LDH, and haptoglobin, next available. 2. CBC and folate on next visit. 3. Follow-up at [facility] in 2 weeks. Thank you for the opportunity to see your patient. Please call with any questions or concerns. Ryan Perez MD. [phone]. AFSHIN PEREZ MD Apr 05, 2020 17:35
[2020-04-05] MEDS ORDERED: DARBEPOETIN ALFA 60 MCG/0.3 ML DISP.SYRIN. SQ SCH (21:00)
[2020-04-06 03:12] VITALS: BP 99/40
[2020-04-06 03:44] LABS: RED BLOOD COUNT 2.11 x10^6/uL (3.50-5.40); RED CELL DISTRIBUTION WIDTH 21.3 % (11.5-14.5); WHITE BLOOD COUNT 2.4 x10^3/uL (4.0-11.0)
[2020-04-06 03:52] LABS: CALCIUM 8.4 mg/dL (8.5-10.1); CREATININE 5.8 mg/dL (0.6-1.0); GFR 8.8; POTASSIUM 3.9 mmol/L (3.5-5.1)
[2020-04-06 04:16] LABS: HEMATOCRIT 20.3 % (36.0-47.0)
[2020-04-06 07:48] VITALS: BP 110/53
[2020-04-06] MEDS: CARVEDILOL 12.5 MG TABLET. PO SCH ×2 (09:16→18:12)
[2020-04-06] MEDS: FERROUS SULFATE 325 MG TABLET. PO SCH ×2 (09:16→18:12)
[2020-04-06] MEDS: oxyCODONE/APAP 7.5/325 1 TAB TABLET PO PRN ×2 (09:16→18:15)
[2020-04-06] MEDS: FOLIC ACID 1 MG TABLET. PO SCH (09:16)
[2020-04-06] MEDS: PANTOPRAZOLE 40 MG TABLET.DR. PO SCH ×2 (09:16→18:13)
--- NOTE | 2020-04-06 09:55 | PDOC ---
Subjective: Subjective: Just got out of the shower, trying to get warm. Stooled yesterday, thinks it was dark. Eating some. Thinks press hand talked to her nurse. Objective: Objective: D/w nurse - plan is to recheck labs tomorrow and possibly DC after dialysis and follow-up w/ hematology as outpt. Reviewed hematology note: Differential diagnosis for macrocytic anemia is broad and includes liver disease, alcohol use, hemolysis, multiple myeloma, vitamin B12/folate deficiency, and others. Patients leukopenia and thrombocytopenia are secondary to liver cirrhosis. PLAN: 1. MMA, DUNG, serum VALENTINO/light chains, reticulocyte count, EPO level, LDH, and haptoglobin, next available. 2. CBC and folate on next visit. 3. Follow-up at [facility] in 2 weeks. Vital Signs: Vital Signs Date Time Temp Pulse Resp B/P (MAP) Pulse Ox O2 Delivery O2 Flow Rate FiO2 04/06/20 09:16 65 110/53 04/06/20 09:16 Room Air 04/06/20 07:48 98.3 18 96 98.3 Labs: Laboratory Tests Test 04/05/20 16:06 04/05/20 18:00 04/05/20 20:29 04/06/20 02:50 Glucose (Fingerstick) 129 mg/dL 130 mg/dL Red Blood Count 2.14 x10^6/uL 2.11 x10^6/uL Absolute Reticulocyte Count 0.084 x10^6/uL Percent Reticulocyte Count 3.9 % Immature Reticulocyte Fraction 0.43 Lactate Dehydrogenase 201 U/L White Blood Count 2.4 x10^3/uL Hemoglobin 7.0 g/dL Hematocrit 20.3 % Mean Corpuscular Volume 96 fL Mean Corpuscular Hemoglobin 33 pg Mean Corpuscular Hemoglobin Concent 35 g/dL Red Cell Distribution Width 21.3 % Platelet Count 130 x10^3/uL Sodium Level 135 mmol/L Potassium Level 3.9 mmol/L Chloride Level 96 mmol/L Carbon Dioxide Level 30 mmol/L Anion Gap 9 Blood Urea Nitrogen 40 mg/dL Creatinine 5.8 mg/dL Estimated GFR (Cockcroft-Gault) 8.8 Glucose Level 131 mg/dL Calcium Level 8.4 mg/dL Test 04/06/20 07:26 Glucose (Fingerstick) 129 mg/dL PE: GEN: NAD, in recliner LUNGS: CTAB anteriorly HEART: RRR ABD: mild discomfort upper abdomen NEURO/PSYCH: A & O 3, not too talkative today A/P: Chronic anemia, recurrent UGI bleeding/refractory ulcer ESRD on HD -- Continue PPI, other per Dr. Faulkner. Justicifation of Admission Dx: Justifications for Admission: Justification of Admission Dx: Yes Chronic Renal Failure: Hemodynamic Instability IRIS SZYMANSKI Apr 06, 2020 09:55
--- NOTE | 2020-04-06 11:56 | PDOC ---
Renal-Progress Notes Subjective Notes Notes NO NEW COMPLAINTS History of Present Illness Hx of present illness STABLE Vitals Vitals Vital Signs Date Time Temp Pulse Resp B/P (MAP) Pulse Ox O2 Delivery O2 Flow Rate FiO2 04/06/20 09:16 65 110/53 04/06/20 09:16 Room Air 04/06/20 07:48 98.3 18 96 98.3 Weight Weight [ ] I.O. Intake and Output Intake and Output 04/06/20 07:00 Intake Total 1250 ml Output Total 0 ml Balance 1250 ml Intake Oral 950 ml Blood Product IV Normal Saline Flush 300 ml Output Urine Total 0 ml # Voids 1 # Bowel Movements 1 Labs Labs Laboratory Tests Test 04/05/20 16:06 04/05/20 18:00 04/05/20 20:29 04/06/20 02:50 Glucose (Fingerstick) 129 mg/dL (70-99) 130 mg/dL (70-99) Red Blood Count 2.14 x10^6/uL (3.50-5.70) 2.11 x10^6/uL (3.50-5.40) Absolute Reticulocyte Count 0.084 x10^6/uL (0.020-0.120) Percent Reticulocyte Count 3.9 % (0.5-2.3) Immature Reticulocyte Fraction 0.43 (0.20-0.60) Lactate Dehydrogenase 201 U/L (81-234) White Blood Count 2.4 x10^3/uL (4.0-11.0) Hemoglobin 7.0 g/dL (12.0-15.5) Hematocrit 20.3 % (36.0-47.0) Mean Corpuscular Volume 96 fL (79-100) Mean Corpuscular Hemoglobin 33 pg (25-35) Mean Corpuscular Hemoglobin Concent 35 g/dL (31-37) Red Cell Distribution Width 21.3 % (11.5-14.5) Platelet Count 130 x10^3/uL (140-400) Sodium Level 135 mmol/L (136-145) Potassium Level 3.9 mmol/L (3.5-5.1) Chloride Level 96 mmol/L (98-107) Carbon Dioxide Level 30 mmol/L (21-32) Anion Gap 9 (6-14) Blood Urea Nitrogen 40 mg/dL (7-20) Creatinine 5.8 mg/dL (0.6-1.0) Estimated GFR (Cockcroft-Gault) 8.8 Glucose Level 131 mg/dL (70-99) Calcium Level 8.4 mg/dL (8.5-10.1) Test 04/06/20 07:26 04/06/20 11:43 Glucose (Fingerstick) 129 mg/dL (70-99) 96 mg/dL (70-99) Review of Systems Constitutional: yes: weakness, alert, oriented Ears/Nose/Throat: Yes: no symptom reported Eyes: Yes: no symptom reported Pulmonary: Yes no symptom reported Cardiovascular: Yes no symptom reported Gastrointestional: Yes: nausea, melena Genitourinary: Yes: no symptom reported Musculoskeletal: Yes: no symptom reported Skin: Yes no symptom reported Psychiatric/Neurological: Yes: no symptom reported Endocrine: Yes: no symptom reported, flushing Physical Exam General Appearance: no apparent distress Skin: warm Respiratory: bilateral CTA Heart: S1S2 Abdomen: bowel sounds present Genitourinary: bladder flat Extremities: pulses present Neurology: alert Assessment Assessment IMP ESRD ANEMIA OF BLOOD LOSS-UGI ANEMIA OF ESRD NON COMPLIANCE DM II HTN DSYPNEA DUE TO ANEMIA PLAN HD TTS PRBC NEEDED PANCYTOPENIA W/U HEME EVAL GI EVAL AMOL WILL FOLLOW LINNEA SHULTZ MD Apr 06, 2020 11:56
[2020-04-06 11:59] VITALS: BP 99/39
--- NOTE | 2020-04-06 12:45 | PDOC ---
PROGRESS NOTES Chief Complaint Chief Complaint Shortness of breath - likely related to mild uremia, fluid overload, symptomatic anemia. Acute anemia - Hb 4.7. continuing GI bleed. 2u PRBC ordered End-stage renal disease on dialysis - Nephrology consulted H/o pancreatitis, alcoholic - wine drinker Mild bilateral knee osteoarthritis with suspected trace right knee effusion. Chronic back pain Previous gastrointestinal bleed HX Clostridium difficile Cholelithiasis Obesity Trace tricuspid regurgitation with an estimated PAP of 52 mmHg. Arteriovenous shunt Moderate protein calorie malnutrition - Albumin 2.8 Back and shoulder pain s/p fall - PT evaluation +Hemoccult H/o recurrent UGI bleeding, refractory ulcer - H. pylori negative x 2, last endotherapy 01/12/20 (has had 7 EGDs since 2016), past GDA embolization (poor surgical candidate) GERD cirrhosis Hep C FEN - Renal PPX - SCDs FULL CODE Dispo -home in the morning after dialysis if hemoglobin remains stable, GI does not plan endoscopies in light of abscence of active bleeding. History of Present Illness History of Present Illness Ms Fernandez is a 64 yo F w/ PMHx ESRD on HD TuThSa, PUD with previous GI bleeding, hypertension, hyperlipidemia, GERD, constipation, rheumatoid arthritis, diabetes, hyperparathyroidism, hep C, cirrhosis, and alcohol abuse p/w weakness, exertional shortness of breath with a fall on Saturday's, complains of left shoulder pain. Patient states she missed dialysis on Saturday due to the fall. Ambulates with a walker. Reports she did not hit her head or lose consciousness. Has no routine primary care physician. Patient states "I feel so bad I just cannot move." States she started having dark stools yesterday. Hb 4.7 in ED, Na 128, BNP > 160K, called for admission for further care 04/05/2020 Patient receiving 1 unit of packed red blood cell during dialysis. She denies chest pain she does feel weak tolerating dialysis well. Seems to be fluid overloaded and she will have at least 2 L taken off today. No complaints during my visit, GI sap ppm consultant recommendations greatly appreciated, at this time there is no evidence of active bleeding and she has had significant GI work-up in the past with no evidence of active bleeding. Nephrology consultation has also been noted and appreciated 04/06/2020 No acute events reported overnight, case discussed with nursing staff patient in no acute distress no complaints during my visit hemoglobin noted, patient will stay 1 more night labs in the morning hemodialysis in the morning if no further needs for transfusion she may be discharged after her treatment Vitals Vitals Vital Signs Date Time Temp Pulse Resp B/P (MAP) Pulse Ox O2 Delivery O2 Flow Rate FiO2 04/06/20 11:59 97.5 64 18 99/39 (59) 97 Room Air 97.5 Physical Exam General: Alert Heart: Regular rate Lungs: Clear, Wheezing Abdomen: Normal bowel sounds, Soft, No tenderness Extremities: No cyanosis Skin: No rashes, No breakdown, No significant lesion Labs LABS Laboratory Tests Test 04/05/20 16:06 04/05/20 18:00 04/05/20 20:29 04/06/20 02:50 Glucose (Fingerstick) 129 mg/dL (70-99) 130 mg/dL (70-99) Red Blood Count 2.14 x10^6/uL (3.50-5.70) 2.11 x10^6/uL (3.50-5.40) Absolute Reticulocyte Count 0.084 x10^6/uL (0.020-0.120) Percent Reticulocyte Count 3.9 % (0.5-2.3) Immature Reticulocyte Fraction 0.43 (0.20-0.60) Lactate Dehydrogenase 201 U/L (81-234) White Blood Count 2.4 x10^3/uL (4.0-11.0) Hemoglobin 7.0 g/dL (12.0-15.5) Hematocrit 20.3 % (36.0-47.0) Mean Corpuscular Volume 96 fL (79-100) Mean Corpuscular Hemoglobin 33 pg (25-35) Mean Corpuscular Hemoglobin Concent 35 g/dL (31-37) Red Cell Distribution Width 21.3 % (11.5-14.5) Platelet Count 130 x10^3/uL (140-400) Sodium Level 135 mmol/L (136-145) Potassium Level 3.9 mmol/L (3.5-5.1) Chloride Level 96 mmol/L (98-107) Carbon Dioxide Level 30 mmol/L (21-32) Anion Gap 9 (6-14) Blood Urea Nitrogen 40 mg/dL (7-20) Creatinine 5.8 mg/dL (0.6-1.0) Estimated GFR (Cockcroft-Gault) 8.8 Glucose Level 131 mg/dL (70-99) Calcium Level 8.4 mg/dL (8.5-10.1) Test 04/06/20 07:26 04/06/20 11:43 Glucose (Fingerstick) 129 mg/dL (70-99) 96 mg/dL (70-99) Assessment and Plan Assessmemt and Plan Problems Medical Problems: (1) Cardiomegaly Status: Acute (2) Elevated troponin Status: Acute (3) Macrocytic anemia Status: Acute (4) Occult blood positive stool Status: Acute Comment Review of Relevant I have reviewed the following items tamika (where applicable) has been applied. Labs Laboratory Tests Test 04/04/20 16:46 04/04/20 19:43 04/05/20 05:05 04/05/20 07:32 Glucose (Fingerstick) 72 mg/dL (70-99) 112 mg/dL (70-99) 103 mg/dL (70-99) White Blood Count 2.2 x10^3/uL (4.0-11.0) Red Blood Count 1.84 x10^6/uL (3.50-5.40) Hemoglobin 6.1 g/dL (12.0-15.5) Hematocrit 17.7 % (36.0-47.0) Mean Corpuscular Volume 96 fL (79-100) Mean Corpuscular Hemoglobin 33 pg (25-35) Mean Corpuscular Hemoglobin Concent 34 g/dL (31-37) Red Cell Distribution Width 21.4 % (11.5-14.5) Platelet Count 130 x10^3/uL (140-400) Neutrophils (%) (Auto) 64 % (31-73) Lymphocytes (%) (Auto) 19 % (24-48) Monocytes (%) (Auto) 15 % (0-9) Eosinophils (%) (Auto) 1 % (0-3) Basophils (%) (Auto) 1 % (0-3) Neutrophils # (Auto) 1.4 x10^3/uL (1.8-7.7) Lymphocytes # (Auto) 0.4 x10^3/uL (1.0-4.8) Monocytes # (Auto) 0.3 x10^3/uL (0.0-1.1) Eosinophils # (Auto) 0.0 x10^3/uL (0.0-0.7) Basophils # (Auto) 0.0 x10^3/uL (0.0-0.2) Sodium Level 129 mmol/L (136-145) Potassium Level 5.0 mmol/L (3.5-5.1) Chloride Level 89 mmol/L (98-107) Carbon Dioxide Level 26 mmol/L (21-32) Anion Gap 14 (6-14) Blood Urea Nitrogen 86 mg/dL (7-20) Creatinine 9.0 mg/dL (0.6-1.0) Estimated GFR (Cockcroft-Gault) 5.3 Glucose Level 118 mg/dL (70-99) Calcium Level 8.6 mg/dL (8.5-10.1) Test 04/05/20 16:06 04/05/20 18:00 04/05/20 20:29 04/06/20 02:50 Glucose (Fingerstick) 129 mg/dL (70-99) 130 mg/dL (70-99) Red Blood Count 2.14 x10^6/uL (3.50-5.70) 2.11 x10^6/uL (3.50-5.40) Absolute Reticulocyte Count 0.084 x10^6/uL (0.020-0.120) Percent Reticulocyte Count 3.9 % (0.5-2.3) Immature Reticulocyte Fraction 0.43 (0.20-0.60) Lactate Dehydrogenase 201 U/L (81-234) White Blood Count 2.4 x10^3/uL (4.0-11.0) Hemoglobin 7.0 g/dL (12.0-15.5) Hematocrit 20.3 % (36.0-47.0) Mean Corpuscular Volume 96 fL (79-100) Mean Corpuscular Hemoglobin 33 pg (25-35) Mean Corpuscular Hemoglobin Concent 35 g/dL (31-37) Red Cell Distribution Width 21.3 % (11.5-14.5) Platelet Count 130 x10^3/uL (140-400) Sodium Level 135 mmol/L (136-145) Potassium Level 3.9 mmol/L (3.5-5.1) Chloride Level 96 mmol/L (98-107) Carbon Dioxide Level 30 mmol/L (21-32) Anion Gap 9 (6-14) Blood Urea Nitrogen 40 mg/dL (7-20) Creatinine 5.8 mg/dL (0.6-1.0) Estimated GFR (Cockcroft-Gault) 8.8 Glucose Level 131 mg/dL (70-99) Calcium Level 8.4 mg/dL (8.5-10.1) Test 04/06/20 07:26 04/06/20 11:43 Glucose (Fingerstick) 129 mg/dL (70-99) 96 mg/dL (70-99) Laboratory Tests Test 04/05/20 16:06 04/05/20 18:00 04/05/20 20:29 04/06/20 02:50 Glucose (Fingerstick) 129 mg/dL (70-99) 130 mg/dL (70-99) Red Blood Count 2.14 x10^6/uL (3.50-5.70) 2.11 x10^6/uL (3.50-5.40) Absolute Reticulocyte Count 0.084 x10^6/uL (0.020-0.120) Percent Reticulocyte Count 3.9 % (0.5-2.3) Immature Reticulocyte Fraction 0.43 (0.20-0.60) Lactate Dehydrogenase 201 U/L (81-234) White Blood Count 2.4 x10^3/uL (4.0-11.0) Hemoglobin 7.0 g/dL (12.0-15.5) Hematocrit 20.3 % (36.0-47.0) Mean Corpuscular Volume 96 fL (79-100) Mean Corpuscular Hemoglobin 33 pg (25-35) Mean Corpuscular Hemoglobin Concent 35 g/dL (31-37) Red Cell Distribution Width 21.3 % (11.5-14.5) Platelet Count 130 x10^3/uL (140-400) Sodium Level 135 mmol/L (136-145) Potassium Level 3.9 mmol/L (3.5-5.1) Chloride Level 96 mmol/L (98-107) Carbon Dioxide Level 30 mmol/L (21-32) Anion Gap 9 (6-14) Blood Urea Nitrogen 40 mg/dL (7-20) Creatinine 5.8 mg/dL (0.6-1.0) Estimated GFR (Cockcroft-Gault) 8.8 Glucose Level 131 mg/dL (70-99) Calcium Level 8.4 mg/dL (8.5-10.1) Test 04/06/20 07:26 04/06/20 11:43 Glucose (Fingerstick) 129 mg/dL (70-99) 96 mg/dL (70-99) Medications Current Medications Morphine Sulfate (Morphine Sulfate) 8 mg 1X ONCE IV Last administered on 04/04/20at 11:56; Start 04/04/20 at 12:00; Stop 04/04/20 at 12:01; Status DC Morphine Sulfate (Morphine Sulfate) 4 mg STK-MED ONCE .ROUTE ; Start 04/04/20 at 11:54; Stop 04/04/20 at 11:55; Status DC Acetaminophen (Tylenol) 500 mg PRN Q6HRS PRN PO MILD PAIN, FEVER; Start 04/04/20 at 14:30 Albuterol Sulfate (Ventolin Neb Soln) 2.5 mg PRN Q2HRS PRN NEB SOB / WHILE AWAKE; Start 04/04/20 at 14:30 Ferrous Sulfate (Feosol) 325 mg BIDWMEALS PO Last administered on 04/06/20at 09:16; Start 04/04/20 at 17:00 Oxycodone/ Acetaminophen (Percocet 7.5/ 325) 1 tab PRN QID PRN PO MODERATE- SEVERE PAIN Last administered on 04/06/20at 09:16; Start 04/04/20 at 14:30 Pantoprazole Sodium (Protonix) 40 mg DAILYAC PO ; Start 04/05/20 at 07:30; Stop 04/04/20 at 15:21; Status DC Carvedilol (Coreg) 25 mg BIDWMEALS PO Last administered on 04/06/20at 09:16; Start 04/04/20 at 17:00 Folic Acid (Folic Acid) 1 mg DAILY PO Last administered on 04/06/20at 09:16; Start 04/05/20 at 09:00 Pantoprazole Sodium (Protonix) 40 mg BIDAC PO Last administered on 04/06/20at 09:16; Start 04/04/20 at 16:30 Diphenhydramine HCl (Benadryl) 25 mg 1X ONCE IVP ; Start 04/04/20 at 17:15; Stop 04/04/20 at 17:16; Status DC Diphenhydramine HCl (Benadryl) 50 mg 1X ONCE PO Last administered on 04/05/20at 02:10; Start 04/05/20 at 02:15; Stop 04/05/20 at 02:16; Status DC Diphenhydramine HCl (Benadryl) 25 mg PRN Q6HRS PRN PO ITCHING; Start 04/05/20 at 02:15 Sodium Chloride 1,000 ml @ 1,000 mls/hr Q1H PRN IV hypotension; Start 04/05/20 at 07:02; Stop 04/05/20 at 13:01; Status DC Albumin Human 200 ml @ 200 mls/hr 1X PRN PRN IV Hypotension; Start 04/05/20 at 07:15; Stop 04/05/20 at 13:14; Status DC Acetaminophen (Tylenol) 500 mg 1X PRN PRN PO MILD PAIN / TEMP > 100.3'F; Start 04/05/20 at 07:15; Stop 04/06/20 at 07:14; Status DC Diphenhydramine HCl (Benadryl) 25 mg 1X PRN PRN IV ITCHING; Start 04/05/20 at 07:15; Stop 04/06/20 at 07:14; Status DC Diphenhydramine HCl (Benadryl) 25 mg 1X PRN PRN IV ITCHING; Start 04/05/20 at 07:15; Stop 04/06/20 at 07:14; Status DC Sodium Chloride 1,000 ml @ 400 mls/hr Q2H30M PRN IV PATENCY; Start 04/05/20 at 07:02; Stop 04/05/20 at 19:01; Status DC Info (PHARMACY MONITORING -- do not chart) 1 each PRN DAILY PRN MC SEE COMMENTS; Start 04/05/20 at 07:15; Status UNV Info (PHARMACY MONITORING -- do not chart) 1 each PRN DAILY PRN MC SEE COMMENTS; Start 04/05/20 at 07:15 Darbepoetin [place] (ARANESP for DIALYSIS PTS) 60 mcg WEEKLYHS SQ Last admini stered on 04/05/20at 21:48; Start 04/05/20 at 21:00 Morphine Sulfate (Morphine Sulfate) 2 mg PRN Q2HR PRN IV PAIN Last administered on 04/05/20at 15:36; Start 04/05/20 at 15:30 Tizanidine HCl (Zanaflex) 4 mg PRN Q8HRS PRN PO MUSCLE SPASMS; Start 04/05/20 at 15:30 Active Scripts Active Feosol (Ferrous Sulfate) 325 Mg Tablet 325 Mg PO BIDWMEALS 60 Days Proair Hfa (Albuterol Sulfate) 8.5 Gm Hfa.aer.ad 2.5 Mg NEB PRN Q2HRS PRN 30 Days Pantoprazole Sodium (Pantoprazole Sodium) 40 Mg Tablet.dr 40 Mg PO DAILYAC 30 Days Reported Carvedilol 25 Mg Tablet 25 Mg PO BIDWMEALS Folic Acid 0.4 Mg Tablet 0.4 Mg PO DAILY Acetaminophen 500 Mg Tablet 1 Tab PO PRN Q6HRS PRN 15 Days Percocet 7.5-325 Mg Tablet (Oxycodone/Acetaminophen) 1 Each Tablet 1 Tab PO PRN QID PRN MDD 3 Tablet(s) 5 Days Vitals/I & O Vital Sign - Last 24 Hours 04/05/20 04/05/20 04/05/20 04/05/20 13:01 15:05 17:10 19:51 Temp 98.1 98.0 98.1 98.0 Pulse 71 70 70 71 Resp 20 20 B/P (MAP) 136/31 144/71 (95) 144/71 100/45 (63) Pulse Ox 96 98 O2 Delivery Room Air Room Air 04/05/20 04/05/20 04/06/20 04/06/20 20:05 23:39 03:12 07:48 Temp 98.0 98.1 98.3 98.0 98.1 98.3 Pulse 71 70 65 Resp 18 20 18 B/P (MAP) 92/36 (54) 99/40 (59) 110/53 (72) Pulse Ox 97 98 96 O2 Delivery Room Air Room Air Room Air Room Air 04/06/20 04/06/20 04/06/20 09:16 09:16 11:59 Temp 97.5 97.5 Pulse 65 64 Resp 18 B/P (MAP) 110/53 99/39 (59) Pulse Ox 97 O2 Delivery Room Air Room Air Intake and Output 04/05/20 04/05/20 04/06/20 15:00 23:00 07:00 Intake Total 400 ml 750 ml 100 ml Output Total 0 ml Balance 400 ml 750 ml 100 ml AJ FELTON MD Apr 06, 2020 12:45
[2020-04-06 15:46] VITALS: BP 117/53
[2020-04-06 19:40] VITALS: BP 132/59
[2020-04-06] MEDS: MORPHINE SULFATE 2 MG/ML VIAL. IV PRN (19:55)
[2020-04-06 23:17] VITALS: BP 120/80
[2020-04-07 03:40] VITALS: BP 116/71
[2020-04-07 04:28] LABS: RED BLOOD COUNT 2.03 x10^6/uL (3.50-5.40); RED CELL DISTRIBUTION WIDTH 20.6 % (11.5-14.5); WHITE BLOOD COUNT 2.2 x10^3/uL (4.0-11.0)
[2020-04-07 04:41] LABS: CALCIUM 8.4 mg/dL (8.5-10.1); CREATININE 6.7 mg/dL (0.6-1.0); GFR 7.5; POTASSIUM 4.1 mmol/L (3.5-5.1)
[2020-04-07 05:11] LABS: HEMOGLOBIN 6.7 g/dL (12.0-15.5)
[2020-04-07 05:12] LABS: HEMATOCRIT 19.6 % (36.0-47.0)
[2020-04-07] MEDS: PANTOPRAZOLE 40 MG TABLET.DR. PO SCH (07:30)
[2020-04-07 07:48] VITALS: BP 109/47
[2020-04-07] MEDS: FERROUS SULFATE 325 MG TABLET. PO SCH (08:00)
[2020-04-07] MEDS: CARVEDILOL 12.5 MG TABLET. PO SCH (08:00)
[2020-04-07] MEDS: MORPHINE SULFATE 2 MG/ML VIAL. IV PRN ×2 (08:20→12:36)
[2020-04-07] MEDS ORDERED: IV NORMAL SALINE 1000ML BAG 1,000 ML IV PRN ×2 (08:23)
[2020-04-07] MEDS ORDERED: DIALYSIS PATIENT. MC PRN (08:30)
[2020-04-07] MEDS ORDERED: diphenhydrAMINE 50 MG/ML VIAL IV PRN ×2 (08:30)
[2020-04-07] MEDS: FOLIC ACID 1 MG TABLET. PO SCH (09:00)
--- NOTE | 2020-04-07 11:06 | PDOC ---
Renal-Progress Notes Subjective Notes Notes FEELING BETTER History of Present Illness Hx of present illness STABLE Vitals Vitals Vital Signs Date Time Temp Pulse Resp B/P (MAP) Pulse Ox O2 Delivery O2 Flow Rate FiO2 04/07/20 08:20 12 Room Air 04/07/20 07:48 97.6 58 109/47 (67) 98 97.6 Weight Weight [ ] I.O. Intake and Output Intake and Output 04/07/20 07:00 Intake Total 1690 ml Balance 1690 ml Intake Oral 1690 ml # Voids 1 Labs Labs Laboratory Tests Test 04/06/20 11:43 04/06/20 17:02 04/06/20 20:46 04/07/20 03:16 Glucose (Fingerstick) 96 mg/dL (70-99) 114 mg/dL (70-99) 132 mg/dL (70-99) White Blood Count 2.2 x10^3/uL (4.0-11.0) Red Blood Count 2.03 x10^6/uL (3.50-5.40) Hemoglobin 6.7 g/dL (12.0-15.5) Hematocrit 19.6 % (36.0-47.0) Mean Corpuscular Volume 97 fL (79-100) Mean Corpuscular Hemoglobin 33 pg (25-35) Mean Corpuscular Hemoglobin Concent 34 g/dL (31-37) Red Cell Distribution Width 20.6 % (11.5-14.5) Platelet Count 121 x10^3/uL (140-400) Sodium Level 133 mmol/L (136-145) Potassium Level 4.1 mmol/L (3.5-5.1) Chloride Level 94 mmol/L (98-107) Carbon Dioxide Level 29 mmol/L (21-32) Anion Gap 10 (6-14) Blood Urea Nitrogen 50 mg/dL (7-20) Creatinine 6.7 mg/dL (0.6-1.0) Estimated GFR (Cockcroft-Gault) 7.5 Glucose Level 125 mg/dL (70-99) Calcium Level 8.4 mg/dL (8.5-10.1) Iron Level 19 ug/dL (50-170) Total Iron Binding Capacity 266 ug/dL (250-450) Iron Saturation 7 % (15-34) Test 6/11/20 07:20 Glucose (Fingerstick) 120 mg/dL (70-99) Review of Systems Constitutional: yes: weakness, alert, oriented Ears/Nose/Throat: Yes: no symptom reported Eyes: Yes: no symptom reported Pulmonary: Yes no symptom reported Cardiovascular: Yes no symptom reported Gastrointestional: Yes: nausea, melena Genitourinary: Yes: no symptom reported Musculoskeletal: Yes: no symptom reported Skin: Yes no symptom reported Psychiatric/Neurological: Yes: no symptom reported Endocrine: Yes: no symptom reported, flushing Physical Exam General Appearance: no apparent distress Skin: warm Respiratory: bilateral CTA Heart: S1S2 Abdomen: bowel sounds present Genitourinary: bladder flat Extremities: pulses present Neurology: alert Assessment Assessment IMP ESRD ANEMIA OF BLOOD LOSS-UGI ANEMIA OF ESRD NON COMPLIANCE DM II HTN DSYPNEA DUE TO ANEMIA PLAN HD TODAY UF TO DW PRBC TODAY PANCYTOPENIA W/U HEME EVAL GI EVAL YANP WILL FOLLOW LINNEA SHULTZ MD Apr 07, 2020 11:06
[2020-04-07 11:10] VITALS: BP 94/46
[2020-04-07 11:28] VITALS: BP 103/45
--- NOTE | 2020-04-07 11:34 | PDOC ---
[employer] PROGRESS NOTE Chief Complaint Chief Complaint Shortness of breath - likely related to mild uremia, fluid overload, symptomatic anemia. Acute anemia - Hb 4.7. continuing GI bleed. 2u PRBC ordered End-stage renal disease on dialysis - Nephrology consulted H/o pancreatitis, alcoholic - wine drinker Mild bilateral knee osteoarthritis with suspected trace right knee effusion. Chronic back pain Previous gastrointestinal bleed HX Clostridium difficile Cholelithiasis Obesity Trace tricuspid regurgitation with an estimated PAP of 52 mmHg. Arteriovenous shunt Moderate protein calorie malnutrition - Albumin 2.8 Back and shoulder pain s/p fall - PT evaluation +Hemoccult H/o recurrent UGI bleeding, refractory ulcer - H. pylori negative x 2, last endotherapy 01/12/20 (has had 7 EGDs since 2016), past GDA embolization (poor surgical candidate) GERD cirrhosis Hep C History of Present Illness History of Present Illness 04/07/2020 Patient seen and examined Chart reviewed She is currently on dialysis Discussed with RN Ms Fernandez is a 64 yo F w/ PMHx ESRD on HD TuThSa, PUD with previous GI bleeding, hypertension, hyperlipidemia, GERD, constipation, rheumatoid arthritis, diabetes, hyperparathyroidism, hep C, cirrhosis, and alcohol abuse p/w weakness, exertional shortness of breath with a fall on Saturday's, complains of left shoulder pain. Patient states she missed dialysis on Saturday due to the fall. Ambulates with a walker. Reports she did not hit her head or lose consciousness. Has no routine primary care physician. Patient states "I feel so bad I just cannot move." States she started having dark stools yesterday. Hb 4.7 in ED, Na 128, BNP > 160K, called for admission for further care 04/05/2020 Patient receiving 1 unit of packed red blood cell during dialysis. She denies chest pain she does feel weak tolerating dialysis well. Seems to be fluid overloaded and she will have at least 2 L taken off today. No complaints during my visit, GI erp implementation consultant recommendations greatly appreciated, at this time there is no evidence of active bleeding and she has had significant GI work-up in the past with no evidence of active bleeding. Nephrology consultation has also been noted and appreciated 04/06/2020 No acute events reported overnight, case discussed with nursing staff patient in no acute distress no complaints during my visit hemoglobin noted, patient will stay 1 more night labs in the morning hemodialysis in the morning if no further needs for transfusion she may be discharged after her treatment Vitals/I&O Vitals/I&O: Vital Signs Date Time Temp Pulse Resp B/P (MAP) Pulse Ox O2 Delivery O2 Flow Rate FiO2 04/07/20 11:10 97.6 66 16 94/46 97.6 04/07/20 08:20 Room Air 04/07/20 07:48 98 I & O 04/06/20 04/06/20 04/07/20 15:00 23:00 07:00 Intake Total 600 ml 500 ml 590 ml Balance 600 ml 500 ml 590 ml Physical Exam General: Alert Heart: Regular rate Lungs: Clear, Wheezing Abdomen: Normal bowel sounds, Soft, No tenderness Extremities: No cyanosis Skin: No rashes, No breakdown, No significant lesion Labs Labs: Laboratory Tests Test 04/06/20 11:43 04/06/20 17:02 04/06/20 20:46 04/07/20 03:16 Glucose (Fingerstick) 96 mg/dL (70-99) 114 mg/dL (70-99) 132 mg/dL (70-99) White Blood Count 2.2 x10^3/uL (4.0-11.0) Red Blood Count 2.03 x10^6/uL (3.50-5.40) Hemoglobin 6.7 g/dL (12.0-15.5) Hematocrit 19.6 % (36.0-47.0) Mean Corpuscular Volume 97 fL (79-100) Mean Corpuscular Hemoglobin 33 pg (25-35) Mean Corpuscular Hemoglobin Concent 34 g/dL (31-37) Red Cell Distribution Width 20.6 % (11.5-14.5) Platelet Count 121 x10^3/uL (140-400) Sodium Level 133 mmol/L (136-145) Potassium Level 4.1 mmol/L (3.5-5.1) Chloride Level 94 mmol/L (98-107) Carbon Dioxide Level 29 mmol/L (21-32) Anion Gap 10 (6-14) Blood Urea Nitrogen 50 mg/dL (7-20) Creatinine 6.7 mg/dL (0.6-1.0) Estimated GFR (Cockcroft-Gault) 7.5 Glucose Level 125 mg/dL (70-99) Calcium Level 8.4 mg/dL (8.5-10.1) Iron Level 19 ug/dL (50-170) Total Iron Binding Capacity 266 ug/dL (250-450) Iron Saturation 7 % (15-34) Test 04/07/20 07:20 Glucose (Fingerstick) 120 mg/dL (70-99) Assessment and Plan Assessmemt and Plan Problems Medical Problems: (1) Cardiomegaly Status: Acute (2) Elevated troponin Status: Acute (3) Macrocytic anemia Status: Acute (4) Occult blood positive stool Status: Acute Shortness of breath - likely related to mild uremia, fluid overload, symptomatic anemia. Acute anemia - Hb 4.7. continuing GI bleed. 2u PRBC ordered End-stage renal disease on dialysis - Nephrology consulted H/o pancreatitis, alcoholic - wine drinker Mild bilateral knee osteoarthritis with suspected trace right knee effusion. Chronic back pain Previous gastrointestinal bleed HX Clostridium difficile Cholelithiasis Obesity Trace tricuspid regurgitation with an estimated PAP of 52 mmHg. Arteriovenous shunt Moderate protein calorie malnutrition - Albumin 2.8 Back and shoulder pain s/p fall - PT evaluation +Hemoccult H/o recurrent UGI bleeding, refractory ulcer - H. pylori negative x 2, last endotherapy 01/12/20 (has had 7 EGDs since 2016), past GDA embolization (poor surgical candidate) GERD cirrhosis Hep C Might need bone marrow biopsy Long-term prognosis guarded Comment Review of Relevant I have reviewed the following items tamika (where applicable) has been applied. Justicifation of Admission Dx: Justifications for Admission: Justification of Admission Dx: Yes Chronic Renal Failure: Hemodynamic Instability VIKAS GAMEZ III DO Apr 07, 2020 11:34
--- NOTE | 2020-04-07 12:26 | PDOC ---
Subjective: Subjective: Seems confused about bone marrow biopsy plans - says was explained too quickly. No bleeding. Legs and shoulders hurt. Objective: Vital Signs: Vital Signs Date Time Temp Pulse Resp B/P (MAP) Pulse Ox O2 Delivery O2 Flow Rate FiO2 04/07/20 11:28 97.6 65 16 103/45 97.6 04/07/20 08:20 Room Air 04/07/20 07:48 98 Labs: Laboratory Tests Test 04/06/20 17:02 04/06/20 20:46 04/07/20 03:16 04/07/20 07:20 Glucose (Fingerstick) 114 mg/dL 132 mg/dL 120 mg/dL White Blood Count 2.2 x10^3/uL Red Blood Count 2.03 x10^6/uL Hemoglobin 6.7 g/dL Hematocrit 19.6 % Mean Corpuscular Volume 97 fL Mean Corpuscular Hemoglobin 33 pg Mean Corpuscular Hemoglobin Concent 34 g/dL Red Cell Distribution Width 20.6 % Platelet Count 121 x10^3/uL Sodium Level 133 mmol/L Potassium Level 4.1 mmol/L Chloride Level 94 mmol/L Carbon Dioxide Level 29 mmol/L Anion Gap 10 Blood Urea Nitrogen 50 mg/dL Creatinine 6.7 mg/dL Estimated GFR (Cockcroft-Gault) 7.5 Glucose Level 125 mg/dL Calcium Level 8.4 mg/dL Iron Level 19 ug/dL Total Iron Binding Capacity 266 ug/dL Iron Saturation 7 % PE: GEN: dialyzing and transfusing, tearful LUNGS: CTAB HEART: RRR ABD: non-tender NEURO/PSYCH: A & O 3 A/P: Chronic anemia/pancytopenia, recurrent UGI bleeding/refractory ulcer ESRD on HD, cirrhosis -- Not having a good day but GI issues stable. Continue iron and PPI. Justicifation of Admission Dx: Justifications for Admission: Justification of Admission Dx: Yes Chronic Renal Failure: Hemodynamic Instability IRIS SZYMANSKI Apr 07, 2020 12:26
[2020-04-07 12:30] VITALS: BP 108/58
[2020-04-07 14:11] LABS: KAPPA FREE 449.4 mg/L (3.3-19.4); KAPPA LAMBDA RATIO 1.33 (0.26-1.65); LAMBDA FREE 337.5 mg/L (5.7-26.3)
[2020-04-07 15:27] VITALS: BP 114/51
--- NOTE | 2020-04-08 08:50 | DS ---
DATE OF DISCHARGE: 04/07/2020 ADMISSION DIAGNOSES: Anemia and end-stage renal disease. DISCHARGE DIAGNOSES: Resolving anemia, chronic end-stage renal disease, diabetes, hypertension and hyperlipidemia. HOSPITAL COURSE: The patient is a pleasant elderly female who is on dialysis. She presented with anemia. There is some concern that she could have a bone marrow suppression disease of some type. We did transfuse her. We consulted Oncology. We were considering a bone marrow biopsy yesterday. I saw and examined her. She was on dialysis and doing well. Then, later in the afternoon, the nurse called me and explained that she wanted to leave AMA. VIKAS GAMEZ DO DR: CAMMIE/danial JOB#: [id number] / [id number]
[2020-04-08 14:11] LABS: COMMENT IMMUNOFIX SERUM Note: (.); IMMUNOGLOBULIN A 463 mg/dL (87-352); IMMUNOGLOBULIN G 1993 mg/dL (586-1602); IMMUNOGLOBULIN M 135 mg/dL (26-217)
[2020-04-12 17:10] LABS: METHYLMALONIC ACID 413 nmol/L (0-378)
== END 2020-04-07 15:45 | disposition left against medical advice (07) | DRG 808 ==
LOC: ER 08:24 → 6 SOUTH 11:22
PROVIDERS: ADMIT Internal Medicine; ATTEND Internal Medicine
PROC: 30233N1 Transfusion of Nonautologous Red Blood Cells into Peripheral Vein, Percutaneous Approach (ICD-10-PCS; 2020-04-04)
PROC: 5A1D70Z Performance of Urinary Filtration, Intermittent, Less than 6 Hours Per Day (ICD-10-PCS; principal; 2020-04-05)
PROC: 5A1D70Z Performance of Urinary Filtration, Intermittent, Less than 6 Hours Per Day (ICD-10-PCS; 2020-04-05)
DX: D61.818 Other pancytopenia (principal); N18.6 End stage renal disease; K25.4 Chronic or unspecified gastric ulcer with hemorrhage; E44.0 Moderate protein-calorie malnutrition; I13.11 Hypertensive heart and chronic kidney disease without heart failure, with stage 5 chronic kidney disease, or end stage renal disease; J98.11 Atelectasis; R18.8 Other ascites; D62 Acute posthemorrhagic anemia; Z20.828 Contact with and (suspected) exposure to other viral communicable diseases; B19.20 Unspecified viral hepatitis C without hepatic coma; E11.22 Type 2 diabetes mellitus with diabetic chronic kidney disease; E78.5 Hyperlipidemia, unspecified; E21.3 Hyperparathyroidism, unspecified; K74.60 Unspecified cirrhosis of liver; E66.9 Obesity, unspecified; R79.89 Other specified abnormal findings of blood chemistry; E87.70 Fluid overload, unspecified; G89.29 Other chronic pain; M54.9 Dorsalgia, unspecified; F10.10 Alcohol abuse, uncomplicated; K59.00 Constipation, unspecified; D63.1 Anemia in chronic kidney disease; K21.0 Gastro-esophageal reflux disease with esophagitis; K31.9 Disease of stomach and duodenum, unspecified; M06.9 Rheumatoid arthritis, unspecified; M25.512 Pain in left shoulder; I07.1 Rheumatic tricuspid insufficiency; M17.0 Bilateral primary osteoarthritis of knee; M19.011 Primary osteoarthritis, right shoulder; N20.0 Calculus of kidney; Z99.2 Dependence on renal dialysis; Z87.01 Personal history of pneumonia (recurrent); Z91.19 Patient's noncompliance with other medical treatment and regimen; Z90.711 Acquired absence of uterus with remaining cervical stump; Z87.11 Personal history of peptic ulcer disease; Z87.442 Personal history of urinary calculi; Z83.3 Family history of diabetes mellitus; Z90.49 Acquired absence of other specified parts of digestive tract
CPT/HCPCS: 36415; 71045; 73030; 80048; 80053; 82274; 82550; 82668; 82784; 82962; 83010; 83520; 83540; 83550; 83615; 83880; 83921; 84484; 85025; 85027; 85045; 85610; 86334; 86850; 86880; 86900; 86901; 86920; 93005; 96374; J0882; J2270; P9016; 99285-25; G0378; Q0163

== ENCOUNTER 2020-04-08 22:28 | Inpatient (IN) | payer MEDICARE, MEDICAID ==
[~2020-04-08] VITALS: Ht 157.5 cm; Wt 87.6 kg
[2020-04-08] MEDS ORDERED: ONDANSETRON PF 4 MG/2 ML VIAL. IVP ONE ×2 (23:00→23:30)
[2020-04-08] MEDS ORDERED: IV NORMAL SALINE 1000ML BAG 1,000 ML IV SCH (23:30)
[2020-04-08 23:31] LABS: BASO % 1 % (0-3); EOS # 0.1 x10^3/uL (0.0-0.7); EOS % 2 % (0-3); HEMATOCRIT 26.1 % (36.0-47.0); HEMOGLOBIN 8.8 g/dL (12.0-15.5); LYMPH # 0.6 x10^3/uL (1.0-4.8); LYMPH % 23 % (24-48); MEAN CORPUSCULAR HEMOGLOBIN 33 pg (25-35); MEAN CORPUSCULAR HGB CONC 34 g/dL (31-37); MEAN CORPUSCULAR VOLUME 97 fL (79-100); MONO # 0.4 x10^3/uL (0.0-1.1); MONO % 14 % (0-9); NEUT # 1.5 x10^3/uL (1.8-7.7); NEUT % 59 % (31-73); PLATELET COUNT 117 x10^3/uL (140-400); RED BLOOD COUNT 2.69 x10^6/uL (3.50-5.40); WHITE BLOOD COUNT 2.5 x10^3/uL (4.0-11.0)
[2020-04-08] MEDS: MORPHINE SULFATE 4 MG/ML VIAL. IV/SQ PRN (23:32)
--- NOTE | 2020-04-08 23:49 | PHYS DOC ---
Past Medical History Past Medical History: Anemia, Diabetes-Type II, GERD, GI Bleed, Hypertension, Kidney Stone, Pancreatitis, Pneumonia, Renal Failure, Other Additional Past Medical Histor: Ulcers,ESRD,C-DIFF,CIRRHOSIS Past Surgical History: Cholecystectomy, Other Additional Past Surgical Histo: dialysis shunt ulcers Smoking Status: Never Smoker Alcohol Use: Rarely Additional Information: PT TOOK 2 SHOTS OF WHISKEY Drug Use: None General Adult EDM: Chief Complaint: NAUSEA/VOMITING/DIARRHA HPI: HPI: Patient is a 65 year old female who presents with complaint of mid abdominal pain that started yesterday. Patient states that she hurts pretty much everywhere but the pain is worse in her abdomen. She does indicate that it radiates into her back. She states that she has been very nauseated but has not been able to vomit. She denies any diarrhea. She also denies any fever. Patient states that she has no chest pain or shortness of breath. [] Review of Systems: Review of Systems: Constitutional: Denies fever or chills. [] Respiratory: Denies cough or shortness of breath. [] Cardiovascular: Denies chest pain or edema. [] GI: Complains of mid abdominal pain with nausea and vomiting. Denies diarrhea. [] Musculoskeletal: Complains of back pain. [] Integument: Denies rash. [] Neurologic: Denies headache, focal weakness or sensory changes. [] A full 10 point review of systems has been reviewed and is otherwise negative. Heart Score: Risk Factors: Risk Factors: DM, Current or recent (<one month) smoker, HTN, HLP, family history of CAD, obesity. Risk Scores: Score 0 - 3: 2.5% MACE over next 6 weeks - Discharge Home Score 4 - 6: 20.3% MACE over next 6 weeks - Admit for Clinical Observation Score 7 - 10: 72.7% MACE over next 6 weeks - Early Invasive Strategies Current Medications: Current Medications Medications (Trade) Dose Ordered Sig/Kimberly Start Time Stop Time Status Last Admin Dose Admin Morphine Sulfate (Morphine Sulfate) 4 mg PRN Q15MIN PRN 04/08/20 23:30 04/09/20 23:29 04/08/20 23:32 4 MG Ondansetron HCl (Zofran) 4 mg 1X ONCE 04/08/20 23:30 04/08/20 23:31 DC Sodium Chloride 1,000 ml @ 1,000 mls/hr Q1H 04/08/20 23:30 04/09/20 00:29 04/08/20 23:32 1,000 MLS/HR Allergies: Allergies: Allergies Coded Allergies Type Severity Reaction Last Updated Verified No Known Drug Allergies 12/30/19 No Physical Exam: PE: Constitutional: Well developed, well nourished, no acute distress, non-toxic appearance. [] HENT: Normocephalic, atraumatic, bilateral external ears normal, oropharynx moist, no oral exudates, nose normal. [] Eyes: PERRLA, EOMI, conjunctiva normal, no discharge. [] Neck: Normal range of motion, no tenderness, supple, no stridor. [] Cardiovascular: Regular rate and rhythm [] Lungs & Thorax: Bilateral breath sounds clear to auscultation [] Abdomen: Bowel sounds normal, soft, with diffuse tenderness. [] Skin: Warm, dry, no erythema, no rash. [] Extremities: No tenderness, no cyanosis, no clubbing, ROM intact. [] Neurologic: Alert and oriented X 3, no focal deficits noted. [] Current Patient Data: Vital Signs: Vital Signs Date Time Temp Pulse Resp B/P (MAP) Pulse Ox O2 Delivery O2 Flow Rate FiO2 04/08/20 23:32 16 98 Room Air 04/08/20 22:28 98.5 190/81 (117) 98.5 EKG: EKG: [] Radiology/Procedures: Radiology/Procedures: [] Impression: PROCEDURE: CT ABDOMEN PELVIS WO CONTRAST INDICATION: Reason: abd pain / Spl. Instructions: / History: COMPARISON: December 2019 TECHNIQUE: Axial CT images obtained through the abdomen and pelvis without contrast. Limited assessment of solid organ structures and vasculature secondary to lack of intravenous contrast.. One or more of the following individualized dose reduction techniques were utilized for this examination: 1. Automated exposure control; 2. Adjustment of the mA and/or kV according to patient size; 3. Use of iterative reconstruction technique. FINDINGS: Calcifications of the mitral valve. The heart is enlarged. Severe calcific atherosclerosis. Small fat-containing left inguinal hernia. Free fluid is identified within the abdomen and pelvis. No intrahepatic bile duct dilation. Liver prominent in size. Postcholecystectomy with somewhat nodular contour. Poor evaluation for mass given lack of contrast. Haziness of the fat adjacent to the pancreas. Pancreatic parenchyma is poorly evaluated on noncontrast imaging. Metallic density structures in the upper abdomen. Could be from surgical clips and embolization coils at the patient has a history of embolization. Calcified granulomas of the spleen. No left-sided hydronephrosis. Haziness to the fat adjacent to the decompressed urinary bladder. No right-sided hydronephrosis. The suspected appendix is partially seen and doesn't appear grossly dilated proximally. There is a suspected umbilical hernia with some edema within. Edema in the subcutaneous soft tissues of the anterior abdominal wall. Postoperative changes to the right proximal femur with intramedullary fermin. There are some unhealed pelvis fractures. Degenerative changes in the spine. Multilevel central canal and neural foraminal stenosis. Grade 1 anterolisthesis of L4 on 5. Mild wedging of L1, T12, T11, T9 vertebral bodies. IMPRESSION: * Free fluid is seen within the abdomen and pelvis and appears increased from prior. * There is edema in the fat adjacent to the pancreas. There is edema elsewhere as well therefore this could be systemic in nature but would correlate with symptoms to ensure this is not secondary to pancreatitis. * Severe degenerative changes of the spine with multilevel central canal and neural foraminal stenosis. * Old pelvic fractures are again seen. * There is some edema adjacent to the urinary bladder. Cystitis is not excluded. Electronically signed by: Marco Gallardo MD (04/09/2020 2:25 AM) Course & Med Decision Making: Course & Med Decision Making Pertinent Labs and Imaging studies reviewed. (See chart for details) [] Rishi Disclaimer: Rishi Disclaimer: This electronic medical record was generated, in whole or in part, using a voice recognition dictation system. Departure Departure Impression: Primary Impression: Coffee ground emesis Additional Impression: End stage renal disease Disposition: ADMITTED INPATIENT Admitting Physician: HIMFelipe Condition: IMPROVED Referrals: NO PCP (PCP) Justicifation of Admission Dx: Justifications for Admission: Justification of Admission Dx: Comment: (Coffee ground emesis) Chronic Renal Failure: Hemodynamic Instability KAREN TRACY Jr. DO Apr 08, 2020 23:49
[2020-04-08 23:59] LABS: CALCIUM 8.6 mg/dL (8.5-10.1); CREATININE 5.1 mg/dL (0.6-1.0); GFR 10.2; POTASSIUM 4.1 mmol/L (3.5-5.1)
[2020-04-09 00:04] LABS: ALBUMIN 3.2 g/dL (3.4-5.0); ALBUMIN/GLOBULIN RATIO 0.6 (1.0-1.7); TOTAL BILIRUBIN 0.5 mg/dL (0.2-1.0); TOTAL PROTEIN 8.2 g/dL (6.4-8.2)
--- NOTE | 2020-04-09 01:16 | RAD ---
INDICATION: Reason: abd pain / Spl. Instructions: / History: COMPARISON: April 04, 2020 FINDINGS: Single view of chest obtained. Enlarged cardiomediastinal Silhouette with poststernotomy changes. Degenerative changes left shoulder. Left lung base is obscured by overlying cardiac silhouette. No definite consolidation elsewhere in the lungs. IMPRESSION: * Enlarged cardiac mediastinal silhouette which can be seen with cardiomegaly and/or pericardial effusion. * No definite focal airspace consolidation Electronically signed by: Marco Gallardo MD (04/09/2020 1:14 AM) [id number]
[2020-04-09] MEDS: MORPHINE SULFATE 4 MG/ML VIAL. IV/SQ PRN (01:52)
[2020-04-09] MEDS ORDERED: PANTOPRAZOLE IV PUSH 40 MG VIAL. IVP ONE (02:15)
--- NOTE | 2020-04-09 02:28 | RAD ---
INDICATION: Reason: abd pain / Spl. Instructions: / History: COMPARISON: December 2019 TECHNIQUE: Axial CT images obtained through the abdomen and pelvis without contrast. Limited assessment of solid organ structures and vasculature secondary to lack of intravenous contrast.. One or more of the following individualized dose reduction techniques were utilized for this examination: 1. Automated exposure control; 2. Adjustment of the mA and/or kV according to patient size; 3. Use of iterative reconstruction technique. FINDINGS: Calcifications of the mitral valve. The heart is enlarged. Severe calcific atherosclerosis. Small fat-containing left inguinal hernia. Free fluid is identified within the abdomen and pelvis. No intrahepatic bile duct dilation. Liver prominent in size. Postcholecystectomy with somewhat nodular contour. Poor evaluation for mass given lack of contrast. Haziness of the fat adjacent to the pancreas. Pancreatic parenchyma is poorly evaluated on noncontrast imaging. Metallic density structures in the upper abdomen. Could be from surgical clips and embolization coils at the patient has a history of embolization. Calcified granulomas of the spleen. No left-sided hydronephrosis. Haziness to the fat adjacent to the decompressed urinary bladder. No right-sided hydronephrosis. The suspected appendix is partially seen and doesn't appear grossly dilated proximally. There is a suspected umbilical hernia with some edema within. Edema in the subcutaneous soft tissues of the anterior abdominal wall. Postoperative changes to the right proximal femur with intramedullary fermin. There are some unhealed pelvis fractures. Degenerative changes in the spine. Multilevel central canal and neural foraminal stenosis. Grade 1 anterolisthesis of L4 on 5. Mild wedging of L1, T12, T11, T9 vertebral bodies. IMPRESSION: * Free fluid is seen within the abdomen and pelvis and appears increased from prior. * There is edema in the fat adjacent to the pancreas. There is edema elsewhere as well therefore this could be systemic in nature but would correlate with symptoms to ensure this is not secondary to pancreatitis. * Severe degenerative changes of the spine with multilevel central canal and neural foraminal stenosis. * Old pelvic fractures are again seen. * There is some edema adjacent to the urinary bladder. Cystitis is not excluded. Electronically signed by: Marco Gallardo MD (04/09/2020 2:25 AM) [id number]
[2020-04-09] MEDS ORDERED: ONDANSETRON PF 4 MG/2 ML VIAL. IV PRN (04:30)
[2020-04-09 07:19] VITALS: BP 126/93
[2020-04-09] MEDS ORDERED: DIALYSIS PATIENT. MC PRN ×2 (08:00)
[2020-04-09] MEDS ORDERED: IV NORMAL SALINE 1000ML BAG 1,000 ML IV PRN ×2 (08:00)
[2020-04-09] MEDS ORDERED: ALBUMIN HUMAN 25% 200 ML IV PRN (08:00)
[2020-04-09] MEDS: MORPHINE SULFATE 2 MG/ML VIAL. IV PRN ×3 (08:30→22:19)
--- NOTE | 2020-04-09 08:40 | PDOC2 ---
CONSULT Date of Consult Date of Consult DATE: 04/09/20 TIME: 08:36 History of Present Illness Reason for Visit: This is a 65-year-old patient well-known to the GI service with a history of end-stage renal disease on dialysis and refractory recurrent gastric antral ulcer with bleeding. She is underwent a number of endoscopies the last of which was in December. She had embolization therapy back in June of last year which was currently not clinically effective and has required numerous transfusions. She used to be on NSAIDs but stopped them months ago. She presently presents with recurrent weakness, aching pain all over, and some epigastric pain. She also describes chronic nausea and in the emergency room apparently had a small amount of coffee-ground emesis. Her hemoglobins usually run around 8 g and are presently stable. She denies any recurrent hematemesis or melena. She states she is compliant with her medication regimen. Past Medical History Cardiovascular: HTN, Hyperlipidemia Pulmonary: No pertinent hx GI: Constipation, GERD, GI bleed Heme/Onc: Anemia NOS Hepatobiliary: No pertinent hx, Hep A/B/C Psych: Addictions Rheumatologic: Rheumatoid arthritis Infectious disease: No pertinent hx Renal/: Chronic renal failure, Hematuria Endocrine: Diabetes, Hyperparathyroidism Past Surgical History Past Surgical History: Cholecystectomy, Tonsillectomy, Hysterectomy, Other Family History Family History: Alcohol Abuse, High Cholestrol, Hypertension, Family History Unknown Social History ALCOHOL: other Drugs: None Current Problem List Problem List Problems Medical Problems: (1) Coffee ground emesis Status: Acute (2) End stage renal disease Status: Acute Current Medications Current Medications Current Medications Ondansetron HCl (Zofran) 4 mg 1X ONCE IVP Last administered on 04/08/20at 23:08; Start 04/08/20 at 23:00; Stop 04/08/20 at 23:22; Status DC Morphine Sulfate (Morphine Sulfate) 4 mg PRN Q15MIN PRN IV/SQ PAIN GREATER THAN 3/10 Last administered on 04/09/20at 01:52; Start 04/08/20 at 23:30; Stop 04/09/20 at 23:29 Sodium Chloride 1,000 ml @ 1,000 mls/hr Q1H IV Last administered on 04/08/20at 23:32; Start 04/08/20 at 23:30; Stop 04/09/20 at 00:29; Status DC Ondansetron HCl (Zofran) 4 mg 1X ONCE IVP Last administered on 04/08/20at 01:50; Start 04/08/20 at 23:30; Stop 04/08/20 at 23:31; Status DC Pantoprazole Sodium (PROTONIX VIAL for IV PUSH) 40 mg 1X ONCE IVP Last administered on 04/09/20at 02:15; Start 04/09/20 at 02:15; Stop 04/09/20 at 02:16; Status DC Ondansetron HCl (Zofran) 4 mg PRN Q8HRS PRN IV NAUSEA/VOMITING; Start 04/09/20 at 04:30; Stop 04/10/20 at 04:29 Morphine Sulfate (Morphine Sulfate) 2 mg PRN Q2HR PRN IV PAIN Last administered on 04/09/20at 08:30; Start 04/09/20 at 04:30; Stop 04/10/20 at 04:29 Active Scripts Active Feosol (Ferrous Sulfate) 325 Mg Tablet 325 Mg PO BIDWMEALS 60 Days Proair Hfa (Albuterol Sulfate) 8.5 Gm Hfa.aer.ad 2.5 Mg NEB PRN Q2HRS PRN 30 Days Pantoprazole Sodium (Pantoprazole Sodium) 40 Mg Tablet.dr 40 Mg PO DAILYAC 30 Days Reported Carvedilol 25 Mg Tablet 25 Mg PO BIDWMEALS Folic Acid 0.4 Mg Tablet 0.4 Mg PO DAILY Acetaminophen 500 Mg Tablet 1 Tab PO PRN Q6HRS PRN 15 Days Percocet 7.5-325 Mg Tablet (Oxycodone/Acetaminophen) 1 Each Tablet 1 Tab PO PRN QID PRN MDD 3 Tablet(s) 5 Days Allergies Allergies: Coded Allergies: No Known Drug Allergies (Unverified , 12/30/19) Physical Exam General: Alert, Oriented X3 HEENT: PERRLA Lungs: Clear to auscultation Heart: Regular rate, Normal S1, Normal S2 Abdomen: Normal bowel sounds, Soft, No hepatosplenomegaly, Other (Mild epigastric tenderness) Extremities: No clubbing Neuro: Normal gait Psych/Mental Status: Mental status NL Vitals VITALS Vital Signs Date Time Temp Pulse Resp B/P (MAP) Pulse Ox O2 Delivery O2 Flow Rate FiO2 04/09/20 07:19 98.0 74 20 126/93 (104) 96 Room Air 98.0 Labs Labs Laboratory Tests Test 04/08/20 23:00 White Blood Count 2.5 x10^3/uL (4.0-11.0) Red Blood Count 2.69 x10^6/uL (3.50-5.40) Hemoglobin 8.8 g/dL (12.0-15.5) Hematocrit 26.1 % (36.0-47.0) Mean Corpuscular Volume 97 fL (79-100) Mean Corpuscular Hemoglobin 33 pg (25-35) Mean Corpuscular Hemoglobin Concent 34 g/dL (31-37) Red Cell Distribution Width 20.0 % (11.5-14.5) Platelet Count 117 x10^3/uL (140-400) Neutrophils (%) (Auto) 59 % (31-73) Lymphocytes (%) (Auto) 23 % (24-48) Monocytes (%) (Auto) 14 % (0-9) Eosinophils (%) (Auto) 2 % (0-3) Basophils (%) (Auto) 1 % (0-3) Neutrophils # (Auto) 1.5 x10^3/uL (1.8-7.7) Lymphocytes # (Auto) 0.6 x10^3/uL (1.0-4.8) Monocytes # (Auto) 0.4 x10^3/uL (0.0-1.1) Eosinophils # (Auto) 0.1 x10^3/uL (0.0-0.7) Basophils # (Auto) 0.0 x10^3/uL (0.0-0.2) Sodium Level 132 mmol/L (136-145) Potassium Level 4.1 mmol/L (3.5-5.1) Chloride Level 94 mmol/L (98-107) Carbon Dioxide Level 28 mmol/L (21-32) Anion Gap 10 (6-14) Blood Urea Nitrogen 34 mg/dL (7-20) Creatinine 5.1 mg/dL (0.6-1.0) Estimated GFR (Cockcroft-Gault) 10.2 BUN/Creatinine Ratio 7 (6-20) Glucose Level 118 mg/dL (70-99) Calcium Level 8.6 mg/dL (8.5-10.1) Total Bilirubin 0.5 mg/dL (0.2-1.0) Aspartate Amino Transf (AST/SGOT) 41 U/L (15-37) Alanine Aminotransferase (ALT/SGPT) 17 U/L (14-59) Alkaline Phosphatase 124 U/L (46-116) Total Protein 8.2 g/dL (6.4-8.2) Albumin 3.2 g/dL (3.4-5.0) Albumin/Globulin Ratio 0.6 (1.0-1.7) Lipase 194 U/L (73-393) Laboratory Tests Test 04/08/20 23:00 White Blood Count 2.5 x10^3/uL (4.0-11.0) Red Blood Count 2.69 x10^6/uL (3.50-5.40) Hemoglobin 8.8 g/dL (12.0-15.5) Hematocrit 26.1 % (36.0-47.0) Mean Corpuscular Volume 97 fL (79-100) Mean Corpuscular Hemoglobin 33 pg (25-35) Mean Corpuscular Hemoglobin Concent 34 g/dL (31-37) Red Cell Distribution Width 20.0 % (11.5-14.5) Platelet Count 117 x10^3/uL (140-400) Neutrophils (%) (Auto) 59 % (31-73) Lymphocytes (%) (Auto) 23 % (24-48) Monocytes (%) (Auto) 14 % (0-9) Eosinophils (%) (Auto) 2 % (0-3) Basophils (%) (Auto) 1 % (0-3) Neutrophils # (Auto) 1.5 x10^3/uL (1.8-7.7) Lymphocytes # (Auto) 0.6 x10^3/uL (1.0-4.8) Monocytes # (Auto) 0.4 x10^3/uL (0.0-1.1) Eosinophils # (Auto) 0.1 x10^3/uL (0.0-0.7) Basophils # (Auto) 0.0 x10^3/uL (0.0-0.2) Sodium Level 132 mmol/L (136-145) Potassium Level 4.1 mmol/L (3.5-5.1) Chloride Level 94 mmol/L (98-107) Carbon Dioxide Level 28 mmol/L (21-32) Anion Gap 10 (6-14) Blood Urea Nitrogen 34 mg/dL (7-20) Creatinine 5.1 mg/dL (0.6-1.0) Estimated GFR (Cockcroft-Gault) 10.2 BUN/Creatinine Ratio 7 (6-20) Glucose Level 118 mg/dL (70-99) Calcium Level 8.6 mg/dL (8.5-10.1) Total Bilirubin 0.5 mg/dL (0.2-1.0) Aspartate Amino Transf (AST/SGOT) 41 U/L (15-37) Alanine Aminotransferase (ALT/SGPT) 17 U/L (14-59) Alkaline Phosphatase 124 U/L (46-116) Total Protein 8.2 g/dL (6.4-8.2) Albumin 3.2 g/dL (3.4-5.0) Albumin/Globulin Ratio 0.6 (1.0-1.7) Lipase 194 U/L (73-393) Assessment/Plan Assessment/Plan Epigastric pain with nausea. This is a chronic problem for her but now is associated with some small volume of coffee-ground emesis. She is known to have a recurrent unhealing gastric ulcer but has been stable over the past few months. In the past she has had significant amount of upper GI bleeding requiring numerous endoscopies and interventional radiology with embolization to try to control the bleeding. Her last bleeding episode was in December. She now presents with some low volume coffee-ground emesis and a stable hemoglobin. Her main complaint is epigastric pain generalized pain and nausea. Likely the epigastric discomfort is from her recurrent and persistent ulcer disease. Plan: Monitor her hemoglobins. We will not proceed with endoscopy now unless her bleeding becomes more urgent. This is in part related to the complexity of her prior history and the difficulty in treating this difficult to find ulcer on previous endoscopy. PPI therapy and will add Carafate Liquid diet as tolerated CARLOS MCCALL MD Apr 09, 2020 08:40
[2020-04-09] MEDS: PANTOPRAZOLE IV PUSH 40 MG VIAL. IVP SCH ×2 (10:01→20:45)
[2020-04-09] MEDS: SUCRALFATE 1 GM TABLET. PO SCH ×2 (10:02→20:45)
--- NOTE | 2020-04-09 13:14 | HP ---
ADMIT DATE: 04/09/2020 CHIEF COMPLAINT: Nausea, vomiting, diarrhea, abdominal pain. HISTORY OF PRESENT ILLNESS: The patient is a pleasant 65-year-old female well known to my service. She just left AMA a couple of days ago. She is on dialysis and now she has developed pancytopenia. She was supposed to be staying here to get a bone marrow biopsy, but she left AMA. I think she was scared. Basically now she is failing to thrive. She has got abdominal pain, nausea, vomiting. She is weak, the pain radiates to her back. She rates it at a 9/10. I discussed the case with ER physician. We are going to admit the patient and get her dialyzed and we are going to consult GI and Hematology/Oncology. PAST MEDICAL HISTORY: Pancytopenia (she is supposed to have a bone marrow biopsy, but has been quite scared to get that done), end-stage renal disease, recurrent GI bleeds and she has had numerous endoscopies. She had an embolization done recently in June of last year, hypertension, hyperlipidemia, constipation, GERD, anemia, hep A, B and C, rheumatoid arthritis, hematuria, diabetes, hyperparathyroidism, previous addictions according to the chart. ALLERGIES: None. FAMILY HISTORY: Diabetes. SOCIAL HISTORY: She does not currently drink, smoke or take drugs. She is retired. MEDICATIONS: Reviewed, please refer to the MRAD. REVIEW OF SYSTEMS: GENERAL: She complains of weakness. SKIN: No bruising, hair changes or rashes. EYES: No blurred, double or loss of vision. NOSE AND THROAT: No history of nosebleeds, hoarseness or sore throat. HEART: No history of palpitations, chest pain or shortness of breath on exertion. LUNGS: Denies cough, hemoptysis, wheezing or shortness of breath. GASTROINTESTINAL: She complains of abdominal pain and nausea and vomiting, diarrhea. GENITOURINARY: No history of frequency, urgency, hesitancy or nocturia. NEUROLOGIC: Denies history of numbness, tingling, tremor or weakness. PSYCHIATRIC: No history of panic, anxiety or depression. ENDOCRINE: No history of heat or cold intolerance, polyuria or polydipsia. EXTREMITIES: Denies muscle weakness, joint pain, pain on walking or stiffness. PHYSICAL EXAMINATION: VITALS: Within normal limits and are stable. GENERAL: No apparent distress. Alert and oriented. HEENT: Normal cephalic atraumatic, external auditory canals are patent EYES: Extraocular muscles are intact, pupils are equally round and reactive to light and accommodation MUSCULOSKELETAL: Well developed, well nourished, good range of motion ENDOCRINE: No thyromegaly was palpated LYMPHATICS: No cervical chain or axillary nodes were noted HEMATOPOIETIC: No bruising NECK: Supple, no JVD, no thyromegaly was noted. LUNGS: Clear to auscultation in all lung chaudhry without rhonchi or wheezing. HEART: RRR, S1, S2 present. Peripheral pulses intact, no obvious murmurs were noted. ABDOMEN: Soft, nontender. Positive bowel sounds no organomegaly, normal bowel sounds. EXTREMITIES: Without any cyanosis, clubbing, or edema. Pedal pulses intact, Homans sign is negative. NEUROLOGIC: Normal speech, normal tone. A & O x3, moves all extremities, no obvious focal deficits. PSYCHIATRIC: Normal affect, normal mood. Stable. SKIN: No ulcerations or rashes, good skin turgor, no jaundice. VASCULAR: Good capillary refill, neurovascular bundle appears to be intact. LABORATORY DATA: White count is low at 2.5. Hemoglobin is low at 8.8, platelets are low at 117. Sodium is low at 132, BUN and creatinine are high at 34 and 5.1 respectively. Glucose 118. ASSESSMENT AND PLAN: Acute on chronic anemia with a prior history of gastrointestinal bleeds, but now she has pancytopenia. Suspect she could have some bone marrow pathology. The patient is being admitted. We will consult Hematology/Oncology to consider a bone marrow biopsy. Consult Nephrology for dialysis management. Consult GI. Proton pump inhibitors, home meds, DVT prophylaxis. Full code. Trend hemoglobin. PROGNOSIS: Guarded. BRANDENL Kassie GAMEZ DO DR: CAMMIE/danial JOB#: [id number] / [id number]
[2020-04-09 15:36] VITALS: BP 115/44
--- NOTE | 2020-04-09 18:42 | PDOC2 ---
CONSULT Date of Consult Date of Consult DATE: 04/09/20 TIME: 17:36 Reason for Consult Reason for Consult: Pancytopenia Referring Physician Referring Physician: Douglas Jacobo MD Identification/Chief Complaint Chief Complaint Anemia due to GIB Source Source: Chart review, Patient History of Present Illness Reason for Visit: GIB Past Medical History Cardiovascular: HTN, Hyperlipidemia Pulmonary: No pertinent hx GI: Constipation, GERD, GI bleed, Peptic Ulcer disease, Other Heme/Onc: Anemia NOS Hepatobiliary: Cirrhosis, Hep A/B/C, Other (ascites) Psych: Addictions Rheumatologic: Rheumatoid arthritis Infectious disease: No pertinent hx Renal/: Chronic renal failure, Hematuria Endocrine: Diabetes, Hyperparathyroidism Past Surgical History Past Surgical History: Cholecystectomy, Tonsillectomy, Hysterectomy, Other Family History Family History: Alcohol Abuse, Cancer (mother - pancreatic cancer), High Cholestrol, Hypertension, Family History Unknown Social History ALCOHOL: heavy Drugs: None Domestic Violence: Neg Current Problem List Problem List Problems Medical Problems: (1) Coffee ground emesis Status: Acute (2) End stage renal disease Status: Acute Current Medications Current Medications Current Medications Ondansetron HCl (Zofran) 4 mg 1X ONCE IVP Last administered on 04/08/20at 23:08; Start 04/08/20 at 23:00; Stop 04/08/20 at 23:22; Status DC Morphine Sulfate (Morphine Sulfate) 4 mg PRN Q15MIN PRN IV/SQ PAIN GREATER THAN 3/10 Last administered on 04/09/20at 01:52; Start 04/08/20 at 23:30; Stop 04/09/20 at 11:28; Status DC Sodium Chloride 1,000 ml @ 1,000 mls/hr Q1H IV Last administered on 04/08/20at 23:32; Start 04/08/20 at 23:30; Stop 04/09/20 at 00:29; Status DC Ondansetron HCl (Zofran) 4 mg 1X ONCE IVP Last administered on 04/08/20at 01:50; Start 04/08/20 at 23:30; Stop 04/08/20 at 23:31; Status DC Pantoprazole Sodium (PROTONIX VIAL for IV PUSH) 40 mg 1X ONCE IVP Last administered on 04/09/20at 02:15; Start 04/09/20 at 02:15; Stop 04/09/20 at 02:16; Status DC Ondansetron HCl (Zofran) 4 mg PRN Q8HRS PRN IV NAUSEA/VOMITING; Start 04/09/20 at 04:30; Stop 04/10/20 at 04:29 Morphine Sulfate (Morphine Sulfate) 2 mg PRN Q2HR PRN IV PAIN Last administered on 04/09/20at 08:30; Start 04/09/20 at 04:30; Stop 04/10/20 at 04:29 Pantoprazole Sodium (PROTONIX VIAL for IV PUSH) 40 mg BID IVP Last administered on 04/09/20at 10:01; Start 04/09/20 at 09:00 Sucralfate (Carafate) 1 gm BID PO Last administered on 04/09/20at 10:02; Start 04/09/20 at 09:00 Sodium Chloride 1,000 ml @ 1,000 mls/hr Q1H PRN IV hypotension; Start 04/09/20 at 08:00; Stop 04/09/20 at 13:59; Status DC Albumin Human 200 ml @ 200 mls/hr 1X PRN PRN IV Hypotension; Start 04/09/20 at 08:00; Stop 04/09/20 at 13:59; Status DC Sodium Chloride 1,000 ml @ 400 mls/hr Q2H30M PRN IV PATENCY; Start 04/09/20 at 08:00; Stop 04/09/20 at 19:59 Info (PHARMACY MONITORING -- do not chart) 1 each PRN DAILY PRN MC SEE COM MENTS; Start 04/09/20 at 08:00 Info (PHARMACY MONITORING -- do not chart) 1 each PRN DAILY PRN MC SEE COMMENTS; Start 04/09/20 at 08:00 Active Scripts Active Proair Hfa (Albuterol Sulfate) 8.5 Gm Hfa.aer.ad 2.5 Mg NEB PRN Q2HRS PRN 30 Days Pantoprazole Sodium (Pantoprazole Sodium) 40 Mg Tablet.dr 40 Mg PO DAILYAC 30 Days Reported Carvedilol 25 Mg Tablet 25 Mg PO BIDWMEALS Folic Acid 0.4 Mg Tablet 0.4 Mg PO DAILY Acetaminophen 500 Mg Tablet 1 Tab PO PRN Q6HRS PRN 15 Days Allergies Allergies: Coded Allergies: No Known Drug Allergies (Unverified , 3/4/20) Vitals VITALS Vital Signs Date Time Temp Pulse Resp B/P (MAP) Pulse Ox O2 Delivery O2 Flow Rate FiO2 04/09/20 15:36 98.0 77 18 115/44 (67) 97 Room Air 98.0 Labs Labs Laboratory Tests Test 04/08/20 23:00 White Blood Count 2.5 x10^3/uL (4.0-11.0) Red Blood Count 2.69 x10^6/uL (3.50-5.40) Hemoglobin 8.8 g/dL (12.0-15.5) Hematocrit 26.1 % (36.0-47.0) Mean Corpuscular Volume 97 fL (79-100) Mean Corpuscular Hemoglobin 33 pg (25-35) Mean Corpuscular Hemoglobin Concent 34 g/dL (31-37) Red Cell Distribution Width 20.0 % (11.5-14.5) Platelet Count 117 x10^3/uL (140-400) Neutrophils (%) (Auto) 59 % (31-73) Lymphocytes (%) (Auto) 23 % (24-48) Monocytes (%) (Auto) 14 % (0-9) Eosinophils (%) (Auto) 2 % (0-3) Basophils (%) (Auto) 1 % (0-3) Neutrophils # (Auto) 1.5 x10^3/uL (1.8-7.7) Lymphocytes # (Auto) 0.6 x10^3/uL (1.0-4.8) Monocytes # (Auto) 0.4 x10^3/uL (0.0-1.1) Eosinophils # (Auto) 0.1 x10^3/uL (0.0-0.7) Basophils # (Auto) 0.0 x10^3/uL (0.0-0.2) Sodium Level 132 mmol/L (136-145) Potassium Level 4.1 mmol/L (3.5-5.1) Chloride Level 94 mmol/L (98-107) Carbon Dioxide Level 28 mmol/L (21-32) Anion Gap 10 (6-14) Blood Urea Nitrogen 34 mg/dL (7-20) Creatinine 5.1 mg/dL (0.6-1.0) Estimated GFR (Cockcroft-Gault) 10.2 BUN/Creatinine Ratio 7 (6-20) Glucose Level 118 mg/dL (70-99) Calcium Level 8.6 mg/dL (8.5-10.1) Total Bilirubin 0.5 mg/dL (0.2-1.0) Aspartate Amino Transf (AST/SGOT) 41 U/L (15-37) Alanine Aminotransferase (ALT/SGPT) 17 U/L (14-59) Alkaline Phosphatase 124 U/L (46-116) Total Protein 8.2 g/dL (6.4-8.2) Albumin 3.2 g/dL (3.4-5.0) Albumin/Globulin Ratio 0.6 (1.0-1.7) Lipase 194 U/L (73-393) Laboratory Tests Test 04/08/20 23:00 White Blood Count 2.5 x10^3/uL (4.0-11.0) Red Blood Count 2.69 x10^6/uL (3.50-5.40) Hemoglobin 8.8 g/dL (12.0-15.5) Hematocrit 26.1 % (36.0-47.0) Mean Corpuscular Volume 97 fL (79-100) Mean Corpuscular Hemoglobin 33 pg (25-35) Mean Corpuscular Hemoglobin Concent 34 g/dL (31-37) Red Cell Distribution Width 20.0 % (11.5-14.5) Platelet Count 117 x10^3/uL (140-400) Neutrophils (%) (Auto) 59 % (31-73) Lymphocytes (%) (Auto) 23 % (24-48) Monocytes (%) (Auto) 14 % (0-9) Eosinophils (%) (Auto) 2 % (0-3) Basophils (%) (Auto) 1 % (0-3) Neutrophils # (Auto) 1.5 x10^3/uL (1.8-7.7) Lymphocytes # (Auto) 0.6 x10^3/uL (1.0-4.8) Monocytes # (Auto) 0.4 x10^3/uL (0.0-1.1) Eosinophils # (Auto) 0.1 x10^3/uL (0.0-0.7) Basophils # (Auto) 0.0 x10^3/uL (0.0-0.2) Sodium Level 132 mmol/L (136-145) Potassium Level 4.1 mmol/L (3.5-5.1) Chloride Level 94 mmol/L (98-107) Carbon Dioxide Level 28 mmol/L (21-32) Anion Gap 10 (6-14) Blood Urea Nitrogen 34 mg/dL (7-20) Creatinine 5.1 mg/dL (0.6-1.0) Estimated GFR (Cockcroft-Gault) 10.2 BUN/Creatinine Ratio 7 (6-20) Glucose Level 118 mg/dL (70-99) Calcium Level 8.6 mg/dL (8.5-10.1) Total Bilirubin 0.5 mg/dL (0.2-1.0) Aspartate Amino Transf (AST/SGOT) 41 U/L (15-37) Alanine Aminotransferase (ALT/SGPT) 17 U/L (14-59) Alkaline Phosphatase 124 U/L (46-116) Total Protein 8.2 g/dL (6.4-8.2) Albumin 3.2 g/dL (3.4-5.0) Albumin/Globulin Ratio 0.6 (1.0-1.7) Lipase 194 U/L (73-393) Assessment/Plan Assessment/Plan 65 year-old female with pancytopenia, macrocytic anemia due to hepatitis C, liver cirrhosis and alcohol abuse. The patient has had intermittent pancytopenia with platelets ranging from 95 to 200 since at least 2015. Intermittent character of cytopenias is consistent with periods of ETOH intake. Downward trend in blood counts over the past several years is consistent with progressive liver disease, as evidenced by nodular liver contour and ascites on 04/09/[address] CT. Untreated hepatitis C is frequently associated with cytopenias. Low yield from bone marrow biopsy based on alternative explanation for etiology of pancytopenia/macrocytosis as above and principle of Occam's razor. Markedly elevated IgG, kappa and lambda light chains in 03/2020, ESR 100 in 10/2019, elevated ferritin of 322 from 01/2020 are consistent with significant inflammation/activation of the immune system as a response to untreated hep C. Recurrent upper GI bleeding at least since in this patient with history of PUD, MW tears, alcoholic gastritis. Has been evaluated by GI and surgery, conservative management was recommended. Iron saturation of 10% (serum iron 25, TIBC 258 as of 01/2020) and 7% in 03/2020 is consistent with iron deficiency. No evidence of hemolysis based on normal LDH/haptoglobin. No multiple myeloma or vitamin B12 deficiency based on recent labs. PLAN: 1. Symptom management with PPI bid and transfusions as it has been done. 2. Would hold off on bone marrow biopsy based on the above. 3. Unlikely that patient would be able to undergo hep C treatment course. 4. 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 5. NH placement might help with compliance. Thank you for the opportunity to see your patient. Please call with any questions or concerns. Ryan Perez MD. [phone]. AFSHIN PEREZ MD Apr 09, 2020 18:42
[2020-04-09 19:01] VITALS: BP 125/52
--- NOTE | 2020-04-09 19:39 | CONS ---
DATE OF CONSULTATION: 04/09/2020 REQUESTING PHYSICIAN: Hospitalist. REASON FOR CONSULTATION: Renal failure. HISTORY OF PRESENT ILLNESS: This is a 65-year-old female with end-stage renal disease secondary to diabetes mellitus and hypertensive nephrosclerosis. The patient had recurrent and refractory gastric antral ulcer bleeding. She has had multiple endoscopies as well as embolization. She is currently admitted with recurrent coffee-ground emesis. She will need ongoing dialysis and management of comorbidities associated with end-stage renal disease. PAST MEDICAL AND SURGICAL HISTORY: Diabetes mellitus, hypertension, end-stage renal disease, hemodialysis dependent, anemia of chronic kidney disease, anemia of gastrointestinal blood loss, secondary hyperparathyroidism of renal disease, hyperlipidemia, GE reflux disease, rheumatoid arthritis, cholecystectomy, tonsillectomy, hysterectomy. ALLERGIES: None. MEDICATIONS: Reviewed per med list. FAMILY HISTORY: Noncontributory. SOCIAL HISTORY: The patient resides with assistance. REVIEW OF SYSTEMS: No headache, sinus problem, nasal drainage, epistaxis, change in vision or hearing. No difficulty swallowing. No fever, chills, cough, sputum production, or hemoptysis. No chest pain, shortness of breath, PND, orthopnea, dyspnea on exertion. No abdominal pain. No nausea. She has had coffee-ground emesis. No seizures or malignancies. PHYSICAL EXAMINATION: GENERAL APPEARANCE: The patient is awake, conversant, appropriate. HEENT: Clear. NECK: No increased JVD. No thyromegaly, mass, or adenopathy. LUNGS: Clear. CARDIAC: Without S3 or rub. ABDOMEN: Soft, nontender, no bruits. EXTREMITIES: Without edema. NEUROLOGIC: Nonfocal, nonlocalized. PSYCHIATRIC: Fair attention to detail, appropriate affect. LABORATORY DATA: Hemoglobin 8.8, hematocrit 26, white count is 2.5, platelets are 117. Sodium 132, potassium 4.1, chloride 94, CO2 of 28, BUN 34, creatinine 5.1, GFR 10.2. IMPRESSION: 1. End-stage renal disease secondary to diabetic nephropathy. 2. Recurrent gastrointestinal hemorrhage. 3. Anemia of chronic kidney disease and acute blood loss. RECOMMENDATIONS: 1. Ongoing dialysis. Dialysis today. 2. GI evaluation as you are doing. We will follow. HAYDER LEZAMA MD DR: DEREK/danial JOB#: [id number] / [id number]
[2020-04-09 22:51] VITALS: BP 121/53
[2020-04-10 03:30] VITALS: BP 130/55
[2020-04-10 05:14] LABS: BASO % 1 % (0-3); EOS # 0.1 x10^3/uL (0.0-0.7); EOS % 3 % (0-3); HEMOGLOBIN 7.7 g/dL (12.0-15.5); LYMPH # 0.6 x10^3/uL (1.0-4.8); LYMPH % 30 % (24-48); MEAN CORPUSCULAR HEMOGLOBIN 33 pg (25-35); MEAN CORPUSCULAR HGB CONC 34 g/dL (31-37); MEAN CORPUSCULAR VOLUME 97 fL (79-100); MONO # 0.3 x10^3/uL (0.0-1.1); MONO % 16 % (0-9); NEUT % 49 % (31-73); PLATELET COUNT 86 x10^3/uL (140-400); RED BLOOD COUNT 2.36 x10^6/uL (3.50-5.40)
[2020-04-10 05:35] LABS: CALCIUM 8.7 mg/dL (8.5-10.1); CREATININE 3.7 mg/dL (0.6-1.0); GFR 14.8; POTASSIUM 3.6 mmol/L (3.5-5.1)
[2020-04-10 07:00] VITALS: BP 128/53
[2020-04-10] MEDS: SUCRALFATE 1 GM TABLET. PO SCH ×2 (08:04→20:40)
[2020-04-10] MEDS: HYDROcodone/APAP 5/325MG 1 TAB TABLET PO PRN ×3 (08:05→20:40)
[2020-04-10] MEDS: PANTOPRAZOLE IV PUSH 40 MG VIAL. IVP SCH (09:00)
[2020-04-10 11:00] VITALS: BP 164/78
--- NOTE | 2020-04-10 11:13 | PDOC ---
[facility] [facility] PROGRESS NOTE Chief Complaint Chief Complaint GI bleed History of alcohol issues Chronic hep C Pancytopenia End-stage renal disease on dialysis Recurrent GI bleeds and she has had numerous endoscopies. She had an embolization done recently in June of last year, hypertension, hyperlipidemia, constipation, GERD, anemia, hep A, B and C, rheumatoid arthritis, hematuria, diabetes, hyperparathyroidism, previous addictions according to the chart. History of Present Illness History of Present Illness 04/10/2020 Patient seen and examined Discussed with RN Chart reviewed Appreciate subspecialist input Bone marrow is on hold for now as we think this might be all secondary to chronic hep C and alcohol and end-stage renal disease Vitals/I&O Vitals/I&O: Vital Signs Date Time Temp Pulse Resp B/P (MAP) Pulse Ox O2 Delivery O2 Flow Rate FiO2 04/10/20 08:00 Room Air 04/10/20 07:00 98.2 73 18 128/53 (78) 96 98.2 I & O 04/09/20 04/09/20 04/10/20 15:00 23:00 07:00 Intake Total 0 ml 600 ml 200 ml Output Total 0 ml Balance 0 ml 600 ml 200 ml Physical Exam General: Alert, Oriented X3 Heart: Regular rate, Normal S1, Normal S2 Lungs: Clear, Wheezing Abdomen: Normal bowel sounds, Soft, No hepatosplenomegaly, Other (Mild epigastric tenderness) Extremities: No clubbing Labs Labs: Laboratory Tests Test 04/10/20 03:35 White Blood Count 2.0 x10^3/uL (4.0-11.0) Red Blood Count 2.36 x10^6/uL (3.50-5.40) Hemoglobin 7.7 g/dL (12.0-15.5) Hematocrit 23.0 % (36.0-47.0) Mean Corpuscular Volume 97 fL (79-100) Mean Corpuscular Hemoglobin 33 pg (25-35) Mean Corpuscular Hemoglobin Concent 34 g/dL (31-37) Red Cell Distribution Width 20.0 % (11.5-14.5) Platelet Count 86 x10^3/uL (140-400) Neutrophils (%) (Auto) 49 % (31-73) Lymphocytes (%) (Auto) 30 % (24-48) Monocytes (%) (Auto) 16 % (0-9) Eosinophils (%) (Auto) 3 % (0-3) Basophils (%) (Auto) 1 % (0-3) Neutrophils # (Auto) 1.0 x10^3/uL (1.8-7.7) Lymphocytes # (Auto) 0.6 x10^3/uL (1.0-4.8) Monocytes # (Auto) 0.3 x10^3/uL (0.0-1.1) Eosinophils # (Auto) 0.1 x10^3/uL (0.0-0.7) Basophils # (Auto) 0.0 x10^3/uL (0.0-0.2) Sodium Level 140 mmol/L (136-145) Potassium Level 3.6 mmol/L (3.5-5.1) Chloride Level 102 mmol/L (98-107) Carbon Dioxide Level 29 mmol/L (21-32) Anion Gap 9 (6-14) Blood Urea Nitrogen 18 mg/dL (7-20) Creatinine 3.7 mg/dL (0.6-1.0) Estimated GFR (Cockcroft-Gault) 14.8 Glucose Level 96 mg/dL (70-99) Calcium Level 8.7 mg/dL (8.5-10.1) Assessment and Plan Assessmemt and Plan Problems Medical Problems: (1) Coffee ground emesis Status: Acute (2) End stage renal disease Status: Acute GI bleed History of alcohol issues Chronic hep C Pancytopenia End-stage renal disease on dialysis Recurrent GI bleeds and she has had numerous endoscopies. She had an embolization done recently in June of last year, hypertension, hyperlipidemia, constipation, GERD, anemia, hep A, B and C, rheumatoid arthritis, hematuria, diabetes, hyperparathyroidism, previous addictions according to the chart. Plan PRN transfusions Trend hemoglobin We are holding off on bone marrow for now as we suspect this might all be secondary to hep C alcohol and chronic end-stage liver disease Home meds DVT prophylaxis Full code Appreciate subspecialist input Long-term prognosis guarded Comment Review of Relevant I have reviewed the following items tamika (where applicable) has been applied. Medications: Current Medications Medications (Trade) Dose Ordered Sig/Kimberly Route PRN Reason Start Time Stop Time Status Last Admin Dose Admin Acetaminophen/ Hydrocodone Bitart (Lortab 5/325) 1 tab PRN Q6HRS PRN PO PAIN 04/10/20 06:30 04/10/20 08:05 Justicifation of Admission Dx: Justifications for Admission: Justification of Admission Dx: Yes Chronic Renal Failure: Hemodynamic Instability VIKAS GAMEZ III DO Apr 10, 2020 11:13
--- NOTE | 2020-04-10 14:43 | PDOC ---
GI PROGRESS NOTES Date Date/Time DATE: 04/10/20 TIME: 14:42 Subjective Subjective Resting today. No further hematemesis reported. Objective Vitals Vital Signs Date Time Temp Pulse Resp B/P (MAP) Pulse Ox O2 Delivery O2 Flow Rate FiO2 04/10/20 14:02 Room Air 04/10/20 11:00 98.0 71 18 164/78 (106) 100 Room Air 98.0 04/10/20 08:00 Room Air 04/10/20 07:00 98.2 73 18 128/53 (78) 96 Room Air 98.2 04/10/20 03:30 98.1 78 21 130/55 (80) 97 Room Air 98.1 04/09/20 22:51 98.2 72 16 121/53 (75) 100 98.2 04/09/20 22:19 100 Room Air 04/09/20 20:00 Room Air 04/09/20 19:01 98.2 72 16 125/52 (76) 100 Room Air 98.2 04/09/20 18:15 Room Air 04/09/20 15:36 98.0 77 18 115/44 (67) 97 Room Air 98.0 Labs Labs Laboratory Tests Test 04/10/20 03:35 White Blood Count 2.0 x10^3/uL (4.0-11.0) Red Blood Count 2.36 x10^6/uL (3.50-5.40) Hemoglobin 7.7 g/dL (12.0-15.5) Hematocrit 23.0 % (36.0-47.0) Mean Corpuscular Volume 97 fL (79-100) Mean Corpuscular Hemoglobin 33 pg (25-35) Mean Corpuscular Hemoglobin Concent 34 g/dL (31-37) Red Cell Distribution Width 20.0 % (11.5-14.5) Platelet Count 86 x10^3/uL (140-400) Neutrophils (%) (Auto) 49 % (31-73) Lymphocytes (%) (Auto) 30 % (24-48) Monocytes (%) (Auto) 16 % (0-9) Eosinophils (%) (Auto) 3 % (0-3) Basophils (%) (Auto) 1 % (0-3) Neutrophils # (Auto) 1.0 x10^3/uL (1.8-7.7) Lymphocytes # (Auto) 0.6 x10^3/uL (1.0-4.8) Monocytes # (Auto) 0.3 x10^3/uL (0.0-1.1) Eosinophils # (Auto) 0.1 x10^3/uL (0.0-0.7) Basophils # (Auto) 0.0 x10^3/uL (0.0-0.2) Sodium Level 140 mmol/L (136-145) Potassium Level 3.6 mmol/L (3.5-5.1) Chloride Level 102 mmol/L (98-107) Carbon Dioxide Level 29 mmol/L (21-32) Anion Gap 9 (6-14) Blood Urea Nitrogen 18 mg/dL (7-20) Creatinine 3.7 mg/dL (0.6-1.0) Estimated GFR (Cockcroft-Gault) 14.8 Glucose Level 96 mg/dL (70-99) Calcium Level 8.7 mg/dL (8.5-10.1) Assessment Assessment Hematemesis. Likely resolved probably in part from persistent gastritis and pep tic disease with superimposed liver disease. Fortunately appears to have stopped. History of recurring and persistent gastric ulcer. History of chronic anemia. In part from chronic GI blood loss, end-stage renal disease and cirrhosis. Plan Plan Continue PPI and Carafate therapy with close monitoring. Justicifation of Admission Dx: Justifications for Admission: Justification of Admission Dx: Yes Chronic Renal Failure: Hemodynamic Instability CARLOS MCCALL MD Apr 10, 2020 14:43
[2020-04-10 15:00] VITALS: BP 136/61
[2020-04-10] MEDS: CARVEDILOL 12.5 MG TABLET. PO SCH (17:10)
[2020-04-10] MEDS: FERROUS SULFATE 325 MG TABLET. PO SCH (17:11)
[2020-04-10 19:41] VITALS: BP 119/75
[2020-04-10 23:42] VITALS: BP 123/54
[2020-04-11 03:09] VITALS: BP 123/61
[2020-04-11] MEDS: HYDROcodone/APAP 5/325MG 1 TAB TABLET PO PRN ×2 (03:12→09:33)
--- NOTE | 2020-04-11 06:16 | EKG ---
[facility] [address] [place] [address] Test Date: 2020-04-08 Test Time: 22:37:57 Pat Name: CESAR AGEE Department: Room: 650 1 Gender: F Cerner Analyst: : 1955 Requested By: KAREN TRACY Order Number: [id number] Reading MD: Kalin Rai MD Measurements Intervals [place] Rate: 89 P: 41 NH: 158 QRS: 58 QRSD: 80 T: 11 QT: 372 QTc: 454 Interpretive Statements SINUS RHYTHM NON-SPECIFIC ST/T CHANGES Electronically Signed On 04-11-2020 13:17:37 CDT by Kalin Rai MD
[2020-04-11] MEDS ORDERED: PANTOPRAZOLE 40 MG TABLET.DR. PO SCH ×2 (07:30)
[2020-04-11 07:35] VITALS: BP 126/43
[2020-04-11] MEDS: SUCRALFATE 1 GM TABLET. PO SCH (08:20)
[2020-04-11] MEDS: CARVEDILOL 12.5 MG TABLET. PO SCH (08:21)
[2020-04-11] MEDS: FERROUS SULFATE 325 MG TABLET. PO SCH (08:21)
[2020-04-11] MEDS ORDERED: FOLIC ACID 1 MG TABLET. PO SCH (09:00)
--- NOTE | 2020-04-11 09:38 | SNU/HH DC ---
DISCHARGE WITH HOME HEALTH DISCHARGE INFORMATION: Final Diagnosis: Problems Medical Problems: (1) Coffee ground emesis Status: Acute (2) End stage renal disease Status: Acute Condition on Discharge: Stable CODE STATUS: Code Status: Full HOME HEALTH: Face to Face: I certify this patient is under my care and that I, or a nurse practitioner or physician's liaison inspection laboratory assistant working with me, had a face to face encounter that meets the physician face to face encounter requirements with this patient on []. Medical Complications: Other (ESRD) Intermediate For: Assess & Educate Safety RN For Eval/Treatment: Yes Physical Therapy For: Evalulation/Treatment Occupational Therapy For: Evaluation/Treatment Home Health Aide For: Self-care [employer] WEIGHMASTER For: Community Resources Pt Meets Homebound Status: Poor coordination w/ amb. POST DISCHARGE ORDERS: Activity Instructions for Disc: Other, see below Weight Bearing Status after Di: Other, see below DIET AFTER DISCHARGE: ADA Wound/Incision Care: No wound care needed CHECKS AFTER DISCHARGE: Checks after discharge: Check blood press - daily, Check blood sugar, ac/hs, Check your Temp as needed, Weigh Yourself Daily TREATMENT/EQUIPMENT ORDERS: Adaptive Equipment Issued: None CERTIFICATION STATEMENT: Certification Statement: Certification Statement: Based on the above finding, I certify that this patient is confined to the home and needs intermittent fdc care, physical therapy and/or speech therapy, or continues to need occupational therapy.~ This patient is under my care, and I have initiated the establishment of the plan of care.~ This patient will be followed by myself or a community physician who will periodically review the plan of care. Home Meds Active Scripts Ferrous Sulfate (FEOSOL) 325 Mg Tablet, 325 MG PO BIDWMEALS for anemia for 60 Days, #120 TAB Prov:BERNARDO NG MD 03/08/20 Albuterol Sulfate (Proair Hfa) 8.5 Gm Hfa.aer.ad, 2.5 MG NEB PRN Q2HRS PRN for SOB / WHILE AWAKE for 30 Days, #30 INHALER Prov:ASHIA MOSS MD 09/27/19 Pantoprazole Sodium (PANTOPRAZOLE SODIUM ) 40 Mg Tablet.dr, 40 MG PO DAILYAC for Bleeding ulcer for 30 Days, #30 TAB.SR 5 Refills Prov:MELY OLVERA MD 07/04/19 Reported Medications Carvedilol (CARVEDILOL) 25 Mg Tablet, 25 MG PO BIDWMEALS for CARDIAC, TAB 03/05/20 Folic Acid (FOLIC ACID) 0.4 Mg Tablet, 0.4 MG PO DAILY for supplement, TAB 03/05/20 Acetaminophen (ACETAMINOPHEN) 500 Mg Tablet, 1 TAB PO PRN Q6HRS PRN for pain or fever for 15 Days, #60 TAB 0 Refills 12/30/19 Discontinued Reported Medications Oxycodone/Apap 7.5-325 (PERCOCET 7.5-325 MG TABLET ) 1 Each Tablet, 1 TAB PO PRN QID PRN for PAIN MDD 3 Tablet(s) for 5 Days, #15 TAB 0 Refills 11/11/19 VIKAS GAMEZ III DO Apr 11, 2020 09:38
--- NOTE | 2020-04-11 09:39 | SNU/HH DC ---
DISCHARGE ORDERS DISCHARGE INFORMATION: FINAL DIAGNOSIS Problems Medical Problems: (1) Coffee ground emesis Status: Acute (2) End stage renal disease Status: Acute CONDITION ON DISCHARGE: Stable CODE STATUS: Code Status: Full LONG-TERM: SNF STAY <30 DAYS: Yes HOSPICE: HOSPICE: No HOSPICE EVAL & TREAT: No LTAC: ADMIT TO LTAC: No POST DISCHARGE ORDERS: ACTIVITY ORDERS: Other, see below WEIGHT BEARING STATUS: Other, see below DIET AFTER DISCHARGE: ADA WOUND/INCISION CARE: No wound care needed CHECKS AFTER DISCHARGE: CHECKS AFTER DISCHARGE: Check blood press - daily, Check blood sugar, ac/hs, Check your Temp as needed, Weigh Yourself Daily TREATMENT/EQUIPMENT ORDERS: ADAPTIVE EQUIPMENT NEEDED: None Physical Therapy For: Evalulation/Treatment Occupational Therapy For: Evaluation/Treatment Speech Language Pathology For: Evaluation/Treatment DISCHARGE MEDICATIONS: Home Meds Active Scripts Ferrous Sulfate (FEOSOL) 325 Mg Tablet, 325 MG PO BIDWMEALS for anemia for 60 Days, #120 TAB Prov:BERNARDO NG MD 03/08/20 Albuterol Sulfate (Proair Hfa) 8.5 Gm Hfa.aer.ad, 2.5 MG NEB PRN Q2HRS PRN for SOB / WHILE AWAKE for 30 Days, #30 INHALER Prov:ASHIA MOSS MD 09/27/19 Pantoprazole Sodium (PANTOPRAZOLE SODIUM ) 40 Mg Tablet.dr, 40 MG PO DAILYAC for Bleeding ulcer for 30 Days, #30 TAB.SR 5 Refills Prov:MELY OLVERA MD 07/04/19 Reported Medications Carvedilol (CARVEDILOL) 25 Mg Tablet, 25 MG PO BIDWMEALS for CARDIAC, TAB 03/05/20 Folic Acid (FOLIC ACID) 0.4 Mg Tablet, 0.4 MG PO DAILY for supplement, TAB 03/05/20 Acetaminophen (ACETAMINOPHEN) 500 Mg Tablet, 1 TAB PO PRN Q6HRS PRN for pain or fever for 15 Days, #60 TAB 0 Refills 12/30/19 Discontinued Reported Medications Oxycodone/Apap 7.5-325 (PERCOCET 7.5-325 MG TABLET ) 1 Each Tablet, 1 TAB PO PRN QID PRN for PAIN MDD 3 Tablet(s) for 5 Days, #15 TAB 0 Refills 11/11/19 VIKAS GAMEZ III DO Apr 11, 2020 09:39
--- NOTE | 2020-04-11 10:45 | NUR ---
SW following for discharge planning. Reviewed chart and coordinated care with RN and Dr. Jacobo. SW familiar with this pt from previous admissions. Pt lives at home alone with HCBS through the [facility]. Pt goes to dialysis on Saturday, , Saturday at [facility], ; fax [phone]. Pt on room air. Pt to discharge home today, 04/11/2020. SW called [facility] to inform them of pt's discharge with resumption of out-patient dialysis. No further SW needs at this time.
--- NOTE | 2020-04-11 10:50 | DS ---
DATE OF DISCHARGE: 04/11/2020 ADMISSION DIAGNOSIS: Recurrent gastrointestinal bleed. DISCHARGE DIAGNOSES: Resolving gastrointestinal bleed; end-stage renal disease, on dialysis; diabetes; hyperlipidemia; hypertension; pancytopenia (we think this is from chronic hepatitis C and alcohol); history of cardiac embolization in June of last year; hypertension; constipation; GERD; anemia; chronic hepatitis C; rheumatoid arthritis; hematuria; diabetes; hyperparathyroidism; and previous addictions. CONSULTS: Hematology/Oncology, Nephrology, and GI. PROCEDURES: None. HOSPITAL COURSE: The patient is a pleasant elderly female who is on dialysis. She has multiple comorbidities. She has been admitted several times recently. In fact, she left against medical advice a few days ago prior to this admit. Once again, she had some GI bleeding. We trended her hemoglobin. We consulted GI. We got her dialyzed. I also consulted Heme/Onc to consider a bone marrow biopsy, but they feel like her pancytopenia is probably secondary to hepatitis C and alcohol. Overall, she is at her baseline. This morning, I saw her and examined her. Heart tones are normal. Lungs are clear. We plan to discharge with close outpatient followup. DISPOSITION: Home. ACTIVITY: As tolerated. DIET: Low sodium. MEDICATIONS: Please see MRAD. TOTAL TIME: 32 minutes. VIKAS GAMEZ DO DR: CAMMIE/danial JOB#: [id number] / [id number]
--- NOTE | 2020-04-11 11:24 | PDOC ---
Subjective: Subjective: Called by Dr. Jacobo this morning - says no plans for bone marrow biopsy, wondering about DC. Pt tells me she came to [facility] for nausea. Denies bleeding - "they said I did in the ER but I didn't see it." Would like something other than clears - doesn't like broth. Would also like some pain medication for her shoulders - says Lortab didn't help. Objective: Vital Signs: Vital Signs Date Time Temp Pulse Resp B/P (MAP) Pulse Ox O2 Delivery O2 Flow Rate FiO2 04/11/20 10:53 99 Room Air 04/11/20 08:21 66 126/43 04/11/20 07:35 98.3 18 98.3 PE: GEN: NAD, up in chair eating winston crackers LUNGS: CTAB HEART: RRR ABD: S/ND/NT NEURO/PSYCH: A & O 3 A/P: Chronic anemia, ?coffee-ground emesis - Hgb stable/around baseline for her, no evidence of recurrent bleeding H/o recurrent UGI bleeding, refractory ulcer - H. pylori negative x 2, last endotherapy 01/12/20 (has had 7 EGDs since 2016), past GDA embolization by and surgical evals (poor surgical candidate) GERD, cirrhosis, Hep C, h/o C Diff, h/o pancreatitis CRC screen - last colonoscopy unremarkable at in 2019 ESRD on HD (h/o non-compliance, missed dialysis 04/02/20), h/o alcohol overuse (still drinks some) Shoulder pain, h/o NSAID use -- D/w Dr. Faulkner - okay to ADAT and consider DC per GI - d/w nurse. Pain control per Dr. Jacobo - prefer no NSAIDs. Continue PPI and iron +/- sucralfate. Justicifation of Admission Dx: Justifications for Admission: Justification of Admission Dx: Yes Chronic Renal Failure: Hemodynamic Instability IRIS SZYMANSKI Apr 11, 2020 11:24
[2020-04-11 11:26] VITALS: BP 142/50
--- NOTE | 2020-04-11 13:15 | PDOC ---
SUBJECTIVE ROS No complaints, eating lunch, wants to go home OBJECTIVE Vital Signs Vital Signs Date Time Temp Pulse Resp B/P (MAP) Pulse Ox O2 Delivery O2 Flow Rate FiO2 04/11/20 11:26 98.3 62 18 142/50 (80) 97 Room Air 98.3 I & 0 Intake and Output 04/11/20 07:00 Intake Total 110 ml Output Total 0 ml Balance 110 ml Intake Oral 110 ml Output Urine Total 0 ml # Voids 2 PHYSICAL EXAM Physical Exam GEN.: No apparent distress. HEENT: OM moist NECK: Supple. LUNGS: Clear to auscultation, non labored HEART: RRR, S1, S2 present. ABDOMEN: Soft, nontender. Positive bowel sounds. EXTREMITIES: No LE edema NEUROLOGIC: grossly normal SKIN: No rash No CVA or SP tenderness, No Carbajal DIAGNOSIS/ASSESSMENT Assessment & Plan ESRD 2/ 2 DM and HTN, On TTS schedule No indication for HD today Resume HD at OP unit tomorrow if dced ?coffee-ground emesis - Hgb stable/around baseline for her, no evidence of recurrent bleeding H/o recurrent UGI bleeding, refractory ulcer - H. pylori negative x 2, last endotherapy 01/12/20 (has had 7 EGDs since 2016), past GDA embolization by and surgical evals (poor surgical candidate) GERD, cirrhosis, Hep C, h/o C Diff, h/o pancreatitis Anemia -- No active gastrointestinal bleeding, Diabetes-Type II, History of GERD and GI Bleed Essential Hypertension- stable, antihypertensives COMMENT/RELEVANT DATA Meds Current Medications Medications (Trade) Dose Ordered Sig/Kimberly Start Time Stop Time Status Last Admin Dose Admin Acetaminophen/ Hydrocodone Bitart (Lortab 5/325) 1 tab PRN Q6HRS PRN 04/10/20 06:30 04/11/20 09:33 1 TAB Albumin Human 200 ml @ 200 mls/hr 1X PRN PRN 04/09/20 08:00 04/09/20 13:59 DC Carvedilol (Coreg) 25 mg BIDWMEALS 04/10/20 17:00 04/11/20 08:21 25 MG Ferrous Sulfate (Feosol) 325 mg BIDWMEALS 04/10/20 17:00 04/11/20 08:21 325 MG Folic Acid (Folic Acid) 1 mg DAILY 04/11/20 09:00 04/11/20 08:22 1 MG Info (PHARMACY MONITORING -- do not chart) 1 each PRN DAILY PRN 04/09/20 08:00 Morphine Sulfate (Morphine Sulfate) 2 mg PRN Q2HR PRN 04/09/20 04:30 04/10/20 04:29 DC 04/09/20 22:19 2 MG Ondansetron HCl (Zofran) 4 mg PRN Q8HRS PRN 04/09/20 04:30 04/10/20 04:29 DC Pantoprazole Sodium (PROTONIX VIAL for IV PUSH) 40 mg BID 04/09/20 09:00 04/10/20 11:02 DC 04/09/20 20:45 40 MG Pantoprazole Sodium (Protonix) 40 mg DAILYAC 04/11/20 07:30 04/11/20 07:32 40 MG Sodium Chloride 1,000 ml @ 400 mls/hr Q2H30M PRN 04/09/20 08:00 04/09/20 19:59 DC Sucralfate (Carafate) 1 gm BID 04/09/20 09:00 04/11/20 08:20 1 GM Results All relevant outside records, renal labs, imaging studies, telemetry/EKG's were reviewed. Justicifation of Admission Dx: Justifications for Admission: Justification of Admission Dx: Yes Chronic Renal Failure: Hemodynamic Instability GINO TAN MD Apr 11, 2020 13:15
--- NOTE | 2020-04-11 13:17 | NUR ---
Discharge Note: CESAR AGEE [address] Discharge instructions and discharge home medications reviewed with Patient and a copy given. All questions have been answered and understanding verbalized. The following instructions and handouts were given: discharge instructions, education and follow up recommendations. Discontinued lines and drains: peripheral IV discontinued by prior RN intact. Patient discharged to Home or Self Care with Family Member via Wheelchair off unit by this RN.
== END 2020-04-11 13:18 | disposition home or self-care (01) | DRG 377 ==
LOC: ER 22:28 → 6 SOUTH 04-09 05:12
PROVIDERS: ADMIT Internal Medicine; ATTEND Internal Medicine
PROC: 5A1D70Z Performance of Urinary Filtration, Intermittent, Less than 6 Hours Per Day (ICD-10-PCS; principal; 2020-04-09)
DX: K29.71 Gastritis, unspecified, with bleeding (principal); N18.6 End stage renal disease; D61.818 Other pancytopenia; I12.0 Hypertensive chronic kidney disease with stage 5 chronic kidney disease or end stage renal disease; N25.81 Secondary hyperparathyroidism of renal origin; E21.3 Hyperparathyroidism, unspecified; B18.2 Chronic viral hepatitis C; E11.22 Type 2 diabetes mellitus with diabetic chronic kidney disease; E11.21 Type 2 diabetes mellitus with diabetic nephropathy; E78.5 Hyperlipidemia, unspecified; F10.10 Alcohol abuse, uncomplicated; K21.9 Gastro-esophageal reflux disease without esophagitis; R62.7 Adult failure to thrive; K74.60 Unspecified cirrhosis of liver; M06.9 Rheumatoid arthritis, unspecified; Z80.0 Family history of malignant neoplasm of digestive organs; Z83.3 Family history of diabetes mellitus; Z87.19 Personal history of other diseases of the digestive system; Z87.442 Personal history of urinary calculi; Z87.01 Personal history of pneumonia (recurrent); Z90.710 Acquired absence of both cervix and uterus; Z91.19 Patient's noncompliance with other medical treatment and regimen; Z99.2 Dependence on renal dialysis; Z68.35 Body mass index [BMI] 35.0-35.9, adult; Z90.49 Acquired absence of other specified parts of digestive tract
CPT/HCPCS: 36415; 71045; 74176; 80048; 80053; 83690; 85025; 93005; 96361; 96374; 96375; 96376; 99285; C9113; J2270; J2405; J7030; G0378

== ENCOUNTER 2020-05-26 17:54 | Inpatient (IN) | payer MEDICARE, MEDICAID ==
[~2020-05-26] VITALS: Ht 157.5 cm; Wt 82.4 kg
[2020-05-26 18:33] LABS: BASO % 1 % (0-3); EOS % 0 % (0-3); LYMPH # 0.2 x10^3/uL (1.0-4.8); LYMPH % 16 % (24-48); MEAN CORPUSCULAR HEMOGLOBIN 33 pg (25-35); MEAN CORPUSCULAR HGB CONC 33 g/dL (31-37); MEAN CORPUSCULAR VOLUME 99 fL (79-100); MONO # 0.3 x10^3/uL (0.0-1.1); MONO % 21 % (0-9); NEUT # 0.8 x10^3/uL (1.8-7.7); NEUT % 62 % (31-73); PLATELET COUNT 109 x10^3/uL (140-400); RED BLOOD COUNT 2.08 x10^6/uL (3.50-5.40); RED CELL DISTRIBUTION WIDTH 18.7 % (11.5-14.5)
--- NOTE | 2020-05-26 18:34 | PHYS DOC ---
Past Medical History Past Medical History: Anemia, Diabetes-Type II, GERD, GI Bleed, Hypertension, Kidney Stone, Pancreatitis, Pneumonia, Renal Failure, Other Additional Past Medical Histor: Ulcers,ESRD,C-DIFF,CIRRHOSIS Past Surgical History: Cholecystectomy, Other Additional Past Surgical Histo: dialysis shunt ulcers Smoking Status: Never Smoker Alcohol Use: Rarely Drug Use: None General Adult EDM: Chief Complaint: FEVER HPI: HPI: Patient is a 65 year old female who presents with diffuse body aches that started this morning. Patient tested positive for hernandez virus last week. She went to dialysis this morning feeling achy which got progressively worse during dialysis. She is unsure if she has been running fevers. She has not been ill up until today despite being positive for the virus. She denies any other symptoms that accompany this. She denies any shortness of breath or cough. She does not have any numbness or weakness Review of Systems: Review of Systems: General: Denies fever, chills, sweats, fatigue Eyes: Denies drainage, blurred vision, eye redness HENT: Denies rhinorrhea, sore throat, earache Respiratory: Denies cough, shortness of breath, wheezing Cardiac: Denies edema, palpitations, chest pain GI: Denies abdominal pain, Nausea, vomiting MSK: Denies back pain, neck pain Skin: Denies rash, jaundice Neuro: Denies headache, dizziness Psychiatric: Denies SI/HI Heart Score: Risk Factors: Risk Factors: DM, Current or recent (<one month) smoker, HTN, HLP, family history of CAD, obesity. Risk Scores: Score 0 - 3: 2.5% MACE over next 6 weeks - Discharge Home Score 4 - 6: 20.3% MACE over next 6 weeks - Admit for Clinical Observation Score 7 - 10: 72.7% MACE over next 6 weeks - Early Invasive Strategies Allergies: Allergies: Allergies Coded Allergies Type Severity Reaction Last Updated Verified No Known Drug Allergies 05/11/20 No Physical Exam: PE: General: Awake, alert, mild distress. Well Nourished, well hydrated. Cooperative HEENT: Atraumatic, EOMI, PERRL, airway patent, moist oral mucosa Neck: Supple, trachea midline Respiratory: CTA bilaterally, normal effort, no wheezing/crackles CV: RRR, no murmur, cap refill <2 GI: Soft, nondistended, nontender, no masses MSK: No obvious deformities Skin: Warm, dry, intact Neuro: A&O x3, speech NL, sensory and motor grossly intact, no focal deficits Psych: Normal affect, normal mood, not suicidal or homicidal EKG: EKG: [] Radiology/Procedures: Radiology/Procedures: [] Course & Med Decision Making: Course & Med Decision Making Pertinent Labs and Imaging studies reviewed. (See chart for details) Patient is a 65-year-old female who presents to the emergency room with diffuse body aches. Patient has known novel coronavirus 19. Risk stratifying work-up was ordered including chest x-ray, d-dimer, CPK, CRP, LDH, troponin, ferritin, CBC, CMP. She was given medication for her body aches. Patient is anemic, however this appears to be chronic. There is no signs of acute bleeding. She has a low white blood cell count as well. Patient does have a chronically low white blood cell count. This may be worse than usual due to her ongoing coronavirus. Due to concern of COVID-19 I have discussed the importance of quarantining with the patient. I have discussed with them that they should avoid grocery stores, gas stations, pharmacies, work, friends/family's homes. I discussed with him that it is important that they do not expose themselves to anyone else for the next 14 days. Chest x-ray [] show infiltrates at this time and patient [] be treated with empiric antibiotics. I have discussed with the patient the course of the illness and we have discussed strict return precautions. At this time patient does not need admission as they are stable, however it is possible that they may get worse over the next few days and we have discussed the importance of coming back if they develop severe shortness of breath or any other symptoms that they are concerned about. Patient's test results and vitals while in the ED were fully reviewed and discussed with the patient. Patient is stable and at this time does not need admission to the hospital. We have discussed strict return precautions and the importance of following up with their Primary Care Physician. Patient stated understanding and was given an opportunity to ask any questions. Elvison Disclaimer: Dragfanny Disclaimer: This electronic medical record was generated, in whole or in part, using a voice recognition dictation system. COVID-19 Patient Risks: Age 65 or older: Yes Sign of co-morbidity: Yes Exp to person + for COVID: Yes Travel from affected area: No PPE Use: Full PPE with N95 mask or PAPR: Yes Departure Departure Impression: Primary Impression: Coronavirus infection Additional Impression: ESRD (end stage renal disease) on dialysis Disposition: HOME, SELF-CARE Referrals: NO PCP (PCP) Patient Instructions: Myalgia, Adult Additional Instructions: Thank you for visiting [facility]. We appreciate you trusting us with your care. If any additional problems come up please don't hesitate to return to visit us. Follow up with your primary care provider so they can plan additional care if needed and know about the problem that you had today. If symptoms worsen come back to the Emergency Department. Any concerning symptoms that start such as chest pain, shortness of air, weakness or numbness on one side of the body, running high fevers or any other concerning symptoms return to the ER. You have a viral syndrome which may include symptoms like muscle aches, fevers, chills, runny nose, cough, sneezing, sore throat, nausea, vomiting, or diarrhea. One of the potential viruses that you may have is SARS-CoV-2, the virus that causes COVID-19, also known as the Coronavirus. You are just as likely to have a different viral infection such as the common cold, flu, etc. Most patients with the Coronavirus have mild symptoms and recover on their own. Resting, staying hydrated, and sleep based on known cases can be helpful. As of todays visit, you are well enough to go home and treat your symptoms with oral fluids and over the counter medications. Please follow the following precautions at home: 1. Stay home except to get medical care. 2. As advised by the CDC, we recommend that you stay in your home and minimize contact with other people. We do not want you to spread the infection. 3. Those who are older or have significant medical issues may have more severe symptoms from this infection. We recommend self-isolation FOR AT LEAST 7 DAYS after your 1st day of symptoms. AFTER you feel better please wait AT LEAST ANOTHER WEEK before returning to regular activities and being around other people. 4. IF you become sicker and have difficulty breathing, chest pain, are unable to eat/drink, severe vomiting, diarrhea, or weakness you may need to return to the Emergency Department. 5. You should restrict activities outside of your home, except for getting medical care. DO NOT go to work, school, or public areas. Avoid using public t ransportation, ride sharing, or taxis. 6. Separate yourself from other people in your home. You should use a separate bathroom if possible. 7. Avoid sharing personal household items such as dishes, cups, eating utensils, towels, etc. 8. Clean all high touch surfaces every day (door knobs, counter tops, etc). Use a household cleaning spray or wipe per label instructions. 9. Clean your hands often. Wash your hands with soap and water for at least 20 seconds. 10. Cover your mouth and nose when you cough or sneeze. 11. Throw used tissues in the trash and immediately wash your hands. For additional resources please visit the CDC website or the [facility] ([phone]), you may also call 211 for further information. Scripts Hydrocodone/Apap 5-325 (NORCO 5-325 TABLET) 1 Each Tablet 1 TAB PO PRN Q6HRS PRN for PAIN, #10 TAB 0 Refills Prov: AKIKO BENSON MD 05/26/20 Justicifation of Admission Dx: Justifications for Admission: Justification of Admission Dx: Yes Chronic Renal Failure: Hemodynamic Instability AKIKO BENSON MD May 26, 2020 18:34
[2020-05-26 18:43] LABS: HEMATOCRIT 20.7 % (36.0-47.0); HEMOGLOBIN 6.8 g/dL (12.0-15.5); WHITE BLOOD COUNT 1.3 x10^3/uL (4.0-11.0)
[2020-05-26] MEDS ORDERED: MORPHINE SULFATE 10 MG/ML VIAL. IV ONE (18:45)
[2020-05-26 18:49] LABS: CREATININE 3.8 mg/dL (0.6-1.0); GFR 14.4
[2020-05-26 18:53] LABS: ALBUMIN 3.1 g/dL (3.4-5.0); ALBUMIN/GLOBULIN RATIO 0.6 (1.0-1.7); C-REACTIVE PROTEIN 30.7 mg/L (0-3.3); TOTAL BILIRUBIN 0.6 mg/dL (0.2-1.0); TOTAL PROTEIN 8.2 g/dL (6.4-8.2)
[2020-05-26 19:24] LABS: % LYMPHS 16 % (24-48); % MONOS 14 % (0-10); % SEGS 70 % (35-66)
[2020-05-26 19:25] LABS: ANISOCYTOSIS SLIGHT; PLT ESTIMATE DECREASED (ADEQUATE); TARGET CELLS OCC
[2020-05-26 19:26] LABS: POIKILOCYTOSIS SLIGHT; SCHISTOCYTES OCC
--- NOTE | 2020-05-26 19:33 | RAD ---
Exam: Chest one view INDICATION: Cough, Covid? TECHNIQUE: Frontal view of the chest Comparisons: 04/09/2020 FINDINGS: The cardiomediastinal silhouette and pulmonary vessels are within normal limits. Patchy areas of airspace disease bilaterally. No pleural effusion. IMPRESSION: Patchy bilateral airspace disease may represent infectious or inflammatory process. Could be seen in setting of atypical/viral pneumonia. Electronically signed by: Ross Vergara MD (05/26/2020 7:31 PM) [id number]
[2020-05-26] MEDS ORDERED: CARVEDILOL 6.25 MG TABLET. PO ONE (20:30)
[2020-05-26] MEDS ORDERED: HYDR-3164 PO (20:31)
[2020-05-26] MEDS ORDERED: ONDANSETRON PF 4 MG/2 ML VIAL. ONE (20:56)
[2020-05-27] VITALS (10 sets, daily range): BP systolic 146–186; BP diastolic 65–85
[2020-05-27 05:07] LABS: BASO % 1 % (0-3); EOS % 0 % (0-3); LYMPH # 0.4 x10^3/uL (1.0-4.8); LYMPH % 26 % (24-48); MEAN CORPUSCULAR HEMOGLOBIN 33 pg (25-35); MEAN CORPUSCULAR HGB CONC 33 g/dL (31-37); MEAN CORPUSCULAR VOLUME 99 fL (79-100); MONO # 0.4 x10^3/uL (0.0-1.1); MONO % 27 % (0-9); NEUT # 0.6 x10^3/uL (1.8-7.7); NEUT % 46 % (31-73); PLATELET COUNT 111 x10^3/uL (140-400); RED BLOOD COUNT 2.06 x10^6/uL (3.50-5.40); RED CELL DISTRIBUTION WIDTH 18.7 % (11.5-14.5)
[2020-05-27 05:09] LABS: HEMATOCRIT 20.4 % (36.0-47.0); HEMOGLOBIN 6.7 g/dL (12.0-15.5); WHITE BLOOD COUNT 1.4 x10^3/uL (4.0-11.0)
[2020-05-27 05:31] LABS: ALBUMIN 2.7 g/dL (3.4-5.0); ALBUMIN/GLOBULIN RATIO 0.6 (1.0-1.7); CALCIUM 8.9 mg/dL (8.5-10.1); CREATININE 4.3 mg/dL (0.6-1.0); GFR 12.5; POTASSIUM 4.2 mmol/L (3.5-5.1); TOTAL BILIRUBIN 0.5 mg/dL (0.2-1.0); TOTAL PROTEIN 7.4 g/dL (6.4-8.2)
[2020-05-27] MEDS: traMADol 50 MG TABLET PO PRN ×3 (09:14→21:28)
--- NOTE | 2020-05-27 11:26 | PDOC2 ---
CONSULT Date of Consult Date of Consult DATE: 05/27/20 TIME: 11:21 Reason for Consult Reason for Consult: ESRD Referring Physician Referring Physician: VERA Identification/Chief Complaint Chief Complaint BODY ACHES Source Source: Chart review, Patient History of Present Illness Reason for Visit: THIS IS A 65 YR OLD WITH ESRD AND ON OP HD TTS. HAS KNOWN COVID 09 POS TEST AND HAD BEEN IN A COHORTED HD UNIT. ADMITTED WITH WEAKNESS AND BODY ACHES. SOME SOB. IMAGING POS FOR PATCHY INFILTRATES CONCERNING FOR PNEUMONIA. LABS ARE C/W ESRD. ALSO NOTED TO HAVE PANCYTOPENIA. DENIED ANY FEVERS. HAS HGB OF 6.7 AND A HX OF CHRONIC GI BLEED WELL. ESRD IS DUE TO HTN Past Medical History Cardiovascular: HTN, Hyperlipidemia Pulmonary: No pertinent hx GI: Constipation, GERD, GI bleed, Peptic Ulcer disease, Other Heme/Onc: Anemia NOS Hepatobiliary: Cirrhosis, Hep A/B/C, Other Psych: Addictions Rheumatologic: Rheumatoid arthritis Infectious disease: No pertinent hx Renal/: Chronic renal failure, Hematuria Endocrine: Diabetes, Hyperparathyroidism Past Surgical History Past Surgical History: Cholecystectomy, Tonsillectomy, Hysterectomy, Other Family History Family History: Alcohol Abuse, Cancer, High Cholestrol, Hypertension, Family History Unknown Social History ALCOHOL: heavy Drugs: None Domestic Violence: Neg Current Problem List Problem List Problems Medical Problems: (1) Coronavirus infection Status: Acute (2) ESRD (end stage renal disease) on dialysis Status: Chronic Current Medications Current Medications Current Medications Morphine Sulfate (Morphine Sulfate) 5 mg 1X ONCE IV Last administered on 05/26/20at 19:07; Start 05/26/20 at 18:45; Stop 05/26/20 at 18:46; Status DC Carvedilol (Coreg) 6.25 mg 1X ONCE PO Last administered on 05/26/20at 20:54; Start 05/26/20 at 20:30; Stop 05/26/20 at 20:31; Status DC Ondansetron HCl (Zofran) 4 mg STK-MED ONCE .ROUTE ; Start 05/26/20 at 20:56; Stop 05/26/20 at 20:56; Status DC Acetaminophen (Tylenol) 650 mg PRN Q6HRS PRN PO FEVER > 100.3'F; Start 05/27/20 at 01:15 Tramadol HCl (Ultram) 50 mg PRN Q6HRS PRN PO MILD TO MODERATE PAIN Last administered on 05/27/20at 09:14; Start 05/27/20 at 08:45 Active Scripts Active [place] 5-325 Tablet (Acetaminophen/Hydrocodone Bitart) 1 Each Tablet 1 Tab PO PRN Q6HRS PRN Feosol (Ferrous Sulfate) 325 Mg Tablet 325 Mg PO BIDWMEALS 60 Days Proair Hfa (Albuterol Sulfate) 8.5 Gm Hfa.aer.ad 2.5 Mg NEB PRN Q2HRS PRN 30 Days Pantoprazole Sodium (Pantoprazole Sodium) 40 Mg Tablet.dr 40 Mg PO DAILYAC 30 Days Reported Carvedilol 25 Mg Tablet 25 Mg PO BIDWMEALS Folic Acid 0.4 Mg Tablet 0.4 Mg PO DAILY Acetaminophen 500 Mg Tablet 1 Tab PO PRN Q6HRS PRN 15 Days Allergies Allergies: Coded Allergies: No Known Drug Allergies (Unverified , 05/11/20) ROS General: YES: Chills, Fatigue PSYCHOLOGICAL ROS: YES: Anxiety Eyes: Yes Decreased vision ALLERGY AND IMMUNOLOGY: YES: Seasonal Allergies Respiratory: YES: Cough, Shortness of breath Gastrointestinal: Yes Nausea, Yes Constipation Genitourinary: YES Other (ANURIA) Neurological: Yes Weakness Skin: Yes Dry Skin Physical Exam General: Alert, Oriented X3, Cooperative, No acute distress HEENT: Atraumatic, PERRLA Lungs: Other (DECREAED AT BASES) Heart: Regular rate Abdomen: Normal bowel sounds, Soft, No tenderness Extremities: No clubbing Skin: No breakdown Neuro: Normal speech Psych/Mental Status: Mental status NL, Mood NL MUSCULOSKELETAL: No joint tenderness, No deformity, No swelling Vitals VITALS Vital Signs Date Time Temp Pulse Resp B/P (MAP) Pulse Ox O2 Delivery O2 Flow Rate FiO2 05/27/20 11:00 83 21 146/65 (92) 94 Room Air 05/27/20 11:00 98.4 98.4 05/27/20 09:14 1.0 Labs Labs Laboratory Tests Test 05/26/20 18:20 05/27/20 04:30 05/27/20 04:50 White Blood Count 1.3 x10^3/uL (4.0-11.0) 1.4 x10^3/uL (4.0-11.0) Red Blood Count 2.08 x10^6/uL (3.50-5.40) 2.06 x10^6/uL (3.50-5.40) Hemoglobin 6.8 g/dL (12.0-15.5) 6.7 g/dL (12.0-15.5) Hematocrit 20.7 % (36.0-47.0) 20.4 % (36.0-47.0) Mean Corpuscular Volume 99 fL (79-100) 99 fL (79-100) Mean Corpuscular Hemoglobin 33 pg (25-35) 33 pg (25-35) Mean Corpuscular Hemoglobin Concent 33 g/dL (31-37) 33 g/dL (31-37) Red Cell Distribution Width 18.7 % (11.5-14.5) 18.7 % (11.5-14.5) Platelet Count 109 x10^3/uL (140-400) 111 x10^3/uL (140-400) Neutrophils (%) (Auto) 62 % (31-73) 46 % (31-73) Lymphocytes (%) (Auto) 16 % (24-48) 26 % (24-48) Monocytes (%) (Auto) 21 % (0-9) 27 % (0-9) Eosinophils (%) (Auto) 0 % (0-3) 0 % (0-3) Basophils (%) (Auto) 1 % (0-3) 1 % (0-3) Neutrophils # (Auto) 0.8 x10^3/uL (1.8-7.7) 0.6 x10^3/uL (1.8-7.7) Lymphocytes # (Auto) 0.2 x10^3/uL (1.0-4.8) 0.4 x10^3/uL (1.0-4.8) Monocytes # (Auto) 0.3 x10^3/uL (0.0-1.1) 0.4 x10^3/uL (0.0-1.1) Eosinophils # (Auto) 0.0 x10^3/uL (0.0-0.7) 0.0 x10^3/uL (0.0-0.7) Basophils # (Auto) 0.0 x10^3/uL (0.0-0.2) 0.0 x10^3/uL (0.0-0.2) Segmented Neutrophils % 70 % (35-66) Lymphocytes % 16 % (24-48) Monocytes % 14 % (0-10) Platelet Estimate Decreased (ADEQUATE) Large Platelets Few Poikilocytosis Slight Anisocytosis Slight Macrocytosis Slight Target Cells Occ Schistocytes Occ D-Dimer (Nikki) 2.88 ug/mlFEU (0.00-0.50) Sodium Level 133 mmol/L (136-145) 133 mmol/L (136-145) Potassium Level 4.0 mmol/L (3.5-5.1) 4.2 mmol/L (3.5-5.1) Chloride Level 93 mmol/L (98-107) 96 mmol/L (98-107) Carbon Dioxide Level 32 mmol/L (21-32) 30 mmol/L (21-32) Anion Gap 8 (6-14) 7 (6-14) Blood Urea Nitrogen 21 mg/dL (7-20) 23 mg/dL (7-20) Creatinine 3.8 mg/dL (0.6-1.0) 4.3 mg/dL (0.6-1.0) Estimated GFR (Cockcroft-Gault) 14.4 12.5 BUN/Creatinine Ratio 6 (6-20) 5 (6-20) Glucose Level 134 mg/dL (70-99) 101 mg/dL (70-99) Calcium Level 9.0 mg/dL (8.5-10.1) 8.9 mg/dL (8.5-10.1) Total Bilirubin 0.6 mg/dL (0.2-1.0) 0.5 mg/dL (0.2-1.0) Aspartate Amino Transf (AST/SGOT) 30 U/L (15-37) 25 U/L (15-37) Alanine Aminotransferase (ALT/SGPT) 7 U/L (14-59) 7 U/L (14-59) Alkaline Phosphatase 117 U/L (46-116) 97 U/L (46-116) Lactate Dehydrogenase 231 U/L (81-234) Creatine Kinase 73 U/L (26-192) Troponin I Quantitative 0.020 ng/mL (0.000-0.055) C-Reactive Protein, Quantitative 30.7 mg/L (0-3.3) XS-[id number]-G-Type Natriuretic Peptide > 47653 pg/mL (0-124) Total Protein 8.2 g/dL (6.4-8.2) 7.4 g/dL (6.4-8.2) Albumin 3.1 g/dL (3.4-5.0) 2.7 g/dL (3.4-5.0) Albumin/Globulin Ratio 0.6 (1.0-1.7) 0.6 (1.0-1.7) Laboratory Tests Test 05/26/20 18:20 05/27/20 04:30 05/27/20 04:50 White Blood Count 1.3 x10^3/uL (4.0-11.0) 1.4 x10^3/uL (4.0-11.0) Red Blood Count 2.08 x10^6/uL (3.50-5.40) 2.06 x10^6/uL (3.50-5.40) Hemoglobin 6.8 g/dL (12.0-15.5) 6.7 g/dL (12.0-15.5) Hematocrit 20.7 % (36.0-47.0) 20.4 % (36.0-47.0) Mean Corpuscular Volume 99 fL (79-100) 99 fL (79-100) Mean Corpuscular Hemoglobin 33 pg (25-35) 33 pg (25-35) Mean Corpuscular Hemoglobin Concent 33 g/dL (31-37) 33 g/dL (31-37) Red Cell Distribution Width 18.7 % (11.5-14.5) 18.7 % (11.5-14.5) Platelet Count 109 x10^3/uL (140-400) 111 x10^3/uL (140-400) Neutrophils (%) (Auto) 62 % (31-73) 46 % (31-73) Lymphocytes (%) (Auto) 16 % (24-48) 26 % (24-48) Monocytes (%) (Auto) 21 % (0-9) 27 % (0-9) Eosinophils (%) (Auto) 0 % (0-3) 0 % (0-3) Basophils (%) (Auto) 1 % (0-3) 1 % (0-3) Neutrophils # (Auto) 0.8 x10^3/uL (1.8-7.7) 0.6 x10^3/uL (1.8-7.7) Lymphocytes # (Auto) 0.2 x10^3/uL (1.0-4.8) 0.4 x10^3/uL (1.0-4.8) Monocytes # (Auto) 0.3 x10^3/uL (0.0-1.1) 0.4 x10^3/uL (0.0-1.1) Eosinophils # (Auto) 0.0 x10^3/uL (0.0-0.7) 0.0 x10^3/uL (0.0-0.7) Basophils # (Auto) 0.0 x10^3/uL (0.0-0.2) 0.0 x10^3/uL (0.0-0.2) Segmented Neutrophils % 70 % (35-66) Lymphocytes % 16 % (24-48) Monocytes % 14 % (0-10) Platelet Estimate Decreased (ADEQUATE) Large Platelets Few Poikilocytosis Slight Anisocytosis Slight Macrocytosis Slight Target Cells Occ Schistocytes Occ D-Dimer (Nikki) 2.88 ug/mlFEU (0.00-0.50) Sodium Level 133 mmol/L (136-145) 133 mmol/L (136-145) Potassium Level 4.0 mmol/L (3.5-5.1) 4.2 mmol/L (3.5-5.1) Chloride Level 93 mmol/L (98-107) 96 mmol/L (98-107) Carbon Dioxide Level 32 mmol/L (21-32) 30 mmol/L (21-32) Anion Gap 8 (6-14) 7 (6-14) Blood Urea Nitrogen 21 mg/dL (7-20) 23 mg/dL (7-20) Creatinine 3.8 mg/dL (0.6-1.0) 4.3 mg/dL (0.6-1.0) Estimated GFR (Cockcroft-Gault) 14.4 12.5 BUN/Creatinine Ratio 6 (6-20) 5 (6-20) Glucose Level 134 mg/dL (70-99) 101 mg/dL (70-99) Calcium Level 9.0 mg/dL (8.5-10.1) 8.9 mg/dL (8.5-10.1) Total Bilirubin 0.6 mg/dL (0.2-1.0) 0.5 mg/dL (0.2-1.0) Aspartate Amino Transf (AST/SGOT) 30 U/L (15-37) 25 U/L (15-37) Alanine Aminotransferase (ALT/SGPT) 7 U/L (14-59) 7 U/L (14-59) Alkaline Phosphatase 117 U/L (46-116) 97 U/L (46-116) Lactate Dehydrogenase 231 U/L (81-234) Creatine Kinase 73 U/L (26-192) Troponin I Quantitative 0.020 ng/mL (0.000-0.055) C-Reactive Protein, Quantitative 30.7 mg/L (0-3.3) ME-Rqb-J-Type Natriuretic Peptide > 83829 pg/mL (0-124) Total Protein 8.2 g/dL (6.4-8.2) 7.4 g/dL (6.4-8.2) Albumin 3.1 g/dL (3.4-5.0) 2.7 g/dL (3.4-5.0) Albumin/Globulin Ratio 0.6 (1.0-1.7) 0.6 (1.0-1.7) Assessment/Plan Assessment/Plan IMP ESRD-TTS ANEMIA CHRONIC GI BLEED PANCYTOPENIA COVID 19 POS PROB PNEUMONIA PLAN ID EVAL AND TX CONSIDER HEME/ONC EVAL START OSMIN CONSIDER GI EVAL HD TOMORROW LINNEA SHULTZ MD May 27, 2020 11:26
[2020-05-27] MEDS ORDERED: PIP/TAZO PER PHARMACY MC PRN (12:00)
--- NOTE | 2020-05-27 13:19 | PDOC ---
Infectious Disease Note Vital Sign Vital Signs Vital Signs Date Time Temp Pulse Resp B/P (MAP) Pulse Ox O2 Delivery O2 Flow Rate FiO2 05/27/20 11:00 83 21 146/65 (92) 94 Room Air 05/27/20 11:00 98.4 98.4 05/27/20 09:14 1.0 Labs Lab Laboratory Tests Test 05/26/20 18:20 05/27/20 04:30 05/27/20 04:50 White Blood Count 1.3 x10^3/uL (4.0-11.0) 1.4 x10^3/uL (4.0-11.0) Red Blood Count 2.08 x10^6/uL (3.50-5.40) 2.06 x10^6/uL (3.50-5.40) Hemoglobin 6.8 g/dL (12.0-15.5) 6.7 g/dL (12.0-15.5) Hematocrit 20.7 % (36.0-47.0) 20.4 % (36.0-47.0) Mean Corpuscular Volume 99 fL (79-100) 99 fL (79-100) Mean Corpuscular Hemoglobin 33 pg (25-35) 33 pg (25-35) Mean Corpuscular Hemoglobin Concent 33 g/dL (31-37) 33 g/dL (31-37) Red Cell Distribution Width 18.7 % (11.5-14.5) 18.7 % (11.5-14.5) Platelet Count 109 x10^3/uL (140-400) 111 x10^3/uL (140-400) Neutrophils (%) (Auto) 62 % (31-73) 46 % (31-73) Lymphocytes (%) (Auto) 16 % (24-48) 26 % (24-48) Monocytes (%) (Auto) 21 % (0-9) 27 % (0-9) Eosinophils (%) (Auto) 0 % (0-3) 0 % (0-3) Basophils (%) (Auto) 1 % (0-3) 1 % (0-3) Neutrophils # (Auto) 0.8 x10^3/uL (1.8-7.7) 0.6 x10^3/uL (1.8-7.7) Lymphocytes # (Auto) 0.2 x10^3/uL (1.0-4.8) 0.4 x10^3/uL (1.0-4.8) Monocytes # (Auto) 0.3 x10^3/uL (0.0-1.1) 0.4 x10^3/uL (0.0-1.1) Eosinophils # (Auto) 0.0 x10^3/uL (0.0-0.7) 0.0 x10^3/uL (0.0-0.7) Basophils # (Auto) 0.0 x10^3/uL (0.0-0.2) 0.0 x10^3/uL (0.0-0.2) Segmented Neutrophils % 70 % (35-66) Lymphocytes % 16 % (24-48) Monocytes % 14 % (0-10) Platelet Estimate Decreased (ADEQUATE) Large Platelets Few Poikilocytosis Slight Anisocytosis Slight Macrocytosis Slight Target Cells Occ Schistocytes Occ D-Dimer (Nikki) 2.88 ug/mlFEU (0.00-0.50) Sodium Level 133 mmol/L (136-145) 133 mmol/L (136-145) Potassium Level 4.0 mmol/L (3.5-5.1) 4.2 mmol/L (3.5-5.1) Chloride Level 93 mmol/L (98-107) 96 mmol/L (98-107) Carbon Dioxide Level 32 mmol/L (21-32) 30 mmol/L (21-32) Anion Gap 8 (6-14) 7 (6-14) Blood Urea Nitrogen 21 mg/dL (7-20) 23 mg/dL (7-20) Creatinine 3.8 mg/dL (0.6-1.0) 4.3 mg/dL (0.6-1.0) Estimated GFR (Cockcroft-Gault) 14.4 12.5 BUN/Creatinine Ratio 6 (6-20) 5 (6-20) Glucose Level 134 mg/dL (70-99) 101 mg/dL (70-99) Calcium Level 9.0 mg/dL (8.5-10.1) 8.9 mg/dL (8.5-10.1) Total Bilirubin 0.6 mg/dL (0.2-1.0) 0.5 mg/dL (0.2-1.0) Aspartate Amino Transf (AST/SGOT) 30 U/L (15-37) 25 U/L (15-37) Alanine Aminotransferase (ALT/SGPT) 7 U/L (14-59) 7 U/L (14-59) Alkaline Phosphatase 117 U/L (46-116) 97 U/L (46-116) Lactate Dehydrogenase 231 U/L (81-234) Creatine Kinase 73 U/L (26-192) Troponin I Quantitative 0.020 ng/mL (0.000-0.055) C-Reactive Protein, Quantitative 30.7 mg/L (0-3.3) OZ-Piu-Q-Type Natriuretic Peptide > 89931 pg/mL (0-124) Total Protein 8.2 g/dL (6.4-8.2) 7.4 g/dL (6.4-8.2) Albumin 3.1 g/dL (3.4-5.0) 2.7 g/dL (3.4-5.0) Albumin/Globulin Ratio 0.6 (1.0-1.7) 0.6 (1.0-1.7) Objective Assessment Fever Pancytopenia - does have a h/o - just finished PRBCs Reported COVID + - on rm air CKD on HD HTN H/o anemia requiring transfusions - states w/u in progress Cirrhosis Plan Plan of Care S/p PRBCs and better Cont Zosyn F/u response F/u labs Anemia per primary If requires 02 may need pulm eval and/or steroids Thank you # [id number] BECKY METZGER MD May 27, 2020 13:19
[2020-05-27] MEDS: PIPERACILLIN/TAZOBACTAM 2.25 GM in IV NORMAL SALINE 50ML 50 ML IV SCH ×2 (13:46→21:27)
[2020-05-27] MEDS: ACETAMINOPHEN 325 MG TABLET. PO PRN ×2 (13:46→19:32)
--- NOTE | 2020-05-27 13:53 | HP ---
ADMIT DATE: 05/27/2020 CHIEF COMPLAINT: Fever. HISTORY OF PRESENT ILLNESS: The patient is a pleasant 65-year-old female well known to my service. She is on dialysis and has multiple medical issues. Over the past couple of months, I have admitted her several times today she presented with fever. She tested positive for COVID week ago apparently many people in her family have it as well. When she went to dialysis yesterday, she was feeling achy and felt worse with dialysis. I discussed the case with ER physician. We are concerned that she might be having worsening COVID symptoms. We are going to admit the patient and get her dialyzed and consult Infectious Disease as well. PAST MEDICAL HISTORY: End-stage renal disease, on dialysis; anemia, diabetes, hypotension, kidney stones, pancreatitis, pneumonia, C. diff, cirrhosis, cholecystectomy, dialysis shunt, chronic pancytopenia. ALLERGIES: None. FAMILY HISTORY: Diabetes. SOCIAL HISTORY: She does not drink, smoke or take drugs. MEDICATIONS: Reviewed, please refer to the MRAD. REVIEW OF SYSTEMS: GENERAL: She complains of fevers. SKIN: No bruising, hair changes or rashes. EYES: No blurred, double or loss of vision. NOSE AND THROAT: No history of nosebleeds, hoarseness or sore throat. HEART: No history of palpitations, chest pain or shortness of breath on exertion. LUNGS: Denies cough, hemoptysis, wheezing or shortness of breath. GASTROINTESTINAL: Denies changes in appetite, nausea, vomiting, diarrhea or constipation. GENITOURINARY: No history of frequency, urgency, hesitancy or nocturia. NEUROLOGIC: Denies history of numbness, tingling, tremor or weakness. PSYCHIATRIC: No history of panic, anxiety or depression. ENDOCRINE: No history of heat or cold intolerance, polyuria or polydipsia. EXTREMITIES: Denies muscle weakness, joint pain, pain on walking or stiffness. PHYSICAL EXAMINATION: VITALS: Within normal limits and are stable. GENERAL: No apparent distress. Alert and oriented. HEENT: Normal cephalic atraumatic, external auditory canals are patent EYES: Extraocular muscles are intact, pupils are equally round and reactive to light and accommodation MUSCULOSKELETAL: Well developed, well nourished, good range of motion ENDOCRINE: No thyromegaly was palpated LYMPHATICS: No cervical chain or axillary nodes were noted HEMATOPOIETIC: No bruising NECK: Supple, no JVD, no thyromegaly was noted. LUNGS: Clear to auscultation in all lung chaudhry without rhonchi or wheezing. HEART: RRR, S1, S2 present. Peripheral pulses intact, no obvious murmurs were noted. ABDOMEN: Soft, nontender. Positive bowel sounds no organomegaly, normal bowel sounds. EXTREMITIES: Without any cyanosis, clubbing, or edema. Pedal pulses intact, Homans sign is negative. NEUROLOGIC: Normal speech, normal tone. A & O x3, moves all extremities, no obvious focal deficits. PSYCHIATRIC: Normal affect, normal mood. Stable. SKIN: No ulcerations or rashes, good skin turgor, no jaundice. VASCULAR: Good capillary refill, neurovascular bundle appears to be intact. LABORATORY DATA: White count 1.4, hemoglobin 6.7, platelets 111. Electrolytes: Sodium 133, potassium 4.2, chloride 96, bicarbonate 30, BUN 23, creatinine 4.3, glucose 101. D-dimer is high at 2.88. Chest x-ray shows patchy bilateral airspace disease may represent infectious or inflammatory process could be seen with atypical viral pneumonia. ASSESSMENT AND PLAN: Fevers and abnormal chest x-ray in a middle-aged female who has multiple comorbidities and who actually was tested positive for COVID within the past week or so. I will admit her to the COVID unit. Respiratory isolation. Consult ID. Consult Nephrology. IV antibiotics, breathing treatments, oxygen, consider steroids and remdesivir and plasma, but we will await Infectious Disease input. Trend labs. LONG-TERM PROGNOSIS: Guarded. VIKAS GAMEZ DO DR: CAMMIE/danial JOB#: [id number] / [id number]
--- NOTE | 2020-05-27 16:20 | CONS ---
DATE OF CONSULTATION: 05/27/2020 INFECTIOUS DISEASE CONSULTATION NOTE LOCATION: The patient is in room #669. REQUESTING PHYSICIAN: Dr. Mercado. REASON FOR CONSULTATION: COVID positive pancytopenia. HISTORY OF PRESENT ILLNESS: The patient is a 65-year-old female with a history of chronic kidney disease, on hemodialysis; also has complications with cirrhosis and anemia; states she is in the process of having this figured out. She states she finished dialysis yesterday, then had an acute onset of generalized aches and fatigue, states she had a fever, also had developed a headache. She presented to [facility], was found to have a temperature of 99.9 with a blood pressure of 195/84, but did increase up to the 200s systolic. Additionally, she was pancytopenic with a white count of 1.3. She had mild elevation of alkaline phosphatase and her NT-pro was greater than 35,000. She was admitted to the hospital. She has now received packed red blood cells and is feeling better; still has mild headache, but this is improving. She has no nausea. Aches are improved. Appetite is better. She has not lost any sense of taste or smell and she did have a loose stool that resolved as well. PAST MEDICAL HISTORY: Positive for hypertension, hyperlipidemia, obesity, constipation, gastroesophageal reflux disease, gastrointestinal bleed, peptic ulcers, anemia, cirrhosis, hepatitis, rheumatoid arthritis, chronic renal failure, hematuria, diabetes, hyperparathyroidism, and history of urinary tract infections. PAST SURGICAL HISTORY: Positive for left upper extremity arteriovenous shunt, cholecystectomy, tonsillectomy, and hysterectomy. REVIEW OF SYSTEMS: Otherwise negative. ALLERGIES: No known drug allergies. SOCIAL HISTORY: Has a history of heavy alcohol abuse in the past. FAMILY HISTORY: Positive for alcohol abuse, cancer, hypercholesterolemia, and hypertension. CURRENT MEDICATIONS: Include Zosyn 2.25 intravenous every 8 hours, Coreg, darbepoetin, and Ultram. PHYSICAL EXAMINATION: VITAL SIGNS: Temperature is 98.4, pulse 83, respiration is 20, blood pressure 146/65, and satting 94% on room air. CONSTITUTIONAL: She is sitting upright in bed. She is cooperative. She is pleasant. She is in no acute distress. HEENT: She has normal pupils, muddy sclera. Oral cavity: Oropharynx was clear. NECK: Supple, no JVD. LUNGS: Decreased in the bases. No wheeze. HEART: S1 and S2. ABDOMEN: Obese, soft, nontender; no guarding. EXTREMITIES: Without clubbing or cyanosis. No gross edema. She has a left arteriovenous fistula without signs of complications. SKIN: Without signs of generalized rash. NEUROLOGIC: She is nonfocal, moving all extremities. PSYCHIATRIC: Affect was pleasant. LABORATORY DATA: Today, white count of 1.4, hemoglobin 6.7, platelets of 111, neutrophils were 46, lymphs were 26; creatinine 4.3, glucose 101; normal liver function study. IMAGING: Chest x-ray: Patchy bilateral airspace disease, represents infectious or inflammatory process, can be seen with atypical or viral pneumonia. IMPRESSION: 1. Fever. 2. Pancytopenia and just finished packed red blood cells. 3. Reported COVID positive; currently on room air. 4. Chronic kidney disease, on hemodialysis. 5. Hypertension. 6. History of anemia requiring transfusion; states her workup is in process. 7. Cirrhosis. RECOMMENDATIONS: Clinically, she is improving status post packed red blood cells. For now, I will continue Zosyn; follow up response; follow up labs; anemia per primary; if she requires oxygen, may need Pulmonary evaluation and/or steroids. Thank you for allowing me to participate in the patient's care. Should you have further questions, please do not hesitate to contact me. BECKY METZGER MD DR: MISHA/danial JOB#: [id number] / [id number] [place]
--- NOTE | 2020-05-27 16:47 | NUR ---
SW following. Spoke with RN and reviewed chart. SW familiar with this pt from previous admissions. Pt lives at home alone with [facility] through the [facility]. Pt goes to dialysis on Saturday, , Saturday at [facility], ; fax [phone]. Pt on room air. Pt on IV Zosyn. Pt COVID pending. SW to follow.
[2020-05-27] MEDS: ONDANSETRON PF 4 MG/2 ML VIAL. IVP PRN (20:07)
[2020-05-27] MEDS: HEPARIN for SUB-Q USE 5,000 UNIT/ML VIAL. SQ SCH (20:08)
[2020-05-27] MEDS ORDERED: DARBEPOETIN ALFA 60 MCG/0.3 ML DISP.SYRIN. SQ SCH (21:00)
[2020-05-28] MEDS: ZOLPIDEM 5 MG TABLET. PO PRN ×2 (00:22→22:42)
[2020-05-28] MEDS: ONDANSETRON PF 4 MG/2 ML VIAL. IVP PRN ×2 (00:27→09:47)
[2020-05-28 03:30] VITALS: BP 186/95
[2020-05-28] MEDS: traMADol 50 MG TABLET PO PRN ×4 (03:50→23:04)
[2020-05-28] MEDS: LABETALOL 20 MG/4 ML DISP.SYRIN. IVP PRN ×2 (03:51→09:50)
[2020-05-28 05:00] VITALS: BP 173/82
--- NOTE | 2020-05-28 07:49 | PDOC ---
Infectious Disease Note Subjective Subjective some nausea this am and tired Breathing ok Constipated Vital Sign Vital Signs Vital Signs Date Time Temp Pulse Resp B/P (MAP) Pulse Ox O2 Delivery O2 Flow Rate FiO2 05/28/20 05:00 173/82 (112) 05/28/20 04:50 Room Air 05/28/20 03:51 88 05/28/20 03:21 98.8 18 90 98.8 05/27/20 09:14 1.0 Physical Exam PHYSICAL EXAM CONSTITUTIONAL: She is sitting upright in bed. She is cooperative. She is pleasant. She is in no acute distress. HEENT: She has normal pupils, muddy sclera. Oral cavity: Oropharynx was clear. NECK: Supple, no JVD. LUNGS: Decreased in the bases. No wheeze. HEART: S1 and S2. ABDOMEN: Obese, soft, nontender; no guarding. EXTREMITIES: Without clubbing or cyanosis. No gross edema. She has a left arteriovenous fistula without signs of complications. SKIN: Without signs of generalized rash. NEUROLOGIC: She is nonfocal, moving all extremities. PSYCHIATRIC: Affect was pleasant. Objective Assessment Fever - better Pancytopenia - does have a h/o - just finished PRBCs Reported COVID + - on rm air still CKD on HD HTN H/o anemia requiring transfusions - states w/u in progress Cirrhosis Plan Plan of Care S/p PRBCs 05/27 Nausea per primary - d/w nursing Cont Zosyn F/u response F/u labs Anemia per primary If requires 02 may need pulm eval and/or steroids BECKY METZGER MD May 28, 2020 07:49
[2020-05-28 08:00] VITALS: BP 211/93
[2020-05-28 09:43] LABS: CALCIUM 9.4 mg/dL (8.5-10.1); CREATININE 5.7 mg/dL (0.6-1.0); POTASSIUM 4.5 mmol/L (3.5-5.1)
[2020-05-28] MEDS: PIPERACILLIN/TAZOBACTAM 2.25 GM in IV NORMAL SALINE 50ML 50 ML IV SCH ×3 (09:45→22:42)
[2020-05-28] MEDS: CARVEDILOL 12.5 MG TABLET. PO SCH ×2 (09:47→18:55)
[2020-05-28 09:48] LABS: BASO % 1 % (0-3); EOS % 0 % (0-3); HEMATOCRIT 26.1 % (36.0-47.0); HEMOGLOBIN 8.7 g/dL (12.0-15.5); LYMPH # 0.3 x10^3/uL (1.0-4.8); LYMPH % 15 % (24-48); MEAN CORPUSCULAR HEMOGLOBIN 32 pg (25-35); MEAN CORPUSCULAR HGB CONC 33 g/dL (31-37); MEAN CORPUSCULAR VOLUME 97 fL (79-100); MONO # 0.4 x10^3/uL (0.0-1.1); MONO % 19 % (0-9); NEUT # 1.4 x10^3/uL (1.8-7.7); NEUT % 65 % (31-73); PLATELET COUNT 159 x10^3/uL (140-400); RED BLOOD COUNT 2.69 x10^6/uL (3.50-5.40); RED CELL DISTRIBUTION WIDTH 20.2 % (11.5-14.5); WHITE BLOOD COUNT 2.1 x10^3/uL (4.0-11.0)
[2020-05-28] MEDS: HEPARIN for SUB-Q USE 5,000 UNIT/ML VIAL. SQ SCH ×2 (09:48→23:01)
[2020-05-28] MEDS: diphenhydrAMINE HCL 25 MG CAPSULE PO PRN (10:53)
[2020-05-28 11:15] VITALS: BP 167/78
--- NOTE | 2020-05-28 11:29 | PDOC ---
[employer] PROGRESS NOTE Chief Complaint Chief Complaint COVID-19 pneumonia CDK, on dialysis Pancytopenia Cirrhosis History of Present Illness History of Present Illness 05/28/2020 Patient seen and examined Complains of abdominal pain Discussed with RN Chart reviewed Vitals/I&O Vitals/I&O: Vital Signs Date Time Temp Pulse Resp B/P (MAP) Pulse Ox O2 Delivery O2 Flow Rate FiO2 05/28/20 11:00 94 Room Air 05/28/20 09:50 84 211/93 05/28/20 09:46 20 05/28/20 08:00 95.3 95.3 05/27/20 09:14 1.0 I & O 05/27/20 05/27/20 05/28/20 15:00 23:00 07:00 Intake Total 940 ml 50 ml 220 ml Balance 940 ml 50 ml 220 ml Physical Exam Physical Exam: CONSTITUTIONAL: She is sitting upright in bed. She is cooperative. She is pleasant. She is in no acute distress. HEENT: She has normal pupils, muddy sclera. Oral cavity: Oropharynx was clear. NECK: Supple, no JVD. LUNGS: Decreased in the bases. No wheeze. HEART: S1 and S2. ABDOMEN: Obese, soft, nontender; no guarding. EXTREMITIES: Without clubbing or cyanosis. No gross edema. She has a left arteriovenous fistula without signs of complications. SKIN: Without signs of generalized rash. NEUROLOGIC: She is nonfocal, moving all extremities. PSYCHIATRIC: Affect was pleasant. General: Alert, Oriented X3, Cooperative, No acute distress Heart: Regular rate Lungs: Clear, Wheezing Abdomen: Normal bowel sounds, Soft, No tenderness Extremities: No clubbing Skin: No breakdown Labs Labs: Laboratory Tests Test 05/28/20 09:12 White Blood Count 2.1 x10^3/uL (4.0-11.0) Red Blood Count 2.69 x10^6/uL (3.50-5.40) Hemoglobin 8.7 g/dL (12.0-15.5) Hematocrit 26.1 % (36.0-47.0) Mean Corpuscular Volume 97 fL (79-100) Mean Corpuscular Hemoglobin 32 pg (25-35) Mean Corpuscular Hemoglobin Concent 33 g/dL (31-37) Red Cell Distribution Width 20.2 % (11.5-14.5) Platelet Count 159 x10^3/uL (140-400) Neutrophils (%) (Auto) 65 % (31-73) Lymphocytes (%) (Auto) 15 % (24-48) Monocytes (%) (Auto) 19 % (0-9) Eosinophils (%) (Auto) 0 % (0-3) Basophils (%) (Auto) 1 % (0-3) Neutrophils # (Auto) 1.4 x10^3/uL (1.8-7.7) Lymphocytes # (Auto) 0.3 x10^3/uL (1.0-4.8) Monocytes # (Auto) 0.4 x10^3/uL (0.0-1.1) Eosinophils # (Auto) 0.0 x10^3/uL (0.0-0.7) Basophils # (Auto) 0.0 x10^3/uL (0.0-0.2) Sodium Level 130 mmol/L (136-145) Potassium Level 4.5 mmol/L (3.5-5.1) Chloride Level 94 mmol/L (98-107) Carbon Dioxide Level 27 mmol/L (21-32) Anion Gap 9 (6-14) Blood Urea Nitrogen 34 mg/dL (7-20) Creatinine 5.7 mg/dL (0.6-1.0) Estimated GFR (Cockcroft-Gault) 9.0 Glucose Level 141 mg/dL (70-99) Calcium Level 9.4 mg/dL (8.5-10.1) Review of Systems Review of Systems: General: endorses fatigue. Gastointestinal: endorses abdominal pain. Assessment and Plan Assessmemt and Plan Problems Medical Problems: (1) Coronavirus infection Status: Acute (2) ESRD (end stage renal disease) on dialysis Status: Chronic ASSESSMENT COVID-19 pneumonia CDK, on dialysis Pancytopenia Cirrhosis PLAN Respiratory isolation Continue current care Trend labs PRN pain medication, Lortab 5mg q4hrs PRN Benadryl Appreciate subspecialist input HD MWF Full code DVT Discharge disposition pending Comment Review of Relevant I have reviewed the following items tamika (where applicable) has been applied. Medications: Current Medications Medications (Trade) Dose Ordered Sig/Kimberly Route PRN Reason Start Time Stop Time Status Last Admin Dose Admin Darbepoetin [place] (ARANESP for DIALYSIS PTS) 60 mcg WEEKLYHS SQ 05/27/20 21:00 05/27/20 20:07 Piperacillin Sod/ Tazobactam Sod 2.25 gm/Sodium Chloride 50 ml @ 100 mls/hr Q8HRS IV 05/27/20 13:00 05/28/20 09:45 Tramadol HCl (Ultram) 50 mg PRN Q4HRS PRN PO MILD TO MODERATE PAIN 05/27/20 18:15 05/28/20 09:46 Heparin Sodium (Porcine) (Heparin Sodium) 5,000 unit BID SQ 05/27/20 21:00 05/28/20 09:48 Ondansetron HCl (Zofran) 4 mg PRN Q6HRS PRN IVP NAUSEA/VOMITING 05/27/20 20:00 05/28/20 09:47 Zolpidem Tartrate (Ambien) 5 mg PRN QHS PRN PO INSOMNIA 05/28/20 00:30 05/28/20 00:22 Labetalol HCl (Normodyne Iv Push) 10 mg PRN Q2HR PRN IVP SBP>160 05/28/20 03:45 05/28/20 09:50 Carvedilol (Coreg) 25 mg BIDWMEALS PO 05/28/20 08:00 05/28/20 09:47 Diphenhydramine HCl (Benadryl) 50 mg PRN Q8HRS PRN PO ITCHING 05/28/20 10:45 05/28/20 10:53 Justicifation of Admission Dx: Justifications for Admission: Justification of Admission Dx: Yes Chronic Renal Failure: Hemodynamic Instability VIKAS GAMEZ III DO May 28, 2020 11:29
--- NOTE | 2020-05-28 12:23 | PDOC ---
Renal-Progress Notes Subjective Notes Notes NO NEW COMPLAINTS OTHER THAN NAUSEA History of Present Illness Hx of present illness STABLE Vitals Vitals Vital Signs Date Time Temp Pulse Resp B/P (MAP) Pulse Ox O2 Delivery O2 Flow Rate FiO2 05/28/20 11:15 97.7 73 18 167/78 (107) 94 Room Air 97.7 05/27/20 09:14 1.0 Weight Weight [ ] I.O. Intake and Output Intake and Output 05/28/20 07:00 Intake Total 1210 ml Balance 1210 ml Intake Oral 460 ml IV Total 50 ml Blood Product IV Normal Saline Flush 700 ml Labs Labs Laboratory Tests Test 05/28/20 09:12 White Blood Count 2.1 x10^3/uL (4.0-11.0) Red Blood Count 2.69 x10^6/uL (3.50-5.40) Hemoglobin 8.7 g/dL (12.0-15.5) Hematocrit 26.1 % (36.0-47.0) Mean Corpuscular Volume 97 fL (79-100) Mean Corpuscular Hemoglobin 32 pg (25-35) Mean Corpuscular Hemoglobin Concent 33 g/dL (31-37) Red Cell Distribution Width 20.2 % (11.5-14.5) Platelet Count 159 x10^3/uL (140-400) Neutrophils (%) (Auto) 65 % (31-73) Lymphocytes (%) (Auto) 15 % (24-48) Monocytes (%) (Auto) 19 % (0-9) Eosinophils (%) (Auto) 0 % (0-3) Basophils (%) (Auto) 1 % (0-3) Neutrophils # (Auto) 1.4 x10^3/uL (1.8-7.7) Lymphocytes # (Auto) 0.3 x10^3/uL (1.0-4.8) Monocytes # (Auto) 0.4 x10^3/uL (0.0-1.1) Eosinophils # (Auto) 0.0 x10^3/uL (0.0-0.7) Basophils # (Auto) 0.0 x10^3/uL (0.0-0.2) Sodium Level 130 mmol/L (136-145) Potassium Level 4.5 mmol/L (3.5-5.1) Chloride Level 94 mmol/L (98-107) Carbon Dioxide Level 27 mmol/L (21-32) Anion Gap 9 (6-14) Blood Urea Nitrogen 34 mg/dL (7-20) Creatinine 5.7 mg/dL (0.6-1.0) Estimated GFR (Cockcroft-Gault) 9.0 Glucose Level 141 mg/dL (70-99) Calcium Level 9.4 mg/dL (8.5-10.1) Review of Systems Constitutional: yes: no symptom reported Ears/Nose/Throat: Yes: no symptom reported Eyes: Yes: no symptom reported Pulmonary: Yes dyspnea Cardiovascular: Yes no symptom reported Gastrointestional: Yes: nausea Genitourinary: Yes: no symptom reported Musculoskeletal: Yes: no symptom reported Skin: Yes no symptom reported Psychiatric/Neurological: Yes: no symptom reported Endocrine: Yes: no symptom reported Hematologic/Lymphatic: Yes: no symptom reported Physical Exam General Appearance: no apparent distress, oriented Respiratory: decreased breath sounds Heart: S1S2 Abdomen: soft, bowel sounds present, no rebound, no guarding Genitourinary: bladder flat Extremities: pulses present Neurology: alert, oriented, Ext weakness Assessment Assessment IMP ESRD-TTS ANEMIA CHRONIC GI BLEED PANCYTOPENIA-BETTER COVID 19 POS PROB PNEUMONIA PLAN ID EVAL AND TX STARTED OSMIN HD TODAY UF TO LINNEA KOHLI MD May 28, 2020 12:23
[2020-05-28] MEDS ORDERED: IV NORMAL SALINE 1000ML BAG 1,000 ML IV PRN ×2 (14:11)
[2020-05-28] MEDS ORDERED: ACETAMINOPHEN 500 MG TABLET PO PRN (14:15)
[2020-05-28] MEDS ORDERED: ALBUMIN HUMAN 25% 200 ML IV PRN (14:15)
[2020-05-28] MEDS ORDERED: diphenhydrAMINE 50 MG/ML VIAL IV PRN ×2 (14:15)
[2020-05-28] MEDS ORDERED: DIALYSIS PATIENT. MC PRN ×2 (14:15)
--- NOTE | 2020-05-28 17:56 | NUR ---
pt left for dialysis at approx 1500.
--- NOTE | 2020-05-28 18:42 | NUR ---
pt returned to the unit at approx 184.
[2020-05-28] MEDS: HYDROcodone/APAP 5/325MG 1 TAB TABLET PO PRN (18:54)
[2020-05-28 19:00] VITALS: BP 172/81
[2020-05-28 23:00] VITALS: BP 145/65
[2020-05-29 03:10] VITALS: BP 124/59
[2020-05-29 04:28] LABS: BASO % 1 % (0-3); EOS % 1 % (0-3); HEMATOCRIT 23.4 % (36.0-47.0); HEMOGLOBIN 7.8 g/dL (12.0-15.5); LYMPH # 0.5 x10^3/uL (1.0-4.8); LYMPH % 23 % (24-48); MEAN CORPUSCULAR HEMOGLOBIN 32 pg (25-35); MEAN CORPUSCULAR HGB CONC 33 g/dL (31-37); MEAN CORPUSCULAR VOLUME 97 fL (79-100); MONO # 0.5 x10^3/uL (0.0-1.1); MONO % 26 % (0-9); NEUT % 49 % (31-73); PLATELET COUNT 133 x10^3/uL (140-400); RED BLOOD COUNT 2.41 x10^6/uL (3.50-5.40); RED CELL DISTRIBUTION WIDTH 19.8 % (11.5-14.5)
[2020-05-29 04:44] LABS: GFR 13.6; POTASSIUM 4.1 mmol/L (3.5-5.1)
--- NOTE | 2020-05-29 06:35 | PDOC ---
Infectious Disease Note Subjective Subjective Better this am and back to baseline Some appetite No SOA Constipated ROS ROS o/w neg Vital Sign Vital Signs Vital Signs Date Time Temp Pulse Resp B/P (MAP) Pulse Ox O2 Delivery O2 Flow Rate FiO2 05/29/20 03:10 96.4 68 18 124/59 (80) 91 Room Air 96.4 05/28/20 17:20 1.0 Physical Exam PHYSICAL EXAM CONSTITUTIONAL: She is sitting in bed. She is cooperative. She is pleasant. She is in no acute distress. Looks better HEENT: She has normal pupils, muddy sclera. Oral cavity: Oropharynx was clear. NECK: Supple, no JVD. LUNGS: Decreased in the bases. No wheeze. on Rm air HEART: S1 and S2. ABDOMEN: Obese, soft, nontender; no guarding. EXTREMITIES: Without clubbing or cyanosis. No gross edema. She has a left arteriovenous fistula without signs of complications. SKIN: Without signs of generalized rash. NEUROLOGIC: She is nonfocal, moving all extremities. PSYCHIATRIC: Affect was pleasant. Labs Lab Laboratory Tests Test 05/28/20 09:12 05/29/20 04:15 White Blood Count 2.1 x10^3/uL (4.0-11.0) 2.0 x10^3/uL (4.0-11.0) Red Blood Count 2.69 x10^6/uL (3.50-5.40) 2.41 x10^6/uL (3.50-5.40) Hemoglobin 8.7 g/dL (12.0-15.5) 7.8 g/dL (12.0-15.5) Hematocrit 26.1 % (36.0-47.0) 23.4 % (36.0-47.0) Mean Corpuscular Volume 97 fL (79-100) 97 fL (79-100) Mean Corpuscular Hemoglobin 32 pg (25-35) 32 pg (25-35) Mean Corpuscular Hemoglobin Concent 33 g/dL (31-37) 33 g/dL (31-37) Red Cell Distribution Width 20.2 % (11.5-14.5) 19.8 % (11.5-14.5) Platelet Count 159 x10^3/uL (140-400) 133 x10^3/uL (140-400) Neutrophils (%) (Auto) 65 % (31-73) 49 % (31-73) Lymphocytes (%) (Auto) 15 % (24-48) 23 % (24-48) Monocytes (%) (Auto) 19 % (0-9) 26 % (0-9) Eosinophils (%) (Auto) 0 % (0-3) 1 % (0-3) Basophils (%) (Auto) 1 % (0-3) 1 % (0-3) Neutrophils # (Auto) 1.4 x10^3/uL (1.8-7.7) 1.0 x10^3/uL (1.8-7.7) Lymphocytes # (Auto) 0.3 x10^3/uL (1.0-4.8) 0.5 x10^3/uL (1.0-4.8) Monocytes # (Auto) 0.4 x10^3/uL (0.0-1.1) 0.5 x10^3/uL (0.0-1.1) Eosinophils # (Auto) 0.0 x10^3/uL (0.0-0.7) 0.0 x10^3/uL (0.0-0.7) Basophils # (Auto) 0.0 x10^3/uL (0.0-0.2) 0.0 x10^3/uL (0.0-0.2) Sodium Level 130 mmol/L (136-145) 136 mmol/L (136-145) Potassium Level 4.5 mmol/L (3.5-5.1) 4.1 mmol/L (3.5-5.1) Chloride Level 94 mmol/L (98-107) 98 mmol/L (98-107) Carbon Dioxide Level 27 mmol/L (21-32) 33 mmol/L (21-32) Anion Gap 9 (6-14) 5 (6-14) Blood Urea Nitrogen 34 mg/dL (7-20) 19 mg/dL (7-20) Creatinine 5.7 mg/dL (0.6-1.0) 4.0 mg/dL (0.6-1.0) Estimated GFR (Cockcroft-Gault) 9.0 13.6 Glucose Level 141 mg/dL (70-99) 87 mg/dL (70-99) Calcium Level 9.4 mg/dL (8.5-10.1) 9.0 mg/dL (8.5-10.1) Objective Assessment Fever - better Nausea Pancytopenia - does have a h/o - seems baseline Reported COVID + - on rm air still CKD on HD HTN H/o anemia requiring transfusions - states w/u in progress Cirrhosis Plan Plan of Care S/p PRBCs 05/27 D/c Zosyn F/u response Anemia per primary If requires 02 may need pulm eval and/or steroids BECKY METZGER MD May 29, 2020 06:35
[2020-05-29] MEDS: PIPERACILLIN/TAZOBACTAM 2.25 GM in IV NORMAL SALINE 50ML 50 ML IV SCH (06:46)
[2020-05-29 07:15] VITALS: BP 147/66
[2020-05-29] MEDS: CARVEDILOL 12.5 MG TABLET. PO SCH ×2 (11:10→17:00)
[2020-05-29] MEDS: ONDANSETRON PF 4 MG/2 ML VIAL. IVP PRN (11:10)
[2020-05-29] MEDS: diphenhydrAMINE HCL 25 MG CAPSULE PO PRN (11:11)
[2020-05-29] MEDS: HEPARIN for SUB-Q USE 5,000 UNIT/ML VIAL. SQ SCH ×2 (11:12→20:29)
[2020-05-29 11:15] VITALS: BP 129/60
[2020-05-29] MEDS: HYDROcodone/APAP 5/325MG 1 TAB TABLET PO PRN (11:19)
--- NOTE | 2020-05-29 12:13 | PDOC ---
[employer] [facility] PROGRESS NOTE Chief Complaint Chief Complaint COVID-19 pneumonia CDK, on dialysis Pancytopenia Cirrhosis History of Present Illness History of Present Illness 05/29/2020 Patient seen and examined Sitting up at bedside, NAD Complains of generalized body aches Discussed with RN Chart reviewed 05/28/2020 Patient seen and examined Complains of abdominal pain Discussed with RN Chart reviewed Vitals/I&O Vitals/I&O: Vital Signs Date Time Temp Pulse Resp B/P (MAP) Pulse Ox O2 Delivery O2 Flow Rate FiO2 05/29/20 11:19 95 Room Air 05/29/20 11:10 75 147/66 05/29/20 07:15 98.0 18 98.0 05/28/20 17:20 1.0 l I & O 05/28/20 05/28/20 05/29/20 14:59 22:59 06:59 Intake Total 50 ml Output Total 0 ml Balance 50 ml Physical Exam Physical Exam: CONSTITUTIONAL: She is sitting at bedside. She is cooperative. She is pleasant. She is in no acute distress. Looks better. HEENT: She has normal pupils, muddy sclera. Oral cavity: Oropharynx was clear. NECK: Supple, no JVD. LUNGS: Decreased in the bases. No wheeze. On room air. HEART: S1 and S2. ABDOMEN: Obese, soft, nontender; no guarding. EXTREMITIES: Without clubbing or cyanosis. No gross edema. SKIN: Without signs of generalized rash. NEUROLOGIC: She is nonfocal, moving all extremities. PSYCHIATRIC: Affect was pleasant. General: Alert, Oriented X3, Cooperative, No acute distress Heart: Regular rate, Normal S1, Normal S2 Lungs: Clear, Wheezing Abdomen: Normal bowel sounds, Soft, No tenderness Extremities: No clubbing Skin: No breakdown, No significant lesion Labs Labs: Laboratory Tests Test 05/29/20 04:15 White Blood Count 2.0 x10^3/uL (4.0-11.0) Red Blood Count 2.41 x10^6/uL (3.50-5.40) Hemoglobin 7.8 g/dL (12.0-15.5) Hematocrit 23.4 % (36.0-47.0) Mean Corpuscular Volume 97 fL (79-100) Mean Corpuscular Hemoglobin 32 pg (25-35) Mean Corpuscular Hemoglobin Concent 33 g/dL (31-37) Red Cell Distribution Width 19.8 % (11.5-14.5) Platelet Count 133 x10^3/uL (140-400) Neutrophils (%) (Auto) 49 % (31-73) Lymphocytes (%) (Auto) 23 % (24-48) Monocytes (%) (Auto) 26 % (0-9) Eosinophils (%) (Auto) 1 % (0-3) Basophils (%) (Auto) 1 % (0-3) Neutrophils # (Auto) 1.0 x10^3/uL (1.8-7.7) Lymphocytes # (Auto) 0.5 x10^3/uL (1.0-4.8) Monocytes # (Auto) 0.5 x10^3/uL (0.0-1.1) Eosinophils # (Auto) 0.0 x10^3/uL (0.0-0.7) Basophils # (Auto) 0.0 x10^3/uL (0.0-0.2) Sodium Level 136 mmol/L (136-145) Potassium Level 4.1 mmol/L (3.5-5.1) Chloride Level 98 mmol/L (98-107) Carbon Dioxide Level 33 mmol/L (21-32) Anion Gap 5 (6-14) Blood Urea Nitrogen 19 mg/dL (7-20) Creatinine 4.0 mg/dL (0.6-1.0) Estimated GFR (Cockcroft-Gault) 13.6 Glucose Level 87 mg/dL (70-99) Calcium Level 9.0 mg/dL (8.5-10.1) Review of Systems Review of Systems: Pertinent as per HPI, otherwise 10 point review of systems is negative. Assessment and Plan Assessmemt and Plan Problems Medical Problems: (1) Coronavirus infection Status: Acute (2) ESRD (end stage renal disease) on dialysis Status: Chronic ASSESSMENT COVID-19 pneumonia CDK, on dialysis Pancytopenia Cirrhosis PLAN Respiratory isolation Trend labs Pain management, [place] 5mg q4hrs PRN HD MWF Continue current care Appreciate subspecialist input Full code DVT prophylaxis Discharge when approved by Nephrology Comment Review of Relevant I have reviewed the following items tamika (where applicable) has been applied. Justicifation of Admission Dx: Justifications for Admission: Justification of Admission Dx: Yes Chronic Renal Failure: Hemodynamic Instability VIKAS GAMEZ III DO May 29, 2020 12:13
--- NOTE | 2020-05-29 12:22 | PDOC ---
Renal-Progress Notes Subjective Notes Notes NO NEW COMPLAINTS History of Present Illness Hx of present illness STABLE Vitals Vitals Vital Signs Date Time Temp Pulse Resp B/P (MAP) Pulse Ox O2 Delivery O2 Flow Rate FiO2 05/29/20 11:19 95 Room Air 05/29/20 11:15 97.4 73 18 129/60 (83) 97.4 05/28/20 17:20 1.0 Weight Weight [ ] I.O. Intake and Output Intake and Output 05/29/20 07:00 Intake Total 50 ml Output Total 0 ml Balance 50 ml IV Total 50 ml Output Urine Total 0 ml Labs Labs Laboratory Tests Test 05/29/20 04:15 White Blood Count 2.0 x10^3/uL (4.0-11.0) Red Blood Count 2.41 x10^6/uL (3.50-5.40) Hemoglobin 7.8 g/dL (12.0-15.5) Hematocrit 23.4 % (36.0-47.0) Mean Corpuscular Volume 97 fL (79-100) Mean Corpuscular Hemoglobin 32 pg (25-35) Mean Corpuscular Hemoglobin Concent 33 g/dL (31-37) Red Cell Distribution Width 19.8 % (11.5-14.5) Platelet Count 133 x10^3/uL (140-400) Neutrophils (%) (Auto) 49 % (31-73) Lymphocytes (%) (Auto) 23 % (24-48) Monocytes (%) (Auto) 26 % (0-9) Eosinophils (%) (Auto) 1 % (0-3) Basophils (%) (Auto) 1 % (0-3) Neutrophils # (Auto) 1.0 x10^3/uL (1.8-7.7) Lymphocytes # (Auto) 0.5 x10^3/uL (1.0-4.8) Monocytes # (Auto) 0.5 x10^3/uL (0.0-1.1) Eosinophils # (Auto) 0.0 x10^3/uL (0.0-0.7) Basophils # (Auto) 0.0 x10^3/uL (0.0-0.2) Sodium Level 136 mmol/L (136-145) Potassium Level 4.1 mmol/L (3.5-5.1) Chloride Level 98 mmol/L (98-107) Carbon Dioxide Level 33 mmol/L (21-32) Anion Gap 5 (6-14) Blood Urea Nitrogen 19 mg/dL (7-20) Creatinine 4.0 mg/dL (0.6-1.0) Estimated GFR (Cockcroft-Gault) 13.6 Glucose Level 87 mg/dL (70-99) Calcium Level 9.0 mg/dL (8.5-10.1) Review of Systems Constitutional: yes: no symptom reported Ears/Nose/Throat: Yes: no symptom reported Eyes: Yes: no symptom reported Pulmonary: Yes dyspnea Cardiovascular: Yes no symptom reported Gastrointestional: Yes: nausea Genitourinary: Yes: no symptom reported Musculoskeletal: Yes: no symptom reported Skin: Yes no symptom reported Psychiatric/Neurological: Yes: no symptom reported Endocrine: Yes: no symptom reported Hematologic/Lymphatic: Yes: no symptom reported Physical Exam General Appearance: no apparent distress, oriented Respiratory: decreased breath sounds Heart: S1S2 Abdomen: soft, bowel sounds present, no rebound, no guarding Genitourinary: bladder flat Extremities: pulses present Neurology: alert, oriented, Ext weakness Assessment Assessment IMP ESRD-TTS ANEMIA CHRONIC GI BLEED PANCYTOPENIA-BETTER COVID 19 POS PROB PNEUMONIA PLAN ID EVAL AND TX STARTED OSMIN HD TTS LINNEA SHULTZ MD May 29, 2020 12:22
[2020-05-29 15:15] VITALS: BP 110/55
--- NOTE | 2020-05-29 15:28 | EKG ---
[facility] [address] [place] [address] Test Date: 2020-05-26 Test Time: 18:09:15 Pat Name: CESAR AGEE Department: Room: Gender: F Director Life: : 1955 Requested By: AKIKO BENSON Order Number: [id number] Reading MD: Measurements Intervals [place] Rate: 89 P: 50 OR: 140 QRS: 64 QRSD: 88 T: 21 QT: 370 QTc: 451 Interpretive Statements SINUS RHYTHM QRS(T) CONTOUR ABNORMALITY CONSIDER ANTEROLATERAL MYOCARDIAL DAMAGE POSSIBLY ABNORMAL ECG RI6.01 No previous ECG available for comparison
[2020-05-29 19:15] VITALS: BP 98/47
[2020-05-29] MEDS: traMADol 50 MG TABLET PO PRN (20:29)
[2020-05-29 22:15] VITALS: BP 120/56
--- NOTE | 2020-05-29 22:15 | NUR ---
Pt requesting to go the bathroom. Very unsteady upon getting out of bed. RN assisted pt to bathroom. Pt reported feeling unsteady and slightly dizzy. RN had another staff member get a walker for pt. RN instructed pt use walker when up. Also instructed pt to call for assistance when needing to get up. Will continue to monitor
[2020-05-30] MEDS: HYDROcodone/APAP 5/325MG 1 TAB TABLET PO PRN ×2 (03:00→19:36)
--- NOTE | 2020-05-30 03:02 | NUR ---
PT called out reporting bad headache and severe chest pain that radiated to back - bilat shoulder. Denied feeling like CP when had CP with cardiac origin previously. Reported that felt like band around chest. Stat EKG ordered - printed out to be Normal. Pt reported after 10 min, pain still there but not as bad. Pain med given - will continue to monitor pt status closely.
--- NOTE | 2020-05-30 03:33 | EKG ---
[facility] [address] [place] [address] Test Date: 2020-05-30 Test Time: 03:16:47 Pat Name: CESAR AGEE Department: Room: [facility] Gender: F Strategy Execution Consultant: BRIDGET SARAVIA : 1955 Requested By: VIKAS GAMEZ Order Number: [id number] Reading MD: Measurements Intervals [place] Rate: 75 P: 0 [place]: 158 QRS: 70 QRSD: 86 T: 18 QT: 412 QTc: 463 Interpretive Statements SINUS RHYTHM NORMAL ECG RI6.02 Compared to ECG 05/26/2020 18:09:15 No significant changes
[2020-05-30 03:47] VITALS: BP 145/65
[2020-05-30 05:33] LABS: BASO % 1 % (0-3); EOS % 1 % (0-3); HEMATOCRIT 22.5 % (36.0-47.0); HEMOGLOBIN 7.4 g/dL (12.0-15.5); LYMPH # 0.4 x10^3/uL (1.0-4.8); LYMPH % 21 % (24-48); MEAN CORPUSCULAR HEMOGLOBIN 33 pg (25-35); MEAN CORPUSCULAR HGB CONC 33 g/dL (31-37); MEAN CORPUSCULAR VOLUME 99 fL (79-100); MONO # 0.4 x10^3/uL (0.0-1.1); MONO % 20 % (0-9); NEUT # 1.2 x10^3/uL (1.8-7.7); NEUT % 57 % (31-73); PLATELET COUNT 126 x10^3/uL (140-400); RED BLOOD COUNT 2.27 x10^6/uL (3.50-5.40); RED CELL DISTRIBUTION WIDTH 20.7 % (11.5-14.5); WHITE BLOOD COUNT 2.1 x10^3/uL (4.0-11.0)
[2020-05-30 05:57] LABS: CREATININE 5.1 mg/dL (0.6-1.0); GFR 10.2; POTASSIUM 3.9 mmol/L (3.5-5.1)
[2020-05-30 07:00] VITALS: BP 120/63
[2020-05-30] MEDS: HEPARIN for SUB-Q USE 5,000 UNIT/ML VIAL. SQ SCH ×2 (09:00→19:37)
[2020-05-30] MEDS: CARVEDILOL 12.5 MG TABLET. PO SCH ×2 (09:37→17:41)
[2020-05-30] MEDS: traMADol 50 MG TABLET PO PRN (09:40)
[2020-05-30] MEDS: diphenhydrAMINE HCL 25 MG CAPSULE PO PRN (09:40)
--- NOTE | 2020-05-30 10:05 | SNU/HH DC ---
DISCHARGE WITH HOME HEALTH DISCHARGE INFORMATION: Final Diagnosis: Problems Medical Problems: (1) Coronavirus infection Status: Acute (2) ESRD (end stage renal disease) on dialysis Status: Chronic Condition on Discharge: Stable CODE STATUS: Code Status: Full HOME HEALTH: Face to Face: I certify this patient is under my care and that I, or a nurse practitioner or physician's bar assistant working with me, had a face to face encounter that meets the physician face to face encounter requirements with this patient on []. 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 PROCESSING SUPERVISOR For: Community Resources Pt Meets Homebound Status: Unsteady balance w/ amb, POST DISCHARGE ORDERS: Activity Instructions for Disc: Other, see below Weight Bearing Status after Di: Other, see below DIET AFTER DISCHARGE: Renal Wound/Incision Care: No wound care needed CHECKS AFTER DISCHARGE: Checks after discharge: Check blood press - daily, Check blood sugar, ac/hs, Check your Temp as needed, Weigh Yourself Daily TREATMENT/EQUIPMENT ORDERS: Adaptive Equipment Issued: None CERTIFICATION STATEMENT: Certification Statement: Certification Statement: Based on the above finding, I certify that this patient is confined to the home and needs intermittent long term care, physical therapy and/or speech therapy, or continues to need occupational therapy.~ This patient is under my care, and I have initiated the establishment of the plan of care.~ This patient will be followed by myself or a community physician who will periodically review the plan of care. Home Meds Active Scripts Hydrocodone/Apap 5-325 (NORCO 5-325 TABLET) 1 Each Tablet, 1 TAB PO PRN Q6HRS PRN for PAIN, #10 TAB 0 Refills Prov:AKIKO BENSON MD 05/26/20 Ferrous Sulfate (FEOSOL) 325 Mg Tablet, 325 MG PO BIDWMEALS for anemia for 60 Days, #120 TAB Prov:BERNARDO NG MD 03/08/20 Albuterol Sulfate (Proair Hfa) 8.5 Gm Hfa.aer.ad, 2.5 MG NEB PRN Q2HRS PRN for SOB / WHILE AWAKE for 30 Days, #30 INHALER Prov:ASHIA MOSS MD 09/27/19 Pantoprazole Sodium (PANTOPRAZOLE SODIUM ) 40 Mg Tablet.dr, 40 MG PO DAILYAC for Bleeding ulcer for 30 Days, #30 TAB.SR 5 Refills Prov:MELY OLVERA MD 07/04/19 Reported Medications Carvedilol (CARVEDILOL) 25 Mg Tablet, 25 MG PO BIDWMEALS for CARDIAC, TAB 03/05/20 Folic Acid (FOLIC ACID) 0.4 Mg Tablet, 0.4 MG PO DAILY for supplement, TAB 03/05/20 Acetaminophen (ACETAMINOPHEN) 500 Mg Tablet, 1 TAB PO PRN Q6HRS PRN for pain or fever for 15 Days, #60 TAB 0 Refills 12/30/19 VIKAS GAMEZ III DO May 30, 2020 10:05
--- NOTE | 2020-05-30 10:38 | PDOC ---
[employer] PROGRESS NOTE Chief Complaint Chief Complaint COVID-19 pneumonia CDK, on dialysis Pancytopenia Cirrhosis History of Present Illness History of Present Illness 05/30/2020 Patient seen and examined Sitting up, NAD Appears at baseline health Discussed with RN Chart reviewed 05/29/2020 Patient seen and examined Sitting up at bedside, NAD Complains of generalized body aches Discussed with RN Chart reviewed 05/28/2020 Patient seen and examined Complains of abdominal pain Discussed with RN Chart reviewed Vitals/I&O Vitals/I&O: Vital Signs Date Time Temp Pulse Resp B/P (MAP) Pulse Ox O2 Delivery O2 Flow Rate FiO2 05/30/20 09:40 20 92 Nasal Cannula 05/30/20 09:37 72 120/63 05/30/20 07:00 95.7 2.0 95.7 I & O 05/29/20 05/29/20 05/30/20 15:00 23:00 07:00 Intake Total 300 ml Balance 300 ml Physical Exam Physical Exam: CONSTITUTIONAL: She is sitting at bedside. She is cooperative. She is pleasant. She is in no acute distress. Health appears to be at baseline HEENT: She has normal pupils, muddy sclera. Oral cavity: Oropharynx was clear. NECK: Supple, no JVD. LUNGS: Decreased in the bases. No wheeze. On room air. HEART: S1 and S2. ABDOMEN: Obese, soft, nontender; no guarding. EXTREMITIES: Without clubbing or cyanosis. No gross edema. SKIN: Without signs of generalized rash. NEUROLOGIC: She is nonfocal, moving all extremities. PSYCHIATRIC: Affect was pleasant. General: Alert, Oriented X3, Cooperative, No acute distress Heart: Regular rate, Normal S1, Normal S2 Lungs: Clear Abdomen: Normal bowel sounds, Soft, No tenderness Extremities: No clubbing Skin: No breakdown, No significant lesion Labs Labs: Laboratory Tests Test 05/30/20 05:10 White Blood Count 2.1 x10^3/uL (4.0-11.0) Red Blood Count 2.27 x10^6/uL (3.50-5.40) Hemoglobin 7.4 g/dL (12.0-15.5) Hematocrit 22.5 % (36.0-47.0) Mean Corpuscular Volume 99 fL (79-100) Mean Corpuscular Hemoglobin 33 pg (25-35) Mean Corpuscular Hemoglobin Concent 33 g/dL (31-37) Red Cell Distribution Width 20.7 % (11.5-14.5) Platelet Count 126 x10^3/uL (140-400) Neutrophils (%) (Auto) 57 % (31-73) Lymphocytes (%) (Auto) 21 % (24-48) Monocytes (%) (Auto) 20 % (0-9) Eosinophils (%) (Auto) 1 % (0-3) Basophils (%) (Auto) 1 % (0-3) Neutrophils # (Auto) 1.2 x10^3/uL (1.8-7.7) Lymphocytes # (Auto) 0.4 x10^3/uL (1.0-4.8) Monocytes # (Auto) 0.4 x10^3/uL (0.0-1.1) Eosinophils # (Auto) 0.0 x10^3/uL (0.0-0.7) Basophils # (Auto) 0.0 x10^3/uL (0.0-0.2) Sodium Level 133 mmol/L (136-145) Potassium Level 3.9 mmol/L (3.5-5.1) Chloride Level 95 mmol/L (98-107) Carbon Dioxide Level 32 mmol/L (21-32) Anion Gap 6 (6-14) Blood Urea Nitrogen 27 mg/dL (7-20) Creatinine 5.1 mg/dL (0.6-1.0) Estimated GFR (Cockcroft-Gault) 10.2 Glucose Level 107 mg/dL (70-99) Calcium Level 9.0 mg/dL (8.5-10.1) Review of Systems Review of Systems: Pertinent as per HPI, otherwise 10 point review of systems is negative. Assessment and Plan Assessmemt and Plan Problems Medical Problems: (1) Coronavirus infection Status: Acute (2) ESRD (end stage renal disease) on dialysis Status: Chronic ASSESSMENT COVID-19 pneumonia CKD, on dialysis Pancytopenia Cirrhosis PLAN Patient appears at baseline health Dialysis at COVID-19 positive location Appreciate subspecialist input Full code Probable discharge Comment Review of Relevant I have reviewed the following items tamika (where applicable) has been applied. Justicifation of Admission Dx: Justifications for Admission: Justification of Admission Dx: Yes Chronic Renal Failure: Hemodynamic Instability VIKAS GAMEZ III DO May 30, 2020 10:38
[2020-05-30 11:08] VITALS: BP 132/63
[2020-05-30 14:46] VITALS: BP 117/58
--- NOTE | 2020-05-30 15:56 | PDOC ---
DATE OF SERVICE DATE: 05/30/20 TIME: 15:53 SUBJECTIVE ROS Stable OBJECTIVE Vital Signs Vital Signs Date Time Temp Pulse Resp B/P (MAP) Pulse Ox O2 Delivery O2 Flow Rate FiO2 05/30/20 14:46 97.5 69 16 117/58 (77) 96 Nasal Cannula 2.0 97.5 I & 0 Intake and Output 05/30/20 07:00 Intake Total 300 ml Balance 300 ml Intake Oral 300 ml # Voids 1 PHYSICAL EXAM Physical Exam GEN.: No apparent distress. HEENT: OM moist NECK: Supple. LUNGS: Clear to auscultation, non labored HEART: RRR, S1, S2 present. ABDOMEN: Soft, nontender. Positive bowel sounds. EXTREMITIES: No LE edema NEUROLOGIC: grossly normal SKIN: No rash No CVA or SP tenderness, No Carbajal DIAGNOSIS/ASSESSMENT Assessment & Plan ESRD 2/ 2 DM and HTN, On TTS schedule No indication for HD today H/o recurrent UGI bleeding, refractory ulcer - H. pylori negative x 2, last endotherapy 01/12/20 (has had 7 EGDs since 2016), past GDA embolization by and surgical evals (poor surgical candidate) cirrhosis, Hep C, h/o C Diff, h/o pancreatitis Anemia - On Darbapoetin Diabetes-Type Essential Hypertension- stable, antihypertensives COVID-19 pneumonia COMMENT/RELEVANT DATA Meds Current Medications Medications (Trade) Dose Ordered Sig/Kimberly Start Time Stop Time Status Last Admin Dose Admin Acetaminophen (Tylenol) 500 mg 1X PRN PRN 05/28/20 14:15 05/29/20 14:14 DC Acetaminophen/ Hydrocodone Bitart (Lortab 5/325) 1 tab PRN Q4HRS PRN 05/28/20 10:45 05/30/20 03:00 1 TAB Albumin Human 200 ml @ 200 mls/hr 1X PRN PRN 05/28/20 14:15 05/28/20 20:14 DC Carvedilol (Coreg) 25 mg BIDWMEALS 05/28/20 08:00 05/30/20 09:37 25 MG Darbepoetin Bol[place]ar (ARANESP for DIALYSIS PTS) 60 mcg WEEKLYHS 05/27/20 21:00 05/27/20 20:07 60 MCG Diphenhydramine HCl (Benadryl) 25 mg 1X PRN PRN 05/28/20 14:15 05/29/20 14:14 DC Heparin Sodium (Porcine) (Heparin Sodium) 5,000 unit BID 05/27/20 21:00 05/30/20 09:00 5,000 UNIT Info (PHARMACY MONITORING -- do not chart) 1 each PRN DAILY PRN 05/28/20 14:15 Labetalol HCl (Normodyne Iv Push) 10 mg PRN Q2HR PRN 05/28/20 03:45 05/28/20 09:50 10 MG Morphine Sulfate (Morphine Sulfate) 5 mg 1X ONCE 05/26/20 18:45 05/26/20 18:46 DC 05/26/20 19:07 5 MG Ondansetron HCl (Zofran) 4 mg PRN Q6HRS PRN 05/27/20 20:00 05/29/20 11:10 4 MG Piperacillin Sod/ Tazobactam Sod (Zosyn Per Pharmacy) 1 each PRN DAILY PRN 05/27/20 12:00 05/29/20 15:03 DC Piperacillin Sod/ Tazobactam Sod 2.25 gm/Sodium Chloride 50 ml @ 100 mls/hr Q8HRS 05/27/20 13:00 05/29/20 06:57 DC 05/29/20 06:46 100 MLS/HR Sodium Chloride 1,000 ml @ 400 mls/hr Q2H30M PRN 05/28/20 14:11 05/29/20 02:10 DC Tramadol HCl (Ultram) 50 mg PRN Q4HRS PRN 05/27/20 18:15 05/30/20 09:40 50 MG Zolpidem Tartrate (Ambien) 5 mg PRN QHS PRN 05/28/20 00:30 05/28/20 22:42 5 MG Lab Laboratory Tests Test 05/30/20 05:10 White Blood Count 2.1 x10^3/uL (4.0-11.0) Red Blood Count 2.27 x10^6/uL (3.50-5.40) Hemoglobin 7.4 g/dL (12.0-15.5) Hematocrit 22.5 % (36.0-47.0) Mean Corpuscular Volume 99 fL (79-100) Mean Corpuscular Hemoglobin 33 pg (25-35) Mean Corpuscular Hemoglobin Concent 33 g/dL (31-37) Red Cell Distribution Width 20.7 % (11.5-14.5) Platelet Count 126 x10^3/uL (140-400) Neutrophils (%) (Auto) 57 % (31-73) Lymphocytes (%) (Auto) 21 % (24-48) Monocytes (%) (Auto) 20 % (0-9) Eosinophils (%) (Auto) 1 % (0-3) Basophils (%) (Auto) 1 % (0-3) Neutrophils # (Auto) 1.2 x10^3/uL (1.8-7.7) Lymphocytes # (Auto) 0.4 x10^3/uL (1.0-4.8) Monocytes # (Auto) 0.4 x10^3/uL (0.0-1.1) Eosinophils # (Auto) 0.0 x10^3/uL (0.0-0.7) Basophils # (Auto) 0.0 x10^3/uL (0.0-0.2) Sodium Level 133 mmol/L (136-145) Potassium Level 3.9 mmol/L (3.5-5.1) Chloride Level 95 mmol/L (98-107) Carbon Dioxide Level 32 mmol/L (21-32) Anion Gap 6 (6-14) Blood Urea Nitrogen 27 mg/dL (7-20) Creatinine 5.1 mg/dL (0.6-1.0) Estimated GFR (Cockcroft-Gault) 10.2 Glucose Level 107 mg/dL (70-99) Calcium Level 9.0 mg/dL (8.5-10.1) Results All relevant outside records, renal labs, imaging studies, telemetry/EKG's were reviewed. Justicifation of Admission Dx: Justifications for Admission: Justification of Admission Dx: Yes Chronic Renal Failure: Hemodynamic Instability GINO TAN MD May 30, 2020 15:56
--- NOTE | 2020-05-30 16:37 | NUR ---
SW following. Spoke with RN and reviewed chart. Pt on 2l . Pt is COVID positive. SW called [facility] ([phone]) to coordinate care. Pt has been doing out-patient dialysis at the [facility] location since 05/24/2020. SW called to confirm chair time. Pt's chair time is 8am on Tuesdays, , and Saturdays. Pt to resume dialysis at the [facility] location upon discharge. SW to continue following. [address] [address] (phone) [phone] (fax)
[2020-05-30 19:49] VITALS: BP 144/63
[2020-05-30 23:11] VITALS: BP 120/58
[2020-05-31] VITALS (10 sets, daily range): BP systolic 98–161; BP diastolic 46–114
[2020-05-31] MEDS: diphenhydrAMINE HCL 25 MG CAPSULE PO PRN (00:57)
[2020-05-31] MEDS: ZOLPIDEM 5 MG TABLET. PO PRN ×2 (00:57→22:22)
[2020-05-31] MEDS ORDERED: IV NORMAL SALINE 1000ML BAG 1,000 ML IV PRN ×2 (07:42)
[2020-05-31] MEDS ORDERED: DIALYSIS PATIENT. MC PRN ×2 (07:45)
[2020-05-31] MEDS ORDERED: ALBUMIN HUMAN 25% 200 ML IV PRN (07:45)
[2020-05-31] MEDS: CARVEDILOL 12.5 MG TABLET. PO SCH ×2 (08:00→17:00)
--- NOTE | 2020-05-31 09:32 | PDOC ---
DATE OF SERVICE DATE: 05/31/20 TIME: 09:31 SUBJECTIVE ROS Stable , seen on HD, No complaints OBJECTIVE Vital Signs Vital Signs Date Time Temp Pulse Resp B/P (MAP) Pulse Ox O2 Delivery O2 Flow Rate FiO2 05/31/20 08:49 98.2 71 18 98/46 (63) 95 Room Air 98.2 05/30/20 20:36 2.0 I & 0 Intake and Output 05/31/20 07:00 Intake Total 240 ml Output Total 0 ml Balance 240 ml Intake Oral 240 ml Output Urine Total 0 ml # Voids 1 PHYSICAL EXAM Physical Exam GEN.: No apparent distress. HEENT: OM moist NECK: Supple. LUNGS: Clear to auscultation, non labored HEART: RRR, S1, S2 present. ABDOMEN: Soft, nontender. Positive bowel sounds. EXTREMITIES: No LE edema NEUROLOGIC: grossly normal SKIN: No rash No CVA or SP tenderness, No Carbajal DIAGNOSIS/ASSESSMENT Assessment & Plan ESRD 2/ 2 DM and HTN, On TTS schedule Seen on HD , tolerating well, Discussed treatment plan with Wil H/o recurrent UGI bleeding, refractory ulcer - H. pylori negative x 2, last endotherapy 01/12/20 (has had 7 EGDs since 2016), past GDA embolization by and surgical evals (poor surgical candidate) cirrhosis, Hep C, h/o C Diff, h/o pancreatitis Anemia - Hgb greadually decreasing, On Darbapoetin Diabetes-Type Essential Hypertension- stable, antihypertensives COVID-19 pneumonia (05/27) COMMENT/RELEVANT DATA Meds Current Medications Medications (Trade) Dose Ordered Sig/Kimberly Start Time Stop Time Status Last Admin Dose Admin Acetaminophen (Tylenol) 500 mg 1X PRN PRN 05/28/20 14:15 05/29/20 14:14 DC Acetaminophen/ Hydrocodone Bitart (Lortab 5/325) 1 tab PRN Q4HRS PRN 05/28/20 10:45 05/30/20 19:36 1 TAB Albumin Human 200 ml @ 200 mls/hr 1X PRN PRN 05/31/20 07:45 05/31/20 13:44 Carvedilol (Coreg) 25 mg BIDWMEALS 05/28/20 08:00 05/30/20 17:41 25 MG Darbepoetin [place]ar (ARANESP for DIALYSIS PTS) 60 mcg WEEKLYHS 05/27/20 21:00 05/27/20 20:07 60 MCG Diphenhydramine HCl (Benadryl) 25 mg 1X PRN PRN 05/28/20 14:15 05/29/20 14:14 DC Heparin Sodium (Porcine) (Heparin Sodium) 5,000 unit BID 05/27/20 21:00 05/30/20 19:37 5,000 UNIT Info (PHARMACY MONITORING -- do not chart) 1 each PRN DAILY PRN 05/31/20 07:45 Labetalol HCl (Normodyne Iv Push) 10 mg PRN Q2HR PRN 05/28/20 03:45 05/28/20 09:50 10 MG Morphine Sulfate (Morphine Sulfate) 5 mg 1X ONCE 05/26/20 18:45 05/26/20 18:46 DC 05/26/20 19:07 5 MG Ondansetron HCl (Zofran) 4 mg PRN Q6HRS PRN 05/27/20 20:00 05/29/20 11:10 4 MG Piperacillin Sod/ Tazobactam Sod (Zosyn Per Pharmacy) 1 each PRN DAILY PRN 05/27/20 12:00 05/29/20 15:03 DC Piperacillin Sod/ Tazobactam Sod 2.25 gm/Sodium Chloride 50 ml @ 100 mls/hr Q8HRS 05/27/20 13:00 05/29/20 06:57 DC 05/29/20 06:46 100 MLS/HR Sodium Chloride 1,000 ml @ 400 mls/hr Q2H30M PRN 05/31/20 07:42 05/31/20 19:41 Tramadol HCl (Ultram) 50 mg PRN Q4HRS PRN 05/27/20 18:15 05/30/20 09:40 50 MG Zolpidem Tartrate (Ambien) 5 mg PRN QHS PRN 05/28/20 00:30 05/31/20 00:57 5 MG Results All relevant outside records, renal labs, imaging studies, telemetry/EKG's were reviewed. Justicifation of Admission Dx: Justifications for Admission: Justification of Admission Dx: Yes Chronic Renal Failure: Hemodynamic Instability GINO TAN MD May 31, 2020 09:32
--- NOTE | 2020-05-31 09:40 | NUR ---
pt left for dialysis at approx 0915.
--- NOTE | 2020-05-31 09:41 | NUR ---
Coreg not given this am due to bp 94/46 and pt going to dialysis.
--- NOTE | 2020-05-31 10:19 | NUR ---
SW following. Spoke with RN and Dr. Jacobo. SW reviewed chart. Pt to discharge home today on room air with resumption of out-patient dialysis at [facility]. Pt's chair time is 8am on Tuesdays, , and Saturdays. Called [facility] to inform them of discharge today after dialysis. No further SW needs at this time. [address] [address] (phone) [phone] (fax)
--- NOTE | 2020-05-31 10:59 | PDOC ---
Infectious Disease Note Subjective Subjective Better says Some appetite No SOA ROS ROS no n/v/d/fever Vital Sign Vital Signs Vital Signs Date Time Temp Pulse Resp B/P (MAP) Pulse Ox O2 Delivery O2 Flow Rate FiO2 05/31/20 08:49 98.2 71 18 98/46 (63) 95 Room Air 98.2 05/30/20 20:36 2.0 Physical Exam PHYSICAL EXAM CONSTITUTIONAL: She is sitting at bedside. She is cooperative. She is pleasant. She is in no acute distress. Health appears to be at baseline HEENT: She has normal pupils, muddy sclera. Oral cavity: Oropharynx was clear. NECK: Supple, no JVD. LUNGS: Decreased in the bases. No wheeze. On room air. HEART: S1 and S2. ABDOMEN: Obese, soft, nontender; no guarding. EXTREMITIES: Without clubbing or cyanosis. No gross edema. SKIN: Without signs of generalized rash. NEUROLOGIC: She is nonfocal, moving all extremities. PSYCHIATRIC: Affect was pleasant. Objective Assessment Fever - better Nausea Pancytopenia - does have a h/o - seems baseline Reported COVID + - on rm air still CKD on HD HTN H/o anemia requiring transfusions - states w/u in progress Cirrhosis Plan Plan of Care D/c Zosyn F/u response pt/ot SHIRA MORALES MD May 31, 2020 10:59
[2020-05-31 11:19] LABS: BASO % 0 % (0-3); EOS % 2 % (0-3); LYMPH # 0.5 x10^3/uL (1.0-4.8); LYMPH % 25 % (24-48); MEAN CORPUSCULAR HEMOGLOBIN 33 pg (25-35); MEAN CORPUSCULAR HGB CONC 34 g/dL (31-37); MEAN CORPUSCULAR VOLUME 98 fL (79-100); MONO # 0.4 x10^3/uL (0.0-1.1); MONO % 22 % (0-9); NEUT % 52 % (31-73); PLATELET COUNT 153 x10^3/uL (140-400); RED BLOOD COUNT 2.14 x10^6/uL (3.50-5.40); RED CELL DISTRIBUTION WIDTH 20.1 % (11.5-14.5)
[2020-05-31 11:31] LABS: CALCIUM 8.4 mg/dL (8.5-10.1); CREATININE 5.7 mg/dL (0.6-1.0); POTASSIUM 3.9 mmol/L (3.5-5.1)
--- NOTE | 2020-05-31 12:03 | PDOC ---
[employer] PROGRESS NOTE Date of Service DOS: DATE: 05/31/20 TIME: 12:00 Chief Complaint Chief Complaint COVID-19 pneumonia CDK, on dialysis Pancytopenia Cirrhosis History of Present Illness History of Present Illness 05/31/2020 Patient seen and examined in dialysis Laying in bed, NAD Discussed with RN Lethargy and malaise overnight Increased O2 needs overnight Appears at baseline health Chart reviewed 05/30/2020 Patient seen and examined Sitting up, NAD Appears at baseline health Discussed with RN Chart reviewed 05/29/2020 Patient seen and examined Sitting up at bedside, NAD Complains of generalized body aches Discussed with RN Chart reviewed 05/28/2020 Patient seen and examined Complains of abdominal pain Discussed with RN Chart reviewed Vitals/I&O Vitals/I&O: Vital Signs Date Time Temp Pulse Resp B/P (MAP) Pulse Ox O2 Delivery O2 Flow Rate FiO2 05/31/20 08:49 98.2 71 18 98/46 (63) 95 Room Air 98.2 05/30/20 20:36 2.0 I & O 05/30/20 05/30/20 05/31/20 15:00 23:00 07:00 Intake Total 240 ml Output Total 0 ml Balance 240 ml Physical Exam Physical Exam: CONSTITUTIONAL: She is sitting at bedside. She is cooperative. She is pleasant. She is in no acute distress. Health appears to be at baseline HEENT: She has normal pupils, muddy sclera. Oral cavity: Oropharynx was clear. NECK: Supple, no JVD. LUNGS: Decreased in the bases. No wheeze. On room air. HEART: S1 and S2. ABDOMEN: Obese, soft, nontender; no guarding. EXTREMITIES: Without clubbing or cyanosis. No gross edema. SKIN: Without signs of generalized rash. NEUROLOGIC: She is nonfocal, moving all extremities. PSYCHIATRIC: Affect was pleasant. General: Alert, Oriented X3, Cooperative, No acute distress Heart: Regular rate, Normal S1, Normal S2 Lungs: Clear Abdomen: Normal bowel sounds, Soft, No tenderness Extremities: No clubbing Skin: No breakdown, No significant lesion Labs Labs: Laboratory Tests Test 05/31/20 05:20 White Blood Count 2.0 x10^3/uL (4.0-11.0) Red Blood Count 2.14 x10^6/uL (3.50-5.40) Hemoglobin 7.0 g/dL (12.0-15.5) Hematocrit 21.0 % (36.0-47.0) Mean Corpuscular Volume 98 fL (79-100) Mean Corpuscular Hemoglobin 33 pg (25-35) Mean Corpuscular Hemoglobin Concent 34 g/dL (31-37) Red Cell Distribution Width 20.1 % (11.5-14.5) Platelet Count 153 x10^3/uL (140-400) Neutrophils (%) (Auto) 52 % (31-73) Lymphocytes (%) (Auto) 25 % (24-48) Monocytes (%) (Auto) 22 % (0-9) Eosinophils (%) (Auto) 2 % (0-3) Basophils (%) (Auto) 0 % (0-3) Neutrophils # (Auto) 1.0 x10^3/uL (1.8-7.7) Lymphocytes # (Auto) 0.5 x10^3/uL (1.0-4.8) Monocytes # (Auto) 0.4 x10^3/uL (0.0-1.1) Eosinophils # (Auto) 0.0 x10^3/uL (0.0-0.7) Basophils # (Auto) 0.0 x10^3/uL (0.0-0.2) Sodium Level 132 mmol/L (136-145) Potassium Level 3.9 mmol/L (3.5-5.1) Chloride Level 94 mmol/L (98-107) Carbon Dioxide Level 30 mmol/L (21-32) Anion Gap 8 (6-14) Blood Urea Nitrogen 34 mg/dL (7-20) Creatinine 5.7 mg/dL (0.6-1.0) Estimated GFR (Cockcroft-Gault) 9.0 Glucose Level 75 mg/dL (70-99) Calcium Level 8.4 mg/dL (8.5-10.1) Review of Systems Review of Systems: Pertinent as per HPI, otherwise 10 point review of systems is negative. Assessment and Plan Assessmemt and Plan Problems Medical Problems: (1) Coronavirus infection Status: Acute (2) ESRD (end stage renal disease) on dialysis Status: Chronic ASSESSMENT COVID-19 pneumonia CKD on HD Pancytopenia Cirrhosis PLAN Continue current care Transfuse 1 unit PRBC Respiratory isolation DVT prophylaxis Full code Hope to discharge tomorrow Comment Review of Relevant I have reviewed the following items tamika (where applicable) has been applied. Justicifation of Admission Dx: Justifications for Admission: Justification of Admission Dx: Yes Chronic Renal Failure: Hemodynamic Instability VIKAS GAMEZ III DO May 31, 2020 12:03
[2020-05-31] MEDS: HEPARIN for SUB-Q USE 5,000 UNIT/ML VIAL. SQ SCH ×2 (14:18→22:21)
--- NOTE | 2020-05-31 16:58 | NUR ---
PT NOT DISCHARGING AT THIS TIME DUE TO RECIEVING BLOOD AFTER DIALYSIS. PT WILL BE REEVALUATED FOR D/C TOMORROW.
[2020-05-31] MEDS: traMADol 50 MG TABLET PO PRN (17:43)
[2020-05-31] MEDS: HYDROcodone/APAP 5/325MG 1 TAB TABLET PO PRN (22:23)
[2020-06-01 03:30] VITALS: BP 143/82
[2020-06-01 06:46] LABS: BASO % 1 % (0-3); EOS % 1 % (0-3); HEMATOCRIT 26.1 % (36.0-47.0); HEMOGLOBIN 8.6 g/dL (12.0-15.5); LYMPH # 0.5 x10^3/uL (1.0-4.8); LYMPH % 24 % (24-48); MEAN CORPUSCULAR HEMOGLOBIN 32 pg (25-35); MEAN CORPUSCULAR HGB CONC 33 g/dL (31-37); MEAN CORPUSCULAR VOLUME 98 fL (79-100); MONO # 0.4 x10^3/uL (0.0-1.1); MONO % 21 % (0-9); NEUT # 1.1 x10^3/uL (1.8-7.7); NEUT % 54 % (31-73); PLATELET COUNT 112 x10^3/uL (140-400); RED BLOOD COUNT 2.67 x10^6/uL (3.50-5.40); RED CELL DISTRIBUTION WIDTH 20.4 % (11.5-14.5)
[2020-06-01 07:00] VITALS: BP 188/90
[2020-06-01 07:06] LABS: CALCIUM 8.9 mg/dL (8.5-10.1); GFR 13.6; POTASSIUM 4.1 mmol/L (3.5-5.1)
[2020-06-01] MEDS: CARVEDILOL 12.5 MG TABLET. PO SCH (09:46)
[2020-06-01] MEDS: HEPARIN for SUB-Q USE 5,000 UNIT/ML VIAL. SQ SCH (09:46)
[2020-06-01] MEDS: HYDROcodone/APAP 5/325MG 1 TAB TABLET PO PRN (10:02)
--- NOTE | 2020-06-01 10:29 | PDOC ---
DATE OF SERVICE DATE: 06/01/20 TIME: 10:28 SUBJECTIVE ROS Stable , OBJECTIVE Vital Signs Vital Signs Date Time Temp Pulse Resp B/P (MAP) Pulse Ox O2 Delivery O2 Flow Rate FiO2 06/01/20 10:02 95 Room Air 2.0 06/01/20 09:46 67 188/90 06/01/20 07:00 97.5 18 97.5 I & 0 Intake and Output 06/01/20 07:00 Intake Total 990 ml Balance 990 ml Intake Oral 320 ml Blood Product IV Normal Saline Flush 670 ml # Bowel Movements 2 PHYSICAL EXAM Physical Exam GEN.: No apparent distress. HEENT: OM moist NECK: Supple. LUNGS: Clear to auscultation, non labored HEART: RRR, S1, S2 present. ABDOMEN: Soft, nontender. Positive bowel sounds. EXTREMITIES: No LE edema NEUROLOGIC: grossly normal SKIN: No rash No CVA or SP tenderness, No Carbajal DIAGNOSIS/ASSESSMENT Assessment & Plan ESRD 2/ 2 DM and HTN, On TTS schedule No indication for HD today H/o recurrent UGI bleeding, refractory ulcer - H. pylori negative x 2, last endotherapy 01/12/20 (has had 7 EGDs since 2016), past GDA embolization by and surgical evals (poor surgical candidate) cirrhosis, Hep C, h/o C Diff, h/o pancreatitis Anemia - Hgb greadually decreasing, On Darbapoetin S/P PRBC 05/31 Diabetes-Type Essential Hypertension- stable, antihypertensives COVID-19 pneumonia (05/27) COMMENT/RELEVANT DATA Meds Current Medications Medications (Trade) Dose Ordered Sig/Kimberly Start Time Stop Time Status Last Admin Dose Admin Acetaminophen (Tylenol) 500 mg 1X PRN PRN 05/28/20 14:15 05/29/20 14:14 DC Acetaminophen/ Hydrocodone Bitart (Lortab 5/325) 1 tab PRN Q4HRS PRN 05/28/20 10:45 06/01/20 10:02 1 TAB Albumin Human 200 ml @ 200 mls/hr 1X PRN PRN 05/31/20 07:45 05/31/20 13:44 DC Carvedilol (Coreg) 25 mg BIDWMEALS 05/28/20 08:00 06/01/20 09:46 25 MG Darbepoetin [place]ar (ARANESP for DIALYSIS PTS) 60 mcg WEEKLYHS 05/27/20 21:00 05/27/20 20:07 60 MCG Diphenhydramine HCl (Benadryl) 25 mg 1X PRN PRN 05/28/20 14:15 05/29/20 14:14 DC Heparin Sodium (Porcine) (Heparin Sodium) 5,000 unit BID 05/27/20 21:00 06/01/20 09:46 5,000 UNIT Info (PHARMACY MONITORING -- do not chart) 1 each PRN DAILY PRN 05/31/20 07:45 Labetalol HCl (Normodyne Iv Push) 10 mg PRN Q2HR PRN 05/28/20 03:45 05/28/20 09:50 10 MG Morphine Sulfate (Morphine Sulfate) 5 mg 1X ONCE 05/26/20 18:45 05/26/20 18:46 DC 05/26/20 19:07 5 MG Ondansetron HCl (Zofran) 4 mg PRN Q6HRS PRN 05/27/20 20:00 05/29/20 11:10 4 MG Piperacillin Sod/ Tazobactam Sod (Zosyn Per Pharmacy) 1 each PRN DAILY PRN 05/27/20 12:00 05/29/20 15:03 DC Piperacillin Sod/ Tazobactam Sod 2.25 gm/Sodium Chloride 50 ml @ 100 mls/hr Q8HRS 05/27/20 13:00 05/29/20 06:57 DC 05/29/20 06:46 100 MLS/HR Sodium Chloride 1,000 ml @ 400 mls/hr Q2H30M PRN 05/31/20 07:42 05/31/20 19:41 DC Tramadol HCl (Ultram) 50 mg PRN Q4HRS PRN 05/27/20 18:15 05/31/20 17:43 50 MG Zolpidem Tartrate (Ambien) 5 mg PRN QHS PRN 05/28/20 00:30 05/31/20 22:22 5 MG Lab Laboratory Tests Test 06/01/20 06:15 White Blood Count 2.0 x10^3/uL (4.0-11.0) Red Blood Count 2.67 x10^6/uL (3.50-5.40) Hemoglobin 8.6 g/dL (12.0-15.5) Hematocrit 26.1 % (36.0-47.0) Mean Corpuscular Volume 98 fL (79-100) Mean Corpuscular Hemoglobin 32 pg (25-35) Mean Corpuscular Hemoglobin Concent 33 g/dL (31-37) Red Cell Distribution Width 20.4 % (11.5-14.5) Platelet Count 112 x10^3/uL (140-400) Neutrophils (%) (Auto) 54 % (31-73) Lymphocytes (%) (Auto) 24 % (24-48) Monocytes (%) (Auto) 21 % (0-9) Eosinophils (%) (Auto) 1 % (0-3) Basophils (%) (Auto) 1 % (0-3) Neutrophils # (Auto) 1.1 x10^3/uL (1.8-7.7) Lymphocytes # (Auto) 0.5 x10^3/uL (1.0-4.8) Monocytes # (Auto) 0.4 x10^3/uL (0.0-1.1) Eosinophils # (Auto) 0.0 x10^3/uL (0.0-0.7) Basophils # (Auto) 0.0 x10^3/uL (0.0-0.2) Sodium Level 134 mmol/L (136-145) Potassium Level 4.1 mmol/L (3.5-5.1) Chloride Level 98 mmol/L (98-107) Carbon Dioxide Level 29 mmol/L (21-32) Anion Gap 7 (6-14) Blood Urea Nitrogen 18 mg/dL (7-20) Creatinine 4.0 mg/dL (0.6-1.0) Estimated GFR (Cockcroft-Gault) 13.6 Glucose Level 94 mg/dL (70-99) Calcium Level 8.9 mg/dL (8.5-10.1) Results All relevant outside records, renal labs, imaging studies, telemetry/EKG's were reviewed. Justicifation of Admission Dx: Justifications for Admission: Justification of Admission Dx: Yes Chronic Renal Failure: Hemodynamic Instability GINO TAN MD Jun 01, 2020 10:29
--- NOTE | 2020-06-01 10:54 | PDOC ---
[employer] PROGRESS NOTE Date of Service DOS: DATE: 06/01/20 TIME: 10:50 Chief Complaint Chief Complaint COVID-19 pneumonia CDK, on dialysis Pancytopenia Cirrhosis History of Present Illness History of Present Illness 06/01/2020 Patient seen and examined Sitting up in bed, NAD Appears at baseline health Chart reviewed Discussed with RN 05/31/2020 Patient seen and examined in dialysis Laying in bed, NAD Discussed with RN Lethargy and malaise overnight Increased O2 needs overnight Appears at baseline health Chart reviewed 05/30/2020 Patient seen and examined Sitting up, NAD Appears at baseline health Discussed with RN Chart reviewed 05/29/2020 Patient seen and examined Sitting up at bedside, NAD Complains of generalized body aches Discussed with RN Chart reviewed 05/28/2020 Patient seen and examined Complains of abdominal pain Discussed with RN Chart reviewed Vitals/I&O Vitals/I&O: Vital Signs Date Time Temp Pulse Resp B/P (MAP) Pulse Ox O2 Delivery O2 Flow Rate FiO2 06/01/20 10:02 95 Room Air 2.0 06/01/20 09:46 67 188/90 06/01/20 07:00 97.5 18 97.5 I & O 05/31/20 05/31/20 06/01/20 15:00 23:00 07:00 Intake Total 670 ml 320 ml Balance 670 ml 320 ml Physical Exam Physical Exam: CONSTITUTIONAL: She is sitting at bedside. She is cooperative. She is pleasant. She is in no acute distress. Health appears to be at baseline HEENT: She has normal pupils, muddy sclera. Oral cavity: Oropharynx was clear. NECK: Supple, no JVD. LUNGS: Decreased in the bases. No wheeze. On room air. HEART: S1 and S2. ABDOMEN: Obese, soft, nontender; no guarding. EXTREMITIES: Without clubbing or cyanosis. No gross edema. SKIN: Without signs of generalized rash. NEUROLOGIC: She is nonfocal, moving all extremities. PSYCHIATRIC: Affect was pleasant. General: Alert, Oriented X3, Cooperative, No acute distress Heart: Regular rate, Normal S1, Normal S2 Lungs: Clear Abdomen: Normal bowel sounds, Soft, No tenderness Extremities: No clubbing Skin: No breakdown, No significant lesion Labs Labs: Laboratory Tests Test 06/01/20 06:15 White Blood Count 2.0 x10^3/uL (4.0-11.0) Red Blood Count 2.67 x10^6/uL (3.50-5.40) Hemoglobin 8.6 g/dL (12.0-15.5) Hematocrit 26.1 % (36.0-47.0) Mean Corpuscular Volume 98 fL (79-100) Mean Corpuscular Hemoglobin 32 pg (25-35) Mean Corpuscular Hemoglobin Concent 33 g/dL (31-37) Red Cell Distribution Width 20.4 % (11.5-14.5) Platelet Count 112 x10^3/uL (140-400) Neutrophils (%) (Auto) 54 % (31-73) Lymphocytes (%) (Auto) 24 % (24-48) Monocytes (%) (Auto) 21 % (0-9) Eosinophils (%) (Auto) 1 % (0-3) Basophils (%) (Auto) 1 % (0-3) Neutrophils # (Auto) 1.1 x10^3/uL (1.8-7.7) Lymphocytes # (Auto) 0.5 x10^3/uL (1.0-4.8) Monocytes # (Auto) 0.4 x10^3/uL (0.0-1.1) Eosinophils # (Auto) 0.0 x10^3/uL (0.0-0.7) Basophils # (Auto) 0.0 x10^3/uL (0.0-0.2) Sodium Level 134 mmol/L (136-145) Potassium Level 4.1 mmol/L (3.5-5.1) Chloride Level 98 mmol/L (98-107) Carbon Dioxide Level 29 mmol/L (21-32) Anion Gap 7 (6-14) Blood Urea Nitrogen 18 mg/dL (7-20) Creatinine 4.0 mg/dL (0.6-1.0) Estimated GFR (Cockcroft-Gault) 13.6 Glucose Level 94 mg/dL (70-99) Calcium Level 8.9 mg/dL (8.5-10.1) Review of Systems Review of Systems: Pertinent as per HPI, otherwise 10 point review of systems is negative Assessment and Plan Assessmemt and Plan Problems Medical Problems: (1) Coronavirus infection Status: Acute (2) ESRD (end stage renal disease) on dialysis Status: Chronic ASSESSMENT COVID-19 pneumonia CDK, on dialysis Pancytopenia Cirrhosis PLAN At baseline health Discharge Comment Review of Relevant I have reviewed the following items tamika (where applicable) has been applied. Justicifation of Admission Dx: Justifications for Admission: Justification of Admission Dx: Yes Chronic Renal Failure: Hemodynamic Instability VIKAS GAMEZ III DO Jun 01, 2020 10:54
[2020-06-01 11:00] VITALS: BP 172/79
--- NOTE | 2020-06-01 11:06 | SNU/HH DC ---
DISCHARGE WITH HOME HEALTH DISCHARGE INFORMATION: Final Diagnosis: Problems Medical Problems: (1) Coronavirus infection Status: Acute (2) ESRD (end stage renal disease) on dialysis Status: Chronic Condition on Discharge: Stable CODE STATUS: Code Status: Full HOME HEALTH: Face to Face: I certify this patient is under my care and that I, or a nurse practitioner or physician's phlebotomist medical lab assistant working with me, had a face to face encounter that meets the physician face to face encounter requirements with this patient on []. Medical Complications: Other (ESRD recent COVID-19) RN For Eval/Treatment: Yes Physical Therapy For: Evalulation/Treatment Occupational Therapy For: Evaluation/Treatment Home Health Aide For: Self-care [employer] For: Community Resources Pt Meets Homebound Status: Poor coordination w/ amb. POST DISCHARGE ORDERS: Activity Instructions for Disc: Other, see below Weight Bearing Status after Di: Other, see below DIET AFTER DISCHARGE: Renal Wound/Incision Care: No wound care needed CHECKS AFTER DISCHARGE: Checks after discharge: Check blood press - daily, Check blood sugar, ac/hs, Check your Temp as needed, Weigh Yourself Daily TREATMENT/EQUIPMENT ORDERS: Adaptive Equipment Issued: None CERTIFICATION STATEMENT: Certification Statement: Certification Statement: Based on the above finding, I certify that this patient is confined to the home and needs intermittent group home care, physical therapy and/or speech therapy, or continues to need occupational therapy.~ This patient is under my care, and I have initiated the establishment of the plan of care.~ This patient will be followed by myself or a community physician who will periodically review the plan of care. Home Meds Active Scripts Hydrocodone/Apap 5-325 (NORCO 5-325 TABLET) 1 Each Tablet, 1 TAB PO PRN Q6HRS PRN for PAIN, #10 TAB 0 Refills Prov:AKIKO BENSON MD 05/26/20 Ferrous Sulfate (FEOSOL) 325 Mg Tablet, 325 MG PO BIDWMEALS for anemia for 60 Days, #120 TAB Prov:BERNARDO NG MD 03/08/20 Albuterol Sulfate (Proair Hfa) 8.5 Gm Hfa.aer.ad, 2.5 MG NEB PRN Q2HRS PRN for SOB / WHILE AWAKE for 30 Days, #30 INHALER Prov:ASHIA MOSS MD 09/27/19 Pantoprazole Sodium (PANTOPRAZOLE SODIUM ) 40 Mg Tablet.dr, 40 MG PO DAILYAC for Bleeding ulcer for 30 Days, #30 TAB.SR 5 Refills Prov:MELY OLVERA MD 07/04/19 Reported Medications Carvedilol (CARVEDILOL) 25 Mg Tablet, 25 MG PO BIDWMEALS for CARDIAC, TAB 03/05/20 Folic Acid (FOLIC ACID) 0.4 Mg Tablet, 0.4 MG PO DAILY for supplement, TAB 03/05/20 Acetaminophen (ACETAMINOPHEN) 500 Mg Tablet, 1 TAB PO PRN Q6HRS PRN for pain or fever for 15 Days, #60 TAB 0 Refills 12/30/19 VIKAS GAMEZ III DO Jun 01, 2020 11:06
--- NOTE | 2020-06-01 11:17 | DS ---
DATE OF DISCHARGE: 06/01/2020 ADMISSION DIAGNOSES: Fevers, recent COVID-19 pneumonia, probable volume overload, end-stage renal disease, on dialysis. DISCHARGE DIAGNOSES: Resolving pneumonia, resolving volume overload, end-stage renal disease, on dialysis, COVID-19, resolving anemia, diabetes, hypotension, kidney stones, pancreatitis, Clostridium difficile, cirrhosis, cholecystectomy, dialysis shunt and chronic pancytopenia. HOSPITAL COURSE: The patient is a pleasant elderly female who basically is on dialysis and had COVID-19. We admitted her quite often. We readmitted because her symptoms were worsening with shortness of breath and cough. Her chest x-ray was showing pneumonia. We treated her for COVID-19. We consulted Infectious Disease and Nephrology. We got her dialyzed and over the past 6 days, she has improved. This morning, I saw her and examined her. Heart tones are normal. Lungs are clear. She wants to go home. We planned to discharge with home health. DISPOSITION: Home with home health. ACTIVITY: As tolerated. DIET: Renal. MEDICATIONS: Please see the MRAD. TOTAL TIME: 34 minutes. VIKAS GAMEZ DO DR: CAMMIE/danial JOB#: [id number] / [id number]
[2020-06-01 15:00] VITALS: BP 180/72
--- NOTE | 2020-06-01 17:13 | NUR ---
Discharge Note: CESAR AGEE [address] [place] [address] Discharge instructions and discharge home medications reviewed with Patient and a copy given. All questions have been answered and understanding verbalized. The following instructions and handouts were given: diet, activity, medication list and follow up instructions provided to patient. Discontinued lines and drains: Peripheral IV discontinued and catheter intact. Patient discharged to Home or Self Care with Family Member via Wheelchair
--- NOTE | 2020-06-01 17:36 | NUR ---
SW following. Spoke with RN and reviewed chart. Pt's discharge held yesterday per blood transfusion. Pt to discharge home today with resumption of out-patient dialysis at [facility]. No further SW needs identified at discharge.
[2020-07-14] MEDS ORDERED: HYDR-2769 PO (02:45)
== END 2020-06-01 17:14 | disposition home health service (06) | DRG 177 ==
LOC: ER 17:54 → 6 SOUTH 23:09 → OBSVTOIN 05-27 11:26
PROVIDERS: ADMIT Internal Medicine; ATTEND Internal Medicine
PROC: 30233N1 Transfusion of Nonautologous Red Blood Cells into Peripheral Vein, Percutaneous Approach (ICD-10-PCS; principal; 2020-05-27)
PROC: 5A1D70Z Performance of Urinary Filtration, Intermittent, Less than 6 Hours Per Day (ICD-10-PCS; 2020-05-28)
PROC: 5A1D70Z Performance of Urinary Filtration, Intermittent, Less than 6 Hours Per Day (ICD-10-PCS; 2020-05-31)
DX: U07.1 COVID-19 (principal); N18.6 End stage renal disease; J12.89 Other viral pneumonia; D61.818 Other pancytopenia; I12.0 Hypertensive chronic kidney disease with stage 5 chronic kidney disease or end stage renal disease; E11.22 Type 2 diabetes mellitus with diabetic chronic kidney disease; E78.5 Hyperlipidemia, unspecified; E87.70 Fluid overload, unspecified; K59.00 Constipation, unspecified; K74.60 Unspecified cirrhosis of liver; M06.9 Rheumatoid arthritis, unspecified; N20.0 Calculus of kidney; Z78.9 Other specified health status; Z82.49 Family history of ischemic heart disease and other diseases of the circulatory system; Z83.3 Family history of diabetes mellitus; Z87.11 Personal history of peptic ulcer disease; Z87.440 Personal history of urinary (tract) infections; Z87.442 Personal history of urinary calculi; Z90.710 Acquired absence of both cervix and uterus; Z99.2 Dependence on renal dialysis; E21.3 Hyperparathyroidism, unspecified; E66.9 Obesity, unspecified; K21.9 Gastro-esophageal reflux disease without esophagitis; Z68.33 Body mass index [BMI] 33.0-33.9, adult
CPT/HCPCS: 36415; 71045; 80048; 80053; 82550; 83615; 83880; 84484; 85007; 85025; 85379; 86140; 86850; 86900; 86901; 86920; 93005; 96365; 96372; 96375; G0378; G0379; J0882; J1644; J2270; J2405; J2543; J3490; P9016; 99285-25; Q0163; U0003-CS

== ENCOUNTER 2020-06-12 12:54 | Inpatient (IN) | payer MEDICARE, MEDICAID ==
[~2020-06-12] VITALS: Ht 157.5 cm; Wt 81.3 kg
[~2020-06-12 12:54] MED LIST changes: +HYDR-3164 PO
[2020-06-12] MEDS ORDERED: ONDANSETRON PF 4 MG/2 ML VIAL. IV ONE (13:30)
[2020-06-12] MEDS ORDERED: fentaNYL PF VIAL 100 MCG/2 ML VIAL IV ONE ×2 (13:30→16:30)
[2020-06-12 13:39] LABS: BASO % 1 % (0-3); EOS % 0 % (0-3); HEMATOCRIT 22.8 % (36.0-47.0); HEMOGLOBIN 7.6 g/dL (12.0-15.5); LYMPH # 0.3 x10^3/uL (1.0-4.8); LYMPH % 11 % (24-48); MEAN CORPUSCULAR HEMOGLOBIN 34 pg (25-35); MEAN CORPUSCULAR HGB CONC 33 g/dL (31-37); MEAN CORPUSCULAR VOLUME 101 fL (79-100); MONO # 0.5 x10^3/uL (0.0-1.1); MONO % 18 % (0-9); NEUT # 1.9 x10^3/uL (1.8-7.7); NEUT % 70 % (31-73); PLATELET COUNT 106 x10^3/uL (140-400); RED BLOOD COUNT 2.26 x10^6/uL (3.50-5.40); RED CELL DISTRIBUTION WIDTH 21.2 % (11.5-14.5); WHITE BLOOD COUNT 2.8 x10^3/uL (4.0-11.0)
[2020-06-12 13:50] LABS: CREATININE 4.3 mg/dL (0.6-1.0); GFR 12.5; POTASSIUM 4.6 mmol/L (3.5-5.1)
[2020-06-12 13:56] LABS: ALBUMIN 3.3 g/dL (3.4-5.0); ALBUMIN/GLOBULIN RATIO 0.6 (1.0-1.7); MAGNESIUM 1.9 mg/dL (1.8-2.4); TOTAL BILIRUBIN 1.1 mg/dL (0.2-1.0); TOTAL PROTEIN 8.7 g/dL (6.4-8.2)
[2020-06-12 14:25] LABS: % BASOS 1 % (0-3); % LYMPHS 9 % (24-48); % MONOS 18 % (0-10); % SEGS 72 % (35-66); ANISOCYTOSIS MOD; PLT ESTIMATE DECREASED (ADEQUATE); POIKILOCYTOSIS SLIGHT
--- NOTE | 2020-06-12 15:56 | RAD ---
CT abdomen and pelvis without contrast: Reason for examination: Abdominal pain with nausea, vomiting and diarrhea. Comparison is made to previous study dated 04/09/2020. Helical images were obtained through the abdomen and pelvis without contrast administration. Reconstruction was performed in sagittal and coronal planes. Exposure: One or more of the following individualized dose reduction techniques were utilized for this examination: 1. Automated exposure control 2. Adjustment of the mA and/or kV according to patient size 3. Use of iterative reconstruction technique. There are now small pleural effusions layering posteriorly in the lung bases bilaterally. No infiltrates or pneumothorax are seen. The heart size continues to be enlarged with no pericardial effusion. There is moderate ascites present especially around the liver which does not appear to change significantly from previous exam. No focal lesion is seen at the liver. Gallbladder surgically absent. No abnormality seen at the spleen, adrenal glands or pancreas. The abdominal aorta and inferior vena cava show no acute abnormalities but there is nodular scarring vascular calcification. The colon shows no diverticulosis or diverticulitis or colitis. There is a small hiatal hernia. The stomach shows no abnormal distention or obstruction. The small intestinal tract shows no abnormal dilatation, wall thickening or evidence of obstruction. The kidneys show nonobstructing calculi in the right kidney. No hydronephrosis or obstructive uropathy is evident. Metallic foreign bodies are seen in the mid abdomen which are unchanged. There is hazy density within the mesentery in the midabdomen. This is adjacent to the pancreatic head and uncinate process and could reflect pancreatitis but could represent mesenteritis. No abnormality seen at the bladder. Multiple small calcifications are seen in the pelvis which probably reflect phleboliths and have not changed. No abnormality seen at the vaginal cuff. There is generalized increased density within the soft tissues which may reflect anasarca. There continue to be degenerative changes in the spine with degenerative disc disease and vacuum phenomena present at the L3-4 and L4-5 disc levels. Postop changes are seen in the right femur. No acute bony abnormalities are seen. IMPRESSION: New small pleural effusions bilaterally. Moderate ascites predominantly around the liver which is unchanged. Nonobstructing calculi in the right kidney with no hydronephrosis or obstructive uropathy seen. Hazy density in the mesentery predominantly in the mid abdomen which could be related to pancreatitis however mesenteritis cannot be excluded. Soft tissue edema consistent with anasarca. Electronically signed by: Giuliana Garland MD (06/12/2020 3:53 PM) [facility]
[2020-06-12] MEDS ORDERED: IV NORMAL SALINE 500ML BAG 500 ML IV ONE (16:30)
[2020-06-12] MEDS ORDERED: ONDANSETRON PF 4 MG/2 ML VIAL. IV PRN (16:30)
--- NOTE | 2020-06-12 16:52 | PHYS DOC ---
Past Medical History Past Medical History: Anemia, Diabetes-Type II, GERD, GI Bleed, Hypertension, Kidney Stone, Pancreatitis, Pneumonia, Renal Failure, Other Additional Past Medical Histor: Ulcers,ESRD,C-DIFF,CIRRHOSIS Past Surgical History: Cholecystectomy, Other Additional Past Surgical Histo: LEFT UPPER dialysis shunt Smoking Status: Never Smoker Alcohol Use: None Drug Use: None General Adult EDM: Chief Complaint: NAUSEA/VOMITING/DIARRHA HPI: HPI: Patient is a 65 year old AA female who presents to the emergency department today via EMS with complaints of periumbilical abdominal pain, nausea, and vomiting that began yesterday while she was at dialysis. Patient states that she has vomited over 7 times in the last 24 hours. Patient reports that she had to stop her dialysis yesterday an hour before she was done because she was sick. Patient states that she still urinates, she denies any dysuria, hematuria, or change in urination. She states that she was diagnosed with COVID-19 over 2 weeks ago but denies any cough, shortness of breath, or chest pain. She currently complains of a headache but denies any vision changes, numbness, ting ling, or weakness. She currently rates her headache a 10 out of 10 on the pain scale, she denies any alleviating factors, she states that vomiting makes the pain worse. She denies any radiation of the pain. Review of Systems: Review of Systems: Constitutional: Denies fever or chills. [] HENT: Denies nasal congestion or sore throat. [] Respiratory: Denies cough or shortness of breath. [] Cardiovascular: Denies chest pain or edema. [] GI: See HPI : Denies dysuria. [] Musculoskeletal: Denies back pain or joint pain. [] Integument: Denies rash. [] Neurologic: Denies focal weakness or sensory changes; see HPI Endocrine: Denies polyuria or polydipsia. [] Lymphatic: Denies swollen glands. [] Psychiatric: Denies depression or anxiety. [] Heart Score: Risk Factors: Risk Factors: DM, Current or recent (<one month) smoker, HTN, HLP, family history of CAD, obesity. Risk Scores: Score 0 - 3: 2.5% MACE over next 6 weeks - Discharge Home Score 4 - 6: 20.3% MACE over next 6 weeks - Admit for Clinical Observation Score 7 - 10: 72.7% MACE over next 6 weeks - Early Invasive Strategies Current Medications: Current Medications Medications (Trade) Dose Ordered Sig/Kimberly Start Time Stop Time Status Last Admin Dose Admin Fentanyl Citrate (Fentanyl 2ml Vial) 50 mcg PRN Q2HR PRN 06/12/20 16:30 06/13/20 16:29 Ondansetron HCl (Zofran) 4 mg PRN Q8HRS PRN 06/12/20 16:30 06/13/20 16:29 Sodium Chloride 1,000 ml @ 75 mls/hr [id number] 06/12/20 16:30 06/13/20 16:29 Allergies: Allergies: Allergies Coded Allergies Type Severity Reaction Last Updated Verified No Known Drug Allergies 05/11/20 No Physical Exam: PE: Constitutional: Well developed, well nourished, no acute distress, non-toxic appearance. [] HENT: Normocephalic, atraumatic, bilateral external ears normal, oropharynx dry, nose normal. [] Eyes: PERRLA, EOMI, conjunctiva normal, no discharge. [] Neck: Normal range of motion, no stridor. [] Cardiovascular:Heart rate regular tachycardic rhythm, no murmur [] Lungs & Thorax: Bilateral breath sounds clear to auscultation in upper lobes, diminished posterior bilateral, regular rate, no retractions, no wheezing [] Abdomen: Bowel sounds normal, soft, periumbilical tenderness to palpation, no rebound tenderness, no guarding, no masses, no pulsatile masses. [] Skin: Warm, dry, no erythema, no rash. [] Back: No tenderness, no CVA tenderness. [] Extremities: No cyanosis, ROM intact Neurologic: Alert and oriented X 3, no focal deficits noted. [] Psychologic: Affect normal, judgement normal, mood normal. [] Current Patient Data: Labs: Laboratory Tests Test 06/12/20 13:25 White Blood Count 2.8 x10^3/uL (4.0-11.0) L Red Blood Count 2.26 x10^6/uL (3.50-5.40) L Hemoglobin 7.6 g/dL (12.0-15.5) L Hematocrit 22.8 % (36.0-47.0) L Mean Corpuscular Volume 101 fL (79-100) H Mean Corpuscular Hemoglobin 34 pg (25-35) Mean Corpuscular Hemoglobin Concent 33 g/dL (31-37) Red Cell Distribution Width 21.2 % (11.5-14.5) H Platelet Count 106 x10^3/uL (140-400) L Neutrophils (%) (Auto) 70 % (31-73) Lymphocytes (%) (Auto) 11 % (24-48) L Monocytes (%) (Auto) 18 % (0-9) H Eosinophils (%) (Auto) 0 % (0-3) Basophils (%) (Auto) 1 % (0-3) Neutrophils # (Auto) 1.9 x10^3/uL (1.8-7.7) Lymphocytes # (Auto) 0.3 x10^3/uL (1.0-4.8) L Monocytes # (Auto) 0.5 x10^3/uL (0.0-1.1) Eosinophils # (Auto) 0.0 x10^3/uL (0.0-0.7) Basophils # (Auto) 0.0 x10^3/uL (0.0-0.2) Segmented Neutrophils % 72 % (35-66) H Lymphocytes % 9 % (24-48) L Monocytes % 18 % (0-10) H Basophils % 1 % (0-3) Platelet Estimate Decreased (ADEQUATE) Poikilocytosis Slight Anisocytosis Mod Macrocytosis Slight Sodium Level 134 mmol/L (136-145) L Potassium Level 4.6 mmol/L (3.5-5.1) Chloride Level 94 mmol/L (98-107) L Carbon Dioxide Level 32 mmol/L (21-32) Anion Gap 8 (6-14) Blood Urea Nitrogen 36 mg/dL (7-20) H Creatinine 4.3 mg/dL (0.6-1.0) H Estimated GFR (Cockcroft-Gault) 12.5 BUN/Creatinine Ratio 8 (6-20) Glucose Level 130 mg/dL (70-99) H Calcium Level 10.0 mg/dL (8.5-10.1) Magnesium Level 1.9 mg/dL (1.8-2.4) Total Bilirubin 1.1 mg/dL (0.2-1.0) H Aspartate Amino Transferase (AST) 36 U/L (15-37) Alanine Aminotransferase (ALT) 16 U/L (14-59) Alkaline Phosphatase 129 U/L (46-116) H Total Protein 8.7 g/dL (6.4-8.2) H Albumin 3.3 g/dL (3.4-5.0) L Albumin/Globulin Ratio 0.6 (1.0-1.7) L Lipase 74 U/L (73-393) Laboratory Tests 06/12/20 13:25 Laboratory Tests 06/12/20 13:25 Vital Signs: Vital Signs Date Time Temp Pulse Resp B/P (MAP) Pulse Ox O2 Delivery O2 Flow Rate FiO2 06/12/20 16:28 22 99 Room Air 06/12/20 14:26 100 181/81 (114) 06/12/20 13:02 98.1 98.1 EKG: EK- Sinus tach 107, no STEMI read by Dr. Tamayo[] Radiology/Procedures: Radiology/Procedures: PROCEDURE: CT ABDOMEN PELVIS WO CONTRAST CT abdomen and pelvis without contrast: Reason for examination: Abdominal pain with nausea, vomiting and diarrhea. Comparison is made to previous study dated 04/09/2020. Helical images were obtained through the abdomen and pelvis without contrast administration. Reconstruction was performed in sagittal and coronal planes. Exposure: One or more of the following individualized dose reduction techniques were utilized for this examination: 1. Automated exposure control 2. Adjustment of the mA and/or kV according to patient size 3. Use of iterative reconstruction technique. There are now small pleural effusions layering posteriorly in the lung bases bilaterally. No infiltrates or pneumothorax are seen. The heart size continues to be enlarged with no pericardial effusion. There is moderate ascites present especially around the liver which does not appear to change significantly from previous exam. No focal lesion is seen at the liver. Gallbladder surgically absent. No abnormality seen at the spleen, adrenal glands or pancreas. The abdominal aorta and inferior vena cava show no acute abnormalities but there is nodular scarring vascular calcification. The colon shows no diverticulosis or diverticulitis or colitis. There is a small hiatal hernia. The stomach shows no abnormal distention or obstruction. The small intestinal tract shows no abnormal dilatation, wall thickening or evidence of obstruction. The kidneys show nonobstructing calculi in the right kidney. No hydronephrosis or obstructive uropathy is evident. Metallic foreign bodies are seen in the mid abdomen which are unchanged. There is hazy density within the mesentery in the midabdomen. This is adjacent to the pancreatic head and uncinate process and could reflect pancreatitis but could represent mesenteritis. No abnormality seen at the bladder. Multiple small calcifications are seen in the pelvis which probably reflect phleboliths and have not changed. No abnormality seen at the vaginal cuff. There is generalized increased density within the soft tissues which may reflect anasarca. There continue to be degenerative changes in the spine with degenerative disc disease and vacuum phenomena present at the L3-4 and L4-5 disc levels. Postop changes are seen in the right femur. No acute bony abnormalities are seen. IMPRESSION: New small pleural effusions bilaterally. Moderate ascites predominantly around the liver which is unchanged. Nonobstructing calculi in the right kidney with no hydronephrosis or obstructive uropathy seen. Hazy density in the mesentery predominantly in the mid abdomen which could be related to pancreatitis however mesenteritis cannot be excluded. Soft tissue edema consistent with anasarca. [] Course & Med Decision Making: Course & Med Decision Making Pertinent Labs and Imaging studies reviewed. (See chart for details) [id number]-spoke with Dr. Jacobo who is the admitting physician, and care was assumed following discussion of patient. Will admit the patient for acute mesenteritis, periumbilical abdominal pain, and end-stage renal disease Patient's vital signs stable. Patient remains afebrile, appears nontoxic, respirations even and unlabored. Patient will be admitted to the med/surg floor. Patient's case and plan of care also discussed with Dr. Tamayo [] Rishi Disclaimer: Rishi Disclaimer: This electronic medical record was generated, in whole or in part, using a voice recognition dictation system. Departure Departure Impression: Primary Impression: Abdominal pain Qualified Codes: R10.33 - Periumbilical pain Additional Impressions: End stage renal disease Idiopathic sclerosing mesenteritis Disposition: ADMITTED INPATIENT Admitting Physician: BRYANT Irvin) Condition: STABLE Referrals: NO PCP (PCP) Justicifation of Admission Dx: Justifications for Admission: Justification of Admission Dx: Yes Chronic Renal Failure: Hemodynamic Instability CELIA BELTRAN LANDSCAPE CREW LEADER Jun 12, 2020 16:52
[2020-06-12] MEDS ORDERED: hydrALAZINE 20 MG/ML VIAL. IVP ONE (17:15)
[2020-06-12] MEDS: fentaNYL PF VIAL 100 MCG/2 ML VIAL IV PRN ×3 (18:12→23:56)
--- NOTE | 2020-06-12 18:26 | EKG ---
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
--- NOTE | 2020-06-12 19:10 | PDOC1 ---
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 (12) Cholelithiasis (13) Fluid volume excess (14) End stage renal disease (15) Kidney stone (16) Ureteral colic (17) Hematuria (18) Essential hypertension (19) Back pain Chief Complain: Abdominal pain nausea vomiting diarrhea recent COVID-19 History of Present Illness: HPI: This is a 65-year-old -[place] female who is on dialysis She is well-known to our service and we have admitted her several times within the past few weeks We recently diagnosed her with Covid-19 on 05-27 Over the past couple days she is been developing a lot of abdominal pain now she is developed nausea vomiting and diarrhea We did a CAT scan in the ER showing some enteritis Discussed the case with the ER physician were going to meet the patient and consult GI Past Medical/Surgical History: PMH/PSH: Past Medical History: Anemia, Diabetes-Type II, GERD, GI Bleed, Hypertension, Kidney Stone, Pancreatitis, Pneumonia, Renal Failure, Other recent Covid-19 Additional Past Medical Histor: Ulcers,ESRD on dialysis,C-DIFF,CIRRHOSIS Past Surgical History: Cholecystectomy, Other Additional Past Surgical Histo: LEFT UPPER dialysis shunt Allergies: Allergies: Coded Allergies: No Known Drug Allergies (Unverified , 05/11/20) Family History: Family History: Hypertension Social History: Social History: She does not drink smoke or take drugs she lives at home she is retired Current Medications: Current Medications Current Medications Ondansetron HCl (Zofran) 4 mg 1X ONCE IV Last administered on 06/12/20at 13:39; Start 06/12/20 at 13:30; Stop 06/12/20 at 13:31; Status DC Fentanyl Citrate (Fentanyl 2ml Vial) 50 mcg 1X ONCE IV Last administered on 06/12/20at 13:38; Start 06/12/20 at 13:30; Stop 06/12/20 at 13:31; Status DC Fentanyl Citrate (Fentanyl 2ml Vial) 50 mcg 1X ONCE IV Last administered on 06/12/20at 16:28; Start 06/12/20 at 16:30; Stop 06/12/20 at 16:31; Status DC Sodium Chloride 500 ml @ 500 mls/hr 1X ONCE IV ; Start 06/12/20 at 16:30; Stop 06/12/20 at 17:29; Status DC Ondansetron HCl (Zofran) 4 mg PRN Q8HRS PRN IV NAUSEA/VOMITING Last administered on 06/12/20at 18:12; Start 06/12/20 at 16:30; Stop 06/13/20 at 16:29 Fentanyl Citrate (Fentanyl 2ml Vial) 50 mcg PRN Q2HR PRN IV PAIN Last administered on 06/12/20at 18:12; Start 06/12/20 at 16:30; Stop 06/13/20 at 16:29 Sodium Chloride 1,000 ml @ 75 mls/hr [id number] IV ; Start 06/12/20 at 16:30; Stop 06/13/20 at 16:29 Hydralazine HCl (Apresoline Inj) 10 mg 1X ONCE IVP Last administered on 06/12/20at 17:27; Start 06/12/20 at 17:15; Stop 06/12/20 at 17:16; Status DC Active Scripts Active Dugger 5-325 Tablet (Acetaminophen/Hydrocodone Bitart) 1 Each Tablet 1 Tab PO PRN Q6HRS PRN Feosol (Ferrous Sulfate) 325 Mg Tablet 325 Mg PO BIDWMEALS 60 Days Proair Hfa (Albuterol Sulfate) 8.5 Gm Hfa.aer.ad 2.5 Mg NEB PRN Q2HRS PRN 30 Days Pantoprazole Sodium (Pantoprazole Sodium) 40 Mg Tablet.dr 40 Mg PO DAILYAC 30 Days Reported Carvedilol 25 Mg Tablet 25 Mg PO BIDWMEALS Folic Acid 0.4 Mg Tablet 0.4 Mg PO DAILY Acetaminophen 500 Mg Tablet 1 Tab PO PRN Q6HRS PRN 15 Days ROS: Review of Systems Review of System REVIEW OF SYSTEMS: GENERAL: Denies weakness SKIN: No bruising, hair changes or rashes. EYES: No blurred, double or loss of vision. NOSE AND THROAT: No history of nosebleeds, hoarseness or sore throat. HEART: No history of palpitations, chest pain or shortness of breath on exertion. LUNGS: Denies cough, hemoptysis, wheezing or shortness of breath. GASTROINTESTINAL: Complains of nausea vomiting diarrhea and abdominal pain GENITOURINARY: No history of frequency, urgency, hesitancy or nocturia. NEUROLOGIC: Denies history of numbness, tingling, or tremor. PSYCHIATRIC: No history of panic, anxiety or depression. ENDOCRINE: No history of heat or cold intolerance, polyuria or polydipsia. EXTREMITIES: Denies joint pain, pain on walking or stiffness. Physical Exam: Vital Signs: Vital Signs Date Time Temp Pulse Resp B/P (MAP) Pulse Ox O2 Delivery O2 Flow Rate FiO2 06/12/20 18:12 22 98 Room Air 06/12/20 17:57 109 206/92 (130) 06/12/20 14:26 06/12/20 13:02 98.1 98.1 Physcial Exam: GEN: No apparent distress. Alert and oriented HEENT: Normal cephalic, atraumatic, external auditory canals are patent EYES: Extraocular muscles are intact, pupil are equally round and reactive to light and accommodation MUSCULOSKELETAL: Well developed , well nourished, good range of motion ENDOCRINE: No thyromegaly was palpated LYMPHATICS: No cervical chain or axillary nodes were noted HEMATOPOIETIC: No bruising NECK: Supple, no JVD, no thyromegaly was noted LUNGS: Clear to auscultation in all lung chaudhry without rhonchi or wheezing HEART: RRR, S!, S2 present. Peripheral pulses intact, no obvious murmurs noted ABDOMEN: Soft, nontender. Positive bowel sounds, no organomegaly, normal bowel sounds EXTREMITIES: Without clubbing, cyanosis, or edema. Pedal pulses intact. Negative Homans sign NEUROLOGIC: Normal speech and tone. A&O x 3, moves all extremities, no obvious focal deficits PSYCHIATRIC: Normal affect, normal mood. Stable SKIN: No ulcerations or rashes, good skin turgor, no jaundice VASCULAR: Good capillary refill, neurovascular bundle appears to be intact Labs: Labs: Laboratory Tests Test 06/12/20 13:25 White Blood Count 2.8 x10^3/uL (4.0-11.0) Red Blood Count 2.26 x10^6/uL (3.50-5.40) Hemoglobin 7.6 g/dL (12.0-15.5) Hematocrit 22.8 % (36.0-47.0) Mean Corpuscular Volume 101 fL (79-100) Mean Corpuscular Hemoglobin 34 pg (25-35) Mean Corpuscular Hemoglobin Concent 33 g/dL (31-37) Red Cell Distribution Width 21.2 % (11.5-14.5) Platelet Count 106 x10^3/uL (140-400) Neutrophils (%) (Auto) 70 % (31-73) Lymphocytes (%) (Auto) 11 % (24-48) Monocytes (%) (Auto) 18 % (0-9) Eosinophils (%) (Auto) 0 % (0-3) Basophils (%) (Auto) 1 % (0-3) Neutrophils # (Auto) 1.9 x10^3/uL (1.8-7.7) Lymphocytes # (Auto) 0.3 x10^3/uL (1.0-4.8) Monocytes # (Auto) 0.5 x10^3/uL (0.0-1.1) Eosinophils # (Auto) 0.0 x10^3/uL (0.0-0.7) Basophils # (Auto) 0.0 x10^3/uL (0.0-0.2) Segmented Neutrophils % 72 % (35-66) Lymphocytes % 9 % (24-48) Monocytes % 18 % (0-10) Basophils % 1 % (0-3) Platelet Estimate Decreased (ADEQUATE) Poikilocytosis Slight Anisocytosis Mod Macrocytosis Slight Sodium Level 134 mmol/L (136-145) Potassium Level 4.6 mmol/L (3.5-5.1) Chloride Level 94 mmol/L (98-107) Carbon Dioxide Level 32 mmol/L (21-32) Anion Gap 8 (6-14) Blood Urea Nitrogen 36 mg/dL (7-20) Creatinine 4.3 mg/dL (0.6-1.0) Estimated GFR (Cockcroft-Gault) 12.5 BUN/Creatinine Ratio 8 (6-20) Glucose Level 130 mg/dL (70-99) Calcium Level 10.0 mg/dL (8.5-10.1) Magnesium Level 1.9 mg/dL (1.8-2.4) Total Bilirubin 1.1 mg/dL (0.2-1.0) Aspartate Amino Transf (AST/SGOT) 36 U/L (15-37) Alanine Aminotransferase (ALT/SGPT) 16 U/L (14-59) Alkaline Phosphatase 129 U/L (46-116) Total Protein 8.7 g/dL (6.4-8.2) Albumin 3.3 g/dL (3.4-5.0) Albumin/Globulin Ratio 0.6 (1.0-1.7) Lipase 74 U/L (73-393) Laboratory Tests Test 06/12/20 13:25 White Blood Count 2.8 x10^3/uL (4.0-11.0) Red Blood Count 2.26 x10^6/uL (3.50-5.40) Hemoglobin 7.6 g/dL (12.0-15.5) Hematocrit 22.8 % (36.0-47.0) Mean Corpuscular Volume 101 fL (79-100) Mean Corpuscular Hemoglobin 34 pg (25-35) Mean Corpuscular Hemoglobin Concent 33 g/dL (31-37) Red Cell Distribution Width 21.2 % (11.5-14.5) Platelet Count 106 x10^3/uL (140-400) Neutrophils (%) (Auto) 70 % (31-73) Lymphocytes (%) (Auto) 11 % (24-48) Monocytes (%) (Auto) 18 % (0-9) Eosinophils (%) (Auto) 0 % (0-3) Basophils (%) (Auto) 1 % (0-3) Neutrophils # (Auto) 1.9 x10^3/uL (1.8-7.7) Lymphocytes # (Auto) 0.3 x10^3/uL (1.0-4.8) Monocytes # (Auto) 0.5 x10^3/uL (0.0-1.1) Eosinophils # (Auto) 0.0 x10^3/uL (0.0-0.7) Basophils # (Auto) 0.0 x10^3/uL (0.0-0.2) Segmented Neutrophils % 72 % (35-66) Lymphocytes % 9 % (24-48) Monocytes % 18 % (0-10) Basophils % 1 % (0-3) Platelet Estimate Decreased (ADEQUATE) Poikilocytosis Slight Anisocytosis Mod Macrocytosis Slight Sodium Level 134 mmol/L (136-145) Potassium Level 4.6 mmol/L (3.5-5.1) Chloride Level 94 mmol/L (98-107) Carbon Dioxide Level 32 mmol/L (21-32) Anion Gap 8 (6-14) Blood Urea Nitrogen 36 mg/dL (7-20) Creatinine 4.3 mg/dL (0.6-1.0) Estimated GFR (Cockcroft-Gault) 12.5 BUN/Creatinine Ratio 8 (6-20) Glucose Level 130 mg/dL (70-99) Calcium Level 10.0 mg/dL (8.5-10.1) Magnesium Level 1.9 mg/dL (1.8-2.4) Total Bilirubin 1.1 mg/dL (0.2-1.0) Aspartate Amino Transf (AST/SGOT) 36 U/L (15-37) Alanine Aminotransferase (ALT/SGPT) 16 U/L (14-59) Alkaline Phosphatase 129 U/L (46-116) Total Protein 8.7 g/dL (6.4-8.2) Albumin 3.3 g/dL (3.4-5.0) Albumin/Globulin Ratio 0.6 (1.0-1.7) Lipase 74 U/L (73-393) Images: Images CT of the abdomen shows the following New small pleural effusions bilaterally. Moderate ascites predominantly around the liver which is unchanged. Nonobstructing calculi in the right kidney with no hydronephrosis or obstructive uropathy seen. Hazy density in the mesentery predominantly in the mid abdomen which could be related to pancreatitis however mesenteritis cannot be excluded. Soft tissue edema consistent with anasarca. Assessment/Plan Assessment/Plan Abdominal pain nausea vomiting diarrhea with abnormal CAT scan showing the following New small pleural effusions bilaterally. Moderate ascites predominantly around the liver which is unchanged. Nonobstructing calculi in the right kidney with no hydronephrosis or obstructive uropathy seen. Hazy density in the mesentery predominantly in the mid abdomen which could be related to pancreatitis however mesenteritis cannot be excluded. Soft tissue edema consistent with anasarca. Plan IV antibiotics Respiratory isolation as she has had recent COVID-19 Consult ID We will give her a gentle IV fluid challenge since we do not want her volume overload her she is on dialysis Consult GI Consult nephrology Home meds DVT prophylaxis Full code Saturday dialysis Long-term prognosis guarded Justicifation of Admission Dx: Justifications for Admission: Justification of Admission Dx: Yes Acute Renal Failure: Serum Cr > 4mg/dL Chronic Renal Failure: Hemodynamic Instability Sepsis: Infection VIKAS GAMEZ III DO Jun 12, 2020 19:09
[2020-06-12 20:37] VITALS: BP 194/91
--- NOTE | 2020-06-12 21:25 | NUR ---
Order clarification done at this time with by Sandhya GILL. Per physician, pt to be transferred to [address] [place], [place] [id number] unit for respiratory isolation and re-swabbed for covid-19.
--- NOTE | 2020-06-12 22:50 | NUR ---
Pt up to bathroom with assist of ENGINEERING TECHNICAL SPECIALIST. Pt urinated small amt of bloody urine with sm clot noted. Report passed on to BRIDGET Christy. Also passed on that just prior to transfer pt reported having difficulty breathing. Sats still in the mid 90's on RA. Pt transferred to 6S at 2300.
[2020-06-12] MEDS: IV NORMAL SALINE 1000ML BAG 1,000 ML IV SCH (23:08)
[2020-06-13] VITALS (8 sets, daily range): BP systolic 156–214; BP diastolic 71–102
[2020-06-13] MEDS: CEFEPIME HCL IV Push 1 GM VIAL. IVP SCH ×2 (00:42→23:57)
[2020-06-13] MEDS: fentaNYL PF VIAL 100 MCG/2 ML VIAL IV PRN ×4 (03:52→15:36)
[2020-06-13] MEDS: IV NORMAL SALINE 1000ML BAG 1,000 ML IV SCH (05:50)
--- NOTE | 2020-06-13 09:05 | PDOC2 ---
GI CONSULT Date of Service: DATE: 06/13/20 TIME: 09:05 Reason For Consult: mesenteritis HPI: HPI: 64 y/o female who we've seen many times - see previous GI encounters. This time reports ill w/ vomiting, abd pain, and diarrhea since Saturday. Denies precipitating events. Denies hematemesis, hematochezia, and melena - did see blood in urine this morning. Diarrhea has slowed down and vomiting has not recurred. Says taking PPI and iron at home. Reports compliance w/ dialysis. PMH: PMH: HTN, HLD, ESRD on HD, RA, DM, hyperparathyroidism, OA partial hysterectomy FH: Family History: DM Social History: ALCOHOL: other (h/o overuse - tells me not drinking lately) Drugs: None ROS: GEN: Denies fevers, chills, sweats HEENT: Denies blurred vision, sore throat CV: Denies chest pain RESP: Denies shortness of air, cough GI: Per HPI : +hematuria ENDO: Denies weight changes NEURO: Denies confusion, dizziness MSK: +joint pain SKIN: Denies jaundice, pruritus Vitals: Vitals: Vital Signs Date Time Temp Pulse Resp B/P (MAP) Pulse Ox O2 Delivery O2 Flow Rate FiO2 06/13/20 08:39 20 Room Air 06/13/20 07:10 97.8 100 214/102 (139) 96 97.8 06/12/20 14:26 Labs: Labs: Laboratory Tests Test 06/12/20 13:25 06/12/20 21:10 White Blood Count 2.8 x10^3/uL (4.0-11.0) Red Blood Count 2.26 x10^6/uL (3.50-5.40) Hemoglobin 7.6 g/dL (12.0-15.5) Hematocrit 22.8 % (36.0-47.0) Mean Corpuscular Volume 101 fL (79-100) Mean Corpuscular Hemoglobin 34 pg (25-35) Mean Corpuscular Hemoglobin Concent 33 g/dL (31-37) Red Cell Distribution Width 21.2 % (11.5-14.5) Platelet Count 106 x10^3/uL (140-400) Neutrophils (%) (Auto) 70 % (31-73) Lymphocytes (%) (Auto) 11 % (24-48) Monocytes (%) (Auto) 18 % (0-9) Eosinophils (%) (Auto) 0 % (0-3) Basophils (%) (Auto) 1 % (0-3) Neutrophils # (Auto) 1.9 x10^3/uL (1.8-7.7) Lymphocytes # (Auto) 0.3 x10^3/uL (1.0-4.8) Monocytes # (Auto) 0.5 x10^3/uL (0.0-1.1) Eosinophils # (Auto) 0.0 x10^3/uL (0.0-0.7) Basophils # (Auto) 0.0 x10^3/uL (0.0-0.2) Segmented Neutrophils % 72 % (35-66) Lymphocytes % 9 % (24-48) Monocytes % 18 % (0-10) Basophils % 1 % (0-3) Platelet Estimate Decreased (ADEQUATE) Poikilocytosis Slight Anisocytosis Mod Macrocytosis Slight Sodium Level 134 mmol/L (136-145) Potassium Level 4.6 mmol/L (3.5-5.1) Chloride Level 94 mmol/L (98-107) Carbon Dioxide Level 32 mmol/L (21-32) Anion Gap 8 (6-14) Blood Urea Nitrogen 36 mg/dL (7-20) Creatinine 4.3 mg/dL (0.6-1.0) Estimated GFR (Cockcroft-Gault) 12.5 BUN/Creatinine Ratio 8 (6-20) Glucose Level 130 mg/dL (70-99) Calcium Level 10.0 mg/dL (8.5-10.1) Magnesium Level 1.9 mg/dL (1.8-2.4) Total Bilirubin 1.1 mg/dL (0.2-1.0) Aspartate Amino Transf (AST/SGOT) 36 U/L (15-37) Alanine Aminotransferase (ALT/SGPT) 16 U/L (14-59) Alkaline Phosphatase 129 U/L (46-116) Total Protein 8.7 g/dL (6.4-8.2) Albumin 3.3 g/dL (3.4-5.0) Albumin/Globulin Ratio 0.6 (1.0-1.7) Lipase 74 U/L (73-393) Glucose (Fingerstick) 118 mg/dL (70-99) Allergies: Coded Allergies: No Known Drug Allergies (Unverified , 05/11/20) Medications: Current Medications Medications (Trade) Dose Ordered Sig/Kimberly Route PRN Reason Start Time Stop Time Status Last Admin Dose Admin Ondansetron HCl (Zofran) 4 mg 1X ONCE IV 06/12/20 13:30 06/12/20 13:31 DC 06/12/20 13:39 Fentanyl Citrate (Fentanyl 2ml Vial) 50 mcg 1X ONCE IV 06/12/20 13:30 06/12/20 13:31 DC 06/12/20 13:38 Fentanyl Citrate (Fentanyl 2ml Vial) 50 mcg 1X ONCE IV 06/12/20 16:30 06/12/20 16:31 DC 06/12/20 16:28 Ondansetron HCl (Zofran) 4 mg PRN Q8HRS PRN IV NAUSEA/VOMITING 06/12/20 16:30 06/13/20 16:29 06/12/20 18:12 Fentanyl Citrate (Fentanyl 2ml Vial) 50 mcg PRN Q2HR PRN IV PAIN 06/12/20 16:30 06/13/20 16:29 06/13/20 08:09 Sodium Chloride 1,000 ml @ 75 mls/hr [id number] IV 06/12/20 16:30 06/13/20 16:29 06/12/20 23:08 Hydralazine HCl (Apresoline Inj) 10 mg 1X ONCE IVP 06/12/20 17:15 06/12/20 17:16 DC 06/12/20 17:27 Cefepime HCl (Maxipime) 1 gm Q24H IVP 06/13/20 01:00 06/13/20 00:42 Metronidazole 100 ml @ 100 mls/hr Q8HRS IV 06/13/20 01:00 06/13/20 05:30 Imaging: Imaging: CT A/P 06/12 IMPRESSION: New small pleural effusions bilaterally. Moderate ascites predominantly around the liver which is unchanged. Nonobstructing calculi in the right kidney with no hydronephrosis or obstructive uropathy seen. Hazy density in the mesentery predominantly in the mid abdomen which could be related to pancreatitis however mesenteritis cannot be excluded. Soft tissue edema consistent with anasarca. PE: GEN: lethargic HEENT: Atraumatic, PERRL LUNGS: CTAB HEART: RRR ABD: some distention, upper abd discomfort, BS+ EXTREMITY: No edema SKIN: No rashes, no jaundice NEURO/PSYCH: A & O 3 A/P: A/P: Vomiting, diarrhea, chronic abd pain Chronic anemia, leukopenia, thrombocytopenia, macrocytosis - bone marrow biopsy recommended per heme/onc in the past H/o recurrent UGI bleeding, refractory ulcer - H. pylori negative x 2, last endotherapy 01/12/20 (has had 7 EGDs since 2016), past GDA embolization by and surgical evals (poor surgical candidate) GERD, cirrhosis, Hep C, h/o C Diff, h/o pancreatitis CRC screen - last colonoscopy unremarkable at in 2019 ESRD on HD (h/o non-compliance), h/o alcohol overuse (probably still drinks), NSAID use Recent +COVID - repeat testing pending -- Chronic/recurrent issues. Try clears. Will review CT w/ Dr. Faulkner. Add IV PPI for now - change to PO as able. H/o C Diff - diarrhea better but will rule out recurrence. Systolic BP >200 when I saw - defer to Dr. Jacobo. IRIS SZYMANSKI Jun 13, 2020 09:05
[2020-06-13] MEDS: PANTOPRAZOLE IV PUSH 40 MG VIAL. IVP SCH ×2 (09:29→16:25)
[2020-06-13] MEDS ORDERED: LABETALOL 20 MG/4 ML DISP.SYRIN. IVP ONE (11:00)
--- NOTE | 2020-06-13 11:22 | PDOC ---
Infectious Disease Note Vital Sign Vital Signs Vital Signs Date Time Temp Pulse Resp B/P (MAP) Pulse Ox O2 Delivery O2 Flow Rate FiO2 06/13/20 11:09 100 216/104 06/13/20 08:39 20 Room Air 06/13/20 07:10 97.8 96 97.8 06/12/20 14:26 Labs Lab Laboratory Tests Test 06/12/20 13:25 06/12/20 21:10 White Blood Count 2.8 x10^3/uL (4.0-11.0) Red Blood Count 2.26 x10^6/uL (3.50-5.40) Hemoglobin 7.6 g/dL (12.0-15.5) Hematocrit 22.8 % (36.0-47.0) Mean Corpuscular Volume 101 fL (79-100) Mean Corpuscular Hemoglobin 34 pg (25-35) Mean Corpuscular Hemoglobin Concent 33 g/dL (31-37) Red Cell Distribution Width 21.2 % (11.5-14.5) Platelet Count 106 x10^3/uL (140-400) Neutrophils (%) (Auto) 70 % (31-73) Lymphocytes (%) (Auto) 11 % (24-48) Monocytes (%) (Auto) 18 % (0-9) Eosinophils (%) (Auto) 0 % (0-3) Basophils (%) (Auto) 1 % (0-3) Neutrophils # (Auto) 1.9 x10^3/uL (1.8-7.7) Lymphocytes # (Auto) 0.3 x10^3/uL (1.0-4.8) Monocytes # (Auto) 0.5 x10^3/uL (0.0-1.1) Eosinophils # (Auto) 0.0 x10^3/uL (0.0-0.7) Basophils # (Auto) 0.0 x10^3/uL (0.0-0.2) Segmented Neutrophils % 72 % (35-66) Lymphocytes % 9 % (24-48) Monocytes % 18 % (0-10) Basophils % 1 % (0-3) Platelet Estimate Decreased (ADEQUATE) Poikilocytosis Slight Anisocytosis Mod Macrocytosis Slight Sodium Level 134 mmol/L (136-145) Potassium Level 4.6 mmol/L (3.5-5.1) Chloride Level 94 mmol/L (98-107) Carbon Dioxide Level 32 mmol/L (21-32) Anion Gap 8 (6-14) Blood Urea Nitrogen 36 mg/dL (7-20) Creatinine 4.3 mg/dL (0.6-1.0) Estimated GFR (Cockcroft-Gault) 12.5 BUN/Creatinine Ratio 8 (6-20) Glucose Level 130 mg/dL (70-99) Calcium Level 10.0 mg/dL (8.5-10.1) Magnesium Level 1.9 mg/dL (1.8-2.4) Total Bilirubin 1.1 mg/dL (0.2-1.0) Aspartate Amino Transf (AST/SGOT) 36 U/L (15-37) Alanine Aminotransferase (ALT/SGPT) 16 U/L (14-59) Alkaline Phosphatase 129 U/L (46-116) Total Protein 8.7 g/dL (6.4-8.2) Albumin 3.3 g/dL (3.4-5.0) Albumin/Globulin Ratio 0.6 (1.0-1.7) Lipase 74 U/L (73-393) Glucose (Fingerstick) 118 mg/dL (70-99) Objective Assessment N/V Previous diarrhea dysuria Pancytopenia CKD on HD H/o COVID Plan Plan of Care Cont Cefepime and flagyl F/u labs and cults/-C-diff Thank you # [id number] BECKY METZGER MD Jun 13, 2020 11:22
--- NOTE | 2020-06-13 12:14 | CONS ---
DATE OF CONSULTATION: 06/13/2020 LOCATION: The patient's room is 656. REQUESTING PHYSICIAN: Douglas Jacobo III, DO REASON FOR CONSULTATION: Enteritis, abnormal CT scan. HISTORY OF PRESENT ILLNESS: The patient is a pleasant 65-year-old female with a history of pancytopenia, chronic kidney disease, on hemodialysis and recently COVID positive. She states about 3 days ago, she was having difficulty sleeping as she was having trouble with diarrhea. After that, she began to have complications with dysuria and urgency despite she has dialysis. She did go to dialysis the other day and began to have nausea, vomiting, and was brought to [facility] because she could not complete her dialysis. She had been afebrile. Blood pressure was elevated at 197/89. Her white blood cell count was 2.8, which was higher than her previous discharge. CT scan of the abdomen and pelvis was obtained; showed new small pleural effusions, moderate ascites around the liver; was unchanged, hazy density in the mesentery predominantly in the mid abdomen, which could be related to pancreatitis; however, mesenteritis could not be excluded. Her lipase on arrival was 74. Overnight, she was placed on cefepime and Flagyl. C. diff has been ordered as well. Currently, she is sitting in bed. She feels some better, although she is asking for something to sleep and she does have a little bit of abdominal discomfort still. She states she believes she passed a little bit of blood with her urine. PAST MEDICAL HISTORY: Positive for COVID infection, history of previous urinary tract infections, hypertension, hyperlipidemia, obesity, constipation, gastroesophageal reflux disease, GI bleed, peptic ulcer disease, anemia, cirrhosis, hepatitis, rheumatoid arthritis, chronic renal failure; on hemodialysis, hematuria, diabetes, hyperparathyroidism, and UTIs. PAST SURGICAL HISTORY: Left upper extremity AV shunt, cholecystectomy, tonsillectomy, hysterectomy. REVIEW OF SYSTEMS: Otherwise negative. ALLERGIES: No known drug allergies. SOCIAL HISTORY: History of alcohol abuse in the past. FAMILY HISTORY: Positive for alcohol abuse, cancer, hypercholesterolemia, and hypertension. CURRENT MEDICATIONS: Include cefepime, metronidazole, fentanyl, hydralazine, labetalol, pantoprazole. PHYSICAL EXAMINATION: VITAL SIGNS: She has been afebrile since her presentation, temperature 97.8, pulse 100, respirations 20, blood pressure 216/104. CONSTITUTIONAL: She is lying in bed. She is cooperative. She is in no acute distress. HEENT: Pupils equal and reactive. She has muddy sclerae. Oral cavity: Pharynx is clear. NECK: Supple, no JVD. LUNGS: Decreased in the bases. HEART: S1, S2. ABDOMEN: Soft, mildly distended, minimal tenderness. There is no guarding, no rebound. EXTREMITIES: Without clubbing, cyanosis, or gross edema. Left extremity fistula without signs of any complications. SKIN: Warm to touch without signs of rash. NEUROLOGIC: She is nonfocal, moves all extremities. PSYCHIATRIC: Affect is appropriate. LABORATORY VALUES: At presentation, white count was 2.8, hemoglobin 7.6, platelets of 106, neutrophils 70, lymphs are 11 and monos 18. Creatinine was 4.3, glucose 118. AST 36, ALT 16, alk phos 119, lipase was 74, total bili of 1.1. RADIOLOGY: Reviewed in history of present illness. IMPRESSION: 1. Nausea and vomiting. 2. Previous diarrhea. 3. Dysuria. 4. Pancytopenia. 5. Chronic kidney disease, on hemodialysis. 6. History of COVID. RECOMMENDATIONS: We will continue cefepime and Flagyl. Follow up labs, cultures, C. diff. Dr. Jacobo, thank you for allowing me to see and participate in the patient's care. Should you have any questions, please do not hesitate to contact me. BECKY METZGER MD DR: MISHA/danial JOB#: [id number] / [id number] [place]ER[place]
--- NOTE | 2020-06-13 12:50 | PDOC ---
[employer] PROGRESS NOTE Date of Service DOS: DATE: 06/13/20 TIME: 12:49 Chief Complaint Chief Complaint A/P: Abdominal pain - with possible mesenteritis, on cefepime + flagyl. ID and GI consulted Shortness of breath - likely related to mild uremia, fluid overload, symptomatic anemia. COVID 19 - 05/27/2020 positive testing Acute anemia - Hb 7.6 Pancytopenia - possibly leukopenic from COVID 19, thrombocytopenic possibly from same vs ETOH use End-stage renal disease on dialysis - Nephrology consulted H/o pancreatitis, alcoholic - wine drinker. Counseled on cessation given her dialysis status and comorbidities Mild bilateral knee osteoarthritis with suspected trace right knee effusion. Chronic back pain Previous gastrointestinal bleed HX Clostridium difficile Cholelithiasis Obesity Trace tricuspid regurgitation with an estimated PAP of 52 mmHg. Arteriovenous shunt Moderate protein calorie malnutrition - Albumin 2.8 Back and shoulder pain s/p fall - PT evaluation +Hemoccult H/o recurrent UGI bleeding, refractory ulcer - H. pylori negative x 2, last endotherapy 01/12/20 (has had 7 EGDs since 2016), past GDA embolization (poor surgical candidate) GERD cirrhosis Hep C FEN - Renal PPX - SCDs FULL CODE Dispo - inpatient History of Present Illness History of Present Illness Ms Fernandez is a 64 yo F w/ PMHx ESRD on HD TuThSa, PUD with previous GI bleeding, hypertension, hyperlipidemia, GERD, constipation, rheumatoid arthritis, diabetes, hyperparathyroidism, hep C, cirrhosis, and alcohol abuse p/w weakness, exertional shortness of breath and recently COVID positive. She states about 3 days prior to admit noted diarrhea and dysuria. At dialysis had nausea, vomiting, and was brought to [facility] because she could not complete her dialysis. WBC 2.8, which was higher than her previous discharge. CT scan of the abdomen and pelvis was obtained; showed new small pleural effusions, moderate ascites around the liver; was unchanged, hazy density in the mesentery predominantly in the mid abdomen, which could be related to pancreatitis; however, mesenteritis could not be excluded. Her lipase on arrival was 74. Overnight, she was placed on cefepime and Flagyl. C. diff has been ordered given her prior history. Afebrile. Still with abdominal pain and some dark stools. Tolerating PO well today, asking for an increase in pain medication. Vitals/I&O Vitals/I&O: Vital Signs Date Time Temp Pulse Resp B/P (MAP) Pulse Ox O2 Delivery O2 Flow Rate FiO2 06/13/20 12:19 18 98 Room Air 06/13/20 11:54 173/84 (113) 06/13/20 11:09 100 06/13/20 07:10 97.8 97.8 06/12/20 14:26 I & O 06/12/20 06/12/20 06/13/20 15:00 23:00 07:00 Intake Total 550 ml Output Total 50 ml Balance 500 ml Physical Exam General: Alert, Cooperative Lungs: Clear Labs Labs: Laboratory Tests Test 06/12/20 13:25 06/12/20 21:10 White Blood Count 2.8 x10^3/uL (4.0-11.0) Red Blood Count 2.26 x10^6/uL (3.50-5.40) Hemoglobin 7.6 g/dL (12.0-15.5) Hematocrit 22.8 % (36.0-47.0) Mean Corpuscular Volume 101 fL (79-100) Mean Corpuscular Hemoglobin 34 pg (25-35) Mean Corpuscular Hemoglobin Concent 33 g/dL (31-37) Red Cell Distribution Width 21.2 % (11.5-14.5) Platelet Count 106 x10^3/uL (140-400) Neutrophils (%) (Auto) 70 % (31-73) Lymphocytes (%) (Auto) 11 % (24-48) Monocytes (%) (Auto) 18 % (0-9) Eosinophils (%) (Auto) 0 % (0-3) Basophils (%) (Auto) 1 % (0-3) Neutrophils # (Auto) 1.9 x10^3/uL (1.8-7.7) Lymphocytes # (Auto) 0.3 x10^3/uL (1.0-4.8) Monocytes # (Auto) 0.5 x10^3/uL (0.0-1.1) Eosinophils # (Auto) 0.0 x10^3/uL (0.0-0.7) Basophils # (Auto) 0.0 x10^3/uL (0.0-0.2) Segmented Neutrophils % 72 % (35-66) Lymphocytes % 9 % (24-48) Monocytes % 18 % (0-10) Basophils % 1 % (0-3) Platelet Estimate Decreased (ADEQUATE) Poikilocytosis Slight Anisocytosis Mod Macrocytosis Slight Sodium Level 134 mmol/L (136-145) Potassium Level 4.6 mmol/L (3.5-5.1) Chloride Level 94 mmol/L (98-107) Carbon Dioxide Level 32 mmol/L (21-32) Anion Gap 8 (6-14) Blood Urea Nitrogen 36 mg/dL (7-20) Creatinine 4.3 mg/dL (0.6-1.0) Estimated GFR (Cockcroft-Gault) 12.5 BUN/Creatinine Ratio 8 (6-20) Glucose Level 130 mg/dL (70-99) Calcium Level 10.0 mg/dL (8.5-10.1) Magnesium Level 1.9 mg/dL (1.8-2.4) Total Bilirubin 1.1 mg/dL (0.2-1.0) Aspartate Amino Transf (AST/SGOT) 36 U/L (15-37) Alanine Aminotransferase (ALT/SGPT) 16 U/L (14-59) Alkaline Phosphatase 129 U/L (46-116) Total Protein 8.7 g/dL (6.4-8.2) Albumin 3.3 g/dL (3.4-5.0) Albumin/Globulin Ratio 0.6 (1.0-1.7) Lipase 74 U/L (73-393) Glucose (Fingerstick) 118 mg/dL (70-99) Assessment and Plan Assessmemt and Plan Problems Medical Problems: (1) Abdominal pain Status: Acute (2) End stage renal disease Status: Acute (3) Idiopathic sclerosing mesenteritis Status: Acute Comment Review of Relevant I have reviewed the following items tamika (where applicable) has been applied. Medications: Current Medications Medications (Trade) Dose Ordered Sig/Kimberly Route PRN Reason Start Time Stop Time Status Last Admin Dose Admin Ondansetron HCl (Zofran) 4 mg 1X ONCE IV 06/12/20 13:30 06/12/20 13:31 DC 06/12/20 13:39 Fentanyl Citrate (Fentanyl 2ml Vial) 50 mcg 1X ONCE IV 06/12/20 13:30 06/12/20 13:31 DC 06/12/20 13:38 Fentanyl Citrate (Fentanyl 2ml Vial) 50 mcg 1X ONCE IV 06/12/20 16:30 06/12/20 16:31 DC 06/12/20 16:28 Ondansetron HCl (Zofran) 4 mg PRN Q8HRS PRN IV NAUSEA/VOMITING 06/12/20 16:30 06/13/20 16:29 06/12/20 18:12 Fentanyl Citrate (Fentanyl 2ml Vial) 50 mcg PRN Q2HR PRN IV PAIN 06/12/20 16:30 06/13/20 16:29 06/13/20 11:49 Sodium Chloride 1,000 ml @ 75 mls/hr [id number] IV 06/12/20 16:30 06/13/20 16:29 06/12/20 23:08 Hydralazine HCl (Apresoline Inj) 10 mg 1X ONCE IVP 06/12/20 17:15 06/12/20 17:16 DC 06/12/20 17:27 Cefepime HCl (Maxipime) 1 gm Q24H IVP 06/13/20 01:00 06/13/20 00:42 Metronidazole 100 ml @ 100 mls/hr Q8HRS IV 06/13/20 01:00 06/13/20 05:30 Pantoprazole Sodium (PROTONIX VIAL for IV PUSH) 40 mg BIDAC IVP 06/13/20 09:30 06/13/20 09:29 Labetalol HCl (Normodyne Iv Push) 20 mg 1X ONCE IVP 06/13/20 11:00 06/13/20 11:04 DC 06/13/20 11:09 Justicifation of Admission Dx: Justifications for Admission: Justification of Admission Dx: Yes Acute Renal Failure: Serum Cr > 4mg/dL Chronic Renal Failure: Hemodynamic Instability Sepsis: Infection MELY OLVERA MD Jun 13, 2020 12:50
[2020-06-13] MEDS ORDERED: ONDANSETRON PF 4 MG/2 ML VIAL. IV PRN (13:00)
[2020-06-13] MEDS: FOLIC ACID 1 MG TABLET. PO SCH (13:34)
[2020-06-13] MEDS: CARVEDILOL 12.5 MG TABLET. PO SCH (16:26)
--- NOTE | 2020-06-13 16:41 | NUR ---
SW following. Reviewed chart and discussed with RN. Pt from home with HCBS. SW familiar with pt from multiple previous admissions. SW referred for frequent hospitalizations. Pt at high risk for readmission per hx of noncompliance. SW attempted to call into pt's room but there was no answer. Pt COVID pending. Pt was COVID positive back in April and discharged with dialysis setup at COVID positive clinic in [facility]. Pt's usually goes to out-patient dialysis on Tuesdays, and Saturdays at [facility], , (fax). Pt currently on room air with a clear liquid diet. Rehab screen has been ordered on this pt. SW to follow.
[2020-06-13] MEDS: fentaNYL PF VIAL 100 MCG/2 ML VIAL IVP PRN ×2 (20:13→23:58)
[2020-06-14] MEDS: fentaNYL PF VIAL 100 MCG/2 ML VIAL IVP PRN ×4 (03:55→21:22)
[2020-06-14 03:57] VITALS: BP 129/60
[2020-06-14 04:09] LABS: BASO % 1 % (0-3); EOS % 0 % (0-3); HEMOGLOBIN 7.4 g/dL (12.0-15.5); LYMPH # 0.3 x10^3/uL (1.0-4.8); LYMPH % 13 % (24-48); MEAN CORPUSCULAR HEMOGLOBIN 33 pg (25-35); MEAN CORPUSCULAR HGB CONC 32 g/dL (31-37); MEAN CORPUSCULAR VOLUME 103 fL (79-100); MONO # 0.5 x10^3/uL (0.0-1.1); MONO % 21 % (0-9); NEUT # 1.7 x10^3/uL (1.8-7.7); NEUT % 65 % (31-73); PLATELET COUNT 102 x10^3/uL (140-400); RED BLOOD COUNT 2.24 x10^6/uL (3.50-5.40); WHITE BLOOD COUNT 2.6 x10^3/uL (4.0-11.0)
[2020-06-14 04:37] LABS: ALBUMIN 3.1 g/dL (3.4-5.0); ALBUMIN/GLOBULIN RATIO 0.6 (1.0-1.7); CREATININE 5.9 mg/dL (0.6-1.0); GFR 8.7; TOTAL BILIRUBIN 0.8 mg/dL (0.2-1.0); TOTAL PROTEIN 8.2 g/dL (6.4-8.2)
[2020-06-14] MEDS: HYDROcodone/APAP 5/325MG 1 TAB TABLET PO PRN ×3 (05:37→20:33)
[2020-06-14 07:14] VITALS: BP 138/65
[2020-06-14] MEDS: PANTOPRAZOLE IV PUSH 40 MG VIAL. IVP SCH ×2 (07:30→17:44)
[2020-06-14] MEDS: CARVEDILOL 12.5 MG TABLET. PO SCH ×2 (08:00→17:45)
[2020-06-14] MEDS ORDERED: IV NORMAL SALINE 1000ML BAG 1,000 ML IV PRN ×2 (08:25)
[2020-06-14] MEDS ORDERED: ALBUMIN HUMAN 25% 200 ML IV PRN (08:30)
[2020-06-14] MEDS ORDERED: DIALYSIS PATIENT. MC PRN ×2 (08:30)
--- NOTE | 2020-06-14 09:06 | PDOC ---
Infectious Disease Note Subjective Subjective Didn't get her protonix this am and is having heartburn No F/c/s/N/V/D/SOA Vital Sign Vital Signs Vital Signs Date Time Temp Pulse Resp B/P (MAP) Pulse Ox O2 Delivery O2 Flow Rate FiO2 06/14/20 08:47 99 Room Air 06/14/20 07:14 97.7 81 22 138/65 (89) 97.7 Physical Exam PHYSICAL EXAM CONSTITUTIONAL: She is lying in bed. She is cooperative. She is in HD and has some abd discomfort HEENT: Pupils equal and reactive. She has muddy sclerae NECK: Supple, no JVD. LUNGS: Decreased in the bases. HEART: S1, S2. ABDOMEN: Soft, mildly distended, minimal tenderness. There is no guarding, no rebound. EXTREMITIES: Without clubbing, cyanosis, or gross edema. Left extremity fistula without signs of any complications. SKIN: Warm to touch without signs of rash. NEUROLOGIC: She is nonfocal, moves all extremities. PSYCHIATRIC: Affect is appropriate. Labs Lab Laboratory Tests Test 06/14/20 03:18 White Blood Count 2.6 x10^3/uL (4.0-11.0) Red Blood Count 2.24 x10^6/uL (3.50-5.40) Hemoglobin 7.4 g/dL (12.0-15.5) Hematocrit 23.0 % (36.0-47.0) Mean Corpuscular Volume 103 fL (79-100) Mean Corpuscular Hemoglobin 33 pg (25-35) Mean Corpuscular Hemoglobin Concent 32 g/dL (31-37) Red Cell Distribution Width 23.0 % (11.5-14.5) Platelet Count 102 x10^3/uL (140-400) Neutrophils (%) (Auto) 65 % (31-73) Lymphocytes (%) (Auto) 13 % (24-48) Monocytes (%) (Auto) 21 % (0-9) Eosinophils (%) (Auto) 0 % (0-3) Basophils (%) (Auto) 1 % (0-3) Neutrophils # (Auto) 1.7 x10^3/uL (1.8-7.7) Lymphocytes # (Auto) 0.3 x10^3/uL (1.0-4.8) Monocytes # (Auto) 0.5 x10^3/uL (0.0-1.1) Eosinophils # (Auto) 0.0 x10^3/uL (0.0-0.7) Basophils # (Auto) 0.0 x10^3/uL (0.0-0.2) Sodium Level 135 mmol/L (136-145) Potassium Level 5.0 mmol/L (3.5-5.1) Chloride Level 96 mmol/L (98-107) Carbon Dioxide Level 30 mmol/L (21-32) Anion Gap 9 (6-14) Blood Urea Nitrogen 54 mg/dL (7-20) Creatinine 5.9 mg/dL (0.6-1.0) Estimated GFR (Cockcroft-Gault) 8.7 BUN/Creatinine Ratio 9 (6-20) Glucose Level 117 mg/dL (70-99) Calcium Level 9.0 mg/dL (8.5-10.1) Total Bilirubin 0.8 mg/dL (0.2-1.0) Aspartate Amino Transf (AST/SGOT) 31 U/L (15-37) Alanine Aminotransferase (ALT/SGPT) 6 U/L (14-59) Alkaline Phosphatase 109 U/L (46-116) Total Protein 8.2 g/dL (6.4-8.2) Albumin 3.1 g/dL (3.4-5.0) Albumin/Globulin Ratio 0.6 (1.0-1.7) Objective Assessment N/V Previous diarrhea dysuria Pancytopenia CKD on HD H/o COVID Plan Plan of Care Discont Cefepime and flagyl No Urine or stool collected. States has not had loose stool since admit or urinated F/u labs and cults BECKY METZGER MD Jun 14, 2020 09:06
--- NOTE | 2020-06-14 11:13 | PDOC ---
[employer] PROGRESS NOTE Date of Service DOS: DATE: 06/14/20 TIME: 11:13 Chief Complaint Chief Complaint A/P: Abdominal pain - with possible mesenteritis, on cefepime + flagyl. ID and GI consulted Shortness of breath - likely related to mild uremia, fluid overload, symptomatic anemia. COVID 19 - 05/27/2020 positive testing Acute anemia - Hb 7.6 Pancytopenia - possibly leukopenic from COVID 19, thrombocytopenic possibly from same vs ETOH use End-stage renal disease on dialysis - Nephrology consulted H/o pancreatitis, alcoholic - wine drinker. Counseled on cessation given her dialysis status and comorbidities Mild bilateral knee osteoarthritis with suspected trace right knee effusion. Chronic back pain Previous gastrointestinal bleed HX Clostridium difficile Cholelithiasis Obesity Trace tricuspid regurgitation with an estimated PAP of 52 mmHg. Arteriovenous shunt Moderate protein calorie malnutrition - Albumin 2.8 Back and shoulder pain s/p fall - PT evaluation +Hemoccult H/o recurrent UGI bleeding, refractory ulcer - H. pylori negative x 2, last endotherapy 01/12/20 (has had 7 EGDs since 2016), past GDA embolization (poor surgical candidate) GERD cirrhosis Hep C Right otalgia - otitis externa, will give cortisporin FEN - Renal PPX - SCDs FULL CODE Dispo - inpatient History of Present Illness History of Present Illness Ms Fernandez is a 64 yo F w/ PMHx ESRD on HD TuThSa, PUD with previous GI bleeding, hypertension, hyperlipidemia, GERD, constipation, rheumatoid arthritis, diabetes, hyperparathyroidism, hep C, cirrhosis, and alcohol abuse p/w weakness, exertional shortness of breath and recently COVID positive. She states about 3 days prior to admit noted diarrhea and dysuria. At dialysis had nausea, vomiting, and was brought [facility] because she could not complete her dialysis. WBC 2.8, which was higher than her previous discharge. CT scan of the abdomen and pelvis was obtained; showed new small pleural effusions, moderate ascites around the liver; was unchanged, hazy density in the mesentery predominantly in the mid abdomen, which could be related to pancreatitis; however, mesenteritis could not be excluded. Her lipase on arrival was 74. Overnight, she was placed on cefepime and Flagyl. C. diff has been ordered given her prior history. Afebrile. Still with abdominal pain and no BM for 36 hours. Tolerating PO well today, asking for an increase in pain medication. to dialysis today. C/o right ear pain. Vitals/I&O Vitals/I&O: Vital Signs Date Time Temp Pulse Resp B/P (MAP) Pulse Ox O2 Delivery O2 Flow Rate FiO2 06/14/20 08:47 99 Room Air 06/14/20 07:14 97.7 81 22 138/65 (89) 97.7 I & O 06/13/20 06/13/20 06/14/20 15:00 23:00 07:00 Intake Total 700 ml 100 ml 300 ml Balance 700 ml 100 ml 300 ml Physical Exam Physical Exam: CONSTITUTIONAL: She is lying in bed. She is cooperative. She is in HD and has some abd discomfort HEENT: Pupils equal and reactive. She has muddy sclerae NECK: Supple, no JVD. LUNGS: Decreased in the bases. HEART: S1, S2. ABDOMEN: Soft, mildly distended, minimal tenderness. There is no guarding, no rebound. EXTREMITIES: Without clubbing, cyanosis, or gross edema. Left extremity fistula without signs of any complications. SKIN: Warm to touch without signs of rash. NEUROLOGIC: She is nonfocal, moves all extremities. PSYCHIATRIC: Affect is appropriate. General: Alert, Cooperative Lungs: Clear Labs Labs: Laboratory Tests Test 06/14/20 03:18 White Blood Count 2.6 x10^3/uL (4.0-11.0) Red Blood Count 2.24 x10^6/uL (3.50-5.40) Hemoglobin 7.4 g/dL (12.0-15.5) Hematocrit 23.0 % (36.0-47.0) Mean Corpuscular Volume 103 fL (79-100) Mean Corpuscular Hemoglobin 33 pg (25-35) Mean Corpuscular Hemoglobin Concent 32 g/dL (31-37) Red Cell Distribution Width 23.0 % (11.5-14.5) Platelet Count 102 x10^3/uL (140-400) Neutrophils (%) (Auto) 65 % (31-73) Lymphocytes (%) (Auto) 13 % (24-48) Monocytes (%) (Auto) 21 % (0-9) Eosinophils (%) (Auto) 0 % (0-3) Basophils (%) (Auto) 1 % (0-3) Neutrophils # (Auto) 1.7 x10^3/uL (1.8-7.7) Lymphocytes # (Auto) 0.3 x10^3/uL (1.0-4.8) Monocytes # (Auto) 0.5 x10^3/uL (0.0-1.1) Eosinophils # (Auto) 0.0 x10^3/uL (0.0-0.7) Basophils # (Auto) 0.0 x10^3/uL (0.0-0.2) Sodium Level 135 mmol/L (136-145) Potassium Level 5.0 mmol/L (3.5-5.1) Chloride Level 96 mmol/L (98-107) Carbon Dioxide Level 30 mmol/L (21-32) Anion Gap 9 (6-14) Blood Urea Nitrogen 54 mg/dL (7-20) Creatinine 5.9 mg/dL (0.6-1.0) Estimated GFR (Cockcroft-Gault) 8.7 BUN/Creatinine Ratio 9 (6-20) Glucose Level 117 mg/dL (70-99) Calcium Level 9.0 mg/dL (8.5-10.1) Total Bilirubin 0.8 mg/dL (0.2-1.0) Aspartate Amino Transf (AST/SGOT) 31 U/L (15-37) Alanine Aminotransferase (ALT/SGPT) 6 U/L (14-59) Alkaline Phosphatase 109 U/L (46-116) Total Protein 8.2 g/dL (6.4-8.2) Albumin 3.1 g/dL (3.4-5.0) Albumin/Globulin Ratio 0.6 (1.0-1.7) Assessment and Plan Assessmemt and Plan Problems Medical Problems: (1) Abdominal pain Status: Acute (2) End stage renal disease Status: Acute (3) Idiopathic sclerosing mesenteritis Status: Acute Comment Review of Relevant I have reviewed the following items tamika (where applicable) has been applied. Medications: Current Medications Medications (Trade) Dose Ordered Sig/Kimberly Route PRN Reason Start Time Stop Time Status Last Admin Dose Admin Ondansetron HCl (Zofran) 4 mg PRN Q4HRS PRN IV NAUSEA/VOMITING 06/13/20 13:00 06/14/20 02:13 Carvedilol (Coreg) 25 mg BIDWMEALS PO 06/13/20 17:00 06/13/20 16:26 Folic Acid (Folic Acid) 0.5 mg DAILY PO 06/13/20 14:00 06/13/20 13:34 Acetaminophen/ Hydrocodone Bitart (Lortab 5/325) 1 tab PRN Q6HRS PRN PO PAIN 06/13/20 19:45 06/14/20 05:37 Fentanyl Citrate (Fentanyl 2ml Vial) 50 mcg PRN Q3HRS PRN IVP PAIN 06/13/20 19:45 06/14/20 08:47 Justicifation of Admission Dx: Justifications for Admission: Justification of Admission Dx: Yes Acute Renal Failure: Serum Cr > 4mg/dL Chronic Renal Failure: Hemodynamic Instability Sepsis: Infection MELY OLVERA MD Jun 14, 2020 11:13
--- NOTE | 2020-06-14 11:24 | PDOC ---
Date of Service: DATE: 06/14/20 TIME: 11:20 Objective: Objective: Per HD nurse - c/o abd pain improved w/ Fentanyl, had some nausea, other staff reported liquid stool. Has been resting. Other notes mention heartburn. Vital Signs: Vital Signs Date Time Temp Pulse Resp B/P (MAP) Pulse Ox O2 Delivery O2 Flow Rate FiO2 06/14/20 08:47 99 Room Air 06/14/20 07:14 97.7 81 22 138/65 (89) 97.7 Labs: Laboratory Tests Test 06/14/20 03:18 White Blood Count 2.6 x10^3/uL Red Blood Count 2.24 x10^6/uL Hemoglobin 7.4 g/dL Hematocrit 23.0 % Mean Corpuscular Volume 103 fL Mean Corpuscular Hemoglobin 33 pg Mean Corpuscular Hemoglobin Concent 32 g/dL Red Cell Distribution Width 23.0 % Platelet Count 102 x10^3/uL Neutrophils (%) (Auto) 65 % Lymphocytes (%) (Auto) 13 % Monocytes (%) (Auto) 21 % Eosinophils (%) (Auto) 0 % Basophils (%) (Auto) 1 % Neutrophils # (Auto) 1.7 x10^3/uL Lymphocytes # (Auto) 0.3 x10^3/uL Monocytes # (Auto) 0.5 x10^3/uL Eosinophils # (Auto) 0.0 x10^3/uL Basophils # (Auto) 0.0 x10^3/uL Sodium Level 135 mmol/L Potassium Level 5.0 mmol/L Chloride Level 96 mmol/L Carbon Dioxide Level 30 mmol/L Anion Gap 9 Blood Urea Nitrogen 54 mg/dL Creatinine 5.9 mg/dL Estimated GFR (Cockcroft-Gault) 8.7 BUN/Creatinine Ratio 9 Glucose Level 117 mg/dL Calcium Level 9.0 mg/dL Total Bilirubin 0.8 mg/dL Aspartate Amino Transf (AST/SGOT) 31 U/L Alanine Aminotransferase (ALT/SGPT) 6 U/L Alkaline Phosphatase 109 U/L Total Protein 8.2 g/dL Albumin 3.1 g/dL Albumin/Globulin Ratio 0.6 PE: GEN: dialyzing in COVID isolation LUNGS: room air HEART: RRR ABD: non-distended NEURO/PSYCH: sleeping, not awakened A/P: Nausea, heartburn, loose stools, chronic abd pain Chronic anemia, ESRD on HD H/o GERD, PUD/UGI bleeding, cirrhosis, Hep C, h/o C Diff, h/o pancreatitis H/o alcohol overuse -- Will return w/ Dr. Faulkner after she finished dialysis. COVID still pending along w/ C Diff. Continue PPI. Justicifation of Admission Dx: Justifications for Admission: Justification of Admission Dx: Yes Acute Renal Failure: Serum Cr > 4mg/dL Chronic Renal Failure: Hemodynamic Instability Sepsis: Infection IRIS SZYMANSKI Jun 14, 2020 11:24
--- NOTE | 2020-06-14 11:44 | PDOC2 ---
CONSULT Date of Consult Date of Consult DATE: 06/14/20 TIME: 11:44 Reason for Consult Reason for Consult: ESRD History of Present Illness Reason for Visit: 65-year-old AA female with a history of pancytopenia, ESRD on hemodialysis and recently COVID positive., frequent hospitalizations She states about 3 days ago, she was having difficulty sleeping and having diarrhea as well . She started feeling dysuria and urgency . She is also c/o nausea, vomiting, and was brought to [facility] because she could not complete her dialysis. Blood pressure was elevated at 197/89. She is seen on HD , c/o abdominal discomfort . She states she believes she passed a little bit of blood with her urine. Past Medical History Cardiovascular: HTN, Hyperlipidemia Pulmonary: No pertinent hx GI: Constipation, GERD, GI bleed, Peptic Ulcer disease, Other Heme/Onc: Anemia NOS Hepatobiliary: Cirrhosis, Hep A/B/C, Other Psych: Addictions Rheumatologic: Rheumatoid arthritis Infectious disease: No pertinent hx Renal/: Chronic renal failure, Hematuria Endocrine: Diabetes, Hyperparathyroidism Past Surgical History Past Surgical History: Cholecystectomy, Tonsillectomy, Hysterectomy, Other Family History Family History: Alcohol Abuse, Cancer, High Cholestrol, Hypertension, Family History Unknown Social History ALCOHOL: other (h/o overuse - tells me not drinking lately) Drugs: None Domestic Violence: Neg Current Problem List Problem List Problems Medical Problems: (1) Abdominal pain Status: Acute (2) End stage renal disease Status: Acute (3) Idiopathic sclerosing mesenteritis Status: Acute Current Medications Current Medications Current Medications Ondansetron HCl (Zofran) 4 mg 1X ONCE IV Last administered on 06/12/20at 13:39; Start 06/12/20 at 13:30; Stop 06/12/20 at 13:31; Status DC Fentanyl Citrate (Fentanyl 2ml Vial) 50 mcg 1X ONCE IV Last administered on 06/12/20at 13:38; Start 06/12/20 at 13:30; Stop 06/12/20 at 13:31; Status DC Fentanyl Citrate (Fentanyl 2ml Vial) 50 mcg 1X ONCE IV Last administered on 06/12/20at 16:28; Start 06/12/20 at 16:30; Stop 06/12/20 at 16:31; Status DC Sodium Chloride 500 ml @ 500 mls/hr 1X ONCE IV ; Start 06/12/20 at 16:30; Stop 06/12/20 at 17:29; Status DC Ondansetron HCl (Zofran) 4 mg PRN Q8HRS PRN IV NAUSEA/VOMITING Last administered on 06/12/20at 18:12; Start 06/12/20 at 16:30; Stop 06/13/20 at 12:52; Status DC Fentanyl Citrate (Fentanyl 2ml Vial) 50 mcg PRN Q2HR PRN IV PAIN Last administered on 06/13/20at 15:36; Start 06/12/20 at 16:30; Stop 06/13/20 at 16:29; Status DC Sodium Chloride 1,000 ml @ 75 mls/hr [id number] IV Last administered on 06/12/20at 23:08; Start 06/12/20 at 16:30; Stop 06/13/20 at 13:31; Status DC Hydralazine HCl (Apresoline Inj) 10 mg 1X ONCE IVP Last administered on 06/12/20at 17:27; Start 06/12/20 at 17:15; Stop 06/12/20 at 17:16; Status DC Cefepime HCl (Maxipime) 1 gm Q24H IVP Last administered on 06/13/20at 23:57; Start 06/13/20 at 01:00; Stop 06/14/20 at 09:40; Status DC Metronidazole 100 ml @ 100 mls/hr Q8HRS IV Last administered on 06/14/20at 05:12; Start 06/13/20 at 01:00; Stop 06/14/20 at 09:40; Status DC Pantoprazole Sodium (PROTONIX VIAL for IV PUSH) 40 mg BIDAC IVP Last administered on 06/13/20at 16:25; Start 06/13/20 at 09:30 Labetalol HCl (Normodyne Iv Push) 20 mg 1X ONCE IVP Last administered on 06/13/20at 11:09; Start 06/13/20 at 11:00; Stop 06/13/20 at 11:04; Status DC Ondansetron HCl (Zofran) 4 mg PRN Q4HRS PRN IV NAUSEA/VOMITING Last administered on 06/14/20at 02:13; Start 06/13/20 at 13:00 Carvedilol (Coreg) 25 mg BIDWMEALS PO Last administered on 06/13/20at 16:26; Start 06/13/20 at 17:00 Folic Acid (Folic Acid) 0.5 mg DAILY PO Last administered on 06/13/20at 13:34; Start 06/13/20 at 14:00 Acetaminophen/ Hydrocodone Bitart (Lortab 5/325) 1 tab PRN Q6HRS PRN PO PAIN Last administered on 06/14/20at 05:37; Start 06/13/20 at 19:45 Fentanyl Citrate (Fentanyl 2ml Vial) 50 mcg PRN Q3HRS PRN IVP PAIN Last administered on 06/14/20at 08:47; Start 06/13/20 at 19:45 Sodium Chloride 1,000 ml @ 1,000 mls/hr Q1H PRN IV hypotension; Start 06/14/20 at 08:25; Stop 06/14/20 at 14:24 Albumin Human 200 ml @ 200 mls/hr 1X PRN PRN IV Hypotension; Start 06/14/20 at 08:30; Stop 06/14/20 at 14:29 Sodium Chloride 1,000 ml @ 400 mls/hr Q2H30M PRN IV PATENCY; Start 06/14/20 at 08:25; Stop 06/14/20 at 20:24 Info (PHARMACY MONITORING -- do not chart) 1 each PRN DAILY PRN MC SEE COMMENTS; Start 06/14/20 at 08:30 Info (PHARMACY MONITORING -- do not chart) 1 each PRN DAILY PRN MC SEE CO MMENTS; Start 06/14/20 at 08:30 Active Scripts Active Ivins 5-325 Tablet (Acetaminophen/Hydrocodone Bitart) 1 Each Tablet 1 Tab PO PRN Q6HRS PRN Feosol (Ferrous Sulfate) 325 Mg Tablet 325 Mg PO BIDWMEALS 60 Days Proair Hfa (Albuterol Sulfate) 8.5 Gm Hfa.aer.ad 2.5 Mg NEB PRN Q2HRS PRN 30 Days Pantoprazole Sodium (Pantoprazole Sodium) 40 Mg Tablet.dr 40 Mg PO DAILYAC 30 Days Reported Carvedilol 25 Mg Tablet 25 Mg PO BIDWMEALS Folic Acid 0.4 Mg Tablet 0.4 Mg PO DAILY Acetaminophen 500 Mg Tablet 1 Tab PO PRN Q6HRS PRN 15 Days Allergies Allergies: Coded Allergies: No Known Drug Allergies (Unverified , 05/11/20) ROS Review of System Per HPI Physical Exam Physical Exam GEN.: No apparent distress. HEENT: OM moist NECK: Supple. LUNGS: Clear to auscultation, non labored HEART: RRR, S1, S2 present. ABDOMEN: Soft, nontender. Positive bowel sounds. EXTREMITIES: No LE edema ,Left extremity fistula without signs of any complications. NEUROLOGIC: grossly normal SKIN: No rash No CVA or SP tenderness, No Carbajal Vital Signs Vital Signs Date Time Temp Pulse Resp B/P (MAP) Pulse Ox O2 Delivery O2 Flow Rate FiO2 06/14/20 08:47 99 Room Air 06/14/20 07:14 97.7 81 22 138/65 (89) 97.7 Assessment & Plan ESRD 2/ 2 DM and HTN, On TTS schedule Seen on HD , tolerting well, continue as ordered Abdominal pain - with possible mesenteritis Recurrent Cdiff -On PO Vanc Nonobstructing calculi in the right kidney with no hydronephrosis or obstructive uropathy seen. COVID 19 - 05/27/2020 positive testing, Pancytopenia - possibly leukopenic from COVID 19, thrombocytopenic possibly from same vs ETOH use H/o pancreatitis, alcoholic - wine drinker. H/o recurrent UGI bleeding, refractory ulcer - H. pylori negative x 2, last endotherapy 01/12/20 (has had 7 EGDs since 2016), past GDA embolization by and surgical evals (poor surgical candidate) GERD, cirrhosis, Hep C, h/o C Diff, h/o pancreatitis Anemia -- Diabetes-Type II, Essential Hypertension- antihypertensives Labs Labs Laboratory Tests Test 06/12/20 13:25 06/12/20 21:10 06/14/20 03:18 White Blood Count 2.8 x10^3/uL (4.0-11.0) 2.6 x10^3/uL (4.0-11.0) Red Blood Count 2.26 x10^6/uL (3.50-5.40) 2.24 x10^6/uL (3.50-5.40) Hemoglobin 7.6 g/dL (12.0-15.5) 7.4 g/dL (12.0-15.5) Hematocrit 22.8 % (36.0-47.0) 23.0 % (36.0-47.0) Mean Corpuscular Volume 101 fL (79-100) 103 fL (79-100) Mean Corpuscular Hemoglobin 34 pg (25-35) 33 pg (25-35) Mean Corpuscular Hemoglobin Concent 33 g/dL (31-37) 32 g/dL (31-37) Red Cell Distribution Width 21.2 % (11.5-14.5) 23.0 % (11.5-14.5) Platelet Count 106 x10^3/uL (140-400) 102 x10^3/uL (140-400) Neutrophils (%) (Auto) 70 % (31-73) 65 % (31-73) Lymphocytes (%) (Auto) 11 % (24-48) 13 % (24-48) Monocytes (%) (Auto) 18 % (0-9) 21 % (0-9) Eosinophils (%) (Auto) 0 % (0-3) 0 % (0-3) Basophils (%) (Auto) 1 % (0-3) 1 % (0-3) Neutrophils # (Auto) 1.9 x10^3/uL (1.8-7.7) 1.7 x10^3/uL (1.8-7.7) Lymphocytes # (Auto) 0.3 x10^3/uL (1.0-4.8) 0.3 x10^3/uL (1.0-4.8) Monocytes # (Auto) 0.5 x10^3/uL (0.0-1.1) 0.5 x10^3/uL (0.0-1.1) Eosinophils # (Auto) 0.0 x10^3/uL (0.0-0.7) 0.0 x10^3/uL (0.0-0.7) Basophils # (Auto) 0.0 x10^3/uL (0.0-0.2) 0.0 x10^3/uL (0.0-0.2) Segmented Neutrophils % 72 % (35-66) Lymphocytes % 9 % (24-48) Monocytes % 18 % (0-10) Basophils % 1 % (0-3) Platelet Estimate Decreased (ADEQUATE) Poikilocytosis Slight Anisocytosis Mod Macrocytosis Slight Sodium Level 134 mmol/L (136-145) 135 mmol/L (136-145) Potassium Level 4.6 mmol/L (3.5-5.1) 5.0 mmol/L (3.5-5.1) Chloride Level 94 mmol/L (98-107) 96 mmol/L (98-107) Carbon Dioxide Level 32 mmol/L (21-32) 30 mmol/L (21-32) Anion Gap 8 (6-14) 9 (6-14) Blood Urea Nitrogen 36 mg/dL (7-20) 54 mg/dL (7-20) Creatinine 4.3 mg/dL (0.6-1.0) 5.9 mg/dL (0.6-1.0) Estimated GFR (Cockcroft-Gault) 12.5 8.7 BUN/Creatinine Ratio 8 (6-20) 9 (6-20) Glucose Level 130 mg/dL (70-99) 117 mg/dL (70-99) Calcium Level 10.0 mg/dL (8.5-10.1) 9.0 mg/dL (8.5-10.1) Magnesium Level 1.9 mg/dL (1.8-2.4) Total Bilirubin 1.1 mg/dL (0.2-1.0) 0.8 mg/dL (0.2-1.0) Aspartate Amino Transf (AST/SGOT) 36 U/L (15-37) 31 U/L (15-37) Alanine Aminotransferase (ALT/SGPT) 16 U/L (14-59) 6 U/L (14-59) Alkaline Phosphatase 129 U/L (46-116) 109 U/L (46-116) Total Protein 8.7 g/dL (6.4-8.2) 8.2 g/dL (6.4-8.2) Albumin 3.3 g/dL (3.4-5.0) 3.1 g/dL (3.4-5.0) Albumin/Globulin Ratio 0.6 (1.0-1.7) 0.6 (1.0-1.7) Lipase 74 U/L (73-393) Glucose (Fingerstick) 118 mg/dL (70-99) Laboratory Tests Test 06/14/20 03:18 White Blood Count 2.6 x10^3/uL (4.0-11.0) Red Blood Count 2.24 x10^6/uL (3.50-5.40) Hemoglobin 7.4 g/dL (12.0-15.5) Hematocrit 23.0 % (36.0-47.0) Mean Corpuscular Volume 103 fL (79-100) Mean Corpuscular Hemoglobin 33 pg (25-35) Mean Corpuscular Hemoglobin Concent 32 g/dL (31-37) Red Cell Distribution Width 23.0 % (11.5-14.5) Platelet Count 102 x10^3/uL (140-400) Neutrophils (%) (Auto) 65 % (31-73) Lymphocytes (%) (Auto) 13 % (24-48) Monocytes (%) (Auto) 21 % (0-9) Eosinophils (%) (Auto) 0 % (0-3) Basophils (%) (Auto) 1 % (0-3) Neutrophils # (Auto) 1.7 x10^3/uL (1.8-7.7) Lymphocytes # (Auto) 0.3 x10^3/uL (1.0-4.8) Monocytes # (Auto) 0.5 x10^3/uL (0.0-1.1) Eosinophils # (Auto) 0.0 x10^3/uL (0.0-0.7) Basophils # (Auto) 0.0 x10^3/uL (0.0-0.2) Sodium Level 135 mmol/L (136-145) Potassium Level 5.0 mmol/L (3.5-5.1) Chloride Level 96 mmol/L (98-107) Carbon Dioxide Level 30 mmol/L (21-32) Anion Gap 9 (6-14) Blood Urea Nitrogen 54 mg/dL (7-20) Creatinine 5.9 mg/dL (0.6-1.0) Estimated GFR (Cockcroft-Gault) 8.7 BUN/Creatinine Ratio 9 (6-20) Glucose Level 117 mg/dL (70-99) Calcium Level 9.0 mg/dL (8.5-10.1) Total Bilirubin 0.8 mg/dL (0.2-1.0) Aspartate Amino Transf (AST/SGOT) 31 U/L (15-37) Alanine Aminotransferase (ALT/SGPT) 6 U/L (14-59) Alkaline Phosphatase 109 U/L (46-116) Total Protein 8.2 g/dL (6.4-8.2) Albumin 3.1 g/dL (3.4-5.0) Albumin/Globulin Ratio 0.6 (1.0-1.7) Review All relevant outside records, renal labs, imaging studies, telemetry/EKG's were reviewed. Images Images CT scan abdomen New small pleural effusions bilaterally. Moderate ascites predominantly around the liver which is unchanged. Nonobstructing calculi in the right kidney with no hydronephrosis or obstructive uropathy seen. Hazy density in the mesentery predominantly in the mid abdomen which could be related to pancreatitis however mesenteritis cannot be excluded. Soft tissue edema consistent with anasarca. GINO TAN MD Jun 14, 2020 11:44
[2020-06-14] MEDS ORDERED: NEOMYCIN/POLYMYXIN/HC OTIC SUSPENSION 10ML BOTTLE. AD ONE (14:00)
[2020-06-14] MEDS: FOLIC ACID 1 MG TABLET. PO SCH (14:00)
[2020-06-14 15:20] VITALS: BP 130/62
--- NOTE | 2020-06-14 16:44 | NUR ---
SW following. Reviewed chart and discussed with RN. Pt from home with [facility]BS. Discharge plan is home with resumption of out-patient dialysis. Pt refusing SNU on discharge. Pt remains COVID pending. Pt positive for C-diff. SW to continue following.
[2020-06-14] MEDS: VANCOMYCIN 125 MG/2.5 ML ORAL SOLUTION. PO SCH ×2 (17:45→20:33)
[2020-06-14 19:00] VITALS: BP 118/58
[2020-06-14 23:13] VITALS: BP 106/53
[2020-06-15 03:00] VITALS: BP 127/57
[2020-06-15] MEDS: fentaNYL PF VIAL 100 MCG/2 ML VIAL IVP PRN (03:27)
[2020-06-15 07:00] VITALS: BP 117/58
[2020-06-15] MEDS: PANTOPRAZOLE IV PUSH 40 MG VIAL. IVP SCH (07:53)
[2020-06-15] MEDS: FOLIC ACID 1 MG TABLET. PO SCH (07:54)
[2020-06-15] MEDS: VANCOMYCIN 125 MG/2.5 ML ORAL SOLUTION. PO SCH ×2 (07:54→12:16)
[2020-06-15] MEDS: CARVEDILOL 12.5 MG TABLET. PO SCH (07:56)
--- NOTE | 2020-06-15 09:20 | PDOC ---
DATE OF SERVICE DATE: 06/15/20 TIME: 09:19 SUBJECTIVE ROS Stable, feeling better OBJECTIVE Vital Signs Vital Signs Date Time Temp Pulse Resp B/P (MAP) Pulse Ox O2 Delivery O2 Flow Rate FiO2 06/15/20 07:56 78 117/58 06/15/20 07:00 97.9 18 98 Room Air 97.9 I & 0 Intake and Output 06/15/20 07:00 Intake Total 320 ml Balance 320 ml Intake Oral 320 ml # Voids 1 PHYSICAL EXAM Physical Exam GEN.: No apparent distress. HEENT: OM moist NECK: Supple. LUNGS: Clear to auscultation, non labored HEART: RRR, S1, S2 present. ABDOMEN: Soft, nontender. Positive bowel sounds. EXTREMITIES: No LE edema ,Left extremity fistula without signs of any complications. NEUROLOGIC: grossly normal SKIN: No rash No CVA or SP tenderness, No Carbajal DIAGNOSIS/ASSESSMENT Assessment & Plan ESRD 2/ 2 DM and HTN, On TTS schedule No indication for HD today Abdominal pain - with possible mesenteritis Recurrent Cdiff -On PO Vanc Nonobstructing calculi in the right kidney with no hydronephrosis or obstructive uropathy seen. COVID 19 - 05/27/2020 positive testing, Positive on 06/12 as well Pancytopenia - possibly leukopenic from COVID 19, thrombocytopenic possibly from same vs ETOH use H/o pancreatitis, alcoholic - wine drinker. H/o recurrent UGI bleeding, refractory ulcer - H. pylori negative x 2, last endotherapy 01/12/20 (has had 7 EGDs since 2016), past GDA embolization by and surgical evals (poor surgical candidate) GERD, cirrhosis, Hep C, h/o C Diff, h/o pancreatitis Anemia -- Diabetes-Type II, Essential Hypertension- antihypertensives COMMENT/RELEVANT DATA Meds Current Medications Medications (Trade) Dose Ordered Sig/Kimberly Start Time Stop Time Status Last Admin Dose Admin Acetaminophen/ Hydrocodone Bitart (Lortab 5/325) 1 tab PRN Q6HRS PRN 06/13/20 19:45 06/14/20 20:33 1 TAB Albumin Human 200 ml @ 200 mls/hr 1X PRN PRN 06/14/20 08:30 06/14/20 14:29 DC Carvedilol (Coreg) 25 mg BIDWMEALS 06/13/20 17:00 06/15/20 07:56 25 MG Cefepime HCl (Maxipime) 1 gm Q24H 06/13/20 01:00 06/14/20 09:40 DC 06/13/20 23:57 1 GM Fentanyl Citrate (Fentanyl 2ml Vial) 50 mcg PRN Q3HRS PRN 06/13/20 19:45 06/15/20 03:27 50 MCG Folic Acid (Folic Acid) 0.5 mg DAILY 06/13/20 14:00 06/15/20 07:54 0.5 MG Hydralazine HCl (Apresoline Inj) 10 mg 1X ONCE 06/12/20 17:15 06/12/20 17:16 DC 06/12/20 17:27 10 MG Info (PHARMACY MONITORING -- do not chart) 1 each PRN DAILY PRN 06/14/20 08:30 Labetalol HCl (Normodyne Iv Push) 20 mg 1X ONCE 06/13/20 11:00 06/13/20 11:04 DC 06/13/20 11:09 20 MG Metronidazole 100 ml @ 100 mls/hr Q8HRS 06/13/20 01:00 06/14/20 09:40 DC 06/14/20 05:12 100 MLS/HR Neomycin/ Polymyxin/ Hydrocortisone (Cortisporin Otic) 1 drop 1X ONCE 06/14/20 14:00 06/14/20 14:03 DC 06/14/20 17:44 1 DROP Ondansetron HCl (Zofran) 4 mg PRN Q4HRS PRN 06/13/20 13:00 06/14/20 02:13 4 MG Pantoprazole Sodium (PROTONIX VIAL for IV PUSH) 40 mg BIDAC 06/13/20 09:30 06/15/20 07:53 40 MG Sodium Chloride 1,000 ml @ 400 mls/hr Q2H30M PRN 06/14/20 08:25 06/14/20 20:24 DC Vancomycin HCl (Vancomycin Oral Solution) 125 mg [id number] 06/14/20 17:00 06/15/20 07:54 125 MG Results All relevant outside records, renal labs, imaging studies, telemetry/EKG's were reviewed. Justicifation of Admission Dx: Justifications for Admission: Justification of Admission Dx: Yes Acute Renal Failure: Serum Cr > 4mg/dL Chronic Renal Failure: Hemodynamic Instability Sepsis: Infection GINO TAN MD Jun 15, 2020 09:20
--- NOTE | 2020-06-15 09:21 | PDOC ---
Infectious Disease Note Subjective Subjective Much better today. Min discomfort No stools No F/c/s/N/V/D/SOA ROS ROS o/w neg Vital Sign Vital Signs Vital Signs Date Time Temp Pulse Resp B/P (MAP) Pulse Ox O2 Delivery O2 Flow Rate FiO2 06/15/20 07:56 78 117/58 06/15/20 07:00 97.9 18 98 Room Air 97.9 Physical Exam PHYSICAL EXAM CONSTITUTIONAL: She is lying in bed. She is cooperative. Looks well HEENT: Pupils equal and reactive. She has muddy sclerae NECK: Supple, no JVD. LUNGS: Decreased in the bases. HEART: S1, S2. ABDOMEN: Soft, mildly distended, minimal tenderness. There is no guarding, no rebound. EXTREMITIES: Without clubbing, cyanosis, or gross edema. Left extremity fistula without signs of any complications. SKIN: Warm to touch without signs of rash. NEUROLOGIC: She is nonfocal, moves all extremities. PSYCHIATRIC: Affect is appropriate. Objective Assessment C-diff + 06/13 on po Vanc N/V Previous diarrhea dysuria Pancytopenia CKD on HD H/o COVID Plan Plan of Care Would dose Po vanc for 14 days total ID to sign off BECKY METZGER MD Jun 15, 2020 09:21
[2020-06-15] MEDS: HYDROcodone/APAP 5/325MG 1 TAB TABLET PO PRN (09:44)
[2020-06-15] MEDS ORDERED: HYDR-3164 PO (10:06)
[2020-06-15] MEDS ORDERED: VANC500V PO (10:06)
--- NOTE | 2020-06-15 10:11 | SNU/HH DC ---
DISCHARGE WITH HOME HEALTH DISCHARGE INFORMATION: Discharge Date: Jun 15, 2020 Final Diagnosis: Problems Medical Problems: (1) Abdominal pain Status: Acute (2) End stage renal disease Status: Acute (3) Idiopathic sclerosing mesenteritis Status: Acute Condition on Discharge: Stable CODE STATUS: Code Status: Full HOME HEALTH: Face to Face: I certify this patient is under my care and that I, or a nurse practitioner or physician's assistant printer floor covering working with me, had a face to face encounter that meets the physician face to face encounter requirements with this patient on 06/15/2020. 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 POST DISCHARGE ORDERS: Activity Instructions for Disc: Activity as tolerated Weight Bearing Status after Di: Other, see below DIET AFTER DISCHARGE: Renal Wound/Incision Care: No wound care needed CHECKS AFTER DISCHARGE: Checks after discharge: Check blood press - daily, Check blood sugar, ac/hs, Check your Temp as needed, Weigh Yourself Daily TREATMENT/EQUIPMENT ORDERS: Adaptive Equipment Issued: None CERTIFICATION STATEMENT: Certification Statement: Certification Statement: Based on the above finding, I certify that this patient is confined to the home and needs intermittent senior living care, physical therapy and/or speech therapy, or continues to need occupational therapy.~ This patient is under my care, and I have initiated the establishment of the plan of care.~ This patient will be followed by myself or a community physician who will periodically review the plan of care. Home Meds Active Scripts Vancomycin Hcl (VANCOMYCIN HCL) 500 Mg Vial, 125 MG PO [id number] for C difficile for 14 Days, #56 EACH Prov:MELY OLVERA MD 06/15/20 Hydrocodone/Apap 5-325 (NORCO 5-325 TABLET) 1 Each Tablet, 1 TAB PO PRN Q6HRS PRN for PAIN for 6 Days, #20 TAB 0 Refills Prov:MELY OLVERA MD 06/15/20 Ferrous Sulfate (FEOSOL) 325 Mg Tablet, 325 MG PO BIDWMEALS for anemia for 60 Days, #120 TAB Prov:BERNARDO NG MD 03/08/20 Albuterol Sulfate (Proair Hfa) 8.5 Gm Hfa.aer.ad, 2.5 MG NEB PRN Q2HRS PRN for SOB / WHILE AWAKE for 30 Days, #30 INHALER Prov:ASHIA MOSS MD 09/27/19 Pantoprazole Sodium (PANTOPRAZOLE SODIUM ) 40 Mg Tablet.dr, 40 MG PO DAILYAC for Bleeding ulcer for 30 Days, #30 TAB.SR 5 Refills Prov:MELY OLVERA MD 07/04/19 Reported Medications Carvedilol (CARVEDILOL) 25 Mg Tablet, 25 MG PO BIDWMEALS for CARDIAC, TAB 03/05/20 Folic Acid (FOLIC ACID) 0.4 Mg Tablet, 0.4 MG PO DAILY for supplement, TAB 03/05/20 Acetaminophen (ACETAMINOPHEN) 500 Mg Tablet, 1 TAB PO PRN Q6HRS PRN for pain or fever for 15 Days, #60 TAB 0 Refills 12/30/19 MELY OLVERA MD Jun 15, 2020 10:10
--- NOTE | 2020-06-15 10:11 | PDOC ---
[employer] PROGRESS NOTE Date of Service DOS: DATE: 06/15/20 TIME: 10:11 Chief Complaint Chief Complaint A/P: Abdominal pain - with possible mesenteritis, was on cefepime + flagyl. ID and GI consulted. His recurrent C. difficile, will be on 14 days of oral vancomycin Shortness of breath - likely related to mild uremia, fluid overload, symptomatic anemia. COVID 19 - 05/27/2020 positive testing, again on 06/14/2020 positive Acute anemia - Hb 7.6 Pancytopenia - possibly leukopenic from COVID 19, thrombocytopenic possibly from same vs ETOH use End-stage renal disease on dialysis - Nephrology consulted H/o pancreatitis, alcoholic - wine drinker. Counseled on cessation given her dialysis status and comorbidities Mild bilateral knee osteoarthritis with suspected trace right knee effusion. Chronic back pain Previous gastrointestinal bleed HX Clostridium difficile Cholelithiasis Obesity Trace tricuspid regurgitation with an estimated PAP of 52 mmHg. Arteriovenous shunt Moderate protein calorie malnutrition - Albumin 2.8 Back and shoulder pain s/p fall - PT evaluation +Hemoccult H/o recurrent UGI bleeding, refractory ulcer - H. pylori negative x 2, last endotherapy 01/12/20 (has had 7 EGDs since 2016), past GDA embolization (poor surgical candidate) GERD cirrhosis Hep C Right otalgia - otitis externa, will give cortisporin FEN - Renal PPX - SCDs FULL CODE Dispo - inpatient History of Present Illness History of Present Illness Ms Fernandez is a 64 yo F w/ PMHx ESRD on HD TuThSa, PUD with previous GI bleeding, hypertension, hyperlipidemia, GERD, constipation, rheumatoid arthritis, diabetes, hyperparathyroidism, hep C, cirrhosis, and alcohol abuse p/w weakness, exertional shortness of breath and recently COVID positive. She states about 3 days prior to admit noted diarrhea and dysuria. At dialysis had nausea, vomiting, and was brought to [facility] because she could not complete her dialysis. WBC 2.8, which was higher than her previous discharge. CT scan of the abdomen and pelvis was obtained; showed new small pleural effusions, moderate ascites around the liver; was unchanged, hazy density in the mesentery predominantly in the mid abdomen, which could be related to pancreatitis; however, mesenteritis could not be excluded. Her lipase on arrival was 74. Overnight, she was placed on cefepime and Flagyl. C. diff has been ordered given her prior history. 06/14: Afebrile. Still with abdominal pain and no BM for 36 hours. Tolerating PO well today, asking for an increase in pain medication. to dialysis today. C/o right ear pain. C. difficile PCR from 06/13/2020 returned positive. Repeat COVID-19 PCR also returned positive. She was restarted on oral vancomycin and Protonix and she is feeling better though she still has abdominal pain she feels is similar to her chronic pain. Her appetite is increased. Plan: 14 days 4 times daily 125 mg vancomycin Home health Monitor O2 levels, her COVID-19 was diagnosed over 14 days ago initially and she is in the convalescent phase this may be residual Vitals/I&O Vitals/I&O: Vital Signs Date Time Temp Pulse Resp B/P (MAP) Pulse Ox O2 Delivery O2 Flow Rate FiO2 06/15/20 09:44 98 Room Air 06/15/20 07:56 78 117/58 06/15/20 07:00 97.9 18 97.9 I & O 06/14/20 06/14/20 06/15/20 15:00 23:00 07:00 Intake Total 220 ml 100 ml Balance 220 ml 100 ml Physical Exam Physical Exam: CONSTITUTIONAL: She is lying in bed. She is cooperative. Looks well HEENT: Pupils equal and reactive. She has muddy sclerae NECK: Supple, no JVD. LUNGS: Decreased in the bases. HEART: S1, S2. ABDOMEN: Soft, mildly distended, minimal tenderness. There is no guarding, no rebound. EXTREMITIES: Without clubbing, cyanosis, or gross edema. Left extremity fistula without signs of any complications. SKIN: Warm to touch without signs of rash. NEUROLOGIC: She is nonfocal, moves all extremities. PSYCHIATRIC: Affect is appropriate. General: Alert, Cooperative Lungs: Clear Assessment and Plan Assessmemt and Plan Problems Medical Problems: (1) Abdominal pain Status: Acute (2) End stage renal disease Status: Acute (3) Idiopathic sclerosing mesenteritis Status: Acute Comment Review of Relevant I have reviewed the following items tamika (where applicable) has been applied. Medications: Current Medications Medications (Trade) Dose Ordered Sig/Kimberly Route PRN Reason Start Time Stop Time Status Last Admin Dose Admin Neomycin/ Polymyxin/ Hydrocortisone (Cortisporin Otic) 1 drop 1X ONCE AD 06/14/20 14:00 06/14/20 14:03 DC 06/14/20 17:44 Vancomycin HCl (Vancomycin Oral Solution) 125 mg [id number] PO 06/14/20 17:00 06/15/20 07:54 Justicifation of Admission Dx: Justifications for Admission: Justification of Admission Dx: Yes Acute Renal Failure: Serum Cr > 4mg/dL Chronic Renal Failure: Hemodynamic Instability Sepsis: Infection MELY OLVERA MD Jun 15, 2020 10:11
--- NOTE | 2020-06-15 10:14 | PDOC ---
Date of Service: DATE: 06/15/20 TIME: 10:10 Subjective: Subjective: Feels better - wants to eat more. Objective: Objective: Tmax 99.5 Vital Signs: Vital Signs Date Time Temp Pulse Resp B/P (MAP) Pulse Ox O2 Delivery O2 Flow Rate FiO2 06/15/20 09:44 98 Room Air 06/15/20 07:56 78 117/58 06/15/20 07:00 97.9 18 97.9 PE: GEN: NAD - looks better today - in COVID isolation LUNGS: room air HEART: RRR ABD: non-distended NEURO/PSYCH: A & O 3 A/P: COVID PCR + Recurrent C Diff Chronic anemia, ESRD on HD H/o GERD, PUD/UGI bleeding, cirrhosis, Hep C, h/o pancreatitis/alcohol overuse -- Continue vanco for C Diff. Okay to ADAT. PO PPI. Justicifation of Admission Dx: Justifications for Admission: Justification of Admission Dx: Yes Acute Renal Failure: Serum Cr > 4mg/dL Chronic Renal Failure: Hemodynamic Instability Sepsis: Infection IRIS SZYMANSKI Jun 15, 2020 10:14
[2020-06-15 11:18] VITALS: BP 112/57
[2020-06-15] MEDS ORDERED: PANTOPRAZOLE 40 MG TABLET.DR. PO SCH (11:30)
[2020-06-15] MEDS ORDERED: FERROUS SULFATE 325 MG TABLET. PO SCH (12:00)
--- NOTE | 2020-06-15 12:12 | PDOC3 ---
Discharge Summary Visit Information Date of Admission: Jun 12, 2020 Date of Discharge: Jun 15, 2020 Admitting Diagnosis: Abdominal pain Final Diagnosis Problems Medical Problems: (1) Abdominal pain Status: Acute (2) End stage renal disease Status: Acute (3) Idiopathic sclerosing mesenteritis Status: Acute Brief Hospital Course Allergies Allergies Coded Allergies Type Severity Reaction Last Updated Verified No Known Drug Allergies 05/11/20 No Vital Signs Vital Signs Date Time Temp Pulse Resp B/P (MAP) Pulse Ox O2 Delivery O2 Flow Rate FiO2 06/15/20 11:18 97.9 70 18 112/57 (75) 97 Room Air 97.9 Lab Results Laboratory Tests Test 06/13/20 19:30 06/14/20 03:18 Clostridium difficile Toxin (PCR) Positive (NEGATIVE) White Blood Count 2.6 x10^3/uL (4.0-11.0) Red Blood Count 2.24 x10^6/uL (3.50-5.40) Hemoglobin 7.4 g/dL (12.0-15.5) Hematocrit 23.0 % (36.0-47.0) Mean Corpuscular Volume 103 fL (79-100) Mean Corpuscular Hemoglobin 33 pg (25-35) Mean Corpuscular Hemoglobin Concent 32 g/dL (31-37) Red Cell Distribution Width 23.0 % (11.5-14.5) Platelet Count 102 x10^3/uL (140-400) Neutrophils (%) (Auto) 65 % (31-73) Lymphocytes (%) (Auto) 13 % (24-48) Monocytes (%) (Auto) 21 % (0-9) Eosinophils (%) (Auto) 0 % (0-3) Basophils (%) (Auto) 1 % (0-3) Neutrophils # (Auto) 1.7 x10^3/uL (1.8-7.7) Lymphocytes # (Auto) 0.3 x10^3/uL (1.0-4.8) Monocytes # (Auto) 0.5 x10^3/uL (0.0-1.1) Eosinophils # (Auto) 0.0 x10^3/uL (0.0-0.7) Basophils # (Auto) 0.0 x10^3/uL (0.0-0.2) Sodium Level 135 mmol/L (136-145) Potassium Level 5.0 mmol/L (3.5-5.1) Chloride Level 96 mmol/L (98-107) Carbon Dioxide Level 30 mmol/L (21-32) Anion Gap 9 (6-14) Blood Urea Nitrogen 54 mg/dL (7-20) Creatinine 5.9 mg/dL (0.6-1.0) Estimated GFR (Cockcroft-Gault) 8.7 BUN/Creatinine Ratio 9 (6-20) Glucose Level 117 mg/dL (70-99) Calcium Level 9.0 mg/dL (8.5-10.1) Total Bilirubin 0.8 mg/dL (0.2-1.0) Aspartate Amino Transf (AST/SGOT) 31 U/L (15-37) Alanine Aminotransferase (ALT/SGPT) 6 U/L (14-59) Alkaline Phosphatase 109 U/L (46-116) Total Protein 8.2 g/dL (6.4-8.2) Albumin 3.1 g/dL (3.4-5.0) Albumin/Globulin Ratio 0.6 (1.0-1.7) Brief Hospital Course Ms Fernandez is a 64 yo F w/ PMHx ESRD on HD TuThSa, PUD with previous GI bleeding, hypertension, hyperlipidemia, GERD, constipation, rheumatoid arthritis, diabetes, hyperparathyroidism, hep C, cirrhosis, and alcohol abuse p/w weakness, exertional shortness of breath and recently COVID positive. She states about 3 days prior to admit noted diarrhea and dysuria. At dialysis had nausea, vomiting, and was brought to [facility] because she could not complete her dialysis. WBC 2.8, which was higher than her previous discharge. CT scan of the abdomen and pelvis was obtained; showed new small pleural effusions, moderate ascites around the liver; was unchanged, hazy density in the mesentery p redominantly in the mid abdomen, which could be related to pancreatitis; however, mesenteritis could not be excluded. Her lipase on arrival was 74. Overnight, she was placed on cefepime and Flagyl. C. diff has been ordered given her prior history. 06/14: Afebrile. Still with abdominal pain and no BM for 36 hours. Tolerating PO well today, asking for an increase in pain medication. to dialysis today. C/o right ear pain. C. difficile PCR from 06/13/2020 returned positive. Repeat COVID-19 PCR also returned positive. She was restarted on oral vancomycin and Protonix and she is feeling better though she still has abdominal pain she feels is similar to her chronic pain. Her appetite is increased. Problem list: Abdominal pain - with possible mesenteritis, was on cefepime + flagyl. ID and GI consulted. His recurrent C. difficile, will be on 14 days of oral vancomycin Shortness of breath - likely related to mild uremia, fluid overload, symptomatic anemia. COVID 19 - 05/27/2020 positive testing, again on 06/14/2020 positive Acute anemia - Hb 7.6 Pancytopenia - possibly leukopenic from COVID 19, thrombocytopenic possibly from same vs ETOH use End-stage renal disease on dialysis - Nephrology consulted H/o pancreatitis, alcoholic - wine drinker. Counseled on cessation given her dialysis status and comorbidities Mild bilateral knee osteoarthritis with suspected trace right knee effusion. Chronic back pain Previous gastrointestinal bleed HX Clostridium difficile Cholelithiasis Obesity Trace tricuspid regurgitation with an estimated PAP of 52 mmHg. Arteriovenous shunt Moderate protein calorie malnutrition - Albumin 2.8 Back and shoulder pain s/p fall - PT evaluation +Hemoccult H/o recurrent UGI bleeding, refractory ulcer - H. pylori negative x 2, last endotherapy 01/12/20 (has had 7 EGDs since 2016), past GDA embolization (poor surgical candidate) GERD cirrhosis Hep C Right otalgia - otitis externa, will give cortisporin Consults; ID, GI, nephrology Plan: 14 days 4 times daily 125 mg vancomycin Home health Monitor O2 levels, her COVID-19 was diagnosed over 14 days ago initially and she is in the convalescent phase this may be residual Discharge Information Condition at Discharge: Improved Follow Up: Weeks (1) Disposition/Orders: D/C to Home w/ HH Scheduled Carvedilol (Carvedilol) 25 Mg Tablet, 25 MG PO BIDWMEALS for CARDIAC, (Reported) Entered as Reported by: MY NÚÑEZ on 03/05/20 5293 Last Action: Converted on 06/13/20 1253 by MELY OLVERA MD Ferrous Sulfate (Feosol) 325 Mg Tablet, 325 MG PO BIDWMEALS for anemia for 60 Days, #120 Prescribed by: BERNARDO NG MD on 03/08/20 1050 Folic Acid (Folic Acid) 0.4 Mg Tablet, 0.4 MG PO DAILY for supplement, ( Reported) Entered as Reported by: MY NÚÑEZ on 03/05/20 1847 Last Action: Converted on 06/13/20 1253 by MELY OLVERA MD Pantoprazole Sodium (Pantoprazole Sodium ) 40 Mg Tablet.dr, 40 MG PO DAILYAC for Bleeding ulcer for 30 Days, #30 Ref 5 Prescribed by: MELY OLVERA MD on 07/04/19 1457 Vancomycin Hcl (Vancomycin Hcl) 500 Mg Vial, 125 MG PO [id number] for C difficile for 14 Days, #56 Prescribed by: MELY OLVERA MD on 06/15/20 1006 Scheduled PRN Acetaminophen (Acetaminophen) 500 Mg Tablet, 1 TAB PO PRN Q6HRS PRN for pain or fever for 15 Days, #60 Ref 0 (Reported) Entered as Reported by: VIOLETTA LINARES on 12/30/19 1038 Albuterol Sulfate (Proair Hfa) 8.5 Gm Hfa.aer.ad, 2.5 MG NEB PRN Q2HRS PRN for SOB / WHILE AWAKE for 30 Days, #30 Prescribed by: ASHIA MOSS MD on 09/27/19 1601 Hydrocodone/Apap 5-325 (Whiting 5-325 Tablet) 1 Each Tablet, 1 TAB PO PRN Q6HRS PRN for PAIN for 6 Days, #20 Ref 0 Prescribed by: MELY OLVERA MD on 06/15/20 1008 Justicifation of Admission Dx: Justifications for Admission: Justification of Admission Dx: Yes Acute Renal Failure: Serum Cr > 4mg/dL Chronic Renal Failure: Hemodynamic Instability Sepsis: Infection MELY OLVERA MD Jun 15, 2020 12:12
--- NOTE | 2020-06-15 16:25 | NUR ---
Discharge Note: CESAR AGEE [address] Discharge instructions and discharge home medications reviewed with Patient and a copy given. All questions have been answered and understanding verbalized. The following instructions and handouts were given: C diff, vancomycin, COVID 19 discharge instructions. Patient discharged to home with self care via wheelchair.
--- NOTE | 2020-06-15 17:25 | NUR ---
SW following. Reviewed chart and discussed with RN. Pt from home with HCBS. Pt COVID positive and CDIFF positive. Pt ready for discharge today. SW phoned and faxed discharge orders to [facility], , (fax) per pt being COVID positive. Pt to resume out-patient dialysis. No further SW needs at this time.
[2020-06-15] MEDS ORDERED: LACTOBACILLUS RHAMNOSUS GG 1 CAPSULE. PO SCH (21:00)
[2020-07-14] MEDS ORDERED: HYDR-2769 PO (02:45)
== END 2020-06-15 16:27 | disposition home health service (06) | DRG 393 ==
LOC: ER 12:54 → ED HOLD 16:33 → 6 SOUTH 19:07 → 2 NORTH 20:40 → 6 SOUTH 22:58
PROVIDERS: ADMIT Internal Medicine; ATTEND Internal Medicine
PROC: 5A1D70Z Performance of Urinary Filtration, Intermittent, Less than 6 Hours Per Day (ICD-10-PCS; principal; 2020-06-14)
DX: K65.4 Sclerosing mesenteritis (principal); U07.1 COVID-19; N18.6 End stage renal disease; A04.71 Enterocolitis due to Clostridium difficile, recurrent; E44.0 Moderate protein-calorie malnutrition; I12.0 Hypertensive chronic kidney disease with stage 5 chronic kidney disease or end stage renal disease; R18.8 Other ascites; D61.818 Other pancytopenia; J90 Pleural effusion, not elsewhere classified; K21.9 Gastro-esophageal reflux disease without esophagitis; E11.22 Type 2 diabetes mellitus with diabetic chronic kidney disease; K74.60 Unspecified cirrhosis of liver; N20.0 Calculus of kidney; E78.5 Hyperlipidemia, unspecified; M06.9 Rheumatoid arthritis, unspecified; E21.3 Hyperparathyroidism, unspecified; G89.29 Other chronic pain; B19.20 Unspecified viral hepatitis C without hepatic coma; E87.70 Fluid overload, unspecified; M17.0 Bilateral primary osteoarthritis of knee; K80.20 Calculus of gallbladder without cholecystitis without obstruction; E66.9 Obesity, unspecified; H60.90 Unspecified otitis externa, unspecified ear; H92.01 Otalgia, right ear; B96.89 Other specified bacterial agents as the cause of diseases classified elsewhere; W19.XXXA Unspecified fall, initial encounter; Y93.89 Activity, other specified; Y92.89 Other specified places as the place of occurrence of the external cause; Y99.8 Other external cause status; Z71.89 Other specified counseling; Z91.19 Patient's noncompliance with other medical treatment and regimen; Z87.440 Personal history of urinary (tract) infections; Z87.11 Personal history of peptic ulcer disease; Z90.711 Acquired absence of uterus with remaining cervical stump; Z83.3 Family history of diabetes mellitus; Z86.19 Personal history of other infectious and parasitic diseases; Z87.442 Personal history of urinary calculi; Z90.49 Acquired absence of other specified parts of digestive tract; Z99.2 Dependence on renal dialysis; Z68.32 Body mass index [BMI] 32.0-32.9, adult; Z82.49 Family history of ischemic heart disease and other diseases of the circulatory system
CPT/HCPCS: 36415; 74176; 80053; 82962; 83690; 83735; 85007; 85025; 87493; 93005; 96374; 96375; 96376; 99285; C9113; J0360; J0692; J2405; J3010; J3490; J7030; G0378; U0003-CS

== ENCOUNTER → 2020-06-30 | Outpatient (CLI) | payer MEDICARE, MEDICAID ==
[2020-06-15 11:18] VITALS: BP 112/57
--- NOTE | 2020-06-30 16:17 | RAD ---
Right lower extremity venous duplex study 06/30/2020 4:14 PM Clinical History: Reason: rt leg pain/swelling / Spl. Instructions: / History: Technique: Using a combination of real time ultrasound imaging and color-flow and pulse Doppler imaging techniques, including spectral analysis, graded compression and augmentation, duplex evaluation of the deep venous system of the right lower extremity was performed. Multiple images were obtained. Findings: There is no sonographic evidence of deep venous thrombosis involving the visualized deep venous structures of the right lower extremity. Subcutaneous edema in the right thigh noted. Impression: No evidence of deep venous thrombosis involving the right lower extremity Electronically signed by: Rashawn Garcia MD (06/30/2020 4:14 PM) [id number]
== END | disposition home or self-care (01) ==
LOC: US 14:33
PROVIDERS: ATTEND Internal Medicine Nephrology
DX: R22.41 Localized swelling, mass and lump, right lower limb (principal); M79.604 Pain in right leg
CPT/HCPCS: 93971

== ENCOUNTER 2020-07-05 12:47 | Inpatient (IN) | payer MEDICARE, MEDICAID ==
[~2020-07-05] VITALS: Ht 157.5 cm; Wt 89.1 kg
--- NOTE | 2020-07-05 13:11 | PHYS DOC ---
Past Medical History Past Medical History: Anemia, Diabetes-Type II, GERD, GI Bleed, Hypertension, Kidney Stone, Pancreatitis, Pneumonia, Renal Failure, Other Additional Past Medical Histor: Ulcers,ESRD,C-DIFF,CIRRHOSIS Past Surgical History: Cholecystectomy, Other Additional Past Surgical Histo: LEFT UPPER dialysis shunt Smoking Status: Never Smoker Alcohol Use: None Drug Use: None General Adult HPI: HPI: Patient is a 65 year old female who presents with comes by EMS from her apartment building with chronic bilateral lower extremity sharp shooting pains that go from her upper thighs and down into her feet. States at times it goes from the back also. She states is worse with movement. Patient was here recently and had a venous ultrasound done on the right leg on June 30. The results showed no DVT. Patient states her right leg does hurt worse than the left leg. She has bilateral lower leg 2-3+ pitting edema. She rates her sharp shooting pain a 10 out of 10. States she cannot ambulate or move her legs. Patient is supposed to go to dialysis today but due to the pain she came to the emergency room. She has dialysis on Saturday, , Saturdays. She has a history of GERD, GI bleed, anemia, diabetes type 2, end-stage renal disease, renal failure, C. difficile, cirrhosis, cholecystectomy, pancreatitis, pneumonia. Patient is very tearful. Review of Systems: Review of Systems: Constitutional: Denies fever or chills. [] Eyes: Denies change in visual acuity. [] HENT: Denies nasal congestion or sore throat. [] Respiratory: Denies cough or shortness of breath. [] Cardiovascular: Denies chest pain. Lateral lower extremity edema. [] GI: Denies abdominal pain, nausea, vomiting, bloody stools or diarrhea. [] : Denies dysuria. [] Musculoskeletal: Denies back pain or joint pain. Bilateral lower extremity pain. [] Integument: Denies rash. [] Neurologic: Denies headache, focal weakness or sensory changes. [] Endocrine: Denies polyuria or polydipsia. [] Lymphatic: Denies swollen glands. [] Psychiatric: Denies depression or anxiety. [] Heart Score: Risk Factors: Risk Factors: DM, Current or recent (<one month) smoker, HTN, HLP, family history of CAD, obesity. Risk Scores: Score 0 - 3: 2.5% MACE over next 6 weeks - Discharge Home Score 4 - 6: 20.3% MACE over next 6 weeks - Admit for Clinical Observation Score 7 - 10: 72.7% MACE over next 6 weeks - Early Invasive Strategies Allergies: Allergies: Allergies Coded Allergies Type Severity Reaction Last Updated Verified No Known Drug Allergies 05/11/20 No Physical Exam: PE: Constitutional: Well developed, well nourished, no acute distress, non-toxic appearance. [] HENT: Normocephalic, atraumatic, bilateral external ears normal, oropharynx moist, no oral exudates, nose normal. [] Eyes: PERRLA, EOMI, conjunctiva normal, no discharge. [] Neck: Normal range of motion, no tenderness, supple, no stridor. [] Cardiovascular:Heart rate regular rhythm, no murmur [] Lungs & Thorax: Bilateral breath sounds clear to auscultation [] Abdomen: Bowel sounds normal, soft, no tenderness, no masses, no pulsatile masses. [] Skin: Warm but bilateral lower extremity cool, dry, no erythema, no rash. [] Back: No tenderness, no CVA tenderness. [] Extremities: Bilateral lower extremity tenderness, no cyanosis, no clubbing, ROM intact, bilateral lower 2-3+ pitting edema. [] Neurologic: Alert and oriented X 3, normal motor function, normal sensory function, no focal deficits noted. [] Psychologic: Affect normal, judgement normal, mood normal. [] EKG: EKG: [][address] Selby as Sinus Rhythm and no STEMI Radiology/Procedures: Radiology/Procedures: [] Impression: [facility] [address] [place], [place] [id number] IMAGING REPORT Signed PATIENT: CESAR AGEE AACCOUNT: [id number] : 1955 LOCATION: ER AGE: 65 SEX: F EXAM STATUS: REG ER ORD. PHYSICIAN: CAESAR RODRIGUEZ APRN REASON: EDEMA PROCEDURE: PORTABLE CHEST 1V PORTABLE CHEST 1V 07/05/2020 2:09 PM INDICATION: Edema COMPARISON: 05/26/2020 TECHNIQUE: Portable frontal view of the chest is provided. FINDINGS: The cardiomediastinal silhouette is borderline enlarged, stable. Lungs are clear. Mild pulmonary vascular congestion. No significant pleural effusions or pneumothorax. No suspicious osseous abnormality. IMPRESSION: Constellation of findings may be seen with mild congestive heart failure. Electronically signed by: Yamini Lee MD (07/05/2020 3:00 PM) [id number] DICTATED and SIGNED BY: YAMINI LEE MD DATE: 07/05/20 1500 [facility] [address] [place] [address] IMAGING REPORT Signed PATIENT: CESAR AGEE AACCOUNT: [id number] : 1955 LOCATION: ER AGE: 65 SEX: F EXAM STATUS: REG ER ORD. PHYSICIAN: CAESAR RODRIGUEZ APRN REASON: LLE pain, swelling PROCEDURE: VENOUS LOWER EXTREMITY LEFT INDICATION: Reason: LLE pain, swelling / Spl. Instructions: / History: COMPARISON: None. TECHNIQUE: Grayscale, color and doppler ultrasound images were obtained of the left lower extremity venous vasculature. LEFT: No thrombus identified in the common femoral vein, femoral vein, popliteal vein or visualized calf veins. IMPRESSION: * No thrombus identified in deep venous system of the left lower extremity. * Edema of the soft tissues is seen. Electronically signed by: Sujatha Garcia MD (07/05/2020 3:03 PM) [id number] DICTATED and SIGNED BY: SUJATHA GARCIA MD DATE: 07/05/20 1503 [facility] [address] [place] [address] IMAGING REPORT Signed PATIENT: CESAR AGEE AACCOUNT: [id number] : 1955 LOCATION: ER AGE: 65 SEX: F EXAM STATUS: REG ER ORD. PHYSICIAN: CAESAR RODRIGUEZ APRN REASON: LOW HEMOGLOBIN, ELEVATED LIVER ENZYMES PROCEDURE: CT ABDOMEN PELVIS WO CONTRAST INDICATION: Reason: LOW HEMOGLOBIN, ELEVATED LIVER ENZYMES / Spl. Instructions: / History: COMPARISON: June 12, 2020 TECHNIQUE: Axial CT images obtained through the abdomen and pelvis without contrast. One or more of the following individualized dose reduction techniques were utilized for this examination: 1. Automated exposure control; 2. Adjustment of the mA and/or kV according to patient size; 3. Use of iterative reconstruction technique. FINDINGS: The heart is partially seen and appears enlarged. Mitral annulus calcification. Severe calcific atherosclerosis. Postcholecystectomy changes. Liver is enlarged. Edema throughout the soft tissues. Limited assessment of pancreas without contrast. Splenic calcified granulomas. No hydronephrosis. Bilateral nonobstructive renal stones. Scattered prominent lymph nodes are again seen throughout the abdomen and pelvis. Also present on prior. Urinary bladder is largely decompressed with haziness of the adjacent fat. There are some thick-walled loops of small bowel seen including at the left-sided the abdomen. The appendix is partially seen without significant dilatation. Degenerative changes throughout the spine with multilevel central canal and neural foraminal stenosis. There is repeat demonstration of some right-sided pubic bone fractures with some callus formation but fracture line still seen. IMPRESSION: * The liver is prominent in size with somewhat nodular contour. Would correlate for possible causes such as chronic hepatic disease. * No evidence of bowel obstruction. * Diffuse edema of soft tissues. * Calcific atherosclerosis. * Mild haziness the fat adjacent to the urinary bladder. Would correlate with symptoms in the region to ensure that there is not cystitis or bladder lesion contributing Electronically signed by: Sujatha Garcia MD (07/05/2020 3:18 PM) [id number] DICTATED and SIGNED BY: SUJATHA GARCIA MD DATE: 07/05/20 1518 [facility] [address] [place] [address] IMAGING REPORT Signed PATIENT: CESAR AGEE AACCOUNT: [id number] : 1955 LOCATION: ER AGE: 65 SEX: F EXAM STATUS: REG ER ORD. PHYSICIAN: CAESAR RODRIGUEZ APRN REASON: BILAT pain, swelling PROCEDURE: DUPLEX LOWER EXTREMITY BILAT Bilateral lower extremity arterial ultrasound History:Reason: BILAT pain, swelling Findings: Multiple grayscale, color, and duplex spectral analysis sonographic images were acquired of the lower extremity arteries bilaterally. There are no previous similar exams. Exam is limited due to bilateral lower extremity edema. Bilateral triphasic flow is seen with common femoral artery to include the distal superficial femoral artery. Biphasic flow involves the right lower extremity arterial vasculature distal to the popliteal artery. Biphasic flow is noted involving the left lower extremity from popliteal artery and more distally. Minimal plaque is present bilaterally. Significant subcutaneous edema is noted involving the lower extremities bilaterally. Velocities in cm/sec: RIGHT Common femoral artery 117 Profunda femoris artery 80 Proximal SFA 84 Mid SFA 100 Distal SFA 54 Popliteal artery 119 Anterior tibial artery 50 Dorsalis pedis artery 90 Posterior tibial artery 46 distally and 77 proximally Peroneal artery 55 LEFT: Common femoral artery 91 Profunda femoris artery 65 Proximal SFA 102 Mid SFA 107 Distal SFA 77 Popliteal artery 76 Anterior tibial artery not visualized Dorsalis pedis artery 69 Posterior tibial artery 63 distally and 97 proximally Peroneal artery not visualized due to significant edema present Impression: No focal hemodynamic stenosis. Mild amount of diffuse plaque. Significant subcutaneous edema bilaterally. Electronically signed by: Roger Thomas MD (07/05/2020 3:28 PM) [facility] DICTATED and SIGNED BY: ROGER THOMAS MD DATE: 07/05/20 1528 Course & Med Decision Making: Course & Med Decision Making Pertinent Labs and Imaging studies reviewed. (See chart for details) See HPI. Patient denies nausea, vomiting, abdominal pain, chest pain, shortness of air, headache, dizziness, syncope, fall, fever, cough, vision changes, numbness or tingling. Lungs are clear in upper lobes and diminished in lower lobes. Bilateral lower extremities feel cool to touch. Due to swelling it is hard to feel pulses. Cap refill less than 3 seconds. Lower extremities from thighs down around the whole legs are tender with palpation. She states is a throbbing sharp shooting type pain. Hemoglobin is 6.8 and patient states she has seen a very small amount of Blood in her stools but that it is chronic for her. She still complains of intractable pain in her legs with movement. I have spoken to Dr Mercado and let him know the patient is in the ED and will be admitted and will need Dialysis. I have also ordered Hyperkalemia protocol and 1 bag of RBC's. I have spoken to Dr Selby concerning this patient and the care plan. I have spoken to Dr. Almodovar for admission. [] Rishi Disclaimer: Rishi Disclaimer: This electronic medical record was generated, in whole or in part, using a voice recognition dictation system. Departure Departure Impression: Primary Impression: Hyperkalemia Additional Impressions: Hemoglobin low Intractable pain Disposition: ADMITTED INPATIENT Admitting Physician: BRYANT Condition: STABLE Referrals: NO PCP (PCP) Justicifation of Admission Dx: Justifications for Admission: Justification of Admission Dx: Yes Acute Renal Failure: Serum Cr > 4mg/dL Chronic Renal Failure: Hemodynamic Instability Sepsis: Infection Comments: HYPERKALEMIA CAESAR RODRIGUEZ [employer] Jul 05, 2020 13:11
[2020-07-05] MEDS ORDERED: fentaNYL PF VIAL 100 MCG/2 ML VIAL IVP ONE ×2 (13:15→15:30)
[2020-07-05 14:03] LABS: BASO % 1 % (0-3); EOS # 0.1 x10^3/uL (0.0-0.7); EOS % 5 % (0-3); LYMPH # 0.5 x10^3/uL (1.0-4.8); LYMPH % 16 % (24-48); MEAN CORPUSCULAR HEMOGLOBIN 35 pg (25-35); MEAN CORPUSCULAR HGB CONC 33 g/dL (31-37); MEAN CORPUSCULAR VOLUME 107 fL (79-100); MONO # 0.5 x10^3/uL (0.0-1.1); MONO % 16 % (0-9); NEUT # 1.9 x10^3/uL (1.8-7.7); NEUT % 62 % (31-73); PLATELET COUNT 132 x10^3/uL (140-400); RED BLOOD COUNT 1.93 x10^6/uL (3.50-5.40); RED CELL DISTRIBUTION WIDTH 18.8 % (11.5-14.5); WHITE BLOOD COUNT 3.1 x10^3/uL (4.0-11.0)
[2020-07-05 14:07] LABS: HEMOGLOBIN 6.8 g/dL (12.0-15.5)
[2020-07-05 14:08] LABS: HEMATOCRIT 20.6 % (36.0-47.0)
[2020-07-05 14:10] LABS: PROTHROMBIN TIME PATIENT 14.3 SEC (11.7-14.0)
[2020-07-05 14:13] LABS: ALBUMIN 3.2 g/dL (3.4-5.0); ALBUMIN/GLOBULIN RATIO 0.7 (1.0-1.7); CALCIUM 8.7 mg/dL (8.5-10.1); CREATININE 7.6 mg/dL (0.6-1.0); GFR 6.5; TOTAL BILIRUBIN 0.9 mg/dL (0.2-1.0); TOTAL PROTEIN 7.9 g/dL (6.4-8.2)
[2020-07-05 14:19] LABS: POTASSIUM 6.7 mmol/L (3.5-5.1)
[2020-07-05] MEDS ORDERED: DEXTROSE 50% 25 GM / 50ML DISP.SYRIN. IV ONE (15:00)
[2020-07-05] MEDS ORDERED: ALBUTEROL SULFATE 2.5 MG/3 ML NEBU. CONT NEB ONE (15:00)
[2020-07-05] MEDS ORDERED: INSULIN REGULAR 100 UNIT/ML 3ML VIAL. IV ONE (15:00)
[2020-07-05] MEDS ORDERED: CALCIUM GLUCONATE 1,000 MG/10 ML VIAL. IVP ONE (15:00)
[2020-07-05] MEDS ORDERED: SODIUM BICARB ADULT 8.4% 50 MEQ/50 ML DISP.SYRIN. IV ONE (15:00)
--- NOTE | 2020-07-05 15:03 | RAD ---
PORTABLE CHEST 1V 07/05/2020 2:09 PM INDICATION: Edema COMPARISON: 05/26/2020 TECHNIQUE: Portable frontal view of the chest is provided. FINDINGS: The cardiomediastinal silhouette is borderline enlarged, stable. Lungs are clear. Mild pulmonary vascular congestion. No significant pleural effusions or pneumothorax. No suspicious osseous abnormality. IMPRESSION: Constellation of findings may be seen with mild congestive heart failure. Electronically signed by: Yamini Mackey MD (07/05/2020 3:00 PM) [id number]
--- NOTE | 2020-07-05 15:06 | RAD ---
INDICATION: Reason: LLE pain, swelling / Spl. Instructions: / History: COMPARISON: None. TECHNIQUE: Grayscale, color and doppler ultrasound images were obtained of the left lower extremity venous vasculature. LEFT: No thrombus identified in the common femoral vein, femoral vein, popliteal vein or visualized calf veins. IMPRESSION: * No thrombus identified in deep venous system of the left lower extremity. * Edema of the soft tissues is seen. Electronically signed by: Marco Gallardo MD (07/05/2020 3:03 PM) [id number]
[2020-07-05] MEDS ORDERED: ACETAMINOPHEN 325 MG TABLET. PO PRN (15:15)
[2020-07-05] MEDS ORDERED: ALBUTEROL SULFATE 2.5 MG/3 ML NEBU. NEB PRN ×2 (15:15)
[2020-07-05] MEDS ORDERED: ACETAMINOPHEN 500 MG TABLET PO PRN (15:15)
[2020-07-05] MEDS ORDERED: ONDANSETRON PF 4 MG/2 ML VIAL. IV PRN (15:15)
[2020-07-05] MEDS ORDERED: guaiFENesin ORAL 200 MG/10 ML LIQUID. PO PRN (15:15)
[2020-07-05] MEDS ORDERED: DOCUSATE SODIUM 100 MG CAPSULE. PO PRN (15:15)
--- NOTE | 2020-07-05 15:21 | RAD ---
INDICATION: Reason: LOW HEMOGLOBIN, ELEVATED LIVER ENZYMES / Spl. Instructions: / History: COMPARISON: June 12, 2020 TECHNIQUE: Axial CT images obtained through the abdomen and pelvis without contrast. One or more of the following individualized dose reduction techniques were utilized for this examination: 1. Automated exposure control; 2. Adjustment of the mA and/or kV according to patient size; 3. Use of iterative reconstruction technique. FINDINGS: The heart is partially seen and appears enlarged. Mitral annulus calcification. Severe calcific atherosclerosis. Postcholecystectomy changes. Liver is enlarged. Edema throughout the soft tissues. Limited assessment of pancreas without contrast. Splenic calcified granulomas. No hydronephrosis. Bilateral nonobstructive renal stones. Scattered prominent lymph nodes are again seen throughout the abdomen and pelvis. Also present on prior. Urinary bladder is largely decompressed with haziness of the adjacent fat. There are some thick-walled loops of small bowel seen including at the left-sided the abdomen. The appendix is partially seen without significant dilatation. Degenerative changes throughout the spine with multilevel central canal and neural foraminal stenosis. There is repeat demonstration of some right-sided pubic bone fractures with some callus formation but fracture line still seen. IMPRESSION: * The liver is prominent in size with somewhat nodular contour. Would correlate for possible causes such as chronic hepatic disease. * No evidence of bowel obstruction. * Diffuse edema of soft tissues. * Calcific atherosclerosis. * Mild haziness the fat adjacent to the urinary bladder. Would correlate with symptoms in the region to ensure that there is not cystitis or bladder lesion contributing Electronically signed by: Marco Gallardo MD (07/05/2020 3:18 PM) [id number]
[2020-07-05 15:26] LABS: FECAL OB PT POSITIVE (NEG)
--- NOTE | 2020-07-05 15:31 | RAD ---
Bilateral lower extremity arterial ultrasound History:Reason: BILAT pain, swelling Findings: Multiple grayscale, color, and duplex spectral analysis sonographic images were acquired of the lower extremity arteries bilaterally. There are no previous similar exams. Exam is limited due to bilateral lower extremity edema. Bilateral triphasic flow is seen with common femoral artery to include the distal superficial femoral artery. Biphasic flow involves the right lower extremity arterial vasculature distal to the popliteal artery. Biphasic flow is noted involving the left lower extremity from popliteal artery and more distally. Minimal plaque is present bilaterally. Significant subcutaneous edema is noted involving the lower extremities bilaterally. Velocities in cm/sec: RIGHT Common femoral artery 117 Profunda femoris artery 80 Proximal SFA 84 Mid SFA 100 Distal SFA 54 Popliteal artery 119 Anterior tibial artery 50 Dorsalis pedis artery 90 Posterior tibial artery 46 distally and 77 proximally Peroneal artery 55 LEFT: Common femoral artery 91 Profunda femoris artery 65 Proximal SFA 102 Mid SFA 107 Distal SFA 77 Popliteal artery 76 Anterior tibial artery not visualized Dorsalis pedis artery 69 Posterior tibial artery 63 distally and 97 proximally Peroneal artery not visualized due to significant edema present Impression: No focal hemodynamic stenosis. Mild amount of diffuse plaque. Significant subcutaneous edema bilaterally. Electronically signed by: Roger Solis MD (07/05/2020 3:28 PM) [facility]
--- NOTE | 2020-07-05 15:35 | EKG ---
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
--- NOTE | 2020-07-05 16:25 | PDOC1 ---
History and Physical Date of Admission Date of Admission 07/05/2020 Identification/Chief Complaint Chief Complaint I am hurting all over Source Source: Chart review, Patient History of Present Illness History of Present Illness History of Present Ilness Mrs Fernandez is a 65 year old female with past medical history of ESRD on HD who was in her usual state of health until of last week when she started experiencing "aching all over". she had a doppler of her legs ordered by her foundry worker. She is at the time of my evaluation in tears due to the discomfort, she cannot give a very good history due to her distress. She was evaluated in the ED and found to have anemia. Patient complained of lower back pain as well but no alarming signs were reported like saddle anesthesia, incontinence, weight loss or any other concerning symptoms. We have been asked to admit for dialysis and blood transfusion given anemia found on work up. Patient denies active bleeding. Plan of care discussed in detail. All concerns addressed to the best of my abilities She denies chest pain, no palpitations no shortness of breath, no angina type of symptoms. No hematemesis nor hematochezia reported. ER history as follows: ED Adult General Template Patient Name: Pam Fernandez Unit Number: [id number] Date of : 1955 Patient Status: Registered Emergency Room Attending Doctor: Meri Longoria Aprn Past Medical History Past Medical History Past Medical History: Anemia, Diabetes-Type II, GERD, GI Bleed, Hypertension, Kidney Stone, Pancreatitis, Pneumonia, Renal Failure, Other Additional Past Medical Histor: Ulcers,ESRD,C-DIFF,CIRRHOSIS Past Surgical History: Cholecystectomy, Other Additional Past Surgical Histo: LEFT UPPER dialysis shunt Smoking Status: Never Smoker Alcohol Use: None Drug Use: None General Adult General Adult HPI: HPI: Patient is a 65 year old female who presents with comes by EMS from her apartment building with chronic bilateral lower extremity sharp shooting pains that go from her upper thighs and down into her feet. States at times it goes from the back also. She states is worse with movement. Patient was here recently and had a venous ultrasound done on the right leg on June 30. The results showed no DVT. Patient states her right leg does hurt worse than the left leg. She has bilateral lower leg 2-3+ pitting edema. She rates her sharp shooting pain a 10 out of 10. States she cannot ambulate or move her legs. Patient is supposed to go to dialysis today but due to the pain she came to the emergency room. She has dialysis on Saturday, , Saturdays. She has a history of GERD, GI bleed, anemia, diabetes type 2, end-stage renal disease, renal failure, C. difficile, cirrhosis, cholecystectomy, pancreatitis, pn eumonia. Patient is very tearful. Past Medical History Cardiovascular: HTN, Hyperlipidemia Pulmonary: No pertinent hx GI: Constipation, GERD, GI bleed, Peptic Ulcer disease, Other Heme/Onc: Anemia NOS Hepatobiliary: Cirrhosis, Hep A/B/C, Other Psych: Addictions Rheumatologic: Rheumatoid arthritis Infectious disease: No pertinent hx Renal/: Chronic renal failure, Hematuria Endocrine: Diabetes, Hyperparathyroidism Past Surgical History Past Surgical History: Cholecystectomy, Tonsillectomy, Hysterectomy, Other Family History Family History: Alcohol Abuse, Cancer, High Cholestrol, Hypertension, Family History Unknown Social History ALCOHOL: other Drugs: None Current Problem List Problem List Problems Medical Problems: (1) Hemoglobin low Status: Acute (2) Intractable pain Status: Acute Current Medications Current Medications Current Medications Medications (Trade) Dose Ordered Sig/Kimberly Start Time Stop Time Status Last Admin Dose Admin Acetaminophen (Tylenol) 500 mg PRN Q6HRS PRN 07/05/20 15:15 07/05/20 15:20 DC Acetaminophen/ Hydrocodone Bitart (Lortab 5/325) 1 tab PRN Q6HRS PRN 07/05/20 15:15 Albuterol Sulfate (Ventolin Neb Soln) 2.5 mg PRN Q2HRS PRN 07/05/20 15:15 Calcium Gluconate (Calcium Gluconate) 1,000 mg 1X ONCE 07/05/20 15:00 07/05/20 15:01 DC 07/05/20 15:26 1,000 MG Carvedilol (Coreg) 25 mg BIDWMEALS 07/05/20 17:00 Dextrose (Dextrose 50%-Water Syringe) 25 gm 1X ONCE 07/05/20 15:00 07/05/20 15:01 DC 07/05/20 15:29 25 GM Docusate Sodium (Colace) 100 mg PRN BID PRN 07/05/20 15:15 Fentanyl Citrate (Fentanyl 2ml Vial) 50 mcg 1X ONCE 07/05/20 15:30 07/05/20 15:31 DC 07/05/20 15:22 50 MCG Ferrous Sulfate (Feosol) 325 mg BIDWMEALS 07/05/20 17:00 Folic Acid (Folic Acid) 1 mg DAILY 07/06/20 09:00 Guaifenesin (Robitussin) 200 mg PRN Q4HRS PRN 07/05/20 15:15 Insulin Human Regular (HumuLIN R VIAL) 10 unit 1X ONCE 07/05/20 15:00 07/05/20 15:01 DC 07/05/20 15:31 10 UNIT Lorazepam (Ativan Inj) 2 mg PRN Q4HRS PRN 07/05/20 15:15 Lorazepam (Ativan) 0.5 mg PRN Q4HRS PRN 07/05/20 15:15 Ondansetron HCl (Zofran) 4 mg PRN Q4HRS PRN 07/05/20 15:15 Pantoprazole Sodium (Protonix) 40 mg DAILYAC 07/06/20 07:30 Sodium Bicarbonate (Sodium Bicarb Adult 8.4% Syr) 50 meq 1X ONCE 07/05/20 15:00 07/05/20 15:01 DC 07/05/20 15:23 50 MEQ Vancomycin HCl (Vancomycin Oral Solution) 125 mg [id number] 07/05/20 17:00 Zolpidem Tartrate (Ambien) 5 mg PRN QHS PRN 07/05/20 15:15 Allergies Allergies Allergies Coded Allergies Type Severity Reaction Last Updated Verified No Known Drug Allergies 05/11/20 No ROS Review of System Pertinent as per HPI CONSTITUTIONAL: No fever or chills EYES: No recent changes SKIN: No rash or itching CARDIOVASCULAR: No chest pain, syncope, palpitations, or edema RESPIRATORY: No SOB or cough GASTROINTESTINAL: No nausea, vomiting or abdominal pain NEUROLOGICAL: No headaches or weakness ENDOCRINE: No cold or heat intolerance GENITOURINARY: No urgency or frequency of urination MUSCULOSKELETAL: No back pain or joint pain LYMPHATICS: No enlarged lymph nodes PSYCHIATRIC: No anxiety or depression Physical Exam Physical Exam GEN.: No apparent distress. Alert and oriented. HEENT: Head is normocephalic, atraumatic NECK: Supple. LUNGS: Clear to auscultation. HEART: RRR, S1, S2 present. Peripheral pulses intact ABDOMEN: Soft, nontender. Positive bowel sounds. EXTREMITIES: Without any cyanosis. NEUROLOGIC: Normal speech, normal tone PSYCHIATRIC: Normal affect, normal mood. SKIN: No ulcerations Vitals Vitals Vital Signs Date Time Temp Pulse Resp B/P (MAP) Pulse Ox O2 Delivery O2 Flow Rate FiO2 07/05/20 12:50 98.1 75 16 141/62 (88) 97 Room Air 98.1 Labs Labs Laboratory Tests Test 07/05/20 13:50 07/05/20 15:06 White Blood Count 3.1 x10^3/uL (4.0-11.0) Red Blood Count 1.93 x10^6/uL (3.50-5.40) Hemoglobin 6.8 g/dL (12.0-15.5) Hematocrit 20.6 % (36.0-47.0) Mean Corpuscular Volume 107 fL (79-100) Mean Corpuscular Hemoglobin 35 pg (25-35) Mean Corpuscular Hemoglobin Concent 33 g/dL (31-37) Red Cell Distribution Width 18.8 % (11.5-14.5) Platelet Count 132 x10^3/uL (140-400) Neutrophils (%) (Auto) 62 % (31-73) Lymphocytes (%) (Auto) 16 % (24-48) Monocytes (%) (Auto) 16 % (0-9) Eosinophils (%) (Auto) 5 % (0-3) Basophils (%) (Auto) 1 % (0-3) Neutrophils # (Auto) 1.9 x10^3/uL (1.8-7.7) Lymphocytes # (Auto) 0.5 x10^3/uL (1.0-4.8) Monocytes # (Auto) 0.5 x10^3/uL (0.0-1.1) Eosinophils # (Auto) 0.1 x10^3/uL (0.0-0.7) Basophils # (Auto) 0.0 x10^3/uL (0.0-0.2) Prothrombin Time 14.3 SEC (11.7-14.0) Prothromb Time International Ratio 1.2 (0.8-1.1) Sodium Level 132 mmol/L (136-145) Potassium Level 6.7 mmol/L (3.5-5.1) Chloride Level 95 mmol/L (98-107) Carbon Dioxide Level 29 mmol/L (21-32) Anion Gap 8 (6-14) Blood Urea Nitrogen 63 mg/dL (7-20) Creatinine 7.6 mg/dL (0.6-1.0) Estimated GFR (Cockcroft-Gault) 6.5 BUN/Creatinine Ratio 8 (6-20) Glucose Level 80 mg/dL (70-99) Calcium Level 8.7 mg/dL (8.5-10.1) Iron Level 56 ug/dL (50-170) Total Iron Binding Capacity 263 ug/dL (250-450) Iron Saturation 21 % (15-34) Total Bilirubin 0.9 mg/dL (0.2-1.0) Aspartate Amino Transf (AST/SGOT) 87 U/L (15-37) Alanine Aminotransferase (ALT/SGPT) 33 U/L (14-59) Alkaline Phosphatase 307 U/L (46-116) Total Protein 7.9 g/dL (6.4-8.2) Albumin 3.2 g/dL (3.4-5.0) Albumin/Globulin Ratio 0.7 (1.0-1.7) Lipase 155 U/L (73-393) Stool Occult Blood Positive (NEG) Laboratory Tests Test 07/05/20 13:50 07/05/20 15:06 White Blood Count 3.1 x10^3/uL (4.0-11.0) Red Blood Count 1.93 x10^6/uL (3.50-5.40) Hemoglobin 6.8 g/dL (12.0-15.5) Hematocrit 20.6 % (36.0-47.0) Mean Corpuscular Volume 107 fL (79-100) Mean Corpuscular Hemoglobin 35 pg (25-35) Mean Corpuscular Hemoglobin Concent 33 g/dL (31-37) Red Cell Distribution Width 18.8 % (11.5-14.5) Platelet Count 132 x10^3/uL (140-400) Neutrophils (%) (Auto) 62 % (31-73) Lymphocytes (%) (Auto) 16 % (24-48) Monocytes (%) (Auto) 16 % (0-9) Eosinophils (%) (Auto) 5 % (0-3) Basophils (%) (Auto) 1 % (0-3) Neutrophils # (Auto) 1.9 x10^3/uL (1.8-7.7) Lymphocytes # (Auto) 0.5 x10^3/uL (1.0-4.8) Monocytes # (Auto) 0.5 x10^3/uL (0.0-1.1) Eosinophils # (Auto) 0.1 x10^3/uL (0.0-0.7) Basophils # (Auto) 0.0 x10^3/uL (0.0-0.2) Prothrombin Time 14.3 SEC (11.7-14.0) Prothromb Time International Ratio 1.2 (0.8-1.1) Sodium Level 132 mmol/L (136-145) Potassium Level 6.7 mmol/L (3.5-5.1) Chloride Level 95 mmol/L (98-107) Carbon Dioxide Level 29 mmol/L (21-32) Anion Gap 8 (6-14) Blood Urea Nitrogen 63 mg/dL (7-20) Creatinine 7.6 mg/dL (0.6-1.0) Estimated GFR (Cockcroft-Gault) 6.5 BUN/Creatinine Ratio 8 (6-20) Glucose Level 80 mg/dL (70-99) Calcium Level 8.7 mg/dL (8.5-10.1) Iron Level 56 ug/dL (50-170) Total Iron Binding Capacity 263 ug/dL (250-450) Iron Saturation 21 % (15-34) Total Bilirubin 0.9 mg/dL (0.2-1.0) Aspartate Amino Transf (AST/SGOT) 87 U/L (15-37) Alanine Aminotransferase (ALT/SGPT) 33 U/L (14-59) Alkaline Phosphatase 307 U/L (46-116) Total Protein 7.9 g/dL (6.4-8.2) Albumin 3.2 g/dL (3.4-5.0) Albumin/Globulin Ratio 0.7 (1.0-1.7) Lipase 155 U/L (73-393) Stool Occult Blood Positive (NEG) VTE Prophylaxis Ordered VTE Prophylaxis Devices: No VTE Pharmacological Prophylaxi: Contraindicated Assessment/Plan Assessment/Plan Anemia macrocytic etiology undetermined at the present time Hyperkalemia Hyponatremia Diabetes-Type II, GERD, History of GI Bleed, Essential Hypertension, History of Kidney Stone, History of Pancreatitis ESRD on HD, History of CIRRHOSIS Plan: will admit for dialysis and correnction of electrolyte imbalance transfuse 1 unit of PRBCs resume home meds once available pain management with Fentanyl DVT prophylaxis: SCD Justifications for Admission Other Justification AJ FELTON MD Jul 05, 2020 16:25
[2020-07-05] MEDS ORDERED: DIALYSIS PATIENT. MC PRN (16:30)
[2020-07-05] MEDS ORDERED: ALBUMIN HUMAN 25% 200 ML IV PRN (16:30)
[2020-07-05] MEDS ORDERED: IV NORMAL SALINE 1000ML BAG 1,000 ML IV PRN ×2 (16:30)
[2020-07-05] MEDS: VANCOMYCIN 125 MG/2.5 ML ORAL SOLUTION. PO SCH ×2 (17:00→21:00)
[2020-07-05 17:20] VITALS: BP 138/46
[2020-07-05 17:55] VITALS: BP 114/48
[2020-07-05 18:45] VITALS: BP 141/57
[2020-07-05 19:45] VITALS: BP 154/72
[2020-07-05 21:20] VITALS: BP 140/70
[2020-07-05] MEDS ORDERED: C.DIFF MED SCREEN BY RX. MC ONE (22:30)
[2020-07-05] MEDS: FERROUS SULFATE 325 MG TABLET. PO SCH (22:44)
[2020-07-05] MEDS: CARVEDILOL 12.5 MG TABLET. PO SCH (22:44)
[2020-07-05] MEDS: HYDROcodone/APAP 5/325MG 1 TAB TABLET PO PRN (22:49)
[2020-07-05] MEDS: ZOLPIDEM 5 MG TABLET. PO PRN (22:49)
[2020-07-05 23:00] VITALS: BP 125/64
[2020-07-06 03:00] VITALS: BP 114/54
[2020-07-06 07:15] VITALS: BP 108/52
[2020-07-06] MEDS: HYDROcodone/APAP 5/325MG 1 TAB TABLET PO PRN ×3 (07:39→23:42)
--- NOTE | 2020-07-06 08:46 | PDOC ---
PROGRESS NOTES Date of Service: DATE: 07/06/20 TIME: 08:45 Chief Complaint Chief Complaint VTE Prophylaxis Ordered VTE Prophylaxis Devices: No VTE Pharmacological Prophylaxi: Contraindicated IMPRESSION Assessment/Plan Anemia macrocytic etiology undetermined at the present time Hyperkalemia Hyponatremia Diabetes-Type II, GERD, History of GI Bleed, recurrent Essential Hypertension, History of Kidney Stone, History of Pancreatitis ESRD on HD, History of CIRRHOSIS COVID 19 - 05/27/2020 positive testing, again on 06/14/2020 positive Acute anemia - Hb 7.6 Pancytopenia - possibly leukopenic from COVID 19, thrombocytopenic possibly from same vs ETOH use End-stage renal disease on dialysis - Nephrology consulted H/o pancreatitis, alcoholic - wine drinker. Counseled on cessation given her dialysis status and comorbidities Mild bilateral knee osteoarthritis with suspected trace right knee effusion. Chronic back pain Previous gastrointestinal bleed HX Clostridium difficile Cholelithiasis Obesity Trace tricuspid regurgitation with an estimated PAP of 52 mmHg. Arteriovenous shunt Moderate protein calorie malnutrition - Albumin 2.8 Back and shoulder pain s/p fall - PT evaluation +Hemoccult H/o recurrent UGI bleeding, refractory ulcer - H. pylori negative x 2, last endotherapy 01/12/20 (has had 7 EGDs since 2016), past GDA embolization (poor surgical candidate) GERD cirrhosis Hep C Plan: gi consult nephrology consult transfuse prn will admit for dialysis and correnction of electrolyte imbalance transfuse 1 unit of PRBCs resume home meds once available pain management with Fentanyl DVT prophylaxis: SCD needs DPOA 38 min pt exam, chart review, > 50% of time spent with exam, chart review, pt care coordination Justifications for Admission Justifications for Admission Other Justification History of Present Illness History of Present Illness Identification/Chief Complaint Chief Complaint I am hurting all over Source Source: Chart review, Patient History of Present Illness History of Present Illness History of Present Ilness Mrs Fernandez is a 65 year old female with past medical history of ESRD on HD who was in her usual state of health until of last week when she started experiencing "aching all over". 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 She is at the time of my evaluation in tears due to the discomfort, she cannot give a very good history due to her distress. She was evaluated in the ED and found to have anemia. Patient complained of lower back pain as well but no alarming signs were reported like saddle anesthesia, incontinence, weight loss or any other concerning symptoms. We have been asked to admit for dialysis and blood transfusion given anemia found on work up. Patient denies active bleeding. Plan of care discussed in detail. All concerns addressed to the best of my abilities She denies chest pain, no palpitations no shortness of breath, no angina type of symptoms. No hematemesis nor hematochezia reported. ER history as follows: ED Adult General Template Patient Name: Pam Fernandez Unit Number: [id number] Date of : 1955 Patient Status: Registered Emergency Room Attending Doctor: Meri Longoria Aprn Past Medical History Past Medical History Past Medical History: Anemia, Diabetes-Type II, GERD, GI Bleed, Hypertension, Kidney Stone, Pancreatitis, Pneumonia, Renal Failure, Other Additional Past Medical Histor: Ulcers,ESRD,C-DIFF,CIRRHOSIS Past Surgical History: Cholecystectomy, Other Additional Past Surgical Histo: LEFT UPPER dialysis shunt Smoking Status: Never Smoker Alcohol Use: None Drug Use: None Vitals Vitals Vital Signs Date Time Temp Pulse Resp B/P (MAP) Pulse Ox O2 Delivery O2 Flow Rate FiO2 07/06/20 07:39 20 Room Air 07/06/20 07:15 97.4 68 108/52 (70) 95 97.4 Physical Exam Physical Exam Physical Exam Physical Exam GEN.: No apparent distress. Alert and oriented. HEENT: Head is normocephalic, atraumatic NECK: Supple. LUNGS: Clear to auscultation. HEART: RRR, S1, S2 present. Peripheral pulses intact ABDOMEN: Soft, nontender. Positive bowel sounds. EXTREMITIES: Without any cyanosis. NEUROLOGIC: Normal speech, normal tone PSYCHIATRIC: Normal affect, normal mood. SKIN: No ulcerations General: Alert Lungs: Clear Labs LABS Laboratory Tests Test 07/05/20 13:50 07/05/20 15:06 07/05/20 21:39 07/06/20 07:27 White Blood Count 3.1 x10^3/uL (4.0-11.0) Red Blood Count 1.93 x10^6/uL (3.50-5.40) Hemoglobin 6.8 g/dL (12.0-15.5) Hematocrit 20.6 % (36.0-47.0) Mean Corpuscular Volume 107 fL (79-100) Mean Corpuscular Hemoglobin 35 pg (25-35) Mean Corpuscular Hemoglobin Concent 33 g/dL (31-37) Red Cell Distribution Width 18.8 % (11.5-14.5) Platelet Count 132 x10^3/uL (140-400) Neutrophils (%) (Auto) 62 % (31-73) Lymphocytes (%) (Auto) 16 % (24-48) Monocytes (%) (Auto) 16 % (0-9) Eosinophils (%) (Auto) 5 % (0-3) Basophils (%) (Auto) 1 % (0-3) Neutrophils # (Auto) 1.9 x10^3/uL (1.8-7.7) Lymphocytes # (Auto) 0.5 x10^3/uL (1.0-4.8) Monocytes # (Auto) 0.5 x10^3/uL (0.0-1.1) Eosinophils # (Auto) 0.1 x10^3/uL (0.0-0.7) Basophils # (Auto) 0.0 x10^3/uL (0.0-0.2) Prothrombin Time 14.3 SEC (11.7-14.0) Prothromb Time International Ratio 1.2 (0.8-1.1) Sodium Level 132 mmol/L (136-145) Potassium Level 6.7 mmol/L (3.5-5.1) Chloride Level 95 mmol/L (98-107) Carbon Dioxide Level 29 mmol/L (21-32) Anion Gap 8 (6-14) Blood Urea Nitrogen 63 mg/dL (7-20) Creatinine 7.6 mg/dL (0.6-1.0) Estimated GFR (Cockcroft-Gault) 6.5 BUN/Creatinine Ratio 8 (6-20) Glucose Level 80 mg/dL (70-99) Calcium Level 8.7 mg/dL (8.5-10.1) Iron Level 56 ug/dL (50-170) Total Iron Binding Capacity 263 ug/dL (250-450) Iron Saturation 21 % (15-34) Total Bilirubin 0.9 mg/dL (0.2-1.0) Aspartate Amino Transf (AST/SGOT) 87 U/L (15-37) Alanine Aminotransferase (ALT/SGPT) 33 U/L (14-59) Alkaline Phosphatase 307 U/L (46-116) Total Protein 7.9 g/dL (6.4-8.2) Albumin 3.2 g/dL (3.4-5.0) Albumin/Globulin Ratio 0.7 (1.0-1.7) Lipase 155 U/L (73-393) Stool Occult Blood Positive (NEG) Glucose (Fingerstick) 58 mg/dL (70-99) 95 mg/dL (70-99) Assessment and Plan Assessmemt and Plan Problems Medical Problems: (1) Hemoglobin low Status: Acute (2) Intractable pain Status: Acute DPOA REVIEW 18 MIN What Is a Power of Video Surveillance Technician? A power of deputy county attorney (POA) is a legal document giving one person (the agent or gaitaotp-zl-mtjn) the power to act for another person (the principal). The agent can have broad legal authority or limited authority to make legal decisions about the principal's property, finances or medical care. The power of deputy county attorney is frequently used in the event of a principal's illness or disability, or when the principal can't be present to sign necessary legal documents for financial transactions. A power of deputy county attorney can end for a number of reasons, such as when the principal dies, the principal revokes it, a court invalidates it, the principal divorces their spouse, who happens to be the agent, or the agent can no longer carry out the outlined responsibilities. Conventional POAs lapse when the creator becomes incapacitated, but a durable POA remains in force to enable the agent to manage the creators affairs, and a springing POA comes into effect only if and when the creator of the POA becomes incapacitated. A medical or healthcare POA enables an agent to make medical decisions on behalf of an incapacitated person. [employer] A power of deputy county attorney (POA) is a legal document giving one person, the agent or rukfeyjp-yv-yzzw the power to act for another person, the principal. The agent can have broad legal authority or limited authority to make decisions about the principal's property, finances or medical care. The power of deputy county attorney is often used when a principal becomes ill or disabled, or when they can't be present to sign necessary legal documents for financial transactions. Understanding Power of Video Surveillance Technician A power of deputy county attorney should be considered when planning for long-term care. There are different types of POAs that fall under either a general power of deputy county attorney or limited power of deputy county attorney. A general power of deputy county attorney acts on behalf of the principal in any and all matters, as allowed by the state. The agent under a general POA agreement may be authorized to take care of issues such as handling bank accounts, signing checks, selling property and assets like stocks, f A limited power of deputy county attorney gives the agent the power to act on behalf of the principal in specific matters or events. For example, the limited POA may explicitly state that the agent is only allowed to manage the principal's detention accounts. A limited POA may also be limited to a specific period of time (e.g., if the principal will be out of the country for, say, two years). Most ibanez of deputy county attorney documents allow an agent to represent the principal in all property and financial matters as long as the principals mental state of mind is good. If a situation occurs where the principal becomes incapable of making decisions for him or herself, the POA agreement would automatically end. However, someone who wants the POA to remain in effect after the persons health deteriorates would need to sign a durable power of deputy county attorney (DPOA). Important:A person appointed as power of deputy county attorney is not necessarily an deputy county attorney. The person could just be a trusted family member, friend, or acquaintance. Understanding the Durable Power of Video Surveillance Technician (DPOA) The durable power of deputy county attorney (DPOA) remains in control of certain legal, property or financial matters specifically spelled out in the agreement, even after the principal becomes mentally incapacitated. While a DPOA can pay medical bills on behalf of the principal, the durable agent cannot make decisions related to the principal's health (e.g., taking the principal off life support is not up to a DPOA). The principal can sign a durable power of deputy county attorney for health care, or healthcare power of deputy county attorney (HCPA), if he wants an agent to have the power to make health-related decisions. This document also called a healthcare proxy, outlines the principals consent to give the agent POA privileges in the event of an unfortunate medical condition. The durable POA for healthcare is legally bound to oversee medical care decisions on behalf of the principal. Another type of DPOA is the durable power of deputy county attorney for finances, or simply a financial power of deputy county attorney. This document allows an agent to manage the business and financial affairs of the principal, such as signing checks, filing tax returns, mailing and depositing Social Security checks and managing investment accounts, in the event, the latter becomes unable to understand or make decisions. To the extent of what the agreement spells out as the agents responsibility, the agent has to carry out the principals wishes to the best of his ability. When the agent acts on behalf of the principal by making investment decisions through the information resources director or medical decisions through the healthcare professional, both institutions would ask to see the DPOA. Although the DPOA for both medical and financial matters can be one document, it is good to have separate DPOA for healthcare and finances. Since the DPOA for healthcare will have the principal's personal medical information, it would be inappropriate for the information resources director to have it, and the emergency medical technician/driver dont need to know the financial status of the patient either. conditions for which a durable POA may become active are set up in a document called the springing power of deputy county attorney. The springing POA defines the kind of event or level of incapacitation that should occur before the DPOA springs into effect. A power of deputy county attorney can remain dormant until a negative health occurrence activates it to a DPOA. How Power of Video Surveillance Technician Works You can buy or download a power of deputy county attorney template. If you do, be sure it is for your state, as requirements differ. However, this document may be too important to leave to the chance that you got the correct form and handled it properly. A better way to start the process of establishing a power of deputy county attorney is by locating an deputy county attorney who specializes in family law in your state. If deputy county attorney's fees are more than you can afford, legal services offices staffed with credentialed attorneys exist in virtually every part of the [place]. Visit the [employer] website, which has a "Find General Merchandise Manager" search function. Clients who qualify will receive pro evgeny (cost-free) assistance Many states require that the signature of the principal (the person who initiates the POA) be notarized. Some states also require that witnesses' signatures be notarized. The following provisos apply generally, nationwide, and everyone who needs to create a POA should be aware of them: There is no standard POA form for all [address] [place] [address]; state law and procedures vary All states accept some version of the durable power of deputy county attorney A few solis ibanez cannot be delegated. These include the authority to do the foll owing: Make, amend, or revoke a will Contract a marriage in most states, although a handful of states allow it Vote (but the guardian may request a ballot on behalf of the principal) While the details may differ, the following rules apply [facility]: Put It in Writing While some regions of the country accept oral POA grants, verbal instruction is not a reliable substitute for getting each of the ibanez of deputy county attorney granted to your agent spelled out [id number] on paper. Written clarity helps to avoid arguments and confusion. Use the Proper Format Many variations of power of deputy county attorney forms exist. Some POAs are short-lived; others are meant to last until . Decide what ibanez you wish to vitaliy and prepare a POA specific to that desire. The POA must also satisfy the requirements of your state. To find a form that will be accepted by a court of law in the state in which you live, perform an internet search, check with an office-supply store or ask a local estate-planning professional to help you. The best option is to use an deputy county attorney. Identify the Parties The term for the person granting the POA is the "principal." The individual who receives the power of deputy county attorney is called either the "agent" or the "ovadmjus-oc-xgfh." Check whether your state requires that you use specific terminology. Delegate the Ibanez A POA can be as broad or as limited as the principal wishes. However, each of the ibanez granted must be clear, even if the principal grants the agent "general power of deputy county attorney." In other words, the principal cannot vitaliy sweeping authority such as, I delegate all things having to do with my life. Specify Durability In most states, a power of deputy county attorney terminates if the principal is incapacitated. If this happens, the only way an agent can keep his or her ibanez is if the POA was written with an indication that it is "durable," a designation that makes it last for the principal's lifetime unless the principal revokes it. Comment Review of Relevant I have reviewed the following items tamika (where applicable) has been applied. Labs Laboratory Tests Test 07/05/20 13:50 07/05/20 15:06 07/05/20 21:39 07/06/20 07:27 White Blood Count 3.1 x10^3/uL (4.0-11.0) Red Blood Count 1.93 x10^6/uL (3.50-5.40) Hemoglobin 6.8 g/dL (12.0-15.5) Hematocrit 20.6 % (36.0-47.0) Mean Corpuscular Volume 107 fL (79-100) Mean Corpuscular Hemoglobin 35 pg (25-35) Mean Corpuscular Hemoglobin Concent 33 g/dL (31-37) Red Cell Distribution Width 18.8 % (11.5-14.5) Platelet Count 132 x10^3/uL (140-400) Neutrophils (%) (Auto) 62 % (31-73) Lymphocytes (%) (Auto) 16 % (24-48) Monocytes (%) (Auto) 16 % (0-9) Eosinophils (%) (Auto) 5 % (0-3) Basophils (%) (Auto) 1 % (0-3) Neutrophils # (Auto) 1.9 x10^3/uL (1.8-7.7) Lymphocytes # (Auto) 0.5 x10^3/uL (1.0-4.8) Monocytes # (Auto) 0.5 x10^3/uL (0.0-1.1) Eosinophils # (Auto) 0.1 x10^3/uL (0.0-0.7) Basophils # (Auto) 0.0 x10^3/uL (0.0-0.2) Prothrombin Time 14.3 SEC (11.7-14.0) Prothromb Time International Ratio 1.2 (0.8-1.1) Sodium Level 132 mmol/L (136-145) Potassium Level 6.7 mmol/L (3.5-5.1) Chloride Level 95 mmol/L (98-107) Carbon Dioxide Level 29 mmol/L (21-32) Anion Gap 8 (6-14) Blood Urea Nitrogen 63 mg/dL (7-20) Creatinine 7.6 mg/dL (0.6-1.0) Estimated GFR (Cockcroft-Gault) 6.5 BUN/Creatinine Ratio 8 (6-20) Glucose Level 80 mg/dL (70-99) Calcium Level 8.7 mg/dL (8.5-10.1) Iron Level 56 ug/dL (50-170) Total Iron Binding Capacity 263 ug/dL (250-450) Iron Saturation 21 % (15-34) Total Bilirubin 0.9 mg/dL (0.2-1.0) Aspartate Amino Transf (AST/SGOT) 87 U/L (15-37) Alanine Aminotransferase (ALT/SGPT) 33 U/L (14-59) Alkaline Phosphatase 307 U/L (46-116) Total Protein 7.9 g/dL (6.4-8.2) Albumin 3.2 g/dL (3.4-5.0) Albumin/Globulin Ratio 0.7 (1.0-1.7) Lipase 155 U/L (73-393) Stool Occult Blood Positive (NEG) Glucose (Fingerstick) 58 mg/dL (70-99) 95 mg/dL (70-99) Laboratory Tests Test 07/05/20 13:50 07/05/20 15:06 07/05/20 21:39 07/06/20 07:27 White Blood Count 3.1 x10^3/uL (4.0-11.0) Red Blood Count 1.93 x10^6/uL (3.50-5.40) Hemoglobin 6.8 g/dL (12.0-15.5) Hematocrit 20.6 % (36.0-47.0) Mean Corpuscular Volume 107 fL (79-100) Mean Corpuscular Hemoglobin 35 pg (25-35) Mean Corpuscular Hemoglobin Concent 33 g/dL (31-37) Red Cell Distribution Width 18.8 % (11.5-14.5) Platelet Count 132 x10^3/uL (140-400) Neutrophils (%) (Auto) 62 % (31-73) Lymphocytes (%) (Auto) 16 % (24-48) Monocytes (%) (Auto) 16 % (0-9) Eosinophils (%) (Auto) 5 % (0-3) Basophils (%) (Auto) 1 % (0-3) Neutrophils # (Auto) 1.9 x10^3/uL (1.8-7.7) Lymphocytes # (Auto) 0.5 x10^3/uL (1.0-4.8) Monocytes # (Auto) 0.5 x10^3/uL (0.0-1.1) Eosinophils # (Auto) 0.1 x10^3/uL (0.0-0.7) Basophils # (Auto) 0.0 x10^3/uL (0.0-0.2) Prothrombin Time 14.3 SEC (11.7-14.0) Prothromb Time International Ratio 1.2 (0.8-1.1) Sodium Level 132 mmol/L (136-145) Potassium Level 6.7 mmol/L (3.5-5.1) Chloride Level 95 mmol/L (98-107) Carbon Dioxide Level 29 mmol/L (21-32) Anion Gap 8 (6-14) Blood Urea Nitrogen 63 mg/dL (7-20) Creatinine 7.6 mg/dL (0.6-1.0) Estimated GFR (Cockcroft-Gault) 6.5 BUN/Creatinine Ratio 8 (6-20) Glucose Level 80 mg/dL (70-99) Calcium Level 8.7 mg/dL (8.5-10.1) Iron Level 56 ug/dL (50-170) Total Iron Binding Capacity 263 ug/dL (250-450) Iron Saturation 21 % (15-34) Total Bilirubin 0.9 mg/dL (0.2-1.0) Aspartate Amino Transf (AST/SGOT) 87 U/L (15-37) Alanine Aminotransferase (ALT/SGPT) 33 U/L (14-59) Alkaline Phosphatase 307 U/L (46-116) Total Protein 7.9 g/dL (6.4-8.2) Albumin 3.2 g/dL (3.4-5.0) Albumin/Globulin Ratio 0.7 (1.0-1.7) Lipase 155 U/L (73-393) Stool Occult Blood Positive (NEG) Glucose (Fingerstick) 58 mg/dL (70-99) 95 mg/dL (70-99) Medications Current Medications Fentanyl Citrate (Fentanyl 2ml Vial) 50 mcg 1X ONCE IVP Last administered on 07/05/20 13:26; Start 07/05/20 at 13:15; Stop 07/05/20 at 13:16; Status DC Calcium Gluconate (Calcium Gluconate) 1,000 mg 1X ONCE IVP Last administered on 07/05/20at 15:26; Start 07/05/20 at 15:00; Stop 07/05/20 at 15:01; Status DC Sodium Bicarbonate (Sodium Bicarb Adult 8.4% Syr) 50 meq 1X ONCE IV Last a dministered on 07/05/20at 15:23; Start 07/05/20 at 15:00; Stop 07/05/20 at 15:01; Status DC Dextrose (Dextrose 50%-Water Syringe) 25 gm 1X ONCE IV Last administered on 07/05/20at 15:29; Start 07/05/20 at 15:00; Stop 07/05/20 at 15:01; Status DC Insulin Human Regular (HumuLIN R VIAL) 10 unit 1X ONCE IV Last administered on 07/05/20at 15:31; Start 07/05/20 at 15:00; Stop 07/05/20 at 15:01; Status DC Albuterol Sulfate (Ventolin Neb Soln) 10 mg 1X ONCE CONT NEB Last administered on 07/05/20at 16:05; Start 07/05/20 at 15:00; Stop 07/05/20 at 15:01; Status DC Fentanyl Citrate (Fentanyl 2ml Vial) 50 mcg 1X ONCE IVP Last administered on 07/05/20at 15:22; Start 07/05/20 at 15:30; Stop 07/05/20 at 15:31; Status DC Ondansetron HCl (Zofran) 4 mg PRN Q4HRS PRN IV NAUSEA/VOMITING; Start 07/05/20 at 15:15 Zolpidem Tartrate (Ambien) 5 mg PRN QHS PRN PO INSOMNIA Last administered on 07/05/20at 22:49; Start 07/05/20 at 15:15 Acetaminophen (Tylenol) 650 mg PRN Q4HRS PRN PO TEMP OVER 100.4F OR MILD PAIN; Start 07/05/20 at 15:15 Docusate Sodium (Colace) 100 mg PRN BID PRN PO HARD STOOLS; Start 07/05/20 at 15:15 Albuterol Sulfate (Ventolin Neb Soln) 2.5 mg PRN Q4HRS PRN NEB SHORTNESS OF BREATH; Start 07/05/20 at 15:15; Stop 07/05/20 at 15:21; Status DC Guaifenesin (Robitussin) 200 mg PRN Q4HRS PRN PO COUGH; Start 07/05/20 at 15:15 Lorazepam (Ativan) 0.5 mg PRN Q4HRS PRN PO ANXIETY / AGITATION; Start 07/05/20 at 15:15 Lorazepam (Ativan Inj) 2 mg PRN Q4HRS PRN IV ANXIETY / AGITATION; Start 07/05/20 at 15:15 Acetaminophen (Tylenol) 500 mg PRN Q6HRS PRN PO pain or fever; Start 07/05/20 at 15:15; Stop 07/05/20 at 15:20; Status DC Albuterol Sulfate (Ventolin Neb Soln) 2.5 mg PRN Q2HRS PRN NEB SOB / WHILE AWAKE; Start 07/05/20 at 15:15 Ferrous Sulfate (Feosol) 325 mg BIDWMEALS PO Last administered on 07/05/20at 22:44; Start 07/05/20 at 17:00 Acetaminophen/ Hydrocodone Bitart (Lortab 5/325) 1 tab PRN Q6HRS PRN PO PAIN Last administered on 07/06/20at 07:39; Start 07/05/20 at 15:15 Pantoprazole Sodium (Protonix) 40 mg DAILYAC PO ; Start 07/06/20 at 07:30 Vancomycin HCl (Vancomycin Oral Solution) 125 mg [id number] PO ; Start 07/05/20 at 17:00 Carvedilol (Coreg) 25 mg BIDWMEALS PO Last administered on 07/05/20at 22:44; Start 07/05/20 at 17:00 Folic Acid (Folic Acid) 1 mg DAILY PO ; Start 9/9/20 at 09:00 Sodium Chloride 1,000 ml @ 1,000 mls/hr Q1H PRN IV hypotension; Start 07/05/20 at 16:30; Stop 07/05/20 at 22:29; Status DC Albumin Human 200 ml @ 200 mls/hr 1X PRN PRN IV Hypotension; Start 07/05/20 at 16:30; Stop 07/05/20 at 22:29; Status DC Sodium Chloride 1,000 ml @ 400 mls/hr Q2H30M PRN IV PATENCY; Start 07/05/20 at 16:30; Stop 07/06/20 at 04:29; Status DC Info (PHARMACY MONITORING -- do not chart) 1 each PRN DAILY PRN MC SEE COMMENTS; Start 07/05/20 at 16:30 Pharmacy Consult (C.diff Med Screen By Rx) 1 each 1X ONCE [facility] ; Start 07/05/20 at 22:30; Stop 07/05/20 at 22:31; Status DC Active Scripts Active [place]enton 5-325 Tablet (Acetaminophen/Hydrocodone Bitart) 1 Each Tablet 1 Tab PO PRN Q6HRS PRN 6 Days Feosol (Ferrous Sulfate) 325 Mg Tablet 325 Mg PO BIDWMEALS 60 Days Proair Hfa (Albuterol Sulfate) 8.5 Gm Hfa.aer.ad 2.5 Mg NEB PRN Q2HRS PRN 30 Days Pantoprazole Sodium (Pantoprazole Sodium) 40 Mg Tablet.dr 40 Mg PO DAILYAC 30 Days Reported Carvedilol 25 Mg Tablet 25 Mg PO BIDWMEALS Folic Acid 0.4 Mg Tablet 0.4 Mg PO DAILY Acetaminophen 500 Mg Tablet 1 Tab PO PRN Q6HRS PRN 15 Days Vitals/I & O Vital Sign - Last 24 Hours 07/05/20 07/05/20 07/05/20 07/05/20 12:50 13:50 14:20 15:31 Temp 98.1 98.1 Pulse 75 72 70 68 Resp 16 B/P (MAP) 141/62 (88) 123/60 (81) 142/68 (92) 137/57 (83) Pulse Ox 97 98 95 98 O2 Delivery Room Air Room Air Room Air Room Air 07/05/20 07/05/20 07/05/20 07/05/20 16:01 16:12 16:36 17:20 Temp 97.0 97.0 Pulse 72 71 Resp 28 B/P (MAP) 137/57 (83) 138/46 Pulse Ox 100 100 O2 Delivery Room Air Room Air 07/05/20 07/05/20 07/05/20 07/05/20 17:55 18:45 19:45 21:20 Temp 96.1 96.1 96.3 97.4 96.1 96.1 96.3 97.4 Pulse 68 72 72 72 Resp 22 18 16 18 B/P (MAP) 114/48 141/57 154/72 140/70 (93) Pulse Ox 100 07/05/20 07/05/20 07/05/20 07/06/20 22:44 22:49 23:00 03:00 Temp 97.7 97.9 97.7 97.9 Pulse 72 72 65 Resp 20 18 16 B/P (MAP) 154/72 125/64 (84) 114/54 (74) Pulse Ox 97 99 O2 Delivery Room Air 07/06/20 07/06/20 07:15 07:39 Temp 97.4 97.4 Pulse 68 Resp 18 20 B/P (MAP) 108/52 (70) Pulse Ox 95 O2 Delivery Room Air Intake and Output 07/05/20 07/05/20 07/06/20 15:00 23:00 07:00 Intake Total 240 ml Output Total 120 ml Balance 120 ml Justicifation of Admission Dx: Justifications for Admission: Justification of Admission Dx: Yes Acute Renal Failure: Serum Cr > 4mg/dL Chronic Renal Failure: Hemodynamic Instability Sepsis: Infection ASHIA MOSS MD Jul 06, 2020 08:46
[2020-07-06] MEDS: VANCOMYCIN 125 MG/2.5 ML ORAL SOLUTION. PO SCH ×4 (09:00→21:00)
[2020-07-06] MEDS: FOLIC ACID 1 MG TABLET. PO SCH (10:37)
[2020-07-06] MEDS: FERROUS SULFATE 325 MG TABLET. PO SCH ×2 (10:37→17:54)
[2020-07-06] MEDS: PANTOPRAZOLE 40 MG TABLET.DR. PO SCH (10:37)
[2020-07-06] MEDS: CARVEDILOL 12.5 MG TABLET. PO SCH ×2 (10:38→17:55)
[2020-07-06] MEDS: LACTOBACILLUS RHAMNOSUS GG 1 CAPSULE. PO SCH ×2 (10:45→21:00)
[2020-07-06 10:59] VITALS: BP 108/75
--- NOTE | 2020-07-06 12:19 | NUR ---
Spoke with RN who reports that pt is not moving well and would benefit from therapy services. Please write PT/OT eval and treat orders if you agree Addendum: 07/06/20 at 1219 by BRIDGET ZAVALETA PT Amended: Links added.
--- NOTE | 2020-07-06 12:57 | NUR ---
SW following. Reviewed chart and discussed with RN. Pt from home with [facility]. SW familiar with pt from multiple previous admissions. Pt as high risk for readmission per hx of noncompliance. SW consulted to completed POA for HC. SW attempted to meet with pt. Pt snoring and not able to wake up enough to complete POA for HC. RN notified. Pt recently given medication to help with anxiety per RN. SW will attempt to follow up tomorrow r/t POA for HC. Pt does out-patient dialysis on Tuesdays, and Saturdays at [facility] , (fax). Pt currently on room air with a renal diet. Pt on oral abx and IV Ativan. SW to follow.
--- NOTE | 2020-07-06 14:28 | PDOC ---
Renal-Progress Notes Subjective Notes Notes LE PAIN History of Present Illness Hx of present illness NO NEW COMPLAINTS Vitals Vitals Vital Signs Date Time Temp Pulse Resp B/P (MAP) Pulse Ox O2 Delivery O2 Flow Rate FiO2 07/06/20 10:59 97.9 68 18 108/75 (86) 97 Room Air 97.9 Weight Weight [ ] I.O. Intake and Output Intake and Output 07/06/20 07:00 Intake Total 240 ml Output Total 120 ml Balance 120 ml Intake Oral 240 ml Output Urine Total 120 ml Labs Labs Laboratory Tests Test 07/05/20 15:06 07/05/20 21:39 07/06/20 07:27 07/06/20 11:12 Stool Occult Blood Positive (NEG) Glucose (Fingerstick) 58 mg/dL (70-99) 95 mg/dL (70-99) 83 mg/dL (70-99) Review of Systems Constitutional: yes: weakness, alert Ears/Nose/Throat: Yes: no symptom reported Eyes: Yes: no symptom reported Pulmonary: Yes no symptom reported Cardiovascular: Yes no symptom reported Gastrointestional: Yes: no symptom reported Genitourinary: Yes: no symptom reported Musculoskeletal: Yes: leg pain, muscle stiffness Skin: Yes no symptom reported Psychiatric/Neurological: Yes: no symptom reported Endocrine: Yes: no symptom reported Physical Exam General Appearance: no apparent distress, afebrile Skin: warm Respiratory: bilateral CTA Abdomen: soft, bowel sounds present Genitourinary: bladder flat Extremities: pulses present Neurology: alert Assessment Assessment IMP HYPERKALEMIA ESRD ANEMIA PANCYTOPENIA LE PAIN PLAN HD EMERGENTLY DONE LAST NIGHT HD AGAIN TOMORROW START OSMIN PRBC NEEDED WILL FOLLOW LINNEA SHULTZ MD Jul 06, 2020 14:28
[2020-07-06 15:09] VITALS: BP_SYST 112; BP_SYST 92; BP_DIAS 59; BP_DIAS 61
--- NOTE | 2020-07-06 15:20 | PDOC2 ---
GI CONSULT Date of Service: DATE: 07/06/20 TIME: 15:05 Reason For Consult: anemia HPI: HPI: 65 y/o female who we've seen numerous times. To ER yesterday w/ BLE pain, admitted and was dialyzed last night. This afternoon we are asked to see for anemia. Hgb was 6.8 yesterday which is around her baseline. She denies n/v/hematemesis, hematochezia, melena, abdominal pain, diarrhea, and constipation. Says compliant w/ meds. Her legs really hurt and her lunch is cold. No GI concerns per nurse. PMH: PMH: HTN, HLD, ESRD on HD, RA, DM, hyperparathyroidism, OA partial hysterectomy FH: Family History: No pertinent hx, DM Social History: ALCOHOL: other Drugs: None ROS: GEN: Denies fevers, chills, sweats HEENT: Denies blurred vision, sore throat CV: Denies chest pain RESP: Denies shortness of air, cough GI: Per HPI : Denies hematuria, dysuria ENDO: Denies weight changes NEURO: Denies confusion, dizziness MSK: BLE pain SKIN: Denies jaundice, pruritus Vitals: Vitals: Vital Signs Date Time Temp Pulse Resp B/P (MAP) Pulse Ox O2 Delivery O2 Flow Rate FiO2 07/06/20 10:59 97.9 68 18 108/75 (86) 97 Room Air 97.9 Labs: Labs: Laboratory Tests Test 07/05/20 15:06 07/05/20 21:39 07/06/20 07:27 07/06/20 11:12 Stool Occult Blood Positive (NEG) Glucose (Fingerstick) 58 mg/dL (70-99) 95 mg/dL (70-99) 83 mg/dL (70-99) Allergies: Coded Allergies: No Known Drug Allergies (Unverified , 05/11/20) Medications: Current Medications Medications (Trade) Dose Ordered Sig/Kimberly Route PRN Reason Start Time Stop Time Status Last Admin Dose Admin Fentanyl Citrate (Fentanyl 2ml Vial) 50 mcg 1X ONCE IVP 07/05/20 15:30 07/05/20 15:31 DC 07/05/20 15:22 Zolpidem Tartrate (Ambien) 5 mg PRN QHS PRN PO INSOMNIA 07/05/20 15:15 07/05/20 22:49 Lorazepam (Ativan Inj) 2 mg PRN Q4HRS PRN IV ANXIETY / AGITATION 07/05/20 15:15 07/06/20 10:46 Ferrous Sulfate (Feosol) 325 mg BIDWMEALS PO 07/05/20 17:00 07/06/20 10:37 Acetaminophen/ Hydrocodone Bitart (Lortab 5/325) 1 tab PRN Q6HRS PRN PO MODERATE - SEVERE PAIN 07/05/20 15:15 07/06/20 07:39 Pantoprazole Sodium (Protonix) 40 mg DAILYAC PO 07/06/20 07:30 07/06/20 10:37 Carvedilol (Coreg) 25 mg BIDWMEALS PO 07/05/20 17:00 07/06/20 10:38 Folic Acid (Folic Acid) 1 mg DAILY PO 07/06/20 09:00 07/06/20 10:37 Lactobacillus Rhamnosus (Culturelle) 1 cap BID PO 07/06/20 10:00 07/06/20 10:45 Imaging: Imaging: LLE US IMPRESSION: * No thrombus identified in deep venous system of the left lower extremity. * Edema of the soft tissues is seen. BLE Duplex Impression: No focal hemodynamic stenosis. Mild amount of diffuse plaque. Significant subcutaneous edema bilaterally. CXR IMPRESSION: Constellation of findings may be seen with mild congestive heart failure. CT A/P FINDINGS: The heart is partially seen and appears enlarged. Mitral annulus calcification. Severe calcific atherosclerosis. Postcholecystectomy changes. Liver is enlarged. Edema throughout the soft tissues. Limited assessment of pancreas without contrast. Splenic calcified granulomas. No hydronephrosis. Bilateral nonobstructive renal stones. Scattered prominent lymph nodes are again seen throughout the abdomen and pelvis. Also present on prior. Urinary bladder is largely decompressed with haziness of the adjacent fat. There are some thick-walled loops of small bowel seen including at the left-si ded the abdomen. The appendix is partially seen without significantdilatation. Degenerative changes throughout the spine with multilevel central canal and neural foraminal stenosis. There is repeat demonstration of some right-sided pubic bone fractures with some callus formation but fracture line still seen. IMPRESSION: * The liver is prominent in size with somewhat nodular contour. Would correlate for possible causes such as chronic hepatic disease. * No evidence of bowel obstruction. * Diffuse edema of soft tissues. * Calcific atherosclerosis. * Mild haziness the fat adjacent to the urinary bladder. Would correlate with symptoms in the region to ensure that there is not cystitis or bladder lesion contributing PE: GEN: NAD - up in chair, has eaten ~25% of regular lunch trat HEENT: Atraumatic, PERRL LUNGS: CTAB HEART: RRR ABD: NABS, S/ND/NT EXTREMITY: some BLE edema SKIN: No rashes, no jaundice NEURO/PSYCH: A & O 3, tearful - not her usual self A/P: A/P: BLE pain Chronic anemia, leukopenia, thrombocytopenia, macrocytosis - bone marrow biopsy recommended per heme/onc in the past H/o recurrent UGI bleeding (though no reports of bleeding this time), refractory ulcer - H. pylori negative x 2, last endotherapy 01/12/20 (has had 7 EGDs since 2016), past GDA embolization by and surgical evals (poor surgical candidate) GERD, cirrhosis, Hep C, h/o C Diff (last 05/2020 treated w/ vanco - still on list?), h/o pancreatitis CRC screen - last colonoscopy unremarkable at [facility] in 2019 ESRD on HD (h/o non-compliance), h/o alcohol overuse, elevated Alk Phos H/o COVID-19 infection -- Only complaint to me is severe pain in legs. Continue PPI, iron. IRIS SZYMANSKI Jul 06, 2020 15:20
[2020-07-06 18:48] LABS: BASO % 1 % (0-3); EOS # 0.1 x10^3/uL (0.0-0.7); EOS % 4 % (0-3); HEMATOCRIT 23.8 % (36.0-47.0); LYMPH # 0.4 x10^3/uL (1.0-4.8); LYMPH % 19 % (24-48); MEAN CORPUSCULAR HEMOGLOBIN 35 pg (25-35); MEAN CORPUSCULAR HGB CONC 34 g/dL (31-37); MEAN CORPUSCULAR VOLUME 104 fL (79-100); MONO # 0.3 x10^3/uL (0.0-1.1); MONO % 13 % (0-9); NEUT # 1.4 x10^3/uL (1.8-7.7); NEUT % 64 % (31-73); PLATELET COUNT 115 x10^3/uL (140-400); RED CELL DISTRIBUTION WIDTH 21.1 % (11.5-14.5); WHITE BLOOD COUNT 2.2 x10^3/uL (4.0-11.0)
[2020-07-06 19:00] VITALS: BP 124/58
[2020-07-06 19:20] LABS: ALBUMIN 2.9 g/dL (3.4-5.0); ALBUMIN/GLOBULIN RATIO 0.6 (1.0-1.7); CALCIUM 8.8 mg/dL (8.5-10.1); CREATININE 5.5 mg/dL (0.6-1.0); GFR 9.4; POTASSIUM 4.8 mmol/L (3.5-5.1); TOTAL BILIRUBIN 0.8 mg/dL (0.2-1.0); TOTAL PROTEIN 7.9 g/dL (6.4-8.2)
[2020-07-06 20:07] LABS: ANISOCYTOSIS MOD; PLT ESTIMATE DECREASED (ADEQUATE); POLYCHROMASIA SLIGHT
[2020-07-06] MEDS ORDERED: DARBEPOETIN ALFA 60 MCG/0.3 ML DISP.SYRIN. SQ SCH (21:00)
[2020-07-06 23:00] VITALS: BP 132/59
[2020-07-06] MEDS: ZOLPIDEM 5 MG TABLET. PO PRN (23:42)
[2020-07-07 03:00] VITALS: BP 126/54
[2020-07-07 07:00] VITALS: BP 114/54
--- NOTE | 2020-07-07 07:25 | PDOC ---
PROGRESS NOTES Date of Service: DATE: 07/07/20 TIME: 07:25 Chief Complaint Chief Complaint VTE Prophylaxis Ordered VTE Prophylaxis Devices: No VTE Pharmacological Prophylaxi: Contraindicated IMPRESSION Assessment/Plan Anemia macrocytic etiology undetermined at the present time Hyperkalemia Hyponatremia Diabetes-Type II, GERD, History of GI Bleed, recurrent Essential Hypertension, History of Kidney Stone, History of Pancreatitis ESRD on HD, History of CIRRHOSIS COVID 19 - 05/27/2020 positive testing, again on 06/14/2020 positive Acute anemia - Hb 7.6 Pancytopenia - possibly leukopenic from COVID 19, thrombocytopenic possibly from same vs ETOH use End-stage renal disease on dialysis - Nephrology consulted H/o pancreatitis, alcoholic - wine drinker. Counseled on cessation given her dialysis status and comorbidities Mild bilateral knee osteoarthritis with suspected trace right knee effusion. Chronic back pain Previous gastrointestinal bleed HX Clostridium difficile Cholelithiasis Obesity Trace tricuspid regurgitation with an estimated PAP of 52 mmHg. Arteriovenous shunt Moderate protein calorie malnutrition - Albumin 2.8 Back and shoulder pain s/p fall - PT evaluation +Hemoccult H/o recurrent UGI bleeding, refractory ulcer - H. pylori negative x 2, last endotherapy 01/12/20 (has had 7 EGDs since 2016), past GDA embolization (poor surgical candidate) GERD cirrhosis Hep C Plan: gi consult nephrology consult transfuse prn will admit for dialysis and correnction of electrolyte imbalance transfuse 1 unit of PRBCs resume home meds once available pain management with Fentanyl DVT prophylaxis: SCD needs DPOA D/W RN LEG PAIN SLOW TO RESOLVE 28 min pt exam, chart review, > 50% of time spent with exam, chart review, pt care coordination Justifications for Admission Justifications for Admission Other Justification History of Present Illness History of Present Illness Identification/Chief Complaint Chief Complaint I am hurting all over Source Source: Chart review, Patient History of Present Illness History of Present Illness History of Present Ilness Mrs Fernandez is a 65 year old female with past medical history of ESRD on HD who was in her usual state of health until of last week when she started experiencing "aching all over". 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 She is at the time of my evaluation in tears due to the discomfort, she cannot give a very good history due to her distress. She was evaluated in the ED and found to have anemia. Patient complained of lower back pain as well but no alarming signs were reported like saddle anesthesia, incontinence, weight loss or any other concerning symptoms. We have been asked to admit for dialysis and blood transfusion given anemia found on work up. Patient denies active bleeding. Plan of care discussed in detail. All concerns addressed to the best of my abilities She denies chest pain, no palpitations no shortness of breath, no angina type of symptoms. No hematemesis nor hematochezia reported. ER history as follows: ED Adult General Template Patient Name: Pam Fernandez Unit Number: [id number] Date of : 1955 Patient Status: Registered Emergency Room Attending Doctor: Meri Longoria Aprn Past Medical History Past Medical History Past Medical History: Anemia, Diabetes-Type II, GERD, GI Bleed, Hypertension, Kidney Stone, Pancreatitis, Pneumonia, Renal Failure, Other Additional Past Medical Histor: Ulcers,ESRD,C-DIFF,CIRRHOSIS Past Surgical History: Cholecystectomy, Other Additional Past Surgical Histo: LEFT UPPER dialysis shunt Smoking Status: Never Smoker Alcohol Use: None Drug Use: None Vitals Vitals Vital Signs Date Time Temp Pulse Resp B/P (MAP) Pulse Ox O2 Delivery O2 Flow Rate FiO2 07/07/20 03:00 98.1 68 16 126/54 (78) 100 Room Air 98.1 Physical Exam Physical Exam Physical Exam Physical Exam GEN.: No apparent distress. Alert and oriented. HEENT: Head is normocephalic, atraumatic NECK: Supple. LUNGS: Clear to auscultation. HEART: RRR, S1, S2 present. Peripheral pulses intact ABDOMEN: Soft, nontender. Positive bowel sounds. EXTREMITIES: Without any cyanosis. NEUROLOGIC: Normal speech, normal tone PSYCHIATRIC: Normal affect, normal mood. SKIN: No ulcerations General: Alert Lungs: Clear Labs LABS Laboratory Tests Test 07/06/20 07:27 07/06/20 11:12 07/06/20 16:50 07/06/20 18:10 Glucose (Fingerstick) 95 mg/dL (70-99) 83 mg/dL (70-99) 98 mg/dL (70-99) White Blood Count 2.2 x10^3/uL (4.0-11.0) Red Blood Count 2.30 x10^6/uL (3.50-5.40) Hemoglobin 8.0 g/dL (12.0-15.5) Hematocrit 23.8 % (36.0-47.0) Mean Corpuscular Volume 104 fL (79-100) Mean Corpuscular Hemoglobin 35 pg (25-35) Mean Corpuscular Hemoglobin Concent 34 g/dL (31-37) Red Cell Distribution Width 21.1 % (11.5-14.5) Platelet Count 115 x10^3/uL (140-400) Neutrophils (%) (Auto) 64 % (31-73) Lymphocytes (%) (Auto) 19 % (24-48) Monocytes (%) (Auto) 13 % (0-9) Eosinophils (%) (Auto) 4 % (0-3) Basophils (%) (Auto) 1 % (0-3) Neutrophils # (Auto) 1.4 x10^3/uL (1.8-7.7) Lymphocytes # (Auto) 0.4 x10^3/uL (1.0-4.8) Monocytes # (Auto) 0.3 x10^3/uL (0.0-1.1) Eosinophils # (Auto) 0.1 x10^3/uL (0.0-0.7) Basophils # (Auto) 0.0 x10^3/uL (0.0-0.2) Platelet Estimate Decreased (ADEQUATE) Polychromasia Slight Anisocytosis Mod Sodium Level 136 mmol/L (136-145) Potassium Level 4.8 mmol/L (3.5-5.1) Chloride Level 97 mmol/L (98-107) Carbon Dioxide Level 30 mmol/L (21-32) Anion Gap 9 (6-14) Blood Urea Nitrogen 39 mg/dL (7-20) Creatinine 5.5 mg/dL (0.6-1.0) Estimated GFR (Cockcroft-Gault) 9.4 BUN/Creatinine Ratio 7 (6-20) Glucose Level 177 mg/dL (70-99) Calcium Level 8.8 mg/dL (8.5-10.1) Total Bilirubin 0.8 mg/dL (0.2-1.0) Aspartate Amino Transf (AST/SGOT) 82 U/L (15-37) Alanine Aminotransferase (ALT/SGPT) 34 U/L (14-59) Alkaline Phosphatase 250 U/L (46-116) Total Protein 7.9 g/dL (6.4-8.2) Albumin 2.9 g/dL (3.4-5.0) Albumin/Globulin Ratio 0.6 (1.0-1.7) Test 07/06/20 20:27 Glucose (Fingerstick) 104 mg/dL (70-99) Assessment and Plan Assessmemt and Plan Problems Medical Problems: (1) Hemoglobin low Status: Acute (2) Intractable pain Status: Acute Comment Review of Relevant I have reviewed the following items tamika (where applicable) has been applied. Labs Laboratory Tests Test 07/05/20 13:50 07/05/20 15:06 07/05/20 21:39 07/06/20 07:27 White Blood Count 3.1 x10^3/uL (4.0-11.0) Red Blood Count 1.93 x10^6/uL (3.50-5.40) Hemoglobin 6.8 g/dL (12.0-15.5) Hematocrit 20.6 % (36.0-47.0) Mean Corpuscular Volume 107 fL (79-100) Mean Corpuscular Hemoglobin 35 pg (25-35) Mean Corpuscular Hemoglobin Concent 33 g/dL (31-37) Red Cell Distribution Width 18.8 % (11.5-14.5) Platelet Count 132 x10^3/uL (140-400) Neutrophils (%) (Auto) 62 % (31-73) Lymphocytes (%) (Auto) 16 % (24-48) Monocytes (%) (Auto) 16 % (0-9) Eosinophils (%) (Auto) 5 % (0-3) Basophils (%) (Auto) 1 % (0-3) Neutrophils # (Auto) 1.9 x10^3/uL (1.8-7.7) Lymphocytes # (Auto) 0.5 x10^3/uL (1.0-4.8) Monocytes # (Auto) 0.5 x10^3/uL (0.0-1.1) Eosinophils # (Auto) 0.1 x10^3/uL (0.0-0.7) Basophils # (Auto) 0.0 x10^3/uL (0.0-0.2) Prothrombin Time 14.3 SEC (11.7-14.0) Prothromb Time International Ratio 1.2 (0.8-1.1) Sodium Level 132 mmol/L (136-145) Potassium Level 6.7 mmol/L (3.5-5.1) Chloride Level 95 mmol/L (98-107) Carbon Dioxide Level 29 mmol/L (21-32) Anion Gap 8 (6-14) Blood Urea Nitrogen 63 mg/dL (7-20) Creatinine 7.6 mg/dL (0.6-1.0) Estimated GFR (Cockcroft-Gault) 6.5 BUN/Creatinine Ratio 8 (6-20) Glucose Level 80 mg/dL (70-99) Calcium Level 8.7 mg/dL (8.5-10.1) Iron Level 56 ug/dL (50-170) Total Iron Binding Capacity 263 ug/dL (250-450) Iron Saturation 21 % (15-34) Total Bilirubin 0.9 mg/dL (0.2-1.0) Aspartate Amino Transf (AST/SGOT) 87 U/L (15-37) Alanine Aminotransferase (ALT/SGPT) 33 U/L (14-59) Alkaline Phosphatase 307 U/L (46-116) Total Protein 7.9 g/dL (6.4-8.2) Albumin 3.2 g/dL (3.4-5.0) Albumin/Globulin Ratio 0.7 (1.0-1.7) Lipase 155 U/L (73-393) Stool Occult Blood Positive (NEG) Glucose (Fingerstick) 58 mg/dL (70-99) 95 mg/dL (70-99) Test 07/06/20 11:12 07/06/20 16:50 07/06/20 18:10 07/06/20 20:27 Glucose (Fingerstick) 83 mg/dL (70-99) 98 mg/dL (70-99) 104 mg/dL (70-99) White Blood Count 2.2 x10^3/uL (4.0-11.0) Red Blood Count 2.30 x10^6/uL (3.50-5.40) Hemoglobin 8.0 g/dL (12.0-15.5) Hematocrit 23.8 % (36.0-47.0) Mean Corpuscular Volume 104 fL (79-100) Mean Corpuscular Hemoglobin 35 pg (25-35) Mean Corpuscular Hemoglobin Concent 34 g/dL (31-37) Red Cell Distribution Width 21.1 % (11.5-14.5) Platelet Count 115 x10^3/uL (140-400) Neutrophils (%) (Auto) 64 % (31-73) Lymphocytes (%) (Auto) 19 % (24-48) Monocytes (%) (Auto) 13 % (0-9) Eosinophils (%) (Auto) 4 % (0-3) Basophils (%) (Auto) 1 % (0-3) Neutrophils # (Auto) 1.4 x10^3/uL (1.8-7.7) Lymphocytes # (Auto) 0.4 x10^3/uL (1.0-4.8) Monocytes # (Auto) 0.3 x10^3/uL (0.0-1.1) Eosinophils # (Auto) 0.1 x10^3/uL (0.0-0.7) Basophils # (Auto) 0.0 x10^3/uL (0.0-0.2) Platelet Estimate Decreased (ADEQUATE) Polychromasia Slight Anisocytosis Mod Sodium Level 136 mmol/L (136-145) Potassium Level 4.8 mmol/L (3.5-5.1) Chloride Level 97 mmol/L (98-107) Carbon Dioxide Level 30 mmol/L (21-32) Anion Gap 9 (6-14) Blood Urea Nitrogen 39 mg/dL (7-20) Creatinine 5.5 mg/dL (0.6-1.0) Estimated GFR (Cockcroft-Gault) 9.4 BUN/Creatinine Ratio 7 (6-20) Glucose Level 177 mg/dL (70-99) Calcium Level 8.8 mg/dL (8.5-10.1) Total Bilirubin 0.8 mg/dL (0.2-1.0) Aspartate Amino Transf (AST/SGOT) 82 U/L (15-37) Alanine Aminotransferase (ALT/SGPT) 34 U/L (14-59) Alkaline Phosphatase 250 U/L (46-116) Total Protein 7.9 g/dL (6.4-8.2) Albumin 2.9 g/dL (3.4-5.0) Albumin/Globulin Ratio 0.6 (1.0-1.7) Laboratory Tests Test 07/06/20 07:27 07/06/20 11:12 07/06/20 16:50 07/06/20 18:10 Glucose (Fingerstick) 95 mg/dL (70-99) 83 mg/dL (70-99) 98 mg/dL (70-99) White Blood Count 2.2 x10^3/uL (4.0-11.0) Red Blood Count 2.30 x10^6/uL (3.50-5.40) Hemoglobin 8.0 g/dL (12.0-15.5) Hematocrit 23.8 % (36.0-47.0) Mean Corpuscular Volume 104 fL (79-100) Mean Corpuscular Hemoglobin 35 pg (25-35) Mean Corpuscular Hemoglobin Concent 34 g/dL (31-37) Red Cell Distribution Width 21.1 % (11.5-14.5) Platelet Count 115 x10^3/uL (140-400) Neutrophils (%) (Auto) 64 % (31-73) Lymphocytes (%) (Auto) 19 % (24-48) Monocytes (%) (Auto) 13 % (0-9) Eosinophils (%) (Auto) 4 % (0-3) Basophils (%) (Auto) 1 % (0-3) Neutrophils # (Auto) 1.4 x10^3/uL (1.8-7.7) Lymphocytes # (Auto) 0.4 x10^3/uL (1.0-4.8) Monocytes # (Auto) 0.3 x10^3/uL (0.0-1.1) Eosinophils # (Auto) 0.1 x10^3/uL (0.0-0.7) Basophils # (Auto) 0.0 x10^3/uL (0.0-0.2) Platelet Estimate Decreased (ADEQUATE) Polychromasia Slight Anisocytosis Mod Sodium Level 136 mmol/L (136-145) Potassium Level 4.8 mmol/L (3.5-5.1) Chloride Level 97 mmol/L (98-107) Carbon Dioxide Level 30 mmol/L (21-32) Anion Gap 9 (6-14) Blood Urea Nitrogen 39 mg/dL (7-20) Creatinine 5.5 mg/dL (0.6-1.0) Estimated GFR (Cockcroft-Gault) 9.4 BUN/Creatinine Ratio 7 (6-20) Glucose Level 177 mg/dL (70-99) Calcium Level 8.8 mg/dL (8.5-10.1) Total Bilirubin 0.8 mg/dL (0.2-1.0) Aspartate Amino Transf (AST/SGOT) 82 U/L (15-37) Alanine Aminotransferase (ALT/SGPT) 34 U/L (14-59) Alkaline Phosphatase 250 U/L (46-116) Total Protein 7.9 g/dL (6.4-8.2) Albumin 2.9 g/dL (3.4-5.0) Albumin/Globulin Ratio 0.6 (1.0-1.7) Test 07/06/20 20:27 Glucose (Fingerstick) 104 mg/dL (70-99) Medications Current Medications Fentanyl Citrate (Fentanyl 2ml Vial) 50 mcg 1X ONCE IVP Last administered on 07/05/20at 13:26; Start 07/05/20 at 13:15; Stop 07/05/20 at 13:16; Status DC Calcium Gluconate (Calcium Gluconate) 1,000 mg 1X ONCE IVP Last administered on 07/05/20at 15:26; Start 07/05/20 at 15:00; Stop 07/05/20 at 15:01; Status DC Sodium Bicarbonate (Sodium Bicarb Adult 8.4% Syr) 50 meq 1X ONCE IV Last administered on 07/05/20at 15:23; Start 07/05/20 at 15:00; Stop 07/05/20 at 15:01; Status DC Dextrose (Dextrose 50%-Water Syringe) 25 gm 1X ONCE IV Last administered on 07/05/20at 15:29; Start 07/05/20 at 15:00; Stop 07/05/20 at 15:01; Status DC Insulin Human Regular (HumuLIN R VIAL) 10 unit 1X ONCE IV Last administered on 07/05/20at 15:31; Start 07/05/20 at 15:00; Stop 07/05/20 at 15:01; Status DC Albuterol Sulfate (Ventolin Neb Soln) 10 mg 1X ONCE CONT NEB Last administered on 07/05/20at 16:05; Start 07/05/20 at 15:00; Stop 07/05/20 at 15:01; Status DC Fentanyl Citrate (Fentanyl 2ml Vial) 50 mcg 1X ONCE IVP Last administered on 07/05/20at 15:22; Start 07/05/20 at 15:30; Stop 07/05/20 at 15:31; Status DC Ondansetron HCl (Zofran) 4 mg PRN Q4HRS PRN IV NAUSEA/VOMITING; Start 07/05/20 at 15:15 Zolpidem Tartrate (Ambien) 5 mg PRN QHS PRN PO INSOMNIA Last administered on 07/06/20at 23:42; Start 07/05/20 at 15:15 Acetaminophen (Tylenol) 650 mg PRN Q4HRS PRN PO TEMP OVER 100.4F OR MILD PAIN; Start 07/05/20 at 15:15 Docusate Sodium (Colace) 100 mg PRN BID PRN PO HARD STOOLS; Start 07/05/20 at 15:15 Albuterol Sulfate (Ventolin Neb Soln) 2.5 mg PRN Q4HRS PRN NEB SHORTNESS OF BREATH; Start 07/05/20 at 15:15; Stop 07/05/20 at 15:21; Status DC Guaifenesin (Robitussin) 200 mg PRN Q4HRS PRN PO COUGH; Start 07/05/20 at 15:15 Lorazepam (Ativan) 0.5 mg PRN Q4HRS PRN PO ANXIETY / AGITATION; Start 07/05/20 at 15:15 Lorazepam (Ativan Inj) 2 mg PRN Q4HRS PRN IV ANXIETY / AGITATION Last administered on 07/07/20at 04:32; Start 07/05/20 at 15:15 Acetaminophen (Tylenol) 500 mg PRN Q6HRS PRN PO pain or fever; Start 07/05/20 at 15:15; Stop 07/05/20 at 15:20; Status DC Albuterol Sulfate (Ventolin Neb Soln) 2.5 mg PRN Q2HRS PRN NEB SOB / WHILE AWAKE; Start 07/05/20 at 15:15 Ferrous Sulfate (Feosol) 325 mg BIDWMEALS PO Last administered on 07/06/20at 17:54; Start 07/05/20 at 17:00 Acetaminophen/ Hydrocodone Bitart (Lortab 5/325) 1 tab PRN Q6HRS PRN PO MODERATE - SEVERE PAIN Last administered on 07/06/20at 23:42; Start 07/05/20 at 15:15 Pantoprazole Sodium (Protonix) 40 mg DAILYAC PO Last administered on 07/06/20at 10:37; Start 07/06/20 at 07:30 Vancomycin HCl (Vancomycin Oral Solution) 125 mg [id number] PO ; Start 07/05/20 at 17:00 Carvedilol (Coreg) 25 mg BIDWMEALS PO Last administered on 07/06/20at 17:55; Start 07/05/20 at 17:00 Folic Acid (Folic Acid) 1 mg DAILY PO Last administered on 07/06/20at 10:37; Start 07/06/20 at 09:00 Sodium Chloride 1,000 ml @ 1,000 mls/hr Q1H PRN IV hypotension; Start 07/05/20 at 16:30; Stop 07/05/20 at 22:29; Status DC Albumin Human 200 ml @ 200 mls/hr 1X PRN PRN IV Hypotension; Start 07/05/20 at 16:30; Stop 07/05/20 at 22:29; Status DC Sodium Chloride 1,000 ml @ 400 mls/hr Q2H30M PRN IV PATENCY; Start 07/05/20 at 16:30; Stop 07/06/20 at 04:29; Status DC Info (PHARMACY MONITORING -- do not chart) 1 each PRN DAILY PRN MC SEE COMMENTS; Start 07/05/20 at 16:30 Pharmacy Consult (C.diff Med Screen By Rx) 1 each 1X ONCE MC ; Start 07/05/20 at 22:30; Stop 07/05/20 at 22:31; Status Cancel Lactobacillus Rhamnosus (Culturelle) 1 cap BID PO Last administered on 07/06/20at 10:45; Start 07/06/20 at 10:00 Darbepoetin [place] (ARANESP for DIALYSIS PTS) 60 mcg We SQ Last administered on 07/06/20at 23:42; Start 07/06/20 at 21:00 Active Scripts Active [place] 5-325 Tablet (Acetaminophen/Hydrocodone Bitart) 1 Each Tablet 1 Tab PO PRN Q6HRS PRN 6 Days Feosol (Ferrous Sulfate) 325 Mg Tablet 325 Mg PO BIDWMEALS 60 Days Proair Hfa (Albuterol Sulfate) 8.5 Gm Hfa.aer.ad 2.5 Mg NEB PRN Q2HRS PRN 30 Days Pantoprazole Sodium (Pantoprazole Sodium) 40 Mg Tablet.dr 40 Mg PO DAILYAC 30 Days Reported Carvedilol 25 Mg Tablet 25 Mg PO BIDWMEALS Folic Acid 0.4 Mg Tablet 0.4 Mg PO DAILY Acetaminophen 500 Mg Tablet 1 Tab PO PRN Q6HRS PRN 15 Days Vitals/I & O Vital Sign - Last 24 Hours 07/06/20 07/06/20 07/06/20 07/06/20 07:39 08:00 08:39 10:38 Pulse 68 Resp 20 20 B/P (MAP) 108/52 Pulse Ox 94 O2 Delivery Room Air Room Air Room Air 07/06/20 07/06/20 07/06/20 07/06/20 10:59 15:09 17:55 17:58 Temp 97.9 98.1 97.9 98.1 Pulse 68 90 90 Resp 18 20 20 B/P (MAP) 108/75 (86) 112/61 (78) 112/61 Pulse Ox 97 94 94 O2 Delivery Room Air Room Air Room Air 07/06/20 07/06/20 07/06/20 07/06/20 18:58 19:00 23:00 23:42 Temp 97.4 97.5 97.4 97.5 Pulse 66 68 Resp 20 16 16 18 B/P (MAP) 124/58 (80) 132/59 (83) Pulse Ox 100 100 100 O2 Delivery Room Air Room Air Room Air Room Air 07/07/20 03:00 Temp 98.1 98.1 Pulse 68 Resp 16 B/P (MAP) 126/54 (78) Pulse Ox 100 O2 Delivery Room Air Intake and Output 07/06/20 07/06/20 07/07/20 14:59 22:59 06:59 Intake Total 240 ml 36 ml 560 ml Balance 240 ml 36 ml 560 ml Justicifation of Admission Dx: Justifications for Admission: Justification of Admission Dx: Yes Acute Renal Failure: Serum Cr > 4mg/dL Chronic Renal Failure: Hemodynamic Instability Sepsis: Infection ASHIA MOSS MD Jul 07, 2020 07:25
[2020-07-07] MEDS: PANTOPRAZOLE 40 MG TABLET.DR. PO SCH (07:30)
[2020-07-07] MEDS ORDERED: IV NORMAL SALINE 1000ML BAG 1,000 ML IV PRN ×2 (07:30→13:45)
[2020-07-07] MEDS: CARVEDILOL 12.5 MG TABLET. PO SCH ×2 (08:00→18:36)
[2020-07-07] MEDS: FERROUS SULFATE 325 MG TABLET. PO SCH ×2 (08:00→18:17)
[2020-07-07] MEDS: VANCOMYCIN 125 MG/2.5 ML ORAL SOLUTION. PO SCH ×4 (09:00→21:00)
[2020-07-07] MEDS: FOLIC ACID 1 MG TABLET. PO SCH (09:00)
[2020-07-07] MEDS: LACTOBACILLUS RHAMNOSUS GG 1 CAPSULE. PO SCH ×2 (09:00→21:00)
--- NOTE | 2020-07-07 10:55 | PDOC ---
Date of Service: DATE: 07/07/20 TIME: 10:53 Objective: Objective: As yesterday, no GI concerns per nurse - eats winston crackers round the clock. Vital Signs: Vital Signs Date Time Temp Pulse Resp B/P (MAP) Pulse Ox O2 Delivery O2 Flow Rate FiO2 07/07/20 07:00 98.2 66 18 114/54 (74) 98 Room Air 98.2 Labs: Laboratory Tests Test 07/06/20 11:12 07/06/20 16:50 07/06/20 20:27 07/07/20 08:02 Glucose (Fingerstick) 83 mg/dL (70-99) 98 mg/dL (70-99) 104 mg/dL (70-99) 86 mg/dL (70-99) PE: GEN: dialyzing NEURO/PSYCH: resting, not disturbed A/P: Chronic anemia - improved w/ transfusion -- Has chronic GI issues - these are stable. Continue PPI and iron. Justicifation of Admission Dx: Justifications for Admission: Justification of Admission Dx: Yes Acute Renal Failure: Serum Cr > 4mg/dL Chronic Renal Failure: Hemodynamic Instability Sepsis: Infection IRIS SZYMANSKI Jul 07, 2020 10:55
--- NOTE | 2020-07-07 11:53 | PDOC ---
Renal-Progress Notes Subjective Notes Notes NO NEW COMPLAINTS History of Present Illness Hx of present illness NO CHANGE Vitals Vitals Vital Signs Date Time Temp Pulse Resp B/P (MAP) Pulse Ox O2 Delivery O2 Flow Rate FiO2 07/07/20 08:00 Room Air 07/07/20 07:00 98.2 66 18 114/54 (74) 98 98.2 Weight Weight [ ] I.O. Intake and Output Intake and Output 07/07/20 07:00 Intake Total 836 ml Balance 836 ml Intake Oral 836 ml # Voids 1 Labs Labs Laboratory Tests Test 07/06/20 16:50 07/06/20 18:10 07/06/20 20:27 07/07/20 08:02 Glucose (Fingerstick) 98 mg/dL (70-99) 104 mg/dL (70-99) 86 mg/dL (70-99) White Blood Count 2.2 x10^3/uL (4.0-11.0) Red Blood Count 2.30 x10^6/uL (3.50-5.40) Hemoglobin 8.0 g/dL (12.0-15.5) Hematocrit 23.8 % (36.0-47.0) Mean Corpuscular Volume 104 fL (79-100) Mean Corpuscular Hemoglobin 35 pg (25-35) Mean Corpuscular Hemoglobin Concent 34 g/dL (31-37) Red Cell Distribution Width 21.1 % (11.5-14.5) Platelet Count 115 x10^3/uL (140-400) Neutrophils (%) (Auto) 64 % (31-73) Lymphocytes (%) (Auto) 19 % (24-48) Monocytes (%) (Auto) 13 % (0-9) Eosinophils (%) (Auto) 4 % (0-3) Basophils (%) (Auto) 1 % (0-3) Neutrophils # (Auto) 1.4 x10^3/uL (1.8-7.7) Lymphocytes # (Auto) 0.4 x10^3/uL (1.0-4.8) Monocytes # (Auto) 0.3 x10^3/uL (0.0-1.1) Eosinophils # (Auto) 0.1 x10^3/uL (0.0-0.7) Basophils # (Auto) 0.0 x10^3/uL (0.0-0.2) Platelet Estimate Decreased (ADEQUATE) Polychromasia Slight Anisocytosis Mod Sodium Level 136 mmol/L (136-145) Potassium Level 4.8 mmol/L (3.5-5.1) Chloride Level 97 mmol/L (98-107) Carbon Dioxide Level 30 mmol/L (21-32) Anion Gap 9 (6-14) Blood Urea Nitrogen 39 mg/dL (7-20) Creatinine 5.5 mg/dL (0.6-1.0) Estimated GFR (Cockcroft-Gault) 9.4 BUN/Creatinine Ratio 7 (6-20) Glucose Level 177 mg/dL (70-99) Calcium Level 8.8 mg/dL (8.5-10.1) Total Bilirubin 0.8 mg/dL (0.2-1.0) Aspartate Amino Transf (AST/SGOT) 82 U/L (15-37) Alanine Aminotransferase (ALT/SGPT) 34 U/L (14-59) Alkaline Phosphatase 250 U/L (46-116) Total Protein 7.9 g/dL (6.4-8.2) Albumin 2.9 g/dL (3.4-5.0) Albumin/Globulin Ratio 0.6 (1.0-1.7) Review of Systems Constitutional: yes: weakness, alert Ears/Nose/Throat: Yes: no symptom reported Eyes: Yes: no symptom reported Pulmonary: Yes no symptom reported Cardiovascular: Yes no symptom reported Gastrointestional: Yes: no symptom reported Genitourinary: Yes: no symptom reported Musculoskeletal: Yes: leg pain, muscle stiffness Skin: Yes no symptom reported Psychiatric/Neurological: Yes: no symptom reported Endocrine: Yes: no symptom reported Physical Exam General Appearance: no apparent distress, afebrile Skin: warm Respiratory: bilateral CTA Abdomen: soft, bowel sounds present Genitourinary: bladder flat Extremities: pulses present Neurology: alert Assessment Assessment IMP HYPERKALEMIA-RESOLVED ESRD ANEMIA PANCYTOPENIA LE PAIN PLAN HD TODAY UF TO DW HD AGAIN TOMORROW STARTED OSMIN PRBC NEEDED WILL FOLLOW LINNEA SHULTZ MD Jul 07, 2020 11:53
[2020-07-07] MEDS ORDERED: ALBUMIN HUMAN 25% 200 ML IV PRN (13:45)
[2020-07-07] MEDS ORDERED: DIALYSIS PATIENT. MC PRN ×2 (13:45)
[2020-07-07 15:00] VITALS: BP 113/50
--- NOTE | 2020-07-07 15:33 | NUR ---
SW following. Reviewed chart and discussed with RN. Pt from home with [facility]. Pt to resume out-patient dialysis with [facility] at discharge. Met with pt today who is a/o and able to make needs known. Pt requesting to complete POA HC. Pt listed her daughter Imani Bronson ([phone]) as her primary agent and her daughter Kelly Martin ([phone]) as her alternate agent. SW spoke with both daughters who are agreeable. POA HC notarized and provided to pt with a copy on the pt's chart. SW to follow.
[2020-07-07 16:20] LABS: ALBUMIN 2.8 g/dL (3.4-5.0); ALBUMIN/GLOBULIN RATIO 0.6 (1.0-1.7); CALCIUM 8.7 mg/dL (8.5-10.1); CREATININE 3.6 mg/dL (0.6-1.0); GFR 15.3; POTASSIUM 3.6 mmol/L (3.5-5.1); TOTAL BILIRUBIN 0.8 mg/dL (0.2-1.0); TOTAL PROTEIN 7.7 g/dL (6.4-8.2)
[2020-07-07] MEDS: HYDROcodone/APAP 5/325MG 1 TAB TABLET PO PRN (18:35)
[2020-07-07 19:00] VITALS: BP 114/49
[2020-07-07 23:00] VITALS: BP_SYST 108; BP_SYST 109; BP_DIAS 45; BP_DIAS 97
[2020-07-08] MEDS: HYDROcodone/APAP 5/325MG 1 TAB TABLET PO PRN ×3 (01:02→17:13)
[2020-07-08 03:00] VITALS: BP 108/37
[2020-07-08 07:30] VITALS: BP 128/65
[2020-07-08] MEDS: PANTOPRAZOLE 40 MG TABLET.DR. PO SCH (07:30)
[2020-07-08 07:42] LABS: BASO % 1 % (0-3); EOS # 0.1 x10^3/uL (0.0-0.7); EOS % 5 % (0-3); HEMATOCRIT 22.6 % (36.0-47.0); HEMOGLOBIN 7.5 g/dL (12.0-15.5); LYMPH # 0.4 x10^3/uL (1.0-4.8); LYMPH % 20 % (24-48); MEAN CORPUSCULAR HEMOGLOBIN 34 pg (25-35); MEAN CORPUSCULAR HGB CONC 33 g/dL (31-37); MEAN CORPUSCULAR VOLUME 103 fL (79-100); MONO # 0.3 x10^3/uL (0.0-1.1); MONO % 17 % (0-9); NEUT # 1.1 x10^3/uL (1.8-7.7); NEUT % 57 % (31-73); PLATELET COUNT 99 x10^3/uL (140-400); RED BLOOD COUNT 2.19 x10^6/uL (3.50-5.40)
[2020-07-08] MEDS: FOLIC ACID 1 MG TABLET. PO SCH (08:22)
[2020-07-08] MEDS: LACTOBACILLUS RHAMNOSUS GG 1 CAPSULE. PO SCH ×2 (08:22→22:06)
[2020-07-08] MEDS: FERROUS SULFATE 325 MG TABLET. PO SCH ×2 (08:22→17:10)
[2020-07-08] MEDS: VANCOMYCIN 125 MG/2.5 ML ORAL SOLUTION. PO SCH ×4 (08:26→22:06)
--- NOTE | 2020-07-08 08:44 | PDOC ---
PROGRESS NOTES Date of Service: DATE: 07/08/20 TIME: 08:44 Chief Complaint Chief Complaint VTE Prophylaxis Ordered VTE Prophylaxis Devices: No VTE Pharmacological Prophylaxi: Contraindicated IMPRESSION Assessment/Plan Anemia macrocytic etiology undetermined at the present time Hyperkalemia Hyponatremia Diabetes-Type II, GERD, History of GI Bleed, recurrent Essential Hypertension, History of Kidney Stone, History of Pancreatitis ESRD on HD, History of CIRRHOSIS COVID 19 - 05/27/2020 positive testing, again on 06/14/2020 positive Acute anemia - Hb 7.6 Pancytopenia - possibly leukopenic from COVID 19, thrombocytopenic possibly from same vs ETOH use End-stage renal disease on dialysis - Nephrology consulted H/o pancreatitis, alcoholic - wine drinker. Counseled on cessation given her dialysis status and comorbidities Mild bilateral knee osteoarthritis with suspected trace right knee effusion. Chronic back pain Previous gastrointestinal bleed HX Clostridium difficile Cholelithiasis Obesity Trace tricuspid regurgitation with an estimated PAP of 52 mmHg. Arteriovenous shunt Moderate protein calorie malnutrition - Albumin 2.8 Back and shoulder pain s/p fall - PT evaluation +Hemoccult H/o recurrent UGI bleeding, refractory ulcer - H. pylori negative x 2, last endotherapy 01/12/20 (has had 7 EGDs since 2016), past GDA embolization (poor surgical candidate) GERD cirrhosis Hep C low back pain, not well controlled 07/08 Plan: gi consult nephrology consult transfuse prn will admit for dialysis and correnction of electrolyte imbalance transfuse 1 unit of PRBCs resume home meds once available pain management with Fentanyl DVT prophylaxis: SCD lidoderm patch, pt/ot consult DR ESTRELLA needs DPOA D/W RN LEG PAIN SLOW TO RESOLVE 07/08 29 min pt exam, chart review, > 50% of time spent with exam, chart review, pt care coordination Justifications for Admission Justifications for Admission Other Justification History of Present Illness History of Present Illness Identification/Chief Complaint Chief Complaint I am hurting all over Source Source: Chart review, Patient History of Present Illness History of Present Illness History of Present Ilness Mrs Fernandez is a 65 year old female with past medical history of ESRD on HD who was in her usual state of health until of last week when she started experiencing "aching all over". she had a doppler of her legs ordered by her data warehouse manager. She is at the time of my evaluation in tears due to the discomfort, she cannot give a very good history due to her distress. She was evaluated in the ED and found to have anemia. Patient complained of lower back pain as well but no alarming signs were reported like saddle anesthesia, inco ntinence, weight loss or any other concerning symptoms. We have been asked to admit for dialysis and blood transfusion given anemia found on work up. Patient denies active bleeding. Plan of care discussed in detail. All concerns addressed to the best of my abilities She denies chest pain, no palpitations no shortness of breath, no angina type of symptoms. No hematemesis nor hematochezia reported. ER history as follows: ED Adult General Template Patient Name: Pam Fernandez Unit Number: [id number] Date of : 1955 Patient Status: Registered Emergency Room Attending Doctor: Meri Longoria Aprn Past Medical History Past Medical History Past Medical History: Anemia, Diabetes-Type II, GERD, GI Bleed, Hypertension, Kidney Stone, Pancreatitis, Pneumonia, Renal Failure, Other Additional Past Medical Histor: Ulcers,ESRD,C-DIFF,CIRRHOSIS Past Surgical History: Cholecystectomy, Other Additional Past Surgical Histo: LEFT UPPER dialysis shunt Smoking Status: Never Smoker Alcohol Use: None Drug Use: None Vitals Vitals Vital Signs Date Time Temp Pulse Resp B/P (MAP) Pulse Ox O2 Delivery O2 Flow Rate FiO2 07/08/20 08:24 20 94 Room Air 07/08/20 03:00 98.3 71 108/37 (60) 98.3 Physical Exam Physical Exam Physical Exam Physical Exam GEN.: No apparent distress. Alert and oriented. HEENT: Head is normocephalic, atraumatic NECK: Supple. LUNGS: Clear to auscultation. HEART: RRR, S1, S2 present. Peripheral pulses intact ABDOMEN: Soft, nontender. Positive bowel sounds. EXTREMITIES: Without any cyanosis. NEUROLOGIC: Normal speech, normal tone PSYCHIATRIC: Normal affect, normal mood. SKIN: No ulcerations General: Alert, Oriented X3, Cooperative, No acute distress Heart: Regular rate, Normal S1 Lungs: Clear Abdomen: Normal bowel sounds, Soft, No tenderness Extremities: No cyanosis Skin: No significant lesion Labs LABS Laboratory Tests Test 07/07/20 15:25 07/07/20 17:19 07/07/20 21:09 07/08/20 06:55 Sodium Level 137 mmol/L (136-145) Potassium Level 3.6 mmol/L (3.5-5.1) Chloride Level 98 mmol/L (98-107) Carbon Dioxide Level 34 mmol/L (21-32) Anion Gap 5 (6-14) Blood Urea Nitrogen 23 mg/dL (7-20) Creatinine 3.6 mg/dL (0.6-1.0) Estimated GFR (Cockcroft-Gault) 15.3 BUN/Creatinine Ratio 6 (6-20) Glucose Level 112 mg/dL (70-99) Calcium Level 8.7 mg/dL (8.5-10.1) Total Bilirubin 0.8 mg/dL (0.2-1.0) Aspartate Amino Transf (AST/SGOT) 66 U/L (15-37) Alanine Aminotransferase (ALT/SGPT) 29 U/L (14-59) Alkaline Phosphatase 212 U/L (46-116) Total Protein 7.7 g/dL (6.4-8.2) Albumin 2.8 g/dL (3.4-5.0) Albumin/Globulin Ratio 0.6 (1.0-1.7) Glucose (Fingerstick) 101 mg/dL (70-99) 103 mg/dL (70-99) White Blood Count 2.0 x10^3/uL (4.0-11.0) Red Blood Count 2.19 x10^6/uL (3.50-5.40) Hemoglobin 7.5 g/dL (12.0-15.5) Hematocrit 22.6 % (36.0-47.0) Mean Corpuscular Volume 103 fL (79-100) Mean Corpuscular Hemoglobin 34 pg (25-35) Mean Corpuscular Hemoglobin Concent 33 g/dL (31-37) Red Cell Distribution Width 20.0 % (11.5-14.5) Platelet Count 99 x10^3/uL (140-400) Neutrophils (%) (Auto) 57 % (31-73) Lymphocytes (%) (Auto) 20 % (24-48) Monocytes (%) (Auto) 17 % (0-9) Eosinophils (%) (Auto) 5 % (0-3) Basophils (%) (Auto) 1 % (0-3) Neutrophils # (Auto) 1.1 x10^3/uL (1.8-7.7) Lymphocytes # (Auto) 0.4 x10^3/uL (1.0-4.8) Monocytes # (Auto) 0.3 x10^3/uL (0.0-1.1) Eosinophils # (Auto) 0.1 x10^3/uL (0.0-0.7) Basophils # (Auto) 0.0 x10^3/uL (0.0-0.2) Test 07/08/20 08:20 Glucose (Fingerstick) 141 mg/dL (70-99) Assessment and Plan Assessmemt and Plan Problems Medical Problems: (1) Hemoglobin low Status: Acute (2) Intractable pain Status: Acute Comment Review of Relevant I have reviewed the following items tamika (where applicable) has been applied. Labs Laboratory Tests Test 07/06/20 11:12 07/06/20 16:50 07/06/20 18:10 07/06/20 20:27 Glucose (Fingerstick) 83 mg/dL (70-99) 98 mg/dL (70-99) 104 mg/dL (70-99) White Blood Count 2.2 x10^3/uL (4.0-11.0) Red Blood Count 2.30 x10^6/uL (3.50-5.40) Hemoglobin 8.0 g/dL (12.0-15.5) Hematocrit 23.8 % (36.0-47.0) Mean Corpuscular Volume 104 fL (79-100) Mean Corpuscular Hemoglobin 35 pg (25-35) Mean Corpuscular Hemoglobin Concent 34 g/dL (31-37) Red Cell Distribution Width 21.1 % (11.5-14.5) Platelet Count 115 x10^3/uL (140-400) Neutrophils (%) (Auto) 64 % (31-73) Lymphocytes (%) (Auto) 19 % (24-48) Monocytes (%) (Auto) 13 % (0-9) Eosinophils (%) (Auto) 4 % (0-3) Basophils (%) (Auto) 1 % (0-3) Neutrophils # (Auto) 1.4 x10^3/uL (1.8-7.7) Lymphocytes # (Auto) 0.4 x10^3/uL (1.0-4.8) Monocytes # (Auto) 0.3 x10^3/uL (0.0-1.1) Eosinophils # (Auto) 0.1 x10^3/uL (0.0-0.7) Basophils # (Auto) 0.0 x10^3/uL (0.0-0.2) Platelet Estimate Decreased (ADEQUATE) Polychromasia Slight Anisocytosis Mod Sodium Level 136 mmol/L (136-145) Potassium Level 4.8 mmol/L (3.5-5.1) Chloride Level 97 mmol/L (98-107) Carbon Dioxide Level 30 mmol/L (21-32) Anion Gap 9 (6-14) Blood Urea Nitrogen 39 mg/dL (7-20) Creatinine 5.5 mg/dL (0.6-1.0) Estimated GFR (Cockcroft-Gault) 9.4 BUN/Creatinine Ratio 7 (6-20) Glucose Level 177 mg/dL (70-99) Calcium Level 8.8 mg/dL (8.5-10.1) Total Bilirubin 0.8 mg/dL (0.2-1.0) Aspartate Amino Transf (AST/SGOT) 82 U/L (15-37) Alanine Aminotransferase (ALT/SGPT) 34 U/L (14-59) Alkaline Phosphatase 250 U/L (46-116) Total Protein 7.9 g/dL (6.4-8.2) Albumin 2.9 g/dL (3.4-5.0) Albumin/Globulin Ratio 0.6 (1.0-1.7) Test 07/07/20 08:02 07/07/20 15:25 07/07/20 17:19 07/07/20 21:09 Glucose (Fingerstick) 86 mg/dL (70-99) 101 mg/dL (70-99) 103 mg/dL (70-99) Sodium Level 137 mmol/L (136-145) Potassium Level 3.6 mmol/L (3.5-5.1) Chloride Level 98 mmol/L (98-107) Carbon Dioxide Level 34 mmol/L (21-32) Anion Gap 5 (6-14) Blood Urea Nitrogen 23 mg/dL (7-20) Creatinine 3.6 mg/dL (0.6-1.0) Estimated GFR (Cockcroft-Gault) 15.3 BUN/Creatinine Ratio 6 (6-20) Glucose Level 112 mg/dL (70-99) Calcium Level 8.7 mg/dL (8.5-10.1) Total Bilirubin 0.8 mg/dL (0.2-1.0) Aspartate Amino Transf (AST/SGOT) 66 U/L (15-37) Alanine Aminotransferase (ALT/SGPT) 29 U/L (14-59) Alkaline Phosphatase 212 U/L (46-116) Total Protein 7.7 g/dL (6.4-8.2) Albumin 2.8 g/dL (3.4-5.0) Albumin/Globulin Ratio 0.6 (1.0-1.7) Test 07/08/20 06:55 07/08/20 08:20 White Blood Count 2.0 x10^3/uL (4.0-11.0) Red Blood Count 2.19 x10^6/uL (3.50-5.40) Hemoglobin 7.5 g/dL (12.0-15.5) Hematocrit 22.6 % (36.0-47.0) Mean Corpuscular Volume 103 fL (79-100) Mean Corpuscular Hemoglobin 34 pg (25-35) Mean Corpuscular Hemoglobin Concent 33 g/dL (31-37) Red Cell Distribution Width 20.0 % (11.5-14.5) Platelet Count 99 x10^3/uL (140-400) Neutrophils (%) (Auto) 57 % (31-73) Lymphocytes (%) (Auto) 20 % (24-48) Monocytes (%) (Auto) 17 % (0-9) Eosinophils (%) (Auto) 5 % (0-3) Basophils (%) (Auto) 1 % (0-3) Neutrophils # (Auto) 1.1 x10^3/uL (1.8-7.7) Lymphocytes # (Auto) 0.4 x10^3/uL (1.0-4.8) Monocytes # (Auto) 0.3 x10^3/uL (0.0-1.1) Eosinophils # (Auto) 0.1 x10^3/uL (0.0-0.7) Basophils # (Auto) 0.0 x10^3/uL (0.0-0.2) Glucose (Fingerstick) 141 mg/dL (70-99) Laboratory Tests Test 07/07/20 15:25 07/07/20 17:19 07/07/20 21:09 07/08/20 06:55 Sodium Level 137 mmol/L (136-145) Potassium Level 3.6 mmol/L (3.5-5.1) Chloride Level 98 mmol/L (98-107) Carbon Dioxide Level 34 mmol/L (21-32) Anion Gap 5 (6-14) Blood Urea Nitrogen 23 mg/dL (7-20) Creatinine 3.6 mg/dL (0.6-1.0) Estimated GFR (Cockcroft-Gault) 15.3 BUN/Creatinine Ratio 6 (6-20) Glucose Level 112 mg/dL (70-99) Calcium Level 8.7 mg/dL (8.5-10.1) Total Bilirubin 0.8 mg/dL (0.2-1.0) Aspartate Amino Transf (AST/SGOT) 66 U/L (15-37) Alanine Aminotransferase (ALT/SGPT) 29 U/L (14-59) Alkaline Phosphatase 212 U/L (46-116) Total Protein 7.7 g/dL (6.4-8.2) Albumin 2.8 g/dL (3.4-5.0) Albumin/Globulin Ratio 0.6 (1.0-1.7) Glucose (Fingerstick) 101 mg/dL (70-99) 103 mg/dL (70-99) White Blood Count 2.0 x10^3/uL (4.0-11.0) Red Blood Count 2.19 x10^6/uL (3.50-5.40) Hemoglobin 7.5 g/dL (12.0-15.5) Hematocrit 22.6 % (36.0-47.0) Mean Corpuscular Volume 103 fL (79-100) Mean Corpuscular Hemoglobin 34 pg (25-35) Mean Corpuscular Hemoglobin Concent 33 g/dL (31-37) Red Cell Distribution Width 20.0 % (11.5-14.5) Platelet Count 99 x10^3/uL (140-400) Neutrophils (%) (Auto) 57 % (31-73) Lymphocytes (%) (Auto) 20 % (24-48) Monocytes (%) (Auto) 17 % (0-9) Eosinophils (%) (Auto) 5 % (0-3) Basophils (%) (Auto) 1 % (0-3) Neutrophils # (Auto) 1.1 x10^3/uL (1.8-7.7) Lymphocytes # (Auto) 0.4 x10^3/uL (1.0-4.8) Monocytes # (Auto) 0.3 x10^3/uL (0.0-1.1) Eosinophils # (Auto) 0.1 x10^3/uL (0.0-0.7) Basophils # (Auto) 0.0 x10^3/uL (0.0-0.2) Test 07/08/20 08:20 Glucose (Fingerstick) 141 mg/dL (70-99) Medications Current Medications Fentanyl Citrate (Fentanyl 2ml Vial) 50 mcg 1X ONCE IVP Last administered on 07/05/20at 13:26; Start 07/05/20 at 13:15; Stop 07/05/20 at 13:16; Status DC Calcium Gluconate (Calcium Gluconate) 1,000 mg 1X ONCE IVP Last administered on 07/05/20at 15:26; Start 07/05/20 at 15:00; Stop 07/05/20 at 15:01; Status DC Sodium Bicarbonate (Sodium Bicarb Adult 8.4% Syr) 50 meq 1X ONCE IV Last adm inistered on 07/05/20at 15:23; Start 07/05/20 at 15:00; Stop 07/05/20 at 15:01; Status DC Dextrose (Dextrose 50%-Water Syringe) 25 gm 1X ONCE IV Last administered on 07/05/20at 15:29; Start 07/05/20 at 15:00; Stop 07/05/20 at 15:01; Status DC Insulin Human Regular (HumuLIN R VIAL) 10 unit 1X ONCE IV Last administered on 07/05/20at 15:31; Start 07/05/20 at 15:00; Stop 07/05/20 at 15:01; Status DC Albuterol Sulfate (Ventolin Neb Soln) 10 mg 1X ONCE CONT NEB Last administered on 07/05/20at 16:05; Start 07/05/20 at 15:00; Stop 07/05/20 at 15:01; Status DC Fentanyl Citrate (Fentanyl 2ml Vial) 50 mcg 1X ONCE IVP Last administered on 07/05/20at 15:22; Start 07/05/20 at 15:30; Stop 07/05/20 at 15:31; Status DC Ondansetron HCl (Zofran) 4 mg PRN Q4HRS PRN IV NAUSEA/VOMITING; Start 07/05/20 at 15:15 Zolpidem Tartrate (Ambien) 5 mg PRN QHS PRN PO INSOMNIA Last administered on 07/06/20at 23:42; Start 07/05/20 at 15:15 Acetaminophen (Tylenol) 650 mg PRN Q4HRS PRN PO TEMP OVER 100.4F OR MILD PAIN; Start 07/05/20 at 15:15 Docusate Sodium (Colace) 100 mg PRN BID PRN PO HARD STOOLS; Start 07/05/20 at 15:15 Albuterol Sulfate (Ventolin Neb Soln) 2.5 mg PRN Q4HRS PRN NEB SHORTNESS OF BREATH; Start 07/05/20 at 15:15; Stop 07/05/20 at 15:21; Status DC Guaifenesin (Robitussin) 200 mg PRN Q4HRS PRN PO COUGH; Start 07/05/20 at 15:15 Lorazepam (Ativan) 0.5 mg PRN Q4HRS PRN PO ANXIETY / AGITATION; Start 07/05/20 at 15:15 Lorazepam (Ativan Inj) 2 mg PRN Q4HRS PRN IV ANXIETY / AGITATION Last administered on 07/07/20at 04:32; Start 07/05/20 at 15:15 Acetaminophen (Tylenol) 500 mg PRN Q6HRS PRN PO pain or fever; Start 07/05/20 at 15:15; Stop 07/05/20 at 15:20; Status DC Albuterol Sulfate (Ventolin Neb Soln) 2.5 mg PRN Q2HRS PRN NEB SOB / WHILE AWAKE; Start 07/05/20 at 15:15 Ferrous Sulfate (Feosol) 325 mg BIDWMEALS PO Last administered on 07/08/20at 08:22; Start 07/05/20 at 17:00 Acetaminophen/ Hydrocodone Bitart (Lortab 5/325) 1 tab PRN Q6HRS PRN PO MODERATE - SEVERE PAIN Last administered on 07/08/20at 08:24; Start 07/05/20 at 15:15 Pantoprazole Sodium (Protonix) 40 mg DAILYAC PO Last administered on 07/08/20at 07:30; Start 07/06/20 at 07:30 Vancomycin HCl (Vancomycin Oral Solution) 125 mg [id number] PO Last administered on 07/08/20at 08:26; Start 07/05/20 at 17:00 Carvedilol (Coreg) 25 mg BIDWMEALS PO Last administered on 07/07/20at 18:36; Start 07/05/20 at 17:00 Folic Acid (Folic Acid) 1 mg DAILY PO Last administered on 07/08/20at 08:22; Start 07/06/20 at 09:00 Sodium Chloride 1,000 ml @ 1,000 mls/hr Q1H PRN IV hypotension; Start 07/05/20 at 16:30; Stop 07/05/20 at 22:29; Status DC Albumin Human 200 ml @ 200 mls/hr 1X PRN PRN IV Hypotension; Start 07/05/20 at 16:30; Stop 07/05/20 at 22:29; Status DC Sodium Chloride 1,000 ml @ 400 mls/hr Q2H30M PRN IV PATENCY; Start 07/05/20 at 16:30; Stop 07/06/20 at 04:29; Status DC Info (PHARMACY MONITORING -- do not chart) 1 each PRN DAILY PRN MC SEE COMMENTS; Start 07/05/20 at 16:30; Status Cancel Pharmacy Consult (C.diff Med Screen By Rx) 1 each 1X ONCE MC ; Start 07/05/20 at 22:30; Stop 07/05/20 at 22:31; Status Cancel Lactobacillus Rhamnosus (Culturelle) 1 cap BID PO Last administered on 07/08/20at 08:22; Start 07/06/20 at 10:00 Darbepoetin [place] (ARANESP for DIALYSIS PTS) 60 mcg We SQ Last administered on 07/06/20at 23:42; Start 07/06/20 at 21:00 Sodium Chloride 1,000 ml @ 1,000 mls/hr Q1H PRN IV hypotension; Start 07/07/20 at 13:45; Stop 07/07/20 at 19:44; Status DC Albumin Human 200 ml @ 200 mls/hr 1X PRN PRN IV Hypotension; Start 07/07/20 at 13:45; Stop 07/07/20 at 19:44; Status DC Sodium Chloride 1,000 ml @ 400 mls/hr Q2H30M PRN IV PATENCY; Start 07/07/20 at 07:30; Stop 07/07/20 at 19:29; Status DC Info (PHARMACY MONITORING -- do not chart) 1 each PRN DAILY PRN MC SEE COMMENTS; Start 07/07/20 at 13:45; Status UNV Info (PHARMACY MONITORING -- do not chart) 1 each PRN DAILY PRN MC SEE COMMENTS; Start 07/07/20 at 13:45 Active Scripts Active [place] 5-325 Tablet (Acetaminophen/Hydrocodone Bitart) 1 Each Tablet 1 Tab PO PRN Q6HRS PRN 6 Days Feosol (Ferrous Sulfate) 325 Mg Tablet 325 Mg PO BIDWMEALS 60 Days Proair Hfa (Albuterol Sulfate) 8.5 Gm Hfa.aer.ad 2.5 Mg NEB PRN Q2HRS PRN 30 Days Pantoprazole Sodium (Pantoprazole Sodium) 40 Mg Tablet.dr 40 Mg PO DAILYAC 30 Days Reported Carvedilol 25 Mg Tablet 25 Mg PO BIDWMEALS Folic Acid 0.4 Mg Tablet 0.4 Mg PO DAILY Acetaminophen 500 Mg Tablet 1 Tab PO PRN Q6HRS PRN 15 Days Vitals/I & O Vital Sign - Last 24 Hours 07/07/20 07/07/20 07/07/20 07/07/20 15:00 18:35 18:36 19:00 Temp 97.7 98.5 97.7 98.5 Pulse 73 73 75 Resp 18 20 18 B/P (MAP) 113/50 (71) 113/50 114/49 (70) Pulse Ox 93 93 99 O2 Delivery Room Air Room Air Room Air 07/07/20 07/07/20 07/07/20 07/07/20 19:35 20:00 23:00 23:00 Temp 98.6 98.3 98.6 98.3 Pulse 71 60 Resp 18 18 B/P (MAP) 108/97 (101) 109/45 (66) Pulse Ox 99 100 98 O2 Delivery Room Air Room Air Room Air Room Air 07/08/20 07/08/20 07/08/20 07/08/20 01:02 02:10 03:00 08:24 Temp 98.3 98.3 Pulse 71 Resp 18 20 B/P (MAP) 108/37 (60) Pulse Ox 100 100 100 94 O2 Delivery Room Air Room Air Room Air Room Air Intake and Output 07/07/20 07/07/20 07/08/20 15:00 23:00 07:00 Intake Total 61 ml 75 ml Balance 61 ml 75 ml Justicifation of Admission Dx: Justifications for Admission: Justification of Admission Dx: Yes Acute Renal Failure: Serum Cr > 4mg/dL Chronic Renal Failure: Hemodynamic Instability Sepsis: Infection ASHIA MOSS MD Jul 08, 2020 08:44
[2020-07-08 11:15] VITALS: BP 111/48
[2020-07-08] MEDS: LIDOCAINE (700MG/PATCH) PATCH. TD SCH (11:58)
--- NOTE | 2020-07-08 12:38 | PDOC ---
Date of Service: DATE: 07/08/20 TIME: 12:36 Subjective: Subjective: Still no GI complaints, eating winston crackers. Has leg pain and wants answers. Trying pain patch. Objective: Vital Signs: Vital Signs Date Time Temp Pulse Resp B/P (MAP) Pulse Ox O2 Delivery O2 Flow Rate FiO2 07/08/20 09:30 19 93 Room Air 07/08/20 07:30 97.9 69 128/65 (86) 97.9 Labs: Laboratory Tests Test 07/07/20 15:25 07/07/20 17:19 07/07/20 21:09 07/08/20 06:55 Sodium Level 137 mmol/L Potassium Level 3.6 mmol/L Chloride Level 98 mmol/L Carbon Dioxide Level 34 mmol/L Anion Gap 5 Blood Urea Nitrogen 23 mg/dL Creatinine 3.6 mg/dL Estimated GFR (Cockcroft-Gault) 15.3 BUN/Creatinine Ratio 6 Glucose Level 112 mg/dL Calcium Level 8.7 mg/dL Total Bilirubin 0.8 mg/dL Aspartate Amino Transf (AST/SGOT) 66 U/L Alanine Aminotransferase (ALT/SGPT) 29 U/L Alkaline Phosphatase 212 U/L Total Protein 7.7 g/dL Albumin 2.8 g/dL Albumin/Globulin Ratio 0.6 Glucose (Fingerstick) 101 mg/dL 103 mg/dL White Blood Count 2.0 x10^3/uL Red Blood Count 2.19 x10^6/uL Hemoglobin 7.5 g/dL Hematocrit 22.6 % Mean Corpuscular Volume 103 fL Mean Corpuscular Hemoglobin 34 pg Mean Corpuscular Hemoglobin Concent 33 g/dL Red Cell Distribution Width 20.0 % Platelet Count 99 x10^3/uL Neutrophils (%) (Auto) 57 % Lymphocytes (%) (Auto) 20 % Monocytes (%) (Auto) 17 % Eosinophils (%) (Auto) 5 % Basophils (%) (Auto) 1 % Neutrophils # (Auto) 1.1 x10^3/uL Lymphocytes # (Auto) 0.4 x10^3/uL Monocytes # (Auto) 0.3 x10^3/uL Eosinophils # (Auto) 0.1 x10^3/uL Basophils # (Auto) 0.0 x10^3/uL Test 07/08/20 08:20 07/08/20 12:06 Glucose (Fingerstick) 141 mg/dL 116 mg/dL PE: GEN: NAD, up in chair LUNGS: clear HEART: RRR ABD: non-tender NEURO/PSYCH: A & O 3, tearful A/P: Chronic anemia BLE pain -- Stable from GI standpoint. Justicifation of Admission Dx: Justifications for Admission: Justification of Admission Dx: Yes Acute Renal Failure: Serum Cr > 4mg/dL Chronic Renal Failure: Hemodynamic Instability Sepsis: Infection IRIS SZYMANSKI Jul 08, 2020 12:38
--- NOTE | 2020-07-08 12:38 | PDOC ---
Renal-Progress Notes Subjective Notes Notes NONE History of Present Illness Hx of present illness NO CHANGE Vitals Vitals Vital Signs Date Time Temp Pulse Resp B/P (MAP) Pulse Ox O2 Delivery O2 Flow Rate FiO2 07/08/20 09:30 19 93 Room Air 07/08/20 07:30 97.9 69 128/65 (86) 97.9 Weight Weight [ ] I.O. Intake and Output Intake and Output 07/08/20 07:00 Intake Total 136 ml Balance 136 ml Intake Oral 136 ml # Voids 1 # Bowel Movements 1 Labs Labs Laboratory Tests Test 07/07/20 15:25 07/07/20 17:19 07/07/20 21:09 07/08/20 06:55 Sodium Level 137 mmol/L (136-145) Potassium Level 3.6 mmol/L (3.5-5.1) Chloride Level 98 mmol/L (98-107) Carbon Dioxide Level 34 mmol/L (21-32) Anion Gap 5 (6-14) Blood Urea Nitrogen 23 mg/dL (7-20) Creatinine 3.6 mg/dL (0.6-1.0) Estimated GFR (Cockcroft-Gault) 15.3 BUN/Creatinine Ratio 6 (6-20) Glucose Level 112 mg/dL (70-99) Calcium Level 8.7 mg/dL (8.5-10.1) Total Bilirubin 0.8 mg/dL (0.2-1.0) Aspartate Amino Transf (AST/SGOT) 66 U/L (15-37) Alanine Aminotransferase (ALT/SGPT) 29 U/L (14-59) Alkaline Phosphatase 212 U/L (46-116) Total Protein 7.7 g/dL (6.4-8.2) Albumin 2.8 g/dL (3.4-5.0) Albumin/Globulin Ratio 0.6 (1.0-1.7) Glucose (Fingerstick) 101 mg/dL (70-99) 103 mg/dL (70-99) White Blood Count 2.0 x10^3/uL (4.0-11.0) Red Blood Count 2.19 x10^6/uL (3.50-5.40) Hemoglobin 7.5 g/dL (12.0-15.5) Hematocrit 22.6 % (36.0-47.0) Mean Corpuscular Volume 103 fL (79-100) Mean Corpuscular Hemoglobin 34 pg (25-35) Mean Corpuscular Hemoglobin Concent 33 g/dL (31-37) Red Cell Distribution Width 20.0 % (11.5-14.5) Platelet Count 99 x10^3/uL (140-400) Neutrophils (%) (Auto) 57 % (31-73) Lymphocytes (%) (Auto) 20 % (24-48) Monocytes (%) (Auto) 17 % (0-9) Eosinophils (%) (Auto) 5 % (0-3) Basophils (%) (Auto) 1 % (0-3) Neutrophils # (Auto) 1.1 x10^3/uL (1.8-7.7) Lymphocytes # (Auto) 0.4 x10^3/uL (1.0-4.8) Monocytes # (Auto) 0.3 x10^3/uL (0.0-1.1) Eosinophils # (Auto) 0.1 x10^3/uL (0.0-0.7) Basophils # (Auto) 0.0 x10^3/uL (0.0-0.2) Test 07/08/20 08:20 07/08/20 12:06 Glucose (Fingerstick) 141 mg/dL (70-99) 116 mg/dL (70-99) Review of Systems Constitutional: yes: weakness, alert Ears/Nose/Throat: Yes: no symptom reported Eyes: Yes: no symptom reported Pulmonary: Yes no symptom reported Cardiovascular: Yes no symptom reported Gastrointestional: Yes: no symptom reported Genitourinary: Yes: no symptom reported Musculoskeletal: Yes: leg pain, muscle stiffness Skin: Yes no symptom reported Psychiatric/Neurological: Yes: no symptom reported Endocrine: Yes: no symptom reported Physical Exam General Appearance: no apparent distress, afebrile Skin: warm Respiratory: bilateral CTA Abdomen: soft, bowel sounds present Genitourinary: bladder flat Extremities: pulses present Neurology: alert Assessment Assessment IMP HYPERKALEMIA-RESOLVED ESRD ANEMIA PANCYTOPENIA LE PAIN PLAN HD TOMORROW STARTED OSMIN PRBC NEEDED WILL FOLLOW LINNEA SHULTZ MD Jul 08, 2020 12:38
[2020-07-08] MEDS ORDERED: methylPREDNISolone ACETATE 40 MG/ML VIAL. ONE (14:00)
[2020-07-08] MEDS ORDERED: methylPREDNISolone ACETATE 40 MG/ML VIAL. INJ ONE (14:00)
[2020-07-08] MEDS ORDERED: BUPIVACAINE MPF 0.25% 10 ML VIAL. ONE (14:00)
[2020-07-08] MEDS ORDERED: BUPIVACAINE MPF 0.25% 10 ML VIAL. INJ ONE (14:00)
--- NOTE | 2020-07-08 14:19 | PDOC4 ---
PROCEDURE Procedure At her request,I have injected painful right knee joint under aseptic skin t echnique,with alcohol skin prep,using 2 ml of 0.25% bypivacaine solution mixed with 1 ml of methylprednisone 40 mg/1 ml solution and she tolerated the procedure satisfactorily without any side effects. SUSY ESTRELLA MD Jul 08, 2020 14:19
--- NOTE | 2020-07-08 14:38 | CONS ---
DATE OF CONSULTATION: 07/08/2020 ATTENDING PHYSICIAN: Dr. Almodovar REASON FOR CONSULTATION: The patient was seen at the request of Dr. Patel for evaluation about her back and lower extremity pain. HISTORY OF PRESENT ILLNESS: This is a 65-year-old female with known end-stage renal disease, on hemodialysis. The patient lives in a [place] apartment, walks with a walker. The patient started having aching pain all over and had Doppler studies of her leg ordered by the cable coverer. The patient was found with anemia in the Emergency Room, also complained of lower back pain as well. The patient is not known allergic to any medication. PAST MEDICAL HISTORY: Significant for anemia, diabetes mellitus type 2, gastroesophageal reflux disease, previous gastrointestinal bleeding, hypertension, kidney stones, pancreatitis, pneumonia, renal failure, C. diff colitis, cirrhosis of liver, cholecystectomy. Also had history of rheumatoid arthritis and she had surgery for right tibia fracture. The patient also had hyperparathyroidism. FAMILY HISTORY: Family history of alcohol abuse, carcinoma, hypercholesterolemia, hypertension. The patient had CT scan of the abdomen and pelvis, which revealed liver size is prominent with some nodular contour probably from chronic hepatic disease. No evidence of any bowel obstruction, diffuse edema of soft tissues, calcific atherosclerosis, mild haziness in the fat adjacent to the urinary bladder and also degenerative changes with multilevel central canal and neural foraminal stenosis of lumbar vertebrae and some right-sided pubic bone fractures with some callus formation, but fracture line is still seen. Chest x-ray revealed mild congestive heart failure. Doppler studies of both lower extremities failed to reveal any significant stenosis, mild amount of diffuse plaque and significant subcutaneous edema bilaterally and venous duplex Doppler studies failed to reveal evidence of deep venous thrombosis in her left lower extremity. PHYSICAL EXAMINATION: On physical examination today revealed a middle-aged female. She is alert, cooperative, moves all 4 extremities voluntarily where she had 4+/5 grade muscle strength and deep tendon reflexes are absent at both knees and ankles. She had equal perception of touch and pinprick sensation bilaterally. She had crepitus on range of motion of both knee joints and painful limited movements of both knee joints. She had diffuse tenderness to palpation over medial and lateral knee joint line and over a right trochanteric bursa and over sacroiliac joint area bilaterally. She had pain free range of motion of both hip joints. Straight leg raising test is negative bilaterally. She had significant edema of her lower extremities, right side more than left side. She had equal perception of touch and pinprick sensation bilaterally. She is independent with bed mobility and transfers and she walks with limping on her right foot. ASSESSMENT: A middle-aged female with painful degenerative joint disease of both knees and chronic lower back pain from degenerative disk disease and degenerative joint disease of lumbar vertebrae with associated right trochanteric bursitis and no clinical evidence of ongoing lumbar radiculopathy. She presents with clinical evidence of peripheral neuropathy, most probably from her diabetes mellitus with associated congestive heart failure in a patient with known end-stage renal disease, hypertension, hyperlipidemia, anemia, gastroesophageal reflux disease, GI bleeding, pancreatitis. RECOMMENDATION: Recommendation to obtain x-rays of her knees and to proceed with injecting painful right knee joint to help ease her pain to also try vascular boot to help ease some of her foot and leg edema. To consider injecting right trochanteric bursa and sacroiliac joint area if her pain persists. Dr. Patel, I appreciate asking me to participate in the care of this interesting patient. I will be glad to follow her with you as needed for rehabilitation. SUSY ESTRELLA MD DR: BRIANNE/danial JOB#: [id number] / [id number]
[2020-07-08 15:00] VITALS: BP 116/54
[2020-07-08] MEDS: CARVEDILOL 12.5 MG TABLET. PO SCH ×2 (17:00→17:10)
--- NOTE | 2020-07-08 17:01 | NUR ---
ANITA following. Spoke with RN and reviewed chart. Pt will likely discharge home over the weekend with resumption of out-patient dialysis. Pt does out-patient dialysis on Tuesdays, and Saturdays at [facility], , (fax). Pt added to the potential weekend discharge list.
[2020-07-08 19:00] VITALS: BP 126/57
[2020-07-08] MEDS: LORazepam 0.5 MG TABLET PO PRN (19:25)
[2020-07-08] MEDS: PATCH REMOVAL. MC SCH (21:00)
[2020-07-08] MEDS: DICLOFENAC SODIUM 1% TOPICAL GEL 100GM TUBE. TP SCH (22:07)
[2020-07-08 23:00] VITALS: BP 124/44
[2020-07-09] MEDS: HYDROcodone/APAP 5/325MG 1 TAB TABLET PO PRN ×2 (01:51→08:04)
[2020-07-09 03:00] VITALS: BP 127/56
[2020-07-09] MEDS ORDERED: IV NORMAL SALINE 1000ML BAG 1,000 ML IV PRN ×2 (07:30)
[2020-07-09] MEDS ORDERED: ALBUMIN HUMAN 25% 200 ML IV PRN (07:30)
[2020-07-09] MEDS ORDERED: DIALYSIS PATIENT. MC PRN ×2 (07:30)
[2020-07-09 08:15] VITALS: BP 125/62
[2020-07-09] MEDS: VANCOMYCIN 125 MG/2.5 ML ORAL SOLUTION. PO SCH ×4 (09:00→19:45)
[2020-07-09 09:05] LABS: ALBUMIN 2.6 g/dL (3.4-5.0); CALCIUM 8.4 mg/dL (8.5-10.1); CREATININE 5.1 mg/dL (0.6-1.0); GFR 10.2; PHOSPHORUS 4.1 mg/dL (2.6-4.7); POTASSIUM 4.1 mmol/L (3.5-5.1)
--- NOTE | 2020-07-09 10:24 | PDOC ---
DATE OF SERVICE DATE: 07/09/20 TIME: 10:24 SUBJECTIVE ROS seen on Dialysis , No complaints OBJECTIVE Vital Signs Vital Signs Date Time Temp Pulse Resp B/P (MAP) Pulse Ox O2 Delivery O2 Flow Rate FiO2 07/09/20 08:15 98.0 67 18 125/62 (83) Room Air 98.0 07/09/20 07:00 100 I & 0 Intake and Output 07/09/20 07:00 Intake Total 220 ml Balance 220 ml Intake Oral 220 ml # Bowel Movements 1 PHYSICAL EXAM Physical Exam GEN.: No apparent distress. HEENT: OM moist NECK: Supple. LUNGS: Clear to auscultation, non labored HEART: RRR, S1, S2 present. ABDOMEN: Soft, nontender. Positive bowel sounds. EXTREMITIES: No LE edema ,Left extremity fistula without signs of any complications. NEUROLOGIC: grossly normal SKIN: No rash No CVA or SP tenderness, No Carbajal DIAGNOSIS/ASSESSMENT Assessment & Plan ESRD 2/ 2 DM and HTN, On TTS schedule Seen on HD , tolerating well , continue as ordered , Sán[place] De La Torre HyperKalemia- Resolved Nonobstructing calculi in the right kidney with no hydronephrosis or obstructive uropathy seen. H/o pancreatitis, alcoholic - wine drinker. H/o recurrent UGI bleeding, refractory ulcer - H. pylori negative x 2, last endotherapy 01/12/20 (has had 7 EGDs since 2016), past GDA embolization by and surgical evals (poor surgical candidate) GERD, cirrhosis, Hep C, h/o C Diff, h/o pancreatitis Anemia - COMMENT/RELEVANT DATA Meds Current Medications Medications (Trade) Dose Ordered Sig/Kimberly Start Time Stop Time Status Last Admin Dose Admin Acetaminophen (Tylenol) 500 mg PRN Q6HRS PRN 07/05/20 15:15 07/05/20 15:20 DC Acetaminophen/ Hydrocodone Bitart (Lortab 5/325) 1 tab PRN Q6HRS PRN 07/05/20 15:15 07/09/20 08:04 1 TAB Albumin Human 200 ml @ 200 mls/hr 1X PRN PRN 07/09/20 07:30 07/09/20 13:29 07/09/20 09:33 200 MLS/HR Albuterol Sulfate (Ventolin Neb Soln) 2.5 mg PRN Q2HRS PRN 07/05/20 15:15 Bupivacaine HCl (Sensorcaine-Mpf 0.25%) 10 ml 1X ONCE 07/08/20 14:00 07/08/20 14:01 DC Calcium Gluconate (Calcium Gluconate) 1,000 mg 1X ONCE 07/05/20 15:00 07/05/20 15:01 DC 07/05/20 15:26 1,000 MG Carvedilol (Coreg) 25 mg BIDWMEALS 07/05/20 17:00 07/08/20 17:10 25 MG Darbepoetin Bolivar (ARANESP for DIALYSIS PTS) 60 mcg We 07/06/20 21:00 07/06/20 23:42 60 MCG Dextrose (Dextrose 50%-Water Syringe) 25 gm 1X ONCE 07/05/20 15:00 07/05/20 15:01 DC 07/05/20 15:29 25 GM Diclofenac Sodium (Voltaren) 1 leonila BID 07/08/20 21:00 07/08/20 22:07 1 LEONILA Docusate Sodium (Colace) 100 mg PRN BID PRN 07/05/20 15:15 Fentanyl Citrate (Fentanyl 2ml Vial) 50 mcg 1X ONCE 07/05/20 15:30 07/05/20 15:31 DC 07/05/20 15:22 50 MCG Ferrous Sulfate (Feosol) 325 mg BIDWMEALS 07/05/20 17:00 07/08/20 17:10 325 MG Folic Acid (Folic Acid) 1 mg DAILY 07/06/20 09:00 07/08/20 08:22 1 MG Guaifenesin (Robitussin) 200 mg PRN Q4HRS PRN 07/05/20 15:15 Info (PHARMACY MONITORING -- do not chart) 1 each PRN DAILY PRN 07/09/20 07:30 UNV Insulin Human Regular (HumuLIN R VIAL) 10 unit 1X ONCE 07/05/20 15:00 07/05/20 15:01 DC 07/05/20 15:31 10 UNIT Lactobacillus Rhamnosus (Culturelle) 1 cap BID 07/06/20 10:00 07/08/20 22:06 1 CAP Lidocaine (Lidoderm) 1 patch DAILY 07/08/20 11:00 07/08/20 11:58 1 PATCH Lorazepam (Ativan Inj) 2 mg PRN Q4HRS PRN 07/05/20 15:15 07/07/20 04:32 2 MG Lorazepam (Ativan) 0.5 mg PRN Q4HRS PRN 07/05/20 15:15 07/08/20 19:25 0.5 MG Methylprednisolone Acetate (DEPO-Medrol 40MG VIAL) 40 mg 1X ONCE 07/08/20 14:00 07/08/20 14:01 DC Miscellaneous (Lidoderm Patch Removal) 1 ea QHS 07/08/20 21:00 07/08/20 21:00 1 EA Ondansetron HCl (Zofran) 4 mg PRN Q4HRS PRN 07/05/20 15:15 Pantoprazole Sodium (Protonix) 40 mg DAILYAC 07/06/20 07:30 07/08/20 07:30 40 MG Pharmacy Consult (C.diff Med Screen By Rx) 1 each 1X ONCE 07/05/20 22:30 07/05/20 22:31 Cancel Sodium Bicarbonate (Sodium Bicarb Adult 8.4% Syr) 50 meq 1X ONCE 07/05/20 15:00 07/05/20 15:01 DC 07/05/20 15:23 50 MEQ Sodium Chloride 1,000 ml @ 400 mls/hr Q2H30M PRN 07/09/20 07:30 07/09/20 19:29 Vancomycin HCl (Vancomycin Oral Solution) 125 mg [id number] 07/05/20 17:00 07/08/20 22:06 125 MG Zolpidem Tartrate (Ambien) 5 mg PRN QHS PRN 07/05/20 15:15 07/06/20 23:42 5 MG Lab Laboratory Tests Test 07/08/20 12:06 07/08/20 16:59 07/08/20 20:31 07/09/20 04:10 Glucose (Fingerstick) 116 mg/dL (70-99) 133 mg/dL (70-99) 134 mg/dL (70-99) Hemoglobin 7.3 g/dL (12.0-15.5) Test 07/09/20 08:28 Sodium Level 136 mmol/L (136-145) Potassium Level 4.1 mmol/L (3.5-5.1) Chloride Level 98 mmol/L (98-107) Carbon Dioxide Level 30 mmol/L (21-32) Anion Gap 8 (6-14) Blood Urea Nitrogen 38 mg/dL (7-20) Creatinine 5.1 mg/dL (0.6-1.0) Estimated GFR (Cockcroft-Gault) 10.2 Glucose Level 140 mg/dL (70-99) Calcium Level 8.4 mg/dL (8.5-10.1) Phosphorus Level 4.1 mg/dL (2.6-4.7) Albumin 2.6 g/dL (3.4-5.0) Results All relevant outside records, renal labs, imaging studies, telemetry/EKG's were reviewed. Justicifation of Admission Dx: Justifications for Admission: Justification of Admission Dx: Yes Acute Renal Failure: Serum Cr > 4mg/dL Chronic Renal Failure: Hemodynamic Instability Sepsis: Infection GINO TAN MD Jul 09, 2020 10:24
--- NOTE | 2020-07-09 10:30 | PDOC ---
PROGRESS NOTES Date of Service DATE: 07/09/20 TIME: 10:27 Subjective Subjective She feels better with right knee pain and also like vascular boot. Objective Objective Vital Signs Date Time Temp Pulse Resp B/P (MAP) Pulse Ox O2 Delivery O2 Flow Rate FiO2 07/09/20 08:15 98.0 67 18 125/62 (83) Room Air 98.0 07/09/20 07:00 100 Intake and Output 07/09/20 07:00 Intake Total 220 ml Balance 220 ml Intake Oral 220 ml # Bowel Movements 1 Physical Exam Physical Exam She is supine in bed receiving hemodialysis and is alert. Knee x-rays were not taken yet. Assessment Assessment Problems Medical Problems: (1) Hemoglobin low Status: Acute (2) Intractable pain Status: Acute Plan Plan of Care To get her up as tolerated. Comment Review of Relevant I have reviewed the following items tamika (where applicable) has been applied. Labs Laboratory Tests Test 07/07/20 15:25 07/07/20 17:19 07/07/20 21:09 07/08/20 06:55 Sodium Level 137 mmol/L (136-145) Potassium Level 3.6 mmol/L (3.5-5.1) Chloride Level 98 mmol/L (98-107) Carbon Dioxide Level 34 mmol/L (21-32) Anion Gap 5 (6-14) Blood Urea Nitrogen 23 mg/dL (7-20) Creatinine 3.6 mg/dL (0.6-1.0) Estimated GFR (Cockcroft-Gault) 15.3 BUN/Creatinine Ratio 6 (6-20) Glucose Level 112 mg/dL (70-99) Calcium Level 8.7 mg/dL (8.5-10.1) Total Bilirubin 0.8 mg/dL (0.2-1.0) Aspartate Amino Transf (AST/SGOT) 66 U/L (15-37) Alanine Aminotransferase (ALT/SGPT) 29 U/L (14-59) Alkaline Phosphatase 212 U/L (46-116) Total Protein 7.7 g/dL (6.4-8.2) Albumin 2.8 g/dL (3.4-5.0) Albumin/Globulin Ratio 0.6 (1.0-1.7) Glucose (Fingerstick) 101 mg/dL (70-99) 103 mg/dL (70-99) White Blood Count 2.0 x10^3/uL (4.0-11.0) Red Blood Count 2.19 x10^6/uL (3.50-5.40) Hemoglobin 7.5 g/dL (12.0-15.5) Hematocrit 22.6 % (36.0-47.0) Mean Corpuscular Volume 103 fL (79-100) Mean Corpuscular Hemoglobin 34 pg (25-35) Mean Corpuscular Hemoglobin Concent 33 g/dL (31-37) Red Cell Distribution Width 20.0 % (11.5-14.5) Platelet Count 99 x10^3/uL (140-400) Neutrophils (%) (Auto) 57 % (31-73) Lymphocytes (%) (Auto) 20 % (24-48) Monocytes (%) (Auto) 17 % (0-9) Eosinophils (%) (Auto) 5 % (0-3) Basophils (%) (Auto) 1 % (0-3) Neutrophils # (Auto) 1.1 x10^3/uL (1.8-7.7) Lymphocytes # (Auto) 0.4 x10^3/uL (1.0-4.8) Monocytes # (Auto) 0.3 x10^3/uL (0.0-1.1) Eosinophils # (Auto) 0.1 x10^3/uL (0.0-0.7) Basophils # (Auto) 0.0 x10^3/uL (0.0-0.2) Test 07/08/20 08:20 07/08/20 12:06 07/08/20 16:59 07/08/20 20:31 Glucose (Fingerstick) 141 mg/dL (70-99) 116 mg/dL (70-99) 133 mg/dL (70-99) 134 mg/dL (70-99) Test 07/09/20 04:10 07/09/20 08:28 Hemoglobin 7.3 g/dL (12.0-15.5) Sodium Level 136 mmol/L (136-145) Potassium Level 4.1 mmol/L (3.5-5.1) Chloride Level 98 mmol/L (98-107) Carbon Dioxide Level 30 mmol/L (21-32) Anion Gap 8 (6-14) Blood Urea Nitrogen 38 mg/dL (7-20) Creatinine 5.1 mg/dL (0.6-1.0) Estimated GFR (Cockcroft-Gault) 10.2 Glucose Level 140 mg/dL (70-99) Calcium Level 8.4 mg/dL (8.5-10.1) Phosphorus Level 4.1 mg/dL (2.6-4.7) Albumin 2.6 g/dL (3.4-5.0) Laboratory Tests Test 07/08/20 12:06 07/08/20 16:59 07/08/20 20:31 07/09/20 04:10 Glucose (Fingerstick) 116 mg/dL (70-99) 133 mg/dL (70-99) 134 mg/dL (70-99) Hemoglobin 7.3 g/dL (12.0-15.5) Test 07/09/20 08:28 Sodium Level 136 mmol/L (136-145) Potassium Level 4.1 mmol/L (3.5-5.1) Chloride Level 98 mmol/L (98-107) Carbon Dioxide Level 30 mmol/L (21-32) Anion Gap 8 (6-14) Blood Urea Nitrogen 38 mg/dL (7-20) Creatinine 5.1 mg/dL (0.6-1.0) Estimated GFR (Cockcroft-Gault) 10.2 Glucose Level 140 mg/dL (70-99) Calcium Level 8.4 mg/dL (8.5-10.1) Phosphorus Level 4.1 mg/dL (2.6-4.7) Albumin 2.6 g/dL (3.4-5.0) Medications Current Medications Fentanyl Citrate (Fentanyl 2ml Vial) 50 mcg 1X ONCE IVP Last administered on 07/05/20at 13:26; Start 07/05/20 at 13:15; Stop 07/05/20 at 13:16; Status DC Calcium Gluconate (Calcium Gluconate) 1,000 mg 1X ONCE IVP Last administered on 07/05/20at 15:26; Start 07/05/20 at 15:00; Stop 07/05/20 at 15:01; Status DC Sodium Bicarbonate (Sodium Bicarb Adult 8.4% Syr) 50 meq 1X ONCE IV Last administered on 07/05/20at 15:23; Start 07/05/20 at 15:00; Stop 07/05/20 at 15:01; Status DC Dextrose (Dextrose 50%-Water Syringe) 25 gm 1X ONCE IV Last administered on 07/05/20at 15:29; Start 07/05/20 at 15:00; Stop 07/05/20 at 15:01; Status DC Insulin Human Regular (HumuLIN R VIAL) 10 unit 1X ONCE IV Last administered on 07/05/20at 15:31; Start 07/05/20 at 15:00; Stop 07/05/20 at 15:01; Status DC Albuterol Sulfate (Ventolin Neb Soln) 10 mg 1X ONCE CONT NEB Last administered on 07/05/20at 16:05; Start 07/05/20 at 15:00; Stop 07/05/20 at 15:01; Status DC Fentanyl Citrate (Fentanyl 2ml Vial) 50 mcg 1X ONCE IVP Last administered on 07/05/20at 15:22; Start 07/05/20 at 15:30; Stop 07/05/20 at 15:31; Status DC Ondansetron HCl (Zofran) 4 mg PRN Q4HRS PRN IV NAUSEA/VOMITING; Start 07/05/20 at 15:15 Zolpidem Tartrate (Ambien) 5 mg PRN QHS PRN PO INSOMNIA Last administered on 07/06/20at 23:42; Start 07/05/20 at 15:15 Acetaminophen (Tylenol) 650 mg PRN Q4HRS PRN PO TEMP OVER 100.4F OR MILD PAIN; Start 07/05/20 at 15:15 Docusate Sodium (Colace) 100 mg PRN BID PRN PO HARD STOOLS; Start 07/05/20 at 15:15 Albuterol Sulfate (Ventolin Neb Soln) 2.5 mg PRN Q4HRS PRN NEB SHORTNESS OF BREATH; Start 07/05/20 at 15:15; Stop 07/05/20 at 15:21; Status DC Guaifenesin (Robitussin) 200 mg PRN Q4HRS PRN PO COUGH; Start 07/05/20 at 15:15 Lorazepam (Ativan) 0.5 mg PRN Q4HRS PRN PO ANXIETY / AGITATION Last administered on 07/08/20at 19:25; Start 07/05/20 at 15:15 Lorazepam (Ativan Inj) 2 mg PRN Q4HRS PRN IV ANXIETY / AGITATION Last administered on 07/07/20at 04:32; Start 07/05/20 at 15:15 Acetaminophen (Tylenol) 500 mg PRN Q6HRS PRN PO pain or fever; Start 07/05/20 at 15:15; Stop 07/05/20 at 15:20; Status DC Albuterol Sulfate (Ventolin Neb Soln) 2.5 mg PRN Q2HRS PRN NEB SOB / WHILE AWAKE; Start 07/05/20 at 15:15 Ferrous Sulfate (Feosol) 325 mg BIDWMEALS PO Last administered on 07/08/20at 17:10; Start 07/05/20 at 17:00 Acetaminophen/ Hydrocodone Bitart (Lortab 5/325) 1 tab PRN Q6HRS PRN PO MODERATE - SEVERE PAIN Last administered on 07/09/20at 08:04; Start 07/05/20 at 15:15 Pantoprazole Sodium (Protonix) 40 mg DAILYAC PO Last administered on 07/08/20at 07:30; Start 07/06/20 at 07:30 Vancomycin HCl (Vancomycin Oral Solution) 125 mg [id number] PO Last administered on 07/08/20at 22:06; Start 07/05/20 at 17:00 Carvedilol (Coreg) 25 mg BIDWMEALS PO Last administered on 07/08/20at 17:10; Start 07/05/20 at 17:00 Folic Acid (Folic Acid) 1 mg DAILY PO Last administered on 07/08/20at 08:22; Start 07/06/20 at 09:00 Sodium Chloride 1,000 ml @ 1,000 mls/hr Q1H PRN IV hypotension; Start 07/05/20 at 16:30; Stop 07/05/20 at 22:29; Status DC Albumin Human 200 ml @ 200 mls/hr 1X PRN PRN IV Hypotension; Start 07/05/20 at 16:30; Stop 07/05/20 at 22:29; Status DC Sodium Chloride 1,000 ml @ 400 mls/hr Q2H30M PRN IV PATENCY; Start 07/05/20 at 16:30; Stop 07/06/20 at 04:29; Status DC Info (PHARMACY MONITORING -- do not chart) 1 each PRN DAILY PRN MC SEE COMMENTS; Start 07/05/20 at 16:30; Status Cancel Pharmacy Consult (C.diff Med Screen By Rx) 1 each 1X ONCE MC ; Start 07/05/20 at 22:30; Stop 07/05/20 at 22:31; Status Cancel Lactobacillus Rhamnosus (Culturelle) 1 cap BID PO Last administered on 07/08/20at 22:06; Start 07/06/20 at 10:00 Darbepoetin Bolivar (ARANESP for DIALYSIS PTS) 60 mcg We SQ Last administered on 07/06/20at 23:42; Start 07/06/20 at 21:00 Sodium Chloride 1,000 ml @ 1,000 mls/hr Q1H PRN IV hypotension; Start 07/07/20 at 13:45; Stop 07/07/20 at 19:44; Status DC Albumin Human 200 ml @ 200 mls/hr 1X PRN PRN IV Hypotension; Start 07/07/20 at 13:45; Stop 07/07/20 at 19:44; Status DC Sodium Chloride 1,000 ml @ 400 mls/hr Q2H30M PRN IV PATENCY; Start 07/07/20 at 07:30; Stop 07/07/20 at 19:29; Status DC Info (PHARMACY MONITORING -- do not chart) 1 each PRN DAILY PRN MC SEE COMMENTS; Start 07/07/20 at 13:45; Status UNV Info (PHARMACY MONITORING -- do not chart) 1 each PRN DAILY PRN MC SEE COMMENTS; Start 07/07/20 at 13:45 Lidocaine (Lidoderm) 1 patch DAILY TD Last administered on 07/08/20at 11:58; Start 07/08/20 at 11:00 Miscellaneous (Lidoderm Patch Removal) 1 ea QHS MC Last administered on 07/08/20at 21:00; Start 07/08/20 at 21:00 Methylprednisolone Acetate (DEPO-Medrol 40MG VIAL) 40 mg 1X ONCE INJ ; Start 07/08/20 at 14:00; Stop 07/08/20 at 14:01; Status DC Bupivacaine HCl (Sensorcaine-Mpf 0.25%) 10 ml 1X ONCE INJ ; Start 07/08/20 at 14:00; Stop 07/08/20 at 14:01; Status DC Diclofenac Sodium (Voltaren) 1 leoinla BID TP Last administered on 07/08/20at 22:07; Start 07/08/20 at 21:00 Sodium Chloride 1,000 ml @ 1,000 mls/hr Q1H PRN IV hypotension; Start 07/09/20 at 07:30; Stop 07/09/20 at 13:29 Albumin Human 200 ml @ 200 mls/hr 1X PRN PRN IV Hypotension Last administered on 07/09/20at 09:33; Start 07/09/20 at 07:30; Stop 07/09/20 at 13:29 Sodium Chloride 1,000 ml @ 400 mls/hr Q2H30M PRN IV PATENCY; Start 07/09/20 at 07:30; Stop 07/09/20 at 19:29 Info (PHARMACY MONITORING -- do not chart) 1 each PRN DAILY PRN MC SEE COMMENTS; Start 07/09/20 at 07:30 Info (PHARMACY MONITORING -- do not chart) 1 each PRN DAILY PRN MC SEE COMMENTS; Start 07/09/20 at 07:30; Status UNV Active Scripts Active [place] 5-325 Tablet (Acetaminophen/Hydrocodone Bitart) 1 Each Tablet 1 Tab PO PRN Q6HRS PRN 6 Days Feosol (Ferrous Sulfate) 325 Mg Tablet 325 Mg PO BIDWMEALS 60 Days Proair Hfa (Albuterol Sulfate) 8.5 Gm Hfa.aer.ad 2.5 Mg NEB PRN Q2HRS PRN 30 Days Pantoprazole Sodium (Pantoprazole Sodium) 40 Mg Tablet.dr 40 Mg PO DAILYAC 30 Days Reported Carvedilol 25 Mg Tablet 25 Mg PO BIDWMEALS Folic Acid 0.4 Mg Tablet 0.4 Mg PO DAILY Acetaminophen 500 Mg Tablet 1 Tab PO PRN Q6HRS PRN 15 Days Vitals/I & O Vital Sign - Last 24 Hours 07/08/20 07/08/20 07/08/20 07/08/20 11:15 15:00 17:00 17:10 Temp 97.7 97.8 97.7 97.8 Pulse 74 72 72 72 Resp 18 16 B/P (MAP) 111/48 (69) 116/54 (74) 116/54 116/54 Pulse Ox 92 95 O2 Delivery Room Air Room Air 07/08/20 07/08/20 07/08/20 07/08/20 17:13 19:00 20:00 23:00 Temp 98.4 98.4 98.4 98.4 Pulse 76 78 Resp 20 18 18 B/P (MAP) 126/57 (80) 124/44 (70) Pulse Ox 94 98 96 O2 Delivery Room Air Room Air Room Air Room Air 07/09/20 07/09/20 07/09/20 07/09/20 01:51 02:51 03:00 07:00 Temp 98.1 98.1 Pulse 71 Resp 20 16 18 B/P (MAP) 127/56 (79) Pulse Ox 96 95 95 100 O2 Delivery Room Air Room Air Room Air 07/09/20 07/09/20 08:04 08:15 Temp 98.0 98.0 Pulse 67 Resp 18 B/P (MAP) 125/62 (83) O2 Delivery Room Air Room Air Intake and Output 07/08/20 07/08/20 07/09/20 15:00 23:00 07:00 Intake Total 100 ml 120 ml Balance 100 ml 120 ml Justifications for Admission Other Justification SUSY ESTRELLA MD Jul 09, 2020 10:30
[2020-07-09] MEDS ORDERED: HYDROcodone/APAP 5/325MG 1 TAB TABLET PO ONE (12:00)
[2020-07-09] MEDS: LIDOCAINE (700MG/PATCH) PATCH. TD SCH ×2 (12:10→18:22)
--- NOTE | 2020-07-09 13:03 | DISCH ---
DISCHARGE INSTRUCTIONS Condition on Discharge Condition on Discharge: Guarded Activity After Discharge Activity Instructions for Disc: Activity as tolerated Lifting Instructions after Dis: No heavy lifting Exercise Instruction after Dis: Progress as tolerated Driving Instructions after Dis: Other, see below Weight Bearing Status after Di: Other, see below Diet after Discharge Diet after Discharge: Cardiac Diet Texture: Regular Liquid Texture: Thin Liquid Swallowing Supervision: None needed Wound Incision Care Wound/Incision Care: No wound care needed Checks after Discharge Checks after discharge: Check blood press - daily, Check your Temp as needed, Weigh Yourself Daily DC Comment: CBC and BMP after discharge within [address] after DC Call your doctor for: If your condition worsens Follow-Up Follow up with: PCP in 1 week Follow Up With: Gastroenterology and Nephrology Treatment/Equipment after DC Adaptive Equipment Issued: GILA Canada MD Jul 09, 2020 13:03
[2020-07-09] MEDS: LACTOBACILLUS RHAMNOSUS GG 1 CAPSULE. PO SCH ×2 (13:08→19:44)
[2020-07-09] MEDS: FOLIC ACID 1 MG TABLET. PO SCH (13:08)
[2020-07-09] MEDS: PANTOPRAZOLE 40 MG TABLET.DR. PO SCH (13:09)
[2020-07-09] MEDS: FERROUS SULFATE 325 MG TABLET. PO SCH ×2 (13:09→17:24)
[2020-07-09] MEDS: CARVEDILOL 12.5 MG TABLET. PO SCH ×2 (13:09→17:24)
[2020-07-09] MEDS: LORazepam 0.5 MG TABLET PO PRN ×2 (13:09→19:44)
[2020-07-09] MEDS: DICLOFENAC SODIUM 1% TOPICAL GEL 100GM TUBE. TP SCH ×2 (13:10→21:13)
[2020-07-09] MEDS: HYDROcodone/APAP 10/325 1 TAB TABLET PO PRN ×2 (14:54→21:14)
[2020-07-09 15:00] VITALS: BP 130/49
--- NOTE | 2020-07-09 15:03 | RAD ---
EXAM: Lumbar spine, 5 views. HISTORY: Pain. COMPARISON: None. FINDINGS: 5 views of the lumbar spine are obtained. There is no significant listhesis. The vertebral bodies are normal in height. There is multilevel endplate remodeling. There is vacuum phenomenon within the disc spaces at L3-L4 and L4-L5. There is facet arthropathy predominantly at the lumbosacral junction. There are cholecystectomy clips. There are embolization coils overlying the abdomen to the left of midline. There are vascular calcifications. There are calcified granulomas and pelvic phleboliths. IMPRESSION: 1. Multilevel degenerative change involving the lumbar spine, described above. 2. No acute osseous finding. Electronically signed by: Renetta Hardin MD (07/09/2020 3:00 PM) [id number]
[2020-07-09 19:00] VITALS: BP 115/44
[2020-07-09] MEDS ORDERED: PATCH REMOVAL. MC SCH (21:00)
[2020-07-09] MEDS: PATCH REMOVAL. MC SCH (21:00)
[2020-07-09 23:00] VITALS: BP 109/37
[2020-07-10 03:00] VITALS: BP 130/64
[2020-07-10 07:00] VITALS: BP 115/55
[2020-07-10] MEDS: PANTOPRAZOLE 40 MG TABLET.DR. PO SCH (07:07)
[2020-07-10] MEDS: HYDROcodone/APAP 10/325 1 TAB TABLET PO PRN (07:10)
[2020-07-10] MEDS: FERROUS SULFATE 325 MG TABLET. PO SCH (08:12)
[2020-07-10] MEDS: LACTOBACILLUS RHAMNOSUS GG 1 CAPSULE. PO SCH (08:12)
[2020-07-10] MEDS: VANCOMYCIN 125 MG/2.5 ML ORAL SOLUTION. PO SCH (08:12)
[2020-07-10] MEDS: FOLIC ACID 1 MG TABLET. PO SCH (08:12)
[2020-07-10] MEDS: CARVEDILOL 12.5 MG TABLET. PO SCH (08:12)
[2020-07-10] MEDS: DICLOFENAC SODIUM 1% TOPICAL GEL 100GM TUBE. TP SCH (08:12)
[2020-07-10] MEDS: LIDOCAINE (700MG/PATCH) PATCH. TD SCH ×2 (08:13)
--- NOTE | 2020-07-10 10:21 | RAD ---
Study: CR KNEE STANDING BILAT AP Indication: Knee pain. Comparison: 06/01/2019 Findings: Right knee: Redemonstrated femur and proximal tibia ORIF in the setting of chronic fracture deformities. Chronic fracture deformity of the proximal fibula as well. What is seen of the femoral hardware is intact and without loosening. The partially assessed tibia plate and screw construct is intact and without loosening. There is relative osteopenia of the lateral tibial plateau but a similar finding was present in 2019 and favored due to stress shielding. No apparent change in alignment at the knee nor extent of posttraumatic arthrosis. Basilar calcifications. The soft tissues appear edematous lateral to the knee joint but this is nonspecific. Left knee: Mild/moderate medial and lateral femorotibial compartment joint space narrowing has not significant changed. Lateral joint line osteophytes. No acute fracture on the single submitted view. Osteopenia. Impression: Right knee: 1. No complication seen to involve the visualized femoral hardware or the proximal tibia plate and screw ORIF construct. 2. Chronic fracture deformities. No newly seen fracture or significant progression of posttraumatic arthrosis. 3. Nonspecific edematous appearance of the lateral soft tissues adjacent to the knee joint. Left knee: 1. No acute fracture. Similar degree of medial and lateral femorotibial compartment joint space narrowing. Electronically signed by: KEHINDE STEWART MD (07/10/2020 10:19 AM) [id number]
[2020-07-10 11:00] VITALS: BP 135/52
--- NOTE | 2020-07-10 12:57 | NUR ---
Discharge Note: CES[employer] [facility]LL[facility] PATENT Discharge instructions and discharge home medications reviewed with Patient and a copy given. All questions have been answered and understanding verbalized. The following instructions and handouts were given: Patient given education regarding new medications. Discontinued lines and drains: IV removed per protocol. Patient discharged home, picked up by daughter.
--- NOTE | 2020-07-12 08:56 | PDOC3 ---
[facility]-Discharge Summary Date of Admission: Date of Admission: Jul 05, 2020 Date of Discharge: Date of Discharge: Jul 10, 2020 Admission Diagnosis: Admitting Diagnosis: Anemia macrocytic etiology undetermined at the present time Hyperkalemia Hyponatremia Diabetes-Type II, GERD, History of GI Bleed, Essential Hypertension, History of Kidney Stone, History of Pancreatitis ESRD on HD, History of CIRRHOSIS Discharge Diagnosis: Discharge Diagnosis: Anemia macrocytic etiology undetermined at the present time Hyperkalemia Hyponatremia Diabetes-Type II, GERD, History of GI Bleed, recurrent Essential Hypertension, History of Kidney Stone, History of Pancreatitis ESRD on HD, History of CIRRHOSIS COVID 19 - 05/27/2020 positive testing, again on 06/14/2020 positive Acute anemia - Hb 7.6 Pancytopenia - possibly leukopenic from COVID 19, thrombocytopenic possibly from same vs ETOH use End-stage renal disease on dialysis - Nephrology consulted H/o pancreatitis, alcoholic - wine drinker. Counseled on cessation given her dialysis status and comorbidities Mild bilateral knee osteoarthritis with suspected trace right knee effusion. Chronic back pain Previous gastrointestinal bleed HX Clostridium difficile Cholelithiasis Obesity Trace tricuspid regurgitation with an estimated PAP of 52 mmHg. Arteriovenous shunt Moderate protein calorie malnutrition - Albumin 2.8 Back and shoulder pain s/p fall - PT evaluation +Hemoccult H/o recurrent UGI bleeding, refractory ulcer - H. pylori negative x 2, last endo therapy 01/12/20 (has had 7 EGDs since 2016), past GDA embolization (poor surgical candidate) GERD cirrhosis Hep C low back pain, not well controlled 07/08 Consults: Consults: PMR GI Nephrology Procedures: Procedures: Steroid injection for knee pain Hospital Course: Hospital Course: 65 year old female with past medical history of ESRD on HD who was in her usual state of health until of last week when she started experiencing "aching all over". she had a doppler of her legs ordered by her section housekeeper. She is at the time of my evaluation in tears due to the discomfort, she cannot give a very good history due to her distress. She was evaluated in the ED and found to have anemia. Patient complained of lower back pain as well but no alarming signs were reported like saddle anesthesia, incontinence, weight loss or any other concerning symptoms. We have been asked to admit for dialysis and blood transfusion given anemia found on work up. Patient denies active bleeding. Plan of care discussed in detail. All concerns addressed to the best of my abilities She denies chest pain, no palpitations no shortness of breath, no angina type of symptoms. No hematemesis nor hematochezia reported. Patient was admitted for HD and seen by nephrology and also seen by our pain/director rehabilitation program Dr Spencer. She did receive steroid injections for her knee. During her hospital course her pain was improved after HD and management of her pain. GI evaluated and she did not have any more hematemesis episodes. The rest of her hospital course was uneventful Disposition: Disposition/Orders: D/C to Home Activity: Activity: Resume previous activity Diet: Diet: Renal Medications: Home Meds Active Scripts Ferrous Sulfate (FEOSOL) 325 Mg Tablet, 325 MG PO BIDWMEALS for anemia for 60 Days, #120 TAB Prov:BERNARDO NG MD 03/08/20 Albuterol Sulfate (Proair Hfa) 8.5 Gm Hfa.aer.ad, 2.5 MG NEB PRN Q2HRS PRN for SOB / WHILE AWAKE for 30 Days, #30 INHALER Prov:ASHIA MOSS MD 09/27/19 Pantoprazole Sodium (PANTOPRAZOLE SODIUM ) 40 Mg Tablet.dr, 40 MG PO DAILYAC for Bleeding ulcer for 30 Days, #30 TAB.SR 5 Refills Prov:MELY OLVERA MD 07/04/19 Reported Medications Carvedilol (CARVEDILOL) 25 Mg Tablet, 25 MG PO BIDWMEALS for CARDIAC, TAB 03/05/20 Folic Acid (FOLIC ACID) 0.4 Mg Tablet, 0.4 MG PO DAILY for supplement, TAB 03/05/20 Acetaminophen (ACETAMINOPHEN) 500 Mg Tablet, 1 TAB PO PRN Q6HRS PRN for pain or fever for 15 Days, #60 TAB 0 Refills 12/30/19 Discontinued Scripts Hydrocodone/Apap 5-325 (NORCO 5-325 TABLET) 1 Each Tablet, 1 TAB PO PRN Q6HRS PRN for PAIN for 6 Days, #20 TAB 0 Refills Prov:MELY OLVERA MD 06/15/20 Scheduled Carvedilol (Carvedilol), 25 MG PO BIDWMEALS, (Reported) Ferrous Sulfate (Feosol), 325 MG PO BIDWMEALS Folic Acid (Folic Acid), 0.4 MG PO DAILY, (Reported) Pantoprazole Sodium (Pantoprazole Sodium ), 40 MG PO DAILYAC Scheduled PRN Acetaminophen (Acetaminophen), 1 TAB PO PRN Q6HRS PRN for pain or fever, (Reported) Albuterol Sulfate (Proair Hfa), 2.5 MG NEB PRN Q2HRS PRN for SOB / WHILE AWAKE Discontinued Medications Hydrocodone/Apap 5-325 ([place] 5-325 Tablet), 1 TAB PO PRN Q6HRS PRN for PAIN Total Time: Total Time: Total time spent was 35 minutes in preparing scripts, discharge planning with SW and RN, and preparing this discharge summary. Justicifation of Admission Dx: Justifications for Admission: Justification of Admission Dx: Yes Acute Renal Failure: Serum Cr > 4mg/dL Chronic Renal Failure: Hemodynamic Instability Sepsis: Infection GILA MURCIA MD Jul 12, 2020 08:56
--- NOTE | 2020-07-12 08:58 | PDOC ---
[facility] PROGRESS NOTE Date of Service DOS: DATE: 07/09/20 TIME: 08:56 Chief Complaint Chief Complaint Assessment/Plan Anemia macrocytic etiology undetermined at the present time Hyperkalemia Hyponatremia Diabetes-Type II, GERD, History of GI Bleed, recurrent Essential Hypertension, History of Kidney Stone, History of Pancreatitis ESRD on HD, History of CIRRHOSIS COVID 19 - 05/27/2020 positive testing, again on 06/14/2020 positive Acute anemia - Hb 7.6 Pancytopenia - possibly leukopenic from COVID 19, thrombocytopenic possibly from same vs ETOH use End-stage renal disease on dialysis - Nephrology consulted H/o pancreatitis, alcoholic - wine drinker. Counseled on cessation given her dialysis status and comorbidities Mild bilateral knee osteoarthritis with suspected trace right knee effusion. Chronic back pain Previous gastrointestinal bleed HX Clostridium difficile Cholelithiasis Obesity Trace tricuspid regurgitation with an estimated PAP of 52 mmHg. Arteriovenous shunt Moderate protein calorie malnutrition - Albumin 2.8 Back and shoulder pain s/p fall - PT evaluation +Hemoccult H/o recurrent UGI bleeding, refractory ulcer - H. pylori negative x 2, last endotherapy 01/12/20 (has had 7 EGDs since 2016), past GDA embolization (poor surgical candidate) GERD cirrhosis Hep C low back pain, not well controlled 07/08 Plan: gi consult nephrology consult transfuse prn will admit for dialysis and correnction of electrolyte imbalance transfuse 1 unit of PRBCs resume home meds once available pain management with Fentanyl DVT prophylaxis: SCD lidoderm patch, pt/ot consult DR SPENCER needs DPOA D/W RN LEG PAIN SLOW TO RESOLVE 07/08 29 min pt exam, chart review, > 50% of time spent with exam, chart review, pt care coordination Justifications for Admission Justifications for Admission Other Justification History of Present Illness History of Present Illness Source Source: Chart review, Patient History of Present Illness History of Present Illness Mrs Fernandez is a 65 year old female with past medical history of ESRD on HD who was in her usual state of health until of last week when she started experiencing "aching all over". she had a doppler of her legs ordered by her inpatient services rn. She is at the time of my evaluation in tears due to the discomfort, she cannot give a very good history due to her distress. She was evaluated in the ED and found to have anemia. Patient complained of lower back pain as well but no alarming signs were reported like saddle anesthesia, incontinence, weight loss or any other concerning symptoms. We have been asked to admit for dialysis and blood transfusion given anemia found on work up. Patient denies active bleeding. Plan of care discussed in detail. All concerns addressed to the best of my abilities 07/09/20 Pain is improved. Received Right knee injection with Dr Spencer. Patient's chart, labs, and images reviewed and discussed with RN. Physical Exam Physical Exam: Physical Exam Physical Exam GEN.: No apparent distress. Alert and oriented. HEENT: Head is normocephalic, atraumatic NECK: Supple. LUNGS: Clear to auscultation. HEART: RRR, S1, S2 present. Peripheral pulses intact ABDOMEN: Soft, nontender. Positive bowel sounds. EXTREMITIES: Without any cyanosis. NEUROLOGIC: Normal speech, normal tone PSYCHIATRIC: Normal affect, normal mood. SKIN: No ulcerations General: Alert, Oriented X3, Cooperative, No acute distress Heart: Regular rate, Normal S1 Lungs: Clear Abdomen: Normal bowel sounds, Soft, No tenderness Extremities: No cyanosis Skin: No significant lesion Assessment and Plan Assessmemt and Plan Problems Medical Problems: (1) Hemoglobin low Status: Acute (2) Intractable pain Status: Acute Comment Review of Relevant I have reviewed the following items tamika (where applicable) has been applied. Justifications for Admission Other Justification GILA MURCIA MD Jul 12, 2020 08:58
[2020-07-14] MEDS ORDERED: HYDR-2769 PO (02:45)
== END 2020-07-10 12:50 | disposition home or self-care (01) | DRG 640 ==
LOC: ER 12:47 → 5 NORTH 15:17
PROVIDERS: ADMIT Internal Medicine; ATTEND Internal Medicine
PROC: 30233N1 Transfusion of Nonautologous Red Blood Cells into Peripheral Vein, Percutaneous Approach (ICD-10-PCS; principal; 2020-07-05)
PROC: 3E0U33Z Introduction of Anti-inflammatory into Joints, Percutaneous Approach (ICD-10-PCS; 2020-07-05)
PROC: 3E0U3BZ Introduction of Anesthetic Agent into Joints, Percutaneous Approach (ICD-10-PCS; 2020-07-05)
PROC: 5A1D70Z Performance of Urinary Filtration, Intermittent, Less than 6 Hours Per Day (ICD-10-PCS; 2020-07-05)
PROC: 5A1D70Z Performance of Urinary Filtration, Intermittent, Less than 6 Hours Per Day (ICD-10-PCS; 2020-07-07)
PROC: 5A1D70Z Performance of Urinary Filtration, Intermittent, Less than 6 Hours Per Day (ICD-10-PCS; 2020-07-09)
DX: E87.5 Hyperkalemia (principal); N18.6 End stage renal disease; D61.818 Other pancytopenia; E44.0 Moderate protein-calorie malnutrition; I13.2 Hypertensive heart and chronic kidney disease with heart failure and with stage 5 chronic kidney disease, or end stage renal disease; B19.20 Unspecified viral hepatitis C without hepatic coma; D53.9 Nutritional anemia, unspecified; E11.22 Type 2 diabetes mellitus with diabetic chronic kidney disease; E11.42 Type 2 diabetes mellitus with diabetic polyneuropathy; E21.3 Hyperparathyroidism, unspecified; E66.9 Obesity, unspecified; E78.5 Hyperlipidemia, unspecified; E87.1 Hypo-osmolality and hyponatremia; G89.29 Other chronic pain; I50.9 Heart failure, unspecified; K21.9 Gastro-esophageal reflux disease without esophagitis; K74.60 Unspecified cirrhosis of liver; K80.20 Calculus of gallbladder without cholecystitis without obstruction; M06.9 Rheumatoid arthritis, unspecified; M17.0 Bilateral primary osteoarthritis of knee; Z81.1 Family history of alcohol abuse and dependence; Z82.49 Family history of ischemic heart disease and other diseases of the circulatory system; Z87.11 Personal history of peptic ulcer disease; Z87.442 Personal history of urinary calculi; Z90.711 Acquired absence of uterus with remaining cervical stump; Z99.2 Dependence on renal dialysis; Z20.828 Contact with and (suspected) exposure to other viral communicable diseases
CPT/HCPCS: 36415; 71045; 72110; 73565; 74176; 80053; 80069; 82274; 82962; 83540; 83550; 83690; 85018; 85025; 85610; 86850; 86900; 86901; 86920; 93005; 93925; 93971; 94644; 96374; 96375; 96376; 99285; J0610; J0882; J1030; J1815; J2060; J3010; J3490; P9016; P9046; 97530-GP; G0378; J7613

== ENCOUNTER 2020-10-29 07:42 | Emergency (ER) | payer OTHER, MEDICAID ==
[~2020-10-29] VITALS: Ht 157.5 cm; Wt 82.0 kg
[~2020-10-29 07:42] MED LIST changes: +AMLO-187 PO; -AMLO10TA8 PO; +HYDR-2769 PO
[2020-10-29] MEDS ORDERED: fentaNYL PF VIAL 100 MCG/2 ML VIAL IM ONE (09:15)
--- NOTE | 2020-10-29 09:20 | PHYS DOC ---
Past Medical History Past Medical History: Diabetes-Type II Additional Past Medical Histor: Ulcers,ESRD,C-DIFF,CIRRHOSIS Past Surgical History: Other Additional Past Surgical Histo: LEFT UPPER dialysis shunt Smoking Status: Never Smoker Alcohol Use: Occasionally Drug Use: None General Adult EDM: Chief Complaint: BACK PAIN OR INJURY HPI: HPI: Patient is a 65 year old female who was brought here by EMS for evaluation of lower back pain. Patient has history of chronic lower back pain. She has have lower back pain for 4 days. Patient denied any injury. She also has history of ESRD, on hemodialysis. She missed dialysis two day ago due to back pain. She is scheduled to have dialysis this morning. She called EMS to take her here for pain treatment. Patient denies any chest pain, no trouble breathing, no cough, no fever. Patient denies any bowel or bladder incontinence. Review of Systems: Review of Systems: Constitutional: Denies fever or chills. [] Eyes: Denies change in visual acuity. [] HENT: Denies nasal congestion or sore throat. [] Respiratory: Denies cough or shortness of breath. [] Cardiovascular: Denies chest pain or edema. [] GI: Denies abdominal pain, nausea, vomiting, bloody stools or diarrhea. [] : Denies dysuria. [] Musculoskeletal: Positive for low back pain. Integument: Denies rash. [] Neurologic: Denies headache, focal weakness or sensory changes. [] Endocrine: Denies polyuria or polydipsia. [] Lymphatic: Denies swollen glands. [] Psychiatric: Denies depression or anxiety. [] Heart Score: Risk Factors: Risk Factors: DM, Current or recent (<one month) smoker, HTN, HLP, family history of CAD, obesity. Risk Scores: Score 0 - 3: 2.5% MACE over next 6 weeks - Discharge Home Score 4 - 6: 20.3% MACE over next 6 weeks - Admit for Clinical Observation Score 7 - 10: 72.7% MACE over next 6 weeks - Early Invasive Strategies Current Medications: Current Medications Medications (Trade) Dose Ordered Sig/Kimberly Start Time Stop Time Status Last Admin Dose Admin Fentanyl Citrate (Fentanyl 2ml Vial) 100 mcg 1X ONCE 10/29/20 09:15 10/29/20 09:16 DC Allergies: Allergies: Allergies Coded Allergies Type Severity Reaction Last Updated Verified No Known Drug Allergies 10/11/20 No Physical Exam: PE: Constitutional: Well developed, well nourished, no acute distress, non-toxic appearance. [] HENT: Normocephalic, atraumatic, bilateral external ears normal, oropharynx moist, no oral exudates, nose normal. [] Eyes: PERRLA, EOMI, conjunctiva normal, no discharge. [] Neck: Normal range of motion, no tenderness, supple, no stridor. [] Cardiovascular:Heart rate regular rhythm, no murmur [] Lungs & Thorax: Bilateral breath sounds clear to auscultation [] Abdomen: Bowel sounds normal, soft, no tenderness, no masses, no pulsatile masses. [] Skin: Warm, dry, no erythema, no rash. [] Back: No tenderness, no CVA tenderness. [] Extremities: No tenderness, no cyanosis, no clubbing, ROM intact, no edema. [] Neurologic: Alert and oriented X 3, normal motor function, normal sensory function, no focal deficits noted. [] Psychologic: Affect normal, judgement normal, mood normal. [] EKG: EKG: [] Radiology/Procedures: Radiology/Procedures: [] Course & Med Decision Making: Course & Med Decision Making Pertinent Labs and Imaging studies reviewed. (See chart for details) Patient is a 65-year-old female with chronic low back pain, she is out of her pain medication. Patient wanted to be treated for back pain. Patient was given a shot of fentanyl injection in ER, patient was given a cab pass so she can go to her dialysis today. Rishi Disclaimer: Rishi Disclaimer: This electronic medical record was generated, in whole or in part, using a voice recognition dictation system. Departure Departure Impression: Primary Impression: Chronic back pain Disposition: 01 DC HOME SELF CARE/HOMELESS Condition: STABLE Referrals: NO PCP (PCP) Patient Instructions: Back Pain, Adult Additional Instructions: Thank you for visiting our Emergency Department. We appreciate you trusting us with your care. If any additional problems come up don't hesitate to return to visit us. Please follow up with your primary care provider so they can plan additional care if needed and know about the problem that you had. If symptoms worsen come back to the Emergency Department. Any concerning symptoms that start such as chest pain, shortness of air, weakness or numbness on one side of the body, running high fevers or any other concerning symptoms return to the ER. Scripts Oxycodone/Apap 5-325 (PERCOCET 5-325 MG TABLET ) 1 Each Tablet 1 TAB PO QIDPRN PRN for PAIN MDD 4 Tablet(s) for 2 Days, #6 TAB 0 Refills Prov: CORY HARPER DO 10/29/20 CORY HARPER DO Oct 29, 2020 09:20
[2020-10-29 10:00] VITALS: BP 131/63
[2020-10-29] MEDS ORDERED: OXYC1TAB15 PO (10:33)
== END 2020-10-29 10:15 | disposition home or self-care (01) ==
LOC: ER 07:42
DX: G89.29 Other chronic pain (principal); M54.5 Low back pain; E11.22 Type 2 diabetes mellitus with diabetic chronic kidney disease; I12.0 Hypertensive chronic kidney disease with stage 5 chronic kidney disease or end stage renal disease; N18.6 End stage renal disease; Z99.2 Dependence on renal dialysis
CPT/HCPCS: 96372; 99283; J3010

== ENCOUNTER 2020-11-18 09:08 | Inpatient (IN) | payer OTHER, MEDICAID ==
[~2020-11-18] VITALS: Ht 158.8 cm; Wt 95.8 kg
[~2020-11-18 09:08] MED LIST changes: -FOLI0.4T2 PO; +FOLI0.4T5 PO; -OMEP40CA45; +OMEP40CA7; +OXYC1TAB15 PO
--- NOTE | 2020-11-18 09:57 | PHYS DOC ---
Past Medical History Past Medical History: Diabetes-Type II, GERD, GI Bleed, Hypertension, Kidney Stone, Pancreatitis, Pneumonia, P.U.D., Renal Failure, Other Additional Past Medical Histor: Ulcers,ESRD,C-DIFF,CIRRHOSIS,CHRONIC PAIN Past Surgical History: Other Additional Past Surgical Histo: LEFT UPPER dialysis shunt Smoking Status: Never Smoker Alcohol Use: Occasionally Drug Use: None General Adult EDM: Chief Complaint: MECHANICAL FALL HPI: HPI: Patient is a 65 year old female who was brought here by EMS from home due to knee pain, pelvic pain after she fell in the bathroom yesterday. Patient denies any head or neck injury. Patient says she had chronic low back pain, but the fall had caused her more pain in her low back. Patient denies any bowel or bladder incontinence. Patient had end-stage renal failure, she did not have dialysis yesterday because she was in pain and could not go. Patient said whenever she TRIED to move, she had pain in her knee and her back Review of Systems: Review of Systems: Constitutional: Denies fever or chills. [] Eyes: Denies change in visual acuity. [] HENT: Denies nasal congestion or sore throat. [] Respiratory: Denies cough or shortness of breath. [] Cardiovascular: Denies chest pain or edema. [] GI: Denies abdominal pain, nausea, vomiting, bloody stools or diarrhea. [] : Denies dysuria. [] Musculoskeletal: Positive for low back pain, joint pain Integument: Denies rash. [] Neurologic: Denies headache, focal weakness or sensory changes. [] Endocrine: Denies polyuria or polydipsia. [] Lymphatic: Denies swollen glands. [] Psychiatric: Denies depression or anxiety. [] Heart Score: Risk Factors: Risk Factors: DM, Current or recent (<one month) smoker, HTN, HLP, family history of CAD, obesity. Risk Scores: Score 0 - 3: 2.5% MACE over next 6 weeks - Discharge Home Score 4 - 6: 20.3% MACE over next 6 weeks - Admit for Clinical Observation Score 7 - 10: 72.7% MACE over next 6 weeks - Early Invasive Strategies Allergies: Allergies: Allergies Coded Allergies Type Severity Reaction Last Updated Verified No Known Drug Allergies 10/11/20 No Physical Exam: PE: Constitutional: Well developed, well nourished, no acute distress, non-toxic appearance. [] HENT: Normocephalic, atraumatic, bilateral external ears normal, oropharynx moist, no oral exudates, nose normal. [] Eyes: PERRLA, EOMI, conjunctiva normal, no discharge. [] Neck: Normal range of motion, no tenderness, supple, no stridor. [] Cardiovascular:Heart rate regular rhythm, no murmur [] Lungs & Thorax: Bilateral breath sounds clear to auscultation [] Abdomen: Bowel sounds normal, soft, no tenderness, no masses, no pulsatile masses. [] Skin: Warm, dry, no erythema, no rash. [] Back: No tenderness, no CVA tenderness. [] Extremities: Bilateral knee tender to palpation, no deformity noted. Pelvis stable, tender to palpation Neurologic: Alert and oriented X 3, normal motor function, normal sensory function, no focal deficits noted. [] Psychologic: Affect normal, judgement normal, mood normal. [] Current Patient Data: Labs: Laboratory Tests Test 11/18/20 11:52 White Blood Count 2.7 x10^3/uL Red Blood Count 2.31 x10^6/uL Hemoglobin 7.7 g/dL Hematocrit 23.9 % Mean Corpuscular Volume 104 fL Mean Corpuscular Hemoglobin 34 pg Mean Corpuscular Hemoglobin Concent 32 g/dL Red Cell Distribution Width 22.3 % Platelet Count 149 x10^3/uL Neutrophils (%) (Auto) 67 % Lymphocytes (%) (Auto) 17 % Monocytes (%) (Auto) 12 % Eosinophils (%) (Auto) 3 % Basophils (%) (Auto) 1 % Neutrophils # (Auto) 1.8 x10^3/uL Lymphocytes # (Auto) 0.5 x10^3/uL Monocytes # (Auto) 0.3 x10^3/uL Eosinophils # (Auto) 0.1 x10^3/uL Basophils # (Auto) 0.0 x10^3/uL Platelet Estimate Adequate Large Platelets Occ Anisocytosis Mod Sodium Level 130 mmol/L Potassium Level 6.2 mmol/L Chloride Level 92 mmol/L Carbon Dioxide Level 25 mmol/L Anion Gap 13 Blood Urea Nitrogen 59 mg/dL Creatinine 9.4 mg/dL Estimated GFR (Cockcroft-Gault) 5.1 BUN/Creatinine Ratio 6 Glucose Level 95 mg/dL Calcium Level 8.7 mg/dL Magnesium Level 2.2 mg/dL Total Bilirubin 0.5 mg/dL Aspartate Amino Transf (AST/SGOT) 52 U/L Alanine Aminotransferase (ALT/SGPT) 30 U/L Alkaline Phosphatase 249 U/L Creatine Kinase 114 U/L Total Protein 7.9 g/dL Albumin 3.0 g/dL Albumin/Globulin Ratio 0.6 Current Medications Medications (Trade) Dose Ordered Sig/Kimberly Route PRN Reason Start Time Stop Time Status Last Admin Dose Admin Morphine Sulfate (Morphine Sulfate) 4 mg 1X ONCE IV 11/18/20 12:00 11/18/20 12:02 DC 11/18/20 12:31 Dextrose (Dextrose 50%-Water Syringe) 25 gm 1X ONCE IV 11/18/20 13:00 11/18/20 13:01 DC 11/18/20 13:07 Insulin Human Regular (HumuLIN R VIAL) 10 unit 1X ONCE IV 11/18/20 13:00 11/18/20 13:01 DC 11/18/20 13:08 Sodium Bicarbonate (Sodium Bicarb Adult 8.4% Syr) 50 meq 1X ONCE IV 11/18/20 13:00 11/18/20 13:01 DC 11/18/20 13:07 Ondansetron HCl (Zofran) 4 mg PRN Q8HRS PRN IV NAUSEA/VOMITING 11/18/20 13:15 11/19/20 13:14 Morphine Sulfate (Morphine Sulfate) 4 mg PRN Q2HR PRN IV PAIN 11/18/20 13:15 11/19/20 13:14 Vital Signs: Vital Signs Date Time Temp Pulse Resp B/P (MAP) Pulse Ox O2 Delivery O2 Flow Rate FiO2 11/18/20 09:08 97.9 77 20 169/71 (103) 98 Room Air 97.9 EKG: EKG: [] Radiology/Procedures: Radiology/Procedures: [][facility] [address] [place] [address] IMAGING REPORT Signed PATIENT: CESAR AGEE AACCOUNT: [id number] : 1955 LOCATION: ER AGE: 65 SEX: F EXAM STATUS: REG ER ORD. PHYSICIAN: CORY HARPER DO REASON: FELL, PELVIC PAIN PROCEDURE: PELVIS Exam: L-spine 3 views INDICATION: Fell in the bathroom yesterday. Back pain. COMPARISON: Abdomen pelvis CT without IV contrast of 10/10/2020 FINDINGS: AP, lateral and coned-down lateral views of the lumbar spine show 5 lumbar type vertebral bodies in near anatomic alignment with mild grade 1 anterolisthesis of L4 on L5, similar to prior. There is no acute fracture and no aggressive appearing bony lesions shown. The facet joints show hypertrophy in the lower lumbar segments. Soft tissues show arterial calcifications, cholecystectomy clips and embolization coils in the upper mid abdomen. IMPRESSION: No acute fracture or aggressive appearing bony lesions shown by x-ray in the lumbar spine. EXAMINATION: Single view pelvis INDICATION: Pelvic pain after a fall. COMPARISON: Abdomen pelvis CT without IV contrast 10/10/2020 FINDINGS: Chronic deformity to the right superior and inferior pubic rami is present, consistent with old healed fractures. An intramedullary fermin in the right femoral shaft is again evident. No fracture or dislocation is shown. There are arterial vascular calcifications. Impression: No acute fractures of the pelvis or hips with chronic deformity to the right superior and inferior pubic rami noted. Examination: Bilateral knees 3 views each INDICATION: Knee pain after falling the bathroom. TECHNIQUE: AP oblique and lateral views of each knee were obtained FINDINGS: Right knee shows lateral plate and screw construct proximal tibial fracture fixation with evidence of healing of the proximal tibial metaphyseal fracture. There is mild deformity to the proximal fibula compatible with an old, healed fracture as well. A distal intramedullary fermin in the right femur has interlocking screws in the distal femoral fracture and reduces and fixates is shows evidence of healing. No acute right knee fracture and no dislocation is evident. There is articular surface irregularity and joint space narrowing in the lateral compartment of the right knee compatible with moderately advanced degenerative changes. Less profound joint space narrowing is present in the patellofemoral compartment. Soft tissues show arterial vascular calcifications. Left knee shows joint space narrowing in all 3 compartments but no acute fracture or aggressive appearing bony lesions. Soft tissues show arterial vascular calcifications. IMPRESSION: 1. Status post right knee surgical hardware repair with good evidence of healing of old fractures and no new fractures or dislocation. 2. Left knee shows multicompartmental degenerative changes with no acute fracture or dislocation. Electronically signed by: Edinson Astorga MD (11/18/2020 11:02 AM) [id number] DICTATED and SIGNED BY: EDINSON ASTORGA MD DATE: 11/18/20 [id number] 0 Course & Med Decision Making: Course & Med Decision Making Pertinent Labs and Imaging studies reviewed. (See chart for details) Patient is a 65-year-old female who was evaluated in ER due to general weakness, her low back pain, pelvic pain, knee pain after she fell yesterday. Patient had end-stage renal failure, she had missed her dialysis yesterday because she could not get out of bed due to the pain. Last hemodialysis was on Saturday. Patient will need to be admitted to hospital, will consult nephrology for hemodialysis. Rishi Disclaimer: Rishi Disclaimer: This electronic medical record was generated, in whole or in part, using a voice recognition dictation system. Departure Departure Impression: Primary Impression: Hyperkalemia Additional Impressions: ESRD (end stage renal disease) on dialysis Weakness Pelvic pain Back pain Knee pain, bilateral Disposition: 09 ADMITTED INPT THIS HOSP Admitting Physician: BRYANT SOLOMON) Condition: STABLE Referrals: NO PCP (PCP) CORY HARPER DO Nov 18, 2020 09:57
--- NOTE | 2020-11-18 11:05 | RAD ---
Exam: L-spine 3 views INDICATION: Fell in the bathroom yesterday. Back pain. COMPARISON: Abdomen pelvis CT without IV contrast of 10/10/2020 FINDINGS: AP, lateral and coned-down lateral views of the lumbar spine show 5 lumbar type vertebral bodies in n ear anatomic alignment with mild grade 1 anterolisthesis of L4 on L5, similar to prior. There is no acute fracture and no aggressive appearing bony lesions shown. The facet joints show hype rtrophy in the lower lumbar segments. Soft tissues show arterial calcifications, cholecystectomy clip s and embolization coils in the upper mid abdomen. IMPRESSION: No acute fracture or aggressive appearing bony lesions shown by x-ray in the lumbar spine. EXAMINATION: Single view pelvis INDICATION: Pelvic pain after a fall. COMPARISON: Abdomen pelvis CT without IV contrast 10/10/2020 FINDINGS: Chronic deformity to the right superior and inferior pubic rami is present, consistent with old heale d fractures. An intramedullary fermin in the right femoral shaft is again evident. No fracture or dislocation is show n. There are arterial vascular calcifications. Impression: No acute fractures of the pelvis or hips with chronic deformity to the right superior and inferior pu bic rami noted. Examination: Bilateral knees 3 views each INDICATION: Knee pain after falling the bathroom. TECHNIQUE: AP oblique and lateral views of each knee were obtained FINDINGS: Right knee shows lateral plate and screw construct proximal tibial fracture fixation with evidence of healing of the proximal tibial metaphyseal fracture. There is mild deformity to the proximal fibula compatible with an old, healed fracture as well. A distal intramedullary fermin in the right femur has i nterlocking screws in the distal femoral fracture and reduces and fixates is shows evidence of healin g. No acute right knee fracture and no dislocation is evident. There is articular surface irregularit y and joint space narrowing in the lateral compartment of the right knee compatible with moderately a dvanced degenerative changes. Less profound joint space narrowing is present in the patellofemoral co mpartment. Soft tissues show arterial vascular calcifications. Left knee shows joint space narrowing in all 3 compartments but no acute fracture or aggressive appea ring bony lesions. Soft tissues show arterial vascular calcifications. IMPRESSION: 1. Status post right knee surgical hardware repair with good evidence of healing of old fractures and no new fractures or dislocation. 2. Left knee shows multicompartmental degenerative changes with no acute fracture or dislocation. Electronically signed by: Wilfrido Astorga MD (11/18/2020 11:02 AM) [id number]
[2020-11-18 11:58] LABS: BASO % 1 % (0-3); EOS # 0.1 x10^3/uL (0.0-0.7); EOS % 3 % (0-3); HEMATOCRIT 23.9 % (36.0-47.0); HEMOGLOBIN 7.7 g/dL (12.0-15.5); LYMPH # 0.5 x10^3/uL (1.0-4.8); LYMPH % 17 % (24-48); MEAN CORPUSCULAR HEMOGLOBIN 34 pg (25-35); MEAN CORPUSCULAR HGB CONC 32 g/dL (31-37); MEAN CORPUSCULAR VOLUME 104 fL (79-100); MONO # 0.3 x10^3/uL (0.0-1.1); MONO % 12 % (0-9); NEUT # 1.8 x10^3/uL (1.8-7.7); NEUT % 67 % (31-73); PLATELET COUNT 149 x10^3/uL (140-400); RED BLOOD COUNT 2.31 x10^6/uL (3.50-5.40); RED CELL DISTRIBUTION WIDTH 22.3 % (11.5-14.5); WHITE BLOOD COUNT 2.7 x10^3/uL (4.0-11.0)
[2020-11-18] MEDS ORDERED: MORPHINE SULFATE 4 MG/ML VIAL. IV ONE (12:00)
[2020-11-18 12:20] LABS: ALBUMIN/GLOBULIN RATIO 0.6 (1.0-1.7); CALCIUM 8.7 mg/dL (8.5-10.1); CREATININE 9.4 mg/dL (0.6-1.0); GFR 5.1; MAGNESIUM 2.2 mg/dL (1.8-2.4); TOTAL BILIRUBIN 0.5 mg/dL (0.2-1.0); TOTAL PROTEIN 7.9 g/dL (6.4-8.2)
[2020-11-18 12:28] LABS: POTASSIUM 6.2 mmol/L (3.5-5.1)
[2020-11-18] MEDS ORDERED: INSULIN REGULAR 100 UNIT/ML 3ML VIAL. IV ONE (13:00)
[2020-11-18] MEDS ORDERED: DEXTROSE 50% 25 GM / 50ML DISP.SYRIN. IV ONE (13:00)
[2020-11-18] MEDS ORDERED: SODIUM BICARB ADULT 8.4% 50 MEQ/50 ML DISP.SYRIN. IV ONE (13:00)
[2020-11-18] MEDS ORDERED: ONDANSETRON PF 4 MG/2 ML VIAL. IV PRN (13:15)
[2020-11-18 13:17] LABS: PLT ESTIMATE ADEQUATE (ADEQUATE)
[2020-11-18 13:18] LABS: ANISOCYTOSIS MOD
[2020-11-18 15:00] VITALS: BP 140/54
--- NOTE | 2020-11-18 15:00 | NUR ---
Patient has been admitted to room 524. Patient very sleepy, appears to have great difficulty staying awake to answer questions, wakes for short periods. Family has been informed of admission.
--- NOTE | 2020-11-18 17:30 | PDOC1 ---
History and Physical Date of Admission Date of Admission DATE: 11/18/20 TIME: 17:29 History of Present Illness History of Present Illness Ms. Fernandez is a 65 year old female who was brought here by EMS from home due to knee pain, pelvic pain after she fell in the bathroom yesterday. She seems to have many admits for similar problems;. I saw her after the ER and she was comfortable and lethargic with pain meds on and wanted to rest. Patient denies any head or neck injury. Patient says she had chronic low back pain, and this is much worse after the fall yesterday and she was unable to make it to HD due to pain. . Patient denies any bowel or bladder incontinence. Patient has a long history end-stage renal failure, and Dr. Mercado is her renal docotr. movement makes her pain worse, pain was 7.10 Past Medical History Cardiovascular: HTN, Hyperlipidemia Pulmonary: No pertinent hx GI: Constipation, GERD, GI bleed, Peptic Ulcer disease, Other Heme/Onc: Anemia NOS Hepatobiliary: Cirrhosis, Hep A/B/C, Other Psych: Addictions Rheumatologic: Rheumatoid arthritis Infectious disease: No pertinent hx Renal/: Chronic renal failure, Hematuria Endocrine: Diabetes, Hyperparathyroidism Past Surgical History Past Surgical History: Cholecystectomy, Tonsillectomy, Hysterectomy, Other Family History Family History: Alcohol Abuse, Cancer, High Cholestrol, Hypertension, Family History Unknown Social History Smoke: No ALCOHOL: none Drugs: None Current Problem List Problem List Problems Medical Problems: (1) Back pain Status: Acute (2) ESRD (end stage renal disease) on dialysis Status: Chronic (3) Knee pain, bilateral Status: Acute (4) Pelvic pain Status: Acute (5) Weakness Status: Acute Current Medications Current Medications Current Medications Morphine Sulfate (Morphine Sulfate) 4 mg 1X ONCE IV Last administered on 11/18/20at 12:31; Start 11/18/20 at 12:00; Stop 11/18/20 at 12:02; Status DC Dextrose (Dextrose 50%-Water Syringe) 25 gm 1X ONCE IV Last administered on 11/18/20at 13:07; Start 11/18/20 at 13:00; Stop 11/18/20 at 13:01; Status DC Insulin Human Regular (HumuLIN R VIAL) 10 unit 1X ONCE IV Last administered on 11/18/20at 13:08; Start 11/18/20 at 13:00; Stop 11/18/20 at 13:01; Status DC Sodium Bicarbonate (Sodium Bicarb Adult 8.4% Syr) 50 meq 1X ONCE IV Last administered on 11/18/20at 13:07; Start 11/18/20 at 13:00; Stop 11/18/20 at 13:01; Status DC Ondansetron HCl (Zofran) 4 mg PRN Q8HRS PRN IV NAUSEA/VOMITING; Start 11/18/20 at 13:15; Stop 11/19/20 at 13:14 Morphine Sulfate (Morphine Sulfate) 4 mg PRN Q2HR PRN IV PAIN; Start 11/18/20 at 13:15; Stop 11/19/20 at 13:14 Active Scripts Active Percocet 5-325 Mg Tablet (Oxycodone/Acetaminophen) 1 Each Tablet 1 Tab PO QIDPRN PRN MDD 4 Tablet(s) 2 Days Feosol (Ferrous Sulfate) 325 Mg Tablet 325 Mg PO BIDWMEALS 60 Days Proair Hfa (Albuterol Sulfate) 8.5 Gm Hfa.aer.ad 2.5 Mg NEB PRN Q2HRS PRN 30 Days Pantoprazole Sodium (Pantoprazole Sodium) 40 Mg Tablet.dr 40 Mg PO DAILYAC 30 Days Reported Carvedilol 25 Mg Tablet 25 Mg PO BIDWMEALS Folic Acid 0.4 Mg Tablet 0.4 Mg PO DAILY Acetaminophen 500 Mg Tablet 1 Tab PO PRN Q6HRS PRN 15 Days Allergies Allergies: Coded Allergies: No Known Drug Allergies (Unverified , 10/11/20) ROS General: No: Chills, Night Sweats, Fatigue, Malaise, Appetite, Other PSYCHOLOGICAL ROS: No: Anxiety, Behavioral Disorder, Concentration difficultie, Decreased libido, Depression, Disorientation, Hallucinations, Hostility, Irritablity, Memory difficulties, Mood Swings, Obsessive thoughts, Physical abu se, Sexual abuse, Sleep disturbances, Suicidal ideation, Other Eyes: No Blurry vision, No Decreased vision, No Double vision, No Dry eyes, No Excessive tearing, No Eye Pain, No Itchy Eyes, No Loss of vision, No Photophobia, No Scotomata, No Uses contacts, No Uses glasses, No Other HEENT: YES: Other (dry mouth, wanted chips); No: Heacaches, Visual Changes, Hearing change, Nasal congestion, Nasal discharge, Oral lesions, Sinus pain, Sore Throat, Epistaxis, Sneezing, Snoring, Tinnitus, Vertigo, Vocal changes Respiratory: No: Cough, Hemoptysis, Orthopnea, Pleuritic Pain, Shortness of breath, SOB with excertion, Sputum Changes, Stridor, Tachypnea, Wheezing, Other Cardiovascular: No Chest Pain, No Palpitations, No Orthopnea, No Paroxysmal Noc. Dyspnea, No Edema, No Lt Headedness, No Other Gastrointestinal: Yes Nausea Musculoskeletal: Yes Gait Disturbance, Yes Joint Pain, Yes Joint Stiffness, Yes Joint Swelling, Yes Pain In: Neurological: Yes Gait Disturbance; No Behavorial Changes, No Bowel/Bladder ControlChng, No Confusion, No Dizziness, No Headaches, No Impaired Coord/balance, No Memory Loss, No Numbness/Tingling, No Seizures, No Speech Problems, No Tremors, No Visual Changes, No Weakness, No Other Skin: Yes Dry Skin; No Eczema, No Hair Changes, No Lumps, No Mole Changes, No Mottling, No Nail Changes, No Pruritus, No Rash, No Skin Lesion Changes, No Other, No Acne Physical Exam General: Alert, Cooperative, mild distress, Other (lethargic after pain meds) HEENT: Atraumatic Lungs: Clear to auscultation Heart: S1S2, RRR Extremities: No cyanosis, No edema Skin: No significant lesion Neuro: Normal gait, Sensation intact Psych/Mental Status: Mood NL Vitals Vitals Vital Signs Date Time Temp Pulse Resp B/P (MAP) Pulse Ox O2 Delivery O2 Flow Rate FiO2 11/18/20 15:00 97.9 76 16 140/54 (82) 99 Room Air 97.9 Labs Labs Laboratory Tests Test 11/18/20 11:52 White Blood Count 2.7 x10^3/uL (4.0-11.0) Red Blood Count 2.31 x10^6/uL (3.50-5.40) Hemoglobin 7.7 g/dL (12.0-15.5) Hematocrit 23.9 % (36.0-47.0) Mean Corpuscular Volume 104 fL (79-100) Mean Corpuscular Hemoglobin 34 pg (25-35) Mean Corpuscular Hemoglobin Concent 32 g/dL (31-37) Red Cell Distribution Width 22.3 % (11.5-14.5) Platelet Count 149 x10^3/uL (140-400) Neutrophils (%) (Auto) 67 % (31-73) Lymphocytes (%) (Auto) 17 % (24-48) Monocytes (%) (Auto) 12 % (0-9) Eosinophils (%) (Auto) 3 % (0-3) Basophils (%) (Auto) 1 % (0-3) Neutrophils # (Auto) 1.8 x10^3/uL (1.8-7.7) Lymphocytes # (Auto) 0.5 x10^3/uL (1.0-4.8) Monocytes # (Auto) 0.3 x10^3/uL (0.0-1.1) Eosinophils # (Auto) 0.1 x10^3/uL (0.0-0.7) Basophils # (Auto) 0.0 x10^3/uL (0.0-0.2) Platelet Estimate Adequate (ADEQUATE) Large Platelets Occ Anisocytosis Mod Sodium Level 130 mmol/L (136-145) Potassium Level 6.2 mmol/L (3.5-5.1) Chloride Level 92 mmol/L (98-107) Carbon Dioxide Level 25 mmol/L (21-32) Anion Gap 13 (6-14) Blood Urea Nitrogen 59 mg/dL (7-20) Creatinine 9.4 mg/dL (0.6-1.0) Estimated GFR (Cockcroft-Gault) 5.1 BUN/Creatinine Ratio 6 (6-20) Glucose Level 95 mg/dL (70-99) Calcium Level 8.7 mg/dL (8.5-10.1) Magnesium Level 2.2 mg/dL (1.8-2.4) Total Bilirubin 0.5 mg/dL (0.2-1.0) Aspartate Amino Transf (AST/SGOT) 52 U/L (15-37) Alanine Aminotransferase (ALT/SGPT) 30 U/L (14-59) Alkaline Phosphatase 249 U/L (46-116) Creatine Kinase 114 U/L (26-192) Total Protein 7.9 g/dL (6.4-8.2) Albumin 3.0 g/dL (3.4-5.0) Albumin/Globulin Ratio 0.6 (1.0-1.7) Laboratory Tests Test 11/18/20 11:52 White Blood Count 2.7 x10^3/uL (4.0-11.0) Red Blood Count 2.31 x10^6/uL (3.50-5.40) Hemoglobin 7.7 g/dL (12.0-15.5) Hematocrit 23.9 % (36.0-47.0) Mean Corpuscular Volume 104 fL (79-100) Mean Corpuscular Hemoglobin 34 pg (25-35) Mean Corpuscular Hemoglobin Concent 32 g/dL (31-37) Red Cell Distribution Width 22.3 % (11.5-14.5) Platelet Count 149 x10^3/uL (140-400) Neutrophils (%) (Auto) 67 % (31-73) Lymphocytes (%) (Auto) 17 % (24-48) Monocytes (%) (Auto) 12 % (0-9) Eosinophils (%) (Auto) 3 % (0-3) Basophils (%) (Auto) 1 % (0-3) Neutrophils # (Auto) 1.8 x10^3/uL (1.8-7.7) Lymphocytes # (Auto) 0.5 x10^3/uL (1.0-4.8) Monocytes # (Auto) 0.3 x10^3/uL (0.0-1.1) Eosinophils # (Auto) 0.1 x10^3/uL (0.0-0.7) Basophils # (Auto) 0.0 x10^3/uL (0.0-0.2) Platelet Estimate Adequate (ADEQUATE) Large Platelets Occ Anisocytosis Mod Sodium Level 130 mmol/L (136-145) Potassium Level 6.2 mmol/L (3.5-5.1) Chloride Level 92 mmol/L (98-107) Carbon Dioxide Level 25 mmol/L (21-32) Anion Gap 13 (6-14) Blood Urea Nitrogen 59 mg/dL (7-20) Creatinine 9.4 mg/dL (0.6-1.0) Estimated GFR (Cockcroft-Gault) 5.1 BUN/Creatinine Ratio 6 (6-20) Glucose Level 95 mg/dL (70-99) Calcium Level 8.7 mg/dL (8.5-10.1) Magnesium Level 2.2 mg/dL (1.8-2.4) Total Bilirubin 0.5 mg/dL (0.2-1.0) Aspartate Amino Transf (AST/SGOT) 52 U/L (15-37) Alanine Aminotransferase (ALT/SGPT) 30 U/L (14-59) Alkaline Phosphatase 249 U/L (46-116) Creatine Kinase 114 U/L (26-192) Total Protein 7.9 g/dL (6.4-8.2) Albumin 3.0 g/dL (3.4-5.0) Albumin/Globulin Ratio 0.6 (1.0-1.7) VTE Prophylaxis Ordered VTE Prophylaxis Devices: No VTE Pharmacological Prophylaxi: Yes Assessment/Plan Assessment/Plan back pain, knee pain, pelvic pain after a fall yesterday, consult Dr. Spencer from physiatry, he has seen her before for OA and knee pain ESRD, fluid overload, hyperkalemia, needs HD, missed HD yesterday, anemia, chroinc with symptomatic features weakenss and debility and fall risk poor compliance this makes 13 hospitalizations in the past 12 months. admit Justifications for Admission Other Justification Hyperkalemia, hemodialysis ELIZABETH GONZALEZ MD Nov 18, 2020 17:29
[2020-11-18] MEDS ORDERED: ALBUTEROL SULFATE 2.5 MG/3 ML NEBU. NEB PRN (18:00)
[2020-11-18] MEDS ORDERED: ACETAMINOPHEN 500 MG TABLET PO PRN (18:00)
[2020-11-18 19:00] VITALS: BP 141/67
[2020-11-18] MEDS: MORPHINE SULFATE 4 MG/ML VIAL. IV PRN (20:26)
[2020-11-18 23:10] VITALS: BP 128/57
[2020-11-19] MEDS: MORPHINE SULFATE 4 MG/ML VIAL. IV PRN ×2 (02:44→12:44)
[2020-11-19 03:00] VITALS: BP 129/59
[2020-11-19] MEDS: oxyCODONE/APAP 5/325 1 TAB TABLET PO PRN ×2 (05:16→20:35)
[2020-11-19] MEDS ORDERED: diphenhydrAMINE 50 MG/ML VIAL IV PRN ×2 (08:45)
[2020-11-19] MEDS ORDERED: ALBUMIN HUMAN 25% 200 ML IV PRN (08:45)
[2020-11-19] MEDS ORDERED: IV NORMAL SALINE 1000ML BAG 1,000 ML IV PRN ×2 (08:45)
[2020-11-19] MEDS ORDERED: DIALYSIS PATIENT. MC PRN (08:45)
--- NOTE | 2020-11-19 11:41 | CONS ---
DATE OF CONSULTATION: 11/19/2020 LOCATION: She is in room 524. ATTENDING PHYSICIAN: Dr. Pope. REASON FOR CONSULTATION: The patient was seen at the request of Dr. Pope for rehab evaluation. HISTORY OF PRESENT ILLNESS: This is a 65-year-old female known to me in the past. The patient was admitted through the Emergency Room complaining of pain in her hips and knees after she fell in the bathroom on 11/17/2020. The patient was found in the Emergency Room somewhat lethargic with pain medication and wanted to rest. She denied any head or neck injury. She had chronic back pain, worse after the fall and she was unable to make it to the hemodialysis secondary to pain. She denies any trouble with her bowel control. The patient is on hemodialysis for end-stage renal disease with known hypertension, hyperlipidemia, diabetes mellitus, hyperparathyroidism, chronic constipation, gastroesophageal reflux disease, GI bleeding, peptic ulcer disease, anemia, cirrhosis of liver, hepatitis A, B, C positive, addictions, rheumatoid arthritis, chronic renal failure, hematuria, status post cholecystectomy, tonsillectomy, hysterectomy. FAMILY HISTORY: Alcohol abuse, carcinoma, hypercholesterolemia, hypertension. The patient is not known allergic to any medication. She lives in a high-rise apartment and has 7 hours a day of help, taking care of her, a person helps with cooking and sometimes with dressing and bathing as needed. She usually eats Meals on Wheels. If she does not like it, her attendant prepares meals for her. The patient usually takes a shower bath. The patient admits her walker broke. She does not have a wheelchair. PHYSICAL EXAMINATION: On physical examination today revealed a middle-aged female. The patient is obese, alert. She is examined while she is receiving hemodialysis, supine in bed. The patient moves all 4 extremities voluntarily where she had generalized muscle weakness, muscle strength overall being 4/5 grade. Deep tendon reflexes are decreased to absent overall. She had equal perception of touch and pinprick sensation bilaterally. She had crepitus on range of motion of her knee joints. She had tenderness to palpation over medial knee joint line over trochanteric bursa bilaterally. The patient had edema of her whole body because of her receiving hemodialysis, I have not checked her back or her mobility skills at present time. She is anemic. ASSESSMENT: Mobility and self-care limited in a patient with diabetes mellitus with peripheral neuropathy, painful degenerative joint disease of both knees and bilateral trochanteric bursitis, fluid overload, hyperkalemia. The patient with end-stage renal disease; on hemodialysis, hypertension, hyperlipidemia, hepatitis A, B, C positive, obesity, history of peptic ulcer disease and gastrointestinal bleeding, gastroesophageal reflux disease, chronic constipation, cirrhosis of liver, hyperparathyroidism. RECOMMENDATIONS: I have suggested injecting painful bilateral trochanteric bursa and also knee joints to help ease her pain. She is going to consider it and she is going to think about it. Agree with the plan for physical therapy and occupational therapy to get her up as tolerated, to ask the social welfare administrator to provide her a new walker and also a wheelchair for her use at home at the time of discharge. Dr. Pope, I appreciate asking me to participate in the care of this interesting patient. I will be glad to see her for followup with you on as needed basis. SUSY ESTRELLA MD DR: BRIANNE/danial JOB#: [id number] / [id number]
[2020-11-19 11:59] VITALS: BP 121/54
[2020-11-19] MEDS: FERROUS SULFATE 325 MG TABLET. PO SCH ×2 (12:43→17:11)
[2020-11-19] MEDS: PANTOPRAZOLE 40 MG TABLET.DR. PO SCH (12:43)
[2020-11-19] MEDS: DICLOFENAC SODIUM 1% TOPICAL GEL 100GM TUBE. TP SCH ×2 (12:45→20:35)
--- NOTE | 2020-11-19 14:44 | PDOC2 ---
CONSULT Date of Consult Date of Consult DATE: 11/19/20 TIME: 14:34 Reason for Consult Reason for Consult: ESRD, needs dialysis, hyperkalemia Referring Physician Referring Physician: Bal Identification/Chief Complaint Chief Complaint Patient fell at home Source Source: Chart review, Patient History of Present Illness Reason for Visit: Patient is a 65 year old -Citizen Of [place] female who has been on dialysis for the last 6 years under the care of Dr. Mercado. She dialyzes at [facility] on a Saturday schedule. She apparently missed her dialysis as she had fallen and presented to the hospital here yesterday (Saturday ) after she was brought here by EMS from home due to knee pain, pelvic pain. She was noted to be hyperkalemic yesterday. We were not yet been called about this consult that I am aware of. Pt was dialyzed earlier this am. She claims she is feeling well currently. Denies any other complaints other than aches and pains associated with her recent fall. Past Medical History Cardiovascular: HTN, Hyperlipidemia Pulmonary: No pertinent hx GI: Constipation, GERD, GI bleed, Peptic Ulcer disease, Other Heme/Onc: Anemia NOS Hepatobiliary: Cirrhosis, Hep A/B/C, Other Psych: Addictions Rheumatologic: Rheumatoid arthritis Infectious disease: No pertinent hx Renal/: Chronic renal failure, Hematuria Endocrine: Diabetes, Hyperparathyroidism Past Surgical History Past Surgical History: Cholecystectomy, Tonsillectomy, Hysterectomy, Other Family History Family History: Alcohol Abuse, Cancer, High Cholestrol, Hypertension, Family History Unknown Social History No ALCOHOL: none Drugs: None Domestic Violence: Neg Current Problem List Problem List Problems Medical Problems: (1) Back pain Status: Acute (2) ESRD (end stage renal disease) on dialysis Status: Chronic (3) Knee pain, bilateral Status: Acute (4) Pelvic pain Status: Acute (5) Weakness Status: Acute Current Medications Current Medications Current Medications Morphine Sulfate (Morphine Sulfate) 4 mg 1X ONCE IV Last administered on 11/18/20at 12:31; Start 11/18/20 at 12:00; Stop 11/18/20 at 12:02; Status DC Dextrose (Dextrose 50%-Water Syringe) 25 gm 1X ONCE IV Last administered on 11/18/20at 13:07; Start 11/18/20 at 13:00; Stop 11/18/20 at 13:01; Status DC Insulin Human Regular (HumuLIN R VIAL) 10 unit 1X ONCE IV Last administered on 11/18/20at 13:08; Start 11/18/20 at 13:00; Stop 11/18/20 at 13:01; Status DC Sodium Bicarbonate (Sodium Bicarb Adult 8.4% Syr) 50 meq 1X ONCE IV Last admi nistered on 11/18/20at 13:07; Start 11/18/20 at 13:00; Stop 11/18/20 at 13:01; Status DC Ondansetron HCl (Zofran) 4 mg PRN Q8HRS PRN IV NAUSEA/VOMITING; Start 11/18/20 at 13:15; Stop 11/19/20 at 13:14; Status DC Morphine Sulfate (Morphine Sulfate) 4 mg PRN Q2HR PRN IV PAIN Last administered on 11/19/20at 12:44; Start 11/18/20 at 13:15; Stop 11/19/20 at 13:14; Status DC Acetaminophen (Tylenol) 500 mg PRN Q6HRS PRN PO pain or fever; Start 11/18/20 at 18:00 Albuterol Sulfate (Ventolin Neb Soln) 2.5 mg PRN Q2HRS PRN NEB SOB / WHILE AWAKE; Start 11/18/20 at 18:00 Ferrous Sulfate (Feosol) 325 mg BIDWMEALS PO Last administered on 11/19/20at 12:43; Start 11/19/20 at 08:00 Oxycodone/ Acetaminophen (Percocet 5/325) 1 tab QIDPRN PRN PO PAIN Last administered on 11/19/20at 05:16; Start 11/18/20 at 18:00 Pantoprazole Sodium (Protonix) 40 mg DAILYAC PO Last administered on 11/19/20at 12:43; Start 11/19/20 at 07:30 Sodium Chloride 1,000 ml @ 1,000 mls/hr Q1H PRN IV hypotension; Start 11/19/20 at 08:45; Stop 11/19/20 at 14:44 Albumin Human 200 ml @ 200 mls/hr 1X PRN PRN IV Hypotension; Start 11/19/20 at 08:45; Stop 11/19/20 at 14:44 Diphenhydramine HCl (Benadryl) 25 mg 1X PRN PRN IV ITCHING; Start 11/19/20 at 08:45; Stop 11/20/20 at 08:44 Diphenhydramine HCl (Benadryl) 25 mg 1X PRN PRN IV ITCHING; Start 11/19/20 at 08:45; Stop 11/20/20 at 08:44 Sodium Chloride 1,000 ml @ 400 mls/hr Q2H30M PRN IV PATENCY; Start 11/19/20 at 08:45; Stop 11/19/20 at 20:44 Info (PHARMACY MONITORING -- do not chart) 1 each PRN DAILY PRN MC SEE COMMENTS; Start 11/19/20 at 08:45 Diclofenac Sodium (Voltaren) 1 leonila BID TP Last administered on 11/19/20at 12:45; Start 11/19/20 at 12:00 Active Scripts Active Percocet 5-325 Mg Tablet (Oxycodone/Acetaminophen) 1 Each Tablet 1 Tab PO QIDPRN PRN MDD 4 Tablet(s) 2 Days Feosol (Ferrous Sulfate) 325 Mg Tablet 325 Mg PO BIDWMEALS 60 Days Proair Hfa (Albuterol Sulfate) 8.5 Gm Hfa.aer.ad 2.5 Mg NEB PRN Q2HRS PRN 30 Days Pantoprazole Sodium (Pantoprazole Sodium) 40 Mg Tablet.dr 40 Mg PO DAILYAC 30 Days Reported Carvedilol 25 Mg Tablet 25 Mg PO BIDWMEALS Folic Acid 0.4 Mg Tablet 0.4 Mg PO DAILY Acetaminophen 500 Mg Tablet 1 Tab PO PRN Q6HRS PRN 15 Days Allergies Allergies: Coded Allergies: No Known Drug Allergies (Unverified , 10/11/20) ROS Review of System Negative other than as documented under HPI Physical Exam Physical Exam General Appearance: Awake remains sleeping but easily arousable Oriented x 2-3 In no Distress Eyes: VIsion Unchanged Conjunctiva Normal EN: No EN Drainage Mucous Memb. moist Neck: no JVD no JVP Supple no Thyromegaly CVS: S1 S2 soft Murmur No Gallop No Rub no Edema Resp: no Rales no Rhonchi no Acc. Muscle use GI: BS +ve NO Bruit Non Tender Non Distended; obese : no CVA tenderness; no Suprapubic Tenderness SKIN: no Rashes Breast Exam deferred Mu.Sk: Adequate ROM no Muscle Atrophy Heme: Unable to palpate Obvious LAD no Splenomegaly NEURO: Good Strength and Tone Cranial Nerves II - XII grossly intact Psych: ? Flat and Depressed affect no Active hallucination Vital Signs Vital Signs Date Time Temp Pulse Resp B/P (MAP) Pulse Ox O2 Delivery O2 Flow Rate FiO2 11/19/20 12:44 Room Air 11/19/20 11:59 97.6 74 20 121/54 (76) 91 97.6 Assessment & Plan ESRD.: Patient dialyzed earlier today per her Saturday schedule Marginal hyponatremia: Anticipate correction with hemodialysis as accomplished earlier today Hyperkalemia: Presumably due to missed dialysis on . Dialysis accomplished earlier today and anticipate this to corrected with the same. Anemia with pancytopenia: Consider hematology evaluation. Will start erythropoietin for hemoglobin. Transfuse if hemoglobin less than 7.. History of hyperphosphatemia of renal failure: Check phosphorus levels and alter binder regimen as per oral intake Discussed Plan of Care and prognosis etc. at length with family. Labs Labs Laboratory Tests Test 11/18/20 11:52 11/18/20 17:40 11/18/20 19:02 11/18/20 21:44 White Blood Count 2.7 x10^3/uL (4.0-11.0) Red Blood Count 2.31 x10^6/uL (3.50-5.40) Hemoglobin 7.7 g/dL (12.0-15.5) Hematocrit 23.9 % (36.0-47.0) Mean Corpuscular Volume 104 fL (79-100) Mean Corpuscular Hemoglobin 34 pg (25-35) Mean Corpuscular Hemoglobin Concent 32 g/dL (31-37) Red Cell Distribution Width 22.3 % (11.5-14.5) Platelet Count 149 x10^3/uL (140-400) Neutrophils (%) (Auto) 67 % (31-73) Lymphocytes (%) (Auto) 17 % (24-48) Monocytes (%) (Auto) 12 % (0-9) Eosinophils (%) (Auto) 3 % (0-3) Basophils (%) (Auto) 1 % (0-3) Neutrophils # (Auto) 1.8 x10^3/uL (1.8-7.7) Lymphocytes # (Auto) 0.5 x10^3/uL (1.0-4.8) Monocytes # (Auto) 0.3 x10^3/uL (0.0-1.1) Eosinophils # (Auto) 0.1 x10^3/uL (0.0-0.7) Basophils # (Auto) 0.0 x10^3/uL (0.0-0.2) Platelet Estimate Adequate (ADEQUATE) Large Platelets Occ Anisocytosis Mod Sodium Level 130 mmol/L (136-145) Potassium Level 6.2 mmol/L (3.5-5.1) Chloride Level 92 mmol/L (98-107) Carbon Dioxide Level 25 mmol/L (21-32) Anion Gap 13 (6-14) Blood Urea Nitrogen 59 mg/dL (7-20) Creatinine 9.4 mg/dL (0.6-1.0) Estimated GFR (Cockcroft-Gault) 5.1 BUN/Creatinine Ratio 6 (6-20) Glucose Level 95 mg/dL (70-99) Calcium Level 8.7 mg/dL (8.5-10.1) Magnesium Level 2.2 mg/dL (1.8-2.4) Total Bilirubin 0.5 mg/dL (0.2-1.0) Aspartate Amino Transf (AST/SGOT) 52 U/L (15-37) Alanine Aminotransferase (ALT/SGPT) 30 U/L (14-59) Alkaline Phosphatase 249 U/L (46-116) Creatine Kinase 114 U/L (26-192) Total Protein 7.9 g/dL (6.4-8.2) Albumin 3.0 g/dL (3.4-5.0) Albumin/Globulin Ratio 0.6 (1.0-1.7) Glucose (Fingerstick) 64 mg/dL (70-99) 125 mg/dL (70-99) 106 mg/dL (70-99) Test 11/19/20 07:53 11/19/20 09:21 11/19/20 11:50 Glucose (Fingerstick) 128 mg/dL (70-99) 86 mg/dL (70-99) Hepatitis B Surface Antigen Nonreactive (Nonreactive) Hepatitis B Surface Antibody Nonreactive Laboratory Tests Test 11/18/20 17:40 11/18/20 19:02 11/18/20 21:44 11/19/20 07:53 Glucose (Fingerstick) 64 mg/dL (70-99) 125 mg/dL (70-99) 106 mg/dL (70-99) 128 mg/dL (70-99) Test 11/19/20 09:21 11/19/20 11:50 Hepatitis B Surface Antigen Nonreactive (Nonreactive) Hepatitis B Surface Antibody Nonreactive Glucose (Fingerstick) 86 mg/dL (70-99) Review All relevant outside records, renal labs, imaging studies, telemetry/EKG's were reviewed. PAYTON MORALES MD Nov 19, 2020 14:43
[2020-11-19 15:59] VITALS: BP 136/41
--- NOTE | 2020-11-19 16:29 | PDOC ---
[employer] PROGRESS NOTE Date of Service DOS: DATE: 11/19/20 TIME: 16:26 Chief Complaint Chief Complaint Assessment/Plan back pain, knee pain, pelvic pain after a fall yesterday, consult Dr. Spencer from physiatry, he has seen her before for OA and knee pain ESRD, fluid overload, hyperkalemia, needs HD, missed HD yesterday, anemia, chroinc with symptomatic features weakenss and debility and fall risk poor compliance this makes 13 hospitalizations in the past 12 months. admit History of Present Illness History of Present Illness Ms. Fernandez is a 65 year old female who was brought here by EMS from home due to knee pain, pelvic pain after she fell in the bathroom yesterday. She seems to have many admits for similar problems;. I saw her after the ER and she was comfortable and lethargic with pain meds on and wanted to rest. Patient denies any head or neck injury. Patient says she had chronic low back pain, and this is much worse after the fall yesterday and she was unable to make it to HD due to pain. . Patient denies any bowel or bladder incontinence. Patient has a long history end-stage renal failure, and Dr. Mercado is her renal docotr. movement makes her pain worse, pain was 7.10 11/19: Patient seen and evaluated. She refused PT today. Discussed with patient that our goal is to try to get her stronger to where she is able to ambulate with a walker at home. Told patient she needs to participate with PT tomorrow and patient understood. Discussed with Dr. Spencer Will provide patient a walker at time of discharge. Plan is for SNF, barring PT eval and recommendations. Vitals/I&O Vitals/I&O: Vital Signs Date Time Temp Pulse Resp B/P (MAP) Pulse Ox O2 Delivery O2 Flow Rate FiO2 11/19/20 12:44 Room Air 11/19/20 11:59 97.6 74 20 121/54 (76) 91 97.6 I & O 11/18/20 11/18/20 11/19/20 15:00 23:00 07:00 Intake Total 240 ml 480 ml Balance 240 ml 480 ml Physical Exam General: Alert, Cooperative, No acute distress, Other Heart: Regular rate Lungs: Clear Abdomen: Soft, No tenderness Extremities: No cyanosis, No edema Skin: No rashes, No significant lesion Labs Labs: Laboratory Tests Test 11/18/20 17:40 11/18/20 19:02 11/18/20 21:44 11/19/20 07:53 Glucose (Fingerstick) 64 mg/dL (70-99) 125 mg/dL (70-99) 106 mg/dL (70-99) 128 mg/dL (70-99) Test 11/19/20 09:21 11/19/20 11:50 Hepatitis B Surface Antigen Nonreactive (Nonreactive) Hepatitis B Surface Antibody Nonreactive Glucose (Fingerstick) 86 mg/dL (70-99) Assessment and Plan Assessmemt and Plan Problems Medical Problems: (1) Back pain Status: Acute (2) ESRD (end stage renal disease) on dialysis Status: Chronic (3) Knee pain, bilateral Status: Acute (4) Pelvic pain Status: Acute (5) Weakness Status: Acute Comment Review of Relevant I have reviewed the following items tamika (where applicable) has been applied. Medications: Current Medications Medications (Trade) Dose Ordered Sig/Kimberly Route PRN Reason Start Time Stop Time Status Last Admin Dose Admin Ferrous Sulfate (Feosol) 325 mg BIDWMEALS PO 11/19/20 08:00 11/19/20 12:43 Oxycodone/ Acetaminophen (Percocet 5/325) 1 tab QIDPRN PRN PO PAIN 11/18/20 18:00 11/19/20 05:16 Pantoprazole Sodium (Protonix) 40 mg DAILYAC PO 11/19/20 07:30 11/19/20 12:43 Diclofenac Sodium (Voltaren) 1 leonila BID TP 11/19/20 12:00 11/19/20 12:45 Justifications for Admission Other Justification Hyperkalemia, hemodialysis REMINGTON BACK MD Nov 19, 2020 16:28
[2020-11-19] MEDS: NYSTATIN TOPICAL POWDER 15GM BOTTLE. TP SCH (17:11)
[2020-11-19 19:00] VITALS: BP 133/58
[2020-11-19 23:00] VITALS: BP 139/57
[2020-11-20 03:02] VITALS: BP 127/54
[2020-11-20] MEDS: oxyCODONE/APAP 5/325 1 TAB TABLET PO PRN ×3 (06:07→20:55)
[2020-11-20 07:59] VITALS: BP 123/56
--- NOTE | 2020-11-20 08:28 | PDOC ---
[employer] PROGRESS NOTE Date of Service DOS: DATE: 11/20/20 TIME: 08:26 Chief Complaint Chief Complaint Assessment/Plan back pain, knee pain, pelvic pain after a fall yesterday, consult Dr. Spencer from physiatry, he has seen her before for OA and knee pain ESRD, fluid overload, hyperkalemia, needs HD, missed HD yesterday, anemia, chroinc with symptomatic features weakenss and debility and fall risk poor compliance this makes 13 hospitalizations in the past 12 months. admit History of Present Illness History of Present Illness Ms. Fernandez is a 65 year old female who was brought here by EMS from home due to knee pain, pelvic pain after she fell in the bathroom yesterday. She seems to have many admits for similar problems;. I saw her after the ER and she was comfortable and lethargic with pain meds on and wanted to rest. Patient denies any head or neck injury. Patient says she had chronic low back pain, and this is much worse after the fall yesterday and she was unable to make it to HD due to pain. . Patient denies any bowel or bladder incontinence. Patient has a long history end-stage renal failure, and Dr. Mercado is her renal docotr. movement makes her pain worse, pain was 7.10 11/19: Patient seen and evaluated. She refused PT today. Discussed with patient that our goal is to try to get her stronger to where she is able to ambulate with a walker at home. Told patient she needs to participate with PT tomorrow and patient understood. Discussed with Dr. Spencer Will provide patient a walker at time of discharge. Plan is for SNF, barring PT eval and recommendations. 11/20: Patient seen and evaluated. Morning labs pending. Discussed with patient about participating with physical therapy today. Plan is still for SNF next week once PT has provided their assessment and evaluation. Vitals/I&O Vitals/I&O: Vital Signs Date Time Temp Pulse Resp B/P (MAP) Pulse Ox O2 Delivery O2 Flow Rate FiO2 11/20/20 06:07 Room Air 11/20/20 03:02 97.6 81 20 127/54 (78) 98 97.6 I & O 11/19/20 11/19/20 11/20/20 15:00 23:00 07:00 Intake Total 200 ml 200 ml Output Total 0 ml Balance 200 ml 200 ml 0 ml Physical Exam General: Alert, Cooperative, No acute distress, Other Heart: Regular rate Lungs: Clear Abdomen: Soft, No tenderness Extremities: No cyanosis, No edema Skin: No rashes, No significant lesion Labs Labs: Laboratory Tests Test 11/19/20 09:21 11/19/20 11:50 11/19/20 17:21 11/19/20 20:21 Hepatitis B Surface Antigen Nonreactive (Nonreactive) Hepatitis B Surface Antibody Nonreactive Glucose (Fingerstick) 86 mg/dL (70-99) 131 mg/dL (70-99) 143 mg/dL (70-99) Assessment and Plan Assessmemt and Plan Problems Medical Problems: (1) Back pain Status: Acute (2) ESRD (end stage renal disease) on dialysis Status: Chronic (3) Knee pain, bilateral Status: Acute (4) Pelvic pain Status: Acute (5) Weakness Status: Acute Comment Review of Relevant I have reviewed the following items tamika (where applicable) has been applied. Medications: Current Medications Medications (Trade) Dose Ordered Sig/Kimberly Route PRN Reason Start Time Stop Time Status Last Admin Dose Admin Diclofenac Sodium (Voltaren) 1 leonila BID TP 11/19/20 12:00 11/19/20 20:35 Nystatin (Nystop) 1 leonila BID TP 11/19/20 21:00 11/19/20 17:11 Justifications for Admission Other Justification Hyperkalemia, hemodialysis REMINGTON BACK MD Nov 20, 2020 08:28
[2020-11-20] MEDS ORDERED: MAGNESIUM SULFATE 2GM 50 ML IV PRN (08:45)
[2020-11-20] MEDS: FERROUS SULFATE 325 MG TABLET. PO SCH ×2 (08:53→17:53)
[2020-11-20] MEDS: PANTOPRAZOLE 40 MG TABLET.DR. PO SCH (08:53)
[2020-11-20] MEDS: DICLOFENAC SODIUM 1% TOPICAL GEL 100GM TUBE. TP SCH ×2 (08:54→20:55)
[2020-11-20] MEDS: NYSTATIN TOPICAL POWDER 15GM BOTTLE. TP SCH ×2 (08:54→20:56)
--- NOTE | 2020-11-20 10:13 | PDOC ---
DATE OF SERVICE: DOS: DATE: 11/20/20 TIME: 10:11 SUBJECTIVE ROS Follow-up for ESRD on hemodialysis Saturday Doing and feeling much better overall. She was able to get up out of bed and ambulated with physical therapy CVS: no Orthopnea, no CP RESP: no SOB, no CORTES GI: no Nausea, no Vomiting : no Dysuria, no Urgency OBJECTIVE Vital Signs Vital Signs Date Time Temp Pulse Resp B/P (MAP) Pulse Ox O2 Delivery O2 Flow Rate FiO2 11/20/20 08:54 Room Air 11/20/20 07:59 97.5 82 18 123/56 (78) 98 97.5 I & 0 Intake and Output 11/20/20 07:00 Intake Total 400 ml Output Total 0 ml Balance 400 ml Intake Oral 400 ml Output Urine Total 0 ml PHYSICAL EXAM Physical Exam General Appearance: Awake remains sleeping but easily arousable Oriented x 2-3 In no Distress Eyes: VIsion Unchanged Conjunctiva Normal EN: No EN Drainage Mucous Memb. moist Neck: no JVD no JVP Supple no Thyromegaly CVS: S1 S2 soft Murmur No Gallop No Rub no Edema Resp: no Rales no Rhonchi no Acc. Muscle use GI: BS +ve NO Bruit Non Tender Non Distended; obese : no CVA tenderness; no Suprapubic Tenderness Assessment & Plan ESRD: Current fluid and E-lyte status does not necessitate emergent need for dialysis. Will re-evaluate for dialysis in the am and continue on TTSat schedule. Marginal hyponatremia: Anticipate correction with hemodialysis. We will recheck her labs in morning Hyperkalemia: Presumably due to missed dialysis on . Dialysis acc omplished yesterday and anticipate this to corrected with the same. Recheck with labs in the morning for rebound Anemia with pancytopenia: Consider hematology evaluation. Will start erythropoietin for hemoglobin. Transfuse if hemoglobin less than 7.. History of hyperphosphatemia of renal failure: Check phosphorus levels and alter binder regimen as per oral intake Discussed Plan of Care and prognosis etc. at length with family. COMMENT/RELEVANT DATA Meds Current Medications Medications (Trade) Dose Ordered Sig/Kimberly Start Time Stop Time Status Last Admin Dose Admin Acetaminophen (Tylenol) 500 mg PRN Q6HRS PRN 11/18/20 18:00 Albumin Human 200 ml @ 200 mls/hr 1X PRN PRN 11/19/20 08:45 11/19/20 14:44 DC Albuterol Sulfate (Ventolin Neb Soln) 2.5 mg PRN Q2HRS PRN 11/18/20 18:00 Dextrose (Dextrose 50%-Water Syringe) 25 gm 1X ONCE 11/18/20 13:00 11/18/20 13:01 DC 11/18/20 13:07 25 GM Diclofenac Sodium (Voltaren) 1 leonila BID 11/19/20 12:00 11/20/20 08:54 1 LEONILA Diphenhydramine HCl (Benadryl) 25 mg 1X PRN PRN 11/19/20 08:45 11/20/20 08:44 DC Ferrous Sulfate (Feosol) 325 mg BIDWMEALS 11/19/20 08:00 11/20/20 08:53 325 MG Info (PHARMACY MONITORING -- do not chart) 1 each PRN DAILY PRN 11/19/20 08:45 Insulin Human Regular (HumuLIN R VIAL) 10 unit 1X ONCE 11/18/20 13:00 11/18/20 13:01 DC 11/18/20 13:08 10 UNIT Magnesium Sulfate 50 ml @ 25 mls/hr PRN DAILY PRN 11/20/20 08:45 Morphine Sulfate (Morphine Sulfate) 4 mg PRN Q2HR PRN 11/18/20 13:15 11/19/20 13:14 DC 11/19/20 12:44 4 MG Nystatin (Nystop) 1 leonila BID 11/19/20 21:00 11/20/20 08:54 1 LEONILA Ondansetron HCl (Zofran) 4 mg PRN Q8HRS PRN 11/18/20 13:15 11/19/20 13:14 DC Oxycodone/ Acetaminophen (Percocet 5/325) 1 tab QIDPRN PRN 11/18/20 18:00 11/20/20 06:07 1 TAB Pantoprazole Sodium (Protonix) 40 mg DAILYAC 11/19/20 07:30 11/20/20 08:53 40 MG Sodium Bicarbonate (Sodium Bicarb Adult 8.4% Syr) 50 meq 1X ONCE 11/18/20 13:00 11/18/20 13:01 DC 11/18/20 13:07 50 MEQ Sodium Chloride 1,000 ml @ 400 mls/hr Q2H30M PRN 11/19/20 08:45 11/19/20 20:44 DC Lab Laboratory Tests Test 11/19/20 11:50 11/19/20 17:21 11/19/20 20:21 11/20/20 08:37 Glucose (Fingerstick) 86 mg/dL (70-99) 131 mg/dL (70-99) 143 mg/dL (70-99) 137 mg/dL (70-99) Results All relevant outside records, renal labs, imaging studies, telemetry/EKG's were reviewed. Justicifation of Admission Dx: Justifications for Admission: Justification of Admission Dx: Yes Acute Renal Failure: Serum Cr > 4mg/dL Chronic Renal Failure: Hemodynamic Instability Sepsis: Infection PAYTON MORALES MD Nov 20, 2020 10:13
[2020-11-20 11:21] LABS: CALCIUM 8.8 mg/dL (8.5-10.1); CREATININE 6.9 mg/dL (0.6-1.0); GFR 7.2; POTASSIUM 4.1 mmol/L (3.5-5.1)
[2020-11-20 11:26] LABS: BASO % 2 % (0-3); EOS # 0.1 x10^3/uL (0.0-0.7); EOS % 4 % (0-3); HEMOGLOBIN 7.2 g/dL (12.0-15.5); LYMPH # 0.4 x10^3/uL (1.0-4.8); LYMPH % 17 % (24-48); MEAN CORPUSCULAR HEMOGLOBIN 34 pg (25-35); MEAN CORPUSCULAR HGB CONC 33 g/dL (31-37); MEAN CORPUSCULAR VOLUME 105 fL (79-100); MONO # 0.3 x10^3/uL (0.0-1.1); MONO % 13 % (0-9); NEUT # 1.5 x10^3/uL (1.8-7.7); NEUT % 65 % (31-73); PLATELET COUNT 117 x10^3/uL (140-400); RED CELL DISTRIBUTION WIDTH 22.7 % (11.5-14.5); WHITE BLOOD COUNT 2.2 x10^3/uL (4.0-11.0)
[2020-11-20 11:59] VITALS: BP 110/47
[2020-11-20 15:59] VITALS: BP 150/58
[2020-11-20 19:00] VITALS: BP 135/52
[2020-11-20] MEDS ORDERED: DARBEPOETIN ALFA 60 MCG/0.3 ML DISP.SYRIN. SQ SCH (21:00)
[2020-11-20 23:00] VITALS: BP 115/50
[2020-11-21] VITALS (9 sets, daily range): BP systolic 119–154; BP diastolic 40–81
[2020-11-21 07:25] LABS: BASO % 1 % (0-3); EOS # 0.1 x10^3/uL (0.0-0.7); EOS % 3 % (0-3); LYMPH # 0.4 x10^3/uL (1.0-4.8); LYMPH % 19 % (24-48); MEAN CORPUSCULAR HEMOGLOBIN 34 pg (25-35); MEAN CORPUSCULAR HGB CONC 33 g/dL (31-37); MEAN CORPUSCULAR VOLUME 104 fL (79-100); MONO # 0.4 x10^3/uL (0.0-1.1); MONO % 16 % (0-9); NEUT # 1.3 x10^3/uL (1.8-7.7); NEUT % 61 % (31-73); PLATELET COUNT 117 x10^3/uL (140-400); RED BLOOD COUNT 1.93 x10^6/uL (3.50-5.40); RED CELL DISTRIBUTION WIDTH 22.3 % (11.5-14.5); WHITE BLOOD COUNT 2.2 x10^3/uL (4.0-11.0)
[2020-11-21 07:39] LABS: ALBUMIN 2.4 g/dL (3.4-5.0); CALCIUM 8.9 mg/dL (8.5-10.1); CREATININE 7.4 mg/dL (0.6-1.0); GFR 6.7; PHOSPHORUS 5.2 mg/dL (2.6-4.7); POTASSIUM 4.7 mmol/L (3.5-5.1)
[2020-11-21 07:51] LABS: HEMATOCRIT 20.1 % (36.0-47.0); HEMOGLOBIN 6.6 g/dL (12.0-15.5)
[2020-11-21] MEDS: PANTOPRAZOLE 40 MG TABLET.DR. PO SCH (08:37)
[2020-11-21] MEDS: FERROUS SULFATE 325 MG TABLET. PO SCH ×2 (08:37→17:00)
[2020-11-21] MEDS: DICLOFENAC SODIUM 1% TOPICAL GEL 100GM TUBE. TP SCH ×2 (08:38→19:50)
[2020-11-21] MEDS: oxyCODONE/APAP 5/325 1 TAB TABLET PO PRN ×2 (08:38→19:49)
[2020-11-21] MEDS: NYSTATIN TOPICAL POWDER 15GM BOTTLE. TP SCH ×2 (08:39→19:52)
--- NOTE | 2020-11-21 08:51 | PDOC ---
PROGRESS NOTES Date of Service: DATE: 11/21/20 TIME: 08:50 Chief Complaint Chief Complaint -hospital summary, [facility] date of admit 11-16-20 date of discharge 11-21-20 consults nephrology for dialysis, DR ESTRELLA, NURSE PRIVATE DUTY COMPLICATION NONE FOLLOW UP DR SHULTZ TOMORROW, DIALYSIS d/c plan to home with home health 11-21, transfused today admitted with back pain, knee pain, pelvic pain after a fall consult Dr. Estrella from physiatry, he has seen her before for OA and knee pain OK TO D/C WITH HOME HEALTH 11-21 ESRD, fluid overload, hyperkalemia, needs HD, missed HD anemia, chronic with symptomatic features weakenss and debility high fall risk, pt/ot poor compliance this makes 13 hospitalizations in the past 12 months. admit morbid obesity, weight loss education provided ANEMIA, TRANSFUSED TODAY ONE UNIT 11/21 D/C PLANNING 36 MIN History of Present Illness History of Present Illness Ms. Fernandez is a 65 year old female who was brought here by EMS from home due to knee pain, pelvic pain after she fell in the bathroom yesterday. She seems to have many admits for similar problems;. I saw her after the ER and she was comfortable and lethargic with pain meds on and wanted to rest. Patient denies any head or neck injury. Patient says she had chronic low back pain, and this is much worse after the fall yesterday and she was unable to make it to HD due to pain. . Patient denies any bowel or bladder incontinence. Patient has a long history end-stage renal failure, and Dr. Shultz is her renal docotr. movement makes her pain worse, pain was 7.10 11/19: Patient seen and evaluated. She refused PT today. Discussed with patient that our goal is to try to get her stronger to where she is able to ambulate with a walker at home. Told patient she needs to participate with PT tomorrow and patient understood. Discussed with Dr. Estrella Will provide patient a walker at time of discharge. Plan is for SNF, barring PT eval and recommendations. 11/20: Patient seen and evaluated. Morning labs pending. Discussed with patient about participating with physical therapy today. Plan is still for SNF next week once PT has provided their assessment and evaluation. Vitals Vitals Vital Signs Date Time Temp Pulse Resp B/P (MAP) Pulse Ox O2 Delivery O2 Flow Rate FiO2 11/21/20 08:38 Room Air 11/21/20 07:00 98.0 79 18 135/50 (78) 98 98.0 Physical Exam General: Alert, Oriented X3, Cooperative, No acute distress, Other Heart: Regular rate Lungs: Clear Abdomen: Soft, No tenderness Extremities: No clubbing, No cyanosis, No edema Skin: No rashes, No significant lesion Labs LABS Laboratory Tests Test 11/20/20 10:50 11/20/20 12:17 11/20/20 17:22 11/20/20 20:22 White Blood Count 2.2 x10^3/uL (4.0-11.0) Red Blood Count 2.10 x10^6/uL (3.50-5.40) Hemoglobin 7.2 g/dL (12.0-15.5) Hematocrit 22.0 % (36.0-47.0) Mean Corpuscular Volume 105 fL (79-100) Mean Corpuscular Hemoglobin 34 pg (25-35) Mean Corpuscular Hemoglobin Concent 33 g/dL (31-37) Red Cell Distribution Width 22.7 % (11.5-14.5) Platelet Count 117 x10^3/uL (140-400) Neutrophils (%) (Auto) 65 % (31-73) Lymphocytes (%) (Auto) 17 % (24-48) Monocytes (%) (Auto) 13 % (0-9) Eosinophils (%) (Auto) 4 % (0-3) Basophils (%) (Auto) 2 % (0-3) Neutrophils # (Auto) 1.5 x10^3/uL (1.8-7.7) Lymphocytes # (Auto) 0.4 x10^3/uL (1.0-4.8) Monocytes # (Auto) 0.3 x10^3/uL (0.0-1.1) Eosinophils # (Auto) 0.1 x10^3/uL (0.0-0.7) Basophils # (Auto) 0.0 x10^3/uL (0.0-0.2) Sodium Level 136 mmol/L (136-145) Potassium Level 4.1 mmol/L (3.5-5.1) Chloride Level 97 mmol/L (98-107) Carbon Dioxide Level 29 mmol/L (21-32) Anion Gap 10 (6-14) Blood Urea Nitrogen 41 mg/dL (7-20) Creatinine 6.9 mg/dL (0.6-1.0) Estimated GFR (Cockcroft-Gault) 7.2 Glucose Level 142 mg/dL (70-99) Calcium Level 8.8 mg/dL (8.5-10.1) Glucose (Fingerstick) 108 mg/dL (70-99) 138 mg/dL (70-99) 131 mg/dL (70-99) Test 11/21/20 06:50 11/21/20 07:04 White Blood Count 2.2 x10^3/uL (4.0-11.0) Red Blood Count 1.93 x10^6/uL (3.50-5.40) Hemoglobin 6.6 g/dL (12.0-15.5) Hematocrit 20.1 % (36.0-47.0) Mean Corpuscular Volume 104 fL (79-100) Mean Corpuscular Hemoglobin 34 pg (25-35) Mean Corpuscular Hemoglobin Concent 33 g/dL (31-37) Red Cell Distribution Width 22.3 % (11.5-14.5) Platelet Count 117 x10^3/uL (140-400) Neutrophils (%) (Auto) 61 % (31-73) Lymphocytes (%) (Auto) 19 % (24-48) Monocytes (%) (Auto) 16 % (0-9) Eosinophils (%) (Auto) 3 % (0-3) Basophils (%) (Auto) 1 % (0-3) Neutrophils # (Auto) 1.3 x10^3/uL (1.8-7.7) Lymphocytes # (Auto) 0.4 x10^3/uL (1.0-4.8) Monocytes # (Auto) 0.4 x10^3/uL (0.0-1.1) Eosinophils # (Auto) 0.1 x10^3/uL (0.0-0.7) Basophils # (Auto) 0.0 x10^3/uL (0.0-0.2) Sodium Level 134 mmol/L (136-145) Potassium Level 4.7 mmol/L (3.5-5.1) Chloride Level 97 mmol/L (98-107) Carbon Dioxide Level 29 mmol/L (21-32) Anion Gap 8 (6-14) Blood Urea Nitrogen 46 mg/dL (7-20) Creatinine 7.4 mg/dL (0.6-1.0) Estimated GFR (Cockcroft-Gault) 6.7 Glucose Level 102 mg/dL (70-99) Calcium Level 8.9 mg/dL (8.5-10.1) Phosphorus Level 5.2 mg/dL (2.6-4.7) Magnesium Level 2.1 mg/dL (1.8-2.4) Albumin 2.4 g/dL (3.4-5.0) Glucose (Fingerstick) 100 mg/dL (70-99) Assessment and Plan Assessmemt and Plan Problems Medical Problems: (1) Back pain Status: Acute (2) ESRD (end stage renal disease) on dialysis Status: Chronic (3) Knee pain, bilateral Status: Acute (4) Pelvic pain Status: Acute (5) Weakness Status: Acute Comment Review of Relevant I have reviewed the following items tamika (where applicable) has been applied. Labs Laboratory Tests Test 11/19/20 09:21 11/19/20 11:50 11/19/20 17:21 11/19/20 20:21 Hepatitis B Surface Antigen Nonreactive (Nonreactive) Hepatitis B Surface Antibody Nonreactive Glucose (Fingerstick) 86 mg/dL (70-99) 131 mg/dL (70-99) 143 mg/dL (70-99) Test 11/20/20 08:37 11/20/20 10:50 11/20/20 12:17 11/20/20 17:22 Glucose (Fingerstick) 137 mg/dL (70-99) 108 mg/dL (70-99) 138 mg/dL (70-99) White Blood Count 2.2 x10^3/uL (4.0-11.0) Red Blood Count 2.10 x10^6/uL (3.50-5.40) Hemoglobin 7.2 g/dL (12.0-15.5) Hematocrit 22.0 % (36.0-47.0) Mean Corpuscular Volume 105 fL (79-100) Mean Corpuscular Hemoglobin 34 pg (25-35) Mean Corpuscular Hemoglobin Concent 33 g/dL (31-37) Red Cell Distribution Width 22.7 % (11.5-14.5) Platelet Count 117 x10^3/uL (140-400) Neutrophils (%) (Auto) 65 % (31-73) Lymphocytes (%) (Auto) 17 % (24-48) Monocytes (%) (Auto) 13 % (0-9) Eosinophils (%) (Auto) 4 % (0-3) Basophils (%) (Auto) 2 % (0-3) Neutrophils # (Auto) 1.5 x10^3/uL (1.8-7.7) Lymphocytes # (Auto) 0.4 x10^3/uL (1.0-4.8) Monocytes # (Auto) 0.3 x10^3/uL (0.0-1.1) Eosinophils # (Auto) 0.1 x10^3/uL (0.0-0.7) Basophils # (Auto) 0.0 x10^3/uL (0.0-0.2) Sodium Level 136 mmol/L (136-145) Potassium Level 4.1 mmol/L (3.5-5.1) Chloride Level 97 mmol/L (98-107) Carbon Dioxide Level 29 mmol/L (21-32) Anion Gap 10 (6-14) Blood Urea Nitrogen 41 mg/dL (7-20) Creatinine 6.9 mg/dL (0.6-1.0) Estimated GFR (Cockcroft-Gault) 7.2 Glucose Level 142 mg/dL (70-99) Calcium Level 8.8 mg/dL (8.5-10.1) Test 11/20/20 20:22 11/21/20 06:50 11/21/20 07:04 Glucose (Fingerstick) 131 mg/dL (70-99) 100 mg/dL (70-99) White Blood Count 2.2 x10^3/uL (4.0-11.0) Red Blood Count 1.93 x10^6/uL (3.50-5.40) Hemoglobin 6.6 g/dL (12.0-15.5) Hematocrit 20.1 % (36.0-47.0) Mean Corpuscular Volume 104 fL (79-100) Mean Corpuscular Hemoglobin 34 pg (25-35) Mean Corpuscular Hemoglobin Concent 33 g/dL (31-37) Red Cell Distribution Width 22.3 % (11.5-14.5) Platelet Count 117 x10^3/uL (140-400) Neutrophils (%) (Auto) 61 % (31-73) Lymphocytes (%) (Auto) 19 % (24-48) Monocytes (%) (Auto) 16 % (0-9) Eosinophils (%) (Auto) 3 % (0-3) Basophils (%) (Auto) 1 % (0-3) Neutrophils # (Auto) 1.3 x10^3/uL (1.8-7.7) Lymphocytes # (Auto) 0.4 x10^3/uL (1.0-4.8) Monocytes # (Auto) 0.4 x10^3/uL (0.0-1.1) Eosinophils # (Auto) 0.1 x10^3/uL (0.0-0.7) Basophils # (Auto) 0.0 x10^3/uL (0.0-0.2) Sodium Level 134 mmol/L (136-145) Potassium Level 4.7 mmol/L (3.5-5.1) Chloride Level 97 mmol/L (98-107) Carbon Dioxide Level 29 mmol/L (21-32) Anion Gap 8 (6-14) Blood Urea Nitrogen 46 mg/dL (7-20) Creatinine 7.4 mg/dL (0.6-1.0) Estimated GFR (Cockcroft-Gault) 6.7 Glucose Level 102 mg/dL (70-99) Calcium Level 8.9 mg/dL (8.5-10.1) Phosphorus Level 5.2 mg/dL (2.6-4.7) Magnesium Level 2.1 mg/dL (1.8-2.4) Albumin 2.4 g/dL (3.4-5.0) Laboratory Tests Test 11/20/20 10:50 11/20/20 12:17 11/20/20 17:22 11/20/20 20:22 White Blood Count 2.2 x10^3/uL (4.0-11.0) Red Blood Count 2.10 x10^6/uL (3.50-5.40) Hemoglobin 7.2 g/dL (12.0-15.5) Hematocrit 22.0 % (36.0-47.0) Mean Corpuscular Volume 105 fL (79-100) Mean Corpuscular Hemoglobin 34 pg (25-35) Mean Corpuscular Hemoglobin Concent 33 g/dL (31-37) Red Cell Distribution Width 22.7 % (11.5-14.5) Platelet Count 117 x10^3/uL (140-400) Neutrophils (%) (Auto) 65 % (31-73) Lymphocytes (%) (Auto) 17 % (24-48) Monocytes (%) (Auto) 13 % (0-9) Eosinophils (%) (Auto) 4 % (0-3) Basophils (%) (Auto) 2 % (0-3) Neutrophils # (Auto) 1.5 x10^3/uL (1.8-7.7) Lymphocytes # (Auto) 0.4 x10^3/uL (1.0-4.8) Monocytes # (Auto) 0.3 x10^3/uL (0.0-1.1) Eosinophils # (Auto) 0.1 x10^3/uL (0.0-0.7) Basophils # (Auto) 0.0 x10^3/uL (0.0-0.2) Sodium Level 136 mmol/L (136-145) Potassium Level 4.1 mmol/L (3.5-5.1) Chloride Level 97 mmol/L (98-107) Carbon Dioxide Level 29 mmol/L (21-32) Anion Gap 10 (6-14) Blood Urea Nitrogen 41 mg/dL (7-20) Creatinine 6.9 mg/dL (0.6-1.0) Estimated GFR (Cockcroft-Gault) 7.2 Glucose Level 142 mg/dL (70-99) Calcium Level 8.8 mg/dL (8.5-10.1) Glucose (Fingerstick) 108 mg/dL (70-99) 138 mg/dL (70-99) 131 mg/dL (70-99) Test 11/21/20 06:50 11/21/20 07:04 White Blood Count 2.2 x10^3/uL (4.0-11.0) Red Blood Count 1.93 x10^6/uL (3.50-5.40) Hemoglobin 6.6 g/dL (12.0-15.5) Hematocrit 20.1 % (36.0-47.0) Mean Corpuscular Volume 104 fL (79-100) Mean Corpuscular Hemoglobin 34 pg (25-35) Mean Corpuscular Hemoglobin Concent 33 g/dL (31-37) Red Cell Distribution Width 22.3 % (11.5-14.5) Platelet Count 117 x10^3/uL (140-400) Neutrophils (%) (Auto) 61 % (31-73) Lymphocytes (%) (Auto) 19 % (24-48) Monocytes (%) (Auto) 16 % (0-9) Eosinophils (%) (Auto) 3 % (0-3) Basophils (%) (Auto) 1 % (0-3) Neutrophils # (Auto) 1.3 x10^3/uL (1.8-7.7) Lymphocytes # (Auto) 0.4 x10^3/uL (1.0-4.8) Monocytes # (Auto) 0.4 x10^3/uL (0.0-1.1) Eosinophils # (Auto) 0.1 x10^3/uL (0.0-0.7) Basophils # (Auto) 0.0 x10^3/uL (0.0-0.2) Sodium Level 134 mmol/L (136-145) Potassium Level 4.7 mmol/L (3.5-5.1) Chloride Level 97 mmol/L (98-107) Carbon Dioxide Level 29 mmol/L (21-32) Anion Gap 8 (6-14) Blood Urea Nitrogen 46 mg/dL (7-20) Creatinine 7.4 mg/dL (0.6-1.0) Estimated GFR (Cockcroft-Gault) 6.7 Glucose Level 102 mg/dL (70-99) Calcium Level 8.9 mg/dL (8.5-10.1) Phosphorus Level 5.2 mg/dL (2.6-4.7) Magnesium Level 2.1 mg/dL (1.8-2.4) Albumin 2.4 g/dL (3.4-5.0) Glucose (Fingerstick) 100 mg/dL (70-99) Medications Current Medications Morphine Sulfate (Morphine Sulfate) 4 mg 1X ONCE IV Last administered on 11/18/20at 12:31; Start 11/18/20 at 12:00; Stop 11/18/20 at 12:02; Status DC Dextrose (Dextrose 50%-Water Syringe) 25 gm 1X ONCE IV Last administered on 11/18/20at 13:07; Start 11/18/20 at 13:00; Stop 11/18/20 at 13:01; Status DC Insulin Human Regular (HumuLIN R VIAL) 10 unit 1X ONCE IV Last administered on 11/18/20at 13:08; Start 11/18/20 at 13:00; Stop 11/18/20 at 13:01; Status DC Sodium Bicarbonate (Sodium Bicarb Adult 8.4% Syr) 50 meq 1X ONCE IV Last administered on 11/18/20at 13:07; Start 11/18/20 at 13:00; Stop 11/18/20 at 13:01; Status DC Ondansetron HCl (Zofran) 4 mg PRN Q8HRS PRN IV NAUSEA/VOMITING; Start 11/18/20 at 13:15; Stop 11/19/20 at 13:14; Status DC Morphine Sulfate (Morphine Sulfate) 4 mg PRN Q2HR PRN IV PAIN Last administered on 11/19/20at 12:44; Start 11/18/20 at 13:15; Stop 11/19/20 at 13:14; Status DC Acetaminophen (Tylenol) 500 mg PRN Q6HRS PRN PO pain or fever; Start 11/18/20 at 18:00 Albuterol Sulfate (Ventolin Neb Soln) 2.5 mg PRN Q2HRS PRN NEB SOB / WHILE AWAKE; Start 11/18/20 at 18:00 Ferrous Sulfate (Feosol) 325 mg BIDWMEALS PO Last administered on 11/21/20at 08 :37; Start 11/19/20 at 08:00 Oxycodone/ Acetaminophen (Percocet 5/325) 1 tab QIDPRN PRN PO PAIN Last administered on 11/21/20at 08:38; Start 11/18/20 at 18:00 Pantoprazole Sodium (Protonix) 40 mg DAILYAC PO Last administered on 11/21/20at 08:37; Start 11/19/20 at 07:30 Sodium Chloride 1,000 ml @ 1,000 mls/hr Q1H PRN IV hypotension; Start 11/19/20 at 08:45; Stop 11/19/20 at 14:44; Status DC Albumin Human 200 ml @ 200 mls/hr 1X PRN PRN IV Hypotension; Start 11/19/20 at 08:45; Stop 11/19/20 at 14:44; Status DC Diphenhydramine HCl (Benadryl) 25 mg 1X PRN PRN IV ITCHING; Start 11/19/20 at 08:45; Stop 11/20/20 at 08:44; Status DC Diphenhydramine HCl (Benadryl) 25 mg 1X PRN PRN IV ITCHING; Start 11/19/20 at 08:45; Stop 11/20/20 at 08:44; Status DC Sodium Chloride 1,000 ml @ 400 mls/hr Q2H30M PRN IV PATENCY; Start 11/19/20 at 08:45; Stop 11/19/20 at 20:44; Status DC Info (PHARMACY MONITORING -- do not chart) 1 each PRN DAILY PRN MC SEE COMMENTS; Start 11/19/20 at 08:45 Diclofenac Sodium (Voltaren) 1 leonila BID TP Last administered on 11/21/20at 08:38; Start 11/19/20 at 12:00 Nystatin (Nystop) 1 leonila BID TP Last administered on 11/21/20at 08:39; Start 11/19/20 at 21:00 Magnesium Sulfate 50 ml @ 25 mls/hr PRN DAILY PRN IV for Mag < 1.7 on am labs; Start 11/20/20 at 08:45 Darbepoetin [place] (ARANESP for DIALYSIS PTS) 60 mcg Paul SQ Last administered on 11/20/20at 20:56; Start 11/20/20 at 21:00 Active Scripts Active Percocet 5-325 Mg Tablet (Oxycodone/Acetaminophen) 1 Each Tablet 1 Tab PO QIDPRN PRN MDD 4 Tablet(s) 2 Days Feosol (Ferrous Sulfate) 325 Mg Tablet 325 Mg PO BIDWMEALS 60 Days Proair Hfa (Albuterol Sulfate) 8.5 Gm Hfa.aer.ad 2.5 Mg NEB PRN Q2HRS PRN 30 Days Pantoprazole Sodium (Pantoprazole Sodium) 40 Mg Tablet.dr 40 Mg PO DAILYAC 30 Days Reported Carvedilol 25 Mg Tablet 25 Mg PO BIDWMEALS Folic Acid 0.4 Mg Tablet 0.4 Mg PO DAILY Acetaminophen 500 Mg Tablet 1 Tab PO PRN Q6HRS PRN 15 Days Vitals/I & O Vital Sign - Last 24 Hours 11/20/20 11/20/20 11/20/20 11/20/20 08:54 11:59 15:16 15:59 Temp 98.0 97.6 98.0 97.6 Pulse 79 80 Resp 18 18 B/P (MAP) 110/47 (68) 150/58 (88) Pulse Ox 99 100 O2 Delivery Room Air Room Air Room Air Room Air 11/20/20 11/20/20 11/20/20 11/20/20 16:30 19:00 20:45 20:55 Temp 98.2 98.2 Pulse 82 Resp 20 20 B/P (MAP) 135/52 (79) Pulse Ox 100 O2 Delivery Room Air Room Air Room Air Room Air 11/20/20 11/20/20 11/21/20 11/21/20 21:55 23:00 03:07 07:00 Temp 98.0 98.0 98.0 98.0 98.0 98.0 Pulse 82 79 79 Resp 20 18 20 18 B/P (MAP) 115/50 (71) 133/40 (71) 135/50 (78) Pulse Ox 99 99 98 O2 Delivery Room Air Room Air Room Air Room Air 11/21/20 08:38 O2 Delivery Room Air Intake and Output 11/20/20 11/20/20 11/21/20 15:00 23:00 07:00 Intake Total 1200 ml 240 ml Output Total 0 ml Balance 1200 ml 240 ml 0 ml Justicifation of Admission Dx: Justifications for Admission: Justification of Admission Dx: Yes Acute Renal Failure: Serum Cr > 4mg/dL Chronic Renal Failure: Hemodynamic Instability Sepsis: Infection ASHIA MOSS MD Nov 21, 2020 08:51
--- NOTE | 2020-11-21 09:32 | PDOC ---
PROGRESS NOTES Date of Service DATE: 11/21/20 TIME: 09:30 Subjective Subjective No new complaints. Objective Objective Vital Signs Date Time Temp Pulse Resp B/P (MAP) Pulse Ox O2 Delivery O2 Flow Rate FiO2 11/21/20 08:38 Room Air 11/21/20 07:00 98.0 79 18 135/50 (78) 98 98.0 Intake and Output 11/21/20 07:00 Intake Total 1440 ml Output Total 0 ml Balance 1440 ml Intake Oral 1440 ml Output Urine Total 0 ml # Bowel Movements 1 Physical Exam Physical Exam She is supine in bed and continues with painfully limited knee joint ROM and t enderness to palpation over knee joint line and bilateral trochanteric bursa area with mobility and self care limitations. She is not interested in steroid injections to her knees and hips. Assessment Assessment Problems Medical Problems: (1) Back pain Status: Acute (2) ESRD (end stage renal disease) on dialysis Status: Chronic (3) Knee pain, bilateral Status: Acute (4) Pelvic pain Status: Acute (5) Weakness Status: Acute Plan Plan of Care To SNF when medically stable or home with home health if she refuses to go to SNF. Comment Review of Relevant I have reviewed the following items tamika (where applicable) has been applied. Labs Laboratory Tests Test 11/19/20 11:50 11/19/20 17:21 11/19/20 20:21 11/20/20 08:37 Glucose (Fingerstick) 86 mg/dL (70-99) 131 mg/dL (70-99) 143 mg/dL (70-99) 137 mg/dL (70-99) Test 11/20/20 10:50 11/20/20 12:17 11/20/20 17:22 11/20/20 20:22 White Blood Count 2.2 x10^3/uL (4.0-11.0) Red Blood Count 2.10 x10^6/uL (3.50-5.40) Hemoglobin 7.2 g/dL (12.0-15.5) Hematocrit 22.0 % (36.0-47.0) Mean Corpuscular Volume 105 fL (79-100) Mean Corpuscular Hemoglobin 34 pg (25-35) Mean Corpuscular Hemoglobin Concent 33 g/dL (31-37) Red Cell Distribution Width 22.7 % (11.5-14.5) Platelet Count 117 x10^3/uL (140-400) Neutrophils (%) (Auto) 65 % (31-73) Lymphocytes (%) (Auto) 17 % (24-48) Monocytes (%) (Auto) 13 % (0-9) Eosinophils (%) (Auto) 4 % (0-3) Basophils (%) (Auto) 2 % (0-3) Neutrophils # (Auto) 1.5 x10^3/uL (1.8-7.7) Lymphocytes # (Auto) 0.4 x10^3/uL (1.0-4.8) Monocytes # (Auto) 0.3 x10^3/uL (0.0-1.1) Eosinophils # (Auto) 0.1 x10^3/uL (0.0-0.7) Basophils # (Auto) 0.0 x10^3/uL (0.0-0.2) Sodium Level 136 mmol/L (136-145) Potassium Level 4.1 mmol/L (3.5-5.1) Chloride Level 97 mmol/L (98-107) Carbon Dioxide Level 29 mmol/L (21-32) Anion Gap 10 (6-14) Blood Urea Nitrogen 41 mg/dL (7-20) Creatinine 6.9 mg/dL (0.6-1.0) Estimated GFR (Cockcroft-Gault) 7.2 Glucose Level 142 mg/dL (70-99) Calcium Level 8.8 mg/dL (8.5-10.1) Glucose (Fingerstick) 108 mg/dL (70-99) 138 mg/dL (70-99) 131 mg/dL (70-99) Test 11/21/20 06:50 11/21/20 07:04 White Blood Count 2.2 x10^3/uL (4.0-11.0) Red Blood Count 1.93 x10^6/uL (3.50-5.40) Hemoglobin 6.6 g/dL (12.0-15.5) Hematocrit 20.1 % (36.0-47.0) Mean Corpuscular Volume 104 fL (79-100) Mean Corpuscular Hemoglobin 34 pg (25-35) Mean Corpuscular Hemoglobin Concent 33 g/dL (31-37) Red Cell Distribution Width 22.3 % (11.5-14.5) Platelet Count 117 x10^3/uL (140-400) Neutrophils (%) (Auto) 61 % (31-73) Lymphocytes (%) (Auto) 19 % (24-48) Monocytes (%) (Auto) 16 % (0-9) Eosinophils (%) (Auto) 3 % (0-3) Basophils (%) (Auto) 1 % (0-3) Neutrophils # (Auto) 1.3 x10^3/uL (1.8-7.7) Lymphocytes # (Auto) 0.4 x10^3/uL (1.0-4.8) Monocytes # (Auto) 0.4 x10^3/uL (0.0-1.1) Eosinophils # (Auto) 0.1 x10^3/uL (0.0-0.7) Basophils # (Auto) 0.0 x10^3/uL (0.0-0.2) Sodium Level 134 mmol/L (136-145) Potassium Level 4.7 mmol/L (3.5-5.1) Chloride Level 97 mmol/L (98-107) Carbon Dioxide Level 29 mmol/L (21-32) Anion Gap 8 (6-14) Blood Urea Nitrogen 46 mg/dL (7-20) Creatinine 7.4 mg/dL (0.6-1.0) Estimated GFR (Cockcroft-Gault) 6.7 Glucose Level 102 mg/dL (70-99) Calcium Level 8.9 mg/dL (8.5-10.1) Phosphorus Level 5.2 mg/dL (2.6-4.7) Magnesium Level 2.1 mg/dL (1.8-2.4) Albumin 2.4 g/dL (3.4-5.0) Glucose (Fingerstick) 100 mg/dL (70-99) Laboratory Tests Test 11/20/20 10:50 11/20/20 12:17 11/20/20 17:22 11/20/20 20:22 White Blood Count 2.2 x10^3/uL (4.0-11.0) Red Blood Count 2.10 x10^6/uL (3.50-5.40) Hemoglobin 7.2 g/dL (12.0-15.5) Hematocrit 22.0 % (36.0-47.0) Mean Corpuscular Volume 105 fL (79-100) Mean Corpuscular Hemoglobin 34 pg (25-35) Mean Corpuscular Hemoglobin Concent 33 g/dL (31-37) Red Cell Distribution Width 22.7 % (11.5-14.5) Platelet Count 117 x10^3/uL (140-400) Neutrophils (%) (Auto) 65 % (31-73) Lymphocytes (%) (Auto) 17 % (24-48) Monocytes (%) (Auto) 13 % (0-9) Eosinophils (%) (Auto) 4 % (0-3) Basophils (%) (Auto) 2 % (0-3) Neutrophils # (Auto) 1.5 x10^3/uL (1.8-7.7) Lymphocytes # (Auto) 0.4 x10^3/uL (1.0-4.8) Monocytes # (Auto) 0.3 x10^3/uL (0.0-1.1) Eosinophils # (Auto) 0.1 x10^3/uL (0.0-0.7) Basophils # (Auto) 0.0 x10^3/uL (0.0-0.2) Sodium Level 136 mmol/L (136-145) Potassium Level 4.1 mmol/L (3.5-5.1) Chloride Level 97 mmol/L (98-107) Carbon Dioxide Level 29 mmol/L (21-32) Anion Gap 10 (6-14) Blood Urea Nitrogen 41 mg/dL (7-20) Creatinine 6.9 mg/dL (0.6-1.0) Estimated GFR (Cockcroft-Gault) 7.2 Glucose Level 142 mg/dL (70-99) Calcium Level 8.8 mg/dL (8.5-10.1) Glucose (Fingerstick) 108 mg/dL (70-99) 138 mg/dL (70-99) 131 mg/dL (70-99) Test 11/21/20 06:50 11/21/20 07:04 White Blood Count 2.2 x10^3/uL (4.0-11.0) Red Blood Count 1.93 x10^6/uL (3.50-5.40) Hemoglobin 6.6 g/dL (12.0-15.5) Hematocrit 20.1 % (36.0-47.0) Mean Corpuscular Volume 104 fL (79-100) Mean Corpuscular Hemoglobin 34 pg (25-35) Mean Corpuscular Hemoglobin Concent 33 g/dL (31-37) Red Cell Distribution Width 22.3 % (11.5-14.5) Platelet Count 117 x10^3/uL (140-400) Neutrophils (%) (Auto) 61 % (31-73) Lymphocytes (%) (Auto) 19 % (24-48) Monocytes (%) (Auto) 16 % (0-9) Eosinophils (%) (Auto) 3 % (0-3) Basophils (%) (Auto) 1 % (0-3) Neutrophils # (Auto) 1.3 x10^3/uL (1.8-7.7) Lymphocytes # (Auto) 0.4 x10^3/uL (1.0-4.8) Monocytes # (Auto) 0.4 x10^3/uL (0.0-1.1) Eosinophils # (Auto) 0.1 x10^3/uL (0.0-0.7) Basophils # (Auto) 0.0 x10^3/uL (0.0-0.2) Sodium Level 134 mmol/L (136-145) Potassium Level 4.7 mmol/L (3.5-5.1) Chloride Level 97 mmol/L (98-107) Carbon Dioxide Level 29 mmol/L (21-32) Anion Gap 8 (6-14) Blood Urea Nitrogen 46 mg/dL (7-20) Creatinine 7.4 mg/dL (0.6-1.0) Estimated GFR (Cockcroft-Gault) 6.7 Glucose Level 102 mg/dL (70-99) Calcium Level 8.9 mg/dL (8.5-10.1) Phosphorus Level 5.2 mg/dL (2.6-4.7) Magnesium Level 2.1 mg/dL (1.8-2.4) Albumin 2.4 g/dL (3.4-5.0) Glucose (Fingerstick) 100 mg/dL (70-99) Medications Current Medications Morphine Sulfate (Morphine Sulfate) 4 mg 1X ONCE IV Last administered on 11/18/20at 12:31; Start 11/18/20 at 12:00; Stop 11/18/20 at 12:02; Status DC Dextrose (Dextrose 50%-Water Syringe) 25 gm 1X ONCE IV Last administered on 11/18/20at 13:07; Start 11/18/20 at 13:00; Stop 11/18/20 at 13:01; Status DC Insulin Human Regular (HumuLIN R VIAL) 10 unit 1X ONCE IV Last administered on 11/18/20at 13:08; Start 11/18/20 at 13:00; Stop 11/18/20 at 13:01; Status DC Sodium Bicarbonate (Sodium Bicarb Adult 8.4% Syr) 50 meq 1X ONCE IV Last administered on 11/18/20at 13:07; Start 11/18/20 at 13:00; Stop 11/18/20 at 13:01; Status DC Ondansetron HCl (Zofran) 4 mg PRN Q8HRS PRN IV NAUSEA/VOMITING; Start 11/18/20 at 13:15; Stop 11/19/20 at 13:14; Status DC Morphine Sulfate (Morphine Sulfate) 4 mg PRN Q2HR PRN IV PAIN Last administered on 11/19/20at 12:44; Start 11/18/20 at 13:15; Stop 11/19/20 at 13:14; Status DC Acetaminophen (Tylenol) 500 mg PRN Q6HRS PRN PO pain or fever; Start 11/18/20 at 18:00 Albuterol Sulfate (Ventolin Neb Soln) 2.5 mg PRN Q2HRS PRN NEB SOB / WHILE AWAKE; Start 11/18/20 at 18:00 Ferrous Sulfate (Feosol) 325 mg BIDWMEALS PO Last administered on 11/21/20at 08:37; Start 11/19/20 at 08:00 Oxycodone/ Acetaminophen (Percocet 5/325) 1 tab QIDPRN PRN PO PAIN Last administered on 11/21/20at 08:38; Start 11/18/20 at 18:00 Pantoprazole Sodium (Protonix) 40 mg DAILYAC PO Last administered on 11/21/20at 08:37; Start 11/19/20 at 07:30 Sodium Chloride 1,000 ml @ 1,000 mls/hr Q1H PRN IV hypotension; Start 11/19/20 at 08:45; Stop 11/19/20 at 14:44; Status DC Albumin Human 200 ml @ 200 mls/hr 1X PRN PRN IV Hypotension; Start 11/19/20 at 08:45; Stop 11/19/20 at 14:44; Status DC Diphenhydramine HCl (Benadryl) 25 mg 1X PRN PRN IV ITCHING; Start 11/19/20 at 08:45; Stop 11/20/20 at 08:44; Status DC Diphenhydramine HCl (Benadryl) 25 mg 1X PRN PRN IV ITCHING; Start 11/19/20 at 08:45; Stop 11/20/20 at 08:44; Status DC Sodium Chloride 1,000 ml @ 400 mls/hr Q2H30M PRN IV PATENCY; Start 11/19/20 at 08:45; Stop 11/19/20 at 20:44; Status DC Info (PHARMACY MONITORING -- do not chart) 1 each PRN DAILY PRN MC SEE COMMENTS; Start 11/19/20 at 08:45 Diclofenac Sodium (Voltaren) 1 leonila BID TP Last administered on 11/21/20at 08:38; Start 11/19/20 at 12:00 Nystatin (Nystop) 1 leonila BID TP Last administered on 11/21/20at 08:39; Start 11/19/20 at 21:00 Magnesium Sulfate 50 ml @ 25 mls/hr PRN DAILY PRN IV for Mag < 1.7 on am labs; Start 11/20/20 at 08:45 Darbepoetin Bolivar (ARANESP for DIALYSIS PTS) 60 mcg Paul SQ Last administered on 11/20/20at 20:56; Start 11/20/20 at 21:00 Active Scripts Active Percocet 5-325 Mg Tablet (Oxycodone/Acetaminophen) 1 Each Tablet 1 Tab PO QIDPRN PRN MDD 4 Tablet(s) 2 Days Feosol (Ferrous Sulfate) 325 Mg Tablet 325 Mg PO BIDWMEALS 60 Days Proair Hfa (Albuterol Sulfate) 8.5 Gm Hfa.aer.ad 2.5 Mg NEB PRN Q2HRS PRN 30 Days Pantoprazole Sodium (Pantoprazole Sodium) 40 Mg Tablet.dr 40 Mg PO DAILYAC 30 Days Reported Carvedilol 25 Mg Tablet 25 Mg PO BIDWMEALS Folic Acid 0.4 Mg Tablet 0.4 Mg PO DAILY Acetaminophen 500 Mg Tablet 1 Tab PO PRN Q6HRS PRN 15 Days Vitals/I & O Vital Sign - Last 24 Hours 11/20/20 11/20/20 11/20/20 11/20/20 11:59 15:16 15:59 16:30 Temp 98.0 97.6 98.0 97.6 Pulse 79 80 Resp 18 18 B/P (MAP) 110/47 (68) 150/58 (88) Pulse Ox 99 100 O2 Delivery Room Air Room Air Room Air Room Air 11/20/20 11/20/20 11/20/20 11/20/20 19:00 20:45 20:55 21:55 Temp 98.2 98.2 Pulse 82 Resp 20 20 20 B/P (MAP) 135/52 (79) Pulse Ox 100 O2 Delivery Room Air Room Air Room Air Room Air 11/20/20 11/21/20 11/21/20 11/21/20 23:00 03:07 07:00 08:38 Temp 98.0 98.0 98.0 98.0 98.0 98.0 Pulse 82 79 79 Resp 18 20 18 B/P (MAP) 115/50 (71) 133/40 (71) 135/50 (78) Pulse Ox 99 99 98 O2 Delivery Room Air Room Air Room Air Room Air Intake and Output 11/20/20 11/20/20 11/21/20 15:00 23:00 07:00 Intake Total 1200 ml 240 ml Output Total 0 ml Balance 1200 ml 240 ml 0 ml Justifications for Admission Other Justification Hyperkalemia, hemodialysis SUSY ESTRELLA MD Nov 21, 2020 09:32
--- NOTE | 2020-11-21 10:05 | PDOC3 ---
Discharge Summary Date of Admission: Nov 18, 2020 Date of Discharge: Nov 21, 2020 Follow-Up: 1-2 days Admitting Diagnosis comment: hospital summary, [facility] date of admit 11-16-20 date of discharge 11-21-20 consults nephrology for dialysis, DR ESTRELLA, EXTERNAL RELATIONS DIRECTOR COMPLICATION NONE FOLLOW UP DR SHULTZ TOMORROW, DIALYSIS d/c plan to home with home health 11-21, transfused today ONE UNIT PRBC'S admitted with back pain, knee pain, pelvic pain after a fall consult Dr. Estrella from physiatry, he has seen her before for OA and knee pain OK TO D/C WITH HOME HEALTH 11-21 ESRD, fluid overload, hyperkalemia, needs HD, missed HD anemia, chronic with symptomatic features weakenss and debility high fall risk, pt/ot poor compliance this makes 13 hospitalizations in the past 12 months. admit morbid obesity, weight loss education provided ANEMIA, TRANSFUSED TODAY ONE UNIT 11/21 D/C PLANNING 36 MIN History of Present Illness History of Present Illness Ms. Fernandez is a 65 year old female who was brought here by EMS from home due to knee pain, pelvic pain after she fell in the bathroom yesterday. She seems to have many admits for similar problems;. I saw her after the ER and she was comfortable and lethargic with pain meds on and wanted to rest. Patient denies any head or neck injury. Patient says she had chronic low back pain, and this is much worse after the fall yesterday and she was unable to make it to HD due to pain. . Patient denies any bowel or bladder incontinence. Patient has a long history end-stage renal failure, and Dr. Shultz is her renal docotr. movement makes her pain worse, pain was 7.10 11/19: Patient seen and evaluated. She refused PT today. Discussed with patient that our goal is to try to get her stronger to where she is able to ambulate with a walker at home. Told patient she needs to participate with PT tomorrow and patient understood. Discussed with Dr. Estrella Will provide patient a walker at time of discharge. Plan is for SNF, barring PT eval and recommendations. 11/20: Patient seen and evaluated. Morning labs pending. Discussed with patient about participating with physical therapy today. Plan is still for SNF next week once PT has provided their assessment and evaluation. Vitals Vitals Vital Signs Date Time Temp Pulse Resp B/P (MAP) Pulse Ox O2 Delivery O2 Flow Rate FiO2 11/21/20 08:38 Room Air 11/21/20 07:00 98.0 79 18 135/50 (78) 98 98.0 Physical Exam General: Alert, Oriented X3, Cooperative, No acute distress, Other Heart: Regular rate Lungs: Clear Abdomen: Soft, No tenderness Extremities: No clubbing, No cyanosis, No edema Skin: No rashes, No significant lesion FINAL DIAGNOSIS Problems Medical Problems: (1) Back pain Status: Acute (2) ESRD (end stage renal disease) on dialysis Status: Chronic (3) Knee pain, bilateral Status: Acute (4) Pelvic pain Status: Acute (5) Weakness Status: Acute Brief Hospital Course Ms. Fernandez is a 65 old [sex] who presented with [HYPERKALEMIA, NONCOMPLIANCE ] CONDITION AT DISCHARGE: Improved Discharge Medications Current Medications Morphine Sulfate (Morphine Sulfate) 4 mg 1X ONCE IV Last administered on 11/18/20at 12:31; Start 11/18/20 at 12:00; Stop 11/18/20 at 12:02; Status DC Dextrose (Dextrose 50%-Water Syringe) 25 gm 1X ONCE IV Last administered on 11/18/20at 13:07; Start 11/18/20 at 13:00; Stop 11/18/20 at 13:01; Status DC Insulin Human Regular (HumuLIN R VIAL) 10 unit 1X ONCE IV Last administered on 11/18/20at 13:08; Start 11/18/20 at 13:00; Stop 11/18/20 at 13:01; Status DC Sodium Bicarbonate (Sodium Bicarb Adult 8.4% Syr) 50 meq 1X ONCE IV Last administered on 11/18/20at 13:07; Start 11/18/20 at 13:00; Stop 11/18/20 at 13:01; Status DC Ondansetron HCl (Zofran) 4 mg PRN Q8HRS PRN IV NAUSEA/VOMITING; Start 11/18/20 at 13:15; Stop 11/19/20 at 13:14; Status DC Morphine Sulfate (Morphine Sulfate) 4 mg PRN Q2HR PRN IV PAIN Last administered on 11/19/20at 12:44; Start 11/18/20 at 13:15; Stop 11/19/20 at 13:14; Status DC Acetaminophen (Tylenol) 500 mg PRN Q6HRS PRN PO pain or fever; Start 11/18/20 at 18:00 Albuterol Sulfate (Ventolin Neb Soln) 2.5 mg PRN Q2HRS PRN NEB SOB / WHILE AWAKE; Start 11/18/20 at 18:00 Ferrous Sulfate (Feosol) 325 mg BIDWMEALS PO Last administered on 11/21/20at 08:37; Start 11/19/20 at 08:00 Oxycodone/ Acetaminophen (Percocet 5/325) 1 tab QIDPRN PRN PO PAIN Last admini stered on 11/21/20at 08:38; Start 11/18/20 at 18:00 Pantoprazole Sodium (Protonix) 40 mg DAILYAC PO Last administered on 11/21/20at 08:37; Start 11/19/20 at 07:30 Sodium Chloride 1,000 ml @ 1,000 mls/hr Q1H PRN IV hypotension; Start 11/19/20 at 08:45; Stop 11/19/20 at 14:44; Status DC Albumin Human 200 ml @ 200 mls/hr 1X PRN PRN IV Hypotension; Start 11/19/20 at 08:45; Stop 11/19/20 at 14:44; Status DC Diphenhydramine HCl (Benadryl) 25 mg 1X PRN PRN IV ITCHING; Start 11/19/20 at 08:45; Stop 11/20/20 at 08:44; Status DC Diphenhydramine HCl (Benadryl) 25 mg 1X PRN PRN IV ITCHING; Start 11/19/20 at 08:45; Stop 11/20/20 at 08:44; Status DC Sodium Chloride 1,000 ml @ 400 mls/hr Q2H30M PRN IV PATENCY; Start 11/19/20 at 08:45; Stop 11/19/20 at 20:44; Status DC Info (PHARMACY MONITORING -- do not chart) 1 each PRN DAILY PRN MC SEE COMMENTS; Start 11/19/20 at 08:45 Diclofenac Sodium (Voltaren) 1 leonila BID TP Last administered on 11/21/20at 08:38; Start 11/19/20 at 12:00 Nystatin (Nystop) 1 leonila BID TP Last administered on 11/21/20at 08:39; Start 11/19/20 at 21:00 Magnesium Sulfate 50 ml @ 25 mls/hr PRN DAILY PRN IV for Mag < 1.7 on am labs; Start 11/20/20 at 08:45 Darbepoetin Bolivar (ARANESP for DIALYSIS PTS) 60 mcg Paul SQ Last administered on 11/20/20at 20:56; Start 11/20/20 at 21:00 Active Scripts Active Percocet 5-325 Mg Tablet (Oxycodone/Acetaminophen) 1 Each Tablet 1 Tab PO QIDPRN PRN MDD 4 Tablet(s) 2 Days Feosol (Ferrous Sulfate) 325 Mg Tablet 325 Mg PO BIDWMEALS 60 Days Proair Hfa (Albuterol Sulfate) 8.5 Gm Hfa.aer.ad 2.5 Mg NEB PRN Q2HRS PRN 30 Days Pantoprazole Sodium (Pantoprazole Sodium) 40 Mg Tablet.dr 40 Mg PO DAILYAC 30 Days Reported Carvedilol 25 Mg Tablet 25 Mg PO BIDWMEALS Folic Acid 0.4 Mg Tablet 0.4 Mg PO DAILY Acetaminophen 500 Mg Tablet 1 Tab PO PRN Q6HRS PRN 15 Days Vital Signs Vital Signs Date Time Temp Pulse Resp B/P (MAP) Pulse Ox O2 Delivery O2 Flow Rate FiO2 11/21/20 08:38 Room Air 11/21/20 07:00 98.0 79 18 135/50 (78) 98 98.0 Labs Laboratory Tests Test 11/19/20 11:50 11/19/20 17:21 11/19/20 20:21 11/20/20 08:37 Glucose (Fingerstick) 86 mg/dL (70-99) 131 mg/dL (70-99) 143 mg/dL (70-99) 137 mg/dL (70-99) Test 11/20/20 10:50 11/20/20 12:17 11/20/20 17:22 11/20/20 20:22 White Blood Count 2.2 x10^3/uL (4.0-11.0) Red Blood Count 2.10 x10^6/uL (3.50-5.40) Hemoglobin 7.2 g/dL (12.0-15.5) Hematocrit 22.0 % (36.0-47.0) Mean Corpuscular Volume 105 fL (79-100) Mean Corpuscular Hemoglobin 34 pg (25-35) Mean Corpuscular Hemoglobin Concent 33 g/dL (31-37) Red Cell Distribution Width 22.7 % (11.5-14.5) Platelet Count 117 x10^3/uL (140-400) Neutrophils (%) (Auto) 65 % (31-73) Lymphocytes (%) (Auto) 17 % (24-48) Monocytes (%) (Auto) 13 % (0-9) Eosinophils (%) (Auto) 4 % (0-3) Basophils (%) (Auto) 2 % (0-3) Neutrophils # (Auto) 1.5 x10^3/uL (1.8-7.7) Lymphocytes # (Auto) 0.4 x10^3/uL (1.0-4.8) Monocytes # (Auto) 0.3 x10^3/uL (0.0-1.1) Eosinophils # (Auto) 0.1 x10^3/uL (0.0-0.7) Basophils # (Auto) 0.0 x10^3/uL (0.0-0.2) Sodium Level 136 mmol/L (136-145) Potassium Level 4.1 mmol/L (3.5-5.1) Chloride Level 97 mmol/L (98-107) Carbon Dioxide Level 29 mmol/L (21-32) Anion Gap 10 (6-14) Blood Urea Nitrogen 41 mg/dL (7-20) Creatinine 6.9 mg/dL (0.6-1.0) Estimated GFR (Cockcroft-Gault) 7.2 Glucose Level 142 mg/dL (70-99) Calcium Level 8.8 mg/dL (8.5-10.1) Glucose (Fingerstick) 108 mg/dL (70-99) 138 mg/dL (70-99) 131 mg/dL (70-99) Test 11/21/20 06:50 11/21/20 07:04 White Blood Count 2.2 x10^3/uL (4.0-11.0) Red Blood Count 1.93 x10^6/uL (3.50-5.40) Hemoglobin 6.6 g/dL (12.0-15.5) Hematocrit 20.1 % (36.0-47.0) Mean Corpuscular Volume 104 fL (79-100) Mean Corpuscular Hemoglobin 34 pg (25-35) Mean Corpuscular Hemoglobin Concent 33 g/dL (31-37) Red Cell Distribution Width 22.3 % (11.5-14.5) Platelet Count 117 x10^3/uL (140-400) Neutrophils (%) (Auto) 61 % (31-73) Lymphocytes (%) (Auto) 19 % (24-48) Monocytes (%) (Auto) 16 % (0-9) Eosinophils (%) (Auto) 3 % (0-3) Basophils (%) (Auto) 1 % (0-3) Neutrophils # (Auto) 1.3 x10^3/uL (1.8-7.7) Lymphocytes # (Auto) 0.4 x10^3/uL (1.0-4.8) Monocytes # (Auto) 0.4 x10^3/uL (0.0-1.1) Eosinophils # (Auto) 0.1 x10^3/uL (0.0-0.7) Basophils # (Auto) 0.0 x10^3/uL (0.0-0.2) Sodium Level 134 mmol/L (136-145) Potassium Level 4.7 mmol/L (3.5-5.1) Chloride Level 97 mmol/L (98-107) Carbon Dioxide Level 29 mmol/L (21-32) Anion Gap 8 (6-14) Blood Urea Nitrogen 46 mg/dL (7-20) Creatinine 7.4 mg/dL (0.6-1.0) Estimated GFR (Cockcroft-Gault) 6.7 Glucose Level 102 mg/dL (70-99) Calcium Level 8.9 mg/dL (8.5-10.1) Phosphorus Level 5.2 mg/dL (2.6-4.7) Magnesium Level 2.1 mg/dL (1.8-2.4) Albumin 2.4 g/dL (3.4-5.0) Glucose (Fingerstick) 100 mg/dL (70-99) Laboratory Tests Test 11/20/20 10:50 11/20/20 12:17 11/20/20 17:22 11/20/20 20:22 White Blood Count 2.2 x10^3/uL (4.0-11.0) Red Blood Count 2.10 x10^6/uL (3.50-5.40) Hemoglobin 7.2 g/dL (12.0-15.5) Hematocrit 22.0 % (36.0-47.0) Mean Corpuscular Volume 105 fL (79-100) Mean Corpuscular Hemoglobin 34 pg (25-35) Mean Corpuscular Hemoglobin Concent 33 g/dL (31-37) Red Cell Distribution Width 22.7 % (11.5-14.5) Platelet Count 117 x10^3/uL (140-400) Neutrophils (%) (Auto) 65 % (31-73) Lymphocytes (%) (Auto) 17 % (24-48) Monocytes (%) (Auto) 13 % (0-9) Eosinophils (%) (Auto) 4 % (0-3) Basophils (%) (Auto) 2 % (0-3) Neutrophils # (Auto) 1.5 x10^3/uL (1.8-7.7) Lymphocytes # (Auto) 0.4 x10^3/uL (1.0-4.8) Monocytes # (Auto) 0.3 x10^3/uL (0.0-1.1) Eosinophils # (Auto) 0.1 x10^3/uL (0.0-0.7) Basophils # (Auto) 0.0 x10^3/uL (0.0-0.2) Sodium Level 136 mmol/L (136-145) Potassium Level 4.1 mmol/L (3.5-5.1) Chloride Level 97 mmol/L (98-107) Carbon Dioxide Level 29 mmol/L (21-32) Anion Gap 10 (6-14) Blood Urea Nitrogen 41 mg/dL (7-20) Creatinine 6.9 mg/dL (0.6-1.0) Estimated GFR (Cockcroft-Gault) 7.2 Glucose Level 142 mg/dL (70-99) Calcium Level 8.8 mg/dL (8.5-10.1) Glucose (Fingerstick) 108 mg/dL (70-99) 138 mg/dL (70-99) 131 mg/dL (70-99) Test 11/21/20 06:50 11/21/20 07:04 White Blood Count 2.2 x10^3/uL (4.0-11.0) Red Blood Count 1.93 x10^6/uL (3.50-5.40) Hemoglobin 6.6 g/dL (12.0-15.5) Hematocrit 20.1 % (36.0-47.0) Mean Corpuscular Volume 104 fL (79-100) Mean Corpuscular Hemoglobin 34 pg (25-35) Mean Corpuscular Hemoglobin Concent 33 g/dL (31-37) Red Cell Distribution Width 22.3 % (11.5-14.5) Platelet Count 117 x10^3/uL (140-400) Neutrophils (%) (Auto) 61 % (31-73) Lymphocytes (%) (Auto) 19 % (24-48) Monocytes (%) (Auto) 16 % (0-9) Eosinophils (%) (Auto) 3 % (0-3) Basophils (%) (Auto) 1 % (0-3) Neutrophils # (Auto) 1.3 x10^3/uL (1.8-7.7) Lymphocytes # (Auto) 0.4 x10^3/uL (1.0-4.8) Monocytes # (Auto) 0.4 x10^3/uL (0.0-1.1) Eosinophils # (Auto) 0.1 x10^3/uL (0.0-0.7) Basophils # (Auto) 0.0 x10^3/uL (0.0-0.2) Sodium Level 134 mmol/L (136-145) Potassium Level 4.7 mmol/L (3.5-5.1) Chloride Level 97 mmol/L (98-107) Carbon Dioxide Level 29 mmol/L (21-32) Anion Gap 8 (6-14) Blood Urea Nitrogen 46 mg/dL (7-20) Creatinine 7.4 mg/dL (0.6-1.0) Estimated GFR (Cockcroft-Gault) 6.7 Glucose Level 102 mg/dL (70-99) Calcium Level 8.9 mg/dL (8.5-10.1) Phosphorus Level 5.2 mg/dL (2.6-4.7) Magnesium Level 2.1 mg/dL (1.8-2.4) Albumin 2.4 g/dL (3.4-5.0) Glucose (Fingerstick) 100 mg/dL (70-99) Allergies Allergies Coded Allergies Type Severity Reaction Last Updated Verified No Known Drug Allergies 10/11/20 No Disposition/Orders: D/C to Home w/ HH Justicifation of Admission Dx: Justifications for Admission: Justification of Admission Dx: Yes Acute Renal Failure: Serum Cr > 4mg/dL Chronic Renal Failure: Hemodynamic Instability Sepsis: Infection ASHIA MOSS MD Nov 21, 2020 10:05
[2020-11-21] MEDS ORDERED: Diclofenac Sodium TP (10:07)
[2020-11-21] MEDS ORDERED: NYST15PO2 TP (10:07)
--- NOTE | 2020-11-21 10:08 | SNU/HH DC ---
DISCHARGE WITH HOME HEALTH DISCHARGE INFORMATION: Final Diagnosis: Problems Medical Problems: (1) Back pain Status: Acute (2) ESRD (end stage renal disease) on dialysis Status: Chronic (3) Knee pain, bilateral Status: Acute (4) Pelvic pain Status: Acute (5) Weakness Status: Acute Condition on Discharge: Stable CODE STATUS: Code Status: Full HOME HEALTH: Face to Face: I certify this patient is under my care and that I, or a nurse practitioner or physician's executive chef assistant working with me, had a face to face encounter that meets the physician face to face encounter requirements with this patient on []. Medical Complications: Falls, Other (ESRD) RN For Eval/Treatment: Yes Physical Therapy For: Evalulation/Treatment Occupational Therapy For: Evaluation/Treatment Speech Language Pathology For: Evaluation/Treatment Home Health Aide For: Self-care [employer] E[employer]ERN ARCHAEOLOGY LECTURER For: Community Resources Pt Meets Homebound Status: Fatigue w/ amb., Frequent falls w/ injury, Limited distance walking, Poor cognition POST DISCHARGE ORDERS: Activity Instructions for Disc: No restrictions, Resume previous activity, Activity as tolerated Weight Bearing Status after Di: No restrictions, Full weight bearing, As tolerated DIET AFTER DISCHARGE: Renal Wound/Incision Care: No wound care needed CHECKS AFTER DISCHARGE: Checks after discharge: Check blood press - daily, Check blood sugar, ac/hs, Check your Temp as needed, Weigh Yourself Daily FOLLOW-UP: PCP to follow Home Health: PCP 1 WEEK TREATMENT/EQUIPMENT ORDERS: Adaptive Equipment Issued: None, Front wheeled walker CERTIFICATION STATEMENT: Certification Statement: Certification Statement: Based on the above finding, I certify that this patient is confined to the home and needs intermittent care home care, physical t herapy and/or speech therapy, or continues to need occupational therapy.~ This patient is under my care, and I have initiated the establishment of the plan of care.~ This patient will be followed by myself or a community physician who will periodically review the plan of care. Home Meds Active Scripts Nystatin (NYAMYC) 15 Gm Powder, 1 DAWNA TP BID for RASH for 14 Days, #30 MISC Prov:ASHIA MOSS MD 11/21/20 [Diclofenac Sodium 1% Topical] 100 GM GEL..GRAM. No Conflict Check, 1 DAWNA TP BID for TOPICAL PAIN for 14 Days, #28 EACH Prov:ASHIA MOSS MD 11/21/20 Oxycodone/Apap 5-325 (PERCOCET 5-325 MG TABLET ) 1 Each Tablet, 1 TAB PO QIDPRN PRN for PAIN MDD 4 Tablet(s) for 2 Days, #6 TAB 0 Refills Prov:CORY HARPER DO 10/29/20 Ferrous Sulfate (FEOSOL) 325 Mg Tablet, 325 MG PO BIDWMEALS for anemia for 60 Days, #120 TAB Prov:BERNARDO NG MD 03/08/20 Albuterol Sulfate (Proair Hfa) 8.5 Gm Hfa.aer.ad, 2.5 MG NEB PRN Q2HRS PRN for SOB / WHILE AWAKE for 30 Days, #30 INHALER Prov:ASHIA MOSS MD 09/27/19 Pantoprazole Sodium (PANTOPRAZOLE SODIUM ) 40 Mg Tablet.dr, 40 MG PO DAILYAC for Bleeding ulcer for 30 Days, #30 TAB.SR 5 Refills Prov:MELY OLVERA MD 07/04/19 Reported Medications Carvedilol (CARVEDILOL) 25 Mg Tablet, 25 MG PO BIDWMEALS for CARDIAC, TAB 03/05/20 Folic Acid (FOLIC ACID) 0.4 Mg Tablet, 0.4 MG PO DAILY for supplement, TAB 03/05/20 Acetaminophen (ACETAMINOPHEN) 500 Mg Tablet, 1 TAB PO PRN Q6HRS PRN for pain or fever for 15 Days, #60 TAB 0 Refills 12/30/19 Discontinued Reported Medications Hydrocodone Bit/Acetaminophen (HYDROCODONE-APAP 10-325 ) 1 Tab Tablet, 1 TAB PO PRN Q6HRS PRN for PAIN, TAB 0 Refills 07/14/20 ASHIA MOSS MD Nov 21, 2020 10:08
--- NOTE | 2020-11-21 10:14 | NUR ---
ANITA following. Discussed with RN, pt from home, room air, renal diet. PT/OT recommending SNU. ANITA met with pt (no isolation precautions at the time). Pt does not want to go to SNU, wants to go home. ANITA discussed home health - pt declined, stating her sister comes 5 days a week. ANITA consult from Dr. Spencer for wheelchair and walker for pt, no scripts on chart. Physician documentation will have to reflect the reason pt needs a new walker, and a wheelchair. RN notified. Pt getting blood today. ANITA will continue to follow. Addendum: 11/21/20 at 1438 by PATRIC HOWARD SW verified with [facility] RE wheelchair. [facility] has wheelchairs. ANITA faxed wheelchair, and walker referral to [facility]. Discharge order for home with home health. Pt declined home health. RN notified. If pt qualifies for wheelchair and/or walker, [facility] will deliver to the home.
--- NOTE | 2020-11-21 12:40 | PDOC ---
Renal-Progress Notes Subjective Notes Notes NO COMPLAINTS VOICED History of Present Illness Hx of present illness STABLE Vitals Vitals Vital Signs Date Time Temp Pulse Resp B/P (MAP) Pulse Ox O2 Delivery O2 Flow Rate FiO2 11/21/20 11:00 98.1 81 18 119/51 (73) 99 Room Air 98.1 Weight Weight [ ] I.O. Intake and Output Intake and Output 11/21/20 07:00 Intake Total 1440 ml Output Total 0 ml Balance 1440 ml Intake Oral 1440 ml Output Urine Total 0 ml # Bowel Movements 1 Labs Labs Laboratory Tests Test 11/20/20 17:22 11/20/20 20:22 11/21/20 06:50 11/21/20 07:04 Glucose (Fingerstick) 138 mg/dL (70-99) 131 mg/dL (70-99) 100 mg/dL (70-99) White Blood Count 2.2 x10^3/uL (4.0-11.0) Red Blood Count 1.93 x10^6/uL (3.50-5.40) Hemoglobin 6.6 g/dL (12.0-15.5) Hematocrit 20.1 % (36.0-47.0) Mean Corpuscular Volume 104 fL (79-100) Mean Corpuscular Hemoglobin 34 pg (25-35) Mean Corpuscular Hemoglobin Concent 33 g/dL (31-37) Red Cell Distribution Width 22.3 % (11.5-14.5) Platelet Count 117 x10^3/uL (140-400) Neutrophils (%) (Auto) 61 % (31-73) Lymphocytes (%) (Auto) 19 % (24-48) Monocytes (%) (Auto) 16 % (0-9) Eosinophils (%) (Auto) 3 % (0-3) Basophils (%) (Auto) 1 % (0-3) Neutrophils # (Auto) 1.3 x10^3/uL (1.8-7.7) Lymphocytes # (Auto) 0.4 x10^3/uL (1.0-4.8) Monocytes # (Auto) 0.4 x10^3/uL (0.0-1.1) Eosinophils # (Auto) 0.1 x10^3/uL (0.0-0.7) Basophils # (Auto) 0.0 x10^3/uL (0.0-0.2) Sodium Level 134 mmol/L (136-145) Potassium Level 4.7 mmol/L (3.5-5.1) Chloride Level 97 mmol/L (98-107) Carbon Dioxide Level 29 mmol/L (21-32) Anion Gap 8 (6-14) Blood Urea Nitrogen 46 mg/dL (7-20) Creatinine 7.4 mg/dL (0.6-1.0) Estimated GFR (Cockcroft-Gault) 6.7 Glucose Level 102 mg/dL (70-99) Calcium Level 8.9 mg/dL (8.5-10.1) Phosphorus Level 5.2 mg/dL (2.6-4.7) Magnesium Level 2.1 mg/dL (1.8-2.4) Albumin 2.4 g/dL (3.4-5.0) Test 11/21/20 11:37 Glucose (Fingerstick) 131 mg/dL (70-99) Review of Systems Constitutional: yes: weakness, alert, oriented Ears/Nose/Throat: Yes: no symptom reported Eyes: Yes: no symptom reported Pulmonary: Yes no symptom reported Cardiovascular: Yes no symptom reported Gastrointestional: Yes: no symptom reported Genitourinary: Yes: no symptom reported Musculoskeletal: Yes: no symptom reported Skin: Yes no symptom reported Psychiatric/Neurological: Yes: no symptom reported Physical Exam General Appearance: no apparent distress, febrile Heart: S1S2 Abdomen: soft, bowel sounds present Genitourinary: bladder flat Extremities: pulses present, atrophy Neurology: alert Assessment Assessment IMP ESRD ANEMIA DM II HTN NON COMPLIANCE PLAN HD TOMORROW PRBC TODAY D/C PLANS NOTED ENC COMPLIANCE HAS RECEIVED LINNEA SAVAGE MD Nov 21, 2020 12:40
--- NOTE | 2020-11-21 18:35 | NUR ---
Patient stated " I can't leave. I feel too weak and exhausted. I need to stay the night. I cannot get up and move to leave. I am so tired. " consumer experience consultant paged. Will review tomorrow.
[2020-11-22 03:00] VITALS: BP 146/61
--- NOTE | 2020-11-22 06:54 | PDOC ---
PROGRESS NOTES Date of Service: DATE: 11/22/20 TIME: 06:53 Chief Complaint Chief Complaint -hospital summary, [facility] date of admit 11-16-20 date of discharge 11-21-20 consults nephrology for dialysis, DR ESTRELLA, SERVICE SUPPORT REPRESENTATIVE COMPLICATION NONE FOLLOW UP DR SHULTZ TOMORROW, DIALYSIS d/c plan to home with home health 11-21, transfused today 11-22 PATIENT REFUSED TO GO HOME YEATERDAY, AGREES WITH D/C TODAY admitted with back pain, knee pain, pelvic pain after a fall consult Dr. Estrella from physiatry, he has seen her before for OA and knee pain OK TO D/C WITH HOME HEALTH 11-21 ESRD, fluid overload, hyperkalemia, needs HD, missed HD anemia, chronic with symptomatic features weakenss and debility high fall risk, pt/ot poor compliance this makes 13 hospitalizations in the past 12 months. admit morbid obesity, weight loss education provided ANEMIA, TRANSFUSED TODAY ONE UNIT 11/21 D/C PLANNING 36 MIN History of Present Illness History of Present Illness Ms. Fernandez is a 65 year old female who was brought here by EMS from home due to knee pain, pelvic pain after she fell in the bathroom yesterday. She seems to have many admits for similar problems;. I saw her after the ER and she was comfortable and lethargic with pain meds on and wanted to rest. Patient denies any head or neck injury. Patient says she had chronic low back pain, and this is much worse after the fall yesterday and she was unable to make it to HD due to pain. . Patient denies any bowel or bladder incontinence. Patient has a long history end-stage renal failure, and Dr. Shultz is her renal docotr. movement makes her pain worse, pain was 7.10 11/19: Patient seen and evaluated. She refused PT today. Discussed with patient that our goal is to try to get her stronger to where she is able to ambulate with a walker at home. Told patient she needs to participate with PT tomorrow and patient understood. Discussed with Dr. Estrella Will provide patient a walker at time of discharge. Plan is for SNF, barring PT eval and recommendations. 11/20: Patient seen and evaluated. Morning labs pending. Discussed with patient about participating with physical therapy today. Plan is still for SNF next week once PT has provided their assessment and evaluation. Vitals Vitals Vital Signs Date Time Temp Pulse Resp B/P (MAP) Pulse Ox O2 Delivery O2 Flow Rate FiO2 11/22/20 03:00 98.5 81 18 146/61 (89) 98 Room Air 98.5 Physical Exam General: Alert, Oriented X3, Cooperative, No acute distress, Other Heart: Regular rate Lungs: Clear Abdomen: Soft, No tenderness Extremities: No clubbing, No cyanosis, No edema Skin: No rashes, No significant lesion Labs LABS Laboratory Tests Test 11/21/20 07:04 11/21/20 11:37 11/21/20 16:35 11/21/20 22:15 Glucose (Fingerstick) 100 mg/dL (70-99) 131 mg/dL (70-99) 119 mg/dL (70-99) 122 mg/dL (70-99) Assessment and Plan Assessmemt and Plan Problems Medical Problems: (1) Back pain Status: Acute (2) ESRD (end stage renal disease) on dialysis Status: Chronic (3) Knee pain, bilateral Status: Acute (4) Pelvic pain Status: Acute (5) Weakness Status: Acute Comment Review of Relevant I have reviewed the following items tamika (where applicable) has been applied. Labs Laboratory Tests Test 11/20/20 08:37 11/20/20 10:50 11/20/20 12:17 11/20/20 17:22 Glucose (Fingerstick) 137 mg/dL (70-99) 108 mg/dL (70-99) 138 mg/dL (70-99) White Blood Count 2.2 x10^3/uL (4.0-11.0) Red Blood Count 2.10 x10^6/uL (3.50-5.40) Hemoglobin 7.2 g/dL (12.0-15.5) Hematocrit 22.0 % (36.0-47.0) Mean Corpuscular Volume 105 fL (79-100) Mean Corpuscular Hemoglobin 34 pg (25-35) Mean Corpuscular Hemoglobin Concent 33 g/dL (31-37) Red Cell Distribution Width 22.7 % (11.5-14.5) Platelet Count 117 x10^3/uL (140-400) Neutrophils (%) (Auto) 65 % (31-73) Lymphocytes (%) (Auto) 17 % (24-48) Monocytes (%) (Auto) 13 % (0-9) Eosinophils (%) (Auto) 4 % (0-3) Basophils (%) (Auto) 2 % (0-3) Neutrophils # (Auto) 1.5 x10^3/uL (1.8-7.7) Lymphocytes # (Auto) 0.4 x10^3/uL (1.0-4.8) Monocytes # (Auto) 0.3 x10^3/uL (0.0-1.1) Eosinophils # (Auto) 0.1 x10^3/uL (0.0-0.7) Basophils # (Auto) 0.0 x10^3/uL (0.0-0.2) Sodium Level 136 mmol/L (136-145) Potassium Level 4.1 mmol/L (3.5-5.1) Chloride Level 97 mmol/L (98-107) Carbon Dioxide Level 29 mmol/L (21-32) Anion Gap 10 (6-14) Blood Urea Nitrogen 41 mg/dL (7-20) Creatinine 6.9 mg/dL (0.6-1.0) Estimated GFR (Cockcroft-Gault) 7.2 Glucose Level 142 mg/dL (70-99) Calcium Level 8.8 mg/dL (8.5-10.1) Test 11/20/20 20:22 11/21/20 06:50 11/21/20 07:04 11/21/20 11:37 Glucose (Fingerstick) 131 mg/dL (70-99) 100 mg/dL (70-99) 131 mg/dL (70-99) White Blood Count 2.2 x10^3/uL (4.0-11.0) Red Blood Count 1.93 x10^6/uL (3.50-5.40) Hemoglobin 6.6 g/dL (12.0-15.5) Hematocrit 20.1 % (36.0-47.0) Mean Corpuscular Volume 104 fL (79-100) Mean Corpuscular Hemoglobin 34 pg (25-35) Mean Corpuscular Hemoglobin Concent 33 g/dL (31-37) Red Cell Distribution Width 22.3 % (11.5-14.5) Platelet Count 117 x10^3/uL (140-400) Neutrophils (%) (Auto) 61 % (31-73) Lymphocytes (%) (Auto) 19 % (24-48) Monocytes (%) (Auto) 16 % (0-9) Eosinophils (%) (Auto) 3 % (0-3) Basophils (%) (Auto) 1 % (0-3) Neutrophils # (Auto) 1.3 x10^3/uL (1.8-7.7) Lymphocytes # (Auto) 0.4 x10^3/uL (1.0-4.8) Monocytes # (Auto) 0.4 x10^3/uL (0.0-1.1) Eosinophils # (Auto) 0.1 x10^3/uL (0.0-0.7) Basophils # (Auto) 0.0 x10^3/uL (0.0-0.2) Sodium Level 134 mmol/L (136-145) Potassium Level 4.7 mmol/L (3.5-5.1) Chloride Level 97 mmol/L (98-107) Carbon Dioxide Level 29 mmol/L (21-32) Anion Gap 8 (6-14) Blood Urea Nitrogen 46 mg/dL (7-20) Creatinine 7.4 mg/dL (0.6-1.0) Estimated GFR (Cockcroft-Gault) 6.7 Glucose Level 102 mg/dL (70-99) Calcium Level 8.9 mg/dL (8.5-10.1) Phosphorus Level 5.2 mg/dL (2.6-4.7) Magnesium Level 2.1 mg/dL (1.8-2.4) Albumin 2.4 g/dL (3.4-5.0) Test 11/21/20 16:35 11/21/20 22:15 Glucose (Fingerstick) 119 mg/dL (70-99) 122 mg/dL (70-99) Laboratory Tests Test 11/21/20 07:04 11/21/20 11:37 11/21/20 16:35 11/21/20 22:15 Glucose (Fingerstick) 100 mg/dL (70-99) 131 mg/dL (70-99) 119 mg/dL (70-99) 122 mg/dL (70-99) Medications Current Medications Morphine Sulfate (Morphine Sulfate) 4 mg 1X ONCE IV Last administered on 11/18/20at 12:31; Start 11/18/20 at 12:00; Stop 11/18/20 at 12:02; Status DC Dextrose (Dextrose 50%-Water Syringe) 25 gm 1X ONCE IV Last administered on 11/18/20at 13:07; Start 11/18/20 at 13:00; Stop 11/18/20 at 13:01; Status DC Insulin Human Regular (HumuLIN R VIAL) 10 unit 1X ONCE IV Last administered on 11/18/20at 13:08; Start 11/18/20 at 13:00; Stop 11/18/20 at 13:01; Status DC Sodium Bicarbonate (Sodium Bicarb Adult 8.4% Syr) 50 meq 1X ONCE IV Last administered on 11/18/20at 13:07; Start 11/18/20 at 13:00; Stop 11/18/20 at 13:01; Status DC Ondansetron HCl (Zofran) 4 mg PRN Q8HRS PRN IV NAUSEA/VOMITING; Start 11/18/20 at 13:15; Stop 11/19/20 at 13:14; Status DC Morphine Sulfate (Morphine Sulfate) 4 mg PRN Q2HR PRN IV PAIN Last administered on 11/19/20at 12:44; Start 11/18/20 at 13:15; Stop 11/19/20 at 13:14; Status DC Acetaminophen (Tylenol) 500 mg PRN Q6HRS PRN PO pain or fever; Start 11/18/20 at 18:00 Albuterol Sulfate (Ventolin Neb Soln) 2.5 mg PRN Q2HRS PRN NEB SOB / WHILE AWAKE; Start 11/18/20 at 18:00 Ferrous Sulfate (Feosol) 325 mg BIDWMEALS PO Last administered on 11/21/20at 08:37; Start 11/19/20 at 08:00 Oxycodone/ Acetaminophen (Percocet 5/325) 1 tab QIDPRN PRN PO PAIN Last administered on 11/21/20at 19:49; Start 11/18/20 at 18:00 Pantoprazole Sodium (Protonix) 40 mg DAILYAC PO Last administered on 11/21/20at 08:37; Start 11/19/20 at 07:30 Sodium Chloride 1,000 ml @ 1,000 mls/hr Q1H PRN IV hypotension; Start 11/19/20 at 08:45; Stop 11/19/20 at 14:44; Status DC Albumin Human 200 ml @ 200 mls/hr 1X PRN PRN IV Hypotension; Start 11/19/20 at 08:45; Stop 11/19/20 at 14:44; Status DC Diphenhydramine HCl (Benadryl) 25 mg 1X PRN PRN IV ITCHING; Start 11/19/20 at 08:45; Stop 11/20/20 at 08:44; Status DC Diphenhydramine HCl (Benadryl) 25 mg 1X PRN PRN IV ITCHING; Start 11/19/20 at 08:45; Stop 11/20/20 at 08:44; Status DC Sodium Chloride 1,000 ml @ 400 mls/hr Q2H30M PRN IV PATENCY; Start 11/19/20 at 08:45; Stop 11/19/20 at 20:44; Status DC Info (PHARMACY MONITORING -- do not chart) 1 each PRN DAILY PRN MC SEE COMMENTS; Start 11/19/20 at 08:45 Diclofenac Sodium (Voltaren) 1 mikey BID TP Last administered on 11/21/20at 19:50; Start 11/19/20 at 12:00 Nystatin (Nystop) 1 mikey BID TP Last administered on 11/21/20at 19:52; Start 11/19/20 at 21:00 Magnesium Sulfate 50 ml @ 25 mls/hr PRN DAILY PRN IV for Mag < 1.7 on am labs; Start 11/20/20 at 08:45 Darbepoetin [place] (ARANESP for DIALYSIS PTS) 60 mcg Paul SQ Last administered on 11/20/20at 20:56; Start 11/20/20 at 21:00 Active Scripts Active Nyamyc (Nystatin) 15 Gm Powder 1 Mikey TP BID 14 Days [Diclofenac Sodium] 100 GM Gel..gram. 1 Mikey TP BID 14 Days Percocet 5-325 Mg Tablet (Oxycodone/Acetaminophen) 1 Each Tablet 1 Tab PO QIDPRN PRN MDD 4 Tablet(s) 2 Days Feosol (Ferrous Sulfate) 325 Mg Tablet 325 Mg PO BIDWMEALS 60 Days Proair Hfa (Albuterol Sulfate) 8.5 Gm Hfa.aer.ad 2.5 Mg NEB PRN Q2HRS PRN 30 Days Pantoprazole Sodium (Pantoprazole Sodium) 40 Mg Tablet.dr 40 Mg PO DAILYAC 30 Days Reported Carvedilol 25 Mg Tablet 25 Mg PO BIDWMEALS Folic Acid 0.4 Mg Tablet 0.4 Mg PO DAILY Acetaminophen 500 Mg Tablet 1 Tab PO PRN Q6HRS PRN 15 Days Vitals/I & O Vital Sign - Last 24 Hours 11/21/20 11/21/20 11/21/20 11/21/20 07:00 08:00 08:38 09:38 Temp 98.0 98.0 Pulse 79 Resp 18 B/P (MAP) 135/50 (78) Pulse Ox 98 O2 Delivery Room Air Room Air Room Air Room Air 11/21/20 11/21/20 11/21/20 11/21/20 11:00 13:23 13:38 14:23 Temp 98.1 98.1 98.0 98.0 98.1 98.1 98.0 98.0 Pulse 81 81 82 80 Resp 18 18 18 20 B/P (MAP) 119/51 (73) 119/51 135/81 128/64 Pulse Ox 99 O2 Delivery Room Air 11/21/20 11/21/20 11/21/20 11/21/20 15:00 19:45 19:45 19:49 Temp 98.0 98.5 98.0 98.5 Pulse 81 87 Resp 18 20 20 B/P (MAP) 136/57 (83) 154/59 (90) Pulse Ox 99 100 O2 Delivery Room Air Room Air Room Air Room Air 11/21/20 11/21/20 11/22/20 20:49 23:00 03:00 Temp 98.0 98.5 98.0 98.5 Pulse 85 81 Resp 20 18 18 B/P (MAP) 149/63 (91) 146/61 (89) Pulse Ox 100 98 O2 Delivery Room Air Room Air Room Air Intake and Output 11/21/20 11/21/20 11/22/20 15:00 23:00 07:00 Intake Total 310 ml 120 ml 480 ml Output Total 0 ml Balance 310 ml 120 ml 480 ml Justicifation of Admission Dx: Justifications for Admission: Justification of Admission Dx: Yes Acute Renal Failure: Serum Cr > 4mg/dL Chronic Renal Failure: Hemodynamic Instability Sepsis: Infection ASHIA MOSS MD Nov 22, 2020 06:54
[2020-11-22] MEDS ORDERED: DIALYSIS PATIENT. MC PRN ×2 (07:30)
[2020-11-22] MEDS ORDERED: ALBUMIN HUMAN 25% 200 ML IV PRN (07:30)
[2020-11-22] MEDS ORDERED: IV NORMAL SALINE 1000ML BAG 1,000 ML IV PRN ×2 (07:30)
[2020-11-22 08:05] LABS: ALBUMIN 2.4 g/dL (3.4-5.0); CALCIUM 8.9 mg/dL (8.5-10.1); CREATININE 8.3 mg/dL (0.6-1.0); GFR 5.8; PHOSPHORUS 5.6 mg/dL (2.6-4.7); POTASSIUM 5.2 mmol/L (3.5-5.1)
[2020-11-22] MEDS: oxyCODONE/APAP 5/325 1 TAB TABLET PO PRN ×2 (10:05→19:00)
--- NOTE | 2020-11-22 10:11 | NUR ---
ANITA following. Discussed with RN, pt from home, room air, renal diet. Pt did not discharge yesterday due to "feeling weak". Referral for wheelchair and walker sent to [facility] - they are awaiting insurance auth. Pt declined SNF and home health. Anticipate discharge home today. ANITA will continue to follow. Addendum: 11/22/20 at 1124 by PATRIC HOWARD [facility] advised insurance won't cover both the walker and wheelchair. Pt reported to RN she already has a walker. [facility]ITA advised [facility] to have the wheelchair completed. Pt discharging today. Wheelchair will be delivered to pt's home if approved. RN notified. No further ANITA needs. Addendum: 11/22/20 at 1325 by PATRIC HOWARD RN contacted ANITA to advise pt's family stating pt cannot go home as she is unable to care for herself. Pt now agreeable to SNU. ANITA met with pt (no isolation precautions at the time), pt agreeable and would like referral faxed to [facility] ([place], [place]) as she has been there before. Pt will be swabbed for COVID today. ANITA will continue to follow. Addendum: 11/22/20 at 1442 by PATRIC HOWARD Pt accepted at [facility] ([place], [place]) for SNF, pending negative COVID test. RN notified.
[2020-11-22 10:53] LABS: HEMATOCRIT 24.6 % (36.0-47.0); HEMOGLOBIN 8.1 g/dL (12.0-15.5)
--- NOTE | 2020-11-22 11:43 | PDOC ---
PROGRESS NOTES Date of Service DATE: 11/22/20 TIME: 11:26 Subjective Subjective No new problems. Objective Objective Vital Signs Date Time Temp Pulse Resp B/P (MAP) Pulse Ox O2 Delivery O2 Flow Rate FiO2 11/22/20 10:05 Room Air 11/22/20 03:00 98.5 81 18 146/61 (89) 98 98.5 Intake and Output 11/22/20 07:00 Intake Total 910 ml Output Total 0 ml Balance 910 ml Intake Oral 900 ml Blood Product IV Normal Saline Flush 10 ml Output Urine Total 0 ml Physical Exam Physical Exam She is alert,supine in bed receiving hemodialysis and plans to go home this afternoon and not interested in ijections to help ease her knee joint and trochanteric bursa pain. Assessment Assessment Problems Medical Problems: (1) Back pain Status: Acute (2) ESRD (end stage renal disease) on dialysis Status: Chronic (3) Knee pain, bilateral Status: Acute (4) Pelvic pain Status: Acute (5) Weakness Status: Acute Plan Plan of Care Agree with plans. Comment Review of Relevant I have reviewed the following items tamika (where applicable) has been applied. Labs Laboratory Tests Test 11/20/20 12:17 11/20/20 17:22 11/20/20 20:22 11/21/20 06:50 Glucose (Fingerstick) 108 mg/dL (70-99) 138 mg/dL (70-99) 131 mg/dL (70-99) White Blood Count 2.2 x10^3/uL (4.0-11.0) Red Blood Count 1.93 x10^6/uL (3.50-5.40) Hemoglobin 6.6 g/dL (12.0-15.5) Hematocrit 20.1 % (36.0-47.0) Mean Corpuscular Volume 104 fL (79-100) Mean Corpuscular Hemoglobin 34 pg (25-35) Mean Corpuscular Hemoglobin Concent 33 g/dL (31-37) Red Cell Distribution Width 22.3 % (11.5-14.5) Platelet Count 117 x10^3/uL (140-400) Neutrophils (%) (Auto) 61 % (31-73) Lymphocytes (%) (Auto) 19 % (24-48) Monocytes (%) (Auto) 16 % (0-9) Eosinophils (%) (Auto) 3 % (0-3) Basophils (%) (Auto) 1 % (0-3) Neutrophils # (Auto) 1.3 x10^3/uL (1.8-7.7) Lymphocytes # (Auto) 0.4 x10^3/uL (1.0-4.8) Monocytes # (Auto) 0.4 x10^3/uL (0.0-1.1) Eosinophils # (Auto) 0.1 x10^3/uL (0.0-0.7) Basophils # (Auto) 0.0 x10^3/uL (0.0-0.2) Sodium Level 134 mmol/L (136-145) Potassium Level 4.7 mmol/L (3.5-5.1) Chloride Level 97 mmol/L (98-107) Carbon Dioxide Level 29 mmol/L (21-32) Anion Gap 8 (6-14) Blood Urea Nitrogen 46 mg/dL (7-20) Creatinine 7.4 mg/dL (0.6-1.0) Estimated GFR (Cockcroft-Gault) 6.7 Glucose Level 102 mg/dL (70-99) Calcium Level 8.9 mg/dL (8.5-10.1) Phosphorus Level 5.2 mg/dL (2.6-4.7) Magnesium Level 2.1 mg/dL (1.8-2.4) Albumin 2.4 g/dL (3.4-5.0) Test 11/21/20 07:04 11/21/20 11:37 11/21/20 16:35 11/21/20 22:15 Glucose (Fingerstick) 100 mg/dL (70-99) 131 mg/dL (70-99) 119 mg/dL (70-99) 122 mg/dL (70-99) Test 11/22/20 06:45 Hemoglobin 8.1 g/dL (12.0-15.5) Hematocrit 24.6 % (36.0-47.0) Mean Corpuscular Hemoglobin Concent 33 g/dL (31-37) Sodium Level 135 mmol/L (136-145) Potassium Level 5.2 mmol/L (3.5-5.1) Chloride Level 97 mmol/L (98-107) Carbon Dioxide Level 27 mmol/L (21-32) Anion Gap 11 (6-14) Blood Urea Nitrogen 56 mg/dL (7-20) Creatinine 8.3 mg/dL (0.6-1.0) Estimated GFR (Cockcroft-Gault) 5.8 Glucose Level 97 mg/dL (70-99) Calcium Level 8.9 mg/dL (8.5-10.1) Phosphorus Level 5.6 mg/dL (2.6-4.7) Magnesium Level 2.1 mg/dL (1.8-2.4) Albumin 2.4 g/dL (3.4-5.0) Laboratory Tests Test 11/21/20 11:37 11/21/20 16:35 11/21/20 22:15 11/22/20 06:45 Glucose (Fingerstick) 131 mg/dL (70-99) 119 mg/dL (70-99) 122 mg/dL (70-99) Hemoglobin 8.1 g/dL (12.0-15.5) Hematocrit 24.6 % (36.0-47.0) Mean Corpuscular Hemoglobin Concent 33 g/dL (31-37) Sodium Level 135 mmol/L (136-145) Potassium Level 5.2 mmol/L (3.5-5.1) Chloride Level 97 mmol/L (98-107) Carbon Dioxide Level 27 mmol/L (21-32) Anion Gap 11 (6-14) Blood Urea Nitrogen 56 mg/dL (7-20) Creatinine 8.3 mg/dL (0.6-1.0) Estimated GFR (Cockcroft-Gault) 5.8 Glucose Level 97 mg/dL (70-99) Calcium Level 8.9 mg/dL (8.5-10.1) Phosphorus Level 5.6 mg/dL (2.6-4.7) Magnesium Level 2.1 mg/dL (1.8-2.4) Albumin 2.4 g/dL (3.4-5.0) Medications Current Medications Morphine Sulfate (Morphine Sulfate) 4 mg 1X ONCE IV Last administered on 11/18/20at 12:31; Start 11/18/20 at 12:00; Stop 11/18/20 at 12:02; Status DC Dextrose (Dextrose 50%-Water Syringe) 25 gm 1X ONCE IV Last administered on 11/18/20at 13:07; Start 11/18/20 at 13:00; Stop 11/18/20 at 13:01; Status DC Insulin Human Regular (HumuLIN R VIAL) 10 unit 1X ONCE IV Last administered on 11/18/20at 13:08; Start 11/18/20 at 13:00; Stop 11/18/20 at 13:01; Status DC Sodium Bicarbonate (Sodium Bicarb Adult 8.4% Syr) 50 meq 1X ONCE IV Last administered on 11/18/20at 13:07; Start 11/18/20 at 13:00; Stop 11/18/20 at 13:01; Status DC Ondansetron HCl (Zofran) 4 mg PRN Q8HRS PRN IV NAUSEA/VOMITING; Start 11/18/20 at 13:15; Stop 11/19/20 at 13:14; Status DC Morphine Sulfate (Morphine Sulfate) 4 mg PRN Q2HR PRN IV PAIN Last administered on 11/19/20at 12:44; Start 11/18/20 at 13:15; Stop 11/19/20 at 13:14; Status DC Acetaminophen (Tylenol) 500 mg PRN Q6HRS PRN PO pain or fever; Start 11/18/20 at 18:00 Albuterol Sulfate (Ventolin Neb Soln) 2.5 mg PRN Q2HRS PRN NEB SOB / WHILE AWAKE; Start 11/18/20 at 18:00 Ferrous Sulfate (Feosol) 325 mg BIDWMEALS PO Last administered on 11/21/20at 08:37; Start 11/19/20 at 08:00 Oxycodone/ Acetaminophen (Percocet 5/325) 1 tab QIDPRN PRN PO PAIN Last administered on 11/22/20at 10:05; Start 11/18/20 at 18:00 Pantoprazole Sodium (Protonix) 40 mg DAILYAC PO Last administered on 11/21/20at 08:37; Start 11/19/20 at 07:30 Sodium Chloride 1,000 ml @ 1,000 mls/hr Q1H PRN IV hypotension; Start 11/19/20 at 08:45; Stop 11/19/20 at 14:44; Status DC Albumin Human 200 ml @ 200 mls/hr 1X PRN PRN IV Hypotension; Start 11/19/20 at 08:45; Stop 11/19/20 at 14:44; Status DC Diphenhydramine HCl (Benadryl) 25 mg 1X PRN PRN IV ITCHING; Start 11/19/20 at 08:45; Stop 11/20/20 at 08:44; Status DC Diphenhydramine HCl (Benadryl) 25 mg 1X PRN PRN IV ITCHING; Start 11/19/20 at 08:45; Stop 11/20/20 at 08:44; Status DC Sodium Chloride 1,000 ml @ 400 mls/hr Q2H30M PRN IV PATENCY; Start 11/19/20 at 08:45; Stop 11/19/20 at 20:44; Status DC Info (PHARMACY MONITORING -- do not chart) 1 each PRN DAILY PRN MC SEE COMMENTS; Start 11/19/20 at 08:45; Stop 11/22/20 at 07:34; Status DC Diclofenac Sodium (Voltaren) 1 mikey BID TP Last administered on 11/21/20at 19:50; Start 11/19/20 at 12:00 Nystatin (Nystop) 1 mikey BID TP Last administered on 11/21/20at 19:52; Start 11/19/20 at 21:00 Magnesium Sulfate 50 ml @ 25 mls/hr PRN DAILY PRN IV for Mag < 1.7 on am labs; Start 11/20/20 at 08:45 Darbepoetin [place] (ARANESP for DIALYSIS PTS) 60 mcg Paul SQ Last administered on 11/20/20at 20:56; Start 11/20/20 at 21:00 Sodium Chloride 1,000 ml @ 1,000 mls/hr Q1H PRN IV hypotension; Start 11/22/20 at 07:30; Stop 11/22/20 at 13:29 Albumin Human 200 ml @ 200 mls/hr 1X PRN PRN IV Hypotension; Start 11/22/20 at 07:30; Stop 11/22/20 at 13:29 Sodium Chloride 1,000 ml @ 400 mls/hr Q2H30M PRN IV PATENCY; Start 11/22/20 at 07:30; Stop 11/22/20 at 19:29 Info (PHARMACY MONITORING -- do not chart) 1 each PRN DAILY PRN MC SEE COMMENTS; Start 11/22/20 at 07:30; Stop 11/22/20 at 07:34; Status DC Info (PHARMACY MONITORING -- do not chart) 1 each PRN DAILY PRN MC SEE COMMENTS; Start 11/22/20 at 07:30 Active Scripts Active Nyamyc (Nystatin) 15 Gm Powder 1 Mikey TP BID 14 Days [Diclofenac Sodium] 100 GM Gel..gram. 1 Mikey TP BID 14 Days Percocet 5-325 Mg Tablet (Oxycodone/Acetaminophen) 1 Each Tablet 1 Tab PO QIDPRN PRN MDD 4 Tablet(s) 2 Days Feosol (Ferrous Sulfate) 325 Mg Tablet 325 Mg PO BIDWMEALS 60 Days Proair Hfa (Albuterol Sulfate) 8.5 Gm Hfa.aer.ad 2.5 Mg NEB PRN Q2HRS PRN 30 Days Pantoprazole Sodium (Pantoprazole Sodium) 40 Mg Tablet.dr 40 Mg PO DAILYAC 30 Days Reported Carvedilol 25 Mg Tablet 25 Mg PO BIDWMEALS Folic Acid 0.4 Mg Tablet 0.4 Mg PO DAILY Acetaminophen 500 Mg Tablet 1 Tab PO PRN Q6HRS PRN 15 Days Vitals/I & O Vital Sign - Last 24 Hours 11/21/20 11/21/20 11/21/20 11/21/20 13:23 13:38 14:23 15:00 Temp 98.1 98.0 98.0 98.0 98.1 98.0 98.0 98.0 Pulse 81 82 80 81 Resp 18 18 20 18 B/P (MAP) 119/51 135/81 128/64 136/57 (83) Pulse Ox 99 O2 Delivery Room Air 11/21/20 11/21/20 11/21/20 11/21/20 19:45 19:45 19:49 20:49 Temp 98.5 98.5 Pulse 87 Resp 20 20 20 B/P (MAP) 154/59 (90) Pulse Ox 100 O2 Delivery Room Air Room Air Room Air Room Air 11/21/20 11/22/20 11/22/20 23:00 03:00 10:05 Temp 98.0 98.5 98.0 98.5 Pulse 85 81 Resp 18 18 B/P (MAP) 149/63 (91) 146/61 (89) Pulse Ox 100 98 O2 Delivery Room Air Room Air Room Air Intake and Output 11/21/20 11/21/20 11/22/20 15:00 23:00 07:00 Intake Total 310 ml 120 ml 480 ml Output Total 0 ml Balance 310 ml 120 ml 480 ml Justifications for Admission Other Justification Hyperkalemia, hemodialysis SUSY ESTRELLA MD Nov 22, 2020 11:43
--- NOTE | 2020-11-22 12:53 | PDOC ---
Renal-Progress Notes Subjective Notes Notes FEELING BETTER History of Present Illness Hx of present illness STABLE Vitals Vitals Vital Signs Date Time Temp Pulse Resp B/P (MAP) Pulse Ox O2 Delivery O2 Flow Rate FiO2 11/22/20 10:05 Room Air 11/22/20 03:00 98.5 81 18 146/61 (89) 98 98.5 Weight Weight [ ] I.O. Intake and Output Intake and Output 11/22/20 07:00 Intake Total 910 ml Output Total 0 ml Balance 910 ml Intake Oral 900 ml Blood Product IV Normal Saline Flush 10 ml Output Urine Total 0 ml Labs Labs Laboratory Tests Test 11/21/20 16:35 11/21/20 22:15 11/22/20 06:45 11/22/20 12:14 Glucose (Fingerstick) 119 mg/dL (70-99) 122 mg/dL (70-99) 82 mg/dL (70-99) Hemoglobin 8.1 g/dL (12.0-15.5) Hematocrit 24.6 % (36.0-47.0) Mean Corpuscular Hemoglobin Concent 33 g/dL (31-37) Sodium Level 135 mmol/L (136-145) Potassium Level 5.2 mmol/L (3.5-5.1) Chloride Level 97 mmol/L (98-107) Carbon Dioxide Level 27 mmol/L (21-32) Anion Gap 11 (6-14) Blood Urea Nitrogen 56 mg/dL (7-20) Creatinine 8.3 mg/dL (0.6-1.0) Estimated GFR (Cockcroft-Gault) 5.8 Glucose Level 97 mg/dL (70-99) Calcium Level 8.9 mg/dL (8.5-10.1) Phosphorus Level 5.6 mg/dL (2.6-4.7) Magnesium Level 2.1 mg/dL (1.8-2.4) Albumin 2.4 g/dL (3.4-5.0) Review of Systems Constitutional: yes: weakness, alert, oriented Ears/Nose/Throat: Yes: no symptom reported Eyes: Yes: no symptom reported Pulmonary: Yes no symptom reported Cardiovascular: Yes no symptom reported Gastrointestional: Yes: no symptom reported Genitourinary: Yes: no symptom reported Musculoskeletal: Yes: no symptom reported Skin: Yes no symptom reported Psychiatric/Neurological: Yes: no symptom reported Physical Exam General Appearance: no apparent distress, febrile Heart: S1S2 Abdomen: soft, bowel sounds present Genitourinary: bladder flat Extremities: pulses present, atrophy Neurology: alert Assessment Assessment IMP ESRD ANEMIA DM II HTN NON COMPLIANCE PLAN HD TODAY UF TO DW D/C PLANS NOTED ENC COMPLIANCE HAS RECEIVED LINNEA SAVAGE MD Nov 22, 2020 12:53
[2020-11-22] MEDS: FERROUS SULFATE 325 MG TABLET. PO SCH ×2 (13:34→19:00)
[2020-11-22] MEDS: PANTOPRAZOLE 40 MG TABLET.DR. PO SCH (13:34)
[2020-11-22] MEDS: DICLOFENAC SODIUM 1% TOPICAL GEL 100GM TUBE. TP SCH ×2 (13:35→20:27)
[2020-11-22] MEDS: NYSTATIN TOPICAL POWDER 15GM BOTTLE. TP SCH ×2 (13:35→20:26)
[2020-11-22 15:00] VITALS: BP 146/61
[2020-11-22 19:00] VITALS: BP 177/67
[2020-11-22 23:03] VITALS: BP 157/55
[2020-11-23 03:00] VITALS: BP 136/44
[2020-11-23 07:00] VITALS: BP 134/38
[2020-11-23 07:44] LABS: ALBUMIN 2.3 g/dL (3.4-5.0); CREATININE 5.5 mg/dL (0.6-1.0); GFR 9.4; PHOSPHORUS 4.2 mg/dL (2.6-4.7); POTASSIUM 4.1 mmol/L (3.5-5.1)
--- NOTE | 2020-11-23 08:23 | PDOC ---
PROGRESS NOTES Date of Service: DATE: 11/23/20 TIME: 08:22 Chief Complaint Chief Complaint -hospital summary, [facility] date of admit 11-16-20 date of discharge 11-23-20 consults nephrology for dialysis, DR ESTRELLA, INFECTIOUS DISEASES PHYSICIAN COMPLICATION NONE FOLLOW UP DR SHULTZ TOMORROW, DIALYSIS d/c plan to home with home health 11-21, transfused , family refused to d/c home 11-22 PATIENT REFUSED TO GO HOME YESTERDAY, AGREES WITH D/C TODAY, now needs SNF BED DUE TO SELF CARE DEFICITS admitted with back pain, knee pain, pelvic pain after a fall consult Dr. Estrella from physiatry, he has seen her before for OA and knee pain OK TO D/C WITH HOME HEALTH 11-21 , FAMILY feels this is unsafe plan, wants snf bed ESRD, fluid overload, hyperkalemia, needs HD, missed HD anemia, chronic with symptomatic features weakenss and debility high fall risk, pt/ot poor compliance this makes 13 hospitalizations in the past 12 months. admit morbid obesity, weight loss education provided ANEMIA, TRANSFUSED TODAY ONE UNIT 11/21 D/C PLANNING 36 MIN History of Present Illness History of Present Illness Ms. Fernandez is a 65 year old female who was brought here by EMS from home due to knee pain, pelvic pain after she fell in the bathroom yesterday. She seems to have many admits for similar problems;. I saw her after the ER and she was comfortable and lethargic with pain meds on and wanted to rest. Patient denies any head or neck injury. Patient says she had chronic low back pain, and this is much worse after the fall yesterday and she was unable to make it to HD due to pain. . Patient denies any bowel or bladder incontinence. Patient has a long history end-stage renal failure, and Dr. Shultz is her renal docotr. movement makes her pain worse, pain was 7.10 11/19: Patient seen and evaluated. She refused PT today. Discussed with patient that our goal is to try to get her stronger to where she is able to ambulate with a walker at home. Told patient she needs to participate with PT tomorrow and patient understood. Discussed with Dr. Estrella Will provide patient a walker at time of discharge. Plan is for SNF, barring PT eval and recommendations. 11/20: Patient seen and evaluated. Morning labs pending. Discussed with patient about participating with physical therapy today. Plan is still for SNF next week once PT has provided their assessment and evaluation. Vitals Vitals Vital Signs Date Time Temp Pulse Resp B/P (MAP) Pulse Ox O2 Delivery O2 Flow Rate FiO2 11/23/20 07:00 98.0 82 18 134/38 (70) 98 Room Air 98.0 Physical Exam General: Alert, Oriented X3, Cooperative, No acute distress, Other Heart: Regular rate Lungs: Clear Abdomen: Normal bowel sounds, Soft, No tenderness Extremities: No clubbing, No cyanosis, No edema Skin: No rashes, No significant lesion Labs LABS APPROVED REPORT EXAM: Two-dimensional and M-mode echocardiogram with Doppler and color Doppler. Other Information Quality : Average HR: 87bpm INDICATION Elevated Troponin 2D DIMENSIONS RVDd 3.2 (2.9-3.5cm) Left Atrium(2D) 3.6 (1.6-4.0cm) IVSd 1.4 (0.7-1.1cm) Aortic Root(2D) 2.7 (2.0-3.7cm) LVDd 4.8 (3.9-5.9cm) LVOT Diameter 1.8 (1.8-2.4cm) PWd 1.0 (0.7-1.1cm) LVDs 3.1 (2.5-4.0cm) FS (%) 36.1 % SV 70.0 ml LVEF(%) 65.7 (>50%) Aortic Valve AoV Peak Jeff. 181.4cm/s AoV VTI 37.5cm AO Peak GR. 13.2mmHg LVOT VTI 24.20cm AO Mean GR. 8mmHg Mitral Valve MV E Velocity 157.9cm/s MV DECEL TIME 167ms MV A Velocity 101.1cm/s E/A Ratio 1.6 TDI Lateral E' P. V 7.92cm/s Medial E' P. V 9.20cm/s E/Lateral E' 19.9 E/Medial E' 17.2 Tricuspid Valve TR P. Velocity 348cm/s RAP ESTIMATE 3mmHg TR Peak Gr. 49mmHg RVSP 52mmHg Pulmonary Vein S1 Velocity 51.5cm/s S2 Velocity 53.21cm/s D2 Velocity 53.2cm/s PVa duration 119msec LEFT VENTRICLE The left ventricle is normal size. There is mild to moderate concentric left ventricular hypertrophy. The left ventricular systolic function is normal. The Ejection Fraction is 60-65%. There is normal LV segmental wall motion. The left ventricular diastolic function and filling is normal for age. RIGHT VENTRICLE The right ventricle is normal size. There is normal right ventricular wall thickness. The right ventricular systolic function is normal. ATRIA The left atrium size is normal. The right atrium is mildly dilated. The interatrial septum is intact with no evidence for an atrial septal defect or patent foramen ovale as noted on 2-D or Doppler imaging. AORTIC VALVE The aortic valve is calcified but opens well. Doppler and Color Flow revealed trace aortic regurgitation. There is no significant aortic valvular stenosis. MITRAL VALVE The mitral valve is moderately thickened. There is no evidence of mitral valve prolapse. There is no mitral valve stenosis. Doppler and Color-flow revealed trace mitral regurgitation. TRICUSPID VALVE The tricuspid valve is normal in structure and function. Doppler and Color Flow revealed trace tricuspid regurgitation with an estimated PAP of 52 mmHg. There is moderate pulmonary hypertension. There is no tricuspid valve stenosis. PULMONIC VALVE The pulmonary valve is normal in structure and function. Doppler and Color Flow revealed no pulmonic valvular regurgitation. GREAT VESSELS The aortic root is normal in size. The IVC is normal in size and collapses >50% with inspiration. PERICARDIAL EFFUSION There is no evidence of significant pericardial effusion. Critical Notification Critical Value: No <Conclusion> The left ventricular systolic function is normal. The Ejection Fraction is 60-65%. There is normal LV segmental wall motion. Trace mitral regurgitation. Trace tricuspid regurgitation with an estimated PAP of 52 mmHg. There is no evidence of significant pericardial effusion. Signed by : Elder Weaver, Electronically Approved : 02/18/2019 14:35:25 DICTATED and SIGNED BY: ELDER WEAVER MD DATE: 02/18/19 1435 Exam: L-spine 3 views INDICATION: Fell in the bathroom yesterday. Back pain. COMPARISON: Abdomen pelvis CT without IV contrast of 10/10/2020 FINDINGS: AP, lateral and coned-down lateral views of the lumbar spine show 5 lumbar type vertebral bodies in near anatomic alignment with mild grade 1 anterolisthesis of L4 on L5, similar to prior. There is no acute fracture and no aggressive appearing bony lesions shown. The facet joints show hypertrophy in the lower lumbar segments. Soft tissues show arterial calcifications, cholecystectomy clips and embolization coils in the upper mid abdomen. IMPRESSION: No acute fracture or aggressive appearing bony lesions shown by x-ray in the lumbar spine. EXAMINATION: Single view pelvis INDICATION: Pelvic pain after a fall. COMPARISON: Abdomen pelvis CT without IV contrast 10/10/2020 FINDINGS: Chronic deformity to the right superior and inferior pubic rami is present, consistent with old healed fractures. An intramedullary fermin in the right femoral shaft is again evident. No fracture or dislocation is shown. There are arterial vascular calcifications. Impression: No acute fractures of the pelvis or hips with chronic deformity to the right superior and inferior pubic rami noted. Examination: Bilateral knees 3 views each INDICATION: Knee pain after falling the bathroom. TECHNIQUE: AP oblique and lateral views of each knee were obtained FINDINGS: Right knee shows lateral plate and screw construct proximal tibial fracture fixation with evidence of healing of the proximal tibial metaphyseal fracture. There is mild deformity to the proximal fibula compatible with an old, healed fracture as well. A distal intramedullary fermin in the right femur has interlock ing screws in the distal femoral fracture and reduces and fixates is shows evidence of healing. No acute right knee fracture and no dislocation is evident. There is articular surface irregularity and joint space narrowing in the lateral compartment of the right knee compatible with moderately advanced degenerative changes. Less profound joint space narrowing is present in the patellofemoral compartment. Soft tissues show arterial vascular calcifications. Left knee shows joint space narrowing in all 3 compartments but no acute fracture or aggressive appearing bony lesions. Soft tissues show arterial vascular calcifications. IMPRESSION: 1. Status post right knee surgical hardware repair with good evidence of healing of old fractures and no new fractures or dislocation. 2. Left knee shows multicompartmental degenerative changes with no acute fracture or dislocation. Electronically signed by: Wilfrido Astorga MD (11/18/2020 11:02 AM) [id number] Laboratory Tests Test 11/22/20 12:14 11/22/20 17:14 11/22/20 20:26 11/23/20 06:40 Glucose (Fingerstick) 82 mg/dL (70-99) 110 mg/dL (70-99) 139 mg/dL (70-99) Sodium Level 138 mmol/L (136-145) Potassium Level 4.1 mmol/L (3.5-5.1) Chloride Level 99 mmol/L (98-107) Carbon Dioxide Level 29 mmol/L (21-32) Anion Gap 10 (6-14) Blood Urea Nitrogen 33 mg/dL (7-20) Creatinine 5.5 mg/dL (0.6-1.0) Estimated GFR (Cockcroft-Gault) 9.4 Glucose Level 94 mg/dL (70-99) Calcium Level 9.0 mg/dL (8.5-10.1) Phosphorus Level 4.2 mg/dL (2.6-4.7) Magnesium Level 2.0 mg/dL (1.8-2.4) Albumin 2.3 g/dL (3.4-5.0) Test 11/23/20 08:15 Glucose (Fingerstick) 98 mg/dL (70-99) Assessment and Plan Assessmemt and Plan Problems Medical Problems: (1) Back pain Status: Acute (2) ESRD (end stage renal disease) on dialysis Status: Chronic (3) Knee pain, bilateral Status: Acute (4) Pelvic pain Status: Acute (5) Weakness Status: Acute Comment Review of Relevant I have reviewed the following items tamika (where applicable) has been applied. Labs Laboratory Tests Test 11/21/20 11:37 11/21/20 16:35 11/21/20 22:15 11/22/20 06:45 Glucose (Fingerstick) 131 mg/dL (70-99) 119 mg/dL (70-99) 122 mg/dL (70-99) Hemoglobin 8.1 g/dL (12.0-15.5) Hematocrit 24.6 % (36.0-47.0) Mean Corpuscular Hemoglobin Concent 33 g/dL (31-37) Sodium Level 135 mmol/L (136-145) Potassium Level 5.2 mmol/L (3.5-5.1) Chloride Level 97 mmol/L (98-107) Carbon Dioxide Level 27 mmol/L (21-32) Anion Gap 11 (6-14) Blood Urea Nitrogen 56 mg/dL (7-20) Creatinine 8.3 mg/dL (0.6-1.0) Estimated GFR (Cockcroft-Gault) 5.8 Glucose Level 97 mg/dL (70-99) Calcium Level 8.9 mg/dL (8.5-10.1) Phosphorus Level 5.6 mg/dL (2.6-4.7) Magnesium Level 2.1 mg/dL (1.8-2.4) Albumin 2.4 g/dL (3.4-5.0) Test 11/22/20 12:14 11/22/20 17:14 11/22/20 20:26 11/23/20 06:40 Glucose (Fingerstick) 82 mg/dL (70-99) 110 mg/dL (70-99) 139 mg/dL (70-99) Sodium Level 138 mmol/L (136-145) Potassium Level 4.1 mmol/L (3.5-5.1) Chloride Level 99 mmol/L (98-107) Carbon Dioxide Level 29 mmol/L (21-32) Anion Gap 10 (6-14) Blood Urea Nitrogen 33 mg/dL (7-20) Creatinine 5.5 mg/dL (0.6-1.0) Estimated GFR (Cockcroft-Gault) 9.4 Glucose Level 94 mg/dL (70-99) Calcium Level 9.0 mg/dL (8.5-10.1) Phosphorus Level 4.2 mg/dL (2.6-4.7) Magnesium Level 2.0 mg/dL (1.8-2.4) Albumin 2.3 g/dL (3.4-5.0) Test 11/23/20 08:15 Glucose (Fingerstick) 98 mg/dL (70-99) Laboratory Tests Test 11/22/20 12:14 11/22/20 17:14 11/22/20 20:26 11/23/20 06:40 Glucose (Fingerstick) 82 mg/dL (70-99) 110 mg/dL (70-99) 139 mg/dL (70-99) Sodium Level 138 mmol/L (136-145) Potassium Level 4.1 mmol/L (3.5-5.1) Chloride Level 99 mmol/L (98-107) Carbon Dioxide Level 29 mmol/L (21-32) Anion Gap 10 (6-14) Blood Urea Nitrogen 33 mg/dL (7-20) Creatinine 5.5 mg/dL (0.6-1.0) Estimated GFR (Cockcroft-Gault) 9.4 Glucose Level 94 mg/dL (70-99) Calcium Level 9.0 mg/dL (8.5-10.1) Phosphorus Level 4.2 mg/dL (2.6-4.7) Magnesium Level 2.0 mg/dL (1.8-2.4) Albumin 2.3 g/dL (3.4-5.0) Test 11/23/20 08:15 Glucose (Fingerstick) 98 mg/dL (70-99) Medications Current Medications Morphine Sulfate (Morphine Sulfate) 4 mg 1X ONCE IV Last administered on 11/18/20at 12:31; Start 11/18/20 at 12:00; Stop 11/18/20 at 12:02; Status DC Dextrose (Dextrose 50%-Water Syringe) 25 gm 1X ONCE IV Last administered on 11/18/20at 13:07; Start 11/18/20 at 13:00; Stop 11/18/20 at 13:01; Status DC Insulin Human Regular (HumuLIN R VIAL) 10 unit 1X ONCE IV Last administered on 11/18/20at 13:08; Start 11/18/20 at 13:00; Stop 11/18/20 at 13:01; Status DC Sodium Bicarbonate (Sodium Bicarb Adult 8.4% Syr) 50 meq 1X ONCE IV Last administered on 11/18/20at 13:07; Start 11/18/20 at 13:00; Stop 11/18/20 at 13:01; Status DC Ondansetron HCl (Zofran) 4 mg PRN Q8HRS PRN IV NAUSEA/VOMITING; Start 11/18/20 at 13:15; Stop 11/19/20 at 13:14; Status DC Morphine Sulfate (Morphine Sulfate) 4 mg PRN Q2HR PRN IV PAIN Last administered on 11/19/20at 12:44; Start 11/18/20 at 13:15; Stop 11/19/20 at 13:14; Status DC Acetaminophen (Tylenol) 500 mg PRN Q6HRS PRN PO pain or fever; Start 11/18/20 at 18:00 Albuterol Sulfate (Ventolin Neb Soln) 2.5 mg PRN Q2HRS PRN NEB SOB / WHILE AW SERGIO; Start 11/18/20 at 18:00 Ferrous Sulfate (Feosol) 325 mg BIDWMEALS PO Last administered on 11/22/20at 19:00; Start 11/19/20 at 08:00 Oxycodone/ Acetaminophen (Percocet 5/325) 1 tab QIDPRN PRN PO PAIN Last administered on 11/22/20at 19:00; Start 11/18/20 at 18:00 Pantoprazole Sodium (Protonix) 40 mg DAILYAC PO Last administered on 11/22/20at 13:34; Start 11/19/20 at 07:30 Sodium Chloride 1,000 ml @ 1,000 mls/hr Q1H PRN IV hypotension; Start 11/19/20 at 08:45; Stop 11/19/20 at 14:44; Status DC Albumin Human 200 ml @ 200 mls/hr 1X PRN PRN IV Hypotension; Start 11/19/20 at 08:45; Stop 11/19/20 at 14:44; Status DC Diphenhydramine HCl (Benadryl) 25 mg 1X PRN PRN IV ITCHING; Start 11/19/20 at 08:45; Stop 11/20/20 at 08:44; Status DC Diphenhydramine HCl (Benadryl) 25 mg 1X PRN PRN IV ITCHING; Start 11/19/20 at 08:45; Stop 11/20/20 at 08:44; Status DC Sodium Chloride 1,000 ml @ 400 mls/hr Q2H30M PRN IV PATENCY; Start 11/19/20 at 08:45; Stop 11/19/20 at 20:44; Status DC Info (PHARMACY MONITORING -- do not chart) 1 each PRN DAILY PRN MC SEE COMMENTS; Start 11/19/20 at 08:45; Stop 11/22/20 at 07:34; Status DC Diclofenac Sodium (Voltaren) 1 mikey BID TP Last administered on 11/22/20at 13:35; Start 11/19/20 at 12:00 Nystatin (Nystop) 1 mikey BID TP Last administered on 11/22/20at 20:26; Start 11/19/20 at 21:00 Magnesium Sulfate 50 ml @ 25 mls/hr PRN DAILY PRN IV for Mag < 1.7 on am labs; Start 11/20/20 at 08:45 Darbepoetin Bolivar (ARANESP for DIALYSIS PTS) 60 mcg Paul SQ Last administered on 11/20/20at 20:56; Start 11/20/20 at 21:00 Sodium Chloride 1,000 ml @ 1,000 mls/hr Q1H PRN IV hypotension; Start 11/22/20 at 07:30; Stop 11/22/20 at 13:29; Status DC Albumin Human 200 ml @ 200 mls/hr 1X PRN PRN IV Hypotension; Start 11/22/20 at 07:30; Stop 11/22/20 at 13:29; Status DC Sodium Chloride 1,000 ml @ 400 mls/hr Q2H30M PRN IV PATENCY; Start 11/22/20 at 07:30; Stop 11/22/20 at 19:29; Status DC Info (PHARMACY MONITORING -- do not chart) 1 each PRN DAILY PRN MC SEE COMMENTS; Start 11/22/20 at 07:30; Stop 11/22/20 at 07:34; Status DC Info (PHARMACY MONITORING -- do not chart) 1 each PRN DAILY PRN MC SEE COMMENTS; Start 11/22/20 at 07:30 Active Scripts Active Nyamyc (Nystatin) 15 Gm Powder 1 Mikey TP BID 14 Days [Diclofenac Sodium] 100 GM Gel..gram. 1 Mikey TP BID 14 Days Percocet 5-325 Mg Tablet (Oxycodone/Acetaminophen) 1 Each Tablet 1 Tab PO QIDPRN PRN MDD 4 Tablet(s) 2 Days Feosol (Ferrous Sulfate) 325 Mg Tablet 325 Mg PO BIDWMEALS 60 Days Proair Hfa (Albuterol Sulfate) 8.5 Gm Hfa.aer.ad 2.5 Mg NEB PRN Q2HRS PRN 30 Days Pantoprazole Sodium (Pantoprazole Sodium) 40 Mg Tablet.dr 40 Mg PO DAILYAC 30 Days Reported Carvedilol 25 Mg Tablet 25 Mg PO BIDWMEALS Folic Acid 0.4 Mg Tablet 0.4 Mg PO DAILY Acetaminophen 500 Mg Tablet 1 Tab PO PRN Q6HRS PRN 15 Days Vitals/I & O Vital Sign - Last 24 Hours 11/22/20 11/22/20 11/22/20 11/22/20 10:05 13:35 15:00 19:00 Temp 98.4 98.4 Pulse 81 Resp 18 B/P (MAP) 146/61 (89) Pulse Ox 100 O2 Delivery Room Air Room Air Room Air Room Air 11/22/20 11/22/20 11/22/20 11/23/20 19:00 20:25 23:03 03:00 Temp 97.6 98.8 99.0 97.6 98.8 99.0 Pulse 92 90 Resp 18 20 18 B/P (MAP) 177/67 (103) 157/55 (89) 136/44 (74) Pulse Ox 99 95 100 O2 Delivery Room Air Room Air Room Air 11/23/20 07:00 Temp 98.0 98.0 Pulse 82 Resp 18 B/P (MAP) 134/38 (70) Pulse Ox 98 O2 Delivery Room Air Intake and Output 11/22/20 11/22/20 11/23/20 15:00 23:00 07:00 Intake Total 240 ml Output Total 0 ml 0 ml Balance 240 ml 0 ml Justicifation of Admission Dx: Justifications for Admission: Justification of Admission Dx: Yes Acute Renal Failure: Serum Cr > 4mg/dL Chronic Renal Failure: Hemodynamic Instability Sepsis: Infection ASHIA MOSS MD Nov 23, 2020 08:23
--- NOTE | 2020-11-23 08:45 | PDOC ---
PROGRESS NOTES Date of Service DATE: 11/23/20 TIME: 08:43 Subjective Subjective No new complaints. Objective Objective Vital Signs Date Time Temp Pulse Resp B/P (MAP) Pulse Ox O2 Delivery O2 Flow Rate FiO2 11/23/20 07:00 98.0 82 18 134/38 (70) 98 Room Air 98.0 Intake and Output 11/23/20 07:00 Intake Total 240 ml Output Total 0 ml Balance 240 ml Intake Oral 240 ml Output Urine Total 0 ml # Bowel Movements 1 Physical Exam Physical Exam She is alert,supine in bed and eating breakfast and she continues with stiffness of her knees. Assessment Assessment Problems Medical Problems: (1) Back pain Status: Acute (2) ESRD (end stage renal disease) on dialysis Status: Chronic (3) Knee pain, bilateral Status: Acute (4) Pelvic pain Status: Acute (5) Weakness Status: Acute Plan Plan of Care Agree with plans for SNF transfer. Comment Review of Relevant I have reviewed the following items tamika (where applicable) has been applied. Labs Laboratory Tests Test 11/21/20 11:37 11/21/20 16:35 11/21/20 22:15 11/22/20 06:45 Glucose (Fingerstick) 131 mg/dL (70-99) 119 mg/dL (70-99) 122 mg/dL (70-99) Hemoglobin 8.1 g/dL (12.0-15.5) Hematocrit 24.6 % (36.0-47.0) Mean Corpuscular Hemoglobin Concent 33 g/dL (31-37) Sodium Level 135 mmol/L (136-145) Potassium Level 5.2 mmol/L (3.5-5.1) Chloride Level 97 mmol/L (98-107) Carbon Dioxide Level 27 mmol/L (21-32) Anion Gap 11 (6-14) Blood Urea Nitrogen 56 mg/dL (7-20) Creatinine 8.3 mg/dL (0.6-1.0) Estimated GFR (Cockcroft-Gault) 5.8 Glucose Level 97 mg/dL (70-99) Calcium Level 8.9 mg/dL (8.5-10.1) Phosphorus Level 5.6 mg/dL (2.6-4.7) Magnesium Level 2.1 mg/dL (1.8-2.4) Albumin 2.4 g/dL (3.4-5.0) Test 11/22/20 12:14 11/22/20 17:14 11/22/20 20:26 11/23/20 06:40 Glucose (Fingerstick) 82 mg/dL (70-99) 110 mg/dL (70-99) 139 mg/dL (70-99) Sodium Level 138 mmol/L (136-145) Potassium Level 4.1 mmol/L (3.5-5.1) Chloride Level 99 mmol/L (98-107) Carbon Dioxide Level 29 mmol/L (21-32) Anion Gap 10 (6-14) Blood Urea Nitrogen 33 mg/dL (7-20) Creatinine 5.5 mg/dL (0.6-1.0) Estimated GFR (Cockcroft-Gault) 9.4 Glucose Level 94 mg/dL (70-99) Calcium Level 9.0 mg/dL (8.5-10.1) Phosphorus Level 4.2 mg/dL (2.6-4.7) Magnesium Level 2.0 mg/dL (1.8-2.4) Albumin 2.3 g/dL (3.4-5.0) Test 11/23/20 08:15 Glucose (Fingerstick) 98 mg/dL (70-99) Laboratory Tests Test 11/22/20 12:14 11/22/20 17:14 11/22/20 20:26 11/23/20 06:40 Glucose (Fingerstick) 82 mg/dL (70-99) 110 mg/dL (70-99) 139 mg/dL (70-99) Sodium Level 138 mmol/L (136-145) Potassium Level 4.1 mmol/L (3.5-5.1) Chloride Level 99 mmol/L (98-107) Carbon Dioxide Level 29 mmol/L (21-32) Anion Gap 10 (6-14) Blood Urea Nitrogen 33 mg/dL (7-20) Creatinine 5.5 mg/dL (0.6-1.0) Estimated GFR (Cockcroft-Gault) 9.4 Glucose Level 94 mg/dL (70-99) Calcium Level 9.0 mg/dL (8.5-10.1) Phosphorus Level 4.2 mg/dL (2.6-4.7) Magnesium Level 2.0 mg/dL (1.8-2.4) Albumin 2.3 g/dL (3.4-5.0) Test 11/23/20 08:15 Glucose (Fingerstick) 98 mg/dL (70-99) Medications Current Medications Morphine Sulfate (Morphine Sulfate) 4 mg 1X ONCE IV Last administered on 11/18/20at 12:31; Start 11/18/20 at 12:00; Stop 11/18/20 at 12:02; Status DC Dextrose (Dextrose 50%-Water Syringe) 25 gm 1X ONCE IV Last administered on 11/18/20at 13:07; Start 11/18/20 at 13:00; Stop 11/18/20 at 13:01; Status DC Insulin Human Regular (HumuLIN R VIAL) 10 unit 1X ONCE IV Last administered on 11/18/20at 13:08; Start 11/18/20 at 13:00; Stop 11/18/20 at 13:01; Status DC Sodium Bicarbonate (Sodium Bicarb Adult 8.4% Syr) 50 meq 1X ONCE IV Last administered on 11/18/20at 13:07; Start 11/18/20 at 13:00; Stop 11/18/20 at 13:01; Status DC Ondansetron HCl (Zofran) 4 mg PRN Q8HRS PRN IV NAUSEA/VOMITING; Start 11/18/20 at 13:15; Stop 11/19/20 at 13:14; Status DC Morphine Sulfate (Morphine Sulfate) 4 mg PRN Q2HR PRN IV PAIN Last administered on 11/19/20at 12:44; Start 11/18/20 at 13:15; Stop 11/19/20 at 13:14; Status DC Acetaminophen (Tylenol) 500 mg PRN Q6HRS PRN PO pain or fever; Start 11/18/20 at 18:00 Albuterol Sulfate (Ventolin Neb Soln) 2.5 mg PRN Q2HRS PRN NEB SOB / WHILE AWAKE; Start 11/18/20 at 18:00 Ferrous Sulfate (Feosol) 325 mg BIDWMEALS PO Last administered on 11/22/20at 19:00; Start 11/19/20 at 08:00 Oxycodone/ Acetaminophen (Percocet 5/325) 1 tab QIDPRN PRN PO PAIN Last administered on 11/22/20at 19:00; Start 11/18/20 at 18:00 Pantoprazole Sodium (Protonix) 40 mg DAILYAC PO Last administered on 11/22/20at 13:34; Start 11/19/20 at 07:30 Sodium Chloride 1,000 ml @ 1,000 mls/hr Q1H PRN IV hypotension; Start 11/19/20 at 08:45; Stop 11/19/20 at 14:44; Status DC Albumin Human 200 ml @ 200 mls/hr 1X PRN PRN IV Hypotension; Start 11/19/20 at 08:45; Stop 11/19/20 at 14:44; Status DC Diphenhydramine HCl (Benadryl) 25 mg 1X PRN PRN IV ITCHING; Start 11/19/20 at 08:45; Stop 11/20/20 at 08:44; Status DC Diphenhydramine HCl (Benadryl) 25 mg 1X PRN PRN IV ITCHING; Start 11/19/20 at 08:45; Stop 11/20/20 at 08:44; Status DC Sodium Chloride 1,000 ml @ 400 mls/hr Q2H30M PRN IV PATENCY; Start 11/19/20 at 08:45; Stop 11/19/20 at 20:44; Status DC Info (PHARMACY MONITORING -- do not chart) 1 each PRN DAILY PRN MC SEE COMMENTS; Start 11/19/20 at 08:45; Stop 11/22/20 at 07:34; Status DC Diclofenac Sodium (Voltaren) 1 mikey BID TP Last administered on 11/22/20at 13:35; Start 11/19/20 at 12:00 Nystatin (Nystop) 1 mikey BID TP Last administered on 11/22/20at 20:26; Start 11/19/20 at 21:00 Magnesium Sulfate 50 ml @ 25 mls/hr PRN DAILY PRN IV for Mag < 1.7 on am labs; Start 11/20/20 at 08:45 Darbepoetin Bolivar (ARANESP for DIALYSIS PTS) 60 mcg Paul SQ Last administered on 11/20/20at 20:56; Start 11/20/20 at 21:00 Sodium Chloride 1,000 ml @ 1,000 mls/hr Q1H PRN IV hypotension; Start 11/22/20 at 07:30; Stop 11/22/20 at 13:29; Status DC Albumin Human 200 ml @ 200 mls/hr 1X PRN PRN IV Hypotension; Start 11/22/20 at 07:30; Stop 11/22/20 at 13:29; Status DC Sodium Chloride 1,000 ml @ 400 mls/hr Q2H30M PRN IV PATENCY; Start 11/22/20 at 07:30; Stop 11/22/20 at 19:29; Status DC Info (PHARMACY MONITORING -- do not chart) 1 each PRN DAILY PRN MC SEE COMMENTS; Start 11/22/20 at 07:30; Stop 11/22/20 at 07:34; Status DC Info (PHARMACY MONITORING -- do not chart) 1 each PRN DAILY PRN MC SEE COMMENTS; Start 11/22/20 at 07:30 Active Scripts Active Nyamyc (Nystatin) 15 Gm Powder 1 Mikey TP BID 14 Days [Diclofenac Sodium] 100 GM Gel..gram. 1 Mikey TP BID 14 Days Percocet 5-325 Mg Tablet (Oxycodone/Acetaminophen) 1 Each Tablet 1 Tab PO QIDPRN PRN MDD 4 Tablet(s) 2 Days Feosol (Ferrous Sulfate) 325 Mg Tablet 325 Mg PO BIDWMEALS 60 Days Proair Hfa (Albuterol Sulfate) 8.5 Gm Hfa.aer.ad 2.5 Mg NEB PRN Q2HRS PRN 30 Days Pantoprazole Sodium (Pantoprazole Sodium) 40 Mg Tablet.dr 40 Mg PO DAILYAC 30 Days Reported Carvedilol 25 Mg Tablet 25 Mg PO BIDWMEALS Folic Acid 0.4 Mg Tablet 0.4 Mg PO DAILY Acetaminophen 500 Mg Tablet 1 Tab PO PRN Q6HRS PRN 15 Days Vitals/I & O Vital Sign - Last 24 Hours 11/22/20 11/22/20 11/22/20 11/22/20 10:05 13:35 15:00 19:00 Temp 98.4 98.4 Pulse 81 Resp 18 B/P (MAP) 146/61 (89) Pulse Ox 100 O2 Delivery Room Air Room Air Room Air Room Air 11/22/20 11/22/20 11/22/20 11/23/20 19:00 20:25 23:03 03:00 Temp 97.6 98.8 99.0 97.6 98.8 99.0 Pulse 92 90 Resp 18 20 18 B/P (MAP) 177/67 (103) 157/55 (89) 136/44 (74) Pulse Ox 99 95 100 O2 Delivery Room Air Room Air Room Air 11/23/20 07:00 Temp 98.0 98.0 Pulse 82 Resp 18 B/P (MAP) 134/38 (70) Pulse Ox 98 O2 Delivery Room Air Intake and Output 11/22/20 11/22/20 11/23/20 15:00 23:00 07:00 Intake Total 240 ml Output Total 0 ml 0 ml Balance 240 ml 0 ml Justifications for Admission Other Justification Hyperkalemia, hemodialysis SUSY ESTRELLA MD Nov 23, 2020 08:45
[2020-11-23] MEDS: NYSTATIN TOPICAL POWDER 15GM BOTTLE. TP SCH ×2 (09:28→21:00)
[2020-11-23] MEDS: DICLOFENAC SODIUM 1% TOPICAL GEL 100GM TUBE. TP SCH ×2 (09:28→21:00)
[2020-11-23] MEDS: PANTOPRAZOLE 40 MG TABLET.DR. PO SCH (09:29)
[2020-11-23] MEDS: oxyCODONE/APAP 5/325 1 TAB TABLET PO PRN ×2 (09:29→18:22)
[2020-11-23] MEDS: FERROUS SULFATE 325 MG TABLET. PO SCH ×2 (09:29→18:18)
--- NOTE | 2020-11-23 09:39 | SNU/HH DC ---
DISCHARGE ORDERS DISCHARGE INFORMATION: DISCHARGE DATE: Nov 23, 2020 FINAL DIAGNOSIS Problems Medical Problems: (1) Back pain Status: Acute (2) ESRD (end stage renal disease) on dialysis Status: Chronic (3) Knee pain, bilateral Status: Acute (4) Pelvic pain Status: Acute (5) Weakness Status: Acute CONDITION ON DISCHARGE: Stable CODE STATUS: Code Status: Full SHELTER: SNF STAY <30 DAYS: Yes HOSPICE: HOSPICE: No HOSPICE EVAL & TREAT: No LTAC: ADMIT TO LTAC: No POST DISCHARGE ORDERS: ACTIVITY ORDERS: No restrictions, Resume previous activity, Activity as tolerated WEIGHT BEARING STATUS: No restrictions, Full weight bearing, As tolerated DIET AFTER DISCHARGE: Renal WOUND/INCISION CARE: No wound care needed CHECKS AFTER DISCHARGE: CHECKS AFTER DISCHARGE: Check blood press - daily, Check blood sugar, ac/hs, Check your Temp as needed, Weigh Yourself Daily FOLLOW-UP: PHYSICIAN FOLLOW-UP: nephrology 1 day TREATMENT/EQUIPMENT ORDERS: ADAPTIVE EQUIPMENT NEEDED: None, Commode, Front wheeled walker Physical Therapy For: Evalulation/Treatment Occupational Therapy For: Evaluation/Treatment Speech Language Pathology For: Evaluation/Treatment DISCHARGE MEDICATIONS: Home Meds Active Scripts Nystatin (NYAMYC) 15 Gm Powder, 1 DAWNA TP BID for RASH for 14 Days, #30 MISC Prov:ASHIA MOSS MD 11/21/20 [Diclofenac Sodium 1% Topical] 100 GM GEL..GRAM. No Conflict Check, 1 DAWNA TP BID for TOPICAL PAIN for 14 Days, #28 EACH Prov:ASHIA MOSS MD 11/21/20 Oxycodone/Apap 5-325 (PERCOCET 5-325 MG TABLET ) 1 Each Tablet, 1 TAB PO QIDPRN PRN for PAIN MDD 4 Tablet(s) for 2 Days, #6 TAB 0 Refills Prov:CORY HARPER DO 10/29/20 Ferrous Sulfate (FEOSOL) 325 Mg Tablet, 325 MG PO BIDWMEALS for anemia for 60 Days, #120 TAB Prov:BERNARDO NG MD 03/08/20 Albuterol Sulfate (Proair Hfa) 8.5 Gm Hfa.aer.ad, 2.5 MG NEB PRN Q2HRS PRN for SOB / WHILE AWAKE for 30 Days, #30 INHALER Prov:ASHIA MOSS MD 09/27/19 Pantoprazole Sodium (PANTOPRAZOLE SODIUM ) 40 Mg Tablet.dr, 40 MG PO DAILYAC for Bleeding ulcer for 30 Days, #30 TAB.SR 5 Refills Prov:MELY OLVERA MD 07/04/19 Reported Medications Carvedilol (CARVEDILOL) 25 Mg Tablet, 25 MG PO BIDWMEALS for CARDIAC, TAB 03/05/20 Folic Acid (FOLIC ACID) 0.4 Mg Tablet, 0.4 MG PO DAILY for supplement, TAB 03/05/20 Acetaminophen (ACETAMINOPHEN) 500 Mg Tablet, 1 TAB PO PRN Q6HRS PRN for pain or fever for 15 Days, #60 TAB 0 Refills 12/30/19 Discontinued Reported Medications Hydrocodone Bit/Acetaminophen (HYDROCODONE-APAP 10-325 ) 1 Tab Tablet, 1 TAB PO PRN Q6HRS PRN for PAIN, TAB 0 Refills 07/14/20 ASHIA MOSS MD Nov 23, 2020 09:39
[2020-11-23 11:00] VITALS: BP 148/46
--- NOTE | 2020-11-23 11:29 | NUR ---
ANITA following for discharge planning. Spoke with RN and reviewed chart. Discharge orders phoned and faxed to Anne Marie at [facility] awaiting COVID result as this is needed before they will accept this pt. ANITA following. Addendum: 11/23/20 at 1628 by MANISH [facility]ARD COVID result came back negative. ANITA faxed and attempted to contact admission at [facility] to see if they could admit pt this evening. No answer. Discharge held for 11/24 to [facility].
--- NOTE | 2020-11-23 13:37 | PDOC ---
Renal-Progress Notes Subjective Notes Notes NO NEW COMPLAINTS History of Present Illness Hx of present illness STABLE Vitals Vitals Vital Signs Date Time Temp Pulse Resp B/P (MAP) Pulse Ox O2 Delivery O2 Flow Rate FiO2 11/23/20 11:00 97.8 84 18 148/46 (80) 98 Room Air 97.8 Weight Weight [ ] I.O. Intake and Output Intake and Output 11/23/20 07:00 Intake Total 240 ml Output Total 0 ml Balance 240 ml Intake Oral 240 ml Output Urine Total 0 ml # Bowel Movements 1 Labs Labs Laboratory Tests Test 11/22/20 17:14 11/22/20 20:26 11/23/20 06:40 11/23/20 08:15 Glucose (Fingerstick) 110 mg/dL (70-99) 139 mg/dL (70-99) 98 mg/dL (70-99) Sodium Level 138 mmol/L (136-145) Potassium Level 4.1 mmol/L (3.5-5.1) Chloride Level 99 mmol/L (98-107) Carbon Dioxide Level 29 mmol/L (21-32) Anion Gap 10 (6-14) Blood Urea Nitrogen 33 mg/dL (7-20) Creatinine 5.5 mg/dL (0.6-1.0) Estimated GFR (Cockcroft-Gault) 9.4 Glucose Level 94 mg/dL (70-99) Calcium Level 9.0 mg/dL (8.5-10.1) Phosphorus Level 4.2 mg/dL (2.6-4.7) Magnesium Level 2.0 mg/dL (1.8-2.4) Albumin 2.3 g/dL (3.4-5.0) Test 11/23/20 12:29 Glucose (Fingerstick) 130 mg/dL (70-99) Review of Systems Constitutional: yes: weakness, alert, oriented Ears/Nose/Throat: Yes: no symptom reported Eyes: Yes: no symptom reported Pulmonary: Yes no symptom reported Cardiovascular: Yes no symptom reported Gastrointestional: Yes: no symptom reported Genitourinary: Yes: no symptom reported Musculoskeletal: Yes: no symptom reported Skin: Yes no symptom reported Psychiatric/Neurological: Yes: no symptom reported Physical Exam General Appearance: no apparent distress, febrile Heart: S1S2 Abdomen: soft, bowel sounds present Genitourinary: bladder flat Extremities: pulses present, atrophy Neurology: alert Assessment Assessment IMP ESRD ANEMIA DM II HTN NON COMPLIANCE PLAN HD TTS D/C PLANS NOTED ENC COMPLIANCE HAS RECEIVED LINNEA SAVAGE MD Nov 23, 2020 13:37
[2020-11-23 15:00] VITALS: BP 138/51
[2020-11-23 19:00] VITALS: BP 163/66
[2020-11-23 23:00] VITALS: BP 138/81
[2020-11-24] MEDS: oxyCODONE/APAP 5/325 1 TAB TABLET PO PRN ×2 (01:47→12:06)
[2020-11-24 03:00] VITALS: BP 135/53
[2020-11-24 07:00] VITALS: BP 153/75
[2020-11-24] MEDS ORDERED: LIDOCAINE 1% PF 2 ML VIAL. INJ PRN (07:15)
[2020-11-24] MEDS ORDERED: ALBUMIN HUMAN 25% 200 ML IV PRN (07:15)
[2020-11-24] MEDS ORDERED: DIALYSIS PATIENT. MC PRN ×2 (07:15)
[2020-11-24] MEDS ORDERED: IV NORMAL SALINE 1000ML BAG 1,000 ML IV PRN ×2 (07:15)
[2020-11-24] MEDS: DICLOFENAC SODIUM 1% TOPICAL GEL 100GM TUBE. TP SCH (09:00)
[2020-11-24] MEDS: NYSTATIN TOPICAL POWDER 15GM BOTTLE. TP SCH (09:00)
--- NOTE | 2020-11-24 09:09 | PDOC ---
PROGRESS NOTES Date of Service: DATE: 11/24/20 TIME: 09:08 Chief Complaint Chief Complaint -hospital summary, [facility] date of admit 11-16-20 date of discharge 11-24-20 consults nephrology for dialysis, DR ESTRELLA, CAREER [employer] COMPLICATION NONE FOLLOW UP DR SHULTZ TOMORROW, DIALYSIS d/c plan to home with home health 11-21, transfused , family refused to d/c home 11-22 PATIENT REFUSED TO GO HOME YESTERDAY, AGREES WITH D/C TODAY, now needs SNF BED DUE TO SELF CARE DEFICITS, d/c delayed for placement admitted with back pain, knee pain, pelvic pain after a fall consult Dr. Estrella from physiatry, he has seen her before for OA and knee pain OK TO D/C WITH HOME HEALTH 11-21 , FAMILY feels this is unsafe plan, needs snf bed ESRD, fluid overload, hyperkalemia, needs HD, missed HD anemia, chronic with symptomatic features weakenss and debility high fall risk, pt/ot poor compliance this makes 13 hospitalizations in the past 12 months. admit morbid obesity, weight loss education provided ANEMIA, TRANSFUSED TODAY ONE UNIT 11/21 D/C PLANNING 36 MIN History of Present Illness History of Present Illness Ms. Fernandez is a 65 year old female who was brought here by EMS from home due to knee pain, pelvic pain after she fell in the bathroom yesterday. She seems to have many admits for similar problems;. I saw her after the ER and she was comfortable and lethargic with pain meds on and wanted to rest. Patient denies any head or neck injury. Patient says she had chronic low back pain, and this is much worse after the fall yesterday and she was unable to make it to HD due to pain. . Patient denies any bowel or bladder incontinence. Patient has a long history end-stage renal failure, and Dr. Shultz is her renal docotr. movement makes her pain worse, pain was 7.10 11/19: Patient seen and evaluated. She refused PT today. Discussed with patient that our goal is to try to get her stronger to where she is able to ambulate with a walker at home. Told patient she needs to participate with PT tomorrow and patient understood. Discussed with Dr. Estrella Will provide patient a walker at time of discharge. Plan is for SNF, barring PT eval and recommendations. 11/20: Patient seen and evaluated. Morning labs pending. Discussed with patient about participating with physical therapy today. Plan is still for SNF next week once PT has provided their assessment and evaluation. 11/24 [facility] Vitals Vitals Vital Signs Date Time Temp Pulse Resp B/P (MAP) Pulse Ox O2 Delivery O2 Flow Rate FiO2 11/24/20 07:00 98.1 97 18 153/75 (101) 98 Room Air 98.1 Physical Exam General: Alert, Oriented X3, Cooperative, No acute distress, Other Heart: Regular rate, Normal S1 Lungs: Clear Abdomen: Normal bowel sounds, Soft, No tenderness Extremities: No clubbing, No cyanosis, No edema, Normal pulses Skin: No rashes, No significant lesion Labs LABS Laboratory Tests Test 11/23/20 12:29 11/23/20 16:51 11/24/20 07:18 Glucose (Fingerstick) 130 mg/dL (70-99) 157 mg/dL (70-99) 105 mg/dL (70-99) Assessment and Plan Assessmemt and Plan Problems Medical Problems: (1) Back pain Status: Acute (2) ESRD (end stage renal disease) on dialysis Status: Chronic (3) Knee pain, bilateral Status: Acute (4) Pelvic pain Status: Acute (5) Weakness Status: Acute Comment Review of Relevant I have reviewed the following items tamika (where applicable) has been applied. Labs Laboratory Tests Test 11/22/20 12:14 11/22/20 13:00 11/22/20 17:14 11/22/20 20:26 Glucose (Fingerstick) 82 mg/dL (70-99) 110 mg/dL (70-99) 139 mg/dL (70-99) Coronavirus (PCR) Not detected (Not Detected) Test 11/23/20 06:40 11/23/20 08:15 11/23/20 12:29 11/23/20 16:51 Sodium Level 138 mmol/L (136-145) Potassium Level 4.1 mmol/L (3.5-5.1) Chloride Level 99 mmol/L (98-107) Carbon Dioxide Level 29 mmol/L (21-32) Anion Gap 10 (6-14) Blood Urea Nitrogen 33 mg/dL (7-20) Creatinine 5.5 mg/dL (0.6-1.0) Estimated GFR (Cockcroft-Gault) 9.4 Glucose Level 94 mg/dL (70-99) Calcium Level 9.0 mg/dL (8.5-10.1) Phosphorus Level 4.2 mg/dL (2.6-4.7) Magnesium Level 2.0 mg/dL (1.8-2.4) Albumin 2.3 g/dL (3.4-5.0) Glucose (Fingerstick) 98 mg/dL (70-99) 130 mg/dL (70-99) 157 mg/dL (70-99) Test 11/24/20 07:18 Glucose (Fingerstick) 105 mg/dL (70-99) Laboratory Tests Test 11/23/20 12:29 11/23/20 16:51 11/24/20 07:18 Glucose (Fingerstick) 130 mg/dL (70-99) 157 mg/dL (70-99) 105 mg/dL (70-99) Medications Current Medications Morphine Sulfate (Morphine Sulfate) 4 mg 1X ONCE IV Last administered on 11/18/20at 12:31; Start 11/18/20 at 12:00; Stop 11/18/20 at 12:02; Status DC Dextrose (Dextrose 50%-Water Syringe) 25 gm 1X ONCE IV Last administered on 11/18/20at 13:07; Start 11/18/20 at 13:00; Stop 11/18/20 at 13:01; Status DC Insulin Human Regular (HumuLIN R VIAL) 10 unit 1X ONCE IV Last administered on 11/18/20at 13:08; Start 11/18/20 at 13:00; Stop 11/18/20 at 13:01; Status DC Sodium Bicarbonate (Sodium Bicarb Adult 8.4% Syr) 50 meq 1X ONCE IV Last administered on 11/18/20at 13:07; Start 11/18/20 at 13:00; Stop 11/18/20 at 13:01; Status DC Ondansetron HCl (Zofran) 4 mg PRN Q8HRS PRN IV NAUSEA/VOMITING; Start 11/18/20 at 13:15; Stop 11/19/20 at 13:14; Status DC Morphine Sulfate (Morphine Sulfate) 4 mg PRN Q2HR PRN IV PAIN Last administered on 11/19/20at 12:44; Start 11/18/20 at 13:15; Stop 11/19/20 at 13:14; Status DC Acetaminophen (Tylenol) 500 mg PRN Q6HRS PRN PO mild pain or fever; Start 11/18/20 at 18:00 Albuterol Sulfate (Ventolin Neb Soln) 2.5 mg PRN Q2HRS PRN NEB SOB / WHILE AWAKE; Start 11/18/20 at 18:00 Ferrous Sulfate (Feosol) 325 mg BIDWMEALS PO Last administered on 11/23/20at 18:18; Start 11/19/20 at 08:00 Oxycodone/ Acetaminophen (Percocet 5/325) 1 tab QIDPRN PRN PO MODERATE-SEVERE PAIN Last administered on 11/24/20at 01:47; Start 11/18/20 at 18:00 Pantoprazole Sodium (Protonix) 40 mg DAILYAC PO Last administered on 11/23/20at 09:29; Start 11/19/20 at 07:30 Sodium Chloride 1,000 ml @ 1,000 mls/hr Q1H PRN IV hypotension; Start 11/19/20 at 08:45; Stop 11/19/20 at 14:44; Status DC Albumin Human 200 ml @ 200 mls/hr 1X PRN PRN IV Hypotension; Start 11/19/20 at 08:45; Stop 11/19/20 at 14:44; Status DC Diphenhydramine HCl (Benadryl) 25 mg 1X PRN PRN IV ITCHING; Start 11/19/20 at 08:45; Stop 11/20/20 at 08:44; Status DC Diphenhydramine HCl (Benadryl) 25 mg 1X PRN PRN IV ITCHING; Start 11/19/20 at 08:45; Stop 11/20/20 at 08:44; Status DC Sodium Chloride 1,000 ml @ 400 mls/hr Q2H30M PRN IV PATENCY; Start 11/19/20 at 08:45; Stop 11/19/20 at 20:44; Status DC Info (PHARMACY MONITORING -- do not chart) 1 each PRN DAILY PRN MC SEE COMMENTS; Start 11/19/20 at 08:45; Stop 11/22/20 at 07:34; Status DC Diclofenac Sodium (Voltaren) 1 mikey BID TP Last administered on 11/23/20at 21:00; Start 11/19/20 at 12:00 Nystatin (Nystop) 1 mikey BID TP Last administered on 11/23/20at 21:00; Start 11/19/20 at 21:00 Magnesium Sulfate 50 ml @ 25 mls/hr PRN DAILY PRN IV for Mag < 1.7 on am labs; Start 11/20/20 at 08:45 Darbepoetin Bolivar (ARANESP for DIALYSIS PTS) 60 mcg Paul SQ Last administered on 11/20/20at 20:56; Start 11/20/20 at 21:00 Sodium Chloride 1,000 ml @ 1,000 mls/hr Q1H PRN IV hypotension; Start 11/22/20 at 07:30; Stop 11/22/20 at 13:29; Status DC Albumin Human 200 ml @ 200 mls/hr 1X PRN PRN IV Hypotension; Start 11/22/20 at 07:30; Stop 11/22/20 at 13:29; Status DC Sodium Chloride 1,000 ml @ 400 mls/hr Q2H30M PRN IV PATENCY; Start 11/22/20 at 07:30; Stop 11/22/20 at 19:29; Status DC Info (PHARMACY MONITORING -- do not chart) 1 each PRN DAILY PRN MC SEE COMMENTS; Start 11/22/20 at 07:30; Stop 11/22/20 at 07:34; Status DC Info (PHARMACY MONITORING -- do not chart) 1 each PRN DAILY PRN MC SEE COMMENTS; Start 11/22/20 at 07:30 Sodium Chloride 1,000 ml @ 1,000 mls/hr Q1H PRN IV hypotension; Start 11/24/20 at 07:15; Stop 11/24/20 at 13:14 Albumin Human 200 ml @ 200 mls/hr 1X PRN PRN IV Hypotension; Start 11/24/20 at 07:15; Stop 11/24/20 at 13:14 Sodium Chloride 1,000 ml @ 400 mls/hr Q2H30M PRN IV PATENCY; Start 11/24/20 at 07:15; Stop 11/24/20 at 19:14 Lidocaine HCl (Xylocaine-Mpf 1% 2ml Vial) 2 ml 1X PRN PRN INJ FOR DIALYSIS; Start 11/24/20 at 07:15; Stop 11/25/20 at 07:14 Info (PHARMACY MONITORING -- do not chart) 1 each PRN DAILY PRN MC SEE COMMENTS; Start 11/24/20 at 07:15 Info (PHARMACY MONITORING -- do not chart) 1 each PRN DAILY PRN MC SEE COMMENTS; Start 11/24/20 at 07:15; Status UNV Active Scripts Active Nyamyc (Nystatin) 15 Gm Powder 1 Mikey TP BID 14 Days [Diclofenac Sodium] 100 GM Gel..gram. 1 Mikey TP BID 14 Days Percocet 5-325 Mg Tablet (Oxycodone/Acetaminophen) 1 Each Tablet 1 Tab PO QIDPRN PRN MDD 4 Tablet(s) 2 Days Feosol (Ferrous Sulfate) 325 Mg Tablet 325 Mg PO BIDWMEALS 60 Days Proair Hfa (Albuterol Sulfate) 8.5 Gm Hfa.aer.ad 2.5 Mg NEB PRN Q2HRS PRN 30 Days Pantoprazole Sodium (Pantoprazole Sodium) 40 Mg Tablet.dr 40 Mg PO DAILYAC 30 Days Reported Carvedilol 25 Mg Tablet 25 Mg PO BIDWMEALS Folic Acid 0.4 Mg Tablet 0.4 Mg PO DAILY Acetaminophen 500 Mg Tablet 1 Tab PO PRN Q6HRS PRN 15 Days Vitals/I & O Vital Sign - Last 24 Hours 11/23/20 11/23/20 11/23/20 11/23/20 09:29 10:30 11:00 15:00 Temp 97.8 98.0 97.8 98.0 Pulse 84 86 Resp 19 19 18 18 B/P (MAP) 148/46 (80) 138/51 (80) Pulse Ox 94 93 98 98 O2 Delivery Room Air Room Air Room Air Room Air 11/23/20 11/23/20 11/23/20 11/23/20 18:22 19:00 20:00 21:00 Temp 98.2 98.2 Pulse 87 Resp 19 22 B/P (MAP) 163/66 (98) Pulse Ox 93 97 93 O2 Delivery Room Air Room Air Room Air 11/23/20 11/24/20 11/24/20 11/24/20 23:00 01:47 03:00 03:00 Temp 98.1 98.5 98.1 98.5 Pulse 93 91 Resp 20 20 B/P (MAP) 138/81 (100) 135/53 (80) Pulse Ox 98 98 100 100 O2 Delivery Room Air Room Air Room Air Room Air 11/24/20 07:00 Temp 98.1 98.1 Pulse 97 Resp 18 B/P (MAP) 153/75 (101) Pulse Ox 98 O2 Delivery Room Air Intake and Output 11/23/20 11/23/20 11/24/20 15:00 23:00 07:00 Output Total 0 ml Balance 0 ml Justicifation of Admission Dx: Justifications for Admission: Justification of Admission Dx: Yes Acute Renal Failure: Serum Cr > 4mg/dL Chronic Renal Failure: Hemodynamic Instability Sepsis: Infection ASHIA MOSS MD Nov 24, 2020 09:09
--- NOTE | 2020-11-24 09:34 | PDOC ---
PROGRESS NOTES Date of Service DATE: 11/24/20 TIME: 09:32 Subjective Subjective She admits pain in her lower extremities. Objective Objective Vital Signs Date Time Temp Pulse Resp B/P (MAP) Pulse Ox O2 Delivery O2 Flow Rate FiO2 11/24/20 09:09 98 Room Air 11/24/20 07:00 98.1 97 18 153/75 (101) 98.1 Intake and Output 11/24/20 07:00 Output Total 0 ml Balance 0 ml Output Urine Total 0 ml # Voids 1 Physical Exam Physical Exam She is supine in bed receiving hemodialysis and continues with painfully limited knee joint ROM and tenderness to palpation over trochanteric bursa bilaterally. Assessment Assessment Problems Medical Problems: (1) Back pain Status: Acute (2) ESRD (end stage renal disease) on dialysis Status: Chronic (3) Knee pain, bilateral Status: Acute (4) Pelvic pain Status: Acute (5) Weakness Status: Acute Plan Plan of Care To get her up as tolerated. Comment Review of Relevant I have reviewed the following items tamika (where applicable) has been applied. Labs Laboratory Tests Test 11/22/20 12:14 11/22/20 13:00 11/22/20 17:14 11/22/20 20:26 Glucose (Fingerstick) 82 mg/dL (70-99) 110 mg/dL (70-99) 139 mg/dL (70-99) Coronavirus (PCR) Not detected (Not Detected) Test 11/23/20 06:40 11/23/20 08:15 11/23/20 12:29 11/23/20 16:51 Sodium Level 138 mmol/L (136-145) Potassium Level 4.1 mmol/L (3.5-5.1) Chloride Level 99 mmol/L (98-107) Carbon Dioxide Level 29 mmol/L (21-32) Anion Gap 10 (6-14) Blood Urea Nitrogen 33 mg/dL (7-20) Creatinine 5.5 mg/dL (0.6-1.0) Estimated GFR (Cockcroft-Gault) 9.4 Glucose Level 94 mg/dL (70-99) Calcium Level 9.0 mg/dL (8.5-10.1) Phosphorus Level 4.2 mg/dL (2.6-4.7) Magnesium Level 2.0 mg/dL (1.8-2.4) Albumin 2.3 g/dL (3.4-5.0) Glucose (Fingerstick) 98 mg/dL (70-99) 130 mg/dL (70-99) 157 mg/dL (70-99) Test 11/24/20 07:18 Glucose (Fingerstick) 105 mg/dL (70-99) Laboratory Tests Test 11/23/20 12:29 11/23/20 16:51 11/24/20 07:18 Glucose (Fingerstick) 130 mg/dL (70-99) 157 mg/dL (70-99) 105 mg/dL (70-99) Medications Current Medications Morphine Sulfate (Morphine Sulfate) 4 mg 1X ONCE IV Last administered on 11/18/20at 12:31; Start 11/18/20 at 12:00; Stop 11/18/20 at 12:02; Status DC Dextrose (Dextrose 50%-Water Syringe) 25 gm 1X ONCE IV Last administered on 11/18/20at 13:07; Start 11/18/20 at 13:00; Stop 11/18/20 at 13:01; Status DC Insulin Human Regular (HumuLIN R VIAL) 10 unit 1X ONCE IV Last administered on 11/18/20at 13:08; Start 11/18/20 at 13:00; Stop 11/18/20 at 13:01; Status DC Sodium Bicarbonate (Sodium Bicarb Adult 8.4% Syr) 50 meq 1X ONCE IV Last administered on 11/18/20at 13:07; Start 11/18/20 at 13:00; Stop 11/18/20 at 13:01; Status DC Ondansetron HCl (Zofran) 4 mg PRN Q8HRS PRN IV NAUSEA/VOMITING; Start 11/18/20 at 13:15; Stop 11/19/20 at 13:14; Status DC Morphine Sulfate (Morphine Sulfate) 4 mg PRN Q2HR PRN IV PAIN Last administered on 11/19/20at 12:44; Start 11/18/20 at 13:15; Stop 11/19/20 at 13:14; Status DC Acetaminophen (Tylenol) 500 mg PRN Q6HRS PRN PO mild pain or fever; Start 11/18/20 at 18:00 Albuterol Sulfate (Ventolin Neb Soln) 2.5 mg PRN Q2HRS PRN NEB SOB / WHILE AWAKE; Start 11/18/20 at 18:00 Ferrous Sulfate (Feosol) 325 mg BIDWMEALS PO Last administered on 11/23/20at 18:18; Start 11/19/20 at 08:00 Oxycodone/ Acetaminophen (Percocet 5/325) 1 tab QIDPRN PRN PO MODERATE-SEVERE PAIN Last administered on 11/24/20at 01:47; Start 11/18/20 at 18:00 Pantoprazole Sodium (Protonix) 40 mg DAILYAC PO Last administered on 11/23/20at 09:29; Start 11/19/20 at 07:30 Sodium Chloride 1,000 ml @ 1,000 mls/hr Q1H PRN IV hypotension; Start 11/19/20 at 08:45; Stop 11/19/20 at 14:44; Status DC Albumin Human 200 ml @ 200 mls/hr 1X PRN PRN IV Hypotension; Start 11/19/20 at 08:45; Stop 11/19/20 at 14:44; Status DC Diphenhydramine HCl (Benadryl) 25 mg 1X PRN PRN IV ITCHING; Start 11/19/20 at 08:45; Stop 11/20/20 at 08:44; Status DC Diphenhydramine HCl (Benadryl) 25 mg 1X PRN PRN IV ITCHING; Start 11/19/20 at 08:45; Stop 11/20/20 at 08:44; Status DC Sodium Chloride 1,000 ml @ 400 mls/hr Q2H30M PRN IV PATENCY; Start 11/19/20 at 08:45; Stop 11/19/20 at 20:44; Status DC Info (PHARMACY MONITORING -- do not chart) 1 each PRN DAILY PRN MC SEE COMMENTS; Start 11/19/20 at 08:45; Stop 11/22/20 at 07:34; Status DC Diclofenac Sodium (Voltaren) 1 mikey BID TP Last administered on 11/23/20at 21:00; Start 11/19/20 at 12:00 Nystatin (Nystop) 1 mikey BID TP Last administered on 11/23/20at 21:00; Start 11/19/20 at 21:00 Magnesium Sulfate 50 ml @ 25 mls/hr PRN DAILY PRN IV for Mag < 1.7 on am labs; Start 11/20/20 at 08:45 Darbepoetin Bolivar (ARANESP for DIALYSIS PTS) 60 mcg Paul SQ Last administered on 11/20/20at 20:56; Start 11/20/20 at 21:00 Sodium Chloride 1,000 ml @ 1,000 mls/hr Q1H PRN IV hypotension; Start 11/22/20 at 07:30; Stop 11/22/20 at 13:29; Status DC Albumin Human 200 ml @ 200 mls/hr 1X PRN PRN IV Hypotension; Start 11/22/20 at 07:30; Stop 11/22/20 at 13:29; Status DC Sodium Chloride 1,000 ml @ 400 mls/hr Q2H30M PRN IV PATENCY; Start 11/22/20 at 07:30; Stop 11/22/20 at 19:29; Status DC Info (PHARMACY MONITORING -- do not chart) 1 each PRN DAILY PRN MC SEE COMMENTS; Start 11/22/20 at 07:30; Stop 11/22/20 at 07:34; Status DC Info (PHARMACY MONITORING -- do not chart) 1 each PRN DAILY PRN MC SEE COMMENTS; Start 11/22/20 at 07:30 Sodium Chloride 1,000 ml @ 1,000 mls/hr Q1H PRN IV hypotension; Start 11/24/20 at 07:15; Stop 11/24/20 at 13:14 Albumin Human 200 ml @ 200 mls/hr 1X PRN PRN IV Hypotension; Start 11/24/20 at 07:15; Stop 11/24/20 at 13:14 Sodium Chloride 1,000 ml @ 400 mls/hr Q2H30M PRN IV PATENCY; Start 11/24/20 at 07:15; Stop 11/24/20 at 19:14 Lidocaine HCl (Xylocaine-Mpf 1% 2ml Vial) 2 ml 1X PRN PRN INJ FOR DIALYSIS; Start 11/24/20 at 07:15; Stop 11/25/20 at 07:14 Info (PHARMACY MONITORING -- do not chart) 1 each PRN DAILY PRN MC SEE COMMENTS; Start 11/24/20 at 07:15 Info (PHARMACY MONITORING -- do not chart) 1 each PRN DAILY PRN MC SEE COMMENTS; Start 11/24/20 at 07:15; Status UNV Active Scripts Active Nyamyc (Nystatin) 15 Gm Powder 1 Mikey TP BID 14 Days [Diclofenac Sodium] 100 GM Gel..gram. 1 Mikey TP BID 14 Days Percocet 5-325 Mg Tablet (Oxycodone/Acetaminophen) 1 Each Tablet 1 Tab PO QIDPRN PRN MDD 4 Tablet(s) 2 Days Feosol (Ferrous Sulfate) 325 Mg Tablet 325 Mg PO BIDWMEALS 60 Days Proair Hfa (Albuterol Sulfate) 8.5 Gm Hfa.aer.ad 2.5 Mg NEB PRN Q2HRS PRN 30 Days Pantoprazole Sodium (Pantoprazole Sodium) 40 Mg Tablet.dr 40 Mg PO DAILYAC 30 Days Reported Carvedilol 25 Mg Tablet 25 Mg PO BIDWMEALS Folic Acid 0.4 Mg Tablet 0.4 Mg PO DAILY Acetaminophen 500 Mg Tablet 1 Tab PO PRN Q6HRS PRN 15 Days Vitals/I & O Vital Sign - Last 24 Hours 11/23/20 11/23/20 11/23/20 11/23/20 10:30 11:00 15:00 18:22 Temp 97.8 98.0 97.8 98.0 Pulse 84 86 Resp 19 18 18 19 B/P (MAP) 148/46 (80) 138/51 (80) Pulse Ox 93 98 98 93 O2 Delivery Room Air Room Air Room Air Room Air 11/23/20 11/23/20 11/23/20 11/23/20 19:00 20:00 21:00 23:00 Temp 98.2 98.1 98.2 98.1 Pulse 87 93 Resp 22 20 B/P (MAP) 163/66 (98) 138/81 (100) Pulse Ox 97 93 98 O2 Delivery Room Air Room Air Room Air 11/24/20 11/24/20 11/24/20 11/24/20 01:47 03:00 03:00 07:00 Temp 98.5 98.1 98.5 98.1 Pulse 91 97 Resp 20 18 B/P (MAP) 135/53 (80) 153/75 (101) Pulse Ox 98 100 100 98 O2 Delivery Room Air Room Air Room Air Room Air 11/24/20 09:09 Pulse Ox 98 O2 Delivery Room Air Intake and Output 11/23/20 11/23/20 11/24/20 15:00 23:00 07:00 Output Total 0 ml Balance 0 ml Justifications for Admission Other Justification Hyperkalemia, hemodialysis SUSY ESTRELLA MD Nov 24, 2020 09:34
--- NOTE | 2020-11-24 09:48 | NUR ---
SW following. Discussed with RN, pt discharging to [facility] today, transportation arranged by [facility] for 1300. RN notified. SW will continue to follow.
--- NOTE | 2020-11-24 10:10 | SNU/HH DC ---
DISCHARGE ORDERS DISCHARGE INFORMATION: DISCHARGE DATE: Nov 24, 2020 FINAL DIAGNOSIS Problems Medical Problems: (1) Back pain Status: Acute (2) ESRD (end stage renal disease) on dialysis Status: Chronic (3) Knee pain, bilateral Status: Acute (4) Pelvic pain Status: Acute (5) Weakness Status: Acute CONDITION ON DISCHARGE: Stable CODE STATUS: Code Status: Full CUSTODIAL: SNF STAY <30 DAYS: Yes HOSPICE: HOSPICE: No HOSPICE EVAL & TREAT: No LTAC: ADMIT TO LTAC: No POST DISCHARGE ORDERS: ACTIVITY ORDERS: No restrictions, Resume previous activity, Activity as tolerated WEIGHT BEARING STATUS: No restrictions, Full weight bearing, As tolerated DIET AFTER DISCHARGE: Renal WOUND/INCISION CARE: No wound care needed CHECKS AFTER DISCHARGE: CHECKS AFTER DISCHARGE: Check blood press - daily, Check blood sugar, ac/hs, Check your Temp as needed, Weigh Yourself Daily FOLLOW-UP: PHYSICIAN FOLLOW-UP: nephrology 1 day TREATMENT/EQUIPMENT ORDERS: ADAPTIVE EQUIPMENT NEEDED: None, Commode, Front wheeled walker Physical Therapy For: Evalulation/Treatment Occupational Therapy For: Evaluation/Treatment Speech Language Pathology For: Evaluation/Treatment DISCHARGE MEDICATIONS: Home Meds Active Scripts Nystatin (NYAMYC) 15 Gm Powder, 1 DAWNA TP BID for RASH for 14 Days, #30 MISC Prov:ASHIA MOSS MD 11/21/20 [Diclofenac Sodium 1% Topical] 100 GM GEL..GRAM. No Conflict Check, 1 DAWNA TP BID for TOPICAL PAIN for 14 Days, #28 EACH Prov:ASHIA MOSS MD 11/21/20 Oxycodone/Apap 5-325 (PERCOCET 5-325 MG TABLET ) 1 Each Tablet, 1 TAB PO QIDPRN PRN for PAIN MDD 4 Tablet(s) for 2 Days, #6 TAB 0 Refills Prov:CORY HARPER DO 10/29/20 Ferrous Sulfate (FEOSOL) 325 Mg Tablet, 325 MG PO BIDWMEALS for anemia for 60 Days, #120 TAB Prov:BERNARDO NG MD 03/08/20 Albuterol Sulfate (Proair Hfa) 8.5 Gm Hfa.aer.ad, 2.5 MG NEB PRN Q2HRS PRN for SOB / WHILE AWAKE for 30 Days, #30 INHALER Prov:ASHIA MOSS MD 09/27/19 Pantoprazole Sodium (PANTOPRAZOLE SODIUM ) 40 Mg Tablet.dr, 40 MG PO DAILYAC for Bleeding ulcer for 30 Days, #30 TAB.SR 5 Refills Prov:MELY OLVERA MD 07/04/19 Reported Medications Carvedilol (CARVEDILOL) 25 Mg Tablet, 25 MG PO BIDWMEALS for CARDIAC, TAB 03/05/20 Folic Acid (FOLIC ACID) 0.4 Mg Tablet, 0.4 MG PO DAILY for supplement, TAB 03/05/20 Acetaminophen (ACETAMINOPHEN) 500 Mg Tablet, 1 TAB PO PRN Q6HRS PRN for pain or fever for 15 Days, #60 TAB 0 Refills 12/30/19 Discontinued Reported Medications Hydrocodone Bit/Acetaminophen (HYDROCODONE-APAP 10-325 ) 1 Tab Tablet, 1 TAB PO PRN Q6HRS PRN for PAIN, TAB 0 Refills 07/14/20 ASHIA MOSS MD Nov 24, 2020 10:10
[2020-11-24] MEDS: PANTOPRAZOLE 40 MG TABLET.DR. PO SCH (12:05)
[2020-11-24] MEDS: FERROUS SULFATE 325 MG TABLET. PO SCH (12:06)
--- NOTE | 2020-11-24 12:09 | PDOC ---
Renal-Progress Notes Subjective Notes Notes NONE History of Present Illness Hx of present illness STABLE Vitals Vitals Vital Signs Date Time Temp Pulse Resp B/P (MAP) Pulse Ox O2 Delivery O2 Flow Rate FiO2 11/24/20 12:06 98 Room Air 11/24/20 07:00 98.1 97 18 153/75 (101) 98.1 Weight Weight [ ] I.O. Intake and Output Intake and Output 11/24/20 07:00 Output Total 0 ml Balance 0 ml Output Urine Total 0 ml # Voids 1 Labs Labs Laboratory Tests Test 11/23/20 12:29 11/23/20 16:51 11/24/20 07:18 Glucose (Fingerstick) 130 mg/dL (70-99) 157 mg/dL (70-99) 105 mg/dL (70-99) Review of Systems Constitutional: yes: weakness, alert, oriented Ears/Nose/Throat: Yes: no symptom reported Eyes: Yes: no symptom reported Pulmonary: Yes no symptom reported Cardiovascular: Yes no symptom reported Gastrointestional: Yes: no symptom reported Genitourinary: Yes: no symptom reported Musculoskeletal: Yes: no symptom reported Skin: Yes no symptom reported Psychiatric/Neurological: Yes: no symptom reported Physical Exam General Appearance: no apparent distress, febrile Heart: S1S2 Abdomen: soft, bowel sounds present Genitourinary: bladder flat Extremities: pulses present, atrophy, edema Neurology: alert Assessment Assessment IMP ESRD ANEMIA DM II HTN NON COMPLIANCE PLAN HD TODAY UF TOLERATED WILL NEED EXTRA UF TO GET TW ENC COMPLIANCE HAS RECEIVED LINNEA SAVAGE MD Nov 24, 2020 12:09
--- NOTE | 2020-11-24 13:46 | NUR ---
Gave report to Lorna GILL at [facility]. Transportation wheeled her to facility.
[2020-12-15] MEDS ORDERED: OXYC1TAB15 PO (15:09)
[2021-02-16] MEDS ORDERED: OXYC1TAB17 PO (23:22)
== END 2020-11-24 13:02 | DRG 640 ==
LOC: ER 09:08 → 5 NORTH 13:03
PROVIDERS: ADMIT Internal Medicine; ATTEND Internal Medicine
PROC: 5A1D70Z Performance of Urinary Filtration, Intermittent, Less than 6 Hours Per Day (ICD-10-PCS; 2020-11-19)
PROC: 30233N1 Transfusion of Nonautologous Red Blood Cells into Peripheral Vein, Percutaneous Approach (ICD-10-PCS; principal; 2020-11-21)
PROC: 5A1D70Z Performance of Urinary Filtration, Intermittent, Less than 6 Hours Per Day (ICD-10-PCS; 2020-11-22)
PROC: 5A1D70Z Performance of Urinary Filtration, Intermittent, Less than 6 Hours Per Day (ICD-10-PCS; 2020-11-24)
DX: E87.5 Hyperkalemia (principal); N18.6 End stage renal disease; I12.0 Hypertensive chronic kidney disease with stage 5 chronic kidney disease or end stage renal disease; M54.5 Low back pain; E11.22 Type 2 diabetes mellitus with diabetic chronic kidney disease; E11.42 Type 2 diabetes mellitus with diabetic polyneuropathy; M17.0 Bilateral primary osteoarthritis of knee; E87.70 Fluid overload, unspecified; M70.61 Trochanteric bursitis, right hip; M70.62 Trochanteric bursitis, left hip; Z99.2 Dependence on renal dialysis; K74.60 Unspecified cirrhosis of liver; E21.3 Hyperparathyroidism, unspecified; K59.09 Other constipation; E66.01 Morbid (severe) obesity due to excess calories; Z91.19 Patient's noncompliance with other medical treatment and regimen; D64.9 Anemia, unspecified; E78.5 Hyperlipidemia, unspecified; G89.29 Other chronic pain; K21.9 Gastro-esophageal reflux disease without esophagitis; Z53.20 Procedure and treatment not carried out because of patient's decision for unspecified reasons; Z82.49 Family history of ischemic heart disease and other diseases of the circulatory system; Z87.11 Personal history of peptic ulcer disease; Z20.822 Contact with and (suspected) exposure to COVID-19; Z87.442 Personal history of urinary calculi; Z90.49 Acquired absence of other specified parts of digestive tract; Z90.710 Acquired absence of both cervix and uterus; Z91.81 History of falling; Z68.38 Body mass index [BMI] 38.0-38.9, adult; W18.39XA Other fall on same level, initial encounter; Y93.89 Activity, other specified; Y92.89 Other specified places as the place of occurrence of the external cause; Y99.8 Other external cause status
CPT/HCPCS: 36415; 72100; 72170; 80048; 80053; 80069; 82550; 82962; 83735; 85014; 85018; 85025; 86706; 86850; 86900; 86901; 86920; 87340; 94760; 96374; 96375; 99285; J0882; J1815; J2270; J3490; P9016; U0003; 73562-50; 97110-GP; 97530-GP; G0378

== ENCOUNTER 2021-01-20 07:05 | Day surgery (SDC) | payer OTHER, MEDICAID ==
[~2021-01-20] VITALS: Ht 157.5 cm; Wt 91.6 kg
[~2021-01-20 07:05] MED LIST changes: +CIPROFLOXACIN 0.3% OPHTH SOLUTION 5ML BOTTLE. OS ONE; +Diclofenac Sodium TP; +HYDROmorphone 2 MG/ML VIAL IVP PRN; +IV RINGERS,LACTATED 1000ML 1,000 ML IV SCH; +LIDOCAINE 2% JELLY 6ML IN APPLICATOR. OS ONE; +MORPHINE SULFATE 2 MG/ML VIAL. IVP PRN; +NYST15PO2 TP; +OMEP40CA45; -OMEP40CA7; +PROCHLORPERAZINE 10 MG/2 ML VIAL. IVP PRN; +PROPARACAINE 0.5% OPHTH SOLUTION 15ML BOTTLE. OS ONE; +fentaNYL PF VIAL 100 MCG/2 ML VIAL IVP PRN
[2021-01-20] MEDS ORDERED: IV NORMAL SALINE 1000ML BAG 1,000 ML IV ONE (08:00)
[2021-01-20] MEDS: PHENYLEPHRINE 10% OPHTH SOLUTION 5ML BOTTLE. OS SCH ×3 (08:13→08:23)
[2021-01-20] MEDS: CYCLOPENTOLATE 2% OPHTH SOLUTION 2ML BOTTLE. OS SCH ×3 (08:16→08:26)
[2021-01-20] MEDS ORDERED: CHONDROIT-SOD-HYALURONATE KIT. ONE (09:06)
[2021-01-20] MEDS ORDERED: NEO/POLYMYX/DEXAMETH OPHTH OINTMENT 3.5GM TUBE. ONE (09:06)
[2021-01-20] MEDS ORDERED: LIDOCAINE 1%/PHENYLEPH 1.5% PF OPHTH 1 ML VIAL. ONE (09:06)
[2021-01-20] MEDS ORDERED: CHONDROITIN-SOD-HYALURONATE 0.5 ML DISP.SYRIN. ONE (09:07)
[2021-01-20 10:53] VITALS: BP 156/63
--- NOTE | 2021-01-20 11:05 | OP ---
DATE OF SURGERY: 01/20/2021 PREOPERATIVE DIAGNOSES: 1. Incipient cataract of the left eye. 2. 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 PROCEDURES: 1. [place] dual blade goniotomy of the left eye. 2. Cataract extraction with posterior chamber intraocular lens implantation with Trypan blue staining of the left eye. SURGEON: Christophe Rojas MD ANESTHESIA: Topical with monitored anesthesia care. DESCRIPTION OF PROCEDURE: The left eye was prepped with Betadine in the usual sterile fashion and draped. A paracentesis was performed followed by instillation of preservative-free phenylephrine admixed with balanced salt solution and lidocaine. Air was injected in the anterior chamber and Trypan blue was used to stain the anterior capsule. This was then evacuated with Viscoat and a temporal clear corneal incision was made. The head and microscope were then repositioned to visualize the nasal anterior chamber angle. A goniotomy blade was used to excise a portion of the trabecular meshwork. The head and microscope were repositioned and the capsulorrhexis was adequately visualized under the VisionBlue guidance. Hydrodissection was used to mobilize the nucleus and it was removed with the phacoemulsification handpiece in a modified stop and chop fashion. The I/A handpiece was used to remove the remainder of the cortex. There was significant laxity to the posterior capsule; and therefore, no polishing was done despite some small posterior subcapsular cataract. Provisc was injected in the anterior chamber and the Rojas, model [id number] with a power of 21.5 diopters was placed into the capsular bag. Balanced salt solution was used to hydrate the corneal wounds and the viscoelastic evacuated with the I/A handpiece. Once no leak was noted, Maxitrol was placed on the eye and the eye shielded and the patient was sent to the recovery room uneventfully. CHRISTOPHE ROJAS MD DR: ZENAIDA/nts JOB#: [id number] / [id number]
== END 2021-01-20 11:22 | disposition home or self-care (01) ==
LOC: SURG 07:05
PROVIDERS: ATTEND Ophthalmology
DX: E11.36 Type 2 diabetes mellitus with diabetic cataract (principal); H25.092 Other age-related incipient cataract, left eye; E78.00 Pure hypercholesterolemia, unspecified; K21.9 Gastro-esophageal reflux disease without esophagitis; I12.9 Hypertensive chronic kidney disease with stage 1 through stage 4 chronic kidney disease, or unspecified chronic kidney disease; E11.22 Type 2 diabetes mellitus with diabetic chronic kidney disease; N18.9 Chronic kidney disease, unspecified; M19.90 Unspecified osteoarthritis, unspecified site; F41.9 Anxiety disorder, unspecified; Z79.899 Other long term (current) drug therapy; Z98.890 Other specified postprocedural states; Z72.89 Other problems related to lifestyle; Z20.822 Contact with and (suspected) exposure to COVID-19
CPT/HCPCS: 65820; 66984; 87426; C1780; C9803; J0171; J0690; J1580; J3490; U0003

== ENCOUNTER 2021-02-10 09:14 | Day surgery (SDC) | payer OTHER, MEDICAID ==
[~2021-02-10 09:14] MED LIST changes: +CHONDROIT-SOD-HYALURONATE KIT. ONE; +CHONDROITIN-SOD-HYALURONATE 0.5 ML DISP.SYRIN. ONE; +CIPROFLOXACIN 0.3% OPHTH SOLUTION 5ML BOTTLE. OD ONE; -CIPROFLOXACIN 0.3% OPHTH SOLUTION 5ML BOTTLE. OS ONE; +LIDOCAINE 1%/PHENYLEPH 1.5% PF OPHTH 1 ML VIAL. ONE; +LIDOCAINE 2% JELLY 6ML IN APPLICATOR. OD ONE; -LIDOCAINE 2% JELLY 6ML IN APPLICATOR. OS ONE; +NEO/POLYMYX/DEXAMETH OPHTH OINTMENT 3.5GM TUBE. ONE; +PROPARACAINE 0.5% OPHTH SOLUTION 15ML BOTTLE. OD ONE; -PROPARACAINE 0.5% OPHTH SOLUTION 15ML BOTTLE. OS ONE
[2021-02-10] MEDS ORDERED: IV NORMAL SALINE 1000ML BAG 1,000 ML IV SCH (09:45)
[2021-02-10] MEDS ORDERED: INSULIN LISPRO 100 UNIT/ML 3ML VIAL for OP,RR ONLY. SQ PRN (09:45)
[2021-02-10] MEDS: CYCLOPENTOLATE 1% OPHTH SOLUTION 2ML BOTTLE. OD SCH ×3 (10:23→10:33)
[2021-02-10] MEDS: PHENYLEPHRINE 10% OPHTH SOLUTION 5ML BOTTLE. OD SCH ×3 (10:23→10:33)
--- NOTE | 2021-02-10 12:43 | OP ---
DATE OF SURGERY: 02/10/2021 PREOPERATIVE DIAGNOSES: 1. Incipient cataract of the left eye with poor red reflex. 2. Open angle glaucoma. PROCEDURES: 1. Cataract extraction with posterior chamber intraocular lens implantation with Trypan blue staining. 2. [place] Dual blade goniotomy of the left eye. DESCRIPTION OF PROCEDURE: The left eye was prepped with Betadine in the usual sterile fashion and draped. A paracentesis was performed followed by instillation of preservative-free phenylephrine admixed with lidocaine and balanced salt solution. A temporal clear corneal incision was made and air was injected into the anterior chamber, under which Trypan blue was used to stain the anterior capsule due to the poor red reflex. The air was evacuated with Viscoat and the head and microscope were then repositioned to visualize the anterior chamber angle with which the [place] Dual blade was used to excise the nasal segment of the trabecular mesh work. The head and microscope were then repositioned and a capsulorrhexis was then performed followed by hydrodissection. The phacoemulsification handpiece was used to remove the nucleus in a modified stop and chop fashion. The I/A handpiece was used to remove the cortex and viscoelastic was injected in the anterior chamber and an Rojas model [id number] with a power of 21.5 diopters was placed into the capsular bag. Balanced salt solution was used to hydrate the corneal wounds and the viscoelastic evacuated with the I/A handpiece. Once no leak was noted, Maxitrol was placed on the eye and the eye shielded and the patient was sent to the recovery room uneventfully. CHRISTOPHE ROWLAND MD DR: ZENAIDA/danial JOB#: [id number] / [id number]
[2021-02-10 12:48] VITALS: BP 174/69
== END 2021-02-10 13:20 | disposition home or self-care (01) ==
LOC: SURG 09:14
PROVIDERS: ATTEND Ophthalmology
DX: E11.36 Type 2 diabetes mellitus with diabetic cataract (principal); H25.092 Other age-related incipient cataract, left eye; H40.10X0 Unspecified open-angle glaucoma, stage unspecified; I10 Essential (primary) hypertension; E78.00 Pure hypercholesterolemia, unspecified; K21.9 Gastro-esophageal reflux disease without esophagitis; M19.90 Unspecified osteoarthritis, unspecified site; F41.9 Anxiety disorder, unspecified; Z79.899 Other long term (current) drug therapy; Z79.84 Long term (current) use of oral hypoglycemic drugs; Z90.49 Acquired absence of other specified parts of digestive tract; Z98.890 Other specified postprocedural states; Z72.89 Other problems related to lifestyle; Z82.49 Family history of ischemic heart disease and other diseases of the circulatory system; Z83.3 Family history of diabetes mellitus; Z20.822 Contact with and (suspected) exposure to COVID-19
CPT/HCPCS: 65820; 66984; 82962; 87426; J0171; J0690; J1580; J3490; U0003; U0005; V2632

== ENCOUNTER 2021-02-16 14:46 | Inpatient (IN) | payer OTHER, MEDICAID ==
[~2021-02-16] VITALS: Ht 162.6 cm; Wt 82.7 kg
[~2021-02-16 14:46] MED LIST changes: -CHONDROIT-SOD-HYALURONATE KIT. ONE; -CHONDROITIN-SOD-HYALURONATE 0.5 ML DISP.SYRIN. ONE; -CIPROFLOXACIN 0.3% OPHTH SOLUTION 5ML BOTTLE. OD ONE; -HYDROmorphone 2 MG/ML VIAL IVP PRN; -IV RINGERS,LACTATED 1000ML 1,000 ML IV SCH; -LIDOCAINE 1%/PHENYLEPH 1.5% PF OPHTH 1 ML VIAL. ONE; -LIDOCAINE 2% JELLY 6ML IN APPLICATOR. OD ONE; -MORPHINE SULFATE 2 MG/ML VIAL. IVP PRN; -NEO/POLYMYX/DEXAMETH OPHTH OINTMENT 3.5GM TUBE. ONE; -PROCHLORPERAZINE 10 MG/2 ML VIAL. IVP PRN; -PROPARACAINE 0.5% OPHTH SOLUTION 15ML BOTTLE. OD ONE; -fentaNYL PF VIAL 100 MCG/2 ML VIAL IVP PRN
--- NOTE | 2021-02-16 15:26 | PHYS DOC ---
Past Medical History Past Medical History: Diabetes-Type II, GERD, GI Bleed, Hypertension, Kidney Stone, Pancreatitis, Pneumonia, P.U.D., Renal Failure, Other Additional Past Medical Histor: Ulcers,ESRD,C-DIFF,CIRRHOSIS,CHRONIC PAIN Past Surgical History: Other Additional Past Surgical Histo: LEFT UPPER dialysis shunt Smoking Status: Never Smoker Alcohol Use: Occasionally Drug Use: None General Adult EDM: Chief Complaint: DIALYSIS PROBLEM HPI: HPI: 65-year-old female presenting the emergency department today with her daughter. She presents after missing dialysis 4 times. Her last dialysis was on February 072020. She has been having pain and having worsening confusion. The primary reason the patient was brought to the hospital because her confusion which started about 2 to 3 days ago. No alleviating or exacerbating factors. Her daughter describes the confusion as forgetting things that she normally remembers. The patient's pain initially the daughter had told us the patient was having back pain. She told our nurse that she was having chest pain. She told me that her pain was all over. Review of systems negative for abdominal pain vomiting fevers chills. She denies rash. She denies headache or nuchal rigidity. All other review of systems negative. ED course: 65-year-old female presenting with confusion. During history and physical the patient is resting comfortably in examination room and does not appear to be any pain. EKG obtained and reviewed by myself contemporaneously in real-time shows sinus rhythm with a regular rate. ST segments are congruent. Not suggestive of acute ischemia. Nonspecific T wave inversion in lead III. Blood work ordered. Patient was hypoxic on arrival and placed on 4 L nasal cannula. pro bnp elevated. ct c/a/p neg for acute path. will admit for dialysis. spoke with hospitalist who accepts pt. Heart Score: C/O Chest Pain: No Risk Factors: Risk Factors: DM, Current or recent (<one month) smoker, HTN, HLP, family his tory of CAD, obesity. Risk Scores: Score 0 - 3: 2.5% MACE over next 6 weeks - Discharge Home Score 4 - 6: 20.3% MACE over next 6 weeks - Admit for Clinical Observation Score 7 - 10: 72.7% MACE over next 6 weeks - Early Invasive Strategies Allergies: Allergies: Allergies Coded Allergies Type Severity Reaction Last Updated Verified No Known Drug Allergies 02/10/21 No Physical Exam: PE: Constitutional: Well developed, well nourished, no acute distress, non-toxic appearance. [] HENT: Normocephalic, atraumatic, bilateral external ears normal, oropharynx moist, no oral exudates, nose normal. [] Eyes: PERRLA, EOMI, conjunctiva normal, no discharge. [] Neck: Normal range of motion, no tenderness, supple, no stridor. [] Cardiovascular:Heart rate regular rhythm, no murmur [] Lungs & Thorax: crackles in the bases. not in respiratory distress. no wheezing. Abdomen: Bowel sounds normal, soft, no tenderness, no masses, no pulsatile masses. [] Skin: Warm, dry, no erythema, no rash. [] Back: No tenderness, no CVA tenderness. [] Extremities: No tenderness, no cyanosis, no clubbing, ROM intact, 1 +edema Neurologic: Alert and oriented X 3, normal motor function, normal sensory function, no focal deficits noted. [] Psychologic: Affect normal, judgement normal, mood normal. [] EKG: EKG: [] Radiology/Procedures: Radiology/Procedures: [] Course & Med Decision Making: Course & Med Decision Making Pertinent Labs and Imaging studies reviewed. (See chart for details) [] Dragon Disclaimer: Dragon Disclaimer: This electronic medical record was generated, in whole or in part, using a voice recognition dictation system. Departure Departure Impression: Primary Impression: ESRD (end stage renal disease) Additional Impressions: Hyperkalemia Missed dialysis Obesity (BMI 30.0-34.9) Dyspnea Hemoglobin low Hypoxia Disposition: ADMITTED INPATIENT Admitting Physician: HIMS Condition: STABLE Referrals: NO PCP (PCP) FELECIA HEART MD Feb 16, 2021 15:26
[2021-02-16 15:36] LABS: BASO % 2 % (0-3); EOS # 0.1 x10^3/uL (0.0-0.7); EOS % 3 % (0-3); HEMATOCRIT 27.1 % (36.0-47.0); HEMOGLOBIN 8.8 g/dL (12.0-15.5); LYMPH # 0.5 x10^3/uL (1.0-4.8); LYMPH % 16 % (24-48); MEAN CORPUSCULAR HEMOGLOBIN 35 pg (25-35); MEAN CORPUSCULAR HGB CONC 33 g/dL (31-37); MEAN CORPUSCULAR VOLUME 106 fL (79-100); MONO # 0.4 x10^3/uL (0.0-1.1); MONO % 13 % (0-9); NEUT % 67 % (31-73); PLATELET COUNT 105 x10^3/uL (140-400); RED BLOOD COUNT 2.56 x10^6/uL (3.50-5.40); RED CELL DISTRIBUTION WIDTH 17.7 % (11.5-14.5)
[2021-02-16 15:43] LABS: CALCIUM 8.7 mg/dL (8.5-10.1); CREATININE 12.2 mg/dL (0.6-1.0); GFR 3.7; POTASSIUM 5.4 mmol/L (3.5-5.1)
[2021-02-16 15:48] LABS: ALBUMIN 3.5 g/dL (3.4-5.0); DIRECT BILIRUBIN 0.2 mg/dL (0.0-0.2); TOTAL BILIRUBIN 0.5 mg/dL (0.2-1.0); TOTAL PROTEIN 8.7 g/dL (6.4-8.2)
--- NOTE | 2021-02-16 16:06 | RAD ---
Exam: CT head INDICATION: Confusion TECHNIQUE: Sequential axial images through the head were obtained without the administration of IV co ntrast. Comparisons: None FINDINGS: No focal parenchymal lesion or hemorrhage is identified. There is no midline shift or sulcal effaceme nt. Mild patchy hypodensity in the periventricular white matter. No acute vascular territory infarction i s identified. Lamas-white distinction is preserved. The ventricular system is within normal limits without compression hydrocephalus. The basal cisterns are well maintained. The visualized portions of the paranasal sinuses and mastoid air cells are well-pneumatized. No acute fractures. IMPRESSION: Mild small vessel ischemic change, technically age indeterminate without recent prior imaging. Exposure: One or more of the following in the visualized dose reduction techniques were utilized for this examination: 1. Automated exposure control 2. Adjustment of the MA and/or KV according to patient size Use of iterative of reconstructive technique Electronically signed by: Ross Vergara MD (02/16/2021 4:04 PM) [facility]
--- NOTE | 2021-02-16 16:14 | RAD ---
Exam: CT of chest, abdomen and pelvis without contrast INDICATION: Chest, and back pain TECHNIQUE: Sequential axial images through the chest, abdomen and pelvis obtained without IV contrast . Sagittal and coronal reformatted images were reconstructed from the axial data and reviewed. Comparisons: 12/13/2020 FINDINGS: Visualized portions of the thyroid are unremarkable. No enlarged mediastinal lymph nodes. Heart is mildly enlarged. Mild coronary calcifications. Thoracic aorta has a normal course and calibe r. Pulmonary artery is not enlarged. Airways are patent. No consolidation or pneumothorax. No suspicious lung nodules are identified. No p leural effusion or thickening. Evaluation of solid organs is limited secondary to noncontrast technique. Liver, spleen, pancreas and adrenals are unremarkable. Gallbladder is absent. No perinephric inflammation or hydronephrosis. No renal or ureteral calculi are identified. Bladder is decompressed not well evaluated. This is absent. No abnormal adnexal mass. Large and small bowel are unremarkable. Appendix is not identified. No free abdominal air or fluid. N o obstruction. Abdominal aorta has a normal course caliber. No enlarged intra-abdominal lymph nodes are identified. No suspicious osseous lesions or acute fractures. IMPRESSION: 1. No acute process identified within the chest, abdomen or pelvis. 2. Cardiomegaly with moderate coronary artery calcifications. 3. Bilateral nonobstructing renal calculi. No ureteral calculi. No evidence for obstructive uropathy . Exposure: One or more of the following in the visualized dose reduction techniques were utilized for this examination: 1. Automated exposure control 2. Adjustment of the MA and/or KV according to patient size 3. Use of iterative of reconstructive technique Electronically signed by: Ross Vergara MD (02/16/2021 4:11 PM) [facility]
--- NOTE | 2021-02-16 16:35 | PDOC1 ---
History and Physical Date of Service: DOS: DATE: 02/16/21 TIME: 16:32 Chief Complaint: Chief Complain: Altered mental status. History of Present Illness: HPI: 65-year-old female presenting the emergency department today with her daughter. She presents after missing dialysis 4 times. Her last dialysis was on February 072020. She has been having pain and having worsening confusion. The primary reason the patient was brought to the hospital because her confusion which started about 2 to 3 days ago. No alleviating or exacerbating factors. Her daughter describes the confusion as forgetting things that she normally remembers. The patient's pain initially the daughter had told us the patient was having back pain. She told our nurse that she was having chest pain. She told me that her pain was all over. Review of systems negative for abdominal pain vomiting fevers chills. She denies rash. She denies headache or nuchal rigidity. All other review of systems negative. ED course: 65-year-old female presenting with confusion. During history and physical the patient is resting comfortably in examination room and does not appear to be any pain. EKG obtained and reviewed by myself contemporaneously in real-time shows sinus rhythm with a regular rate. ST segments are congruent. Not suggestive of acute ischemia. Nonspecific T wave inversion in lead III. Blood work ordered. Patient was hypoxic on arrival and placed on 4 L nasal cannula. Past Medical/Surgical History: PMH/PSH: Past Medical History: Diabetes-Type II, GERD, GI Bleed, Hypertension, Kidney Stone, Pancreatitis, Pneumonia, P.U.D., Renal Failure, Ulcers,ESRD,C- DIFF,CIRRHOSIS,CHRONIC PAIN Past Surgical History: LEFT UPPER dialysis shunt Allergies: Allergies: Coded Allergies: No Known Drug Allergies (Unverified , 02/10/21) Family History: Family History: Reviewed with no relevant findings Social History: Social History: Smoking Status: Never Smoker Alcohol Use: Occasionally Drug Use: None Current Medications: Current Medications Active Scripts Active Nyamyc (Nystatin) 15 Gm Powder 1 Mikey TP BID 14 Days Proair Hfa (Albuterol Sulfate) 8.5 Gm Hfa.aer.ad 2.5 Mg NEB PRN Q2HRS PRN 30 Days Pantoprazole Sodium (Pantoprazole Sodium) 40 Mg Tablet.dr 40 Mg PO DAILYAC 30 Days Reported Carvedilol 25 Mg Tablet 25 Mg PO BIDWMEALS Acetaminophen 500 Mg Tablet 1 Tab PO PRN Q6HRS PRN 15 Days ROS: Review of Systems Review of System REVIEW OF SYSTEMS: GENERAL: Denies weakness SKIN: No bruising, hair changes or rashes. EYES: No blurred, double or loss of vision. NOSE AND THROAT: No history of nosebleeds, hoarseness or sore throat. HEART: No history of palpitations, chest pain or shortness of breath on exertion. LUNGS: Denies cough, hemoptysis, wheezing or shortness of breath. GASTROINTESTINAL: Denies changes in appetite, nausea, vomiting, diarrhea or constipation. GENITOURINARY: No history of frequency, urgency, hesitancy or nocturia. NEUROLOGIC: Denies history of numbness, tingling, or tremor. PSYCHIATRIC: No history of panic, anxiety or depression. ENDOCRINE: No history of heat or cold intolerance, polyuria or polydipsia. EXTREMITIES: Denies joint pain, pain on walking or stiffness. Physical Exam: Vital Signs: Vital Signs Date Time Temp Pulse Resp B/P (MAP) Pulse Ox O2 Delivery O2 Flow Rate FiO2 02/16/21 14:57 98.3 76 20 130/62 (84) 89 Room Air 98.3 Physcial Exam: GEN: No apparent distress. Alert and oriented HEENT: Normal cephalic, atraumatic, external auditory canals are patent EYES: Extraocular muscles are intact, pupil are equally round and reactive to light and accommodation MUSCULOSKELETAL: Well developed , well nourished, good range of motion ENDOCRINE: No thyromegaly was palpated LYMPHATICS: No cervical chain or axillary nodes were noted HEMATOPOIETIC: No bruising NECK: Supple, no JVD, no thyromegaly was noted LUNGS: Clear to auscultation in all lung chaudhry without rhonchi or wheezing HEART: RRR, S!, S2 present. Peripheral pulses intact, no obvious murmurs noted ABDOMEN: Soft, nontender. Positive bowel sounds, no organomegaly, normal bowel sounds EXTREMITIES: Without clubbing, cyanosis, or edema. Pedal pulses intact. Nega tive Homans sign NEUROLOGIC: Normal speech and tone. A&O x 3, moves all extremities, no obvious focal deficits PSYCHIATRIC: Normal affect, normal mood. Stable SKIN: No ulcerations or rashes, good skin turgor, no jaundice VASCULAR: Good capillary refill, neurovascular bundle appears to be intact Labs: Labs: Laboratory Tests Test 02/16/21 15:24 White Blood Count 3.0 x10^3/uL (4.0-11.0) Red Blood Count 2.56 x10^6/uL (3.50-5.40) Hemoglobin 8.8 g/dL (12.0-15.5) Hematocrit 27.1 % (36.0-47.0) Mean Corpuscular Volume 106 fL (79-100) Mean Corpuscular Hemoglobin 35 pg (25-35) Mean Corpuscular Hemoglobin Concent 33 g/dL (31-37) Red Cell Distribution Width 17.7 % (11.5-14.5) Platelet Count 105 x10^3/uL (140-400) Neutrophils (%) (Auto) 67 % (31-73) Lymphocytes (%) (Auto) 16 % (24-48) Monocytes (%) (Auto) 13 % (0-9) Eosinophils (%) (Auto) 3 % (0-3) Basophils (%) (Auto) 2 % (0-3) Neutrophils # (Auto) 2.0 x10^3/uL (1.8-7.7) Lymphocytes # (Auto) 0.5 x10^3/uL (1.0-4.8) Monocytes # (Auto) 0.4 x10^3/uL (0.0-1.1) Eosinophils # (Auto) 0.1 x10^3/uL (0.0-0.7) Basophils # (Auto) 0.0 x10^3/uL (0.0-0.2) Sodium Level 140 mmol/L (136-145) Potassium Level 5.4 mmol/L (3.5-5.1) Chloride Level 101 mmol/L (98-107) Carbon Dioxide Level 25 mmol/L (21-32) Anion Gap 14 (6-14) Blood Urea Nitrogen 63 mg/dL (7-20) Creatinine 12.2 mg/dL (0.6-1.0) Estimated GFR (Cockcroft-Gault) 3.7 Glucose Level 129 mg/dL (70-99) Calcium Level 8.7 mg/dL (8.5-10.1) Total Bilirubin 0.5 mg/dL (0.2-1.0) Direct Bilirubin 0.2 mg/dL (0.0-0.2) Aspartate Amino Transf (AST/SGOT) 45 U/L (15-37) Alanine Aminotransferase (ALT/SGPT) 12 U/L (14-59) Alkaline Phosphatase 182 U/L (46-116) Troponin I Quantitative < 0.017 ng/mL (0.000-0.055) NP-Uuu-C-Type Natriuretic Peptide 13261 pg/mL (0-124) Total Protein 8.7 g/dL (6.4-8.2) Albumin 3.5 g/dL (3.4-5.0) Lipase 103 U/L (73-393) Laboratory Tests Test 02/16/21 15:24 White Blood Count 3.0 x10^3/uL (4.0-11.0) Red Blood Count 2.56 x10^6/uL (3.50-5.40) Hemoglobin 8.8 g/dL (12.0-15.5) Hematocrit 27.1 % (36.0-47.0) Mean Corpuscular Volume 106 fL (79-100) Mean Corpuscular Hemoglobin 35 pg (25-35) Mean Corpuscular Hemoglobin Concent 33 g/dL (31-37) Red Cell Distribution Width 17.7 % (11.5-14.5) Platelet Count 105 x10^3/uL (140-400) Neutrophils (%) (Auto) 67 % (31-73) Lymphocytes (%) (Auto) 16 % (24-48) Monocytes (%) (Auto) 13 % (0-9) Eosinophils (%) (Auto) 3 % (0-3) Basophils (%) (Auto) 2 % (0-3) Neutrophils # (Auto) 2.0 x10^3/uL (1.8-7.7) Lymphocytes # (Auto) 0.5 x10^3/uL (1.0-4.8) Monocytes # (Auto) 0.4 x10^3/uL (0.0-1.1) Eosinophils # (Auto) 0.1 x10^3/uL (0.0-0.7) Basophils # (Auto) 0.0 x10^3/uL (0.0-0.2) Sodium Level 140 mmol/L (136-145) Potassium Level 5.4 mmol/L (3.5-5.1) Chloride Level 101 mmol/L (98-107) Carbon Dioxide Level 25 mmol/L (21-32) Anion Gap 14 (6-14) Blood Urea Nitrogen 63 mg/dL (7-20) Creatinine 12.2 mg/dL (0.6-1.0) Estimated GFR (Cockcroft-Gault) 3.7 Glucose Level 129 mg/dL (70-99) Calcium Level 8.7 mg/dL (8.5-10.1) Total Bilirubin 0.5 mg/dL (0.2-1.0) Direct Bilirubin 0.2 mg/dL (0.0-0.2) Aspartate Amino Transf (AST/SGOT) 45 U/L (15-37) Alanine Aminotransferase (ALT/SGPT) 12 U/L (14-59) Alkaline Phosphatase 182 U/L (46-116) Troponin I Quantitative < 0.017 ng/mL (0.000-0.055) ZP-Piu-I-Type Natriuretic Peptide 23795 pg/mL (0-124) Total Protein 8.7 g/dL (6.4-8.2) Albumin 3.5 g/dL (3.4-5.0) Lipase 103 U/L (73-393) Images: Images PROCEDURE: CT CHEST ABDOMEN PELVIS WO IMPRESSION: 1. No acute process identified within the chest, abdomen or pelvis. 2. Cardiomegaly with moderate coronary artery calcifications. 3. Bilateral nonobstructing renal calculi. No ureteral calculi. No evidence for obstructive uropathy. CT HEAD IMPRESSION: Mild small vessel ischemic change, technically age indeterminate without recent prior imaging. Assessment/Plan Assessment/Plan Acute metabolic encephalopathy Acute volume overload due to missed HD x4 Medical nonadherence Hyperkalemia Pancytopenia Macrocytic anemia History of end-stage renal disease Mild transaminitis Admit to medicine for further management Nephrology consult for HD Pending TSH, B12, folate levels Consider dementia prevention protocol Provide adequate lighting (open curtains during the day, turn the lights off at night) Provide frequent personal contact with family, friends, and staff or TV Encourage early and frequent mobilization Rehab screening ordered IV Haldol as needed for agitation, consider sitter as needed if non-redirectable agitation Avoid physical restraints, catheters or tubes, and benzodiazepines Heparin for DVT prophylaxis Protonix GI prophylaxis ADA diet Full code Discussed with RN and SW Disposition inpatient management as above Surrogate decision maker is Imani Bronson Justifications for Admission Other Justification Hyperkalemia, hemodialysis GILA MURCIA MD Feb 16, 2021 16:35
--- NOTE | 2021-02-16 16:57 | EKG ---
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
[2021-02-16 17:40] VITALS: BP 136/61
[2021-02-16 19:29] VITALS: BP 112/55
[2021-02-16 22:54] VITALS: BP 116/59
[2021-02-16] MEDS ORDERED: MOXI3DRO11 OU (23:22)
[2021-02-16] MEDS ORDERED: SEVE800T27 PO (23:22)
[2021-02-16] MEDS ORDERED: DORZ10DR7 OU (23:22)
[2021-02-16] MEDS ORDERED: KETO5DRO24 OU (23:22)
[2021-02-16] MEDS ORDERED: [UNRECOGNIZED DRUG - CODE] PO (23:22)
[2021-02-17 03:00] VITALS: BP 126/63
[2021-02-17 03:15] VITALS: BP 114/60
[2021-02-17 07:00] VITALS: BP 124/54
[2021-02-17] MEDS ORDERED: ACETAMINOPHEN 325 MG TABLET. PO PRN (07:15)
[2021-02-17] MEDS ORDERED: DOCUSATE SODIUM 100 MG CAPSULE. PO PRN (07:15)
[2021-02-17] MEDS ORDERED: SENNOSIDES 8.6 MG TABLET PO PRN (07:15)
[2021-02-17] MEDS ORDERED: DEXTROSE 50% 25 GM / 50ML DISP.SYRIN. IV PRN (07:15)
[2021-02-17 08:55] LABS: BASO % 1 % (0-3); EOS # 0.1 x10^3/uL (0.0-0.7); EOS % 3 % (0-3); HEMATOCRIT 28.9 % (36.0-47.0); HEMOGLOBIN 8.9 g/dL (12.0-15.5); LYMPH # 0.6 x10^3/uL (1.0-4.8); LYMPH % 20 % (24-48); MEAN CORPUSCULAR HEMOGLOBIN 33 pg (25-35); MEAN CORPUSCULAR HGB CONC 31 g/dL (31-37); MEAN CORPUSCULAR VOLUME 108 fL (79-100); MONO # 0.5 x10^3/uL (0.0-1.1); MONO % 15 % (0-9); NEUT # 1.9 x10^3/uL (1.8-7.7); NEUT % 61 % (31-73); PLATELET COUNT 94 x10^3/uL (140-400); RED BLOOD COUNT 2.67 x10^6/uL (3.50-5.40); RED CELL DISTRIBUTION WIDTH 17.5 % (11.5-14.5); WHITE BLOOD COUNT 3.2 x10^3/uL (4.0-11.0)
[2021-02-17] MEDS: HEPARIN for SUB-Q USE 5,000 UNIT/ML VIAL. SQ SCH ×2 (08:55→20:35)
[2021-02-17 09:13] LABS: ALBUMIN 3.4 g/dL (3.4-5.0); ALBUMIN/GLOBULIN RATIO 0.7 (1.0-1.7); CALCIUM 8.5 mg/dL (8.5-10.1); CREATININE 12.5 mg/dL (0.6-1.0); GFR 3.6; TOTAL BILIRUBIN 0.5 mg/dL (0.2-1.0); TOTAL PROTEIN 8.1 g/dL (6.4-8.2)
--- NOTE | 2021-02-17 09:13 | PDOC2 ---
CONSULT Date of Consult Date of Consult DATE: 02/17/21 TIME: 09:13 Reason for Consult Reason for Consult: ESRD Source Source: Chart review, Patient History of Present Illness Reason for Visit: 65-year-old AAF presenting the emergency department on 02/16 with her daughter. She presented after missing 4 treatments of dialysis . Her last dialysis was on February 072020. She has been having pain and having worsening confusion. The primary reason the patient was brought to the hospital because her confusion which started about 2 to 3 days ago. No alleviating or exacerbating factors. The patient's pain initially the daughter had told us the patient was having back pain. She c/o pain was all over. Review of systems negative for abdominal pain vomiting fevers chills. She denies rash. She denies headache . All other review of systems negative. Past Medical History Cardiovascular: HTN, Hyperlipidemia Pulmonary: No pertinent hx GI: Constipation, GERD, GI bleed, Peptic Ulcer disease, Other Heme/Onc: Anemia NOS Hepatobiliary: Cirrhosis, Hep A/B/C, Other Psych: Addictions Rheumatologic: Rheumatoid arthritis Infectious disease: No pertinent hx Renal/: Chronic renal failure, Hematuria Endocrine: Diabetes, Hyperparathyroidism Past Surgical History Past Surgical History: Cholecystectomy, Tonsillectomy, Hysterectomy, Other Family History Family History: Alcohol Abuse, Cancer, High Cholestrol, Hypertension, Family History Unknown Social History ALCOHOL: none Drugs: None Domestic Violence: Neg Current Problem List Problem List Problems Medical Problems: (1) ESRD (end stage renal disease) Status: Acute Current Medications Current Medications Current Medications Sennosides (Senna) 17.2 mg PRN BID PRN PO CONSTIPATION; Start 02/17/21 at 07:15 Docusate Sodium (Colace) 100 mg PRN DAILY PRN PO HARD STOOLS; Start 02/17/21 at 07:15 Ondansetron HCl (Zofran) 4 mg PRN Q6HRS PRN IVP NAUSEA/VOMITING; Start 02/17/21 at 07:15 Dextrose (Dextrose 50%-Water Syringe) 12.5 gm PRN Q15MIN PRN IV SEE COMMENTS; Start 02/17/21 at 07:15 Acetaminophen (Tylenol) 650 mg PRN Q4HRS PRN PO TEMP OVER 100.4F OR MILD PAIN; Start 02/17/21 at 07:15 Heparin Sodium (Porcine) (Heparin Sodium) 5,000 unit Q12HR SQ Last administered on 02/17/21at 08:55; Start 02/17/21 at 09:00 Active Scripts Active Nyamyc (Nystatin) 15 Gm Powder 1 Mikey TP BID 14 Days Proair Hfa (Albuterol Sulfate) 8.5 Gm Hfa.aer.ad 2.5 Mg NEB PRN Q2HRS PRN 30 Days Pantoprazole Sodium (Pantoprazole Sodium) 40 Mg Tablet.dr 40 Mg PO DAILYAC 30 Days Reported Sevelamer HCl 800 Mg Tablet 800 Mg PO BID MDD Moxifloxacin (Moxifloxacin HCl) 3 Ml Drops 1 Drop OU BID Oxycodone-Acetaminophn 7.5-325 (Oxycodone HCl/Acetaminophen) 1 Each Tablet 1 Tab PO QID PRN Ketorolac Tromethamine 5 Ml Drops 1 Drp OU BID Dorzolamide-Timolol Eye Drops (Dorzolamide Hcl/Timolol Maleat) 10 Ml Drops 1 Drop OU BID Carvedilol 25 Mg Tablet 25 Mg PO BIDWMEALS Acetaminophen 500 Mg Tablet 1 Tab PO PRN Q6HRS PRN 15 Days Allergies Allergies: Coded Allergies: No Known Drug Allergies (Unverified , 02/10/21) ROS Review of System As per HPI, rest of the ROS is negative Physical Exam Physical Exam GEN.: No apparent distress. HEENT: OM moist NECK: Supple. LUNGS: Clear to auscultation, non labored HEART: RRR, S1, S2 present. ABDOMEN: Soft, nontender. Positive bowel sounds. EXTREMITIES: No LE edema ,Left extremity fistula without signs of any complications. NEUROLOGIC: grossly normal SKIN: No rash No CVA or SP tenderness, No Carbajal Vital Signs Vital Signs Date Time Temp Pulse Resp B/P (MAP) Pulse Ox O2 Delivery O2 Flow Rate FiO2 02/17/21 03:15 98.3 69 18 114/60 (78) 97 Nasal Cannula 2.0 98.3 Assessment & Plan ESRD 2/ 2 DM and HTN, On TTS schedule , missed treatments , dialysis today. Seen during treatment , tolerating well, continue as ordered, S[facility] . Scheduled for tomorrow as well per TTS schedule. If dced resume Dialysis as OP t omorrow . DC per primary hx of chronic non compliance HyperKalemia - dialysis today Acute metabolic encephalopathy Mild volume overload due to missed HD x4 - Ct with no evidence No acute process identified within the chest, abdomen or pelvis. Chronic anemia, leukopenia, thrombocytopenia, macrocytosis - bone marrow biopsy was recommended per heme/onc in the past H/o recurrent UGI bleeding, refractory ulcer - endotherapy 01/12/20 (has had 7 EGDs since 2016), past GDA embolization by and surgical evals (poor surgical candidate) S/P EGD on 10/11 Hx of Nonobstructing calculi in the right kidney with no hydronephrosis or obstructive uropathy seen. H/o pancreatitis, alcoholic GERD, cirrhosis, Hep C, h/o C Diff, h/o pancreatitis ETOH- DC planning per Primary Labs Labs Laboratory Tests Test 02/16/21 15:24 02/17/21 08:10 White Blood Count 3.0 x10^3/uL (4.0-11.0) 3.2 x10^3/uL (4.0-11.0) Red Blood Count 2.56 x10^6/uL (3.50-5.40) 2.67 x10^6/uL (3.50-5.40) Hemoglobin 8.8 g/dL (12.0-15.5) 8.9 g/dL (12.0-15.5) Hematocrit 27.1 % (36.0-47.0) 28.9 % (36.0-47.0) Mean Corpuscular Volume 106 fL (79-100) 108 fL (79-100) Mean Corpuscular Hemoglobin 35 pg (25-35) 33 pg (25-35) Mean Corpuscular Hemoglobin Concent 33 g/dL (31-37) 31 g/dL (31-37) Red Cell Distribution Width 17.7 % (11.5-14.5) 17.5 % (11.5-14.5) Platelet Count 105 x10^3/uL (140-400) 94 x10^3/uL (140-400) Neutrophils (%) (Auto) 67 % (31-73) 61 % (31-73) Lymphocytes (%) (Auto) 16 % (24-48) 20 % (24-48) Monocytes (%) (Auto) 13 % (0-9) 15 % (0-9) Eosinophils (%) (Auto) 3 % (0-3) 3 % (0-3) Basophils (%) (Auto) 2 % (0-3) 1 % (0-3) Neutrophils # (Auto) 2.0 x10^3/uL (1.8-7.7) 1.9 x10^3/uL (1.8-7.7) Lymphocytes # (Auto) 0.5 x10^3/uL (1.0-4.8) 0.6 x10^3/uL (1.0-4.8) Monocytes # (Auto) 0.4 x10^3/uL (0.0-1.1) 0.5 x10^3/uL (0.0-1.1) Eosinophils # (Auto) 0.1 x10^3/uL (0.0-0.7) 0.1 x10^3/uL (0.0-0.7) Basophils # (Auto) 0.0 x10^3/uL (0.0-0.2) 0.0 x10^3/uL (0.0-0.2) Sodium Level 140 mmol/L (136-145) Potassium Level 5.4 mmol/L (3.5-5.1) Chloride Level 101 mmol/L (98-107) Carbon Dioxide Level 25 mmol/L (21-32) Anion Gap 14 (6-14) Blood Urea Nitrogen 63 mg/dL (7-20) Creatinine 12.2 mg/dL (0.6-1.0) Estimated GFR (Cockcroft-Gault) 3.7 Glucose Level 129 mg/dL (70-99) Calcium Level 8.7 mg/dL (8.5-10.1) Total Bilirubin 0.5 mg/dL (0.2-1.0) Direct Bilirubin 0.2 mg/dL (0.0-0.2) Aspartate Amino Transf (AST/SGOT) 45 U/L (15-37) Alanine Aminotransferase (ALT/SGPT) 12 U/L (14-59) Alkaline Phosphatase 182 U/L (46-116) Troponin I Quantitative < 0.017 ng/mL (0.000-0.055) CM-Jjl-J-Type Natriuretic Peptide 86502 pg/mL (0-124) Total Protein 8.7 g/dL (6.4-8.2) Albumin 3.5 g/dL (3.4-5.0) Lipase 103 U/L (73-393) Laboratory Tests Test 02/16/21 15:24 02/17/21 08:10 White Blood Count 3.0 x10^3/uL (4.0-11.0) 3.2 x10^3/uL (4.0-11.0) Red Blood Count 2.56 x10^6/uL (3.50-5.40) 2.67 x10^6/uL (3.50-5.40) Hemoglobin 8.8 g/dL (12.0-15.5) 8.9 g/dL (12.0-15.5) Hematocrit 27.1 % (36.0-47.0) 28.9 % (36.0-47.0) Mean Corpuscular Volume 106 fL (79-100) 108 fL (79-100) Mean Corpuscular Hemoglobin 35 pg (25-35) 33 pg (25-35) Mean Corpuscular Hemoglobin Concent 33 g/dL (31-37) 31 g/dL (31-37) Red Cell Distribution Width 17.7 % (11.5-14.5) 17.5 % (11.5-14.5) Platelet Count 105 x10^3/uL (140-400) 94 x10^3/uL (140-400) Neutrophils (%) (Auto) 67 % (31-73) 61 % (31-73) Lymphocytes (%) (Auto) 16 % (24-48) 20 % (24-48) Monocytes (%) (Auto) 13 % (0-9) 15 % (0-9) Eosinophils (%) (Auto) 3 % (0-3) 3 % (0-3) Basophils (%) (Auto) 2 % (0-3) 1 % (0-3) Neutrophils # (Auto) 2.0 x10^3/uL (1.8-7.7) 1.9 x10^3/uL (1.8-7.7) Lymphocytes # (Auto) 0.5 x10^3/uL (1.0-4.8) 0.6 x10^3/uL (1.0-4.8) Monocytes # (Auto) 0.4 x10^3/uL (0.0-1.1) 0.5 x10^3/uL (0.0-1.1) Eosinophils # (Auto) 0.1 x10^3/uL (0.0-0.7) 0.1 x10^3/uL (0.0-0.7) Basophils # (Auto) 0.0 x10^3/uL (0.0-0.2) 0.0 x10^3/uL (0.0-0.2) Sodium Level 140 mmol/L (136-145) Potassium Level 5.4 mmol/L (3.5-5.1) Chloride Level 101 mmol/L (98-107) Carbon Dioxide Level 25 mmol/L (21-32) Anion Gap 14 (6-14) Blood Urea Nitrogen 63 mg/dL (7-20) Creatinine 12.2 mg/dL (0.6-1.0) Estimated GFR (Cockcroft-Gault) 3.7 Glucose Level 129 mg/dL (70-99) Calcium Level 8.7 mg/dL (8.5-10.1) Total Bilirubin 0.5 mg/dL (0.2-1.0) Direct Bilirubin 0.2 mg/dL (0.0-0.2) Aspartate Amino Transf (AST/SGOT) 45 U/L (15-37) Alanine Aminotransferase (ALT/SGPT) 12 U/L (14-59) Alkaline Phosphatase 182 U/L (46-116) Troponin I Quantitative < 0.017 ng/mL (0.000-0.055) WI-Fef-M-Type Natriuretic Peptide 08242 pg/mL (0-124) Total Protein 8.7 g/dL (6.4-8.2) Albumin 3.5 g/dL (3.4-5.0) Lipase 103 U/L (73-393) Review All relevant outside records, renal labs, imaging studies, telemetry/EKG's were reviewed. GINO TAN MD Feb 17, 2021 09:13
[2021-02-17 09:14] LABS: POTASSIUM 5.7 mmol/L (3.5-5.1)
--- NOTE | 2021-02-17 10:30 | PDOC ---
[facility] PROGRESS NOTE Date of Service DOS: DATE: 02/17/21 TIME: 10:28 Chief Complaint Chief Complaint Acute metabolic encephalopathy Acute volume overload due to missed HD x4 Medical nonadherence Hyperkalemia Pancytopenia Macrocytic anemia History of end-stage renal disease Mild transaminitis Admit to medicine for further management Nephrology consult for HD Pending TSH, B12, folate levels Consider dementia prevention protocol Provide adequate lighting (open curtains during the day, turn the lights off at night) Provide frequent personal contact with family, friends, and staff or TV Encourage early and frequent mobilization Rehab screening ordered IV Haldol as needed for agitation, consider sitter as needed if non-redirectable agitation Avoid physical restraints, catheters or tubes, and benzodiazepines Heparin for DVT prophylaxis Protonix GI prophylaxis ADA diet Full code Discussed with RN and SW Disposition inpatient management as above Surrogate decision maker is Imani Bronson History of Present Illness History of Present Illness 02/17/2021 No acute events overnight. Patient seen and examined bedside. Afebrile. No concerns from nursing at this time. Pending HD today. Patient's chart, labs, images were reviewed and discussed with RN 65-year-old female presenting the emergency department today with her daughter. She presents after missing dialysis 4 times. Her last dialysis was on February 072020. She has been having pain and having worsening confusion. The primary reason the patient was brought to the hospital because her confusion which started about 2 to 3 days ago. No alleviating or exacerbating factors. Her daughter describes the confusion as forgetting things that she normally remembers. The patient's pain initially the daughter had told us the patient was having back pain. She told our nurse that she was having chest pain. She told me that her pain was all over. Review of systems negative for abdominal pain vomiting fevers chills. She denies rash. She denies headache or nuchal rigidity. All other review of systems negative. ED course: 65-year-old female presenting with confusion. During history and physical the patient is resting comfortably in examination room and does not appear to be any pain. EKG obtained and reviewed by myself contemporaneously in real-time shows sinus rhythm with a regular rate. ST segments are congruent. Not suggestive of acute ischemia. Nonspecific T wave inversion in lead III. Blood work ordered. Patient was hypoxic on arrival and placed on 4 L nasal can nula. Vitals/I&O Vitals/I&O: Vital Signs Date Time Temp Pulse Resp B/P (MAP) Pulse Ox O2 Delivery O2 Flow Rate FiO2 02/17/21 07:00 98.5 68 18 124/54 (77) 99 Nasal Cannula 2.0 98.5 I & O 02/16/21 02/16/21 02/17/21 15:00 23:00 07:00 Intake Total 0 ml 0 ml Output Total 0 ml Balance 0 ml 0 ml Physical Exam General: Alert, Cooperative Heart: Regular rate, No murmurs Lungs: Clear Abdomen: No tenderness Extremities: Other (Pedal edema) Labs Labs: Laboratory Tests Test 02/16/21 15:24 02/17/21 08:10 White Blood Count 3.0 x10^3/uL (4.0-11.0) 3.2 x10^3/uL (4.0-11.0) Red Blood Count 2.56 x10^6/uL (3.50-5.40) 2.67 x10^6/uL (3.50-5.40) Hemoglobin 8.8 g/dL (12.0-15.5) 8.9 g/dL (12.0-15.5) Hematocrit 27.1 % (36.0-47.0) 28.9 % (36.0-47.0) Mean Corpuscular Volume 106 fL (79-100) 108 fL (79-100) Mean Corpuscular Hemoglobin 35 pg (25-35) 33 pg (25-35) Mean Corpuscular Hemoglobin Concent 33 g/dL (31-37) 31 g/dL (31-37) Red Cell Distribution Width 17.7 % (11.5-14.5) 17.5 % (11.5-14.5) Platelet Count 105 x10^3/uL (140-400) 94 x10^3/uL (140-400) Neutrophils (%) (Auto) 67 % (31-73) 61 % (31-73) Lymphocytes (%) (Auto) 16 % (24-48) 20 % (24-48) Monocytes (%) (Auto) 13 % (0-9) 15 % (0-9) Eosinophils (%) (Auto) 3 % (0-3) 3 % (0-3) Basophils (%) (Auto) 2 % (0-3) 1 % (0-3) Neutrophils # (Auto) 2.0 x10^3/uL (1.8-7.7) 1.9 x10^3/uL (1.8-7.7) Lymphocytes # (Auto) 0.5 x10^3/uL (1.0-4.8) 0.6 x10^3/uL (1.0-4.8) Monocytes # (Auto) 0.4 x10^3/uL (0.0-1.1) 0.5 x10^3/uL (0.0-1.1) Eosinophils # (Auto) 0.1 x10^3/uL (0.0-0.7) 0.1 x10^3/uL (0.0-0.7) Basophils # (Auto) 0.0 x10^3/uL (0.0-0.2) 0.0 x10^3/uL (0.0-0.2) Sodium Level 140 mmol/L (136-145) 143 mmol/L (136-145) Potassium Level 5.4 mmol/L (3.5-5.1) 5.7 mmol/L (3.5-5.1) Chloride Level 101 mmol/L (98-107) 103 mmol/L (98-107) Carbon Dioxide Level 25 mmol/L (21-32) 24 mmol/L (21-32) Anion Gap 14 (6-14) 16 (6-14) Blood Urea Nitrogen 63 mg/dL (7-20) 66 mg/dL (7-20) Creatinine 12.2 mg/dL (0.6-1.0) 12.5 mg/dL (0.6-1.0) Estimated GFR (Cockcroft-Gault) 3.7 3.6 Glucose Level 129 mg/dL (70-99) 82 mg/dL (70-99) Calcium Level 8.7 mg/dL (8.5-10.1) 8.5 mg/dL (8.5-10.1) Total Bilirubin 0.5 mg/dL (0.2-1.0) 0.5 mg/dL (0.2-1.0) Direct Bilirubin 0.2 mg/dL (0.0-0.2) Aspartate Amino Transf (AST/SGOT) 45 U/L (15-37) 32 U/L (15-37) Alanine Aminotransferase (ALT/SGPT) 12 U/L (14-59) 14 U/L (14-59) Alkaline Phosphatase 182 U/L (46-116) 186 U/L (46-116) Troponin I Quantitative < 0.017 ng/mL (0.000-0.055) LV-Sur-Q-Type Natriuretic Peptide 06848 pg/mL (0-124) Total Protein 8.7 g/dL (6.4-8.2) 8.1 g/dL (6.4-8.2) Albumin 3.5 g/dL (3.4-5.0) 3.4 g/dL (3.4-5.0) Lipase 103 U/L (73-393) BUN/Creatinine Ratio 5 (6-20) Albumin/Globulin Ratio 0.7 (1.0-1.7) Assessment and Plan Assessmemt and Plan Problems Medical Problems: (1) ESRD (end stage renal disease) Status: Acute Comment Review of Relevant I have reviewed the following items tamika (where applicable) has been applied. Medications: Current Medications Medications (Trade) Dose Ordered Sig/Kimberly Route PRN Reason Start Time Stop Time Status Last Admin Dose Admin Heparin Sodium (Porcine) (Heparin Sodium) 5,000 unit Q12HR SQ 02/17/21 09:00 02/17/21 08:55 Justifications for Admission Other Justification Hyperkalemia, hemodialysis GILA MURCIA MD Feb 17, 2021 10:30
[2021-02-17 11:00] VITALS: BP 106/50
[2021-02-17] MEDS ORDERED: IV NORMAL SALINE 1000ML BAG 1,000 ML IV PRN ×2 (11:15)
[2021-02-17] MEDS ORDERED: LIDOCAINE 1% PF 2 ML VIAL. INJ PRN (11:15)
[2021-02-17] MEDS ORDERED: ALBUMIN HUMAN 25% 200 ML IV PRN (11:15)
[2021-02-17] MEDS ORDERED: DIALYSIS PATIENT. MC PRN ×2 (11:15)
[2021-02-17] MEDS ORDERED: diphenhydrAMINE 50 MG/ML VIAL IV PRN (11:15)
--- NOTE | 2021-02-17 12:55 | NUR ---
SS following for discharge planning. SS reviewed pt chart and discussed with pt RN. Pt is from home and is currently requiring oxygen at two liters nasal canula. Pt has outpatient dialysis at [facility], ; fax [phone], Saturday, , and Saturday. Pt has missed dialysis. Last date of dialysis was 02/12/2021. Pt had cataract surgery on right eye five days ago. Pt has [facility]BS services through the [facility]. PT/OT ordered. SS will continue to follow for discharge planning.
[2021-02-17] MEDS: diphenhydrAMINE 50 MG/ML VIAL IV PRN (13:28)
[2021-02-17] MEDS: ONDANSETRON PF 4 MG/2 ML VIAL. IVP PRN (17:48)
[2021-02-17] MEDS: oxyCODONE/APAP 5/325 1 TAB TABLET PO PRN (17:50)
[2021-02-17 19:45] VITALS: BP 122/51
[2021-02-17 22:35] VITALS: BP 122/58
[2021-02-18] MEDS: oxyCODONE/APAP 5/325 1 TAB TABLET PO PRN ×4 (01:51→20:44)
[2021-02-18 03:50] VITALS: BP 96/39
[2021-02-18 07:00] VITALS: BP 111/60
[2021-02-18] MEDS: diphenhydrAMINE 50 MG/ML VIAL IV PRN (07:58)
[2021-02-18] MEDS: PANTOPRAZOLE 40 MG TABLET.DR. PO SCH (07:58)
[2021-02-18] MEDS ORDERED: ALBUMIN HUMAN 25% 200 ML IV PRN (08:00)
[2021-02-18] MEDS ORDERED: IV NORMAL SALINE 1000ML BAG 1,000 ML IV PRN ×2 (08:00)
[2021-02-18] MEDS: HEPARIN for SUB-Q USE 5,000 UNIT/ML VIAL. SQ SCH ×2 (08:11→20:43)
[2021-02-18 08:15] LABS: BASO % 1 % (0-3); EOS # 0.1 x10^3/uL (0.0-0.7); EOS % 3 % (0-3); HEMATOCRIT 28.5 % (36.0-47.0); HEMOGLOBIN 8.9 g/dL (12.0-15.5); LYMPH # 0.6 x10^3/uL (1.0-4.8); LYMPH % 22 % (24-48); MEAN CORPUSCULAR HEMOGLOBIN 33 pg (25-35); MEAN CORPUSCULAR HGB CONC 31 g/dL (31-37); MEAN CORPUSCULAR VOLUME 106 fL (79-100); MONO # 0.5 x10^3/uL (0.0-1.1); MONO % 17 % (0-9); NEUT # 1.6 x10^3/uL (1.8-7.7); NEUT % 56 % (31-73); PLATELET COUNT 93 x10^3/uL (140-400); RED BLOOD COUNT 2.68 x10^6/uL (3.50-5.40); RED CELL DISTRIBUTION WIDTH 17.3 % (11.5-14.5); WHITE BLOOD COUNT 2.9 x10^3/uL (4.0-11.0)
[2021-02-18] MEDS: SEVELAMER CARBONATE 800 MG TABLET. PO SCH ×2 (08:27→17:35)
[2021-02-18 08:34] LABS: CALCIUM 8.6 mg/dL (8.5-10.1); CREATININE 6.7 mg/dL (0.6-1.0); GFR 7.5; MAGNESIUM 2.2 mg/dL (1.8-2.4); PHOSPHORUS 5.5 mg/dL (2.6-4.7); POTASSIUM 4.3 mmol/L (3.5-5.1)
[2021-02-18] MEDS ORDERED: DIALYSIS PATIENT. MC PRN ×2 (10:30)
--- NOTE | 2021-02-18 11:03 | PDOC ---
[employer] [facility] PROGRESS NOTE Date of Service DOS: DATE: 02/18/21 TIME: 11:03 Chief Complaint Chief Complaint Acute metabolic encephalopathy Acute volume overload due to missed HD x4 Medical nonadherence Hyperkalemia Pancytopenia Macrocytic anemia History of end-stage renal disease Mild transaminitis Admit to medicine for further management Nephrology consult for HD Pending TSH, B12, folate levels Consider dementia prevention protocol Provide adequate lighting (open curtains during the day, turn the lights off at night) Provide frequent personal contact with family, friends, and staff or TV Encourage early and frequent mobilization Rehab screening ordered IV Haldol as needed for agitation, consider sitter as needed if non-redirectable agitation Avoid physical restraints, catheters or tubes, and benzodiazepines Heparin for DVT prophylaxis Protonix GI prophylaxis ADA diet Full code Discussed with RN and SW Disposition inpatient management as above Surrogate decision maker is Imani Bronson History of Present Illness History of Present Illness 02/18/2021 No acute events overnight. Patient seen and examined in dialysis. BM x1 yesterday. No concerns from nursing at this time. Patient's chart, labs, images were reviewed and discussed with RN 02/17/2021 No acute events overnight. Patient seen and examined bedside. Afebrile. No concerns from nursing at this time. Pending HD today. Patient's chart, labs, images were reviewed and discussed with RN 65-year-old female presenting the emergency department today with her daughter. She presents after missing dialysis 4 times. Her last dialysis was on February 072020. She has been having pain and having worsening confusion. The primary reason the patient was brought to the hospital because her confusion which started about 2 to 3 days ago. No alleviating or exacerbating factors. Her daughter describes the confusion as forgetting things that she normally remembers. The patient's pain initially the daughter had told us the patient was having back pain. She told our nurse that she was having chest pain. She told me that her pain was all over. Review of systems negative for abdominal pain vomiting fevers chills. She denies rash. She denies headache or nuchal rigidity. All other review of systems negative. ED course: 65-year-old female presenting with confusion. During history and physical the patient is resting comfortably in examination room and does not appear to be any pain. EKG obtained and reviewed by myself contemporaneously in real-time shows sinus rhythm with a regular rate. ST segments are congruent. Not suggestive of acute ischemia. Nonspecific T wave inversion in lead III. Blood work ordered. Patient was hypoxic on arrival and placed on 4 L nasal cannula. Vitals/I&O Vitals/I&O: Vital Signs Date Time Temp Pulse Resp B/P (MAP) Pulse Ox O2 Delivery O2 Flow Rate FiO2 02/18/21 08:28 20 97 Nasal Cannula 2.0 02/18/21 07:00 99.1 73 111/60 (77) 99.1 I & O 02/17/21 02/17/21 02/18/21 15:00 23:00 07:00 Intake Total 240 ml Balance 240 ml Physical Exam General: Alert, Cooperative Heart: Regular rate, No murmurs Lungs: Clear Abdomen: No tenderness Extremities: Other (Pedal edema) Labs Labs: Laboratory Tests Test 02/17/21 13:43 02/18/21 07:40 02/18/21 08:51 Hepatitis B Surface Antigen Nonreactive (Nonreactive) Hepatitis B Surface Antibody Nonreactive White Blood Count 2.9 x10^3/uL (4.0-11.0) Red Blood Count 2.68 x10^6/uL (3.50-5.40) Hemoglobin 8.9 g/dL (12.0-15.5) Hematocrit 28.5 % (36.0-47.0) Mean Corpuscular Volume 106 fL (79-100) Mean Corpuscular Hemoglobin 33 pg (25-35) Mean Corpuscular Hemoglobin Concent 31 g/dL (31-37) Red Cell Distribution Width 17.3 % (11.5-14.5) Platelet Count 93 x10^3/uL (140-400) Neutrophils (%) (Auto) 56 % (31-73) Lymphocytes (%) (Auto) 22 % (24-48) Monocytes (%) (Auto) 17 % (0-9) Eosinophils (%) (Auto) 3 % (0-3) Basophils (%) (Auto) 1 % (0-3) Neutrophils # (Auto) 1.6 x10^3/uL (1.8-7.7) Lymphocytes # (Auto) 0.6 x10^3/uL (1.0-4.8) Monocytes # (Auto) 0.5 x10^3/uL (0.0-1.1) Eosinophils # (Auto) 0.1 x10^3/uL (0.0-0.7) Basophils # (Auto) 0.0 x10^3/uL (0.0-0.2) Sodium Level 142 mmol/L (136-145) Potassium Level 4.3 mmol/L (3.5-5.1) Chloride Level 102 mmol/L (98-107) Carbon Dioxide Level 29 mmol/L (21-32) Anion Gap 11 (6-14) Blood Urea Nitrogen 28 mg/dL (7-20) Creatinine 6.7 mg/dL (0.6-1.0) Estimated GFR (Cockcroft-Gault) 7.5 Glucose Level 77 mg/dL (70-99) Calcium Level 8.6 mg/dL (8.5-10.1) Phosphorus Level 5.5 mg/dL (2.6-4.7) Magnesium Level 2.2 mg/dL (1.8-2.4) Glucose (Fingerstick) 103 mg/dL (70-99) Assessment and Plan Assessmemt and Plan Problems Medical Problems: (1) Dyspnea Status: Acute (2) ESRD (end stage renal disease) Status: Acute (3) Hemoglobin low Status: Acute (4) Hypoxia Status: Acute (5) Missed dialysis Status: Acute Comment Review of Relevant I have reviewed the following items tamika (where applicable) has been applied. Medications: Current Medications Medications (Trade) Dose Ordered Sig/Kimberly Route PRN Reason Start Time Stop Time Status Last Admin Dose Admin Diphenhydramine HCl (Benadryl) 25 mg 1X PRN PRN IV ITCHING 02/17/21 11:15 02/18/21 11:14 02/18/21 07:58 Oxycodone/ Acetaminophen (Percocet 5/325) 1 tab PRN Q6HRS PRN PO MODERATE-SEVERE PAIN 02/17/21 16:15 02/18/21 07:58 Pantoprazole Sodium (Protonix) 40 mg DAILYAC PO 02/18/21 07:30 02/18/21 07:58 Sevelamer Carbonate (Renvela) 800 mg BIDWMEALS PO 02/18/21 08:00 02/18/21 08:27 Justifications for Admission Other Justification Hyperkalemia, hemodialysis GILA MURCIA MD Feb 18, 2021 11:03
--- NOTE | 2021-02-18 12:00 | PDOC ---
Renal-Progress Notes Subjective Notes Notes NO NEW COMPLAINTS History of Present Illness Hx of present illness STABLE Vitals Vitals Vital Signs Date Time Temp Pulse Resp B/P (MAP) Pulse Ox O2 Delivery O2 Flow Rate FiO2 02/18/21 08:28 20 97 Nasal Cannula 2.0 02/18/21 07:00 99.1 73 111/60 (77) 99.1 Weight Weight [ ] I.O. Intake and Output Intake and Output 02/18/21 07:00 Intake Total 240 ml Balance 240 ml Intake Oral 240 ml Labs Labs Laboratory Tests Test 02/17/21 13:43 02/18/21 07:40 02/18/21 08:51 Hepatitis B Surface Antigen Nonreactive (Nonreactive) Hepatitis B Surface Antibody Nonreactive White Blood Count 2.9 x10^3/uL (4.0-11.0) Red Blood Count 2.68 x10^6/uL (3.50-5.40) Hemoglobin 8.9 g/dL (12.0-15.5) Hematocrit 28.5 % (36.0-47.0) Mean Corpuscular Volume 106 fL (79-100) Mean Corpuscular Hemoglobin 33 pg (25-35) Mean Corpuscular Hemoglobin Concent 31 g/dL (31-37) Red Cell Distribution Width 17.3 % (11.5-14.5) Platelet Count 93 x10^3/uL (140-400) Neutrophils (%) (Auto) 56 % (31-73) Lymphocytes (%) (Auto) 22 % (24-48) Monocytes (%) (Auto) 17 % (0-9) Eosinophils (%) (Auto) 3 % (0-3) Basophils (%) (Auto) 1 % (0-3) Neutrophils # (Auto) 1.6 x10^3/uL (1.8-7.7) Lymphocytes # (Auto) 0.6 x10^3/uL (1.0-4.8) Monocytes # (Auto) 0.5 x10^3/uL (0.0-1.1) Eosinophils # (Auto) 0.1 x10^3/uL (0.0-0.7) Basophils # (Auto) 0.0 x10^3/uL (0.0-0.2) Sodium Level 142 mmol/L (136-145) Potassium Level 4.3 mmol/L (3.5-5.1) Chloride Level 102 mmol/L (98-107) Carbon Dioxide Level 29 mmol/L (21-32) Anion Gap 11 (6-14) Blood Urea Nitrogen 28 mg/dL (7-20) Creatinine 6.7 mg/dL (0.6-1.0) Estimated GFR (Cockcroft-Gault) 7.5 Glucose Level 77 mg/dL (70-99) Calcium Level 8.6 mg/dL (8.5-10.1) Phosphorus Level 5.5 mg/dL (2.6-4.7) Magnesium Level 2.2 mg/dL (1.8-2.4) Glucose (Fingerstick) 103 mg/dL (70-99) Review of Systems Constitutional: yes: weakness, alert Ears/Nose/Throat: Yes: no symptom reported Eyes: Yes: no symptom reported Pulmonary: Yes no symptom reported Cardiovascular: Yes no symptom reported Gastrointestional: Yes: no symptom reported Genitourinary: Yes: no symptom reported Musculoskeletal: Yes: no symptom reported Skin: Yes no symptom reported Psychiatric/Neurological: Yes: no symptom reported Endocrine: Yes: no symptom reported Physical Exam General Appearance: no apparent distress Skin: warm Respiratory: decreased breath sounds Heart: S1S2 Abdomen: soft, bowel sounds present Genitourinary: bladder flat Extremities: pulses present Neurology: alert Assessment Assessment IMP ESRD ANEMIA NON COMPLIANCE HTN DM II VOLUME OVERLOAD PLAN HD TTS HD TODAY UF TO TW OSMIN NEEDED ENC COMPLIANCE LINNEA SHULTZ MD Feb 18, 2021 12:00
[2021-02-18 15:00] VITALS: BP 110/51
[2021-02-18 20:00] VITALS: BP 130/56
[2021-02-18] MEDS ORDERED: DARBEPOETIN ALFA 60 MCG/0.3 ML DISP.SYRIN. SQ SCH (21:00)
[2021-02-18 23:05] VITALS: BP 110/48
[2021-02-19 03:32] VITALS: BP 112/50
[2021-02-19 07:00] VITALS: BP 120/58
[2021-02-19] MEDS: oxyCODONE/APAP 5/325 1 TAB TABLET PO PRN ×2 (08:19→20:05)
[2021-02-19] MEDS: SEVELAMER CARBONATE 800 MG TABLET. PO SCH ×2 (08:19→17:58)
[2021-02-19] MEDS: ONDANSETRON PF 4 MG/2 ML VIAL. IVP PRN (08:19)
[2021-02-19] MEDS: PANTOPRAZOLE 40 MG TABLET.DR. PO SCH (08:19)
[2021-02-19] MEDS: HEPARIN for SUB-Q USE 5,000 UNIT/ML VIAL. SQ SCH ×2 (08:24→20:04)
--- NOTE | 2021-02-19 08:45 | RAD ---
XR BILATERAL HIP (WITH OR WITHOUT PELVIS) 2 VIEWS_RIGHT Clinical Indication: Reason: fall at home, right hip/leg pain / Spl. 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 No acute fracture or dislocation of the righ t hip is seen. 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 There are old fractures of the right pubic rami. Stable appearance of the symphysis pubis. The sacroiliac joints appear symmetric. Arterial evert cifications are severe. Stable calcification to the right of L5. IMPRESSION: No acute fracture. Electronically signed by: Dilan Johnson MD (02/19/2021 8:42 AM) [id number]
[2021-02-19 11:00] VITALS: BP 137/58
--- NOTE | 2021-02-19 11:16 | PDOC ---
[employer] PROGRESS NOTE Date of Service DOS: DATE: 02/19/21 TIME: 11:14 Chief Complaint Chief Complaint Acute metabolic encephalopathy Acute volume overload due to missed HD x4 Medical nonadherence Hyperkalemia Pancytopenia Macrocytic anemia History of end-stage renal disease Mild transaminitis Admit to medicine for further management Nephrology consult for HD Pending TSH, B12, folate levels Consider dementia prevention protocol Provide adequate lighting (open curtains during the day, turn the lights off at night) Provide frequent personal contact with family, friends, and staff or TV Encourage early and frequent mobilization Rehab screening ordered IV Haldol as needed for agitation, consider sitter as needed if non-redirectable agitation Avoid physical restraints, catheters or tubes, and benzodiazepines Heparin for DVT prophylaxis Protonix GI prophylaxis ADA diet Full code Discussed with RN and SW Disposition inpatient management as above Surrogate decision maker is Imani Bronson History of Present Illness History of Present Illness 02/19/2021 No acute events overnight. Patient tolerated dialysis yesterday well. Pending placement issues just before going home. There is apparently nobody to pick her up or take care of her because patient recently had cataract surgery. Will discuss more with social work on Saturday for discharge planning. Patient's chart, labs, images were reviewed and discussed with RN 02/18/2021 No acute events overnight. Patient seen and examined in dialysis. BM x1 yesterday. No concerns from nursing at this time. Patient's chart, labs, images were reviewed and discussed with RN 02/17/2021 No acute events overnight. Patient seen and examined bedside. Afebrile. No concerns from nursing at this time. Pending HD today. Patient's chart, labs, images were reviewed and discussed with RN 65-year-old female presenting the emergency department today with her daughter. She presents after missing dialysis 4 times. Her last dialysis was on February 072020. She has been having pain and having worsening confusion. The primary reason the patient was brought to the hospital because her confusion which started about 2 to 3 days ago. No alleviating or exacerbating factors. Her daughter describes the confusion as forgetting things that she normally remembers. The patient's pain initially the daughter had told us the patient was having back pain. She told our nurse that she was having chest pain. She told me that her pain was all over. Review of systems negative for abdominal pain vomiting fevers chills. She denies rash. She denies headache or nuchal rigidity. All other review of systems negative. ED course: 65-year-old female presenting with confusion. During history and physical the patient is resting comfortably in examination room and does not appear to be any pain. EKG obtained and reviewed by myself contemporaneously in real-time shows sinus rhythm with a regular rate. ST segments are congruent. Not suggestive of acute ischemia. Nonspecific T wave inversion in lead III. Blood work ordered. Patient was hypoxic on arrival and placed on 4 L nasal cannula. Vitals/I&O Vitals/I&O: Vital Signs Date Time Temp Pulse Resp B/P (MAP) Pulse Ox O2 Delivery O2 Flow Rate FiO2 02/19/21 08:49 97 Nasal Cannula 2.0 02/19/21 07:00 98.5 82 18 120/58 (78) 98.5 I & O 02/18/21 02/18/21 02/19/21 15:00 23:00 07:00 Intake Total 300 ml 240 ml 0 ml Balance 300 ml 240 ml 0 ml Physical Exam General: Alert, Cooperative Heart: Regular rate, No murmurs Lungs: Clear Abdomen: No tenderness Extremities: Other (Pedal edema) Labs Labs: Laboratory Tests Test 02/18/21 13:04 Glucose (Fingerstick) 93 mg/dL (70-99) Assessment and Plan Assessmemt and Plan Problems Medical Problems: (1) Dyspnea Status: Acute (2) ESRD (end stage renal disease) Status: Acute (3) Hemoglobin low Status: Acute (4) Hypoxia Status: Acute (5) Missed dialysis Status: Acute Comment Review of Relevant I have reviewed the following items tamika (where applicable) has been applied. Medications: Current Medications Medications (Trade) Dose Ordered Sig/Kimberly Route PRN Reason Start Time Stop Time Status Last Admin Dose Admin Darbepoetin [place] (ARANESP for DIALYSIS PTS) 60 mcg Sa@2100 SQ 02/18/21 21:00 02/18/21 20:43 Justifications for Admission Other Justification Hyperkalemia, hemodialysis GILA MURCIA MD Feb 19, 2021 11:16
--- NOTE | 2021-02-19 12:03 | PDOC ---
Renal-Progress Notes Subjective Notes Notes NO NEW COMPLAINTS History of Present Illness Hx of present illness STABLE Vitals Vitals Vital Signs Date Time Temp Pulse Resp B/P (MAP) Pulse Ox O2 Delivery O2 Flow Rate FiO2 02/19/21 08:49 97 Nasal Cannula 2.0 02/19/21 07:00 98.5 82 18 120/58 (78) 98.5 Weight Weight [ ] I.O. Intake and Output Intake and Output 02/19/21 07:00 Intake Total 540 ml Balance 540 ml Intake Oral 540 ml # Voids 1 Labs Labs Laboratory Tests Test 02/18/21 13:04 Glucose (Fingerstick) 93 mg/dL (70-99) Review of Systems Constitutional: yes: weakness, alert Ears/Nose/Throat: Yes: no symptom reported Eyes: Yes: no symptom reported Pulmonary: Yes no symptom reported Cardiovascular: Yes no symptom reported Gastrointestional: Yes: no symptom reported Genitourinary: Yes: no symptom reported Musculoskeletal: Yes: no symptom reported Skin: Yes no symptom reported Psychiatric/Neurological: Yes: no symptom reported Endocrine: Yes: no symptom reported Physical Exam General Appearance: no apparent distress Skin: warm Respiratory: decreased breath sounds Heart: S1S2 Abdomen: soft, bowel sounds present Genitourinary: bladder flat Extremities: pulses present Neurology: alert Assessment Assessment IMP ESRD ANEMIA NON COMPLIANCE HTN DM II VOLUME OVERLOAD-IMPROVED PLAN HD TTS OSMIN NEEDED ENC COMPLIANCE LINNEA SHULTZ MD Feb 19, 2021 12:03
[2021-02-19 15:00] VITALS: BP 124/51
[2021-02-19] MEDS ORDERED: diphenhydrAMINE 50 MG/ML VIAL IVP PRN (16:45)
[2021-02-19] MEDS: diphenhydrAMINE HCL 25 MG CAPSULE PO PRN (17:58)
[2021-02-19 19:52] VITALS: BP 132/53
[2021-02-19 23:20] VITALS: BP 125/56
[2021-02-20 03:08] VITALS: BP 164/84
[2021-02-20 07:00] VITALS: BP 113/48
[2021-02-20] MEDS: diphenhydrAMINE HCL 25 MG CAPSULE PO PRN (07:38)
[2021-02-20] MEDS: SEVELAMER CARBONATE 800 MG TABLET. PO SCH (07:38)
[2021-02-20] MEDS: PANTOPRAZOLE 40 MG TABLET.DR. PO SCH (07:38)
--- NOTE | 2021-02-20 07:45 | PDOC ---
[employer] PROGRESS NOTE Date of Service DOS: DATE: 02/20/21 TIME: 07:42 Chief Complaint Chief Complaint Acute metabolic encephalopathy Acute volume overload due to missed HD x4 Medical nonadherence Hyperkalemia Pancytopenia Macrocytic anemia History of end-stage renal disease Mild transaminitis Admit to medicine for further management Nephrology consult for HD Pending TSH, B12, folate levels Consider dementia prevention protocol Provide adequate lighting (open curtains during the day, turn the lights off at night) Provide frequent personal contact with family, friends, and staff or TV Encourage early and frequent mobilization Rehab screening ordered IV Haldol as needed for agitation, consider sitter as needed if non-redirectable agitation Avoid physical restraints, catheters or tubes, and benzodiazepines Heparin for DVT prophylaxis Protonix GI prophylaxis ADA diet Full code Discussed with RN and SW Disposition inpatient management as above Surrogate decision maker is Imani Bronson History of Present Illness History of Present Illness 02/20/2021 Patient breathing room air, afebrile. There was some social issues that preclude her being discharged over the weekend; namely she had no one who would be able to take her to dialysis. Discussed with health social work professor for discharge planning today. PT recommending jail, patient refused. Charts, labs, imaging reviewed; discussed with RN. Patient's daughter is at bedside, she states that she has a chair ready for resumption of her normal dialysis schedule Saturday//Saturday. Greater than 30 minutes spent managing the discharge of this patient. 02/19/2021 No acute events overnight. Patient tolerated dialysis yesterday well. Pending placement issues just before going home. There is apparently nobody to pick her up or take care of her because patient recently had cataract surgery. Will discuss more with social work on Saturday for discharge planning. Patient's chart, labs, images were reviewed and discussed with RN 02/18/2021 No acute events overnight. Patient seen and examined in dialysis. BM x1 yesterday. No concerns from nursing at this time. Patient's chart, labs, images were reviewed and discussed with RN 02/17/2021 No acute events overnight. Patient seen and examined bedside. Afebrile. No concerns from nursing at this time. Pending HD today. Patient's chart, labs, images were reviewed and discussed with RN 65-year-old female presenting the emergency department today with her daughter. She presents after missing dialysis 4 times. Her last dialysis was on February 072020. She has been having pain and having worsening confusion. The primary reason the patient was brought to the hospital because her confusion which started about 2 to 3 days ago. No alleviating or exacerbating factors. Her daughter describes the confusion as forgetting things that she normally remembers. The patient's pain initially the daughter had told us the patient was having back pain. She told our nurse that she was having chest pain. She told me that her pain was all over. Review of systems negative for abdominal pain vomiting fevers chills. She denies rash. She denies headache or nuchal rigidity. All other review of systems negative. ED course: 65-year-old female presenting with confusion. During history and ph ysical the patient is resting comfortably in examination room and does not appear to be any pain. EKG obtained and reviewed by myself contemporaneously in real-time shows sinus rhythm with a regular rate. ST segments are congruent. Not suggestive of acute ischemia. Nonspecific T wave inversion in lead III. Blood work ordered. Patient was hypoxic on arrival and placed on 4 L nasal cannula. Vitals/I&O Vitals/I&O: Vital Signs Date Time Temp Pulse Resp B/P (MAP) Pulse Ox O2 Delivery O2 Flow Rate FiO2 02/20/21 03:08 98.0 83 16 164/84 (110) 97 Room Air 98.0 02/19/21 08:49 2.0 I & O 02/19/21 02/19/21 02/20/21 15:00 23:00 07:00 Intake Total 440 ml 0 ml Balance 440 ml 0 ml Physical Exam General: Alert, Cooperative Heart: Regular rate, No murmurs Lungs: Clear Abdomen: No tenderness Extremities: Other (Pedal edema) Skin: No rashes Labs Labs: Laboratory Tests Test 02/19/21 12:17 02/19/21 17:06 02/19/21 20:52 Glucose (Fingerstick) 108 mg/dL (70-99) 123 mg/dL (70-99) 144 mg/dL (70-99) Assessment and Plan Assessmemt and Plan Problems Medical Problems: (1) Dyspnea Status: Acute (2) ESRD (end stage renal disease) Status: Acute (3) Hemoglobin low Status: Acute (4) Hypoxia Status: Acute (5) Missed dialysis Status: Acute Comment Review of Relevant I have reviewed the following items tamika (where applicable) has been applied. Medications: Current Medications Medications (Trade) Dose Ordered Sig/Kimberly Route PRN Reason Start Time Stop Time Status Last Admin Dose Admin Diphenhydramine HCl (Benadryl) 25 mg PRN Q6HRS PRN PO ITCHING 02/19/21 16:45 02/19/21 17:58 Justifications for Admission Other Justification Hyperkalemia, hemodialysis REMINGTON BACK MD Feb 20, 2021 07:45
[2021-02-20] MEDS: HEPARIN for SUB-Q USE 5,000 UNIT/ML VIAL. SQ SCH (07:46)
[2021-02-20 10:39] LABS: CALCIUM 8.8 mg/dL (8.5-10.1); CREATININE 5.6 mg/dL (0.6-1.0); GFR 9.2; POTASSIUM 4.1 mmol/L (3.5-5.1)
--- NOTE | 2021-02-20 10:41 | PDOC3 ---
Discharge Summary Visit Information Date of Admission: Feb 16, 2021 Date of Discharge: Feb 20, 2021 Final Diagnosis Problems Medical Problems: (1) Dyspnea Status: Acute (2) ESRD (end stage renal disease) Status: Acute (3) Hemoglobin low Status: Acute (4) Hypoxia Status: Acute (5) Missed dialysis Status: Acute Brief Hospital Course Allergies Allergies Coded Allergies Type Severity Reaction Last Updated Verified No Known Drug Allergies 02/10/21 No Vital Signs Vital Signs Date Time Temp Pulse Resp B/P (MAP) Pulse Ox O2 Delivery O2 Flow Rate FiO2 02/20/21 07:00 74 16 113/48 (69) 97 Room Air 02/20/21 03:08 98.0 98.0 02/19/21 08:49 2.0 Lab Results Laboratory Tests Test 02/18/21 13:04 02/19/21 12:17 02/19/21 17:06 02/19/21 20:52 Glucose (Fingerstick) 93 mg/dL (70-99) 108 mg/dL (70-99) 123 mg/dL (70-99) 144 mg/dL (70-99) Test 02/20/21 08:02 Glucose (Fingerstick) 91 mg/dL (70-99) Laboratory Tests Test 02/19/21 12:17 02/19/21 17:06 02/19/21 20:52 02/20/21 08:02 Glucose (Fingerstick) 108 mg/dL (70-99) 123 mg/dL (70-99) 144 mg/dL (70-99) 91 mg/dL (70-99) Brief Hospital Course Ms. Fernandez is a 65 old female with history of ESRD on HD, who presented with acute metabolic encephalopathy, hypokalemia, missed HD. Consultation was placed to nephrology. She had hemodialysis and resumption of regular HD schedule. States that she had to miss hemodialysis because of scheduling conflicts trying to have dental procedures. Her encephalopathy improved with regular HD. She was recommended [facility] but refused. Patient was stable for discharge home with family care to resume her normal Saturday//Saturday HD schedule. Discharge Information Condition at Discharge: Improved Disposition/Orders: D/C to Home Scheduled Carvedilol (Carvedilol) 25 Mg Tablet, 25 MG PO BIDWMEALS for CARDIAC, (Reported) Entered as Reported by: MY NÚÑEZ on 03/05/20 1848 Last Action: Reviewed on 02/16/212321 by Thaddeus Bethea Dorzolamide Hcl/Timolol Maleat (Dorzolamide-Timolol Eye Drops) 10 Ml Drops, 1 DROP OU BID for cataract sx , (Reported) Entered as Reported by: Thaddeus Bethea on 02/16/212321 Last Taken: UNKNOWN on Unknown Date & Time Last Action: Reviewed on 02/16/212321 by Thaddeus Bethea Ketorolac Tromethamine (Ketorolac Tromethamine) 5 Ml Drops, 1 DRP OU BID for cataract sx , (Reported) Entered as Reported by: Thaddeus Bethea on 02/16/212321 Last Taken: UNKNOWN on Unknown Date & Time Last Action: Reviewed on 02/16/212321 by Thaddeus Bethea Moxifloxacin HCl (Moxifloxacin) 3 Ml Drops, 1 DROP OU BID for cataract sx , (Reported) Entered as Reported by: Thaddeus Bethea on 02/16/212321 Last Taken: UNKNOWN on Unknown Date & Time Last Action: Reviewed on 02/16/212321 by Thaddeus Bethea Nystatin ([facility]) 15 Gm Powder, 1 DAWNA TP BID for RASH for 14 Days, #30 Prescribed by: ASHIA MOSS MD on 11/21/20 1007 Last Action: Reviewed on 02/16/212321 by Thaddeus Btehea Pantoprazole Sodium (Pantoprazole Sodium ) 40 Mg Tablet.dr, 40 MG PO DAILYAC for Bleeding ulcer for 30 Days, #30 Ref 5 Prescribed by: MELY OLVERA MD on 07/04/19 1457 Last Action: Continued on 02/17/212123 by GILA MURCIA MD Sevelamer HCl (Sevelamer HCl) 800 Mg Tablet, 800 MG PO BID for MDD , (R eported) Entered as Reported by: Thaddeus Bethea on 02/16/212321 Last Taken: UNKNOWN on Unknown Date & Time Last Action: Converted on 02/17/212123 by GILA MURCIA MD Scheduled PRN Acetaminophen (Acetaminophen) 500 Mg Tablet, 1 TAB PO PRN Q6HRS PRN for pain or fever for 15 Days, #60 Ref 0 (Reported) Entered as Reported by: VIOLETTA LINARES on 12/30/19 1038 Last Action: Reviewed on 02/16/212321 by Thaddeus Bethea Albuterol Sulfate (Proair Hfa) 8.5 Gm Hfa.aer.ad, 2.5 MG NEB PRN Q2HRS PRN for SOB / WHILE AWAKE for 30 Days, #30 Prescribed by: ASHIA MOSS MD on 09/27/19 1601 Last Action: Reviewed on 02/16/212321 by Thaddeus Bethea Oxycodone HCl/Acetaminophen (Oxycodone-Acetaminophn 7.5-325) 1 Each Tablet, 1 TAB PO QID PRN for PAIN, (Reported) Entered as Reported by: Thaddeus Bethea on 02/16/212321 Last Taken: UNKNOWN on Unknown Date & Time Last Action: Reviewed on 02/16/212321 by Thaddeus Bethea Justicifation of Admission Dx: Justifications for Admission: Justification of Admission Dx: Yes Acute Renal Failure: Serum Cr > 4mg/dL Chronic Renal Failure: Hemodynamic Instability Sepsis: Infection REMINGTON BACK MD Feb 20, 2021 10:41
[2021-02-20 11:00] VITALS: BP 168/82
--- NOTE | 2021-02-20 12:15 | NUR ---
SW following. Discussed with RN, pt from home, room air, renal diet. PT/OT recommending SNF - per RN pt not wanting this at this time. Discharge order for home with self care. Pt has transportation to dialysis. No further SW needs.
--- NOTE | 2021-02-20 12:24 | PDOC ---
Renal-Progress Notes Subjective Notes Notes FEELS WELL History of Present Illness Hx of present illness STABLE Vitals Vitals Vital Signs Date Time Temp Pulse Resp B/P (MAP) Pulse Ox O2 Delivery O2 Flow Rate FiO2 02/20/21 08:00 Room Air 02/20/21 07:00 74 16 113/48 (69) 97 02/20/21 03:08 98.0 98.0 02/19/21 08:49 2.0 Weight Weight [ ] I.O. Intake and Output Intake and Output 02/20/21 07:00 Intake Total 440 ml Balance 440 ml Intake Oral 440 ml # Bowel Movements 1 Labs Labs Laboratory Tests Test 02/19/21 17:06 02/19/21 20:52 02/20/21 08:02 02/20/21 09:40 Glucose (Fingerstick) 123 mg/dL (70-99) 144 mg/dL (70-99) 91 mg/dL (70-99) Sodium Level 140 mmol/L (136-145) Potassium Level 4.1 mmol/L (3.5-5.1) Chloride Level 100 mmol/L (98-107) Carbon Dioxide Level 29 mmol/L (21-32) Anion Gap 11 (6-14) Blood Urea Nitrogen 18 mg/dL (7-20) Creatinine 5.6 mg/dL (0.6-1.0) Estimated GFR (Cockcroft-Gault) 9.2 Glucose Level 112 mg/dL (70-99) Calcium Level 8.8 mg/dL (8.5-10.1) Test 02/20/21 11:30 Glucose (Fingerstick) 124 mg/dL (70-99) Review of Systems Constitutional: yes: weakness, alert Ears/Nose/Throat: Yes: no symptom reported Eyes: Yes: no symptom reported Pulmonary: Yes no symptom reported Cardiovascular: Yes no symptom reported Gastrointestional: Yes: no symptom reported Genitourinary: Yes: no symptom reported Musculoskeletal: Yes: no symptom reported Skin: Yes no symptom reported Psychiatric/Neurological: Yes: no symptom reported Endocrine: Yes: no symptom reported Physical Exam General Appearance: no apparent distress Skin: warm Respiratory: decreased breath sounds Heart: S1S2 Abdomen: soft, bowel sounds present Genitourinary: bladder flat Extremities: pulses present Neurology: alert Assessment Assessment IMP ESRD ANEMIA NON COMPLIANCE HTN DM II VOLUME OVERLOAD-RESOLVED PLAN HD TOMORROW DISCHARGE PLANS NOTED ENC COMPLIANCE LINNEA SHULTZ MD Feb 20, 2021 12:24
--- NOTE | 2021-02-20 14:29 | NUR ---
pt discharged this shift and left via personal vehicle with daughter present and pts transportation home. Pt given discharge instructions and education on the importance of npt missing dialysis. Pt states that she had to choose between cataract surgery and having teeth pulled or dialysis and that is why she missed. Pt given follow up and medication information
[2021-02-20] MEDS ORDERED: NYSTATIN TOPICAL POWDER 15GM BOTTLE. TP SCH (21:00)
== END 2021-02-20 13:00 | disposition home or self-care (01) | DRG 640 ==
LOC: ER 14:46 → 2 SOUTH 16:24
PROVIDERS: ADMIT Internal Medicine; ATTEND Internal Medicine
PROC: 5A1D70Z Performance of Urinary Filtration, Intermittent, Less than 6 Hours Per Day (ICD-10-PCS; principal; 2021-02-16)
PROC: 5A1D70Z Performance of Urinary Filtration, Intermittent, Less than 6 Hours Per Day (ICD-10-PCS; 2021-02-18)
DX: E87.5 Hyperkalemia (principal); G93.41 Metabolic encephalopathy; N18.6 End stage renal disease; D61.818 Other pancytopenia; I12.0 Hypertensive chronic kidney disease with stage 5 chronic kidney disease or end stage renal disease; E87.6 Hypokalemia; D53.9 Nutritional anemia, unspecified; E11.22 Type 2 diabetes mellitus with diabetic chronic kidney disease; E11.36 Type 2 diabetes mellitus with diabetic cataract; E66.9 Obesity, unspecified; E78.5 Hyperlipidemia, unspecified; E87.70 Fluid overload, unspecified; F32.9 Major depressive disorder, single episode, unspecified; I25.10 Atherosclerotic heart disease of native coronary artery without angina pectoris; K74.60 Unspecified cirrhosis of liver; M06.9 Rheumatoid arthritis, unspecified; N20.0 Calculus of kidney; R09.02 Hypoxemia; Z79.899 Other long term (current) drug therapy; Z82.49 Family history of ischemic heart disease and other diseases of the circulatory system; Z87.11 Personal history of peptic ulcer disease; Z87.442 Personal history of urinary calculi; Z87.891 Personal history of nicotine dependence; Z90.710 Acquired absence of both cervix and uterus; Z91.19 Patient's noncompliance with other medical treatment and regimen; Z99.2 Dependence on renal dialysis; E21.3 Hyperparathyroidism, unspecified; G89.29 Other chronic pain; K21.9 Gastro-esophageal reflux disease without esophagitis
CPT/HCPCS: 36415; 70450; 71250; 73502; 74176; 80048; 80053; 80076; 82962; 83690; 83735; 83880; 84100; 84484; 85025; 86706; 87340; 93005; J0882; J1200; J1644; J2405; 97116-GP; 97530-GP; 99285-25; G0378; Q0163

== ENCOUNTER → 2021-05-03 | Outpatient (CLI) | payer OTHER, MEDICAID ==
[2021-04-18 07:00] VITALS: BP 106/49
[~2021-05-03] MED LIST changes: +DORZ10DR6 OU; +DORZ10DR7 OU; +KETO5DRO24 OU; +MOXI3DRO11 OU; -OMEP40CA45; +OMEP40CA7; +OXYC1TAB17 PO; +SEVE800T27 PO; +TIMO5DRO5 OU
--- NOTE | 2021-05-03 10:47 | RAD ---
INDICATION: Reason: LEFT LEG SWELLING/S/P LT FEMUR FX / Spl. Instructions: / History: COMPARISON: None. TECHNIQUE: Grayscale, color and doppler ultrasound images were obtained of the left lower extremity v enous vasculature. LEFT: No thrombus identified in the common femoral vein, femoral vein, popliteal vein or visualized calf ve ins. IMPRESSION: * No thrombus identified in deep venous system of the left lower extremity. Soft tissue swelling so mewhat limits the exam. Electronically signed by: Marco Gallardo MD (05/03/2021 10:44 AM) [id number]
== END ==
LOC: US 10:01
PROVIDERS: ATTEND Physician Assistant
DX: M79.89 Other specified soft tissue disorders (principal); M79.662 Pain in left lower leg
CPT/HCPCS: 93971

== ENCOUNTER 2021-06-19 16:24 | Emergency (ER) | payer OTHER, MEDICAID ==
[~2021-06-19] VITALS: Ht 157.5 cm; Wt 82.7 kg
[~2021-06-19 16:24] MED LIST changes: +OMEP40CA7 PO
[2021-06-19] MEDS ORDERED: methylPREDNISolone ACETATE 80 MG/ML VIAL. IM ONE (17:00)
[2021-06-19] MEDS ORDERED: diazePAM 5 MG TABLET PO ONE (17:00)
[2021-06-19] MEDS ORDERED: METH4TAB2 PO (18:52)
--- NOTE | 2021-06-19 18:52 | PHYS DOC ---
Past Medical History Past Medical History: Diabetes-Type II, GERD, GI Bleed, Hypertension, Kidney Stone, Pancreatitis, Pneumonia, P.U.D., Renal Failure, Other Additional Past Medical Histor: Ulcers,C-DIFF,CIRRHOSIS,CHRONIC PAIN Past Surgical History: Cholecystectomy, Hysterectomy, Tonsillectomy, Other Additional Past Surgical Histo: fistula placement Smoking Status: Never Smoker Alcohol Use: Rarely Drug Use: None General Adult EDM: Chief Complaint: BACK PAIN OR INJURY HPI: HPI: Patient is a 66-year-old female who presents to the emergency department complaining of right-sided low back pain with radiation into her buttocks and down the back of her right leg. Patient reports she was doing laundry this morning when the pain first came on, states that she laid down in bed for a while and the pain went away. Patient reports today she was up moving around at approximately an hour prior to arrival with an acute onset of the same pain. Patient states that this time she was unable to move and called 911 to bring her into the emergency department. Patient reports she took 2 hydrocodone's without relief just prior to arrival to the ED. Patient states she is a hemodialysis patient on Tuesdays and Saturdays, reporting her last full dialysis was Saturday without problems. Patient denies chest pain, shortness of breath, recent fever or chills. Patient denies having any onsets of back pain similar to this episode in the past. Patient reports she does not make urine. Patient reports her pain a 10 out of 10. Reports this is a stabbing burning sensation pain. Patient denies loss of bowel. Patient denies numbness to her vagina or buttocks area. Patient denies any other physical complaints or physical concerns. Review of Systems: Review of Systems: 14 body systems of review of systems have been reviewed. See HPI for pertinent positives and negative responses, otherwise all other systems are negative, nonpertinent or noncontributory. Constitutional: Negative except as outlined in HPI above. Skin: Negative except as outlined in HPI above. Eyes: Negative except as outlined in HPI above. HENT: Negative except as outlined in HPI above. Respiratory: Negative except as outlined in HPI above. Cardiovascular: Negative except as outlined in HPI above. GI: Negative except as outlined in HPI above. : Negative except as outlined in HPI above. Musculoskeletal: Negative except as outlined in HPI above. Integument: Negative except as outlined in HPI above. Neurologic: Negative except as outlined in HPI above. Endocrine: Negative except as outlined in HPI above. Lymphatic: Negative except as outlined in HPI above. Psychiatric: Negative except as outlined in HPI above. Heart Score: C/O Chest Pain: No Risk Factors: Risk Factors: DM, Current or recent (<one month) smoker, HTN, HLP, family history of CAD, obesity. Risk Scores: Score 0 - 3: 2.5% MACE over next 6 weeks - Discharge Home Score 4 - 6: 20.3% MACE over next 6 weeks - Admit for Clinical Observation Score 7 - 10: 72.7% MACE over next 6 weeks - Early Invasive Strategies Current Medications: Current Medications Medications (Trade) Dose Ordered Sig/Kimberly Start Time Stop Time Status Last Admin Dose Admin Diazepam (Valium) 10 mg 1X ONCE 06/19/21 17:00 06/19/21 17:01 DC 06/19/21 17:39 10 MG Methylprednisolone Acetate (DEPO-Medrol 80MG VIAL) 80 mg 1X ONCE 06/19/21 17:00 06/19/21 17:01 DC 06/19/21 17:42 80 MG Allergies: Allergies: Allergies Coded Allergies Type Severity Reaction Last Updated Verified No Known Drug Allergies 06/19/21 No Physical Exam: PE: Constitutional: Well developed, well nourished, no acute distress, non-toxic appearance. 66-year-old female appears uncomfortable however remains nontoxic in appearance. HENT: Normocephalic, atraumatic. Eyes: Conjunctiva normal, no discharge. Neck: Normal range of motion, no stridor. Cardiovascular: No cyanosis appreciated, distal cap refill less than 2 seconds. Lungs & Thorax: Patient is in no respiratory distress, no audible adventitious lung sounds appreciated. Abdomen: Nontender, no abnormalities noted. Skin: Warm, dry, no erythema, no rash. [] Back: No deformities appreciated, tenderness to the left lumbar area with radiation down buttocks and mid hamstring area, no swelling appreciated, no edema appreciated. No deformities appreciated, no skin discoloration or bruising appreciated. Extremities: No tenderness, no cyanosis, no clubbing, ROM intact, no edema. Hemodialysis shunt to left upper arm positive bruit and thrill. Neurologic: Alert and oriented X 3, normal motor function, normal sensory function, no focal deficits noted. Psychologic: Affect normal, judgement normal, mood normal. Current Patient Data: Vital Signs: Vital Signs Date Time Temp Pulse Resp B/P (MAP) Pulse Ox O2 Delivery O2 Flow Rate FiO2 06/19/21 17:46 71 24 115/55 (75) 97 Room Air 06/19/21 16:29 97.7 97.7 EKG: EKG: [] Radiology/Procedures: Radiology/Procedures: [] Course & Med Decision Making: Course & Med Decision Making Pertinent Labs and Imaging studies reviewed. (See chart for details) 66-year-old female, vital signs reviewed, presents emergency department concerning low back pain with radiation down the right buttocks and thigh. Physical examination is consistent with sciatica flareup. Unlikely cauda equina syndrome. Will treat with p.o. Valium, IM steroid. After period of time will reevaluate patient. After period of time, reexamination of patient found patient asleep, easily arousable to verbal stimuli, reports her pain is down to a 2 or 3 out of 10. Patient reports her pain is now tolerable and wishes to go home. Discussed with patient will prescribe Medrol Dosepak, may use Tylenol for ongoing back pains, strict follow-up with primary care physician tomorrow while at hemodialysis, patient is amenable to ED discharge planning. Discussed with the patient all findings and diagnostic testing as well as the need to follow-up with their primary care provider for further evaluation and treatment or return to the ED if any new or worsening symptoms. Strict return precautions were also discussed at length, the patient voiced understanding and agreement with the discharge planning. The patient was nontoxic in appearance, in no apparent distress, and hemodynamically stable at the time of disposition. Dragon Disclaimer: [employer] System Disclaimer: This electronic medical record was generated, in whole or in part, using a voice recognition dictation system. Departure Departure Impression: Primary Impression: Lumbago Qualified Codes: M54.41 - Lumbago with sciatica, right side Disposition: HOME / SELF CARE / HOMELESS Condition: GOOD Referrals: Ashley LIAO MD (PCP) Patient Instructions: Sciatica Additional Instructions: You were seen today in the emergency department for sciatica back pain. You were treated with a value and a steroid injection. I am prescribing you a steroid Medrol Dosepak for ongoing steroid therapy please take as directed. You may take Tylenol for acute pain. Please keep your hemodialysis appointment tomorrow, follow-up with your primary care physician for ongoing back pain management. Please return the emergency room for worsening symptoms or other concerns. Thank you for visiting our Emergency Department. It was a pleasure taking care of you today in the emergency department and we appreciate you trusting us with your care. If any additional problems come up don't hesitate to return to visit us. Please follow up with your primary care provider so they can plan additional care if needed and know about the problem that you had. If symptoms worsen come back to the Emergency Department. Any concerning symptoms that start such as chest pain, shortness of air, weakness or numbness on one side of the body, running high fevers or any other concerning symptoms return to the ER. Scripts Methylprednisolone (MEDROL) 4 Mg Tab.ds.pk 1 PKG PO UD for back pains, #1 PKG 0 Refills Prov: HAYDER OLIVAS APRN 06/19/21 HAYDER OLIVAS APRN Jun 19, 2021 18:52
[2021-06-19 23:00] VITALS: BP 116/52
== END 2021-06-19 23:34 | disposition home or self-care (01) ==
LOC: ER 16:24
DX: M54.41 Lumbago with sciatica, right side (principal); K21.9 Gastro-esophageal reflux disease without esophagitis; G89.29 Other chronic pain; E11.22 Type 2 diabetes mellitus with diabetic chronic kidney disease; I12.9 Hypertensive chronic kidney disease with stage 1 through stage 4 chronic kidney disease, or unspecified chronic kidney disease; N18.9 Chronic kidney disease, unspecified; Z90.49 Acquired absence of other specified parts of digestive tract; Z90.710 Acquired absence of both cervix and uterus
CPT/HCPCS: 96372; 99284; J1040

== ENCOUNTER 2021-06-25 12:59 | Inpatient (IN) | payer OTHER, MEDICAID ==
[~2021-06-25] VITALS: Ht 157.5 cm; Wt 88.2 kg
[~2021-06-25 12:59] MED LIST changes: +METH4TAB2 PO
[2021-06-25] MEDS ORDERED: ONDANSETRON PF 4 MG/2 ML VIAL. IVP ONE ×2 (14:15→16:45)
[2021-06-25] MEDS ORDERED: FAMOTIDINE 20 MG/2 ML VIAL IVP ONE (14:15)
[2021-06-25] MEDS ORDERED: fentaNYL PF VIAL 100 MCG/2 ML VIAL IV ONE (14:30)
--- NOTE | 2021-06-25 14:41 | EKG ---
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
[2021-06-25 14:58] LABS: BASO % 1 % (0-3); EOS % 0 % (0-3); LYMPH # 0.4 x10^3/uL (1.0-4.8); LYMPH % 11 % (24-48); MEAN CORPUSCULAR HEMOGLOBIN 34 pg (25-35); MEAN CORPUSCULAR HGB CONC 33 g/dL (31-37); MEAN CORPUSCULAR VOLUME 102 fL (79-100); MONO # 0.4 x10^3/uL (0.0-1.1); MONO % 10 % (0-9); NEUT # 3.2 x10^3/uL (1.8-7.7); NEUT % 79 % (31-73); PLATELET COUNT 156 x10^3/uL (140-400); RED CELL DISTRIBUTION WIDTH 23.9 % (11.5-14.5); WHITE BLOOD COUNT 4.1 x10^3/uL (4.0-11.0)
[2021-06-25 15:01] LABS: HEMATOCRIT 20.5 % (36.0-47.0); HEMOGLOBIN 6.7 g/dL (12.0-15.5)
[2021-06-25 15:06] LABS: CALCIUM 9.4 mg/dL (8.5-10.1); GFR 8.5; POTASSIUM 4.4 mmol/L (3.5-5.1)
[2021-06-25 15:12] LABS: ALBUMIN 3.3 g/dL (3.4-5.0); ALBUMIN/GLOBULIN RATIO 0.7 (1.0-1.7); MAGNESIUM 2.1 mg/dL (1.8-2.4); TOTAL BILIRUBIN 0.5 mg/dL (0.2-1.0); TOTAL PROTEIN 8.3 g/dL (6.4-8.2)
[2021-06-25 15:19] LABS: PLT ESTIMATE ADEQUATE (ADEQUATE)
[2021-06-25 15:20] LABS: ANISOCYTOSIS MOD; POLYCHROMASIA SLIGHT
[2021-06-25 15:22] LABS: CREATINE KINASE 47 U/L (26-192)
--- NOTE | 2021-06-25 15:30 | RAD ---
Examination: CT of the abdomen pelvis without contrast HISTORY: History of abdominal pain, nausea COMPARISON: 05/25/2021 TECHNIQUE: Axial CT images of the abdomen pelvis are performed without contrast. Coronal and sagittal reformats are performed Exposure: One or more of the following individualized dose reduction techniques were utilized for thi s examination: 1. Automated exposure control 2. Adjustment of the mA and/or kV according to patient size 3. Use of iterative reconstruction technique FINDINGS: Small bilateral pleural effusions. No evidence of free air identified in the abdomen. The evaluation of the solid organs is limited due to lack of IV contrast. The evaluation of bowel is limited due to lack of oral contrast. Minimal nodular appearance of the liver could be mild cirrhotic appearance. The spleen, adrenals grossly appears unremarkable. Cholecystectomy changes. The stomach is mildly distended. Mild fat stranding identified about the pancreas and about the duodenum. The sma ll bowel is nondilated. Prior coiling identified inferior to the stomach Feces and gas noted in the colon. Small amount of fluid identified in the perihepatic and in the stom ach likely mild ascites. Urinary bladder is mildly distended. There is mild fat stranding identified about the urinary bladder. Mild fat stranding identified in the abdominal wall. Punctate calculi identified in the right kidney the largest measuring 3 mm. Small umbilical hernia id entified containing possible knuckle of small bowel or fluid within. Moderate degenerative changes radha mbar spine. Old fracture right superior inferior pubic ramus. IMPRESSION: 1. Mild fat stranding identified about the pancreas and about the duodenum could be due to pancreati tis or duodenitis. Correlate with lab values. 2. Mild fat stranding identified about the urinary bladder could be due to nondistention or cystitis . Correlate with lab values. 3. Punctate calculi identified in the right kidney the largest measuring 3 mm. 4. Small umbilical hernia identified containing possible knuckle of small bowel or fluid within. 5. Small bilateral pleural effusions. 6. Minimal nodular appearance of the liver could be mild cirrhotic appearance. 7. Small amount of fluid identified in the perihepatic and in the stomach likely mild ascites. 8. Mild fat stranding abdominal wall could be edema or cellulitis Electronically signed by: Mario Mendoza MD (06/25/2021 3:28 PM) [id number]
[2021-06-25] MEDS ORDERED: hydrALAZINE 20 MG/ML VIAL. IVP ONE (16:00)
--- NOTE | 2021-06-25 16:04 | PHYS DOC ---
Past Medical History Past Medical History: Diabetes-Type II, GERD, GI Bleed, Hypertension, Kidney Stone, Pancreatitis, Pneumonia, P.U.D., Renal Failure, Other Additional Past Medical Histor: Ulcers,C-DIFF,CIRRHOSIS,CHRONIC PAIN Past Surgical History: Cholecystectomy, Hysterectomy, Tonsillectomy, Other Additional Past Surgical Histo: fistula placement Smoking Status: Never Smoker Alcohol Use: None Drug Use: None General Adult EDM: Chief Complaint: NAUSEA/VOMITING/DIARRHEA HPI: HPI: Patient is a 66 year old [f__sex] who presents with [] Review of Systems: Review of Systems: Constitutional: Denies fever or chills Eyes: Denies redness or eye pain HENT: Denies nasal congestion or sore throat Respiratory: Denies cough or shortness of breath Cardiovascular: Denies chest pain or palpitations GI: Denies abdominal pain, nausea, or vomiting : Denies dysuria or hematuria Musculoskeletal: Denies back pain or joint pain Integument: Denies rash or skin lesions Neurologic: Denies headache, focal weakness or sensory changes Complete systems were reviewed and found to be within normal limits, except as documented in this note. Heart Score: C/O Chest Pain: N/A Current Medications: Current Medications Medications (Trade) Dose Ordered Sig/Kimberly Start Time Stop Time Status Last Admin Dose Admin Famotidine (Pepcid Vial) 20 mg 1X ONCE 06/25/21 14:15 06/25/21 14:24 DC 06/25/21 15:04 20 MG Fentanyl Citrate (Fentanyl 2ml Vial) 50 mcg 1X ONCE 06/25/21 14:30 06/25/21 14:31 DC 06/25/21 15:04 50 MCG Hydralazine HCl (Apresoline Inj) 10 mg 1X ONCE 06/25/21 16:00 06/25/21 16:03 DC Ondansetron HCl (Zofran) 4 mg 1X ONCE 06/25/21 14:15 06/25/21 14:24 DC 06/25/21 15:04 4 MG Allergies: Allergies: Allergies Coded Allergies Type Severity Reaction Last Updated Verified No Known Drug Allergies 06/19/21 No Physical Exam: PE: Constitutional: Well developed, well nourished, no acute distress, non-toxic ap pearance HENT: Normocephalic, atraumatic Eyes: PERRL, EOMI, conjunctiva normal, no discharge Neck: Normal range of motion, no tenderness, supple Lungs & Thorax: No respiratory distress, equal chest rise and fall Abdomen: Soft, no tenderness Skin: Warm, dry, no erythema, no rash Back: No tenderness, no CVA tenderness Extremities: No tenderness, ROM intact, no edema Neurologic: Alert and oriented X 3, normal motor function, normal sensory function, no focal deficits noted Psychologic: Affect normal, judgment normal Current Patient Data: Labs: Laboratory Tests Test 06/25/21 14:45 White Blood Count 4.1 x10^3/uL (4.0-11.0) Red Blood Count 2.00 x10^6/uL (3.50-5.40) L Hemoglobin 6.7 g/dL (12.0-15.5) *L Hematocrit 20.5 % (36.0-47.0) *L Mean Corpuscular Volume 102 fL (79-100) H Mean Corpuscular Hemoglobin 34 pg (25-35) Mean Corpuscular Hemoglobin Concent 33 g/dL (31-37) Red Cell Distribution Width 23.9 % (11.5-14.5) H Platelet Count 156 x10^3/uL (140-400) Neutrophils (%) (Auto) 79 % (31-73) H Lymphocytes (%) (Auto) 11 % (24-48) L Monocytes (%) (Auto) 10 % (0-9) H Eosinophils (%) (Auto) 0 % (0-3) Basophils (%) (Auto) 1 % (0-3) Neutrophils # (Auto) 3.2 x10^3/uL (1.8-7.7) Lymphocytes # (Auto) 0.4 x10^3/uL (1.0-4.8) L Monocytes # (Auto) 0.4 x10^3/uL (0.0-1.1) Eosinophils # (Auto) 0.0 x10^3/uL (0.0-0.7) Basophils # (Auto) 0.0 x10^3/uL (0.0-0.2) Platelet Estimate Adequate (ADEQUATE) Polychromasia Slight Anisocytosis Mod Macrocytosis Slight Sodium Level 136 mmol/L (136-145) Potassium Level 4.4 mmol/L (3.5-5.1) Chloride Level 98 mmol/L (98-107) Carbon Dioxide Level 33 mmol/L (21-32) H Anion Gap 5 (6-14) L Blood Urea Nitrogen 33 mg/dL (7-20) H Creatinine 6.0 mg/dL (0.6-1.0) H Estimated GFR (Cockcroft-Gault) 8.5 BUN/Creatinine Ratio 6 (6-20) Glucose Level 131 mg/dL (70-99) H Calcium Level 9.4 mg/dL (8.5-10.1) Magnesium Level 2.1 mg/dL (1.8-2.4) Total Bilirubin 0.5 mg/dL (0.2-1.0) Aspartate Amino Transferase (AST) 27 U/L (15-37) Alanine Aminotransferase (ALT) 17 U/L (14-59) Alkaline Phosphatase 152 U/L (46-116) H Creatine Kinase 47 U/L (26-192) Creatine Kinase MB (Mass) 2.3 ng/mL (0.0-3.6) Creatine Kinase MB Relative Index % (0-4) Troponin I Quantitative < 0.017 ng/mL (0.000-0.055) Total Protein 8.3 g/dL (6.4-8.2) H Albumin 3.3 g/dL (3.4-5.0) L Albumin/Globulin Ratio 0.7 (1.0-1.7) L Lipase 65 U/L (73-393) L Laboratory Tests 06/25/21 14:45 Laboratory Tests 06/25/21 14:45 Vital Signs: Vital Signs Date Time Temp Pulse Resp B/P (MAP) Pulse Ox O2 Delivery O2 Flow Rate FiO2 06/25/21 15:04 14 95 Room Air 06/25/21 15:00 84 208/93 (131) 06/25/21 13:00 98.7 98.7 EKG: EKG: @1436 NSR at 84bpm, NO ST elevation, QRS 76ms, QT/QTc 374/445ms,q wave III. Radiology/Procedures: Radiology/Procedures: PROCEDURE: CT ABDOMEN PELVIS WO CONTRAST Examination: CT of the abdomen pelvis without contrast HISTORY: History of abdominal pain, nausea COMPARISON: 05/25/2021 TECHNIQUE: Axial CT images of the abdomen pelvis are performed without contrast. Coronal and sagittal reformats are performed Exposure: One or more of the following individualized dose reduction techniques were utilized for this examination: 1. Automated exposure control 2. Adjustment of the mA and/or kV according to patient size 3. Use of iterative reconstruction technique FINDINGS: Small bilateral pleural effusions. No evidence of free air identified in the abdomen. The evaluation of the solid organs is limited due to lack of IV contrast. The evaluation of bowel is limited due to lack of oral contrast. Minimal nodular appearance of the liver could be mild cirrhotic appearance. The spleen, adrenals grossly appears unremarkable. Cholecystectomy changes. The stomach is mildly distended. Mild fat stranding identified about the pancreas and about the du odenum. The small bowel is nondilated. Prior coiling identified inferior to the stomach Feces and gas noted in the colon. Small amount of fluid identified in the perihepatic and in the stomach likely mild ascites. Urinary bladder is mildly distended. There is mild fat stranding identified about the urinary bladder. Mild fat stranding identified in the abdominal wall. Punctate calculi identified in the right kidney the largest measuring 3 mm. Small umbilical hernia identified containing possible knuckle of small bowel or fluid within. Moderate degenerative changes lumbar spine. Old fracture right superior inferior pubic ramus. IMPRESSION: 1. Mild fat stranding identified about the pancreas and about the duodenum could be due to pancreatitis or duodenitis. Correlate with lab values. 2. Mild fat stranding identified about the urinary bladder could be due to nondistention or cystitis. Correlate with lab values. 3. Punctate calculi identified in the right kidney the largest measuring 3 mm. 4. Small umbilical hernia identified containing possible knuckle of small bowel or fluid within. 5. Small bilateral pleural effusions. 6. Minimal nodular appearance of the liver could be mild cirrhotic appearance. 7. Small amount of fluid identified in the perihepatic and in the stomach likely mild ascites. 8. Mild fat stranding abdominal wall could be edema or cellulitis Electronically signed by: Mario Mendoza MD (06/25/2021 3:28 PM) [id number] Course & Med Decision Making: Course & Med Decision Making Pertinent Labs and Imaging studies reviewed. (See chart for details) [] Dragon Disclaimer: Dragon Disclaimer: This electronic medical record was generated, in whole or in part, using a voice recognition dictation system. Departure Departure Impression: Primary Impression: Severe anemia Additional Impressions: Abdominal pain Qualified Codes: R10.84 - Generalized abdominal pain Nausea & vomiting Qualified Codes: R11.2 - Nausea with vomiting, unspecified ESRD (end stage renal disease) on dialysis Disposition: 09 ADMITTED INPATIENT Admitting Physician: BRYANT Mcwilliams) Condition: STABLE Referrals: Ashley LIAO MD (PCP) HAYDER BAUER DO Jun 25, 2021 16:04
[2021-06-25] MEDS ORDERED: fentaNYL PF VIAL 100 MCG/2 ML VIAL IVP ONE (16:45)
[2021-06-25] MEDS ORDERED: fentaNYL PF VIAL 100 MCG/2 ML VIAL IVP PRN (17:00)
[2021-06-25] MEDS ORDERED: ONDANSETRON PF 4 MG/2 ML VIAL. IVP PRN (17:00)
[2021-06-25] MEDS ORDERED: DEXTROSE 50% 25 GM / 50ML DISP.SYRIN. IV PRN (17:00)
[2021-06-25 18:23] VITALS: BP 192/95
[2021-06-25 18:38] VITALS: BP 195/92
[2021-06-25 18:53] VITALS: BP 207/84
[2021-06-25] MEDS ORDERED: PIP/TAZO PER PHARMACY MC PRN (19:00)
[2021-06-25 19:08] VITALS: BP 192/91
--- NOTE | 2021-06-25 19:16 | HP ---
ADMIT DATE: 06/25/2021 CHIEF COMPLAINT: Nausea, vomiting, and diarrhea. HISTORY OF PRESENT ILLNESS: The patient is a pleasant 66-year-old female well known to our service. She gets admitted about once a month for various issues related usually to her end-stage renal disease. At this time interestingly, she has more nausea, vomiting, diarrhea, and GI symptoms. She also was noted to be anemic with a hemoglobin of 6.7. I discussed the case with ER physician. We are going to admit the patient, get her dialyzed, get her transfused. I am also going to consult GI regarding her nausea, vomiting, and diarrhea. PAST MEDICAL HISTORY: Diabetes, GERD, GI bleed, hypertension, kidney stones, pancreatitis, pneumonia, peptic ulcer disease, renal failure. She is on dialysis. C. diff, ulcer, cirrhosis, chronic pain, cholecystectomy, hysterectomy, tonsillectomy, fistula placement. ALLERGIES: None. FAMILY HISTORY: Diabetes and end-stage renal disease. SOCIAL HISTORY: She does not drink, smoke or take drugs. MEDICATIONS: Reviewed, please refer to the MRAD. REVIEW OF SYSTEMS: GENERAL: No history of weight change, weakness or fevers. SKIN: No bruising, hair changes or rashes. EYES: No blurred, double or loss of vision. NOSE AND THROAT: No history of nosebleeds, hoarseness or sore throat. HEART: No history of palpitations, chest pain or shortness of breath on exertion. LUNGS: Denies cough, hemoptysis, wheezing or shortness of breath. GASTROINTESTINAL: She complains of nausea, vomiting, or diarrhea. GENITOURINARY: No history of frequency, urgency, hesitancy or nocturia. NEUROLOGIC: Denies history of numbness, tingling, tremor or weakness. PSYCHIATRIC: No history of panic, anxiety or depression. ENDOCRINE: No history of heat or cold intolerance, polyuria or polydipsia. EXTREMITIES: Denies muscle weakness, joint pain, pain on walking or stiffness. PHYSICAL EXAMINATION: VITALS: Within normal limits and are stable. GENERAL: No apparent distress. Alert and oriented. HEENT: Normal cephalic atraumatic, external auditory canals are patent EYES: Extraocular muscles are intact, pupils are equally round and reactive to light and accommodation MUSCULOSKELETAL: Well developed, well nourished, good range of motion. ENDOCRINE: No thyromegaly was palpated. LYMPHATICS: No cervical chain or axillary nodes were noted. HEMATOPOIETIC: No bruising. NECK: Supple, no JVD, no thyromegaly was noted. LUNGS: Clear to auscultation in all lung chaudhry without rhonchi or wheezing. HEART: RRR, S1, S2 present. Peripheral pulses intact, no obvious murmurs were noted. ABDOMEN: Soft, nontender. Positive bowel sounds no organomegaly, normal bowel sounds. EXTREMITIES: Without any cyanosis, clubbing, or edema. Pedal pulses intact, Homans sign is negative. NEUROLOGIC: Normal speech, normal tone. A and O x3, moves all extremities, no obvious focal deficits. PSYCHIATRIC: Normal affect, normal mood. Stable. SKIN: No ulcerations or rashes, good skin turgor, no jaundice. VASCULAR: Good capillary refill, neurovascular bundle appears to be intact. DIAGNOSTIC DATA: White count is 4, hemoglobin 6.7, platelets 156. Electrolytes: Sodium 136, potassium 4.4, chloride 98, bicarbonate 33, BUN 33, creatinine 6, glucose is 131, alk phos 152. Troponins 0. Albumin 3.3. COVID testing is negative. CT of the abdomen shows possible pancreatitis or duodenitis and possible cystitis. She has a right renal calculus, 3 mm. Small umbilical hernia. Small pleural effusions. Cirrhotic liver, mild ascites and abdominal edema or cellulitis. ASSESSMENT AND PLAN: Nausea, vomiting, diarrhea with abnormal CAT scan suspicious for pancreatitis or duodenitis in an old lady who has multiple medical issues including end-stage renal disease and an incidental finding of severe anemia with a hemoglobin of 6.7. The patient has been admitted. We will consult GI, consult Nephrology. Transfuse on dialysis. Home meds, deep venous thrombosis prophylaxis. Full code. Trend labs. P.r.n. fentanyl, p.r.n. Zofran, IV Pepcid. PROGNOSIS: Guarded. CAMMIE/CARY DR: Alan TID: [id number]
[2021-06-25] MEDS ORDERED: PROCHLORPERAZINE 10 MG/2 ML VIAL. IV PRN (20:15)
[2021-06-25 20:31] VITALS: BP 167/76
[2021-06-25] MEDS: MORPHINE SULFATE 2 MG/ML INJ. IV PRN (20:44)
[2021-06-25] MEDS: PIPERACILLIN/TAZOBACTAM 2.25 GM in IV NORMAL SALINE 50ML 50 ML IV SCH (20:45)
[2021-06-25] MEDS: INSULIN LISPRO 300 UNITS/3 ML VIAL. SQ SCH (21:00)
[2021-06-25 23:06] VITALS: BP 139/58
[2021-06-26] MEDS: PIPERACILLIN/TAZOBACTAM 2.25 GM in IV NORMAL SALINE 50ML 50 ML IV SCH ×5 (01:26→23:30)
[2021-06-26 03:45] VITALS: BP 159/67
[2021-06-26 07:00] VITALS: BP 156/64
[2021-06-26] MEDS: INSULIN LISPRO 300 UNITS/3 ML VIAL. SQ SCH ×3 (07:50→17:00)
--- NOTE | 2021-06-26 09:48 | PDOC2 ---
GI CONSULT Allergies: Coded Allergies: No Known Drug Allergies (Unverified , 06/19/21) IRIS SZYMANSKI Jun 26, 2021 09:48
--- NOTE | 2021-06-26 10:10 | PDOC ---
PROGRESS NOTES Date of Service: DATE: 06/26/21 TIME: 10:09 Chief Complaint Chief Complaint IMPRESSION Nausea, vomiting, diarrhea abnormal CAT scan suspicious for pancreatitis or duodenitis IE, Mild fat stranding identified about the pancreas and about the duodenum could be due to pancreatitis or duodenitis end-stage renal disease severe anemia with a hemoglobin of 6.7. PLAN admitted. consult GI, consult Nephrology. Transfuse on dialysis. Home meds, deep venous thrombosis prophylaxis. Full code. Trend labs. P.r.n. fentanyl, p.r.n. IV Zofran, IV Pepcid. d/w RN History of Present Illness History of Present Illness CHIEF COMPLAINT: Nausea, vomiting, and diarrhea. HISTORY OF PRESENT ILLNESS: The patient is a pleasant 66-year-old female well known to our service. She gets admitted about once a month for various issues related usually to her end-stage renal disease. At this time interestingly, she has more nausea, vomiting, diarrhea, and GI symptoms. She also was noted to be anemic with a hemoglobin of 6.7. I discussed the case with ER physician. We are going to admit the patient, get her dialyzed, get her transfused. I am also going to consult GI regarding her nausea, vomiting, and diarrhea. PAST MEDICAL HISTORY: Diabetes, GERD, GI bleed, hypertension, kidney stones, pancreatitis, pneumonia, peptic ulcer disease, renal failure. She is on dialysis. C. diff, ulcer, cirrhosis, chronic pain, cholecystectomy, hysterectomy, tonsillectomy, fistula placement. ALLERGIES: None. FAMILY HISTORY: Diabetes and end-stage renal disease. SOCIAL HISTORY: She does not drink, smoke or take drugs. MEDICATIONS: Reviewed, please refer to the MRAD. REVIEW OF SYSTEMS: GENERAL: No history of weight change, weakness or fevers. SKIN: No bruising, hair changes or rashes. EYES: No blurred, double or loss of vision. NOSE AND THROAT: No history of nosebleeds, hoarseness or sore throat. HEART: No history of palpitations, chest pain or shortness of breath on exertion. LUNGS: Denies cough, hemoptysis, wheezing or shortness of breath. GASTROINTESTINAL: She complains of nausea, vomiting, or diarrhea. GENITOURINARY: No history of frequency, urgency, hesitancy or nocturia. NEUROLOGIC: Denies history of numbness, tingling, tremor or weakness. PSYCHIATRIC: No history of panic, anxiety or depression. ENDOCRINE: No history of heat or cold intolerance, polyuria or polydipsia. EXTREMITIES: Denies muscle weakness, joint pain, pain on walking or stiffness. Vitals Vitals Vital Signs Date Time Temp Pulse Resp B/P (MAP) Pulse Ox O2 Delivery O2 Flow Rate FiO2 06/26/21 07:00 98.2 84 18 156/64 (94) 91 Room Air 98.2 Physical Exam Physical Exam GENERAL: No apparent distress. Alert and oriented. HEENT: Normal cephalic atraumatic, external auditory canals are patent EYES: Extraocular muscles are intact, pupils are equally round and reactive to light and accommodation MUSCULOSKELETAL: Well developed, well nourished, good range of motion. ENDOCRINE: No thyromegaly was palpated. LYMPHATICS: No cervical chain or axillary nodes were noted. HEMATOPOIETIC: No bruising. NECK: Supple, no JVD, no thyromegaly was noted. LUNGS: Clear to auscultation in all lung chaudhry without rhonchi or wheezing. HEART: RRR, S1, S2 present. Peripheral pulses intact, no obvious murmurs were noted. ABDOMEN: Soft, nontender. Positive bowel sounds no organomegaly, normal bowel sounds. EXTREMITIES: Without any cyanosis, clubbing, or edema. Pedal pulses intact, Homans sign is negative. NEUROLOGIC: Normal speech, normal tone. A and O x3, moves all extremities, no obvious focal deficits. PSYCHIATRIC: Normal affect, normal mood. Stable. SKIN: No ulcerations or rashes, good skin turgor, no jaundice. VASCULAR: Good capillary refill, neurovascular bundle appears to be intact. Lungs: Clear Extremities: No cyanosis Labs LABS hink and talk about your own wishes for healthcare in case youre ever not able to tell your loved ones or healthcare team what your wishes are. If you became really sick tomorrow, would your loved ones or healthcare team know what your wishes were? Here are some examples of different sets of goals and health care directives for your conversations: My wish is to use all medical therapies including resuscitation (such as CPR) and artificial life-sustaining treatments (such as machines and medicine) in an intensive care unit, to keep me alive if at all possible. My wish is to live as long as possible, but I dont want attempts to bring me back to life if my heart and breathing stop. I would like full medical care but without using resuscitation or artificial life-sustaining intensive treatments, if these are unlikely to make me live longer or restore me to a certain quality of life. I will accept treatments that try to fix medical problems, but if Im not getting better or going to have a certain quality of li fe, I would want to switch to focusing only on my comfort and letting my happen naturally. My wish is for healthcare to focus on my comfort and lessen suffering. I would like medical care that focuses only on my quality of life and that allows me to naturally. Consider: What does a good quality of life mean for me? For many people, it is the ability to live independently and tell their own story. I may define it differently. Under what circumstances would I not want to be kept alive by medical treatments, resuscitation, or intensive care? What kind of changes to my health or life might make me change my mind? If I clearly am facing the last chapter of my life, how do I want the story to end? Who do I want to speak for me if I cant speak for myself? Do they understand my preferences? Are they willing to assume the role of my Durable Power of Seat Nailer? Can I change my Goals of Care Designation? Yes, your Goals of Care Designation can be changed at any time. It should be reviewed if: your health condition changes your circumstances change (such as new understanding) you are transferred or admitted to another healthcare setting dpoa review, to pt portal 16 min and question review SEX: F EXAM STATUS: PRE ER ORD. PHYSICIAN: HAYDER BAUER DO REASON: abdominal pain, nausea PROCEDURE: CT ABDOMEN PELVIS WO CONTRAST Examination: CT of the abdomen pelvis without contrast HISTORY: History of abdominal pain, nausea COMPARISON: 05/25/2021 TECHNIQUE: Axial CT images of the abdomen pelvis are performed without contrast. Coronal and sagittal reformats are performed Exposure: One or more of the following individualized dose reduction techniques were utilized for this examination: 1. Automated exposure control 2. Adjustment of the mA and/or kV according to patient size 3. Use of iterative reconstruction technique FINDINGS: Small bilateral pleural effusions. No evidence of free air identified in the abdomen. The evaluation of the solid organs is limited due to lack of IV contrast. The evaluation of bowel is limited due to lack of oral contrast. Minimal nodular appearance of the liver could be mild cirrhotic appearance. The spleen, adrenals grossly appears unremarkable. Cholecystectomy changes. The stomach is mildly distended. Mild fat stranding identified about the pancreas and about the duodenum. The small bowel is nondilated. Prior coiling identified inferior to the stomach Feces and gas noted in the colon. Small amount of fluid identified in the perihepatic and in the stomach likely mild ascites. Urinary bladder is mildly distended. There is mild fat stranding identified about the urinary bladder. Mild fat stranding identified in the abdominal wall. Punctate calculi identified in the right kidney the largest measuring 3 mm. Small umbilical hernia identified containing possible knuckle of small bowel or fluid within. Moderate degenerative changes lumbar spine. Old fracture right superior inferior pubic ramus. IMPRESSION: 1. Mild fat stranding identified about the pancreas and about the duodenum could be due to pancreatitis or duodenitis. Correlate with lab values. 2. Mild fat stranding identified about the urinary bladder could be due to nondistention or cystitis. Correlate with lab values. 3. Punctate calculi identified in the right kidney the largest measuring 3 mm. 4. Small umbilical hernia identified containing possible knuckle of small bowel or fluid within. 5. Small bilateral pleural effusions. 6. Minimal nodular appearance of the liver could be mild cirrhotic appearance. 7. Small amount of fluid identified in the perihepatic and in the stomach likely mild ascites. 8. Mild fat stranding abdominal wall could be edema or cellulitis Electronically signed by: Mario Mendoza MD (06/25/2021 3:28 PM) [facility] DICTATED and SIGNED BY: MARIO MENDOZA MD DATE: 06/25/21 [id number] Laboratory Tests Test 06/25/21 14:45 06/25/21 17:00 06/25/21 20:43 06/26/21 07:07 White Blood Count 4.1 x10^3/uL (4.0-11.0) Red Blood Count 2.00 x10^6/uL (3.50-5.40) Hemoglobin 6.7 g/dL (12.0-15.5) Hematocrit 20.5 % (36.0-47.0) Mean Corpuscular Volume 102 fL (79-100) Mean Corpuscular Hemoglobin 34 pg (25-35) Mean Corpuscular Hemoglobin Concent 33 g/dL (31-37) Red Cell Distribution Width 23.9 % (11.5-14.5) Platelet Count 156 x10^3/uL (140-400) Neutrophils (%) (Auto) 79 % (31-73) Lymphocytes (%) (Auto) 11 % (24-48) Monocytes (%) (Auto) 10 % (0-9) Eosinophils (%) (Auto) 0 % (0-3) Basophils (%) (Auto) 1 % (0-3) Neutrophils # (Auto) 3.2 x10^3/uL (1.8-7.7) Lymphocytes # (Auto) 0.4 x10^3/uL (1.0-4.8) Monocytes # (Auto) 0.4 x10^3/uL (0.0-1.1) Eosinophils # (Auto) 0.0 x10^3/uL (0.0-0.7) Basophils # (Auto) 0.0 x10^3/uL (0.0-0.2) Platelet Estimate Adequate (ADEQUATE) Polychromasia Slight Anisocytosis Mod Macrocytosis Slight Sodium Level 136 mmol/L (136-145) Potassium Level 4.4 mmol/L (3.5-5.1) Chloride Level 98 mmol/L (98-107) Carbon Dioxide Level 33 mmol/L (21-32) Anion Gap 5 (6-14) Blood Urea Nitrogen 33 mg/dL (7-20) Creatinine 6.0 mg/dL (0.6-1.0) Estimated GFR (Cockcroft-Gault) 8.5 BUN/Creatinine Ratio 6 (6-20) Glucose Level 131 mg/dL (70-99) Calcium Level 9.4 mg/dL (8.5-10.1) Magnesium Level 2.1 mg/dL (1.8-2.4) Total Bilirubin 0.5 mg/dL (0.2-1.0) Aspartate Amino Transf (AST/SGOT) 27 U/L (15-37) Alanine Aminotransferase (ALT/SGPT) 17 U/L (14-59) Alkaline Phosphatase 152 U/L (46-116) Creatine Kinase 47 U/L (26-192) Creatine Kinase MB (Mass) 2.3 ng/mL (0.0-3.6) Creatine Kinase MB Relative Index % (0-4) Troponin I Quantitative < 0.017 ng/mL (0.000-0.055) Total Protein 8.3 g/dL (6.4-8.2) Albumin 3.3 g/dL (3.4-5.0) Albumin/Globulin Ratio 0.7 (1.0-1.7) Lipase 65 U/L (73-393) SARS-CoV-2 Antigen (Rapid) Negative (NEGATIVE) Glucose (Fingerstick) 137 mg/dL (70-99) 118 mg/dL (70-99) Assessment and Plan Assessmemt and Plan Problems Medical Problems: (1) Abdominal pain Status: Acute (2) ESRD (end stage renal disease) on dialysis Status: Chronic (3) Nausea & vomiting Status: Acute (4) Severe anemia Status: Acute Comment Review of Relevant I have reviewed the following items tamika (where applicable) has been applied. Labs Laboratory Tests Test 06/25/21 14:45 06/25/21 17:00 06/25/21 20:43 06/26/21 07:07 White Blood Count 4.1 x10^3/uL (4.0-11.0) Red Blood Count 2.00 x10^6/uL (3.50-5.40) Hemoglobin 6.7 g/dL (12.0-15.5) Hematocrit 20.5 % (36.0-47.0) Mean Corpuscular Volume 102 fL (79-100) Mean Corpuscular Hemoglobin 34 pg (25-35) Mean Corpuscular Hemoglobin Concent 33 g/dL (31-37) Red Cell Distribution Width 23.9 % (11.5-14.5) Platelet Count 156 x10^3/uL (140-400) Neutrophils (%) (Auto) 79 % (31-73) Lymphocytes (%) (Auto) 11 % (24-48) Monocytes (%) (Auto) 10 % (0-9) Eosinophils (%) (Auto) 0 % (0-3) Basophils (%) (Auto) 1 % (0-3) Neutrophils # (Auto) 3.2 x10^3/uL (1.8-7.7) Lymphocytes # (Auto) 0.4 x10^3/uL (1.0-4.8) Monocytes # (Auto) 0.4 x10^3/uL (0.0-1.1) Eosinophils # (Auto) 0.0 x10^3/uL (0.0-0.7) Basophils # (Auto) 0.0 x10^3/uL (0.0-0.2) Platelet Estimate Adequate (ADEQUATE) Polychromasia Slight Anisocytosis Mod Macrocytosis Slight Sodium Level 136 mmol/L (136-145) Potassium Level 4.4 mmol/L (3.5-5.1) Chloride Level 98 mmol/L (98-107) Carbon Dioxide Level 33 mmol/L (21-32) Anion Gap 5 (6-14) Blood Urea Nitrogen 33 mg/dL (7-20) Creatinine 6.0 mg/dL (0.6-1.0) Estimated GFR (Cockcroft-Gault) 8.5 BUN/Creatinine Ratio 6 (6-20) Glucose Level 131 mg/dL (70-99) Calcium Level 9.4 mg/dL (8.5-10.1) Magnesium Level 2.1 mg/dL (1.8-2.4) Total Bilirubin 0.5 mg/dL (0.2-1.0) Aspartate Amino Transf (AST/SGOT) 27 U/L (15-37) Alanine Aminotransferase (ALT/SGPT) 17 U/L (14-59) Alkaline Phosphatase 152 U/L (46-116) Creatine Kinase 47 U/L (26-192) Creatine Kinase MB (Mass) 2.3 ng/mL (0.0-3.6) Creatine Kinase MB Relative Index % (0-4) Troponin I Quantitative < 0.017 ng/mL (0.000-0.055) Total Protein 8.3 g/dL (6.4-8.2) Albumin 3.3 g/dL (3.4-5.0) Albumin/Globulin Ratio 0.7 (1.0-1.7) Lipase 65 U/L (73-393) SARS-CoV-2 Antigen (Rapid) Negative (NEGATIVE) Glucose (Fingerstick) 137 mg/dL (70-99) 118 mg/dL (70-99) Laboratory Tests Test 06/25/21 14:45 06/25/21 17:00 06/25/21 20:43 06/26/21 07:07 White Blood Count 4.1 x10^3/uL (4.0-11.0) Red Blood Count 2.00 x10^6/uL (3.50-5.40) Hemoglobin 6.7 g/dL (12.0-15.5) Hematocrit 20.5 % (36.0-47.0) Mean Corpuscular Volume 102 fL (79-100) Mean Corpuscular Hemoglobin 34 pg (25-35) Mean Corpuscular Hemoglobin Concent 33 g/dL (31-37) Red Cell Distribution Width 23.9 % (11.5-14.5) Platelet Count 156 x10^3/uL (140-400) Neutrophils (%) (Auto) 79 % (31-73) Lymphocytes (%) (Auto) 11 % (24-48) Monocytes (%) (Auto) 10 % (0-9) Eosinophils (%) (Auto) 0 % (0-3) Basophils (%) (Auto) 1 % (0-3) Neutrophils # (Auto) 3.2 x10^3/uL (1.8-7.7) Lymphocytes # (Auto) 0.4 x10^3/uL (1.0-4.8) Monocytes # (Auto) 0.4 x10^3/uL (0.0-1.1) Eosinophils # (Auto) 0.0 x10^3/uL (0.0-0.7) Basophils # (Auto) 0.0 x10^3/uL (0.0-0.2) Platelet Estimate Adequate (ADEQUATE) Polychromasia Slight Anisocytosis Mod Macrocytosis Slight Sodium Level 136 mmol/L (136-145) Potassium Level 4.4 mmol/L (3.5-5.1) Chloride Level 98 mmol/L (98-107) Carbon Dioxide Level 33 mmol/L (21-32) Anion Gap 5 (6-14) Blood Urea Nitrogen 33 mg/dL (7-20) Creatinine 6.0 mg/dL (0.6-1.0) Estimated GFR (Cockcroft-Gault) 8.5 BUN/Creatinine Ratio 6 (6-20) Glucose Level 131 mg/dL (70-99) Calcium Level 9.4 mg/dL (8.5-10.1) Magnesium Level 2.1 mg/dL (1.8-2.4) Total Bilirubin 0.5 mg/dL (0.2-1.0) Aspartate Amino Transf (AST/SGOT) 27 U/L (15-37) Alanine Aminotransferase (ALT/SGPT) 17 U/L (14-59) Alkaline Phosphatase 152 U/L (46-116) Creatine Kinase 47 U/L (26-192) Creatine Kinase MB (Mass) 2.3 ng/mL (0.0-3.6) Creatine Kinase MB Relative Index % (0-4) Troponin I Quantitative < 0.017 ng/mL (0.000-0.055) Total Protein 8.3 g/dL (6.4-8.2) Albumin 3.3 g/dL (3.4-5.0) Albumin/Globulin Ratio 0.7 (1.0-1.7) Lipase 65 U/L (73-393) SARS-CoV-2 Antigen (Rapid) Negative (NEGATIVE) Glucose (Fingerstick) 137 mg/dL (70-99) 118 mg/dL (70-99) Medications Current Medications Ondansetron HCl (Zofran) 4 mg 1X ONCE IVP Last administered on 06/25/21at 15:04; Start 06/25/21 at 14:15; Stop 06/25/21 at 14:24; Status DC Famotidine (Pepcid Vial) 20 mg 1X ONCE IVP Last administered on 06/25/21at 15:04; Start 06/25/21 at 14:15; Stop 06/25/21 at 14:24; Status DC Fentanyl Citrate (Fentanyl 2ml Vial) 50 mcg 1X ONCE IV Last administered on 06/25/21at 15:04; Start 06/25/21 at 14:30; Stop 06/25/21 at 14:31; Status DC Hydralazine HCl (Apresoline Inj) 10 mg 1X ONCE IVP Last administered on 06/25/21at 17:19; Start 06/25/21 at 16:00; Stop 06/25/21 at 16:03; Status DC Ondansetron HCl (Zofran) 4 mg 1X ONCE IVP Last administered on 06/25/21at 17:19; Start 06/25/21 at 16:45; Stop 06/25/21 at 16:47; Status DC Fentanyl Citrate (Fentanyl 2ml Vial) 50 mcg 1X ONCE IVP Last administered on 06/25/21at 17:18; Start 06/25/21 at 16:45; Stop 06/25/21 at 16:47; Status DC Ondansetron HCl (Zofran) 4 mg PRN Q8HRS PRN IVP NAUSEA/VOMITING; Start 06/25/21 at 17:00; Stop 06/26/21 at 16:59 Fentanyl Citrate (Fentanyl 2ml Vial) 50 mcg Q2HR PRN IVP PAIN Last administered on 06/25/21at 19:22; Start 06/25/21 at 17:00; Stop 06/26/21 at 16:59 Insulin Human Lispro (HumaLOG) 0-5 UNITS TIDWMEALS SQ ; Start 06/25/21 at 17:00 Dextrose (Dextrose 50%-Water Syringe) 12.5 gm PRN Q15MIN PRN IV SEE COMMENTS; Start 06/25/21 at 17:00 Piperacillin Sod/ Tazobactam Sod (Zosyn Per Pharmacy) 1 each PRN DAILY PRN MC SEE COMMENTS; Start 06/25/21 at 19:00 Piperacillin Sod/ Tazobactam Sod 2.25 gm/Sodium Chloride 50 ml @ 100 mls/hr Q6HRS IV Last administered on 06/26/21at 06:05; Start 06/25/21 at 19:00 Morphine Sulfate (Morphine Sulfate) 4 mg PRN Q2HR PRN IV MODERATE TO SEVERE PAIN Last administered on 06/25/21at 20:44; Start 06/25/21 at 20:15 Prochlorperazine Edisylate (Compazine) 10 mg PRN Q6HRS PRN IV NAUSEA/VOMITING Last administered on 06/25/21at 20:44; Start 06/25/21 at 20:15 Active Scripts Active Medrol (Methylprednisolone) 4 Mg Tab.ds.pk 1 Pkg PO UD Omeprazole 40 Mg Capsule. 1 Cap PO BID Reported Sevelamer HCl 800 Mg Tablet 800 Mg PO BID MDD Oxycodone-Acetaminophn 7.5-325 (Oxycodone HCl/Acetaminophen) 1 Each Tablet 1 Tab PO QID PRN Carvedilol 25 Mg Tablet 25 Mg PO BIDWMEALS Vitals/I & O Vital Sign - Last 24 Hours 06/25/21 06/25/21 06/25/21 06/25/21 13:00 13:34 14:04 14:34 Temp 98.7 98.7 Pulse 83 85 85 84 Resp 16 16 16 16 B/P (MAP) 186/83 (73) 207/93 (131) 235/98 (143) 200/91 (127) Pulse Ox 99 97 97 97 O2 Delivery Room Air Room Air Room Air Room Air 06/25/21 06/25/21 06/25/21 06/25/21 15:00 15:04 16:00 17:00 Pulse 84 86 88 Resp 16 14 16 16 B/P (MAP) 208/93 (131) 201/96 (131) 179/78 (111) Pulse Ox 97 95 97 97 O2 Delivery Room Air Room Air Room Air Room Air 06/25/21 06/25/21 06/25/21 06/25/21 17:18 17:19 18:00 18:23 Temp 98.8 98.8 Pulse 89 90 91 Resp 15 16 16 B/P (MAP) 207/94 192/95 (127) 192/95 Pulse Ox 99 98 O2 Delivery Room Air Room Air 06/25/21 06/25/21 06/25/21 06/25/21 18:38 18:53 19:07 19:08 Temp 98.8 98.7 98.7 98.8 98.7 98.7 Pulse 91 91 90 90 Resp 15 16 16 15 B/P (MAP) 195/92 207/84 192/91 (124) 192/91 Pulse Ox 98 O2 Delivery Room Air 06/25/21 06/25/21 06/25/21 06/25/21 19:22 20:31 21:00 23:06 Temp 98.2 99.1 98.2 99.1 Pulse 90 90 Resp 16 20 20 B/P (MAP) 167/76 (106) 139/58 (85) Pulse Ox 98 100 95 O2 Delivery Room Air Room Air Room Air Room Air 06/26/21 06/26/21 03:45 07:00 Temp 98.7 98.2 98.7 98.2 Pulse 86 84 Resp 16 18 B/P (MAP) 159/67 (97) 156/64 (94) Pulse Ox 94 91 O2 Delivery Room Air Room Air Intake and Output 06/25/21 06/25/21 06/26/21 15:00 23:00 07:00 Intake Total 315 ml 0 ml Output Total 0 ml Balance 315 ml 0 ml Justicifation of Admission Dx: Justifications for Admission: Justification of Admission Dx: N/A Acute Renal Failure: Serum Cr > 4mg/dL Chronic Renal Failure: Hemodynamic Instability Sepsis: Infection ASHIA MOSS MD Jun 26, 2021 10:10
--- NOTE | 2021-06-26 10:42 | PDOC ---
DATE OF SERVICE DATE: 06/26/21 TIME: 10:42 SUBJECTIVE ROS CVS: [] Orthopnea, [] CP RESP: [] SOB, [] CORTES GI: [] Nausea, [] Vomiting : [] Dysuria, [] Urgency OBJECTIVE Vital Signs Vital Signs Date Time Temp Pulse Resp B/P (MAP) Pulse Ox O2 Delivery O2 Flow Rate FiO2 06/26/21 07:00 98.2 84 18 156/64 (94) 91 Room Air 98.2 I & 0 Intake and Output 06/26/21 07:00 Intake Total 315 ml Output Total 0 ml Balance 315 ml Intake Oral 0 ml Blood Product IV Normal Saline Flush 315 ml Output Urine Total 0 ml PHYSICAL EXAM Physical Exam GEN: Awake, Oriented x [], In [] distress EYES: Vision Unchanged, Conjunctiva Normal EN: No EN Drainage, Mucous Membranes [] NECK: [] JVD, [] JVP, Supple, [] Thyromegaly CVS: S1S2, [] Murmur, No Gallop, No Rub,[] Edema RESP: [] Rales, [] Rhonchi,[] Acc. Muscle Use GI: BS + ve, NO Bruit, Non Tender, Non Distended : [] CVA tenderness, [] Suprapubic Tenderness DIAGNOSIS/ASSESSMENT Assessment & Plan ESRD/ARF: Current fluid and E-lyte status does not necessitate emergent need for dialysis. Will re-evaluate for dialysis in the am and continue on [] schedule. ANEMIA; [] Aranap as ordered, [] Transfuse [] with next HD as needed HTN: Current BP meds as reviewed. See orders for changes. BONE & MINERAL: [] Discussed Plan of Care with family [] at bedside [] over the phone COMMENT/RELEVANT DATA Meds Current Medications Medications (Trade) Dose Ordered Sig/Kimberly Start Time Stop Time Status Last Admin Dose Admin Dextrose (Dextrose 50%-Water Syringe) 12.5 gm PRN Q15MIN PRN 06/25/21 17:00 Famotidine (Pepcid Vial) 20 mg 1X ONCE 06/25/21 14:15 06/25/21 14:24 DC 06/25/21 15:04 20 MG Fentanyl Citrate (Fentanyl 2ml Vial) 50 mcg Q2HR PRN 06/25/21 17:00 06/26/21 16:59 06/25/21 19:22 50 MCG Hydralazine HCl (Apresoline Inj) 10 mg 1X ONCE 06/25/21 16:00 06/25/21 16:03 DC 06/25/21 17:19 10 MG Insulin Human Lispro (HumaLOG) 0-5 UNITS TIDWMEALS 06/25/21 17:00 Morphine Sulfate (Morphine Sulfate) 4 mg PRN Q2HR PRN 06/25/21 20:15 06/25/21 20:44 4 MG Ondansetron HCl (Zofran) 4 mg PRN Q8HRS PRN 06/25/21 17:00 06/26/21 16:59 Piperacillin Sod/ Tazobactam Sod (Zosyn Per Pharmacy) 1 each PRN DAILY PRN 06/25/21 19:00 Piperacillin Sod/ Tazobactam Sod 2.25 gm/Sodium Chloride 50 ml @ 100 mls/hr Q6HRS 06/25/21 19:00 06/26/21 06:05 100 MLS/HR Prochlorperazine Edisylate (Compazine) 10 mg PRN Q6HRS PRN 06/25/21 20:15 06/25/21 20:44 10 MG Lab Laboratory Tests Test 06/25/21 14:45 06/25/21 17:00 06/25/21 20:43 06/26/21 07:07 White Blood Count 4.1 x10^3/uL (4.0-11.0) Red Blood Count 2.00 x10^6/uL (3.50-5.40) Hemoglobin 6.7 g/dL (12.0-15.5) Hematocrit 20.5 % (36.0-47.0) Mean Corpuscular Volume 102 fL (79-100) Mean Corpuscular Hemoglobin 34 pg (25-35) Mean Corpuscular Hemoglobin Concent 33 g/dL (31-37) Red Cell Distribution Width 23.9 % (11.5-14.5) Platelet Count 156 x10^3/uL (140-400) Neutrophils (%) (Auto) 79 % (31-73) Lymphocytes (%) (Auto) 11 % (24-48) Monocytes (%) (Auto) 10 % (0-9) Eosinophils (%) (Auto) 0 % (0-3) Basophils (%) (Auto) 1 % (0-3) Neutrophils # (Auto) 3.2 x10^3/uL (1.8-7.7) Lymphocytes # (Auto) 0.4 x10^3/uL (1.0-4.8) Monocytes # (Auto) 0.4 x10^3/uL (0.0-1.1) Eosinophils # (Auto) 0.0 x10^3/uL (0.0-0.7) Basophils # (Auto) 0.0 x10^3/uL (0.0-0.2) Platelet Estimate Adequate (ADEQUATE) Polychromasia Slight Anisocytosis Mod Macrocytosis Slight Sodium Level 136 mmol/L (136-145) Potassium Level 4.4 mmol/L (3.5-5.1) Chloride Level 98 mmol/L (98-107) Carbon Dioxide Level 33 mmol/L (21-32) Anion Gap 5 (6-14) Blood Urea Nitrogen 33 mg/dL (7-20) Creatinine 6.0 mg/dL (0.6-1.0) Estimated GFR (Cockcroft-Gault) 8.5 BUN/Creatinine Ratio 6 (6-20) Glucose Level 131 mg/dL (70-99) Calcium Level 9.4 mg/dL (8.5-10.1) Magnesium Level 2.1 mg/dL (1.8-2.4) Total Bilirubin 0.5 mg/dL (0.2-1.0) Aspartate Amino Transf (AST/SGOT) 27 U/L (15-37) Alanine Aminotransferase (ALT/SGPT) 17 U/L (14-59) Alkaline Phosphatase 152 U/L (46-116) Creatine Kinase 47 U/L (26-192) Creatine Kinase MB (Mass) 2.3 ng/mL (0.0-3.6) Creatine Kinase MB Relative Index % (0-4) Troponin I Quantitative < 0.017 ng/mL (0.000-0.055) Total Protein 8.3 g/dL (6.4-8.2) Albumin 3.3 g/dL (3.4-5.0) Albumin/Globulin Ratio 0.7 (1.0-1.7) Lipase 65 U/L (73-393) SARS-CoV-2 RNA (AIRAM) Negative (Negative) SARS-CoV-2 Antigen (Rapid) Negative (NEGATIVE) Glucose (Fingerstick) 137 mg/dL (70-99) 118 mg/dL (70-99) Results All relevant outside records, renal labs, imaging studies, telemetry/EKG's were reviewed. Justicifation of Admission Dx: Justifications for Admission: Justification of Admission Dx: N/A Acute Renal Failure: Serum Cr > 4mg/dL Chronic Renal Failure: Hemodynamic Instability Sepsis: Infection GINO TAN MD Jun 26, 2021 10:42
--- NOTE | 2021-06-26 10:43 | PDOC2 ---
CONSULT Date of Consult Date of Consult DATE: 06/26/21 TIME: 10:42 Reason for Consult Reason for Consult: ESRD Identification/Chief Complaint Chief Complaint None currently Source Source: Chart review, Patient History of Present Illness Reason for Visit: 66 y/o AA female with Hx of frequent hospitalizations , admitted with c/o pain from upper to mid abdomen since Saturday. She missed dialysis 2/2 to the pain -"I couldn't move." Also c/o pain in lower back. Denies precipitating events. Denies Vomiting, diarrhea. No F/C. No SOB or CP . Currently feels better and wants to go home Past Medical History Cardiovascular: HTN, Hyperlipidemia Pulmonary: No pertinent hx GI: Constipation, GERD, GI bleed, Peptic Ulcer disease, Other Heme/Onc: Anemia NOS Hepatobiliary: Cirrhosis, Hep A/B/C, Other Psych: Addictions Rheumatologic: Rheumatoid arthritis Infectious disease: No pertinent hx Renal/: Chronic renal failure, Hematuria Endocrine: Diabetes, Hyperparathyroidism Past Surgical History Past Surgical History: Cholecystectomy, Tonsillectomy, Hysterectomy Family History Family History: Alcohol Abuse, Cancer, High Cholestrol, Hypertension Social History ALCOHOL: other Drugs: None Lives: with Family Domestic Violence: Neg Current Problem List Problem List Problems Medical Problems: (1) Abdominal pain Status: Acute (2) ESRD (end stage renal disease) on dialysis Status: Chronic (3) Nausea & vomiting Status: Acute (4) Severe anemia Status: Acute Current Medications Current Medications Current Medications Ondansetron HCl (Zofran) 4 mg 1X ONCE IVP Last administered on 06/25/21at 15:04; Admin Dose 4 MG; Start 06/25/21 at 14:15; Stop 06/25/21 at 14:24; Status DC Famotidine (Pepcid Vial) 20 mg 1X ONCE IVP Last administered on 06/25/21at 15:04; Admin Dose 20 MG; Start 06/25/21 at 14:15; Stop 06/25/21 at 14:24; Status DC Fentanyl Citrate (Fentanyl 2ml Vial) 50 mcg 1X ONCE IV Last administered on 06/25/21at 15:04; Admin Dose 50 MCG; Start 06/25/21 at 14:30; Stop 06/25/21 at 14:31; Status DC Hydralazine HCl (Apresoline Inj) 10 mg 1X ONCE IVP Last administered on 06/25/21at 17:19; Admin Dose 10 MG; Start 06/25/21 at 16:00; Stop 06/25/21 at 16:03; Status DC Ondansetron HCl (Zofran) 4 mg 1X ONCE IVP Last administered on 06/25/21at 17:19; Admin Dose 4 MG; Start 06/25/21 at 16:45; Stop 06/25/21 at 16:47; Status DC Fentanyl Citrate (Fentanyl 2ml Vial) 50 mcg 1X ONCE IVP Last administered on 06/25/21at 17:18; Admin Dose 50 MCG; Start 06/25/21 at 16:45; Stop 06/25/21 at 16:47; Status DC Ondansetron HCl (Zofran) 4 mg PRN Q8HRS PRN IVP NAUSEA/VOMITING; Start 06/25/21 at 17:00; Stop 06/26/21 at 16:59 Fentanyl Citrate (Fentanyl 2ml Vial) 50 mcg Q2HR PRN IVP PAIN Last administered on 06/25/21at 19:22; Admin Dose 50 MCG; Start 06/25/21 at 17:00; Stop 06/26/21 at 16:59 Insulin Human Lispro (HumaLOG) 0-5 UNITS TIDWMEALS SQ ; Start 06/25/21 at 17:00 Dextrose (Dextrose 50%-Water Syringe) 12.5 gm PRN Q15MIN PRN IV SEE COMMENTS; Start 06/25/21 at 17:00 Piperacillin Sod/ Tazobactam Sod (Zosyn Per Pharmacy) 1 each PRN DAILY PRN MC SEE COMMENTS; Start 06/25/21 at 19:00 Piperacillin Sod/ Tazobactam Sod 2.25 gm/Sodium Chloride 50 ml @ 100 mls/hr Q6HRS IV Last administered on 06/26/21at 06:05; Admin Dose 100 MLS/HR; Start 06/25/21 at 19:00 Morphine Sulfate (Morphine Sulfate) 4 mg PRN Q2HR PRN IV MODERATE TO SEVERE P AIN Last administered on 06/25/21at 20:44; Admin Dose 4 MG; Start 06/25/21 at 20:15 Prochlorperazine Edisylate (Compazine) 10 mg PRN Q6HRS PRN IV NAUSEA/VOMITING Last administered on 06/25/21at 20:44; Admin Dose 10 MG; Start 06/25/21 at 20:15 Active Scripts Active Medrol (Methylprednisolone) 4 Mg Tab.ds.pk 1 Pkg PO UD Omeprazole 40 Mg Capsule.dr Santana Cap PO BID Reported Sevelamer HCl 800 Mg Tablet 800 Mg PO BID MDD Oxycodone-Acetaminophn 7.5-325 (Oxycodone HCl/Acetaminophen) 1 Each Tablet 1 Tab PO QID PRN Carvedilol 25 Mg Tablet 25 Mg PO BIDWMEALS Allergies Allergies: Coded Allergies: No Known Drug Allergies (Unverified , 06/19/21) ROS Review of System As per HPI, rest of the ROS is negative Physical Exam Physical Exam GEN.: No apparent distress.Sitting up in chair HEENT: OM moist NECK: Supple. LUNGS: Clear to auscultation, non labored HEART: RRR, S1, S2 present. ABDOMEN: Soft, nontender. Positive bowel sounds. EXTREMITIES: Left extremity fistula ; No LE edema NEUROLOGIC: grossly normal SKIN: No rash No CVA or SP tenderness, No Carbajal Vital Signs Vital Signs Date Time Temp Pulse Resp B/P (MAP) Pulse Ox O2 Delivery O2 Flow Rate FiO2 06/26/21 07:00 98.2 84 18 156/64 (94) 91 Room Air 98.2 Assessment & Plan ESRD 2/ 2 DM and HTN. On HD TTS , missed Saturday . Clinically stable Resp status, K is normal. Offered her make up dialysis this morning, she refused Discharge per primary, to resume Dialysis at her Unit tomorrow if dced today Recent Hx of hematemesis / Dieulafoy's lesions, s/p post-clipping. Anemia: Hgb <7 POA , defer to GI Hx of Fall at home -S/P ORIF left distal femur fracture on 04/06 Hx of frequent c/o dark coffee ground emesis and dark black stool with clots. s/p Endotherapy 04/10/21 H/o recurrent UGI bleeding, refractory ulcer - endotherapy 01/12/20 (has had 7 EGDs since 2015), past GDA embolization by and surgical evals (poor surgical candidate) S/P EGD on 10/11 Chrionic Leukopenia, thrombocytopenia, macrocytosis - bone marrow biopsy was recommended per heme/onc in the past. WBC lower compared to her previous admissions. Defer to primary Hx of Nonobstructing calculi in the right kidney with no hydronephrosis or obstructive uropathy seen. H/o pancreatitis, alcoholic GERD, cirrhosis, Hep C, h/o C Diff, h/o pancreatitis Labs Labs Laboratory Tests Test 06/25/21 14:45 06/25/21 17:00 06/25/21 20:43 06/26/21 07:07 White Blood Count 4.1 x10^3/uL (4.0-11.0) Red Blood Count 2.00 x10^6/uL (3.50-5.40) Hemoglobin 6.7 g/dL (12.0-15.5) Hematocrit 20.5 % (36.0-47.0) Mean Corpuscular Volume 102 fL (79-100) Mean Corpuscular Hemoglobin 34 pg (25-35) Mean Corpuscular Hemoglobin Concent 33 g/dL (31-37) Red Cell Distribution Width 23.9 % (11.5-14.5) Platelet Count 156 x10^3/uL (140-400) Neutrophils (%) (Auto) 79 % (31-73) Lymphocytes (%) (Auto) 11 % (24-48) Monocytes (%) (Auto) 10 % (0-9) Eosinophils (%) (Auto) 0 % (0-3) Basophils (%) (Auto) 1 % (0-3) Neutrophils # (Auto) 3.2 x10^3/uL (1.8-7.7) Lymphocytes # (Auto) 0.4 x10^3/uL (1.0-4.8) Monocytes # (Auto) 0.4 x10^3/uL (0.0-1.1) Eosinophils # (Auto) 0.0 x10^3/uL (0.0-0.7) Basophils # (Auto) 0.0 x10^3/uL (0.0-0.2) Platelet Estimate Adequate (ADEQUATE) Polychromasia Slight Anisocytosis Mod Macrocytosis Slight Sodium Level 136 mmol/L (136-145) Potassium Level 4.4 mmol/L (3.5-5.1) Chloride Level 98 mmol/L (98-107) Carbon Dioxide Level 33 mmol/L (21-32) Anion Gap 5 (6-14) Blood Urea Nitrogen 33 mg/dL (7-20) Creatinine 6.0 mg/dL (0.6-1.0) Estimated GFR (Cockcroft-Gault) 8.5 BUN/Creatinine Ratio 6 (6-20) Glucose Level 131 mg/dL (70-99) Calcium Level 9.4 mg/dL (8.5-10.1) Magnesium Level 2.1 mg/dL (1.8-2.4) Total Bilirubin 0.5 mg/dL (0.2-1.0) Aspartate Amino Transf (AST/SGOT) 27 U/L (15-37) Alanine Aminotransferase (ALT/SGPT) 17 U/L (14-59) Alkaline Phosphatase 152 U/L (46-116) Creatine Kinase 47 U/L (26-192) Creatine Kinase MB (Mass) 2.3 ng/mL (0.0-3.6) Creatine Kinase MB Relative Index % (0-4) Troponin I Quantitative < 0.017 ng/mL (0.000-0.055) Total Protein 8.3 g/dL (6.4-8.2) Albumin 3.3 g/dL (3.4-5.0) Albumin/Globulin Ratio 0.7 (1.0-1.7) Lipase 65 U/L (73-393) SARS-CoV-2 RNA (AIRAM) Negative (Negative) SARS-CoV-2 Antigen (Rapid) Negative (NEGATIVE) Glucose (Fingerstick) 137 mg/dL (70-99) 118 mg/dL (70-99) Laboratory Tests Test 06/25/21 14:45 06/25/21 17:00 06/25/21 20:43 06/26/21 07:07 White Blood Count 4.1 x10^3/uL (4.0-11.0) Red Blood Count 2.00 x10^6/uL (3.50-5.40) Hemoglobin 6.7 g/dL (12.0-15.5) Hematocrit 20.5 % (36.0-47.0) Mean Corpuscular Volume 102 fL (79-100) Mean Corpuscular Hemoglobin 34 pg (25-35) Mean Corpuscular Hemoglobin Concent 33 g/dL (31-37) Red Cell Distribution Width 23.9 % (11.5-14.5) Platelet Count 156 x10^3/uL (140-400) Neutrophils (%) (Auto) 79 % (31-73) Lymphocytes (%) (Auto) 11 % (24-48) Monocytes (%) (Auto) 10 % (0-9) Eosinophils (%) (Auto) 0 % (0-3) Basophils (%) (Auto) 1 % (0-3) Neutrophils # (Auto) 3.2 x10^3/uL (1.8-7.7) Lymphocytes # (Auto) 0.4 x10^3/uL (1.0-4.8) Monocytes # (Auto) 0.4 x10^3/uL (0.0-1.1) Eosinophils # (Auto) 0.0 x10^3/uL (0.0-0.7) Basophils # (Auto) 0.0 x10^3/uL (0.0-0.2) Platelet Estimate Adequate (ADEQUATE) Polychromasia Slight Anisocytosis Mod Macrocytosis Slight Sodium Level 136 mmol/L (136-145) Potassium Level 4.4 mmol/L (3.5-5.1) Chloride Level 98 mmol/L (98-107) Carbon Dioxide Level 33 mmol/L (21-32) Anion Gap 5 (6-14) Blood Urea Nitrogen 33 mg/dL (7-20) Creatinine 6.0 mg/dL (0.6-1.0) Estimated GFR (Cockcroft-Gault) 8.5 BUN/Creatinine Ratio 6 (6-20) Glucose Level 131 mg/dL (70-99) Calcium Level 9.4 mg/dL (8.5-10.1) Magnesium Level 2.1 mg/dL (1.8-2.4) Total Bilirubin 0.5 mg/dL (0.2-1.0) Aspartate Amino Transf (AST/SGOT) 27 U/L (15-37) Alanine Aminotransferase (ALT/SGPT) 17 U/L (14-59) Alkaline Phosphatase 152 U/L (46-116) Creatine Kinase 47 U/L (26-192) Creatine Kinase MB (Mass) 2.3 ng/mL (0.0-3.6) Creatine Kinase MB Relative Index % (0-4) Troponin I Quantitative < 0.017 ng/mL (0.000-0.055) Total Protein 8.3 g/dL (6.4-8.2) Albumin 3.3 g/dL (3.4-5.0) Albumin/Globulin Ratio 0.7 (1.0-1.7) Lipase 65 U/L (73-393) SARS-CoV-2 RNA (AIRAM) Negative (Negative) SARS-CoV-2 Antigen (Rapid) Negative (NEGATIVE) Glucose (Fingerstick) 137 mg/dL (70-99) 118 mg/dL (70-99) Review All relevant outside records, renal labs, imaging studies, telemetry/EKG's were reviewed. Images Images CT abdomen 1. Mild fat stranding identified about the pancreas and about the duodenum could be due to pancreatitis or duodenitis. Correlate with lab values. 2. Mild fat stranding identified about the urinary bladder could be due to nondistention or cystitis. Correlate with lab values. 3. Punctate calculi identified in the right kidney the largest measuring 3 mm. 4. Small umbilical hernia identified containing possible knuckle of small bowel or fluid within. 5. Small bilateral pleural effusions. 6. Minimal nodular appearance of the liver could be mild cirrhotic appearance. 7. Small amount of fluid identified in the perihepatic and in the stomach likely mild ascites. 8. Mild fat stranding abdominal wall could be edema or cellulitis GINO TAN MD Jun 26, 2021 10:43
[2021-06-26 11:18] VITALS: BP 155/72
--- NOTE | 2021-06-26 11:18 | PDOC2 ---
GI CONSULT Date of Service: DATE: 06/26/21 TIME: 11:04 Reason For Consult: n/v, diarrhea, abnormal CT HPI: HPI: 66 y/o female who we see frequently. Reports pain in a straight line from upper to mid abdomen began on Saturday. Also had pain in lower back. Denies precipitating events. Retching but no vomiting. Denies diarrhea. Also denies bleeding. Missed HD on Saturday due to pain - "I couldn't move." Feels a little better now and is able to eat some. Wants to go home and do HD tomorrow (on her regular TThS schedule). Reports compliance w/ PPI BID. Hgb 6.7, s/p 1 unit pRBCs. Quite hypertensive in ER. PMH: PMH: HTN, HLD, ESRD on HD, RA, DM, hyperparathyroidism, OA, COVID-19 partial hysterectomy, cataract, left femur ORIF FH: Family History: No pertinent hx (no GI cancers), DM Social History: Smoke: Quit ALCOHOL: other (heavy use in past - ?still drinking) Drugs: None ROS: GEN: Denies fevers, chills, sweats HEENT: Denies blurred vision, sore throat CV: Denies chest pain RESP: Denies shortness of air, cough GI: Per HPI : Denies hematuria, dysuria ENDO: Denies weight changes NEURO: Denies confusion, dizziness MSK: lower back pain SKIN: Denies jaundice, pruritus Vitals: Vitals: Vital Signs Date Time Temp Pulse Resp B/P (MAP) Pulse Ox O2 Delivery O2 Flow Rate FiO2 06/26/21 08:00 Room Air 06/26/21 07:00 98.2 84 18 156/64 (94) 91 98.2 Labs: Labs: Laboratory Tests Test 06/25/21 14:45 06/25/21 17:00 06/25/21 20:43 06/26/21 07:07 White Blood Count 4.1 x10^3/uL (4.0-11.0) Red Blood Count 2.00 x10^6/uL (3.50-5.40) Hemoglobin 6.7 g/dL (12.0-15.5) Hematocrit 20.5 % (36.0-47.0) Mean Corpuscular Volume 102 fL (79-100) Mean Corpuscular Hemoglobin 34 pg (25-35) Mean Corpuscular Hemoglobin Concent 33 g/dL (31-37) Red Cell Distribution Width 23.9 % (11.5-14.5) Platelet Count 156 x10^3/uL (140-400) Neutrophils (%) (Auto) 79 % (31-73) Lymphocytes (%) (Auto) 11 % (24-48) Monocytes (%) (Auto) 10 % (0-9) Eosinophils (%) (Auto) 0 % (0-3) Basophils (%) (Auto) 1 % (0-3) Neutrophils # (Auto) 3.2 x10^3/uL (1.8-7.7) Lymphocytes # (Auto) 0.4 x10^3/uL (1.0-4.8) Monocytes # (Auto) 0.4 x10^3/uL (0.0-1.1) Eosinophils # (Auto) 0.0 x10^3/uL (0.0-0.7) Basophils # (Auto) 0.0 x10^3/uL (0.0-0.2) Platelet Estimate Adequate (ADEQUATE) Polychromasia Slight Anisocytosis Mod Macrocytosis Slight Sodium Level 136 mmol/L (136-145) Potassium Level 4.4 mmol/L (3.5-5.1) Chloride Level 98 mmol/L (98-107) Carbon Dioxide Level 33 mmol/L (21-32) Anion Gap 5 (6-14) Blood Urea Nitrogen 33 mg/dL (7-20) Creatinine 6.0 mg/dL (0.6-1.0) Estimated GFR (Cockcroft-Gault) 8.5 BUN/Creatinine Ratio 6 (6-20) Glucose Level 131 mg/dL (70-99) Calcium Level 9.4 mg/dL (8.5-10.1) Magnesium Level 2.1 mg/dL (1.8-2.4) Total Bilirubin 0.5 mg/dL (0.2-1.0) Aspartate Amino Transf (AST/SGOT) 27 U/L (15-37) Alanine Aminotransferase (ALT/SGPT) 17 U/L (14-59) Alkaline Phosphatase 152 U/L (46-116) Creatine Kinase 47 U/L (26-192) Creatine Kinase MB (Mass) 2.3 ng/mL (0.0-3.6) Creatine Kinase MB Relative Index % (0-4) Troponin I Quantitative < 0.017 ng/mL (0.000-0.055) Total Protein 8.3 g/dL (6.4-8.2) Albumin 3.3 g/dL (3.4-5.0) Albumin/Globulin Ratio 0.7 (1.0-1.7) Lipase 65 U/L (73-393) SARS-CoV-2 RNA (AIRAM) Negative (Negative) SARS-CoV-2 Antigen (Rapid) Negative (NEGATIVE) Glucose (Fingerstick) 137 mg/dL (70-99) 118 mg/dL (70-99) Allergies: Coded Allergies: No Known Drug Allergies (Unverified , 06/19/21) Medications: Current Medications Medications (Trade) Dose Ordered Sig/Kimberly Route PRN Reason Start Time Stop Time Status Last Admin Dose Admin Ondansetron HCl (Zofran) 4 mg 1X ONCE IVP 06/25/21 14:15 06/25/21 14:24 DC 06/25/21 15:04 Famotidine (Pepcid Vial) 20 mg 1X ONCE IVP 06/25/21 14:15 06/25/21 14:24 DC 06/25/21 15:04 Fentanyl Citrate (Fentanyl 2ml Vial) 50 mcg 1X ONCE IV 06/25/21 14:30 06/25/21 14:31 DC 06/25/21 15:04 Hydralazine HCl (Apresoline Inj) 10 mg 1X ONCE IVP 06/25/21 16:00 06/25/21 16:03 DC 06/25/21 17:19 Ondansetron HCl (Zofran) 4 mg 1X ONCE IVP 06/25/21 16:45 06/25/21 16:47 DC 06/25/21 17:19 Fentanyl Citrate (Fentanyl 2ml Vial) 50 mcg 1X ONCE IVP 06/25/21 16:45 06/25/21 16:47 DC 06/25/21 17:18 Fentanyl Citrate (Fentanyl 2ml Vial) 50 mcg Q2HR PRN IVP PAIN 06/25/21 17:00 06/26/21 16:59 06/25/21 19:22 Piperacillin Sod/ Tazobactam Sod 2.25 gm/Sodium Chloride 50 ml @ 100 mls/hr Q6HRS IV 06/25/21 19:00 06/26/21 06:05 Morphine Sulfate (Morphine Sulfate) 4 mg PRN Q2HR PRN IV MODERATE TO SEVERE PAIN 06/25/21 20:15 06/25/21 20:44 Prochlorperazine Edisylate (Compazine) 10 mg PRN Q6HRS PRN IV NAUSEA/VOMITING 06/25/21 20:15 06/25/21 20:44 Imaging: Imaging: CT A/P IMPRESSION: 1. Mild fat stranding identified about the pancreas and about the duodenum could be due to pancreatitis or duodenitis. Correlate with lab values. 2. Mild fat stranding identified about the urinary bladder could be due to nondistention or cystitis. Correlate with lab values. 3. Punctate calculi identified in the right kidney the largest measuring 3 mm. 4. Small umbilical hernia identified containing possible knuckle of small bowel or fluid within. 5. Small bilateral pleural effusions. 6. Minimal nodular appearance of the liver could be mild cirrhotic appearance. 7. Small amount of fluid identified in the perihepatic and in the stomach likely mild ascites. 8. Mild fat stranding abdominal wall could be edema or cellulitis PE: GEN: NAD - breakfast tray 50% consumed (eggs, toast w/ jelly) HEENT: Atraumatic, PERRL LUNGS: CTAB HEART: RRR ABD: quiet BS, soft, periumbilical/epigastric discomfort EXTREMITY: No edema SKIN: No rashes, no jaundice NEURO/PSYCH: A & O 3 A/P: A/P: Abd pain, nausea - better HTN, ESRD on HD, non-compliance Chronic anemia, thrombocytopenia, macrocytosis, also leukopenia in past - bone marrow biopsy recommended per heme/onc in the past H/o recurrent UGI bleeding, refractory ulcer (negative for H. pylori, h/o NSAID use), past GDA embolization and surgical evals (poor surgical candidate) - 9 EGDs since 2015; last EGD 03/2021 w/ Dr. Faulkner: old blood in esophagus, no esophageal varices, thin hematin filling most of stomach, adherent clot and some apparent oozing of fresh blood in distal antrum (injected with epi, cauterized - site of prior ulcer), normal duodenum H/o GERD, cirrhosis, Hep C, pancreatitis, recurrent C Diff, h/o alcohol overuse CRC screen - last colonoscopy unremarkable at [facility] in 2018 Elevated Alk Phos (chronic) COVID negative -- Still some tenderness on exam but tolerated some breakfast. She's asking to go home - defer to primary and nephrology. Transfuse as needed - she denies bleeding this time. Hgb actually not so out of her usual range. Will review CT w/ Dr. Faulkner. Not getting PPI here - will restart. IRIS SZYMANSKI Jun 26, 2021 11:18
--- NOTE | 2021-06-26 11:53 | NUR ---
SW following. Discussed with RN, pt from home, room air, renal diet. Pt missed dialysis. Rapid COVID-19 negative. Pt getting blood today. SW will continue to follow.
[2021-06-26] MEDS: MORPHINE SULFATE 2 MG/ML INJ. IV PRN (12:02)
[2021-06-26 15:25] VITALS: BP 131/65
[2021-06-26] MEDS: PANTOPRAZOLE 40 MG TABLET.DR. PO SCH (17:05)
[2021-06-26 19:00] VITALS: BP 140/71
[2021-06-26 23:57] VITALS: BP 151/68
[2021-06-27 03:45] VITALS: BP 157/61
[2021-06-27] MEDS: PIPERACILLIN/TAZOBACTAM 2.25 GM in IV NORMAL SALINE 50ML 50 ML IV SCH ×3 (06:06→18:00)
[2021-06-27 07:00] VITALS: BP 140/66
[2021-06-27 07:53] LABS: HEMATOCRIT 23.6 % (36.0-47.0); HEMOGLOBIN 7.7 g/dL (12.0-15.5); RED BLOOD COUNT 2.33 x10^6/uL (3.50-5.40); WHITE BLOOD COUNT 3.8 x10^3/uL (4.0-11.0)
[2021-06-27] MEDS: INSULIN LISPRO 300 UNITS/3 ML VIAL. SQ SCH ×3 (08:00→17:00)
[2021-06-27 08:05] LABS: CALCIUM 8.7 mg/dL (8.5-10.1); CREATININE 7.1 mg/dL (0.6-1.0); POTASSIUM 4.8 mmol/L (3.5-5.1)
[2021-06-27] MEDS: PANTOPRAZOLE 40 MG TABLET.DR. PO SCH ×2 (08:15→16:30)
--- NOTE | 2021-06-27 09:01 | PDOC ---
PROGRESS NOTES Date of Service: DATE: 06/27/21 TIME: 09:01 Chief Complaint Chief Complaint IMPRESSION Nausea, vomiting, diarrhea abnormal CAT scan suspicious for pancreatitis or duodenitis IE, Mild fat stranding identified about the pancreas and about the duodenum could be due to pancreatitis or duodenitis end-stage renal disease severe anemia with a hemoglobin of 6.7. PLAN admitted. consult GI, consult Nephrology. Transfuse on dialysis. Home meds, deep venous thrombosis prophylaxis. Full code. Trend labs. P.r.n. fentanyl, p.r.n. IV Zofran, IV Pepcid. d/w RN 06-27 refused dialysis yesterday Dialysis today , discussed treatment plan RN History of Present Illness History of Present Illness CHIEF COMPLAINT: Nausea, vomiting, and diarrhea. HISTORY OF PRESENT ILLNESS: The patient is a pleasant 66-year-old female well known to our service. She gets admitted about once a month for various issues related usually to her end-stage renal disease. At this time interestingly, she has more nausea, vomiting, diarrhea, and GI symptoms. She also was noted to be anemic with a hemoglobin of 6.7. I discussed the case with ER physician. We are going to admit the patient, get her dialyzed, get her transfused. I am also going to consult GI regarding her nausea, vomiting, and diarrhea. PAST MEDICAL HISTORY: Diabetes, GERD, GI bleed, hypertension, kidney stones, pancreatitis, pneumonia, peptic ulcer disease, renal failure. She is on dialysis. C. diff, ulcer, cirrhosis, chronic pain, cholecystectomy, hysterectomy, tonsillectomy, fistula placement. ALLERGIES: None. FAMILY HISTORY: Diabetes and end-stage renal disease. SOCIAL HISTORY: She does not drink, smoke or take drugs. MEDICATIONS: Reviewed, please refer to the MRAD. REVIEW OF SYSTEMS: GENERAL: No history of weight change, weakness or fevers. SKIN: No bruising, hair changes or rashes. EYES: No blurred, double or loss of vision. NOSE AND THROAT: No history of nosebleeds, hoarseness or sore throat. HEART: No history of palpitations, chest pain or shortness of breath on exertion. LUNGS: Denies cough, hemoptysis, wheezing or shortness of breath. GASTROINTESTINAL: She complains of nausea, vomiting, or diarrhea. GENITOURINARY: No history of frequency, urgency, hesitancy or nocturia. NEUROLOGIC: Denies history of numbness, tingling, tremor or weakness. PSYCHIATRIC: No history of panic, anxiety or depression. ENDOCRINE: No history of heat or cold intolerance, polyuria or polydipsia. EXTREMITIES: Denies muscle weakness, joint pain, pain on walking or stiffness. 06-27 refused dialysis yesterday Dialysis today , discussed treatment plan HOME AFTER DIALYSIS D/W RN D/C PLANNING 34 MIN Vitals Vitals Vital Signs Date Time Temp Pulse Resp B/P (MAP) Pulse Ox O2 Delivery O2 Flow Rate FiO2 06/27/21 07:00 97.8 77 18 140/66 (90) 96 Room Air 97.8 Physical Exam Physical Exam GENERAL: No apparent distress. Alert and oriented. HEENT: Normal cephalic atraumatic, external auditory canals are patent EYES: Extraocular muscles are intact, pupils are equally round and reactive to light and accommodation MUSCULOSKELETAL: Well developed, well nourished, good range of motion. ENDOCRINE: No thyromegaly was palpated. LYMPHATICS: No cervical chain or axillary nodes were noted. HEMATOPOIETIC: No bruising. NECK: Supple, no JVD, no thyromegaly was noted. LUNGS: Clear to auscultation in all lung chaudhry without rhonchi or wheezing. HEART: RRR, S1, S2 present. Peripheral pulses intact, no obvious murmurs were noted. ABDOMEN: Soft, nontender. Positive bowel sounds no organomegaly, normal bowel sounds. EXTREMITIES: Without any cyanosis, clubbing, or edema. Pedal pulses intact, Homans sign is negative. NEUROLOGIC: Normal speech, normal tone. A and O x3, moves all extremities, no obvious focal deficits. PSYCHIATRIC: Normal affect, normal mood. Stable. SKIN: No ulcerations or rashes, good skin turgor, no jaundice. VASCULAR: Good capillary refill, neurovascular bundle appears to be intact. General: Alert, Oriented X3, Cooperative, No acute distress Heart: Regular rate, Normal S1 Lungs: Clear Extremities: No clubbing, No cyanosis Skin: No rashes Labs LABS Laboratory Tests Test 06/26/21 11:40 06/26/21 16:43 06/26/21 19:35 06/27/21 07:15 Glucose (Fingerstick) 163 mg/dL (70-99) 113 mg/dL (70-99) 130 mg/dL (70-99) White Blood Count 3.8 x10^3/uL (4.0-11.0) Red Blood Count 2.33 x10^6/uL (3.50-5.40) Hemoglobin 7.7 g/dL (12.0-15.5) Hematocrit 23.6 % (36.0-47.0) Mean Corpuscular Volume 101 fL (79-100) Mean Corpuscular Hemoglobin 33 pg (25-35) Mean Corpuscular Hemoglobin Concent 33 g/dL (31-37) Red Cell Distribution Width 23.0 % (11.5-14.5) Platelet Count 131 x10^3/uL (140-400) Sodium Level 138 mmol/L (136-145) Potassium Level 4.8 mmol/L (3.5-5.1) Chloride Level 99 mmol/L (98-107) Carbon Dioxide Level 28 mmol/L (21-32) Anion Gap 11 (6-14) Blood Urea Nitrogen 49 mg/dL (7-20) Creatinine 7.1 mg/dL (0.6-1.0) Estimated GFR (Cockcroft-Gault) 7.0 Glucose Level 94 mg/dL (70-99) Calcium Level 8.7 mg/dL (8.5-10.1) Test 06/27/21 07:55 Glucose (Fingerstick) 92 mg/dL (70-99) Assessment and Plan Assessmemt and Plan Problems Medical Problems: (1) Abdominal pain Status: Acute (2) ESRD (end stage renal disease) on dialysis Status: Chronic (3) Nausea & vomiting Status: Acute (4) Severe anemia Status: Acute Comment Review of Relevant I have reviewed the following items tamika (where applicable) has been applied. Labs Laboratory Tests Test 06/25/21 14:45 06/25/21 17:00 06/25/21 20:43 06/26/21 07:07 White Blood Count 4.1 x10^3/uL (4.0-11.0) Red Blood Count 2.00 x10^6/uL (3.50-5.40) Hemoglobin 6.7 g/dL (12.0-15.5) Hematocrit 20.5 % (36.0-47.0) Mean Corpuscular Volume 102 fL (79-100) Mean Corpuscular Hemoglobin 34 pg (25-35) Mean Corpuscular Hemoglobin Concent 33 g/dL (31-37) Red Cell Distribution Width 23.9 % (11.5-14.5) Platelet Count 156 x10^3/uL (140-400) Neutrophils (%) (Auto) 79 % (31-73) Lymphocytes (%) (Auto) 11 % (24-48) Monocytes (%) (Auto) 10 % (0-9) Eosinophils (%) (Auto) 0 % (0-3) Basophils (%) (Auto) 1 % (0-3) Neutrophils # (Auto) 3.2 x10^3/uL (1.8-7.7) Lymphocytes # (Auto) 0.4 x10^3/uL (1.0-4.8) Monocytes # (Auto) 0.4 x10^3/uL (0.0-1.1) Eosinophils # (Auto) 0.0 x10^3/uL (0.0-0.7) Basophils # (Auto) 0.0 x10^3/uL (0.0-0.2) Platelet Estimate Adequate (ADEQUATE) Polychromasia Slight Anisocytosis Mod Macrocytosis Slight Sodium Level 136 mmol/L (136-145) Potassium Level 4.4 mmol/L (3.5-5.1) Chloride Level 98 mmol/L (98-107) Carbon Dioxide Level 33 mmol/L (21-32) Anion Gap 5 (6-14) Blood Urea Nitrogen 33 mg/dL (7-20) Creatinine 6.0 mg/dL (0.6-1.0) Estimated GFR (Cockcroft-Gault) 8.5 BUN/Creatinine Ratio 6 (6-20) Glucose Level 131 mg/dL (70-99) Calcium Level 9.4 mg/dL (8.5-10.1) Magnesium Level 2.1 mg/dL (1.8-2.4) Total Bilirubin 0.5 mg/dL (0.2-1.0) Aspartate Amino Transf (AST/SGOT) 27 U/L (15-37) Alanine Aminotransferase (ALT/SGPT) 17 U/L (14-59) Alkaline Phosphatase 152 U/L (46-116) Creatine Kinase 47 U/L (26-192) Creatine Kinase MB (Mass) 2.3 ng/mL (0.0-3.6) Creatine Kinase MB Relative Index % (0-4) Troponin I Quantitative < 0.017 ng/mL (0.000-0.055) Total Protein 8.3 g/dL (6.4-8.2) Albumin 3.3 g/dL (3.4-5.0) Albumin/Globulin Ratio 0.7 (1.0-1.7) Lipase 65 U/L (73-393) SARS-CoV-2 RNA (AIRAM) Negative (Negative) SARS-CoV-2 Antigen (Rapid) Negative (NEGATIVE) Glucose (Fingerstick) 137 mg/dL (70-99) 118 mg/dL (70-99) Test 06/26/21 11:40 06/26/21 16:43 06/26/21 19:35 06/27/21 07:15 Glucose (Fingerstick) 163 mg/dL (70-99) 113 mg/dL (70-99) 130 mg/dL (70-99) White Blood Count 3.8 x10^3/uL (4.0-11.0) Red Blood Count 2.33 x10^6/uL (3.50-5.40) Hemoglobin 7.7 g/dL (12.0-15.5) Hematocrit 23.6 % (36.0-47.0) Mean Corpuscular Volume 101 fL (79-100) Mean Corpuscular Hemoglobin 33 pg (25-35) Mean Corpuscular Hemoglobin Concent 33 g/dL (31-37) Red Cell Distribution Width 23.0 % (11.5-14.5) Platelet Count 131 x10^3/uL (140-400) Sodium Level 138 mmol/L (136-145) Potassium Level 4.8 mmol/L (3.5-5.1) Chloride Level 99 mmol/L (98-107) Carbon Dioxide Level 28 mmol/L (21-32) Anion Gap 11 (6-14) Blood Urea Nitrogen 49 mg/dL (7-20) Creatinine 7.1 mg/dL (0.6-1.0) Estimated GFR (Cockcroft-Gault) 7.0 Glucose Level 94 mg/dL (70-99) Calcium Level 8.7 mg/dL (8.5-10.1) Test 06/27/21 07:55 Glucose (Fingerstick) 92 mg/dL (70-99) Laboratory Tests Test 06/26/21 11:40 06/26/21 16:43 06/26/21 19:35 06/27/21 07:15 Glucose (Fingerstick) 163 mg/dL (70-99) 113 mg/dL (70-99) 130 mg/dL (70-99) White Blood Count 3.8 x10^3/uL (4.0-11.0) Red Blood Count 2.33 x10^6/uL (3.50-5.40) Hemoglobin 7.7 g/dL (12.0-15.5) Hematocrit 23.6 % (36.0-47.0) Mean Corpuscular Volume 101 fL (79-100) Mean Corpuscular Hemoglobin 33 pg (25-35) Mean Corpuscular Hemoglobin Concent 33 g/dL (31-37) Red Cell Distribution Width 23.0 % (11.5-14.5) Platelet Count 131 x10^3/uL (140-400) Sodium Level 138 mmol/L (136-145) Potassium Level 4.8 mmol/L (3.5-5.1) Chloride Level 99 mmol/L (98-107) Carbon Dioxide Level 28 mmol/L (21-32) Anion Gap 11 (6-14) Blood Urea Nitrogen 49 mg/dL (7-20) Creatinine 7.1 mg/dL (0.6-1.0) Estimated GFR (Cockcroft-Gault) 7.0 Glucose Level 94 mg/dL (70-99) Calcium Level 8.7 mg/dL (8.5-10.1) Test 06/27/21 07:55 Glucose (Fingerstick) 92 mg/dL (70-99) Medications Current Medications Ondansetron HCl (Zofran) 4 mg 1X ONCE IVP Last administered on 06/25/21at 15:04; Start 06/25/21 at 14:15; Stop 06/25/21 at 14:24; Status DC Famotidine (Pepcid Vial) 20 mg 1X ONCE IVP Last administered on 06/25/21at 15:04; Start 06/25/21 at 14:15; Stop 06/25/21 at 14:24; Status DC Fentanyl Citrate (Fentanyl 2ml Vial) 50 mcg 1X ONCE IV Last administered on 06/25/21at 15:04; Start 06/25/21 at 14:30; Stop 06/25/21 at 14:31; Status DC Hydralazine HCl (Apresoline Inj) 10 mg 1X ONCE IVP Last administered on 06/25/21at 17:19; Start 06/25/21 at 16:00; Stop 06/25/21 at 16:03; Status DC Ondansetron HCl (Zofran) 4 mg 1X ONCE IVP Last administered on 06/25/21at 17:19; Start 06/25/21 at 16:45; Stop 06/25/21 at 16:47; Status DC Fentanyl Citrate (Fentanyl 2ml Vial) 50 mcg 1X ONCE IVP Last administered on 06/25/21at 17:18; Start 06/25/21 at 16:45; Stop 06/25/21 at 16:47; Status DC Ondansetron HCl (Zofran) 4 mg PRN Q8HRS PRN IVP NAUSEA/VOMITING; Start 06/25/21 at 17:00; Stop 06/26/21 at 16:59; Status DC Fentanyl Citrate (Fentanyl 2ml Vial) 50 mcg Q2HR PRN IVP PAIN Last administered on 06/25/21at 19:22; Start 06/25/21 at 17:00; Stop 06/26/21 at 16:59; Status DC Insulin Human Lispro (HumaLOG) 0-5 UNITS TIDWMEALS SQ Last administered on 06/26/21at 12:12; Start 06/25/21 at 17:00 Dextrose (Dextrose 50%-Water Syringe) 12.5 gm PRN Q15MIN PRN IV SEE COMMENTS; Start 06/25/21 at 17:00 Piperacillin Sod/ Tazobactam Sod (Zosyn Per Pharmacy) 1 each PRN DAILY PRN MC SEE COMMENTS; Start 06/25/21 at 19:00 Piperacillin Sod/ Tazobactam Sod 2.25 gm/Sodium Chloride 50 ml @ 100 mls/hr Q6HRS IV Last administered on 06/27/21at 06:06; Start 06/25/21 at 19:00 Morphine Sulfate (Morphine Sulfate) 4 mg PRN Q2HR PRN IV MODERATE TO SEVERE PAIN Last administered on 06/26/21at 12:02; Start 06/25/21 at 20:15 Prochlorperazine Edisylate (Compazine) 10 mg PRN Q6HRS PRN IV NAUSEA/VOMITING Last administered on 06/25/21at 20:44; Start 06/25/21 at 20:15 Pantoprazole Sodium (Protonix) 40 mg BIDAC PO Last administered on 06/27/21at 08:15; Start 06/26/21 at 16:30 Active Scripts Active Medrol (Methylprednisolone) 4 Mg Tab.ds.pk 1 Pkg PO UD Omeprazole 40 Mg Capsule.dr 1 Cap PO BID Reported Sevelamer HCl 800 Mg Tablet 800 Mg PO BID MDD Oxycodone-Acetaminophn 7.5-325 (Oxycodone HCl/Acetaminophen) 1 Each Tablet 1 Tab PO QID PRN Carvedilol 25 Mg Tablet 25 Mg PO BIDWMEALS Vitals/I & O Vital Sign - Last 24 Hours 06/26/21 06/26/21 06/26/21 06/26/21 11:18 15:25 19:00 23:57 Temp 97.9 98.1 97.9 98.1 97.9 98.1 97.9 98.1 Pulse 82 78 80 82 Resp 18 20 18 16 B/P (MAP) 155/72 (99) 131/65 (87) 140/71 (94) 151/68 (95) Pulse Ox 96 98 98 98 O2 Delivery Room Air Room Air Room Air Room Air 06/27/21 06/27/21 03:45 07:00 Temp 98.0 97.8 98.0 97.8 Pulse 81 77 Resp 18 18 B/P (MAP) 157/61 (93) 140/66 (90) Pulse Ox 96 96 O2 Delivery Room Air Room Air Intake and Output 06/26/21 06/26/21 06/27/21 15:00 23:00 07:00 Intake Total 240 ml 60 ml 0 ml Balance 240 ml 60 ml 0 ml Justicifation of Admission Dx: Justifications for Admission: Justification of Admission Dx: N/A Acute Renal Failure: Serum Cr > 4mg/dL Chronic Renal Failure: Hemodynamic Instability Sepsis: Infection ASHIA MOSS MD Jun 27, 2021 09:01
[2021-06-27] MEDS: MORPHINE SULFATE 2 MG/ML INJ. IV PRN (09:09)
--- NOTE | 2021-06-27 09:40 | PDOC ---
DATE OF SERVICE DATE: 06/27/21 TIME: 09:40 SUBJECTIVE ROS stable OBJECTIVE Vital Signs Vital Signs Date Time Temp Pulse Resp B/P (MAP) Pulse Ox O2 Delivery O2 Flow Rate FiO2 06/27/21 07:00 97.8 77 18 140/66 (90) 96 Room Air 97.8 I & 0 Intake and Output 06/27/21 07:00 Intake Total 300 ml Balance 300 ml Intake Oral 300 ml PHYSICAL EXAM Physical Exam GEN.: No apparent distress.Sitting up in chair HEENT: OM moist NECK: Supple. LUNGS: Clear to auscultation, non labored HEART: RRR, S1, S2 present. ABDOMEN: Soft, nontender. Positive bowel sounds. EXTREMITIES: Left extremity fistula ; No LE edema NEUROLOGIC: grossly normal SKIN: No rash No CVA or SP tenderness, No Carbajal DIAGNOSIS/ASSESSMENT Assessment & Plan ESRD 2/ 2 DM and HTN. On HD TTS , missed Saturday . she refused dialysis yesterday Dialysis today , discussed treatment plan with Wil Recent Hx of hematemesis / Dieulafoy's lesions, s/p post-clipping. Anemia: defer to GI Hx of Fall at home -S/P ORIF left distal femur fracture on 04/06 Hx of frequent c/o dark coffee ground emesis and dark black stool with clots. s/p Endotherapy 04/10/21 H/o recurrent UGI bleeding, refractory ulcer - endotherapy 01/12/20 (has had 7 EGDs since 2015), past GDA embolization by and surgical evals (poor surgical candidate) S/P EGD on 10/11 Chrionic Leukopenia, thrombocytopenia, macrocytosis - bone marrow biopsy was recommended per heme/onc in the past. WBC lower compared to her previous admissions. Defer to primary Hx of Nonobstructing calculi in the right kidney with no hydronephrosis or obstructive uropathy seen. H/o pancreatitis, alcoholic GERD, cirrhosis, Hep C, h/o C Diff, h/o pancreatitis COMMENT/RELEVANT DATA Meds Current Medications Medications (Trade) Dose Ordered Sig/Kimberly Start Time Stop Time Status Last Admin Dose Admin Dextrose (Dextrose 50%-Water Syringe) 12.5 gm PRN Q15MIN PRN 06/25/21 17:00 Famotidine (Pepcid Vial) 20 mg 1X ONCE 06/25/21 14:15 06/25/21 14:24 DC 06/25/21 15:04 20 MG Fentanyl Citrate (Fentanyl 2ml Vial) 50 mcg Q2HR PRN 06/25/21 17:00 06/26/21 16:59 DC 06/25/21 19:22 50 MCG Hydralazine HCl (Apresoline Inj) 10 mg 1X ONCE 06/25/21 16:00 06/25/21 16:03 DC 06/25/21 17:19 10 MG Insulin Human Lispro (HumaLOG) 0-5 UNITS TIDWMEALS 06/25/21 17:00 06/26/21 12:12 2 UNITS Morphine Sulfate (Morphine Sulfate) 4 mg PRN Q2HR PRN 06/25/21 20:15 06/27/21 09:09 4 MG Ondansetron HCl (Zofran) 4 mg PRN Q8HRS PRN 06/25/21 17:00 06/26/21 16:59 DC Pantoprazole Sodium (Protonix) 40 mg BIDAC 06/26/21 16:30 06/27/21 08:15 40 MG Piperacillin Sod/ Tazobactam Sod (Zosyn Per Pharmacy) 1 each PRN DAILY PRN 06/25/21 19:00 Piperacillin Sod/ Tazobactam Sod 2.25 gm/Sodium Chloride 50 ml @ 100 mls/hr Q6HRS 06/25/21 19:00 06/27/21 06:06 100 MLS/HR Prochlorperazine Edisylate (Compazine) 10 mg PRN Q6HRS PRN 06/25/21 20:15 06/25/21 20:44 10 MG Lab Laboratory Tests Test 06/26/21 11:40 06/26/21 16:43 06/26/21 19:35 06/27/21 07:15 Glucose (Fingerstick) 163 mg/dL (70-99) 113 mg/dL (70-99) 130 mg/dL (70-99) White Blood Count 3.8 x10^3/uL (4.0-11.0) Red Blood Count 2.33 x10^6/uL (3.50-5.40) Hemoglobin 7.7 g/dL (12.0-15.5) Hematocrit 23.6 % (36.0-47.0) Mean Corpuscular Volume 101 fL (79-100) Mean Corpuscular Hemoglobin 33 pg (25-35) Mean Corpuscular Hemoglobin Concent 33 g/dL (31-37) Red Cell Distribution Width 23.0 % (11.5-14.5) Platelet Count 131 x10^3/uL (140-400) Sodium Level 138 mmol/L (136-145) Potassium Level 4.8 mmol/L (3.5-5.1) Chloride Level 99 mmol/L (98-107) Carbon Dioxide Level 28 mmol/L (21-32) Anion Gap 11 (6-14) Blood Urea Nitrogen 49 mg/dL (7-20) Creatinine 7.1 mg/dL (0.6-1.0) Estimated GFR (Cockcroft-Gault) 7.0 Glucose Level 94 mg/dL (70-99) Calcium Level 8.7 mg/dL (8.5-10.1) Test 06/27/21 07:55 Glucose (Fingerstick) 92 mg/dL (70-99) Results All relevant outside records, renal labs, imaging studies, telemetry/EKG's were reviewed. Justicifation of Admission Dx: Justifications for Admission: Justification of Admission Dx: N/A Acute Renal Failure: Serum Cr > 4mg/dL Chronic Renal Failure: Hemodynamic Instability Sepsis: Infection GINO TAN MD Jun 27, 2021 09:40
--- NOTE | 2021-06-27 10:41 | PDOC ---
Date of Service: DATE: 06/27/21 TIME: 10:38 Subjective: Subjective: Some upper abdominal pain. No n/v. Breakfast didn't look good. Waiting on dialysis. No bleeding. Thinks she might need to have a bowel movement and that normally happens after dialysis. Objective: Vital Signs: Vital Signs Date Time Temp Pulse Resp B/P (MAP) Pulse Ox O2 Delivery O2 Flow Rate FiO2 06/27/21 08:00 Room Air 06/27/21 07:00 97.8 77 18 140/66 (90) 96 97.8 Labs: Laboratory Tests Test 06/26/21 11:40 06/26/21 16:43 06/26/21 19:35 06/27/21 07:55 Glucose (Fingerstick) 163 mg/dL (70-99) 113 mg/dL (70-99) 130 mg/dL (70-99) 92 mg/dL (70-99) PE: GEN: NAD LUNGS: CTAB HEART: RRR ABD: NABS, maybe some distention, epigastric tenderness (mild) NEURO/PSYCH: A & O 3 A/P: Abd pain; h/o , GERD, pancreatitis HTN, ESRD on HD Chronic anemia - Hgb improved w/ transfusion COVID negative -- Continue PPI, observe. Justicifation of Admission Dx: Justifications for Admission: Justification of Admission Dx: N/A Acute Renal Failure: Serum Cr > 4mg/dL Chronic Renal Failure: Hemodynamic Instability Sepsis: Infection IRIS SZYMANSKI Jun 27, 2021 10:41
[2021-06-27 11:00] VITALS: BP 94/64
--- NOTE | 2021-06-27 11:23 | PDOC3 ---
Discharge Summary Date of Admission: Jun 25, 2021 Date of Discharge: Jun 27, 2021 Follow-Up: 1-2 days Admitting Diagnosis comment: HISTORY OF PRESENT ILLNESS: pleasant 66-year-old female well known to our service. She gets admitted about once a month for various issues related usually to her end-stage renal disease. At this time interestingly, she has more nausea, vomiting, diarrhea, and GI symptoms. She also was noted to be anemic with a hemoglobin of 6.7. We are going to admit the patient, get her dialyzed, get her transfused. I am also going to consult GI regarding her nausea, vomiting, and diarrhea. PAST MEDICAL HISTORY: Diabetes, GERD, GI bleed, hypertension, kidney stones, pancreatitis, pneumonia, peptic ulcer disease, renal failure. She is on dialysis. C. diff, ulcer, cirrhosis, chronic pain, cholecystectomy, hysterectomy, tonsillectomy, fistula placement. ALLERGIES: None. FAMILY HISTORY: Diabetes and end-stage renal disease. SOCIAL HISTORY: She does not drink, smoke or take drugs. MEDICATIONS: Reviewed, please refer to the MRAD. COMPLICATIONS NONE CONSULTS GI, NEPHROLOGY DISCHARGE DX D/C CONDITION GOOD TRANSFUSED 1 UNIT PRBC'S D/C MEDS SEE MAR Chief Complaint IMPRESSION Nausea, vomiting, diarrhea RESOLVED abnormal CAT scan suspicious for pancreatitis or duodenitis IE, Mild fat stranding identified about the pancreas and about the duodenum could be due to pancreatitis or duodenitis end-stage renal disease severe anemia with a hemoglobin of 6.7. PLAN admitted. consult GI, consult Nephrology. Transfuse on dialysis. Home meds, deep venous thrombosis prophylaxis. Full code. Trend labs. P.r.n. fentanyl, p.r.n. IV Zofran, IV Pepcid. d/w RN 06-27 refused dialysis yesterday Dialysis today , discussed treatment plan RN D/C PLANNING 36 MIN History of Present Illness History of Present Illness CHIEF COMPLAINT: Nausea, vomiting, and diarrhea. HISTORY OF PRESENT ILLNESS: The patient is a pleasant 66-year-old female well known to our service. She gets admitted about once a month for various issues related usually to her end-stage renal disease. At this time interestingly, she has more nausea, vomiting, diarrhea, and GI symptoms. She also was noted to be anemic with a hemoglobin of 6.7. I discussed the case with ER physician. We are going to admit the patient, get her dialyzed, get her transfused. I am also going to consult GI regarding her nausea, vomiting, and diarrhea. PAST MEDICAL HISTORY: Diabetes, GERD, GI bleed, hypertension, kidney stones, pancreatitis, pneumonia, peptic ulcer disease, renal failure. She is on dialysis. C. diff, ulcer, cirrhosis, chronic pain, cholecystectomy, hysterectomy, tonsillectomy, fistula placement. ALLERGIES: None. FAMILY HISTORY: Diabetes and end-stage renal disease. SOCIAL HISTORY: She does not drink, smoke or take drugs. MEDICATIONS: Reviewed, please refer to the MRAD. REVIEW OF SYSTEMS: GENERAL: No history of weight change, weakness or fevers. SKIN: No bruising, hair changes or rashes. EYES: No blurred, double or loss of vision. NOSE AND THROAT: No history of nosebleeds, hoarseness or sore throat. HEART: No history of palpitations, chest pain or shortness of breath on exertion. LUNGS: Denies cough, hemoptysis, wheezing or shortness of breath. GASTROINTESTINAL: She complains of nausea, vomiting, or diarrhea. GENITOURINARY: No history of frequency, urgency, hesitancy or nocturia. NEUROLOGIC: Denies history of numbness, tingling, tremor or weakness. PSYCHIATRIC: No history of panic, anxiety or depression. ENDOCRINE: No history of heat or cold intolerance, polyuria or polydipsia. EXTREMITIES: Denies muscle weakness, joint pain, pain on walking or stiffness. 06-27 refused dialysis yesterday Dialysis today , discussed treatment plan HOME AFTER DIALYSIS D/W RN D/C PLANNING 34 MIN Vitals Vitals Vital Signs Date Time Temp Pulse Resp B/P (MAP) Pulse Ox O2 Delivery O2 Flow Rate FiO2 06/27/21 07:00 97.8 77 18 140/66 (90) 96 Room Air 97.8 Physical Exam Physical Exam GENERAL: No apparent distress. Alert and oriented. HEENT: Normal cephalic atraumatic, external auditory canals are patent EYES: Extraocular muscles are intact, pupils are equally round and reactive to light and accommodation MUSCULOSKELETAL: Well developed, well nourished, good range of motion. ENDOCRINE: No thyromegaly was palpated. LYMPHATICS: No cervical chain or axillary nodes were noted. HEMATOPOIETIC: No bruising. NECK: Supple, no JVD, no thyromegaly was noted. LUNGS: Clear to auscultation in all lung chaudhry without rhonchi or wheezing. HEART: RRR, S1, S2 present. Peripheral pulses intact, no obvious murmurs were noted. ABDOMEN: Soft, nontender. Positive bowel sounds no organomegaly, normal bowel sounds. EXTREMITIES: Without any cyanosis, clubbing, or edema. Pedal pulses intact, Homans sign is negative. NEUROLOGIC: Normal speech, normal tone. A and O x3, moves all extremities, no obvious focal deficits. PSYCHIATRIC: Normal affect, normal mood. Stable. SKIN: No ulcerations or rashes, good skin turgor, no jaundice. VASCULAR: Good capillary refill, neurovascular bundle appears to be intact. General: Alert, Oriented X3, Cooperative, No acute distress Heart: Regular rate, Normal S1 Lungs: Clear Extremities: No clubbing, No cyanosis Skin: No rashes FINAL DIAGNOSIS Problems Medical Problems: (1) Abdominal pain Status: Acute (2) ESRD (end stage renal disease) on dialysis Status: Chronic (3) Nausea & vomiting Status: Acute (4) Severe anemia Status: Acute Brief Hospital Course Ms. Fernandez is a 66 old [sex] who presented with [ SEVERE ANEMIA, MISSED DIALYSIS] CONDITION AT DISCHARGE: Improved Discharge Medications Current Medications Ondansetron HCl (Zofran) 4 mg 1X ONCE IVP Last administered on 06/25/21at 15:04; Start 06/25/21 at 14:15; Stop 06/25/21 at 14:24; Status DC Famotidine (Pepcid Vial) 20 mg 1X ONCE IVP Last administered on 06/25/21at 15:04; Start 06/25/21 at 14:15; Stop 06/25/21 at 14:24; Status DC Fentanyl Citrate (Fentanyl 2ml Vial) 50 mcg 1X ONCE IV Last administered on 06/25/21at 15:04; Start 06/25/21 at 14:30; Stop 06/25/21 at 14:31; Status DC Hydralazine HCl (Apresoline Inj) 10 mg 1X ONCE IVP Last administered on 06/25/21at 17:19; Start 06/25/21 at 16:00; Stop 06/25/21 at 16:03; Status DC Ondansetron HCl (Zofran) 4 mg 1X ONCE IVP Last administered on 06/25/21at 17:19; Start 06/25/21 at 16:45; Stop 06/25/21 at 16:47; Status DC Fentanyl Citrate (Fentanyl 2ml Vial) 50 mcg 1X ONCE IVP Last administered on 06/25/21at 17:18; Start 06/25/21 at 16:45; Stop 06/25/21 at 16:47; Status DC Ondansetron HCl (Zofran) 4 mg PRN Q8HRS PRN IVP NAUSEA/VOMITING; Start 06/25/21 at 17:00; Stop 06/26/21 at 16:59; Status DC Fentanyl Citrate (Fentanyl 2ml Vial) 50 mcg Q2HR PRN IVP PAIN Last administered on 06/25/21at 19:22; Start 06/25/21 at 17:00; Stop 06/26/21 at 16:59; Status DC Insulin Human Lispro (HumaLOG) 0-5 UNITS TIDWMEALS SQ Last administered on 06/26/21at 12:12; Start 06/25/21 at 17:00 Dextrose (Dextrose 50%-Water Syringe) 12.5 gm PRN Q15MIN PRN IV SEE COMMENTS; Start 06/25/21 at 17:00 Piperacillin Sod/ Tazobactam Sod (Zosyn Per Pharmacy) 1 each PRN DAILY PRN MC SEE COMMENTS; Start 06/25/21 at 19:00 Piperacillin Sod/ Tazobactam Sod 2.25 gm/Sodium Chloride 50 ml @ 100 mls/hr Q6HRS IV Last administered on 06/27/21at 06:06; Start 06/25/21 at 19:00 Morphine Sulfate (Morphine Sulfate) 4 mg PRN Q2HR PRN IV MODERATE TO SEVERE PAIN Last administered on 06/27/21at 09:09; Start 06/25/21 at 20:15 Prochlorperazine Edisylate (Compazine) 10 mg PRN Q6HRS PRN IV NAUSEA/VOMITING Last administered on 06/25/21at 20:44; Start 06/25/21 at 20:15 Pantoprazole Sodium (Protonix) 40 mg BIDAC PO Last administered on 06/27/21at 08:15; Start 06/26/21 at 16:30 Active Scripts Active Medrol (Methylprednisolone) 4 Mg Tab.ds.pk 1 Pkg PO UD Omeprazole 40 Mg Capsule.dr 1 Cap PO BID Reported Sevelamer HCl 800 Mg Tablet 800 Mg PO BID MDD Oxycodone-Acetaminophn 7.5-325 (Oxycodone HCl/Acetaminophen) 1 Each Tablet 1 Tab PO QID PRN Carvedilol 25 Mg Tablet 25 Mg PO BIDWMEALS Vital Signs Vital Signs Date Time Temp Pulse Resp B/P (MAP) Pulse Ox O2 Delivery O2 Flow Rate FiO2 06/27/21 08:00 Room Air 06/27/21 07:00 97.8 77 18 140/66 (90) 96 97.8 Labs Laboratory Tests Test 06/25/21 14:45 06/25/21 17:00 06/25/21 20:43 06/26/21 07:07 White Blood Count 4.1 x10^3/uL (4.0-11.0) Red Blood Count 2.00 x10^6/uL (3.50-5.40) Hemoglobin 6.7 g/dL (12.0-15.5) Hematocrit 20.5 % (36.0-47.0) Mean Corpuscular Volume 102 fL (79-100) Mean Corpuscular Hemoglobin 34 pg (25-35) Mean Corpuscular Hemoglobin Concent 33 g/dL (31-37) Red Cell Distribution Width 23.9 % (11.5-14.5) Platelet Count 156 x10^3/uL (140-400) Neutrophils (%) (Auto) 79 % (31-73) Lymphocytes (%) (Auto) 11 % (24-48) Monocytes (%) (Auto) 10 % (0-9) Eosinophils (%) (Auto) 0 % (0-3) Basophils (%) (Auto) 1 % (0-3) Neutrophils # (Auto) 3.2 x10^3/uL (1.8-7.7) Lymphocytes # (Auto) 0.4 x10^3/uL (1.0-4.8) Monocytes # (Auto) 0.4 x10^3/uL (0.0-1.1) Eosinophils # (Auto) 0.0 x10^3/uL (0.0-0.7) Basophils # (Auto) 0.0 x10^3/uL (0.0-0.2) Platelet Estimate Adequate (ADEQUATE) Polychromasia Slight Anisocytosis Mod Macrocytosis Slight Sodium Level 136 mmol/L (136-145) Potassium Level 4.4 mmol/L (3.5-5.1) Chloride Level 98 mmol/L (98-107) Carbon Dioxide Level 33 mmol/L (21-32) Anion Gap 5 (6-14) Blood Urea Nitrogen 33 mg/dL (7-20) Creatinine 6.0 mg/dL (0.6-1.0) Estimated GFR (Cockcroft-Gault) 8.5 BUN/Creatinine Ratio 6 (6-20) Glucose Level 131 mg/dL (70-99) Calcium Level 9.4 mg/dL (8.5-10.1) Magnesium Level 2.1 mg/dL (1.8-2.4) Total Bilirubin 0.5 mg/dL (0.2-1.0) Aspartate Amino Transf (AST/SGOT) 27 U/L (15-37) Alanine Aminotransferase (ALT/SGPT) 17 U/L (14-59) Alkaline Phosphatase 152 U/L (46-116) Creatine Kinase 47 U/L (26-192) Creatine Kinase MB (Mass) 2.3 ng/mL (0.0-3.6) Creatine Kinase MB Relative Index % (0-4) Troponin I Quantitative < 0.017 ng/mL (0.000-0.055) Total Protein 8.3 g/dL (6.4-8.2) Albumin 3.3 g/dL (3.4-5.0) Albumin/Globulin Ratio 0.7 (1.0-1.7) Lipase 65 U/L (73-393) SARS-CoV-2 RNA (AIRAM) Negative (Negative) SARS-CoV-2 Antigen (Rapid) Negative (NEGATIVE) Glucose (Fingerstick) 137 mg/dL (70-99) 118 mg/dL (70-99) Test 06/26/21 11:40 06/26/21 16:43 06/26/21 19:35 06/27/21 07:15 Glucose (Fingerstick) 163 mg/dL (70-99) 113 mg/dL (70-99) 130 mg/dL (70-99) White Blood Count 3.8 x10^3/uL (4.0-11.0) Red Blood Count 2.33 x10^6/uL (3.50-5.40) Hemoglobin 7.7 g/dL (12.0-15.5) Hematocrit 23.6 % (36.0-47.0) Mean Corpuscular Volume 101 fL (79-100) Mean Corpuscular Hemoglobin 33 pg (25-35) Mean Corpuscular Hemoglobin Concent 33 g/dL (31-37) Red Cell Distribution Width 23.0 % (11.5-14.5) Platelet Count 131 x10^3/uL (140-400) Sodium Level 138 mmol/L (136-145) Potassium Level 4.8 mmol/L (3.5-5.1) Chloride Level 99 mmol/L (98-107) Carbon Dioxide Level 28 mmol/L (21-32) Anion Gap 11 (6-14) Blood Urea Nitrogen 49 mg/dL (7-20) Creatinine 7.1 mg/dL (0.6-1.0) Estimated GFR (Cockcroft-Gault) 7.0 Glucose Level 94 mg/dL (70-99) Calcium Level 8.7 mg/dL (8.5-10.1) Test 06/27/21 07:55 Glucose (Fingerstick) 92 mg/dL (70-99) Laboratory Tests Test 06/26/21 11:40 06/26/21 16:43 06/26/21 19:35 06/27/21 07:15 Glucose (Fingerstick) 163 mg/dL (70-99) 113 mg/dL (70-99) 130 mg/dL (70-99) White Blood Count 3.8 x10^3/uL (4.0-11.0) Red Blood Count 2.33 x10^6/uL (3.50-5.40) Hemoglobin 7.7 g/dL (12.0-15.5) Hematocrit 23.6 % (36.0-47.0) Mean Corpuscular Volume 101 fL (79-100) Mean Corpuscular Hemoglobin 33 pg (25-35) Mean Corpuscular Hemoglobin Concent 33 g/dL (31-37) Red Cell Distribution Width 23.0 % (11.5-14.5) Platelet Count 131 x10^3/uL (140-400) Sodium Level 138 mmol/L (136-145) Potassium Level 4.8 mmol/L (3.5-5.1) Chloride Level 99 mmol/L (98-107) Carbon Dioxide Level 28 mmol/L (21-32) Anion Gap 11 (6-14) Blood Urea Nitrogen 49 mg/dL (7-20) Creatinine 7.1 mg/dL (0.6-1.0) Estimated GFR (Cockcroft-Gault) 7.0 Glucose Level 94 mg/dL (70-99) Calcium Level 8.7 mg/dL (8.5-10.1) Test 06/27/21 07:55 Glucose (Fingerstick) 92 mg/dL (70-99) Allergies Allergies Coded Allergies Type Severity Reaction Last Updated Verified No Known Drug Allergies 06/19/21 No Disposition/Orders: D/C to Home Justicifation of Admission Dx: Justifications for Admission: Justification of Admission Dx: N/A Acute Renal Failure: Serum Cr > 4mg/dL Chronic Renal Failure: Hemodynamic Instability Sepsis: Infection ASHIA MOSS MD Jun 27, 2021 11:23
[2021-06-27] MEDS ORDERED: AMOX1TAB58 PO (11:27)
[2021-06-27] MEDS ORDERED: INSU100V35 SQ (11:27)
--- NOTE | 2021-06-27 11:28 | DISCH ---
DISCHARGE INSTRUCTIONS Condition on Discharge Condition on Discharge: Stable Activity After Discharge Activity Instructions for Disc: No restrictions, Resume previous activity, Activity as tolerated Lifting Instructions after Dis: No heavy lifting, No pulling or pushing, Do not lift >10 pounds Exercise Instruction after Dis: Exercise per therapy, Progress as tolerated Driving Instructions after Dis: Do not drive, Other, see below Weight Bearing Status after Di: No restrictions, Full weight bearing, As tolerated Diet after Discharge Diet after Discharge: Renal Dialysis, GI Soft Diet Texture: Regular Liquid Texture: Thin Liquid Swallowing Supervision: None needed Wound Incision Care Wound/Incision Care: No wound care needed Checks after Discharge Checks after discharge: Check blood press - daily, Check blood sugar, ac/hs, Weigh Yourself Daily Contacting the DR. after DC Call your doctor for: If your condition worsens Follow-Up Follow up with: CONTINUE DIALYSIS DIRECTED Treatment/Equipment after DC Adaptive Equipment Issued: None ASHIA MOSS MD Jun 27, 2021 11:28
--- NOTE | 2021-06-27 15:08 | NUR ---
SW following. Discussed with RN, discharge order for home with self care.
[2021-06-27] MEDS ORDERED: ASA/APAP/CAFFEINE 250/250/65MG TABLET. PO PRN (16:00)
[2021-06-27] MEDS ORDERED: DIALYSIS PATIENT. MC PRN (16:45)
--- NOTE | 2021-06-27 18:55 | NUR ---
Discharge Note: CESAR AGEE [facility] Discharge instructions and discharge home medications reviewed with Patient and a copy given. All questions have been answered and understanding verbalized. The following instructions and handouts were given: f/u with PCP within two weeks. Continue dialysis as scheduled Discontinued lines and drains: Peripheral IV intact. Patient discharged to Home or Self Care with Family Member via Wheelchair.
== END 2021-06-27 18:55 | disposition home or self-care (01) | DRG 811 ==
LOC: ER 12:59 → ED HOLD 15:58 → 5 SOUTH 17:10
PROVIDERS: ADMIT Internal Medicine; ATTEND Internal Medicine
PROC: 30233N1 Transfusion of Nonautologous Red Blood Cells into Peripheral Vein, Percutaneous Approach (ICD-10-PCS; principal; 2021-06-25)
PROC: 5A1D70Z Performance of Urinary Filtration, Intermittent, Less than 6 Hours Per Day (ICD-10-PCS; 2021-06-27)
DX: D64.9 Anemia, unspecified (principal); N18.6 End stage renal disease; N17.0 Acute kidney failure with tubular necrosis; I12.0 Hypertensive chronic kidney disease with stage 5 chronic kidney disease or end stage renal disease; E11.22 Type 2 diabetes mellitus with diabetic chronic kidney disease; E21.3 Hyperparathyroidism, unspecified; E78.5 Hyperlipidemia, unspecified; K74.60 Unspecified cirrhosis of liver; G89.29 Other chronic pain; K21.9 Gastro-esophageal reflux disease without esophagitis; M19.90 Unspecified osteoarthritis, unspecified site; D69.6 Thrombocytopenia, unspecified; D75.89 Other specified diseases of blood and blood-forming organs; M06.9 Rheumatoid arthritis, unspecified; Z20.822 Contact with and (suspected) exposure to COVID-19; Z82.49 Family history of ischemic heart disease and other diseases of the circulatory system; Z83.3 Family history of diabetes mellitus; Z87.442 Personal history of urinary calculi; Z90.711 Acquired absence of uterus with remaining cervical stump; Z91.15 Patient's noncompliance with renal dialysis; Z99.2 Dependence on renal dialysis; Z87.01 Personal history of pneumonia (recurrent); Z90.49 Acquired absence of other specified parts of digestive tract
CPT/HCPCS: 36415; 36430; 74176; 80048; 80053; 82553; 82962; 83690; 83735; 84484; 85025; 85027; 86850; 86900; 86901; 86920; 87426; 93005; 96374; 96375; 96376; J0360; J0780; J2270; J2405; J2543; J3010; J3490; P9016; U0003; U0005; 99285-25; G0378

== ENCOUNTER 2021-07-30 21:14 | Emergency (ER) | payer OTHER, MEDICAID ==
[~2021-07-30] VITALS: Ht 157.5 cm; Wt 85.0 kg
[~2021-07-30 21:14] MED LIST changes: +AMOX1TAB58 PO; +INSU100V35 SQ
--- NOTE | 2021-07-30 21:34 | PHYS DOC ---
Past Medical History Past Medical History: Diabetes-Type II, GERD, GI Bleed, Hypertension, Kidney Stone, Pancreatitis, Pneumonia, P.U.D., Renal Failure, Other Additional Past Medical Histor: Ulcers,C-DIFF,CIRRHOSIS,CHRONIC PAIN Past Surgical History: Cholecystectomy, Hysterectomy, Tonsillectomy, Other Additional Past Surgical Histo: LEFT ARM fistula placement Smoking Status: Never Smoker Alcohol Use: None Drug Use: None General Adult EDM: Chief Complaint: CHEST PAIN HPI: HPI: Patient is a 66 year old female with end-stage renal failure, history diabetic, presented to ER by EMS due to left-sided chest pain. Patient stated that she had her dialysis yesterday. On Saturday she was moving from the wheelchair to the toilet when she tripped and fell down and hit her left rib cage on the toilet seat. Patient is complaining of left-sided rib pain since. Patient denies any head or neck injury. Patient has history of hypertension, she took her blood pressure medication in the morning but did not take her medication at night yet. Review of Systems: Review of Systems: Constitutional: Denies fever or chills. [] Eyes: Denies change in visual acuity. [] HENT: Denies nasal congestion or sore throat. [] Respiratory: Denies cough or shortness of breath. [] Cardiovascular: Positive for left-sided chest pain, no edema GI: Denies abdominal pain, nausea, vomiting, bloody stools or diarrhea. [] : Denies dysuria. [] Musculoskeletal: Denies back pain or joint pain. [] Integument: Denies rash. [] Neurologic: Denies headache, focal weakness or sensory changes. [] Endocrine: Denies polyuria or polydipsia. [] Lymphatic: Denies swollen glands. [] Psychiatric: Denies depression or anxiety. [] Heart Score: C/O Chest Pain: N/A Risk Factors: Risk Factors: DM, Current or recent (<one month) smoker, HTN, HLP, family history of CAD, obesity. Risk Scores: Score 0 - 3: 2.5% MACE over next 6 weeks - Discharge Home Score 4 - 6: 20.3% MACE over next 6 weeks - Admit for Clinical Observation Score 7 - 10: 72.7% MACE over next 6 weeks - Early Invasive Strategies Allergies: Allergies: Allergies Coded Allergies Type Severity Reaction Last Updated Verified No Known Drug Allergies 06/19/21 No Physical Exam: PE: Constitutional: Well developed, well nourished, no acute distress, non-toxic appearance. [] HENT: Normocephalic, atraumatic, bilateral external ears normal, oropharynx moist, no oral exudates, nose normal. [] Eyes: PERRLA, EOMI, conjunctiva normal, no discharge. [] Neck: Normal range of motion, no tenderness, supple, no stridor. [] Cardiovascular:Heart rate regular rhythm, no murmur [] Lungs & Thorax: Bilateral breath sounds clear to auscultation, left lateral posterior chest wall with skin contusion and tender to palpation, there is no crepitus or deformity noted. Abdomen: Bowel sounds normal, soft, no tenderness, no masses, no pulsatile masses. [] Skin: Warm, dry, no erythema, no rash. [] Back: No tenderness, no CVA tenderness. [] Extremities: No tenderness, no cyanosis, no clubbing, ROM intact, no edema. AV fistula on the left arm with strong bruit. Neurologic: Alert and oriented X 3, normal motor function, normal sensory function, no focal deficits noted. [] Psychologic: Affect normal, judgement normal, mood normal. [] Current Patient Data: Labs: Laboratory Tests Test 07/30/21 21:20 07/30/21 21:35 White Blood Count 2.8 x10^3/uL Red Blood Count 2.48 x10^6/uL Hemoglobin 8.0 g/dL Hematocrit 24.6 % Mean Corpuscular Volume 99 fL Mean Corpuscular Hemoglobin 33 pg Mean Corpuscular Hemoglobin Concent 33 g/dL Red Cell Distribution Width 21.0 % Platelet Count 146 x10^3/uL Neutrophils (%) (Auto) 62 % Lymphocytes (%) (Auto) 20 % Monocytes (%) (Auto) 16 % Eosinophils (%) (Auto) 2 % Basophils (%) (Auto) 1 % Neutrophils # (Auto) 1.8 x10^3/uL Lymphocytes # (Auto) 0.6 x10^3/uL Monocytes # (Auto) 0.4 x10^3/uL Eosinophils # (Auto) 0.0 x10^3/uL Basophils # (Auto) 0.0 x10^3/uL Platelet Estimate Adequate Giant Platelets Occ Polychromasia Slight Basophilic Stippling Present Anisocytosis Mod Sodium Level 139 mmol/L Potassium Level 4.4 mmol/L Chloride Level 99 mmol/L Carbon Dioxide Level 33 mmol/L Anion Gap 7 Blood Urea Nitrogen 38 mg/dL Creatinine 5.1 mg/dL Estimated GFR (Cockcroft-Gault) 10.2 BUN/Creatinine Ratio 7 Glucose Level 150 mg/dL Calcium Level 9.2 mg/dL Magnesium Level 2.0 mg/dL Total Bilirubin 1.2 mg/dL Aspartate Amino Transf (AST/SGOT) 31 U/L Alanine Aminotransferase (ALT/SGPT) 16 U/L Alkaline Phosphatase 185 U/L Troponin I Quantitative < 0.017 ng/mL [id number] Natriuretic Peptide > 07227 pg/mL Total Protein 8.0 g/dL Albumin 3.3 g/dL Albumin/Globulin Ratio 0.7 Lipase 185 U/L Influenza Type A Antigen Negative Influenza Type B Antigen Negative SARS-CoV-2 Antigen (Rapid) Negative Current Medications Medications (Trade) Dose Ordered Sig/Kimberly Route PRN Reason Start Time Stop Time Status Last Admin Dose Admin Morphine Sulfate (Morphine Sulfate) 4 mg 1X ONCE IVP 07/30/21 21:45 07/30/21 21:46 DC 07/30/21 21:45 Hydralazine HCl (Apresoline Inj) 10 mg 1X ONCE IVP 07/30/21 21:45 07/30/21 21:46 DC 07/30/21 21:46 Morphine Sulfate (Morphine Sulfate) 4 mg STK-MED ONCE .ROUTE 07/30/21 21:44 07/30/21 21:44 DC Ondansetron HCl (Zofran) 4 mg 1X ONCE IVP 07/30/21 22:00 07/30/21 22:01 DC 07/30/21 21:50 EKG: EKG: EKG was done at 2117, heart rate 91 bpm, sinus rhythm, no ST segment elevation, normal axis Radiology/Procedures: Radiology/Procedures: [][facility] [address] [place] [address] IMAGING REPORT Signed PATIENT: CESAR AGEE AACCOUNT: [id number] : 1955 LOCATION: ER AGE: 66 SEX: F EXAM STATUS: REG ER ORD. PHYSICIAN: CORY HARPER DO REASON: fell ,left side ribs pain PROCEDURE: RIBS LEFT Single view chest and left-sided rib study dated 07/31/2021 12:47 AM: COMPARISON: 05/25/2021 Clinical Indication: Chest pain. Findings: Single upright portable exam of the chest was performed. Heart and mediastinal contours are stable. There are some prominent perihilar linear markings, unchanged. No consolidation or pleural effusion. Thorax. Dedicated views of left-sided ribs show no evidence of displaced left rib fracture. No acute bony abnormality. There are erosive changes at the proximal left humerus, stable. IMPRESSION: 1. No acute radiographic abnormality. Stable findings compared to 05/25/2021. 2. No evidence of displaced left rib fracture. Electronically signed by: Branden Senior MD (07/31/2021 12:49 AM) [facility] [place] DICTATED and SIGNED BY: BRANDEN SENIOR MD DATE: 07/31/21 [id number] 0 Course & Med Decision Making: Course & Med Decision Making Pertinent Labs and Imaging studies reviewed. (See chart for details) Patient is a 66-year-old female who was brought here by EMS from home due to le ft-sided rib pain after she fell 2 days ago. X-ray did not show any fracture of her ribs. Her blood pressure was elevated. Patient did not take her blood pressure medication tonight. Patient was given medication in ER for pain control and for blood pressure patient feels much better. Lab work did not show any acute problem. Patient will be discharged back home. Rishi Disclaimer: Rishi Disclaimer: This electronic medical record was generated, in whole or in part, using a voice recognition dictation system. Departure Departure Impression: Primary Impression: Chest wall contusion Additional Impressions: Chest wall pain Hypertension Disposition: HOME / SELF CARE / HOMELESS Condition: STABLE Referrals: Ashley LIAO MD (PCP) Follow up with your doctor this week. Patient Instructions: Chest Contusion, Chest Wall Pain, Hypertension Additional Instructions: Thank you for visiting our Emergency Department. We appreciate you trusting us with your care. If any additional problems come up don't hesitate to return to visit us. Please follow up with your primary care provider so they can plan additional care if needed and know about the problem that you had. If symptoms worsen come back to the Emergency Department. Any concerning symptoms that start such as chest pain, shortness of air, weakness or numbness on one side of the body, running high fevers or any other concerning symptoms return to the ER. CORY HARPER DO Jul 30, 2021 21:34
[2021-07-30 21:35] LABS: BASO % 1 % (0-3); EOS % 2 % (0-3); HEMATOCRIT 24.6 % (36.0-47.0); LYMPH # 0.6 x10^3/uL (1.0-4.8); LYMPH % 20 % (24-48); MEAN CORPUSCULAR HEMOGLOBIN 33 pg (25-35); MEAN CORPUSCULAR HGB CONC 33 g/dL (31-37); MEAN CORPUSCULAR VOLUME 99 fL (79-100); MONO # 0.4 x10^3/uL (0.0-1.1); MONO % 16 % (0-9); NEUT # 1.8 x10^3/uL (1.8-7.7); NEUT % 62 % (31-73); PLATELET COUNT 146 x10^3/uL (140-400); RED BLOOD COUNT 2.48 x10^6/uL (3.50-5.40); WHITE BLOOD COUNT 2.8 x10^3/uL (4.0-11.0)
[2021-07-30 21:43] LABS: CALCIUM 9.2 mg/dL (8.5-10.1); CREATININE 5.1 mg/dL (0.6-1.0); GFR 10.2; POTASSIUM 4.4 mmol/L (3.5-5.1)
[2021-07-30] MEDS ORDERED: MORPHINE SULFATE 4 MG/ML INJ. ONE (21:44)
[2021-07-30] MEDS ORDERED: hydrALAZINE 20 MG/ML VIAL. IVP ONE (21:45)
[2021-07-30] MEDS ORDERED: MORPHINE SULFATE 4 MG/ML INJ. IVP ONE (21:45)
[2021-07-30 21:49] LABS: ALBUMIN 3.3 g/dL (3.4-5.0); ALBUMIN/GLOBULIN RATIO 0.7 (1.0-1.7); TOTAL BILIRUBIN 1.2 mg/dL (0.2-1.0)
[2021-07-30] MEDS ORDERED: ONDANSETRON PF 4 MG/2 ML VIAL. IVP ONE (22:00)
[2021-07-30 22:08] LABS: INFLUENZA A PATIENT NEGATIVE (NEGATIVE); INFLUENZA B PATIENT NEGATIVE (NEGATIVE)
[2021-07-30 23:56] LABS: ANISOCYTOSIS MOD; PLT ESTIMATE ADEQUATE (ADEQUATE); POLYCHROMASIA SLIGHT
--- NOTE | 2021-07-31 00:51 | RAD ---
Single view chest and left-sided rib study dated 07/31/2021 12:47 AM: COMPARISON: 05/25/2021 Clinical Indication: Chest pain. Findings: Single upright portable exam of the chest was performed. Heart and mediastinal contours are stable. T here are some prominent perihilar linear markings, unchanged. No consolidation or pleural effusion. T horax. Dedicated views of left-sided ribs show no evidence of displaced left rib fracture. No acute bony abn ormality. There are erosive changes at the proximal left humerus, stable. IMPRESSION: 1. No acute radiographic abnormality. Stable findings compared to 05/25/2021. 2. No evidence of displaced left rib fracture. Electronically signed by: Branden Senior MD (07/31/2021 12:49 AM) AYANA
[2021-07-31 02:10] VITALS: BP 169/74
--- NOTE | 2021-07-31 10:54 | EKG ---
[facility] [address] [place] [address] Test Date: 2021-07-30 Test Time: 21:17:33 Pat Name: CESAR AGEE Department: Room: Gender: F Box Annealer: : 1955 Requested By: CORY HARPER Order Number: [id number] Reading MD: Binu Castro Measurements Intervals Sargent Rate: 91 P: 90 CO: 128 QRS: 68 QRSD: 74 T: 7 QT: 358 QTc: 442 Interpretive Statements SINUS RHYTHM NORMAL ECG Electronically Signed On 08-01-2021 13:43:09 CDT by Binu Castro
--- NOTE | 2021-07-31 15:23 | NUR ---
IP: Attempted to notify patient of negative COVID19 test result. Voicemail message to please return call at the number provided.
--- NOTE | 2021-08-01 11:00 | NUR ---
IP: Patient notified of negative COVID19 test result. Verbalized understanding.
== END 2021-07-31 02:25 | disposition home or self-care (01) ==
LOC: ER 21:14
DX: S20.212A Contusion of left front wall of thorax, initial encounter (principal); Z20.822 Contact with and (suspected) exposure to COVID-19; I10 Essential (primary) hypertension; E11.22 Type 2 diabetes mellitus with diabetic chronic kidney disease; I12.0 Hypertensive chronic kidney disease with stage 5 chronic kidney disease or end stage renal disease; N18.6 End stage renal disease; Z99.2 Dependence on renal dialysis; G89.29 Other chronic pain; K21.9 Gastro-esophageal reflux disease without esophagitis; Z90.49 Acquired absence of other specified parts of digestive tract; Z90.710 Acquired absence of both cervix and uterus; W01.198A Fall on same level from slipping, tripping and stumbling with subsequent striking against other object, initial encounter; Y93.89 Activity, other specified; Y92.89 Other specified places as the place of occurrence of the external cause; Y99.8 Other external cause status
CPT/HCPCS: 36415; 71045; 71100; 80053; 83690; 83735; 83880; 84484; 85025; 87426; 87804; 93005; 96374; 96375; 99285; J0360; J2270; J2405; U0003; U0005

== ENCOUNTER 2021-08-07 19:15 | Inpatient (IN) | payer OTHER, MEDICAID ==
[2021-08-07] VITALS (7 sets, daily range): BP systolic 152–185; BP diastolic 56–81
[~2021-08-07] VITALS: Ht 157.5 cm; Wt 88.3 kg
[~2021-08-07 19:15] MED LIST changes: +FLU VACC QUAD 21-22 (6MOS+) PF 0.5 ML SYRINGE. VAX IM ONE
--- NOTE | 2021-08-07 19:28 | ED.ADGEN ---
Past Medical History Past Medical History: Diabetes-Type II, GERD, GI Bleed, Hypertension, Kidney Stone, Pancreatitis, Pneumonia, P.U.D., Renal Failure, Other Additional Past Medical Histor: Ulcers,C-DIFF,CIRRHOSIS,CHRONIC PAIN Past Surgical History: Cholecystectomy, Hysterectomy, Tonsillectomy, Other Additional Past Surgical Histo: LEFT ARM fistula placement Smoking Status: Never Smoker Alcohol Use: None Drug Use: None General Adult EDM: Chief Complaint: ABDOMINAL PAIN HPI: HPI: Patient is a 66 year old female coming in from home via EMS for abdominal pain and bloody diarrhea. Says the pain started and is periumbilical epigastric since this morning and has continued to get worse, rates her pain as a 10 out of 10 now. Denies any vomiting. Patient has a history of ESRD is on HD , however missed her last dialysis session and has not had dialysis in 4 days. Review of Systems: Review of Systems: All other systems within normal limits except for as noted in the HPI Current Medications: Current Medications Medications (Trade) Dose Ordered Sig/Kimberly Start Time Stop Time Status Last Admin Dose Admin Acetaminophen (Tylenol) 650 mg PRN Q8HRS PRN 08/07/21 20:45 Dextrose (Dextrose 50%-Water Syringe) 12.5 gm PRN Q15MIN PRN 08/07/21 20:45 Fentanyl Citrate (Fentanyl 2ml Vial) 75 mcg 1X ONCE 08/07/21 19:30 08/07/21 19:31 DC 08/07/21 20:23 75 MCG Info (CONTRAST GIVEN -- Rx MONITORING) 1 each PRN DAILY PRN 08/07/21 20:00 08/09/21 19:59 Insulin Human Lispro (HumaLOG) 0-7 UNITS TIDWMEALS 08/08/21 08:00 Iohexol (Omnipaque 300 Mg/ml) 60 ml 1X ONCE 08/07/21 20:00 08/07/21 20:01 DC 08/07/21 20:20 60 ML Oxycodone/ Acetaminophen (Percocet 7.5/ 325) 1 tab PRN QID PRN 08/07/21 20:45 Pantoprazole Sodium (PROTONIX VIAL for IV PUSH) 40 mg 1X ONCE 08/07/21 21:15 08/07/21 21:16 Pantoprazole Sodium (Protonix) 40 mg BIDAC 08/08/21 07:30 Sevelamer Carbonate (Renvela) 800 mg BIDWMEALS 08/08/21 08:00 Vitamin B Complex (Folbic Tablet) 1 tab DAILY 08/08/21 09:00 Allergies: Allergies: Allergies Coded Allergies Type Severity Reaction Last Updated Verified No Known Drug Allergies 06/19/21 No Physical Exam: PE: Constitutional: Well developed, well nourished, no acute distress, non-toxic appearance. [] HENT: Normocephalic, atraumatic, bilateral external ears normal, nose normal. [] Eyes: PERRLA, conjunctiva normal, no discharge. [] Neck: No rigidity, supple, no stridor. [] Cardiovascular: Regular rate and rhythm, brisk cap refill [] Lungs & Thorax: Non labored symmetric respirations, no tachypnea or respiratory distress [] Abdomen: Soft, nondistended, epigastric and periumbilical tenderness palpation. Skin: Warm, dry, no erythema, no rash. [] Back: Unremarkable Extremities: No deformities, range of motion grossly intact, bilateral lower extremity edema [] Neurologic: Alert and oriented X 3, no focal deficits noted. [] Psychologic: Affect normal, judgement normal, mood normal. [] Current Patient Data: Labs: Laboratory Tests Test 08/07/21 19:44 08/07/21 20:00 08/07/21 20:35 Sodium Level 139 mmol/L (136-145) Potassium Level 6.0 mmol/L (3.5-5.1) H Chloride Level 97 mmol/L (98-107) L Carbon Dioxide Level 24 mmol/L (21-32) Anion Gap 18 (6-14) H Blood Urea Nitrogen 80 mg/dL (7-20) H Creatinine 8.5 mg/dL (0.6-1.0) H Estimated GFR (Cockcroft-Gault) 5.7 BUN/Creatinine Ratio 9 (6-20) Glucose Level 104 mg/dL (70-99) H Lactic Acid Level 1.5 mmol/L (0.4-2.0) Calcium Level 8.2 mg/dL (8.5-10.1) L Phosphorus Level 4.6 mg/dL (2.6-4.7) Magnesium Level 2.1 mg/dL (1.8-2.4) Total Bilirubin 0.5 mg/dL (0.2-1.0) Aspartate Amino Transferase (AST) 40 U/L (15-37) H Alanine Aminotransferase (ALT) 23 U/L (14-59) Alkaline Phosphatase 158 U/L (46-116) H Troponin I Quantitative 0.026 ng/mL (0.000-0.055) KS-Qst-M-Type Natriuretic Peptide > 22577 pg/mL (0-124) H Total Protein 7.1 g/dL (6.4-8.2) Albumin 2.9 g/dL (3.4-5.0) L Albumin/Globulin Ratio 0.7 (1.0-1.7) L Lipase 252 U/L (73-393) White Blood Count 4.8 x10^3/uL (4.0-11.0) Red Blood Count 1.69 x10^6/uL (3.50-5.40) L Hemoglobin 5.8 g/dL (12.0-15.5) *L Hematocrit 17.1 % (36.0-47.0) *L Mean Corpuscular Volume 101 fL (79-100) H Mean Corpuscular Hemoglobin 34 pg (25-35) Mean Corpuscular Hemoglobin Concent 34 g/dL (31-37) Red Cell Distribution Width 23.0 % (11.5-14.5) H Platelet Count 171 x10^3/uL (140-400) Neutrophils (%) (Auto) 62 % (31-73) Lymphocytes (%) (Auto) 22 % (24-48) L Monocytes (%) (Auto) 13 % (0-9) H Eosinophils (%) (Auto) 2 % (0-3) Basophils (%) (Auto) 1 % (0-3) Neutrophils # (Auto) 3.0 x10^3/uL (1.8-7.7) Lymphocytes # (Auto) 1.1 x10^3/uL (1.0-4.8) Monocytes # (Auto) 0.6 x10^3/uL (0.0-1.1) Eosinophils # (Auto) 0.1 x10^3/uL (0.0-0.7) Basophils # (Auto) 0.1 x10^3/uL (0.0-0.2) Platelet Estimate Pending Stool Occult Blood Positive (NEG) Laboratory Tests 08/07/21 20:00 Laboratory Tests 08/07/21 19:44 Vital Signs: Vital Signs Date Time Temp Pulse Resp B/P (MAP) Pulse Ox O2 Delivery O2 Flow Rate FiO2 08/07/21 20:30 90 18 159/68 (98) 100 Room Air 08/07/21 19:25 98.9 98.9 EKG: EKG: Sinus rhythm, heart rate 87 bpm, normal axis, no ST elevation or depression, normal intervals. [] Heart Score: C/O Chest Pain: No HEART Score for Chest Pain: HEART Score for Chest Pain Response (Comments) Value History Slighlty/Non-Suspicious 0 ECG Nonspecific Repolarizatio 1 Age > 65 2 Risk Factors >3 Risk Factors or Hx CAD 2 Troponin < Normal Limit 0 Total 5 Risk Factors: Risk Factors: DM, Current or recent (<one month) smoker, HTN, HLP, family history of CAD, obesity. Risk Scores: Score 0 - 3: 2.5% MACE over next 6 weeks - Discharge Home Score 4 - 6: 20.3% MACE over next 6 weeks - Admit for Clinical Observation Score 7 - 10: 72.7% MACE over next 6 weeks - Early Invasive Strategies Radiology/Procedures: Radiology/Procedures: [facility] [address] [place], [place] [id number] IMAGING REPORT Signed PATIENT: CESAR AGEE AACCOUNT: [id number] : 1955 LOCATION: ER AGE: 66 SEX: F EXAM STATUS: PRE ER ORD. PHYSICIAN: LENY MOSQUERA MD REASON: abd pain, OMNI 300 INJ. 60 MLS PROCEDURE: CT ABD PELV W/ IV CONTRST ONLY CT scan of the abdomen and pelvis with contrast 08/07/2021 CLINICAL HISTORY: Abdominal pain. TECHNIQUE: After the intravenous administration of 60 cc of Omnipaque 300 only, contiguous, 5 mm axial sections were obtained through the abdomen and pelvis. One or more of the following individualized dose reduction techniques were utilized for this study: 1. Automated exposure control. 2. Adjustment of the mA and/or kV according to patient size. 3. Use of iterative reconstruction technique. FINDINGS: Comparison study is dated 07/17/2021. Images through the lung bases demonstrate mild to moderate cardiomegaly. There is a very small left pleural effusion. Small calcified granulomas are seen involving the left lower lobe. Minimal dependent subsegmental atelectasis is seen involving both lower lobes. The liver has a nodular contour suggestive of cirrhosis. The spleen, pancreas and adrenal glands are within normal limits. Nonobstructing renal calculi are seen which measure 3 to 5 mm in size. A 5 mm rounded low-attenuation lesion is seen involving the lower pole left kidney. This likely represents a cyst. No further imaging evaluation is recommended. Atherosclerotic calcification of the abdominal aorta is seen. The abdominal aorta tapers normally. Surgical clips are seen within the gallbladder fossa cystectomy. Surgical clips are seen within the mid abdomen. A small amount of ascites is seen surrounding the liver. There is no evidence of bowel obstruction. Images through the pelvis demonstrate the urinary bladder contracted. C alcifications are seen within the pelvis consistent with phleboliths. A small amount of ascites is seen within the pelvis. The osseous structures are unchanged. IMPRESSION: Findings suggestive of cirrhosis. A small amount of ascites is seen involving the abdomen and pelvis. Electronically signed by: Leonardo Guerrero MD (08/07/2021 8:51 PM) [id number] DICTATED and SIGNED BY: LEONARDO GUERRERO MD DATE: 08/07/21 [id number] [] Course & Med Decision Making: Course & Med Decision Making Pertinent Labs and Imaging studies reviewed. (See chart for details) Blood ordered and patient is to hospitalist. She has stable vital signs. Had diarrhea on arrival to emergency department to had no gross hematochezia [] Dragon Disclaimer: Dragon Disclaimer: This electronic medical record was generated, in whole or in part, using a voice recognition dictation system. Departure Departure Impression: Primary Impression: GI bleed Additional Impression: Anemia Disposition: 09 ADMITTED INPATIENT Admitting Physician: BRYANT Condition: GUARDED Referrals: Ashley LIAO MD (PCP) Problem Qualifiers LENY MOSQUERA MD Aug 07, 2021 19:28
[2021-08-07] MEDS ORDERED: fentaNYL PF VIAL 100 MCG/2 ML VIAL IVP ONE (19:30)
[2021-08-07] MEDS ORDERED: IOHEXOL 300 MG/ML 100ML VIAL. IV ONE (20:00)
[2021-08-07] MEDS ORDERED: CONTRAST GIVEN. MC PRN (20:00)
[2021-08-07 20:01] LABS: CALCIUM 8.2 mg/dL (8.5-10.1); CREATININE 8.5 mg/dL (0.6-1.0); GFR 5.7
[2021-08-07 20:16] LABS: BASO # 0.1 x10^3/uL (0.0-0.2); BASO % 1 % (0-3); EOS # 0.1 x10^3/uL (0.0-0.7); EOS % 2 % (0-3); LYMPH # 1.1 x10^3/uL (1.0-4.8); LYMPH % 22 % (24-48); MEAN CORPUSCULAR HEMOGLOBIN 34 pg (25-35); MEAN CORPUSCULAR HGB CONC 34 g/dL (31-37); MEAN CORPUSCULAR VOLUME 101 fL (79-100); MONO # 0.6 x10^3/uL (0.0-1.1); MONO % 13 % (0-9); NEUT % 62 % (31-73); PLATELET COUNT 171 x10^3/uL (140-400); RED BLOOD COUNT 1.69 x10^6/uL (3.50-5.40); WHITE BLOOD COUNT 4.8 x10^3/uL (4.0-11.0)
[2021-08-07 20:17] LABS: ALBUMIN 2.9 g/dL (3.4-5.0); ALBUMIN/GLOBULIN RATIO 0.7 (1.0-1.7); MAGNESIUM 2.1 mg/dL (1.8-2.4); PHOSPHORUS 4.6 mg/dL (2.6-4.7); TOTAL BILIRUBIN 0.5 mg/dL (0.2-1.0); TOTAL PROTEIN 7.1 g/dL (6.4-8.2)
[2021-08-07 20:19] LABS: HEMATOCRIT 17.1 % (36.0-47.0); HEMOGLOBIN 5.8 g/dL (12.0-15.5)
[2021-08-07] MEDS ORDERED: ACETAMINOPHEN 325 MG TABLET. PO PRN ×2 (20:45)
[2021-08-07] MEDS ORDERED: DEXTROSE 50% 25 GM / 50ML DISP.SYRIN. IV PRN (20:45)
--- NOTE | 2021-08-07 20:45 | PDOC1 ---
History and Physical Date of Admission Date of Admission DATE: 08/07/21 TIME: 20:40 Identification/Chief Complaint Chief Complaint rectal bleeding and abd pain Source Source: Caregiver, Chart review, Patient History of Present Illness History of Present Illness Ms Fernandez is a 64 yo F with rectall bleeding, recent admit here 2 weeks ago with bleeding and GI consujlt and renal folliwng , she has missed HD again, last went last and today has new bright red blood per rectum and marked weakness, she has w/ PMHx ESRD on HD TuThSa, PUD with previous GI bleeding, hypertension, hyperlipidemia, GERD, constipation, rheumatoid arthritis, diabetes, hyperparathyroidism, hep C, cirrhosis, and alcohol abuse in remission . Reports she woke up yesterday morning with bright red blood all over her bed, she estimates at least 16 ounces worth as it soaked her pants and bed covers extensively. It was painless. She did not have recurrence of this throughout the day. She reports she was otherwise asymptomatic until she awoke from sleep this evening with generalized abdominal pain and nausea. She does note she still occasionally drinks alcohol She did receive her first Pfizer COVID-19 vaccination in January, but did not receive her second. H/O COVID 19 - 05/27/2020 positive testing, again on 06/14/2020 positive Previously with GI bleed. Transfused 2u PRBC on 04/06/2021 Past Medical History Cardiovascular: HTN, Hyperlipidemia Pulmonary: No pertinent hx GI: Constipation, GERD, GI bleed, Peptic Ulcer disease, Other Heme/Onc: Anemia NOS Hepatobiliary: Cirrhosis, Hep A/B/C, Other Psych: Addictions Rheumatologic: Rheumatoid arthritis Infectious disease: No pertinent hx Renal/: Chronic renal failure, Hematuria Endocrine: Diabetes, Hyperparathyroidism Past Surgical History Past Surgical History: Cholecystectomy, Tonsillectomy, Hysterectomy Family History Family History: Alcohol Abuse, Cancer, High Cholestrol, Hypertension Social History Smoke: Quit ALCOHOL: other (prev. very heavy, quit) Drugs: None Current Medications Current Medications Current Medications Fentanyl Citrate (Fentanyl 2ml Vial) 75 mcg 1X ONCE IVP Last administered on 08/07/21at 20:23; Start 08/07/21 at 19:30; Stop 08/07/21 at 19:31; Status DC Iohexol (Omnipaque 300 Mg/ml) 60 ml 1X ONCE IV Last administered on 08/07/21at 20:20; Start 08/07/21 at 20:00; Stop 08/07/21 at 20:01; Status DC Info (CONTRAST GIVEN -- Rx MONITORING) 1 each PRN DAILY PRN MC SEE COMMENTS; Start 08/07/21 at 20:00; Stop 08/09/21 at 19:59 Active Scripts Active Admelog (Insulin Lispro) 100 Unit/1 Ml Vial 0 Units SQ TIDWMEALS 10 Days Omeprazole 40 Mg Capsule. 1 Cap PO BID Reported Sevelamer HCl 800 Mg Tablet 800 Mg PO BID MDD Oxycodone-Acetaminophn 7.5-325 (Oxycodone HCl/Acetaminophen) 1 Each Tablet 1 Tab PO QID PRN Carvedilol 25 Mg Tablet 25 Mg PO BIDWMEALS Allergies Allergies: Coded Allergies: No Known Drug Allergies (Unverified , 06/19/21) ROS General: No: Chills, Night Sweats, Fatigue, Malaise, Appetite, Other PSYCHOLOGICAL ROS: No: Anxiety, Behavioral Disorder, Concentration difficultie, Decreased libido, Depression, Disorientation, Hallucinations, Hostility, Irritablity, Memory difficulties, Mood Swings, Obsessive thoughts, Physical abuse, Sexual abuse, Sleep disturbances, Suicidal ideation, Other Eyes: No Blurry vision, No Decreased vision, No Double vision, No Dry eyes, No Excessive tearing, No Eye Pain, No Itchy Eyes, No Loss of vision, No Photophobia, No Scotomata, No Uses contacts, No Uses glasses, No Other HEENT: No: Heacaches, Visual Changes, Hearing change, Nasal congestion, Nasal discharge, Oral lesions, Sinus pain, Sore Throat, Epistaxis, Sneezing, Snoring, Tinnitus, Vertigo, Vocal changes, Other ENDOCRINE: No: Breast Changes, Galactorrhea, Hair Pattern Changes, Hot Flashes, Malaise/lethargy, Mood Swings, Palpitations, Polydipsia/polyuria, Skin Changes, Temperature Intolerance, Unexpected Weight Changes, Other Respiratory: No: Cough, Hemoptysis, Orthopnea, Pleuritic Pain, Shortness of breath, SOB with excertion, Sputum Changes, Stridor, Tachypnea, Wheezing, Other Cardiovascular: No Chest Pain, No Palpitations, No Orthopnea, No Paroxysmal Noc. Dyspnea, No Edema, No Lt Headedness, No Other Gastrointestinal: Yes Nausea, Yes Abdominal Pain; No Vomiting, No Diarrhea, No Constipation, No Melena, No Hematochezia, No Other Genitourinary: No Dysuria, No Frequency, No Incontinence, No Hematuria, No Retention, No Discharge, No Urgency, No Pain, No Flank Pain, No Other, No , No , No , No , No , No , No Musculoskeletal: Yes Joint Stiffness; No Gait Disturbance, No Joint Pain, No Joint Swelling, No Muscle Pain, No Muscular Weakness, No Pain In:, No Swelling In:, No Other Neurological: No Behavorial Changes, No Bowel/Bladder ControlChng, No Confusion, No Dizziness, No Gait Disturbance, No Headaches, No Impaired Coord/balance, No Memory Loss, No Numbness/Tingling, No Seizures, No Speech Problems, No Tremors, No Visual Changes, No Weakness, No Other Skin: No Dry Skin, No Eczema, No Hair Changes, No Lumps, No Mole Changes, No Mottling, No Nail Changes, No Pruritus, No Rash, No Skin Lesion Changes, No Other, No Acne Physical Exam General: Alert, moderate distress, severe distress, Other (emotional) HEENT: EOMI Lungs: Normal air movement Heart: S1S2, no gallops, no murmurs Abdomen: Soft Extremities: No cyanosis, No edema Skin: No rashes, No significant lesion Neuro: Normal speech, Normal tone Psych/Mental Status: Mental status NL, Mood NL Vitals Vitals Vital Signs Date Time Temp Pulse Resp B/P (MAP) Pulse Ox O2 Delivery O2 Flow Rate FiO2 08/07/21 20:23 99 Room Air 08/07/21 19:25 98.9 85 20 167/70 (102) 98.9 Labs Labs Laboratory Tests Test 08/07/21 19:44 08/07/21 20:00 Sodium Level 139 mmol/L (136-145) Potassium Level 6.0 mmol/L (3.5-5.1) Chloride Level 97 mmol/L (98-107) Carbon Dioxide Level 24 mmol/L (21-32) Anion Gap 18 (6-14) Blood Urea Nitrogen 80 mg/dL (7-20) Creatinine 8.5 mg/dL (0.6-1.0) Estimated GFR (Cockcroft-Gault) 5.7 BUN/Creatinine Ratio 9 (6-20) Glucose Level 104 mg/dL (70-99) Lactic Acid Level 1.5 mmol/L (0.4-2.0) Calcium Level 8.2 mg/dL (8.5-10.1) Phosphorus Level 4.6 mg/dL (2.6-4.7) Magnesium Level 2.1 mg/dL (1.8-2.4) Total Bilirubin 0.5 mg/dL (0.2-1.0) Aspartate Amino Transf (AST/SGOT) 40 U/L (15-37) Alanine Aminotransferase (ALT/SGPT) 23 U/L (14-59) Alkaline Phosphatase 158 U/L (46-116) Troponin I Quantitative 0.026 ng/mL (0.000-0.055) FS-Qne-X-Type Natriuretic Peptide > 06023 pg/mL (0-124) Total Protein 7.1 g/dL (6.4-8.2) Albumin 2.9 g/dL (3.4-5.0) Albumin/Globulin Ratio 0.7 (1.0-1.7) Lipase 252 U/L (73-393) White Blood Count 4.8 x10^3/uL (4.0-11.0) Red Blood Count 1.69 x10^6/uL (3.50-5.40) Hemoglobin 5.8 g/dL (12.0-15.5) Hematocrit 17.1 % (36.0-47.0) Mean Corpuscular Volume 101 fL (79-100) Mean Corpuscular Hemoglobin 34 pg (25-35) Mean Corpuscular Hemoglobin Concent 34 g/dL (31-37) Red Cell Distribution Width 23.0 % (11.5-14.5) Platelet Count 171 x10^3/uL (140-400) Neutrophils (%) (Auto) 62 % (31-73) Lymphocytes (%) (Auto) 22 % (24-48) Monocytes (%) (Auto) 13 % (0-9) Eosinophils (%) (Auto) 2 % (0-3) Basophils (%) (Auto) 1 % (0-3) Neutrophils # (Auto) 3.0 x10^3/uL (1.8-7.7) Lymphocytes # (Auto) 1.1 x10^3/uL (1.0-4.8) Monocytes # (Auto) 0.6 x10^3/uL (0.0-1.1) Eosinophils # (Auto) 0.1 x10^3/uL (0.0-0.7) Basophils # (Auto) 0.1 x10^3/uL (0.0-0.2) Laboratory Tests Test 08/07/21 19:44 08/07/21 20:00 Sodium Level 139 mmol/L (136-145) Potassium Level 6.0 mmol/L (3.5-5.1) Chloride Level 97 mmol/L (98-107) Carbon Dioxide Level 24 mmol/L (21-32) Anion Gap 18 (6-14) Blood Urea Nitrogen 80 mg/dL (7-20) Creatinine 8.5 mg/dL (0.6-1.0) Estimated GFR (Cockcroft-Gault) 5.7 BUN/Creatinine Ratio 9 (6-20) Glucose Level 104 mg/dL (70-99) Lactic Acid Level 1.5 mmol/L (0.4-2.0) Calcium Level 8.2 mg/dL (8.5-10.1) Phosphorus Level 4.6 mg/dL (2.6-4.7) Magnesium Level 2.1 mg/dL (1.8-2.4) Total Bilirubin 0.5 mg/dL (0.2-1.0) Aspartate Amino Transf (AST/SGOT) 40 U/L (15-37) Alanine Aminotransferase (ALT/SGPT) 23 U/L (14-59) Alkaline Phosphatase 158 U/L (46-116) Troponin I Quantitative 0.026 ng/mL (0.000-0.055) HK-Xif-W-Type Natriuretic Peptide > 55824 pg/mL (0-124) Total Protein 7.1 g/dL (6.4-8.2) Albumin 2.9 g/dL (3.4-5.0) Albumin/Globulin Ratio 0.7 (1.0-1.7) Lipase 252 U/L (73-393) White Blood Count 4.8 x10^3/uL (4.0-11.0) Red Blood Count 1.69 x10^6/uL (3.50-5.40) Hemoglobin 5.8 g/dL (12.0-15.5) Hematocrit 17.1 % (36.0-47.0) Mean Corpuscular Volume 101 fL (79-100) Mean Corpuscular Hemoglobin 34 pg (25-35) Mean Corpuscular Hemoglobin Concent 34 g/dL (31-37) Red Cell Distribution Width 23.0 % (11.5-14.5) Platelet Count 171 x10^3/uL (140-400) Neutrophils (%) (Auto) 62 % (31-73) Lymphocytes (%) (Auto) 22 % (24-48) Monocytes (%) (Auto) 13 % (0-9) Eosinophils (%) (Auto) 2 % (0-3) Basophils (%) (Auto) 1 % (0-3) Neutrophils # (Auto) 3.0 x10^3/uL (1.8-7.7) Lymphocytes # (Auto) 1.1 x10^3/uL (1.0-4.8) Monocytes # (Auto) 0.6 x10^3/uL (0.0-1.1) Eosinophils # (Auto) 0.1 x10^3/uL (0.0-0.7) Basophils # (Auto) 0.1 x10^3/uL (0.0-0.2) VTE Prophylaxis Ordered VTE Prophylaxis Devices: Contraindicated VTE Pharmacological Prophylaxi: Contraindicated Assessment/Plan Assessment/Plan acute GI bleed with acute abdominal pain ESRD, non compliance with HD schedule acute on chronic abd pain, home narcotic pain meds moderate malnutriotn CHF, fluid overload hyperkalemia, acidosis, non-compliance with HD consutl GI and renal, cont PPI, I ordered 2 u PRBC, Hgb lower than 2 weeks ago when admitted for similar Justifications for Admission Other Justification Hyperkalemia, hemodialysis ELIZABETH GONZALEZ MD Aug 07, 2021 20:45
--- NOTE | 2021-08-07 20:54 | RAD ---
CT scan of the abdomen and pelvis with contrast 08/07/2021 CLINICAL HISTORY: Abdominal pain. TECHNIQUE: After the intravenous administration of 60 cc of Omnipaque 300 only, contiguous, 5 mm axia l sections were obtained through the abdomen and pelvis. One or more of the following individualized dose reduction techniques were utilized for this study: 1. Automated exposure control. 2. Adjustment of the mA and/or kV according to patient size. 3. Use of iterative reconstruction technique. FINDINGS: Comparison study is dated 07/17/2021. Images through the lung bases demonstrate mild to moderate cardiomegaly. There is a very small left p leural effusion. Small calcified granulomas are seen involving the left lower lobe. Minimal dependent subsegmental atelectasis is seen involving both lower lobes. The liver has a nodular contour suggestive of cirrhosis. The spleen, pancreas and adrenal glands are within normal limits. Nonobstructing renal calculi are seen which measure 3 to 5 mm in size. A 5 mm r ounded low-attenuation lesion is seen involving the lower pole left kidney. This likely represents a cyst. No further imaging evaluation is recommended. Atherosclerotic calcification of the abdominal aorta is seen. The abdominal aorta tapers normally. Paul rgical clips are seen within the gallbladder fossa cystectomy. Surgical clips are seen within the mid abdomen. A small amount of ascites is seen surrounding the liver. There is no evidence of bowel obst ruction. Images through the pelvis demonstrate the urinary bladder contracted. Calcifications are seen within the pelvis consistent with phleboliths. A small amount of ascites is seen within the pelvis. The osse ous structures are unchanged. IMPRESSION: Findings suggestive of cirrhosis. A small amount of ascites is seen involving the abdomen and pelvis. Electronically signed by: Leonardo Guerrero MD (08/07/2021 8:51 PM) [id number]
--- NOTE | 2021-08-07 20:55 | EKG ---
[facility] [address] [place] [id number] Test Date: 2021-08-07 Test Time: 19:30:11 Pat Name: CESAR AGEE Department: Room: Gender: F [employer] Manager: : 1955 Requested By: LENY MOSQUERA Order Number: [id number] Reading MD: Kalin Rai MD Measurements Intervals Rodney Rate: 87 P: 135 DC: 178 QRS: 62 QRSD: 78 T: 11 QT: 368 QTc: 443 Interpretive Statements SINUS RHYTHM Electronically Signed On 08-08-2021 11:55:14 CDT by Kalin Rai MD
[2021-08-07] MEDS ORDERED: PANTOPRAZOLE 40 MG TABLET.DR. PO SCH (21:00)
[2021-08-07 21:02] LABS: FECAL OB PT POSITIVE (NEG)
[2021-08-07] MEDS ORDERED: PANTOPRAZOLE IV PUSH 40 MG VIAL. IVP ONE (21:15)
[2021-08-07 21:26] LABS: HYPOCHROMIA SLIGHT; MICROCYTOSIS SLIGHT; OVALOCYTES OCC; PLT ESTIMATE ADEQUATE (ADEQUATE); POIKILOCYTOSIS SLIGHT; ROULEAUX PRESENT; TARGET CELLS OCC
[2021-08-07] MEDS: oxyCODONE/APAP 7.5/325 1 TAB TABLET PO PRN (22:36)
--- NOTE | 2021-08-07 23:16 | NUR ---
Patient admitted to room 107 from ER via cart accompanied by ER nurse at 2200. Patient moved from cart to ICU bed x 4 person assist. Tele monitor on. SR noted. VSS. RA. C/o Abd pain at 10 on 1-10 scale. PRN pain medicine administered. Blood consent received. Call light within reach. Will continue to monitor.
[2021-08-08] VITALS (23 sets, daily range): BP systolic 128–178; BP diastolic 51–82
[2021-08-08 06:10] LABS: ALBUMIN 2.5 g/dL (3.4-5.0); ALBUMIN/GLOBULIN RATIO 0.7 (1.0-1.7); CALCIUM 7.6 mg/dL (8.5-10.1); CREATININE 8.7 mg/dL (0.6-1.0); GFR 5.5; POTASSIUM 5.8 mmol/L (3.5-5.1); TOTAL BILIRUBIN 0.8 mg/dL (0.2-1.0); TOTAL PROTEIN 6.3 g/dL (6.4-8.2)
[2021-08-08 06:12] LABS: BASO % 1 % (0-3); EOS # 0.1 x10^3/uL (0.0-0.7); EOS % 2 % (0-3); HEMATOCRIT 21.3 % (36.0-47.0); HEMOGLOBIN 7.2 g/dL (12.0-15.5); LYMPH # 1.2 x10^3/uL (1.0-4.8); LYMPH % 28 % (24-48); MEAN CORPUSCULAR HEMOGLOBIN 31 pg (25-35); MEAN CORPUSCULAR HGB CONC 34 g/dL (31-37); MEAN CORPUSCULAR VOLUME 92 fL (79-100); MONO # 0.6 x10^3/uL (0.0-1.1); MONO % 14 % (0-9); NEUT # 2.4 x10^3/uL (1.8-7.7); NEUT % 54 % (31-73); PLATELET COUNT 129 x10^3/uL (140-400); RED BLOOD COUNT 2.31 x10^6/uL (3.50-5.40); RED CELL DISTRIBUTION WIDTH 25.7 % (11.5-14.5); WHITE BLOOD COUNT 4.4 x10^3/uL (4.0-11.0)
[2021-08-08] MEDS ORDERED: PANTOPRAZOLE 40 MG TABLET.DR. PO SCH (07:30)
[2021-08-08] MEDS: INSULIN LISPRO 300 UNITS/3 ML VIAL. SQ SCH ×3 (08:00→17:00)
[2021-08-08] MEDS ORDERED: FLU VACC QUAD 21-22 (6MOS+) PF 0.5 ML SYRINGE. VAX IM ONE (09:00)
[2021-08-08] MEDS: VITAMIN B12,B9,B6 COMPLEX 1 TABLET. PO SCH (09:07)
[2021-08-08] MEDS: SEVELAMER CARBONATE 800 MG TABLET. PO SCH ×2 (09:07→18:35)
--- NOTE | 2021-08-08 09:54 | PDOC2 ---
GI CONSULT Date of Service: DATE: 08/08/21 TIME: 09:54 Reason For Consult: bleeding HPI: HPI: 66 y/o female who we see often. To ER yesterday w/ mid abdominal pain "like a knot" and lots of diarrhea w/ bright red blood. Started suddenly. Small amount of emesis in ER without blood. Nurse reports smear of stool this morning, possibly w/ dark blood but hard to tell. Pt reports ongoing abdominal discomfort. Hasn't dialyzed since last - didn't have a ride on Saturday. Reports compliance w/ PPI BID. Hgb lower than baseline, received 2 units pRBCs. Hypertensive in ICU. Talks a lot about her broken right toenail. PMH: PMH: HTN, HLD, ESRD on HD, RA, DM, hyperparathyroidism, OA, COVID-19 (+ April and May 2020) partial hysterectomy, cataracts, left femur ORIF FH: Family History: DM Social History: Smoke: Quit ALCOHOL: other (heavy in past) Drugs: None ROS: GEN: Denies fevers, chills, sweats HEENT: Denies blurred vision, sore throat CV: Denies chest pain RESP: Denies shortness of air, cough GI: Per HPI : Denies hematuria, dysuria ENDO: Denies weight changes NEURO: Denies confusion, dizziness MSK: Denies weakness, joint pain/swelling SKIN: Denies jaundice, pruritus Vitals: Vitals: Vital Signs Date Time Temp Pulse Resp B/P (MAP) Pulse Ox O2 Delivery O2 Flow Rate FiO2 08/08/21 09:00 80 20 173/64 (100) 99 Room Air 08/08/21 08:00 98.0 98.0 Labs: Labs: Laboratory Tests Test 08/07/21 19:44 08/07/21 20:00 08/07/21 20:35 08/08/21 05:40 Sodium Level 139 mmol/L (136-145) 137 mmol/L (136-145) Potassium Level 6.0 mmol/L (3.5-5.1) 5.8 mmol/L (3.5-5.1) Chloride Level 97 mmol/L (98-107) 98 mmol/L (98-107) Carbon Dioxide Level 24 mmol/L (21-32) 25 mmol/L (21-32) Anion Gap 18 (6-14) 14 (6-14) Blood Urea Nitrogen 80 mg/dL (7-20) 79 mg/dL (7-20) Creatinine 8.5 mg/dL (0.6-1.0) 8.7 mg/dL (0.6-1.0) Estimated GFR (Cockcroft-Gault) 5.7 5.5 BUN/Creatinine Ratio 9 (6-20) 9 (6-20) Glucose Level 104 mg/dL (70-99) 76 mg/dL (70-99) Lactic Acid Level 1.5 mmol/L (0.4-2.0) Calcium Level 8.2 mg/dL (8.5-10.1) 7.6 mg/dL (8.5-10.1) Phosphorus Level 4.6 mg/dL (2.6-4.7) Magnesium Level 2.1 mg/dL (1.8-2.4) Total Bilirubin 0.5 mg/dL (0.2-1.0) 0.8 mg/dL (0.2-1.0) Aspartate Amino Transf (AST/SGOT) 40 U/L (15-37) 23 U/L (15-37) Alanine Aminotransferase (ALT/SGPT) 23 U/L (14-59) 13 U/L (14-59) Alkaline Phosphatase 158 U/L (46-116) 134 U/L (46-116) Troponin I Quantitative 0.026 ng/mL (0.000-0.055) YA-Gkr-A-Type Natriuretic Peptide > 82565 pg/mL (0-124) Total Protein 7.1 g/dL (6.4-8.2) 6.3 g/dL (6.4-8.2) Albumin 2.9 g/dL (3.4-5.0) 2.5 g/dL (3.4-5.0) Albumin/Globulin Ratio 0.7 (1.0-1.7) 0.7 (1.0-1.7) Lipase 252 U/L (73-393) White Blood Count 4.8 x10^3/uL (4.0-11.0) 4.4 x10^3/uL (4.0-11.0) Red Blood Count 1.69 x10^6/uL (3.50-5.40) 2.31 x10^6/uL (3.50-5.40) Hemoglobin 5.8 g/dL (12.0-15.5) 7.2 g/dL (12.0-15.5) Hematocrit 17.1 % (36.0-47.0) 21.3 % (36.0-47.0) Mean Corpuscular Volume 101 fL (79-100) 92 fL (79-100) Mean Corpuscular Hemoglobin 34 pg (25-35) 31 pg (25-35) Mean Corpuscular Hemoglobin Concent 34 g/dL (31-37) 34 g/dL (31-37) Red Cell Distribution Width 23.0 % (11.5-14.5) 25.7 % (11.5-14.5) Platelet Count 171 x10^3/uL (140-400) 129 x10^3/uL (140-400) Neutrophils (%) (Auto) 62 % (31-73) 54 % (31-73) Lymphocytes (%) (Auto) 22 % (24-48) 28 % (24-48) Monocytes (%) (Auto) 13 % (0-9) 14 % (0-9) Eosinophils (%) (Auto) 2 % (0-3) 2 % (0-3) Basophils (%) (Auto) 1 % (0-3) 1 % (0-3) Neutrophils # (Auto) 3.0 x10^3/uL (1.8-7.7) 2.4 x10^3/uL (1.8-7.7) Lymphocytes # (Auto) 1.1 x10^3/uL (1.0-4.8) 1.2 x10^3/uL (1.0-4.8) Monocytes # (Auto) 0.6 x10^3/uL (0.0-1.1) 0.6 x10^3/uL (0.0-1.1) Eosinophils # (Auto) 0.1 x10^3/uL (0.0-0.7) 0.1 x10^3/uL (0.0-0.7) Basophils # (Auto) 0.1 x10^3/uL (0.0-0.2) 0.0 x10^3/uL (0.0-0.2) Platelet Estimate Adequate (ADEQUATE) Hypochromasia Slight Poikilocytosis Slight Microcytosis Slight Macrocytosis Slight Target Cells Occ Ovalocytes Occ Rouleau Present Stool Occult Blood Positive (NEG) Allergies: Coded Allergies: No Known Drug Allergies (Unverified , 06/19/21) Medications: Current Medications Medications (Trade) Dose Ordered Sig/Kimberly Route PRN Reason Start Time Stop Time Status Last Admin Dose Admin Fentanyl Citrate (Fentanyl 2ml Vial) 75 mcg 1X ONCE IVP 08/07/21 19:30 08/07/21 19:31 DC 08/07/21 20:23 Iohexol (Omnipaque 300 Mg/ml) 60 ml 1X ONCE IV 08/07/21 20:00 08/07/21 20:01 DC 08/07/21 20:20 Oxycodone/ Acetaminophen (Percocet 7.5/ 325) 1 tab PRN QID PRN PO MODERATE-SEVERE PAIN 08/07/21 20:45 08/07/21 22:36 Sevelamer Carbonate (Renvela) 800 mg BIDWMEALS PO 08/08/21 08:00 08/08/21 09:07 Vitamin B Complex (Folbic Tablet) 1 tab DAILY PO 08/08/21 09:00 08/08/21 09:07 Acetaminophen (Tylenol) 650 mg PRN Q8HRS PRN PO MILD PAIN 1-3 08/07/21 20:45 08/08/21 09:07 Pantoprazole Sodium (PROTONIX VIAL for IV PUSH) 40 mg 1X ONCE IVP 08/07/21 21:15 08/07/21 21:16 DC 08/07/21 21:37 Pantoprazole Sodium (Protonix) 40 mg BIDAC PO 08/08/21 07:30 08/08/21 09:07 Imaging: Imaging: CT A/P Images through the lung bases demonstrate mild to moderate cardiomegaly. There is a very small left pleural effusion. Small calcified granulomas are seen involving the left lower lobe. Minimal dependent subsegmental atelectasis is seen involving both lower lobes. The liver has a nodular contour suggestive of cirrhosis. The spleen, pancreas and adrenal glands are within normal limits. Nonobstructing renal calculi are seen which measure 3 to 5 mm in size. A 5 mm rounded low-attenuation lesion is seen involving the lower pole left kidney. This likely represents a cyst. No further imaging evaluation is recommended. Atherosclerotic calcification of the abdominal aorta is seen. The abdominal aorta tapers normally. Surgical clips are seen within the gallbladder fossa cystectomy. Surgical clips are seen within the mid abdomen. A small amount of ascites is seen surrounding the liver. There is no evidence of bowel obstruction. Images through the pelvis demonstrate the urinary bladder contracted. Calcifications are seen within the pelvis consistent with phleboliths. A small amount of ascites is seen within the pelvis. The osseous structures are unchanged. IMPRESSION: Findings suggestive of cirrhosis. A small amount of ascites is seen involving the abdomen and pelvis. PE: GEN: uncomfortable HEENT: Atraumatic, PERRL LUNGS: CTAB HEART: RRR ABD: NABS, some distention, periumbilical discomfort EXTREMITY/SKIN: SCDs, socks NEURO/PSYCH: A & O 3 A/P: A/P: Abd pain, diarrhea/hematochezia Chronic anemia, thrombocytopenia, macrocytosis, leukopenia - bone marrow biopsy recommended per heme/onc in the past, 09/07 +Hemoccults since 2105 H/o recurrent UGI bleeding, refractory ulcer (negative for H. pylori, h/o NSAID use), past GDA embolization and surgical evals (poor surgical candidate) - 10 EGDs since 2015; last EGD in 04/[address] Faulkner: mostly-healed GERD, (not bleeding), apparent gastric Dieulafoy's (clipped), normal duodenum. H/o GERD, cirrhosis, Hep C, pancreatitis, recurrent C Diff, h/o alcohol overuse CRC screen - last colonoscopy unremarkable at [facility] in 2018 ESRD on HD - last HD 08/03 -- ?bleeding stopped Hgb improved w/ transfusion. Observe NPO from GI standpoint. Consider bleeding scan if recurs. Continue PPI. Consider checking C Diff if diarrhea recurs considering her history. IRIS SZYMANSKI Aug 08, 2021 09:54
--- NOTE | 2021-08-08 10:12 | PDOC ---
[employer] PROGRESS NOTE Date of Service DOS: DATE: 08/08/21 TIME: 10:10 Chief Complaint Chief Complaint acute GI bleed with acute abdominal pain ESRD, non compliance with HD schedule acute on chronic abd pain, home narcotic pain meds moderate malnutriotn CHF, fluid overload hyperkalemia, acidosis, non-compliance with HD acute blood loss anemia, s/p 2 u PRBC, Hyperkalemia, hemodialysis History of Present Illness History of Present Illness 2 u prbc IV pain meds, the PO pain meds are not working for her. Vitals/I&O Vitals/I&O: Vital Signs Date Time Temp Pulse Resp B/P (MAP) Pulse Ox O2 Delivery O2 Flow Rate FiO2 08/08/21 09:00 80 20 173/64 (100) 99 Room Air 08/08/21 08:00 98.0 98.0 I & O 08/07/21 08/07/21 08/08/21 15:00 23:00 07:00 Intake Total 639 ml Output Total 0 ml Balance 639 ml Physical Exam General: Alert, Cooperative, moderate distress, severe distress, Other (emotional) Heart: Regular rate Lungs: Clear Abdomen: Soft Extremities: No cyanosis, No edema Skin: No rashes, No significant lesion Labs Labs: Laboratory Tests Test 08/07/21 19:44 08/07/21 20:00 08/07/21 20:35 08/08/21 05:40 Sodium Level 139 mmol/L (136-145) 137 mmol/L (136-145) Potassium Level 6.0 mmol/L (3.5-5.1) 5.8 mmol/L (3.5-5.1) Chloride Level 97 mmol/L (98-107) 98 mmol/L (98-107) Carbon Dioxide Level 24 mmol/L (21-32) 25 mmol/L (21-32) Anion Gap 18 (6-14) 14 (6-14) Blood Urea Nitrogen 80 mg/dL (7-20) 79 mg/dL (7-20) Creatinine 8.5 mg/dL (0.6-1.0) 8.7 mg/dL (0.6-1.0) Estimated GFR (Cockcroft-Gault) 5.7 5.5 BUN/Creatinine Ratio 9 (6-20) 9 (6-20) Glucose Level 104 mg/dL (70-99) 76 mg/dL (70-99) Lactic Acid Level 1.5 mmol/L (0.4-2.0) Calcium Level 8.2 mg/dL (8.5-10.1) 7.6 mg/dL (8.5-10.1) Phosphorus Level 4.6 mg/dL (2.6-4.7) Magnesium Level 2.1 mg/dL (1.8-2.4) Total Bilirubin 0.5 mg/dL (0.2-1.0) 0.8 mg/dL (0.2-1.0) Aspartate Amino Transf (AST/SGOT) 40 U/L (15-37) 23 U/L (15-37) Alanine Aminotransferase (ALT/SGPT) 23 U/L (14-59) 13 U/L (14-59) Alkaline Phosphatase 158 U/L (46-116) 134 U/L (46-116) Troponin I Quantitative 0.026 ng/mL (0.000-0.055) SD-Fbm-I-Type Natriuretic Peptide > 10312 pg/mL (0-124) Total Protein 7.1 g/dL (6.4-8.2) 6.3 g/dL (6.4-8.2) Albumin 2.9 g/dL (3.4-5.0) 2.5 g/dL (3.4-5.0) Albumin/Globulin Ratio 0.7 (1.0-1.7) 0.7 (1.0-1.7) Lipase 252 U/L (73-393) White Blood Count 4.8 x10^3/uL (4.0-11.0) 4.4 x10^3/uL (4.0-11.0) Red Blood Count 1.69 x10^6/uL (3.50-5.40) 2.31 x10^6/uL (3.50-5.40) Hemoglobin 5.8 g/dL (12.0-15.5) 7.2 g/dL (12.0-15.5) Hematocrit 17.1 % (36.0-47.0) 21.3 % (36.0-47.0) Mean Corpuscular Volume 101 fL (79-100) 92 fL (79-100) Mean Corpuscular Hemoglobin 34 pg (25-35) 31 pg (25-35) Mean Corpuscular Hemoglobin Concent 34 g/dL (31-37) 34 g/dL (31-37) Red Cell Distribution Width 23.0 % (11.5-14.5) 25.7 % (11.5-14.5) Platelet Count 171 x10^3/uL (140-400) 129 x10^3/uL (140-400) Neutrophils (%) (Auto) 62 % (31-73) 54 % (31-73) Lymphocytes (%) (Auto) 22 % (24-48) 28 % (24-48) Monocytes (%) (Auto) 13 % (0-9) 14 % (0-9) Eosinophils (%) (Auto) 2 % (0-3) 2 % (0-3) Basophils (%) (Auto) 1 % (0-3) 1 % (0-3) Neutrophils # (Auto) 3.0 x10^3/uL (1.8-7.7) 2.4 x10^3/uL (1.8-7.7) Lymphocytes # (Auto) 1.1 x10^3/uL (1.0-4.8) 1.2 x10^3/uL (1.0-4.8) Monocytes # (Auto) 0.6 x10^3/uL (0.0-1.1) 0.6 x10^3/uL (0.0-1.1) Eosinophils # (Auto) 0.1 x10^3/uL (0.0-0.7) 0.1 x10^3/uL (0.0-0.7) Basophils # (Auto) 0.1 x10^3/uL (0.0-0.2) 0.0 x10^3/uL (0.0-0.2) Platelet Estimate Adequate (ADEQUATE) Hypochromasia Slight Poikilocytosis Slight Microcytosis Slight Macrocytosis Slight Target Cells Occ Ovalocytes Occ Rouleau Present Stool Occult Blood Positive (NEG) Review of Systems Review of Systems: no nv.d. Assessment and Plan Assessmemt and Plan Problems Medical Problems: (1) Anemia Status: Chronic Comment Review of Relevant I have reviewed the following items tamika (where applicable) has been applied. Medications: Current Medications Medications (Trade) Dose Ordered Sig/Kimberly Route PRN Reason Start Time Stop Time Status Last Admin Dose Admin Fentanyl Citrate (Fentanyl 2ml Vial) 75 mcg 1X ONCE IVP 08/07/21 19:30 08/07/21 19:31 DC 08/07/21 20:23 Iohexol (Omnipaque 300 Mg/ml) 60 ml 1X ONCE IV 08/07/21 20:00 08/07/21 20:01 DC 08/07/21 20:20 Oxycodone/ Acetaminophen (Percocet 7.5/ 325) 1 tab PRN QID PRN PO MODERATE-SEVERE PAIN 08/07/21 20:45 08/07/21 22:36 Sevelamer Carbonate (Renvela) 800 mg BIDWMEALS PO 08/08/21 08:00 08/08/21 09:07 Vitamin B Complex (Folbic Tablet) 1 tab DAILY PO 08/08/21 09:00 08/08/21 09:07 Acetaminophen (Tylenol) 650 mg PRN Q8HRS PRN PO MILD PAIN 1-3 08/07/21 20:45 08/08/21 09:07 Pantoprazole Sodium (PROTONIX VIAL for IV PUSH) 40 mg 1X ONCE IVP 08/07/21 21:15 08/07/21 21:16 DC 08/07/21 21:37 Pantoprazole Sodium (Protonix) 40 mg BIDAC PO 08/08/21 07:30 08/08/21 09:56 DC 08/08/21 09:07 Justifications for Admission Other Justification Hyperkalemia, hemodialysis ELIZABETH GONZALEZ MD Aug 08, 2021 10:12
[2021-08-08] MEDS: fentaNYL PF VIAL 100 MCG/2 ML VIAL IVP PRN (10:34)
--- NOTE | 2021-08-08 10:45 | PDOC2 ---
CONSULT Date of Consult Date of Consult DATE: 08/08/21 TIME: 10:41 Reason for Consult Reason for Consult: HIGH K AND ESRD Referring Physician Referring Physician: CARLOS Identification/Chief Complaint Chief Complaint BLEEDING Source Source: Caregiver, Chart review History of Present Illness Reason for Visit: THIS IS A 64 YR OLD ESRD PT WITH OP HD ON TTS. HAS BEEN NON COMPLIANT. LAST TX WAS A WEEK AGO. HAS BEEN ADMITTED WITH RECTAL BLEEDING. GI EVALUATION ONGOING. HGB OF 5.8. K OF 5.8. HAS A LEFT ARM AV ACCESS FOR HER HD. ESRD DUE TO DM II AND HTN RELATED END ORGAN DAMAGE. Past Medical History Cardiovascular: HTN, Hyperlipidemia Pulmonary: No pertinent hx GI: Constipation, GERD, GI bleed, Peptic Ulcer disease, Other Heme/Onc: Anemia NOS Hepatobiliary: Cirrhosis, Hep A/B/C, Other Psych: Addictions Rheumatologic: Rheumatoid arthritis Infectious disease: No pertinent hx Renal/: Chronic renal failure, Hematuria Endocrine: Diabetes, Hyperparathyroidism Past Surgical History Past Surgical History: Cholecystectomy, Tonsillectomy, Hysterectomy Family History Family History: Alcohol Abuse, Cancer, High Cholestrol, Hypertension Social History Quit ALCOHOL: other (prev. very heavy, quit) Drugs: None Lives: with Family Domestic Violence: Neg Current Problem List Problem List Problems Medical Problems: (1) Anemia Status: Chronic Current Medications Current Medications Current Medications Fentanyl Citrate (Fentanyl 2ml Vial) 75 mcg 1X ONCE IVP Last administered on 08/07/21at 20:23; Start 08/07/21 at 19:30; Stop 08/07/21 at 19:31; Status DC Iohexol (Omnipaque 300 Mg/ml) 60 ml 1X ONCE IV Last administered on 08/07/21at 20:20; Start 08/07/21 at 20:00; Stop 08/07/21 at 20:01; Status DC Info (CONTRAST GIVEN -- Rx MONITORING) 1 each PRN DAILY PRN MC SEE COMMENTS; Start 08/07/21 at 20:00; Stop 08/09/21 at 19:59 Acetaminophen (Tylenol) 650 mg 1X PRN PRN PO PRE-TRANSFUSION; Start 08/07/21 at 20:45; Stop 08/08/21 at 20:44 Oxycodone/ Acetaminophen (Percocet 7.5/ 325) 1 tab PRN QID PRN PO MODERATE- SEVERE PAIN Last administered on 08/07/21at 22:36; Start 08/07/21 at 20:45 Pantoprazole Sodium (Protonix) 40 mg BIDAC PO ; Start 08/07/21 at 21:00; Stop 08/07/21 at 21:08; Status DC Sevelamer Carbonate (Renvela) 800 mg BIDWMEALS PO Last administered on 08/08/21at 09:07; Start 08/08/21 at 08:00 Insulin Human Lispro (HumaLOG) 0-7 UNITS TIDWMEALS SQ ; Start 08/08/21 at 08:00 Dextrose (Dextrose 50%-Water Syringe) 12.5 gm PRN Q15MIN PRN IV SEE COMMENTS; Start 08/07/21 at 20:45 Vitamin B Complex (Folbic Tablet) 1 tab DAILY PO Last administered on 08/08/21at 09:07; Start 08/08/21 at 09:00 Acetaminophen (Tylenol) 650 mg PRN Q8HRS PRN PO MILD PAIN 1-3 Last administered on 08/08/21at 09:07; Start 08/07/21 at 20:45 Pantoprazole Sodium (PROTONIX VIAL for IV PUSH) 40 mg 1X ONCE IVP Last administered on 08/07/21at 21:37; Start 08/07/21 at 21:15; Stop 08/07/21 at 21:16; Status DC Pantoprazole Sodium (Protonix) 40 mg BIDAC PO Last administered on 08/08/21at 09:07; Start 08/08/21 at 07:30; Stop 08/08/21 at 09:56; Status DC Influenza Virus Vaccine Quadrival (Flulaval Quad Syringe) 0.5 ml ONCE ONCE VAX IM ; Start 08/07/21 at 09:00; Stop 08/07/21 at 09:01; Status Cancel Influenza Virus Vaccine Quadrival (Flulaval Quad [id number] Syringe) 0.5 ml ONCE ONCE VAX IM ; Start 08/08/21 at 09:00; Stop 08/08/21 at 09:01; Status DC Pantoprazole Sodium (PROTONIX VIAL for IV PUSH) 40 mg BIDAC IVP ; Start 08/08/21 at 16:30 Fentanyl Citrate (Fentanyl 2ml Vial) 50 mcg PRN Q2HR PRN IVP PAIN Last administered on 08/08/21at 10:34; Start 08/08/21 at 10:15 Active Scripts Active Admelog (Insulin Lispro) 100 Unit/1 Ml Vial 0 Units SQ TIDWMEALS 10 Days Omeprazole 40 Mg Capsule. 1 Cap PO BID Reported Sevelamer HCl 800 Mg Tablet 800 Mg PO BID MDD Oxycodone-Acetaminophn 7.5-325 (Oxycodone HCl/Acetaminophen) 1 Each Tablet 1 Tab PO QID PRN Carvedilol 25 Mg Tablet 25 Mg PO BIDWMEALS Allergies Allergies: Coded Allergies: No Known Drug Allergies (Unverified , 06/19/21) ROS General: YES: Fatigue, Malaise, Appetite PSYCHOLOGICAL ROS: YES: Anxiety, Depression Eyes: Yes Decreased vision HEENT: YES: Heacaches ALLERGY AND IMMUNOLOGY: YES: Seasonal Allergies Hematological and Lymphatic: YES: Bleeding Problems Respiratory: YES: Cough Gastrointestinal: Yes Nausea, Yes Hematochezia Genitourinary: YES Other (ANURIA) Musculoskeletal: Yes Muscular Weakness Neurological: Yes Dizziness, Yes Weakness Skin: Yes Dry Skin Physical Exam General: Alert, Oriented X3, Cooperative, No acute distress HEENT: Atraumatic, PERRLA Lungs: Clear to auscultation Heart: Regular rate Abdomen: Normal bowel sounds, Soft, No tenderness Skin: No rashes Neuro: Normal speech Psych/Mental Status: Mental status NL, Other (FLAT AFFECT) MUSCULOSKELETAL: No joint tenderness, No deformity, No swelling Vitals VITALS Vital Signs Date Time Temp Pulse Resp B/P (MAP) Pulse Ox O2 Delivery O2 Flow Rate FiO2 08/08/21 10:34 99 Room Air 08/08/21 10:00 77 17 176/72 (106) 08/08/21 08:00 98.0 98.0 Labs Labs Laboratory Tests Test 08/07/21 19:44 08/07/21 20:00 08/07/21 20:35 08/08/21 05:40 Sodium Level 139 mmol/L (136-145) 137 mmol/L (136-145) Potassium Level 6.0 mmol/L (3.5-5.1) 5.8 mmol/L (3.5-5.1) Chloride Level 97 mmol/L (98-107) 98 mmol/L (98-107) Carbon Dioxide Level 24 mmol/L (21-32) 25 mmol/L (21-32) Anion Gap 18 (6-14) 14 (6-14) Blood Urea Nitrogen 80 mg/dL (7-20) 79 mg/dL (7-20) Creatinine 8.5 mg/dL (0.6-1.0) 8.7 mg/dL (0.6-1.0) Estimated GFR (Cockcroft-Gault) 5.7 5.5 BUN/Creatinine Ratio 9 (6-20) 9 (6-20) Glucose Level 104 mg/dL (70-99) 76 mg/dL (70-99) Lactic Acid Level 1.5 mmol/L (0.4-2.0) Calcium Level 8.2 mg/dL (8.5-10.1) 7.6 mg/dL (8.5-10.1) Phosphorus Level 4.6 mg/dL (2.6-4.7) Magnesium Level 2.1 mg/dL (1.8-2.4) Total Bilirubin 0.5 mg/dL (0.2-1.0) 0.8 mg/dL (0.2-1.0) Aspartate Amino Transf (AST/SGOT) 40 U/L (15-37) 23 U/L (15-37) Alanine Aminotransferase (ALT/SGPT) 23 U/L (14-59) 13 U/L (14-59) Alkaline Phosphatase 158 U/L (46-116) 134 U/L (46-116) Troponin I Quantitative 0.026 ng/mL (0.000-0.055) VE-Bal-P-Type Natriuretic Peptide > 84627 pg/mL (0-124) Total Protein 7.1 g/dL (6.4-8.2) 6.3 g/dL (6.4-8.2) Albumin 2.9 g/dL (3.4-5.0) 2.5 g/dL (3.4-5.0) Albumin/Globulin Ratio 0.7 (1.0-1.7) 0.7 (1.0-1.7) Lipase 252 U/L (73-393) White Blood Count 4.8 x10^3/uL (4.0-11.0) 4.4 x10^3/uL (4.0-11.0) Red Blood Count 1.69 x10^6/uL (3.50-5.40) 2.31 x10^6/uL (3.50-5.40) Hemoglobin 5.8 g/dL (12.0-15.5) 7.2 g/dL (12.0-15.5) Hematocrit 17.1 % (36.0-47.0) 21.3 % (36.0-47.0) Mean Corpuscular Volume 101 fL (79-100) 92 fL (79-100) Mean Corpuscular Hemoglobin 34 pg (25-35) 31 pg (25-35) Mean Corpuscular Hemoglobin Concent 34 g/dL (31-37) 34 g/dL (31-37) Red Cell Distribution Width 23.0 % (11.5-14.5) 25.7 % (11.5-14.5) Platelet Count 171 x10^3/uL (140-400) 129 x10^3/uL (140-400) Neutrophils (%) (Auto) 62 % (31-73) 54 % (31-73) Lymphocytes (%) (Auto) 22 % (24-48) 28 % (24-48) Monocytes (%) (Auto) 13 % (0-9) 14 % (0-9) Eosinophils (%) (Auto) 2 % (0-3) 2 % (0-3) Basophils (%) (Auto) 1 % (0-3) 1 % (0-3) Neutrophils # (Auto) 3.0 x10^3/uL (1.8-7.7) 2.4 x10^3/uL (1.8-7.7) Lymphocytes # (Auto) 1.1 x10^3/uL (1.0-4.8) 1.2 x10^3/uL (1.0-4.8) Monocytes # (Auto) 0.6 x10^3/uL (0.0-1.1) 0.6 x10^3/uL (0.0-1.1) Eosinophils # (Auto) 0.1 x10^3/uL (0.0-0.7) 0.1 x10^3/uL (0.0-0.7) Basophils # (Auto) 0.1 x10^3/uL (0.0-0.2) 0.0 x10^3/uL (0.0-0.2) Platelet Estimate Adequate (ADEQUATE) Hypochromasia Slight Poikilocytosis Slight Microcytosis Slight Macrocytosis Slight Target Cells Occ Ovalocytes Occ Rouleau Present Stool Occult Blood Positive (NEG) Test 08/08/21 10:37 Glucose (Fingerstick) 70 mg/dL (70-99) Laboratory Tests Test 08/07/21 19:44 08/07/21 20:00 08/07/21 20:35 08/08/21 05:40 Sodium Level 139 mmol/L (136-145) 137 mmol/L (136-145) Potassium Level 6.0 mmol/L (3.5-5.1) 5.8 mmol/L (3.5-5.1) Chloride Level 97 mmol/L (98-107) 98 mmol/L (98-107) Carbon Dioxide Level 24 mmol/L (21-32) 25 mmol/L (21-32) Anion Gap 18 (6-14) 14 (6-14) Blood Urea Nitrogen 80 mg/dL (7-20) 79 mg/dL (7-20) Creatinine 8.5 mg/dL (0.6-1.0) 8.7 mg/dL (0.6-1.0) Estimated GFR (Cockcroft-Gault) 5.7 5.5 BUN/Creatinine Ratio 9 (6-20) 9 (6-20) Glucose Level 104 mg/dL (70-99) 76 mg/dL (70-99) Lactic Acid Level 1.5 mmol/L (0.4-2.0) Calcium Level 8.2 mg/dL (8.5-10.1) 7.6 mg/dL (8.5-10.1) Phosphorus Level 4.6 mg/dL (2.6-4.7) Magnesium Level 2.1 mg/dL (1.8-2.4) Total Bilirubin 0.5 mg/dL (0.2-1.0) 0.8 mg/dL (0.2-1.0) Aspartate Amino Transf (AST/SGOT) 40 U/L (15-37) 23 U/L (15-37) Alanine Aminotransferase (ALT/SGPT) 23 U/L (14-59) 13 U/L (14-59) Alkaline Phosphatase 158 U/L (46-116) 134 U/L (46-116) Troponin I Quantitative 0.026 ng/mL (0.000-0.055) SW-Ejg-O-Type Natriuretic Peptide > 97398 pg/mL (0-124) Total Protein 7.1 g/dL (6.4-8.2) 6.3 g/dL (6.4-8.2) Albumin 2.9 g/dL (3.4-5.0) 2.5 g/dL (3.4-5.0) Albumin/Globulin Ratio 0.7 (1.0-1.7) 0.7 (1.0-1.7) Lipase 252 U/L (73-393) White Blood Count 4.8 x10^3/uL (4.0-11.0) 4.4 x10^3/uL (4.0-11.0) Red Blood Count 1.69 x10^6/uL (3.50-5.40) 2.31 x10^6/uL (3.50-5.40) Hemoglobin 5.8 g/dL (12.0-15.5) 7.2 g/dL (12.0-15.5) Hematocrit 17.1 % (36.0-47.0) 21.3 % (36.0-47.0) Mean Corpuscular Volume 101 fL (79-100) 92 fL (79-100) Mean Corpuscular Hemoglobin 34 pg (25-35) 31 pg (25-35) Mean Corpuscular Hemoglobin Concent 34 g/dL (31-37) 34 g/dL (31-37) Red Cell Distribution Width 23.0 % (11.5-14.5) 25.7 % (11.5-14.5) Platelet Count 171 x10^3/uL (140-400) 129 x10^3/uL (140-400) Neutrophils (%) (Auto) 62 % (31-73) 54 % (31-73) Lymphocytes (%) (Auto) 22 % (24-48) 28 % (24-48) Monocytes (%) (Auto) 13 % (0-9) 14 % (0-9) Eosinophils (%) (Auto) 2 % (0-3) 2 % (0-3) Basophils (%) (Auto) 1 % (0-3) 1 % (0-3) Neutrophils # (Auto) 3.0 x10^3/uL (1.8-7.7) 2.4 x10^3/uL (1.8-7.7) Lymphocytes # (Auto) 1.1 x10^3/uL (1.0-4.8) 1.2 x10^3/uL (1.0-4.8) Monocytes # (Auto) 0.6 x10^3/uL (0.0-1.1) 0.6 x10^3/uL (0.0-1.1) Eosinophils # (Auto) 0.1 x10^3/uL (0.0-0.7) 0.1 x10^3/uL (0.0-0.7) Basophils # (Auto) 0.1 x10^3/uL (0.0-0.2) 0.0 x10^3/uL (0.0-0.2) Platelet Estimate Adequate (ADEQUATE) Hypochromasia Slight Poikilocytosis Slight Microcytosis Slight Macrocytosis Slight Target Cells Occ Ovalocytes Occ Rouleau Present Stool Occult Blood Positive (NEG) Test 08/08/21 10:37 Glucose (Fingerstick) 70 mg/dL (70-99) Assessment/Plan Assessment/Plan IMP HYPERKALEMIA ANEMIA GI BLEED ESRD-TTS DM II HTN PLAN PRBC EPOGEN HD TODAY UF TO TW ENC COMPLIANCE WILL FOLLOW LINNEA SHULTZ MD Aug 08, 2021 10:45
[2021-08-08 10:54] LABS: HEMATOCRIT 22.3 % (36.0-47.0); HEMOGLOBIN 7.6 g/dL (12.0-15.5); RED BLOOD COUNT 2.41 x10^6/uL (3.50-5.40); RED CELL DISTRIBUTION WIDTH 26.6 % (11.5-14.5)
[2021-08-08] MEDS: diphenhydrAMINE HCL 25 MG CAPSULE PO PRN ×2 (13:39→15:22)
[2021-08-08] MEDS ORDERED: diphenhydrAMINE 50 MG/ML VIAL IV PRN (14:00)
[2021-08-08] MEDS ORDERED: DIALYSIS PATIENT. MC PRN ×2 (15:15)
--- NOTE | 2021-08-08 16:01 | NUR ---
SS following for discharge planning. SS reviewed pt chart and discussed with pt N. Pt is from home and is currently on room air. Pt has outpatient hemodialysis at [facility], ; fax [phone], Saturday, , and Saturday. Pt was previously on services with [facility]. GI and Nephrology consulted. Pt on clear liquid diet. Pt requested to complete DPOA paperwork. SS met with pt and completed DPOA Paperwork for daughter, Imani Bronson, . Copy placed in chart. Pt requesting to remain a Full Code at this time. SS will continue to follow for discharge planning.
[2021-08-08] MEDS: oxyCODONE/APAP 7.5/325 1 TAB TABLET PO PRN (16:24)
[2021-08-08] MEDS: PANTOPRAZOLE IV PUSH 40 MG VIAL. IVP SCH (18:35)
[2021-08-09] VITALS (11 sets, daily range): BP systolic 126–166; BP diastolic 57–85
[2021-08-09] MEDS: oxyCODONE/APAP 7.5/325 1 TAB TABLET PO PRN ×2 (04:31→19:31)
[2021-08-09 05:04] LABS: BASO % 1 % (0-3); EOS # 0.1 x10^3/uL (0.0-0.7); EOS % 3 % (0-3); LYMPH # 0.9 x10^3/uL (1.0-4.8); LYMPH % 26 % (24-48); MEAN CORPUSCULAR HEMOGLOBIN 32 pg (25-35); MEAN CORPUSCULAR HGB CONC 34 g/dL (31-37); MEAN CORPUSCULAR VOLUME 93 fL (79-100); MONO # 0.4 x10^3/uL (0.0-1.1); MONO % 12 % (0-9); NEUT % 58 % (31-73); PLATELET COUNT 97 x10^3/uL (140-400); RED BLOOD COUNT 2.12 x10^6/uL (3.50-5.40); RED CELL DISTRIBUTION WIDTH 26.1 % (11.5-14.5); WHITE BLOOD COUNT 3.3 x10^3/uL (4.0-11.0)
[2021-08-09 05:05] LABS: HEMATOCRIT 19.8 % (36.0-47.0); HEMOGLOBIN 6.8 g/dL (12.0-15.5)
[2021-08-09 07:50] LABS: ALBUMIN 2.4 g/dL (3.4-5.0); ALBUMIN/GLOBULIN RATIO 0.6 (1.0-1.7); CREATININE 6.3 mg/dL (0.6-1.0); POTASSIUM 4.8 mmol/L (3.5-5.1); TOTAL BILIRUBIN 0.5 mg/dL (0.2-1.0); TOTAL PROTEIN 6.3 g/dL (6.4-8.2)
[2021-08-09] MEDS: INSULIN LISPRO 300 UNITS/3 ML VIAL. SQ SCH ×3 (08:00→16:45)
[2021-08-09] MEDS: PANTOPRAZOLE IV PUSH 40 MG VIAL. IVP SCH (08:22)
[2021-08-09] MEDS: SEVELAMER CARBONATE 800 MG TABLET. PO SCH ×2 (08:22→16:46)
[2021-08-09] MEDS: VITAMIN B12,B9,B6 COMPLEX 1 TABLET. PO SCH (08:22)
--- NOTE | 2021-08-09 09:48 | PDOC ---
G I PROGRESS NOTE Subjective Says pain better. Still umbilical and present. Tolerating clears. Scant red stool per staff. Physical Exam Lungs clear anteriorly. RRR Abdomen soft, not distended. Some umbilical tenderness. Review of Relevant I have reviewed the following items tamika (where applicable) has been applied. Labs Laboratory Tests Test 08/07/21 19:44 08/07/21 20:00 08/07/21 20:35 08/08/21 05:40 Sodium Level 139 mmol/L (136-145) 137 mmol/L (136-145) Potassium Level 6.0 mmol/L (3.5-5.1) 5.8 mmol/L (3.5-5.1) Chloride Level 97 mmol/L (98-107) 98 mmol/L (98-107) Carbon Dioxide Level 24 mmol/L (21-32) 25 mmol/L (21-32) Anion Gap 18 (6-14) 14 (6-14) Blood Urea Nitrogen 80 mg/dL (7-20) 79 mg/dL (7-20) Creatinine 8.5 mg/dL (0.6-1.0) 8.7 mg/dL (0.6-1.0) Estimated GFR (Cockcroft-Gault) 5.7 5.5 BUN/Creatinine Ratio 9 (6-20) 9 (6-20) Glucose Level 104 mg/dL (70-99) 76 mg/dL (70-99) Lactic Acid Level 1.5 mmol/L (0.4-2.0) Calcium Level 8.2 mg/dL (8.5-10.1) 7.6 mg/dL (8.5-10.1) Phosphorus Level 4.6 mg/dL (2.6-4.7) Magnesium Level 2.1 mg/dL (1.8-2.4) Total Bilirubin 0.5 mg/dL (0.2-1.0) 0.8 mg/dL (0.2-1.0) Aspartate Amino Transf (AST/SGOT) 40 U/L (15-37) 23 U/L (15-37) Alanine Aminotransferase (ALT/SGPT) 23 U/L (14-59) 13 U/L (14-59) Alkaline Phosphatase 158 U/L (46-116) 134 U/L (46-116) Troponin I Quantitative 0.026 ng/mL (0.000-0.055) FZ-Nla-K-Type Natriuretic Peptide > 35266 pg/mL (0-124) Total Protein 7.1 g/dL (6.4-8.2) 6.3 g/dL (6.4-8.2) Albumin 2.9 g/dL (3.4-5.0) 2.5 g/dL (3.4-5.0) Albumin/Globulin Ratio 0.7 (1.0-1.7) 0.7 (1.0-1.7) Lipase 252 U/L (73-393) White Blood Count 4.8 x10^3/uL (4.0-11.0) 4.4 x10^3/uL (4.0-11.0) Red Blood Count 1.69 x10^6/uL (3.50-5.40) 2.31 x10^6/uL (3.50-5.40) Hemoglobin 5.8 g/dL (12.0-15.5) 7.2 g/dL (12.0-15.5) Hematocrit 17.1 % (36.0-47.0) 21.3 % (36.0-47.0) Mean Corpuscular Volume 101 fL (79-100) 92 fL (79-100) Mean Corpuscular Hemoglobin 34 pg (25-35) 31 pg (25-35) Mean Corpuscular Hemoglobin Concent 34 g/dL (31-37) 34 g/dL (31-37) Red Cell Distribution Width 23.0 % (11.5-14.5) 25.7 % (11.5-14.5) Platelet Count 171 x10^3/uL (140-400) 129 x10^3/uL (140-400) Neutrophils (%) (Auto) 62 % (31-73) 54 % (31-73) Lymphocytes (%) (Auto) 22 % (24-48) 28 % (24-48) Monocytes (%) (Auto) 13 % (0-9) 14 % (0-9) Eosinophils (%) (Auto) 2 % (0-3) 2 % (0-3) Basophils (%) (Auto) 1 % (0-3) 1 % (0-3) Neutrophils # (Auto) 3.0 x10^3/uL (1.8-7.7) 2.4 x10^3/uL (1.8-7.7) Lymphocytes # (Auto) 1.1 x10^3/uL (1.0-4.8) 1.2 x10^3/uL (1.0-4.8) Monocytes # (Auto) 0.6 x10^3/uL (0.0-1.1) 0.6 x10^3/uL (0.0-1.1) Eosinophils # (Auto) 0.1 x10^3/uL (0.0-0.7) 0.1 x10^3/uL (0.0-0.7) Basophils # (Auto) 0.1 x10^3/uL (0.0-0.2) 0.0 x10^3/uL (0.0-0.2) Platelet Estimate Adequate (ADEQUATE) Hypochromasia Slight Poikilocytosis Slight Microcytosis Slight Macrocytosis Slight Target Cells Occ Ovalocytes Occ Rouleau Present Stool Occult Blood Positive (NEG) Test 08/08/21 10:37 08/08/21 10:45 08/09/21 04:35 08/09/21 08:05 Glucose (Fingerstick) 70 mg/dL (70-99) 47 mg/dL (70-99) White Blood Count 4.0 x10^3/uL (4.0-11.0) 3.3 x10^3/uL (4.0-11.0) Red Blood Count 2.41 x10^6/uL (3.50-5.40) 2.12 x10^6/uL (3.50-5.40) Hemoglobin 7.6 g/dL (12.0-15.5) 6.8 g/dL (12.0-15.5) Hematocrit 22.3 % (36.0-47.0) 19.8 % (36.0-47.0) Mean Corpuscular Volume 93 fL (79-100) 93 fL (79-100) Mean Corpuscular Hemoglobin 32 pg (25-35) 32 pg (25-35) Mean Corpuscular Hemoglobin Concent 34 g/dL (31-37) 34 g/dL (31-37) Red Cell Distribution Width 26.6 % (11.5-14.5) 26.1 % (11.5-14.5) Platelet Count 131 x10^3/uL (140-400) 97 x10^3/uL (140-400) Neutrophils (%) (Auto) 58 % (31-73) Lymphocytes (%) (Auto) 26 % (24-48) Monocytes (%) (Auto) 12 % (0-9) Eosinophils (%) (Auto) 3 % (0-3) Basophils (%) (Auto) 1 % (0-3) Neutrophils # (Auto) 2.0 x10^3/uL (1.8-7.7) Lymphocytes # (Auto) 0.9 x10^3/uL (1.0-4.8) Monocytes # (Auto) 0.4 x10^3/uL (0.0-1.1) Eosinophils # (Auto) 0.1 x10^3/uL (0.0-0.7) Basophils # (Auto) 0.0 x10^3/uL (0.0-0.2) Sodium Level 136 mmol/L (136-145) Potassium Level 4.8 mmol/L (3.5-5.1) Chloride Level 98 mmol/L (98-107) Carbon Dioxide Level 26 mmol/L (21-32) Anion Gap 12 (6-14) Blood Urea Nitrogen 54 mg/dL (7-20) Creatinine 6.3 mg/dL (0.6-1.0) Estimated GFR (Cockcroft-Gault) 8.0 BUN/Creatinine Ratio 9 (6-20) Glucose Level 66 mg/dL (70-99) Calcium Level 8.0 mg/dL (8.5-10.1) Total Bilirubin 0.5 mg/dL (0.2-1.0) Aspartate Amino Transf (AST/SGOT) 30 U/L (15-37) Alanine Aminotransferase (ALT/SGPT) 14 U/L (14-59) Alkaline Phosphatase 108 U/L (46-116) Total Protein 6.3 g/dL (6.4-8.2) Albumin 2.4 g/dL (3.4-5.0) Albumin/Globulin Ratio 0.6 (1.0-1.7) Test 08/09/21 08:26 Glucose (Fingerstick) 124 mg/dL (70-99) Laboratory Tests Test 08/08/21 10:37 08/08/21 10:45 08/09/21 04:35 08/09/21 08:05 Glucose (Fingerstick) 70 mg/dL (70-99) 47 mg/dL (70-99) White Blood Count 4.0 x10^3/uL (4.0-11.0) 3.3 x10^3/uL (4.0-11.0) Red Blood Count 2.41 x10^6/uL (3.50-5.40) 2.12 x10^6/uL (3.50-5.40) Hemoglobin 7.6 g/dL (12.0-15.5) 6.8 g/dL (12.0-15.5) Hematocrit 22.3 % (36.0-47.0) 19.8 % (36.0-47.0) Mean Corpuscular Volume 93 fL (79-100) 93 fL (79-100) Mean Corpuscular Hemoglobin 32 pg (25-35) 32 pg (25-35) Mean Corpuscular Hemoglobin Concent 34 g/dL (31-37) 34 g/dL (31-37) Red Cell Distribution Width 26.6 % (11.5-14.5) 26.1 % (11.5-14.5) Platelet Count 131 x10^3/uL (140-400) 97 x10^3/uL (140-400) Neutrophils (%) (Auto) 58 % (31-73) Lymphocytes (%) (Auto) 26 % (24-48) Monocytes (%) (Auto) 12 % (0-9) Eosinophils (%) (Auto) 3 % (0-3) Basophils (%) (Auto) 1 % (0-3) Neutrophils # (Auto) 2.0 x10^3/uL (1.8-7.7) Lymphocytes # (Auto) 0.9 x10^3/uL (1.0-4.8) Monocytes # (Auto) 0.4 x10^3/uL (0.0-1.1) Eosinophils # (Auto) 0.1 x10^3/uL (0.0-0.7) Basophils # (Auto) 0.0 x10^3/uL (0.0-0.2) Sodium Level 136 mmol/L (136-145) Potassium Level 4.8 mmol/L (3.5-5.1) Chloride Level 98 mmol/L (98-107) Carbon Dioxide Level 26 mmol/L (21-32) Anion Gap 12 (6-14) Blood Urea Nitrogen 54 mg/dL (7-20) Creatinine 6.3 mg/dL (0.6-1.0) Estimated GFR (Cockcroft-Gault) 8.0 BUN/Creatinine Ratio 9 (6-20) Glucose Level 66 mg/dL (70-99) Calcium Level 8.0 mg/dL (8.5-10.1) Total Bilirubin 0.5 mg/dL (0.2-1.0) Aspartate Amino Transf (AST/SGOT) 30 U/L (15-37) Alanine Aminotransferase (ALT/SGPT) 14 U/L (14-59) Alkaline Phosphatase 108 U/L (46-116) Total Protein 6.3 g/dL (6.4-8.2) Albumin 2.4 g/dL (3.4-5.0) Albumin/Globulin Ratio 0.6 (1.0-1.7) Test 08/09/21 08:26 Glucose (Fingerstick) 124 mg/dL (70-99) Vitals/I & O Vital Sign - Last 24 Hours 08/08/21 08/08/21 08/08/21 08/08/21 10:00 10:34 11:00 11:00 Pulse 77 79 Resp 17 20 B/P (MAP) 176/72 (106) 156/76 (102) Pulse Ox 97 99 99 99 O2 Delivery Room Air Room Air Room Air Room Air 08/08/21 08/08/21 08/08/21 08/08/21 12:00 12:00 13:00 14:00 Temp 98.8 98.8 Pulse 78 75 77 Resp 26 16 20 B/P (MAP) 153/61 (91) 168/64 (98) 165/66 (99) Pulse Ox 99 100 100 O2 Delivery Room Air Room Air Room Air Room Air 08/08/21 08/08/21 08/08/21 08/08/21 15:00 16:00 16:00 16:24 Temp 98.6 98.6 Pulse 77 84 Resp 28 24 26 B/P (MAP) 133/51 (78) 131/65 (87) Pulse Ox 99 96 99 O2 Delivery Room Air Room Air Room Air Room Air 08/08/21 08/08/21 08/08/21 08/08/21 17:00 18:00 18:00 20:00 Pulse 79 74 75 Resp 22 28 22 B/P (MAP) 128/55 (79) 129/82 (98) 140/66 (90) Pulse Ox 99 99 100 100 O2 Delivery Room Air Room Air Room Air Room Air 08/08/21 08/09/21 08/09/21 08/09/21 21:00 00:00 04:00 04:31 Temp 98.2 98.2 Pulse 72 75 Resp 18 16 24 B/P (MAP) 144/59 (87) 147/62 (90) Pulse Ox 99 97 99 O2 Delivery Room Air Room Air Room Air 08/09/21 08/09/21 08/09/21 08/09/21 05:01 07:55 08:00 08:10 Temp 98.0 98.4 98.0 98.4 Pulse 71 70 Resp 22 18 17 B/P (MAP) 161/65 155/64 Pulse Ox 98 O2 Delivery Room Air Room Air 08/09/21 09:10 Temp 98.4 98.4 Pulse 73 Resp 17 B/P (MAP) 146/68 Intake and Output 08/08/21 08/08/21 08/09/21 15:00 23:00 07:00 Intake Total 350 ml 60 ml Output Total 0 ml Balance 350 ml 60 ml Images Unable to locate radiologist to review CT. Module in [place] not working. Problem List Problems Medical Problems: (1) Anemia Status: Chronic Assessment Bleeding seems to have slowed if not stopped. History favors LGI source. Fairly recent colonoscopy per her at [facility] w/o diverticula, polyps, etc. Given pain location, small bowel issue? H/o , UGI Dieulafoy's. With non-bloody emesis these don't seem to be source of issues at this time. Plan of Care Note Continue clears. PO PPI. Out of ICU OK with me. Monitor hemoglobin. Will try as able to review CT. Not clear to me just what her baseline hemoglobin is these days. Justicifation of Admission Dx: Justifications for Admission: Justification of Admission Dx: N/A Acute Renal Failure: Serum Cr > 4mg/dL Chronic Renal Failure: Hemodynamic Instability Sepsis: Infection HAYDER MARLOW MD Aug 09, 2021 09:47
[2021-08-09] MEDS: fentaNYL PF VIAL 100 MCG/2 ML VIAL IVP PRN (09:49)
--- NOTE | 2021-08-09 10:49 | PDOC ---
Renal-Progress Notes Subjective Notes Notes NO NEW COMPLAINTS History of Present Illness Hx of present illness STABLE Vitals Vitals Vital Signs Date Time Temp Pulse Resp B/P (MAP) Pulse Ox O2 Delivery O2 Flow Rate FiO2 08/09/21 10:00 98.6 73 16 155/63 98.6 08/09/21 09:49 100 Room Air Weight Weight [ ] I.O. Intake and Output Intake and Output 08/09/21 07:00 Intake Total 410 ml Output Total 0 ml Balance 410 ml Intake Oral 410 ml Output Urine Total 0 ml Labs Labs Laboratory Tests Test 08/09/21 04:35 08/09/21 08:05 08/09/21 08:26 White Blood Count 3.3 x10^3/uL (4.0-11.0) Red Blood Count 2.12 x10^6/uL (3.50-5.40) Hemoglobin 6.8 g/dL (12.0-15.5) Hematocrit 19.8 % (36.0-47.0) Mean Corpuscular Volume 93 fL (79-100) Mean Corpuscular Hemoglobin 32 pg (25-35) Mean Corpuscular Hemoglobin Concent 34 g/dL (31-37) Red Cell Distribution Width 26.1 % (11.5-14.5) Platelet Count 97 x10^3/uL (140-400) Neutrophils (%) (Auto) 58 % (31-73) Lymphocytes (%) (Auto) 26 % (24-48) Monocytes (%) (Auto) 12 % (0-9) Eosinophils (%) (Auto) 3 % (0-3) Basophils (%) (Auto) 1 % (0-3) Neutrophils # (Auto) 2.0 x10^3/uL (1.8-7.7) Lymphocytes # (Auto) 0.9 x10^3/uL (1.0-4.8) Monocytes # (Auto) 0.4 x10^3/uL (0.0-1.1) Eosinophils # (Auto) 0.1 x10^3/uL (0.0-0.7) Basophils # (Auto) 0.0 x10^3/uL (0.0-0.2) Sodium Level 136 mmol/L (136-145) Potassium Level 4.8 mmol/L (3.5-5.1) Chloride Level 98 mmol/L (98-107) Carbon Dioxide Level 26 mmol/L (21-32) Anion Gap 12 (6-14) Blood Urea Nitrogen 54 mg/dL (7-20) Creatinine 6.3 mg/dL (0.6-1.0) Estimated GFR (Cockcroft-Gault) 8.0 BUN/Creatinine Ratio 9 (6-20) Glucose Level 66 mg/dL (70-99) Calcium Level 8.0 mg/dL (8.5-10.1) Total Bilirubin 0.5 mg/dL (0.2-1.0) Aspartate Amino Transf (AST/SGOT) 30 U/L (15-37) Alanine Aminotransferase (ALT/SGPT) 14 U/L (14-59) Alkaline Phosphatase 108 U/L (46-116) Total Protein 6.3 g/dL (6.4-8.2) Albumin 2.4 g/dL (3.4-5.0) Albumin/Globulin Ratio 0.6 (1.0-1.7) Glucose (Fingerstick) 47 mg/dL (70-99) 124 mg/dL (70-99) Review of Systems Constitutional: yes: weakness, alert, oriented Ears/Nose/Throat: Yes: no symptom reported Eyes: Yes: no symptom reported Pulmonary: Yes no symptom reported Gastrointestional: Yes: nausea, abdominal pain Genitourinary: Yes: no symptom reported Musculoskeletal: Yes: no symptom reported Skin: Yes no symptom reported Psychiatric/Neurological: Yes: no symptom reported Endocrine: Yes: no symptom reported Physical Exam General Appearance: no apparent distress, febrile Respiratory: bilateral CTA Heart: S1S2, RRR Abdomen: soft, bowel sounds present Genitourinary: bladder flat Extremities: pulses present Neurology: alert, oriented Assessment Assessment IMP HYPERKALEMIA ANEMIA GI BLEED ESRD-TTS DM II HTN PLAN PRBC EPOGEN HD TOMORROW GI EVALUATION AND TX ENC COMPLIANCE WILL FOLLOW LINNEA SHULTZ MD Aug 09, 2021 10:49
--- NOTE | 2021-08-09 13:00 | PDOC ---
[facility] [facility] PROGRESS NOTE Date of Service DOS: DATE: 08/09/21 TIME: 12:59 Chief Complaint Chief Complaint acute GI bleed with acute abdominal pain ESRD, non compliance with HD schedule acute on chronic abd pain, home narcotic pain meds moderate malnutriotn CHF, fluid overload hyperkalemia, acidosis, non-compliance with HD acute blood loss anemia, s/p 2 u PRBC, Hyperkalemia, hemodialysis History of Present Illness History of Present Illness 2 u prbc hgb better pain better try to transfer out of ICU IV pain meds, the PO pain meds are not working for her. Vitals/I&O Vitals/I&O: Vital Signs Date Time Temp Pulse Resp B/P (MAP) Pulse Ox O2 Delivery O2 Flow Rate FiO2 08/09/21 11:40 98.6 70 14 157/85 (109) 100 Room Air 98.6 I & O 08/08/21 08/08/21 08/09/21 15:00 23:00 07:00 Intake Total 350 ml 60 ml Output Total 0 ml Balance 350 ml 60 ml Physical Exam General: Alert, Oriented X3, Cooperative, No acute distress Heart: Regular rate Lungs: Clear Abdomen: Normal bowel sounds, Soft, No tenderness Extremities: No cyanosis, No edema Skin: No rashes Labs Labs: Laboratory Tests Test 08/09/21 04:35 08/09/21 08:05 08/09/21 08:26 08/09/21 12:04 White Blood Count 3.3 x10^3/uL (4.0-11.0) Red Blood Count 2.12 x10^6/uL (3.50-5.40) Hemoglobin 6.8 g/dL (12.0-15.5) Hematocrit 19.8 % (36.0-47.0) Mean Corpuscular Volume 93 fL (79-100) Mean Corpuscular Hemoglobin 32 pg (25-35) Mean Corpuscular Hemoglobin Concent 34 g/dL (31-37) Red Cell Distribution Width 26.1 % (11.5-14.5) Platelet Count 97 x10^3/uL (140-400) Neutrophils (%) (Auto) 58 % (31-73) Lymphocytes (%) (Auto) 26 % (24-48) Monocytes (%) (Auto) 12 % (0-9) Eosinophils (%) (Auto) 3 % (0-3) Basophils (%) (Auto) 1 % (0-3) Neutrophils # (Auto) 2.0 x10^3/uL (1.8-7.7) Lymphocytes # (Auto) 0.9 x10^3/uL (1.0-4.8) Monocytes # (Auto) 0.4 x10^3/uL (0.0-1.1) Eosinophils # (Auto) 0.1 x10^3/uL (0.0-0.7) Basophils # (Auto) 0.0 x10^3/uL (0.0-0.2) Sodium Level 136 mmol/L (136-145) Potassium Level 4.8 mmol/L (3.5-5.1) Chloride Level 98 mmol/L (98-107) Carbon Dioxide Level 26 mmol/L (21-32) Anion Gap 12 (6-14) Blood Urea Nitrogen 54 mg/dL (7-20) Creatinine 6.3 mg/dL (0.6-1.0) Estimated GFR (Cockcroft-Gault) 8.0 BUN/Creatinine Ratio 9 (6-20) Glucose Level 66 mg/dL (70-99) Calcium Level 8.0 mg/dL (8.5-10.1) Total Bilirubin 0.5 mg/dL (0.2-1.0) Aspartate Amino Transf (AST/SGOT) 30 U/L (15-37) Alanine Aminotransferase (ALT/SGPT) 14 U/L (14-59) Alkaline Phosphatase 108 U/L (46-116) Total Protein 6.3 g/dL (6.4-8.2) Albumin 2.4 g/dL (3.4-5.0) Albumin/Globulin Ratio 0.6 (1.0-1.7) Glucose (Fingerstick) 47 mg/dL (70-99) 124 mg/dL (70-99) 98 mg/dL (70-99) Assessment and Plan Assessmemt and Plan Problems Medical Problems: (1) Anemia Status: Chronic Comment Review of Relevant I have reviewed the following items tamika (where applicable) has been applied. Medications: Current Medications Medications (Trade) Dose Ordered Sig/Kimberly Route PRN Reason Start Time Stop Time Status Last Admin Dose Admin Pantoprazole Sodium (PROTONIX VIAL for IV PUSH) 40 mg BIDAC IVP 08/08/21 16:30 08/09/21 09:49 DC 08/09/21 08:22 Diphenhydramine HCl (Benadryl) 25 mg PRN Q6HRS PRN PO ITCHING 08/08/21 13:45 08/08/21 15:22 Justifications for Admission Other Justification Hyperkalemia, hemodialysis ELIZABETH GONZALEZ MD Aug 09, 2021 13:00
[2021-08-09 14:48] LABS: HEMATOCRIT 23.7 % (36.0-47.0); HEMOGLOBIN 8.1 g/dL (12.0-15.5)
[2021-08-09] MEDS: PANTOPRAZOLE 40 MG TABLET.DR. PO SCH (16:05)
[2021-08-09] MEDS: diphenhydrAMINE HCL 25 MG CAPSULE PO PRN (16:06)
--- NOTE | 2021-08-09 16:37 | NUR ---
SS following up with discharge planning. SS reviewed pt chart and discussed with pt RN. Pt is currently on room air. Pt has outpatient hemodialysis at [facility], ; fax [phone], Saturday, , and Saturday. Pt was previously on services with [facility]. Pt received blood today. Pt transferring to room 580. SS will continue to follow for discharge planning.
[2021-08-09] MEDS: CARVEDILOL 12.5 MG TABLET. PO SCH (17:15)
--- NOTE | 2021-08-09 18:24 | NUR ---
Pt arrived on unit from ICU by bed at 1820 via ICU staff. Pt rating pain at 8/10 in abdomen upon arrival. Bed rails up, bed alarm on, and call light within reach. POC/orders reviewed. Will assume care of this pt.
[2021-08-09] MEDS: EPOETIN ALFA-EPBX for ESRD 20,000 UNIT/ML VIAL. SQ SCH (21:42)
[2021-08-10] MEDS: oxyCODONE/APAP 7.5/325 1 TAB TABLET PO PRN ×4 (01:48→19:59)
[2021-08-10 04:00] VITALS: BP 140/58
[2021-08-10] MEDS: diphenhydrAMINE HCL 25 MG CAPSULE PO PRN ×2 (04:38→19:59)
[2021-08-10 07:00] VITALS: BP_SYST 150; BP_SYST 81; BP_DIAS 21; BP_DIAS 76
--- NOTE | 2021-08-10 07:00 | PDOC ---
[facility] [facility] PROGRESS NOTE Date of Service DOS: DATE: 08/10/21 TIME: 06:42 Chief Complaint Chief Complaint acute GI bleed with acute abdominal pain ESRD, non compliance with HD schedule acute on chronic abd pain, home narcotic pain meds moderate malnutriotn CHF, fluid overload hyperkalemia, acidosis, non-compliance with HD acute blood loss anemia, s/p 2 u PRBC, Hyperkalemia, hemodialysis History of Present Illness History of Present Illness Ms Fernandez is a 64 yo F with rectall bleeding, recent admit here 2 weeks ago with bleeding and GI consujlt and renal folliwng , she has missed HD again, last went last and today has new bright red blood per rectum and marked weakness, she has w/ PMHx ESRD on HD TuThSa, PUD with previous GI bleeding, hypertension, hyperlipidemia, GERD, constipation, rheumatoid arthritis, diabetes, hyperparathyroidism, hep C, cirrhosis, and alcohol abuse in remission. Reports she woke up yesterday morning with bright red blood all over her bed, she estimates at least 16 ounces worth as it soaked her pants and bed covers extensively. It was painless. She did not have recurrence of this throughout the day. She reports she was otherwise asymptomatic until she awoke from sleep this evening with generalized abdominal pain and nausea. She does note she still occasionally drinks alcohol She did receive her first Pfizer COVID-19 vaccination in January, but did not receive her second. H/O COVID 19 - 05/27/2020 positive testing, again on 06/14/2020 positive Previously with GI bleed. Transfused 2u PRBC on 04/06/202108/09: 2 u prbc . hgb better. pain better. try to transfer out of ICU. IV pain meds, the PO pain meds are not working for her. 08/10: Afebrile. Transferred to ICU yesterday. Denies any further bloody stools, hemoglobin 8.3. Per GI, will continue to monitor hemoglobin s/p PRBC. Continue Epogen, HD today. Vitals/I&O Vitals/I&O: Vital Signs Date Time Temp Pulse Resp B/P (MAP) Pulse Ox O2 Delivery O2 Flow Rate FiO2 08/10/21 04:00 97.6 63 20 140/58 (85) 99 Room Air 97.6 I & O 08/09/21 08/09/21 08/10/21 15:00 23:00 07:00 Intake Total 1160 ml 340 ml 250 ml Output Total 0 ml 0 ml 0 ml Balance 1160 ml 340 ml 250 ml Physical Exam General: Alert, Oriented X3, Cooperative, No acute distress Heart: Regular rate Lungs: Clear Abdomen: Normal bowel sounds, Soft, No tenderness Extremities: No cyanosis, No edema Skin: No rashes Labs Labs: Laboratory Tests Test 08/09/21 08:05 08/09/21 08:26 08/09/21 12:04 08/09/21 14:40 Glucose (Fingerstick) 47 mg/dL (70-99) 124 mg/dL (70-99) 98 mg/dL (70-99) Hemoglobin 8.1 g/dL (12.0-15.5) Hematocrit 23.7 % (36.0-47.0) Mean Corpuscular Hemoglobin Concent 34 g/dL (31-37) Test 08/09/21 16:44 08/09/21 19:49 Glucose (Fingerstick) 97 mg/dL (70-99) 94 mg/dL (70-99) Assessment and Plan Assessmemt and Plan Problems Medical Problems: (1) Anemia Status: Chronic Comment Review of Relevant I have reviewed the following items tamika (where applicable) has been applied. Medications: Current Medications Medications (Trade) Dose Ordered Sig/Kimberly Route PRN Reason Start Time Stop Time Status Last Admin Dose Admin Epoetin Bolivar-epbx (RETACRIT for ESRD PTS) 20,000 unit MoWeFr@2100 SQ 08/09/21 21:00 08/09/21 21:42 Pantoprazole Sodium (Protonix) 40 mg BIDAC PO 08/09/21 16:30 08/09/21 16:05 Carvedilol (Coreg) 25 mg BIDWMEALS PO 08/09/21 17:15 08/09/21 17:15 Justifications for Admission Other Justification Hyperkalemia, hemodialysis REMINGTON BACK MD Aug 10, 2021 07:00
[2021-08-10] MEDS ORDERED: IV NORMAL SALINE 1000ML BAG 1,000 ML IV PRN ×2 (07:45)
[2021-08-10] MEDS ORDERED: DIALYSIS PATIENT. MC PRN (07:45)
[2021-08-10] MEDS: PANTOPRAZOLE 40 MG TABLET.DR. PO SCH ×2 (07:51→16:13)
[2021-08-10] MEDS: SEVELAMER CARBONATE 800 MG TABLET. PO SCH ×2 (07:51→16:52)
[2021-08-10] MEDS: CARVEDILOL 12.5 MG TABLET. PO SCH ×2 (08:00→16:53)
[2021-08-10] MEDS: INSULIN LISPRO 300 UNITS/3 ML VIAL. SQ SCH ×3 (08:00→16:50)
[2021-08-10 08:11] LABS: BASO % 1 % (0-3); EOS # 0.1 x10^3/uL (0.0-0.7); EOS % 3 % (0-3); HEMATOCRIT 24.5 % (36.0-47.0); HEMOGLOBIN 8.3 g/dL (12.0-15.5); LYMPH # 0.8 x10^3/uL (1.0-4.8); LYMPH % 25 % (24-48); MEAN CORPUSCULAR HEMOGLOBIN 32 pg (25-35); MEAN CORPUSCULAR HGB CONC 34 g/dL (31-37); MEAN CORPUSCULAR VOLUME 94 fL (79-100); MONO # 0.4 x10^3/uL (0.0-1.1); MONO % 12 % (0-9); NEUT # 1.8 x10^3/uL (1.8-7.7); NEUT % 59 % (31-73); PLATELET COUNT 85 x10^3/uL (140-400); RED BLOOD COUNT 2.61 x10^6/uL (3.50-5.40); RED CELL DISTRIBUTION WIDTH 24.8 % (11.5-14.5); WHITE BLOOD COUNT 3.1 x10^3/uL (4.0-11.0)
[2021-08-10 08:14] LABS: CREATININE 7.1 mg/dL (0.6-1.0); POTASSIUM 5.2 mmol/L (3.5-5.1)
--- NOTE | 2021-08-10 08:29 | NUR ---
This RN nonadministered morning dose of BP med. Pt going to dialysis this am. Pt to receive dose this evening. Refer to EMAR for further details.
[2021-08-10] MEDS: VITAMIN B12,B9,B6 COMPLEX 1 TABLET. PO SCH (09:27)
--- NOTE | 2021-08-10 10:08 | PDOC ---
DATE OF SERVICE DATE: 08/10/21 TIME: 10:08 SUBJECTIVE ROS stable OBJECTIVE Vital Signs Vital Signs Date Time Temp Pulse Resp B/P (MAP) Pulse Ox O2 Delivery O2 Flow Rate FiO2 08/10/21 07:57 Room Air 08/10/21 07:00 97.4 67 20 150/76 (100) 93 97.4 I & 0 Intake and Output 08/10/21 07:00 Intake Total 1750 ml Output Total 0 ml Balance 1750 ml Intake Oral 730 ml Blood Product 340 ml Blood Product IV Normal Saline Flush 680 ml Output Urine Total 0 ml # Bowel Movements 1 PHYSICAL EXAM Physical Exam GEN.: No apparent distress HEENT: OM moist NECK: Supple. LUNGS: Clear to auscultation, non labored HEART: RRR, S1, S2 present. ABDOMEN: Soft, nontender. Positive bowel sounds. EXTREMITIES: Left extremity fistula ; No LE edema NEUROLOGIC: grossly normal SKIN: No rash No CVA or SP tenderness, No Carbajal DIAGNOSIS/ASSESSMENT Assessment & Plan ESRD 2/ 2 DM and HTN. On HD TTS ,Dialysis today. Discussed treatment plan with Wil Anemia Chronic, PRBC as needed, Hx of GI bleed Hx of hematemesis / Dieulafoy's lesions, s/p post-clipping. Hx of Fall at home -S/P ORIF left distal femur fracture on 04/06 Hx of frequent c/o dark coffee ground emesis and dark black stool with clots. s/p Endotherapy 04/10/21 H/o recurrent UGI bleeding, refractory ulcer - endotherapy 01/12/20 (has had 7 EGDs since 2016), past GDA embolization by and surgical evals (poor surgical candidate) S/P EGD on 10/11 Chrionic Leukopenia, thrombocytopenia, macrocytosis - bone marrow biopsy was recommended per heme/onc in the past. WBC lower compared to her previous admissions. Defer to primary Hx of Nonobstructing calculi in the right kidney with no hydronephrosis or obstructive uropathy seen. H/o pancreatitis, alcoholic GERD, cirrhosis, Hep C, h/o C Diff, h/o pancreatitis COMMENT/RELEVANT DATA Meds Current Medications Medications (Trade) Dose Ordered Sig/Kimberly Start Time Stop Time Status Last Admin Dose Admin Acetaminophen (Tylenol) 650 mg PRN Q8HRS PRN 08/07/21 20:45 08/08/21 09:07 650 MG Carvedilol (Coreg) 25 mg BIDWMEALS 08/09/21 17:15 08/09/21 17:15 25 MG Dextrose (Dextrose 50%-Water Syringe) 12.5 gm PRN Q15MIN PRN 08/07/21 20:45 08/09/21 08:11 25 GM Diphenhydramine HCl (Benadryl) 25 mg 1X PRN PRN 08/08/21 14:00 08/09/21 13:59 DC Epoetin Bolivar-epbx (RETACRIT for ESRD PTS) 20,000 unit MoWeFr@2100 08/09/21 21:00 08/09/21 21:42 20,000 UNIT Fentanyl Citrate (Fentanyl 2ml Vial) 50 mcg PRN Q2HR PRN 08/08/21 10:15 08/09/21 09:49 50 MCG Influenza Virus Vaccine Quadrival (Flulaval Quad [id number] Syringe) 0.5 ml ONCE ONCE 08/08/21 09:00 08/08/21 09:01 DC 08/08/21 18:34 0.5 ML Info (CONTRAST GIVEN -- Rx MONITORING) 1 each PRN DAILY PRN 08/07/21 20:00 08/09/21 19:59 DC Info (PHARMACY MONITORING -- do not chart) 1 each PRN DAILY PRN 08/10/21 07:45 Insulin Human Lispro (HumaLOG) 0-7 UNITS TIDWMEALS 08/08/21 08:00 Iohexol (Omnipaque 300 Mg/ml) 60 ml 1X ONCE 08/07/21 20:00 08/07/21 20:01 DC 08/07/21 20:20 60 ML Oxycodone/ Acetaminophen (Percocet 7.5/ 325) 1 tab PRN QID PRN 08/07/21 20:45 08/10/21 07:51 1 TAB Pantoprazole Sodium (PROTONIX VIAL for IV PUSH) 40 mg BIDAC 08/08/21 16:30 08/09/21 09:49 DC 08/09/21 08:22 40 MG Pantoprazole Sodium (Protonix) 40 mg BIDAC 08/09/21 16:30 08/10/21 07:51 40 MG Sevelamer Carbonate (Renvela) 800 mg BIDWMEALS 08/08/21 08:00 08/10/21 07:51 800 MG Sodium Chloride 1,000 ml @ 400 mls/hr Q2H30M PRN 08/10/21 07:45 08/10/21 19:44 Vitamin B Complex (Folbic Tablet) 1 tab DAILY 08/08/21 09:00 08/10/21 09:27 1 TAB Lab Laboratory Tests Test 08/09/21 12:04 08/09/21 14:40 08/09/21 16:44 08/09/21 19:49 Glucose (Fingerstick) 98 mg/dL (70-99) 97 mg/dL (70-99) 94 mg/dL (70-99) Hemoglobin 8.1 g/dL (12.0-15.5) Hematocrit 23.7 % (36.0-47.0) Mean Corpuscular Hemoglobin Concent 34 g/dL (31-37) Test 08/10/21 07:25 08/10/21 08:11 White Blood Count 3.1 x10^3/uL (4.0-11.0) Red Blood Count 2.61 x10^6/uL (3.50-5.40) Hemoglobin 8.3 g/dL (12.0-15.5) Hematocrit 24.5 % (36.0-47.0) Mean Corpuscular Volume 94 fL (79-100) Mean Corpuscular Hemoglobin 32 pg (25-35) Mean Corpuscular Hemoglobin Concent 34 g/dL (31-37) Red Cell Distribution Width 24.8 % (11.5-14.5) Platelet Count 85 x10^3/uL (140-400) Neutrophils (%) (Auto) 59 % (31-73) Lymphocytes (%) (Auto) 25 % (24-48) Monocytes (%) (Auto) 12 % (0-9) Eosinophils (%) (Auto) 3 % (0-3) Basophils (%) (Auto) 1 % (0-3) Neutrophils # (Auto) 1.8 x10^3/uL (1.8-7.7) Lymphocytes # (Auto) 0.8 x10^3/uL (1.0-4.8) Monocytes # (Auto) 0.4 x10^3/uL (0.0-1.1) Eosinophils # (Auto) 0.1 x10^3/uL (0.0-0.7) Basophils # (Auto) 0.0 x10^3/uL (0.0-0.2) Sodium Level 134 mmol/L (136-145) Potassium Level 5.2 mmol/L (3.5-5.1) Chloride Level 96 mmol/L (98-107) Carbon Dioxide Level 23 mmol/L (21-32) Anion Gap 15 (6-14) Blood Urea Nitrogen 55 mg/dL (7-20) Creatinine 7.1 mg/dL (0.6-1.0) Estimated GFR (Cockcroft-Gault) 7.0 Glucose Level 84 mg/dL (70-99) Calcium Level 8.0 mg/dL (8.5-10.1) Glucose (Fingerstick) 81 mg/dL (70-99) Results All relevant outside records, renal labs, imaging studies, telemetry/EKG's were reviewed. Justicifation of Admission Dx: Justifications for Admission: Justification of Admission Dx: N/A Acute Renal Failure: Serum Cr > 4mg/dL Chronic Renal Failure: Hemodynamic Instability Sepsis: Infection GINO TAN MD Aug 10, 2021 10:08
[2021-08-10 11:00] VITALS: BP 142/74
--- NOTE | 2021-08-10 11:21 | PDOC ---
Date of Service: DATE: 08/10/21 TIME: 11:19 Subjective: Subjective: Feels better. Hungry. No abd pain. No bleeding/stools. Objective: Vital Signs: Vital Signs Date Time Temp Pulse Resp B/P (MAP) Pulse Ox O2 Delivery O2 Flow Rate FiO2 08/10/21 07:57 Room Air 08/10/21 07:00 97.4 67 20 150/76 (100) 93 97.4 Labs: Laboratory Tests Test 08/09/21 12:04 08/09/21 14:40 08/09/21 16:44 08/09/21 19:49 Glucose (Fingerstick) 98 mg/dL 97 mg/dL 94 mg/dL Hemoglobin 8.1 g/dL Hematocrit 23.7 % Mean Corpuscular Hemoglobin Concent 34 g/dL Test 08/10/21 07:25 08/10/21 08:11 White Blood Count 3.1 x10^3/uL Red Blood Count 2.61 x10^6/uL Hemoglobin 8.3 g/dL Hematocrit 24.5 % Mean Corpuscular Volume 94 fL Mean Corpuscular Hemoglobin 32 pg Mean Corpuscular Hemoglobin Concent 34 g/dL Red Cell Distribution Width 24.8 % Platelet Count 85 x10^3/uL Neutrophils (%) (Auto) 59 % Lymphocytes (%) (Auto) 25 % Monocytes (%) (Auto) 12 % Eosinophils (%) (Auto) 3 % Basophils (%) (Auto) 1 % Neutrophils # (Auto) 1.8 x10^3/uL Lymphocytes # (Auto) 0.8 x10^3/uL Monocytes # (Auto) 0.4 x10^3/uL Eosinophils # (Auto) 0.1 x10^3/uL Basophils # (Auto) 0.0 x10^3/uL Sodium Level 134 mmol/L Potassium Level 5.2 mmol/L Chloride Level 96 mmol/L Carbon Dioxide Level 23 mmol/L Anion Gap 15 Blood Urea Nitrogen 55 mg/dL Creatinine 7.1 mg/dL Estimated GFR (Cockcroft-Gault) 7.0 Glucose Level 84 mg/dL Calcium Level 8.0 mg/dL Glucose (Fingerstick) 81 mg/dL Imaging: Addendum to CT A/P from 08/07/21 ADDENDUM #1 ADDENDUM: A small umbilical hernia contains a nonobstructed loop of small bowel. Mild wall thickening of the right colon is nonspecific and may reflect luminal decompression or inflammation. PE: GEN: NAD - two daughters present LUNGS: CTAB HEART: RRR ABD: NABS, S/ND/NT NEURO/PSYCH: A & O 3, cheerful A/P: Abd pain, diarrhea/hematochezia - resolved H/o , UGI Dieulafoy's ESRD on HD, non-compliance -- ADAT. Continue PPI. Justicifation of Admission Dx: Justifications for Admission: Justification of Admission Dx: N/A Acute Renal Failure: Serum Cr > 4mg/dL Chronic Renal Failure: Hemodynamic Instability Sepsis: Infection IRIS SZYMANSKI Aug 10, 2021 11:21
[2021-08-10] MEDS ORDERED: diphenhydrAMINE 50 MG/ML VIAL IVP ONE (14:30)
--- NOTE | 2021-08-10 15:19 | NUR ---
SS following up with discharge planning. SS reviewed pt chart and discussed with pt RN. Pt is currently on room air. Pt has outpatient hemodialysis at [facility], ; fax [phone], Saturday, , and Saturday. COVID19 negative. GI soft diet. Hemodialysis today. Surgery consulted for hernia. Pt was previously on services with [facility]. SS will continue to follow for discharge planning.
[2021-08-10 19:00] VITALS: BP 132/60
[2021-08-10 23:44] VITALS: BP 135/47
[2021-08-11 04:00] VITALS: BP 131/65
[2021-08-11 07:00] VITALS: BP 150/64
[2021-08-11] MEDS: INSULIN LISPRO 300 UNITS/3 ML VIAL. SQ SCH ×3 (08:00→17:00)
[2021-08-11 08:04] LABS: HEMATOCRIT 24.1 % (36.0-47.0); HEMOGLOBIN 8.1 g/dL (12.0-15.5); RED BLOOD COUNT 2.56 x10^6/uL (3.50-5.40); RED CELL DISTRIBUTION WIDTH 24.6 % (11.5-14.5); WHITE BLOOD COUNT 3.1 x10^3/uL (4.0-11.0)
[2021-08-11] MEDS: VITAMIN B12,B9,B6 COMPLEX 1 TABLET. PO SCH (08:56)
[2021-08-11] MEDS: PANTOPRAZOLE 40 MG TABLET.DR. PO SCH ×2 (08:56→17:35)
[2021-08-11] MEDS: CARVEDILOL 12.5 MG TABLET. PO SCH ×2 (08:57→17:36)
[2021-08-11] MEDS: SEVELAMER CARBONATE 800 MG TABLET. PO SCH ×2 (08:57→17:35)
--- NOTE | 2021-08-11 09:48 | PDOC2 ---
AGNIESZKAJUAN RAMON Edward CELLULAR EQUIPMENT REPAIRER 08/11/21 0947: CONSULT Date of Consult Date of Consult DATE: 08/11/21 TIME: 09:44 Reason for Consult Reason for Consult: umbilical hernia Referring Physician Referring Physician: Dr Faulkner Identification/Chief Complaint Chief Complaint abd pain Source Source: Chart review, Patient History of Present Illness Reason for Visit: Admitted with abdominal pain, diarrhea, and bloody stools. Improved, tolerating diet, but still abdominal pain. Umbilical hernia and surgical evaluation for possible repair Past Medical History Cardiovascular: HTN, Hyperlipidemia Pulmonary: No pertinent hx GI: Constipation, GERD, GI bleed, Peptic Ulcer disease, Other Heme/Onc: Anemia NOS Hepatobiliary: Cirrhosis, Hep A/B/C, Other Psych: Addictions Rheumatologic: Rheumatoid arthritis Infectious disease: No pertinent hx Renal/: Chronic renal failure, Hematuria Endocrine: Diabetes, Hyperparathyroidism Past Surgical History Past Surgical History: Cholecystectomy, Tonsillectomy, Hysterectomy Family History Family History: Alcohol Abuse, Cancer, High Cholestrol, Hypertension Social History Quit ALCOHOL: other (heavy in past) Drugs: None Lives: with Family Domestic Violence: Neg Current Problem List Problem List Problems Medical Problems: (1) Anemia Status: Chronic Current Medications Current Medications Current Medications Fentanyl Citrate (Fentanyl 2ml Vial) 75 mcg 1X ONCE IVP Last administered on 08/07/21at 20:23; Start 08/07/21 at 19:30; Stop 08/07/21 at 19:31; Status DC Iohexol (Omnipaque 300 Mg/ml) 60 ml 1X ONCE IV Last administered on 08/07/21at 20:20; Start 08/07/21 at 20:00; Stop 08/07/21 at 20:01; Status DC Info (CONTRAST GIVEN -- Rx MONITORING) 1 each PRN DAILY PRN MC SEE COMMENTS; Start 08/07/21 at 20:00; Stop 08/09/21 at 19:59; Status DC Acetaminophen (Tylenol) 650 mg 1X PRN PRN PO PRE-TRANSFUSION; Start 08/07/21 at 20:45; Stop 08/08/21 at 12:46; Status DC Oxycodone/ Acetaminophen (Percocet 7.5/ 325) 1 tab PRN QID PRN PO MODERATE- SEVERE PAIN Last administered on 08/10/21at 19:59; Start 08/07/21 at 20:45 Pantoprazole Sodium (Protonix) 40 mg BIDAC PO ; Start 08/07/21 at 21:00; Stop 08/07/21 at 21:08; Status DC Sevelamer Carbonate (Renvela) 800 mg BIDWMEALS PO Last administered on 08/11/21at 08:57; Start 08/08/21 at 08:00 Insulin Human Lispro (HumaLOG) 0-7 UNITS TIDWMEALS SQ ; Start 08/08/21 at 08:00 Dextrose (Dextrose 50%-Water Syringe) 12.5 gm PRN Q15MIN PRN IV SEE COMMENTS Last administered on 08/09/21at 08:11; Start 08/07/21 at 20:45 Vitamin B Complex (Folbic Tablet) 1 tab DAILY PO Last administered on 08/11/21at 08:56; Start 08/08/21 at 09:00 Acetaminophen (Tylenol) 650 mg PRN Q8HRS PRN PO MILD PAIN 1-3 Last administered on 08/08/21at 09:07; Start 08/07/21 at 20:45 Pantoprazole Sodium (PROTONIX VIAL for IV PUSH) 40 mg 1X ONCE IVP Last administered on 08/07/21at 21:37; Start 08/07/21 at 21:15; Stop 08/07/21 at 21:16; Status DC Pantoprazole Sodium (Protonix) 40 mg BIDAC PO Last administered on 08/08/21at 09:07; Start 08/08/21 at 07:30; Stop 08/08/21 at 09:56; Status DC Influenza Virus Vaccine Quadrival (Flulaval Quad [id number] Syringe) 0.5 ml ONCE ONCE VAX IM ; Start 08/07/21 at 09:00; Stop 08/07/21 at 09:01; Status Cancel Influenza Virus Vaccine Quadrival (Flulaval Quad [id number] Syringe) 0.5 ml ONCE ONCE VAX IM Last administered on 08/08/21at 18:34; Start 08/08/21 at 09:00; Stop 08/08/21 at 09:01; Status DC Pantoprazole Sodium (PROTONIX VIAL for IV PUSH) 40 mg BIDAC IVP Last administered on 08/09/21at 08:22; Start 08/08/21 at 16:30; Stop 08/09/21 at 09:49; Status DC Fentanyl Citrate (Fentanyl 2ml Vial) 50 mcg PRN Q2HR PRN IVP PAIN Last administered on 08/09/21at 09:49; Start 08/08/21 at 10:15 Epoetin Bolivar-epbx (RETACRIT for ESRD PTS) 20,000 unit MoWeFr@2100 SQ Last administered on 08/09/21at 21:42; Start 08/09/21 at 21:00 Diphenhydramine HCl (Benadryl) 25 mg PRN Q6HRS PRN PO ITCHING Last administered on 08/10/21at 19:59; Start 08/08/21 at 13:45 Diphenhydramine HCl (Benadryl) 25 mg 1X PRN PRN IV ITCHING; Start 08/08/21 at 14:00; Stop 08/09/21 at 13:59; Status DC Info (PHARMACY MONITORING -- do not chart) 1 each PRN DAILY PRN MC SEE COMMENTS; Start 08/08/21 at 15:15; Status Cancel Info (PHARMACY MONITORING -- do not chart) 1 each PRN DAILY PRN MC SEE COMMENTS; Start 08/08/21 at 15:15; Status Cancel Pantoprazole Sodium (Protonix) 40 mg BIDAC PO Last administered on 08/11/21at 08:56; Start 08/09/21 at 16:30 Carvedilol (Coreg) 25 mg BIDWMEALS PO Last administered on 08/11/21at 08:57; Start 08/09/21 at 17:15 Sodium Chloride 1,000 ml @ 1,000 mls/hr Q1H PRN IV hypotension; Start 08/10/21 at 07:45; Stop 08/10/21 at 13:44; Status DC Sodium Chloride 1,000 ml @ 400 mls/hr Q2H30M PRN IV PATENCY; Start 08/10/21 at 07:45; Stop 08/10/21 at 19:44; Status DC Info (PHARMACY MONITORING -- do not chart) 1 each PRN DAILY PRN MC SEE COMMENTS; Start 08/10/21 at 07:45 Diphenhydramine HCl (Benadryl) 25 mg 1X ONCE IVP Last administered on 08/10/21at 14:39; Start 08/10/21 at 14:30; Stop 08/10/21 at 14:31; Status DC Active Scripts Active Admelog (Insulin Lispro) 100 Unit/1 Ml Vial 0 Units SQ TIDWMEALS 10 Days Omeprazole 40 Mg Capsule. 1 Cap PO BID Reported Sevelamer HCl 800 Mg Tablet 800 Mg PO BID MDD Oxycodone-Acetaminophn 7.5-325 (Oxycodone HCl/Acetaminophen) 1 Each Tablet 1 Tab PO QID PRN Carvedilol 25 Mg Tablet 25 Mg PO BIDWMEALS Allergies Allergies: Coded Allergies: No Known Drug Allergies (Unverified , 06/19/21) ROS General: No: Chills, Other (fevers ) PSYCHOLOGICAL ROS: No: Anxiety, Depression Eyes: No Blurry vision, No Double vision HEENT: No: Heacaches Hematological and Lymphatic: YES: Bleeding Problems; No: Blood Clots Respiratory: No: Cough, SOB with excertion Cardiovascular: No Chest Pain, No Palpitations Gastrointestinal: No Nausea, No Vomiting Genitourinary: No Dysuria, No Hematuria Musculoskeletal: No Joint Pain, No Muscle Pain Neurological: No Impaired Coord/balance, No Numbness/Tingling Skin: No Pruritus, No Rash Physical Exam General: Alert, Oriented X3, Cooperative HEENT: Atraumatic, PERRLA Lungs: Clear to auscultation Heart: Regular rate, Normal S1, Normal S2 Abdomen: Soft, Other (ttp umbilical area, hernia reduced ) Extremities: No clubbing, No cyanosis Skin: No rashes, No breakdown Neuro: Normal speech, Sensation intact Psych/Mental Status: Mental status NL, Mood NL Vitals VITALS Vital Signs Date Time Temp Pulse Resp B/P (MAP) Pulse Ox O2 Delivery O2 Flow Rate FiO2 08/11/21 08:57 72 150/64 08/11/21 07:00 97.8 18 99 Room Air 97.8 Labs Labs Laboratory Tests Test 08/09/21 12:04 08/09/21 14:40 08/09/21 16:44 08/09/21 19:49 Glucose (Fingerstick) 98 mg/dL (70-99) 97 mg/dL (70-99) 94 mg/dL (70-99) Hemoglobin 8.1 g/dL (12.0-15.5) Hematocrit 23.7 % (36.0-47.0) Mean Corpuscular Hemoglobin Concent 34 g/dL (31-37) Test 08/10/21 07:25 08/10/21 08:11 08/10/21 12:20 08/10/21 16:48 White Blood Count 3.1 x10^3/uL (4.0-11.0) Red Blood Count 2.61 x10^6/uL (3.50-5.40) Hemoglobin 8.3 g/dL (12.0-15.5) Hematocrit 24.5 % (36.0-47.0) Mean Corpuscular Volume 94 fL (79-100) Mean Corpuscular Hemoglobin 32 pg (25-35) Mean Corpuscular Hemoglobin Concent 34 g/dL (31-37) Red Cell Distribution Width 24.8 % (11.5-14.5) Platelet Count 85 x10^3/uL (140-400) Neutrophils (%) (Auto) 59 % (31-73) Lymphocytes (%) (Auto) 25 % (24-48) Monocytes (%) (Auto) 12 % (0-9) Eosinophils (%) (Auto) 3 % (0-3) Basophils (%) (Auto) 1 % (0-3) Neutrophils # (Auto) 1.8 x10^3/uL (1.8-7.7) Lymphocytes # (Auto) 0.8 x10^3/uL (1.0-4.8) Monocytes # (Auto) 0.4 x10^3/uL (0.0-1.1) Eosinophils # (Auto) 0.1 x10^3/uL (0.0-0.7) Basophils # (Auto) 0.0 x10^3/uL (0.0-0.2) Sodium Level 134 mmol/L (136-145) Potassium Level 5.2 mmol/L (3.5-5.1) Chloride Level 96 mmol/L (98-107) Carbon Dioxide Level 23 mmol/L (21-32) Anion Gap 15 (6-14) Blood Urea Nitrogen 55 mg/dL (7-20) Creatinine 7.1 mg/dL (0.6-1.0) Estimated GFR (Cockcroft-Gault) 7.0 Glucose Level 84 mg/dL (70-99) Calcium Level 8.0 mg/dL (8.5-10.1) Glucose (Fingerstick) 81 mg/dL (70-99) 118 mg/dL (70-99) 76 mg/dL (70-99) Test 08/10/21 20:30 08/11/21 07:35 Glucose (Fingerstick) 150 mg/dL (70-99) White Blood Count 3.1 x10^3/uL (4.0-11.0) Red Blood Count 2.56 x10^6/uL (3.50-5.40) Hemoglobin 8.1 g/dL (12.0-15.5) Hematocrit 24.1 % (36.0-47.0) Mean Corpuscular Volume 94 fL (79-100) Mean Corpuscular Hemoglobin 32 pg (25-35) Mean Corpuscular Hemoglobin Concent 34 g/dL (31-37) Red Cell Distribution Width 24.6 % (11.5-14.5) Platelet Count 84 x10^3/uL (140-400) Laboratory Tests Test 08/10/21 12:20 08/10/21 16:48 08/10/21 20:30 08/11/21 07:35 Glucose (Fingerstick) 118 mg/dL (70-99) 76 mg/dL (70-99) 150 mg/dL (70-99) White Blood Count 3.1 x10^3/uL (4.0-11.0) Red Blood Count 2.56 x10^6/uL (3.50-5.40) Hemoglobin 8.1 g/dL (12.0-15.5) Hematocrit 24.1 % (36.0-47.0) Mean Corpuscular Volume 94 fL (79-100) Mean Corpuscular Hemoglobin 32 pg (25-35) Mean Corpuscular Hemoglobin Concent 34 g/dL (31-37) Red Cell Distribution Width 24.6 % (11.5-14.5) Platelet Count 84 x10^3/uL (140-400) Assessment/Plan Assessment/Plan GI bleed, resolved umbilical hernia--reduced, no signs of obstruction, poor surgical candidate with Obesity, renal failure, cirrhosis reviewed with Dr Donald, would treat conservatively, can FU as outpt SPENCER DONALD MD 08/12/21 0882: CONSULT Assessment/Plan Assessment/Plan Agree with above JUAN RAMON AARON APRN Aug 11, 2021 09:47 SPENCER DONALD MD Aug 12, 2021 08:33
--- NOTE | 2021-08-11 10:56 | PDOC ---
Renal-Progress Notes Subjective Notes Notes NO NEW COMPLAINTS History of Present Illness Hx of present illness STABLE Vitals Vitals Vital Signs Date Time Temp Pulse Resp B/P (MAP) Pulse Ox O2 Delivery O2 Flow Rate FiO2 08/11/21 08:57 72 150/64 08/11/21 07:00 97.8 18 99 Room Air 97.8 Weight Weight [ ] I.O. Intake and Output Intake and Output 08/11/21 07:00 Intake Total 300 ml Balance 300 ml Intake Oral 300 ml Labs Labs Laboratory Tests Test 08/10/21 12:20 08/10/21 16:48 08/10/21 20:30 08/11/21 07:35 Glucose (Fingerstick) 118 mg/dL (70-99) 76 mg/dL (70-99) 150 mg/dL (70-99) White Blood Count 3.1 x10^3/uL (4.0-11.0) Red Blood Count 2.56 x10^6/uL (3.50-5.40) Hemoglobin 8.1 g/dL (12.0-15.5) Hematocrit 24.1 % (36.0-47.0) Mean Corpuscular Volume 94 fL (79-100) Mean Corpuscular Hemoglobin 32 pg (25-35) Mean Corpuscular Hemoglobin Concent 34 g/dL (31-37) Red Cell Distribution Width 24.6 % (11.5-14.5) Platelet Count 84 x10^3/uL (140-400) Review of Systems Constitutional: yes: weakness, alert, oriented Ears/Nose/Throat: Yes: no symptom reported Eyes: Yes: no symptom reported Pulmonary: Yes no symptom reported Gastrointestional: Yes: nausea, abdominal pain Genitourinary: Yes: no symptom reported Musculoskeletal: Yes: no symptom reported Skin: Yes no symptom reported Psychiatric/Neurological: Yes: no symptom reported Endocrine: Yes: no symptom reported Physical Exam General Appearance: no apparent distress, febrile Respiratory: bilateral CTA Heart: S1S2, RRR Abdomen: soft, bowel sounds present Genitourinary: bladder flat Extremities: pulses present Neurology: alert, oriented Assessment Assessment IMP HYPERKALEMIA ANEMIA GI BLEED ESRD-TTS DM II HTN PLAN PRBC NEEDED EPOGEN HD TOMORROW GI EVALUATION AND TX ENC COMPLIANCE WILL FOLLOW LINNEA SHULTZ MD Aug 11, 2021 10:56
[2021-08-11 11:00] VITALS: BP 137/55
[2021-08-11] MEDS ORDERED: CALCIUM CARBONATE 500 MG TAB.CHEW PO PRN (11:15)
--- NOTE | 2021-08-11 11:48 | NUR ---
SW following. Discussed with RN, pt from home, room air, renal diet. GI and Nephrology following. Pt reports feeling better. RN advised no SW needs at this time, anticipates possible discharge today. Pt is a high risk readmission. SW will continue to follow.
--- NOTE | 2021-08-11 11:49 | PDOC ---
Date of Service: DATE: 08/11/21 TIME: 11:40 Subjective: Subjective: Pain "is at it again" - started earlier this morning. "Right next to my navel." Had toast for breakfast, waiting for pain meds. Slept well. Passing a lot of gas that "smells like I'm at a horse [place]." No bleeding. Objective: Vital Signs: Vital Signs Date Time Temp Pulse Resp B/P (MAP) Pulse Ox O2 Delivery O2 Flow Rate FiO2 08/11/21 11:00 98.3 74 18 137/55 (82) 99 Room Air 98.3 Labs: Laboratory Tests Test 08/10/21 12:20 08/10/21 16:48 08/10/21 20:30 08/11/21 07:35 Glucose (Fingerstick) 118 mg/dL 76 mg/dL 150 mg/dL White Blood Count 3.1 x10^3/uL Red Blood Count 2.56 x10^6/uL Hemoglobin 8.1 g/dL Hematocrit 24.1 % Mean Corpuscular Volume 94 fL Mean Corpuscular Hemoglobin 32 pg Mean Corpuscular Hemoglobin Concent 34 g/dL Red Cell Distribution Width 24.6 % Platelet Count 84 x10^3/uL PE: GEN: NAD LUNGS: CTAB HEART: RRR ABD: tender umb hernia NEURO/PSYCH: A & O 3 A/P: Abd pain Umbilical hernia - surgery recommends conservative approach H/o , UGI Dieulafoy's, cirrhosis ESRD on HD -- Recurrent pain. Tolerating diet. Will d/w Dr. Faulkner. Justicifation of Admission Dx: Justifications for Admission: Justification of Admission Dx: N/A Acute Renal Failure: Serum Cr > 4mg/dL Chronic Renal Failure: Hemodynamic Instability Sepsis: Infection IRIS SZYMANSKI Aug 11, 2021 11:49
[2021-08-11] MEDS: oxyCODONE/APAP 7.5/325 1 TAB TABLET PO PRN ×2 (11:56→20:14)
--- NOTE | 2021-08-11 14:59 | PDOC ---
[employer] PROGRESS NOTE Date of Service DOS: DATE: 08/11/21 TIME: 14:56 Chief Complaint Chief Complaint acute GI bleed with acute abdominal pain ESRD, non compliance with HD schedule acute on chronic abd pain, home narcotic pain meds moderate malnutriotn CHF, fluid overload hyperkalemia, acidosis, non-compliance with HD acute blood loss anemia, s/p 2 u PRBC, Hyperkalemia, hemodialysis History of Present Illness History of Present Illness Ms Fernandez is a 64 yo F with rectall bleeding, recent admit here 2 weeks ago with bleeding and GI consujlt and renal folliwng , she has missed HD again, last went last and today has new bright red blood per rectum and marked weakness, she has w/ PMHx ESRD on HD TuThSa, PUD with previous GI bleeding, hypertension, hyperlipidemia, GERD, constipation, rheumatoid arthritis, diabetes, hyperparathyroidism, hep C, cirrhosis, and alcohol abuse in remission. Reports she woke up yesterday morning with bright red blood all over her bed, she estimates at least 16 ounces worth as it soaked her pants and bed covers extensively. It was painless. She did not have recurrence of this throughout the day. She reports she was otherwise asymptomatic until she awoke from sleep this evening with generalized abdominal pain and nausea. She does note she still occasionally drinks alcohol She did receive her first Pfizer COVID-19 vaccination in January, but did not receive her second. H/O COVID 19 - 05/27/2020 positive testing, again on 06/14/2020 positive Previously with GI bleed. Transfused 2u PRBC on 04/06/202108/09: 2 u prbc . hgb better. pain better. try to transfer out of ICU. IV pain meds, the PO pain meds are not working for her. 08/10: Afebrile. Transferred to ICU yesterday. Denies any further bloody stools, hemoglobin 8.3. Per GI, will continue to monitor hemoglobin s/p PRBC. Continue Epogen, HD today. 08/10: Hemoglobin 8.1 today. Denies any further hematochezia. She also reports gas today, which she notes is evidence of improvement in her abdominal pain. S he is requesting to discharge tomorrow after hemodialysis. This seems a reasonable questioning given her history of HD noncompliance. Anticipate discharge tomorrow, barring stable hemoglobin. Vitals/I&O Vitals/I&O: Vital Signs Date Time Temp Pulse Resp B/P (MAP) Pulse Ox O2 Delivery O2 Flow Rate FiO2 08/11/21 12:30 20 93 08/11/21 11:56 Room Air 08/11/21 11:00 98.3 74 137/55 (82) 98.3 I & O 08/10/21 08/10/21 08/11/21 15:00 23:00 07:00 Intake Total 300 ml 0 ml Balance 300 ml 0 ml Physical Exam General: Alert, Oriented X3, Cooperative Heart: Regular rate, Normal S1, Normal S2 Lungs: Clear Abdomen: Soft, Other (ttp umbilical area, hernia reduced ) Extremities: No clubbing, No cyanosis Skin: No rashes, No breakdown Labs Labs: Laboratory Tests Test 08/10/21 16:48 08/10/21 20:30 08/11/21 07:24 08/11/21 07:35 Glucose (Fingerstick) 76 mg/dL (70-99) 150 mg/dL (70-99) 104 mg/dL (70-99) White Blood Count 3.1 x10^3/uL (4.0-11.0) Red Blood Count 2.56 x10^6/uL (3.50-5.40) Hemoglobin 8.1 g/dL (12.0-15.5) Hematocrit 24.1 % (36.0-47.0) Mean Corpuscular Volume 94 fL (79-100) Mean Corpuscular Hemoglobin 32 pg (25-35) Mean Corpuscular Hemoglobin Concent 34 g/dL (31-37) Red Cell Distribution Width 24.6 % (11.5-14.5) Platelet Count 84 x10^3/uL (140-400) Test 08/11/21 12:08 Glucose (Fingerstick) 122 mg/dL (70-99) Assessment and Plan Assessmemt and Plan Problems Medical Problems: (1) Anemia Status: Chronic Comment Review of Relevant I have reviewed the following items tamika (where applicable) has been applied. Medications: Current Medications Medications (Trade) Dose Ordered Sig/Kimberly Route PRN Reason Start Time Stop Time Status Last Admin Dose Admin Calcium Carbonate/ Glycine (Tums) 500 mg PRN AFTMEALHC PRN PO INDIGESTION 08/11/21 11:15 08/11/21 11:57 Justifications for Admission Other Justification Hyperkalemia, hemodialysis REMINGTON BACK MD Aug 11, 2021 14:59
[2021-08-11 15:00] VITALS: BP 164/62
[2021-08-11 19:00] VITALS: BP 140/60
[2021-08-11] MEDS: diphenhydrAMINE HCL 25 MG CAPSULE PO PRN (20:09)
[2021-08-11] MEDS: EPOETIN ALFA-EPBX for ESRD 20,000 UNIT/ML VIAL. SQ SCH (20:41)
[2021-08-11 23:00] VITALS: BP 130/51
[2021-08-12] MEDS: oxyCODONE/APAP 7.5/325 1 TAB TABLET PO PRN ×2 (00:29→11:17)
[2021-08-12 04:00] VITALS: BP 106/36
[2021-08-12 07:00] VITALS: BP 114/57
[2021-08-12 07:30] LABS: HEMATOCRIT 25.7 % (36.0-47.0); HEMOGLOBIN 8.2 g/dL (12.0-15.5); RED BLOOD COUNT 2.66 x10^6/uL (3.50-5.40); RED CELL DISTRIBUTION WIDTH 24.6 % (11.5-14.5); WHITE BLOOD COUNT 3.8 x10^3/uL (4.0-11.0)
[2021-08-12] MEDS: PANTOPRAZOLE 40 MG TABLET.DR. PO SCH (07:30)
[2021-08-12 07:55] LABS: CALCIUM 7.8 mg/dL (8.5-10.1); GFR 8.5; POTASSIUM 4.1 mmol/L (3.5-5.1)
[2021-08-12] MEDS: diphenhydrAMINE HCL 25 MG CAPSULE PO PRN (07:55)
[2021-08-12] MEDS: INSULIN LISPRO 300 UNITS/3 ML VIAL. SQ SCH ×2 (08:00→12:00)
[2021-08-12] MEDS: CARVEDILOL 12.5 MG TABLET. PO SCH (08:00)
[2021-08-12] MEDS: SEVELAMER CARBONATE 800 MG TABLET. PO SCH (08:00)
[2021-08-12] MEDS ORDERED: ALBUMIN HUMAN 25% 200 ML IV PRN (08:15)
[2021-08-12] MEDS ORDERED: IV NORMAL SALINE 1000ML BAG 1,000 ML IV PRN ×2 (08:15)
[2021-08-12] MEDS ORDERED: DIALYSIS PATIENT. MC PRN ×2 (08:15)
[2021-08-12] MEDS ORDERED: diphenhydrAMINE 50 MG/ML VIAL IV PRN (08:15)
[2021-08-12] MEDS: VITAMIN B12,B9,B6 COMPLEX 1 TABLET. PO SCH (09:00)
--- NOTE | 2021-08-12 11:24 | PDOC ---
[employer] PROGRESS NOTE Date of Service DOS: DATE: 08/12/21 TIME: 11:23 Chief Complaint Chief Complaint acute GI bleed with acute abdominal pain ESRD, non compliance with HD schedule acute on chronic abd pain, home narcotic pain meds moderate malnutriotn CHF, fluid overload hyperkalemia, acidosis, non-compliance with HD acute blood loss anemia, s/p 2 u PRBC, Hyperkalemia, hemodialysis History of Present Illness History of Present Illness Ms Fernandez is a 64 yo F with rectall bleeding, recent admit here 2 weeks ago with bleeding and GI consujlt and renal folliwng , she has missed HD again, last went last and today has new bright red blood per rectum and marked weakness, she has w/ PMHx ESRD on HD TuThSa, PUD with previous GI bleeding, hypertension, hyperlipidemia, GERD, constipation, rheumatoid arthritis, diabetes, hyperparathyroidism, hep C, cirrhosis, and alcohol abuse in remission. Reports she woke up yesterday morning with bright red blood all over her bed, she estimates at least 16 ounces worth as it soaked her pants and bed covers extensively. It was painless. She did not have recurrence of this throughout the day. She reports she was otherwise asymptomatic until she awoke from sleep this evening with generalized abdominal pain and nausea. She does note she still occasionally drinks alcohol She did receive her first Pfizer COVID-19 vaccination in January, but did not receive her second. H/O COVID 19 - 05/27/2020 positive testing, again on 06/14/2020 positive Previously with GI bleed. Transfused 2u PRBC on 04/06/202108/09: 2 u prbc . hgb better. pain better. try to transfer out of ICU. IV pain meds, the PO pain meds are not working for her. 08/10: Afebrile. Transferred to ICU yesterday. Denies any further bloody stools, hemoglobin 8.3. Per GI, will continue to monitor hemoglobin s/p PRBC. Continue Epogen, HD today. 08/11: Hemoglobin 8.1 today. Denies any further hematochezia. She also reports gas today, which she notes is evidence of improvement in her abdominal pain. S he is requesting to discharge tomorrow after hemodialysis. This seems a reasonable questioning given her history of HD noncompliance. Anticipate discharge tomorrow, barring stable hemoglobin. 08/12: Patient seen in hemodialysis. Denies any further abdominal pain, just reports gas. Hemoglobin 8.2 with no further hematochezia. She is stable to discharge home after dialysis. Greater than 30 minutes spent managing the discharge of this patient. Vitals/I&O Vitals/I&O: Vital Signs Date Time Temp Pulse Resp B/P (MAP) Pulse Ox O2 Delivery O2 Flow Rate FiO2 08/12/21 11:17 18 98 Room Air 08/12/21 07:00 97.7 64 114/57 (76) 97.7 I & O 08/11/21 08/11/21 08/12/21 15:00 23:00 07:00 Intake Total 400 ml 300 ml 120 ml Balance 400 ml 300 ml 120 ml Physical Exam General: Alert, Oriented X3, Cooperative Heart: Regular rate, Normal S1, Normal S2 Lungs: Clear Abdomen: Soft, Other (ttp umbilical area, hernia reduced ) Extremities: No clubbing, No cyanosis Skin: No rashes, No breakdown Labs Labs: Laboratory Tests Test 08/11/21 12:08 08/11/21 17:14 08/11/21 20:29 08/12/21 06:55 Glucose (Fingerstick) 122 mg/dL (70-99) 133 mg/dL (70-99) 119 mg/dL (70-99) White Blood Count 3.8 x10^3/uL (4.0-11.0) Red Blood Count 2.66 x10^6/uL (3.50-5.40) Hemoglobin 8.2 g/dL (12.0-15.5) Hematocrit 25.7 % (36.0-47.0) Mean Corpuscular Volume 96 fL (79-100) Mean Corpuscular Hemoglobin 31 pg (25-35) Mean Corpuscular Hemoglobin Concent 32 g/dL (31-37) Red Cell Distribution Width 24.6 % (11.5-14.5) Platelet Count 84 x10^3/uL (140-400) Sodium Level 134 mmol/L (136-145) Potassium Level 4.1 mmol/L (3.5-5.1) Chloride Level 96 mmol/L (98-107) Carbon Dioxide Level 29 mmol/L (21-32) Anion Gap 9 (6-14) Blood Urea Nitrogen 34 mg/dL (7-20) Creatinine 6.0 mg/dL (0.6-1.0) Estimated GFR (Cockcroft-Gault) 8.5 Glucose Level 82 mg/dL (70-99) Calcium Level 7.8 mg/dL (8.5-10.1) Test 08/12/21 07:39 Glucose (Fingerstick) 95 mg/dL (70-99) Assessment and Plan Assessmemt and Plan Problems Medical Problems: (1) Anemia Status: Chronic Comment Review of Relevant I have reviewed the following items tamika (where applicable) has been applied. Medications: Current Medications Medications (Trade) Dose Ordered Sig/Kimberly Route PRN Reason Start Time Stop Time Status Last Admin Dose Admin Diphenhydramine HCl (Benadryl) 25 mg 1X PRN PRN IV ITCHING 08/12/21 08:15 08/13/21 08:14 08/12/21 09:38 Justifications for Admission Other Justification Hyperkalemia, hemodialysis REMINGTON BACK MD Aug 12, 2021 11:24
--- NOTE | 2021-08-12 11:25 | PDOC3 ---
Discharge Summary Visit Information Date of Admission: Aug 07, 2021 Date of Discharge: Aug 12, 2021 Final Diagnosis Problems Medical Problems: (1) Anemia Status: Chronic Brief Hospital Course Allergies Allergies Coded Allergies Type Severity Reaction Last Updated Verified No Known Drug Allergies 06/19/21 No Vital Signs Vital Signs Date Time Temp Pulse Resp B/P (MAP) Pulse Ox O2 Delivery O2 Flow Rate FiO2 08/12/21 11:17 18 98 Room Air 08/12/21 07:00 97.7 64 114/57 (76) 97.7 Lab Results Laboratory Tests Test 08/10/21 12:20 08/10/21 16:48 08/10/21 20:30 08/11/21 07:24 Glucose (Fingerstick) 118 mg/dL (70-99) 76 mg/dL (70-99) 150 mg/dL (70-99) 104 mg/dL (70-99) Test 08/11/21 07:35 08/11/21 12:08 08/11/21 17:14 08/11/21 20:29 White Blood Count 3.1 x10^3/uL (4.0-11.0) Red Blood Count 2.56 x10^6/uL (3.50-5.40) Hemoglobin 8.1 g/dL (12.0-15.5) Hematocrit 24.1 % (36.0-47.0) Mean Corpuscular Volume 94 fL (79-100) Mean Corpuscular Hemoglobin 32 pg (25-35) Mean Corpuscular Hemoglobin Concent 34 g/dL (31-37) Red Cell Distribution Width 24.6 % (11.5-14.5) Platelet Count 84 x10^3/uL (140-400) Glucose (Fingerstick) 122 mg/dL (70-99) 133 mg/dL (70-99) 119 mg/dL (70-99) Test 08/12/21 06:55 08/12/21 07:39 White Blood Count 3.8 x10^3/uL (4.0-11.0) Red Blood Count 2.66 x10^6/uL (3.50-5.40) Hemoglobin 8.2 g/dL (12.0-15.5) Hematocrit 25.7 % (36.0-47.0) Mean Corpuscular Volume 96 fL (79-100) Mean Corpuscular Hemoglobin 31 pg (25-35) Mean Corpuscular Hemoglobin Concent 32 g/dL (31-37) Red Cell Distribution Width 24.6 % (11.5-14.5) Platelet Count 84 x10^3/uL (140-400) Sodium Level 134 mmol/L (136-145) Potassium Level 4.1 mmol/L (3.5-5.1) Chloride Level 96 mmol/L (98-107) Carbon Dioxide Level 29 mmol/L (21-32) Anion Gap 9 (6-14) Blood Urea Nitrogen 34 mg/dL (7-20) Creatinine 6.0 mg/dL (0.6-1.0) Estimated GFR (Cockcroft-Gault) 8.5 Glucose Level 82 mg/dL (70-99) Calcium Level 7.8 mg/dL (8.5-10.1) Glucose (Fingerstick) 95 mg/dL (70-99) Laboratory Tests Test 08/11/21 12:08 08/11/21 17:14 08/11/21 20:29 08/12/21 06:55 Glucose (Fingerstick) 122 mg/dL (70-99) 133 mg/dL (70-99) 119 mg/dL (70-99) White Blood Count 3.8 x10^3/uL (4.0-11.0) Red Blood Count 2.66 x10^6/uL (3.50-5.40) Hemoglobin 8.2 g/dL (12.0-15.5) Hematocrit 25.7 % (36.0-47.0) Mean Corpuscular Volume 96 fL (79-100) Mean Corpuscular Hemoglobin 31 pg (25-35) Mean Corpuscular Hemoglobin Concent 32 g/dL (31-37) Red Cell Distribution Width 24.6 % (11.5-14.5) Platelet Count 84 x10^3/uL (140-400) Sodium Level 134 mmol/L (136-145) Potassium Level 4.1 mmol/L (3.5-5.1) Chloride Level 96 mmol/L (98-107) Carbon Dioxide Level 29 mmol/L (21-32) Anion Gap 9 (6-14) Blood Urea Nitrogen 34 mg/dL (7-20) Creatinine 6.0 mg/dL (0.6-1.0) Estimated GFR (Cockcroft-Gault) 8.5 Glucose Level 82 mg/dL (70-99) Calcium Level 7.8 mg/dL (8.5-10.1) Test 08/12/21 07:39 Glucose (Fingerstick) 95 mg/dL (70-99) Brief Hospital Course Ms. Fernandez is a 66 old female who presented with: acute GI bleed with acute abdominal pain ESRD, non compliance with HD schedule acute on chronic abd pain, home narcotic pain meds moderate malnutriotn CHF, fluid overload hyperkalemia, acidosis, non-compliance with HD Ms Fernandez is a 64 yo F with rectall bleeding, recent admit here 2 weeks ago with bleeding and GI consujlt and renal folliwng , she has missed HD again, last went last and today has new bright red blood per rectum and marked weakness, she has w/ PMHx ESRD on HD TuThSa, PUD with previous GI bleeding, hypertension, hyperlipidemia, GERD, constipation, rheumatoid arthritis, diabetes, hyperp arathyroidism, hep C, cirrhosis, and alcohol abuse in remission. Reports she woke up yesterday morning with bright red blood all over her bed, she estimates at least 16 ounces worth as it soaked her pants and bed covers extensively. It was painless. She did not have recurrence of this throughout the day. She reports she was otherwise asymptomatic until she awoke from sleep this evening with generalized abdominal pain and nausea. She does note she still occasionally drinks alcohol She did receive her first Pfizer COVID-19 vaccination in January, but did not receive her second. H/O COVID 19 - 05/27/2020 positive testing, again on 06/14/2020 positive Previously with GI bleed. Transfused 2u PRBC on 04/06/202108/09: 2 u prbc . hgb better. pain better. try to transfer out of ICU. IV pain meds, the PO pain meds are not working for her. 08/10: Afebrile. Transferred to ICU yesterday. Denies any further bloody stools, hemoglobin 8.3. Per GI, will continue to monitor hemoglobin s/p PRBC. Continue Epogen, HD today. 08/11: Hemoglobin 8.1 today. Denies any further hematochezia. She also reports gas today, which she notes is evidence of improvement in her abdominal pain. She is requesting to discharge tomorrow after hemodialysis. This seems a reasonable questioning given her history of HD noncompliance. Anticipate discharge tomorrow, barring stable hemoglobin. 08/12: Patient seen in hemodialysis. Denies any further abdominal pain, just reports gas. Hemoglobin 8.2 with no further hematochezia. She is stable to discharge home after dialysis. Greater than 30 minutes spent managing the discharge of this patient. Discharge Information Condition at Discharge: Stable Disposition/Orders: D/C to Home Scheduled Carvedilol (Carvedilol) 25 Mg Tablet, 25 MG PO BIDWMEALS for CARDIAC, (Reported) Entered as Reported by: MY NÚÑEZ on 03/05/20 184 Last Action: Converted on 08/09/211708 by LILLIE KWAN Insulin Lispro (Admelog) 100 Unit/1 Ml Vial, 0 UNITS SQ TIDWMEALS for PER SS PROTOCOL for 10 Days, #1 Prescribed by: ASHIA MOSS MD on 06/27/21 1127 Omeprazole (Omeprazole) 40 Mg Capsule.dr, 1 CAP PO BID for GERD, #60 Ref 3 Prescribed by: REMINGTON BACK MD on 05/29/21 1513 Last Action: Converted on 08/07/212037 by ELIZABETH GONZALEZ Sevelamer HCl (Sevelamer HCl) 800 Mg Tablet, 800 MG PO BID for MDD , (Report ed) Entered as Reported by: Thaddeus Bethea on 02/16/212321 Last Action: Converted on 08/07/212037 by ELIZABETH GONZALEZ Scheduled PRN Oxycodone HCl/Acetaminophen (Oxycodone-Acetaminophn 7.5-325) 1 Each Tablet, 1 TAB PO QID PRN for PAIN, (Reported) Entered as Reported by: Thaddeus Bethea on 02/16/212321 Last Action: Continued on 08/07/212037 by ELIZABETH GONZALEZ Justicifation of Admission Dx: Justifications for Admission: Justification of Admission Dx: N/A Acute Renal Failure: Serum Cr > 4mg/dL Chronic Renal Failure: Hemodynamic Instability Sepsis: Infection REMINGTON BACK MD Aug 12, 2021 11:25
--- NOTE | 2021-08-12 14:29 | PDOC ---
DATE OF SERVICE DATE: 08/12/21 TIME: 14:28 SUBJECTIVE ROS stable , sitting up in chair, No complaints states she thinks she will be discharged home today OBJECTIVE Vital Signs Vital Signs Date Time Temp Pulse Resp B/P (MAP) Pulse Ox O2 Delivery O2 Flow Rate FiO2 08/12/21 11:17 18 98 Room Air 08/12/21 07:00 97.7 64 114/57 (76) 97.7 I & 0 Intake and Output 08/12/21 07:00 Intake Total 820 ml Balance 820 ml Intake Oral 820 ml PHYSICAL EXAM Physical Exam GEN.: No apparent distress HEENT: OM moist NECK: Supple. LUNGS: Clear to auscultation, non labored HEART: RRR, S1, S2 present. ABDOMEN: Soft, nontender. Positive bowel sounds. EXTREMITIES: Left extremity fistula ; No LE edema NEUROLOGIC: grossly normal SKIN: No rash No CVA or SP tenderness, No Carbajal DIAGNOSIS/ASSESSMENT Assessment & Plan ESRD 2/ 2 DM and HTN. On HD TTS ,Dialysis today. Discussed treatment plan with Wil Anemia Chronic, PRBC as needed, Hx of GI bleed Hx of hematemesis / Dieulafoy's lesions, s/p post-clipping. Hx of Fall at home -S/P ORIF left distal femur fracture on 04/06 Hx of frequent c/o dark coffee ground emesis and dark black stool with clots. s/p Endotherapy 04/10/21 H/o recurrent UGI bleeding, refractory ulcer - endotherapy 01/12/20 (has had 7 EGDs since 2016), past GDA embolization by and surgical evals (poor surgical candidate) S/P EGD on 10/11 Chrionic Leukopenia, thrombocytopenia, macrocytosis - bone marrow biopsy was recommended per heme/onc in the past. WBC lower compared to her previous admissions. Defer to primary Hx of Nonobstructing calculi in the right kidney with no hydronephrosis or obstructive uropathy seen. H/o pancreatitis, alcoholic GERD, cirrhosis, Hep C, h/o C Diff, h/o pancreatitis COMMENT/RELEVANT DATA Meds Current Medications Medications (Trade) Dose Ordered Sig/Kimberly Start Time Stop Time Status Last Admin Dose Admin Acetaminophen (Tylenol) 650 mg PRN Q8HRS PRN 08/07/21 20:45 08/08/21 09:07 650 MG Albumin Human 200 ml @ 200 mls/hr 1X PRN PRN 08/12/21 08:15 08/12/21 14:14 DC Calcium Carbonate/ Glycine (Tums) 500 mg PRN AFTMEALHC PRN 08/11/21 11:15 08/11/21 11:57 500 MG Carvedilol (Coreg) 25 mg BIDWMEALS 08/09/21 17:15 08/11/21 17:36 25 MG Dextrose (Dextrose 50%-Water Syringe) 12.5 gm PRN Q15MIN PRN 08/07/21 20:45 08/09/21 08:11 25 GM Diphenhydramine HCl (Benadryl) 25 mg 1X PRN PRN 08/12/21 08:15 08/13/21 08:14 08/12/21 09:38 25 MG Epoetin Bolivar-epbx (RETACRIT for ESRD PTS) 20,000 unit MoWeFr@2100 08/09/21 21:00 08/11/21 20:41 20,000 UNIT Fentanyl Citrate (Fentanyl 2ml Vial) 50 mcg PRN Q2HR PRN 08/08/21 10:15 08/09/21 09:49 50 MCG Influenza Virus Vaccine Quadrival (Flulaval Quad [id number] Syringe) 0.5 ml ONCE ONCE 08/08/21 09:00 08/08/21 09:01 DC 08/08/21 18:34 0.5 ML Info (CONTRAST GIVEN -- Rx MONITORING) 1 each PRN DAILY PRN 08/07/21 20:00 08/09/21 19:59 DC Info (PHARMACY MONITORING -- do not chart) 1 each PRN DAILY PRN 08/12/21 08:15 Insulin Human Lispro (HumaLOG) 0-7 UNITS TIDWMEALS 08/08/21 08:00 Iohexol (Omnipaque 300 Mg/ml) 60 ml 1X ONCE 08/07/21 20:00 08/07/21 20:01 DC 08/07/21 20:20 60 ML Oxycodone/ Acetaminophen (Percocet 7.5/ 325) 1 tab PRN QID PRN 08/07/21 20:45 08/12/21 11:17 1 TAB Pantoprazole Sodium (PROTONIX VIAL for IV PUSH) 40 mg BIDAC 08/08/21 16:30 08/09/21 09:49 DC 08/09/21 08:22 40 MG Pantoprazole Sodium (Protonix) 40 mg BIDAC 08/09/21 16:30 08/11/21 17:35 40 MG Sevelamer Carbonate (Renvela) 800 mg BIDWMEALS 08/08/21 08:00 08/11/21 17:35 800 MG Sodium Chloride 1,000 ml @ 400 mls/hr Q2H30M PRN 08/12/21 08:15 08/12/21 20:14 Vitamin B Complex (Folbic Tablet) 1 tab DAILY 08/08/21 09:00 08/11/21 08:56 1 TAB Lab Laboratory Tests Test 08/11/21 17:14 08/11/21 20:29 08/12/21 06:55 08/12/21 07:39 Glucose (Fingerstick) 133 mg/dL (70-99) 119 mg/dL (70-99) 95 mg/dL (70-99) White Blood Count 3.8 x10^3/uL (4.0-11.0) Red Blood Count 2.66 x10^6/uL (3.50-5.40) Hemoglobin 8.2 g/dL (12.0-15.5) Hematocrit 25.7 % (36.0-47.0) Mean Corpuscular Volume 96 fL (79-100) Mean Corpuscular Hemoglobin 31 pg (25-35) Mean Corpuscular Hemoglobin Concent 32 g/dL (31-37) Red Cell Distribution Width 24.6 % (11.5-14.5) Platelet Count 84 x10^3/uL (140-400) Sodium Level 134 mmol/L (136-145) Potassium Level 4.1 mmol/L (3.5-5.1) Chloride Level 96 mmol/L (98-107) Carbon Dioxide Level 29 mmol/L (21-32) Anion Gap 9 (6-14) Blood Urea Nitrogen 34 mg/dL (7-20) Creatinine 6.0 mg/dL (0.6-1.0) Estimated GFR (Cockcroft-Gault) 8.5 Glucose Level 82 mg/dL (70-99) Calcium Level 7.8 mg/dL (8.5-10.1) Test 08/12/21 12:40 Glucose (Fingerstick) 130 mg/dL (70-99) Results All relevant outside records, renal labs, imaging studies, telemetry/EKG's were reviewed. Justicifation of Admission Dx: Justifications for Admission: Justification of Admission Dx: N/A Acute Renal Failure: Serum Cr > 4mg/dL Chronic Renal Failure: Hemodynamic Instability Sepsis: Infection GINO TAN MD Aug 12, 2021 14:29
[2021-08-12 15:13] VITALS: BP 110/51
--- NOTE | 2021-08-12 17:28 | NUR ---
patient discharged home via [facility]. meds and follow up reviewed. IV removed intact. pt stable upon dc. 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
== END 2021-08-12 17:29 | disposition home or self-care (01) | DRG 377 ==
LOC: ER 19:15 → 1 WEST ICU 21:00 → 5 SOUTH 08-09 18:20
PROVIDERS: ADMIT Internal Medicine; ATTEND Internal Medicine
PROC: 30233N1 Transfusion of Nonautologous Red Blood Cells into Peripheral Vein, Percutaneous Approach (ICD-10-PCS; 2021-08-07)
PROC: 5A1D70Z Performance of Urinary Filtration, Intermittent, Less than 6 Hours Per Day (ICD-10-PCS; 2021-08-08)
PROC: 5A1D70Z Performance of Urinary Filtration, Intermittent, Less than 6 Hours Per Day (ICD-10-PCS; 2021-08-10)
PROC: 5A1D70Z Performance of Urinary Filtration, Intermittent, Less than 6 Hours Per Day (ICD-10-PCS; principal; 2021-08-12)
DX: K92.2 Gastrointestinal hemorrhage, unspecified (principal); I50.33 Acute on chronic diastolic (congestive) heart failure; N18.6 End stage renal disease; I13.2 Hypertensive heart and chronic kidney disease with heart failure and with stage 5 chronic kidney disease, or end stage renal disease; D62 Acute posthemorrhagic anemia; N17.9 Acute kidney failure, unspecified; E44.0 Moderate protein-calorie malnutrition; E11.22 Type 2 diabetes mellitus with diabetic chronic kidney disease; E11.36 Type 2 diabetes mellitus with diabetic cataract; E78.5 Hyperlipidemia, unspecified; E87.5 Hyperkalemia; F32.9 Major depressive disorder, single episode, unspecified; G89.29 Other chronic pain; K21.9 Gastro-esophageal reflux disease without esophagitis; K42.9 Umbilical hernia without obstruction or gangrene; K74.60 Unspecified cirrhosis of liver; M06.9 Rheumatoid arthritis, unspecified; Z79.4 Long term (current) use of insulin; Z79.899 Other long term (current) drug therapy; Z82.49 Family history of ischemic heart disease and other diseases of the circulatory system; Z83.3 Family history of diabetes mellitus; Z86.16 Personal history of COVID-19; Z87.11 Personal history of peptic ulcer disease; Z87.442 Personal history of urinary calculi; Z90.711 Acquired absence of uterus with remaining cervical stump; Z91.15 Patient's noncompliance with renal dialysis; Z91.19 Patient's noncompliance with other medical treatment and regimen; Z99.2 Dependence on renal dialysis; E21.3 Hyperparathyroidism, unspecified; Z90.49 Acquired absence of other specified parts of digestive tract
CPT/HCPCS: 36415; 36430; 74177; 80048; 80053; 82274; 82962; 83605; 83690; 83735; 83880; 84100; 84484; 85014; 85018; 85025; 85027; 86850; 86900; 86901; 86920; 90471; 90686; 93005; 96374; 96375; C9113; J1200; J3010; P9016; Q9967; 99285-25; G0378; Q0163

== ENCOUNTER 2021-12-16 10:28 | Inpatient (IN) | payer OTHER, MEDICAID ==
[~2021-12-16] VITALS: Ht 157.5 cm; Wt 85.0 kg
[~2021-12-16 10:28] MED LIST changes: +DICY10CA3 PO; -FLU VACC QUAD 21-22 (6MOS+) PF 0.5 ML SYRINGE. VAX IM ONE; +SUCR1TAB35 PO
--- NOTE | 2021-12-16 10:54 | PHYS DOC ---
Past Medical History Past Medical History: Diabetes-Type II, GERD, GI Bleed, Hypertension, Kidney Stone, Pancreatitis, Pneumonia, P.U.D., Renal Failure, Other Additional Past Medical Histor: ESRD, KIDNEY STONES, PANCREATITIS, Past Surgical History: Cholecystectomy, Hysterectomy, Other Additional Past Surgical Histo: fistula LUE Smoking Status: Former Smoker Alcohol Use: None Drug Use: None General Adult EDM: Chief Complaint: BACK PAIN OR INJURY HPI: HPI: Patient is a 66 year old female who presents with states last night when she was getting on the bathtub she slipped and fell and hit the right side of her head, right shoulder and upper arm on the side of the shower. She states after the fall she vomited. She denies blood thinners, syncope, dizziness, chest pain, shortness of air, vision change, focal weakness, numbness or tingling, abdominal pain, diarrhea. Patient rates her right side of her head and neck pain a 9 out of 10 at this time. She supposed to begin dialysis today but called and told them that she need to come to the ER instead. Patient has a history of GERD, GI bleed, diabetes, PUD, hypertension, CHF, dialysis, ERSD, kidney stone, cholecystectomy, pancreatitis, pneumonia, fistula in the left arm. Review of Systems: Review of Systems: Constitutional: Denies fever or chills. [] Eyes: Denies change in visual acuity. [] HENT: Denies nasal congestion or sore throat. [] Respiratory: Denies cough or shortness of breath. [] Cardiovascular: Denies chest pain or edema. [] GI: Denies abdominal pain, nausea,+ vomiting x1 after fall, denies bloody stools or diarrhea. [] : Denies dysuria. [] Musculoskeletal: + Cervical back pain or denies joint pain. [] Integument: Denies rash. + Bruise to right upper back, posterior shoulder. +Bruise to lateral humerus and shoulder [] Neurologic: + headache, denies focal weakness or sensory changes. [] Endocrine: Denies polyuria or polydipsia. [] Lymphatic: Denies swollen glands. [] Psychiatric: Denies depression or anxiety. [] Heart Score: C/O Chest Pain: No HEART Score for Chest Pain: HEART Score for Chest Pain Response (Comments) Value History Slighlty/Non-Suspicious 0 ECG Nonspecific Repolarizatio 1 Age > 65 2 Risk Factors 1 or 2 Risk Factors 1 Troponin < Normal Limit 0 Total 4 Risk Factors: Risk Factors: DM, Current or recent (<one month) smoker, HTN, HLP, family history of CAD, obesity. Risk Scores: Score 0 - 3: 2.5% MACE over next 6 weeks - Discharge Home Score 4 - 6: 20.3% MACE over next 6 weeks - Admit for Clinical Observation Score 7 - 10: 72.7% MACE over next 6 weeks - Early Invasive Strategies Allergies: Allergies: Allergies Coded Allergies Type Severity Reaction Last Updated Verified No Known Drug Allergies 06/19/21 No Physical Exam: PE: Constitutional: Well developed, well nourished, no acute distress, non-toxic appearance. [] HENT: Normocephalic, atraumatic, bilateral external ears normal, oropharynx moist, no oral exudates, nose normal. [] Eyes: PERRLA, EOMI, conjunctiva normal, no discharge. [] Neck: Normal range of motion, no tenderness, supple, no stridor. [] Cardiovascular:Heart rate regular rhythm, no murmur [] Lungs & Thorax: Bilateral upper breath sounds clear and lower diminished to auscultation [] Abdomen: Bowel sounds normal, soft, no tenderness, no masses, no pulsatile masses. [] Skin: Warm, dry, no erythema, no rash. Bruising to lateral right shoulder and humerus and posterior shoulder. [] Back: Focal bony cervical tenderness, no CVA tenderness. [] Extremities: No tenderness, no cyanosis, no clubbing, ROM intact, no edema. [] Neurologic: Alert and oriented X 3, normal motor function, normal sensory function, no focal deficits noted. [] Psychologic: Affect normal, judgement normal, mood normal. [] EKG: EK AND READ BY DR WHALEY SINUS RHYTHM AND NO STEMI Radiology/Procedures: Radiology/Procedures: [] Impression: [facility] [address] [place], [place] [id number] IMAGING REPORT Signed PATIENT: CESAR AGEE AACCOUNT: [id number] : 1955 LOCATION: ER AGE: 66 SEX: F EXAM STATUS: PRE ER ORD. PHYSICIAN: CAESAR RODRIGUEZ APRN REASON: MISSED DIALYSIS PROCEDURE: PORTABLE CHEST 1V CT head without contrast: Reason for examination: Fell with right-sided headache. Right upper extremity pain. Missed dialysis. Comparison is made to previous study dated 08/06/2021. Helical images were obtained through the brain with no contrast administered. Reconstruction was performed in sagittal and coronal planes. Ventricular systems are symmetric and not abnormally dilated. No midline shift is seen. There is no evidence of intracranial hemorrhage, infarct, mass or edema. Basal ganglia calcifications are again seen. No abnormalities of seen at the orbits. The paranasal sinuses and mastoid air cells are clear. No acute abnormality seen in the skull. IMPRESSION: No acute intracranial abnormality evident. CT cervical spine without contrast: Helical images were obtained through the cervical spine from the skull base through the thoracic apices with no contrast administered. Reconstruction was performed in sagittal and coronal planes. The C1 ring is intact. The odontoid process appears to be intact and normally centered between the lateral masses of C1. The cervical vertebral bodies are normally aligned anteriorly and posteriorly. No acute fracture or subluxation is evident. The posterior elements appear to be intact. There are hypertrophic changes at the endplates in the cervical spine. There is severe narrowing of the intervertebral disc space at the C6-7 disc level. No significant spinal stenosis is evident. Prevertebral soft tissues are normal. IMPRESSION: No acute abnormality evident in the cervical spine. Degenerative spondylosis with severe narrowing of the C6-7 disc level. No evidence of significant spinal stenosis. Exposure: One or more of the following individualized dose reduction techniques were utilized for this examination: 1. Automated exposure control 2. Adjustment of the mA and/or kV according to patient size 3. Use of iterative reconstruction technique. Chest AP portable at 1059: Comparison is made to previous study dated 07/30/2021 The heart size appears be enlarged.. Mediastinum is unremarkable. Lung chaudhry are clear. No acute bony abnormalities are seen. Impression: Cardiomegaly. No acute cardiopulmonary disease evident. Right shoulder 3 views: No acute fracture or dislocation is seen. Bone density is demineralized. Joint spaces show some degenerative change IMPRESSION: Degenerative change at the right shoulder. No acute fracture or dislocation. Right humerus 2 views: No acute fractures seen. There does appear to be some periosteal new bone at the midshaft of the humerus bone density is demineralized but no lytic or blastic bone lesions are identified. IMPRESSION: No acute fracture or dislocation. Periosteal new bone present at the midshaft of the humerus. Electronically signed by: Giuliana Rajan MD (12/16/2021 11:45 AM) [id number] DICTATED and SIGNED BY: GIULIANA RAJAN MD DATE: 12/16/21 [id number] 0 [facility] [address] [place] [address] IMAGING REPORT Signed PATIENT: CESAR AGEE AACCOUNT: [id number] : 1955 LOCATION: ER AGE: 66 SEX: F EXAM STATUS: REG ER ORD. PHYSICIAN: CAESAR RODRIGUEZ APRN REASON: low hgb, mid abd pain OMNI 300 INJ.75 MLS DIALYSIS TODAY PROCEDURE: CT ABD PELV W/ IV CONTRST ONLY PQRS Compliance Statement: One or more of the following individualized dose reduction techniques were utilized for this examination: 1. Automated exposure control 2. Adjustment of the mA and/or kV according to patient size 3. Use of iterative reconstruction technique CT ABDOMEN+PELVIS W Clinical Indication: Reason: low hgb, mid abd pain Comparison: CT abdomen and pelvis with contrast, October 04, 2021. Technique: Helical CT imaging of the abdomen and pelvis is performed after 75 cc of Omnipaque 300 IV contrast. Oral contrast not administered. Findings: Mild atelectasis or scarring in the lung bases. Calcified granuloma left lower lobe. There is severe mitral annular calcification. There is unchanged cardiac enlargement. There is mild abdominal ascites, greater than on prior study. Recanalized paraumbilical vein is again noted. Hepatic cirrhosis. Cholecystectomy. Stable small hypodensity in the left hepatic lobe, coronal image 10. Vascular coils in the central abdomen are redemonstrated. Spleen size is normal. Pancreas is homogeneous. Adrenal glands are normal. There are bilateral renal artery calcifications. There is no abdominal aortic aneurysm. There are sub-5 mm nonobstructing right renal calculi numbering at least 2. There is no hydronephrosis. The stomach is decompressed. There is no dilated small bowel. No colon wall thickening is identified. The appendix is normal. There are ventral abdominal wall venous collaterals, unchanged. Mild pelvic free fluid. Urinary bladder is decompressed, limiting evaluation. Hysterectomy. There is diffuse anasarca. Old fracture right pubic rami. There is right femur intramedullary fermin, incompletely imaged. Grade 1 anterolisthesis of L4 on L5. There is vacuum disc phenomenon of the lumbar spine. IMPRESSION: 1. No acute abdominal or pelvic abnormality. 2. Mild abdominal and pelvic ascites. 3. Hepatic cirrhosis. Unchanged small hypodensity in the left hepatic lobe. 4. Diffuse anasarca. 5. Stable cardiomegaly. 6. Nonobstructing right renal calculi. Electronically signed by: Dilan Johnson MD (12/16/2021 1:25 PM) [facility] DICTATED and SIGNED BY: DILAN JOHNSON MD DATE: 12/16/21 [id number] 0 Course & Med Decision Making: Course & Med Decision Making Pertinent Labs and Imaging studies reviewed. (See chart for details) See HPI. Alert and oriented x4. EMS states the patient did walk out of the house. 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 No joint deformity, swelling or laxity. She does have bruising to her right lateral shoulder/humerus and posterior shoulder. She does have cervical focal bony spi nal tenderness. No deformity felt to spine palpation. Full range of motion of her neck. She does have right sided head pain but there is no hematoma felt or seen. No lacerations. No abrasions. Lungs are clear in upper lobes and diminished in lower lobes. PERRLA. She denies any kind of dizziness or lightheadedness. She denies syncope. Abdomen soft and slight tenderness to mid abdomen. 1221: Patient now states she has been having mid abdominal pain but continues to deny blood in vomit or stool. Hemoglobin is at 7. Potassium is 6.2 although she is due for dialysis today. Since she is needing dialysis today I will go ahead and do a CT abdomen pelvis with contrast. Chest x-ray shows no acute findings. I have spoke to Dr Patel letting him know the patient is here and her need for dialysis today and lab findings. He states they will get her in today. Rectal Exam: Normal tone, No mass, Positive control Stool: Brown Guaiac: Negative [] Dragon Disclaimer: Rihsi Disclaimer: This electronic medical record was generated, in whole or in part, using a voice recognition dictation system. Departure Departure Impression: Primary Impression: Hemoglobin low Additional Impressions: Hyperkalemia Missed dialysis Fall Qualified Codes: W19.XXXA - Unspecified fall, initial encounter Head injury Qualified Codes: S09.90XA - Unspecified injury of head, initial encounter Disposition: ADMITTED INPATIENT Admitting Physician: BRYANT Condition: STABLE Referrals: Ashley LIAO MD (PCP) CAESAR RODRIGUEZ APRN Dec 16, 2021 10:54
--- NOTE | 2021-12-16 11:47 | RAD ---
CT head without contrast: Reason for examination: Fell with right-sided headache. Right upper extremity pain. Missed dialysis. Comparison is made to previous study dated 08/06/2021. Helical images were obtained through the brain with no contrast administered. Reconstruction was perf ormed in sagittal and coronal planes. Ventricular systems are symmetric and not abnormally dilated. No midline shift is seen. There is no e vidence of intracranial hemorrhage, infarct, mass or edema. Basal ganglia calcifications are again se en. No abnormalities of seen at the orbits. The paranasal sinuses and mastoid air cells are clear. No acute abnormality seen in the skull. IMPRESSION: No acute intracranial abnormality evident. CT cervical spine without contrast: Helical images were obtained through the cervical spine from the skull base through the thoracic apic es with no contrast administered. Reconstruction was performed in sagittal and coronal planes. The C1 ring is intact. The odontoid process appears to be intact and normally centered between the la teral masses of C1. The cervical vertebral bodies are normally aligned anteriorly and posteriorly. No acute fracture or subluxation is evident. The posterior elements appear to be intact. There are hype rtrophic changes at the endplates in the cervical spine. There is severe narrowing of the interverteb ral disc space at the C6-7 disc level. No significant spinal stenosis is evident. Prevertebral soft t issues are normal. IMPRESSION: No acute abnormality evident in the cervical spine. Degenerative spondylosis with severe narrowing of the C6-7 disc level. No evidence of significant spi nal stenosis. Exposure: One or more of the following individualized dose reduction techniques were utilized for thi s examination: 1. Automated exposure control 2. Adjustment of the mA and/or kV according to patient size 3. Use of iterative reconstruction technique. Chest AP portable at 1059: Comparison is made to previous study dated 07/30/2021 The heart size appears be enlarged.. Mediastinum is unremarkable. Lung chaudhry are clear. No acute bon y abnormalities are seen. Impression: Cardiomegaly. No acute cardiopulmonary disease evident. Right shoulder 3 views: No acute fracture or dislocation is seen. Bone density is demineralized. Joint spaces show some degen erative change IMPRESSION: Degenerative change at the right shoulder. No acute fracture or dislocation. Right humerus 2 views: No acute fractures seen. There does appear to be some periosteal new bone at the midshaft of the nicole donna bone density is demineralized but no lytic or blastic bone lesions are identified. IMPRESSION: No acute fracture or dislocation. Periosteal new bone present at the midshaft of the humerus. Electronically signed by: Giuliana Garland MD (12/16/2021 11:45 AM) [id number]
[2021-12-16 11:49] LABS: BASO % 2 % (0-3); EOS # 0.1 x10^3/uL (0.0-0.7); EOS % 3 % (0-3); HEMATOCRIT 21.4 % (36.0-47.0); LYMPH # 0.3 x10^3/uL (1.0-4.8); LYMPH % 14 % (24-48); MEAN CORPUSCULAR HEMOGLOBIN 34 pg (25-35); MEAN CORPUSCULAR HGB CONC 32 g/dL (31-37); MEAN CORPUSCULAR VOLUME 105 fL (79-100); MONO # 0.3 x10^3/uL (0.0-1.1); MONO % 14 % (0-9); NEUT # 1.5 x10^3/uL (1.8-7.7); NEUT % 68 % (31-73); PLATELET COUNT 99 x10^3/uL (140-400); RED BLOOD COUNT 2.05 x10^6/uL (3.50-5.40); RED CELL DISTRIBUTION WIDTH 19.3 % (11.5-14.5); WHITE BLOOD COUNT 2.2 x10^3/uL (4.0-11.0)
[2021-12-16 12:03] LABS: ALBUMIN 3.2 g/dL (3.4-5.0); ALBUMIN/GLOBULIN RATIO 0.6 (1.0-1.7); CALCIUM 8.5 mg/dL (8.5-10.1); CREATININE 7.5 mg/dL (0.6-1.0); GFR 6.5; TOTAL BILIRUBIN 0.6 mg/dL (0.2-1.0); TOTAL PROTEIN 8.4 g/dL (6.4-8.2)
[2021-12-16 12:06] LABS: POTASSIUM 6.2 mmol/L (3.5-5.1)
[2021-12-16] MEDS ORDERED: fentaNYL PF VIAL 100 MCG/2 ML VIAL IVP ONE (12:30)
[2021-12-16 12:43] LABS: FECAL OB PT NEGATIVE (NEG)
[2021-12-16] MEDS ORDERED: CONTRAST GIVEN. MC PRN (12:45)
[2021-12-16] MEDS ORDERED: IOHEXOL 300 MG/ML 100ML VIAL. IV ONE (12:45)
--- NOTE | 2021-12-16 13:27 | RAD ---
PQRS Compliance Statement: One or more of the following individualized dose reduction techniques were utilized for this examinat ion: 1. Automated exposure control 2. Adjustment of the mA and/or kV according to patient size 3. Use of iterative reconstruction technique CT ABDOMEN+PELVIS W Clinical Indication: Reason: low hgb, mid abd pain Comparison: CT abdomen and pelvis with contrast, October 04, 2021. Technique: Helical CT imaging of the abdomen and pelvis is performed after 75 cc of Omnipaque 300 IV contrast. Oral contrast not administered. Findings: Mild atelectasis or scarring in the lung bases. Calcified granuloma left lower lobe. There is severe mitral annular calcification. There is unchanged cardiac enlargement. There is mild abdominal ascites, greater than on prior study. Recanalized paraumbilical vein is again noted. Hepatic cirrhosis. Cholecystectomy. Stable small hypodensity in the left hepatic lobe, hernandez l image 10. Vascular coils in the central abdomen are redemonstrated. Spleen size is normal. Pancreas is homogeneous. Adrenal glands are normal. There are bilateral renal artery calcifications. There is no abdominal aortic aneurysm. There are sub-5 mm nonobstructing right renal calculi numbering at oswaldo st 2. There is no hydronephrosis. The stomach is decompressed. There is no dilated small bowel. No colon wall thickening is identified. The appendix is normal. There are ventral abdominal wall venous collaterals, unchanged. Mild pelvic free fluid. Urinary bladder is decompressed, limiting evaluation. Hysterectomy. There is diffuse anasarca. Old fracture right pubic rami. There is right femur intramedullary fermin, in completely imaged. Grade 1 anterolisthesis of L4 on L5. There is vacuum disc phenomenon of the lumbar spine. IMPRESSION: 1. No acute abdominal or pelvic abnormality. 2. Mild abdominal and pelvic ascites. 3. Hepatic cirrhosis. Unchanged small hypodensity in the left hepatic lobe. 4. Diffuse anasarca. 5. Stable cardiomegaly. 6. Nonobstructing right renal calculi. Electronically signed by: Dilan Johnson MD (12/16/2021 1:25 PM) [facility]
--- NOTE | 2021-12-16 15:31 | EKG ---
[facility] [address] [place] [address] Test Date: 2021-12-16 Test Time: 11:27:24 Pat Name: CESAR AGEE Department: Room: ED HOLD 7 Gender: F Infrastructure Analyst: : 1955 Requested By: CAESAR RODRIGUEZ Order Number: [id number] Reading MD: Binu Castro Measurements Intervals [place] Rate: 63 P: ND: QRS: 62 QRSD: 78 T: 14 QT: 422 QTc: 435 Interpretive Statements SINUS RHYTHM FIRST DEGREE AV BLOCK Electronically Signed On 12-17-2021 13:52:38 STRUCTURAL TECHNICIAN by Binu Castro
[2021-12-16 16:58] VITALS: BP 135/53
[2021-12-16] MEDS ORDERED: hydrALAZINE 20 MG/ML VIAL. IVP PRN (17:45)
[2021-12-16] MEDS ORDERED: ACETAMINOPHEN 325 MG TABLET. PO PRN (17:45)
[2021-12-16] MEDS ORDERED: guaiFENesin DM 200MG/20MG 10 ML SYRUP PO PRN (17:45)
[2021-12-16] MEDS ORDERED: DIALYSIS PATIENT. MC PRN ×2 (18:15)
[2021-12-16] MEDS ORDERED: IV NORMAL SALINE 1000ML BAG 1,000 ML IV PRN (18:15)
[2021-12-16] MEDS ORDERED: DICYCLOMINE HCL 10 MG CAPSULE PO PRN (19:15)
[2021-12-16] MEDS ORDERED: IV DEXTROSE 5% 250 ML BAG. IV PRN (19:45)
[2021-12-16] MEDS ORDERED: DEXTROSE 50% 25 GM / 50ML DISP.SYRIN. IV PRN (19:45)
[2021-12-16] MEDS: SUCRALFATE 1 GM TABLET. PO SCH (20:02)
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
[2021-12-16] MEDS ORDERED: IOHEXOL 300 MG/ML 100ML VIAL. ONE (20:50)
[2021-12-16 21:26] VITALS: BP 109/68
[2021-12-16 23:11] VITALS: BP 127/59
[2021-12-17] MEDS: oxyCODONE/APAP 7.5/325 1 TAB TABLET PO PRN ×3 (00:18→16:34)
[2021-12-17 03:03] VITALS: BP 127/89
[2021-12-17] MEDS: ONDANSETRON PF 4 MG/2 ML VIAL. IVP PRN ×2 (04:39→15:57)
[2021-12-17 07:00] VITALS: BP 127/58
[2021-12-17 07:12] LABS: HEMATOCRIT 20.7 % (36.0-47.0); RED BLOOD COUNT 1.97 x10^6/uL (3.50-5.40); RED CELL DISTRIBUTION WIDTH 19.6 % (11.5-14.5); WHITE BLOOD COUNT 2.4 x10^3/uL (4.0-11.0)
[2021-12-17 07:17] LABS: HEMOGLOBIN 6.5 g/dL (12.0-15.5)
[2021-12-17 07:29] LABS: ALBUMIN 2.8 g/dL (3.4-5.0); ALBUMIN/GLOBULIN RATIO 0.6 (1.0-1.7); CALCIUM 8.2 mg/dL (8.5-10.1); CREATININE 4.9 mg/dL (0.6-1.0); GFR 10.7; POTASSIUM 4.8 mmol/L (3.5-5.1); TOTAL BILIRUBIN 0.4 mg/dL (0.2-1.0); TOTAL PROTEIN 7.4 g/dL (6.4-8.2)
[2021-12-17] MEDS: INSULIN LISPRO 300 UNITS/3 ML VIAL. SQ SCH ×3 (07:37→16:49)
[2021-12-17] MEDS ORDERED: INSULIN LISPRO 100 UNIT/ML 3ML VIAL for OP,RR ONLY. SQ SCH (08:00)
[2021-12-17] MEDS: SEVELAMER CARBONATE 800 MG TABLET. PO SCH ×2 (08:12→16:33)
[2021-12-17] MEDS: SUCRALFATE 1 GM TABLET. PO SCH ×4 (08:12→20:23)
[2021-12-17] MEDS: PANTOPRAZOLE 40 MG TABLET.DR. PO SCH (08:12)
[2021-12-17] MEDS: CARVEDILOL 12.5 MG TABLET. PO SCH ×2 (08:13→16:34)
[2021-12-17 10:55] VITALS: BP 88/48
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
[2021-12-17 15:00] VITALS: BP 90/56
[2021-12-17] MEDS: ONDANSETRON ODT 4 MG TAB.RAPDIS. PO PRN (16:33)
--- NOTE | 2021-12-17 17:44 | CONS ---
DATE OF CONSULTATION: 12/17/2021 NEPHROLOGY CONSULTATION REQUESTING PHYSICIAN: Hospitalist. REASON FOR CONSULTATION: End-stage renal disease, hemodialysis dependent. HISTORY OF PRESENT ILLNESS: A 66-year-old female with history of diabetes mellitus, hypertension, end-stage renal disease. She undergoes hemodialysis on a Saturday, , Saturday schedule. She has sustained fall, hit the right side of her head and shoulder. She did have some emesis after her fall. No loss of consciousness. On admission, she underwent urgent dialysis. She tolerated this well. PAST MEDICAL HISTORY: Diabetes mellitus, hypertension, end-stage renal disease, hemodialysis dependent, GE reflux disease, GI bleed, hypertension, nephrolithiasis, pancreatitis, pneumonia, peptic ulcer disease, cholecystectomy, hysterectomy, AV fistula to left upper extremity, secondary hyperparathyroidism, renal disease, anemia of chronic kidney disease. ALLERGIES: None. MEDICATIONS: Noted per medication list. FAMILY HISTORY: Notable for end-stage renal disease. SOCIAL HISTORY: The patient resides with assistance. She does smoke, does not drink or use recreational drugs. REVIEW OF SYSTEMS: Other than fall and discomfort in head and back and nausea, remainder of review of systems is noncontributory other than weakness. PHYSICAL EXAMINATION: GENERAL APPEARANCE: The patient is awake, conversant. HEENT: Clear. NECK: No increased JVD. LUNGS: Clear. CARDIAC: Without S3 or rub. ABDOMEN: Obese. Bowel sounds present. Nontender. EXTREMITIES: Without edema. NEUROPSYCHIATRIC: Follows appropriately, fair attention to detail. LABORATORY DATA: Sodium 136, potassium 4.8, chloride 96, CO2 of 29, BUN 24, creatinine 4.9, GFR is 10.7, hemoglobin 6.5, hematocrit 21.7. IMPRESSION: 1. End-stage renal disease secondary to diabetic nephropathy, hypertension, nephrosclerosis. 2. Anemia of chronic kidney disease and likely acute blood loss. 3. Status post fall. RECOMMENDATIONS: 1. Ongoing dialysis Saturday, and Saturday. 2. Epogen for anemia of chronic kidney disease. 3. Transfusion as needed. 4. We will follow. ELINOR ARIAS: Dulce TID: [id number]
[2021-12-17 19:20] VITALS: BP 87/56
[2021-12-17 23:06] VITALS: BP 92/49
[2021-12-18] MEDS: oxyCODONE/APAP 7.5/325 1 TAB TABLET PO PRN ×3 (02:55→21:11)
[2021-12-18 03:22] VITALS: BP 99/49
[2021-12-18 07:00] VITALS: BP 103/48
[2021-12-18] MEDS: INSULIN LISPRO 300 UNITS/3 ML VIAL. SQ SCH ×5 (08:00→18:10)
[2021-12-18] MEDS: CARVEDILOL 12.5 MG TABLET. PO SCH ×2 (08:00→17:00)
[2021-12-18] MEDS: SEVELAMER CARBONATE 800 MG TABLET. PO SCH ×2 (08:04→17:35)
[2021-12-18] MEDS: PANTOPRAZOLE 40 MG TABLET.DR. PO SCH (08:04)
[2021-12-18] MEDS: SUCRALFATE 1 GM TABLET. PO SCH ×4 (08:04→21:11)
--- NOTE | 2021-12-18 10:37 | PDOC ---
DATE OF SERVICE DATE: 12/18/21 TIME: 10:31 SUBJECTIVE ROS Denies any SOB Required emergent dialysis on Saturday OBJECTIVE Vital Signs Vital Signs Date Time Temp Pulse Resp B/P (MAP) Pulse Ox O2 Delivery O2 Flow Rate FiO2 12/18/21 08:00 79 103/48 12/18/21 07:00 97.9 20 93 Room Air 97.9 I & 0 Intake and Output 12/18/21 07:00 Intake Total 360 ml Balance 360 ml Intake Oral 360 ml PHYSICAL EXAM Physical Exam GEN.: No apparent distress HEENT: OM moist NECK: Supple. LUNGS: Clear to auscultation, non labored HEART: RRR, S1, S2 present. ABDOMEN: Soft, nontender. Positive bowel sounds. EXTREMITIES: Left extremity fistula ; No LE edema NEUROLOGIC: grossly normal SKIN: No rash No CVA or SP tenderness, No Carbajal DIAGNOSIS/ASSESSMENT Assessment & Plan ESRD 2/ 2 DM and HTN. On HD TTS ;On admission, she underwent urgent dialysis on 12/16 . Currently no indication of dialysis n clinical exam. No labs today HyperKalemia POA- was dialyzed. K normal on 12/17 Anemia Chronic, Hx of GI bleed . Hgb < 7 Yesterday. No labs this morning. PRBC per primary Hx of hematemesis / Dieulafoy's lesions, s/p post-clipping. ESRD-MBD- Contiue Phos Binders Hx of Fall at home -S/P ORIF left distal femur fracture on 04/06 Hx of frequent c/o dark coffee ground emesis and dark black stool with clots. s/p Endotherapy 04/10/21 H/o recurrent UGI bleeding, refractory ulcer - endotherapy 01/12/20 (has had 7 EGDs since 2016), past GDA embolization by and surgical evals (poor surgical candidate) S/P EGD on 10/11 Chrionic Leukopenia, thrombocytopenia, macrocytosis - bone marrow biopsy was r ecommended per heme/onc in the past. WBC lower compared to her previous admissions. Defer to primary Hx of Nonobstructing calculi in the right kidney with no hydronephrosis or obstructive uropathy seen. H/o pancreatitis, alcoholic GERD, cirrhosis, Hep C, h/o C Diff, h/o pancreatitis COMMENT/RELEVANT DATA Meds Current Medications Medications (Trade) Dose Ordered Sig/Kimberly Start Time Stop Time Status Last Admin Dose Admin Acetaminophen (Tylenol) 650 mg PRN Q6HRS PRN 12/16/21 17:45 Carvedilol (Coreg) 25 mg BIDWMEALS 12/17/21 08:00 12/18/21 08:00 25 MG Dextrose (Dextrose 50%-Water Syringe) 12.5 gm PRN Q15MIN PRN 12/16/21 19:45 Dextrose (Iv Dextrose 5%) 250 ml PRN Q15MIN PRN 12/16/21 19:45 Dicyclomine HCl (Bentyl) 10 mg PRN Q6HRS PRN 12/16/21 19:15 Fentanyl Citrate (Fentanyl 2ml Vial) 50 mcg 1X ONCE 12/16/21 12:30 12/16/21 12:31 DC 12/16/21 14:03 50 MCG Guaifenesin (Robitussin Dm) 10 ml PRN Q6HRS PRN 12/16/21 17:45 Hydralazine HCl (Apresoline Inj) 10 mg PRN Q4HRS PRN 12/16/21 17:45 Info (CONTRAST GIVEN -- Rx MONITORING) 1 each PRN DAILY PRN 12/16/21 12:45 12/18/21 12:44 Info (PHARMACY MONITORING -- do not chart) 1 each PRN DAILY PRN 12/16/21 18:15 Insulin Human Lispro (HumaLOG VIAL for OP,RR ONLY) TIDWMEALS 12/17/21 08:00 UNV Insulin Human Lispro (HumaLOG) 0-5 UNITS TIDWMEALS 12/17/21 08:00 Iohexol (Omnipaque 300 Mg/ml) 100 ml STK-MED ONCE 12/16/21 20:50 12/16/21 20:50 DC Ondansetron HCl (Zofran Odt) 4 mg PRN Q4HRS PRN 12/17/21 16:30 12/17/21 16:33 4 MG Ondansetron HCl (Zofran) 4 mg PRN Q4HRS PRN 12/16/21 17:45 12/17/21 04:39 4 MG Oxycodone/ Acetaminophen (Percocet 7.5/ 325) 1 tab PRN QID PRN 12/16/21 19:15 12/18/21 02:55 1 TAB Pantoprazole Sodium (Protonix) 40 mg DAILYAC 12/17/21 07:30 12/18/21 08:04 40 MG Sevelamer Carbonate (Renvela) 800 mg BIDWMEALS 12/17/21 08:00 12/18/21 08:04 800 MG Sodium Chloride 1,000 ml @ 1,000 mls/hr Q1H PRN 12/16/21 18:15 12/17/21 00:14 DC Sucralfate (Carafate) 1 gm QIDACHS 12/16/21 21:00 12/18/21 08:04 1 GM Lab Laboratory Tests Test 12/17/21 11:48 12/17/21 16:48 12/17/21 20:43 12/18/21 07:46 Glucose (Fingerstick) 133 mg/dL (70-99) 110 mg/dL (70-99) 112 mg/dL (70-99) 102 mg/dL (70-99) Results All relevant outside records, renal labs, imaging studies, telemetry/EKG's were reviewed. Justicifation of Admission Dx: Justifications for Admission: Justification of Admission Dx: N/A Acute Renal Failure: Serum Cr > 4mg/dL Chronic Renal Failure: Hemodynamic Instability Sepsis: Infection GINO TAN MD Dec 18, 2021 10:37
[2021-12-18 11:00] VITALS: BP 75/39
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
--- NOTE | 2021-12-18 12:38 | NUR ---
SW following. Discussed with RN, pt from home, room air, renal diet. Pt needs dialysis, and blood. Likely discharge after dialysis. SW will continue to follow.
[2021-12-18 13:57] LABS: BASO % 2 % (0-3); EOS # 0.1 x10^3/uL (0.0-0.7); EOS % 2 % (0-3); HEMATOCRIT 21.9 % (36.0-47.0); LYMPH # 0.4 x10^3/uL (1.0-4.8); LYMPH % 17 % (24-48); MEAN CORPUSCULAR HEMOGLOBIN 34 pg (25-35); MEAN CORPUSCULAR HGB CONC 32 g/dL (31-37); MEAN CORPUSCULAR VOLUME 107 fL (79-100); MONO # 0.4 x10^3/uL (0.0-1.1); MONO % 18 % (0-9); NEUT # 1.5 x10^3/uL (1.8-7.7); NEUT % 61 % (31-73); PLATELET COUNT 92 x10^3/uL (140-400); RED BLOOD COUNT 2.06 x10^6/uL (3.50-5.40); RED CELL DISTRIBUTION WIDTH 19.6 % (11.5-14.5); WHITE BLOOD COUNT 2.5 x10^3/uL (4.0-11.0)
--- NOTE | 2021-12-18 14:18 | NUR ---
Call placed to Dr. Ochoa to notify him of patient's hemoglobin of 7.0, awaiting callback.
--- NOTE | 2021-12-18 14:33 | NUR ---
Return call from Dr. Ochoa, no new orders received, he said that the plan is to give patient a unit of blood during dialysis tomorrow (12/19/21).
[2021-12-18 15:00] VITALS: BP 91/42
[2021-12-18 19:53] VITALS: BP 80/44
[2021-12-18] MEDS: ONDANSETRON PF 4 MG/2 ML VIAL. IVP PRN (21:10)
[2021-12-18] MEDS: EPOETIN ALFA-EPBX for ESRD 20,000 UNIT/ML VIAL. SQ SCH (21:10)
[2021-12-18 23:35] VITALS: BP 195/55
[2021-12-19 03:06] VITALS: BP 115/62
[2021-12-19 07:00] VITALS: BP 147/60
[2021-12-19 07:34] LABS: ALBUMIN 2.9 g/dL (3.4-5.0); CALCIUM 8.5 mg/dL (8.5-10.1); GFR 7.1; PHOSPHORUS 5.8 mg/dL (2.6-4.7); POTASSIUM 5.3 mmol/L (3.5-5.1)
[2021-12-19] MEDS: CARVEDILOL 12.5 MG TABLET. PO SCH ×2 (08:00→17:00)
[2021-12-19] MEDS ORDERED: DIALYSIS PATIENT. MC PRN ×2 (08:15)
[2021-12-19] MEDS ORDERED: IV NORMAL SALINE 1000ML BAG 1,000 ML IV PRN ×2 (08:15)
[2021-12-19] MEDS: oxyCODONE/APAP 7.5/325 1 TAB TABLET PO PRN ×3 (10:49→22:09)
--- NOTE | 2021-12-19 11:05 | PDOC ---
DATE OF SERVICE DATE: 12/19/21 TIME: 11:05 SUBJECTIVE ROS Seen during dialysis, no acute concerns or complaints OBJECTIVE Vital Signs Vital Signs Date Time Temp Pulse Resp B/P (MAP) Pulse Ox O2 Delivery O2 Flow Rate FiO2 12/19/21 10:49 19 93 Room Air 12/19/21 07:00 97.9 69 147/60 (89) 97.9 12/18/21 08:00 94.0 I & 0 Intake and Output 12/19/21 07:00 Intake Total 0 ml Balance 0 ml Intake Oral 0 ml PHYSICAL EXAM Physical Exam GEN.: No apparent distress HEENT: OM moist NECK: Supple. LUNGS: Clear to auscultation, non labored HEART: RRR, S1, S2 present. ABDOMEN: Soft, nontender. Positive bowel sounds. EXTREMITIES: Left extremity fistula ; No LE edema NEUROLOGIC: grossly normal SKIN: No rash No CVA or SP tenderness, No Carbajal DIAGNOSIS/ASSESSMENT Assessment & Plan ESRD 2/ 2 DM and HTN. On HD TTS ;On admission, she underwent urgent dialysis on 12/16 .Seen during dialysis , tolerating well. Continue as ordered. Sánchez BURGOS HyperKalemia K mildly elevated , dialysis Anemia Chronic, Hx of GI bleed . Hgb < 7 last 2 days PRBC per primary Hx of hematemesis / Dieulafoy's lesions, s/p post-clipping. ESRD-MBD- Continue Phos Binders , Phos Mildly elevated above goal Hx of Fall at home -S/P ORIF left distal femur fracture on 04/06 Hx of frequent c/o dark coffee ground emesis and dark black stool with clots. s/p Endotherapy 04/10/21 H/o recurrent UGI bleeding, refractory ulcer - endotherapy 01/12/20 (has had 7 EGDs since 2016), past GDA embolization by and surgical evals (poor surgical candidate) S/P EGD on 10/11 Chrionic Leukopenia, thrombocytopenia, macrocytosis - bone marrow biopsy was recommended per heme/onc in the past. WBC lower compared to her previous admissions. Defer to primary Hx of Nonobstructing calculi in the right kidney with no hydronephrosis or obstructive uropathy seen. H/o pancreatitis, alcoholic GERD, cirrhosis, Hep C, h/o C Diff, h/o pancreatitis COMMENT/RELEVANT DATA Meds Current Medications Medications (Trade) Dose Ordered Sig/Kimberly Start Time Stop Time Status Last Admin Dose Admin Acetaminophen (Tylenol) 650 mg PRN Q6HRS PRN 12/16/21 17:45 Carvedilol (Coreg) 25 mg BIDWMEALS 12/17/21 08:00 12/18/21 08:00 25 MG Dextrose (Dextrose 50%-Water Syringe) 12.5 gm PRN Q15MIN PRN 12/16/21 19:45 Dextrose (Iv Dextrose 5%) 250 ml PRN Q15MIN PRN 12/16/21 19:45 Dicyclomine HCl (Bentyl) 10 mg PRN Q6HRS PRN 12/16/21 19:15 Epoetin Bolivar-epbx (RETACRIT for ESRD PTS) 10,000 unit MoWeFr@2100 12/18/21 21:00 12/18/21 21:10 10,000 UNIT Fentanyl Citrate (Fentanyl 2ml Vial) 50 mcg 1X ONCE 12/16/21 12:30 12/16/21 12:31 DC 12/16/21 14:03 50 MCG Guaifenesin (Robitussin Dm) 10 ml PRN Q6HRS PRN 12/16/21 17:45 Hydralazine HCl (Apresoline Inj) 10 mg PRN Q4HRS PRN 12/16/21 17:45 Info (CONTRAST GIVEN -- Rx MONITORING) 1 each PRN DAILY PRN 12/16/21 12:45 12/18/21 12:44 DC Info (PHARMACY MONITORING -- do not chart) 1 each PRN DAILY PRN 12/19/21 08:15 Insulin Human Lispro (HumaLOG VIAL for OP,RR ONLY) TIDWMEALS 12/17/21 08:00 UNV Insulin Human Lispro (HumaLOG) 0-5 UNITS TIDWMEALS 12/17/21 08:00 Iohexol (Omnipaque 300 Mg/ml) 100 ml STK-MED ONCE 12/16/21 20:50 12/16/21 20:50 DC Ondansetron HCl (Zofran Odt) 4 mg PRN Q4HRS PRN 12/17/21 16:30 12/17/21 16:33 4 MG Ondansetron HCl (Zofran) 4 mg PRN Q4HRS PRN 12/16/21 17:45 12/18/21 21:10 4 MG Oxycodone/ Acetaminophen (Percocet 7.5/ 325) 1 tab PRN QID PRN 12/16/21 19:15 12/19/21 10:49 1 TAB Pantoprazole Sodium (Protonix) 40 mg DAILYAC 12/17/21 07:30 12/18/21 08:04 40 MG Sevelamer Carbonate (Renvela) 800 mg BIDWMEALS 12/17/21 08:00 12/18/21 17:35 800 MG Sodium Chloride 1,000 ml @ 400 mls/hr Q2H30M PRN 12/19/21 08:15 12/19/21 20:14 Sucralfate (Carafate) 1 gm QIDACHS 12/16/21 21:00 12/18/21 21:11 1 GM Lab Laboratory Tests Test 12/18/21 11:24 12/18/21 13:38 12/18/21 16:29 12/18/21 20:43 Glucose (Fingerstick) 112 mg/dL (70-99) 124 mg/dL (70-99) 107 mg/dL (70-99) White Blood Count 2.5 x10^3/uL (4.0-11.0) Red Blood Count 2.06 x10^6/uL (3.50-5.40) Hemoglobin 7.0 g/dL (12.0-15.5) Hematocrit 21.9 % (36.0-47.0) Mean Corpuscular Volume 107 fL (79-100) Mean Corpuscular Hemoglobin 34 pg (25-35) Mean Corpuscular Hemoglobin Concent 32 g/dL (31-37) Red Cell Distribution Width 19.6 % (11.5-14.5) Platelet Count 92 x10^3/uL (140-400) Neutrophils (%) (Auto) 61 % (31-73) Lymphocytes (%) (Auto) 17 % (24-48) Monocytes (%) (Auto) 18 % (0-9) Eosinophils (%) (Auto) 2 % (0-3) Basophils (%) (Auto) 2 % (0-3) Neutrophils # (Auto) 1.5 x10^3/uL (1.8-7.7) Lymphocytes # (Auto) 0.4 x10^3/uL (1.0-4.8) Monocytes # (Auto) 0.4 x10^3/uL (0.0-1.1) Eosinophils # (Auto) 0.1 x10^3/uL (0.0-0.7) Basophils # (Auto) 0.0 x10^3/uL (0.0-0.2) Test 12/19/21 05:50 Sodium Level 135 mmol/L (136-145) Potassium Level 5.3 mmol/L (3.5-5.1) Chloride Level 94 mmol/L (98-107) Carbon Dioxide Level 29 mmol/L (21-32) Anion Gap 12 (6-14) Blood Urea Nitrogen 36 mg/dL (7-20) Creatinine 7.0 mg/dL (0.6-1.0) Estimated GFR (Cockcroft-Gault) 7.1 Glucose Level 88 mg/dL (70-99) Calcium Level 8.5 mg/dL (8.5-10.1) Phosphorus Level 5.8 mg/dL (2.6-4.7) Albumin 2.9 g/dL (3.4-5.0) Results All relevant outside records, renal labs, imaging studies, telemetry/EKG's were reviewed. Justicifation of Admission Dx: Justifications for Admission: Justification of Admission Dx: N/A Acute Renal Failure: Serum Cr > 4mg/dL Chronic Renal Failure: Hemodynamic Instability Sepsis: Infection GINO TAN MD Dec 19, 2021 11:05
[2021-12-19] MEDS: SUCRALFATE 1 GM TABLET. PO SCH ×4 (11:30→19:56)
[2021-12-19 12:18] VITALS: BP 113/47
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
[2021-12-19 13:15] LABS: HEMATOCRIT 22.6 % (36.0-47.0); HEMOGLOBIN 7.1 g/dL (12.0-15.5); RED BLOOD COUNT 2.12 x10^6/uL (3.50-5.40); RED CELL DISTRIBUTION WIDTH 19.8 % (11.5-14.5); WHITE BLOOD COUNT 2.3 x10^3/uL (4.0-11.0)
--- NOTE | 2021-12-19 13:35 | NUR ---
SW following. Discussed with RN, pt getting dialysis today. Family contacted RN stating pt is becoming difficult to care for at home. Pt declined therapy yesterday, hopefully therapy can work with pt after dialysis today. SW will continue to follow.
[2021-12-19 14:41] VITALS: BP_SYST 112; BP_SYST 92; BP_DIAS 27; BP_DIAS 49
[2021-12-19] MEDS: SEVELAMER CARBONATE 800 MG TABLET. PO SCH ×2 (16:00→17:00)
[2021-12-19] MEDS: PANTOPRAZOLE 40 MG TABLET.DR. PO SCH (16:00)
[2021-12-19] MEDS: INSULIN LISPRO 300 UNITS/3 ML VIAL. SQ SCH (17:00)
[2021-12-19 19:00] VITALS: BP 95/44
[2021-12-19] MEDS: ONDANSETRON ODT 4 MG TAB.RAPDIS. PO PRN (22:09)
[2021-12-19 23:00] VITALS: BP 134/61
[2021-12-20 03:00] VITALS: BP 143/47
[2021-12-20 07:00] VITALS: BP 102/43
[2021-12-20] MEDS: CARVEDILOL 12.5 MG TABLET. PO SCH ×2 (08:00→16:42)
[2021-12-20] MEDS: INSULIN LISPRO 300 UNITS/3 ML VIAL. SQ SCH ×3 (08:00→16:42)
[2021-12-20] MEDS: SUCRALFATE 1 GM TABLET. PO SCH ×4 (09:26→21:20)
[2021-12-20] MEDS: SEVELAMER CARBONATE 800 MG TABLET. PO SCH ×2 (09:26→17:00)
[2021-12-20] MEDS: PANTOPRAZOLE 40 MG TABLET.DR. PO SCH (09:26)
--- NOTE | 2021-12-20 10:14 | PDOC ---
DATE OF SERVICE DATE: 12/20/21 TIME: 10:14 SUBJECTIVE ROS no complaints this morning. Eating breakfast OBJECTIVE Vital Signs Vital Signs Date Time Temp Pulse Resp B/P (MAP) Pulse Ox O2 Delivery O2 Flow Rate FiO2 12/20/21 08:00 76 102/43 12/20/21 07:00 98.2 18 94 Room Air 98.2 I & 0 Intake and Output 12/20/21 07:00 Intake Total 360 ml Balance 360 ml Intake Oral 360 ml PHYSICAL EXAM Physical Exam GEN.: No apparent distress HEENT: OM moist NECK: Supple. LUNGS: Clear to auscultation, non labored HEART: RRR, S1, S2 present. ABDOMEN: Soft, nontender. Positive bowel sounds. EXTREMITIES: Left extremity fistula ; No LE edema NEUROLOGIC: grossly normal SKIN: No rash No CVA or SP tenderness, No Carbajal DIAGNOSIS/ASSESSMENT Assessment & Plan ESRD 2/ 2 DM and HTN. On HD TTS ;On admission, she underwent urgent dialysis on 12/16 . Currently no indication for dialysis today . Resume Dialysis at her OP unit tomorrow, if dced today HyperKalemia Intermittent . Dialyzed yesterday Anemia Chronic, Hx of GI bleed . Hgb < 7 ; Recd PRBC Hx of hematemesis / Dieulafoy's lesions, s/p post-clipping. ESRD-MBD- Continue Phos Binders , Phos Mildly elevated above goal Hx of Fall at home -S/P ORIF left distal femur fracture on 04/06 Hx of frequent c/o dark coffee ground emesis and dark black stool with clots. s/p Endotherapy 04/10/21 H/o recurrent UGI bleeding, refractory ulcer - endotherapy 01/12/20 (has had 7 EGDs since 2016), past GDA embolization by and surgical evals (poor surgical candidate) S/P EGD on 10/11 Chrionic Leukopenia, thrombocytopenia, macrocytosis - bone marrow biopsy was recommended per heme/onc in the past. WBC lower compared to her previous admissions. Defer to primary Hx of Nonobstructing calculi in the right kidney with no hydronephrosis or obstructive uropathy seen. H/o pancreatitis, alcoholic GERD, cirrhosis, Hep C, h/o C Diff, h/o pancreatitis COMMENT/RELEVANT DATA Meds Current Medications Medications (Trade) Dose Ordered Sig/Kimberly Start Time Stop Time Status Last Admin Dose Admin Acetaminophen (Tylenol) 650 mg PRN Q6HRS PRN 12/16/21 17:45 Carvedilol (Coreg) 25 mg BIDWMEALS 12/17/21 08:00 12/18/21 08:00 25 MG Dextrose (Dextrose 50%-Water Syringe) 12.5 gm PRN Q15MIN PRN 12/16/21 19:45 Dextrose (Iv Dextrose 5%) 250 ml PRN Q15MIN PRN 12/16/21 19:45 Dicyclomine HCl (Bentyl) 10 mg PRN Q6HRS PRN 12/16/21 19:15 Epoetin Bolivar-epbx (RETACRIT for ESRD PTS) 10,000 unit MoWeFr@2100 12/18/21 21:00 12/18/21 21:10 10,000 UNIT Fentanyl Citrate (Fentanyl 2ml Vial) 50 mcg 1X ONCE 12/16/21 12:30 12/16/21 12:31 DC 12/16/21 14:03 50 MCG Guaifenesin (Robitussin Dm) 10 ml PRN Q6HRS PRN 12/16/21 17:45 Hydralazine HCl (Apresoline Inj) 10 mg PRN Q4HRS PRN 12/16/21 17:45 Info (CONTRAST GIVEN -- Rx MONITORING) 1 each PRN DAILY PRN 12/16/21 12:45 12/18/21 12:44 DC Info (PHARMACY MONITORING -- do not chart) 1 each PRN DAILY PRN 12/19/21 08:15 Insulin Human Lispro (HumaLOG VIAL for OP,RR ONLY) TIDWMEALS 12/17/21 08:00 UNV Insulin Human Lispro (HumaLOG) 0-5 UNITS TIDWMEALS 12/17/21 08:00 Iohexol (Omnipaque 300 Mg/ml) 100 ml STK-MED ONCE 12/16/21 20:50 12/16/21 20:50 DC Ondansetron HCl (Zofran Odt) 4 mg PRN Q4HRS PRN 12/17/21 16:30 12/19/21 22:09 4 MG Ondansetron HCl (Zofran) 4 mg PRN Q4HRS PRN 12/16/21 17:45 12/18/21 21:10 4 MG Oxycodone/ Acetaminophen (Percocet 7.5/ 325) 1 tab PRN QID PRN 12/16/21 19:15 12/19/21 22:09 1 TAB Pantoprazole Sodium (Protonix) 40 mg DAILYAC 12/17/21 07:30 12/20/21 09:26 40 MG Sevelamer Carbonate (Renvela) 800 mg BIDWMEALS 12/17/21 08:00 12/20/21 09:26 800 MG Sodium Chloride 1,000 ml @ 400 mls/hr Q2H30M PRN 12/19/21 08:15 12/19/21 20:14 DC Sucralfate (Carafate) 1 gm QIDACHS 12/16/21 21:00 12/20/21 09:26 1 GM Lab Laboratory Tests Test 12/19/21 12:13 12/19/21 16:32 12/19/21 19:32 12/20/21 08:00 Glucose (Fingerstick) 77 mg/dL (70-99) 121 mg/dL (70-99) 96 mg/dL (70-99) 72 mg/dL (70-99) Results All relevant outside records, renal labs, imaging studies, telemetry/EKG's were reviewed. Justicifation of Admission Dx: Justifications for Admission: Justification of Admission Dx: N/A Acute Renal Failure: Serum Cr > 4mg/dL Chronic Renal Failure: Hemodynamic Instability Sepsis: Infection GINO TAN MD Dec 20, 2021 10:14
[2021-12-20 11:00] VITALS: BP 111/39
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
[2021-12-20 15:00] VITALS: BP 101/45
--- NOTE | 2021-12-20 15:58 | NUR ---
SW following. Discussed with RN, pt agreeable to SNF. SW met with pt, pt wants [facility] and if they can't take her is choosing to go home with home health. Awaiting acceptance decision from [facility]. Insurance will need to approve if accepted. RN notified. SW will continue to follow.
[2021-12-20 19:00] VITALS: BP 98/33
[2021-12-20] MEDS: oxyCODONE/APAP 7.5/325 1 TAB TABLET PO PRN (21:21)
[2021-12-20] MEDS: EPOETIN ALFA-EPBX for ESRD 20,000 UNIT/ML VIAL. SQ SCH (21:25)
[2021-12-20 23:00] VITALS: BP 110/50
[2021-12-21 03:00] VITALS: BP 98/49
[2021-12-21 05:01] LABS: CREATININE 5.7 mg/dL (0.6-1.0)
[2021-12-21 07:00] VITALS: BP 111/51
[2021-12-21] MEDS: INSULIN LISPRO 300 UNITS/3 ML VIAL. SQ SCH ×3 (08:00→17:00)
[2021-12-21] MEDS: CARVEDILOL 12.5 MG TABLET. PO SCH ×2 (09:48→17:00)
[2021-12-21] MEDS: SUCRALFATE 1 GM TABLET. PO SCH ×4 (09:48→19:53)
[2021-12-21] MEDS: SEVELAMER CARBONATE 800 MG TABLET. PO SCH ×2 (09:48→17:30)
[2021-12-21] MEDS: PANTOPRAZOLE 40 MG TABLET.DR. PO SCH (09:49)
[2021-12-21] MEDS: oxyCODONE/APAP 7.5/325 1 TAB TABLET PO PRN ×2 (10:24→19:53)
--- NOTE | 2021-12-21 10:48 | NUR ---
SW following. Discussed with RN, pt accepted at [facility] pending insurance auth. Pt having dialysis today. Likely discharge to [facility] tomorrow. RN notified. SW will continue to follow.
[2021-12-21 11:00] VITALS: BP 113/47
--- NOTE | 2021-12-21 11:09 | PDOC ---
DATE OF SERVICE DATE: 12/21/21 TIME: 11:08 SUBJECTIVE ROS no complaints this morning. OBJECTIVE Vital Signs Vital Signs Date Time Temp Pulse Resp B/P (MAP) Pulse Ox O2 Delivery O2 Flow Rate FiO2 12/21/21 10:57 Room Air 12/21/21 09:48 70 111/51 12/21/21 07:00 98.0 18 96 98.0 I & 0 Intake and Output 12/21/21 07:00 Intake Total 360 ml Balance 360 ml Intake Oral 360 ml PHYSICAL EXAM Physical Exam GEN.: No apparent distress HEENT: OM moist NECK: Supple. LUNGS: Clear to auscultation, non labored HEART: RRR, S1, S2 present. ABDOMEN: Soft, nontender. Positive bowel sounds. EXTREMITIES: Left extremity fistula ; No LE edema NEUROLOGIC: grossly normal SKIN: No rash No CVA or SP tenderness, No Carbajal DIAGNOSIS/ASSESSMENT Assessment & Plan ESRD 2/ 2 DM and HTN. On HD TTS ;On admission, she underwent urgent dialysis on 12/16 . Dialysis today , discussed treatment plan with [facility] HyperKalemia Intermittent . K normal today Anemia Chronic, Hx of GI bleed . Hgb < 7 ; Recd PRBC Hx of hematemesis / Dieulafoy's lesions, s/p post-clipping. ESRD-MBD- Continue Phos Binders , Phos Mildly elevated above goal Hx of Fall at home -S/P ORIF left distal femur fracture on 04/06 Hx of frequent c/o dark coffee ground emesis and dark black stool with clots. s/p Endotherapy 04/10/21 H/o recurrent UGI bleeding, refractory ulcer - endotherapy 01/12/20 (has had 7 EGDs since 2016), past GDA embolization by and surgical evals (poor surgical candidate) S/P EGD on 10/11 Chrionic Leukopenia, thrombocytopenia, macrocytosis - bone marrow biopsy was recommended per heme/onc in the past. WBC lower compared to her previous admissions. Defer to primary Hx of Nonobstructing calculi in the right kidney with no hydronephrosis or obstructive uropathy seen. H/o pancreatitis, alcoholic GERD, cirrhosis, Hep C, h/o C Diff, h/o pancreatitis COMMENT/RELEVANT DATA Meds Current Medications Medications (Trade) Dose Ordered Sig/Kimberly Start Time Stop Time Status Last Admin Dose Admin Acetaminophen (Tylenol) 650 mg PRN Q6HRS PRN 12/16/21 17:45 Carvedilol (Coreg) 25 mg BIDWMEALS 12/17/21 08:00 12/21/21 09:48 25 MG Dextrose (Dextrose 50%-Water Syringe) 12.5 gm PRN Q15MIN PRN 12/16/21 19:45 Dextrose (Iv Dextrose 5%) 250 ml PRN Q15MIN PRN 12/16/21 19:45 Dicyclomine HCl (Bentyl) 10 mg PRN Q6HRS PRN 12/16/21 19:15 Epoetin Bolivar-epbx (RETACRIT for ESRD PTS) 10,000 unit MoWeFr@2100 12/18/21 21:00 12/20/21 21:25 10,000 UNIT Fentanyl Citrate (Fentanyl 2ml Vial) 50 mcg 1X ONCE 12/16/21 12:30 12/16/21 12:31 DC 12/16/21 14:03 50 MCG Guaifenesin (Robitussin Dm) 10 ml PRN Q6HRS PRN 12/16/21 17:45 Hydralazine HCl (Apresoline Inj) 10 mg PRN Q4HRS PRN 12/16/21 17:45 Info (CONTRAST GIVEN -- Rx MONITORING) 1 each PRN DAILY PRN 12/16/21 12:45 12/18/21 12:44 DC Info (PHARMACY MONITORING -- do not chart) 1 each PRN DAILY PRN 12/19/21 08:15 Insulin Human Lispro (HumaLOG VIAL for OP,RR ONLY) TIDWMEALS 12/17/21 08:00 UNV Insulin Human Lispro (HumaLOG) 0-5 UNITS TIDWMEALS 12/17/21 08:00 Iohexol (Omnipaque 300 Mg/ml) 100 ml STK-MED ONCE 12/16/21 20:50 12/16/21 20:50 DC Ondansetron HCl (Zofran Odt) 4 mg PRN Q4HRS PRN 12/17/21 16:30 12/19/21 22:09 4 MG Ondansetron HCl (Zofran) 4 mg PRN Q4HRS PRN 12/16/21 17:45 12/18/21 21:10 4 MG Oxycodone/ Acetaminophen (Percocet 7.5/ 325) 1 tab PRN QID PRN 12/16/21 19:15 12/21/21 10:24 1 TAB Pantoprazole Sodium (Protonix) 40 mg DAILYAC 12/17/21 07:30 12/21/21 09:49 40 MG Sevelamer Carbonate (Renvela) 800 mg BIDWMEALS 12/17/21 08:00 12/21/21 09:48 800 MG Sodium Chloride 1,000 ml @ 400 mls/hr Q2H30M PRN 12/19/21 08:15 12/19/21 20:14 DC Sucralfate (Carafate) 1 gm QIDACHS 12/16/21 21:00 12/21/21 09:48 1 GM Lab Laboratory Tests Test 12/20/21 11:35 12/20/21 11:39 12/20/21 16:35 12/20/21 19:27 Coronavirus (COVID-19)(PCR) Not detected (NOT DETECTD) Glucose (Fingerstick) 113 mg/dL (70-99) 117 mg/dL (70-99) 122 mg/dL (70-99) Test 12/21/21 04:05 12/21/21 07:49 Sodium Level 136 mmol/L (136-145) Potassium Level 4.0 mmol/L (3.5-5.1) Chloride Level 97 mmol/L (98-107) Carbon Dioxide Level 31 mmol/L (21-32) Anion Gap 8 (6-14) Blood Urea Nitrogen 25 mg/dL (7-20) Creatinine 5.7 mg/dL (0.6-1.0) Estimated GFR (Cockcroft-Gault) 9.0 Glucose Level 120 mg/dL (70-99) Calcium Level 8.0 mg/dL (8.5-10.1) Glucose (Fingerstick) 100 mg/dL (70-99) Results All relevant outside records, renal labs, imaging studies, telemetry/EKG's were reviewed. Justicifation of Admission Dx: Justifications for Admission: Justification of Admission Dx: N/A Acute Renal Failure: Serum Cr > 4mg/dL Chronic Renal Failure: Hemodynamic Instability Sepsis: Infection GINO TAN MD Dec 21, 2021 11:09
[2021-12-21] MEDS ORDERED: IV NORMAL SALINE 1000ML BAG 1,000 ML IV PRN ×2 (11:30)
[2021-12-21] MEDS ORDERED: DIALYSIS PATIENT. MC PRN ×2 (11:30)
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
[2021-12-21] MEDS ORDERED: POLYETHYLENE GLYCOL 3350 17 GM PACKET. PO PRN (14:30)
[2021-12-21 19:30] VITALS: BP 90/45
[2021-12-21] MEDS: SENNOSIDES/DOCUSATE 8.6/50MG TABLET. PO SCH (19:52)
[2021-12-21 23:16] VITALS: BP 75/34
[2021-12-22 03:01] VITALS: BP 98/44
[2021-12-22] MEDS: oxyCODONE/APAP 7.5/325 1 TAB TABLET PO PRN ×2 (04:05→12:09)
[2021-12-22 07:00] VITALS: BP 114/44
[2021-12-22] MEDS: INSULIN LISPRO 300 UNITS/3 ML VIAL. SQ SCH ×2 (07:47→12:00)
[2021-12-22] MEDS: CARVEDILOL 12.5 MG TABLET. PO SCH (08:00)
[2021-12-22] MEDS ORDERED: OXYC1TAB19 PO (10:01)
--- NOTE | 2021-12-22 10:03 | SNU/HH DC ---
DISCHARGE ORDERS DISCHARGE INFORMATION: DISCHARGE DATE: Dec 22, 2021 FINAL DIAGNOSIS Problems Medical Problems: (1) Fall Status: Acute (2) Head injury Status: Acute (3) Hemoglobin low Status: Acute (4) Missed dialysis Status: Acute CONDITION ON DISCHARGE: Stable CODE STATUS: Code Status: Full NURSING HOME: SNF STAY <30 DAYS: Yes POST DISCHARGE ORDERS: ACTIVITY ORDERS: No restrictions, Resume previous activity WEIGHT BEARING STATUS: No restrictions, Full weight bearing, As tolerated DIET AFTER DISCHARGE: Renal WOUND/INCISION CARE: Ice to area for comfort, No wound care needed CHECKS AFTER DISCHARGE: CHECKS AFTER DISCHARGE: Check blood press - daily, Check blood sugar, ac/hs, Check your Temp as needed, Weigh Yourself Daily TREATMENT/EQUIPMENT ORDERS: ADAPTIVE EQUIPMENT NEEDED: Four wheeled walker, Walker Physical Therapy For: Evalulation/Treatment Occupational Therapy For: Evaluation/Treatment DISCHARGE MEDICATIONS: Home Meds Active Scripts Oxycodone/Apap 7.5-325 (PERCOCET 7.5-325 MG TABLET ) 1 Each Tablet, 1 TAB PO PRN QID PRN for MODERATE TO SEVERE PAIN for 10 Days, #10 TAB Prov:MELY COLE MD 12/22/21 Sucralfate (CARAFATE) 1 Gm Tablet, 1 GM PO QIDACHS for . for 30 Days, #120 TAB Prov:CASTLE,NIAL K III DO 10/10/21 Dicyclomine Hcl (DICYCLOMINE HCL) 10 Mg Capsule, 10 MG PO PRN Q6HRS PRN for ABDOMINAL CRAMPS for 10 Days, #30 CAP Prov:CASTLE,NIAL K III DO 10/10/21 Insulin Lispro (Admelog) 100 Unit/1 Ml Vial, 0 UNITS SQ TIDWMEALS for PER PROTOCOL for 10 Days, #1 EACH Prov:ASHIA MOSS MD 06/27/21 Omeprazole (OMEPRAZOLE) 40 Mg Capsule.dr, 1 CAP PO BID for GERD, #60 CAP 3 Refills Prov:REMINGTON BACK MD 05/29/21 Reported Medications Sevelamer HCl (Sevelamer HCl) 800 Mg Tablet, 800 MG PO BID for MDD 02/16/21 Carvedilol (CARVEDILOL) 25 Mg Tablet, 25 MG PO BIDWMEALS for CARDIAC, TAB 03/05/20 Discontinued Reported Medications Oxycodone HCl/Acetaminophen (Oxycodone-Acetaminophn 7.5-325) 1 Each Tablet, 1 TAB PO QID PRN for PAIN 02/16/21 MELY COLE MD Dec 22, 2021 10:03
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
--- NOTE | 2021-12-22 10:25 | PDOC ---
DATE OF SERVICE DATE: 12/22/21 TIME: 10:14 SUBJECTIVE ROS no complaints this morning States doesnt know why she is still in the hospital . OBJECTIVE Vital Signs Vital Signs Date Time Temp Pulse Resp B/P (MAP) Pulse Ox O2 Delivery O2 Flow Rate FiO2 12/22/21 07:00 97.9 64 20 114/44 (67) 96 Room Air 97.9 12/21/21 20:23 94.0 I & 0 Intake and Output 12/22/21 07:08 Intake Total 400 ml Balance 400 ml Intake Oral 400 ml PHYSICAL EXAM Physical Exam GEN.: No apparent distress HEENT: OM moist NECK: Supple. LUNGS: Clear to auscultation, non labored HEART: RRR, S1, S2 present. ABDOMEN: Soft, nontender. Positive bowel sounds. EXTREMITIES: Left extremity fistula ; No LE edema NEUROLOGIC: grossly normal SKIN: No rash No CVA or SP tenderness, No Carbajal DIAGNOSIS/ASSESSMENT Assessment & Plan ESRD 2/ 2 DM and HTN. On HD TTS ;On admission, she underwent urgent dialysis on 12/16 . No indication for dialysis today HyperKalemia Intermittent . K normal today Anemia Chronic, Hx of GI bleed . Hgb < 7 ; Recd PRBC Hx of hematemesis / Dieulafoy's lesions, s/p post-clipping. ESRD-MBD- Continue Phos Binders , Phos Mildly elevated above goal Hx of Fall at home -S/P ORIF left distal femur fracture on 04/06 Hx of frequent c/o dark coffee ground emesis and dark black stool with clots. s/p Endotherapy 04/10/21 H/o recurrent UGI bleeding, refractory ulcer - endotherapy 01/12/20 (has had 7 EGDs since 2016), past GDA embolization by and surgical evals (poor surgical candidate) S/P EGD on 10/11 Chrionic Leukopenia, thrombocytopenia, macrocytosis - bone marrow biopsy was recommended per heme/onc in the past. WBC lower compared to her previous admissions. Defer to primary Hx of Nonobstructing calculi in the right kidney with no hydronephrosis or obstructive uropathy seen. H/o pancreatitis, alcoholic GERD, cirrhosis, Hep C, h/o C Diff, h/o pancreatitis DC per primary . Awaiting Placement COMMENT/RELEVANT DATA Meds Current Medications Medications (Trade) Dose Ordered Sig/Kimberly Start Time Stop Time Status Last Admin Dose Admin Acetaminophen (Tylenol) 650 mg PRN Q6HRS PRN 12/16/21 17:45 Carvedilol (Coreg) 25 mg BIDWMEALS 12/17/21 08:00 12/21/21 09:48 25 MG Dextrose (Dextrose 50%-Water Syringe) 12.5 gm PRN Q15MIN PRN 12/16/21 19:45 Dextrose (Iv Dextrose 5%) 250 ml PRN Q15MIN PRN 12/16/21 19:45 Dicyclomine HCl (Bentyl) 10 mg PRN Q6HRS PRN 12/16/21 19:15 Epoetin Bolivar-epbx (RETACRIT for ESRD PTS) 10,000 unit MoWeFr@2100 12/18/21 21:00 12/20/21 21:25 10,000 UNIT Fentanyl Citrate (Fentanyl 2ml Vial) 50 mcg 1X ONCE 12/16/21 12:30 12/16/21 12:31 DC 12/16/21 14:03 50 MCG Guaifenesin (Robitussin Dm) 10 ml PRN Q6HRS PRN 12/16/21 17:45 Hydralazine HCl (Apresoline Inj) 10 mg PRN Q4HRS PRN 12/16/21 17:45 Info (CONTRAST GIVEN -- Rx MONITORING) 1 each PRN DAILY PRN 12/16/21 12:45 12/18/21 12:44 DC Info (PHARMACY MONITORING -- do not chart) 1 each PRN DAILY PRN 12/21/21 11:30 Insulin Human Lispro (HumaLOG VIAL for OP,RR ONLY) TIDWMEALS 12/17/21 08:00 UNV Insulin Human Lispro (HumaLOG) 0-5 UNITS TIDWMEALS 12/17/21 08:00 Iohexol (Omnipaque 300 Mg/ml) 100 ml STK-MED ONCE 12/16/21 20:50 12/16/21 20:50 DC Ondansetron HCl (Zofran Odt) 4 mg PRN Q4HRS PRN 12/17/21 16:30 12/19/21 22:09 4 MG Ondansetron HCl (Zofran) 4 mg PRN Q4HRS PRN 12/16/21 17:45 12/18/21 21:10 4 MG Oxycodone/ Acetaminophen (Percocet 7.5/ 325) 1 tab PRN QID PRN 12/16/21 19:15 12/22/21 04:05 1 TAB Pantoprazole Sodium (Protonix) 40 mg DAILYAC 12/17/21 07:30 12/21/21 09:49 40 MG Polyethylene Glycol (miraLAX PACKET) 17 gm PRN DAILY PRN 12/21/21 14:30 Senna/Docusate Sodium (Senna Plus) 1 tab BID 12/21/21 21:00 12/21/21 19:52 1 TAB Sevelamer Carbonate (Renvela) 800 mg BIDWMEALS 12/17/21 08:00 12/21/21 17:30 800 MG Sodium Chloride 1,000 ml @ 400 mls/hr Q2H30M PRN 12/21/21 11:30 12/21/21 23:29 DC Sucralfate (Carafate) 1 gm QIDACHS 12/16/21 21:00 12/21/21 19:53 1 GM Lab Laboratory Tests Test 12/21/21 11:23 12/21/21 17:28 12/21/21 20:01 12/22/21 07:24 Glucose (Fingerstick) 112 mg/dL (70-99) 106 mg/dL (70-99) 148 mg/dL (70-99) 113 mg/dL (70-99) Results All relevant outside records, renal labs, imaging studies, telemetry/EKG's were reviewed. Justicifation of Admission Dx: Justifications for Admission: Justification of Admission Dx: N/A Acute Renal Failure: Serum Cr > 4mg/dL Chronic Renal Failure: Hemodynamic Instability Sepsis: Infection GINO TAN MD Dec 22, 2021 10:25
--- NOTE | 2021-12-22 10:42 | NUR ---
SW following. Discussed with RN, discharge orders faxed to [facility]. [facility] transport arranged for 1200. RN notified.
[2021-12-22] MEDS: SUCRALFATE 1 GM TABLET. PO SCH ×2 (10:45→12:07)
[2021-12-22] MEDS: SEVELAMER CARBONATE 800 MG TABLET. PO SCH (10:45)
[2021-12-22] MEDS: PANTOPRAZOLE 40 MG TABLET.DR. PO SCH (10:46)
[2021-12-22] MEDS: SENNOSIDES/DOCUSATE 8.6/50MG TABLET. PO SCH (10:46)
[2021-12-22 11:00] VITALS: BP 102/37
--- NOTE | 2021-12-22 14:20 | NUR ---
Patient discharged to [facility] no IV, telemonitor discontinued. Belongings with patient. Education given. Report given to Mari at [facility]. Daughter Sheba was informed.
== END 2021-12-22 14:20 | DRG 640 ==
LOC: ER 10:28 → ED HOLD 13:38 → 5 SOUTH 14:42
PROVIDERS: ADMIT Internal Medicine; ATTEND Internal Medicine
PROC: 5A1D70Z Performance of Urinary Filtration, Intermittent, Less than 6 Hours Per Day (ICD-10-PCS; 2021-12-16)
PROC: 5A1D70Z Performance of Urinary Filtration, Intermittent, Less than 6 Hours Per Day (ICD-10-PCS; 2021-12-19)
PROC: 5A1D70Z Performance of Urinary Filtration, Intermittent, Less than 6 Hours Per Day (ICD-10-PCS; principal; 2021-12-21)
DX: E87.70 Fluid overload, unspecified (principal); N18.6 End stage renal disease; I13.2 Hypertensive heart and chronic kidney disease with heart failure and with stage 5 chronic kidney disease, or end stage renal disease; N25.81 Secondary hyperparathyroidism of renal origin; D61.818 Other pancytopenia; E87.5 Hyperkalemia; D63.1 Anemia in chronic kidney disease; E11.22 Type 2 diabetes mellitus with diabetic chronic kidney disease; E66.9 Obesity, unspecified; E78.5 Hyperlipidemia, unspecified; F10.11 Alcohol abuse, in remission; F17.200 Nicotine dependence, unspecified, uncomplicated; G89.29 Other chronic pain; I50.9 Heart failure, unspecified; K21.9 Gastro-esophageal reflux disease without esophagitis; K74.60 Unspecified cirrhosis of liver; K80.20 Calculus of gallbladder without cholecystitis without obstruction; M06.9 Rheumatoid arthritis, unspecified; M17.0 Bilateral primary osteoarthritis of knee; M47.9 Spondylosis, unspecified; E11.21 Type 2 diabetes mellitus with diabetic nephropathy; N20.0 Calculus of kidney; S09.90XA Unspecified injury of head, initial encounter; W18.2XXA Fall in (into) shower or empty bathtub, initial encounter; Y92.009 Unspecified place in unspecified non-institutional (private) residence as the place of occurrence of the external cause; Y93.E1 Activity, personal bathing and showering; Z86.16 Personal history of COVID-19; Z87.11 Personal history of peptic ulcer disease; Z87.442 Personal history of urinary calculi; Z90.710 Acquired absence of both cervix and uterus; Z99.2 Dependence on renal dialysis; E21.3 Hyperparathyroidism, unspecified; Z20.822 Contact with and (suspected) exposure to COVID-19; Z90.49 Acquired absence of other specified parts of digestive tract
CPT/HCPCS: 36415; 70450; 71045; 72125; 73030; 73060; 74177; 80048; 80053; 80069; 82274; 82962; 84484; 85025; 85027; 85610; 85730; 86850; 86900; 86901; 87340; 93005; 96374; J1815; J2405; J3010; Q9967; U0003; 97530-GP; 97535-GO; 99285-25; G0378

== ENCOUNTER 2021-12-24 21:27 | Emergency (ER) | payer OTHER, MEDICAID ==
[~2021-12-24] VITALS: Ht 157.5 cm; Wt 84.0 kg
--- NOTE | 2021-12-24 21:37 | PHYS DOC ---
Past Medical History Past Medical History: Diabetes-Type II, GERD, GI Bleed, Hypertension, Kidney Stone, Pancreatitis, Pneumonia, P.U.D., Renal Failure, Other Additional Past Medical Histor: ESRD, KIDNEY STONES, PANCREATITIS, Past Surgical History: Cholecystectomy, Hysterectomy, Other Additional Past Surgical Histo: fistula LUE Smoking Status: Former Smoker Alcohol Use: None Drug Use: None General Adult EDM: Chief Complaint: GENERALIZED BODY ACHES HPI: HPI: Patient is a 66 year old female who presents via EMS from her senior care facility, with low back pain. She has chronic low back pain. She denies any fall, trauma or injury. She denies any acute urinary symptoms. She is chronically incontinent of urine, no changes today. No gross hematuria reported. No fevers or chills. She reports nausea and vomiting after being given Percocet by the nursing staff there. She had some topical medication applied before this, which she reports only helped for a few minutes. The patient reports that she vomited after being given the Percocet, within 5 minutes, but the nursing staff reports that there was about an hour later. It is unclear if she vomited pill fragments or not. The patient has been seen multiple times for the same problem. She denies any acute changes in her pain today. No reported fever. She denies chest pain, cough, dyspnea. She actually denies abdominal pain at this time. The patient called 911 from her room at the care facility. Review of Systems: Review of Systems: Constitutional: Denies fever or chills. [] HENT: Denies nasal congestion or sore throat. [] Respiratory: Denies cough or shortness of breath. [] Cardiovascular: Denies chest pain GI: Denies abdominal pain, reports nausea and vomiting. Denies bowel habit changes : Denies urinary symptoms Musculoskeletal: Neck low back pain. Integument: Denies rash. [] Neurologic: Denies headache, focal weakness or sensory changes. She has chronic, generalized and unchanged motor weakness. Psychiatric: Chronic anxiety Heart Score: C/O Chest Pain: No Risk Factors: Risk Factors: DM, Current or recent (<one month) smoker, HTN, HLP, family history of CAD, obesity. Risk Scores: Score 0 - 3: 2.5% MACE over next 6 weeks - Discharge Home Score 4 - 6: 20.3% MACE over next 6 weeks - Admit for Clinical Observation Score 7 - 10: 72.7% MACE over next 6 weeks - Early Invasive Strategies Allergies: Allergies: Allergies Coded Allergies Type Severity Reaction Last Updated Verified No Known Drug Allergies 06/19/21 No Physical Exam: PE: Constitutional: Well developed, well nourished, chronically ill-appearing female, no acute distress. Nontoxic. Appears much older than stated age. HENT: Normocephalic, atraumatic Eyes: Conjunctiva normal, no discharge. [] Neck: Trachea is midline, neck is supple and nontender. Cardiovascular:Heart rate regular rhythm, perfusion normal, bilateral lower extremity pitting edema. Lungs & Thorax: Diminished breath sounds in bilateral bases. Upper and midlung chaudhry are clear to auscultation. No wheezing. No stridor. Equal chest rise. No evidence of tachypnea, stridor or respiratory distress. Abdomen: Abdomen is obese, soft, nondistended, nontender to palpation, no palpable pulsatile mass. No CVA tenderness. Skin: Warm, dry Back: Minimally limited range of motion with flexion, forward sitting. No midlin e step-offs or deformity. Diffuse lumbar tenderness, midline and paraspinal. Extremities: Lateral, symmetric 1+ pitting lower extremity edema. Significant skin and venous stasis dermatitis. No warmth or erythema. No acute deformity, no focal areas of lower extremity tenderness. Pelvis is stable Neurologic: She is awake, alert and oriented x3, no facial asymmetry, generalized and diffuse bilateral lower extremity motor weakness, symmetric, no foot drop. Sensation grossly intact. 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 Speech is fluent. Psychologic: Anxious, cooperative EKG: EKG: [] Radiology/Procedures: Radiology/Procedures: IMAGING REPORT Signed PATIENT: CESAR AGEE AACCOUNT: [id number] : 1955 LOCATION: ER AGE: 66 SEX: F EXAM STATUS: REG ER ORD. PHYSICIAN: CHICO JACOB DO REASON: low back pain PROCEDURE: CT LUMBAR SPINE WO CONTRAST Exam: CT of lumbar spine without contrast INDICATION: Lower back pain TECHNIQUE: Sequential axial images through the lumbar spine obtained without IV contrast. Sagittal and coronal reformatted images were reconstructed from the a xial data and reviewed. Exposure: One or more of the following in the visualized dose reduction techniques were utilized for this examination: 1. Automated exposure control 2. Adjustment of the MA and/or KV according to patient size 3. Use of iterative of reconstructive technique Comparisons: Abdomen pelvis CT 12/16/2021 FINDINGS: Vertebral body heights are well-maintained. There is grade 1 anterolisthesis of L4 on L5. Fracture to the lumbar spine is not identified. Multilevel spondylotic change in the lumbar spine with degenerative disc disease greatest at L2-L3, L3-L4 and L4-L5. There is a broad-based disc bulge at L4-L5 with ligamentum flavum thickening and facet arthropathy causing moderate spinal canal stenosis and at least moderate bilateral neural foraminal stenosis. Visualized paraspinal soft tissues are unremarkable. IMPRESSION: Multilevel spondylotic changes lumbar spine as described above. Electronically signed by: Ross Hirsch MD (12/24/2021 10:53 PM) [facility] DICTATED and SIGNED BY: ROSS HIRSCH MD DATE: 12/24/21 [id number] 0 Course & Med Decision Making: Course & Med Decision Making Pertinent Labs and Imaging studies reviewed. (See chart for details) The patient is given IV fentanyl, IV Zofran, IV Ativan. She is resting comfortably, vital signs are stable. CT imaging reveals no evidence of acute fracture. The findings, differential diagnosis and plan of care explained to the patient. Her laboratory exam appears to be actually quite improved and stable for her chronic condition. There is no current indication for hospitalization, further invasive exams or further imaging based on current clinical presentation. She is discharged back to her senior care facility with a prescription for ODT Zofran. Return precautions are given. She should follow-up with her primary care physician and specialty physicians as scheduled. Dragon Disclaimer: Dragon Disclaimer: This electronic medical record was generated, in whole or in part, using a voice recognition dictation system. Departure Departure Impression: Primary Impression: Chronic back pain Additional Impression: Nausea and vomiting Disposition: [facility] Condition: STABLE Referrals: Ashley LIAO MD (PCP) Patient Instructions: Chronic Back Pain Additional Instructions: Take the medication as directed/as needed. You may take your prescription medications as directed by your primary care physician. Return if you have any acute injury or trauma, if you develop severe abdominal pain, uncontrolled vomiting, dehydration, vomiting blood, fever 100.4 or higher, if you are newly or acutely injured or for any other concerns. Scripts Ondansetron (ONDANSETRON ODT) 4 Mg Tab.rapdis 1 TAB PO PRN Q6-8HRS, #30 TAB Prov: CHICO JACOB DO 12/24/21 CHICO JACOB DO Dec 24, 2021 21:37
[2021-12-24] MEDS ORDERED: fentaNYL PF VIAL 100 MCG/2 ML VIAL IVP ONE (22:00)
[2021-12-24] MEDS ORDERED: ONDANSETRON PF 4 MG/2 ML VIAL. IVP ONE (22:00)
[2021-12-24 22:11] LABS: BASO % 1 % (0-3); EOS # 0.1 x10^3/uL (0.0-0.7); EOS % 4 % (0-3); HEMOGLOBIN 7.6 g/dL (12.0-15.5); LYMPH # 0.4 x10^3/uL (1.0-4.8); LYMPH % 15 % (24-48); MEAN CORPUSCULAR HEMOGLOBIN 33 pg (25-35); MEAN CORPUSCULAR HGB CONC 32 g/dL (31-37); MEAN CORPUSCULAR VOLUME 105 fL (79-100); MONO # 0.3 x10^3/uL (0.0-1.1); MONO % 14 % (0-9); NEUT # 1.6 x10^3/uL (1.8-7.7); NEUT % 67 % (31-73); PLATELET COUNT 106 x10^3/uL (140-400); RED BLOOD COUNT 2.29 x10^6/uL (3.50-5.40); RED CELL DISTRIBUTION WIDTH 18.4 % (11.5-14.5); WHITE BLOOD COUNT 2.5 x10^3/uL (4.0-11.0)
[2021-12-24 22:21] LABS: CALCIUM 8.7 mg/dL (8.5-10.1); CREATININE 4.5 mg/dL (0.6-1.0); GFR 11.8; MAGNESIUM 2.2 mg/dL (1.8-2.4); POTASSIUM 4.3 mmol/L (3.5-5.1)
--- NOTE | 2021-12-24 22:55 | RAD ---
Exam: CT of lumbar spine without contrast INDICATION: Lower back pain TECHNIQUE: Sequential axial images through the lumbar spine obtained without IV contrast. Sagittal an d coronal reformatted images were reconstructed from the axial data and reviewed. Exposure: One or more of the following in the visualized dose reduction techniques were utilized for this examination: 1. Automated exposure control 2. Adjustment of the MA and/or KV according to patient size 3. Use of iterative of reconstructive technique Comparisons: Abdomen pelvis CT 12/16/2021 FINDINGS: Vertebral body heights are well-maintained. There is grade 1 anterolisthesis of L4 on L5. Fracture to the lumbar spine is not identified. Multilevel spondylotic change in the lumbar spine with degenerative disc disease greatest at L2-L3, L 3-L4 and L4-L5. There is a broad-based disc bulge at L4-L5 with ligamentum flavum thickening and face t arthropathy causing moderate spinal canal stenosis and at least moderate bilateral neural foraminal stenosis. Visualized paraspinal soft tissues are unremarkable. IMPRESSION: Multilevel spondylotic changes lumbar spine as described above. Electronically signed by: Ross Vergara MD (12/24/2021 10:53 PM) [facility]
[2021-12-24] MEDS ORDERED: ONDA4TAB12 PO (23:28)
[2021-12-25] VITALS: BP 119/58
== END 2021-12-25 00:25 ==
LOC: ER 21:27
DX: G89.29 Other chronic pain (principal); M54.50 Low back pain, unspecified; R11.2 Nausea with vomiting, unspecified; I12.0 Hypertensive chronic kidney disease with stage 5 chronic kidney disease or end stage renal disease; E11.22 Type 2 diabetes mellitus with diabetic chronic kidney disease; N18.6 End stage renal disease; K21.9 Gastro-esophageal reflux disease without esophagitis; Z87.891 Personal history of nicotine dependence; Z90.49 Acquired absence of other specified parts of digestive tract; Z90.710 Acquired absence of both cervix and uterus
CPT/HCPCS: 36415; 72131; 80048; 83735; 85025; 96374; 96375; 99285; J2405; J3010; 99284-25

== ENCOUNTER → 2022-01-29 | Outpatient (CLI) | payer OTHER, MEDICAID ==
[~2022-01-29] MED LIST changes: +ONDA4TAB12 PO; +OXYM30SP25 NS
[2022-01-29 09:56] LABS: HEMATOCRIT 20.7 % (36.0-47.0)
[2022-01-29 10:42] LABS: HEMOGLOBIN 6.6 g/dL (12.0-15.5)
[2022-01-29 11:25] VITALS: BP 163/78
[2022-01-29 12:25] VITALS: BP 173/70
[2022-01-29 13:10] VITALS: BP 181/82
[2022-01-29 13:40] VITALS: BP 177/65
[2022-01-29 14:23] VITALS: BP 183/80
[2022-01-29 15:18] VITALS: BP 161/68
== END | disposition home or self-care (01) ==
LOC: OPS 09:04
PROVIDERS: ATTEND Internal Medicine Nephrology
DX: D64.9 Anemia, unspecified (principal); I13.2 Hypertensive heart and chronic kidney disease with heart failure and with stage 5 chronic kidney disease, or end stage renal disease; E11.22 Type 2 diabetes mellitus with diabetic chronic kidney disease; N18.6 End stage renal disease; I50.9 Heart failure, unspecified; K21.9 Gastro-esophageal reflux disease without esophagitis; E78.5 Hyperlipidemia, unspecified; E21.3 Hyperparathyroidism, unspecified; M06.9 Rheumatoid arthritis, unspecified; Z86.16 Personal history of COVID-19; Z99.2 Dependence on renal dialysis; Z90.710 Acquired absence of both cervix and uterus; Z90.49 Acquired absence of other specified parts of digestive tract; Z87.891 Personal history of nicotine dependence
CPT/HCPCS: 36415; 36430; 85014; 85018; 86850; 86900; 86901; 86920; P9016

== ENCOUNTER 2022-01-31 03:25 | Emergency (ER) | payer OTHER, MEDICAID ==
[~2022-01-31] VITALS: Ht 157.5 cm; Wt 81.8 kg
[~2022-01-31 03:25] MED LIST changes: -OXYM30SP25 NS
[2022-01-31] MEDS ORDERED: OXYMETAZOLINE 0.05% NASAL SPRAY 30ML BOTTLE. NS ONE (03:45)
[2022-01-31] MEDS ORDERED: fentaNYL PF VIAL 100 MCG/2 ML VIAL IVP ONE (03:45)
[2022-01-31 03:53] LABS: BASO % 1 % (0-3); EOS % 1 % (0-3); HEMATOCRIT 25.4 % (36.0-47.0); HEMOGLOBIN 8.3 g/dL (12.0-15.5); LYMPH # 0.4 x10^3/uL (1.0-4.8); LYMPH % 14 % (24-48); MEAN CORPUSCULAR HEMOGLOBIN 31 pg (25-35); MEAN CORPUSCULAR HGB CONC 33 g/dL (31-37); MEAN CORPUSCULAR VOLUME 95 fL (79-100); MONO # 0.4 x10^3/uL (0.0-1.1); MONO % 13 % (0-9); NEUT % 72 % (31-73); PLATELET COUNT 102 x10^3/uL (140-400); RED BLOOD COUNT 2.68 x10^6/uL (3.50-5.40); RED CELL DISTRIBUTION WIDTH 21.7 % (11.5-14.5); WHITE BLOOD COUNT 2.8 x10^3/uL (4.0-11.0)
[2022-01-31 04:10] LABS: CALCIUM 9.1 mg/dL (8.5-10.1); CREATININE 5.6 mg/dL (0.6-1.0); GFR 9.2; POTASSIUM 3.7 mmol/L (3.5-5.1)
[2022-01-31 04:14] LABS: PLT ESTIMATE DECREASED (ADEQUATE)
[2022-01-31 04:15] LABS: ALBUMIN 3.5 g/dL (3.4-5.0); ALBUMIN/GLOBULIN RATIO 0.6 (1.0-1.7); ANISOCYTOSIS MOD; HYPOCHROMIA SLIGHT; SPHEROCYTES OCC; TOTAL BILIRUBIN 0.9 mg/dL (0.2-1.0)
[2022-01-31 04:16] LABS: HELMET CELLS OCC; TARGET CELLS OCC
--- NOTE | 2022-01-31 04:44 | RAD ---
EXAM: XR CHEST 1V 01/31/2022 4:27 AM CLINICAL INDICATION: Epigastric COMPARISON: Chest 12/16/2021 TECHNIQUE: AP upright view the chest FINDINGS: Mild cardiomegaly. Calcifications in the thoracic aorta. The lungs are adequately expanded . Mild diffuse interstitial prominence. No consolidation, pleural effusion, or pneumothorax. IMPRESSION: Unchanged cardiomegaly and mild diffuse interstitial prominence. No new abnormality. Electronically signed by: Evelia Gutierrez MD (01/31/2022 4:42 AM) [facility]
--- NOTE | 2022-01-31 04:48 | RAD ---
EXAM: CT head without contrast INDICATION: Epigastric pain, end-stage renal disease. COMPARISON: CT head 04/06/2021 TECHNIQUE: Axial CT imaging through the head without intravenous contrast. Sagittal and coronal refor mats were obtained. One or more of the following individualized dose reduction techniques were utilized for this examinat ion: 1. Automated exposure control 2. Adjustment of the mA and/or kV according to patient size 3. Use of iterative reconstruction technique. FINDINGS: No intracranial hemorrhage, acute infarct, or mass lesion. Ellis-white matter differentiation is maint ained. There is physiologic mineralization in the basal ganglia. Ventricles and sulci are mildly enla rged. The skull and scalp are intact. Globes and orbits are intact. Paranasal sinuses and mastoid air cells are clear. IMPRESSION: No acute intracranial abnormality. Electronically signed by: Evelia Gutierrez MD (01/31/2022 4:45 AM) [facility]
--- NOTE | 2022-01-31 04:56 | PHYS DOC ---
Past Medical History Past Medical History: Diabetes-Type II, GERD, GI Bleed, Hypertension, Kidney Stone, Pancreatitis, Pneumonia, P.U.D., Renal Failure, Other Additional Past Medical Histor: ESRD, KIDNEY STONES, PANCREATITIS, Past Surgical History: Cholecystectomy, Hysterectomy, Other Additional Past Surgical Histo: fistula LUE Smoking Status: Never Smoker Alcohol Use: Occasionally Additional Information: LAST DRINK 1 WEEK AGO Drug Use: None Adult General Chief Complaint Chief Complaint: NOSEBLEED HPI HPI The patient is a comorbid 66-year-old female with history of hypertension, hyperlipidemia, diabetes, end-stage renal disease on hemodialysis TTSat, hepatitis C and previous alcohol abuse in remission, chronic abdominal and back pain, among other comorbidities. She is frequently seen and admitted at this facility for a variety of complaints. She reports compliance with her dialysis; last went to dialysis yesterday. Ms. Fernandez presents for evaluation of 3 concerns. First, she notes some intermittent nosebleeds over the course of the last week. She is not having any problems with nosebleed at present. Yesterday she had an outpatient blood transfusion, she reports due to nosebleed but more likely due to chronically low hemoglobin in the setting of end-stage renal disease. Second, she notes focal, sharp, nonradiating epigastric pain present for the past 2 days. States discomfort is quite similar to that which she has had in the past. Third, she notes a headache, generalized, gradual onset, also present for the past 2 days. No fevers, upper respiratory congestion/rhinorrhea, cough, sore throat, derek rtness of breath or chest pain of any kind, right-sided or lower abdominal pain of any kind, flank pain, midline back pain, dysuria, hematuria, polyuria or oliguria, changes in bowel habits, pain or swelling to arms or legs. Vital signs are appropriate here and the patient is in no acute distress. Review of Systems Review of Systems A 12 point review of systems was completed and was negative except where noted in HPI above. Current Medications Current Medications Current Medications Medications (Trade) Dose Ordered Sig/Kimberly Start Time Stop Time Status Last Admin Dose Admin Fentanyl Citrate (Fentanyl 2ml Vial) 50 mcg 1X ONCE 01/31/22 03:45 01/31/22 03:46 DC 01/31/22 03:54 50 MCG Oxymetazoline HCl (Afrin) 2 spray 1X ONCE 01/31/22 03:45 01/31/22 03:46 DC 01/31/22 03:54 2 SPRAY Allergies Allergies Allergies Coded Allergies Type Severity Reaction Last Updated Verified No Known Drug Allergies 01/29/22 No Physical Exam Physical Exam 66-year-old female appearing nontoxic and in no acute distress. Head is normocephalic and atraumatic. Neck is supple and nontender. Oropharynx is moist. Lungs are clear to auscultation at all stations. There is a normal S1 and S2 without rubs or gallops and capillary refill is appropriate, less than 2 seconds globally. Abdomen is soft, nondistended with mild focal epigastric tenderness to palpation without rebound or guarding. No right-sided or lower quadrant abdominal tenderness to palpation. Skin is warm and dry without cyanosis, clubbing or edema. Psychiatrically, the patient demonstrates appropriate mood and affect and is alert. Evaluation of extremities reveals BUEs and BLEs neurovascularly intact distally with strength 5 out of 5, sensation intact light touch in all nerve distributions, radial, DP and PT pulses 2+ bilaterally, capillary refill less than 2 seconds, hands and feet warm and well-perfused. No dependent peripheral edema distally. No calf tenderness or swelling bilaterally. Homans test is negative bilaterally. Neurologically, cranial nerves II through XII are intact and there are no lateralizing deficits seen. Speech is normal. Language is normal. Coordination is normal. There is no dysmetria iisujr-ek-caou or wytd-df-lfwu bilaterally. Strength is 5 out of 5 at all joints of bilateral upper and lower extremities. Sensation is intact light touch in bilateral upper and lower extremities. Patient ambulates with a narrow, steady, non-ataxic gait here in the emergency department and is alert and oriented x4. Current Patient Data Vital Signs Vital Signs Date Time Temp Pulse Resp B/P (MAP) Pulse Ox O2 Delivery O2 Flow Rate FiO2 01/31/22 03:54 21 100 Room Air 01/31/22 03:25 98.2 65 167/80 (109) 98.2 Lab Values Laboratory Tests Test 01/31/22 03:46 White Blood Count 2.8 x10^3/uL (4.0-11.0) L Red Blood Count 2.68 x10^6/uL (3.50-5.40) L Hemoglobin 8.3 g/dL (12.0-15.5) L Hematocrit 25.4 % (36.0-47.0) L Mean Corpuscular Volume 95 fL (79-100) Mean Corpuscular Hemoglobin 31 pg (25-35) Mean Corpuscular Hemoglobin Concent 33 g/dL (31-37) Red Cell Distribution Width 21.7 % (11.5-14.5) H Platelet Count 102 x10^3/uL (140-400) L Neutrophils (%) (Auto) 72 % (31-73) Lymphocytes (%) (Auto) 14 % (24-48) L Monocytes (%) (Auto) 13 % (0-9) H Eosinophils (%) (Auto) 1 % (0-3) Basophils (%) (Auto) 1 % (0-3) Neutrophils # (Auto) 2.0 x10^3/uL (1.8-7.7) Lymphocytes # (Auto) 0.4 x10^3/uL (1.0-4.8) L Monocytes # (Auto) 0.4 x10^3/uL (0.0-1.1) Eosinophils # (Auto) 0.0 x10^3/uL (0.0-0.7) Basophils # (Auto) 0.0 x10^3/uL (0.0-0.2) Platelet Estimate Decreased (ADEQUATE) Hypochromasia Slight Anisocytosis Mod Spherocytes Occ Target Cells Occ Helmet Cells Occ Sodium Level 132 mmol/L (136-145) L Potassium Level 3.7 mmol/L (3.5-5.1) Chloride Level 92 mmol/L (98-107) L Carbon Dioxide Level 28 mmol/L (21-32) Anion Gap 12 (6-14) Blood Urea Nitrogen 29 mg/dL (7-20) H Creatinine 5.6 mg/dL (0.6-1.0) H Estimated GFR (Cockcroft-Gault) 9.2 BUN/Creatinine Ratio 5 (6-20) L Glucose Level 109 mg/dL (70-99) H Calcium Level 9.1 mg/dL (8.5-10.1) Total Bilirubin 0.9 mg/dL (0.2-1.0) Aspartate Amino Transferase (AST) 35 U/L (15-37) Alanine Aminotransferase (ALT) 13 U/L (14-59) L Alkaline Phosphatase 134 U/L (46-116) H Troponin I High Sensitivity 21 ng/L (4-50) Total Protein 9.0 g/dL (6.4-8.2) H Albumin 3.5 g/dL (3.4-5.0) Albumin/Globulin Ratio 0.6 (1.0-1.7) L Lipase 109 U/L (73-393) Ethyl Alcohol Level < 10 mg/dL (0-10) Laboratory Tests 01/31/22 03:46 Laboratory Tests 01/31/22 03:46 EKG EKG Sinus rhythm, rate 95, no acute ST elevation or depression, occasional PACs, nonischemic tracing, EP interpretation. [] Radiology/Procedures Radiology/Procedures EXAM: CT head without contrast INDICATION: Epigastric pain, end-stage renal disease. COMPARISON: CT head 04/06/2021 TECHNIQUE: Axial CT imaging through the head without intravenous contrast. Sagittal and coronal reformats were obtained. One or more of the following individualized dose reduction techniques were utilized for this examination: 1. Automated exposure control 2. Adjustment of the mA and/or kV according to patient size 3. Use of iterative reconstruction technique. FINDINGS: No intracranial hemorrhage, acute infarct, or mass lesion. Ellis-white matter differentiation is maintained. There is physiologic mineralization in the basal ganglia. Ventricles and sulci are mildly enlarged. The skull and scalp are intact. Globes and orbits are intact. Paranasal sinuses and mastoid air cells are clear. IMPRESSION: No acute intracranial abnormality. Electronically signed by: Evelia Gutierrez MD (01/31/2022 4:45 AM) [facility] DICTATED and SIGNED BY: EVELIA GUTIERREZ MD DATE: 01/31/22 0442 Exam: CT abdomen/pelvis without intravenous contrast Indication: Epigastric pain, end-stage renal disease Comparison: CT abdomen pelvis 12/16/2020 Technique: Helical CT imaging performed of the abdomen and pelvis without the use of intravenous contrast. Sagittal and coronal reformats were obtained. One or more of the following individualized dose reduction techniques were utilized for this examination: 1. Automated exposure control 2. Adjustment of the mA and/or kV according to patient size 3. Use of iterative reconstruction technique. Findings: Inherently limited evaluation without intravenous contrast. Lower chest: Lung bases are clear. The heart is at the upper limit of normal in size. There are mitral annulus calcifications. There are calcified granulomas in the left lower lobe. Trace left pleural effusion. Liver: Unchanged mildly nodular contour of the liver. There calcified hepatic granulomas. Gallbladder/Biliary Tree: The gallbladder is surgically absent. Pancreas: Normal. Spleen: There are calcified splenic granulomas. No splenomegaly. Adrenal Glands: Normal. Kidneys/Ureters/Bladder: Kidneys are mildly atrophic. There is bilateral nephrolithiasis. No hydronephrosis. There are unchanged calcifications along the mid right ureter. The bladder is decompressed. Reproductive Organs: Unremarkable. Stomach, small bowel, and colon: Stomach, small bowel, and colon are normal. There are surgical clips in the epigastric region along the distal gastric body. No small bowel obstruction. The colon is unremarkable. Vasculature: No aortic aneurysm. Mild calcified aortic atherosclerosis. Lymph Nodes: No lymphadenopathy. Peritoneum and retroperitoneum: Trace ascites. No free air. Bones: There is a femoral right intramedullary nail, incompletely visualized. Old right superior pubic ramus fracture. The bones are demineralized. There is no acute fracture. Mild degenerative disc disease. Miscellaneous: Anasarca. IMPRESSION: 1. Unchanged bilateral nephrolithiasis. No hydronephrosis. 2. Mildly nodular surface the liver, correlate for cirrhosis. 3. Trace ascites. Electronically signed by: Evelia Gutierrez MD (01/31/2022 5:02 AM) [facility] [facility] DICTATED and SIGNED BY: EVELIA GUTIERREZ MD DATE: 01/31/22448 EXAM: XR CHEST 1V 01/31/2022 4:27 AM CLINICAL INDICATION: Epigastric COMPARISON: Chest 12/16/2021 TECHNIQUE: AP upright view the chest FINDINGS: Mild cardiomegaly. Calcifications in the thoracic aorta. The lungs are adequately expanded. Mild diffuse interstitial prominence. No consolidation, pleural effusion, or pneumothorax. IMPRESSION: Unchanged cardiomegaly and mild diffuse interstitial prominence. No new abnormality. Electronically signed by: Evelia Gutierrez MD (01/31/2022 4:42 AM) [employer] DICTATED and SIGNED BY: EVELIA GUTIERREZ MD DATE: 01/31/22439 Course & Med Decision Making Course & Med Decision Making To address patient's reported intermittent nosebleed, will try a couple of sprays of Afrin to promote continued hemostasis and will plan to send home with same. To address abdominal discomfort, will check labs and EKG and noncontrast CT scan of the abdomen and pelvis, though suspect that this is simply the patient's chronic pain. To address headache, will give a dose of fentanyl and will obtain a CT scan of the head. Disposition pending all of the above. 0512: Patient sleeping comfortably in no distress on reassessment. [place], she states her presenting headache and abdominal discomfort are greatly improved. Labs and imaging are generally baseline for this patient and unrevealing of any evidence of acute process. Will send patient home with Afrin for use as needed for nosebleed. She is to go to dialysis tomorrow as scheduled, to follow-up closely with primary in the next 2 to 4 days and understands that if she feels worse instead of better or develops other new symptoms of concern that she derek uld return to the emergency department immediately for reevaluation. All questions are answered. Dragon Disclaimer Dragon Disclaimer This electronic medical record was generated, in whole or in part, using a voice recognition dictation system. Departure Departure Impression: Primary Impression: Acute headache Additional Impression: Abdominal pain, acute, epigastric Disposition: 01 HOME / SELF CARE / HOMELESS Condition: IMPROVED Referrals: Ashley LIAO MD (PCP) Patient Instructions: Chronic Pain, Nosebleed Additional Instructions: Follow-up very closely with your primary care doctor in the office in the next 2 to 4 days for reevaluation of your symptoms and a discussion of next best steps in care. Make sure to go to dialysis as scheduled. If you have recurrence of your nosebleed, blow your nose to remove clot and then spray 2 big sprays of Afrin into the nostril that is bleeding. Then, apply good strong direct pressure by pinching your nose just underneath the bridge of your nose for a full 20 minutes. If you are still having bleeding, repeat the same entire procedure at least one more time. Return to the emergency department right away for worsening symptoms of any kind or with any other new symptoms of concern. Scripts Oxymetazoline Hcl (AFRIN) 30 Ml [place] 2 SPR NS TID PRN for nosebleed, #1 SPRAY Prov: ALMA HONEYCUTT MD 01/31/22 Problem Qualifiers Primary Impression: Acute headache Headache type: unspecified Intractability: not intractable Qualified Codes: R51.9 - Headache, unspecified ALMA HONEYCUTT MD Jan 31, 2022 04:56
--- NOTE | 2022-01-31 05:04 | RAD ---
Exam: CT abdomen/pelvis without intravenous contrast Indication: Epigastric pain, end-stage renal disease Comparison: CT abdomen pelvis 12/16/2020 Technique: Helical CT imaging performed of the abdomen and pelvis without the use of intravenous cont rast. Sagittal and coronal reformats were obtained. One or more of the following individualized dose reduction techniques were utilized for this examinat ion: 1. Automated exposure control 2. Adjustment of the mA and/or kV according to patient size 3. Use of iterative reconstruction technique. Findings: Inherently limited evaluation without intravenous contrast. Lower chest: Lung bases are clear. The heart is at the upper limit of normal in size. There are glynn l annulus calcifications. There are calcified granulomas in the left lower lobe. Trace left pleural e ffusion. Liver: Unchanged mildly nodular contour of the liver. There calcified hepatic granulomas. Gallbladder/Biliary Tree: The gallbladder is surgically absent. Pancreas: Normal. Spleen: There are calcified splenic granulomas. No splenomegaly. Adrenal Glands: Normal. Kidneys/Ureters/Bladder: Kidneys are mildly atrophic. There is bilateral nephrolithiasis. No hydronep hrosis. There are unchanged calcifications along the mid right ureter. The bladder is decompressed. Reproductive Organs: Unremarkable. Stomach, small bowel, and colon: Stomach, small bowel, and colon are normal. There are surgical clips in the epigastric region along the distal gastric body. No small bowel obstr uction. The colon is unremarkable. Vasculature: No aortic aneurysm. Mild calcified aortic atherosclerosis. Lymph Nodes: No lymphadenopathy. Peritoneum and retroperitoneum: Trace ascites. No free air. Bones: There is a femoral right intramedullary nail, incompletely visualized. Old right superior pubi c ramus fracture. The bones are demineralized. There is no acute fracture. Mild degenerative disc dis ease. Miscellaneous: Anasarca. IMPRESSION: 1. Unchanged bilateral nephrolithiasis. No hydronephrosis. 2. Mildly nodular surface the liver, correlate for cirrhosis. 3. Trace ascites. Electronically signed by: Evelia Gutierrez MD (01/31/2022 5:02 AM) [facility]
[2022-01-31 05:15] VITALS: BP 159/75
[2022-01-31] MEDS ORDERED: OXYM30SP25 NS (05:17)
--- NOTE | 2022-01-31 05:41 | EKG ---
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
== END 2022-01-31 06:23 | disposition home or self-care (01) ==
LOC: ER 03:25
DX: R51.9 Headache, unspecified (principal); R10.13 Epigastric pain; K21.9 Gastro-esophageal reflux disease without esophagitis; E11.22 Type 2 diabetes mellitus with diabetic chronic kidney disease; N18.6 End stage renal disease; I10 Essential (primary) hypertension; Z87.442 Personal history of urinary calculi
CPT/HCPCS: 36415; 70450; 71045; 74176; 80053; 83690; 84484; 85025; 93005; 96374; 99285; G0480; J3010